=== PATIENT | female | born 1940 | race Caucasian/White ===

== ENCOUNTER 2023-03-06 11:00 | Outpatient (OUT) | payer MEDICARE, SELFPAY ==
--- NOTE | 2023-03-06 11:04 | MM_ITS ---
Patient Name: EVER BRWEER MR#: [id number] : 1940 Exam Date: 03/06/2023 Ordering Doctor: DR Branden Du D.O. RADIOLOGY REPORT PROCEDURE: MM TOMOSYNTHESIS SCREENING BI COMPARISON: MG MAMM SCREEN 3D VINNY CAD, 02/08/2022. MG MAMM SCREEN 3D VINNY CAD, 01/03/2021. MG MAMM SCREEN VINNY W CAD, 12/30/2019. MG MAMM VINNY SCRN W CAD DIG, 11/21/2012. INDICATIONS: Screening Calculator Name NCI Breast Cancer Risk Assessment Tool 5 Year Breast Cancer Risk 1.30% Lifetime Breast Cancer Risk 1.70% Personal Breast Cancer No Personal Ovarian Cancer No Treatments bowel resection Family Cancers None LOCATION: [facility] BREAST COMPOSITION: Scattered areas fibroglandular density. FINDINGS: DIAGNOSTIC CATEGORY 2--BENIGN FINDING: RIGHT BREAST: No significant suspicious finding. Scattered benign-appearing calcifications are present. No significant change has occurred. LEFT BREAST: No significant suspicious finding. Scattered benign-appearing calcifications are present. No significant change has occurred. RECOMMENDATIONS: ROUTINE MAMMOGRAM AND CLINICAL EVALUATION IN 12 MONTHS. PLEASE NOTE: A NORMAL MAMMOGRAM DOES NOT EXCLUDE THE POSSIBILITY OF BREAST CANCER. A CLINICALLY SUSPICIOUS PALPABLE LUMP SHOULD BE BIOPSIED. Dictated by: Jae Palmer M.D. on 03/06/2023 at 14:35 Approved by: Jae Palmer M.D. on 03/06/2023 at 14:39
== END 2023-03-06 11:01 | disposition home or self-care (01) ==
LOC: MAMMO 11:00
PROVIDERS: PCP Internal Medicine; Visit Provider Internal Medicine
DX: Z12.31 Encounter for screening mammogram for malignant neoplasm of breast (principal)
CPT/HCPCS: 77063; 77067

== ENCOUNTER 2023-03-26 12:15 | Outpatient (OUT) | payer MEDICARE, SELFPAY ==
--- OUTSIDE RECORDS SUMMARY | 2023-03-26 12:21 | XMS_ITS | CCD ---
Author Name Unknown Address [address] [place] [address] Organization [facility] Care Team Providers Care Specimen Processor Name Role Phone Unavailable Primary Care Provider Peter FRAGA, DR OROZCO Primary Care Unavailable MAUREEN ., ALBERTO Admitting Unavailable MAUREEN ., ALBERTO Attending Unavailable MAUREEN ., ALBERTO Consulting Unavailable FLORIAN, DR OROZCO Admitting Unavailable FLORIAN, DR OROZCO Attending Unavailable FLORIAN, DR OROZCO Consulting Unavailable FLORIAN, DR OROZCO Primary Care Unavailable CHARLES, DR JOAQUIN Canales Consulting Unavailable FLORIAN, DR OROZCO Admitting Unavailable FLORIAN, DR OROZCO Attending Unavailable FLORIAN, DR OROZCO Consulting Unavailable FLORIAN, DR OROZCO Primary Care Unavailable [place], DR KALPANA Phelps Consulting Unavailable PROVIDER, UNKNOWN Attending Unavailable PROVIDER, UNKNOWN Admitting Unavailable Florian, Branden Unavailable Allergies Allergy Classification Reported Allergen(s) Allergy Type Date of Onset Reaction(s) Facility (1 source) Penicillins Drug allergy (disorder) [address] [facility] Repository (3 sources) Substance with penicillin structure and antibacterial mechanism of action (substance) Drug allergy 4 Unknown [facility] Other Medications Current Medications Medication Drug Class(es) Dates Sig (Normalized) Sig (Original) famotidine 40 mg oral tablet (1 source) Histamine-2 Receptor Antagonist Start: 03-14-2023 take 1 tablet by mouth every twenty-four hours Famotidine 40 MG 1 tablet at bedtime Orally Once a day for 30 days Feb, Active losartan potassium 50 mg oral tablet (14 sources) Angiotensin 2 Receptor Niharika Start: 05-22-2022 take 1 tablet by mouth twice daily Losartan Potassium 50 MG 1 tablet Orally twice daily for 30 days Apr, Active Start: 05-22-2022 take 1 tablet by perez th every twenty-four hours Losartan Potassium 50 MG 1 tablet Orally qd Apr, Active Start: 05-22-2022 take 1 tablet by mouth twice d aily Losartan Potassium 25 MG 1 tablet Orally twice daily Apr, Active Start: 05-22-2022 take 1 tablet by perez th every twenty-four hours Losartan Potassium 25 MG 1 tablet Orally Once a day for 30 days Apr, Active meloxicam 15 mg oral tablet (6 sources) Nonsteroidal Anti-inflammatory Drug Start: 08-27-2022 take 1 tablet by mouth every twenty-four hours Meloxicam 15 MG 1 tablet Orally Once a day Aug, Active omeprazole 40 mg delayed release oral capsule (2 sources) Proton Pump Inhibitor Start: 02-08-2023 take 1 capsule by mouth once daily Omeprazole 40 MG 1 capsule 30 minutes before morning meal Orally Once a day for 30 days Jan, Active ondansetron 4 mg disintegrating oral tablet (14 sources) Serotonin-3 Receptor Antagonist Start: 05-04-2022 take 1 tablet by mouth every six hours as needed for nausea Ondansetron 4 MG 1Tablet Orally Every 6 hours PRN nausea for 5 days Apr, Active sulfamethoxazole 800 mg / trimethoprim 160 mg oral tablet (2 sources) Dihydrofolate Reductase Inhibitor Antibacterial, Sulfonamide Antimicrobial Start: 02-19-2023 take 1 tablet by mouth every twelve hours Sulfamethoxazol e-Trimethoprim 800-160 MG 1 tablet Orally Twice a day for 5 days Jan, Active Problems Active Problems Problem Classification Problem Date Documented Da te Episodic/Chronic Abdominal pain (14 sources) Left lower quadrant pain; Translations: [Left lower quadrant pain] Episodic Esophageal disorders (3 sources) Gastro-esophageal reflux disease with esophagitis; Translations: [Gastroesophageal reflux disease with esophagitis without hemorrhage] Chronic Essential hypertension (20 sources) Essential (primary) hypertension; Translations: [Essential hypertension] Onset: 05-21-2022 Chronic Genitourinary symptoms and ill-defined conditions (16 sources) Dysuria; Translations: [Dysuria] Episodic Hypertension with complications and secondary hypertension (1 source) Hypertensive urgency ; Translations: [Hypertensive urgency] Chronic Menopausal disorders (14 sources) Decreased estrogen level; 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 Mycoses (14 sources) Tinea corporis; Translations: [Tinea corporis] Episodic Nausea and vomiting (1 source) Nausea Episodic Other aftercare (1 source) Other terminal block assembler (current) drug therapy; Translations: [OTH [facility]DC CURRENT DRUG THERAPY] Onset: 05-22-2022 Episodic Other and unspecified benign neoplasm (13 sources) Lipoma of lower limb; Translations: [Benign lipomatous neoplasm of skin and subcutaneous tissue of right leg] Episodic Other and unspecified benign neoplasm (1 source) Benign lipomatous neoplasm of skin and subcutaneous tissue of right leg; Translations: [Lipoma of right lower extremity] Episodic Other gastrointestinal disorders (14 sources) Personal history of other diseases of the digestive system; Translations: [History of small bowel obstruction] Episodic Other lower respiratory disease (7 sources) Solitary pulmonary nodule; Translations: [SOLITARY PULMONARY NODULE] Onset: 08-11-2021 Episodic Other lower respiratory disease (12 sources) Nodule of lung; Translations: [Solitary pulmonary nodule] Episodic Other screening for suspected conditions (not mental disorders or infectious disease) (19 sources) Encounter for screening mammogram for malignant neoplasm of breast; Translations: [Screening status] Onset: 02-08-2022 Episodic Other skin disorders (14 sources) Abdominal mass; Translations: [Localized swelling, mass and lump, trunk] Episodic Pleurisy; pneumothorax; pulmonary collapse (14 sources) Secondary spontaneous pneumothorax; Translations: [Secondary spontaneous pneumothorax] Episodic Residual codes; unclassified (14 sources) History of colectomy; Translations: [Acquired absence of other specified parts of digestive tract] Episodic Screening and history of mental health and substance abuse codes (1 source) Personal history of nicotine dependence; Translations: [PERSONAL HISTORY OF NICOTINE DEPEND] Onset: 05-22-2022 Episodic Spondylosis; intervertebral disc disorders; other back problems (8 sources) Lumbar spondylosis; Translations: [Spondylosis without myelopathy or radiculopathy, lumbar region] Chronic Substance-related disorders (17 sources) Tobacco user; Translations: [Nicotine dependence, cigarettes, 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 Past or Other Problems Problem Classification Problem Date Documented Da te Episodic/Chronic Esophageal disorders (14 sources) Esophageal disorders; Translations: [Gastroesophageal reflux disease with esophagitis without hemorrhage] Unclassified (14 sources) Acute bilateral low back pain without sciatica; Translations: [Acute bilateral low back pain without sciatica] Unclassified (1 source) Acute right-sided low back pain without sciatica M54.50 Viral infection (14 sources) Disease caused by 2019-nCoV; Translations: [COVID-19] Results Test Name Value Interpretation Reference Range Facility Urinalysis - DIPSTICKon 0 Appearance (U) clear [facility] Other Bilirubin Ql (U) Negative [employer] Other Color (U) light yellow [facility] Other Glucose Ql (U) Negative [facility] Other Hemoglobin Ql (U) Negative [employer] Other Ketones Ql (U) Negative [facility] Other Leukocyte esterase Test strip Ql (U) Negative [facility] Other Nitrite Ql (U) Negative [facility] Other pH (U) 5.0 [pH] [facility] Other Protein Ql (U) Negative [facility] Other Specific gravity (U) [Rel density] 1.005 [facility] Other Urobilinogen (U) [Mass/Vol] 0.5 mg/dL [facility] Other Urinalysis - DIPSTICK [facility] Other CBC AUTO DIFFon 05-21-2022 BASO # 0.0 103/ul Normal 0.0-0.[address] [facility] Comment on above: Performed By: #### C BC #### [facility] [address] [place] [address] Dr. Arlyn Chan Basophils/100 WBC (Bld) 0.6 % Normal 0.2-2.[address] [facility] Comment on above: Performed By: #### C BC #### [facility] [address] [place] [address] Dr. Arlyn Chan EO # 0.1 103/ul Normal 0.0-0.[address] [facility] Comment on above: Performed By: #### C BC #### [facility] [address] [place] [address] Dr. Arlyn Chan Eosinophils/100 WBC (Bld) 1.1 % Normal 0.9-7.0 [facility] Comment on above: Performed By: #### C BC #### [facility] [address] [place] [address] Dr. Arlyn Chan Erythrocyte distribution width (RBC) [Ratio] 13.6 % Normal 11.0-15.0 [facility] Comment on above: Performed By: #### C BC #### [facility] [address] [place] [address] Dr. Arlyn Chan Hematocrit (Bld) [Volume fraction] 44.3 % Normal 36.0-48.0 [facility] Comment on above: Performed By: #### C BC #### [facility] [address] [place] [address] Dr. Arlyn Chan Hemoglobin (Bld) [Mass/Vol] 14.8 g/dL Normal 12.0-16.0 [facility] Comment on above: Performed By: #### C BC #### [facility] [address] [place] [address] Dr. Arlyn Chan IG # 0.00 10e3/ul Normal 0.00-0.03 [facility] Comment on above: Performed By: #### C BC #### [facility] [address] [place] [address] Dr. Arlyn Chan IG % 0.0 % Normal 0.0-0.[address] [facility] Comment on above: Performed By: #### C BC #### [facility] [address] [place] [address] Dr. Arlyn Chan LYMPH # 1.7 103/ul Normal 1.2-3.[address] [facility] Comment on above: Performed By: #### C BC #### [facility] [address] [place] [address] Dr. Arlyn Chan Lymphocytes/100 WBC (Bld) 31.1 % Normal 20.5-60.[address] [facility] Comment on above: Performed By: #### C BC #### [facility] [address] [place] [address] Dr. Arlyn Chan MANUAL DIFF REQ NO Normal [facility] Comment on above: Performed By: #### C BC #### [facility] [address] [place] [address] Dr. Arlyn Chan MCH (RBC) [Entitic mass] 31.9 pg Normal 26.7-34.0 [facility] Comment on above: Performed By: #### C BC #### [facility] [address] [place] [address] Dr. Arlyn Chan MCHC (RBC) [Mass/Vol] 33.4 g/dL Normal 29.9-35.[address] [facility] Comment on above: Performed By: #### C BC #### [facility] [address] [place] [address] Dr. Arlyn Chan MCV (RBC) [Entitic vol] 95.5 fL Normal 81.0-99.0 [facility] Comment on above: Performed By: #### C BC #### [facility] [address] [place] [address] Dr. Arlyn Chan MONO # 0.5 103/ul Normal 0.3-0.8 [facility] Comment on above: Performed By: #### C BC #### [facility] [address] [place] [address] Dr. Arlyn Chan Monocytes/100 WBC (Bld) 8.8 % Normal 1.7-12.0 [facility] Comment on above: Performed By: #### C BC #### [facility] [address] [place] [address] Dr. Arlyn Chan NEUT # 3.1 103/ul Normal 1.4-6.[address] [facility] Comment on above: Performed By: #### C BC #### [facility] [address] [place] [address] Dr. Arlyn Chan Neutrophils/100 WBC (Bld) 58.4 % Normal 43.0-75.0 [facility] Comment on above: Performed By: #### C BC #### [facility] [address] [place] [address] Dr. Arlyn Chan Platelet mean volume (Bld) [Entitic vol] 10.0 fL Normal 9.5-13.5 [facility] Comment on above: Performed By: #### C BC #### [facility] [address] [place] [address] Dr. Arlyn Chan PLT 242 103/ul Normal 150-450 [facility] Comment on above: Performed By: #### C BC #### [facility] [address] [place] [address] Dr. Arlyn Chan RBC 4.64 106/ul Normal 4.20-5.40 [facility] Comment on above: Performed By: #### C BC #### [facility] [address] [place] [address] Dr. Arlyn Chan WBC 5.4 103/ul Normal 4.0-11.0 [facility] Comment on above: Performed By: #### C BC #### [facility] [address] [place] [address] Dr. Arlyn Chan PROF CHEM 8 (BAS METB)on Anion gap [Moles/Vol] 13.9 mmol/L Normal [facility] Comment on above: Performed By: #### H YURI, BMP #### [facility] [address] [place] [address] Dr. Arlyn Chan Calcium [Mass/Vol] 9.4 mg/dL Normal 8.5-10.1 [facility] Comment on above: Performed By: #### H YURI, BMP #### [facility] [address] [place] [address] Dr. Arlyn Chan Chloride [Moles/Vol] 105 mmol/L Normal 98-107 [facility] Comment on above: Performed By: #### H YURI, BMP #### [facility] [address] [place] [address] Dr. Arlyn Chan CO2 [Moles/Vol] 24.3 mmol/L Normal 21.0-32.0 [facility] Comment on above: Performed By: #### H YURI, BMP #### [facility] [address] [address] [address] Arlyn Chan Creatinine [Mass/Vol] 0.76 mg/dL Normal 0.55-1.02 [facility] Comment on above: Performed By: #### H STROPN, BMP #### [facility] [address] [address] [address] Arlyn Chan EGFR-AF TURKMEN >60 Normal >=60 [facility] Comment on above: Performed By: #### H STROPN, BMP #### [facility] [address] [address] [address] Arlyn Chan EGFR-NON AF TURKMEN >60 Normal >=60 [facility] Comment on above: Performed By: #### H STROPN, BMP #### [facility] [address] [address] [address] Arlyn Chan Glucose [Mass/Vol] 96 mg/dL Normal 74-106 [facility] Comment on above: Performed By: #### H STROPN, BMP #### [facility] [address] [address] [address] Arlyn Chan Potassium [Moles/Vol] 4.2 mmol/L Normal 3.5-5.1 [facility] Comment on above: Performed By: #### H STROPN, BMP #### [facility] [address] [place] [address] Dr. Arlyn Chan Sodium [Moles/Vol] 139 mmol/L Normal 136-145 [facility] Comment on above: Performed By: #### H STROPN, BMP #### [facility] [address] [address] [address] Arlyn Chan Urea nitrogen [Mass/Vol] 21.0 mg/dL Critically high 7.0-18.0 [facility] Comment on above: Performed By: #### H STROPN, BMP #### [facility] [address] [address] [address] Arlyn Chan Urea nitrogen/Creatinine [Mass ratio] 27.6 mg/mg Normal [facility] Comment on above: Performed By: #### H STROPN, BMP #### [facility] [address] [address] [address] Arlyn Chan Progress Noteson 05-21-2022 Enterprise [employer] Manager Authentication Interface Message Text EMERGENCY TRIAGE, TREAT AND TRANSPORT (ET3) DOCUMENTATION OF TELEHEALTH VISIT Date / Time: 05/21/2022944 Name: Genny Barboza : 1940 SSN: (Not on file) EMS Agency: [facility] [x] Verbal consent obtained [] Implied consent - patient with potential emergency medical condition requiring assessment of capacity to refuse treatment and/or transport VITAL SIGNS: see flowsheet documentation Reason for Telehealth Visit: Chief Complaint Patient presents with Headache Hypertension History of Present Illness: This is a pleasant 81-year-old female who denies any prior past medical history. Patient states that over the weekend she noticed that her blood pressure was elevated with systolic readings in the 160s. Today she began having headache, nausea and noted her blood pressure to be in the 180 range. Prior to these events she denies any history of hypertension and has not been on medications other than vitamins. She denies any fall or hitting her head. She denies any change in vision, dizziness, difficulty speaking, numbness/tingling in the arms or legs. Additional pertinent PMHx, SocHx, FamHx: Past medical history: None Social history: Lives with who recently had a cardiac event Review of Systems: Denies the following: neck pain, back pain, dizziness, lightheadedness, cough, difficulty breathing, fever, nausea/vomiting, dysuria, leg pain or swelling, weakness. No recent falls or injury. Exam: General: Awake, no distress ENT: normocephalic, atraumatic Pulmonary: No respiratory distress Cardiovascular: Well perfused Neurologic: Oriented to person, place, time and events. Moving all extremities equally. No difficulty with speaking. Cognitively appears appropriate during our conversation Psychiatric: Appropriate. Good insight and judgement. Medical Decision Making: This is a pleasant 81-year-old female likely having hypertensive urgency since she is having headache, nausea, and elevated blood pressure. She was going to see a primary care provider, but with these symptoms at her age I recommend that she go to the emergency department as she may require laboratory evaluation and imaging the typically is not available at a park primary care physician's office. Patient declined using ambulance go to the ER, and her daughter who was present on scene will drive her the 4 minutes will take to get to the [place] [facility]. I advised her to call 911 if she is any change in her symptoms specifically of the sudden worsening of her headache, confusion, difficulty speaking, change in vision, weakness in her arms or legs. There are no further questions from the patient or the EMS team. Disposition Supported by Telehealth Assessment: ET3 transport decisions: Refused transport EMS Disposition Reported: Same ET3 Encounter Completed by: Sudheer Haro MD Normal [facility] TROPONIN, HIGH SENSITIVITYon 05-21-2022 HSTROP 5.9 pg/mL Normal 4.0-51.[address] [facility] Comment on above: Result Comment: CUT- OFF POINTS HAVE BEEN ESTABLISHED BASED ON THE FOURTH UNIVERSAL DEFINITIONS OF MYOCARDIAL INFARCTION. THE UPPER REFERENCE LIMIT (URL) OF TROPONIN, DEFINED THE 99TH PERCENTILE OF cTnI DISTRIBUTION IN A REFERENCE POPULATION, HAS BEEN CONFIRMED THE DECISION THRESHOLD FOR MA DIAGNOSIS. Performed By: #### H YURI, [facility] #### [facility] [address] [place] [address] Dr. Arlyn Chan MG MAMM SCREEN 3D VINNY CADon 02-08-2022 MG MAMM SCREEN 3D VINNY CAD Patient: GENNY BARBOZA Exam Date: 02/08/2022 : 1940 Gender:F Ordering : DR BRANDEN FRAGA D.O. Admission #: [id number] Family : Order #: [id number] CLICK HERE TO VIEW EXAM RADIOLOGY REPORT PROCEDURE: MAMMOGRAM SCREENING 3D BILATERAL CAD COMPARISON: MG MAMM SCREEN VINNY W CAD, 12/30/2019. MG MAMM SCREEN 3D VINNY CAD, 01/03/2021. INDICATIONS: Screening mammography Calculator Name NCI Breast Cancer Risk Assessment Tool 5 Year Breast Cancer Risk 1.30% Lifetime Breast Cancer Risk 1.90% Personal Breast Cancer No Personal Ovarian Cancer No Treatments bowel resection Family Cancers None LOCATION: [facility] BREAST COMPOSITION: Scattered areas fibroglandular density. FINDINGS: DIAGNOSTIC CATEGORY 2--BENIGN FINDING. NO CHANGE FROM COMPARISON. Scattered benign-appearing calcifications are present. Scattered benign-appearing lymph nodes are present. RIGHT BREAST: No significant suspicious finding. LEFT BREAST: No significant suspicious finding. RECOMMENDATIONS: ROUTINE MAMMOGRAM AND CLINICAL EVALUATION IN 12 MONTHS. PLEASE NOTE: A NORMAL MAMMOGRAM DOES NOT EXCLUDE THE POSSIBILITY OF BREAST CANCER. A CLINICALLY SUSPICIOUS PALPABLE LUMP SHOULD BE BIOPSIED. Dictated by: Kalpana Addison MD on 02/08/2022 at 14:02 Approved by: Kalpana Addison MD on 02/08/2022 at 14:06 Normal [facility] [address] CHEST WO CONon 08-11-2021 CT CHEST WO CON EXAMINATION: CT CHEST WO CON HISTORY: Solitary nodule of lung COMPARISON: CT chest 08/15/2020 TECHNIQUE: Axial, Coronal, and Sagittal images were created without the administration of IV contrast material. Dose reduction techniques were achieved by using automated exposure control and/or adjustment of mA and/or kV according to patient size and/or use of iterative reconstruction technique. FINDINGS: LUNGS: Mild emphysematous changes. Trace amount atelectasis within dependent lung bases. No suspicious nodules. Stable faint groundglass opacity in left lung apex likely scarring. Stable small fat filled hernia protruding into the posterior right lung base. PLEURA: No mass, effusion, or pneumothorax. VASCULATURE: No abnormality. GURPREET: No mass or adenopathy. MEDIASTINUM: No mass or adenopathy. CARDIAC: No enlargement or pericardial thickening. AORTA: No aneurysm or dissection. CHEST WALL: No mass or axillary adenopathy. BONES: No bone lesion or fracture. LIMITED ABDOMEN: Stable small hypodensity within posterior right hepatic lobe, likely cyst or hemangioma. Stable small left renal cyst. Limited images of the upper abdomen. OTHER: Negative. IMPRESSION: 1. Mild emphysematous changes. 2. No suspicious nodules or acute infiltrates. No additional follow-up recommended at this time. Electronically authenticated by: JOAQUIN SOTO Date: 2021-08-11 17:29 Normal [facility] Vital Signs Date Time Vital Sign Value Performing Clinician Facility 02-08-2023 13:30-0500 Body height 165.1 cm Branden Ribbon Other [facility] Other 02-08-2023 13:30-0500 Body mass index (BMI) [Ratio] 24.29 kg/m2 Branden Ribbon Other [facility] Other 02-08-2023 13:30-0500 Body weight 66.23 kg Branden Ribbon Other [facility] Other 02-08-2023 13:30-0500 Diastolic blood pressure 79 mm[Hg] Branden Ball Other [facility] Other 02-08-2023 13:30-0500 Respiratory rate 12 /min Branden Ball Other [facility] Other 02-08-2023 13:30-0500 Systolic blood pressure 128 mm[Hg] Branden Ball Other [facility] Other 08-27-2022 11:15-0400 Body height 165.1 cm Branden Ball Other [facility] Other 08-27-2022 11:15-0400 Body mass index (BMI) [Ratio] 24.06 kg/m2 Branden Ball Other [facility] Other 08-27-2022 11:15-0400 Body weight 65.59 kg Branden Ball Other [facility] Other 08-27-2022 11:15-0400 Diastolic blood pressure 83 mm[Hg] Branden Ball Other [facility] Other 08-27-2022 11:15-0400 Respiratory rate 12 /min Branden Ball Other [facility] Other 08-27-2022 11:15-0400 Systolic blood pressure 152 mm[Hg] Branden Ball Other [facility] Other 07-09-2022 15:00-0400 Body height 165.1 cm Branden Ball Other [facility] Other 07-09-2022 15:00-0400 Body mass index (BMI) [Ratio] 23.23 kg/m2 Branden Ball Other [facility] Other 07-09-2022 15:00-0400 Body weight 63.32 kg Branden Ball Other [facility] Other 07-09-2022 15:00-0400 Diastolic blood pressure 72 mm[Hg] Branden Ball Other [facility] Other 07-09-2022 15:00-0400 Respiratory rate 12 /min Branden Ball Other [facility] Other 07-09-2022 15:00-0400 Systolic blood pressure 134 mm[Hg] Branden Ball Other [facility] Other 05-21-2022 15:45-0500 Body height 165.1 cm Branden Ball Other [facility] Other 05-21-2022 15:45-0500 Body mass index (BMI) [Ratio] 24.56 kg/m2 Branden Ball Other [facility] Other 05-21-2022 15:45-0500 Body weight 66.95 kg Branden Ball Other [facility] Other 05-21-2022 15:45-0500 Diastolic blood pressure 82 mm[Hg] Branden Ball Other [facility] Other 05-21-2022 15:45-0500 Respiratory rate 12 /min Branden Ball Other [facility] Other 05-21-2022 15:45-0500 Systolic blood pressure 136 mm[Hg] Branden Ball Other [facility] Other 05-21-2022 09:45-0500 Diastolic blood pressure 92 mm[Hg] [address] 05-21-2022 09:45-0500 Heart rate 72 /[facility] 05-21-2022 09:45-0500 Respiratory rate 18 /min Et3 [facility] 05-21-2022 09:45-0500 SaO2% (BldA) [Mass fraction] 98 % Et3 [facility] 05-21-2022 09:45-0500 Systolic blood pressure 181 mm[Hg] Et3 [facility] Encounters Encounter Date Encounter Type Care Provider Facility Start: 03-14-2023 End: 03-14-2023 ambulatory Branden Fraga Other [facility] Other Start: 03-14-2023 Telephone encounter Branden Fraga [facility] Start: 02-19-2023 End: 02-19-2023 ambulatory Branden Fraga Other [facility] Other Start: 02-19-2023 Telephone encounter Branden Fraga [facility] Start: 02-08-2023 End: 02-08-2023 ambulatory Branden Fraga Other [employer] Other Start: 02-08-2023 Patient encounter procedure Branden Fraga [facility] Start: 09-20-2022 End: 09-20-2022 ambulatory Branden Fraga Other [employer] Other Start: 09-20-2022 Telephone encounter Branden Fraga [facility] Start: 08-27-2022 End: 08-27-2022 ambulatory Branden Fraga Other [employer] Other Start: 08-27-2022 Office outpatient vi sit 15 minutes Branden Fraga [facility] Start: 08-24-2022 End: 08-24-2022 ambulatory Branden Fraga Other [employer] Other Start: 08-24-2022 Nursing evaluation o f patient and report Branden Fraga [facility] Start: 07-09-2022 End: 07-09-2022 ambulatory Branden Fraga Other [employer] Other Start: 07-09-2022 Office outpatient vi sit 15 minutes Branden Florian [facility] Start: 06-12-2022 End: 06-12-2022 ambulatory Branden Fraga Other [employer] Other Start: 06-12-2022 Telephone encounter Branden Fraga [facility] Start: 06-11-2022 End: 06-11-2022 ambulatory Branden Fraga Other [employer] Other Start: 06-11-2022 Telephone encounter Branden Fraga [facility] Start: 05-22-2022 End: 05-22-2022 ambulatory Branden Fraga Other [employer] Other Start: 05-22-2022 Telephone encounter Branden Fraga [facility] Start: 05-21-2022 Office outpatient vi sit 15 minutes Branden Fraga [facility] Start: 05-21-2022 End: 05-23-[address] BRANDEN FRAGA Facility:[facility]1 Start: 05-21-2022 End: 05-21-2022 ambulatory [facility] Start: 05-21-2022 End: 05-21-2022 Emergency department [facility] Comment on above: Arrived Start: 05-04-2022 End: 05-04-2022 ambulatory Branden Fraga Other [employer] Other Start: 05-04-2022 Telephone encounter Branden Fraga [facility] Start: 05-03-2022 End: 05-03-2022 ambulatory Branden Fraga Other [employer] Other Start: 05-03-2022 Telephone encounter Branden Fraga [facility] Start: 02-08-2022 End: 02-09-[address] BRANDEN FRAGA Facility:[facility] Start: 08-11-2021 End: 08-12-[address] BRANDEN FRAGA Facility:[facility] Plan of Treatment Date Care Activity Detail Author Start: 12-23-2021 Influenza vaccination Influenza Vacc ine (#1) [facility] Start: 2005 Pneumococcal vaccination Pneum ococcal Vaccine(s) (65+ yrs) (1 - PCV) [facility] Start: 2005 Screening for osteoporosis Bone Dens itometry [facility] Start: 1990 Shingles (RZV) Vacci ne (1 of 2) Shingles (RZV) Vaccine (1 of 2) [facility] Start: 1958 Tetanus + diphtheria + acellular pertussis vaccine (product) Tdap Booster [facility] Start: [birth year]24-1941 COVID-19 Vaccine (#1) COVID-19 Vacci ne (#1) [facility] Start: 1940 Basic metabolic 2000 panel - Serum or Plasma Basic Metabolic Panel [facility] Immunizations Immunization Date Immunization Notes Care Provider Fa cili 12-13-2021 influenza virus vaccine, split virus (incl. purified surface antigen) Branden Fraga Other [employer] Other 12-14-2020 influenza virus vaccine, split virus (incl. purified surface antigen) Branden Fraga Other [employer] Other 12-04-2019 influenza virus vaccine, split virus (incl. purified surface antigen) Branden Fraga Other [employer] Other 12-16-2018 influenza virus vaccine, split virus (incl. purified surface antigen) Branden Fraga Other [employer] Other 01-15-2018 influenza virus vaccine, split virus (incl. purified surface antigen) Branden Fraga Other [employer] Other 01-12-2017 influenza virus vaccine, split virus (incl. purified surface antigen) Branden Fraga Other [employer] Other 12-27-2015 influenza virus vaccine, split virus (incl. purified surface antigen) Branden Fraga Other [employer] Other 01-28-2015 pneumococcal conjuga te vaccine, 13 valent Branden Fraga Other [employer] Other Payers Date Payer Category Payer Unknown SP/UNINSURED PEN DING FINANCIAL PROGRAM EVALUATION [id number] 2022-Present [phone] [address] [place] [address] Other [id number] 2022 Unknown [id number] 1959 Medicare [id number] 1959 Unknown [id number] 1940 Unknown [id number] 1940 Unknown [id number] 1940 Unknown [id number] 1940 Unknown [id number] Social History Date Type Detail Facility Tobacco smoking status [facility] Tobacco smoking consumption unknown [facility] Start: 1940 Sex Assigned At [facility] Sex Assigned At Sex Assigned At Bir th [employer] Other Clinical Notes 05-04-2022 to 03-14-2023 Note Date & Type Note Facility 03-14-2023 Evaluation note Encounter Date Diagnosis Assessment Notes Feb, Gastroesophageal reflux disease with esophagitis without hemorrhage (ICD-10 - K21.00) [employer] Other 11-28-2023 Evaluation note* Encounter Date Diagnosis Assessment Notes Treatment Notes Treatment Clinical Notes Jan, Dysuria (ICD-10 - R30.0) [employer] Other 11-17-2023 Evaluation note* Encounter Date Diagnosis Assessment Notes Treatment Notes Treatment Clinical Notes Jan, Medicare annual wellness visit, subsequent (ICD-10 - Z00.00) Personalized health advice was given to the beneficiary including a written plan for screenings discussed and provided. Advanced care planning reviewed and/or information given as requested. Additional counseling was provided here today in regards to, [ ]. The above visit was performed by [ ], under direct supervision of [ ]. Document reviewed and amended by provider signed below. Jan, Primary hypertension (ICD-10 - I10) This patient is instructed to consume a healthy, low-fat, low-salt diet. They are also encouraged to continue exercise to achieve/maintain a normal BMI. Jan, Lumbar spondylosis (ICD-10 - M47.816) The patient is instructed to avoid bending, twisting or lifting. They are to use intermittent heat and ice as needed. They may schedule a massage or gentle manipulation. They may safely use Tylenol as needed. Jan, Pulmonary nodule (ICD-10 - R91.1) Resolved after several scans No further scans necessary Jan, Gastroesophageal reflux disease with esophagitis without hemorrhage (ICD-10 - K21.00) Diet instructions: Smaller portions, avoid eating and laying flat, avoid eating or drinking prior to bedtime. Weight loss. INitiate PPI and take for 3mo after which can change to Pepcid Jan, Nicotine dependence, cigarettes, in remission (ICD-10 - F17.211) Contionued abstinence Jan, Screening mammogram for breast cancer (ICD-10 - Z12.31) Instructed patient on monthly SBE and yearly mammograms. [employer] Other 06-29-2023 Evaluation note* Encounter Date Diagnosis Assessment Notes Treatment Notes Treatment Clinical Notes Aug, Primary hypertension (ICD-10 - I10) [employer] Other 06-05-2023 Evaluation note* Encounter Date Diagnosis Assessment Notes Treatment Notes Treatment Clinical Notes Aug, Acute right-sided low back pain without sciatica (ICD-10 - M54.50) The patient is instructed to avoid bending, twisting or lifting. They are to use intermittent heat and ice as needed. They may schedule a massage or gentle manipulation. They may safely use Tylenol as needed. Discussed alternative treatment, including PT Call office w/ increased back pain, abdominal pain/bloating, N/V, change in bowel/bladder function or fever Aug, Lumbar spondylosis (ICD-10 - M47.816) Stretching daily, avoid lifting, bending or twisting. Aug, Primary hypertension (ICD-10 - I10) This patient is instructed to consume a healthy, low-fat, low-salt diet. They are also encouraged to continue exercise to achieve/maintain a normal BMI. Patient is instructed on home BP measurements: - rest for 5 minutes w/o talking- positioned w/ feet on floor and arm supported- average best 2/3 readings w/ goal < 135-85 [employer] Other 06-02-2023 Evaluation note* Encounter Date Diagnosis Assessment Notes Treatment Notes Treatment Clinical Notes Aug, Dysuria (ICD-10 - R30.0) [employer] Other 04-17-2023 Evaluation note* Encounter Date Diagnosis Assessment Notes Treatment Notes Treatment Clinical Notes Jun, Primary hypertension (ICD-10 - I10) This patient is instructed to consume a healthy, low-fat, low-salt diet. They are also encouraged to continue exercise to achieve/maintain a normal BMI. Jun, Nicotine dependence, cigarettes, in remission (ICD-10 - F17.211) Continue abstinence [employer] Other 03-21-2023 Evaluation note* Encounter Date Diagnosis Assessment Notes Treatment Notes Treatment Clinical Notes May, Primary hypertension (ICD-10 - I10) [employer] Other 03-20-2023 Evaluation note* Encounter Date Diagnosis Assessment Notes Treatment Notes Treatment Clinical Notes May, Primary hypertension (ICD-10 - I10) [employer] Other 02-28-2023 Evaluation note* Encounter Date Diagnosis Assessment Notes Treatment Notes Treatment Clinical Notes Apr, Primary hypertension (ICD-10 - I10) [employer] Other 02-27-2023 Evaluation note* Encounter Date Diagnosis Assessment Notes Treatment Notes Treatment Clinical Notes Apr, Primary hypertension (ICD-10 - I10) This patient is instructed to consume a healthy, low-fat, low-salt diet. They are also encouraged to continue exercise to achieve/maintain a normal BMI. Monitor at home and update office in couple days Apr, Gastroesophageal ref lux disease with esophagitis without hemorrhage (ICD-10 - K21.00) Diet instructions: Smaller portions, avoid eating and laying flat, avoid eating or drinking prior to bedtime. Weight loss. Apr, Nicotine dependence, cigarettes, in remission (ICD-10 - F17.211) Continue abstinence Apr, Other [employer] Other 02-27-2023 History of Present illness Narrative* Sudheer Haro MD - 05/21/2022 10:00 AM EST Images from the original note were not included. EMERGENCY TRIAGE, TREAT AND TRANSPORT (ET3) DOCUMENTATION OF TELEHEALTH VISIT Date / Time: 05/21/2022944 Name: Genny Barboza : 1940 SSN: (Not on file) EMS Agency: [facility] [x] Verbal consent obtained [] Implied consent - patient with potential emergency medical condition requiring assessment of capacity to refuse treatment and/or transport VITAL SIGNS: see flowsheet documentation Reason for Telehealth Visit: Chief Complaint Patient presents with Headache Hypertension History of Present Illness: This is a pleasant 81-year-old female who denies any prior past medical history. Patient states that over the weekend she noticed that her blood pressure was elevated with systolic readings in the 160s. Today she began having headache, nausea and noted her blood pressure to be in the 180 range. Prior to these events she denies any history of hypertension and has not been on medications other thanvitamins. She denies any fall or hitting her head. She denies any change in vision, dizziness, difficulty speaking, numbness/tingling in the arms or legs. Additional pertinent PMHx, SocHx, FamHx: Past medical history: None Social history: Lives with who recently had a cardiac event Review of Systems: Denies the following: neck pain, back pain, dizziness, lightheadedness, cough, difficulty breathing, fever, nausea/vomiting, dysuria, leg pain or swelling, weakness. No recent falls or injury. Exam: General: Awake, no distress ENT: normocephalic, atraumatic Pulmonary: No respiratory distress Cardiovascular: Well perfused Neurologic: Oriented to person, place, time and events. Moving all extremities equally. No difficulty with speaking. Cognitively appears appropriate during our conversation Psychiatric: Appropriate. Good insight and judgement. Medical Decision Making: This is a pleasant 81-year-old female likely having hypertensive urgency since she is having headache, nausea, and elevated blood pressure. She was going to see a primary care provider, but with these symptoms at her age I recommend that she go to the emergency department as she may require laboratory evaluation and imaging the typically is not available at a [place] primary care physician's office.Patient declined using ambulance go to the ER, and her daughter who was present on scene will driveher the 4 minutes will take to get to the [place] ER. I advised her to call 911 if she is any change in her symptoms specifically of the sudden worsening of her headache, confusion, difficulty speaking, change in vision, weakness in her arms or legs. There are no further questions from the patientor the EMS team. Disposition Supported by Telehealth Assessment: ET3 transport decisions: Refused transport EMS Disposition Reported: Same ET3 Encounter Completed by: Sudheer Haro MD documented in this [id number] Evaluation note* Encounter Date Diagnosis Assessment Notes Treatment Notes Treatment Clinical Notes Apr, Nausea (ICD-10 - R11.0) Merged With [facility] [employer] Other Evaluation note* Diagnosis Hypertensive urgency- Primary [facility] [employer] Other History general Narrative - Reported* Type Description Date Medical History Dysuria Medical History Lipoma of right lower extremity Medical History Secondary spontaneous pneumothor ax Medical History Nicotine dependence, cigarettes, in remission Medical History Abdominal wall mass Medical History Gastroesophageal ref lux disease with esophagitis without hemorrhage Medical History Abdominal pain, left lower quadr ant Medical History Acute bilateral low back pain without sciatica Medical History History of small bowel obstructi on Medical History Pulmonary nodule Medical History Estrogen deficiency Medical History Tinea corporis Medical History COVID Medical History MUSCLE MASS Surgical History COLONOSCOPY 1996,2000,2003, 2006,2011 Surgical History EXPLORATORY LAP, LYSIS OF ADHES IONS Surgical History RECTOVAGINAL FISTULA REPIAR Surgical History HAYLEY Surgical History COLON RESECTION Surgical History CYSTOSCOPY Hospitalization History SEE SURGICAL [facility] [employer] [employer] Other Summary Purpose Family History No Family History Records FoundNo Family History Records Found Advance Directives No Advanced Directives Records FoundNo Advanced Directives Records Found Additional Source Comments Reason for Visit (unrecogniz ed section and content) Clinical Reason Comments Headache Hypertension INFORMATION SOURCE (unrecogn ized section and content) DATE CREATED AUTHOR 05/23/2022 [facility] DATE CREATED AUTHOR AUTHOR'S ORGANIZ ATION 05/25/2022 [employer] FOR RECORDS PERTAINING TO PATIENTS WHO ARE OR HAVE BEEN ENROLLED IN A CHEMICAL DEPENDENCY/SUBSTANCEABUSE PROGRAM, SOME INFORMATION MAY BE OMITTED. This clinical summary was aggregated from multiple sources. Caution should be exercised in using it in the provision of clinical care. This summary normalizes information from multiple sources, and as a consequence, information in this document may materially change the coding, format and clinical context of patient data. In addition, data may be omitted in some cases. CLINICAL DECISIONS SHOULD BE BASED ON THE PRIMARY CLINICAL RECORDS. [employer] [facility]. provides no warranty or guarantee of the accuracy or completeness of information in this document.
[2023-03-26 12:35] LABS: Basophils Percent Auto 0.6 % (0.2-2.0); Eosinophils Absolute Auto 0.1 10^3/uL (0.0-0.7); Eosinophils Percent Auto 0.9 % (0.9-7.0); Hematocrit 42.7 % (36.0-48.0); Hemoglobin 13.7 g/dL (12.0-16.0); Immature Granulocytes Abs Auto 0.02 10^3/uL (0.00-0.03); Immature Granulocytes Pct Auto 0.4 % (0.0-0.5); Lymphocytes Absolute Auto 1.5 10^3/uL (1.2-3.8); Lymphocytes Percent Auto 27.2 % (20.5-60.0); Mean Corpuscular HGB Conc 32.1 g/dL (29.9-35.2); Mean Corpuscular Hemoglobin 32.5 pg (26.7-34.0); Mean Corpuscular Volume 101.2 fL (81.0-99.0); Mean Platelet Volume 9.3 fL (9.5-13.5); Monocytes Absolute Auto 0.8 10^3/uL (0.3-0.8); Monocytes Percent Auto 14.7 % (1.7-12.0); Neutrophils Percent Auto 56.2 % (43.0-75.0); Platelet Count 243 10^3/uL (150-450); Red Blood Count 4.22 10^6/uL (4.20-5.40); Red Cell Distribution Width 13.1 % (11.0-15.0); White Blood Count 5.4 10^3/uL (4.0-11.0)
[2023-03-26 12:43] LABS: Erythrocyte Sedimentation Rate 14 mm/hr (<=30)
[2023-03-26 15:49] LABS: Anion Gap 14.3; BUN Creatinine Ratio 22.4; Calcium 9.8 mg/dL (8.5-10.1); Carbon Dioxide 22.8 mmol/L (21.0-32.0); Chloride 105 mmol/L (98-107); Estimated GFR (African America >60 (>=60); Estimated GFR (Non-African Ame >60 (>=60); Glucose 94 mg/dL (74-106); Potassium 4.1 mmol/L (3.5-5.1); Sodium 138 mmol/L (136-145); Thyroid Stimulating Hormone 1.267 uIU/mL (0.358-3.740)
== END 2023-03-26 12:16 | disposition home or self-care (01) ==
LOC: LAB 12:18
PROVIDERS: PCP Internal Medicine; Visit Provider Internal Medicine
DX: R19.7 Diarrhea, unspecified (principal); I10 Essential (primary) hypertension; R53.83 Other fatigue
CPT/HCPCS: 36415; 80048; 84443; 85025; 85652

== ENCOUNTER 2023-04-12 12:36 | Outpatient (OUT) | payer MEDICARE, SELFPAY ==
--- OUTSIDE RECORDS SUMMARY | 2023-04-12 12:39 | XMS_ITS | CCD ---
Author Name Unknown Address [address] [place] [address] Organization [facility] Care Team Providers Care Gore Cutter Name Role Phone Unavailable Primary Care Provider [...] Unavailable FLORIAN, DR OROZCO Primary Care Unavailable MUSKEGON, DR KALPANA [employer] Unavailable PROVIDER, UNKNOWN Attending Unavailable PROVIDER, UNKNOWN Admitting Unavailable Florian, Branden Unavailable Allergies Allergy Classification Reported Allergen(s) Allergy Type Date of Onset Reaction(s) Facility (1 source) Penicillins Drug allergy (disorder) [address] [facility] Repository (7 sources) Substance with penicillin structure and antibacterial mechanism of action (substance) Drug allergy 4 Unknown [facility] Other Medications Current Medications Medication Drug Class(es) Dates Sig (Normalized) Sig (Original) famotidine 40 mg oral tablet (5 sources) Histamine-2 Receptor Antagonist Start: 03-14-2023 take 1 tablet by mouth every twenty-four hours Famotidine 40 MG 1 tablet at bedtime Orally Once a day for 30 days Feb, Active hyoscyamine sulfate 0.125 mg sublingual tablet (2 sources) Start: 04-01-2023 Levsin/SL 0.125 MG 1 tablet under the tongue and allow to dissolve as needed Sublingual before meals and HS for 10 days Mar, Active losartan potassium 50 mg oral tablet (18 sources) Angiotensin 2 Receptor Niharika Start: 02-28-2023 take 1 tablet by mouth twice daily [...] Apr, Active meloxicam 15 mg oral tablet (10 sources) Nonsteroidal Anti-inflammatory Drug Start: 08-27-2022 take [...] Active ondansetron 4 mg disintegrating oral tablet (18 sources) Serotonin-3 Receptor Antagonist Start: 05-04-2022 take 1 tablet by mouth every six hours as needed for nausea Ondansetron 4 MG 1Tablet Orally Every 6 hours PRN nausea for 5 days Apr, Active sulfamethoxazole 800 mg / trimethoprim 160 mg oral tablet (6 sources) Dihydrofolate Reductase Inhibitor Antibacterial, Sulfonamide Antimicrobial Start: 02-19-2023 take 1 tablet by mouth every twelve hours Sulfamethoxazol e-Trimethoprim 800-160 MG 1 tablet Orally Twice a day for 5 days Jan, Active Problems Active Problems Problem Classification Problem Date Documented Da te Episodic/Chronic Abdominal pain (19 sources) Left lower quadrant pain; Translations: [Left lower quadrant pain] Episodic Esophageal disorders (7 sources) Gastro-esophageal reflux disease with esophagitis; Translations: [Gastroesophageal reflux disease with esophagitis without hemorrhage] Chronic Essential hypertension (20 sources) Essential (primary) hypertension; Translations: [Essential hypertension] Onset: 05-21-2022 Chronic Genitourinary symptoms and ill-defined conditions (20 sources) Dysuria; Translations: [Dysuria] Episodic Hypertension with complications and secondary hypertension (1 source) Hypertensive urgency ; Translations: [Hypertensive urgency] Chronic Malaise and fatigue (1 source) Other fatigue Episodic Menopausal disorders (18 sources) Decreased estrogen level; 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 Mycoses (18 sources) Tinea corporis; Translations: [Tinea corporis] Episodic Nausea and vomiting (1 source) Nausea Episodic Other aftercare (1 source) Other intermediate designer (current) drug therapy; Translations: [OTH [facility] CURRENT DRUG THERAPY] Onset: 05-22-2022 Episodic Other and unspecified benign neoplasm (17 sources) Lipoma of lower limb; Translations: [Benign lipomatous neoplasm of skin and subcutaneous tissue of right leg] Episodic Other and unspecified benign neoplasm (1 source) Benign lipomatous neoplasm of skin and subcutaneous tissue of right leg; Translations: [Lipoma of right lower extremity] Episodic Other gastrointestinal disorders (2 sources) Irritable bowel syndrome; Translations: [Irritable bowel syndrome without diarrhea] Chronic Other gastrointestinal disorders (1 source) Irritable bowel syndrome without diarrhea Chronic Other gastrointestinal disorders (18 sources) Personal history of other diseases of the digestive system; Translations: [History of small bowel obstruction] Episodic Other gastrointestinal disorders (2 sources) Diarrhea, unspecified Episodic Other lower respiratory disease (7 sources) Solitary pulmonary nodule; Translations: [SOLITARY PULMONARY NODULE] Onset: 08-11-2021 Episodic Other lower respiratory disease (16 sources) Nodule of lung; Translations: [Solitary pulmonary nodule] Episodic Other screening for suspected conditions (not mental disorders or infectious disease) (20 sources) Encounter for screening mammogram for malignant neoplasm of breast; Translations: [Screening status] Onset: 02-08-2022 Episodic Other skin disorders (18 sources) Abdominal mass; Translations: [Localized swelling, mass and lump, trunk] Episodic Pleurisy; pneumothorax; pulmonary collapse (18 sources) Secondary spontaneous pneumothorax; Translations: [Secondary spontaneous pneumothorax] Episodic Residual codes; unclassified (18 sources) History of colectomy; Translations: [Acquired absence of other specified parts of digestive tract] Episodic Residual codes; unclassified (1 source) Acquired absence of other specified parts of digestive tract Episodic Screening and history of mental health and substance abuse codes (1 source) Personal history of nicotine dependence; Translations: [PERSONAL HISTORY OF NICOTINE DEPEND] Onset: 05-22-2022 Episodic Spondylosis; intervertebral disc disorders; other back problems (12 sources) Lumbar spondylosis; Translations: [Spondylosis without myelopathy or radiculopathy, lumbar region] Chronic Substance-related disorders (20 sources) Tobacco user; Translations: [Nicotine dependence, cigarettes, 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 Past or Other Problems Problem Classification Problem Date Documented Da te Episodic/Chronic Esophageal disorders (14 sources) Esophageal disorders; Translations: [Gastroesophageal reflux disease with esophagitis without hemorrhage] Unclassified (18 sources) Acute bilateral low back pain without sciatica; Translations: [Acute bilateral low back pain without sciatica] Unclassified (1 source) Acute right-sided low back pain without sciatica M54.50 Viral infection (18 sources) Disease caused by 2019-nCoV; Translations: [COVID-19] Results Test Name Value Interpretation Reference Range Facility Urinalysis - DIPSTICKon Appearance (U) clear [facility] [employer] Other Bilirubin Ql (U) Negative [facility] Other Color (U) light yellow [facility] Other Glucose Ql (U) Negative [employer] Other Hemoglobin Ql (U) Negative [facility] Other Ketones Ql (U) Negative [facility] [employer] Other Leukocyte esterase Test strip Ql (U) Negative [facility] Other Nitrite Ql (U) Negative [facility] [employer] Other pH (U) 5.0 [pH] [facility] Other Protein Ql (U) Negative [facility] Other Specific gravity (U) [Rel density] 1.005 [facility] Other Urobilinogen (U) [Mass/Vol] 0.5 mg/dL [facility] Other Urinalysis - DIPSTICK [facility] Other CBC AUTO DIFFon 05-21-2022 BASO # 0.0 103/ul Normal 0.0-0.[address] [facility] Comment on above: Performed By: #### C BC #### [facility] [address] [address] [address] Arlyn Chan Basophils/100 WBC (Bld) 0.6 % Normal 0.2-2.0 [facility] Comment on above: Performed By: #### C BC #### [facility] [address] [address] [address] Arlyn Chan EO # 0.1 103/ul Normal 0.0-0.[address] [facility] Comment on above: Performed By: #### C BC #### [facility] [address] [place] [address] Dr. Arlyn Chan Eosinophils/100 WBC (Bld) 1.1 % Normal 0.9-7.0 [facility] Comment on above: Performed By: #### C BC #### [facility] [address] [place] [address] Dr. Arlyn Chan Erythrocyte distribution width (RBC) [Ratio] 13.6 % Normal 11.0-15.0 [facility] Comment on above: Performed By: #### C BC #### [facility] [address] [place] [address] Dr. Arlyn Chan Hematocrit (Bld) [Volume fraction] 44.3 % Normal 36.0-48.0 [facility] Comment on above: Performed By: #### C BC #### [facility] [address] [place] [address] Dr. Arlyn Chan Hemoglobin (Bld) [Mass/Vol] 14.8 g/dL Normal 12.0-16.0 [facility] Comment on above: Performed By: #### C BC #### [facility] [address] [place] [address] Dr. Arlyn Chan IG # 0.00 10e3/ul Normal 0.00-0.03 [facility] Comment on above: Performed By: #### C BC #### [facility] [address] [place] [address] Dr. Arlyn Chan IG % 0.0 % Normal 0.0-0.[address] [facility] Comment on above: Performed By: #### C BC #### [facility] [address] [place] [address] Dr. Arlyn Chan LYMPH # 1.7 103/ul Normal 1.2-3.8 [facility] Comment on above: Performed By: #### C BC #### [facility] [address] [place] [address] Dr. Arlyn Chan Lymphocytes/100 WBC (Bld) 31.1 % Normal 20.5-60.0 [facility] Comment on above: Performed By: #### C BC #### [facility] [address] [place] [address] Dr. Arlyn Chan MANUAL DIFF REQ NO Normal [facility] Comment on above: Performed By: #### C BC #### [facility] [address] [place] [address] Dr. Arlyn Chan MCH (RBC) [Entitic mass] 31.9 pg Normal 26.7-34.0 [facility] Comment on above: Performed By: #### C BC #### [facility] [address] [place] [address] Dr. Arlyn Chan MCHC (RBC) [Mass/Vol] 33.4 g/dL Normal 29.9-35.2 [facility] Comment on above: Performed By: #### C BC #### [facility] [address] [place] [address] Dr. Arlyn Chan MCV (RBC) [Entitic vol] 95.5 fL Normal 81.0-99.0 [facility] Comment on above: Performed By: #### C BC #### [facility] [address] [place] [address] Dr. Arlyn Chan MONO # 0.5 103/ul Normal 0.3-0.[address] [facility] Comment on above: Performed By: #### C BC #### [facility] [address] [place] [address] Dr. Arlyn Chan Monocytes/100 WBC (Bld) 8.8 % Normal 1.7-12.0 [facility] Comment on above: Performed By: #### C BC #### [facility] [address] [place] [address] Dr. Arlyn Chan NEUT # 3.1 103/ul Normal 1.4-6.5 [facility] Comment on above: Performed By: #### C BC #### [facility] [address] [place] [address] Dr. Arlyn Chan Neutrophils/100 WBC (Bld) 58.4 % Normal 43.0-75.0 [facility] Comment on above: Performed By: #### C BC #### [facility] [address] [place] [address] Dr. Arlyn Chan Platelet mean volume (Bld) [Entitic vol] 10.0 fL Normal 9.5-13.5 [facility] Comment on above: Performed By: #### C BC #### [facility] [address] [place] [address] Dr. Arlyn Chan PLT 242 103/ul Normal 150-450 [facility] Comment on above: Performed By: #### C BC #### [facility] [address] [place] [address] Dr. Arlyn Chan RBC 4.64 106/ul Normal 4.20-5.40 [facility] Comment on above: Performed By: #### C BC #### [facility] [address] [place] [address] Dr. Arlyn Chan WBC 5.4 103/ul Normal 4.0-11.0 [facility] Comment on above: Performed By: #### C BC #### [facility] [address] [place] [address] Dr. Arlyn Chan PROF CHEM 8 (BAS METB)on Anion gap [Moles/Vol] 13.9 mmol/L Normal [facility] Comment on above: Performed By: #### H YURI, BMP #### [facility] [address] [place] [address] Dr. Arlyn Chan Calcium [Mass/Vol] 9.4 mg/dL Normal 8.5-10.1 [facility] Comment on above: Performed By: #### H YURI, BMP #### [facility] [address] [address] [address] Arlyn Chan Chloride [Moles/Vol] 105 mmol/L Normal 98-107 [facility] Comment on above: Performed By: #### H STROPN, BMP #### [facility] [address] [address] [address] Arlyn Chan CO2 [Moles/Vol] 24.3 mmol/L Normal 21.0-32.0 [facility] Comment on above: Performed By: #### H STROPN, BMP #### [facility] [address] [address] [address] Arlyn Chan Creatinine [Mass/Vol] 0.76 mg/dL Normal 0.55-1.02 [facility] Comment on above: Performed By: #### H STROPN, BMP #### [facility] [address] [address] [address] Arlyn Chan EGFR-AF KUWAITI >60 Normal >=60 [facility] Comment on above: Performed By: #### H STROPN, BMP #### [facility] [address] [address] [address] Arlyn Chan EGFR-NON AF KUWAITI >60 Normal >=60 [facility] Comment on above: Performed By: #### H STROPN, BMP #### [facility] [address] [address] [address] Arlyn Chan Glucose [Mass/Vol] 96 mg/dL Normal 74-106 [facility] Comment on above: Performed By: #### H STROPN, BMP #### [facility] [address] [address] [address] Arlyn Chan Potassium [Moles/Vol] 4.2 mmol/L Normal 3.5-5.[address] [facility] Comment on above: Performed By: #### H STROPN, BMP #### [facility] [address] [address] [address] Arlyn Chan Sodium [Moles/Vol] 139 mmol/L Normal 136-145 [facility] Comment on above: Performed By: #### H STROPN, BMP #### [facility] [address] [place], [place] [address] Dr. Arlyn Chan Urea nitrogen [Mass/Vol] 21.0 mg/dL Critically high 7.0-18.0 [facility] Comment on above: Performed By: #### H YURI, BMP #### [facility] [address] [place], [place] [address] Dr. Arlyn Chan Urea nitrogen/Creatinine [Mass ratio] 27.6 mg/mg Normal [facility] Comment on above: Performed By: #### H YURI, BMP #### [facility] [address] [place], [place] [address] Dr. Arlyn Chan Progress Noteson 05-21-2022 Operations Technician Authentication Interface Message Text EMERGENCY TRIAGE, TREAT AND TRANSPORT (ET3) DOCUMENTATION OF TELEHEALTH VISIT Date / Time: 05/21/2022944 Name: Genny Barboza : 1940 SSN: (Not on file) EMS Agency: [facility] [x] Verbal consent obtained [...] the typically is not available at a [place] primary care physician's office. Patient declined using ambulance go to the ER, and her daughter who was present on scene will drive her the 4 minutes will take to get to the [place] [facility]. I advised her to call 911 [...] Completed by: Sudheer Haro MD Normal [facility] TROPONIN, HIGH SENSITIVITYon 05-21-2022 HSTROP 5.9 pg/mL Normal 4.0-51.[address] [facility] Comment on above: Result Comment: CUT- OFF POINTS HAVE BEEN ESTABLISHED BASED ON THE FOURTH UNIVERSAL DEFINITIONS OF MYOCARDIAL INFARCTION. THE UPPER REFERENCE LIMIT (URL) OF TROPONIN, DEFINED THE 99TH PERCENTILE OF cTnI DISTRIBUTION IN A REFERENCE POPULATION, HAS BEEN CONFIRMED THE DECISION THRESHOLD FOR RI DIAGNOSIS. Performed By: #### H YURI, [facility] #### [facility] [address] [address] [address] Arlyn Chan MG MAMM SCREEN 3D VINNY CADon 02-08-2022 MG MAMM SCREEN 3D VINNY CAD Patient: GENNY BARBOZA Exam Date: 02/08/2022 : 1940 Gender:F Ordering : DR BRANDEN FRAGA D.O. Admission #: [id number] Family : Order #: [id number] CLICK HERE TO VIEW EXAM RADIOLOGY REPORT [...] bowel resection Family Cancers None LOCATION: [facility] BREAST COMPOSITION: Scattered areas fibroglandular density. [...] Addison MD on 02/08/2022 at 14:06 Normal [facility] CT CHEST WO CONon 08-11-2021 [...] by: JOAQUIN SOTO Date: 2021-08-11 17:29 Normal [facility] Vital Signs Date Time Vital Sign Value Performing Clinician Facility 03-26-2023 11:30-0500 Body height 165.1 cm Branden Ball Other [facility] Other 03-26-2023 11:30-0500 Body mass index (BMI) [Ratio] 24.89 kg/m2 Branden Ball Other [facility] Other 03-26-2023 11:30-0500 Body weight 67.86 kg Branden Ball Other [facility] Other 03-26-2023 11:30-0500 Diastolic blood pressure 82 mm[Hg] Branden Ball Other [facility] Other 03-26-2023 11:30-0500 Respiratory rate 12 /min Branden Ball Other [facility] Other 03-26-2023 11:30-0500 Systolic blood pressure 192 mm[Hg] Branden Ball Other [facility] Other 02-08-2023 13:30-0500 Body height 165.1 cm Branden Ball Other [facility] Other 02-08-2023 13:30-0500 Body mass index (BMI) [Ratio] 24.29 kg/m2 Branden Ball Other [facility] Other 02-08-2023 13:30-0500 Body weight 66.23 kg Branden Ball Other [facility] Other 02-08-2023 13:30-0500 Diastolic blood pressure 79 mm[Hg] Branden Ball Other [facility] Other 02-08-2023 13:30-0500 Respiratory rate 12 /min Branden Ball Other [facility] Other 02-08-2023 13:30-0500 Systolic blood pressure 128 mm[Hg] Branden Ball Other [facility] Other 08-27-2022 11:15-0400 Body height 165.1 cm Branden Ball Other [facility] Other 08-27-2022 11:15-0400 Body mass index (BMI) [Ratio] 24.06 kg/m2 Branden Ball Other [facility] Other 08-27-2022 11:15-0400 Body weight 65.59 kg Branden Ball Other [facility] Other 08-27-2022 11:15-0400 Diastolic blood pressure 83 mm[Hg] Branden Ball Other [facility] Other 08-27-2022 11:15-0400 Respiratory rate 12 /min Branden Ball Other [facility] Other 08-27-2022 11:15-0400 Systolic blood pressure 152 mm[Hg] Branden Ball Other [facility] Other 07-09-2022 15:00-0400 Body height 165.1 cm Branden Ball Other [facility] Other 07-09-2022 15:00-0400 Body mass index (BMI) [Ratio] 23.23 kg/m2 Branden Ball Other [facility] Other 07-09-2022 15:00-0400 Body weight 63.32 kg Branden Ball Other [facility] Other 07-09-2022 15:00-0400 Diastolic blood pressure 72 mm[Hg] Branden Ball Other [facility] Other 07-09-2022 15:00-0400 Respiratory rate 12 /min Branden Ball Other [facility] Other 07-09-2022 15:00-0400 Systolic blood pressure 134 mm[Hg] Branden Ball Other [facility] Other 05-21-2022 15:45-0500 Body height 165.1 cm Branden Ball Other [facility] Other 05-21-2022 15:45-0500 Body mass index (BMI) [Ratio] 24.56 kg/m2 Branden Ball Other [facility] Other 05-21-2022 15:45-0500 Body weight 66.95 kg Branden Ball Other [facility] Other 05-21-2022 15:45-0500 Diastolic blood pressure 82 mm[Hg] Branden Ball Other [facility] Other 05-21-2022 15:45-0500 Respiratory rate 12 /min Branden Ball Other [facility] Other 05-21-2022 15:45-0500 Systolic blood pressure 136 mm[Hg] Branden Ball Other [facility] Other 05-21-2022 09:45-0500 Diastolic blood pressure 92 mm[Hg] [facility] 05-21-2022 09:45-0500 Heart rate 72 /min [facility] 05-21-2022 09:45-0500 Respiratory rate 18 /min [facility] 05-21-2022 09:45-0500 SaO2% (BldA) [Mass fraction] 98 % [facility] 05-21-2022 09:45-0500 Systolic blood pressure 181 mm[Hg] [facility] Encounter Date Encounter Type Care Provider Facility Start: 04-08-2023 End: 04-08-2023 ambulatory Branden Fraga Other [facility] Other Start: 04-08-2023 Telephone encounter Branden Fraga [facility] Start: 04-01-2023 End: 04-01-2023 ambulatory Branden Fraga Other [facility] Other Start: 04-01-2023 Telephone encounter Branden Fraga [facility] Start: 03-27-2023 End: 03-27-2023 ambulatory Branden Fraga Other [facility] Other Start: 03-27-2023 Telephone encounter Branden Fraga [facility] Start: 03-26-2023 End: 03-26-2023 ambulatory Branden Fraga Other [facility] Other Start: 03-26-2023 Office outpatient vi sit 15 minutes Branden Ball [facility] Start: 03-14-2023 End: 03-14-2023 ambulatory Branden Fraga Other [facility] Other Start: 03-14-2023 Telephone encounter Branden Fraga [facility] Start: 02-19-2023 End: 02-19-2023 ambulatory Branden Fraga Other [facility] Other Start: 02-19-2023 Telephone encounter Branden Ball [facility] Start: 02-08-2023 End: 02-08-2023 ambulatory Branden Florian Other [facility] Other Start: 02-08-2023 Patient encounter procedure Branden Ball [facility] Start: 09-20-2022 End: 09-20-2022 ambulatory Branden Ball Other [facility] Other Start: 09-20-2022 Telephone encounter Branden Ball [facility] Start: 08-27-2022 End: 08-27-2022 ambulatory Branden Fraga Other [facility] Other Start: 08-27-2022 Office outpatient vi sit 15 minutes Branden Fraga [facility] Start: 08-24-2022 End: 08-24-2022 ambulatory Branden Fraga Other [facility] Other Start: 08-24-2022 Nursing evaluation o f patient and report Branden Fraga [facility] Start: 07-09-2022 End: 07-09-2022 ambulatory Branden Fraga Other [facility] Other Start: 07-09-2022 Office outpatient vi sit 15 minutes Branden Fraga [facility] Start: 06-12-2022 End: 06-12-2022 ambulatory Branden Fraga Other [facility] Other Start: 06-12-2022 Telephone encounter Branden Fraga [facility] Start: 06-11-2022 End: 06-11-2022 ambulatory Branden Fraga Other [facility] Other Start: 06-11-2022 Telephone encounter Branden Fraga [facility] Start: 05-22-2022 End: 05-22-2022 ambulatory Branden Fraga Other [facility] Other Start: 05-22-2022 Telephone encounter Branden Fraga [facility] Start: 05-21-2022 Office outpatient vi sit 15 minutes Branden Fraga [facility] Start: 05-21-2022 End: 05-23-[address] BRANDEN FRAGA Facility:[facility] Start: 05-21-2022 End: 05-21-2022 ambulatory [facility] Start: 05-21-2022 End: 05-21-2022 Emergency department patient visit [facility] Comment on above: Arrived Start: 05-04-2022 End: 05-04-2022 ambulatory Branden Fraga Other [facility] Other Start: 05-04-2022 Telephone encounter Branden Fraga BISHOP Fraga [facility] Start: 05-03-2022 End: 05-03-2022 ambulatory Branden Fraga Other [facility] Other Start: 05-03-2022 Telephone encounter Branden Fraga BISHOP Fraga [facility] Start: 02-08-2022 End: 02-09-[address] BRANDEN [...] - Serum or Plasma [facility] Immunizations Immunization Date Immunization Notes Care Provider Fa charity 12-13-2021 influenza virus vaccine, split virus (incl. purified surface antigen) Branden Fraga Other [facility] Other 12-14-2020 influenza virus vaccine, split virus (incl. purified surface antigen) Branden Fraga Other [facility] Other 12-04-2019 influenza virus vaccine, split virus (incl. purified surface antigen) Branden Fraga Other [facility] Other 12-16-2018 influenza virus vaccine, split virus (incl. purified surface antigen) Branden Fraga Other [facility] Other 01-15-2018 influenza virus vaccine, split virus (incl. purified surface antigen) Branden Fraga Other [facility] Other 01-12-2017 influenza virus vaccine, split virus (incl. purified surface antigen) Branden Fraga Other [facility] Other 12-27-2015 influenza virus vaccine, split virus (incl. purified surface antigen) Branden Fraga Other [facility] Other 01-28-2015 pneumococcal conjuga te vaccine, 13 valent Branden Fraga Other [facility] Other Payers Date Payer Category Payer Unknown [facility] FINANCIAL PROGRAM EVALUATION [id number] 2022-Present [phone] [address] [place] [address] Other [id number] 2022 Unknown [id number] 1959 Medicare [id number] 1959 Unknown [id number] 1940 Unknown [id number] 1940 Unknown [id number] 1940 Unknown [id number] 1940 Unknown [id number] Social History Date Type Detail Facility Tobacco smoking status RIIS Tobacco smoking consumption unknown [facility] Start: 1940 Sex Assigned At Not on file [facility] Sex Assigned At Sex Assigned At Bir [facility] Other Clinical Notes 05-04-2022 to 04-08-2023 Note Date & Type Note Facility 04-08-2023 Evaluation note Encounter Date Diagnosis Assessment Notes Mar, Left lower quadrant abdominal pain (ICD-10 - R10.32) Mar, Diarrhea, unspecified type (ICD-10 - R19.7) [facility] Other 01-08-2024 Evaluation note* Encounter Date Diagnosis Assessment Notes Treatment Notes Treatment Clinical Notes Mar, Irritable bowel syndrome without diarrhea (ICD-10 - K58.9) [facility] Other 01-02-2024 Evaluation note* Encounter Date Diagnosis Assessment Notes Treatment Notes Treatment Clinical Notes Mar, Diarrhea, unspecified type (ICD-10 - R19.7) Diet instructions. Avoid dairy products and juice drinks. Increase dietary fiber Initiate artificial fiber substitute: Metamucil or gummy fiber Mar, Primary hypertension (ICD-10 - I10) This patient is instructed to consume a healthy, low-fat, low-salt diet. They are also encouraged to continue exercise to achieve/maintain a normal BMI. 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 Unlikely represents recurrence but if bowel habits don't resolve, would refer for colonoscopy to exclude colitis [facility] Other 12-21-2023 Evaluation note* Encounter Date Diagnosis Assessment Notes Treatment Notes Treatment Clinical Notes Feb, Gastroesophageal ref lux disease with esophagitis without hemorrhage (ICD-10 - K21.00) [facility] Other 11-28-2023 Evaluation note* Encounter Date Diagnosis Assessment Notes Treatment Notes Treatment Clinical Notes Jan, Dysuria (ICD-10 - R30.0) [facility] Other 11-17-2023 Evaluation note* Encounter Date Diagnosis [...] patient on monthly SBE and yearly mammograms. [facility] Other 06-29-2023 Evaluation note* Encounter Date Diagnosis Assessment Notes Treatment Notes Treatment Clinical Notes Aug, Primary hypertension (ICD-10 - I10) [facility] Other 06-05-2023 Evaluation note* Encounter Date Diagnosis [...] best 2/3 readings w/ goal < 135-85 [facility] Other 06-02-2023 Evaluation note* Encounter Date Diagnosis Assessment Notes Treatment Notes Treatment Clinical Notes Aug, Dysuria (ICD-10 - R30.0) [facility] Other 04-17-2023 Evaluation note* Encounter Date Diagnosis Assessment Notes Treatment Notes Treatment Clinical Notes Jun, Primary hypertension (ICD-10 - I10) This patient is instructed to consume a healthy, low-fat, low-salt diet. They are also encouraged to continue exercise to achieve/maintain a normal BMI. Jun, Nicotine dependence, cigarettes, in remission (ICD-10 - F17.211) Continue abstinence [facility] Other 03-21-2023 Evaluation note* Encounter Date Diagnosis Assessment Notes Treatment Notes Treatment Clinical Notes May, Primary hypertension (ICD-10 - I10) [facility] Other 03-20-2023 Evaluation note* Encounter Date Diagnosis Assessment Notes Treatment Notes Treatment Clinical Notes May, Primary hypertension (ICD-10 - I10) [facility] Other 02-28-2023 Evaluation note* Encounter Date Diagnosis Assessment Notes Treatment Notes Treatment Clinical Notes Apr, Primary hypertension (ICD-10 - I10) [facility] Other 02-27-2023 Evaluation note* Encounter Date Diagnosis [...] (ICD-10 - F17.211) Continue abstinence Apr, Other [facility] Other 02-27-2023 History of Present illness Narrative* Sudheer Haro MD - 05/21/2022 10:00 AM EST Images from the original note were not included. EMERGENCY TRIAGE, TREAT AND TRANSPORT (ET3) DOCUMENTATION OF TELEHEALTH VISIT Date / Time: 05/21/2022944 Name: Genny Barboza : 1940 SSN: (Not on file) EMS Agency: [facility] [x] Verbal consent obtained [...] the typically is not available at a [place] primary care physician's office.Patient declined using ambulance go to the ER, and her daughter who was present on scene will driveher the 4 minutes will take to get to the [place] ER. I advised her to call 911 [...] by: Sudheer Haro MD documented in this [id number] Evaluation note* Encounter Date Diagnosis Assessment Notes Treatment Notes Treatment Clinical Notes Apr, Nausea (ICD-10 - R11.0) [place] [employer] Other Evaluation note* Diagnosis Hypertensive urgency- Primary [facility] Other History general Narrative - Reported* Type [...] History CYSTOSCOPY Hospitalization History SEE SURGICAL HX [facility] Other Summary Purpose Family History No Family History Records FoundNo Family History Records Found Advance Directives No Advanced Directives Records FoundNo Advanced Directives Records Found Additional Source Comments Reason for Visit (unrecogniz ed section and content) stomach issues Reason Comments Headache Hypertension INFORMATION SOURCE (unrecogn ized section and content) DATE CREATED AUTHOR 05/23/2022 [facility] DATE CREATED AUTHOR AUTHOR'S ORGANIZ ATION 05/25/2022 [employer] FOR RECORDS PERTAINING TO PATIENTS WHO [...] BE BASED ON THE PRIMARY CLINICAL RECORDS. [employer] provides no warranty or guarantee of the accuracy or completeness of information in this document.
--- NOTE | 2023-04-12 12:42 | XR_ITS ---
The [address] [address] Patient Name: EVER BREWER MRN: [id number] date: 1940 Sex: F Assigned Patient Location: [facility] Current Patient Location: [facility] Accession/Order Number: [id number] Exam Date: 04/12/2023 12:47 Report Date: 04/12/2023 16:05 At the request of: ERNESTO FRAGA Procedure: XR humerus RT EXAM: XR humerus RT HISTORY: Right Arm Pain M79.601, Contusion Of Right Upper Extremity COMPARISON: None TECHNIQUE: AP and lateral views of the right humerus were obtained. FINDINGS: No definite acute fracture or dislocation. Small faint calcification along the superior humeral head likely degenerative in nature. Mild degenerative change about the acromioclavicular joint. Slight bilateral spurring at the distal humerus in the medial and lateral epicondylar regions. Soft tissues are grossly within normal limits. XR/XR humerus RT IMPRESSION: Right humerus study fails to demonstrate definite acute fracture or dislocation. Mild degenerative changes as described. Follow-up as needed. Electronically authenticated by: SÁNCHEZ WEBB Date: 04/12/2023 16:05
== END 2023-04-12 12:37 | disposition home or self-care (01) ==
PROVIDERS: PCP Internal Medicine; Visit Provider Internal Medicine
DX: M79.601 Pain in right arm (principal); S40.021A Contusion of right upper arm, initial encounter
CPT/HCPCS: 73060

== ENCOUNTER 2023-04-17 11:26 | Outpatient (OUT) | payer MEDICARE, SELFPAY ==
--- OUTSIDE RECORDS SUMMARY | 2023-04-17 11:29 | XMS_ITS | CCD ---
Author Name Unknown Address [address] [place] [address] Organization [facility] Care Team Providers Care Process Lead Name Role Phone Unavailable Primary Care Provider [...] Unavailable FLORIAN, DR OROZCO Primary Care Unavailable [place], DR KALPANA [employer] Unavailable PROVIDER, UNKNOWN Attending Unavailable PROVIDER, UNKNOWN Admitting Unavailable Florian, Branden Unavailable Allergies Allergy Classification Reported Allergen(s) Allergy Type Date of Onset Reaction(s) Facility (1 source) Penicillins Drug allergy (disorder) 4 [facility] (9 sources) Substance with penicillin structure and antibacterial mechanism of action (substance) Drug allergy 4 Unknown [facility] Other Medications Current Medications Medication Drug Class(es) Dates Sig (Normalized) Sig (Original) famotidine 40 mg oral tablet (7 sources) Histamine-2 Receptor Antagonist Start: 03-14-2023 take 1 tablet by mouth every twenty-four hours Famotidine 40 MG 1 tablet at bedtime Orally Once a day for 30 days Feb, Active hyoscyamine sulfate 0.125 mg sublingual tablet (4 sources) Start: 04-01-2023 Levsin/SL 0.125 MG 1 tablet under the tongue and allow to dissolve as needed Sublingual before meals and HS for 10 days Mar, Active losartan potassium 50 mg oral tablet (20 sources) Angiotensin 2 Receptor Niharika Start: 02-28-2023 [...] Apr, Active meloxicam 15 mg oral tablet (12 sources) Nonsteroidal Anti-inflammatory Drug Start: 08-27-2022 take [...] Active ondansetron 4 mg disintegrating oral tablet (20 sources) Serotonin-3 Receptor Antagonist Start: 05-04-2022 take 1 tablet by mouth every six hours as needed for nausea Ondansetron 4 MG 1Tablet Orally Every 6 hours PRN nausea for 5 days Apr, Active sulfamethoxazole 800 mg / trimethoprim 160 mg oral tablet (8 sources) Dihydrofolate Reductase Inhibitor Antibacterial, Sulfonamide Antimicrobial Start: 02-19-2023 take 1 tablet by mouth every twelve hours Sulfamethoxazol e-Trimethoprim 800-160 MG 1 tablet Orally Twice a day for 5 days Jan, Active Problems Active Problems Problem Classification Problem Date Documented Da te Episodic/Chronic Abdominal pain (20 sources) Left lower quadrant pain; Translations: [Left lower quadrant pain] Episodic E Codes: Fall (1 source) Unspecified fall, initial encounter Episodic Esophageal disorders (9 sources) Gastro-esophageal reflux disease with esophagitis; Translations: [...] (1 source) Other fatigue Episodic Menopausal disorders (20 sources) Decreased estrogen level; 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 Mycoses (20 sources) Tinea corporis; Translations: [Tinea corporis] Episodic Nausea and vomiting (1 source) Nausea Episodic Other aftercare (1 source) Other custodial (current) drug therapy; Translations: [OTH [facility] CURRENT DRUG THERAPY] Onset: 05-22-2022 Episodic Other and unspecified benign neoplasm (19 sources) Lipoma of lower limb; Translations: [Benign lipomatous neoplasm of skin and subcutaneous tissue of right leg] Episodic Other and unspecified benign neoplasm (1 source) Benign lipomatous neoplasm of skin and subcutaneous tissue of right leg; Translations: [Lipoma of right lower extremity] Episodic Other connective tissue disease (1 source) Pain in right arm Episodic Other gastrointestinal disorders (4 sources) Irritable bowel syndrome; Translations: [Irritable bowel syndrome without diarrhea] Chronic Other gastrointestinal disorders (1 source) Irritable bowel syndrome without diarrhea Chronic Other gastrointestinal disorders (20 sources) Personal history of other diseases of the digestive system; Translations: [History of small bowel obstruction] Episodic Other gastrointestinal disorders (2 sources) Diarrhea, unspecified Episodic Other lower respiratory disease (7 sources) Solitary pulmonary nodule; Translations: [SOLITARY PULMONARY NODULE] Onset: 08-11-2021 Episodic Other lower respiratory disease (18 sources) Nodule of lung; Translations: [Solitary pulmonary nodule] Episodic Other screening for suspected conditions (not mental disorders or infectious disease) (20 sources) Encounter for screening mammogram for malignant neoplasm of breast; Translations: [Screening status] Onset: 02-08-2022 Episodic Other skin disorders (20 sources) Abdominal mass; Translations: [Localized swelling, mass and lump, trunk] Episodic Pleurisy; pneumothorax; pulmonary collapse (20 sources) Secondary spontaneous pneumothorax; Translations: [Secondary spontaneous pneumothorax] Episodic Residual codes; unclassified (20 sources) History of colectomy; Translations: [Acquired absence of other specified parts of digestive tract] Episodic Residual codes; unclassified (1 source) Acquired absence of other specified parts of digestive tract Episodic Screening and history of mental health and substance abuse codes (1 source) Personal history of nicotine dependence; Translations: [PERSONAL HISTORY OF NICOTINE DEPEND] Onset: 05-22-2022 Episodic Spondylosis; intervertebral disc disorders; other back problems (14 sources) Lumbar spondylosis; Translations: [Spondylosis without myelopathy or radiculopathy, lumbar region] Chronic Substance-related disorders (20 sources) Tobacco user; Translations: [Nicotine dependence, cigarettes, 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 Superficial injury; contusion (1 source) Contusion of right upper arm, initial encounter Episodic Past or Other Problems Problem Classification Problem Date Documented Da te Episodic/Chronic Esophageal disorders (14 sources) Esophageal disorders; Translations: [Gastroesophageal reflux disease with esophagitis without hemorrhage] Unclassified (20 sources) Acute bilateral low back pain without sciatica; Translations: [Acute bilateral low back pain without sciatica] Unclassified (1 source) Acute right-sided low back pain without sciatica M54.50 Viral infection (20 sources) Disease caused by 2019-nCoV; Translations: [COVID-19] Results Test Name Value Interpretation Reference Range Facility Urinalysis - DIPSTICKon 06-0 Appearance (U) clear [employer] Other Bilirubin Ql (U) Negative [employer] Other Color (U) light yellow [facility] Other Glucose Ql (U) Negative [employer] Other Hemoglobin Ql (U) Negative [employer] Other Ketones Ql (U) Negative [employer] Other Leukocyte esterase Test strip Ql (U) Negative [facility] Other Nitrite Ql (U) Negative [employer] Other pH (U) 5.0 [pH] [facility] Other Protein Ql (U) Negative [employer] Other Specific gravity (U) [Rel density] 1.005 [facility] Other Urobilinogen (U) [Mass/Vol] 0.5 mg/dL [facility] Other Urinalysis - DIPSTICK [employer] Other CBC AUTO DIFFon 05-21-2022 BASO # 0.0 103/ul Normal 0.0-0.1 [facility] Comment on above: Performed By: #### C BC #### [facility] [address] [place] [address] Dr. Arlyn Chan Basophils/100 WBC (Bld) 0.6 % Normal 0.2-2.0 [facility] Comment on above: Performed By: #### C BC #### [facility] [address] [place] [address] Dr. Arlyn Chan EO # 0.1 103/ul Normal 0.0-0.7 [facility] Comment on above: Performed By: #### C BC #### [facility] [address] [place] [address] Dr. Arlyn Chan Eosinophils/100 WBC (Bld) 1.1 % Normal 0.9-7.0 [facility] Comment on above: Performed By: #### C BC #### [facility] [address] [place] [address] Dr. Arlyn Chan Erythrocyte distribution width (RBC) [Ratio] 13.6 % Normal 11.0-15.0 [facility] Comment on above: Performed By: #### C BC #### [facility] [address] [place] [address] Dr. Arlyn Chan Hematocrit (Bld) [Volume fraction] 44.3 % Normal 36.0-48.0 [facility] Comment on above: Performed By: #### C BC #### [facility] [address] [place] [address] Dr. Arlyn Chan Hemoglobin (Bld) [Mass/Vol] 14.8 g/dL Normal 12.0-16.0 [facility] Comment on above: Performed By: #### C BC #### [facility] [address] [place] [address] Dr. Arlyn Chan IG # 0.00 10e3/ul Normal 0.00-0.03 [facility] Comment on above: Performed By: #### C BC #### [facility] [address] [place] [address] Dr. Arlyn Chan IG % 0.0 % Normal 0.0-0.5 [facility] Comment on above: Performed By: #### C BC #### [facility] [address] [place] [address] Dr. Arlyn Chan LYMPH # 1.7 103/ul Normal 1.2-3.8 [facility] Comment on above: Performed By: #### C BC #### [facility] [address] [place] [address] Dr. Arlyn Chan Lymphocytes/100 WBC (Bld) 31.1 % Normal 20.5-60.0 [facility] Comment on above: Performed By: #### C BC #### [facility] [address] [place] [address] Dr. Arlyn Chan MANUAL DIFF REQ NO Normal [facility] Comment on above: Performed By: #### C BC #### [facility] [address] [place] [address] Dr. Arlyn Chan MCH (RBC) [Entitic mass] 31.9 pg Normal 26.7-34.0 [facility] Comment on above: Performed By: #### C BC #### [facility] [address] [place] [address] Dr. Arlyn Chan MCHC (RBC) [Mass/Vol] 33.4 g/dL Normal 29.9-35.2 [facility] Comment on above: Performed By: #### C BC #### [facility] [address] [place] [address] Dr. Arlyn Chan MCV (RBC) [Entitic vol] 95.5 fL Normal 81.0-99.0 [facility] Comment on above: Performed By: #### C BC #### [facility] [address] [place] [address] Dr. Arlyn Chan MONO # 0.5 103/ul Normal 0.3-0.8 [facility] Comment on above: Performed By: #### C BC #### [facility] [address] [place] [address] Dr. Arlyn Chan Monocytes/100 WBC (Bld) 8.8 % Normal 1.7-12.0 [facility] Comment on above: Performed By: #### C BC #### [facility] [address] [place] [address] Dr. Arlyn Chan NEUT # 3.1 103/ul Normal 1.4-6.5 [facility] Comment on above: Performed By: #### C BC #### [facility] [address] [place] [address] Dr. Arlyn Chan Neutrophils/100 WBC (Bld) 58.4 % Normal 43.0-75.0 [facility] Comment on above: Performed By: #### C BC #### [facility] [address] [place] [address] Dr. Arlyn Chan Platelet mean volume (Bld) [Entitic vol] 10.0 fL Normal 9.5-13.5 [facility] Comment on above: Performed By: #### C BC #### [facility] [address] [place] [address] Dr. Arlyn Chan PLT 242 103/ul Normal 150-450 [facility] Comment on above: Performed By: #### C BC #### [facility] [address] [place] [address] Dr. Arlyn Chan RBC 4.64 106/ul Normal 4.20-5.40 [facility] Comment on above: Performed By: #### C BC #### [facility] [address] [place] [address] Dr. Arlyn Chan WBC 5.4 103/ul Normal 4.0-11.0 [facility] Comment on above: Performed By: #### C BC #### [facility] [address] [place] [address] Dr. Arlyn Chan PROF CHEM 8 (BAS METB)on Anion gap [Moles/Vol] 13.9 mmol/L Normal [facility] Comment on above: Performed By: #### H STROPN, BMP #### [facility] [address] [place] [address] Dr. Arlyn Chan Calcium [Mass/Vol] 9.4 mg/dL Normal 8.5-10.1 [facility] Comment on above: Performed By: #### H STROPN, BMP #### [facility] [address] [address] [address] Arlyn hCan Chloride [Moles/Vol] 105 mmol/L Normal 98-107 [facility] Comment on above: Performed By: #### H STROPN, BMP #### [facility] [address] [address] [address] Arlyn Chan CO2 [Moles/Vol] 24.3 mmol/L Normal 21.0-32.0 [facility] Comment on above: Performed By: #### H STROPN, BMP #### [facility] [address] [place] [address] Dr. Arlyn Chan Creatinine [Mass/Vol] 0.76 mg/dL Normal 0.55-1.02 [facility] Comment on above: Performed By: #### H STROPN, BMP #### [facility] [address] [address] [address] Arlyn Chan EGFR-AF SOMALI >60 Normal >=60 [facility] Comment on above: Performed By: #### H STROPN, BMP #### [facility] [address] [place] [address] Dr. Arlyn Chan EGFR-NON AF SOMALI >60 Normal >=60 [facility] Comment on above: Performed By: #### H STROPN, BMP #### [facility] [address] [address] [address] Arlyn Chan Glucose [Mass/Vol] 96 mg/dL Normal 74-106 [facility] Comment on above: Performed By: #### H STROPN, BMP #### [facility] [address] [address] [address] Arlyn Chan Potassium [Moles/Vol] 4.2 mmol/L Normal 3.5-5.1 [facility] Comment on above: Performed By: #### H STROPN, BMP #### [facility] [address] [address] [address] Arlyn Chna Sodium [Moles/Vol] 139 mmol/L Normal 136-145 [facility] Comment on above: Performed By: #### H YURI, BMP #### [facility] [address] [address] [address] Arlyn Chan Urea nitrogen [Mass/Vol] 21.0 mg/dL Critically high 7.0-18.0 [facility] Comment on above: Performed By: #### H YURI, BMP #### [facility] [address] [address] [address] Arlyn Chan Urea nitrogen/Creatinine [Mass ratio] 27.6 mg/mg Normal [facility] Comment on above: Performed By: #### H YURI, BMP #### [facility] [address] [place] [address] Dr. Arlyn Chan Progress Noteson 05-21-2022 Senior Environmental Practice Leader Authentication Interface Message Text EMERGENCY TRIAGE, TREAT AND TRANSPORT (ET3) DOCUMENTATION OF TELEHEALTH VISIT Date / Time: 05/21/2022944 Name: Genny Barboza : 1940 SSN: (Not on file) EMS Agency: [facility] [x] Verbal consent obtained [] Implied [...] minutes will take to get to the [facility]. I advised her to call 911 [...] Completed by: Sudheer Haro MD Normal [facility] TROPONIN, HIGH SENSITIVITYon 05-21-2022 HSTROP 5.9 pg/mL Normal 4.0-51.3 [facility] Comment on above: Result Comment: CUT- OFF POINTS HAVE BEEN ESTABLISHED BASED ON THE FOURTH UNIVERSAL DEFINITIONS OF MYOCARDIAL INFARCTION. THE UPPER REFERENCE LIMIT (URL) OF TROPONIN, DEFINED THE 99TH PERCENTILE OF cTnI DISTRIBUTION IN A REFERENCE POPULATION, HAS BEEN CONFIRMED THE DECISION THRESHOLD FOR ID DIAGNOSIS. Performed By: #### H KALIN, BMP #### [facility] [address] [address] [address] Arlyn Chan MG MAMM SCREEN 3D VINNY CADon 02-08-2022 MG MAMM SCREEN 3D VINNY CAD Patient: GENNY BARBOZA Exam Date: 02/08/2022 : 1940 Gender:F Ordering : DR BRANDEN FRAGA D.O. Admission #: [id number] Family : Order #: [id number] CLICK HERE TO VIEW EXAM RADIOLOGY REPORT [...] bowel resection Family Cancers None LOCATION: [facility] BREAST COMPOSITION: Scattered areas fibroglandular density. [...] Addison MD on 02/08/2022 at 14:06 Normal [facility] CT CHEST WO CONon 08-11-2021 CT [...] by: JOAQUIN SOTO Date: 2021-08-11 17:29 Normal [facility] Vital Signs Date Time Vital Sign Value Performing Clinician Facility 04-12-2023 11:30-0500 Body height 165.1 cm Branden Ball Other [facility] Other 04-12-2023 11:30-0500 Body mass index (BMI) [Ratio] 24.59 kg/m2 Branden Ball Other [facility] Other 04-12-2023 11:30-0500 Body weight 67.04 kg Branden Ball Other [facility] Other 04-12-2023 11:30-0500 Diastolic blood pressure 75 mm[Hg] Branden Ball Other [facility] Other 04-12-2023 11:30-0500 Respiratory rate 12 /min Branden Ball Other [facility] Other 04-12-2023 11:30-0500 Systolic blood pressure 122 mm[Hg] Branden Ball Other [facility] Other 03-26-2023 11:30-0500 Body height 165.1 cm Branden Ball Other [facility] Other 03-26-2023 11:30-0500 Body mass index (BMI) [Ratio] 24.89 kg/m2 Branden Ball Other [facility] Other 03-26-2023 11:30-0500 Body weight 67.86 kg Branden Ball Other [facility] Other 03-26-2023 11:30-0500 Diastolic blood pressure 82 mm[Hg] Branden Ball Other [facility] Other 03-26-2023 11:30-0500 Respiratory rate 12 /min Branden Ball Other [facility] Other 03-26-2023 11:30-0500 Systolic blood pressure 192 mm[Hg] Branden Ball Other [facility] Other 02-08-2023 13:30-0500 Body height 165.1 cm Branden Ball Other [facility] Other 02-08-2023 13:30-0500 Body mass index (BMI) [Ratio] 24.29 kg/m2 Branden Ball Other [facility] Other 02-08-2023 13:30-0500 Body weight 66.23 kg Branden Ball Other [facility] Other 02-08-2023 13:30-0500 Diastolic blood pressure 79 mm[Hg] Branden Ball Other [facility] Other 02-08-2023 13:30-0500 Respiratory rate 12 /min Branden Ball Other [facility] Other 02-08-2023 13:30-0500 Systolic blood pressure 128 mm[Hg] Branden Ball Other [facility] Other 08-27-2022 11:15-0400 Body height 165.1 cm Branden Ball Other [facility] Other 08-27-2022 11:15-0400 Body mass index (BMI) [Ratio] 24.06 kg/m2 Branden Ball Other [facility] Other 08-27-2022 11:15-0400 Body weight 65.59 kg Branden Ball Other [facility] Other 08-27-2022 11:15-0400 Diastolic blood pressure 83 mm[Hg] Branden Ball Other [facility] Other 08-27-2022 11:15-0400 Respiratory rate 12 /min Branden Ball Other [facility] Other 08-27-2022 11:15-0400 Systolic blood pressure 152 mm[Hg] Branden Ball Other [facility] Other 07-09-2022 15:00-0400 Body height 165.1 cm Branden Ball Other [facility] Other 07-09-2022 15:00-0400 Body mass index (BMI) [Ratio] 23.23 kg/m2 Branden Ball Other [facility] Other 07-09-2022 15:00-0400 Body weight 63.32 kg Branden Ball Other [facility] Other 07-09-2022 15:00-0400 Diastolic blood pressure 72 mm[Hg] Branden Ball Other [facility] Other 07-09-2022 15:00-0400 Respiratory rate 12 /min Branden Ball Other [facility] Other 07-09-2022 15:00-0400 Systolic blood pressure 134 mm[Hg] Branden Ball Other [facility] Other 05-21-2022 15:45-0500 Body height 165.1 cm Branden Ball Other [facility] Other 05-21-2022 15:45-0500 Body mass index (BMI) [Ratio] 24.56 kg/m2 Branden Fraga Other [facility] Other 05-21-2022 15:45-0500 Body weight 66.95 kg Branden Fraga Other [facility] Other 05-21-2022 15:45-0500 Diastolic blood pressure 82 mm[Hg] Branden Fraga Other [facility] Other 05-21-2022 15:45-0500 Respiratory rate 12 /min Branden Fraga Other [facility] Other 05-21-2022 15:45-0500 Systolic blood pressure 136 mm[Hg] Branden Fraga Other [facility] Other 05-21-2022 09:45-0500 Diastolic blood pressure 92 mm[Hg] [facility] 05-21-2022 09:45-0500 Heart rate 72 /min [facility] 05-21-2022 09:45-0500 Respiratory rate 18 /min [facility] 05-21-2022 09:45-0500 SaO2% (BldA) [Mass fraction] 98 % [facility] 05-21-2022 09:45-0500 Systolic blood pressure 181 mm[Hg] [facility] Encounters Encounter Date Encounter Type Care Provider Facility Start: 04-12-2023 End: 04-12-2023 ambulatory Branden Fraga Other [facility] Other Start: 04-12-2023 Office outpatient vi sit 15 minutes Branden Fraga [facility] Start: 04-12-2023 Telephone encounter Branden Fraga [facility] Start: 04-08-2023 End: 04-08-2023 ambulatory Branden Fraga Other [facility] Other Start: 04-08-2023 Telephone encounter Branden Fraga BISHOP [facility] Start: 04-01-2023 End: 04-01-2023 ambulatory Branden Ball Other [facility] Other Start: 04-01-2023 Telephone encounter Branden Ball [facility] Start: 03-27-2023 End: 03-27-2023 ambulatory Branden Ball Other [facility] Other Start: 03-27-2023 Telephone encounter Branden Ball [facility] Start: 03-26-2023 End: 03-26-2023 ambulatory Branden Ball Other [facility] Other Start: 03-26-2023 Office outpatient vi sit 15 minutes Branden Ball [facility] Start: 03-14-2023 End: 03-14-2023 ambulatory Branden Ball Other [facility] Other Start: 03-14-2023 Telephone encounter Branden Ball [facility] Start: 02-19-2023 End: 02-19-2023 ambulatory Branden Ball Other [facility] Other Start: 02-19-2023 Telephone encounter Branden Fraga [facility] Start: 02-08-2023 End: 02-08-2023 ambulatory Branden Ball Other [facility] Other Start: 02-08-2023 Patient encounter procedure Branden Ball [facility] Start: 09-20-2022 End: 09-20-2022 ambulatory Branden Ball Other [facility] Other Start: 09-20-2022 Telephone encounter Branden Ball [facility] Start: 08-27-2022 End: 08-27-2022 ambulatory Branden Ball Other [facility] Other Start: 08-27-2022 Office outpatient vi sit 15 minutes Branden Ball [facility] Start: 08-24-2022 End: 08-24-2022 ambulatory Branden Ball Other [facility] Other Start: 08-24-2022 Nursing evaluation o f patient and report Branden Florian [facility] Start: 07-09-2022 End: 07-09-2022 ambulatory Branden Fraga Other [facility] Other Start: 07-09-2022 Office outpatient vi sit 15 minutes Branden Fraga [facility] Start: 06-12-2022 End: 06-12-2022 ambulatory Branden Fraga Other [facility] Other Start: 06-12-2022 Telephone encounter Branden Fraga BISH[facility] Start: 06-11-2022 End: 06-11-2022 ambulatory Branden Fraga Other [facility] Other Start: 06-11-2022 Telephone encounter Branden Fraga [facility] Start: 05-22-2022 End: 05-22-2022 ambulatory Branden Fraga Other [facility] Other Start: 05-22-2022 Telephone encounter Branden Florian [facility] Start: 05-21-2022 Office outpatient vi sit 15 minutes Branden Fraga [facility] Start: 05-21-2022 End: 05-23-[address] BRANDEN FRAGA Facility: Start: 05-21-2022 End: 05-21-2022 ambulatory [facility] Start: 05-21-2022 End: 05-21-2022 Emergency department [facility] Comment on above: Arrived Start: 05-04-2022 End: 05-04-2022 ambulatory Branden Florian Other [facility] Other Start: 05-04-2022 Telephone encounter Branden Fraga [facility] Start: 05-03-2022 End: 05-03-2022 ambulatory Branden Florian Other [facility] Other Start: 05-03-2022 Telephone encounter [facility] Start: 02-08-2022 End: 02-09-[address] RBANDEN FRAGA Facility:[facility] Start: 08-11-2021 End: 08-12-2021 ambulatory [...] - Serum or Plasma Basic Metabolic Panel [facility] Immunizations Immunization Date Immunization Notes Care Provider Fa cility 12-13-2021 influenza virus vaccine, split virus (incl. purified surface antigen) Branden Fraga Other [facility] Other 12-14-2020 influenza virus vaccine, split virus (incl. purified surface antigen) Branden Fraga Other [facility] Other 12-04-2019 influenza virus vaccine, split virus (incl. purified surface antigen) Branden Fraga Other [facility] Other 12-16-2018 influenza virus vaccine, split virus (incl. purified surface antigen) Branden Fraga Other [facility] Other 01-15-2018 influenza virus vaccine, split virus (incl. purified surface antigen) Branden Fraga Other [facility] Other 01-12-2017 influenza virus vaccine, split virus (incl. purified surface antigen) Branden Fraga Other [facility] Other 12-27-2015 influenza virus vaccine, split virus (incl. purified surface antigen) Branden Fraga Other [facility] Other 01-28-2015 pneumococcal conjuga te vaccine, 13 valent Branden Fraga Other [facility] Other Payers Date Payer Category Payer Unknown SP/UNINSURED PEN DING FINANCIAL PROGRAM EVALUATION [id number] 2022-Present [phone] [id number] [place] [address] Other [id number] 2022 Unknown [id number] 1959 Medicare [id number] 1959 Unknown [id number] 1940 Unknown [id number] 1940 Unknown [id number] 1940 Unknown [id number] 1940 Unknown [id number] Social History Date Type Detail Facility Tobacco smoking status [facility] Tobacco smoking consumption unknown [facility] Start: 1940 Sex Assigned At Not on file [facility] Sex Assigned At Sex Assigned At [facility] Other Clinical Notes 05-04-2022 to 04-12-2023 Note Date & Type Note Facility 04-12-2023 Evaluation note Encounter Date Diagnosis Assessment Notes Mar, Fall, initial encounter (ICD-10 - W19.XXXA) She denies CP, DASILVA, palpitations or lightheadedness Tripped over her shoe laces Fall precautions Mar, Right arm pain (ICD-10 - M79.601) Not sure how she landed. Ice, heat Mar, Contusion of right upper extremity, initial encounter (ICD-10 - S40.021A) [facility] Other 01-15-2024 Evaluation note* Encounter Date Diagnosis Assessment Notes Treatment Notes Treatment Clinical Notes Mar, Left lower quadrant abdominal pain (ICD-10 - R10.32) Mar, Diarrhea, unspecified type (ICD-10 - R19.7) [facility] Other 01-08-2024 Evaluation note* Encounter Date Diagnosis Assessment Notes Treatment Notes Treatment Clinical Notes Mar, Irritable bowel syndrome without diarrhea (ICD-10 - K58.9) [facility] Other 01-02-2024 Evaluation note* Encounter Date Diagnosis [...] would refer for colonoscopy to exclude colitis [facility] Other 12-21-2023 Evaluation note* Encounter Date Diagnosis Assessment Notes Treatment Notes Treatment Clinical Notes Feb, Gastroesophageal ref lux disease with esophagitis without hemorrhage (ICD-10 - K21.00) [facility] Other 11-28-2023 Evaluation note* Encounter Date Diagnosis Assessment Notes Treatment Notes Treatment Clinical Notes Jan, Dysuria (ICD-10 - R30.0) [facility] Other 11-17-2023 Evaluation note* Encounter Date Diagnosis [...] patient on monthly SBE and yearly mammograms. [facility] Other 06-29-2023 Evaluation note* Encounter Date Diagnosis Assessment Notes Treatment Notes Treatment Clinical Notes Aug, Primary hypertension (ICD-10 - I10) [facility] Other 06-05-2023 Evaluation note* Encounter Date Diagnosis [...] best 2/3 readings w/ goal < 135-85 [facility] Other 06-02-2023 Evaluation note* Encounter Date Diagnosis Assessment Notes Treatment Notes Treatment Clinical Notes Aug, Dysuria (ICD-10 - R30.0) [facility] Other 04-17-2023 Evaluation note* Encounter Date Diagnosis Assessment Notes Treatment Notes Treatment Clinical Notes Jun, Primary hypertension (ICD-10 - I10) This patient is instructed to consume a healthy, low-fat, low-salt diet. They are also encouraged to continue exercise to achieve/maintain a normal BMI. Jun, Nicotine dependence, cigarettes, in remission (ICD-10 - F17.211) Continue abstinence [facility] Other 03-21-2023 Evaluation note* Encounter Date Diagnosis Assessment Notes Treatment Notes Treatment Clinical Notes May, Primary hypertension (ICD-10 - I10) [facility] Other 03-20-2023 Evaluation note* Encounter Date Diagnosis Assessment Notes Treatment Notes Treatment Clinical Notes May, Primary hypertension (ICD-10 - I10) [facility] Other 02-28-2023 Evaluation note* Encounter Date Diagnosis Assessment Notes Treatment Notes Treatment Clinical Notes Apr, Primary hypertension (ICD-10 - I10) [facility] Other 02-27-2023 Evaluation note* Encounter Date Diagnosis [...] (ICD-10 - F17.211) Continue abstinence Apr, Other REo [facility] Other 02-27-2023 History of Present illness Narrative* Sudheer Haro MD - 05/21/2022 10:00 AM EST Images from the original note were not included. EMERGENCY TRIAGE, TREAT AND TRANSPORT (ET3) DOCUMENTATION OF TELEHEALTH VISIT Date / Time: 05/21/2022944 Name: Genny Barboza : 1940 SSN: (Not on file) EMS Agency: [facility] [x] Verbal consent obtained [] Implied [...] the typically is not available at a [place] primary care physician's office.Patient declined using ambulance go to the ER, and her daughter who was present on scene will driveher the 4 minutes will take to get to the [place] [facility]. I advised her to call 911 [...] by: Sudheer Haro MD documented in this [id number] Evaluation note* Encounter Date Diagnosis Assessment Notes Treatment Notes Treatment Clinical Notes Apr, Nausea (ICD-10 - R11.0) [place] [facility] Other Evaluation note* Diagnosis Hypertensive urgency- Primary documented in this [facility] [employer] Other History general Narrative - Reported* Type [...] History CYSTOSCOPY Hospitalization History SEE SURGICAL HX [facility] Other Summary Purpose Family History No Family History Records FoundNo Family History Records Found Advance Directives No Advanced Directives Records FoundNo Advanced Directives Records Found Additional Source Comments Reason for Visit (unrecogniz ed section and content) right arm pain Reason Comments Headache Hypertension INFORMATION SOURCE (unrecogn ized section and content) DATE CREATED AUTHOR 05/23/2022 [facility] DATE CREATED AUTHOR AUTHOR'S ORGANIZ ATION 05/25/2022 [facility] [employer] [facility] FOR RECORDS PERTAINING TO PATIENTS WHO [...] BE BASED ON THE PRIMARY CLINICAL RECORDS. [facility]. provides no warranty or guarantee of the accuracy or completeness of information in this document.
--- NOTE | 2023-04-17 11:32 | CT_ITS ---
The [address] [address] Patient Name: EVER BREWER MRN: [id number] date: 1940 Sex: F Assigned Patient Location: CT Current Patient Location: CT Accession/Order Number: [id number] Exam Date: 04/17/2023 12:48 Report Date: 04/17/2023 13:50 At the request of: ERNESTO FRAGA Procedure: CT abdomen pelvis w con EXAM: CT abdomen pelvis w con HISTORY: Left Lower Quadrant Pain R10.32 Diarrhea R19.7 COMPARISON: CT abdomen pelvis 08/15/2020.. TECHNIQUE: Following intravenous administration of 90 mL of Omnipaque 350, axial soft tissue windows of the abdomen and pelvis were performed with coronal and sagittal reformats. CT dose reduction technique was used including Automated Exposure Control. Findings: Within the right lower lobe there is a small patchy region of consolidation. Minimal bilateral lower lobe atelectasis. ABDOMEN: Stable cyst within segment 7 of the liver. The gallbladder, spleen, pancreas, and adrenal glands are unremarkable. Bilateral renal low-attenuation lesions, too small to characterize. Off the lower pole the left kidney is an exophytic 1.3 cm cyst. Within the interpolar region of the left kidney there is a fat density 0.7 cm lesion likely representing an angiomyolipoma. Nonobstructing 0.2 cm stone within the lower pole the left kidney. No collecting system or ureteral dilatation bilaterally. There are postsurgical changes involving the sigmoid colon. Otherwise, the bowel is unremarkable without evidence of wall thickening or obstruction. The appendix is is not definitely identified. The aorta is normal caliber. Mild atherosclerotic disease. No enlarged abdominal lymph nodes or or free abdominal fluid. Pelvis: Small diverticulum off the left posterior lateral bladder wall. No bladder calculi. The uterus is surgically absent. No enlarged pelvic lymph nodes or free pelvic fluid. Large right sided and partially visualized hip fat density lesion likely representing a lipoma. This measures approximately 8.[address]/CT abdomen pelvis w con IMPRESSION: 1. Patchy region of consolidation within the right lower lobe may relate to atelectasis. Pneumonia can have a similar appearance. If indicated, suggest follow-up imaging to assess for complete resolution. 2. Nonobstructing left renal stone. 3. Renal cyst. Left renal angiomyolipoma 4. Bladder diverticulum 5. Redemonstrated is a right hip fat density lesion likely representing a lipoma. Electronically authenticated by: SADE ENGLISH Date: 04/17/2023 13:50
== END 2023-04-17 11:27 | disposition home or self-care (01) ==
LOC: CT 11:26
PROVIDERS: PCP Internal Medicine; Visit Provider Internal Medicine
DX: R19.7 Diarrhea, unspecified (principal); R10.32 Left lower quadrant pain; N20.0 Calculus of kidney; N32.3 Diverticulum of bladder; N28.1 Cyst of kidney, acquired; D17.71 Benign lipomatous neoplasm of kidney
CPT/HCPCS: 74177; Q9967

== ENCOUNTER 2023-04-22 12:49 | Outpatient (OUT) | payer MEDICARE, SELFPAY ==
--- OUTSIDE RECORDS SUMMARY | 2023-04-22 12:53 | XMS_ITS | CCD ---
Author Name Unknown Address [address] [facility] [address] [place] [address] Organization [facility] Care Team Providers Care Medical Dosimetrist Name Role Phone Unavailable Primary Care Provider Peter FRAGA, DR OROZCO Primary Care Unavailable MAUREEN ., ALBERTO Admitting Unavailable MAUREEN ., ALBERTO Attending Unavailable MAUREEN ., ALBERTO Consulting Unavailable FLORIAN, DR OROZCO Admitting Unavailable FLORIAN, DR OROZCO Attending Unavailable FLORIAN, DR OROZCO Consulting Unavailable FLORIAN, DR OROZCO Primary Care Unavailable SHOAIB, DR JOAQUIN Canales Consulting Unavailable FLORIAN, DR OROZCO Admitting Unavailable FLORIAN, DR OROZCO Attending Unavailable FLORIAN, DR OROZCO Consulting Unavailable FLORIAN, DR OROZCO Primary Care Unavailable HARDY, DR KALPANA Phelps Consulting Unavailable PROVIDER, UNKNOWN Attending Unavailable PROVIDER, UNKNOWN Admitting Unavailable Florian, Branden Unavailable Allergies Allergy Classification Reported Allergen(s) Allergy Type Date of Onset Reaction(s) Facility (1 source) Penicillins Drug allergy (disorder) 4 [facility] Repository (9 sources) Substance with penicillin structure and antibacterial mechanism of action (substance) Drug allergy 4 Unknown [facility] Other Medications Current Medications Medication Drug Class(es) [...] Episodic Other aftercare (1 source) Other intermediate (current) drug therapy; Translations: [OTH ASSISTED CURRENT DRUG THERAPY] Onset: 05-22-2022 Episodic Other [...] Urinalysis - DIPSTICKon 06-0 Appearance (U) clear [employer] Other Bilirubin Ql (U) Negative [employer] Other Color (U) light yellow [facility] Other Glucose Ql (U) Negative [employer] Other Hemoglobin Ql (U) Negative [employer] Other Ketones Ql (U) Negative [employer] Other Leukocyte esterase Test strip Ql (U) Negative [facility] Other Nitrite Ql (U) Negative [employer] [facility] Other pH (U) 5.0 [pH] [facility] Other Protein Ql (U) Negative [employer] [facility] Other Specific gravity (U) [Rel density] 1.005 [facility] Other Urobilinogen (U) [Mass/Vol] 0.5 mg/dL [facility] Other Urinalysis - DIPSTICK [employer] Other CBC AUTO DIFFon 05-21-2022 BASO # 0.0 103/ul Normal 0.0-0.1 [facility] Comment on above: Performed By: #### C BC #### [facility] [address] [place] [address] Dr. Arlyn Chan Basophils/100 WBC (Bld) 0.6 % Normal 0.2-2.0 [facility] Comment on above: Performed By: #### C BC #### [facility] [address] [place] [address] Dr. Arlyn Chan EO # 0.1 103/ul Normal 0.0-0.7 [facility] Comment on above: Performed By: #### C BC #### [facility] [address] [place] [address] Dr. Arlyn Chan Eosinophils/100 WBC (Bld) 1.1 % Normal 0.9-7.0 [facility] Comment on above: Performed By: #### C BC #### [facility] [address] [place] [address] Dr. Arlyn Chan Erythrocyte distribution width (RBC) [Ratio] 13.6 % Normal 11.0-15.0 [facility] Comment on above: Performed By: #### C BC #### [facility] [address] [place] [address] Dr. Arlyn Chan Hematocrit (Bld) [Volume fraction] 44.3 % Normal 36.0-48.0 [facility] Comment on above: Performed By: #### C BC #### [facility] [address] [place] [address] Dr. Arlyn Chan Hemoglobin (Bld) [Mass/Vol] 14.8 g/dL Normal 12.0-16.0 [facility] Comment on above: Performed By: #### C BC #### [facility] [address] [place] [address] Dr. Arlyn Chan IG # 0.00 10e3/ul Normal 0.00-0.03 [facility] Comment on above: Performed By: #### C BC #### [facility] [address] [place] [address] Dr. Arlyn Chan IG % 0.0 % Normal 0.0-0.5 [facility] Comment on above: Performed By: #### C BC #### [facility] [address] [place] [address] Dr. Arlyn Chan LYMPH # 1.7 103/ul Normal 1.2-3.8 [facility] Comment on above: Performed By: #### C BC #### [facility] [address] [place] [address] Dr. Arlyn Chan Lymphocytes/100 WBC (Bld) 31.1 % Normal 20.5-60.0 [facility] Comment on above: Performed By: #### C BC #### [facility] [address] [place] [address] Dr. Arlyn Chan MANUAL DIFF REQ NO Normal [facility] Comment on above: Performed By: #### C BC #### [facility] [address] [place] [address] Dr. Arlyn Chan MCH (RBC) [Entitic mass] 31.9 pg Normal 26.7-34.0 [facility] Comment on above: Performed By: #### C BC #### [facility] [address] [place] [address] Dr. Arlyn Chan MCHC (RBC) [Mass/Vol] 33.4 g/dL Normal 29.9-35.2 [facility] Comment on above: Performed By: #### C BC #### [facility] [address] [place] [address] Dr. Arlyn Chan MCV (RBC) [Entitic vol] 95.5 fL Normal 81.0-99.0 [facility] Comment on above: Performed By: #### C BC #### [facility] [address] [place] [address] Dr. Arlyn Chan MONO # 0.5 103/ul Normal 0.3-0.8 [facility] Comment on above: Performed By: #### C BC #### [facility] [address] [place] [address] Dr. Arlyn Chan Monocytes/100 WBC (Bld) 8.8 % Normal 1.7-12.0 [facility] Comment on above: Performed By: #### C BC #### [facility] [address] [place] [address] Dr. Arlyn Chan NEUT # 3.1 103/ul Normal 1.4-6.5 [facility] Comment on above: Performed By: #### C BC #### [facility] [address] [place] [address] Dr. Arlyn Chan Neutrophils/100 WBC (Bld) 58.4 % Normal 43.0-75.0 [facility] Comment on above: Performed By: #### C BC #### [facility] [address] [place] [address] Dr. Arlyn Chan Platelet mean volume (Bld) [Entitic vol] 10.0 fL Normal 9.5-13.5 [facility] Comment on above: Performed By: #### C BC #### [facility] [address] [place] [address] Dr. Arlyn Chan PLT 242 103/ul Normal 150-450 [facility] Comment on above: Performed By: #### C BC #### [facility] [address] [place] [address] Dr. Arlyn Chan RBC 4.64 106/ul Normal 4.20-5.40 [facility] Comment on above: Performed By: #### C BC #### [facility] [address] [place] [address] Dr. Arlyn Chan WBC 5.4 103/ul Normal 4.0-11.0 [facility] Comment on above: Performed By: #### C BC #### [facility] [address] [place] [address] Dr. Arlyn Chan PROF CHEM 8 (BAS METB)on Anion gap [Moles/Vol] 13.9 mmol/L Normal [facility] Comment on above: Performed By: #### H STROPN, BMP #### [facility] [address] [place] [address] Dr. Arlyn Chan Calcium [Mass/Vol] 9.4 mg/dL Normal 8.5-10.1 [facility] Comment on above: Performed By: #### H STROPN, BMP #### [facility] [address] [address] [address] Arlyn Chan Chloride [Moles/Vol] 105 mmol/L Normal 98-107 [facility] Comment on above: Performed By: #### H STROPN, BMP #### [facility] [address] [address] [address] Arlyn Chan CO2 [Moles/Vol] 24.3 mmol/L Normal 21.0-32.0 [facility] Comment on above: Performed By: #### H STROPN, BMP #### [facility] [address] [place] [address] Dr. Arlyn Chan Creatinine [Mass/Vol] 0.76 mg/dL Normal 0.55-1.02 [facility] Comment on above: Performed By: #### H STROPN, BMP #### [facility] [address] [address] [address] Arlyn Chan EGFR-AF RWANDAN >60 Normal >=60 [facility] Comment on above: Performed By: #### H STROPN, BMP #### [facility] [address] [place] [address] Dr. Arlyn Chan EGFR-NON AF RWANDAN >60 Normal >=60 [facility] Comment on above: Performed By: #### H STROPN, BMP #### [facility] [address] [address] [address] Arlyn Chan Glucose [Mass/Vol] 96 mg/dL Normal 74-106 [facility] Comment on above: Performed By: #### H STROPN, BMP #### [facility] [address] [address] [address] Arlyn Chan Potassium [Moles/Vol] 4.2 mmol/L Normal 3.5-5.1 [facility] Comment on above: Performed By: #### H STROPN, BMP #### [facility] [address] [address] [address] Arlyn Chan Sodium [Moles/Vol] 139 mmol/L Normal 136-145 [facility] Comment on above: Performed By: #### H YURI, BMP #### [facility] [address] [address] [address] Arlyn Chan Urea nitrogen [Mass/Vol] 21.0 mg/dL Critically high 7.0-18.0 [facility] Comment on above: Performed By: #### H YURI, BMP #### [facility] [address] [address] [address] Arlyn Chan Urea nitrogen/Creatinine [Mass ratio] 27.6 mg/mg Normal [facility] Comment on above: Performed By: #### H YURI, BMP #### [facility] [address] [place] [address] Dr. Aryln Chan Progress Noteson 05-21-2022 Legal Adviser Authentication Interface Message Text EMERGENCY TRIAGE, TREAT AND TRANSPORT (ET3) DOCUMENTATION OF TELEHEALTH VISIT Date / Time: 05/21/2022944 Name: Genny Barboza : 1940 SSN: (Not on file) EMS Agency: [facility] [x] Verbal consent obtained [] [...] minutes will take to get to the [facility]. I advised her to call 911 [...] Completed by: Sudheer Haro MD Normal [facility] [employer] TROPONIN, HIGH SENSITIVITYon 05-21-2022 HSTROP 5.9 pg/mL Normal 4.0-51.3 [facility] Comment on above: Result Comment: CUT- OFF POINTS HAVE BEEN ESTABLISHED BASED ON THE FOURTH UNIVERSAL DEFINITIONS OF MYOCARDIAL INFARCTION. THE UPPER REFERENCE LIMIT (URL) OF TROPONIN, DEFINED THE 99TH PERCENTILE OF cTnI DISTRIBUTION IN A REFERENCE POPULATION, HAS BEEN CONFIRMED THE DECISION THRESHOLD FOR SC DIAGNOSIS. Performed By: #### H KALIN, BMP #### [facility] [address] [address] [address] Arlyn Chan MG MAMM SCREEN 3D VINNY CADon 02-08-2022 MG MAMM SCREEN 3D VINNY CAD Patient: GENNY BARBOZA Exam Date: 02/08/2022 : 1940 Gender:F Ordering : DR BRANDEN FRAGA D.O. Admission #: [id number] Family : Order #: [id number] CLICK HERE TO VIEW EXAM RADIOLOGY REPORT [...] bowel resection Family Cancers None LOCATION: [facility] BREAST COMPOSITION: Scattered areas fibroglandular density. [...] MD on 02/08/2022 at 14:06 Normal [facility] CT CHEST WO CONon 08-11-2021 CT [...] by: JOAQUIN SOTO Date: 2021-08-11 17:29 Normal [facility] Vital Signs Date Time Vital Sign Value Performing Clinician Facility 04-12-2023 11:30-0500 Body height 165.1 cm Branden Ball Other [facility] Other 04-12-2023 11:30-0500 Body mass index (BMI) [Ratio] 24.59 kg/m2 Branden Ball Other [facility] Other 04-12-2023 11:30-0500 Body weight 67.04 kg Branden Ball Other [facility] Other 04-12-2023 11:30-0500 Diastolic blood pressure 75 mm[Hg] Branden Ball Other [facility] Other 04-12-2023 11:30-0500 Respiratory rate 12 /min Branden Ball Other [facility] Other 04-12-2023 11:30-0500 Systolic blood pressure 122 mm[Hg] Branden Ball Other [facility] Other 03-26-2023 11:30-0500 Body height 165.1 cm Branden Ball Other [facility] Other 03-26-2023 11:30-0500 Body mass index (BMI) [Ratio] 24.89 kg/m2 Branden Ball Other [facility] Other 03-26-2023 11:30-0500 Body weight 67.86 kg Branden Ball Other [facility] Other 03-26-2023 11:30-0500 Diastolic blood pressure 82 mm[Hg] Branden Ball Other [facility] Other 03-26-2023 11:30-0500 Respiratory rate 12 /min Branden Ball Other [facility] Other 03-26-2023 11:30-0500 Systolic blood pressure 192 mm[Hg] Branden Ball Other [facility] Other 02-08-2023 13:30-0500 Body height 165.1 cm Branden Ball Other [facility] Other 02-08-2023 13:30-0500 Body mass index (BMI) [Ratio] 24.29 kg/m2 Branden Ball Other [facility] Other 02-08-2023 13:30-0500 Body weight 66.23 kg Branden Ball Other [facility] Other 02-08-2023 13:30-0500 Diastolic blood pressure 79 mm[Hg] Branden Ball Other [facility] Other 02-08-2023 13:30-0500 Respiratory rate 12 /min Branden Ball Other [facility] Other 02-08-2023 13:30-0500 Systolic blood pressure 128 mm[Hg] Branden Ball Other [facility] Other 08-27-2022 11:15-0400 Body height 165.1 cm Branden Ball Other [facility] Other 08-27-2022 11:15-0400 Body mass index (BMI) [Ratio] 24.06 kg/m2 Branden Ball Other [facility] Other 08-27-2022 11:15-0400 Body weight 65.59 kg Branden Ball Other [facility] Other 08-27-2022 11:15-0400 Diastolic blood pressure 83 mm[Hg] Branden Ball Other [facility] Other 08-27-2022 11:15-0400 Respiratory rate 12 /min Branden Ball Other [facility] Other 08-27-2022 11:15-0400 Systolic blood pressure 152 mm[Hg] Branden Ball Other [facility] Other 07-09-2022 15:00-0400 Body height 165.1 cm Branden Ball Other [facility] Other 07-09-2022 15:00-0400 Body mass index (BMI) [Ratio] 23.23 kg/m2 Branden Ball Other [facility] Other 07-09-2022 15:00-0400 Body weight 63.32 kg Branden Ball Other [facility] Other 07-09-2022 15:00-0400 Diastolic blood pressure 72 mm[Hg] Branden Ball Other [facility] Other 07-09-2022 15:00-0400 Respiratory rate 12 /min Branden Ball Other [facility] Other 07-09-2022 15:00-0400 Systolic blood pressure 134 mm[Hg] Branden Ball Other [facility] Other 05-21-2022 15:45-0500 Body height 165.1 cm Branden Ball Other [facility] Other 05-21-2022 15:45-0500 Body mass index (BMI) [Ratio] 24.56 kg/m2 Branden Fraga Other [facility] Other 05-21-2022 15:45-0500 Body weight 66.95 kg Branden Fraga Other [facility] Other 05-21-2022 15:45-0500 Diastolic blood pressure 82 mm[Hg] Branden Fraga Other [facility] Other 05-21-2022 15:45-0500 Respiratory rate 12 /min Branden Fraga Other [facility] Other 05-21-2022 15:45-0500 Systolic blood pressure 136 mm[Hg] Branden Fraga Other [facility] Other 05-21-2022 09:45-0500 Diastolic blood pressure 92 [...] 04-12-2023 End: 04-12-2023 ambulatory Branden Fraga Other [facility] Other Start: 04-12-2023 Office outpatient vi sit 15 minutes Branden Fraga CRISTHIAN [facility] Start: 04-12-2023 Telephone encounter Branden Fraga [facility] Start: 04-08-2023 End: 04-08-2023 ambulatory Branden Fraga Other [facility] Other Start: 04-08-2023 Telephone encounter Branden Fraga BISH[facility] Start: 04-01-2023 End: 04-01-2023 ambulatory Branden Ball Other [facility] Other Start: 04-01-2023 Telephone encounter Branden Ball [facility] Start: 03-27-2023 End: 03-27-2023 ambulatory Branden Ball Other [facility] Other Start: 03-27-2023 Telephone encounter Branden Ball [facility] Start: 03-26-2023 End: 03-26-2023 ambulatory Branden Ball Other [facility] Other Start: 03-26-2023 Office outpatient vi sit 15 minutes Branden Ball [facility] Start: 03-14-2023 End: 03-14-2023 ambulatory Branden Ball Other [facility] Other Start: 03-14-2023 Telephone encounter Branden Ball [facility] Start: 02-19-2023 End: 02-19-2023 ambulatory Branden Ball Other [facility] Other Start: 02-19-2023 Telephone encounter Branden Fraga [facility] Start: 02-08-2023 End: 02-08-2023 ambulatory Branden Ball Other [facility] Other Start: 02-08-2023 Patient encounter procedure Branden Ball [facility] Start: 09-20-2022 End: 09-20-2022 ambulatory Branden Ball Other [facility] Other Start: 09-20-2022 Telephone encounter Branden Ball [facility] Start: 08-27-2022 End: 08-27-2022 ambulatory Branden Ball Other [facility] Other Start: 08-27-2022 Office outpatient vi sit 15 minutes Branden Ball [facility] Start: 08-24-2022 End: 08-24-2022 ambulatory Branden Ball Other [facility] Other Start: 08-24-2022 Nursing evaluation o f patient and report Branden Florian [facility] Start: 07-09-2022 End: 07-09-2022 ambulatory Branden Fraga Other [facility] Other Start: 07-09-2022 Office outpatient vi sit 15 minutes Branden Fraga [facility] Start: 06-12-2022 End: 06-12-2022 ambulatory Branden Fraga Other [facility] Other Start: 06-12-2022 Telephone encounter Branden Fraga [facility] Start: 06-11-2022 End: 06-11-2022 ambulatory Branden Fraga Other [facility] Other Start: 06-11-2022 Telephone encounter Branden Fraga [facility] Start: 05-22-2022 End: 05-22-2022 ambulatory Branden Fraga Other [facility] Other Start: 05-22-2022 Telephone encounter Branden Florian [facility] Start: 05-21-2022 Office outpatient vi sit 15 minutes Branden Fraga [facility] Start: 05-21-2022 End: 05-23-[address] BRANDEN FRAGA Facility: Start: 05-21-2022 End: 05-21-2022 [facility]ulatory [facility] Start: 05-21-2022 End: 05-21-2022 Emergency department [facility] Comment on above: Arrived Start: 05-04-2022 End: 05-04-2022 ambulatory Branden Florian Other [facility] Other Start: 05-04-2022 Telephone encounter Branden Fraga [facility] Start: 05-03-2022 End: 05-03-2022 ambulatory Branden Florian Other [facility] Other Start: 05-03-2022 Telephone encounter Branden Fraga [...] - Serum or Plasma Basic Metabolic Panel [facility] Immunizations Immunization Date Immunization Notes Care Provider Fa cility 12-13-2021 influenza virus vaccine, split virus (incl. purified surface antigen) Branden Fraga Other [facility] Other 12-14-2020 influenza virus vaccine, split virus (incl. purified surface antigen) Branden Fraga Other [facility] Other 12-04-2019 influenza virus vaccine, split virus (incl. purified surface antigen) Branden Fraga Other [facility] Other 12-16-2018 influenza virus vaccine, split virus (incl. purified surface antigen) Branden Fraga Other [facility] Other 01-15-2018 influenza virus vaccine, split virus (incl. purified surface antigen) Branden Fraga Other [facility] Other 01-12-2017 influenza virus vaccine, split virus (incl. purified surface antigen) Branden Fraga Other [facility] Other 12-27-2015 influenza virus vaccine, split virus (incl. purified surface antigen) Branden Fraga Other [facility] Other 01-28-2015 pneumococcal conjuga te vaccine, 13 valent Branden Fraga Other [facility] Other Payers Date Payer Category Payer Unknown SP/UNINSURED PEN DING FINANCIAL PROGRAM EVALUATION [id number] 2022-Present [phone] [address] [place] [address] Other [id number] 2022 Unknown [id number] 1959 Medicare [id number] 1959 Unknown [id number] 1940 Unknown [id number] 1940 Unknown [id number] 1940 Unknown [id number] 1940 Unknown [id number] Social History Date Type Detail Facility Tobacco smoking status UTIS Tobacco smoking consumption unknown [facility] Start: 1940 Sex Assigned At [facility] on file [facility] Sex Assigned At Sex Assigned At Bir th [facility] Other Clinical Notes 05-04-2022 to 04-12-2023 Note [...] upper extremity, initial encounter (ICD-10 - S40.021A) [facility] Other 01-15-2024 Evaluation note* Encounter Date Diagnosis Assessment Notes Treatment Notes Treatment Clinical Notes Mar, Left lower quadrant abdominal pain (ICD-10 - R10.32) Mar, Diarrhea, unspecified type (ICD-10 - R19.7) [facility] Other 01-08-2024 Evaluation note* Encounter Date Diagnosis Assessment Notes Treatment Notes Treatment Clinical Notes Mar, Irritable bowel syndrome without diarrhea (ICD-10 - K58.9) [facility] Other 01-02-2024 Evaluation note* Encounter Date Diagnosis [...] would refer for colonoscopy to exclude colitis [facility] Other 12-21-2023 Evaluation note* Encounter Date Diagnosis Assessment Notes Treatment Notes Treatment Clinical Notes Feb, Gastroesophageal ref lux disease with esophagitis without hemorrhage (ICD-10 - K21.00) [facility] Other 11-28-2023 Evaluation note* Encounter Date Diagnosis Assessment Notes Treatment Notes Treatment Clinical Notes Jan, Dysuria (ICD-10 - R30.0) [facility] Other 11-17-2023 Evaluation note* Encounter Date Diagnosis [...] patient on monthly SBE and yearly mammograms. [facility] Other 06-29-2023 Evaluation note* Encounter Date Diagnosis Assessment Notes Treatment Notes Treatment Clinical Notes Aug, Primary hypertension (ICD-10 - I10) [facility] Other 06-05-2023 Evaluation note* Encounter Date Diagnosis [...] best 2/3 readings w/ goal < 135-85 [facility] Other 06-02-2023 Evaluation note* Encounter Date Diagnosis Assessment Notes Treatment Notes Treatment Clinical Notes Aug, Dysuria (ICD-10 - R30.0) [facility] Other 04-17-2023 Evaluation note* Encounter Date Diagnosis Assessment Notes Treatment Notes Treatment Clinical Notes Jun, Primary hypertension (ICD-10 - I10) This patient is instructed to consume a healthy, low-fat, low-salt diet. They are also encouraged to continue exercise to achieve/maintain a normal BMI. Jun, Nicotine dependence, cigarettes, in remission (ICD-10 - F17.211) Continue abstinence [facility] Other 03-21-2023 Evaluation note* Encounter Date Diagnosis Assessment Notes Treatment Notes Treatment Clinical Notes May, Primary hypertension (ICD-10 - I10) [facility] Other 03-20-2023 Evaluation note* Encounter Date Diagnosis Assessment Notes Treatment Notes Treatment Clinical Notes May, Primary hypertension (ICD-10 - I10) [facility] Other 02-28-2023 Evaluation note* Encounter Date Diagnosis Assessment Notes Treatment Notes Treatment Clinical Notes Apr, Primary hypertension (ICD-10 - I10) [facility] Other 02-27-2023 Evaluation note* Encounter Date Diagnosis [...] - F17.211) Continue abstinence Apr, Other REo [facility] Other 02-27-2023 History of Present illness Narrative* Sudheer Haro MD - 05/21/2022 10:00 AM EST Images from the original note were not included. EMERGENCY TRIAGE, TREAT AND TRANSPORT (ET3) DOCUMENTATION OF TELEHEALTH VISIT Date / Time: 05/21/2022944 Name: Genny Barboza : 1940 SSN: (Not on file) EMS Agency: [facility] [x] Verbal consent obtained [] [...] the typically is not available at a [place] primary care physician's office.Patient declined using ambulance go to the ER, and her daughter who was present on scene will driveher the 4 minutes will take to get to the [facility]. I advised her to call 911 [...] by: Sudheer Haro MD documented in this [id number] Evaluation note* Encounter Date Diagnosis Assessment Notes Treatment Notes Treatment Clinical Notes Apr, Nausea (ICD-10 - R11.0) [employer] Other Evaluation note* Diagnosis Hypertensive urgency- Primary documented in [facility] [employer] Other History general Narrative - Reported* Type [...] History CYSTOSCOPY Hospitalization History SEE SURGICAL HX [facility] Other Summary Purpose Family History No Family [...] CREATED AUTHOR AUTHOR'S ORGANIZ ATION 05/25/2022 [facility] FOR RECORDS PERTAINING TO PATIENTS WHO [...] BE BASED ON THE PRIMARY CLINICAL RECORDS. [facility] [employer] [facility]. provides no warranty or guarantee of the accuracy or completeness of information in this document.
--- NOTE | 2023-04-22 13:16 | CT_ITS ---
[address] [address] Patient Name: EVER BREWER MRN: [id number] date: 1940 Sex: F Assigned Patient Location: CT Current Patient Location: CT Accession/Order Number: [id number] Exam Date: 04/22/2023 12:59 Report Date: 04/22/2023 13:39 At the request of: ERNESTO FRAGA Procedure: CT chest w con EXAMINATION: CT chest w con HISTORY: lung mass R91.8 COMPARISON: 04/17/2023 TECHNIQUE: Multi-planar CT images were created with IV contrast. Axial, Coronal, and Sagittal images. Dose reduction techniques were achieved by using automated exposure control and/or adjustment of mA and/or kV according to patient size and/or use of iterative reconstruction technique. FINDINGS: LUNGS: 1.5 x 2.3 cm left upper lobe nodule with a solid component measuring 1.5r by 1.0 cm the surrounding halo of groundglass attenuation, this is best visualized on axial image 17 and 18. Additional nodule identified in the medial basilar segment of the right lower lobe measuring 1.7 x 1.0 cm, axial image #73. This appears grossly stable accounting for differences in slice selection. PLEURA: No mass, effusion, or pneumothorax. VASCULATURE: Normal postcontrast opacification of the central pulmonary arterial tree with no filling defects GURPREET: No mass or adenopathy. MEDIASTINUM: No mass or adenopathy. CARDIAC: No enlargement or pericardial effusion. Mild coronary atherosclerosis. AORTA: No aneurysm or dissection. CHEST WALL: Bilateral small thyroid nodules. BONES: No bone lesion or fracture. LIMITED ABDOMEN: Diffuse hypoattenuation of the liver suggesting hepatic steatosis. Hypodensity in the right hepatic lobe possibly a cyst OTHER: Negative. CT/CT chest w con IMPRESSION: 2 focal lung nodules, the most suspicious in the left upper lobe. Malignancy should be excluded. Consider PET scan or biopsy for further diagnosis Electronically authenticated by: KALPANA SCHRADER Date: 04/22/2023 13:39
== END 2023-04-22 12:50 | disposition home or self-care (01) ==
LOC: CT 12:49
PROVIDERS: PCP Internal Medicine; Visit Provider Internal Medicine
DX: R91.8 Other nonspecific abnormal finding of lung field (principal)
CPT/HCPCS: 71260; Q9967

== ENCOUNTER 2023-05-28 10:18 | Outpatient (OUT) | payer MEDICARE, SELFPAY ==
--- NOTE | 2023-05-28 10:23 | MR_ITS ---
The [address] [address] Patient Name: EVER BREWER MRN: [id number] date: 1940 Sex: F Assigned Patient Location: MRI Current Patient Location: Accession/Order Number: [id number] Exam Date: 05/28/2023 10:37 Report Date: 05/30/2023 12:24 At the request of: ERNESTO FRAGA Procedure: MR shoulder RT wo con EXAM: MR shoulder RT wo con REASON FOR EXAM: Right Shoulder Pain M25.511. TECHNIQUE: Multiplanar, multisequence imaging of the right shoulder was performed without contrast COMPARISON: Radiographs 04/12/2023. FINDINGS: Study mildly degraded by motion. The AC joint is congruent with joint space narrowing, capsular hypertrophy and subchondral edema cystic changes. Inferior marginal osteophytes mildly narrow the supraspinatus outlet. Small to moderate amount of fluid is present within the subacromial subdeltoid bursa. Superimposed on tendinosis, there is diffuse intermediate to high-grade partial-thickness articular sided tearing of the supraspinatus and infraspinatus tendons. No definite full-thickness tear is not identified. The teres minor tendon is intact. The subscapularis tendon is intact. The extracapsular biceps tendon is within the bicipital groove. Mild thickening and intermediate signal of the intracapsular biceps tendon is consistent with tendinosis. No tear identified. The rotator cuff musculature demonstrates symmetric bulk and signal. The humerus is centered on the glenoid. Diffuse intermediate grade chondrosis the glenohumeral cartilage. Diminutive appearance of the anterior inferior labrum could reflect labral degeneration versus tear. There is also moderate amount of fluid identified extending distally along the proximal medial humerus, likely reflecting inferior glenohumeral ligament tear of uncertain chronicity. Small moderate joint effusion decompresses in the subcoracoid bursa. Likely intraosseous ganglion cystic changes are noted involving the glenoid extending into the coracoid process. No acute fracture identified. The quadrilateral space is patent. No axillary lymphadenopathy. MR/MR shoulder RT wo con IMPRESSION: 1. Study mildly degraded by motion. 2. Rotator cuff tendinosis with intermediate to high-grade partial-thickness fullwidth tears of the supraspinatus and infraspinatus tendons. A definite full-thickness tear not identified. 3. Biceps tendinosis without tear. 4. Moderate acromioclavicular osteoarthritis with mild subacromial/subdeltoid bursitis. 5. Moderate glenohumeral osteoarthritis with anterior and anterior inferior labral tearing versus degeneration and probable inferior glenohumeral ligament tear of uncertain chronicity. Electronically authenticated by: MARGO LIAO Date: 05/30/2023 12:24
--- OUTSIDE RECORDS SUMMARY | 2023-05-28 10:27 | XMS_ITS | CCD ---
Author Name Unknown Address [address] [place] [address] Organization [facility] Care Team Providers Care Icu Staff Nurse Name Role Phone Unavailable Primary Care Provider Unavailjuan ramon FRAGA, DR OROZCO Primary Care Unavailable MAUREEN [...] Unavailable FLORIAN, DR OROZCO Primary Care Unavailable ARCADIA, DR KALPANA [employer] Unavailable PROVIDER, UNKNOWN Attending Unavailable PROVIDER, UNKNOWN Admitting Unavailable Branden Fraga Unavailable ELENA HASSAN Attending Unavailable DO Branden Fraga Primary Care Provider DO Branden Fraga Attending Provider Branden Fraga Unavailable Branden Fraga Primary Care Unavailable Branden Fraga Admitting Unavailable Allergies Allergy Classification Reported Allergen(s) Allergy Type Date of Onset Reaction(s) Facility (1 source) Penicillins Drug allergy (disorder) 4 [facility] Repository (12 sources) Substance with penicillin structure and antibacterial mechanism of action (substance) Drug allergy 4 Unknown [employer] Other (1 source) Penicillins Drug allergy (disorder) 4 [facility] Repository Medications Current Medications Medication Drug Class(es) Dates Sig (Normalized) Sig (Original) amLODIPine 5 mg oral tablet (1 source) Dihydropyridine Calcium Channel Niharika Start: 04-23-2023 take 1 tablet by mouth every twenty-four hours amLODIPine Besylate 5 MG 1 tablet Orally Once a day for 30 days Mar, Active famotidine 40 mg oral tablet (10 sources) Histamine-2 Receptor Antagonist Start: 03-14-2023 take 1 tablet by mouth every twenty-four hours Famotidine 40 MG 1 tablet at bedtime Orally Once a day for 30 days Feb, Active hyoscyamine sulfate 0.125 mg sublingual tablet (7 sources) Start: 04-01-2023 Levsin/SL 0.125 MG 1 tablet under the tongue and allow to dissolve as needed Sublingual before meals and HS for 10 days Mar, Active losartan potassium 50 mg oral tablet (20 sources) Angiotensin 2 Receptor Niharika Start: 05-22-2022 [...] Apr, Active meloxicam 15 mg oral tablet (15 sources) Nonsteroidal Anti-inflammatory Drug Start: 08-27-2022 take [...] mg / trimethoprim 160 mg oral tablet (11 sources) Dihydrofolate Reductase Inhibitor Antibacterial, Sulfonamide Antimicrobial [...] Unspecified fall, initial encounter Episodic Esophageal disorders (12 sources) Gastro-esophageal reflux disease with esophagitis; Translations: [...] Nausea Episodic Other aftercare (1 source) Other care home (current) drug therapy; Translations: [OTH PRISON CURRENT DRUG THERAPY] Onset: 05-22-2022 Episodic Other and unspecified benign neoplasm (20 sources) Lipoma of lower limb; Translations: [Benign lipomatous neoplasm of skin and subcutaneous tissue of right leg] Episodic Other and unspecified benign neoplasm (1 source) Benign lipomatous neoplasm of skin and subcutaneous tissue of right leg; Translations: [Lipoma of right lower extremity] Episodic Other connective tissue disease (1 source) Pain in right arm Episodic Other gastrointestinal disorders (7 sources) Irritable bowel syndrome; Translations: [Irritable bowel syndrome without diarrhea] Chronic Other gastrointestinal disorders (1 source) Irritable bowel syndrome without diarrhea Chronic Other gastrointestinal disorders (20 sources) Personal history of other diseases of the digestive system; Translations: [History of small bowel obstruction] Episodic Other gastrointestinal disorders (2 sources) Diarrhea, unspecified Episodic Other lower respiratory disease (9 sources) Solitary pulmonary nodule; Translations: [SOLITARY PULMONARY NODULE] Onset: 08-11-2021 Episodic Other lower respiratory disease (20 sources) Nodule of lung; Translations: [Solitary pulmonary nodule] Episodic Other lower respiratory disease (1 source) Other nonspecific abnormal finding of lung field Episodic Other screening for suspected conditions (not [...] Spondylosis; intervertebral disc disorders; other back problems (17 sources) Lumbar spondylosis; Translations: [Spondylosis without myelopathy [...] Test Name Value Interpretation Reference Range Facility Glucose Glucometer (BldC) [M ass/Vol]Ordered By: Branden Fraga on 05-06-2023 Glucose [Mass/Vol] 93 mg/dL [facility] Comment on above: Random Glucose Refer ence Range is dependent on time and content of last meal. Glucose of more than 200 mg/dL in a nonstressed, ambulatory subject supports the diagnosis of Diabetes Mellitus. Glucose Poct Glucometerson 0 05-06-2023 Glucose [Mass/Vol] 93 mg/dL Normal [facility] Comment on above: Result Comment: [place] Glucose Reference Range is dependent on time and content of last meal. Glucose of more than 200 mg/dL in a nonstressed, ambulatory subject supports the diagnosis of Diabetes Mellitus. PERFORMED BY: [place] [address] PATHOLOGIST STRATEGIC [employer]IANCES MANAGER KAYLIN ARDON M.D. Performed By: #### G JL #### Point of Care testing , PET tumor init tx strat sb-m ton 05-06-2023 PET tumor init tx strat sb-mt [facility] [address] [place] [address] Nuclear Medicine Report Signed Patient: Genny Barboza MR#: [id number] : 1940 Acct:[id number] Age/Sex: 82 / F ADM Date: 05/06/23 Loc: Room: Type: [facility] Attending Dr: Branden Fraga DO Copies to: DO Reginaldo Soni Jr, DO Ordering Provider: Branden Fraga DO Date of Service: 05/06/23 PET/PET tumor init tx strat sb-mt: ABNORMAL CT PET/CT FUSION IMAGING CLINICAL INFORMATION: Colon cancer COMPARISON : Outside CT chest, abdomen and pelvis 04/22/2023 TECHNIQUE: Noncontrasted CT scan from the base of the skull to the upper thigh followed by PET imaging. Multiplanar PET/CT fusion images. Blood Glucose : 96 mg/dL The F-18 FDG 13.9mCi. FINDINGS: Neck: No focal abnormal activity. Chest:The patient's known lung nodules are not FDG avid. SUV max 1.3 No abnormal activity is seen within the chest. Abdomen/pelvis: No abnormal activity. Soft tissue/bones: No abnormal activity. CT findings: No pneumothorax. No pericardial or pleural effusions. No free air or free fluid. 8 mm angiomyolipoma left kidney. 3 mm stone left kidney. Lipoma right thigh musculature. PET/PET tumor init tx strat sb-mt IMPRESSION: The patient's lung nodules are not FDG avid. CT follow-up is recommended. No PET/CT evidence of metastatic disease. Impression dictated by: Reginaldo Rivas Jr., D.O.05/06/2023 1:35 PM Dictation Location: [place] [address] Transcribed By: [facility] 05/06/23 1335 Dictated By: Reginaldo Rivas Jr, DO 05/06/23 1326 Signed By: 05/06/23 1335 [facility] Urinalysis - DIPSTICKon 06-0 Appearance (U) clear [employer] Other Bilirubin Ql (U) Negative [employer] Other Color (U) light yellow [employer] Other Glucose Ql (U) Negative [employer] Other Hemoglobin Ql (U) Negative [employer] Other Ketones Ql (U) Negative [employer] Other Leukocyte esterase Test strip Ql (U) Negative [employer] Other Nitrite Ql (U) Negative [employer] Other pH (U) 5.0 [pH] [employer] Other Protein Ql (U) Negative [employer] Other Specific gravity (U) [Rel density] 1.005 [employer] Other Urobilinogen (U) [Mass/Vol] 0.5 mg/dL [employer] Other Urinalysis - DIPSTICK [employer] Other CBC AUTO DIFFon 05-21-2022 BASO # 0.0 103/ul Normal 0.0-0.1 [facility] Comment on above: Performed By: #### C BC #### Laboratory [address] [place] [address] Dr. Arlyn Chan Basophils/100 WBC (Bld) 0.6 % Normal 0.2-2.0 [facility] Comment on above: Performed By: #### C BC #### Laboratory [address] [place] [address] Dr. Arlny Chan EO # 0.1 103/ul Normal 0.0-0.7 [facility] Comment on above: Performed By: #### C BC #### Laboratory [address] [place] [address] Dr. Arlyn Chan Eosinophils/100 WBC (Bld) 1.1 % Normal 0.9-7.0 [facility] Comment on above: Performed By: #### C BC #### Laboratory [address] [place] [address] Dr. Arlyn Chan Erythrocyte distribution width (RBC) [Ratio] 13.6 % Normal 11.0-15.0 [facility] Comment on above: Performed By: #### C BC #### Laboratory [address] [place] [address] Dr. Arlyn Chan Hematocrit (Bld) [Volume fraction] 44.3 % Normal 36.0-48.0 [facility] Comment on above: Performed By: #### C BC #### Laboratory [address] [place] [address] Dr. Arlyn Chan Hemoglobin (Bld) [Mass/Vol] 14.8 g/dL Normal 12.0-16.0 [facility] Comment on above: Performed By: #### C BC #### Laboratory [address] [place] [address] Dr. Arlyn Chan IG # 0.00 10e3/ul Normal 0.00-0.03 [facility] Comment on above: Performed By: #### C BC #### Laboratory [address] [place] [address] Dr. Arlyn Chan IG % 0.0 % Normal 0.0-0.5 The Comment on above: Performed By: #### C BC #### Laboratory [address] [place] [address] Dr. Arlyn Chan LYMPH # 1.7 103/ul Normal 1.2-3.8 [facility] Comment on above: Performed By: #### C BC #### Laboratory [address] [place] [address] Dr. Arlyn Chan Lymphocytes/100 WBC (Bld) 31.1 % Normal 20.5-60.0 [facility] Comment on above: Performed By: #### C BC #### Laboratory [address] [place] [address] Dr. Arlyn Chan MANUAL DIFF REQ NO Normal [facility] Comment on above: Performed By: #### C BC #### Laboratory [address] [place] [address] Dr. Arlyn Chan MCH (RBC) [Entitic mass] 31.9 pg Normal 26.7-34.0 [facility] Comment on above: Performed By: #### C BC #### Laboratory [address] [place] [address] Dr. Arlyn Chan MCHC (RBC) [Mass/Vol] 33.4 g/dL Normal 29.9-35.2 [facility] Comment on above: Performed By: #### C BC #### Laboratory [address] [place] [address] Dr. Arlyn Chan MCV (RBC) [Entitic vol] 95.5 fL Normal 81.0-99.0 [facility] Comment on above: Performed By: #### C BC #### Laboratory [address] [place] [address] Dr. Arlyn Chan MONO # 0.5 103/ul Normal 0.3-0.8 [facility] Comment on above: Performed By: #### C BC #### Laboratory [address] [place] [address] Dr. Arlyn Chan Monocytes/100 WBC (Bld) 8.8 % Normal 1.7-12.0 [facility] Comment on above: Performed By: #### C BC #### Laboratory [address] [place] [address] Dr. Arlyn Chan NEUT # 3.1 103/ul Normal 1.4-6.5 [facility] Comment on above: Performed By: #### C BC #### Laboratory [address] [place] [address] Dr. Arlyn Chan Neutrophils/100 WBC (Bld) 58.4 % Normal 43.0-75.0 The Comment on above: Performed By: #### C BC #### Laboratory [address] [address] [address] Arlyn Chan Platelet mean volume (Bld) [Entitic vol] 10.0 fL Normal 9.5-13.5 [facility] Comment on above: Performed By: #### C BC #### Laboratory [address] [address] [address] Arlyn Chan PLT 242 103/ul Normal 150-450 [facility] Comment on above: Performed By: #### C BC #### Laboratory [address] [place] [address] [address] Arlyn Chan RBC 4.64 106/ul Normal 4.20-5.40 [facility] Comment on above: Performed By: #### C BC #### Laboratory [address] [place] [address] Dr. Arlyn Chan WBC 5.4 103/ul Normal 4.0-11.0 [facility] Comment on above: Performed By: #### C BC #### Laboratory [address] [place] [address] Dr. Arlyn Chan PROF CHEM 8 (BAS METB)on Anion gap [Moles/Vol] 13.9 mmol/L Normal [facility] Comment on above: Performed By: #### H YURI, BMP #### Laboratory [address] [place] [address] Dr. Arlyn Chan Calcium [Mass/Vol] 9.4 mg/dL Normal 8.5-10.1 [facility] Comment on above: Performed By: #### H STROPN, BMP #### Laboratory [address] [address] [address] Arlyn Chan Chloride [Moles/Vol] 105 mmol/L Normal 98-107 [facility] Comment on above: Performed By: #### H STROPN, BMP #### Laboratory [address] [place] [address] Dr. Arlyn Chan CO2 [Moles/Vol] 24.3 mmol/L Normal 21.0-32.0 [facility] Comment on above: Performed By: #### H STROPN, BMP #### Laboratory [address] [address] [address] Arlyn Chan Creatinine [Mass/Vol] 0.76 mg/dL Normal 0.55-1.02 [facility] Comment on above: Performed By: #### H STROPN, BMP #### Laboratory [address] [place] [address] [address] Arlyn Chan EGFR-AF JAMAICAN >60 Normal >=60 [facility] Comment on above: Performed By: #### H STROPN, BMP #### Laboratory [address] [place] [address] [address] Arlyn Chan EGFR-NON AF JAMAICAN >60 Normal >=60 [facility] Comment on above: Performed By: #### H STROPN, BMP #### Laboratory [address] [place] [address] [address] Arlyn Chan Glucose [Mass/Vol] 96 mg/dL Normal 74-106 [facility] Comment on above: Performed By: #### H STROPN, BMP #### Laboratory [address] [address] [address] Arlyn Chan Potassium [Moles/Vol] 4.2 mmol/L Normal 3.5-5.1 [facility] Comment on above: Performed By: #### H STROPN, BMP #### Laboratory [address] [address] [address] Arlyn Chan Sodium [Moles/Vol] 139 mmol/L Normal 136-145 [facility] Comment on above: Performed By: #### H STROPN, BMP #### Laboratory [address] [address] [address] Arlyn Chan Urea nitrogen [Mass/Vol] 21.0 mg/dL Critically high 7.0-18.0 [facility] Comment on above: Performed By: #### H STROPN, BMP #### Laboratory [address] [address] [address] Arlyn Chan Urea nitrogen/Creatinine [Mass ratio] 27.6 mg/mg Normal The Comment on above: Performed By: #### H YURI, BMP #### Laboratory [address] [address] [address] 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 [x] Verbal consent obtained [] [...] the typically is not available at a [place] primary care physician's office. Patient declined using ambulance go to the ER, and her daughter who was present on scene will drive her the 4 minutes will take to get to the [place] ER. I advised her to call 911 [...] Completed by: Sudheer Haro MD Normal [facility] TROPONIN, HIGH SENSITIVITYon 05-21-2022 HSTROP 5.9 pg/mL Normal 4.0-51.3 The Comment on above: Result Comment: CUT- OFF POINTS HAVE BEEN ESTABLISHED BASED ON THE FOURTH UNIVERSAL DEFINITIONS OF MYOCARDIAL INFARCTION. THE UPPER REFERENCE LIMIT (URL) OF TROPONIN, DEFINED THE 99TH PERCENTILE OF cTnI DISTRIBUTION IN A REFERENCE POPULATION, HAS BEEN CONFIRMED THE DECISION THRESHOLD FOR [place] DIAGNOSIS. Performed By: #### H YURI, BMP #### Laboratory [address] [place] [address] Dr. Arlyn Chan MG MAMM SCREEN 3D VINNY CADon 02-08-2022 MG MAMM SCREEN 3D VINNY CAD Patient: GENNY BARBOZA Exam Date: 02/08/2022 : 1940 Gender:F Ordering : DR BRANDEN FRAGA D.O. Admission #: [id number] Family : Order #: [id number] CLICK HERE TO VIEW EXAM RADIOLOGY REPORT [...] bowel resection Family Cancers None LOCATION: The BREAST COMPOSITION: Scattered areas fibroglandular density. FINDINGS: [...] Addison MD on 02/08/2022 at 14:06 Normal [facility] CT CHEST WO CONon 08-11-2021 CT [...] by: JOAQUIN SOTO Date: 2021-08-11 17:29 Normal [facility] Vital Signs Date Time Vital Sign Value Performing Clinician Facility 04-12-2023 11:30-0500 Body height 165.1 cm Branden Fraga Other [facility] 04-12-2023 11:30-0500 Body mass index (BMI) [Ratio] 24.59 kg/m2 Branden Fraga Other [employer] Other 04-12-2023 11:30-0500 Body weight 67.04 kg Branden Ball Other [facility] 04-12-2023 11:30-0500 Diastolic blood pressure 75 mm[Hg] Branden Ball Other [facility] 04-12-2023 11:30-0500 Respiratory rate 12 /min Branden Ball Other [facility] Other 04-12-2023 11:30-0500 Systolic blood pressure 122 mm[Hg] Branden Ball Other [facility] 03-26-2023 11:30-0500 Body height 165.1 cm Branden Ball Other [facility] 03-26-2023 11:30-0500 Body mass index (BMI) [Ratio] 24.89 kg/m2 Branden Ball Other [facility] [employer] Other 03-26-2023 11:30-0500 Body weight 67.86 kg Branden Ball Other [facility] [employer] Other 03-26-2023 11:30-0500 Body weight 67.85 kg DO Branden Ball Work Phone: [facility] 03-26-2023 11:30-0500 Diastolic blood pressure 82 mm[Hg] Branden Ball Other [facility] 03-26-2023 11:30-0500 Respiratory rate 12 /min Branden Ball Other [facility] [employer] Other 03-26-2023 11:30-0500 Systolic blood pressure 192 mm[Hg] Branden Ball Other [facility] 02-08-2023 13:30-0500 Body height 165.1 cm Branden Ball Other [facility] 02-08-2023 13:30-0500 Body mass index (BMI) [Ratio] 24.29 kg/m2 Branden Ball Other [facility] Other 02-08-2023 13:30-0500 Body weight 66.23 kg Branden Ball Other [employer] Other 02-08-2023 13:30-0500 Body weight 66.22 kg DO Branden Ball Work Phone: [facility] 02-08-2023 13:30-0500 Diastolic blood pressure 79 mm[Hg] Branden Ball Other [facility] 02-08-2023 13:30-0500 Respiratory rate 12 /min Branden Ball Other [employer] Other 02-08-2023 13:30-0500 Systolic blood pressure 128 mm[Hg] Branden Ball Other [facility] 08-27-2022 11:15-0400 Body height 165.1 cm Branden Ball Other [facility] Other 08-27-2022 11:15-0400 Body mass index (BMI) [Ratio] 24.06 kg/m2 Branden Ball Other [facility] Other 08-27-2022 11:15-0400 Body weight 65.59 kg Branden Ball Other [facility] Other 08-27-2022 11:15-0400 Diastolic blood pressure 83 mm[Hg] Branden Ball Other [facility] Other 08-27-2022 11:15-0400 Respiratory rate 12 /min Branden Ball Other [facility] Other 08-27-2022 11:15-0400 Systolic blood pressure 152 mm[Hg] Branden Ball Other [facility] Other 07-09-2022 15:00-0400 Body height 165.1 cm Branden Ball Other [facility] Other 07-09-2022 15:00-0400 Body mass index (BMI) [Ratio] 23.23 kg/m2 Branden Ball Other [facility] Other 07-09-2022 15:00-0400 Body weight 63.32 kg Branden Ball Other [facility] Other 07-09-2022 15:00-0400 Diastolic blood pressure 72 mm[Hg] Branden Ball Other [employer] Other 07-09-2022 15:00-0400 Respiratory rate 12 /min Branden Ball Other [employer] Other 07-09-2022 15:00-0400 Systolic blood pressure 134 mm[Hg] Branden Ball Other [employer] Other 05-21-2022 15:45-0500 Body height 165.1 cm Branden Ball Other [employer] Other 05-21-2022 15:45-0500 Body mass index (BMI) [Ratio] 24.56 kg/m2 Branden Ball Other [employer] Other 05-21-2022 15:45-0500 Body weight 66.95 kg Branden Ball Other [employer] Other 05-21-2022 15:45-0500 Diastolic blood pressure 82 mm[Hg] Branden Ball Other [employer] Other 05-21-2022 15:45-0500 Respiratory rate 12 /min Branden Ball Other [employer] Other 05-21-2022 15:45-0500 Systolic blood pressure 136 mm[Hg] Branden Fraga Other [employer] Other 05-21-2022 09:45-0500 Diastolic blood pressure 92 mm[Hg] [facility] 05-21-2022 09:45-0500 Heart rate 72 /min [facility] 05-21-2022 09:45-0500 Respiratory rate 18 /min [facility] 05-21-2022 09:45-0500 SaO2% (BldA) [Mass fraction] 98 % [facility] 05-21-2022 09:45-0500 Systolic blood pressure 181 mm[Hg] [facility] Encounters Encounter Date Encounter Type Care Provider Facility Start: 05-06-2023 End: 05-06-2023 ambulatory Branden Ball Facility:[facility] Start: 05-06-2023 End: 05-06-2023 ambulatory DO Branden Ball Work Phone: [facility] Work Phone: Start: 05-06-2023 End: 05-06-2023 Patient encounter procedure DO Branden Ball Work Phone: [facility] Work Phone: Start: 04-24-2023 End: 04-24-2023 ambulatory ELENA HASSAN Not Available Start: 04-23-2023 End: 04-23-2023 ambulatory Branden Fraga Other [employer] Other Start: 04-23-2023 Telephone encounter Branden Ball [facility] Start: 04-22-2023 End: 04-22-2023 ambulatory Branden Ball Other [employer] Other Start: 04-22-2023 Telephone encounter Branden Ball [facility] Start: 04-17-2023 End: 04-17-2023 ambulatory Branden Ball Other [employer] Other Start: 04-17-2023 Telephone encounter Branden Ball [facility] Start: 04-12-2023 End: 04-12-2023 ambulatory Branden Ball Other [employer] Other Start: 04-12-2023 Office outpatient vi sit 15 minutes Branden Ball [facility] Start: 04-12-2023 Telephone encounter Branden Ball [facility] Start: 04-12-2023 End: 04-12-2023 Patient encounter procedure DO Branden Ball Work Phone: [facility]- Start: 04-08-2023 End: 04-08-2023 ambulatory Branden Ball Other [employer] Other Start: 04-08-2023 Telephone encounter Branden Ball [facility] Start: 04-01-2023 End: 04-01-2023 ambulatory Branden Ball Other [employer] Other Start: 04-01-2023 Telephone encounter Branden Ball [facility] Start: 03-27-2023 End: 03-27-2023 ambulatory Branden Ball Other [employer] Other Start: 03-27-2023 Telephone encounter Branden Fraga [facility] Start: 03-26-2023 End: 03-26-2023 ambulatory Branden Ball Other [employer] Other Start: 03-26-2023 Office outpatient vi sit 15 minutes Branden Ball [facility] Start: 03-26-2023 End: 03-26-2023 Patient encounter procedure DO Branden Ball Work Phone: [facility] Work Phone: Start: 03-14-2023 End: 03-14-2023 ambulatory Branden Ball Other [facility] Other Start: 03-14-2023 Telephone encounter Branden Ball [facility] Start: 02-19-2023 End: 02-19-2023 ambulatory Branden Ball Other [facility] Other Start: 02-19-2023 Telephone encounter Branden Fraga [facility] Start: 02-08-2023 End: 02-08-2023 ambulatory Branden Fraga Other [employer] Other Start: 02-08-2023 Patient encounter procedure Branden Fraga [facility] Start: 02-08-2023 End: 02-08-2023 Patient encounter procedure DO Branden Fraga Work Phone: [facility] Work Phone: Start: 09-20-2022 End: 09-20-2022 ambulatory Branden Fraga Other [employer] Other Start: 09-20-2022 Telephone encounter Branden Fraga [facility] Start: 08-27-2022 End: 08-27-2022 ambulatory Branden Fraga Other [employer] Other Start: 08-27-2022 Office outpatient vi sit 15 minutes Branden Ball [facility] Start: 08-24-2022 End: 08-24-2022 ambulatory Branden Fraga Other [employer] Other Start: 08-24-2022 Nursing evaluation o f patient and report Branden Fraga [facility] Start: 07-09-2022 End: 07-09-2022 ambulatory Branden Fraga Other [employer] Other Start: 07-09-2022 Office outpatient vi sit 15 minutes Branden Ball [facility] Start: 06-12-2022 End: 06-12-2022 ambulatory Branden Florian Other [facility] Other Start: 06-12-2022 Telephone encounter Branden Fraga [facility] Start: 06-11-2022 End: 06-11-2022 ambulatory Branden Ball Other [facility] Other Start: 06-11-2022 Telephone encounter Branden Florian [facility] Start: 05-22-2022 End: 05-22-2022 ambulatory Branden Fraga Other [employer] Other Start: 05-22-2022 Telephone encounter Branden Florian [facility] Start: 05-21-2022 Office outpatient vi sit 15 minutes Branden Fraga [facility] Start: 05-21-2022 End: 05-23-[address] BRANDEN FRAGA Facility:[facility] Start: 05-21-2022 End: 05-21-2022 ambulatory [facility] Triage, Treat and Transport Start: 05-21-2022 End: 05-21-2022 Emergency department patient visit [facility] Comment on above: Arrived Start: 05-04-2022 End: 05-04-2022 ambulatory Branden Fraga Other [employer] Other Start: 05-04-2022 Telephone encounter Branden Fraga [facility] Start: 05-03-2022 End: 05-03-2022 ambulatory Branden Fraga Other [employer] Other Start: 05-03-2022 Telephone encounter Branden Fraga [facility] Start: 02-08-2022 End: 02-09-[address] BRANDEN FRAGA Facility:[facility]1 Start: 08-11-2021 End: 08-12-[address] BRANDEN FRAGA Facility:[facility]1 Procedures Date Procedure Procedure Detail Performing Clinician Start: 05-06-2023 Positron emission tomography with computed tomography DO Branden Fraga Work Phone: Plan of Treatment Date Care Activity Detail Author Start: 12-23-2021 Influenza vaccination Influenza Vacc ine (#1) [facility] Start: 2005 Pneumococcal vaccination Pneum ococcal Vaccine(s) (65+ yrs) (1 - PCV) [facility] Start: 2005 Screening for osteoporosis Bone Dens itometry [facility] Start: 1990 Shingles (RZV) Vacci ne (1 of 2) Shingles (RZV) Vaccine (1 of 2) [facility] Start: 1958 Tetanus + diphtheria + acellular pertussis vaccine (product) Tdap [employer] Start: 04-24-1941 COVID-19 Vaccine (#1) COVID-19 Vacci ne (#1) [facility] Start: 1940 Basic metabolic 2000 panel - Serum or Plasma Basic Metabolic Panel [facility] Immunizations Immunization Date Immunization Notes Care Provider Allie nash 12-13-2021 influenza virus vaccine, split virus (incl. purified surface antigen) Branden Fraga Other [facility] [employer] Other 12-13-2021 influenza virus vaccine, unspecified formulation DO Branden [employer] Work Phone: [facility] 12-14-2020 influenza virus vaccine, split virus (incl. purified surface antigen) Branden Florian Other [facility] [employer] Other 12-14-2020 influenza virus vaccine, unspecified formulation DO [employer] Work Phone: [facility] 12-04-2019 influenza virus vaccine, split virus (incl. purified surface antigen) Branden Fraga Other [facility] [employer] Other 12-04-2019 influenza virus vaccine, unspecified formulation DO [employer] Work Phone: [facility] 12-16-2018 influenza virus vaccine, split virus (incl. purified surface antigen) Branden Florian Other [facility] [employer] Other 12-16-2018 influenza virus vaccine, unspecified formulation DO [employer] Work Phone: [facility] 01-15-2018 influenza virus vaccine, split virus (incl. purified surface antigen) Branden Florian Other [facility] [employer] Other 01-15-2018 influenza virus vaccine, unspecified formulation DO [employer] Work Phone: [facility] 01-12-2017 influenza virus vaccine, split virus (incl. purified surface antigen) Branden Fraga Other [facility] [employer] Other 01-12-2017 influenza virus vaccine, unspecified formulation DO Branden Fraga Work Phone: [facility] 12-27-2015 influenza virus vaccine, split virus (incl. purified surface antigen) Branden Fraga Other [employer] Other 12-27-2015 influenza virus vaccine, unspecified formulation DO Branden Fraga Work Phone: [facility] 01-28-2015 pneumococcal conjuga te vaccine, 13 valent Branden Fraga Other [facility] Payers Date Payer Category Payer Self-pay 2023 Unknown [id number] 2022 Unknown SP/UNINSURED PEN DING FINANCIAL PROGRAM EVALUATION [id number] 2022-Present [phone] [address] [place] [address] Other [id number] 2022 Unknown [id number] 1959 Medicare [id number] 1959 Unknown [id number] 1940 Unknown [id number] 1940 Unknown [id number] 1940 Unknown [id number] 1940 Unknown [id number] 1940 Unknown [id number] Medicare Medicare [id number] Unknown [id number] Social History Date Type Detail Facility Tobacco smoking status NHIS Tobacco smoking consumption unknown [facility] Start: 1940 Sex Assigned At Not on file [facility] Sex Assigned At Sex Assigned At Bir th [employer] Other Start: 1940 Sex Assigned At Female F [facility] Clinical Notes 05-04-2022 to 04-23-2023 Note Date & Type Note Facility 04-23-2023 Evaluation note Encounter Date Diagnosis Assessment Notes Mar, Primary hypertension (ICD-10 - I10) [employer] Other 01-29-2024 Evaluation note* Encounter Date Diagnosis Assessment Notes Treatment Notes Treatment Clinical Notes Mar, Lung nodule (ICD-10 - R91.1) [employer] Other 01-24-2024 Evaluation note* Encounter Date Diagnosis Assessment Notes Treatment Notes Treatment Clinical Notes Mar, Lung mass (ICD-10 - R91.8) [facility] Other 01-19-2024 Evaluation note* Encounter Date Diagnosis Assessment Notes Treatment Notes Treatment Clinical Notes Mar, Fall, initial encounter (ICD-10 - W19.XXXA) She denies CP, DASILVA, palpitations or lightheadedness Tripped over her shoe laces Fall precautions Mar, Right arm pain (ICD-10 - M79.601) Not sure how she landed. Ice, heat Mar, Contusion of right upper extremity, initial encounter (ICD-10 - S40.021A) [employer] Other 01-15-2024 Evaluation note* Encounter Date Diagnosis Assessment Notes Treatment Notes Treatment Clinical Notes Mar, Left lower quadrant abdominal pain (ICD-10 - R10.32) Mar, Diarrhea, unspecified type (ICD-10 - R19.7) [facility] [facility] Other 01-08-2024 Evaluation note* Encounter Date Diagnosis Assessment Notes Treatment Notes Treatment Clinical Notes Mar, Irritable bowel syndrome without diarrhea (ICD-10 - K58.9) [facility] [facility] Other 01-02-2024 Evaluation note* Encounter Date Diagnosis [...] would refer for colonoscopy to exclude colitis [employer] Other 12-21-2023 Evaluation note* Encounter Date Diagnosis Assessment Notes Treatment Notes Treatment Clinical Notes Feb, Gastroesophageal ref lux disease with esophagitis without hemorrhage (ICD-10 - K21.00) [facility] Other 11-28-2023 Evaluation note* Encounter Date Diagnosis Assessment Notes Treatment Notes Treatment Clinical Notes Jan, Dysuria (ICD-10 - R30.0) [facility] [facility] Other 11-17-2023 Evaluation note* Encounter Date Diagnosis [...] patient on monthly SBE and yearly mammograms. [employer] Other 06-29-2023 Evaluation note* Encounter Date Diagnosis Assessment Notes Treatment Notes Treatment Clinical Notes Aug, Primary hypertension (ICD-10 - I10) [facility] [facility] Other 06-05-2023 Evaluation note* Encounter Date Diagnosis [...] best 2/3 readings w/ goal < 135-85 [employer] Other 06-02-2023 Evaluation note* Encounter Date Diagnosis Assessment Notes Treatment Notes Treatment Clinical Notes Aug, Dysuria (ICD-10 - R30.0) [employer] Other 04-17-2023 Evaluation note* Encounter Date Diagnosis Assessment Notes Treatment Notes Treatment Clinical Notes Jun, Primary hypertension (ICD-10 - I10) This patient is instructed to consume a healthy, low-fat, low-salt diet. They are also encouraged to continue exercise to achieve/maintain a normal BMI. Jun, Nicotine dependence, cigarettes, in remission (ICD-10 - F17.211) Continue abstinence [employer] Other 03-21-2023 Evaluation note* Encounter Date Diagnosis Assessment Notes Treatment Notes Treatment Clinical Notes May, Primary hypertension (ICD-10 - I10) [facility] [facility] Other 03-20-2023 Evaluation note* Encounter Date Diagnosis Assessment Notes Treatment Notes Treatment Clinical Notes May, Primary hypertension (ICD-10 - I10) [employer] Other 02-28-2023 Evaluation note* Encounter Date Diagnosis Assessment Notes Treatment Notes Treatment Clinical Notes Apr, Primary hypertension (ICD-10 - I10) [employer] Other 02-27-2023 Evaluation note* Encounter Date Diagnosis [...] (ICD-10 - F17.211) Continue abstinence Apr, Other [employer] [place] [employer] Other 02-27-2023 History of Present illness Narrative* Sudheer Haro MD - 05/21/2022 10:00 AM EST Images from the original note were not included. EMERGENCY TRIAGE, TREAT AND TRANSPORT (ET3) DOCUMENTATION OF TELEHEALTH VISIT Date / Time: 05/21/2022944 Name: Genny Barboza : 1940 SSN: (Not on file) EMS Agency: [facility] [x] Verbal consent obtained [] [...] the typically is not available at a [place] primary care physician's office.Patient declined using ambulance go to the ER, and her daughter who was present on scene will driveher the 4 minutes will take to get to the [place] ER. I advised her to call 911 [...] by: Sudheer Haro MD documented in this [id number] Evaluation note* Encounter Date Diagnosis Assessment Notes Treatment Notes Treatment Clinical Notes Apr, Nausea (ICD-10 - R11.0) [employer] Other Evaluation note* Diagnosis Hypertensive urgency- Primary documented [facility] [employer] Other Evaluation noteNo assessment information available [facility] Work Phone: History general Narrative - Reported* Type Description [...] History MUSCLE MASS Surgical History COLONOSCOPY 1996,2000,2003, 2006,2012 Surgical History EXPLORATORY LAP, LYSIS OF ADHES IONS Surgical History RECTOVAGINAL FISTULA REPIAR Surgical History HAYLEY Surgical History COLON RESECTION Surgical History CYSTOSCOPY Hospitalization History SEE SURGICAL HX [employer] Other Summary Purpose Family History No Family History Records Found Relationship Condition Age at Onset Recorded Date/T megan father Unknown family member Unknown Not Specified Unknown Advance Directives No Advanced Directives Records FoundNo Advanced Directives Records FoundNo Advanced Directives Records FoundNo Advanced Directives Records Found Chief Complaint and Reason for Visit Chief Complaint Wellness Ibs Shoulder Pain R91.1 Additional Source Comments Reason for Visit (unrecogniz ed section and content) Reason Comments Headache Hypertension INFORMATION SOURCE (unrecogn ized section and content) DATE CREATED AUTHOR 05/23/2022 [facility] DATE CREATED AUTHOR AUTHOR'S ORGANIZ ATION 05/25/2022 [facility] DATE CREATED AUTHOR AUTHOR'S ORGANIZ ATION 04/25/2023 [facility] EPIC DATE CREATED AUTHOR AUTHOR'S ORGANIZ ATION 05/14/2023 [facility] Care Teams (unrecognized sec tion and content) Team Status: Active Member Role Status Dates Branden Fraga DO Primary Care Provider Active Team Status: Inactive Member Role Status Dates Branden Fraga DO Attending Provider Active Sta rt: February 08, 2023 End: February 08, 2023 Team Status: Inactive Member Role Status Dates Branden Fraga DO Attending Provider Active Sta rt: March 26, 2023 End: March 26, 2023 Team Status: Inactive Member Role Status Dates Branden Fraga , Attending Provider Active Sta rt: April 12, 2023 End: April 12, 2023 Team Status: Inactive Member Role Status Dates Branden Fraga DO Primary Care Provide r, Attending Provider Active Start: May 06, 2023 End: May 06, 2023 Goals (unrecognized section and content) Goals may be documented in a n alternate section FOR RECORDS PERTAINING TO PATIENTS WHO ARE [...] BE BASED ON THE PRIMARY CLINICAL RECORDS. [employer] [facility]. provides no warranty or guarantee of the accuracy or completeness of information in this document.
== END 2023-05-28 10:19 | disposition home or self-care (01) ==
LOC: MRI 10:18
PROVIDERS: PCP Internal Medicine; Visit Provider Internal Medicine
DX: M25.511 Pain in right shoulder (principal); M19.011 Primary osteoarthritis, right shoulder; M75.111 Incomplete rotator cuff tear or rupture of right shoulder, not specified as traumatic
CPT/HCPCS: 73221

== ENCOUNTER 2023-07-04 13:57 | Outpatient (RCR) | payer MEDICARE, SELFPAY | END 2023-07-19 15:28 | disposition home or self-care (01) | LOC: PT 13:57 | PROVIDERS: PCP Internal Medicine; Visit Provider Internal Medicine | DX: M25.511 Pain in right shoulder (principal); M75.101 Unspecified rotator cuff tear or rupture of right shoulder, not specified as traumatic | CPT/HCPCS: 97110; 97162 ==

== ENCOUNTER 2023-07-30 12:59 | Outpatient (OUT) | payer MEDICARE, SELFPAY ==
--- NOTE | 2023-07-30 13:01 | CT_ITS ---
[address] [address] Patient Name: EVER BREWER MRN: [id number] date: 1940 Sex: F Assigned Patient Location: CT Current Patient Location: CT Accession/Order Number: [id number] Exam Date: 07/30/2023 13:02 Report Date: 07/30/2023 13:54 At the request of: ERNESTO FRAGA Procedure: CT chest wo con EXAMINATION: CT chest wo con HISTORY: Nonspecific Abnormal Finding Of Lung Field ; follow-up lung nodules COMPARISON: CT chest 04/22/2023 TECHNIQUE: Multi-planar CT images were obtained without and/or with IV contrast as indicated by examination type. Axial, Coronal, and Sagittal images. Dose reduction techniques were achieved by using automated exposure control and/or adjustment of mA and/or kV according to patient size and/or use of iterative reconstruction technique. FINDINGS: LUNGS: 1.9 cm mass versus infiltrate within right posterior costophrenic angle. Very faint 9 mm wispy opacity within left lung apex at site of previously seen larger, dense opacity. No new findings. Mild atelectasis within lung bases. PLEURA: No mass, effusion, or pneumothorax. VASCULATURE: No abnormality. GURPREET: No mass or adenopathy. MEDIASTINUM: No mass or adenopathy. CARDIAC: No enlargement, pericardial thickening, or significant calcification. AORTA: No aneurysm or dissection. CHEST WALL: No mass or axillary adenopathy. BONES: No bone lesion or fracture. LIMITED ABDOMEN: No suspicious findings Limited images of the upper abdomen. OTHER: Negative. CT/CT chest wo con IMPRESSION: 1. Geographic shaped opacity 1.9 cm in maximum dimension within the right posterior costophrenic angle; grossly stable since first seen on 04/17/2023 allowing for differences in inspiration. While stable over this short period of time, neoplasm cannot be excluded. PET imaging or follow-up CT imaging in 3 months is recommended to document continued stability. 2. Near complete clearing of large dense opacity within left lung apex. Only a small, 9 mm very faint wispy opacity remains. 3. No new nodules/infiltrates. Electronically authenticated by: JOAQUIN SOTO Date: 07/30/2023 13:54
== END 2023-07-30 13:00 | disposition home or self-care (01) ==
LOC: CT 12:59
PROVIDERS: PCP Internal Medicine; Visit Provider Internal Medicine
DX: R91.8 Other nonspecific abnormal finding of lung field (principal)
CPT/HCPCS: 71250

== ENCOUNTER 2024-02-25 13:00 | Outpatient (OUT) | payer MEDICARE, SELFPAY ==
--- NOTE | 2024-02-25 13:02 | CT_ITS ---
[address] [address] Patient Name: EVER BREWER MRN: [id number] date: 1940 Sex: F Assigned Patient Location: CT Current Patient Location: Accession/Order Number: [id number] Exam Date: 02/25/2024 13:05 Report Date: 02/27/2024 04:45 At the request of: ERNESTO FRAGA Procedure: CT chest wo con EXAMINATION: CT chest wo con HISTORY: Lung Nodule, R91.1 follow-up COMPARISON: CT chest 07/30/2023 TECHNIQUE: Axial, Coronal, and Sagittal images were created without the administration of IV contrast material. Dose reduction techniques were achieved by using automated exposure control and/or adjustment of mA and/or kV according to patient size and/or use of iterative reconstruction technique. FINDINGS: LUNGS: Spiculated density within right posterior costophrenic phrenic angle, 2.6 x 1.2 x 1.4 cm. Fat filled hernia protruding through posterior diaphragm into the right costophrenic angle. Near complete clearing of previously seen faint opacity within left lung apex. PLEURA: No mass, effusion, or pneumothorax. VASCULATURE: No abnormality. GURPREET: No mass or pathologic adenopathy. MEDIASTINUM: No mass or pathologic adenopathy. CARDIAC: No enlargement, pericardial thickening, or pericardial effusion. Coronary Artery calcifications: AORTA: No aneurysm or dissection. CHEST WALL: No mass or axillary adenopathy BONES: No bone lesion or fracture. LIMITED ABDOMEN: No suspicious findings. Limited images of the upper abdomen. OTHER: Negative. CT/CT chest wo con IMPRESSION: 1. Interval increase in size of a spiculated mass versus infiltrates within right posterior costophrenic angle, now 2.6 cm. A mass is favored. Consider PET imaging. 2. No lymphadenopathy or new nodules are. Electronically authenticated by: JOAQUIN SOTO Date: 02/27/2024 04:45
== END 2024-02-25 13:01 | disposition home or self-care (01) ==
LOC: CT 13:01
PROVIDERS: PCP Internal Medicine; Visit Provider Internal Medicine
DX: R91.1 Solitary pulmonary nodule (principal); R91.8 Other nonspecific abnormal finding of lung field
CPT/HCPCS: 71250

== ENCOUNTER 2024-03-12 07:14 | Outpatient (RCR) | payer MEDICARE, SELFPAY ==
--- NOTE | 2023-11-20 14:45 | CR1_ITS ---
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
--- NOTE | 2023-11-22 07:30 | CR1_ITS ---
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
--- NOTE | 2023-12-18 07:10 | CR1_ITS ---
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
--- NOTE | 2024-01-16 08:13 | CR1_ITS ---
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
--- NOTE | 2024-02-18 11:25 | CR1_ITS ---
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
--- NOTE | 2024-03-17 08:13 | CR1_ITS ---
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
== END 2024-03-24 12:07 | disposition home or self-care (01) ==
LOC: CR 07:14
PROVIDERS: PCP Internal Medicine; Visit Provider Internal Medicine Cardiovascular Disease
DX: I25.10 Atherosclerotic heart disease of native coronary artery without angina pectoris (principal); Z98.61 Coronary angioplasty status; I25.2 Old myocardial infarction
CPT/HCPCS: 93798

== ENCOUNTER 2024-03-12 14:31 | Outpatient (OUT) | payer MEDICARE, SELFPAY ==
--- OUTSIDE RECORDS SUMMARY | 2024-03-12 14:54 | XMS_ITS | CCD ---
Author Organization [facility] Care Team Providers Care Roofer Name Role Phone Unavailable Primary Care Provider Unavailjuan ramon DU, DR OTERO Primary Care Unavailable MAUREEN ., ALBERTO Admitting Unavailable MAUREEN ., ALBERTO Attending Unavailable MAUREEN ., ALBERTO Consulting Unavailable PHILLY, DR OTERO Admitting Unavailable PHILLY, DR OTERO Attending Unavailable PHILLY, DR OTERO Consulting Unavailable PHILLY, DR OTERO Primary Care Unavailable CHARLES, DR JOAQUIN Canales Consulting Unavailable PHILLY, DR OTERO Admitting Unavailable PHILLY, DR OTERO Attending Unavailable PHILLY, DR OTERO Consulting Unavailable PHILLY, DR OTERO Primary Care Unavailable RACIEL, DR KALPANA Phelps Consulting Unavailable PROVIDER, UNKNOWN Attending Unavailable PROVIDER, UNKNOWN Admitting Unavailable Branden Du Unavailable EELNA HASSAN Attending Unavailable DO Branden Du Primary Care Provider [phone] DO Branden Du Attending Provider [phone] DO Branden Du Primary Care Provider Philly, DO Otero Attending Provider [phone] FLAKITA Álvarez Emergency Provider [phone] DO Branden Du Primary Care Provider [phone] DO Reji Frausto Admit Provider DO Reji Frausto Attending Provider [phone] MD Sobia Okeefe Other Provider [phone] DO Rona Andres Emergency Provider [phone] INDERJIT FRAUSTO Attending Unavailable BRANDEN DU Primary Care Unavailable INDERJIT FRAUSTO Attending Unavailable BRANDEN DU Primary Care Unavailable Branden Du Primary Care Unavailable Rona Andres Attending Unavailable Rona Andres Admitting Unavailable Branden Du Admitting Unavailable Philly, rBanden Attending Unavailable Philly, Branden Primary Care Unavailable Sobia [place]kee[place] Consulting Unavaila Reji Woodward Attending Unavailable Reji Frausto Admitting Unavailable Branden Du Primary Care Unavailable Sylvester Monk Attending Unavailable Sylvester Monk Admitting Unavailable Branden Du Primary Care Unavailable Maura Andres RN Unavailable Unavailable Branden Du DO Primary Care Provider Allergies Allergy Classification Reported Allergen(s) Allergy Type Date of Onset Reaction(s) Facility (2 sources) Penicillins; Translations: [PENICILLINS] Drug allergy (disorder) 4 [facility] Repository (12 sources) Substance with penicillin structure and antibacterial mechanism of action (substance) Drug allergy 4 Unknown [facility] Other (1 source) Penicillins Drug allergy (disorder) 4 [facility] Repository (1 source) Penicillins Propensity to adverse reactions 4 Unknown [facility] Medications Current Medications Medication Drug Class(es) Dates Sig (Normalized) Sig (Original) aspirin 81 mg delayed release oral tablet (6 sources) Platelet Aggregation Inhibitor, Nonsteroidal Anti-inflammatory Drug Start: 10-29-2023 take 1 tablet by mouth once daily aspirin 81 mg EC tablet Take 1 tablet (81 mg) by mouth once daily. 10/29/2023 Active atorvastatin 80 mg oral tablet (6 sources) HMG-CoA Reductase Inhibitor Start: 10-29-2023 take 1 tablet by mouth once daily atorvastatin (Lipitor) 80 mg tablet Take 1 tablet (80 mg) by mouth once daily. 10/29/2023 Active dicyclomine hydrochloride 10 mg oral capsule (1 source) Anticholinergic Start: 12-12-2023 take 10 mg by mouth twice daily Dicyclomine Active 10 MG PO Twice daily 60 30 December 12, 2023 12:00am losartan potassium 50 mg oral tablet (20 sources) Angiotensin 2 Receptor Niharika Start: 12-12-2023 take 100 mg by mouth twice daily Losartan Active 100 MG PO Twice daily December 12, 2023 1:23pm Start: 12-01-2023 End: 12-12-2023 take 50 mg by mouth twice daily Losartan Discontinued 50 MG PO Twice daily 60 30 December 01, 2023 7:48pm December 12, 2023 1:32pm Start: 11-12-2023 End: 12-01-2023 take 25 mg by mouth twice daily Losartan Discontinued 25 MG PO Twice daily 60 30 November 12, 2023 12:19pm December 01, 2023 7:48pm Start: 10-29-2023 End: 11-06-2024 take 1 tablet by mouth once daily losartan (Cozaar) 25 mg tablet Indications: Hyperlipidemia, unspecified hyperlipidemia type Take 1 tablet (25 mg) by mouth once daily. 90 tablet 3 11/07/2023 11/06/2024 Active Start: 05-17-2023 End: 10-29-2023 take 50 mg by mouth once daily Losartan Discontinued 5 0 MG PO Daily May 17, 2023 1:00am October 29, 2023 3:49pm Start: 05-17-2023 take 50 mg by mouth twice daily Losartan Active 50 MG PO Twice daily May 17, 2023 1:00am Start: 05-22-2022 take 1 tablet by perez th twice daily Losartan Potassium 50 MG 1 tablet Orally twice daily for 30 days Apr, Active Start: 05-22-2022 take 1 tablet by perez th every twenty-four hours Losartan Potassium 50 MG 1 tablet Orally qd Apr, Active Start: 05-22-2022 take 1 tablet by perez th twice daily Losartan Potassium 25 MG 1 tablet Orally twice daily Apr, Active Start: 05-22-2022 take 1 tablet by perez th every twenty-four hours Losartan Potassium 25 MG 1 tablet Orally Once a day for 30 days Apr, Active metoprolol tartrate 50 mg oral tablet (9 sources) beta-Adrenergic Niharika Start: 11-29-2023 take 50 mg by mouth twice daily Metoprolol Tartrate Active 50 MG PO Twice daily 180 90 November 29, 2023 3:23pm Start: 10-29-2023 End: 11-06-2024 take 1 tablet by mouth twice daily metoprolol tartrate (Lopressor) 25 mg tablet Indications: Coronary artery disease, unspecified vessel or lesion type, unspecified whether angina present, unspecified whether [place] or transplanted heart , History of ST elevation myocardial infarction (STEMI) Take 1 tablet (25 mg) by mouth 2 times a day. 180 tablet 3 11/07/2023 11/06/2024 Active multivit with minerals/lutein (MULTIVITAMIN 50 PLUS ORAL) (1 source) Start: 06-20-2023 take 1 tablet by mouth once daily multivit with minerals/lutein (MULTIVITAMIN 50 PLUS ORAL) Take 1 tablet by mouth once daily. 06/20/2023 Active Multivitamin preparation (7 sources) Start: 06-20-2023 take 1 tablet by mouth once daily Multivitamin Active 1 TAB PO Daily June 20, 2023 12:00am nitroglycerin 0.4 mg sublingual tablet (6 sources) Nitrate Vasodilator Start: 10-29-2023 nitroglycerin (Nitrostat) 0.[address] 1 tablet (0.4 mg) under the tongue every 5 minutes if needed for chest pain. 10/29/2023 Active omeprazole 40 mg delayed release oral capsule (20 sources) Proton Pump Inhibitor Start: 10-28-2023 take 40 mg by mouth once daily Omeprazole Active 40 MG PO Daily October 28, 2023 12:00am Start: 10-07-2023 End: 10-28-2023 take 1 capsule by mouth once daily before mealtime Omeprazole Discontinued 0 .ROUTE .COMPLEX October 07, 2023 12:27pm October 28, 2023 5:26am TAKE ONE CAPSULE BY MOUTH ONCE DAILY IN THE MORNING, 30 MINUTES BEFORE MEAL Start: 02-08-2023 End: 10-07-2023 take 40 mg by mouth once daily Omeprazole Discontinued 40 MG PO Daily June 20, 2023 12:00am October 07, 2023 12:27pm sulfamethoxazole 800 mg / trimethoprim 160 mg oral tablet (11 sources) Dihydrofolate Reductase Inhibitor Antibacterial, Sulfonamide Antimicrobial Start: 02-19-2023 take 1 tablet by mouth every twelve hours Sulfamethoxazole-Trimethoprim 800-160 MG 1 tablet Orally Twice a day for 5 days Jan, Active ticagrelor 90 mg oral tablet (7 sources) Start: 10-29-2023 End: 11-06-2024 take 1 tablet by mouth twice daily ticagrelor (Brilinta) 90 mg tablet Indications: Coronary artery disease, unspecified vessel or lesion type, unspecified whether angina present, unspecified whether [place] or transplanted heart , History of PTCA Take 1 tablet (90 mg) by mouth 2 times a day. 180 tablet 3 11/07/2023 11/06/2024 Active Completed/Discontinued Medications Medication Drug Class(es) Dates Sig (Normalized) Sig (Original) amLODIPine 5 mg oral tablet (16 sources) Dihydropyridine Calcium Channel Niharika Start: 11-12-2023 End: 12-12-2023 take 5 mg by mouth once daily Amlodipine Discontinued 5 MG PO Daily November 12, 2023 12:00am December 12, 2023 1:30pm Start: 10-27-2023 End: 10-29-2023 take 5 mg by mouth once daily Amlodipine Discontinued 5 MG PO Daily October 27, 2023 12:00am October 29, 2023 3:49pm Start: 05-17-2023 End: 06-20-2023 take 5 mg by mouth once daily Amlodipine Discontinued 5 MG PO Daily May 17, 2023 1:00am June 20, 2023 2:35pm Start: 04-23-2023 take 1 tablet by perez th every twenty-four hours amLODIPine Besylate 5 MG 1 tablet Orally Once a day for 30 days Mar, Active famotidine 40 mg oral tablet (18 sources) Histamine-2 Receptor Antagonist Start: 05-17-2023 End: 06-20-2023 take 40 mg by mouth once daily at bedtime Famotidine Discontinued 40 MG PO Daily at bedtime May 17, 2023 1:00am June 20, 2023 2:35pm Start: 03-14-2023 take 1 tablet by perez th every twenty-four hours Famotidine 40 MG 1 tablet at bedtime Orally Once a day for 30 days Feb, Active hyoscyamine sulfate 0.125 mg sublingual tablet (17 sources) Start: 11-12-2023 End: 12-12-2023 Hyoscyamine Sulfate Disconti nued 0.125 MG SUBLINGUAL 2-4 TIMES PER DAY November 12, 2023 12:00am December 12, 2023 1:31pm Start: 05-17-2023 End: 07-24-2023 take 1 tablet under the tongue at bedtime Hyoscyamine Sulfate (Levsin/Sl) 0.125 mg tablet, sublingual Discontinued 0.125 MG SUBLINGUAL .COMPLEX May 17, 2023 1:00am July 24, 2023 1:19pm 0.125 mg sublingually before meals and at bedtime Start: 04-01-2023 Levsin/SL 0.12 5 MG 1 tablet under the tongue and allow to dissolve as needed Sublingual before meals and HS for 10 days Mar, Active meloxicam 15 mg oral tablet (20 sources) Nonsteroidal Anti-inflammatory Drug Start: 05-17-2023 End: 06-20-2023 take 15 mg by mouth once daily Meloxicam Discontinued 15 MG PO Daily May 17, 2023 1:00am June 20, 2023 2:35pm Start: 08-27-2022 take 1 tablet by perez every twenty-four hours Meloxicam 15 MG 1 tablet Orally Once a day Aug, Active ondansetron 4 mg disintegrating oral tablet (20 sources) Serotonin-3 Receptor Antagonist Start: 05-17-2023 End: 06-20-2023 take 4 mg by mouth every six hours Ondansetron Discontinued 4 MG PO Every 6 hours May 17, 2023 1:00am June 20, 2023 2:35pm Start: 05-04-2022 take 1 tablet by perez every six hours as needed for nausea Ondansetron 4 MG 1Tablet Orally Every 6 hours PRN nausea for 5 days Apr, Active Sod Picosulf-Mag Ox-Citric Ac (13 sources) Start: 07-05-2023 End: 10-27-2023 take 1 dose by mouth once daily Sod Picosulf-Mag Ox-Citric Ac (Clenpiq) 10 mg-3.5 gram- 12 gram/175 mL solution Discontinued 175 ML PO Daily 350 0 July 05, 2023 8:42am October 27, 2023 9:40pm take first dose at 3PM evening before colonoscopy; 2nd dose at 9pm the night before colonoscopy Start: 07-05-2023 take 1 dose by mouth once daily Sod Picosulf-Mag Ox-Citric Ac (Clenpiq) 10 mg-3.5 gram- 12 gram/175 mL solution Active 175 ML PO Daily 350 0 July 05, 2023 8:42am take first dose at 3PM evening before colonoscopy; 2nd dose at 9pm the night before colonoscopy Start: 06-20-2023 End: 07-05-2023 take 1 dose by mouth once daily Sod Picosulf-Mag Ox-Citric Ac (Clenpiq) 10 mg-3.5 gram- 12 gram/175 mL solution Discontinued 175 ML PO Daily 350 0 June 20, 2023 12:00am July 05, 2023 8:43am take first dose at 3PM evening before colonoscopy; 2nd dose at 9pm the night before colonoscopy Start: 06-20-2023 take 1 dose by mouth once daily Sod Picosulf-Mag Ox-Citric Ac (Clenpiq) 10 mg-3.5 gram- 12 gram/175 mL solution Active 175 ML PO Daily 350 0 June 20, 2023 12:00am take first dose at 3PM evening before colonoscopy; 2nd dose at 9pm the night before colonoscopy Problems Active Problems Problem Classification Problem Date Documented Da te Episodic/Chronic Abdominal pain (20 sources) Left lower quadrant pain; Translations: [Left lower quadrant pain] Episodic Acute myocardial infarction (10 sources) Myocardial infarction; Translations: [ST elevation (STEMI) myocardial infarction involving other coronary artery of inferior wall] Onset: 10-27-2023 10-27-2023 Chronic Cancer of colon (9 sources) Personal history of other malignant neoplasm of large intestine; Translations: [Personal history of malignant neoplasm of large intestine] 05-21-2023 Episodic Complications of surgical procedures or medical care (5 sources) Drug therapy finding; Translations: [Unspecified adverse effect of drug or medicament, initial encounter] 11-05-2023 Episodic Coronary atherosclerosis and other heart disease (17 sources) Coronary arteriosclerosis; Translations: [Atherosclerotic heart disease of [place] coronary artery without angina pectoris] Onset: 11-07-2023 Resolved: 11-07-2023 11-10-2023 Chronic Coronary atherosclerosis and other heart disease (2 sources) Coronary angioplasty status; Translations: [Coronary angioplasty status] Onset: 11-07-2023 Episodic Disorders of lipid metabolism (12 sources) Hypercholesterolemi a; Translations: [Pure hypercholesterolemi a, unspecified] Onset: 11-07-2023 11-10-2023 Chronic E Codes: Fall (1 source) Unspecified fall, initial encounter Episodic Esophageal disorders (20 sources) Gastro-esophageal reflux disease with esophagitis; Translations: [Gastroesophageal reflux disease with esophagitis without hemorrhage] 05-17-2023 Chronic Essential hypertension (20 sources) Essential (primary) hypertension; Translations: [Essential hypertension] Onset: 05-21-2022 Chronic Genitourinary symptoms and ill-defined conditions (20 sources) Dysuria; Translations: [Dysuria] Episodic Hypertension with complications and secondary hypertension (1 source) Hypertensive urgency ; Translations: [Hypertensive urgency] Chronic Malaise and fatigue (3 sources) Other fatigue; Translations: [Other fatigue] Onset: 12-20-2023 Episodic Menopausal disorders (20 sources) Decreased estrogen level; 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 Mycoses (20 sources) Tinea corporis; Translations: [Tinea corporis] Episodic Nausea and vomiting (1 source) Nausea Episodic Other aftercare (1 source) Other nursing home (current) drug therapy; Translations: [OTH [employer] CURRENT DRUG THERAPY] Onset: 05-22-2022 Episodic Other [...] in right arm Episodic Other gastrointestinal disorders (15 sources) Irritable bowel syndrome; Translations: [Irritable bowel syndrome without diarrhea] 05-17-2023 Chronic Other gastrointestinal disorders (6 sources) Irritable bowel syndrome without diarrhea; Translations: [Irritable bowel syndrome] Chronic Other gastrointestinal disorders (20 sources) Personal history of other diseases of the digestive system; Translations: [History of small bowel obstruction] Episodic Other gastrointestinal disorders (3 sources) Diarrhea, unspecified; Translations: [Diarrhea] Episodic Other gastrointestinal disorders (8 sources) Altered bowel function; Translations: [Change in bowel habit] 05-21-2023 Episodic Other gastrointestinal disorders (6 sources) Change in stool caliber; Translations: [Other fecal abnormalities] 06-20-2023 Episodic Other gastrointestinal disorders (1 source) Diarrhea; Translations: [Diarrhea, unspecified] 12-12-2023 Episodic Other gastrointestinal disorders (1 source) Urgent desire for stool; Translations: [Fecal urgency] 12-12-2023 Episodic Other gastrointestinal disorders (1 source) Fecal urgency; Translations: [Fecal urgency] 12-12-2023 Episodic Other lower respiratory disease (20 sources) Nodule of lung; Translations: [Solitary pulmonary nodule] 07-30-2023 Episodic Other lower respiratory disease (1 source) Other nonspecific abnormal finding of lung field Episodic Other lower respiratory disease (6 sources) Lung mass; Translations: [Other nonspecific abnormal finding of lung field] 07-24-2023 Episodic Other lower respiratory disease (7 sources) Dyspnea; Translations: [Shortness of breath] Onset: 11-07-2023 11-05-2023 Episodic Other non-traumatic joint disorders (8 sources) Rotator cuff arthropathy of right shoulder; Translations: [Other specific arthropathies, not elsewhere classified, right shoulder] 05-21-2023 Chronic Other non-traumatic joint disorders (3 sources) Other specific arthropathies, not elsewhere classified, right shoulder; Translations: [Other specified arthropathy, shoulder region] 05-21-2023 Chronic Other non-traumatic joint disorders (3 sources) Pain in right shoulder; Translations: [Pain in joint, shoulder region] 05-21-2023 Episodic Other nutritional; endocrine; and metabolic disorders (2 sources) Body mass index (BMI) 27.0-27.9, adult; Translations: [Body mass index (BMI) 27.0-27.9, adult] Onset: 12-20-2023 Episodic Other nutritional; endocrine; and metabolic disorders (2 sources) Body mass index (BMI) 26.0-26.9, adult; Translations: [Body mass index (BMI) 26.0-26.9, adult] Onset: 11-07-2023 Episodic Other screening for suspected conditions (not [...] of other specified parts of digestive tract] 06-20-2023 Episodic Residual codes; unclassified (1 source) Acquired absence of other specified parts of digestive tract Episodic Screening and history of mental health and substance abuse codes (5 sources) Personal history of nicotine dependence; Translations: [Ex-smoker] Onset: 05-22-2022 Episodic Spondylosis; intervertebral disc disorders; other back problems (20 sources) Lumbar spondylosis; Translations: [Spondylosis without myelopathy or radiculopathy, lumbar region] Chronic Substance-related disorders (20 sources) Tobacco user; Translations: [Nicotine dependence, cigarettes, 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 Superficial injury; contusion (1 source) Contusion of right upper arm, initial encounter Episodic Syncope (2 sources) Syncope and collapse; Translations: [Syncope and collapse] Onset: 12-20-2023 Episodic Past or Other Problems Problem Classification Problem Date Documented Da te Episodic/Chronic Esophageal disorders (14 sources) Esophageal disorders; Translations: [Gastroesophageal reflux disease with esophagitis without hemorrhage] Other gastrointestinal disorders (4 sources) Change in bowel habit; Translations: [Other symptoms involving digestive system] Onset: 07-25-2023 05-21-2023 Episodic Other lower respiratory disease (12 sources) Solitary pulmonary nodule; Translations: [Solitary pulmonary nodule] Onset: 08-11-2021 Episodic Other lower respiratory disease (3 sources) Shortness of breath; Translations: [Shortness of breath] Onset: 11-05-2023 11-12-2023 Episodic Other nutritional; endocrine; and metabolic disorders (2 sources) Overweight in adulthood with body mass index of 25 or more but less than 30; Translations: [Body mass index (BMI) 26.0-26.9, adult] Onset: 11-07-2023 11-07-2023 Episodic Residual codes; unclassified (1 source) Family history of disorder; Translations: [Family history of ischemic heart disease and other diseases of the circulatory system] Onset: 11-07-2023 Resolved: 11-07-2023 11-07-2023 Episodic Unclassified (20 sources) Acute bilateral low back pain without sciatica; Translations: [Acute bilateral low back pain without sciatica] Unclassified (1 source) Acute right-sided low back pain without sciatica M54.50 Unclassified (1 source) Onset: 11-07-2023 11-07-2023 Viral infection (20 sources) Disease caused by 2019-nCoV; Translations: [COVID-19] Results Test Name Value Interpretation Reference Range Facility Activated partial thrombopla stin time (aPTT) in platelet poor plasma by coagulation aOrdered By: PROVIDER TEMP on 11-05-2023 aPTT Coag (PPP) [Time] 30.2 s 25.1-36.5 [facility] Comment on above: A hematocrit value g reater than 55% may lead to inaccurate results in coagulation testing. Patients having hematocrit values >55% require a special collection tube for coagulation studies. Please contact the laboratory at [phone] for redraw instructions. Alanine aminotransferase [En zymatic activity/volume] in Serum or PlasmaOrdered By: PROVIDER TEMP on 11-05-2023 ALT [Catalytic activity/Vol] 27 U/L Normal 7-52 [facility] Comment on above: Performed By: #### P TT, HS TROP, CBC, PT, BNP, CMP, CK #### [facility] [address] [place] [address] [place] Albumin [Mass/volume] in Ser um or Plasma by Bromocresol green (BCG) dye binding methoOrdered By: PROVIDER TEMP on 11-05-2023 Albumin BCG dye [Mass/Vol] 4.1 g/dL 3.5-5.7 [facility] Alkaline phosphatase [Enzyma tic activity/volume] in Serum or PlasmaOrdered By: PROVIDER TEMP on 11-05-2023 ALP [Catalytic activity/Vol] 99 U/L Normal 34-104 [facility] Comment on above: Performed By: #### P TT, HS TROP, CBC, PT, BNP, CMP, CK #### [facility] [address] [place] [address] [place] Aspartate aminotransferase [ Enzymatic activity/volume] in Serum or PlasmaOrdered By: PROVIDER TEMP on 11-05-2023 AST [Catalytic activity/Vol] 19 U/L Normal 13-39 [facility] Comment on above: Performed By: #### P TT, HS TROP, CBC, PT, BNP, CMP, CK #### [facility] [address] [place] [address] [place] Automated basophil %Ordered By: PROVIDER TEMP on 11-05-2023 Basophils/100 WBC (Bld) 0.8 % Normal . [facility] Comment on above: Performed By: #### P TT, HS TROP, CBC, PT, BNP, CMP, CK #### [facility] [address] [place] [address] [place] Automated basophil countOrde red By: PROVIDER TEMP on 11-05-2023 Basophils (Bld) [#/Vol] 0.1 10*3/uL Normal 0.0-0.2 [facility] Comment on above: Result Comment: PERF ORMED BY: [place] [address] PATHOLOGIST ACCESSIBILITY LIFT TECHNICIAN KAYLIN ARDON M.D. Performed By: #### P TT, HS TROP, CBC, PT, BNP, CMP, CK #### [address] Automated blood monocyte cou ntOrdered By: PROVIDER TEMP on 11-05-2023 Monocytes (Bld) [#/Vol] 0.6 10*3/uL Normal 0.0-0.8 [facility] Comment on above: Performed By: #### P TT, HS TROP, CBC, PT, BNP, CMP, CK #### [address] Automated eosinophil %Ordere d By: PROVIDER TEMP on 11-05-2023 Eosinophils/100 WBC (Bld) 0.8 % Normal . [facility] Comment on above: Performed By: #### P TT, HS TROP, CBC, PT, BNP, CMP, CK #### [facility] [address] [place] [address] Automated eosinophil countOr dered By: PROVIDER TEMP on 11-05-2023 Eosinophils (Bld) [#/Vol] 0.1 10*3/uL Normal 0.0-0.45 [facility] Comment on above: Performed By: #### P TT, HS TROP, CBC, PT, BNP, CMP, CK #### [address] Automated monocyte %Ordered By: PROVIDER TEMP on 11-05-2023 Monocytes/100 WBC (Bld) 9.6 % Normal . [facility] Comment on above: Performed By: #### P TT, HS TROP, CBC, PT, BNP, CMP, CK #### [address] Automated neutrophil %Ordere d By: PROVIDER TEMP on 11-05-2023 Neutrophils/100 WBC (Bld) 73.8 % Normal . [facility] Comment on above: Performed By: #### P TT, HS TROP, CBC, PT, BNP, CMP, CK #### [facility] [address] [place] [address] BNP ser/plasOrdered By: PROV IDER TEMP on 11-05-2023 Natriuretic peptide B (Bld) [Mass/Vol] 293.0 pg/mL High 5-100 [facility] Comment on above: Result Comment: PERF ORMED BY: [place] [address] PATHOLOGIST ACCESSIBILITY LIFT TECHNICIAN KAYLIN ARDON M.D. Performed By: #### P TT, HS TROP, CBC, PT, BNP, CMP, CK #### [facility] [address] [place] [address] Bilirubin.total [Mass/volume ] in Serum or PlasmaOrdered By: PROVIDER TEMP on 11-05-2023 Bilirubin [Mass/Vol] 0.5 mg/dL Normal 0.3-1.0 [facility] Comment on above: Performed By: #### P TT, HS TROP, CBC, PT, BNP, CMP, CK #### [facility] [address] [place] [address] CT angio chest PE protocolon 11-05-2023 CT angio chest PE protocol [facility] [place] [address] [place] [address] CT Scan Report Signed Patient: Genny Barboza MR#: [id number] : 1940 Acct:[id number] Age/Sex: 83 / F ADM Date: 11/05/23 Loc: ER Room: Type: [facility] ER Attending Dr: Copies to: Rona Andres DO Ordering Provider: Rona Andres DO Date of Service: 11/05/23 CT/CT angio chest PE protocol: recent cardiac cath, SOB CT angio chest PE protocol 11/05/2023 9:31 AM SIGN AND SYMPTOMS: Intermittent shortness of breath, history of colon cancer and lung nodule CONTRAST: 67 mL of intravenous Isovue-370 TECHNIQUE: Multidetector CT axial slices of the chest were obtained with IV contrast. Multiplanar and 3-D reformats were performed and viewed on a separate workstation and reviewed to further define anatomy and possible pathology. CT was performed with one or more of the following dose reduction techniques: Automated exposure control, adjustment of the mA and/or kV according to patient size, or use of iterative reconstruction technique. COMPARISON: 04/22/2023. FINDINGS: Lower neck: Thyroid gland within normal limits, no supraclavicle adenopathy. Vessels: Atherosclerotic changes are present within the aortic arch, origins of the great vessels, and within the coronary arteries. There is no evidence of pulmonary embolism. Mediastinum and Tamela: Within normal limits. Heart: Normal size. No pericardial effusion. Airways: Within normal limits Lungs: There is a slightly more prominent to 2.1 cm mass in the right posterior costophrenic sulcus. Emphysematous changes are present. Mild dependent atelectasis is noted in the lung bases. Pleura: Within normal limits. Chest Wall: Within normal limits. Upper Abdomen: There is a 2 cm focus of hypoattenuation in the liver similar to the prior exam. Bones: Degenerative changes are noted in the thoracolumbar spine. CT/CT angio chest PE protocol IMPRESSION: There is no evidence of pulmonary embolism. There is a slightly more prominent to 2.1 cm mass in the right posterior costophrenic sulcus. Emphysematous changes are present. Mild dependent atelectasis is noted in the lung bases. There is a 2 cm focus of hypoattenuation in the liver similar to the prior exam. Impression dictated by: Endy Crowley M.D.11/05/2023 10:53 AM Dictation Location: [place] [address] Transcribed By: [facility] 11/05/23 1053 Dictated By: Endy Crowley II, MD 11/05/23 1045 Signed By: 11/05/23 1053 Normal [facility] Calcium [Mass/volume] in Ser um or PlasmaOrdered By: MEGGAN ORTIZ on 11-05-2023 Calcium [Mass/Vol] 9.6 mg/dL Normal 8.6-10.3 [facility] Comment on above: Performed By: #### P TT, HS TROP, CBC, PT, BNP, CMP, CK #### [facility] [address] Carbon dioxide, total [Moles /volume] in Serum or PlasmaOrdered By: PROVIDER TEMP on 11-05-2023 CO2 [Moles/Vol] 22.2 mmol/L Normal 21.0-31.0 [facility] Comment on above: Performed By: #### P TT, HS TROP, CBC, PT, BNP, CMP, CK #### [facility] [address] Chloride [Moles/volume] in S carolyne or PlasmaOrdered By: PROVIDER TEMP on 11-05-2023 Chloride [Moles/Vol] 109 mmol/L High 98-107 [facility] Comment on above: Performed By: #### P TT, HS TROP, CBC, PT, BNP, CMP, CK #### [address] Complete Blood Count Auto Di ffon 11-05-2023 Mean Corpuscular HGB Conc 34.2 g/dL Normal 32.0-35.0 [facility] Comment on above: Performed By: #### P TT, HS TROP, CBC, PT, BNP, CMP, CK #### [address] Monocytes/100 WBC (Bld) 20.41 % High 0.00-20.00 [facility] Comment on above: Result Comment: For adults in ED, MDW > 20.0 may be associated with a higher risk of sepsis during the first 12 hrs of hospital admission Performed By: #### P TT, HS TROP, CBC, PT, BNP, CMP, CK #### [facility] [address] NRBC% 0.1 /100{WBC} Normal 0-0.5 [facility] Comment on above: Performed By: #### P TT, HS TROP, CBC, PT, BNP, CMP, CK #### [facility] [address] Comprehensive Metabolic Pane marianela 11-05-2023 Albumin [Mass/Vol] 4.1 g/dL Normal 3.5-5.7 [facility] Comment on above: Performed By: #### P TT, HS TROP, CBC, PT, BNP, CMP, CK #### [address] Creatinine Clr Calc Pharmacy 42.53 Normal [facility] Comment on above: Result Comment: PERF ORMED BY: [place] [address] PATHOLOGIST ACCESSIBILITY LIFT TECHNICIAN KAYLIN ARDON M.D. Performed By: #### P TT, HS TROP, CBC, PT, BNP, CMP, CK #### [address] GFR/1.73 sq M.predicted MDRD (S/P/Bld) [Vol rate/Area] mL/min/{1.73_m2} Normal [facility] Comment on above: Performed By: #### P TT, HS TROP, CBC, PT, BNP, CMP, CK #### [address] Creatine kinase [Enzymatic a ctivity/volume] in Serum or PlasmaOrdered By: PROVIDER TEMP on 11-05-2023 CK [Catalytic activity/Vol] 66 U/L Normal 30-223 [facility] Comment on above: Performed By: #### P TT, HS TROP, CBC, PT, BNP, CMP, CK #### [place] [address] [place] Creatinine [Mass/volume] in Serum or PlasmaOrdered By: PROVIDER TEMP on 11-05-2023 Creatinine [Mass/Vol] 0.87 mg/dL Normal 0.60-1.20 [facility] Comment on above: Performed By: #### P TT, HS TROP, CBC, PT, BNP, CMP, CK #### [address] ECG 12 lead ECGon 11-05-2023 ECG 12 lead ECG [facility] Main [place] [address] [place] [address] Electrocardiograph Report Signed Patient: Genny Barboza MR#: [id number] : 1940 Acct:[id number] Age/Sex: 83 / F ADM Date: 11/05/23 Loc: ER Room: Type: [facility] ER Attending Dr: Ordering Provider: Rona Andres DO Date of Service: 11/05/23 ECG/ECG 12 lead ECG: Shortness of Breath/Dyspnea Copies to: Test Reason : Blood Pressure : 148/86 mmHG Vent. Rate : 59 BPM Atrial Rate : 59 BPM P-R Int : 136 ms QRS Dur : 88 ms QT Int : 444 ms P-R-T Axes : 70 -57 93 degrees QTcB Int : 439 ms Sinus bradycardia Left axis deviation Low voltage QRS Cannot rule out Anterior infarct , age undetermined Abnormal ECG When compared with ECG of 29-Oct-2023 07:26, Significant changes have occurred Confirmed by SIM GIMENEZ DO ([id number]) on 11/05/2023 11:44:32 AM Referred By: Electronically Signed By: SIM GIMENEZ DO Transcribed By: MUS Signed By Sim Gimenez DO 1144 Normal [facility] Erythrocyte distribution wid th [Ratio] by Automated countOrdered By: PROVIDER TEMP on 11-05-2023 Erythrocyte distribution width (RBC) [Ratio] 13.4 % Normal 11.9-15.3 [facility] Comment on above: Performed By: #### P TT, HS TROP, CBC, PT, BNP, CMP, CK #### [facility] [address] [place] [address] [place] Erythrocytes [#/volume] in B lood by Automated countOrdered By: PROVIDER TEMP on 11-05-2023 RBC (Bld) [#/Vol] 4.19 10*6/uL Normal 3.60-5.00 [facility] Comment on above: Performed By: #### P TT, HS TROP, CBC, PT, BNP, CMP, CK #### [facility] [address] [place] [address] [place] Glucose [Mass/volume] in Ser um or PlasmaOrdered By: PROVIDER TEMP on 11-05-2023 Glucose [Mass/Vol] 104 mg/dL High 70-100 [facility] Comment on above: ADA recommended refe rence rangeRandom Glucose Reference Range is dependent on time and content of last meal. Glucose of more than 200 mg/dL in a nonstressed, ambulatory subject supports the diagnosis of Diabetes Mellitus. Result Comment: [place] om Glucose Reference Range is dependent on time and content of last meal. Glucose of more than 200 mg/dL in a nonstressed, ambulatory subject supports the diagnosis of Diabetes Mellitus. ADA recommended reference range Performed By: #### P TT, HS TROP, CBC, PT, BNP, CMP, CK #### [address] Hematocrit [Volume Fraction] of Blood by Automated countOrdered By: PROVIDER TEMP on 11-05-2023 Hematocrit (Bld) [Volume fraction] 40.1 % Normal 34.0-46.4 [facility] Comment on above: Performed By: #### P TT, HS TROP, CBC, PT, BNP, CMP, CK #### [address] Hemoglobin [Mass/volume] in BloodOrdered By: PROVIDER TEMP on 11-05-2023 Hemoglobin (Bld) [Mass/Vol] 13.7 g/dL Normal 11.8-15.4 [facility] Comment on above: Performed By: #### P TT, HS TROP, CBC, PT, BNP, CMP, CK #### [address] INR in Platelet poor plasma by Coagulation assayOrdered By: PROVIDER TEMP on 11-05-2023 INR Coag (PPP) [Relative time] 0.9 {INR} Normal [facility] Comment on above: INR Therapeutic Rang e A) Pre- and Peroperative OAT started two weeks before surgery. NOT HIP SURGERY: 1.5 - 2.5 HIP SURGERY: 2 - 3B) Primary and secondary prevention of venous THROMBOSIS: 2 - 3C) Active venous thrombosis, pulmonary embolismand prevention of recurrent venous thrombosis: 2 - 3D) Prevention of arterial thromboembolismincluding patients with mechanical heart valves: 3 - 4.5 Result Comment: INR Therapeutic Range A) Pre- and Peroperative OAT started two weeks before surgery. NOT HIP SURGERY: 1.5 - 2.5 HIP SURGERY: 2 - 3 B) Primary and secondary prevention of venous THROMBOSIS: 2 - 3 C) Active venous thrombosis, pulmonary embolism and prevention of recurrent venous thrombosis: 2 - 3 D) Prevention of arterial thromboembolism including patients with mechanical heart valves: 3 - 4.5 Performed By: #### L IPID, CBC, HS TROP, BMP #### [facility] [address] Leukocytes [#/volume] correc kristi for nucleated erythrocytes in Blood by Automated counOrdered By: PROVIDER TEMP on 11-05-2023 WBC corrected for nucl RBC Auto (Bld) [#/Vol] 6.7 10*3/uL 3.8-11.6 [facility] Leukocytes [#/volume] in Blo od by Automated countOrdered By: PROVIDER TEMP on 11-05-2023 WBC (Bld) [#/Vol] 6.7 10*3/uL Normal 3.8-11.6 [facility] Comment on above: Performed By: #### P TT, HS TROP, CBC, PT, BNP, CMP, CK #### [place] [address] [place] Lymphocytes [#/volume] in Bl ood by Automated countOrdered By: PROVIDER TEMP on 11-05-2023 Lymphocytes (Bld) [#/Vol] 1.0 10*3/uL Normal 1.00-4.8 [facility] Comment on above: Performed By: #### P TT, HS TROP, CBC, PT, BNP, CMP, CK #### [place] [address] [place] Lymphocytes/100 leukocytes i n Blood by Automated countOrdered By: PROVIDER TEMP on 11-05-2023 Lymphocytes/100 WBC (Bld) 15.0 % Normal . [facility] Comment on above: Performed By: #### P TT, HS TROP, CBC, PT, BNP, CMP, CK #### [place] [address] [place] MCH [Entitic mass] by Automa kristi countOrdered By: PROVIDER TEMP on 11-05-2023 MCH (RBC) [Entitic mass] 32.6 pg Normal 24.7-34.3 [facility] Comment on above: Performed By: #### P TT, HS TROP, CBC, PT, BNP, CMP, CK #### [facility] [address] MCHC Auto (RBC) [Mass/Vol]Or dered By: PROVIDER TEMP on 11-05-2023 MCHC (RBC) [Mass/Vol] 34.2 g/dL 32.0-35.0 [facility] MCV [Entitic volume] by Auto mated countOrdered By: PROVIDER TEMP on 11-05-2023 MCV (RBC) [Entitic vol] 95.5 fL Normal 80-100 [facility] Comment on above: Performed By: #### P TT, HS TROP, CBC, PT, BNP, CMP, CK #### [facility] [address] [place] [address] Monocyte distribution width [Entitic volume] in Blood by AutomatedOrdered By: PROVIDER TEMP on 11-05-2023 Monocyte distribution width Auto (Bld) [Entitic vol] 20.41 % High 0.00-20.00 [facility] Comment on above: For adults in ED, MD W > 20.0 may be associated with a higher risk of sepsis during the first 12 hrs of hospital admission Neutrophils [#/volume] in Bl ood by Automated countOrdered By: PROVIDER TEMP on 11-05-2023 Neutrophils (Bld) [#/Vol] 5.0 10*3/uL Normal 1.8-7.7 [facility] Comment on above: Performed By: #### P TT, HS TROP, CBC, PT, BNP, CMP, CK #### [facility] [address] No Panel InformationOrdered By: PROVIDER TEMP on 11-05-2023 Estimated GFR (CKD-EPI) > 60.0 mL/Min [facility] Creatinine Clearance (Chem 42.53 [facility] Nucleated erythrocytes [Pres ence] in Blood by Automated countOrdered By: PROVIDER TEMP on 11-05-2023 Nucleated RBC Auto Ql (Bld) 0.1 /100{WBC} 0-0.5 [facility] Partial Thromboplastin Timeo n 11-05-2023 aPTT Coag (Bld) [Time] 30.2 s Normal 25.1-36.5 [facility] Comment on above: Result Comment: A he matocrit value greater than 55% may lead to inaccurate results in coagulation testing. Patients having hematocrit values >55% require a special collection tube for coagulation studies. Please contact the laboratory at [phone] for redraw instructions. PERFORMED BY: [place] [address] PATHOLOGIST ACCESSIBILITY LIFT TECHNICIAN KAYLIN ARDON M.D. Performed By: #### L IPID, CBC, HS TROP, BMP #### [facility] [address] [place] [address] [place] Platelet mean volume [Entiti c volume] in Blood by Automated countOrdered By: PROVIDER TEMP on 11-05-2023 Platelet mean volume (Bld) [Entitic vol] 8.0 fL Normal 6.3-10.7 [facility] Comment on above: Performed By: #### P TT, HS TROP, CBC, PT, BNP, CMP, CK #### [facility] [address] [place] [address] [place] Platelets [#/volume] in Bloo d by Automated countOrdered By: PROVIDER TEMP on 11-05-2023 Platelets (Bld) [#/Vol] 314 10*3/uL Normal 150-450 [facility] Comment on above: Performed By: #### P TT, HS TROP, CBC, PT, BNP, CMP, CK #### [facility] [address] [place] [address] [place] Potassium [Moles/volume] in Serum or PlasmaOrdered By: PROVIDER TEMP on 11-05-2023 Potassium [Moles/Vol] 4.3 mmol/L Normal 3.5-5.1 [facility] Comment on above: Performed By: #### P TT, HS TROP, CBC, PT, BNP, CMP, CK #### [facility] [address] [place] [address] [place] Protein [Mass/volume] in Ser um or PlasmaOrdered By: PROVIDER TEMP on 11-05-2023 Protein [Mass/Vol] 6.8 g/dL Normal 6.4-8.9 [facility] Comment on above: Performed By: #### P TT, HS TROP, CBC, PT, BNP, CMP, CK #### [address] Prothrombin time (PT)Ordered By: PROVIDER TEMP on 11-05-2023 PT Coag (PPP) [Time] 11.0 s Normal 9.0-12.9 [facility] Comment on above: A hematocrit value g reater than 55% may lead to inaccurate results in coagulation testing. Patients having hematocrit values >55% require a special collection tube for coagulation studies. Please contact the laboratory at [phone] for redraw instructions. Result Comment: A he matocrit value greater than 55% may lead to inaccurate results in coagulation testing. Patients having hematocrit values >55% require a special collection tube for coagulation studies. Please contact the laboratory at [phone] for redraw instructions. Performed By: #### L IPID, CBC, HS TROP, BMP #### [address] Serum globulin measurement b y calculation (mass/volume)Ordered By: PROVIDER TEMP on 11-05-2023 Globulin (S) [Mass/Vol] 2.7 g/dL [facility] Comment on above: Performed By: #### P TT, HS TROP, CBC, PT, BNP, CMP, CK #### [facility] [address] [place] [address] Serum or plasma albumin/glob ulin mass ratioOrdered By: PROVIDER TEMP on 11-05-2023 Albumin/Globulin [Mass ratio] 1.5 {ratio} [facility] Comment on above: Performed By: #### P TT, HS TROP, CBC, PT, BNP, CMP, CK #### [address] Serum or plasma anion gap de terminationOrdered By: PROVIDER TEMP on 11-05-2023 Anion gap [Moles/Vol] 12.1 mmol/L Normal 6.0-15.0 [facility] Comment on above: Performed By: #### P TT, HS TROP, CBC, PT, BNP, CMP, CK #### [facility] [address] [place] [address] [place] Sodium [Moles/volume] in Ser um or PlasmaOrdered By: PROVIDER TEMP on 11-05-2023 Sodium [Moles/Vol] 139 mmol/L Normal 136-145 [facility] Comment on above: Performed By: #### P TT, HS TROP, CBC, PT, BNP, CMP, CK #### [place] [address] [place] Troponin I High Sensitivityo n 11-05-2023 Troponin I High Sensitivity 36.1 pg/mL High 0.0-15.0 [facility] Comment on above: Result Comment: PERF ORMED BY: [place] [address] PATHOLOGIST ACCESSIBILITY LIFT TECHNICIAN KAYLIN ARDON M.D. Performed By: #### L IPID, CBC, HS TROP, BMP #### [address] Troponin I High Sensitivity 34.8 pg/mL High 0.0-15.0 [facility] Comment on above: Result Comment: PERF ORMED BY: [place] [address] PATHOLOGIST ACCESSIBILITY LIFT TECHNICIAN KAYLIN ARDON M.D. Performed By: #### P TT, HS TROP, CBC, PT, BNP, CMP, CK #### [address] Troponin I.cardiac [Mass/vol ume] in Serum or Plasma by Detection limit <= 0.01 ng/Ordered By: Rona Andres on 11-05-2023 Troponin I.cardiac DL <= 0.01 ng/mL [Mass/Vol] 36.1 pg/mL High 0.0-15.0 [facility] Urea nitrogen [Mass/volume] in Serum or PlasmaOrdered By: PROVIDER TEMP on 11-05-2023 Urea nitrogen [Mass/Vol] 20 mg/dL Normal 7-25 [facility] Comment on above: Performed By: #### P TT, HS TROP, CBC, PT, BNP, CMP, CK #### [facility] [address] [place] [id number] [place] XR chest 1V portableon 11-04 XR chest 1V portable [facility] Main [place] [address] [place] [address] XRay Report Signed Patient: Genny Barboza MR#: [id number] : 1940 Acct:[id number] Age/Sex: 83 / F ADM Date: 11/05/23 Loc: ER Room: Type: PRE ER Attending Dr: Copies to: MEGGAN ORTIZ Ordering Provider: MEGGAN ORTIZ Date of Service: 11/05/23 XR/XR chest 1V portable: Shortness of Breath/Dyspnea Plain film chest Single view HISTORY: Intermittent shortness of breath COMPARISON: 10/27/2023 FINDINGS: SUPPORT DEVICES: None POSTSURGICAL CHANGES: None HEART: Borderline cardiomegaly redemonstrated. PULMONARY TAMELA: Hilar vascular prominence redemonstrated. MEDIASTINUM: Unremarkable LUNGS AND PLEURA: Mild hilar basilar groundglass parenchymal density. No large pleural effusion or pneumothorax. BONY STRUCTURES: Intact ADDITIONAL FINDINGS None XR/XR chest 1V portable IMPRESSION: Similar borderline cardiomegaly with hilar congestion. Similar basilar and perihilar groundglass parenchymal densities. Consider failure. Impression dictated by: Juan Antonio Martinez M.D.11/05/2023 7:45 AM Dictation Location: [place] [address] Transcribed By: [facility] 11/05/23 0745 Dictated By: Juan nAtonio Martinez DO 11/05/23 0743 Signed By: 11/05/23 0745 Normal [facility] Automated basophil %Ordered By: Reji Frausto on 10-29-2023 Basophils/100 WBC (Bld) 0.7 % Normal . [facility] Comment on above: Performed By: #### L IPID, CBC, HS TROP, BMP #### [facility] [address] [place], [place] [id number] [facility] Automated basophil countOrde red By: Reji Frausto on 10-29-2023 Basophils (Bld) [#/Vol] 0.1 10*3/uL Normal 0.0-0.2 [facility] Comment on above: Result Comment: PERF ORMED BY: [place] [address] PATHOLOGIST ACCESSIBILITY LIFT TECHNICIAN KAYLIN ARDON M.D. Performed By: #### L IPID, CBC, HS TROP, BMP #### [address] Automated blood monocyte cou ntOrdered By: Reji Frausto on 10-29-2023 Monocytes (Bld) [#/Vol] 0.8 10*3/uL Normal 0.0-0.8 [facility] Comment on above: Performed By: #### L IPID, CBC, HS TROP, BMP #### [address] Automated eosinophil %Ordere d By: Reji Frausto on 10-29-2023 Eosinophils/100 WBC (Bld) 0.6 % Normal . [facility] Comment on above: Performed By: #### L IPID, CBC, HS TROP, BMP #### [address] Automated eosinophil countOr dered By: Reji Frausto on 10-29-2023 Eosinophils (Bld) [#/Vol] 0.0 10*3/uL Normal 0.0-0.45 [facility] Comment on above: Performed By: #### L IPID, CBC, HS TROP, BMP #### [address] Automated monocyte %Ordered By: Reji Frausto on 10-29-2023 Monocytes/100 WBC (Bld) 9.4 % Normal . [facility] Comment on above: Performed By: #### L IPID, CBC, HS TROP, BMP #### [address] Automated neutrophil %Ordere d By: Reji Frausto on 10-29-2023 Neutrophils/100 WBC (Bld) 73.5 % Normal . [facility] Comment on above: Performed By: #### L IPID, CBC, HS TROP, BMP #### [facility] [address] [place] [address] Basic Metabolic Panelon Creatinine Clr Calc Pharmacy 41.47 Normal [facility] Comment on above: Result Comment: PERF ORMED BY: [place] [address] PATHOLOGIST ACCESSIBILITY LIFT TECHNICIAN KAYLIN ARODN M.D. Performed By: #### L IPID, CBC, HS TROP, BMP #### [place] [address] [place] GFR/1.73 sq M.predicted MDRD (S/P/Bld) [Vol rate/Area] mL/min/{1.73_m2} Normal [facility] Comment on above: Performed By: #### L IPID, CBC, HS TROP, BMP #### [place] [address] [place] Calcium [Mass/volume] in Ser um or PlasmaOrdered By: Reji Frausto on 10-29-2023 Calcium [Mass/Vol] 9.3 mg/dL Normal 8.6-10.3 [facility] Comment on above: Performed By: #### L IPID, CBC, HS TROP, BMP #### [place] [address] [place] Carbon dioxide, total [Moles /volume] in Serum or PlasmaOrdered By: Reji Frausto on 10-29-2023 CO2 [Moles/Vol] 24.3 mmol/L Normal 21.0-31.0 [facility] Comment on above: Performed By: #### L IPID, CBC, HS TROP, BMP #### [facility] [address] [place] [address] [place] Chloride [Moles/volume] in S carolyne or PlasmaOrdered By: Reji Frausto on 10-29-2023 Chloride [Moles/Vol] 109 mmol/L High 98-107 [facility] Comment on above: Performed By: #### L IPID, CBC, HS TROP, BMP #### [address] [place] [address] [place] Complete Blood Count Auto Di ffon 10-29-2023 Mean Corpuscular HGB Conc 33.9 g/dL Normal 32.0-35.0 [facility] Comment on above: Performed By: #### L IPID, CBC, HS TROP, BMP #### [facility] [address] NRBC% 0.1 /100{WBC} Normal 0-0.5 [facility] Comment on above: Performed By: #### L IPID, CBC, HS TROP, BMP #### [facility] [address] [place] [address] Creatinine [Mass/volume] in Serum or PlasmaOrdered By: Reji Frausto on 10-29-2023 Creatinine [Mass/Vol] 0.91 mg/dL Normal 0.60-1.20 [facility] Comment on above: Performed By: #### L IPID, CBC, HS TROP, BMP #### [address] ECG 12 lead ECGon 10-29-2023 ECG 12 lead ECG [facility] [place] [address] [place] [address] Electrocardiograph Report Signed Patient: Genny Barboza MR#: [id number] : 1940 Acct:[id number] Age/Sex: 83 / F ADM Date: 10/27/23 Loc: Room: [address] [place] [address] Type: DIS IN Attending Dr: Reji Frausto DO Ordering Provider: Reji Frausto DO Date of Service: 10/29/2309/15/499 ECG/ECG 12 lead ECG: Inferior STEMI Copies to: Test Reason : Blood Pressure : */* mmHG Vent. Rate : 61 BPM Atrial Rate : 80 BPM P-R Int : 136 ms QRS Dur : 90 ms QT Int : 458 ms P-R-T Axes : 90 -31 -69 degrees QTcB Int : 461 ms Sinus rhythm with premature atrial complexes in a pattern of bigeminy Left axis deviation Pulmonary disease pattern RSR' or QR pattern in V1 suggests right ventricular conduction delay Abnormal ECG Confirmed by Marilou Wilhelm ([id number]) on 10/29/2023 6:55:05 PM Referred By: Electronically Signed By: Marilou Wilhelm Transcribed By: MUS Signed By Marilou Wilhelm DO 4 1855 Normal [facility] Erythrocyte distribution wid th [Ratio] by Automated countOrdered By: Reji Frausto on 10-29-2023 Erythrocyte distribution width (RBC) [Ratio] 13.8 % Normal 11.9-15.3 [facility] Comment on above: Performed By: #### L IPID, CBC, HS TROP, BMP #### [facility] [address] Erythrocytes [#/volume] in B lood by Automated countOrdered By: Reji Frausto on 10-29-2023 RBC (Bld) [#/Vol] 3.96 10*6/uL Normal 3.60-5.00 [facility] Comment on above: Performed By: #### L IPID, CBC, HS TROP, BMP #### [facility] [address] [place] [address] [place] Glucose [Mass/volume] in Ser um or PlasmaOrdered By: Reji Frausto on 10-29-2023 Glucose [Mass/Vol] 105 mg/dL High 70-100 [facility] Comment on above: ADA recommended refe rence rangeRandom Glucose Reference Range is dependent on time and content of last meal. Glucose of more than 200 mg/dL in a nonstressed, ambulatory subject supports the diagnosis of Diabetes Mellitus. Result Comment: [place] om Glucose Reference Range is dependent on time and content of last meal. Glucose of more than 200 mg/dL in a nonstressed, ambulatory subject supports the diagnosis of Diabetes Mellitus. ADA recommended reference range Performed By: #### L IPID, CBC, HS TROP, BMP #### [facility] [address] [place] [id number] [place] Hematocrit [Volume Fraction] of Blood by Automated countOrdered By: Reji Frausto on 10-29-2023 Hematocrit (Bld) [Volume fraction] 38.2 % Normal 34.0-46.4 [facility] Comment on above: Performed By: #### L IPID, CBC, HS TROP, BMP #### [facility] [address] [place] [address] Hemoglobin [Mass/volume] in BloodOrdered By: Reji Frausto on 10-29-2023 Hemoglobin (Bld) [Mass/Vol] 12.9 g/dL Normal 11.8-15.4 [facility] Comment on above: Performed By: #### L IPID, CBC, HS TROP, BMP #### [facility] [address] [place] [address] [place] Leukocytes [#/volume] correc kristi for nucleated erythrocytes in Blood by Automated counOrdered By: Reji Frausto on 10-29-2023 WBC corrected for nucl RBC Auto (Bld) [#/Vol] 8.1 10*3/uL 3.8-11.6 [facility] Leukocytes [#/volume] in Blo od by Automated countOrdered By: Reji Frausto on 10-29-2023 WBC (Bld) [#/Vol] 8.1 10*3/uL Normal 3.8-11.6 [facility] Comment on above: Performed By: #### L IPID, CBC, HS TROP, BMP #### [facility] [address] [place] [address] [place] Lymphocytes [#/volume] in Bl ood by Automated countOrdered By: Reji Frausto on 10-29-2023 Lymphocytes (Bld) [#/Vol] 1.3 10*3/uL Normal 1.00-4.8 [facility] Comment on above: Performed By: #### L IPID, CBC, HS TROP, BMP #### [facility] [address] [place] [address] [place] Lymphocytes/100 leukocytes i n Blood by Automated countOrdered By: Reji Frausto on 10-29-2023 Lymphocytes/100 WBC (Bld) 15.8 % Normal . [facility] Comment on above: Performed By: #### L IPID, CBC, HS TROP, BMP #### [facility] [address] [place] [address] [place] MCH [Entitic mass] by Automa kristi countOrdered By: Reji Frausto on 10-29-2023 MCH (RBC) [Entitic mass] 32.7 pg Normal 24.7-34.3 [facility] Comment on above: Performed By: #### L IPID, CBC, HS TROP, BMP #### [facility] [address] [place] [address] MCHC Auto (RBC) [Mass/Vol]Or dered By: Reji Frausto on 10-29-2023 MCHC (RBC) [Mass/Vol] 33.9 g/dL 32.0-35.0 [facility] MCV [Entitic volume] by Auto mated countOrdered By: Reji Frausto on 10-29-2023 MCV (RBC) [Entitic vol] 96.5 fL Normal 80-100 [facility] Comment on above: Performed By: #### L IPID, CBC, HS TROP, BMP #### [facility] [address] [place] [address] Neutrophils [#/volume] in Bl ood by Automated countOrdered By: Reji Frausto on 10-29-2023 Neutrophils (Bld) [#/Vol] 5.9 10*3/uL Normal 1.8-7.7 [facility] Comment on above: Performed By: #### L IPID, CBC, HS TROP, BMP #### [facility] [address] [place] [address] No Panel InformationOrdered By: Reji Frausto on 10-29-2023 Estimated GFR (CKD-EPI) > 60.0 mL/Min [facility] Creatinine Clearance (Chem 41.47 [facility] Nucleated erythrocytes [Pres ence] in Blood by Automated countOrdered By: Reji Frausto on 10-29-2023 Nucleated RBC Auto Ql (Bld) 0.1 /100{WBC} 0-0.5 [facility] Platelet mean volume [Entiti c volume] in Blood by Automated countOrdered By: Reji Frausto on 10-29-2023 Platelet mean volume (Bld) [Entitic vol] 8.0 fL Normal 6.3-10.7 [facility] Comment on above: Performed By: #### L IPID, CBC, HS TROP, BMP #### [facility] [address] [place] [address] [place] Platelets [#/volume] in Bloo d by Automated countOrdered By: Reji Frausto on 10-29-2023 Platelets (Bld) [#/Vol] 261 10*3/uL Normal 150-450 [facility] Comment on above: Performed By: #### L IPID, CBC, HS TROP, BMP #### [facility] [address] [place] [address] [place] Potassium [Moles/volume] in Serum or PlasmaOrdered By: Reji Frausto on 10-29-2023 Potassium [Moles/Vol] 4.0 mmol/L Normal 3.5-5.1 [facility] Comment on above: Performed By: #### L IPID, CBC, HS TROP, BMP #### [facility] [address] [place] [address] Serum or plasma anion gap de terminationOrdered By: Reji Frausto on 10-29-2023 Anion gap [Moles/Vol] 8.7 mmol/L Normal 6.0-15.0 [facility] Comment on above: Performed By: #### L IPID, CBC, HS TROP, BMP #### [facility] [address] [place] [address] [place] Sodium [Moles/volume] in Ser um or PlasmaOrdered By: Reji Frausto on 10-29-2023 Sodium [Moles/Vol] 138 mmol/L Normal 136-145 [facility] Comment on above: Performed By: #### L IPID, CBC, HS TROP, BMP #### [facility] [address] [place] [address] [place] Urea nitrogen [Mass/volume] in Serum or PlasmaOrdered By: Reji Frausto on 10-29-2023 Urea nitrogen [Mass/Vol] 17 mg/dL Normal 7-25 [facility] Comment on above: Performed By: #### L IPID, CBC, HS TROP, BMP #### [facility] [address] [place] [address] Basic Metabolic Panelon 08 Anion gap [Moles/Vol] 6.3 mmol/L Normal 6.0-15.0 [facility] Comment on above: Performed By: #### L IPID, CBC, HS TROP, BMP #### [facility] [address] Calcium [Mass/Vol] 9.3 mg/dL Normal 8.6-10.3 [facility] Comment on above: Performed By: #### L IPID, CBC, HS TROP, BMP #### [facility] [address] [place] [address] [place] Chloride [Moles/Vol] 112 mmol/L High 98-107 [facility] Comment on above: Performed By: #### L IPID, CBC, HS TROP, BMP #### [address] CO2 [Moles/Vol] 20.7 mmol/L Low 21.0-31.0 [facility] Comment on above: Performed By: #### L IPID, CBC, HS TROP, BMP #### [place] [address] [place] Creatinine [Mass/Vol] 0.85 mg/dL Normal 0.60-1.20 [facility] Comment on above: Performed By: #### L IPID, CBC, HS TROP, BMP #### [place] [address] [place] Creatinine Clr Calc Pharmacy 44.36 Normal [facility] Comment on above: Performed By: #### L IPID, CBC, HS TROP, BMP #### [place] [address] [place] GFR/1.73 sq M.predicted MDRD (S/P/Bld) [Vol rate/Area] mL/min/{1.73_m2} Normal [facility] Comment on above: Performed By: #### L IPID, CBC, HS TROP, BMP #### [address] Glucose [Mass/Vol] 104 mg/dL High 70-100 [facility] Comment on above: Result Comment: [place] Glucose Reference Range is dependent on time and content of last meal. Glucose of more than 200 mg/dL in a nonstressed, ambulatory subject supports the diagnosis of Diabetes Mellitus. ADA recommended reference range Performed By: #### L IPID, CBC, HS TROP, BMP #### [facility] [address] Potassium [Moles/Vol] 4.0 mmol/L Normal 3.5-5.1 [facility] Comment on above: Performed By: #### L IPID, CBC, HS TROP, BMP #### [facility] [address] [place] [address] [place] Sodium [Moles/Vol] 135 mmol/L Low 136-145 [facility] Comment on above: Performed By: #### L IPID, CBC, HS TROP, BMP #### [facility] [address] [place] [address] [place] Urea nitrogen [Mass/Vol] 17 mg/dL Normal 7-25 [facility] Comment on above: Performed By: #### L IPID, CBC, HS TROP, BMP #### [facility] [address] [place] [address] [place] Cholesterol [Mass/volume] in Serum or PlasmaOrdered By: Reji Frausto on 10-28-2023 Cholesterol [Mass/Vol] 241 mg/dL High 140-200 [facility] Comment on above: Chol less than 200 m g/dl low riskChol 201-239 mg/dl borderline riskChol 240 mg/dl and greater high risk Result Comment: Chol less than 200 mg/dl low risk Chol 201-239 mg/dl borderline risk Chol 240 mg/dl and greater high risk Performed By: #### L IPID, CBC, HS TROP, BMP #### [facility] [address] [place] [id number] [place] Cholesterol in LDL Calc [Mas s/Vol]Ordered By: Reji Frausto on 10-28-2023 Cholesterol in LDL [Mass/Vol] 108 mg/dL High 0-100 [facility] Comment on above: LDL ATP III CLASSIFI CATIONLDL less than 100 mg/dL OptimalLDL 100-129 mg/dL Near or above optimalLDL 130-159 mg/dL Borderline highLDL 160-189 mg/dL HighLDL greater than 189 mg/dL Very high Cholesterol in VLDL Calc [Ma ss/Vol]Ordered By: Reji Frausto on 10-28-2023 Cholesterol in VLDL [Mass/Vol] 20 mg/dL [facility] Complete Blood Count Auto Di ffon 10-28-2023 Basophils (Bld) [#/Vol] 0.1 10*3/uL Normal 0.0-0.2 [facility] Comment on above: Result Comment: PERF ORMED BY: [place] [address] PATHOLOGIST ACCESSIBILITY LIFT TECHNICIAN KAYLIN ARDON M.D. Performed By: #### L IPID, CBC, HS TROP, BMP #### [address] Basophils/100 WBC (Bld) 0.9 % Normal . [facility] Comment on above: Performed By: #### L IPID, CBC, HS TROP, BMP #### [address] Eosinophils (Bld) [#/Vol] 0.0 10*3/uL Normal 0.0-0.45 [facility] Comment on above: Performed By: #### L IPID, CBC, HS TROP, BMP #### [address] Eosinophils/100 WBC (Bld) 0.5 % Normal . [facility] Comment on above: Performed By: #### L IPID, CBC, HS TROP, BMP #### [address] Erythrocyte distribution width (RBC) [Ratio] 13.7 % Normal 11.9-15.3 [facility] Comment on above: Performed By: #### L IPID, CBC, HS TROP, BMP #### [address] Hematocrit (Bld) [Volume fraction] 37.9 % Normal 34.0-46.4 [facility] Comment on above: Performed By: #### L IPID, CBC, HS TROP, BMP #### [address] Hemoglobin (Bld) [Mass/Vol] 12.7 g/dL Normal 11.8-15.4 [facility] Comment on above: Performed By: #### L IPID, CBC, HS TROP, BMP #### [address] Lymphocytes (Bld) [#/Vol] 1.7 10*3/uL Normal 1.00-4.8 [facility] Comment on above: Performed By: #### L IPID, CBC, HS TROP, BMP #### [address] Lymphocytes/100 WBC (Bld) 20.4 % Normal . [facility] Comment on above: Performed By: #### L IPID, CBC, HS TROP, BMP #### [address] MCH (RBC) [Entitic mass] 32.6 pg Normal 24.7-34.3 [facility] Comment on above: Performed By: #### L IPID, CBC, HS TROP, BMP #### [address] MCV (RBC) [Entitic vol] 97.0 fL Normal 80-100 [facility] Comment on above: Performed By: #### L IPID, CBC, HS TROP, BMP #### [address] Mean Corpuscular HGB Conc 33.5 g/dL Normal 32.0-35.0 [facility] Comment on above: Performed By: #### L IPID, CBC, HS TROP, BMP #### [address] Monocytes (Bld) [#/Vol] 0.9 10*3/uL High 0.0-0.8 [facility] Comment on above: Performed By: #### L IPID, CBC, HS TROP, BMP #### [address] Monocytes/100 WBC (Bld) 10.2 % Normal . [facility] Comment on above: Performed By: #### L IPID, CBC, HS TROP, BMP #### [facility] [address] [place] [address] Neutrophils (Bld) [#/Vol] 5.7 10*3/uL Normal 1.8-7.7 [facility] Comment on above: Performed By: #### L IPID, CBC, HS TROP, BMP #### [place] [address] [place] Neutrophils/100 WBC (Bld) 68.0 % Normal . [facility] Comment on above: Performed By: #### L IPID, CBC, HS TROP, BMP #### [facility] [address] [place] [address] NRBC% 0.1 /100{WBC} Normal 0-0.5 [facility] Comment on above: Performed By: #### L IPID, CBC, HS TROP, BMP #### [address] Platelet mean volume (Bld) [Entitic vol] 7.7 fL Normal 6.3-10.7 [facility] Comment on above: Performed By: #### L IPID, CBC, HS TROP, BMP #### [place] [address] [place] Platelets (Bld) [#/Vol] 254 10*3/uL Normal 150-450 [facility] Comment on above: Performed By: #### L IPID, CBC, HS TROP, BMP #### [facility] [address] [place] [address] [place] RBC (Bld) [#/Vol] 3.90 10*6/uL Normal 3.60-5.00 [facility] Comment on above: Performed By: #### L IPID, CBC, HS TROP, BMP #### [place] [address] [place] WBC (Bld) [#/Vol] 8.4 10*3/uL Normal 3.8-11.6 [facility] Comment on above: Performed By: #### L IPID, CBC, HS TROP, BMP #### [place] [id number] [facility] ECG 12 lead ECGon 10-28-2023 ECG 12 lead ECG [facility] [place] [address] Electrocardiograph Report Signed Patient: Genny Barboza MR#: [id number] : 1940 Acct:[id number] Age/Sex: 83 / F ADM Date: 10/27/23 Loc: Room: [address] [place] [address] Type: DIS IN Attending Dr: Reji Frausto DO Ordering Provider: Reji Frausto DO Date of Service: 10/28/2308/15/499 ECG/ECG 12 lead ECG: Post Angioplasty Procedure in AM Copies to: Test Reason : Blood Pressure : */* mmHG Vent. Rate : 62 BPM Atrial Rate : 82 BPM P-R Int : 120 ms QRS Dur : 98 ms QT Int : 440 ms P-R-T Axes : 83 -74 -72 degrees QTcB Int : 446 ms Sinus rhythm with premature atrial complexes in a pattern of bigeminy Left axis deviation Abnormal ECG Confirmed by Marilou Wilhelm ([id number]) on 10/29/2023 6:36:19 PM Referred By: Electronically Signed By: Marilou Wilhelm Transcribed By: MUS Signed By Marilou Wilhelm DO 4 1836 Normal [facility] ECG 12 lead ECG [facility] [address] Electrocardiograph Report Signed Patient: Genny Barboza MR#: [id number] : 1940 Acct:[id number] Age/Sex: 83 / F ADM Date: 10/27/23 Loc: Room: [address] [place] [address] Type: DIS IN Attending Dr: Reji Frausto DO Ordering Provider: Reji Frausto DO Date of Service: 10/28/2308/15/518 ECG/ECG 12 lead ECG: prn ekg Copies to: Test Reason : Blood Pressure : */* mmHG Vent. Rate : 64 BPM Atrial Rate : 88 BPM P-R Int : 142 ms QRS Dur : 96 ms QT Int : 430 ms P-R-T Axes : 67 -60 270 degrees QTcB Int : 443 ms Sinus rhythm with marked sinus arrhythmia with premature atrial complexes in a pattern of bigeminy Left axis deviation Abnormal ECG When compared with ECG of 27-Oct-2023 18:53, premature atrial complexes are now present Confirmed by Lorenzo Mora ([id number]) on 11/07/2023 10:40:27 AM Referred By: Electronically Signed By: Lorenzo Mora Transcribed By: MUS Signed By Lorenzo Mora MD 11/07/23 1040 Normal [facility] echo transthoracicon [facility] echo transthoracic [facility] [place] [address] Echocardiogram Signed Patient: Genny Barboza MR#: [id number] : 1940 Acct:[id number] Age/Sex: 83 / F ADM Date: 10/27/23 Loc: Room: [address] [place] [address] Type: ADM IN Attending Dr: Reji Frausto DO Ordering Provider: Reji Frausto DO Date of Service: 10/28/2308/15/499 [facility] echo transthoracic: Acute inferior STEMI Copies to: DO Reji Sandoval DO E 10:40 AM Patient Location: : 1940 Gender: Female (MM/DD/YYYY) Age: 83 Years Ordering Physician: Reji Frausto Height: 60.63 in Weight: 151.003 lb Performed By: Rupal Joe RDCS BSA: 1.67 m2 BP: 130 / 63 mmHg HR: 60 bpm Reason For Study: Acute inferior STEMI History: PCI 10/27/23. Smoker. COVID-19. + -+ Interpretation Summary Indication: 83 y/o F inferior STEMI Impression: Normal LV systolic function Report Details: 1. Normal LV systolic function with EF ??? 52% w/out regional wall motion abnormalities 2. Normal LV chamber size with mild hypertrophy 3. Normal RV global systolic function 4. RV chamber size: normal by visual inspection 5. LA size: enlarged 6. RA size: normal by visual estimation 7. Aortic valve: normal structure and function 8. Mitral valve: normal structure with physiologic regurgitation 9. Tricuspid valve: normal structure and function (physiologic regurgitation) 10. Pulmonary valve: not well visualized, with physiologic to mild regurgitation by Doppler 11. Pericardial effusion: pericardium not visualized in its entirety 12. IVC dilated 13. Proximal ascending aortic diameter: upper normal limits (3.6 cm) Procedure/Quality: A two-dimensional transthoracic echocardiogram with color flow, Doppler and injection of contrast agent Definity was performed. MMode/2D Measurements Calculations IVSd (0.7-1.1 cm): 1.29 cm LVIDd (3.7-5.4 cm): 4.3 cm LVPWd (0.7-1.1 cm): 1.32 cm LVIDs (2.3-3.6 cm): 3.0 cm LA dimension (2.3-4.0 cm): 3.7 Ao root diam (2.0-3.2 cm): 3.2 cm cm FS: 30.7 % Ao root area: 8.1 cm2 EDV(Teich): 84.1 ml LVOT diam: 2.03 cm ESV(Teich): 34.8 ml LVOT area: 3.3 cm2 EF(Teich): 58.6 % LAV(MOD-sp2): 33.6 ml LAV(MOD-sp4): 26.8 ml LA A2 area: 16.7 cm2 LA A4 area: 13.7 cm2 LA length (vol): 5.4 cm LA vol: 36.0 ml LA vol index: 21.6 ml/m2 Doppler Measurements Calculations MV E max anastacia: 75.4 cm/sec Ao V2 max: 131.4 cm/sec MV A max anastacia: 58.3 cm/sec Ao max P.9 mmHg MR max anastacia: 473.9 cm/sec Ao mean P.3 mmHg MV dec time: 0.20 sec Ao V2 mean: 98.2 cm/sec MV dec slope: 375.7 cm/sec?? Ao V2 VTI: 24.9 cm E/E' lat: 7.4 SHANITA(I,D): 2.29 cm2 E/E' med: 12.0 SHANITA(V,D): 2.29 cm2 TV max P.0 mmHg LV V1 max: 92.5 cm/sec TR max anastacia: 207.7 cm/sec LV V1 max P.4 mmHg TR max P.3 mmHg LV V1 mean: 65.2 cm/sec RAP systole: 8.0 mmHg LV V1 mean P.97 mmHg LV V1 VTI: 17.6 cm + + + --+ + : Electronically : : signed by: Marilou : : : : Melonie : : : : : : on: 10/28/2023, : : 6:43 PM : Transcribed By: NICKOLAS Performed At: 10/28/23 1040 Signed By: Marilou Wilhelm, 10/28/23 1843 Normal [facility] Lipid Panelon 10-28-2023 LDL Cholesterol,Calculated 108 mg/dL High 0-100 [facility] Comment on above: Result Comment: LDL ATP III CLASSIFICATION LDL less than 100 mg/dL Optimal LDL 100-129 mg/dL Near or above optimal LDL 130-159 mg/dL Borderline high LDL 160-189 mg/dL High LDL greater than 189 mg/dL Very high Performed By: #### L IPID, CBC, HS TROP, BMP #### [facility] [address] Triglyceride w/Reflex 103 mg/dL Normal 0-149 [facility] Comment on above: Result Comment: TRIG ATP III CLASSIFICATION TRIG less than 150 mg/dL Normal TRIG 150-199 mg/dL Borderline high TRIG 200-500 mg/dL High TRIG greater than 500 mg/dL Very high Standard traceable to the Center for Disease Conrtrol and Prevention (CDC) test method. Performed By: #### L IPID, CBC, HS TROP, BMP #### [address] VLDL CHOLESTEROL 20 mg/dL Normal [facility] Comment on above: Performed By: #### L IPID, CBC, HS TROP, BMP #### [address] Serum or plasma high density lipoprotein (HDL) cholesterol measurementOrdered By: Reji Frausto on 10-28-2023 Cholesterol in HDL [Mass/Vol] 112 mg/dL High 23- [facility] Comment on above: HDL CHOL ATP-III CLA SSIFICATION Cardiovascular RiskHDL > or equal to 60 mg/dL LOWHDL < 40 mg/dL HIGH Result Comment: HDL CHOL ATP-III CLASSIFICATION Cardiovascular Risk HDL > or equal to 60 mg/dL LOW HDL < 40 mg/dL HIGH Performed By: #### L IPID, CBC, HS TROP, BMP #### [address] Serum or plasma total choles terol/high density lipoprotein (HDL) cholesterol mass ratOrdered By: Reji Frausto on 10-28-2023 Cholesterol.total/Chol esterol in HDL [Mass ratio] 2.2 {ratio} Normal <5.0 [facility] Comment on above: Result Comment: PERF ORMED BY: [place] [address] PATHOLOGIST ACCESSIBILITY LIFT TECHNICIAN KAYLIN ARDON M.D. Performed By: #### L IPID, CBC, HS TROP, BMP #### [address] Triglyceride [Mass/volume] i n Serum or PlasmaOrdered By: Reji Frausto on 10-28-2023 Triglyceride [Mass/Vol] 103 mg/dL 0-149 [facility] Comment on above: TRIG ATP III CLASSIF ICATIONTRIG less than 150 mg/dL NormalTRIG 150-199 mg/dL Borderline highTRIG 200-500 mg/dL High TRIG greater than 500 mg/dL Very highStandard traceable to the Center for Disease Conrtrol and Prevention (CDC) test method. Troponin I High Sensitivityo n 10-28-2023 Troponin I High Sensitivity 25277.4 pg/mL Off scale high 0.0-15.0 [facility] Comment on above: Result Comment: Crit ical Result : Called to and read back by: ELLA SCOTT at: 10/28/2023 05:06:20 by:[id number] PERFORMED BY: [place] [id number] PATHOLOGIST ACCESSIBILITY LIFT TECHNICIAN KAYLIN ARDON M.D. Performed By: #### L IPID, CBC, HS TROP, BMP #### [facility] [address] [place] [address] Troponin I High Sensitivity 21247.0 pg/mL Off scale high 0.0-15.0 [facility] Comment on above: Result Comment: Crit ical Result : Called to and read back by: ELLA SCOTT at: 10/28/2023 02:47:34 by:[id number] PERFORMED BY: [place] [id number] PATHOLOGIST ACCESSIBILITY LIFT TECHNICIAN KAYLIN ARDON M.D. Performed By: #### H S TROP #### [address] Troponin I.cardiac [Mass/vol ume] in Serum or Plasma by Detection limit <= 0.01 ng/Ordered By: Reji Frausto on 10-28-2023 Troponin I.cardiac DL <= 0.01 ng/mL [Mass/Vol] 24218.4 pg/mL High 0.0-15.0 [facility] Comment on above: Critical Result : Ca lled to and read back by: ELLA SCOTT at: 10/28/2023 05:06:20 by:[id number] Activated partial thrombopla stin time (aPTT) in platelet poor plasma by coagulation aOrdered By: Doe Álvarez on 10-27-2023 aPTT Coag (PPP) [Time] 23.1 s Low 25.1-36.5 [facility] Comment on above: A hematocrit value g reater than 55% may lead to inaccurate results in coagulation testing. Patients having hematocrit values >55% require a special collection tube for coagulation studies. Please contact the laboratory at [phone] for redraw instructions. Alanine aminotransferase [En zymatic activity/volume] in Serum or PlasmaOrdered By: Doe Álvarez on 10-27-2023 ALT [Catalytic activity/Vol] 36 U/L Normal 7-52 [facility] Comment on above: Performed By: #### L IPID, CBC, HS TROP, BMP #### [facility] [address] [place] [address] [place] Albumin [Mass/volume] in Ser um or Plasma by Bromocresol green (BCG) dye binding methoOrdered By: Doe Álvarez on 10-27-2023 Albumin BCG dye [Mass/Vol] 4.4 g/dL 3.5-5.7 [facility] Alkaline phosphatase [Enzyma tic activity/volume] in Serum or PlasmaOrdered By: Doe Álvarez on 10-27-2023 ALP [Catalytic activity/Vol] 86 U/L Normal 34-104 [facility] Comment on above: Performed By: #### L IPID, CBC, HS TROP, BMP #### [facility] [address] [place] [address] [place] Aspartate aminotransferase [ Enzymatic activity/volume] in Serum or PlasmaOrdered By: Doe Álvarez on 10-27-2023 AST [Catalytic activity/Vol] 60 U/L High 13-39 [facility] Comment on above: Performed By: #### L IPID, CBC, HS TROP, BMP #### [facility] [address] [place] [address] [place] Automated basophil %Ordered By: Doe Álvarez on 10-27-2023 Basophils/100 WBC (Bld) 1.3 % Normal . [facility] Comment on above: Performed By: #### L IPID, CBC, HS TROP, BMP #### [facility] [address] [place] [address] [place] Automated basophil countOrde red By: Doe Álvarez on 10-27-2023 Basophils (Bld) [#/Vol] 0.1 10*3/uL Normal 0.0-0.2 [facility] Comment on above: Result Comment: PERF ORMED BY: [place] [address] PATHOLOGIST ACCESSIBILITY LIFT TECHNICIAN KAYLIN ARDON M.D. Performed By: #### L IPID, CBC, HS TROP, BMP #### [address] Automated blood monocyte cou ntOrdered By: Doe Álvarez on 10-27-2023 Monocytes (Bld) [#/Vol] 0.7 10*3/uL Normal 0.0-0.8 [facility] Comment on above: Performed By: #### L IPID, CBC, HS TROP, BMP #### [address] Automated eosinophil %Ordere d By: Doe Álvarez on 10-27-2023 Eosinophils/100 WBC (Bld) 0.7 % Normal . [facility] Comment on above: Performed By: #### L IPID, CBC, HS TROP, BMP #### [address] Automated eosinophil countOr dered By: Doe Álvarez on 10-27-2023 Eosinophils (Bld) [#/Vol] 0.1 10*3/uL Normal 0.0-0.45 [facility] Comment on above: Performed By: #### L IPID, CBC, HS TROP, BMP #### [address] Automated monocyte %Ordered By: Doe Álvarez on 10-27-2023 Monocytes/100 WBC (Bld) 8.7 % Normal . [facility] Comment on above: Performed By: #### L IPID, CBC, HS TROP, BMP #### [address] Automated neutrophil %Ordere d By: Doe Álvarez on 10-27-2023 Neutrophils/100 WBC (Bld) 63.6 % Normal . [facility] Comment on above: Performed By: #### L IPID, CBC, HS TROP, BMP #### [facility] [address] [place] [address] BNP ser/plasOrdered By: Nasreen Álvarez on 10-27-2023 Natriuretic peptide B (Bld) [Mass/Vol] 124.0 pg/mL High 5-100 [facility] Comment on above: Result Comment: PERF ORMED BY: [place] [address] PATHOLOGIST ACCESSIBILITY LIFT TECHNICIAN KAYLIN ARDON M.D. Performed By: #### L IPID, CBC, HS TROP, BMP #### [address] Bilirubin.total [Mass/volume ] in Serum or PlasmaOrdered By: Doe Álvarez on 10-27-2023 Bilirubin [Mass/Vol] 0.7 mg/dL Normal 0.3-1.0 [facility] Comment on above: Performed By: #### L IPID, CBC, HS TROP, BMP #### [facility] [address] [place] [address] Calcium [Mass/volume] in Ser um or PlasmaOrdered By: Doe Álvarez on 10-27-2023 Calcium [Mass/Vol] 10.0 mg/dL Normal 8.6-10.3 [facility] Comment on above: Performed By: #### L IPID, CBC, HS TROP, BMP #### [facility] [address] [place] [address] Carbon dioxide, total [Moles /volume] in Serum or PlasmaOrdered By: Doe Álvarez on 10-27-2023 CO2 [Moles/Vol] 21.0 mmol/L Normal 21.0-31.0 [facility] Comment on above: Performed By: #### L IPID, CBC, HS TROP, BMP #### [facility] [address] [place] [address] [place] Chloride [Moles/volume] in S carolyne or PlasmaOrdered By: Doe Álvarez on 10-27-2023 Chloride [Moles/Vol] 107 mmol/L Normal 98-107 [facility] Comment on above: Performed By: #### L IPID, CBC, HS TROP, BMP #### [address] Complete Blood Count Auto Di ffon 10-27-2023 Mean Corpuscular HGB Conc 34.1 g/dL Normal 32.0-35.0 [facility] Comment on above: Performed By: #### L IPID, CBC, HS TROP, BMP #### [address] Monocytes/100 WBC (Bld) 20.20 % High 0.00-20.00 [facility] Comment on above: Result Comment: For adults in ED, MDW > 20.0 may be associated with a higher risk of sepsis during the first 12 hrs of hospital admission Performed By: #### L IPID, CBC, HS TROP, BMP #### [address] NRBC% 0.1 /100{WBC} Normal 0-0.5 [facility] Comment on above: Performed By: #### L IPID, CBC, HS TROP, BMP #### [address] Comprehensive Metabolic Pane marianela 10-27-2023 Albumin [Mass/Vol] 4.4 g/dL Normal 3.5-5.7 [facility] Comment on above: Performed By: #### L IPID, CBC, HS TROP, BMP #### [address] Creatinine Clr Calc Pharmacy 35.04 Normal [facility] Comment on above: Result Comment: PERF ORMED BY: [place] [address] PATHOLOGIST ACCESSIBILITY LIFT TECHNICIAN KAYLIN ARDON M.D. Performed By: #### L IPID, CBC, HS TROP, BMP #### [address] GFR/1.73 sq M.predicted MDRD (S/P/Bld) [Vol rate/Area] 52.124 mL/min/{1.73_m2} Normal [facility] Comment on above: Performed By: #### L IPID, CBC, HS TROP, BMP #### [facility] [address] [place] [address] [place] Creatine kinase [Enzymatic a ctivity/volume] in Serum or PlasmaOrdered By: Doe Álvarez on 10-27-2023 CK [Catalytic activity/Vol] 74 U/L Normal 30-223 [facility] Comment on above: Performed By: #### L IPID, CBC, HS TROP, BMP #### [facility] [address] Creatinine [Mass/volume] in Serum or PlasmaOrdered By: Doe Álvarez on 10-27-2023 Creatinine [Mass/Vol] 1.06 mg/dL Normal 0.60-1.20 [facility] Comment on above: Performed By: #### L IPID, CBC, HS TROP, BMP #### [facility] [address] ECG 12 lead ECGon 10-27-2023 ECG 12 lead ECG [facility] Main [place] [address] [place] [address] Electrocardiograph Report Signed Patient: Genny Barboza MR#: [id number] : 1940 Acct:[id number] Age/Sex: 83 / F ADM Date: 10/27/23 Loc: Room: [address] [place] [address] Type: DIS IN Attending Dr: Reji Frausto DO Ordering Provider: Reji Frausto DO Date of Service: 10/27/2307/17/1831 ECG/ECG 12 lead ECG: Post Angioplasty Procedure Copies to: Test Reason : Blood Pressure : */* mmHG Vent. Rate : 75 BPM Atrial Rate : 75 BPM P-R Int : 138 ms QRS Dur : 96 ms QT Int : 400 ms P-R-T Axes : 55 -65 -26 degrees QTcB Int : 446 ms Normal sinus rhythm Left axis deviation Incomplete right bundle branch block Abnormal ECG Confirmed by Marilou Wilhelm ([id number]) on 10/29/2023 6:32:57 PM Referred By: Electronically Signed By: Marilou Wilhelm Transcribed By: MUS Signed By Marilou Wilhelm DO 1831 Normal [facility] ECG 12 lead ECG [facility] Main [place] [address] [place] [address] Electrocardiograph Report Signed Patient: Genny Barboza MR#: [id number] : 1940 Acct:[id number] Age/Sex: 83 / F ADM Date: 10/27/23 Loc: Room: [address] [place] [address] Type: ADM IN Attending Dr: Reji Frausto DO Ordering Provider: Doe Álvarez PA-C Date of Service: 10/27/2307/16/1712 ECG/ECG 12 lead ECG: Chest Pain Copies to: Test Reason : Blood Pressure : */* mmHG Vent. Rate : 52 BPM Atrial Rate : 52 BPM P-R Int : 126 ms QRS Dur : 94 ms QT Int : 426 ms P-R-T Axes : -25 45 99 degrees QTcB Int : 396 ms Sinus bradycardia RSR' or QR pattern in V1 suggests right ventricular conduction delay ST elevation, consider inferolateral injury or acute infarct ACUTE HI / STEMI Consider right ventricular involvement in acute inferior infarct Abnormal ECG No previous ECGs available Confirmed by ANAYELI DAVE MD ([id number]) on 10/27/2023 7:16:42 PM Referred By: Electronically Signed By: ANAYELI DAVE MD Transcribed By: MUS Signed By Anayeli Dave MD 10/27/23 191 Normal [facility] Erythrocyte distribution wid th [Ratio] by Automated countOrdered By: Doe Álvarez on 10-27-2023 Erythrocyte distribution width (RBC) [Ratio] 14.0 % Normal 11.9-15.3 [facility] Comment on above: Performed By: #### L IPID, CBC, HS TROP, BMP #### [facility] [address] [place] [address] [place] Erythrocytes [#/volume] in B lood by Automated countOrdered By: Doe Álvarez on 10-27-2023 RBC (Bld) [#/Vol] 4.45 10*6/uL Normal 3.60-5.00 [facility] Comment on above: Performed By: #### L IPID, CBC, HS TROP, BMP #### [facility] [address] Glucose [Mass/volume] in Ser um or PlasmaOrdered By: Doe Álvarez on 10-27-2023 Glucose [Mass/Vol] 166 mg/dL High 70-100 [facility] Comment on above: ADA recommended refe rence rangeRandom Glucose Reference Range is dependent on time and content of last meal. Glucose of more than 200 mg/dL in a nonstressed, ambulatory subject supports the diagnosis of Diabetes Mellitus. Result Comment: [place] om Glucose Reference Range is dependent on time and content of last meal. Glucose of more than 200 mg/dL in a nonstressed, ambulatory subject supports the diagnosis of Diabetes Mellitus. ADA recommended reference range Performed By: #### L IPID, CBC, HS TROP, BMP #### [facility] [address] [place] [address] Hematocrit [Volume Fraction] of Blood by Automated countOrdered By: Doe Álvarez on 10-27-2023 Hematocrit (Bld) [Volume fraction] 42.6 % Normal 34.0-46.4 [facility] Comment on above: Performed By: #### L IPID, CBC, HS TROP, BMP #### [facility] [address] [place] [address] Hemoglobin [Mass/volume] in BloodOrdered By: Doe Álvarez on 10-27-2023 Hemoglobin (Bld) [Mass/Vol] 14.5 g/dL Normal 11.8-15.4 [facility] Comment on above: Performed By: #### L IPID, CBC, HS TROP, BMP #### [facility] [address] [place] [address] INR in Platelet poor plasma by Coagulation assayOrdered By: Doe Álvarez on 10-27-2023 INR Coag (PPP) [Relative time] 0.9 {INR} Normal [facility] Comment on above: INR Therapeutic Rang e A) Pre- and Peroperative OAT started two weeks before surgery. NOT HIP SURGERY: 1.5 - 2.5 HIP SURGERY: 2 - 3B) Primary and secondary prevention of venous THROMBOSIS: 2 - 3C) Active venous thrombosis, pulmonary embolismand prevention of recurrent venous thrombosis: 2 - 3D) Prevention of arterial thromboembolismincluding patients with mechanical heart valves: 3 - 4.5 Result Comment: INR Therapeutic Range A) Pre- and Peroperative OAT started two weeks before surgery. NOT HIP SURGERY: 1.5 - 2.5 HIP SURGERY: 2 - 3 B) Primary and secondary prevention of venous THROMBOSIS: 2 - 3 C) Active venous thrombosis, pulmonary embolism and prevention of recurrent venous thrombosis: 2 - 3 D) Prevention of arterial thromboembolism including patients with mechanical heart valves: 3 - 4.5 Performed By: #### L IPID, CBC, HS TROP, BMP #### [facility] [address] [place] [id number] [place] Leukocytes [#/volume] correc kristi for nucleated erythrocytes in Blood by Automated counOrdered By: Doe Álvarez on 10-27-2023 WBC corrected for nucl RBC Auto (Bld) [#/Vol] 8.6 10*3/uL 3.8-11.6 [facility] Leukocytes [#/volume] in Blo od by Automated countOrdered By: Doe Álvarez on 10-27-2023 WBC (Bld) [#/Vol] 8.6 10*3/uL Normal 3.8-11.6 [facility] Comment on above: Performed By: #### L IPID, CBC, HS TROP, BMP #### [facility] [address] [place] [address] [place] Lymphocytes [#/volume] in Bl ood by Automated countOrdered By: Doe Álvarez on 10-27-2023 Lymphocytes (Bld) [#/Vol] 2.2 10*3/uL Normal 1.00-4.8 [facility] Comment on above: Performed By: #### L IPID, CBC, HS TROP, BMP #### [facility] [address] [place] [id number] [place] Lymphocytes/100 leukocytes i n Blood by Automated countOrdered By: Doe Álvarez on 10-27-2023 Lymphocytes/100 WBC (Bld) 25.7 % Normal . [facility] Comment on above: Performed By: #### L IPID, CBC, HS TROP, BMP #### [facility] [address] [place] [id number] [place] MCH [Entitic mass] by Automa kristi countOrdered By: Doe Álvarez on 10-27-2023 MCH (RBC) [Entitic mass] 32.6 pg Normal 24.7-34.3 [facility] Comment on above: Performed By: #### L IPID, CBC, HS TROP, BMP #### [facility] [address] [place] [address] MCHC Auto (RBC) [Mass/Vol]Or dered By: Doe Álvarez on 10-27-2023 MCHC (RBC) [Mass/Vol] 34.1 g/dL 32.0-35.0 [facility] MCV [Entitic volume] by Auto mated countOrdered By: Doe Álvarez on 10-27-2023 MCV (RBC) [Entitic vol] 95.7 fL Normal 80-100 [facility] Comment on above: Performed By: #### L IPID, CBC, HS TROP, BMP #### [facility] [address] [place] [address] Monocyte distribution width [Entitic volume] in Blood by AutomatedOrdered By: Doe Álvarez on 10-27-2023 Monocyte distribution width Auto (Bld) [Entitic vol] 20.20 % High 0.00-20.00 [facility] Comment on above: For adults in ED, MD W > 20.0 may be associated with a higher risk of sepsis during the first 12 hrs of hospital admission Neutrophils [#/volume] in Bl ood by Automated countOrdered By: Doe Álvarez on 10-27-2023 Neutrophils (Bld) [#/Vol] 5.5 10*3/uL Normal 1.8-7.7 [facility] Comment on above: Performed By: #### L IPID, CBC, HS TROP, BMP #### [facility] [address] [place] [address] No Panel InformationOrdered By: Doe Álvarez on 10-27-2023 Estimated GFR (CKD-EPI) 52.124 mL/Min [facility] Creatinine Clearance (Chem 35.04 [facility] Nucleated erythrocytes [Pres ence] in Blood by Automated countOrdered By: Doe Álvarez on 10-27-2023 Nucleated RBC Auto Ql (Bld) 0.1 /100{WBC} 0-0.5 [facility] Partial Thromboplastin Timeo n 10-27-2023 aPTT Coag (Bld) [Time] 23.1 s Low 25.1-36.5 [facility] Comment on above: Result Comment: A he matocrit value greater than 55% may lead to inaccurate results in coagulation testing. Patients having hematocrit values >55% require a special collection tube for coagulation studies. Please contact the laboratory at [phone] for redraw instructions. PERFORMED BY: [place] [address] PATHOLOGIST ACCESSIBILITY LIFT TECHNICIAN KAYLIN ARDON M.D. Performed By: #### L IPID, CBC, HS TROP, BMP #### [place] [address] [place] Platelet mean volume [Entiti c volume] in Blood by Automated countOrdered By: Doe Álvarez on 10-27-2023 Platelet mean volume (Bld) [Entitic vol] 7.7 fL Normal 6.3-10.7 [facility] Comment on above: Performed By: #### L IPID, CBC, HS TROP, BMP #### [facility] [address] [place] [address] [place] Platelets [#/volume] in Bloo d by Automated countOrdered By: Doe Álvarez on 10-27-2023 Platelets (Bld) [#/Vol] 294 10*3/uL Normal 150-450 [facility] Comment on above: Performed By: #### L IPID, CBC, HS TROP, BMP #### [facility] [address] [place] [address] [place] Potassium [Moles/volume] in Serum or PlasmaOrdered By: Doe Álvarez on 10-27-2023 Potassium [Moles/Vol] 3.7 mmol/L Normal 3.5-5.1 [facility] Comment on above: Performed By: #### L IPID, CBC, HS TROP, BMP #### [place] [address] [place] Protein [Mass/volume] in Ser um or PlasmaOrdered By: Doe Álvarez on 10-27-2023 Protein [Mass/Vol] 7.1 g/dL Normal 6.4-8.9 [facility] Comment on above: Performed By: #### L IPID, CBC, HS TROP, BMP #### [address] Prothrombin time (PT)Ordered By: Doe Álvarez on 10-27-2023 PT Coag (PPP) [Time] 10.7 s Normal 9.0-12.9 [facility] Comment on above: A hematocrit value g reater than 55% may lead to inaccurate results in coagulation testing. Patients having hematocrit values >55% require a special collection tube for coagulation studies. Please contact the laboratory at [phone] for redraw instructions. Result Comment: A he matocrit value greater than 55% may lead to inaccurate results in coagulation testing. Patients having hematocrit values >55% require a special collection tube for coagulation studies. Please contact the laboratory at [phone] for redraw instructions. Performed By: #### L IPID, CBC, HS TROP, BMP #### [address] Serum globulin measurement b y calculation (mass/volume)Ordered By: Doe Álvarez on 10-27-2023 Globulin (S) [Mass/Vol] 2.7 g/dL [facility] Comment on above: Performed By: #### L IPID, CBC, HS TROP, BMP #### [address] Serum or plasma albumin/glob ulin mass ratioOrdered By: Doe Álvarez on 10-27-2023 Albumin/Globulin [Mass ratio] 1.6 {ratio} [facility] Comment on above: Performed By: #### L IPID, CBC, HS TROP, BMP #### [address] Serum or plasma anion gap de terminationOrdered By: Doe Álvarez on 10-27-2023 Anion gap [Moles/Vol] 13.7 mmol/L Normal 6.0-15.0 [facility] Comment on above: Performed By: #### L IPID, CBC, HS TROP, BMP #### [place] [address] [place] Sodium [Moles/volume] in Ser um or PlasmaOrdered By: Doe Álvarez on 10-27-2023 Sodium [Moles/Vol] 138 mmol/L Normal 136-145 [facility] Comment on above: Performed By: #### L IPID, CBC, HS TROP, BMP #### [facility] [address] [place] [address] [place] Troponin I High Sensitivityo n 10-27-2023 Troponin I High Sensitivity 56440.9 pg/mL Off scale high 0.0-15.0 [facility] Comment on above: Order Comment: pleas e collect at 2350 Result Comment: Crit ical Result : Called to and read back by: DELIA LOZANO at: 10/28/2023 00:06:21 by:[id number] PERFORMED BY: [place] [address] PATHOLOGIST ACCESSIBILITY LIFT TECHNICIAN KAYLIN ARDON M.D. Performed By: #### L IPID, CBC, HS TROP, BMP #### [place] [address] [place] Troponin I High Sensitivity 07069.3 pg/mL Off scale high 0.0-15.0 [facility] Comment on above: Order Comment: pleas e collect at 2150 Result Comment: Crit ical Result : Called to and read back by: ELLA SCOTT at: 10/27/2023 23:27:11 by:[id number] PERFORMED BY: [place] [address] PATHOLOGIST ACCESSIBILITY LIFT TECHNICIAN KAYLIN ARDON M.D. Performed By: #### L IPID, CBC, HS TROP, BMP #### [place] [address] [place] Troponin I High Sensitivity 6295.7 pg/mL Off scale high 0.0-15.0 [facility] Comment on above: Result Comment: Crit ical Result : Called to and read back by: MONET CONNORS at: 10/27/2023 21:58:31 by:[id number] PERFORMED BY: [place] [address] PATHOLOGIST ACCESSIBILITY LIFT TECHNICIAN KAYLIN ARDON M.D. Performed By: #### L IPID, CBC, HS TROP, BMP #### [facility] [address] [place], [place] [id number] [facility] Troponin I High Sensitivity 10.2 pg/mL Normal 0.0-15.0 [facility] Comment on above: Result Comment: PERF ORMED BY: [place] [address] PATHOLOGIST ACCESSIBILITY LIFT TECHNICIAN KAYLIN ARDON M.D. Performed By: #### L IPID, CBC, HS TROP, BMP #### [facility] [address] [place] [address] Troponin I.cardiac [Mass/vol ume] in Serum or Plasma by Detection limit <= 0.01 ng/Ordered By: Doe Álvarez on 10-27-2023 Troponin I.cardiac DL <= 0.01 ng/mL [Mass/Vol] 10.2 pg/mL 0.0-15.0 [facility] Urea nitrogen [Mass/volume] in Serum or PlasmaOrdered By: Doe Álvarez on 10-27-2023 Urea nitrogen [Mass/Vol] 17 mg/dL Normal 7-25 [facility] Comment on above: Performed By: #### L IPID, CBC, HS TROP, BMP #### [facility] [address] [place], [place] [id number] [facility] XR chest 1V portableon 10-26 XR chest 1V portable [facility] Main [place] [id number] XRay Report Signed Patient: Genny Barboza MR#: [id number] : 1940 Acct:[id number] Age/Sex: 83 / F ADM Date: 10/27/23 Loc: Room: Type: [facility] Attending Dr: Reji Frausto DO Copies to: FLAKITA Tavarez DO Ordering Provider: Doe Álvarez PA-C Date of Service: 10/27/23 XR/XR chest 1V portable: Chest Pain Plain film chest Single view HISTORY: Upper chest pain extending into the neck and back. COMPARISON: None FINDINGS: SUPPORT DEVICES: None POSTSURGICAL CHANGES: None HEART: Borderline cardiomegaly PULMONARY TAMELA: Hilar vascular prominence. MEDIASTINUM: Unremarkable LUNGS AND PLEURA: Mild basilar groundglass parenchymal densities. Minimal LEFT basilar pleural reaction. No pneumothorax. BONY STRUCTURES: Intact ADDITIONAL FINDINGS None XR/XR chest 1V portable IMPRESSION: Borderline cardiomegaly. Mild hilar vascular congestion and minimal basilar groundglass portable densities. May consider failure. Impression dictated by: Juan Antonio Martinez M.D.10/27/2023 5:41 PM Dictation Location: [place] [address] Transcribed By: [facility] 10/27/231740 Dictated By: Juan Antonio Martinez DO 10/27/23 173 Signed By: 10/27/231740 Normal [facility] 07-25-2023 L Specimen: [id number] Received: 07/25/23 Status: WILLIAM Whitmore Num: [id number] Spec Type: Surgical Subm Dr: Sylvester Monk MD Tissues: A Colon Biopsy (RANDOM COLON BX) Procedures: HE/2, Gross/Micro L4 Age/ Patient Sex Location Account Attending Physician Genny Barboza E 82/F [id number] Sylvester Monk MD SPEC NUM: [id number] RECD: 07/25/23 STATUS: WILLIAM WHITMORE NUM: [id number] YAMILKA: 07/25/23- SUBM DR: Sylvester Monk MD ENTERED: 07/25/[address] [facility] DR: SPEC TYPE: Surgical DEPT: S ORDERED: HE/2, Gross/Micro L4 ORDERED: HE/2, Gross/Micro L4 Pathological Diagnosis Colon, biopsies: ? No active colitis, features of microscopic (lymphocytic) colitis, collagenous colitis or other diagnostic abnormalities. Gross Description Received in formalin, labeled with the patient's name, date of and random colon BX are 3 barber mucosal tissue fragments ranging from 0.3 x 0.3 x 0.1 cm to 0.2 x 0.1 x 0.1 cm, entirely submitted in A1. Clinical history: Colon polyp history, change in bowel habits. CPT Codes 14993 Specimen: [id number] Received: 07/25/23-1016 Status: DIMITRIConnie Haim Num: [id number] Spec Type: Surgical Subm Dr: Sylvester Monk MD Tissues: A Colon Biopsy (RANDOM COLON BX) Procedures: TAMELA/Eufemia, Gross/Radhika L4 Patient: BarbozaGenny [id number] (Continued) Signed (signature on file) Kalpana Benavides MD 07/26/23 1240 Normal [facility] Capillary blood glucose cata urement by glucometer (mass/volume)Ordered By: Branden Du on 05-06-2023 Glucose [Mass/Vol] 93 mg/dL Normal [facility] Comment on above: Random Glucose Refer ence Range is dependent on time and content of last meal. Glucose of more than 200 mg/dL in a nonstressed, ambulatory subject supports the diagnosis of Diabetes Mellitus. Result Comment: [place] om Glucose Reference Range is dependent on time and content of last meal. Glucose of more than 200 mg/dL in a nonstressed, ambulatory subject supports the diagnosis of Diabetes Mellitus. PERFORMED BY: [place] [address] PATHOLOGIST ACCESSIBILITY LIFT TECHNICIAN KAYLIN ARDON M.D. Performed By: #### L IPID, CBC, HS TROP, BMP #### [address] PET tumor init tx strat sb-m ton 05-06-2023 PET tumor init tx strat sb-mt [facility] [place] [address] [place] [address] Nuclear Medicine Report Signed Patient: Genny Barboza MR#: [id number] : 1940 Acct:[id number] Age/Sex: 82 / F ADM Date: 05/06/23 Loc: Room: Type: [facility] Attending Dr: Branden Du DO Copies to: DO Reginaldo Soni Jr, DO Ordering Provider: Branden Du DO Date of Service: 05/06/23 PET/PET tumor [...] disease. Impression dictated by: Reginaldo Rivas Jr., D.OValentin05/06/2023 1:35 PM Dictation Location: [place] [address] Transcribed By: [facility] 05/06/23 1335 Dictated By: Reginaldo Rivas Jr, DO 05/06/23 1326 Signed By: 05/06/23 1335 Normal [facility] Urinalysis - DIPSTICKon 06-0 Appearance (U) clear [employer] Other Bilirubin Ql (U) Negative [employer] Other Color (U) light yellow [employer] Other Glucose Ql (U) Negative [employer] Other Hemoglobin Ql (U) Negative [employer] Other Ketones Ql (U) Negative [employer] Other Leukocyte esterase Test strip Ql (U) Negative [employer] Other Nitrite Ql (U) Negative [employer] Other pH (U) 5.0 [pH] [employer] Other Protein Ql (U) Negative [employer] Other Specific gravity (U) [Rel density] 1.005 [employer] Other Urobilinogen (U) [Mass/Vol] 0.5 mg/dL [employer] Other Urinalysis - DIPSTICK [employer] Other CBC AUTO DIFFon 05-21-2022 BASO # 0.0 103/ul Normal 0.0-0.1 [facility] Comment on above: Performed By: #### C BC #### [facility] [address] [place] [address] Dr. Arlyn Chan Basophils/100 WBC (Bld) 0.6 % Normal 0.2-2.0 [facility] Comment on above: Performed By: #### C BC #### [facility] [address] [place] [address] Dr. Arlyn Chan EO # 0.1 103/ul Normal 0.0-0.7 [facility] Comment on above: Performed By: #### C BC #### [facility] [address] [place] [address] Dr. Arlyn Chan Eosinophils/100 WBC (Bld) 1.1 % Normal 0.9-7.0 [facility] Comment on above: Performed By: #### C BC #### [facility] [address] [place] [address] Dr. Arlyn Chan Erythrocyte distribution width (RBC) [Ratio] 13.6 % Normal 11.0-15.0 [facility] Comment on above: Performed By: #### C BC #### [facility] [address] [place] [address] Dr. Arlyn Chan Hematocrit (Bld) [Volume fraction] 44.3 % Normal 36.0-48.0 [facility] Comment on above: Performed By: #### C BC #### [facility] [address] [place] [address] Dr. Arlyn Chan Hemoglobin (Bld) [Mass/Vol] 14.8 g/dL Normal 12.0-16.0 [facility] Comment on above: Performed By: #### C BC #### [facility] [address] [place] [address] Dr. Arlyn Chan IG # 0.00 10e3/ul Normal 0.00-0.03 [facility] Comment on above: Performed By: #### C BC #### [facility] [address] [place] [address] Dr. Arlyn Chan IG % 0.0 % Normal 0.0-0.5 [facility] Comment on above: Performed By: #### C BC #### [facility] [address] [place] [address] Dr. Arlyn Chan LYMPH # 1.7 103/ul Normal 1.2-3.8 [facility] Comment on above: Performed By: #### C BC #### [facility] [address] [place] [address] Dr. Arlyn Chan Lymphocytes/100 WBC (Bld) 31.1 % Normal 20.5-60.0 [facility] Comment on above: Performed By: #### C BC #### [facility] [address] [place] [address] Dr. Arlyn Chan MANUAL DIFF REQ NO Normal [facility] Comment on above: Performed By: #### C BC #### [facility] [address] [place] [address] Dr. Arlyn Chan MCH (RBC) [Entitic mass] 31.9 pg Normal 26.7-34.0 [facility] Comment on above: Performed By: #### C BC #### [facility] [address] [place] [address] Dr. Arlyn Chan MCHC (RBC) [Mass/Vol] 33.4 g/dL Normal 29.9-35.2 [facility] Comment on above: Performed By: #### C BC #### [facility] [address] [place] [address] Dr. Arlyn Chan MCV (RBC) [Entitic vol] 95.5 fL Normal 81.0-99.0 [facility] Comment on above: Performed By: #### C BC #### [facility] [address] [place] [address] Dr. Arlyn Chan MONO # 0.5 103/ul Normal 0.3-0.8 [facility] Comment on above: Performed By: #### C BC #### [facility] [address] [place] [address] Dr. Arlyn Chan Monocytes/100 WBC (Bld) 8.8 % Normal 1.7-12.0 [facility] Comment on above: Performed By: #### C BC #### [facility] [address] [place] [address] Dr. Arlyn Chan NEUT # 3.1 103/ul Normal 1.4-6.5 [facility] Comment on above: Performed By: #### C BC #### [facility] [address] [place] [address] Dr. Arlyn Chan Neutrophils/100 WBC (Bld) 58.4 % Normal 43.0-75.0 [facility] Comment on above: Performed By: #### C BC #### [facility] [address] [place] [address] Dr. Arlyn Chan Platelet mean volume (Bld) [Entitic vol] 10.0 fL Normal 9.5-13.5 [facility] Comment on above: Performed By: #### C BC #### [facility] [address] [place] [address] Dr. Arlyn Chan PLT 242 103/ul Normal 150-450 [facility] Comment on above: Performed By: #### C BC #### [facility] [address] [place] [address] Dr. Alryn Chan RBC 4.64 106/ul Normal 4.20-5.40 [facility] Comment on above: Performed By: #### C BC #### [facility] [address] [place] [address] Dr. Arlyn Chan WBC 5.4 103/ul Normal 4.0-11.0 [facility] Comment on above: Performed By: #### C BC #### [facility] [address] [place] [address] Dr. Arlyn Chan PROF CHEM 8 (BAS METB)on Anion gap [Moles/Vol] 13.9 mmol/L Normal [facility] Comment on above: Performed By: #### H STROPN, BMP #### [facility] [address] [place] [address] Dr. Arlyn Chan Calcium [Mass/Vol] 9.4 mg/dL Normal 8.5-10.1 [facility] Comment on above: Performed By: #### H STROPN, BMP #### [facility] [address] [place] [address] [address] Arlyn Chan Chloride [Moles/Vol] 105 mmol/L Normal 98-107 [facility] Comment on above: Performed By: #### H STROPN, BMP #### [facility] [address] [place] [address] [address] Arlyn Chan CO2 [Moles/Vol] 24.3 mmol/L Normal 21.0-32.0 [facility] Comment on above: Performed By: #### H STROPN, BMP #### [facility] [address] [place] [address] Dr. Arlyn Chan Creatinine [Mass/Vol] 0.76 mg/dL Normal 0.55-1.02 [facility] Comment on above: Performed By: #### H STROPN, BMP #### [facility] [address] [place] [address] [address] Arlyn Chan EGFR-AF LIBERIAN >60 Normal >=60 [facility] Comment on above: Performed By: #### H STROPN, BMP #### [facility] [address] [place] [address] Dr. Arlyn Chan EGFR-NON AF LIBERIAN >60 Normal >=60 [facility] Comment on above: Performed By: #### H STROPN, BMP #### [facility] [address] [place] [address] [address] Arlyn Chan Glucose [Mass/Vol] 96 mg/dL Normal 74-106 [facility] Comment on above: Performed By: #### H STROPN, BMP #### [facility] [address] [place] [address] [address] Arlyn Chan Potassium [Moles/Vol] 4.2 mmol/L Normal 3.5-5.1 [facility] Comment on above: Performed By: #### H STROPN, BMP #### [facility] [address] [place] [address] [address] Arlyn Chan Sodium [Moles/Vol] 139 mmol/L Normal 136-145 [facility] Comment on above: Performed By: #### H STROPN, BMP #### [facility] [address] [place] [address] [address] Arlyn Chan Urea nitrogen [Mass/Vol] 21.0 mg/dL Critically high 7.0-18.0 [facility] Comment on above: Performed By: #### H YURI, BMP #### [facility] [address] [place] [id number] Arlyn Chan Urea nitrogen/Creatinine [Mass ratio] 27.6 mg/mg Normal [facility] Comment on above: Performed By: #### H YURI, BMP #### [facility] [address] [place] [address] [address] Arlyn Chan Progress Noteson 05-21-2022 Records Analysis Manager Authentication Interface Message Text EMERGENCY TRIAGE, TREAT AND TRANSPORT (ET3) DOCUMENTATION OF TELEHEALTH VISIT Date / Time: 05/21/2022944 Name: Genny Barboza : 1940 SSN: (Not on file) EMS Agency: [facility] [x] Verbal consent obtained [...] the typically is not available at a [place] primary care physician's office. Patient declined using ambulance go to the ER, and her daughter who was present on scene will drive her the 4 minutes will take to get to the [facility]. I advised her to call 911 [...] Completed by: Sudheer Haro MD Normal [facility] [employer] TROPONIN, HIGH SENSITIVITYon 05-21-2022 HSTROP 5.9 pg/mL Normal 4.0-51.3 [facility] Comment on above: Result Comment: CUT- OFF POINTS HAVE BEEN ESTABLISHED BASED ON THE FOURTH UNIVERSAL DEFINITIONS OF MYOCARDIAL INFARCTION. THE UPPER REFERENCE LIMIT (URL) OF TROPONIN, DEFINED THE 99TH PERCENTILE OF cTnI DISTRIBUTION IN A REFERENCE POPULATION, HAS BEEN CONFIRMED THE DECISION THRESHOLD FOR HI DIAGNOSIS. Performed By: #### H STROZAID, BMP #### [facility] [address] [place] [address] [address] Arlyn Chan MG MAMM SCREEN 3D VINNY CADon 02-08-2022 MG MAMM SCREEN 3D VINNY CAD Patient: GENNY BARBOZA Exam Date: 02/08/2022 : 1940 Gender:F Ordering : DR BRANDEN DU D.O. Admission #: [id number] Family : Order #: [id number] CLICK HERE TO VIEW EXAM RADIOLOGY REPORT [...] bowel resection Family Cancers None LOCATION: [facility] BREAST COMPOSITION: Scattered areas fibroglandular density. [...] MD on 02/08/2022 at 14:06 Normal [facility] CT CHEST WO CONon 08-11-2021 CT CHEST WO CON EXAMINATION: CT CHES T WO CON HISTORY: Solitary nodule of lung [...] mass, effusion, or pneumothorax. VASCULATURE: No abnormality. TAMELA: No mass or adenopathy. MEDIASTINUM: No mass [...] by: JOAQUIN SOTO Date: 2021-08-11 17:29 Normal [facility] Vital Signs Date Time Vital Sign Value Performing Clinician Facility 12-12-2023 13:21-0400 Body height 154.94 cm PA-C Doe Álvarez Work Phone: [facility] 12-12-2023 13:21-0400 Body mass index (BMI) [Ratio] 26.6 kg/m2 PA-C Doe Álvarez Work Phone: [facility] 12-12-2023 13:21-0400 Body weight 64 kg PA-C Doe Álvarez Work Phone: [facility] 12-04-2023 15:49-0400 Body height 154.94 cm PA-C Doe Álvarez Work Phone: [facility] 12-04-2023 15:49-0400 Body mass index (BMI) [Ratio] 26.9 kg/m2 PA-C Doe Álvarez Work Phone: [facility] 12-04-2023 15:49-0400 Body weight 64.58 kg PA-C Doechanel Álvarez Work Phone: [facility] 12-04-2023 15:49-0400 Diastolic blood pressure 83 mm[Hg] PA-C Doechanel Álvarez Work Phone: [facility] 12-04-2023 15:49-0400 Heart rate 71 /min PA-C Doe Álvarez Work Phone: [facility] 12-04-2023 15:49-0400 Respiratory rate 12 /min PA-C Doe Álvarez Work Phone: [facility] 12-04-2023 15:49-0400 Systolic blood pressure 151 mm[Hg] PA-C Doe Álvarez Work Phone: [facility] 11-12-2023 11:55-0400 Body height 154.94 cm PA-C Doe Álvarez Work Phone: [facility] 11-12-2023 11:55-0400 Body mass index (BMI) [Ratio] 27.3 kg/m2 IGNACIA-Heri Álvarez Work Phone: [facility] 11-12-2023 11:55-0400 Body weight 65.48 kg IGNACIA-Heri Álvarez Work Phone: [facility] 11-12-2023 11:55-0400 Diastolic blood pressure 84 mm[Hg] IGNACIA-Heri Álvarez Work Phone: [facility] 11-12-2023 11:55-0400 Heart rate 57 /min IGNACIA-C Doe Álvarez Work Phone: [facility] 11-12-2023 11:55-0400 Respiratory rate 12 /min IGNACIA-Heri Álvarez Work Phone: [facility] 11-12-2023 11:55-0400 Systolic blood pressure 144 mm[Hg] IGNACIA-Heri Álvarez Work Phone: [facility] 11-07-2023 10:05-0400 Body height 154.9 cm Inderjit Frausto DO Work Phone: [facility] 11-07-2023 10:05-0400 Body mass index (BMI) [Ratio] 26.83 kg/m2 Inderjit Frausto DO Work Phone: [facility] 11-07-2023 10:05-0400 Body weight 64.41 kg Inderjit Frausto DO Work Phone: [facility] 11-07-2023 10:05-0400 Diastolic blood pressure 68 mm[Hg] Inderjit Frausto DO Work Phone: [facility] 11-07-2023 10:05-0400 Heart rate 82 /min Inderjit Frausto DO Work Phone: [facility] 11-07-2023 10:05-0400 Systolic blood pressure 118 mm[Hg] Inderjit Frausto DO Work Phone: [facility] 11-05-2023 11:37-0400 Diastolic blood pressure 61 mm[Hg] PA-C Doe Álvarez Work Phone: [facility] 11-05-2023 11:37-0400 Heart rate 63 /min PA-C Doe Álvarez Work Phone: [facility] 11-05-2023 11:37-0400 Respiratory rate 20 /min PA-C Doe Álvarez Work Phone: [facility] 11-05-2023 11:37-0400 SaO2% (BldA) [Mass fraction] 98 % PA-C Doe Álvarez Work Phone: [facility] 11-05-2023 11:37-0400 Systolic blood pressure 143 mm[Hg] PA-C Doe Álvarez Work Phone: [facility] 11-05-2023 09:10-0400 Body temperature 97.8 [degF] PA-C Doe Álvarez Work Phone: [facility] 11-05-2023 07:18-0400 Body height 154.94 cm PA-C Doe Álvarez Work Phone: [facility] 11-05-2023 07:18-0400 Body weight 65.77 kg PA-C Doe Álvarez Work Phone: [facility] 10-29-2023 16:00-0400 Body temperature 98.2 [degF] PA-C Doe Álvarez Work Phone: [facility] 10-29-2023 16:00-0400 Diastolic blood pressure 88 mm[Hg] PA-C Doe Álvarez Work Phone: [facility] 10-29-2023 16:00-0400 Heart rate 58 /min PA-C Deochanel Álvarez Work Phone: [facility] 10-29-2023 16:00-0400 Respiratory rate 16 /min PA-C Doe Álvarez Work Phone: [facility] 10-29-2023 16:00-0400 SaO2% (BldA) [Mass fraction] 96 % PA-C Doe Álvarez Work Phone: [facility] 10-29-2023 16:00-0400 Systolic blood pressure 140 mm[Hg] PA-C Doe Álvarez Work Phone: [facility] 10-29-2023 06:00-0400 Body weight 65.6 kg PA-C Doe Álvarez Work Phone: [facility] 10-29-2023 06:00-0400 Inhaled oxygen flow rate 2 L/min PA-C Doe Álvarez Work Phone: [facility] 10-27-2023 21:42-0400 Body height 154.94 cm PA-C Doe Álvarez Work Phone: [facility] 10-27-2023 19:05-0400 Diastolic blood pressure 64 mm[Hg] PA-C Doe Álvarez Work Phone: [facility] 10-27-2023 19:05-0400 Heart rate 75 /min PA-C Doe Álvarez Work Phone: [facility] 10-27-2023 19:05-0400 Respiratory rate 28 /min PA-C Doe Álvarez Work Phone: [facility] 10-27-2023 19:05-0400 SaO2% (BldA) [Mass fraction] 96 % PA-C Doe Álvarez Work Phone: [facility] 10-27-2023 19:05-0400 Systolic blood pressure 120 mm[Hg] PA-C Doe Álvarez Work Phone: [facility] 10-27-2023 17:31-0400 Body temperature 97.9 [degF] PA-C Doe Álvarez Work Phone: [facility] 10-27-2023 17:11-0400 Body height 154.94 cm FLAKITA Álvarez Work Phone: [facility] 10-27-2023 [id number] Body weight 66.3 kg FLAKITA Álvarez Work Phone: [facility] 06-20-2023 14:32-0400 Body height 165.1 cm DO Branden Ball Work Phone: [facility] 06-20-2023 14:32-0400 Body mass index (BMI) [Ratio] 24.4 kg/m2 DO Branden Ball Work Phone: [facility] 06-20-2023 14:32-0400 Body weight 66.67 kg DO Branden Ball Work Phone: [facility] 06-20-2023 14:32-0400 Diastolic blood pressure 77 mm[Hg] DO Branden Ball Work Phone: [facility] 06-20-2023 14:32-0400 Heart rate 83 /min DO Branden Ball Work Phone: [facility] 06-20-2023 14:32-0400 Systolic blood pressure 150 mm[Hg] DO Branden Ball Work Phone: [facility] 06-07-2023 09:28-0400 Body height 165.1 cm DO Branden Ball Work Phone: [facility] 06-07-2023 09:28-0400 Body mass index (BMI) [Ratio] 24.6 kg/m2 DO Branden Ball Work Phone: [facility] 06-07-2023 09:28-0400 Body weight 67.18 kg DO Branden Ball Work Phone: [facility] 06-07-2023 09:28-0400 Diastolic blood pressure 87 mm[Hg] DO Branden Ball Work Phone: [facility] 06-07-2023 09:28-0400 Heart rate 77 /min DO Branden Ball Work Phone: [facility] 06-07-2023 09:28-0400 Respiratory rate 12 /min DO Branden Ball Work Phone: [facility] 06-07-2023 09:28-0400 Systolic blood pressure 146 mm[Hg] DO Branden Ball Work Phone: [facility] 05-21-2023 10:24-0500 Body height 165.1 cm DO Branden Ball Work Phone: [facility] 05-21-2023 10:24-0500 Body mass index (BMI) [Ratio] 24.3 kg/m2 DO Branden Ball Work Phone: [facility] 05-21-2023 10:24-0500 Body weight 66.22 kg DO Branden Ball Work Phone: [facility] 05-21-2023 10:24-0500 Diastolic blood pressure 81 mm[Hg] DO Branden Ball Work Phone: [facility] 05-21-2023 10:24-0500 Heart rate 71 /min DO Branden Ball Work Phone: [facility] 05-21-2023 10:24-0500 Respiratory rate 16 /min DO Branden Ball Work Phone: [facility] 05-21-2023 10:24-0500 Systolic blood pressure 131 mm[Hg] DO Branden Ball Work Phone: [facility] 04-12-2023 11:30-0500 Body height 165.1 cm Branden Ball Other [facility] 04-12-2023 11:30-0500 Body mass index (BMI) [Ratio] 24.59 kg/m2 Branden Ball Other [employer] [facility] [employer] Other 04-12-2023 11:30-0500 Body weight 67.04 kg Branden Ball Other [facility] 04-12-2023 11:30-0500 Diastolic blood pressure 75 mm[Hg] Branden Ball Other [facility] 04-12-2023 11:30-0500 Respiratory rate 12 /min Branden Ball Other [facility] [employer] Other 04-12-2023 11:30-0500 Systolic blood pressure 122 mm[Hg] Branden Ball Other [facility] 03-26-2023 11:30-0500 Body height 165.1 cm Branden Ball Other [facility] 03-26-2023 11:30-0500 Body mass index (BMI) [Ratio] 24.89 kg/m2 Branden Ball Other [facility] [employer] Other 03-26-2023 11:30-0500 Body weight 67.86 kg Branden Ball Other [facility] [employer] Other 03-26-2023 11:30-0500 Body weight 67.85 kg DO Branden Ball Work Phone: [facility] 03-26-2023 11:30-0500 Diastolic blood pressure 82 mm[Hg] Branden Ball Other [facility] 03-26-2023 11:30-0500 Respiratory rate 12 /min Branden Ball Other [facility] [employer] Other 03-26-2023 11:30-0500 Systolic blood pressure 192 mm[Hg] Branden Ball Other [facility] 02-08-2023 13:30-0500 Body height 165.1 cm Branden Ball Other [facility] 02-08-2023 13:30-0500 Body mass index (BMI) [Ratio] 24.29 kg/m2 Branden Ball Other [facility] [employer] Other 02-08-2023 13:30-0500 Body weight 66.23 kg Branden Ball Other [facility] [employer] Other 02-08-2023 13:30-0500 Body weight 66.22 kg DO Branden Ball Work Phone: [facility] 02-08-2023 13:30-0500 Diastolic blood pressure 79 mm[Hg] Branden Ball Other [facility] 02-08-2023 13:30-0500 Respiratory rate 12 /min Branden Ball Other [facility] [employer] Other 02-08-2023 13:30-0500 Systolic blood pressure 128 mm[Hg] Branden Ball Other [facility] 08-27-2022 11:15-0400 Body height 165.1 cm Branden Ball Other [employer] Other 08-27-2022 11:15-0400 Body mass index (BMI) [Ratio] 24.06 kg/m2 Branden Ball Other [employer] [facility] Other 08-27-2022 11:15-0400 Body weight 65.59 kg Branden Ball Other [employer] [facility] Other 08-27-2022 11:15-0400 Diastolic blood pressure 83 mm[Hg] Branden Ball Other [employer] [facility] Other 08-27-2022 11:15-0400 Respiratory rate 12 /min Branden Ball Other [employer] [facility] Other 08-27-2022 11:15-0400 Systolic blood pressure 152 mm[Hg] Branden Ball Other [employer] [facility] Other 07-09-2022 15:00-0400 Body height 165.1 cm Branden Ball Other [employer] [facility] Other 07-09-2022 15:00-0400 Body mass index (BMI) [Ratio] 23.23 kg/m2 Branden Ball Other [employer] [facility] Other 07-09-2022 15:00-0400 Body weight 63.32 kg Branden Ball Other [employer] [facility] Other 07-09-2022 15:00-0400 Diastolic blood pressure 72 mm[Hg] Branden Ball Other [employer] [facility] Other 07-09-2022 15:00-0400 Respiratory rate 12 /min Branden Ball Other [employer] [facility] Other 07-09-2022 15:00-0400 Systolic blood pressure 134 mm[Hg] Branden Ball Other [facility] Other 05-21-2022 15:45-0500 Body height 165.1 cm Branden Ball Other [employer] [facility] Other 05-21-2022 15:45-0500 Body mass index (BMI) [Ratio] 24.56 kg/m2 Branden Ball Other [employer] [facility] Other 05-21-2022 15:45-0500 Body weight 66.95 kg Branden Ball Other [facility] Other 05-21-2022 15:45-0500 Diastolic blood pressure 82 mm[Hg] Branden Ball Other [employer] [facility] Other 05-21-2022 15:45-0500 Respiratory rate 12 /min Branden Ball Other [employer] [facility] Other 05-21-2022 15:45-0500 Systolic blood pressure 136 mm[Hg] Branden Ball Other [employer] [facility] Other 05-21-2022 09:45-0500 Diastolic blood pressure 92 mm[Hg] Et3 [facility] 05-21-2022 09:45-0500 Heart rate 72 /min [facility] 05-21-2022 09:45-0500 Respiratory rate 18 /min Et3 [facility] 05-21-2022 09:45-0500 SaO2% (BldA) [Mass fraction] 98 % Et3 [facility] 05-21-2022 09:45-0500 Systolic blood pressure 181 mm[Hg] Et3 [facility] Encounters Encounter Date Encounter Type Care Provider Facility Start: 12-20-2023 End: 12-20-2023 ambulatory [facility] Start: 12-12-2023 End: 12-12-2023 ambulatory PA-C Doe Álvarez Work Phone: [facility] Work Phone: Start: 12-12-2023 End: 12-12-2023 Patient encounter procedure PA-Heri Álvarez Work Phone: [facility] Work Phone: Start: 12-04-2023 End: 12-04-2023 ambulatory PA-Heri Álvarez Work Phone: [facility] Work Phone: Start: 12-04-2023 End: 12-04-2023 Patient encounter procedure PA-Heri Álvarez Work Phone: [facility] Work Phone: Start: 11-12-2023 End: 11-12-2023 ambulatory PA-C Doe Álvarez Work Phone: [facility] Work Phone: Start: 11-12-2023 End: 11-12-2023 Patient encounter procedure PA-Heri Álvarez Work Phone: [facility] Work Phone: Start: 11-07-2023 End: 11-07-2023 ambulatory [facility] Start: 11-07-2023 End: 11-07-2023 Transitional care manage srvc 7 day discharge Inderjit Frausto DO Work Phone: [facility] Comment on above: Coronary artery dise ase, unspecified vessel or lesion type, unspecified whether angina present, unspecified whether [place] or transplanted heart; History of PTCA; History of ST elevation myocardial infarction (STEMI); Shortness of breath; Former smoker; BMI 26.0-26.9,adult; Hyperlipidemia, unspecified hyperlipidemia type Start: 11-05-2023 Non-patient / Non-visit FLAKITA Álvarez Work Phone: [facility] Work Phone: Start: 11-05-2023 End: 11-05-2023 Emergency department patient visit FLAKITA Álvarez Work Phone: [facility]-Emergency Room Work Phone: Start: 10-28-2023 Non-patient / Non-visit FLAKITA Álvarez Work Phone: [facility] Work Phone: Start: 10-27-2023 End: 10-29-2023 Evaluation and management of inpatient FLAKITA Álvarez Work Phone: [facility] Work Phone: Start: 07-25-2023 End: 07-25-2023 ambulatory Sylvester Monk Facility:[facility] Start: 06-20-2023 End: 06-20-2023 ambulatory DO Branden Du Work Phone: [facility] Work Phone: Start: 06-20-2023 End: 06-20-2023 Patient encounter procedure DO Branden Ball Work Phone: [facility] G[facility] Work Phone: Start: 06-07-2023 End: 06-07-2023 ambulatory DO Branden Ball Work Phone: [facility] Work Phone: Start: 06-07-2023 End: 06-07-2023 Patient encounter procedure DO Branden Ball Work Phone: [facility] Work Phone: Start: 05-21-2023 End: 05-21-2023 Patient encounter procedure DO Branden Ball Work Phone: [facility] Work Phone: Start: 05-06-2023 End: 05-06-2023 Patient encounter procedure DO Branden Ball Work Phone: [facility] Work Phone: Start: 05-06-2023 End: 05-06-2023 ambulatory DO Branden Ball Work Phone: [facility] Work Phone: Start: 04-24-2023 End: 04-24-2023 ambulatory ELENA HASSAN Not Available Start: 04-23-2023 End: 04-23-2023 ambulatory Branden Du Other [facility] Other Start: 04-23-2023 Telephone encounter Branden Ball [facility] Start: 04-22-2023 End: 04-22-2023 ambulatory Branden Ball Other [facility] Other Start: 04-22-2023 Telephone encounter Branden Ball [facility] Start: 04-17-2023 End: 04-17-2023 ambulatory Branden Ball Other [facility] Other Start: 04-17-2023 Telephone encounter Branden Ball [facility] Start: 04-12-2023 End: 04-12-2023 ambulatory Branden Ball Other [facility] Other Start: 04-12-2023 Office outpatient vi sit 15 minutes Branden Ball [facility] Start: 04-12-2023 Telephone encounter Branden Ball [facility] Start: 04-12-2023 End: 04-12-2023 Patient encounter procedure DO Branden Ball Work Phone: [facility]- Start: 04-08-2023 End: 04-08-2023 ambulatory Branden Du Other [facility] Other Start: 04-08-2023 Telephone encounter Branden Du [facility] Start: 04-01-2023 End: 04-01-2023 ambulatory Branden Du Other [facility] Other Start: 04-01-2023 Telephone encounter Branden ALAS [facility] Start: 03-27-2023 End: 03-27-2023 ambulatory Branden Du Other [facility] Other Start: 03-27-2023 Telephone encounter Branden Du [facility] Start: 03-26-2023 End: 03-26-2023 ambulatory Branden Du Other [facility] Other Start: 03-26-2023 Office outpatient vi sit 15 minutes Branden Du [facility] Start: 03-26-2023 End: 03-26-2023 Patient encounter procedure DO Branden Ball Work Phone: [facility] Work Phone: Start: 03-14-2023 End: 03-14-2023 ambulatory Branden Du Other [facility] Other Start: 03-14-2023 Telephone encounter Branden ALAS [facility] Start: 02-19-2023 End: 02-19-2023 ambulatory Branden Du Other [facility] Other Start: 02-19-2023 Telephone encounter Branden Du [facility] Start: 02-08-2023 End: 02-08-2023 ambulatory Branden Ball Other [facility] Other Start: 02-08-2023 Patient encounter procedure Branden Du [facility] Start: 02-08-2023 End: 02-08-2023 Patient encounter procedure DO Branden Du Work Phone: [facility] Work Phone: Start: 09-20-2022 End: 09-20-2022 ambulatory Branden Du Other [facility] Other Start: 09-20-2022 Telephone encounter Branden Ball [facility] Start: 08-27-2022 End: 08-27-2022 ambulatory Branden Ball Other [facility] Other Start: 08-27-2022 Office outpatient vi sit 15 minutes Branden Ball [facility] Start: 08-24-2022 End: 08-24-2022 ambulatory Branden Ball Other [facility] Other Start: 08-24-2022 Nursing evaluation o f patient and report Branden Du [facility] Start: 07-09-2022 End: 07-09-2022 ambulatory Branden [place] Other [facility] Other Start: 07-09-2022 Office outpatient vi sit 15 minutes Branden Ball [facility] Start: 06-12-2022 End: 06-12-2022 ambulatory Branden Ball Other [facility] Other Start: 06-12-2022 Telephone encounter Branden Ball [facility] Start: 06-11-2022 End: 06-11-2022 ambulatory Branden Ball Other [facility] Other Start: 06-11-2022 Telephone encounter Branden Ball [facility] Start: 05-22-2022 End: 05-22-2022 ambulatory Branden Ball Other [facility] Other Start: 05-22-2022 Telephone encounter Branden Ball [facility] Start: 05-21-2022 Office outpatient vi sit 15 minutes Branden Du [facility] Start: 05-21-2022 End: 05-23-[address] BRANDEN DU Facility:[facility] Start: 05-21-2022 End: 05-21-2022 ambulatory [facility] T[facility], Treat and Transport Start: 05-21-2022 End: 05-21-2022 Emergency department patient visit [facility] Comment on above: Arrived Start: 05-04-2022 End: 05-04-2022 ambulatory Branden Du Other [facility] Other Start: 05-04-2022 Telephone encounter Branden ALAS [facility] Start: 05-03-2022 End: 05-03-2022 ambulatory Branden Du Other [facility] Other Start: 05-03-2022 Telephone encounter Branden Du [facility] Start: 02-08-2022 End: 02-09-[address] BRANDEN DU Facility:[facility] Start: 08-11-2021 End: 08-12-[address] BRANDEN DU Facility:[facility] Procedures Date Procedure Procedure Detail Performing Clinician Start: 11-07-2023 History of percutane ous transluminal coronary angioplasty History of PTCA Inderjit Frausto DO Work Phone: Start: 11-05-2023 CT angiography of thorax FLAKITA Álvarez Work Phone: Start: 11-05-2023 Plain chest X-ray FLAKITA Álvarez Work Phone: Start: 10-27-2023 CL Closure Device Placement 0 FLAKITA Álvarez Work Phone: Start: 10-27-2023 CL LHC & COR Angio FLAKITA Álvarez Work Phone: Start: 10-27-2023 CL PCI AMI 1st Vesse l RCA SHAILA FLAKITA Álvarez Work Phone: Start: 10-27-2023 Plain chest X-ray FLAKITA Álvarez Work Phone: Start: 05-06-2023 Positron emission tomography with computed tomography DO Branden Du Work Phone: Plan of Treatment Date Care Activity Detail Author Start: 03-11-2024 End: 03-11-2024 Patient encounter procedure 03/11/2024 10:40 AM EST Office Visit [facility] [address] [place] [address] Inderjit Frausto, [address] [place] [address] [facility] Start: 11-24-2023 Influenza vaccination Influenza Vaccine (#1) [facility] Start: 10-29-2023 [facility] Start: 10-27-2023 Consultation [facility] Start: 10-27-2023 Hospital admission [facility] Start: 10-27-2023 Referral to cardiac rehabilitation program [facility] Start: 10-27-2023 [facility] Start: 10-27-2023 End: 10-27-2023 [facility] Start: 10-27-2023 Dilation of Coronary Artery, One Artery with Drug-eluting Intraluminal Device, Percutaneous Approach Dilation of Coronary Artery, One Artery with Drug-eluting Intraluminal Device, Percutaneous Approach [facility] Start: 10-27-2023 Fluoroscopy of Left Heart using Low Osmolar Contrast Fluoroscopy of Left Heart using Low Osmolar Contrast [facility] Start: 10-27-2023 Fluoroscopy of Multiple Coronary Arteries using Low Osmolar Contrast Fluoroscopy of Multiple Coronary Arteries using Low Osmolar Contrast [facility] Start: 10-27-2023 Measurement of Cardiac Sampling and Pressure, Left Heart, Percutaneous Approach Measurement of Cardiac Sampling and Pressure, Left Heart, Percutaneous Approach [facility] Start: 05-21-2023 Patient referral [facility] Work Phone: Start: 04-29-2023 COVID-19 Vaccine () COVID-19 Vaccine () [facility] Start: 10-01-2022 Influenza vaccination Influenza Vaccine (#1) [facility] Start: 2005 Pneumococcal vaccination Pneumococcal Vaccine(s) (65+ yrs) (1 - PCV) [facility] Start: 2005 Screening for osteoporosis Bone Densitometry [facility] Start: 1990 Shingles (RZV) Vaccine (1 of 2) Shingles (RZV) Vaccine (1 of 2) [facility] Start: 1962 DTaP/Tdap/Td Vaccines (1 - Tdap) DTaP/Tdap/Td Vaccines (1 - Tdap) [facility] Start: 1958 Tetanus + diphtheria + acellular pertussis vaccine (product) Tdap Booster [facility] Start: 04-24-1941 COVID-19 Vaccine (#1) COVID-19 Vaccine (#1) [facility] Start: 1940 Basic metabolic 2000 panel - Serum or Plasma Basic Metabolic Panel [facility] Start: 1940 Lipid panel Lipid Panel [facility] Start: 1940 Medicare Annual Wellness Visit Medicare Annual Wellness Visit (AWV) [facility] Start: 1940 Screening for osteoporosis Bone Density Scan [facility] MR Shoulder - right WO contrast [facility] Patient Education Coronary Angio plasty (DC) Coronary Stenting (DC) Angina (DC) Chest Pain (DC) Drug Eluting Stents Know your Meds [facility] Work Phone: Patient referral [facility] Work Phone: Immunizations Immunization Date Immunization Notes Care Provider Allie nash 12-04-2023 influenza, high dose seasonal, preservative-free FLAKITA Álvarez Work Phone: [facility] 12-27-2022 influenza virus vaccine, unspecified formulation Inderjit Frausto DO Work Phone: [facility] Work Phone: 12-13-2021 influenza virus vaccine, split virus (incl. purified surface antigen) Branden Du Other [facility] Other 12-13-2021 influenza virus vaccine, unspecified formulation DO Branden Du Work Phone: [facility] 12-14-2020 influenza virus vaccine, split virus (incl. purified surface antigen) Branden Du Other [facility] Other 12-14-2020 influenza virus vaccine, unspecified formulation DO [employer] Work Phone: [facility] 12-04-2019 influenza virus vaccine, split virus (incl. purified surface antigen) Branden Du Other [facility] Other 12-04-2019 influenza virus vaccine, unspecified formulation DO [employer] Work Phone: [facility] 12-16-2018 influenza virus vaccine, split virus (incl. purified surface antigen) Branden Du Other [facility] Other 12-16-2018 influenza virus vaccine, unspecified formulation DO [employer] Work Phone: [facility] 01-15-2018 influenza virus vaccine, split virus (incl. purified surface antigen) Branden [facility] Other [facility] Other 01-15-2018 influenza virus vaccine, unspecified formulation DO [employer] Work Phone: [facility] 01-12-2017 influenza virus vaccine, split virus (incl. purified surface antigen) Branden Du Other [facility] Other 01-12-2017 influenza virus vaccine, unspecified formulation DO [employer] Work Phone: [facility] 12-27-2015 influenza virus vaccine, split virus (incl. purified surface antigen) Branden [facility] Other [facility] Other 12-27-2015 influenza virus vaccine, unspecified formulation DO [employer] Work Phone: [facility] 01-28-2015 pneumococcal conjuga te vaccine, 13 valent Branden Du Other [facility] Payers Date Payer Category Payer Self-pay 2023 Unknown [id number] 2022 Unknown SP/UNINSURED PEN DING FINANCIAL PROGRAM EVALUATION [id number] 2022-Present [phone] [address] [place] [address] Other [id number] 2022 Unknown [id number] 2005 Medicare MEDICARE MEDICAR E PART A AND B [id number] 2005-Present [address] [place] [address] [id number] 1959 Medicare [id number] 1959 Unknown [id number] 1940 Unknown [id number] 1940 Unknown [id number] 1940 Unknown [id number] 1940 Unknown [id number] 1940 Unknown [id number] 1940 Unknown [id number] 1940 Unknown [id number] Medicare Medicare [id number] Unknown [id number] Unknown [id number] Unknown [id number] Unknown [id number] Social History Date Type Detail Facility Tobacco smoking status KYIS Tobacco smoking consumption unknown [facility] Start: 1940 Sex Assigned At Not on file [facility] Sex Assigned At [facility] Other Start: 1940 Sex Assigned At Female F [facility] Start: 06-20-2023 Tobacco smoking status KYIS Never smoked tobacco (finding) [facility] Start: 10-27-2023 End: 11-07-2023 Tobacco smoking status KYIS Ex-smoker (finding) [facility] Start: 11-05-2023 Tobacco smoking status [facility] Current some day smoker [facility] History of tobacco use Current smoker [facility] Work Phone: History of tobacco use Cigarette Smoker [facility] Work Phone: Start: 11-07-2023 Tobacco use and exposure Smokeless tobacco non-user [facility] Work Phone: Start: 11-07-2023 Alcoholic beverage intake Current drinker of alcohol (finding) [facility] Work Phone: Start: 10-28-2023 End: 11-07-2023 Exposure to SARS-CoV-2 (event) Not sure [facility] Medical Equipment Procedure Code Equipment Code Equipment Origin al Text Equipment Identifier Dates CL STENT TOMER FRONTIER 4.0 X 18 FDA Start: 10-27-2023 Femoral artery closure plug/patch, synthetic polymer [id number] FDA Start: 10-27-2023 CL STENT TOMER FRONTIER 4.0 X 18 FDA Start: 10-27-2023 CL STENT TOMER FRONTIER 4.0 X 18 FDA Start: 10-27-2023 CL STENT TOMER FRONTIER 4.0 X 18 FDA Start: 10-27-2023 CL STENT TOMER FRONTIER 4.0 X 18 FDA Start: 10-27-2023 Goals Date Patient Goal Desired Activity /State Functional Status Date Assessment Result Facility 10-29-2023 Functional status Patient at Baseline [facility] Work Phone: Mental Status Date Assessment Result Facility 10-29-2023 Cognitive function Cognitive Sta tus Patient at Baseline [facility] Work Phone: Clinical Notes 05-04-2022 to 11-07-2023 Inderjit Frausto, DO - 11/07/2023 9:40 AM EDTPatient Instructions Note Date & Type Note Facility 11-07-2023 History of Presen t illness Narrative Subjective Genny Barboza is a 83 y.o. female Chief Complaint TCM 83-year-old female here for TCM follow-up office visit following recent inferior STEMI, treated with primary PCI proximal RCA with 4 mm drug-eluting stent with preserved LV function. She has residual small vessel diagonal branch disease but otherwise normal coronaries. She is doing well. She has nocturnal dyspnea but she has no exertional shortness of breath. She had 1 ER visit for dyspnea, I was consulted over the phone in regards to this and discussed continuation of her ticagrelor is much as feasibly possible. We discussed this again today. She otherwise has no recurrent angina or discomfort, nitrate usage. Her LV function is normal We reviewed her hospitalization, revascularization, symptomatology, discussed side effects of medications and compliance with medical therapy Will consult cardiac rehab for phase 2 enrollment, follow-up in 4 to 6 months Review of Systems Respiratory: Positive for shortness of breath. Neurological: Positive for dizziness. All other systems reviewed and are negative. Vitals: 11/07/23 1005 BP: 118/68 BP Location: Right arm Patient Position: Sitting Pulse: 82 Weight: 64.4 kg (142 lb) Height: 1.549 m (5' 1 ) Objective Physical Exam Constitutional: Appearance: Normal appearance. HENT: Nose: Nose normal. Neck: Vascular: No carotid bruit. Cardiovascular: Rate and Rhythm: Normal rate. Pulses: Normal pulses. Heart sounds: Normal heart sounds. Pulmonary: Effort: Pulmonary effort is normal. Abdominal: General: Bowel sounds are normal. Palpations: Abdomen is soft. Musculoskeletal: General: Normal range of motion. Cervical back: Normal range of motion. Right lower leg: No edema. Left lower leg: No edema. Skin: General: Skin is warm and dry. Neurological: General: No focal deficit present. Mental Status: She is alert. Psychiatric: Mood and Affect: Mood normal. Behavior: Behavior normal. Thought Content: Thought content normal. Judgment: Judgment normal. Allergies Penicillins Current Medications Current Outpatient Medications: aspirin 81 mg EC tablet, Take 1 tablet (81 mg) by mouth once daily., Disp: , Rfl: atorvastatin (Lipitor) 80 mg tablet, Take 1 tablet (80 mg) by mouth once daily., Disp: , Rfl: losartan (Cozaar) 25 mg tablet, Take 1 tablet (25 mg) by mouth once daily., Disp: , Rfl: metoprolol tartrate (Lopressor) 25 mg tablet, Take 1 tablet (25 mg) by mouth 2 times a day., Disp: , Rfl: multivit with minerals/lutein (MULTIVITAMIN 50 PLUS ORAL), Take 1 tablet by mouth once daily., Disp: , Rfl: nitroglycerin (Nitrostat) 0.4 mg SL tablet, Place 1 tablet (0.4 mg) under the tongue every 5 minutes if needed for chest pain., Disp: , Rfl: omeprazole (PriLOSEC) [address] capsule, Take 1 capsule (40 mg) by mouth once daily in the morning. Take before meals., Disp: , Rfl: ticagrelor (Brilinta) 90 mg tablet, Take 1 tablet (90 mg) by mouth 2 times a day., Disp: , Rfl: Assessment/Plan 1. Coronary artery disease, unspecified vessel or lesion type, unspecified whether angina present, unspecified whether [place] or transplanted heart 2. History of PTCA 3. History of ST elevation myocardial infarction (STEMI) 4. Shortness of breath 5. Former smoker 6. BMI 26.0-26.9,adult 7. Hyperlipidemia, unspecified hyperlipidemia type Scribe Attestation By signing my name below, Kacy iRley LPN , Scribe attest that this documentation has been prepared under the direction and in the presence of Inderjit Frausto DO. Provider Attestation - Scribe documentation All medical record entries made by the Scribe were at my direction and personally dictated by me. I have reviewed the chart and agree that the record accurately reflects my personal performance of the history, physical exam, discussion and plan. documented in this encounter [facility] Work Phone: 11-07-2023 Instructions Kacy Norris LPN - 11/07/2023 9:40 AM EDT Please bring all medicines, vitamins, and herbal supplements with you when you come to the office. Prescriptions will not be filled unless you are compliant with your follow up appointments or have a follow up appointment scheduled as per instruction of your physician. Refills should be requested at the time of your visit. BMI was above normal measurement. Current weight: 64.4 kg (142 lb) Weight change since last visit (-) denotes wt loss 142 lbs Weight loss needed to achieve BMI 25: 10 Lbs Weight loss needed to achieve BMI 30: -16.4 Lbs Provided instructions on dietary changes. documented in this encounter [facility] Work Phone: 10-28-2023 Consult note Note Date/Time October 28, 2023 8:5 5pm [facility] [address] [place] [address] Pulmonology Consult Note Signed Patient: Genny Barboza MR#: [id number] : 1940 Acct:[id number] Age/Sex: 83 / F Adm Date: 4 Loc: Room: [address] [place] [address] Type: ADM IN Attending Dr: Reji Frausto DO Copies to: DO Reji Soni DO Yuhann Kenneth L Lopez, MD~ HPI Date/Time of Consultation: Date of Service: 10/28/2023 Time of Service: 20:50 Consulting Provider: Sobia Okeefe Requesting Provider: Reji Frausto Reason for Consult: ICU support History of Present Illness History of present illness: Ms. Barboza is a 83 year old female admitted through the emergency room with new onset chest discomfort and found to have an inferior STEMI, emergently brought to the [facility] and found to have RCA with 99% stenosis, s/p PCI, did well was transferred to ICU without needing intubation or hemodynamic support. Currently on RA, on ASA, Brilinta, BB, statin, ROBIN. Review of Systems Constitutional Constitutional: Reports as per HPI Cardiovascular Cardiovascular: Reports as per HPI and Reports chest pain at rest [facility] Medical History Lung nodule CT: 1.7cm nodule RLL - 03/2023 PET/CT: no FDG avid nodules - 04/2023 CT: 1.9cm nodule RLL - 06/2023 Lung mass Change in bowel habits Rotator cuff arthropathy of right shoulder Tinea corporis Secondary spontaneous pneumothorax Rectovaginal fistula Pulmonary nodule Primary hypertension Nicotine dependence, cigarettes, in remission Muscle mass Lumbar spondylosis Lipoma of right lower extremity Irritable bowel syndrome without diarrhea History of small bowel obstruction Gastroesophageal reflux disease with esophagitis without hemorrhage Estrogen deficiency COVID Abdominal wall mass Surgical History Hx of cataract surgery History of hysterectomy H/O exploratory laparotomy H/O cystoscopy History of colon resection colon cancer H/O colonoscopy Family History Father Family/Other Legacy FamHx Relation: Migrated Family History Mother Social History Smoking Status: Former smoker Tobacco Type: cigarettes Substance Use Type: None Meds Medications and Allergies Allergies Penicillins Allergy (Unknown, Verified 07/25/23 06:59) Unknown Reaction Home Medications losartan 50 mg tablet 50 mg PO DAILY 05/17/23 [History Confirmed 10/27/23] multivitamin 1 tab PO DAILY 06/20/23 [History Confirmed 10/27/23] amlodipine 5 mg tablet 5 mg PO DAILY 10/27/23 [History Confirmed 10/28/23] omeprazole 40 mg capsule,delayed release 40 mg PO DAILY PRN pain 10/28/23 [History Confirmed 10/28/23] Exam Physical Exam Vital Signs: Temp Pulse Resp BP Pulse Ox O2 Del Method 98.1 F 65 21 156/77 H 98 Room Air 10/28/23 16:00 10/28/23 19:00 10/28/23 19:00 10/28/23 19:00 10/28/23 19:00 10/28/23 19:00 Const General: cooperative, healthy appearing, comfortable, no acute distress and in distress Nutritional Appearance: average body habitus Orientation: alert, awake and oriented x3 HEENT Head: normal to inspection Eyes General: appearance normal, both eyes and all related structures Neck Neck: normal visual inspection Chest Chest palpation & inspection: normal inspection of the chest Resp Effort & Inspection: normal respiratory effort Auscultation: clear to auscultation bilaterally Cardio Rate: bradycardic Rhythm: regular rhythm Heart Sounds: S1 normal, S2 normal and no murmurs Pulses: radial pulses present and femoral pulses present GI Palpation: soft Skin General: no rashes or lesions noted Neuro General: patient alert, patient awake and patient oriented x3 Cognition: normal cognition Speech: speech normal Extrem General: no clubbing, cyanosis or edema Results - Pulmonology Intake and Output I&O - Last 24 Hours: Intake & Output 10/28/23 10/28/23 10/28/23 07:59 15:59 23:59 Intake Total 240 / 240 Balance 240 / 240 Weight 151 lb 0.266 oz Labs 10/28/23 04:25 10/28/23 04:25 Assessment/Plan (1) ST elevation myocardial infarction (STEMI) of inferior wall: Plan - doing well post PCI of the RCA, cardiology managing - no current critical care needs, will follow until pt transferred out of ICU ordischarged Documented By: Sobia Okeefe MD 2049 Signed By: <Electronically signed by Sobia Okeefe MD> 10/28/232054 [facility] Work Phone: 1(678) 172-507508-05-2024 Progress note Author W Jett [facility] October 28, 2023 11:54am Note Date/Time October 28, 2023 11: 54am [facility] [address] [place], [place] [id number] Cardiology Progress Note Signed Patient: Genny Barboza MR#: [id number] : 1940 Acct:[id number] Age/Sex: 83 / F Adm Date: 4 Loc: 4C Room: 7T5349-8 Type: ADM IN Attending Dr: Reji Frausto DO Copies to: ~ Date of Service: 10/28/2023 Subjective Principal diagnosis: Inferior STEMI Interval history: Ms. Barboza is a 83 year old female admitted through the emergency room with new onset chest discomfort, ECG at 1710 revealed inferior STEMI as transmitted from ER to my electronic device. Case discussed with nurse practitioner; appropriateupstream antiplatelet and Antithrombin therapies administered under my direction, patient arrived in [employer] at 1756 and underwent primary PCI at 1810; door to device time was 60 minutes. Past medical history is noted for essential hypertension, history of lung mass, GERD There is no prior history of myocardial infarction, revascularization, stroke, thromboembolic or bleeding disorder. Patient arrives hemodynamically stable with bradycardia, she was administered atropine for bradycardia I believe in the field, ECG reveals sinus bradycardia with inferior ST elevation injury current. A total of 60 minutes nonprocedural critical care time were devoted to ER staff,[employer] staff, nursing staff, patient and family both pre and post procedurally. Interim evaluation 10/28/2023: Patient is stable, awake, alert and oriented without distress, maintaining sinus rhythm and hemodynamically stable. Echo at bedside reveals preserved left ventricular function. Right groin site is well-healed no evidence of hematoma; troponin 23,338 this morning; awaiting ECG. Patient underwent PCI of the RCA yesterday evening. Case discussed with critical care nursing, family at bedside and reviewed echo at bedside. Will continue current therapies likely will be able to discharge tomorrow. Exam Physical Exam Vital Signs: Temp Pulse Resp BP Pulse Ox O2 Del Method 97.9 F 66 24 129/58 L 95 Room Air 10/28/23 09:00 10/28/23 10:00 10/28/23 10:00 10/28/23 10:00 10/28/23 10:10/28/23 10:00 Const General: cooperative, healthy appearing, comfortable and no acute distress Nutritional Appearance: average body habitus Orientation: alert, awake and oriented x3 HEENT Head: normal to inspection Eyes General: appearance normal, both eyes and all related structures Neck Neck: normal visual inspection Chest Chest palpation & inspection: normal inspection of the chest Resp Effort & Inspection: normal respiratory effort Auscultation: clear to auscultation bilaterally Cardio Rate: bradycardic Rhythm: regular rhythm Heart Sounds: S1 normal, S2 normal and no murmurs Pulses: radial pulses present and femoral pulses present GI Palpation: soft Skin General: no rashes or lesions noted Neuro General: patient alert, patient awake and patient oriented x3 Cognition: normal cognition Speech: speech normal Extrem General: no clubbing, cyanosis or edema Objective Labs 10/28/23 04:25 10/28/23 04:25 Labs: Laboratory Results - last 24 hr 10/27/23 10/27/23 10/27/23 17:20 19:51 22:19 Corrected WBC 8.6 Uncorrected WBC Count 8.6 RBC 4.45 Hgb 14.5 Hct 42.6 MCV 95.7 MCH 32.6 MCHC 34.1 RDW 14.0 Plt Count 294 MPV 7.7 Neut % (Auto) 63.6 Lymph % (Auto) 25.7 Grimes % (Auto) 8.7 Eos % (Auto) 0.7 Baso % (Auto) 1.3 Nucleat RBC Rel Count 0.1 Neut # (Auto) 5.5 Lymph # (Auto) 2.2 Grimes # (Auto) 0.7 Eos # (Auto) 0.1 Baso # (Auto) 0.1 Monocyte Dist Width 20.20 H PT 10.7 INR 0.9 APTT 23.1 L PHA Creatinine Clear 35.04 Sodium 138 Potassium 3.7 Chloride 107 Carbon Dioxide 21.0 Anion Gap 13.7 BUN 17 Creatinine 1.06 Est GFR (CKD-EPI) 52.124 Glucose 166 H Calcium 10.0 Total Bilirubin 0.7 AST 60 H ALT 36 Alkaline Phosphatase 86 Total Creatine Kinase 74 Troponin I High Sens 10.2 6295.7 H* 56723.3 H* B-Natriuretic Peptide 124.0 H Total Protein 7.1 Albumin 4.4 Globulin 2.7 Albumin/Globulin Ratio 1.6 Triglycerides Cholesterol LDL Cholesterol, Calc VLDL Cholesterol HDL Cholesterol Cholesterol/HDL Ratio 10/27/23 10/28/23 10/28/23 23:25 01:28 04:25 Corrected WBC 8.4 Uncorrected WBC Count 8.4 RBC 3.90 Hgb 12.7 Hct 37.9 MCV 97.0 MCH 32.6 MCHC 33.5 RDW 13.7 Plt Count 254 MPV 7.7 Neut % (Auto) 68.0 Lymph % (Auto) 20.4 Grimes % (Auto) 10.2 Eos % (Auto) 0.5 Baso % (Auto) 0.9 Nucleat RBC Rel Count 0.1 Neut # (Auto) 5.7 Lymph # (Auto) 1.7 Grimes # (Auto) 0.9 H Eos # (Auto) 0.0 Baso # (Auto) 0.1 Monocyte Dist Width PT INR APTT PHA Creatinine Clear 44.36 Sodium 135 L Potassium 4.0 Chloride 112 H Carbon Dioxide 20.7 L Anion Gap 6.3 BUN 17 Creatinine 0.85 Est GFR (CKD-EPI) > 60.0 Glucose 104 H Calcium 9.3 Total Bilirubin AST ALT Alkaline Phosphatase Total Creatine Kinase Troponin I High Sens 12732.9 H* 00770.0 H* 62650.4 H* B-Natriuretic Peptide Total Protein Albumin Globulin Albumin/Globulin Ratio Triglycerides 103 Cholesterol 241 H LDL Cholesterol, Calc 108 H VLDL Cholesterol 20 HDL Cholesterol 112 H Cholesterol/HDL Ratio 2.2 A&P - Cardiology (1) ST elevation myocardial infarction (STEMI) of inferior wall: Code(s): I21.19 - ST elevation (STEMI) myocardial infarction involving other coronary artery of inferior wall Plan Continue observation in ICU, tentative discharge tomorrow Time spent with patient Time Spent With Patient (min): 30 Documented By: Reji Frausto DO 10/28/23 1150 Signed By: <Electronically signed by Reji Frausto DO> 10/28/23 1154 [facility] Work Phone: 1(325) 574-196308-04-2024 History and physical note Author Reji Frausto [facility] October 27, 2023 6:21pm Note Date/Time October 27, 2023 5:5 1pm [facility] [address] [place] [address] Cardiology H&P Signed Patient: Genny Barboza MR#: [id number] : 1940 Acct:[id number] Age/Sex: 83 / F Adm Date: 4 Loc: CL Room: Type: [facility] Attending Dr: Reji Frausto DO Copies to: DO Reji Soni DO~ Date of Service: 10/27/2023 Cardiology HPI History of Present Illness Chief complaint: Inferior STEMI HPI: Ms. Barboza is a 83 year old female admitted through the emergency room with new onset chest discomfort, ECG at 1710 revealed inferior STEMI as transmitted from ER to my electronic device. Case discussed with nurse practitioner; appropriateupstream antiplatelet and Antithrombin therapies administered under my direction, patient arrived in [employer] at 1756 and underwent primary PCI at 1810; door to device time was 60 minutes. Past medical history is noted for essential hypertension, history of lung mass, GERD There is no prior history of myocardial infarction, revascularization, stroke, thromboembolic or bleeding disorder. Patient arrives hemodynamically stable with bradycardia, she was administered atropine for bradycardia I believe in the field, ECG reveals sinus bradycardia with inferior ST elevation injury current. A total of 60 minutes nonprocedural critical care time were devoted to ER staff,[employer] staff, nursing staff, patient and family both pre and post procedurally. Review of Systems Review of Systems All other systems reviewed & are negative unless noted below or in HPI Constitutional Constitutional: Reports as per HPI Cardiovascular Cardiovascular: Reports as per HPI and Reports chest pain at rest [facility] Medical History Lung nodule CT: 1.7cm nodule RLL - 03/2023 PET/CT: no FDG avid nodules - 04/2023 CT: 1.9cm nodule RLL - 06/2023 Lung mass Change in bowel habits Rotator cuff arthropathy of right shoulder Tinea corporis Secondary spontaneous pneumothorax Rectovaginal fistula Pulmonary nodule Primary hypertension Nicotine dependence, cigarettes, in remission Muscle mass Lumbar spondylosis Lipoma of right lower extremity Irritable bowel syndrome without diarrhea History of small bowel obstruction Gastroesophageal reflux disease with esophagitis without hemorrhage Estrogen deficiency COVID Abdominal wall mass Surgical History Hx of cataract surgery History of hysterectomy H/O exploratory laparotomy H/O cystoscopy History of colon resection colon cancer H/O colonoscopy Family History Father Family/Other Legacy FamHx Relation: Migrated Family History Mother Social History Smoking Status: Former smoker Tobacco Type: cigarettes Substance Use Type: None Meds Medications and Allergies Allergies Penicillins Allergy (Unknown, Verified 07/25/23 06:59) Unknown Reaction Home Medications losartan 50 mg tablet 50 mg PO DAILY 05/17/23 [History Confirmed 07/24/23] multivitamin 1 tab PO DAILY 06/20/23 [History Confirmed 07/24/23] Clenpiq 10 mg-3.5 gram-12 gram/175 mL oral solution (sod picosulf-mag ox-citric ac) 175 ml PO DAILY Bowel Prep 2 doses #350 mL 07/05/23 [Rx] omeprazole 40 mg capsule,delayed release See Rx Instructions .Route .COMPLEX #30 ea 10/07/23 [Rx] Exam Physical Exam Vital Signs: Temp Pulse Resp BP Pulse Ox O2 Del Method 97.9 F 51 L 18 116/66 99 Room Air 10/27/23 17:31 10/27/23 17:31 10/27/23 17:31 10/27/23 17:31 10/27/23 17:31 10/27/23 17:31 Const General: cooperative and in distress Nutritional Appearance: average body habitus Orientation: alert, awake and oriented x3 HEENT Head: normal to inspection Eyes General: appearance normal, both eyes and all related structures Neck Neck: normal visual inspection Chest Chest palpation & inspection: normal inspection of the chest Resp Effort & Inspection: normal respiratory effort Auscultation: clear to auscultation bilaterally Cardio Rate: bradycardic Rhythm: regular rhythm Heart Sounds: S1 normal, S2 normal and no murmurs Pulses: radial pulses present and femoral pulses present GI Palpation: soft Skin General: no rashes or lesions noted Neuro General: patient alert, patient awake and patient oriented x3 Cognition: normal cognition Speech: speech normal Extrem General: no clubbing, cyanosis or edema Results - Cardiology Labs 10/27/23 17:20 10/27/23 17:20 Lab results: Cardiac Enzymes 10/27/23 Range/Units 17:20 AST 60 H (13-39) U/L Total Creatine Kinase 74 (30-223) U/L CBC 10/27/23 Range/Units 17:20 RBC 4.45 (3.60-5.00) X10E6/uL Hgb 14.5 (11.8-15.4) g/dL Hct 42.6 (34.0-46.4) % Plt Count 294 (150-450) x10E3/uL Neut # (Auto) 5.5 (1.8-7.7) x10E3/uL Lymph # (Auto) 2.2 (1.00-4.8) x10E3/uL Grimes # (Auto) 0.7 (0.0-0.8) x10E3/uL Eos # (Auto) 0.1 (0.0-0.45) x10E3/uL Baso # (Auto) 0.1 (0.0-0.2) x10E3/uL Comprehensive Metabolic Panel 10/27/23 Range/Units 17:20 Sodium 138 (136-145) mmol/L Potassium 3.7 (3.5-5.1) mmol/L Chloride 107 (98-107) mmol/L Carbon Dioxide 21.0 (21.0-31.0) mmol/L BUN 17 (7-25) mg/dL Creatinine 1.06 (0.60-1.20) mg/dL Glucose 166 H (70-100) mg/dL Calcium 10.0 (8.6-10.3) mg/dL AST 60 H (13-39) U/L ALT 36 (7-52) U/L Alkaline Phosphatase 86 (34-104) U/L Total Protein 7.1 (6.4-8.9) gm/dL Albumin 4.4 (3.5-5.7) gm/dL Intake and Output 10/27/23 10/27/23 10/27/23 07:59 15:59 23:59 Other: Weight 66.3 kg Patient Weight 10/27/23 23:59 Weight 66.3 kg Lab 10/27/23 17:20 PT 10.7 INR 0.9 APTT 23.1 L EKG Interpretations EKG EKG results cardiology: sinus rhythm EKG shows: bradycardia HI, pacemaker, normal Myocardial infarction: inferior HI (acute or recent) A&P - Cardiology (1) ST elevation myocardial infarction (STEMI) of inferior wall: Code(s): I21.19 - ST elevation (STEMI) myocardial infarction involving other coronary artery of inferior wall Plan Proceed with emergency cath and PCI Documented By: Reji Frausto DO 10/27/23 081 Signed By: <Electronically signed by Reji Frausto DO> 10/27/23 4545 [facility] Work Phone: 1(102) 330-744608-04-2024 [facility] [place] Procedure note [facility]01-30-2024 Evaluation note* Encounter Date Diagnosis Assessment Notes Treatment Notes Treatment Clinical Notes Mar, Primary hypertension (ICD-10 - I10) [facility] Other 01-29-2024 Evaluation note* Encounter Date Diagnosis Assessment Notes Treatment Notes Treatment Clinical Notes Mar, Lung nodule (ICD-10 - R91.1) [facility] Other 01-24-2024 Evaluation note* Encounter Date Diagnosis Assessment Notes Treatment Notes Treatment Clinical Notes Mar, Lung mass (ICD-10 - R91.8) [facility] Other 01-19-2024 Evaluation note* Encounter Date Diagnosis Assessment Notes Treatment Notes Treatment Clinical Notes Mar, Fall, initial encounter (ICD-10 - W19.XXXA) She denies CP, DASILVA, palpitations or lightheadedness Tripped over her shoe laces Fall precautions Mar, Right arm pain (ICD-10 - M79.601) Not sure how she landed. Ice, heat Mar, Contusion of right upper extremity, initial encounter (ICD-10 - S40.021A) [facility] Other 01-15-2024 Evaluation note* Encounter Date Diagnosis Assessment Notes Treatment Notes Treatment Clinical Notes Mar, Left lower quadrant abdominal pain (ICD-10 - R10.32) Mar, Diarrhea, unspecified type (ICD-10 - R19.7) [facility] Other 01-08-2024 Evaluation note* Encounter Date Diagnosis Assessment Notes Treatment Notes Treatment Clinical Notes Mar, Irritable bowel syndrome without diarrhea (ICD-10 - K58.9) [facility] Other 01-02-2024 Evaluation note* Encounter Date Diagnosis [...] would refer for colonoscopy to exclude colitis [facility] Other 12-21-2023 Evaluation note* Encounter Date Diagnosis Assessment Notes Treatment Notes Treatment Clinical Notes Feb, Gastroesophageal ref lux disease with esophagitis without hemorrhage (ICD-10 - K21.00) [facility] Other 11-28-2023 Evaluation note* Encounter Date Diagnosis Assessment Notes Treatment Notes Treatment Clinical Notes Jan, Dysuria (ICD-10 - R30.0) [facility] Other 11-17-2023 Evaluation note* Encounter Date Diagnosis [...] patient on monthly SBE and yearly mammograms. [facility] Other 06-29-2023 Evaluation note* Encounter Date Diagnosis Assessment Notes Treatment Notes Treatment Clinical Notes Aug, Primary hypertension (ICD-10 - I10) [facility] Other 06-05-2023 Evaluation note* Encounter Date Diagnosis [...] best 2/3 readings w/ goal < 135-85 [facility] Other 06-02-2023 Evaluation note* Encounter Date Diagnosis Assessment Notes Treatment Notes Treatment Clinical Notes 02 Rodolfo, 2023 Dysuria (ICD-10 - R30.0) [facility] Other 04-17-2023 Evaluation note* Encounter Date Diagnosis Assessment Notes Treatment Notes Treatment Clinical Notes Jun, Primary hypertension (ICD-10 - I10) This patient is instructed to consume a healthy, low-fat, low-salt diet. They are also encouraged to continue exercise to achieve/maintain a normal BMI. Jun, Nicotine dependence, cigarettes, in remission (ICD-10 - F17.211) Continue abstinence [facility] Other 03-21-2023 Evaluation note* Encounter Date Diagnosis Assessment Notes Treatment Notes Treatment Clinical Notes May, Primary hypertension (ICD-10 - I10) [facility] Other 03-20-2023 Evaluation note* Encounter Date Diagnosis Assessment Notes Treatment Notes Treatment Clinical Notes May, Primary hypertension (ICD-10 - I10) [facility] Other 02-28-2023 Evaluation note* Encounter Date Diagnosis Assessment Notes Treatment Notes Treatment Clinical Notes Apr, Primary hypertension (ICD-10 - I10) [facility] Other 02-27-2023 Evaluation note* Encounter Date Diagnosis [...] - F17.211) Continue abstinence Apr, Other REo [facility] Other 02-27-2023 History of Present illness Narrative* Sudheer Haro MD - 05/21/2022 10:00 AM EST Images from the original note were not included. EMERGENCY TRIAGE, TREAT AND TRANSPORT (ET3) DOCUMENTATION OF TELEHEALTH VISIT Date / Time: 05/21/2022944 Name: Genny Barboza : 1940 SSN: (Not on file) EMS Agency: [facility] [x] Verbal consent obtained [...] the typically is not available at a [place] primary care physician's office.Patient declined using ambulance go to the ER, and her daughter who was present on scene will driveher the 4 minutes will take to get to the [facility]. I advised her to call 911 [...] by: Sudheer Haro MD documented in this [id number] Evaluation note* Encounter Date Diagnosis Assessment Notes Treatment Notes Treatment Clinical Notes Apr, Nausea (ICD-10 - R11.0) [facility] Other Discharge summary Author Reji Frausto [facility] October 29, 2023 3:50pm Note Date/Time October 29, 2023 3:4 8pm [facility] [address] [place] [address] Discharge Summary Signed Patient: Genny Barboza MR#: [id number] : 1940 Acct:[id number] Age/Sex: 83 / F Adm Date: 4 Loc: Room: [address] [place] [address]: Reji Frausto DO Copies to: DO Reji Soni, DO~ Providers Date of Discharge: 10/29/23 Discharging Provider: Reji Frausto Primary Care Provider: Branden Du Consults: 10/27/23 19:53 Consult to Pulmonology Routine Comment: stable inferior STEMI w/o pulm issues Consulting Provider: Sobia Okeefe Reason For Exam: Critical Care Management Has Provider Been Notified: Yes Date of Notification: 10/28/23 Time of Notification: 08:33 Extended Comment: Stable inferior STEMI without pulmonary issues Consult to Cardiac Rehabilitation Routine Comment: Physician Instructions: Reason for Consult: Patient Education Discharge Diagnosis (1) ST elevation myocardial infarction (STEMI) of inferior wall: Final Diagnosis Final Discharge Diagnosis: 1. Inferior STEMI 2. 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 PCI proximal RCA with 4 x 18 mm [place] stent 5. Preserved LV function 6. Essential hypertension Summary Hospital Course Hospital course: 83-year-old female presented with acute inferior ST elevation HI on Saturday, October 27, 2023 and underwent rapid revascularization of the proximal RCA with large 4 mm drug-eluting stent within 60 minutes. LV function is preserved. Sammi have small vessel diagonal branch disease that is going to be treated conservatively. She had no postoperative for post HI complications, arrhythmia,heart failure or recurrent angina. She will be discharged this afternoon, currently on aspirin 81 daily, twice daily, metoprolol 25 twice daily, losartan 25 daily, and atorvastatin 80 daily; to follow-up with cardiology for TCM visit within the next 2 weeks. Details of her follow-up, medications, prescription management, and arrangementshave been made Condition Condition at Discharge: Stable Status at Discharge Functional status at discharge: independent ambulation Overall status at discharge: patient is back to baseline Time Spent with Patient Time spent providing/coordinating discharge services (# min): 30 Surgeries and Procedures Operation Date: 10/27/23 18:00 Actual Procedures p CL Closure Device Placement 0 - W Celestino Frausto, p CL LHC & COR Angio - W Celestino Fruasto DO p CL PCI AMI 1st Vessel RCA SHAILA - W Celestino Frausto DO Complications Complications: None Discharge Plan Discharge Plan Patient Disposition: Home Diet: Low-Cholesterol Additional Instructions: DISCHARGE INSTRUCTIONS FOR ANGIOPLASTY/CORONARY/PERIPHERAL/STENT IMPLANT FOR ADULT ANTICOAGULATION -Since the greatest risk of a blood clot forming with the stent occurs in the first 2-3 weeks after implantation, you will need to take anticoagulants for at least 12-18 months. ANTICOAGULATION MEDICATION Aspirin 81mg once a day, Ticagrelor (Brilinta) 90mg twice a day STATIN MEDICATION Atorvastatin (Lipitor) 80 mg Drug-Eluting Stent (SHAILA) DO NOT discontinue Brilinta/Aspirin during the first few months regardless of what you are advised by your family doctor or pharmacist, without first calling the auto body repair technician who implanted the stent. If you require pain relief during this time, please take only ACETAMINOPHEN (TYLENOL)- NO additional aspirin or ibuprofen. DISCHARGE ACTIVITIES ARE FOLLOWS: First week after discharge: -Take it easy at home, no strenuous activity. -Do not lift or pull objects over 10-15 pounds, including children, and groceries for four weeks. If puncture site is at wrist do NOT lift more than three pounds for three days. - May walk up stairs. -May shower. -No excessive scrubbing of the affected site (groin). -May ride in car. -May resume sexual intercourse after 1-2 weeks. -No MRI for 12 days. -May drive in 4-7 days. -If puncture site is at the wrist do not manipulate the wrist for 24 hours, and no soaking wrist for three days. Second Week: -May take a bath -May start walking 3 times a week for 15-20 minutes at a leisurely pace. You should be able to carry on a conversation comfortably without feeling winded. -No strenuous activity as in jogging, running, weight lifting, stair steppers, etc. until the auto body repair technician approves these activities. Check with the auto body repair technician on your first follow-up visit. CALL YOUR SPINNING MACHINE OPERATOR: -If bleeding should occur from the catheter insertion site- apply pressure to the site then immediately call us. -Report any fever, redness, drainage, increased swelling, or firmness at the catheter insertion site. Some bruising or slight swelling may be present at thetime of discharge. -Should arm or leg become cold, numb, white, or blue, contact the auto body repair technician immediately. -IF you should experience episodes of angina, e.g. chest discomfort, heaviness, tightness, pressure burning with or without radiation to the neck, jaw, arms or back- use 1 Nitrostat tablet under your tongue every 5-10 minutes and up to three tablets. IF NO RELIEF, CALL 911 or GO TO THE NEAREST EMERGENCY ROOM. -Please notify our office if you have recurrent angina. -Cardiac Rehab Education Provided. Participation in the Cardiopulmonary Rehabilitation program is recommended. The attending auto body repair technician or a nurse clinician should provide you with specificinstructions regarding activity, diet, medications, and further follow up for you. Follow the medication instructions provided on your discharge. If the dosages and instructions on this sheet differ from the dosage and instructions on the bottle, follow the instructions on the bottle. [facility] is not responsible for incorrect prescription information provided by thepatient during their visit. Do not stop your medications without consulting your health care provider. Please take the list with you to your next doctor's appointment. Instructions: Coronary Angioplasty (DC), Coronary Stenting (DC), Angina (DC), Chest Pain (DC), Drug Eluting Stents, Know your Meds Prescriptions: New atorvastatin 80 mg Tablet 80 mg PO QPM 90 Days Qty: 90 3RF aspirin 81 mg Tablet,Delayed Release (Dr/Ec) 81 mg PO DAILY 90 Days Qty: 90 3RF nitroglycerin 0.4 mg Tablet, Sublingual 0.4 mg sublingual Q5M PRN (Reason: Chest Pain) 30 Days Qty: 25 3RF metoprolol tartrate 25 mg Tablet 25 mg PO BID 90 Days Qty: 180 3RF Brilinta 90 mg Tablet 90 mg PO BID 90 Days Qty: 180 3RF losartan 25 mg Tablet 25 mg PO QAM 30 Days Qty: 30 12RF Brilinta 90 mg tablet 90 mg PO Q12HR 30 Days Qty: 60 0RF Continued omeprazole 40 mg capsule,delayed release(DR/EC) 40 mg PO DAILY PRN (Reason: pain) multivitamin Tablet 1 tab PO DAILY Discontinued amlodipine 5 mg tablet 5 mg PO DAILY losartan 50 mg tablet 50 mg PO DAILY Other Ambulatory Orders: Initiate Home Health (Routine) Timeframe: 20231029 Location: Determined by Patient Ordered By: Reji Frausto Follow Up: Reji Frausto DO [Active Staff - D.O.] - Branden Du DO [Primary Care Provider] - 3-5 Days Exam Physical Exam Vital Signs: Temp Pulse Resp BP Pulse Ox O2 Del Method O2 Flow Rate 98.1 F 60 28 H 145/77 H 97 Room Air 2 10/29/23 12:00 10/29/23 15:00 10/29/23 15:00 10/29/23 15:00 10/29/23 15:00 10/29/23 15:00 10/29/23 06:00 Const General: cooperative, healthy appearing, comfortable and no acute distress Nutritional Appearance: average body habitus Orientation: alert, awake and oriented x3 HEENT Head: normal to inspection Eyes General: appearance normal, both eyes and all related structures Neck Neck: normal visual inspection Chest Chest palpation & inspection: normal inspection of the chest Resp Effort & Inspection: normal respiratory effort Auscultation: clear to auscultation bilaterally Cardio Rate: bradycardic Rhythm: regular rhythm Heart Sounds: S1 normal, S2 normal and no murmurs Pulses: radial pulses present and femoral pulses present GI Palpation: soft Skin General: no rashes or lesions noted Neuro General: patient alert, patient awake and patient oriented x3 Cognition: normal cognition Speech: speech normal Extrem General: no clubbing, cyanosis or edema Diagnostic Studies Completed and Pending Studies Pending studies at discharge: 10/30/23 05:00 ECG 12 lead ECG IN AM Basic Metabolic Panel [CHEM] IN AM Complete Blood Count Auto Diff IN AM 10/31/23 05:00 Basic Metabolic Panel [CHEM] IN AM Complete Blood Count Auto Diff IN AM 11/01/23 05:00 Basic Metabolic Panel [CHEM] IN AM Complete Blood Count Auto Diff IN AM Labs on day of discharge: 10/29/23 04:46: Corrected WBC 8.1, Uncorrected WBC Count 8.1, RBC 3.96, Hgb 12.9, Hct 38.2, MCV 96.5, MCH 32.7, MCHC 33.9, RDW 13.8, Plt Count 261, MPV 8.0, Neut % (Auto) 73.5, Lymph % (Auto) 15.8, Grimes % (Auto) 9.4, Eos % (Auto) 0.6, Baso % (Auto) 0.7, Nucleat RBC Rel Count 0.1, Neut # (Auto) 5.9, Lymph # (Auto) 1.3, Grimes # (Auto) 0.8, Eos # (Auto) 0.0, Baso # (Auto) 0.1, PHA Creatinine Clear 41.47, Sodium 138, Potassium 4.0, Chloride 109 H, Carbon Dioxide 24.3, Anion Gap 8.7, BUN 17, Creatinine 0.91, Est GFR (CKD-EPI) > 60.0, Glucose 105 H, Calcium 9.3 Documented By: Reji Frausto DO 10/29/23 1543 Signed By: <Electronically signed by Reji Frausto DO> 10/29/23 7804 [facility] Work Phone: Evaluation note* Diagnosis Hypertensive urgency- Primary documented in this encounter [facility] [place] Other Evaluation noteNo assessment information available [facility] Work Phone: Evaluation note* Diagnosis Onset Date Resolution Status Change in bowel habits acute Primary hypertension acute Rotator cuff arthropathy of right shoulder acute Hx of malignant neoplasm of colon noneactive Pain in right shoulder nonea ctive [facility] Work Phone: Evaluation note* Diagnosis Onset Date Resolution Status Change in bowel habits acute Primary hypertension acute Rotator cuff arthropathy of right shoulder acute Hx of malignant neoplasm of colon noneactive Pain in right shoulder nonea ctive Primary hypertension acute Rotator cuff arthropathy of right shoulder acute Pain in right shoulder nonea ctive Change in bowel habits acute [facility] Work Phone: Evaluation note* Diagnosis Onset Date Resolution Status ST elevation myocardial infa rction (STEMI) of inferior wall acute [facility] Work Phone: Evaluation note* Diagnosis Onset Date Resolution Status ASHD (arteriosclerotic heart disease) acute Hypercholesterolemia acute Lung nodule acute Medication side effects acut e Nicotine addiction acute Primary hypertension acute Shortness of breath acute [facility] Work Phone: evaluation note* Diagnosis Onset Date Resolution Status ASHD (arteriosclerotic heart disease) acute Hypercholesterolemia acute IBS (irritable bowel syndrome) acute Lung nodule acute Nicotine addiction acute Primary hypertension acute ASHD (arteriosclerotic heart disease) acute Hypercholesterolemia acute IBS (irritable bowel syndrome) acute Primary hypertension acute [facility] Work Phone: Evaluation note* Diagnosis Onset Date Resolution Status ASHD (arteriosclerotic heart disease) acute Hypercholesterolemia acute IBS (irritable bowel syndrome) acute Lung nodule acute Nicotine addiction acute Primary hypertension acute ASHD (arteriosclerotic heart disease) acute Hypercholesterolemia acute IBS (irritable bowel syndrome) acute Primary hypertension acute Diarrhea acute Fecal urgency acute History of colon cancer acut e IBS (irritable bowel syndrome) acute Intermittent abdominal pain acute [facility] Work Phone: Evaluation note* Diagnosis Coronary artery disease, unspecified vessel or lesion type, unspecified whether angina present, unspecified whether [place] or transplanted heart History of PTCA Postsurgical percutaneous transluminal coronary angioplasty status History of ST elevation myocardial infarction (STEMI) Shortness of breath Former smoker Personal history of tobacco use, presenting hazards to health BMI 26.0-26.9,adult Hyperlipidemia, unspecified hyperlipidemia type documented in this encounter [facility] Work Phone: History and physical note Author Reji Frausto [facility] October 27, 2023 6:21pm Note Date/Time October 27, 2023 5:5 1pm [facility] [address] [place] [address] Cardiology H&P Signed Patient: Genny Barboza MR#: [id number] : 1940 Acct:[id number] Age/Sex: 83 / F Adm Date: 4 Loc: Room: Type: [facility] Attending Dr: Reji Frausto DO Copies to: DO Reji Soni DO~ Date of Service: 10/27/2023 Cardiology HPI History of Present Illness Chief complaint: Inferior STEMI HPI: Ms. Barboza is a 83 year old female admitted through the emergency room with new onset chest discomfort, ECG at 1710 revealed inferior STEMI as transmitted from ER to my electronic device. Case discussed with nurse practitioner; appropriateupstream antiplatelet and Antithrombin therapies administered under my direction, patient arrived in [employer] at 1756 and underwent primary PCI at 1810; door to device time was 60 minutes. Past medical history is noted for essential hypertension, history of lung mass, GERD There is no prior history of myocardial infarction, revascularization, stroke, thromboembolic or bleeding disorder. Patient arrives hemodynamically stable with bradycardia, she was administered atropine for bradycardia I believe in the field, ECG reveals sinus bradycardia with inferior ST elevation injury current. A total of 60 minutes nonprocedural critical care time were devoted to ER staff,[employer] staff, nursing staff, patient and family both pre and post procedurally. Review of Systems Review of Systems All other systems reviewed & are negative unless noted below or in HPI Constitutional Constitutional: Reports as per HPI Cardiovascular Cardiovascular: Reports as per HPI and Reports chest pain at rest [facility] Medical History Lung nodule CT: 1.7cm nodule RLL - 03/2023 PET/CT: no FDG avid nodules - 04/2023 CT: 1.9cm nodule RLL - 06/2023 Lung mass Change in bowel habits Rotator cuff arthropathy of right shoulder Tinea corporis Secondary spontaneous pneumothorax Rectovaginal fistula Pulmonary nodule Primary hypertension Nicotine dependence, cigarettes, in remission Muscle mass Lumbar spondylosis Lipoma of right lower extremity Irritable bowel syndrome without diarrhea History of small bowel obstruction Gastroesophageal reflux disease with esophagitis without hemorrhage Estrogen deficiency COVID Abdominal wall mass Surgical History Hx of cataract surgery History of hysterectomy H/O exploratory laparotomy H/O cystoscopy History of colon resection colon cancer H/O colonoscopy Family History Father Family/Other Legacy FamHx Relation: Migrated Family History Mother Social History Smoking Status: Former smoker Tobacco Type: cigarettes Substance Use Type: None Meds Medications and Allergies Allergies Penicillins Allergy (Unknown, Verified 07/25/23 06:59) Unknown Reaction Home Medications losartan 50 mg tablet 50 mg PO DAILY 05/17/23 [History Confirmed 07/24/23] multivitamin 1 tab PO DAILY 06/20/23 [History Confirmed 07/24/23] Clenpiq 10 mg-3.5 gram-12 gram/175 mL oral solution (sod picosulf-mag ox-citric ac) 175 ml PO DAILY Bowel Prep 2 doses #350 mL 07/05/23 [Rx] omeprazole 40 mg capsule,delayed release See Rx Instructions .Route .COMPLEX #30 ea 10/07/23 [Rx] Exam Physical Exam Vital Signs: Temp Pulse Resp BP Pulse Ox O2 Del Method 97.9 F 51 L 18 116/66 99 Room Air 10/27/23 17:31 10/27/23 17:31 10/27/23 17:31 10/27/23 17:31 10/27/23 17:31 10/27/23 17:31 Const General: cooperative and in distress Nutritional Appearance: average body habitus Orientation: alert, awake and oriented x3 HEENT Head: normal to inspection Eyes General: appearance normal, both eyes and all related structures Neck Neck: normal visual inspection Chest Chest palpation & inspection: normal inspection of the chest Resp Effort & Inspection: normal respiratory effort Auscultation: clear to auscultation bilaterally Cardio Rate: bradycardic Rhythm: regular rhythm Heart Sounds: S1 normal, S2 normal and no murmurs Pulses: radial pulses present and femoral pulses present GI Palpation: soft Skin General: no rashes or lesions noted Neuro General: patient alert, patient awake and patient oriented x3 Cognition: normal cognition Speech: speech normal Extrem General: no clubbing, cyanosis or edema Results - Cardiology Labs 10/27/23 17:20 10/27/23 17:20 Lab results: Cardiac Enzymes 10/27/23 Range/Units 17:20 AST 60 H (13-39) U/L Total Creatine Kinase 74 (30-223) U/L CBC 10/27/23 Range/Units 17:20 RBC 4.45 (3.60-5.00) X10E6/uL Hgb 14.5 (11.8-15.4) g/dL Hct 42.6 (34.0-46.4) % Plt Count 294 (150-450) x10E3/uL Neut # (Auto) 5.5 (1.8-7.7) x10E3/uL Lymph # (Auto) 2.2 (1.00-4.8) x10E3/uL Grimes # (Auto) 0.7 (0.0-0.8) x10E3/uL Eos # (Auto) 0.1 (0.0-0.45) x10E3/uL Baso # (Auto) 0.1 (0.0-0.2) x10E3/uL Comprehensive Metabolic Panel 10/27/23 Range/Units 17:20 Sodium 138 (136-145) mmol/L Potassium 3.7 (3.5-5.1) mmol/L Chloride 107 (98-107) mmol/L Carbon Dioxide 21.0 (21.0-31.0) mmol/L BUN 17 (7-25) mg/dL Creatinine 1.06 (0.60-1.20) mg/dL Glucose 166 H (70-100) mg/dL Calcium 10.0 (8.6-10.3) mg/dL AST 60 H (13-39) U/L ALT 36 (7-52) U/L Alkaline Phosphatase 86 (34-104) U/L Total Protein 7.1 (6.4-8.9) gm/dL Albumin 4.4 (3.5-5.7) gm/dL Intake and Output 10/27/23 10/27/23 10/27/23 07:59 15:59 23:59 Other: Weight 66.3 kg Patient Weight 10/27/23 23:59 Weight 66.3 kg Lab 10/27/23 17:20 PT 10.7 INR 0.9 APTT 23.1 L EKG Interpretations EKG EKG results cardiology: sinus rhythm EKG shows: bradycardia HI, pacemaker, normal Myocardial infarction: inferior HI (acute or recent) A&P - Cardiology (1) ST elevation myocardial infarction (STEMI) of inferior wall: Code(s): I21.19 - ST elevation (STEMI) myocardial infarction involving other coronary artery of inferior wall Plan Proceed with emergency cath and PCI Documented By: Reji Frausto DO 10/27/23 1750 Signed By: <Electronically signed by Reji Frausto DO> 10/27/23 1821 [facility] Work Phone: History general Narrative - [...] History CYSTOSCOPY Hospitalization History SEE SURGICAL HX [facility] Other Hospital Discharge instructions Additional Instructions We evaluated you for your shortness of breath. We discussed this is most likely due to your Brilinta. Please see your auto body repair technician this afternoon at your previously scheduled appointment. Please follow close with your primary care doctor as well. Please return to the emergency department if you develop any worsening or concerning symptoms.[facility] Work Phone: Reason for referral (narrative)* Consultation (Routine) - Authorized Specialty Diagnoses / Procedures Referred By Contac t Referred To Contact Cardiology Diagnoses Coronary artery disease, unspecified vessel or lesion type, unspecified whether angina present, unspecified whether [place] or transplanted heart Procedures Follow Up In Cardiology Inderjit Frausto DO [address] [facility] 2, [address] [address] Inderjit Frausto DO [address] [facility] 2, [address] [address] Referral ID Status Reason Start Date Expiration Date V isits Requested Visits Authorized [id number] Authorized 11/07/2023 11/06/2024 1 1 * Consultation (Routine) - Authorized Specialty Diagnoses / Procedures Referred By Jamel t Referred To Contact Cardiac Rehabilitation Diagnoses Coronary artery disease, unspecified vessel or lesion type, unspecified whether angina present, unspecified whether [place] or transplanted heart History of PTCA History of ST elevation myocardial infarction (STEMI) Inderjit Frausto DO 703 [facility] 2, [address] [place] [address] Referral ID Status Reason Start Date Expiration Date Visits Requested Visits Authorized [id number] Authorized Specialty Services Required 11/07/2023 11/06/2024 1 1 Scheduling Instructions [facility] Work Phone: Summary Purpose Family History Relationship Condition Age at Onset Recorded Date/T megan father Unknown family member Unknown Not Specified Unknown Relationship Condition Age at Onset Recorded Date/T megan father Unknown family member Unknown mother Unknown Advance Directives Advance Directive Response Recorded Date/ Time Advance Directives No April 3:31pm Advance Directive Response Recorded Date/ Time Advance Directives No July 18, 024 2:08pm Chief Complaint and Reason for Visit Chief Complaint Wellness Ibs Shoulder Pain R91.1 Chief Complaint Ibs Shoulder Pain R91.1 2 week follow up Shoulder Injection Reason for Visit Change in bowel habi ts Primary hypertension Rotator cuff arthropathy of right shoulder Hx of malignant neoplasm of colon Pain in right shoulder Chief Complaint Ibs Shoulder Pain R91.1 2 week follow up Shoulder Injection REF BY DR. DU HX OF COLON CA/BOWEL HABIT CHANGES Reason for Visit Change in bowel habi ts Primary hypertension Rotator cuff arthropathy of right shoulder Hx of malignant neoplasm of colon Pain in right shoulder Primary hypertension Rotator cuff arthropathy of right shoulder Pain in right shoulder Change in bowel habits Chief Complaint Chest pain Reason for Visit ST elevation myocard ial infarction (STEMI) of inferior wall Chief Complaint Chest pain Chest pain Reason for Visit ST elevation myocard ial infarction (STEMI) of inferior wall Chief Complaint Chest pain Chest pain sob, poss hbp Reason for Visit ST elevation myocard ial infarction (STEMI) of inferior wall Chief Complaint Chest pain Chest pain sob, poss hbp Amb Documentation hospital follow up Reason for Visit ASHD (arteriosclerot ic heart disease) Hypercholesterolemia Lung nodule Medication side effects Nicotine addiction Primary hypertension Shortness of breath Chief Complaint Chest pain Chest pain sob, poss hbp Amb Documentation hospital follow up BP concerns/flu shot Reason for Visit ASHD (arteriosclerot ic heart disease) Hypercholesterolemia IBS (irritable bowel syndrome) Lung nodule Nicotine addiction Primary hypertension ASHD (arteriosclerotic heart disease) Hypercholesterolemia IBS (irritable bowel syndrome) Primary hypertension Chief Complaint Chest pain Chest pain sob, poss hbp Amb Documentation hospital follow up BP concerns/flu shot 4 month follow up post Colon Reason for Visit ASHD (arteriosclerot ic heart disease) Hypercholesterolemia IBS (irritable bowel syndrome) Lung nodule Nicotine addiction Primary hypertension ASHD (arteriosclerotic heart disease) Hypercholesterolemia IBS (irritable bowel syndrome) Primary hypertension Diarrhea Fecal urgency History of colon cancer IBS (irritable bowel syndrome) Intermittent abdominal pain Additional Source Comments Reason for Visit (unrecogniz ed section and content) Reason Comments Headache Hypertension Reason Comments TCM HI on 10/27/23 at [facility] INFORMATION SOURCE (unrecogn ized section and content) DATE CREATED AUTHOR 05/23/2022 [facility] DATE CREATED AUTHOR AUTHOR'S ORGANIZ ATION 05/25/2022 [facility] DATE CREATED AUTHOR AUTHOR'S ORGANIZ ATION 04/25/2023 [facility] EPIC DATE CREATED AUTHOR AUTHOR'S ORGANIZ ATION 01/10/2024 [facility] DATE CREATED AUTHOR AUTHOR'S ORGANIZ ATION 03/09/2024 [facility] Care Teams (unrecognized sec tion and content) Team Status: Active Member Role Status Dates Branden Du DO Primary Care Provider Active Team Status: Inactive Member Role Status Dates Doe Álvarez PA-C Emergency Provider Active Start: October 27, 2023 End: October 29, 2023 Branden Du DO Primary Care Provider Active Start: October 27, 2023 End: October 29, 2023 Reji Frausto DO Admit Provider, Att ending Provider Active Start: October 27, 2023 End: October 29, 2023 Sobia Okeefe MD Other Provider Active Start: October 27, 2023 End: October 29, 2023 Team Status: Active Member Role Status Dates Doe Álvarez PA-C Emergency Provider Active Start: October 28, 2023 Branden Du DO Primary Care Provider Active Start: October 28, 2023 Reji Frausto DO Admit Provider, Oth er Provider Active Start: October 28, 2023 Sobia Okeefe MD Attending Pr ovider, Other Provider Active Start: October 28, 2023 Team Status: Active Member Role Status Dates Doe Álvarez PA-C Emergency Provider Active Start: October 27, 2023 Branden Du DO Primary Care Provider Active Start: October 27, 2023 Reji Frausto DO Admit Provider, Att ending Provider Active Start: October 27, 2023 Team Status: Inactive Member Role Status Renetta Du DO Attending Provider Active Sta rt: February 08, 2023 End: February 08, 2023 Team Status: Inactive Member Role Status Renetta Du DO Attending Provider Active Sta rt: March 26, 2023 End: March 26, 2023 Team Status: Inactive Member Role Status Renetta Du DO Attending Provider Active Sta rt: April 12, 2023 End: April 12, 2023 Team Status: Inactive Member Role Status Renetta Du DO Primary Care Provide r, Attending Provider Active Start: May 06, 2023 End: May 06, 2023 Team Status: Inactive Member Role Status Renetta Du DO Primary Care Provide r, Attending Provider Active Start: May 21, 2023 End: May 21, 2023 Team Status: Inactive Member Role Status Renetta Du DO Primary Care Provide r, Attending Provider Active Start: June 07, 2023 End: June 07, 2023 Team Status: Inactive Member Role Status Renetta Du DO Primary Care Provider Active Start: June 20, 2023 End: June 20, 2023 Sylvester Monk MD Attending Provider Active S tart: June 20, 2023 End: June 20, 2023 Team Status: Active Member Role Status Dates Doe Álvarez PA-C Emergency Provider Active Start: October 28, 2023 Branden Du DO Primary Care Provider Active Start: October 28, 2023 Reji Frausto DO Admit Provider, Oth er Provider Active Start: October 28, 2023 Sobia Okeefe MD Attending Pr ovider, Other Provider Active Start: October 28, 2023 Marito Brambila MD Active Start: October 28, 2023 Team Status: Inactive Member Role Status Dates Branden Du DO Primary Care Provider Active Start: November 05, 2023 End: November 05, 2023 Rona Andres DO Emergency Provider Active Start: November 05, 2023 End: November 05, 2023 Team Status: Active Member Role Status Dates Branden Du DO Primary Care Provider Active Start: November 05, 2023 TAMIR Avendano Attending Provider Active St art: November 05, 2023 Team Status: Inactive Member Role Status Dates Branden Du DO Primary Care Provide r, Attending Provider Active Start: November 12, 2023 End: November 12, 2023 Team Status: Inactive Member Role Status Dates Branden Du DO Primary Care Provide r, Attending Provider Active Start: December 04, 2023 End: December 04, 2023 Team Status: Inactive Member Role Status Dates Branden Du DO Primary Care Provider Active Start: December 12, 2023 End: December 12, 2023 Sylvester Monk MD Attending Provider Active S tart: December 12, 2023 End: December 12, 2023 Roofer Relationship Specialty Start Date End Date Branden Du DO [address] [place] [address] PCP - General Internal Medicine 11/07/23 Maura Andres RN Care Butcher Assistant 10/30/23 Goals (unrecognized section and content) Goals may [...] BE BASED ON THE PRIMARY CLINICAL RECORDS. [facility] [employer] [facility]. provides no warranty or guarantee of the accuracy or completeness of information in this document.
[2024-03-12 15:02] LABS: Basophils Absolute Auto 0.1 10^3/uL (0.0-0.1); Basophils Percent Auto 0.8 % (0.2-2.0); Eosinophils Absolute Auto 0.1 10^3/uL (0.0-0.7); Eosinophils Percent Auto 0.8 % (0.9-7.0); Hematocrit 40.7 % (36.0-48.0); Hemoglobin 13.2 g/dL (12.0-16.0); Immature Granulocytes Abs Auto 0.01 10^3/uL (0.00-0.03); Immature Granulocytes Pct Auto 0.1 % (0.0-0.5); Lymphocytes Absolute Auto 1.6 10^3/uL (1.2-3.8); Lymphocytes Percent Auto 22.7 % (20.5-60.0); Mean Corpuscular HGB Conc 32.4 g/dL (29.9-35.2); Mean Corpuscular Hemoglobin 31.9 pg (26.7-34.0); Mean Corpuscular Volume 98.3 fL (81.0-99.0); Mean Platelet Volume 9.5 fL (9.5-13.5); Monocytes Absolute Auto 0.7 10^3/uL (0.3-0.8); Monocytes Percent Auto 9.8 % (1.7-12.0); Neutrophils Absolute Auto 4.7 10^3/uL (1.4-6.5); Neutrophils Percent Auto 65.8 % (43.0-75.0); Platelet Count 278 10^3/uL (150-450); Red Blood Count 4.14 10^6/uL (4.20-5.40); Red Cell Distribution Width 13.5 % (11.0-15.0); White Blood Count 7.2 10^3/uL (4.0-11.0)
[2024-03-12 15:20] LABS: Alanine Aminotransferase 32 U/L (14-59); Albumin Globulin Ratio 1.1; Albumin Level 3.5 g/dL (3.4-5.0); Alkaline Phosphatase 123 U/L (46-116); Anion Gap 14.2; Aspartate Amino Transferase 17 U/L (15-37); BUN Creatinine Ratio 15.5; Bilirubin Total 0.6 mg/dL (0.2-1.0); Calcium 9.1 mg/dL (8.5-10.1); Carbon Dioxide 25.5 mmol/L (21.0-32.0); Chloride 107 mmol/L (98-107); Chol HDL Ratio 1.6; Cholesterol 199 mg/dL (<=200); Estimated GFR (African America >60 (>=60 mL/min/1.73m^2); Estimated GFR (Non-African Ame 55 (>=60 mL/min/1.73m^2); Globulin 3.3 g/dL; Glucose 91 mg/dL (74-106); HDL Cholesterol 128 mg/dL (40-60); Potassium 3.7 mmol/L (3.5-5.1); Sodium 143 mmol/L (136-145); Total Protein 6.8 g/dL (6.4-8.2); Triglycerides 65 mg/dL (<=150)
== END 2024-03-12 14:32 | disposition home or self-care (01) ==
LOC: LAB 14:32
PROVIDERS: PCP Internal Medicine; Visit Provider Internal Medicine
DX: E78.00 Pure hypercholesterolemia, unspecified (principal); I10 Essential (primary) hypertension; I25.10 Atherosclerotic heart disease of native coronary artery without angina pectoris
CPT/HCPCS: 36415; 80053; 80061; 85025

== ENCOUNTER 2024-03-12 14:37 | Outpatient (OUT) | payer MEDICARE, SELFPAY ==
--- OUTSIDE RECORDS SUMMARY | 2024-03-12 14:57 | XMS_ITS | CCD ---
Author Organization [facility] Care Team Providers Care Adolescent Coordinator Name Role Phone Unavailable Primary Care Provider [...] PROVIDER, UNKNOWN Admitting Unavailable Branden Du Unavailable ELENA HASSAN Attending Unavailable DO Branden Du Primary Care Provider [phone] DO Branden Du Attending Provider [phone] DO Branden Du Primary Care Provider Philly, DO Otero Attending Provider [phone] FLAKITA Álvarez Emergency Provider [phone] DO Branden Du Primary Care Provider [phone] DO Reji Frausto Admit Provider DO Reji Frausto Attending Provider MD Sobia Okeefe Other Provider [phone] DO Rona Andres Emergency Provider [phone] INDREJIT FRAUSTO Attending Unavailable BRANDEN DU Primary Care Unavailable INDERJIT FRAUSTO Attending Unavailable BRANDEN DU Primary Care Unavailable Branden Du Primary Care Unavailable Rona Andres Attending Unavailable Rona Andres Admitting Unavailable Branden Du Admitting Unavailable Philly, Branden Attending Unavailable Philly, Branden Primary Care Unavailable [...] Translations: [PENICILLINS] Drug allergy (disorder) 4 [facility] Repository (12 sources) Substance with penicillin structure and antibacterial mechanism of action (substance) Drug allergy 4 Unknown [facility] Other (1 source) Penicillins Drug allergy (disorder) 4 [facility] Repository (1 source) Penicillins Propensity to adverse reactions 4 Unknown [facility] Medications Current Medications Medication Drug Class(es) Dates [...] type, unspecified whether angina present, unspecified whether [place] or transplanted heart , History of ST [...] type, unspecified whether angina present, unspecified whether [place] or transplanted heart , History of PTCA [...] Coronary arteriosclerosis; Translations: [Atherosclerotic heart disease of [place] coronary artery without angina pectoris] Onset: 11-07-2023 [...] Other custodial (current) drug therapy; Translations: [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 Patients having hematocrit values >55% require a special collection tube for coagulation studies. Please contact the laboratory at [phone] for redraw instructions. Alanine aminotransferase [En zymatic activity/volume] in Serum or PlasmaOrdered By: PROVIDER TEMP on 11-05-2023 ALT [Catalytic activity/Vol] 27 U/L Normal 7-52 [facility] Comment on above: Performed By: #### P TT, HS TROP, CBC, PT, BNP, CMP, CK #### [facility] [address] [place] [address] [place] Albumin [Mass/volume] in Ser um or Plasma by Bromocresol green (BCG) dye binding methoOrdered By: PROVIDER TEMP on 11-05-2023 Albumin BCG dye [Mass/Vol] 4.1 g/dL 3.5-5.7 [facility] Alkaline phosphatase [Enzyma tic activity/volume] in Serum or PlasmaOrdered By: PROVIDER TEMP on 11-05-2023 ALP [Catalytic activity/Vol] 99 U/L Normal 34-104 [facility] Comment on above: Performed By: #### P TT, HS TROP, CBC, PT, BNP, CMP, CK #### [facility] [address] [place] [address] [place] Aspartate aminotransferase [ Enzymatic activity/volume] in Serum or PlasmaOrdered By: PROVIDER TEMP on 11-05-2023 AST [Catalytic activity/Vol] 19 U/L Normal 13-39 [facility] Comment on above: Performed By: #### P TT, HS TROP, CBC, PT, BNP, CMP, CK #### [facility] [address] [place] [address] [place] Automated basophil %Ordered By: PROVIDER TEMP on 11-05-2023 Basophils/100 WBC (Bld) 0.8 % Normal . [facility] Comment on above: Performed By: #### P TT, HS TROP, CBC, PT, BNP, CMP, CK #### [facility] [address] [place] [address] [place] Automated basophil countOrde red By: PROVIDER TEMP on 11-05-2023 Basophils (Bld) [#/Vol] 0.1 10*3/uL Normal 0.0-0.2 [facility] Comment on above: Result Comment: PERF ORMED BY: [place] [address] PATHOLOGIST SENIOR INSPECTOR KAYLIN ARDON M.D. Performed By: #### P TT, HS TROP, CBC, PT, BNP, CMP, CK #### [address] Automated blood monocyte cou ntOrdered By: PROVIDER TEMP on 11-05-2023 Monocytes (Bld) [#/Vol] 0.6 10*3/uL Normal 0.0-0.8 [facility] Comment on above: Performed By: #### P TT, HS TROP, CBC, PT, BNP, CMP, CK #### [address] Automated eosinophil %Ordere d By: PROVIDER TEMP on 11-05-2023 Eosinophils/100 WBC (Bld) 0.8 % Normal . [facility] Comment on above: Performed By: #### P TT, HS TROP, CBC, PT, BNP, CMP, CK #### [facility] [address] [place] [address] Automated eosinophil countOr dered By: PROVIDER TEMP on 11-05-2023 Eosinophils (Bld) [#/Vol] 0.1 10*3/uL Normal 0.0-0.45 [facility] Comment on above: Performed By: #### P TT, HS TROP, CBC, PT, BNP, CMP, CK #### [address] Automated monocyte %Ordered By: PROVIDER TEMP on 11-05-2023 Monocytes/100 WBC (Bld) 9.6 % Normal . [facility] Comment on above: Performed By: #### P TT, HS TROP, CBC, PT, BNP, CMP, CK #### [address] Automated neutrophil %Ordere d By: PROVIDER TEMP on 11-05-2023 Neutrophils/100 WBC (Bld) 73.8 % Normal . [facility] Comment on above: Performed By: #### P TT, HS TROP, CBC, PT, BNP, CMP, CK #### [facility] [address] [place] [address] BNP ser/plasOrdered By: PROV IDER TEMP on 11-05-2023 Natriuretic peptide B (Bld) [Mass/Vol] 293.0 pg/mL High 5-100 [facility] Comment on above: Result Comment: PERF ORMED BY: [place] [address] PATHOLOGIST SENIOR INSPECTOR KAYLIN ARDON M.D. Performed By: #### P TT, HS TROP, CBC, PT, BNP, CMP, CK #### [facility] [address] [place] [address] Bilirubin.total [Mass/volume ] in Serum or PlasmaOrdered By: PROVIDER TEMP on 11-05-2023 Bilirubin [Mass/Vol] 0.5 mg/dL Normal 0.3-1.0 [facility] Comment on above: Performed By: #### P TT, HS TROP, CBC, PT, BNP, CMP, CK #### [facility] [address] [place] [address] CT angio chest PE protocolon 11-05-2023 CT angio chest PE protocol [facility] [place] [address] [place] [address] CT Scan Report Signed Patient: Genny Barboza MR#: [id number] : 1940 Acct:[id number] Age/Sex: 83 / F ADM Date: 11/05/23 Loc: ER Room: Type: [facility] ER Attending Dr: Copies to: Rona [...] Endy Crowley M.D.11/05/2023 10:53 AM Dictation Location: [place] [address] Transcribed By: [facility] 11/05/23 1053 Dictated By: Endy Crowley II, MD 11/05/23 1045 Signed By: 11/05/23 1053 Normal [facility] Calcium [Mass/volume] in Ser um or PlasmaOrdered By: MEGGAN ORTIZ on 11-05-2023 Calcium [Mass/Vol] 9.6 mg/dL Normal 8.6-10.3 [facility] Comment on above: Performed By: #### P TT, HS TROP, CBC, PT, BNP, CMP, CK #### [facility] [address] Carbon dioxide, total [Moles /volume] in Serum or PlasmaOrdered By: PROVIDER TEMP on 11-05-2023 CO2 [Moles/Vol] 22.2 mmol/L Normal 21.0-31.0 [facility] Comment on above: Performed By: #### P TT, HS TROP, CBC, PT, BNP, CMP, CK #### [facility] [address] Chloride [Moles/volume] in S carolyne or PlasmaOrdered By: PROVIDER TEMP on 11-05-2023 Chloride [Moles/Vol] 109 mmol/L High 98-107 [facility] Comment on above: Performed By: #### P TT, HS TROP, CBC, PT, BNP, CMP, CK #### [address] Complete Blood Count Auto Di ffon 11-05-2023 Mean Corpuscular HGB Conc 34.2 g/dL Normal 32.0-35.0 [facility] Comment on above: Performed By: #### P TT, HS TROP, CBC, PT, BNP, CMP, CK #### [address] Monocytes/100 WBC (Bld) 20.41 % High 0.00-20.00 [facility] Comment on above: Result Comment: For adults in ED, MDW > 20.0 may be associated with a higher risk of sepsis during the first 12 hrs of hospital admission Performed By: #### P TT, HS TROP, CBC, PT, BNP, CMP, CK #### [facility] [address] NRBC% 0.1 /100{WBC} Normal 0-0.5 [facility] Comment on above: Performed By: #### P TT, HS TROP, CBC, PT, BNP, CMP, CK #### [facility] [address] Comprehensive Metabolic Pane marianela 11-05-2023 Albumin [Mass/Vol] 4.1 g/dL Normal 3.5-5.7 [facility] Comment on above: Performed By: #### P TT, HS TROP, CBC, PT, BNP, CMP, CK #### [address] Creatinine Clr Calc Pharmacy 42.53 Normal [facility] Comment on above: Result Comment: PERF ORMED BY: [place] [address] PATHOLOGIST SENIOR INSPECTOR KAYLIN ARDON M.D. Performed By: #### P TT, HS TROP, CBC, PT, BNP, CMP, CK #### [address] GFR/1.73 sq M.predicted MDRD (S/P/Bld) [Vol rate/Area] mL/min/{1.73_m2} Normal [facility] Comment on above: Performed By: #### P TT, HS TROP, CBC, PT, BNP, CMP, CK #### [address] Creatine kinase [Enzymatic a ctivity/volume] in Serum or PlasmaOrdered By: PROVIDER TEMP on 11-05-2023 CK [Catalytic activity/Vol] 66 U/L Normal 30-223 [facility] Comment on above: Performed By: #### P TT, HS TROP, CBC, PT, BNP, CMP, CK #### [place] [address] [place] Creatinine [Mass/volume] in Serum or PlasmaOrdered By: PROVIDER TEMP on 11-05-2023 Creatinine [Mass/Vol] 0.87 mg/dL Normal 0.60-1.20 [facility] Comment on above: Performed By: #### P TT, HS TROP, CBC, PT, BNP, CMP, CK #### [address] ECG 12 lead ECGon 11-05-2023 ECG 12 lead ECG [facility] [place] [address] [place] [address] Electrocardiograph Report Signed Patient: Genny Barboza MR#: [id number] : 1940 Acct:[id number] Age/Sex: 83 / F ADM Date: 11/05/23 Loc: ER Room: Type: [facility] ER Attending Dr: Ordering Provider: Rona [...] By Sim Gimenez DO 1144 Normal [facility] Erythrocyte distribution wid th [Ratio] by Automated countOrdered By: PROVIDER TEMP on 11-05-2023 Erythrocyte distribution width (RBC) [Ratio] 13.4 % Normal 11.9-15.3 [facility] Comment on above: Performed By: #### P TT, HS TROP, CBC, PT, BNP, CMP, CK #### [facility] [address] [place] [address] [place] Erythrocytes [#/volume] in B lood by Automated countOrdered By: PROVIDER TEMP on 11-05-2023 RBC (Bld) [#/Vol] 4.19 10*6/uL Normal 3.60-5.00 [facility] Comment on above: Performed By: #### P TT, HS TROP, CBC, PT, BNP, CMP, CK #### [facility] [address] [place] [address] [place] Glucose [Mass/volume] in Ser um or PlasmaOrdered By: PROVIDER TEMP on 11-05-2023 Glucose [Mass/Vol] 104 mg/dL High 70-100 [facility] Comment on above: ADA recommended refe rence rangeRandom Glucose Reference Range is dependent on time and content of last meal. Glucose of more than 200 mg/dL in a nonstressed, ambulatory subject supports the diagnosis of Diabetes Mellitus. Result Comment: [place] om Glucose Reference Range is dependent on time and content of last meal. Glucose of more than 200 mg/dL in a nonstressed, ambulatory subject supports the diagnosis of Diabetes Mellitus. ADA recommended reference range Performed By: #### P TT, HS TROP, CBC, PT, BNP, CMP, CK #### [address] Hematocrit [Volume Fraction] of Blood by Automated countOrdered By: PROVIDER TEMP on 11-05-2023 Hematocrit (Bld) [Volume fraction] 40.1 % Normal 34.0-46.4 [facility] Comment on above: Performed By: #### P TT, HS TROP, CBC, PT, BNP, CMP, CK #### [address] Hemoglobin [Mass/volume] in BloodOrdered By: PROVIDER TEMP on 11-05-2023 Hemoglobin (Bld) [Mass/Vol] 13.7 g/dL Normal 11.8-15.4 [facility] Comment on above: Performed By: #### P TT, HS TROP, CBC, PT, BNP, CMP, CK #### [address] INR in Platelet poor plasma by Coagulation assayOrdered By: PROVIDER TEMP on 11-05-2023 INR Coag (PPP) [Relative time] 0.9 {INR} Normal [facility] Comment on above: INR Therapeutic Rang e [...] L IPID, CBC, HS TROP, BMP #### [facility] [address] Leukocytes [#/volume] correc kristi for nucleated erythrocytes in Blood by Automated counOrdered By: PROVIDER TEMP on 11-05-2023 WBC corrected for nucl RBC Auto (Bld) [#/Vol] 6.7 10*3/uL 3.8-11.6 [facility] Leukocytes [#/volume] in Blo od by Automated countOrdered By: PROVIDER TEMP on 11-05-2023 WBC (Bld) [#/Vol] 6.7 10*3/uL Normal 3.8-11.6 [facility] Comment on above: Performed By: #### P TT, HS TROP, CBC, PT, BNP, CMP, CK #### [place] [address] [place] Lymphocytes [#/volume] in Bl ood by Automated countOrdered By: PROVIDER TEMP on 11-05-2023 Lymphocytes (Bld) [#/Vol] 1.0 10*3/uL Normal 1.00-4.8 [facility] Comment on above: Performed By: #### P TT, HS TROP, CBC, PT, BNP, CMP, CK #### [place] [address] [place] Lymphocytes/100 leukocytes i n Blood by Automated countOrdered By: PROVIDER TEMP on 11-05-2023 Lymphocytes/100 WBC (Bld) 15.0 % Normal . [facility] Comment on above: Performed By: #### P TT, HS TROP, CBC, PT, BNP, CMP, CK #### [place] [address] [place] MCH [Entitic mass] by Automa kristi countOrdered By: PROVIDER TEMP on 11-05-2023 MCH (RBC) [Entitic mass] 32.6 pg Normal 24.7-34.3 [facility] Comment on above: Performed By: #### P TT, HS TROP, CBC, PT, BNP, CMP, CK #### [facility] [address] MCHC Auto (RBC) [Mass/Vol]Or dered By: PROVIDER TEMP on 11-05-2023 MCHC (RBC) [Mass/Vol] 34.2 g/dL 32.0-35.0 [facility] MCV [Entitic volume] by Auto mated countOrdered By: PROVIDER TEMP on 11-05-2023 MCV (RBC) [Entitic vol] 95.5 fL Normal 80-100 [facility] Comment on above: Performed By: #### P TT, HS TROP, CBC, PT, BNP, CMP, CK #### [facility] [address] [place] [address] Monocyte distribution width [Entitic volume] in Blood by AutomatedOrdered By: PROVIDER TEMP on 11-05-2023 Monocyte distribution width Auto (Bld) [Entitic vol] 20.41 % High 0.00-20.00 [facility] Comment on above: For adults in ED, MD W > 20.0 may be associated with a higher risk of sepsis during the first 12 hrs of hospital admission Neutrophils [#/volume] in Bl ood by Automated countOrdered By: PROVIDER TEMP on 11-05-2023 Neutrophils (Bld) [#/Vol] 5.0 10*3/uL Normal 1.8-7.7 [facility] Comment on above: Performed By: #### P TT, HS TROP, CBC, PT, BNP, CMP, CK #### [facility] [address] No Panel InformationOrdered By: PROVIDER TEMP on 11-05-2023 Estimated GFR (CKD-EPI) > 60.0 mL/Min [facility] Creatinine Clearance (Chem 42.53 [facility] Nucleated erythrocytes [Pres ence] in Blood by Automated countOrdered By: PROVIDER TEMP on 11-05-2023 Nucleated RBC Auto Ql (Bld) 0.1 /100{WBC} 0-0.5 [facility] Partial Thromboplastin Timeo n 11-05-2023 aPTT Coag (Bld) [Time] 30.2 s Normal 25.1-36.5 [facility] Comment on above: Result Comment: A he matocrit value greater than 55% may lead to inaccurate results in coagulation testing. Patients having hematocrit values >55% require a special collection tube for coagulation studies. Please contact the laboratory at [phone] for redraw instructions. PERFORMED BY: [place] [address] PATHOLOGIST SENIOR INSPECTOR KAYLIN ARDON M.D. Performed By: #### L IPID, CBC, HS TROP, BMP #### [facility] [address] [place] [address] [place] Platelet mean volume [Entiti c volume] in Blood by Automated countOrdered By: PROVIDER TEMP on 11-05-2023 Platelet mean volume (Bld) [Entitic vol] 8.0 fL Normal 6.3-10.7 [facility] Comment on above: Performed By: #### P TT, HS TROP, CBC, PT, BNP, CMP, CK #### [facility] [address] [place] [address] [place] Platelets [#/volume] in Bloo d by Automated countOrdered By: PROVIDER TEMP on 11-05-2023 Platelets (Bld) [#/Vol] 314 10*3/uL Normal 150-450 [facility] Comment on above: Performed By: #### P TT, HS TROP, CBC, PT, BNP, CMP, CK #### [facility] [address] [place] [address] [place] Potassium [Moles/volume] in Serum or PlasmaOrdered By: PROVIDER TEMP on 11-05-2023 Potassium [Moles/Vol] 4.3 mmol/L Normal 3.5-5.1 [facility] Comment on above: Performed By: #### P TT, HS TROP, CBC, PT, BNP, CMP, CK #### [facility] [address] [place] [address] [place] Protein [Mass/volume] in Ser um or PlasmaOrdered By: PROVIDER TEMP on 11-05-2023 Protein [Mass/Vol] 6.8 g/dL Normal 6.4-8.9 [facility] Comment on above: Performed By: #### P TT, HS TROP, CBC, PT, BNP, CMP, CK #### [address] Prothrombin time (PT)Ordered By: PROVIDER TEMP on 11-05-2023 PT Coag (PPP) [Time] 11.0 s Normal 9.0-12.9 [facility] Comment on above: A hematocrit value g reater than 55% may lead to inaccurate results in coagulation testing. Patients having hematocrit values >55% require a special collection tube for coagulation studies. Please contact the laboratory at [phone] for redraw instructions. Result Comment: A he matocrit value greater than 55% may lead to inaccurate results in coagulation testing. Patients having hematocrit values >55% require a special collection tube for coagulation studies. Please contact the laboratory at [phone] for redraw instructions. Performed By: #### L IPID, CBC, HS TROP, BMP #### [address] Serum globulin measurement b y calculation (mass/volume)Ordered By: PROVIDER TEMP on 11-05-2023 Globulin (S) [Mass/Vol] 2.7 g/dL [facility] Comment on above: Performed By: #### P TT, HS TROP, CBC, PT, BNP, CMP, CK #### [facility] [address] [place] [address] Serum or plasma albumin/glob ulin mass ratioOrdered By: PROVIDER TEMP on 11-05-2023 Albumin/Globulin [Mass ratio] 1.5 {ratio} [facility] Comment on above: Performed By: #### P TT, HS TROP, CBC, PT, BNP, CMP, CK #### [address] Serum or plasma anion gap de terminationOrdered By: PROVIDER TEMP on 11-05-2023 Anion gap [Moles/Vol] 12.1 mmol/L Normal 6.0-15.0 [facility] Comment on above: Performed By: #### P TT, HS TROP, CBC, PT, BNP, CMP, CK #### [facility] [address] [place] [address] [place] Sodium [Moles/volume] in Ser um or PlasmaOrdered By: PROVIDER TEMP on 11-05-2023 Sodium [Moles/Vol] 139 mmol/L Normal 136-145 [facility] Comment on above: Performed By: #### P TT, HS TROP, CBC, PT, BNP, CMP, CK #### [place] [address] [place] Troponin I High Sensitivityo n 11-05-2023 Troponin I High Sensitivity 36.1 pg/mL High 0.0-15.0 [facility] Comment on above: Result Comment: PERF ORMED BY: [place] [address] PATHOLOGIST SENIOR INSPECTOR KAYLIN ARDON M.D. Performed By: #### L IPID, CBC, HS TROP, BMP #### [address] Troponin I High Sensitivity 34.8 pg/mL High 0.0-15.0 [facility] Comment on above: Result Comment: PERF ORMED BY: [place] [address] PATHOLOGIST SENIOR INSPECTOR KAYLIN ARDON M.D. Performed By: #### P TT, HS TROP, CBC, PT, BNP, CMP, CK #### [address] Troponin I.cardiac [Mass/vol ume] in Serum or Plasma by Detection limit <= 0.01 ng/Ordered By: Rona Andres on 11-05-2023 Troponin I.cardiac DL <= 0.01 ng/mL [Mass/Vol] 36.1 pg/mL High 0.0-15.0 [facility] Urea nitrogen [Mass/volume] in Serum or PlasmaOrdered By: PROVIDER TEMP on 11-05-2023 Urea nitrogen [Mass/Vol] 20 mg/dL Normal 7-25 [facility] Comment on above: Performed By: #### P TT, HS TROP, CBC, PT, BNP, CMP, CK #### [facility] [address] [place] [id number] [place] XR chest 1V portableon 11-04 XR chest 1V portable [facility] [place] [address] [place] [address] XRay Report Signed Patient: Genny Barboza MR#: [id number] : 1940 Acct:[id number] Age/Sex: 83 / F ADM Date: 11/05/23 [...] Antonio Martinez M.D.11/05/2023 7:45 AM Dictation Location: [place] [address] Transcribed By: [facility] 11/05/23 0745 Dictated By: Juan Antonio Martinez DO 11/05/23 0743 Signed By: 11/05/23 0745 Normal [facility] Automated basophil %Ordered By: Reji Frausto on 10-29-2023 Basophils/100 WBC (Bld) 0.7 % Normal . [facility] Comment on above: Performed By: #### L IPID, CBC, HS TROP, BMP #### [facility] [address] [place], [place] [id number] [facility] Automated basophil countOrde red By: Reji Frausto on 10-29-2023 Basophils (Bld) [#/Vol] 0.1 10*3/uL Normal 0.0-0.2 [facility] Comment on above: Result Comment: PERF ORMED BY: [place] [address] PATHOLOGIST SENIOR INSPECTOR KAYLIN ARDON M.D. Performed By: #### L IPID, CBC, HS TROP, BMP #### [address] Automated blood monocyte cou ntOrdered By: Reji Frausto on 10-29-2023 Monocytes (Bld) [#/Vol] 0.8 10*3/uL Normal 0.0-0.8 [facility] Comment on above: Performed By: #### L IPID, CBC, HS TROP, BMP #### [address] Automated eosinophil %Ordere d By: Reji Frausto on 10-29-2023 Eosinophils/100 WBC (Bld) 0.6 % Normal . [facility] Comment on above: Performed By: #### L IPID, CBC, HS TROP, BMP #### [address] Automated eosinophil countOr dered By: Reji Frausto on 10-29-2023 Eosinophils (Bld) [#/Vol] 0.0 10*3/uL Normal 0.0-0.45 [facility] Comment on above: Performed By: #### L IPID, CBC, HS TROP, BMP #### [address] Automated monocyte %Ordered By: Reji Frausto on 10-29-2023 Monocytes/100 WBC (Bld) 9.4 % Normal . [facility] Comment on above: Performed By: #### L IPID, CBC, HS TROP, BMP #### [address] Automated neutrophil %Ordere d By: Reji Frausto on 10-29-2023 Neutrophils/100 WBC (Bld) 73.5 % Normal . [facility] Comment on above: Performed By: #### L IPID, CBC, HS TROP, BMP #### [facility] [address] [place] [address] Basic Metabolic Panelon Creatinine Clr Calc Pharmacy 41.47 Normal [facility] Comment on above: Result Comment: PERF ORMED BY: [place] [address] PATHOLOGIST SENIOR INSPECTOR KAYLIN ARDON M.D. Performed By: #### L IPID, CBC, HS TROP, BMP #### [place] [address] [place] GFR/1.73 sq M.predicted MDRD (S/P/Bld) [Vol rate/Area] mL/min/{1.73_m2} Normal [facility] Comment on above: Performed By: #### L IPID, CBC, HS TROP, BMP #### [place] [address] [place] Calcium [Mass/volume] in Ser um or PlasmaOrdered By: Reji Frausto on 10-29-2023 Calcium [Mass/Vol] 9.3 mg/dL Normal 8.6-10.3 [facility] Comment on above: Performed By: #### L IPID, CBC, HS TROP, BMP #### [place] [address] [place] Carbon dioxide, total [Moles /volume] in Serum or PlasmaOrdered By: Reji Frausto on 10-29-2023 CO2 [Moles/Vol] 24.3 mmol/L Normal 21.0-31.0 [facility] Comment on above: Performed By: #### L IPID, CBC, HS TROP, BMP #### [facility] [address] [place] [address] [place] Chloride [Moles/volume] in S carolyne or PlasmaOrdered By: Reji Frausto on 10-29-2023 Chloride [Moles/Vol] 109 mmol/L High 98-107 [facility] Comment on above: Performed By: #### L IPID, CBC, HS TROP, BMP #### [address] [place] [address] [place] Complete Blood Count Auto Di ffon 10-29-2023 Mean Corpuscular HGB Conc 33.9 g/dL Normal 32.0-35.0 [facility] Comment on above: Performed By: #### L IPID, CBC, HS TROP, BMP #### [facility] [address] NRBC% 0.1 /100{WBC} Normal 0-0.5 [facility] Comment on above: Performed By: #### L IPID, CBC, HS TROP, BMP #### [facility] [address] [place] [address] Creatinine [Mass/volume] in Serum or PlasmaOrdered By: Reji Frausto on 10-29-2023 Creatinine [Mass/Vol] 0.91 mg/dL Normal 0.60-1.20 [facility] Comment on above: Performed By: #### L IPID, CBC, HS TROP, BMP #### [address] ECG 12 lead ECGon 10-29-2023 ECG 12 lead ECG [facility] [place] [address] [place] [address] Electrocardiograph Report Signed Patient: Genny Barboza MR#: [id number] : 1940 Acct:[id number] Age/Sex: 83 / F ADM Date: 10/27/23 Loc: Room: [address] [place] [address] Type: DIS IN Attending Dr: Reji Frausto [...] Marilou Wilhelm DO 4 1855 Normal [facility] Erythrocyte distribution wid th [Ratio] by Automated countOrdered By: Reji Frausto on 10-29-2023 Erythrocyte distribution width (RBC) [Ratio] 13.8 % Normal 11.9-15.3 [facility] Comment on above: Performed By: #### L IPID, CBC, HS TROP, BMP #### [facility] [address] Erythrocytes [#/volume] in B lood by Automated countOrdered By: Reji Frausto on 10-29-2023 RBC (Bld) [#/Vol] 3.96 10*6/uL Normal 3.60-5.00 [facility] Comment on above: Performed By: #### L IPID, CBC, HS TROP, BMP #### [facility] [address] [place] [address] [place] Glucose [Mass/volume] in Ser um or PlasmaOrdered By: Reji Frausto on 10-29-2023 Glucose [Mass/Vol] 105 mg/dL High 70-100 [facility] Comment on above: ADA recommended refe rence rangeRandom Glucose Reference Range is dependent on time and content of last meal. Glucose of more than 200 mg/dL in a nonstressed, ambulatory subject supports the diagnosis of Diabetes Mellitus. Result Comment: [place] om Glucose Reference Range is dependent on time and content of last meal. Glucose of more than 200 mg/dL in a nonstressed, ambulatory subject supports the diagnosis of Diabetes Mellitus. ADA recommended reference range Performed By: #### L IPID, CBC, HS TROP, BMP #### [facility] [address] [place] [id number] [place] Hematocrit [Volume Fraction] of Blood by Automated countOrdered By: Reji Frausto on 10-29-2023 Hematocrit (Bld) [Volume fraction] 38.2 % Normal 34.0-46.4 [facility] Comment on above: Performed By: #### L IPID, CBC, HS TROP, BMP #### [facility] [address] [place] [address] Hemoglobin [Mass/volume] in BloodOrdered By: Reji Frausto on 10-29-2023 Hemoglobin (Bld) [Mass/Vol] 12.9 g/dL Normal 11.8-15.4 [facility] Comment on above: Performed By: #### L IPID, CBC, HS TROP, BMP #### [facility] [address] [place] [address] [place] Leukocytes [#/volume] correc kristi for nucleated erythrocytes in Blood by Automated counOrdered By: Reji Frausto on 10-29-2023 WBC corrected for nucl RBC Auto (Bld) [#/Vol] 8.1 10*3/uL 3.8-11.6 [facility] Leukocytes [#/volume] in Blo od by Automated countOrdered By: Reji Frausto on 10-29-2023 WBC (Bld) [#/Vol] 8.1 10*3/uL Normal 3.8-11.6 [facility] Comment on above: Performed By: #### L IPID, CBC, HS TROP, BMP #### [facility] [address] [place] [address] [place] Lymphocytes [#/volume] in Bl ood by Automated countOrdered By: Reji Frausto on 10-29-2023 Lymphocytes (Bld) [#/Vol] 1.3 10*3/uL Normal 1.00-4.8 [facility] Comment on above: Performed By: #### L IPID, CBC, HS TROP, BMP #### [facility] [address] [place] [address] [place] Lymphocytes/100 leukocytes i n Blood by Automated countOrdered By: Reji Frausto on 10-29-2023 Lymphocytes/100 WBC (Bld) 15.8 % Normal . [facility] Comment on above: Performed By: #### L IPID, CBC, HS TROP, BMP #### [facility] [address] [place] [address] [place] MCH [Entitic mass] by Automa kristi countOrdered By: Reji Frausto on 10-29-2023 MCH (RBC) [Entitic mass] 32.7 pg Normal 24.7-34.3 [facility] Comment on above: Performed By: #### L IPID, CBC, HS TROP, BMP #### [facility] [address] [place] [address] MCHC Auto (RBC) [Mass/Vol]Or dered By: Reji Frausto on 10-29-2023 MCHC (RBC) [Mass/Vol] 33.9 g/dL 32.0-35.0 [facility] MCV [Entitic volume] by Auto mated countOrdered By: Reji Frausto on 10-29-2023 MCV (RBC) [Entitic vol] 96.5 fL Normal 80-100 [facility] Comment on above: Performed By: #### L IPID, CBC, HS TROP, BMP #### [facility] [address] [place] [address] Neutrophils [#/volume] in Bl ood by Automated countOrdered By: Reji Frausto on 10-29-2023 Neutrophils (Bld) [#/Vol] 5.9 10*3/uL Normal 1.8-7.7 [facility] Comment on above: Performed By: #### L IPID, CBC, HS TROP, BMP #### [facility] [address] [place] [address] No Panel InformationOrdered By: Reji Frausto on 10-29-2023 Estimated GFR (CKD-EPI) > 60.0 mL/Min [facility] Creatinine Clearance (Chem 41.47 [facility] Nucleated erythrocytes [Pres ence] in Blood by Automated countOrdered By: Reji Frausto on 10-29-2023 Nucleated RBC Auto Ql (Bld) 0.1 /100{WBC} 0-0.5 [facility] Platelet mean volume [Entiti c volume] in Blood by Automated countOrdered By: Reji Frausto on 10-29-2023 Platelet mean volume (Bld) [Entitic vol] 8.0 fL Normal 6.3-10.7 [facility] Comment on above: Performed By: #### L IPID, CBC, HS TROP, BMP #### [facility] [address] [place] [address] [place] Platelets [#/volume] in Bloo d by Automated countOrdered By: Reji Frausto on 10-29-2023 Platelets (Bld) [#/Vol] 261 10*3/uL Normal 150-450 [facility] Comment on above: Performed By: #### L IPID, CBC, HS TROP, BMP #### [facility] [address] [place] [address] [place] Potassium [Moles/volume] in Serum or PlasmaOrdered By: Reji Frausto on 10-29-2023 Potassium [Moles/Vol] 4.0 mmol/L Normal 3.5-5.1 [facility] Comment on above: Performed By: #### L IPID, CBC, HS TROP, BMP #### [facility] [address] [place] [address] Serum or plasma anion gap de terminationOrdered By: Reji Frausto on 10-29-2023 Anion gap [Moles/Vol] 8.7 mmol/L Normal 6.0-15.0 [facility] Comment on above: Performed By: #### L IPID, CBC, HS TROP, BMP #### [facility] [address] [place] [address] [place] Sodium [Moles/volume] in Ser um or PlasmaOrdered By: Reji Frausto on 10-29-2023 Sodium [Moles/Vol] 138 mmol/L Normal 136-145 [facility] Comment on above: Performed By: #### L IPID, CBC, HS TROP, BMP #### [facility] [address] [place] [address] [place] Urea nitrogen [Mass/volume] in Serum or PlasmaOrdered By: Reji Frausto on 10-29-2023 Urea nitrogen [Mass/Vol] 17 mg/dL Normal 7-25 [facility] Comment on above: Performed By: #### L IPID, CBC, HS TROP, BMP #### [facility] [address] [place] [address] Basic Metabolic Panelon 08 Anion gap [Moles/Vol] 6.3 mmol/L Normal 6.0-15.0 [facility] Comment on above: Performed By: #### L IPID, CBC, HS TROP, BMP #### [facility] [address] Calcium [Mass/Vol] 9.3 mg/dL Normal 8.6-10.3 [facility] Comment on above: Performed By: #### L IPID, CBC, HS TROP, BMP #### [facility] [address] [place] [address] [place] Chloride [Moles/Vol] 112 mmol/L High 98-107 [facility] Comment on above: Performed By: #### L IPID, CBC, HS TROP, BMP #### [address] CO2 [Moles/Vol] 20.7 mmol/L Low 21.0-31.0 [facility] Comment on above: Performed By: #### L IPID, CBC, HS TROP, BMP #### [place] [address] [place] Creatinine [Mass/Vol] 0.85 mg/dL Normal 0.60-1.20 [facility] Comment on above: Performed By: #### L IPID, CBC, HS TROP, BMP #### [place] [address] [place] Creatinine Clr Calc Pharmacy 44.36 Normal [facility] Comment on above: Performed By: #### L IPID, CBC, HS TROP, BMP #### [place] [address] [place] GFR/1.73 sq M.predicted MDRD (S/P/Bld) [Vol rate/Area] mL/min/{1.73_m2} Normal [facility] Comment on above: Performed By: #### L IPID, CBC, HS TROP, BMP #### [address] Glucose [Mass/Vol] 104 mg/dL High 70-100 [facility] Comment on above: Result Comment: [place] Glucose Reference Range is dependent on time and content of last meal. Glucose of more than 200 mg/dL in a nonstressed, ambulatory subject supports the diagnosis of Diabetes Mellitus. ADA recommended reference range Performed By: #### L IPID, CBC, HS TROP, BMP #### [facility] [address] Potassium [Moles/Vol] 4.0 mmol/L Normal 3.5-5.1 [facility] Comment on above: Performed By: #### L IPID, CBC, HS TROP, BMP #### [facility] [address] [place] [address] [place] Sodium [Moles/Vol] 135 mmol/L Low 136-145 [facility] Comment on above: Performed By: #### L IPID, CBC, HS TROP, BMP #### [facility] [address] [place] [address] [place] Urea nitrogen [Mass/Vol] 17 mg/dL Normal 7-25 [facility] Comment on above: Performed By: #### L IPID, CBC, HS TROP, BMP #### [facility] [address] [place] [address] [place] Cholesterol [Mass/volume] in Serum or PlasmaOrdered By: Reji Frausto on 10-28-2023 Cholesterol [Mass/Vol] 241 mg/dL High 140-200 [facility] Comment on above: Chol less than 200 m g/dl low riskChol 201-239 mg/dl borderline riskChol 240 mg/dl and greater high risk Result Comment: Chol less than 200 mg/dl low risk Chol 201-239 mg/dl borderline risk Chol 240 mg/dl and greater high risk Performed By: #### L IPID, CBC, HS TROP, BMP #### [facility] [address] [place] [id number] [place] Cholesterol in LDL Calc [Mas s/Vol]Ordered By: Reji Frausto on 10-28-2023 Cholesterol in LDL [Mass/Vol] 108 mg/dL High 0-100 [facility] Comment on above: LDL ATP III CLASSIFI CATIONLDL less than 100 mg/dL OptimalLDL 100-129 mg/dL Near or above optimalLDL 130-159 mg/dL Borderline highLDL 160-189 mg/dL HighLDL greater than 189 mg/dL Very high Cholesterol in VLDL Calc [Ma ss/Vol]Ordered By: Reji Frausto on 10-28-2023 Cholesterol in VLDL [Mass/Vol] 20 mg/dL [facility] Complete Blood Count Auto Di ffon 10-28-2023 Basophils (Bld) [#/Vol] 0.1 10*3/uL Normal 0.0-0.2 [facility] Comment on above: Result Comment: PERF ORMED BY: [place] [address] PATHOLOGIST SENIOR INSPECTOR KAYLIN ARDON M.D. Performed By: #### L IPID, CBC, HS TROP, BMP #### [address] Basophils/100 WBC (Bld) 0.9 % Normal . [facility] Comment on above: Performed By: #### L IPID, CBC, HS TROP, BMP #### [address] Eosinophils (Bld) [#/Vol] 0.0 10*3/uL Normal 0.0-0.45 [facility] Comment on above: Performed By: #### L IPID, CBC, HS TROP, BMP #### [address] Eosinophils/100 WBC (Bld) 0.5 % Normal . [facility] Comment on above: Performed By: #### L IPID, CBC, HS TROP, BMP #### [address] Erythrocyte distribution width (RBC) [Ratio] 13.7 % Normal 11.9-15.3 [facility] Comment on above: Performed By: #### L IPID, CBC, HS TROP, BMP #### [address] Hematocrit (Bld) [Volume fraction] 37.9 % Normal 34.0-46.4 [facility] Comment on above: Performed By: #### L IPID, CBC, HS TROP, BMP #### [address] Hemoglobin (Bld) [Mass/Vol] 12.7 g/dL Normal 11.8-15.4 [facility] Comment on above: Performed By: #### L IPID, CBC, HS TROP, BMP #### [address] Lymphocytes (Bld) [#/Vol] 1.7 10*3/uL Normal 1.00-4.8 [facility] Comment on above: Performed By: #### L IPID, CBC, HS TROP, BMP #### [address] Lymphocytes/100 WBC (Bld) 20.4 % Normal . [facility] Comment on above: Performed By: #### L IPID, CBC, HS TROP, BMP #### [address] MCH (RBC) [Entitic mass] 32.6 pg Normal 24.7-34.3 [facility] Comment on above: Performed By: #### L IPID, CBC, HS TROP, BMP #### [address] MCV (RBC) [Entitic vol] 97.0 fL Normal 80-100 [facility] Comment on above: Performed By: #### L IPID, CBC, HS TROP, BMP #### [address] Mean Corpuscular HGB Conc 33.5 g/dL Normal 32.0-35.0 [facility] Comment on above: Performed By: #### L IPID, CBC, HS TROP, BMP #### [address] Monocytes (Bld) [#/Vol] 0.9 10*3/uL High 0.0-0.8 [facility] Comment on above: Performed By: #### L IPID, CBC, HS TROP, BMP #### [address] Monocytes/100 WBC (Bld) 10.2 % Normal . [facility] Comment on above: Performed By: #### L IPID, CBC, HS TROP, BMP #### [facility] [address] [place] [address] Neutrophils (Bld) [#/Vol] 5.7 10*3/uL Normal 1.8-7.7 [facility] Comment on above: Performed By: #### L IPID, CBC, HS TROP, BMP #### [place] [address] [place] Neutrophils/100 WBC (Bld) 68.0 % Normal . [facility] Comment on above: Performed By: #### L IPID, CBC, HS TROP, BMP #### [facility] [address] [place] [address] NRBC% 0.1 /100{WBC} Normal 0-0.5 [facility] Comment on above: Performed By: #### L IPID, CBC, HS TROP, BMP #### [address] Platelet mean volume (Bld) [Entitic vol] 7.7 fL Normal 6.3-10.7 [facility] Comment on above: Performed By: #### L IPID, CBC, HS TROP, BMP #### [place] [address] [place] Platelets (Bld) [#/Vol] 254 10*3/uL Normal 150-450 [facility] Comment on above: Performed By: #### L IPID, CBC, HS TROP, BMP #### [facility] [address] [place] [address] [place] RBC (Bld) [#/Vol] 3.90 10*6/uL Normal 3.60-5.00 [facility] Comment on above: Performed By: #### L IPID, CBC, HS TROP, BMP #### [place] [address] [place] WBC (Bld) [#/Vol] 8.4 10*3/uL Normal 3.8-11.6 [facility] Comment on above: Performed By: #### L IPID, CBC, HS TROP, BMP #### [place] [id number] [facility] ECG 12 lead ECGon 10-28-2023 ECG 12 lead ECG [facility] [place] [address] Electrocardiograph Report Signed Patient: Genny Barboza MR#: [id number] : 1940 Acct:[id number] Age/Sex: 83 / F ADM Date: 10/27/23 Loc: Room: [address] [place] [address] Type: DIS IN Attending Dr: Reji Frausto [...] Marilou Wilhelm DO 4 1836 Normal [facility] ECG 12 lead ECG [facility] [place] [address] Electrocardiograph Report Signed Patient: Genny aBrboza MR#: [id number] : 1940 Acct:[id number] Age/Sex: 83 / F ADM Date: 10/27/23 Loc: Room: [address] [place] [address] Type: DIS IN Attending Dr: Reji Frausto [...] are now present Confirmed by Lorenzo Mora ([id number]) on 11/07/2023 10:40:27 AM Referred By: Electronically Signed By: Lorenzo Mora Transcribed By: MUS Signed By Lorenzo Mora MD 11/07/23 1040 Normal [facility] echo transthoracicon [facility] echo transthoracic [facility] [place] [address] Echocardiogram Signed Patient: Genny Barboza MR#: [id number] : 1940 Acct:[id number] Age/Sex: 83 / F ADM Date: 10/27/23 Loc: Room: [address] [place] [address] Type: ADM IN Attending Dr: Reji Frausto DO Ordering Provider: Reji Frausto DO Date of Service: 10/28/2308/15/499 [facility] echo transthoracic: Acute inferior STEMI Copies to: [...] By: Marilou Wilhelm, 10/28/23 1843 Normal [facility] Lipid Panelon 10-28-2023 LDL Cholesterol,Calculated 108 mg/dL High 0-100 [facility] Comment on above: Result Comment: LDL ATP III CLASSIFICATION LDL less than 100 mg/dL Optimal LDL 100-129 mg/dL Near or above optimal LDL 130-159 mg/dL Borderline high LDL 160-189 mg/dL High LDL greater than 189 mg/dL Very high Performed By: #### L IPID, CBC, HS TROP, BMP #### [facility] [address] Triglyceride w/Reflex 103 mg/dL Normal 0-149 [facility] Comment on above: Result Comment: TRIG ATP III CLASSIFICATION TRIG less than 150 mg/dL Normal TRIG 150-199 mg/dL Borderline high TRIG 200-500 mg/dL High TRIG greater than 500 mg/dL Very high Standard traceable to the Center for Disease Conrtrol and Prevention (CDC) test method. Performed By: #### L IPID, CBC, HS TROP, BMP #### [address] VLDL CHOLESTEROL 20 mg/dL Normal [facility] Comment on above: Performed By: #### L IPID, CBC, HS TROP, BMP #### [address] Serum or plasma high density lipoprotein (HDL) cholesterol measurementOrdered By: Reji Frasuto on 10-28-2023 Cholesterol in HDL [Mass/Vol] 112 mg/dL High 23- [facility] Comment on above: HDL CHOL ATP-III CLA SSIFICATION Cardiovascular RiskHDL > or equal to 60 mg/dL LOWHDL < 40 mg/dL HIGH Result Comment: HDL CHOL ATP-III CLASSIFICATION Cardiovascular Risk HDL > or equal to 60 mg/dL LOW HDL < 40 mg/dL HIGH Performed By: #### L IPID, CBC, HS TROP, BMP #### [address] Serum or plasma total choles terol/high density lipoprotein (HDL) cholesterol mass ratOrdered By: Reji Frausto on 10-28-2023 Cholesterol.total/Chol esterol in HDL [Mass ratio] 2.2 {ratio} Normal <5.0 [facility] Comment on above: Result Comment: PERF ORMED BY: [place] [address] PATHOLOGIST SENIOR INSPECTOR KAYLIN ARDON M.D. Performed By: #### L IPID, CBC, HS TROP, BMP #### [address] Triglyceride [Mass/volume] i n Serum or PlasmaOrdered By: Reji Frausto on 10-28-2023 Triglyceride [Mass/Vol] 103 mg/dL 0-149 [facility] Comment on above: TRIG ATP III CLASSIF ICATIONTRIG less than 150 mg/dL NormalTRIG 150-199 mg/dL Borderline highTRIG 200-500 mg/dL High TRIG greater than 500 mg/dL Very highStandard traceable to the Center for Disease Conrtrol and Prevention (CDC) test method. Troponin I High Sensitivityo n 10-28-2023 Troponin I High Sensitivity 43625.4 pg/mL Off scale high 0.0-15.0 [facility] Comment on above: Result Comment: Crit ical Result : Called to and read back by: ELLA SCOTT at: 10/28/2023 05:06:20 by:[id number] PERFORMED BY: [place] [id number] PATHOLOGIST SENIOR INSPECTOR KAYLIN ARDON M.D. Performed By: #### L IPID, CBC, HS TROP, BMP #### [facility] [address] [place] [address] Troponin I High Sensitivity 42347.0 pg/mL Off scale high 0.0-15.0 [facility] Comment on above: Result Comment: Crit ical Result : Called to and read back by: ELLA SCOTT at: 10/28/2023 02:47:34 by:[id number] PERFORMED BY: [place] [address] PATHOLOGIST SENIOR INSPECTOR KAYLIN ARDON M.D. Performed By: #### H S TROP #### [address] Troponin I.cardiac [Mass/vol ume] in Serum or Plasma by Detection limit <= 0.01 ng/Ordered By: Reji Frausto on 10-28-2023 Troponin I.cardiac DL <= 0.01 ng/mL [Mass/Vol] 32174.4 pg/mL High 0.0-15.0 [facility] Comment on above: Critical Result : Ca lled to and read back by: ELLA SCOTT at: 10/28/2023 05:06:20 by:[id number] Activated partial thrombopla stin time (aPTT) in platelet poor plasma by coagulation aOrdered By: Doe Álvarez on 10-27-2023 aPTT Coag (PPP) [Time] 23.1 s Low 25.1-36.5 [facility] Comment on above: A hematocrit value g reater than 55% may lead to inaccurate results in coagulation testing. Patients having hematocrit values >55% require a special collection tube for coagulation studies. Please contact the laboratory at [phone] for redraw instructions. Alanine aminotransferase [En zymatic activity/volume] in Serum or PlasmaOrdered By: Doe Álvarez on 10-27-2023 ALT [Catalytic activity/Vol] 36 U/L Normal 7-52 [facility] Comment on above: Performed By: #### L IPID, CBC, HS TROP, BMP #### [facility] [address] [place] [address] [place] Albumin [Mass/volume] in Ser um or Plasma by Bromocresol green (BCG) dye binding methoOrdered By: Doe Álvarez on 10-27-2023 Albumin BCG dye [Mass/Vol] 4.4 g/dL 3.5-5.7 [facility] Alkaline phosphatase [Enzyma tic activity/volume] in Serum or PlasmaOrdered By: Doe Álvarez on 10-27-2023 ALP [Catalytic activity/Vol] 86 U/L Normal 34-104 [facility] Comment on above: Performed By: #### L IPID, CBC, HS TROP, BMP #### [facility] [address] [place] [address] [place] Aspartate aminotransferase [ Enzymatic activity/volume] in Serum or PlasmaOrdered By: Doe Álvarez on 10-27-2023 AST [Catalytic activity/Vol] 60 U/L High 13-39 [facility] Comment on above: Performed By: #### L IPID, CBC, HS TROP, BMP #### [facility] [address] [place] [address] [place] Automated basophil %Ordered By: Doe Álvarez on 10-27-2023 Basophils/100 WBC (Bld) 1.3 % Normal . [facility] Comment on above: Performed By: #### L IPID, CBC, HS TROP, BMP #### [facility] [address] [place] [address] [place] Automated basophil countOrde red By: Doe Álvarez on 10-27-2023 Basophils (Bld) [#/Vol] 0.1 10*3/uL Normal 0.0-0.2 [facility] Comment on above: Result Comment: PERF ORMED BY: [place] [address] PATHOLOGIST SENIOR INSPECTOR KAYLIN ARDON M.D. Performed By: #### L IPID, CBC, HS TROP, BMP #### [address] Automated blood monocyte cou ntOrdered By: Doe Álvarez on 10-27-2023 Monocytes (Bld) [#/Vol] 0.7 10*3/uL Normal 0.0-0.8 [facility] Comment on above: Performed By: #### L IPID, CBC, HS TROP, BMP #### [address] Automated eosinophil %Ordere d By: Doe Álvarez on 10-27-2023 Eosinophils/100 WBC (Bld) 0.7 % Normal . [facility] Comment on above: Performed By: #### L IPID, CBC, HS TROP, BMP #### [address] Automated eosinophil countOr dered By: Doe Álvarez on 10-27-2023 Eosinophils (Bld) [#/Vol] 0.1 10*3/uL Normal 0.0-0.45 [facility] Comment on above: Performed By: #### L IPID, CBC, HS TROP, BMP #### [address] Automated monocyte %Ordered By: Doe Álvarez on 10-27-2023 Monocytes/100 WBC (Bld) 8.7 % Normal . [facility] Comment on above: Performed By: #### L IPID, CBC, HS TROP, BMP #### [address] Automated neutrophil %Ordere d By: Doe Álvarez on 10-27-2023 Neutrophils/100 WBC (Bld) 63.6 % Normal . [facility] Comment on above: Performed By: #### L IPID, CBC, HS TROP, BMP #### [facility] [address] [place] [address] BNP ser/plasOrdered By: Nasreen Álvarez on 10-27-2023 Natriuretic peptide B (Bld) [Mass/Vol] 124.0 pg/mL High 5-100 [facility] Comment on above: Result Comment: PERF ORMED BY: [place] [address] PATHOLOGIST SENIOR INSPECTOR KAYLIN ARDON M.D. Performed By: #### L IPID, CBC, HS TROP, BMP #### [address] Bilirubin.total [Mass/volume ] in Serum or PlasmaOrdered By: Doe Álvarez on 10-27-2023 Bilirubin [Mass/Vol] 0.7 mg/dL Normal 0.3-1.0 [facility] Comment on above: Performed By: #### L IPID, CBC, HS TROP, BMP #### [facility] [address] [place] [address] Calcium [Mass/volume] in Ser um or PlasmaOrdered By: Doe Álvarez on 10-27-2023 Calcium [Mass/Vol] 10.0 mg/dL Normal 8.6-10.3 [facility] Comment on above: Performed By: #### L IPID, CBC, HS TROP, BMP #### [facility] [address] [place] [address] Carbon dioxide, total [Moles /volume] in Serum or PlasmaOrdered By: Doe Álvarez on 10-27-2023 CO2 [Moles/Vol] 21.0 mmol/L Normal 21.0-31.0 [facility] Comment on above: Performed By: #### L IPID, CBC, HS TROP, BMP #### [facility] [address] [place] [address] [place] Chloride [Moles/volume] in S carolyne or PlasmaOrdered By: Doe Álvarez on 10-27-2023 Chloride [Moles/Vol] 107 mmol/L Normal 98-107 [facility] Comment on above: Performed By: #### L IPID, CBC, HS TROP, BMP #### [address] Complete Blood Count Auto Di ffon 10-27-2023 Mean Corpuscular HGB Conc 34.1 g/dL Normal 32.0-35.0 [facility] Comment on above: Performed By: #### L IPID, CBC, HS TROP, BMP #### [address] Monocytes/100 WBC (Bld) 20.20 % High 0.00-20.00 [facility] Comment on above: Result Comment: For adults in ED, MDW > 20.0 may be associated with a higher risk of sepsis during the first 12 hrs of hospital admission Performed By: #### L IPID, CBC, HS TROP, BMP #### [address] NRBC% 0.1 /100{WBC} Normal 0-0.5 [facility] Comment on above: Performed By: #### L IPID, CBC, HS TROP, BMP #### [address] Comprehensive Metabolic Pane marianela 10-27-2023 Albumin [Mass/Vol] 4.4 g/dL Normal 3.5-5.7 [facility] Comment on above: Performed By: #### L IPID, CBC, HS TROP, BMP #### [address] Creatinine Clr Calc Pharmacy 35.04 Normal [facility] Comment on above: Result Comment: PERF ORMED BY: [place] [address] PATHOLOGIST SENIOR INSPECTOR KAYLIN ARDON M.D. Performed By: #### L IPID, CBC, HS TROP, BMP #### [address] GFR/1.73 sq M.predicted MDRD (S/P/Bld) [Vol rate/Area] 52.124 mL/min/{1.73_m2} Normal [facility] Comment on above: Performed By: #### L IPID, CBC, HS TROP, BMP #### [facility] [address] [place] [address] [place] Creatine kinase [Enzymatic a ctivity/volume] in Serum or PlasmaOrdered By: Doe Álvarez on 10-27-2023 CK [Catalytic activity/Vol] 74 U/L Normal 30-223 [facility] Comment on above: Performed By: #### L IPID, CBC, HS TROP, BMP #### [facility] [address] Creatinine [Mass/volume] in Serum or PlasmaOrdered By: Doe Álvarez on 10-27-2023 Creatinine [Mass/Vol] 1.06 mg/dL Normal 0.60-1.20 [facility] Comment on above: Performed By: #### L IPID, CBC, HS TROP, BMP #### [facility] [address] ECG 12 lead ECGon 10-27-2023 ECG 12 lead ECG [facility] [place] [address] [place] [address] Electrocardiograph Report Signed Patient: Genny Barboza MR#: [id number] : 1940 Acct:[id number] Age/Sex: 83 / F ADM Date: 10/27/23 Loc: Room: [address] [place] [address] Type: DIS IN Attending Dr: Reji Frausto [...] By Marilou Wilhelm DO 1831 Normal [facility] ECG 12 lead ECG [facility] [place] [address] [place] [address] Electrocardiograph Report Signed Patient: Genny Barboza MR#: [id number] : 1940 Acct:[id number] Age/Sex: 83 / F ADM Date: 10/27/23 Loc: Room: [address] [place] [address] Type: ADM IN Attending Dr: Reji Frausto [...] consider inferolateral injury or acute infarct ACUTE OK / STEMI Consider right ventricular involvement in acute inferior infarct Abnormal ECG No previous ECGs available Confirmed by ANAYELI DAVE MD ([id number]) on 10/27/2023 7:16:42 PM Referred By: Electronically Signed By: ANAYELI DAVE MD Transcribed By: MUS Signed By Anayeli Dave MD 10/27/23 191 Normal [facility] Erythrocyte distribution wid th [Ratio] by Automated countOrdered By: Doe Álvarez on 10-27-2023 Erythrocyte distribution width (RBC) [Ratio] 14.0 % Normal 11.9-15.3 [facility] Comment on above: Performed By: #### L IPID, CBC, HS TROP, BMP #### [facility] [address] [place] [address] [place] Erythrocytes [#/volume] in B lood by Automated countOrdered By: Doe Álvarez on 10-27-2023 RBC (Bld) [#/Vol] 4.45 10*6/uL Normal 3.60-5.00 [facility] Comment on above: Performed By: #### L IPID, CBC, HS TROP, BMP #### [facility] [address] Glucose [Mass/volume] in Ser um or PlasmaOrdered By: Doe Álvarez on 10-27-2023 Glucose [Mass/Vol] 166 mg/dL High 70-100 [facility] Comment on above: ADA recommended refe rence rangeRandom Glucose Reference Range is dependent on time and content of last meal. Glucose of more than 200 mg/dL in a nonstressed, ambulatory subject supports the diagnosis of Diabetes Mellitus. Result Comment: [place] om Glucose Reference Range is dependent on time and content of last meal. Glucose of more than 200 mg/dL in a nonstressed, ambulatory subject supports the diagnosis of Diabetes Mellitus. ADA recommended reference range Performed By: #### L IPID, CBC, HS TROP, BMP #### [facility] [address] [place] [address] Hematocrit [Volume Fraction] of Blood by Automated countOrdered By: Doe Álvarez on 10-27-2023 Hematocrit (Bld) [Volume fraction] 42.6 % Normal 34.0-46.4 [facility] Comment on above: Performed By: #### L IPID, CBC, HS TROP, BMP #### [facility] [address] [place] [address] Hemoglobin [Mass/volume] in BloodOrdered By: Doe Álvarez on 10-27-2023 Hemoglobin (Bld) [Mass/Vol] 14.5 g/dL Normal 11.8-15.4 [facility] Comment on above: Performed By: #### L IPID, CBC, HS TROP, BMP #### [facility] [address] [place] [address] INR in Platelet poor plasma by Coagulation assayOrdered By: Doe Álavrez on 10-27-2023 INR Coag (PPP) [Relative time] 0.9 {INR} Normal [facility] Comment on above: INR Therapeutic Rang e [...] L IPID, CBC, HS TROP, BMP #### [facility] [address] [place] [id number] [place] Leukocytes [#/volume] correc kristi for nucleated erythrocytes in Blood by Automated counOrdered By: Doe Álvarez on 10-27-2023 WBC corrected for nucl RBC Auto (Bld) [#/Vol] 8.6 10*3/uL 3.8-11.6 [facility] Leukocytes [#/volume] in Blo od by Automated countOrdered By: Doe Álvarez on 10-27-2023 WBC (Bld) [#/Vol] 8.6 10*3/uL Normal 3.8-11.6 [facility] Comment on above: Performed By: #### L IPID, CBC, HS TROP, BMP #### [facility] [address] [place] [address] [place] Lymphocytes [#/volume] in Bl ood by Automated countOrdered By: Doe Álvarez on 10-27-2023 Lymphocytes (Bld) [#/Vol] 2.2 10*3/uL Normal 1.00-4.8 [facility] Comment on above: Performed By: #### L IPID, CBC, HS TROP, BMP #### [facility] [address] [place] [id number] [place] Lymphocytes/100 leukocytes i n Blood by Automated countOrdered By: Doe Álvarez on 10-27-2023 Lymphocytes/100 WBC (Bld) 25.7 % Normal . [facility] Comment on above: Performed By: #### L IPID, CBC, HS TROP, BMP #### [facility] [address] [place] [id number] [place] MCH [Entitic mass] by Automa kristi countOrdered By: Doe Álvarez on 10-27-2023 MCH (RBC) [Entitic mass] 32.6 pg Normal 24.7-34.3 [facility] Comment on above: Performed By: #### L IPID, CBC, HS TROP, BMP #### [facility] [address] [place] [address] MCHC Auto (RBC) [Mass/Vol]Or dered By: Doe Álvarez on 10-27-2023 MCHC (RBC) [Mass/Vol] 34.1 g/dL 32.0-35.0 [facility] MCV [Entitic volume] by Auto mated countOrdered By: Doe Álvarez on 10-27-2023 MCV (RBC) [Entitic vol] 95.7 fL Normal 80-100 [facility] Comment on above: Performed By: #### L IPID, CBC, HS TROP, BMP #### [facility] [address] [place] [address] Monocyte distribution width [Entitic volume] in Blood by AutomatedOrdered By: Doe Álvarez on 10-27-2023 Monocyte distribution width Auto (Bld) [Entitic vol] 20.20 % High 0.00-20.00 [facility] Comment on above: For adults in ED, MD W > 20.0 may be associated with a higher risk of sepsis during the first 12 hrs of hospital admission Neutrophils [#/volume] in Bl ood by Automated countOrdered By: Doe Álvarez on 10-27-2023 Neutrophils (Bld) [#/Vol] 5.5 10*3/uL Normal 1.8-7.7 [facility] Comment on above: Performed By: #### L IPID, CBC, HS TROP, BMP #### [facility] [address] [place] [address] No Panel InformationOrdered By: Doe Álvarez on 10-27-2023 Estimated GFR (CKD-EPI) 52.124 mL/Min [facility] Creatinine Clearance (Chem 35.04 [facility] Nucleated erythrocytes [Pres ence] in Blood by Automated countOrdered By: Doe Álvarez on 10-27-2023 Nucleated RBC Auto Ql (Bld) 0.1 /100{WBC} 0-0.5 [facility] Partial Thromboplastin Timeo n 10-27-2023 aPTT Coag (Bld) [Time] 23.1 s Low 25.1-36.5 [facility] Comment on above: Result Comment: A he matocrit value greater than 55% may lead to inaccurate results in coagulation testing. Patients having hematocrit values >55% require a special collection tube for coagulation studies. Please contact the laboratory at [phone] for redraw instructions. PERFORMED BY: [place] [address] PATHOLOGIST SENIOR INSPECTOR KAYLIN ARDON M.D. Performed By: #### L IPID, CBC, HS TROP, BMP #### [place] [address] [place] Platelet mean volume [Entiti c volume] in Blood by Automated countOrdered By: Doe Álvarez on 10-27-2023 Platelet mean volume (Bld) [Entitic vol] 7.7 fL Normal 6.3-10.7 [facility] Comment on above: Performed By: #### L IPID, CBC, HS TROP, BMP #### [facility] [address] [place] [address] [place] Platelets [#/volume] in Bloo d by Automated countOrdered By: Doe Álvarez on 10-27-2023 Platelets (Bld) [#/Vol] 294 10*3/uL Normal 150-450 [facility] Comment on above: Performed By: #### L IPID, CBC, HS TROP, BMP #### [facility] [address] [place] [address] [place] Potassium [Moles/volume] in Serum or PlasmaOrdered By: Doe Álvarez on 10-27-2023 Potassium [Moles/Vol] 3.7 mmol/L Normal 3.5-5.1 [facility] Comment on above: Performed By: #### L IPID, CBC, HS TROP, BMP #### [place] [address] [place] Protein [Mass/volume] in Ser um or PlasmaOrdered By: Doe Álvarez on 10-27-2023 Protein [Mass/Vol] 7.1 g/dL Normal 6.4-8.9 [facility] Comment on above: Performed By: #### L IPID, CBC, HS TROP, BMP #### [address] Prothrombin time (PT)Ordered By: Doe Álvarez on 10-27-2023 PT Coag (PPP) [Time] 10.7 s Normal 9.0-12.9 [facility] Comment on above: A hematocrit value g reater than 55% may lead to inaccurate results in coagulation testing. Patients having hematocrit values >55% require a special collection tube for coagulation studies. Please contact the laboratory at [phone] for redraw instructions. Result Comment: A he matocrit value greater than 55% may lead to inaccurate results in coagulation testing. Patients having hematocrit values >55% require a special collection tube for coagulation studies. Please contact the laboratory at [phone] for redraw instructions. Performed By: #### L IPID, CBC, HS TROP, BMP #### [address] Serum globulin measurement b y calculation (mass/volume)Ordered By: Doe Álvarez on 10-27-2023 Globulin (S) [Mass/Vol] 2.7 g/dL [facility] Comment on above: Performed By: #### L IPID, CBC, HS TROP, BMP #### [address] Serum or plasma albumin/glob ulin mass ratioOrdered By: Doe Álvarez on 10-27-2023 Albumin/Globulin [Mass ratio] 1.6 {ratio} [facility] Comment on above: Performed By: #### L IPID, CBC, HS TROP, BMP #### [address] Serum or plasma anion gap de terminationOrdered By: Doe Álvarez on 10-27-2023 Anion gap [Moles/Vol] 13.7 mmol/L Normal 6.0-15.0 [facility] Comment on above: Performed By: #### L IPID, CBC, HS TROP, BMP #### [place] [address] [place] Sodium [Moles/volume] in Ser um or PlasmaOrdered By: Doe Álvarez on 10-27-2023 Sodium [Moles/Vol] 138 mmol/L Normal 136-145 [facility] Comment on above: Performed By: #### L IPID, CBC, HS TROP, BMP #### [facility] [address] [place] [address] [place] Troponin I High Sensitivityo n 10-27-2023 Troponin I High Sensitivity 22764.9 pg/mL Off scale high 0.0-15.0 [facility] Comment on above: Order Comment: pleas e collect at 2350 Result Comment: Crit ical Result : Called to and read back by: DELIA LOZANO at: 10/28/2023 00:06:21 by:[id number] PERFORMED BY: [place] [address] PATHOLOGIST SENIOR INSPECTOR KAYLIN ARDON M.D. Performed By: #### L IPID, CBC, HS TROP, BMP #### [place] [address] [place] Troponin I High Sensitivity 75722.3 pg/mL Off scale high 0.0-15.0 [facility] Comment on above: Order Comment: pleas e collect at 2150 Result Comment: Crit ical Result : Called to and read back by: ELLA SCOTT at: 10/27/2023 23:27:11 by:[id number] PERFORMED BY: [place] [address] PATHOLOGIST SENIOR INSPECTOR KAYLIN ARDON M.D. Performed By: #### L IPID, CBC, HS TROP, BMP #### [place] [address] [place] Troponin I High Sensitivity 6295.7 pg/mL Off scale high 0.0-15.0 [facility] Comment on above: Result Comment: Crit ical Result : Called to and read back by: MONET CONNORS at: 10/27/2023 21:58:31 by:[id number] PERFORMED BY: [place] [address] PATHOLOGIST SENIOR INSPECTOR KAYLIN ARDON M.D. Performed By: #### L IPID, CBC, HS TROP, BMP #### [facility] [address] [place], [place] [id number] [facility] Troponin I High Sensitivity 10.2 pg/mL Normal 0.0-15.0 [facility] Comment on above: Result Comment: PERF ORMED BY: [place] [address] PATHOLOGIST SENIOR INSPECTOR KAYLIN ARDON M.D. Performed By: #### L IPID, CBC, HS TROP, BMP #### [facility] [address] [place] [address] Troponin I.cardiac [Mass/vol ume] in Serum or Plasma by Detection limit <= 0.01 ng/Ordered By: Doe Álvarez on 10-27-2023 Troponin I.cardiac DL <= 0.01 ng/mL [Mass/Vol] 10.2 pg/mL 0.0-15.0 [facility] Urea nitrogen [Mass/volume] in Serum or PlasmaOrdered By: Doe Álvarez on 10-27-2023 Urea nitrogen [Mass/Vol] 17 mg/dL Normal 7-25 [facility] Comment on above: Performed By: #### L IPID, CBC, HS TROP, BMP #### [facility] [address] [place], [place] [address] [facility] XR chest 1V portableon 10-26 XR chest 1V portable [facility] Main [place] [id number] XRay Report Signed Patient: Genny Barboza MR#: [id number] : 1940 Acct:[id number] Age/Sex: 83 / F ADM Date: 10/27/23 Loc: Room: Type: [facility] Attending Dr: Reji Frausto DO Copies to: [...] Antonio Martinez M.D.10/27/2023 5:41 PM Dictation Location: [place] [address] Transcribed By: [facility] 10/27/231740 Dictated By: Juan Antonio Martinez DO 10/27/23 173 Signed By: 10/27/231740 Normal [facility] 07-25-2023 L Specimen: [id number] Received: 07/25/23 Status: WILLIAM [place] Num: [id number] Spec Type: Surgical Subm Dr: Sylvester Monk MD Tissues: A Colon Biopsy (RANDOM COLON BX) Procedures: HE/2, Gross/Micro L4 Age/ Patient Sex Location Account Attending Physician Genny Barboza E 82/F [id number] Sylvester Monk MD SPEC NUM: [id number] RECD: 07/25/23 STATUS: WILLIAM [place] NUM: [id number] YAMILKA: 07/25/23- SUBM DR: Sylvester Monk MD ENTERED: 07/25/[address] [facility] [address]: SPEC TYPE: Surgical DEPT: S ORDERED: [...] history, change in bowel habits. CPT Codes 73740 Specimen: [id number] Received: 07/25/23-1016 Status: DIMITRIConnei Haim Num: [id number] Spec Type: Surgical Subm Dr: Sylvester Monk MD Tissues: A Colon Biopsy (RANDOM COLON BX) Procedures: TAMELA/Eufemia, Gross/Radhika L4 Patient: BarbozaGenny [id number] (Continued) Signed (signature on file) Kalpana Benavides MD 07/26/23 1240 Normal [facility] Capillary blood glucose cata urement by glucometer (mass/volume)Ordered By: Branden Du on 05-06-2023 Glucose [Mass/Vol] 93 mg/dL Normal [facility] Comment on above: Random Glucose Refer ence Range is dependent on time and content of last meal. Glucose of more than 200 mg/dL in a nonstressed, ambulatory subject supports the diagnosis of Diabetes Mellitus. Result Comment: [place] om Glucose Reference Range is dependent on time and content of last meal. Glucose of more than 200 mg/dL in a nonstressed, ambulatory subject supports the diagnosis of Diabetes Mellitus. PERFORMED BY: [place] [address] PATHOLOGIST SENIOR INSPECTOR KAYLIN ARDON M.D. Performed By: #### L IPID, CBC, HS TROP, BMP #### [address] PET tumor init tx strat sb-m ton 05-06-2023 PET tumor init tx strat sb-mt [facility] [place] [address] [place] [address] Nuclear Medicine Report Signed Patient: Genny Barboza MR#: [id number] : 1940 Acct:[id number] Age/Sex: 82 / F ADM Date: 05/06/23 Loc: Room: Type: [facility] Attending Dr: Branden Du DO Copies [...] D.OValentin05/06/2023 1:35 PM Dictation Location: [place] [address] Transcribed By: [facility] 05/06/23 1335 Dictated By: Reginaldo Rivas Jr, DO 05/06/23 1326 Signed By: 05/06/23 1335 Normal [facility] Urinalysis - DIPSTICKon 06-0 Appearance (U) clear [employer] Other Bilirubin Ql (U) Negative [employer] Other Color (U) light yellow [employer] Other Glucose Ql (U) Negative [employer] Other Hemoglobin Ql (U) Negative [employer] Other Ketones Ql (U) Negative [employer] Other Leukocyte esterase Test strip Ql (U) Negative [employer] Other Nitrite Ql (U) Negative [employer] Other pH (U) 5.0 [pH] [employer] Other Protein Ql (U) Negative [employer] Other Specific gravity (U) [Rel density] 1.005 [employer] Other Urobilinogen (U) [Mass/Vol] 0.5 mg/dL [employer] Other Urinalysis - DIPSTICK Nor [employer] Other CBC AUTO DIFFon 05-21-2022 BASO # 0.0 103/ul Normal 0.0-0.1 [facility] Comment on above: Performed By: #### C BC #### [facility] [address] [place] [address] Dr. Arlyn Chan Basophils/100 WBC (Bld) 0.6 % Normal 0.2-2.0 [facility] Comment on above: Performed By: #### C BC #### [facility] [address] [place] [address] Dr. Arlyn Chan EO # 0.1 103/ul Normal 0.0-0.7 [facility] Comment on above: Performed By: #### C BC #### [facility] [address] [place] [address] Dr. Arlyn Chan Eosinophils/100 WBC (Bld) 1.1 % Normal 0.9-7.0 [facility] Comment on above: Performed By: #### C BC #### [facility] [address] [place] [address] Dr. Arlyn Chan Erythrocyte distribution width (RBC) [Ratio] 13.6 % Normal 11.0-15.0 [facility] Comment on above: Performed By: #### C BC #### [facility] [address] [place] [address] Dr. Arlyn Chan Hematocrit (Bld) [Volume fraction] 44.3 % Normal 36.0-48.0 [facility] Comment on above: Performed By: #### C BC #### [facility] [address] [place] [address] Dr. Arlyn Chan Hemoglobin (Bld) [Mass/Vol] 14.8 g/dL Normal 12.0-16.0 [facility] Comment on above: Performed By: #### C BC #### [facility] [address] [place] [address] Dr. Arlyn Chan IG # 0.00 10e3/ul Normal 0.00-0.03 [facility] Comment on above: Performed By: #### C BC #### [facility] [address] [place] [address] Dr. Arlyn Chan IG % 0.0 % Normal 0.0-0.5 [facility] Comment on above: Performed By: #### C BC #### [facility] [address] [place] [address] Dr. Arlyn Chan LYMPH # 1.7 103/ul Normal 1.2-3.8 [facility] Comment on above: Performed By: #### C BC #### [facility] [address] [place] [address] Dr. Arlyn Chan Lymphocytes/100 WBC (Bld) 31.1 % Normal 20.5-60.0 [facility] Comment on above: Performed By: #### C BC #### [facility] [address] [place] [address] Dr. Arlyn Chan MANUAL DIFF REQ NO Normal [facility] Comment on above: Performed By: #### C BC #### [facility] [address] [place] [address] Dr. Arlyn Chan MCH (RBC) [Entitic mass] 31.9 pg Normal 26.7-34.0 [facility] Comment on above: Performed By: #### C BC #### [facility] [address] [place] [address] Dr. Arlyn Chan MCHC (RBC) [Mass/Vol] 33.4 g/dL Normal 29.9-35.2 [facility] Comment on above: Performed By: #### C BC #### [facility] [address] [place] [address] Dr. Arlyn Chan MCV (RBC) [Entitic vol] 95.5 fL Normal 81.0-99.0 [facility] Comment on above: Performed By: #### C BC #### [facility] [address] [place] [address] Dr. Arlyn Chan MONO # 0.5 103/ul Normal 0.3-0.8 [facility] Comment on above: Performed By: #### C BC #### [facility] [address] [place] [address] Dr. Arlyn Chan Monocytes/100 WBC (Bld) 8.8 % Normal 1.7-12.0 [facility] Comment on above: Performed By: #### C BC #### [facility] [address] [place] [address] Dr. Arlyn Chan NEUT # 3.1 103/ul Normal 1.4-6.5 [facility] Comment on above: Performed By: #### C BC #### [facility] [address] [place] [address] Dr. Arlyn Chan Neutrophils/100 WBC (Bld) 58.4 % Normal 43.0-75.0 [facility] Comment on above: Performed By: #### C BC #### [facility] [address] [place] [address] Dr. Arlyn Chan Platelet mean volume (Bld) [Entitic vol] 10.0 fL Normal 9.5-13.5 [facility] Comment on above: Performed By: #### C BC #### [facility] [address] [place] [address] Dr. Arlyn Chan PLT 242 103/ul Normal 150-450 [facility] Comment on above: Performed By: #### C BC #### [facility] [address] [place] [address] Dr. Arlyn Chan RBC 4.64 106/ul Normal 4.20-5.40 [facility] Comment on above: Performed By: #### C BC #### [facility] [address] [place] [address] Dr. Arlyn Chan WBC 5.4 103/ul Normal 4.0-11.0 [facility] Comment on above: Performed By: #### C BC #### [facility] [address] [place] [address] Dr. Arlyn Chan PROF CHEM 8 (BAS METB)on Anion gap [Moles/Vol] 13.9 mmol/L Normal [facility] Comment on above: Performed By: #### H STROPN, BMP #### [facility] [address] [place] [address] Dr. Arlyn Chan Calcium [Mass/Vol] 9.4 mg/dL Normal 8.5-10.1 [facility] Comment on above: Performed By: #### H STROPN, BMP #### [facility] [address] [address] [address] Arlyn Chan Chloride [Moles/Vol] 105 mmol/L Normal 98-107 [facility] Comment on above: Performed By: #### H STROPN, BMP #### [facility] [address] [address] [address] Arlyn Chan CO2 [Moles/Vol] 24.3 mmol/L Normal 21.0-32.0 [facility] Comment on above: Performed By: #### H STROPN, BMP #### [facility] [address] [place] [address] Dr. Arlyn Chan Creatinine [Mass/Vol] 0.76 mg/dL Normal 0.55-1.02 [facility] Comment on above: Performed By: #### H STROPN, BMP #### [facility] [address] [address] [address] Arlyn Chan EGFR-AF GUAMANIAN >60 Normal >=60 [facility] Comment on above: Performed By: #### H STROPN, BMP #### [facility] [address] [place] [address] Dr. Arlyn Chan EGFR-NON AF GUAMANIAN >60 Normal >=60 [facility] Comment on above: Performed By: #### H STROPN, BMP #### [facility] [address] [address] [address] Arlyn Chan Glucose [Mass/Vol] 96 mg/dL Normal 74-106 [facility] Comment on above: Performed By: #### H STROPN, BMP #### [facility] [address] [address] [address] Arlyn Chan Potassium [Moles/Vol] 4.2 mmol/L Normal 3.5-5.1 [facility] Comment on above: Performed By: #### H STROPN, BMP #### [facility] [address] [address] [address] Arlyn Chan Sodium [Moles/Vol] 139 mmol/L Normal 136-145 [facility] Comment on above: Performed By: #### H STROPN, BMP #### [facility] [address] [address] [address] Arlyn Chan Urea nitrogen [Mass/Vol] 21.0 mg/dL Critically high 7.0-18.0 [facility] Comment on above: Performed By: #### H YURI, BMP #### [facility] [id number] Arlyn Chan Urea nitrogen/Creatinine [Mass ratio] 27.6 mg/mg Normal [facility] Comment on above: Performed By: #### H YURI, BMP #### [facility] [address] [address] [address] Arlyn Chan Progress Noteson 05-21-2022 [employer] Officer Authentication Interface Message Text EMERGENCY TRIAGE, TREAT AND TRANSPORT (ET3) DOCUMENTATION OF TELEHEALTH VISIT Date / Time: 05/21/2022944 Name: Genny Barboza : 1940 SSN: (Not on file) EMS Agency: [facility] [x] Verbal consent obtained [] [...] the typically is not available at a [place] primary care physician's office. Patient declined using ambulance go to the ER, and her daughter who was present on scene will drive her the 4 minutes will take to get to the [place] ER. I advised her to call 911 [...] Completed by: Sudheer Haro MD Normal [facility] TROPONIN, HIGH SENSITIVITYon 05-21-2022 HSTROP 5.9 pg/mL Normal 4.0-51.3 [facility] Comment on above: Result Comment: CUT- OFF POINTS HAVE BEEN ESTABLISHED BASED ON THE FOURTH UNIVERSAL DEFINITIONS OF MYOCARDIAL INFARCTION. THE UPPER REFERENCE LIMIT (URL) OF TROPONIN, DEFINED THE 99TH PERCENTILE OF cTnI DISTRIBUTION IN A REFERENCE POPULATION, HAS BEEN CONFIRMED THE DECISION THRESHOLD FOR OK DIAGNOSIS. Performed By: #### H STROZAID, BMP #### [facility] [address] [address] [address] Arlyn Chan MG MAMM SCREEN 3D VINNY CADon 02-08-2022 MG MAMM SCREEN 3D VINNY CAD Patient: GENNY BARBOZA Exam Date: 02/08/2022 : 1940 Gender:F Ordering : DR BRANDEN DU D.O. Admission #: [id number] Family : Order #: [id number] CLICK HERE TO VIEW EXAM RADIOLOGY REPORT [...] bowel resection Family Cancers None LOCATION: [facility] BREAST COMPOSITION: Scattered areas fibroglandular density. [...] MD on 02/08/2022 at 14:06 Normal [facility] CT CHEST WO CONon 08-11-2021 CT [...] by: JOAQUIN SOTO Date: 2021-08-11 17:29 Normal [facility] Vital Signs Date Time Vital Sign Value Performing Clinician Facility 12-12-2023 13:21-0400 Body height 154.94 cm PA-C Doe Álvarez Work Phone: [facility] 12-12-2023 13:21-0400 Body mass index (BMI) [Ratio] 26.6 kg/m2 PA-C Doe Álvarez Work Phone: [facility] 12-12-2023 13:21-0400 Body weight 64 kg PA-C Doe Álvarez Work Phone: [facility] 12-04-2023 15:49-0400 Body height 154.94 cm PA-C Doe Álvarez Work Phone: [facility] 12-04-2023 15:49-0400 Body mass index (BMI) [Ratio] 26.9 kg/m2 PA-C Doe Álvarez Work Phone: [facility] 12-04-2023 15:49-0400 Body weight 64.58 kg PA-C Doechanel Álvarez Work Phone: [facility] 12-04-2023 15:49-0400 Diastolic blood pressure 83 mm[Hg] PA-C Doechanel Álvarez Work Phone: [facility] 12-04-2023 15:49-0400 Heart rate 71 /min PA-C Doe Álvarez Work Phone: [facility] 12-04-2023 15:49-0400 Respiratory rate 12 /min PA-C Doe Álvarez Work Phone: [facility] 12-04-2023 15:49-0400 Systolic blood pressure 151 mm[Hg] PA-C Doe Álvarez Work Phone: [facility] 11-12-2023 11:55-0400 Body height 154.94 cm PA-C Doe Álvarez Work Phone: [facility] 11-12-2023 11:55-0400 Body mass index (BMI) [Ratio] 27.3 kg/m2 IGNACIA-Heri Álvarez Work Phone: [facility] 11-12-2023 11:55-0400 Body weight 65.48 kg IGNACIA-Heri Álvarez Work Phone: [facility] 11-12-2023 11:55-0400 Diastolic blood pressure 84 mm[Hg] IGNACIA-Heri Álvarez Work Phone: [facility] 11-12-2023 11:55-0400 Heart rate 57 /min IGNACIA-C Doe Álvarez Work Phone: [facility] 11-12-2023 11:55-0400 Respiratory rate 12 /min IGNCAIA-Heri Álvarez Work Phone: [facility] 11-12-2023 11:55-0400 Systolic blood pressure 144 mm[Hg] IGNACIA-Heri Álvarez Work Phone: [facility] 11-07-2023 10:05-0400 Body height 154.9 cm Inderjit Frausto DO Work Phone: [facility] 11-07-2023 10:05-0400 Body mass index (BMI) [Ratio] 26.83 kg/m2 Inderjit Frausto DO Work Phone: [facility] 11-07-2023 10:05-0400 Body weight 64.41 kg Inderjit Frausto DO Work Phone: [facility] 11-07-2023 10:05-0400 Diastolic blood pressure 68 mm[Hg] Inderjit Frausto DO Work Phone: [facility] 11-07-2023 10:05-0400 Heart rate 82 /min Inderjit Frausto DO Work Phone: [facility] 11-07-2023 10:05-0400 Systolic blood pressure 118 mm[Hg] Inderjit Frausto DO Work Phone: [facility] 11-05-2023 11:37-0400 Diastolic blood pressure 61 mm[Hg] PA-C Doe Álvarez Work Phone: [facility] 11-05-2023 11:37-0400 Heart rate 63 /min PA-C Doe Álvarez Work Phone: [facility] 11-05-2023 11:37-0400 Respiratory rate 20 /min PA-C Doe Álvarez Work Phone: [facility] 11-05-2023 11:37-0400 SaO2% (BldA) [Mass fraction] 98 % PA-C Doe Álvarez Work Phone: [facility] 11-05-2023 11:37-0400 Systolic blood pressure 143 mm[Hg] PA-C Doe Álvarez Work Phone: [facility] 11-05-2023 09:10-0400 Body temperature 97.8 [degF] PA-C Doe Álvarez Work Phone: [facility] 11-05-2023 07:18-0400 Body height 154.94 cm PA-C Doe Álvarez Work Phone: [facility] 11-05-2023 07:18-0400 Body weight 65.77 kg PA-C Doe Álvarez Work Phone: [facility] 10-29-2023 16:00-0400 Body temperature 98.2 [degF] PA-C Doe Álvarez Work Phone: [facility] 10-29-2023 16:00-0400 Diastolic blood pressure 88 mm[Hg] PA-C Doe Álvarez Work Phone: [facility] 10-29-2023 16:00-0400 Heart rate 58 /min PA-C Doechanel Álvarez Work Phone: [facility] 10-29-2023 16:00-0400 Respiratory rate 16 /min PA-C Doe Álvarez Work Phone: [facility] 10-29-2023 16:00-0400 SaO2% (BldA) [Mass fraction] 96 % PA-C Doe Álvarez Work Phone: [facility] 10-29-2023 16:00-0400 Systolic blood pressure 140 mm[Hg] PA-C Doe Álvarez Work Phone: [facility] 10-29-2023 06:00-0400 Body weight 65.6 kg PA-C Doe Álvarez Work Phone: [facility] 10-29-2023 06:00-0400 Inhaled oxygen flow rate 2 L/min PA-C Doe Álvarez Work Phone: [facility] 10-27-2023 21:42-0400 Body height 154.94 cm PA-C Doe Álvarez Work Phone: [facility] 10-27-2023 19:05-0400 Diastolic blood pressure 64 mm[Hg] PA-C Doe Álvarez Work Phone: [facility] 10-27-2023 19:05-0400 Heart rate 75 /min PA-C Doe Álvarez Work Phone: [facility] 10-27-2023 19:05-0400 Respiratory rate 28 /min PA-C Doe Álvarez Work Phone: [facility] 10-27-2023 19:05-0400 SaO2% (BldA) [Mass fraction] 96 % PA-C Doe Álvarez Work Phone: [facility] 10-27-2023 19:05-0400 Systolic blood pressure 120 mm[Hg] PA-C Doe Álvarez Work Phone: [facility] 10-27-2023 17:31-0400 Body temperature 97.9 [degF] PA-C Doe Álvarez Work Phone: [facility] 10-27-2023 17:11-0400 Body height 154.94 cm FLAKITA Álvarez Work Phone: [facility] 10-27-2023 [id number] Body weight 66.3 kg FLAKITA Álvarez Work Phone: [facility] 06-20-2023 14:32-0400 Body height 165.1 cm DO Branden Ball Work Phone: [facility] 06-20-2023 14:32-0400 Body mass index (BMI) [Ratio] 24.4 kg/m2 DO Branden Ball Work Phone: [facility] 06-20-2023 14:32-0400 Body weight 66.67 kg DO Branden Ball Work Phone: [facility] 06-20-2023 14:32-0400 Diastolic blood pressure 77 mm[Hg] DO Branden Ball Work Phone: [facility] 06-20-2023 14:32-0400 Heart rate 83 /min DO Branden Ball Work Phone: [facility] 06-20-2023 14:32-0400 Systolic blood pressure 150 mm[Hg] DO Branden Ball Work Phone: [facility] 06-07-2023 09:28-0400 Body height 165.1 cm DO Branden Ball Work Phone: [facility] 06-07-2023 09:28-0400 Body mass index (BMI) [Ratio] 24.6 kg/m2 DO Branden Ball Work Phone: [facility] 06-07-2023 09:28-0400 Body weight 67.18 kg DO Branden Ball Work Phone: [facility] 06-07-2023 09:28-0400 Diastolic blood pressure 87 mm[Hg] DO Branden Ball Work Phone: [facility] 06-07-2023 09:28-0400 Heart rate 77 /min DO Branden Ball Work Phone: [facility] 06-07-2023 09:28-0400 Respiratory rate 12 /min DO Branden Ball Work Phone: [facility] 06-07-2023 09:28-0400 Systolic blood pressure 146 mm[Hg] DO Branden Ball Work Phone: [facility] 05-21-2023 10:24-0500 Body height 165.1 cm DO Branden Ball Work Phone: [facility] 05-21-2023 10:24-0500 Body mass index (BMI) [Ratio] 24.3 kg/m2 DO Branden Ball Work Phone: [facility] 05-21-2023 10:24-0500 Body weight 66.22 kg DO Branden Ball Work Phone: [facility] 05-21-2023 10:24-0500 Diastolic blood pressure 81 mm[Hg] DO Branden Ball Work Phone: [facility] 05-21-2023 10:24-0500 Heart rate 71 /min DO Branden Ball Work Phone: [facility] 05-21-2023 10:24-0500 Respiratory rate 16 /min DO Branden Ball Work Phone: [facility] 05-21-2023 10:24-0500 Systolic blood pressure 131 mm[Hg] DO Branden Ball Work Phone: [facility] 04-12-2023 11:30-0500 Body height 165.1 cm Branden Ball Other [facility] 04-12-2023 11:30-0500 Body mass index (BMI) [Ratio] 24.59 kg/m2 Branden Ball Other [facility] [employer] Other 04-12-2023 11:30-0500 Body weight 67.04 kg Branden Ball Other [facility] 04-12-2023 11:30-0500 Diastolic blood pressure 75 mm[Hg] Branden Ball Other [facility] 04-12-2023 11:30-0500 Respiratory rate 12 /min Branden Ball Other [facility] [employer] Other 04-12-2023 11:30-0500 Systolic blood pressure 122 mm[Hg] Branden Ball Other [facility] 03-26-2023 11:30-0500 Body height 165.1 cm Branden Ball Other [facility] 03-26-2023 11:30-0500 Body mass index (BMI) [Ratio] 24.89 kg/m2 Branden Ball Other [facility] [employer] Other 03-26-2023 11:30-0500 Body weight 67.86 kg Branden Ball Other [facility] [employer] Other 03-26-2023 11:30-0500 Body weight 67.85 kg DO Branden Ball Work Phone: [facility] 03-26-2023 11:30-0500 Diastolic blood pressure 82 mm[Hg] Branden Ball Other [facility] 03-26-2023 11:30-0500 Respiratory rate 12 /min Branden Ball Other [facility] [employer] Other 03-26-2023 11:30-0500 Systolic blood pressure 192 mm[Hg] Branden Ball Other [facility] 02-08-2023 13:30-0500 Body height 165.1 cm Branden Ball Other [facility] 02-08-2023 13:30-0500 Body mass index (BMI) [Ratio] 24.29 kg/m2 Branden Ball Other [facility] [employer] Other 02-08-2023 13:30-0500 Body weight 66.23 kg Branden Ball Other [facility] [employer] Other 02-08-2023 13:30-0500 Body weight 66.22 kg DO Branden Ball Work Phone: [facility] 02-08-2023 13:30-0500 Diastolic blood pressure 79 mm[Hg] Branden Ball Other [facility] 02-08-2023 13:30-0500 Respiratory rate 12 /min Branden Ball Other [facility] [employer] Other 02-08-2023 13:30-0500 Systolic blood pressure 128 mm[Hg] Branden Ball Other [facility] 08-27-2022 11:15-0400 Body height 165.1 cm Branden Ball Other [employer] Other 08-27-2022 11:15-0400 Body mass index (BMI) [Ratio] 24.06 kg/m2 Branden Ball Other [employer] Other 08-27-2022 11:15-0400 Body weight 65.59 kg Branden Ball Other [employer] Other 08-27-2022 11:15-0400 Diastolic blood pressure 83 mm[Hg] Branden Ball Other [employer] Other 08-27-2022 11:15-0400 Respiratory rate 12 /min Branden Ball Other [employer] Other 08-27-2022 11:15-0400 Systolic blood pressure 152 mm[Hg] Branden Ball Other [employer] Other 07-09-2022 15:00-0400 Body height 165.1 cm Branden Ball Other [employer] Other 07-09-2022 15:00-0400 Body mass index (BMI) [Ratio] 23.23 kg/m2 Branden Ball Other [employer] Other 07-09-2022 15:00-0400 Body weight 63.32 kg Branden Ball Other [employer] Other 07-09-2022 15:00-0400 Diastolic blood pressure 72 mm[Hg] Branden Ball Other [employer] Other 07-09-2022 15:00-0400 Respiratory rate 12 /min Branden Ball Other [employer] Other 07-09-2022 15:00-0400 Systolic blood pressure 134 mm[Hg] Branden Ball Other [employer] Other 05-21-2022 15:45-0500 Body height 165.1 cm Branden Ball Other [employer] Other 05-21-2022 15:45-0500 Body mass index (BMI) [Ratio] 24.56 kg/m2 Branden Ball Other [employer] Other 05-21-2022 15:45-0500 Body weight 66.95 kg Branden Ball Other [employer] Other 05-21-2022 15:45-0500 Diastolic blood pressure 82 mm[Hg] Branden Ball Other [employer] Other 05-21-2022 15:45-0500 Respiratory rate 12 /min Branden Ball Other [employer] Other 05-21-2022 15:45-0500 Systolic blood pressure 136 mm[Hg] Branden Ball Other [employer] Other 05-21-2022 09:45-0500 Diastolic blood pressure 92 mm[Hg] Et[facility] 05-21-2022 09:45-0500 Heart rate 72 /min [facility] 05-21-2022 09:45-0500 Respiratory rate 18 /min [facility] 05-21-2022 09:45-0500 SaO2% (BldA) [Mass fraction] 98 % [facility] 05-21-2022 09:45-0500 Systolic blood pressure 181 mm[Hg] Et3 [facility] Encounters Encounter Date Encounter Type Care Provider Facility Start: 12-20-2023 End: 12-20-2023 ambulatory [facility] Ambulatory Start: 12-12-2023 End: 12-12-2023 ambulatory PA-C Doe Álvarez Work Phone: [facility] Work Phone: Start: 12-12-2023 End: 12-12-2023 Patient encounter procedure PA-Heri Álvarez Work Phone: [facility] Gastroenterology Work Phone: Start: 12-04-2023 End: 12-04-2023 ambulatory PA-Heri Álvarez Work Phone: [facility] Work Phone: Start: 12-04-2023 End: 12-04-2023 Patient encounter procedure PA-Heri Álvarez Work Phone: [facility] Work Phone: Start: 11-12-2023 End: 11-12-2023 ambulatory PA-C Doe Álvarez Work Phone: [facility] Work Phone: Start: 11-12-2023 End: 11-12-2023 Patient encounter procedure PA-Heri Álvarez Work Phone: [facility] Work Phone: Start: 11-07-2023 End: 11-07-2023 ambulatory [facility] Ambulatory Start: 11-07-2023 End: 11-07-2023 Transitional care manage srvc 7 day discharge Inderjit Frausto DO Work Phone: [facility] Comment on above: Coronary artery dise ase, unspecified vessel or lesion type, unspecified whether angina present, unspecified whether [place] or transplanted heart; History of PTCA; History of ST elevation myocardial infarction (STEMI); Shortness of breath; Former smoker; BMI 26.0-26.9,adult; Hyperlipidemia, unspecified hyperlipidemia type Start: 11-05-2023 Non-patient / Non-visit FLAKITA Álvarez Work Phone: [facility] Work Phone: Start: 11-05-2023 End: 11-05-2023 Emergency department patient visit FLAKITA Álvarez Work Phone: [facility]Emergency [facility] Work Phone: Start: 10-28-2023 Non-patient / Non-visit FLAKITA Álvarez Work Phone: [facility] Work Phone: Start: 10-27-2023 End: 10-29-2023 Evaluation and management of inpatient FLAKITA Álvarez Work Phone: [facility] Work Phone: Start: 07-25-2023 End: 07-25-2023 ambulatory Sylvester Monk Facility:[facility] Start: 06-20-2023 End: 06-20-2023 ambulatory DO Branden Du Work Phone: [facility] Work Phone: Start: 06-20-2023 End: 06-20-2023 Patient encounter procedure DO Branden Ball Work Phone: [facility] Work Phone: Start: 06-07-2023 End: 06-07-2023 ambulatory DO Branden Ball Work Phone: [facility] Work Phone: Start: 06-07-2023 End: 06-07-2023 Patient encounter procedure DO Branden Ball Work Phone: [facility] Work Phone: Start: 05-21-2023 End: 05-21-2023 Patient encounter procedure DO Branden Ball Work Phone: [facility] Work Phone: Start: 05-06-2023 End: 05-06-2023 Patient encounter procedure DO Branden Ball Work Phone: [facility] Work Phone: Start: 05-06-2023 End: 05-06-2023 ambulatory DO Branden Ball Work Phone: [facility] Work Phone: Start: 04-24-2023 End: 04-24-2023 ambulatory ELENA HASSAN Not Available Start: 04-23-2023 End: 04-23-2023 ambulatory Branden Du Other [employer] Other Start: 04-23-2023 Telephone encounter Branden Ball [facility] Start: 04-22-2023 End: 04-22-2023 ambulatory Branden Ball Other [employer] Other Start: 04-22-2023 Telephone encounter Branden Ball [facility] Start: 04-17-2023 End: 04-17-2023 ambulatory Branden Ball Other [employer] Other Start: 04-17-2023 Telephone encounter Branden Ball [facility] Start: 04-12-2023 End: 04-12-2023 ambulatory Branden Ball Other [employer] Other Start: 04-12-2023 Office outpatient vi sit 15 minutes Branden Ball [facility] Start: 04-12-2023 Telephone encounter Branden Ball [facility] Start: 04-12-2023 End: 04-12-2023 Patient encounter procedure DO Branden Ball Work Phone: [facility]- Start: 04-08-2023 End: 04-08-2023 ambulatory Branden Du Other [employer] Other Start: 04-08-2023 Telephone encounter Branden Du [facility] Start: 04-01-2023 End: 04-01-2023 ambulatory Branden Du Other [employer] Other Start: 04-01-2023 Telephone encounter Branden ALAS [facility] Start: 03-27-2023 End: 03-27-2023 ambulatory Branden Du Other [employer] Other Start: 03-27-2023 Telephone encounter Branden Du [facility] Start: 03-26-2023 End: 03-26-2023 ambulatory Branden Du Other [employer] Other Start: 03-26-2023 Office outpatient vi sit 15 minutes [facility]en [facility] Start: 03-26-2023 End: 03-26-2023 Patient encounter procedure DO Branden Ball Work Phone: [facility] Work Phone: Start: 03-14-2023 End: 03-14-2023 ambulatory Branden Du Other [employer] Other Start: 03-14-2023 Telephone encounter Branden ALAS [facility] Start: 02-19-2023 End: 02-19-2023 ambulatory Branden Du Other [employer] Other Start: 02-19-2023 Telephone encounter Branden Du [facility] Start: 02-08-2023 End: 02-08-2023 ambulatory Branden Ball Other [employer] Other Start: 02-08-2023 Patient encounter procedure Branden Du [facility] Start: 02-08-2023 End: 02-08-2023 Patient encounter procedure DO Branden Du Work Phone: [facility] Work Phone: Start: 09-20-2022 End: 09-20-2022 ambulatory Branden Du Other [employer] Other Start: 09-20-2022 Telephone encounter Branden Ball [facility] Start: 08-27-2022 End: 08-27-2022 ambulatory Branden Ball Other [employer] Other Start: 08-27-2022 Office outpatient vi sit 15 minutes Branden Ball [facility] Start: 08-24-2022 End: 08-24-2022 ambulatory Branden Ball Other [employer] Other Start: 08-24-2022 Nursing evaluation o f patient and report Branden Du [facility] Start: 07-09-2022 End: 07-09-2022 ambulatory Branden [place] Other [employer] Other Start: 07-09-2022 Office outpatient vi sit 15 minutes Branden Ball [facility] Start: 06-12-2022 End: 06-12-2022 ambulatory Branden Ball Other [employer] Other Start: 06-12-2022 Telephone encounter Branden Ball [facility] Start: 06-11-2022 End: 06-11-2022 ambulatory Branden Ball Other [employer] Other Start: 06-11-2022 Telephone encounter Branden Ball [facility] Start: 05-22-2022 End: 05-22-2022 ambulatory Branden Ball Other [employer] Other Start: 05-22-2022 Telephone encounter Branden Ball [facility] Start: 05-21-2022 Office outpatient vi sit 15 minutes Branden Du [facility] Start: 05-21-2022 End: 05-23-[address] BRANDEN DU Facility:[facility] Start: 05-21-2022 End: 05-21-2022 ambulatory [facility] Triage, Treat and Transport Start: 05-21-2022 End: 05-21-2022 Emergency department [facility] Comment on above: Arrived Start: 05-04-2022 End: 05-04-2022 ambulatory Branden Du Other [facility] Other Start: 05-04-2022 Telephone encounter Branden ALAS [facility] Start: 05-03-2022 End: 05-03-2022 ambulatory Branden Du Other [facility] Other Start: 05-03-2022 Telephone encounter Branden Du [facility] Start: 02-08-2022 End: 02-09-[address] BRANDEN [...] procedure 03/11/2024 10:40 AM EST Office Visit [facility] [address] [place] [address] Inderjit Frausto, [address] [place] [address] [facility] Start: 11-24-2023 Influenza vaccination Influenza Vaccine (#1) [facility] Start: 10-29-2023 [facility] Start: 10-27-2023 Consultation [facility] Start: 10-27-2023 Hospital admission [facility] Start: 10-27-2023 Referral to cardiac rehabilitation program [facility] Start: 10-27-2023 [facility] Start: 10-27-2023 End: 10-27-2023 [facility] Start: 10-27-2023 Dilation of Coronary Artery, One Artery with Drug-eluting Intraluminal Device, Percutaneous Approach Dilation of Coronary Artery, One Artery with Drug-eluting Intraluminal Device, Percutaneous Approach [facility] Start: 10-27-2023 Fluoroscopy of Left Heart using Low Osmolar Contrast Fluoroscopy of Left Heart using Low Osmolar Contrast [facility] Start: 10-27-2023 Fluoroscopy of Multiple Coronary Arteries using Low Osmolar Contrast Fluoroscopy of Multiple Coronary Arteries using Low Osmolar Contrast [facility] Start: 10-27-2023 Measurement of Cardiac Sampling and Pressure, Left Heart, Percutaneous Approach Measurement of Cardiac Sampling and Pressure, Left Heart, Percutaneous Approach [facility] Start: 05-21-2023 Patient referral [facility] Work Phone: Start: 04-29-2023 COVID-19 Vaccine () COVID-19 Vaccine () [facility] Start: 10-01-2022 Influenza vaccination Influenza Vaccine (#1) [facility] Start: 2005 Pneumococcal vaccination Pneumococcal Vaccine(s) (65+ yrs) (1 - PCV) [facility] Start: 2005 Screening for osteoporosis Bone Densitometry [facility] Start: 1990 Shingles (RZV) Vaccine (1 of 2) Shingles (RZV) Vaccine (1 of 2) [facility] Start: 1962 DTaP/Tdap/Td Vaccines (1 - Tdap) DTaP/Tdap/Td Vaccines (1 - Tdap) [facility] Start: 1958 Tetanus + diphtheria + acellular pertussis vaccine (product) Tdap Booster [facility] Start: [birth year]24-1941 COVID-19 Vaccine (#1) COVID-19 Vaccine (#1) [facility] Start: 1940 Basic metabolic 2000 panel - Serum or Plasma Basic Metabolic Panel [facility] Start: 1940 Lipid panel Lipid Panel [facility] Start: 1940 Medicare Annual Wellness Visit Medicare Annual Wellness Visit (AWV) [facility] Start: 1940 Screening for osteoporosis Bone Density Scan [facility] MR Shoulder - right WO contrast [facility] Patient Education Coronary Angio plasty (DC) Coronary Stenting (DC) Angina (DC) Chest Pain (DC) Drug Eluting Stents Know your Meds [facility] Work Phone: Patient referral [facility] Work Phone: Immunizations Immunization Date Immunization Notes Care Provider Allie nash 12-04-2023 influenza, high dose seasonal, preservative-free FLAKITA Álvarez Work Phone: [facility] 12-27-2022 influenza virus vaccine, unspecified formulation Inderjit Frausto DO Work Phone: [facility] Work Phone: 12-13-2021 influenza virus vaccine, split virus (incl. purified surface antigen) Branden Du Other [facility] Other 12-13-2021 influenza virus vaccine, unspecified formulation DO Branden Du Work Phone: [facility] 12-14-2020 influenza virus vaccine, split virus (incl. purified surface antigen) Branden Du Other [facility] [employer] Other 12-14-2020 influenza virus vaccine, unspecified formulation DO [employer] Work Phone: [facility] 12-04-2019 influenza virus vaccine, split virus (incl. purified surface antigen) Branden Du Other [facility] [employer] Other 12-04-2019 influenza virus vaccine, unspecified formulation DO [employer] Work Phone: [facility] 12-16-2018 influenza virus vaccine, split virus (incl. purified surface antigen) Branden Du Other [facility] [employer] Other 12-16-2018 influenza virus vaccine, unspecified formulation DO [employer] Work Phone: [facility] 01-15-2018 influenza virus vaccine, split virus (incl. purified surface antigen) Branden [employer] Other [facility] [employer] Other 01-15-2018 influenza virus vaccine, unspecified formulation DO [employer] Work Phone: [facility] 01-12-2017 influenza virus vaccine, split virus (incl. purified surface antigen) Branden Du Other [facility] [employer] Other 01-12-2017 influenza virus vaccine, unspecified formulation DO [employer] Work Phone: [facility] 12-27-2015 influenza virus vaccine, split virus (incl. purified surface antigen) Branden [employer] Other [facility] [employer] Other 12-27-2015 influenza virus vaccine, unspecified formulation DO [employer] Work Phone: [facility] 01-28-2015 pneumococcal conjuga te vaccine, 13 valent Branden Du Other [facility] Payers Date Payer Category Payer Self-pay 2023 Unknown [id number] 2022 Unknown SP/UNINSURED PEN DING FINANCIAL PROGRAM EVALUATION [id number] 2022-Present [phone] [address] [place] [address] Other [id number] 2022 Unknown [id number] 2005 Medicare MEDICARE MEDICAR E PART A AND B [id number] 2005-Present [address] [place] [address] [id number] 1959 Medicare [id number] 1959 Unknown [id number] 1940 Unknown [id number] 1940 Unknown [id number] 1940 Unknown [id number] 1940 Unknown [id number] 1940 Unknown [id number] 1940 Unknown [id number] 1940 Unknown [id number] Medicare Medicare [id number] Unknown [id number] Unknown [id number] Unknown [id number] Unknown [id number] Social History Date Type Detail Facility Tobacco smoking status MSIS Tobacco smoking consumption unknown [facility] Start: 1940 Sex Assigned At [facility] on [facility] Sex Assigned At [facility] Other Start: 1940 Sex Assigned At Female [facility] Start: 06-20-2023 Tobacco smoking status MSIS Never smoked tobacco (finding) [facility] Start: 10-27-2023 End: 11-07-2023 Tobacco smoking status MSIS Ex-smoker (finding) [facility] Start: 11-05-2023 Tobacco smoking status [facility] Current some day smoker [facility] History of tobacco use Current smoker [facility] Work Phone: History of tobacco use Cigarette Smoker [facility] Work Phone: Start: 11-07-2023 Tobacco use and exposure Smokeless tobacco non-user [facility] Work Phone: Start: 11-07-2023 Alcoholic beverage intake Current drinker of alcohol (finding) [facility] Work Phone: Start: 10-28-2023 End: 11-07-2023 Exposure to SARS-CoV-2 (event) Not sure [facility] Medical Equipment Procedure Code Equipment Code Equipment Origin al Text Equipment Identifier Dates CL STENT TOMER FRONTIER 4.0 X 18 FDA Start: 10-27-2023 Femoral artery closure plug/patch, synthetic polymer [id number] FDA Start: 10-27-2023 CL STENT TOMER FRONTIER 4.0 X 18 FDA Start: 10-27-2023 CL STENT TOMER FRONTIER 4.0 X 18 FDA Start: 10-27-2023 CL STENT TOMER FRONTIER 4.0 X 18 FDA Start: 10-27-2023 CL STENT TOMER FRONTIER 4.0 X 18 FDA Start: 10-27-2023 Goals Date Patient Goal Desired Activity /State Functional Status Date Assessment Result Facility 10-29-2023 Functional status Patient at Baseline [facility] Work Phone: Mental Status Date Assessment Result Facility 10-29-2023 Cognitive function Cognitive Sta tus Patient at Baseline [facility] Work Phone: Clinical Notes 05-04-2022 [...] type, unspecified whether angina present, unspecified whether [place] or transplanted heart 2. History of PTCA 3. History of ST elevation myocardial infarction (STEMI) 4. Shortness of breath 5. Former smoker 6. BMI 26.0-26.9,adult 7. Hyperlipidemia, unspecified hyperlipidemia type Scribe Attestation By signing my name below, Kacy Riley LPN , Scribe attest that this documentation [...] discussion and plan. documented in this encounter [facility] Work Phone: 11-07-2023 Instructions Kacy Norris LPN [...] on dietary changes. documented in this encounter [facility] Work Phone: 10-28-2023 Consult note Note Date/Time October 28, 2023 8:5 5pm [facility] [address] [place] [address] Pulmonology Consult Note Signed Patient: Genny Barboza MR#: [id number] 3012 : 1940 Acct:[id number] Age/Sex: 83 / F Adm Date: 4 Loc: Room: [address] [place] [address] Type: ADM IN Attending Dr: Reji Frausto [...] an inferior STEMI, emergently brought to the laboratory helper and found to have RCA with 99% stenosis, s/p PCI, did well was transferred to ICU without needing intubation or hemodynamic support. Currently on RA, on ASA, Brilinta, BB, statin, ROBIN. Review of Systems Constitutional Constitutional: Reports as per HPI Cardiovascular Cardiovascular: Reports as per HPI and Reports chest pain at rest [facility] Medical History Lung nodule CT: 1.7cm nodule [...] <Electronically signed by Sobia Okeefe MD> 10/28/232054 [facility] Work Phone: 1(867) 419-672008-05-2024 Progress note Author W Jett [facility] October 28, 2023 11:54am Note Date/Time October 28, 2023 11: 54am [facility] [address] [place], [place] [id number] Cardiology Progress Note Signed Patient: Genny Barboza MR#: [id number] 3012 : 1940 Acct:[id number] Age/Sex: 83 / F Adm Date: 4 Loc: 4C Room: 4F1633-7 Type: ADM IN Attending Dr: Reji Frausto [...] administered under my direction, patient arrived in [employer] at 1756 and underwent primary PCI at [...] critical care time were devoted to ER staff,[employer] Operator staff, nursing staff, patient and family both [...] % (Auto) 63.6 Lymph % (Auto) 25.7 Clayton % (Auto) 8.7 Eos % (Auto) 0.7 Baso % (Auto) 1.3 Nucleat RBC Rel Count 0.1 Neut # (Auto) 5.5 Lymph # (Auto) 2.2 Clayton # (Auto) 0.7 Eos # (Auto) 0.1 [...] Troponin I High Sens 10.2 6295.7 H* 13622.3 H* B-Natriuretic Peptide 124.0 H Total Protein [...] % (Auto) 68.0 Lymph % (Auto) 20.4 Clayton % (Auto) 10.2 Eos % (Auto) 0.5 Baso % (Auto) 0.9 Nucleat RBC Rel Count 0.1 Neut # (Auto) 5.7 Lymph # (Auto) 1.7 Clayton # (Auto) 0.9 H Eos # (Auto) [...] Total Creatine Kinase Troponin I High Sens 02245.9 H* 96834.0 H* 63222.4 H* B-Natriuretic Peptide Total Protein Albumin Globulin [...] signed by Reji Frausto DO> 10/28/23 1154 [facility] Work Phone: 1(913) 260-849708-04-2024 History and physical note Author Reji Frausto [facility] October 27, 2023 6:21pm Note Date/Time October 27, 2023 5:5 1pm [facility] [address] [place] [address] Cardiology H&P Signed Patient: Genny Barboza MR#: [id number] 3012 : 1940 Acct:[id number] Age/Sex: 83 / F Adm Date: 4 Loc: CL Room: Type: [facility] Attending Dr: Reji Frausto DO Copies to: [...] administered under my direction, patient arrived in [employer] at 1756 and underwent primary PCI at [...] critical care time were devoted to ER staff,[employer] Co[employer] Operator staff, nursing staff, patient and family both pre and post procedurally. Review of Systems Review of Systems All other systems reviewed & are negative unless noted below or in HPI Constitutional Constitutional: Reports as per HPI Cardiovascular Cardiovascular: Reports as per HPI and Reports chest pain at rest [facility] Medical History Lung nodule CT: 1.7cm nodule [...] x10E3/uL Lymph # (Auto) 2.2 (1.00-4.8) x10E3/uL Clayton # (Auto) 0.7 (0.0-0.8) x10E3/uL Eos # [...] results cardiology: sinus rhythm EKG shows: bradycardia OK, pacemaker, normal Myocardial infarction: inferior OK (acute or recent) A&P - Cardiology (1) ST elevation myocardial infarction (STEMI) of inferior wall: Code(s): I21.19 - ST elevation (STEMI) myocardial infarction involving other coronary artery of inferior wall Plan Proceed with emergency cath and PCI Documented By: Reji Frausto DO 10/27/23 153 Signed By: <Electronically signed by Reji Frausto DO> 10/27/23 3988 [facility] Work Phone: 1(875) 299-207208-04-2024 [facility] Procedure note [facility]01-30-2024 Evaluation note* Encounter Date Diagnosis Assessment Notes Treatment Notes Treatment Clinical Notes Mar, Primary hypertension (ICD-10 - I10) [facility] Other 01-29-2024 Evaluation note* Encounter Date Diagnosis Assessment Notes Treatment Notes Treatment Clinical Notes Mar, Lung nodule (ICD-10 - R91.1) [facility] Other 01-24-2024 Evaluation note* Encounter Date Diagnosis Assessment Notes Treatment Notes Treatment Clinical Notes Mar, Lung mass (ICD-10 - R91.8) [facility] Other 01-19-2024 Evaluation note* Encounter Date Diagnosis Assessment Notes Treatment Notes Treatment Clinical Notes Mar, Fall, initial encounter (ICD-10 - W19.XXXA) She denies CP, DASILVA, palpitations or lightheadedness Tripped over her shoe laces Fall precautions Mar, Right arm pain (ICD-10 - M79.601) Not sure how she landed. Ice, heat Mar, Contusion of right upper extremity, initial encounter (ICD-10 - S40.021A) [facility] Other 01-15-2024 Evaluation note* Encounter Date Diagnosis Assessment Notes Treatment Notes Treatment Clinical Notes Mar, Left lower quadrant abdominal pain (ICD-10 - R10.32) Mar, Diarrhea, unspecified type (ICD-10 - R19.7) [facility] Other 01-08-2024 Evaluation note* Encounter Date Diagnosis Assessment Notes Treatment Notes Treatment Clinical Notes Mar, Irritable bowel syndrome without diarrhea (ICD-10 - K58.9) [facility] Other 01-02-2024 Evaluation note* Encounter Date Diagnosis [...] would refer for colonoscopy to exclude colitis [facility] Other 12-21-2023 Evaluation note* Encounter Date Diagnosis Assessment Notes Treatment Notes Treatment Clinical Notes Feb, Gastroesophageal ref lux disease with esophagitis without hemorrhage (ICD-10 - K21.00) [facility] Other 11-28-2023 Evaluation note* Encounter Date Diagnosis Assessment Notes Treatment Notes Treatment Clinical Notes Jan, Dysuria (ICD-10 - R30.0) [facility] Other 11-17-2023 Evaluation note* Encounter Date Diagnosis [...] patient on monthly SBE and yearly mammograms. [facility] Other 06-29-2023 Evaluation note* Encounter Date Diagnosis Assessment Notes Treatment Notes Treatment Clinical Notes Aug, Primary hypertension (ICD-10 - I10) [facility] Other 06-05-2023 Evaluation note* Encounter Date Diagnosis [...] best 2/3 readings w/ goal < 135-85 [facility] Other 06-02-2023 Evaluation note* Encounter Date Diagnosis Assessment Notes Treatment Notes Treatment Clinical Notes 02 Rodolfo, 2023 Dysuria (ICD-10 - R30.0) [facility] Other 04-17-2023 Evaluation note* Encounter Date Diagnosis Assessment Notes Treatment Notes Treatment Clinical Notes Jun, Primary hypertension (ICD-10 - I10) This patient is instructed to consume a healthy, low-fat, low-salt diet. They are also encouraged to continue exercise to achieve/maintain a normal BMI. Jun, Nicotine dependence, cigarettes, in remission (ICD-10 - F17.211) Continue abstinence [facility] Other 03-21-2023 Evaluation note* Encounter Date Diagnosis Assessment Notes Treatment Notes Treatment Clinical Notes May, Primary hypertension (ICD-10 - I10) [facility] Other 03-20-2023 Evaluation note* Encounter Date Diagnosis Assessment Notes Treatment Notes Treatment Clinical Notes May, Primary hypertension (ICD-10 - I10) [facility] Other 02-28-2023 Evaluation note* Encounter Date Diagnosis Assessment Notes Treatment Notes Treatment Clinical Notes Apr, Primary hypertension (ICD-10 - I10) [facility] Other 02-27-2023 Evaluation note* Encounter Date Diagnosis [...] - F17.211) Continue abstinence Apr, Other REo [facility] Other 02-27-2023 History of Present illness Narrative* Sudheer Haro MD - 05/21/2022 10:00 AM EST Images from the original note were not included. EMERGENCY TRIAGE, TREAT AND TRANSPORT (ET3) DOCUMENTATION OF TELEHEALTH VISIT Date / Time: 05/21/2022944 Name: Genny Barboza : 1940 SSN: (Not on file) EMS Agency: [facility] [x] Verbal consent obtained [] [...] the typically is not available at a [place] primary care physician's office.Patient declined using ambulance go to the ER, and her daughter who was present on scene will driveher the 4 minutes will take to get to the [place] ER. I advised her to call 911 [...] by: Sudheer Haro MD documented in this [id number] Evaluation note* Encounter Date Diagnosis Assessment Notes Treatment Notes Treatment Clinical Notes Apr, Nausea (ICD-10 - R11.0) [facility] Other Discharge summary Author Reji Frausto [facility] October 29, 2023 3:50pm Note Date/Time October 29, 2023 3:4 8pm [facility] [address] [place] [address] Discharge Summary Signed Patient: Genny Barboza MR#: [id number] : 1940 Acct:[id number] Age/Sex: 83 / F Adm Date: 4 Loc: Room: [address] [place] [address]: Reji Frausto DO Copies to: [...] proximal RCA with 4 x 18 mm [place] stent 5. Preserved LV function 6. Essential hypertension Summary Hospital Course Hospital course: 83-year-old female presented with acute inferior ST elevation OK on Saturday, October 27, 2023 and underwent rapid revascularization of the proximal RCA with large 4 mm drug-eluting stent within 60 minutes. LV function is preserved. Sammi have small vessel diagonal branch disease that is going to be treated conservatively. She had no postoperative for post OK complications, arrhythmia,heart failure or recurrent angina. She will be discharged this afternoon, currently on aspirin 81 daily, [id number] twice daily, metoprolol 25 twice daily, losartan [...] LHC & [facility] Angio - W Celestino Frausto DO p CL PCI AMI 1st Vessel [...] doctor or pharmacist, without first calling the bevel operator who implanted the stent. If you require [...] weight lifting, stair steppers, etc. until the bevel operator approves these activities. Check with the bevel operator on your first follow-up visit. CALL YOUR PHYSICAL EDUCATION AIDE: -If bleeding should occur from the catheter insertion site- apply pressure to the site then immediately call us. -Report any fever, redness, drainage, increased swelling, or firmness at the catheter insertion site. Some bruising or slight swelling may be present at thetime of discharge. -Should arm or leg become cold, numb, white, or blue, contact the bevel operator immediately. -IF you should experience episodes of [...] Cardiopulmonary Rehabilitation program is recommended. The attending bevel operator or a nurse clinician should provide you with specificinstructions regarding activity, diet, medications, and further follow up for you. Follow the medication instructions provided on your discharge. If the dosages and instructions on this sheet differ from the dosage and instructions on the bottle, follow the instructions on the bottle. [facility] is not responsible for incorrect prescription information [...] % (Auto) 73.5, Lymph % (Auto) 15.8, Clayton % (Auto) 9.4, Eos % (Auto) 0.6, Baso % (Auto) 0.7, Nucleat RBC Rel Count 0.1, Neut # (Auto) 5.9, Lymph # (Auto) 1.3, Clayton # (Auto) 0.8, Eos # (Auto) 0.0, Baso # (Auto) 0.1, PHA Creatinine Clear 41.47, Sodium 138, Potassium 4.0, Chloride 109 H, Carbon Dioxide 24.3, Anion Gap 8.7, BUN 17, Creatinine 0.91, Est GFR (CKD-EPI) > 60.0, Glucose 105 H, Calcium 9.3 Documented By: Reji Frausto DO 10/29/23 1543 Signed By: <Electronically signed by Reji Frausto DO> 10/29/23 9198 [facility] Work Phone: Evaluation note* Diagnosis Hypertensive urgency- Primary [facility] Information[facility] Other Evaluation noteNo assessment information available [facility] Work Phone: Evaluation note* Diagnosis Onset Date Resolution Status Change in bowel habits acute Primary hypertension acute Rotator cuff arthropathy of right shoulder acute Hx of malignant neoplasm of colon noneactive Pain in right shoulder nonea ctive [facility] Work Phone: Evaluation note* Diagnosis Onset Date Resolution Status Change in bowel habits acute Primary hypertension acute Rotator cuff arthropathy of right shoulder acute Hx of malignant neoplasm of colon noneactive Pain in right shoulder nonea ctive Primary hypertension acute Rotator cuff arthropathy of right shoulder acute Pain in right shoulder nonea ctive Change in bowel habits acute [facility] Work Phone: Evaluation note* Diagnosis Onset Date Resolution Status ST elevation myocardial infa rction (STEMI) of inferior wall acute [facility] Work Phone: Evaluation note* Diagnosis Onset Date Resolution Status ASHD (arteriosclerotic heart disease) acute Hypercholesterolemia acute Lung nodule acute Medication side effects acut e Nicotine addiction acute Primary hypertension acute Shortness of breath acute [facility] Work Phone: evaluation note* Diagnosis Onset Date Resolution Status ASHD (arteriosclerotic heart disease) acute Hypercholesterolemia acute IBS (irritable bowel syndrome) acute Lung nodule acute Nicotine addiction acute Primary hypertension acute ASHD (arteriosclerotic heart disease) acute Hypercholesterolemia acute IBS (irritable bowel syndrome) acute Primary hypertension acute [facility] Work Phone: Evaluation note* Diagnosis Onset [...] bowel syndrome) acute Intermittent abdominal pain acute [facility] Work Phone: Evaluation note* Diagnosis Coronary artery disease, unspecified vessel or lesion type, unspecified whether angina present, unspecified whether [place] or transplanted heart History of PTCA Postsurgical percutaneous transluminal coronary angioplasty status History of ST elevation myocardial infarction (STEMI) Shortness of breath Former smoker Personal history of tobacco use, presenting hazards to health BMI 26.0-26.9,adult Hyperlipidemia, unspecified hyperlipidemia type documented in this encounter [facility] Work Phone: History and physical note Author Reji Frausto [facility] October 27, 2023 6:21pm Note Date/Time October 27, 2023 5:5 1pm [facility] [address] [place] [address] Cardiology H&P Signed Patient: Genny Barboza MR#: [id number] [id number] : 1940 Acct:[id number] Age/Sex: 83 / F Adm Date: 4 Loc: Room: Type: [facility] Attending Dr: Reji Frausto DO Copies to: [...] administered under my direction, patient arrived in [employer] at 1756 and underwent primary PCI at [...] critical care time were devoted to ER staff,[employer] Coiling Machine Operator staff, nursing staff, patient and family both pre and post procedurally. Review of Systems Review of Systems All other systems reviewed & are negative unless noted below or in HPI Constitutional Constitutional: Reports as per HPI Cardiovascular Cardiovascular: Reports as per HPI and Reports chest pain at rest [facility] Medical History Lung nodule CT: 1.7cm nodule [...] x10E3/uL Lymph # (Auto) 2.2 (1.00-4.8) x10E3/uL [place] # (Auto) 0.7 (0.0-0.8) x10E3/uL Eos # [...] results cardiology: sinus rhythm EKG shows: bradycardia OK, pacemaker, normal Myocardial infarction: inferior OK (acute or recent) A&P - Cardiology (1) ST elevation myocardial infarction (STEMI) of inferior wall: Code(s): I21.19 - ST elevation (STEMI) myocardial infarction involving other coronary artery of inferior wall Plan Proceed with emergency cath and PCI Documented By: Reji Frausto DO 10/27/23 1750 Signed By: <Electronically signed by Reji Frausto DO> 10/27/23 1821 [facility] Work Phone: History general Narrative [...] History CYSTOSCOPY Hospitalization History SEE SURGICAL HX [facility] Other Hospital Discharge instructions Additional Instructions We evaluated you for your shortness of breath. We discussed this is most likely due to your Brilinta. Please see your bevel operator this afternoon at your previously scheduled appointment. Please follow close with your primary care doctor as well. Please return to the emergency department if you develop any worsening or concerning symptoms.[facility] Work Phone: Reason for referral (narrative)* Consultation (Routine) - Authorized Specialty Diagnoses / Procedures Referred By Contac t Referred To Contact Cardiology Diagnoses Coronary artery disease, unspecified vessel or lesion type, unspecified whether angina present, unspecified whether [place] or transplanted heart Procedures Follow Up In Cardiology Inderjit Frausto DO [address] [facility], [facility] 2, [address] [address] Inderjit Frausto DO [address] [facility] 2, [address] [address] Referral ID Status Reason Start Date Expiration Date V isits Requested Visits Authorized [id number] Authorized 11/07/2023 11/06/2024 1 1 * Consultation (Routine) - Authorized Specialty Diagnoses / Procedures Referred By Jamel t Referred To Contact Cardiac Rehabilitation Diagnoses Coronary artery disease, unspecified vessel or lesion type, unspecified whether angina present, unspecified whether [place] or transplanted heart History of PTCA History of ST elevation myocardial infarction (STEMI) Inderjit Frausto DO [address] [facility] 2, [address] [place] [address] Referral ID Status Reason Start Date Expiration Date Visits Requested Visits Authorized [id number] Authorized Specialty Services Required 11/07/2023 11/06/2024 1 1 Scheduling Instructions [facility] Work Phone: Summary Purpose Family History Relationship [...] Reason Comments Headache Hypertension Reason Comments TCM OK on 10/27/23 at [facility] INFORMATION SOURCE (unrecogn ized section and content) DATE CREATED AUTHOR 05/23/2022 [facility] DATE CREATED AUTHOR AUTHOR'S ORGANIZ ATION 05/25/2022 [facility] DATE CREATED AUTHOR AUTHOR'S ORGANIZ ATION 04/25/2023 [facility] EPIC DATE CREATED AUTHOR AUTHOR'S ORGANIZ ATION 01/10/2024 [facility] DATE CREATED AUTHOR AUTHOR'S ORGANIZ ATION 03/09/2024 [facility] Care Teams (unrecognized sec tion [...] December 12, 2023 End: December 12, 2023 Adolescent Coordinator Relationship Specialty Start Date End Date Branden uD DO [address] [place] [address] PCP - General Internal Medicine 11/07/23 Maura Andres RN Care Drilling Foreman 10/30/23 Goals (unrecognized section and content) Goals [...] BE BASED ON THE PRIMARY CLINICAL RECORDS. [facility] [employer] [facility]. provides no warranty or guarantee of the accuracy or completeness of information in this document.
[2024-03-13 16:08] LABS: Deamidated Gliadin Abs, IgA 3 units (0-19); Deamidated Gliadin Abs, IgG 2 units (0-19); Endomysial Antibody IgA Negative (Negative); Immunoglobulin A, Qn, Serum 171 mg/dL (64-422); t-Transglutaminase (tTG) IgA <2 U/mL (0-3); t-Transglutaminase (tTG) IgG 6 U/mL (0-5)
== END 2024-03-12 14:38 | disposition home or self-care (01) ==
LOC: LAB 14:38
PROVIDERS: PCP Internal Medicine; Visit Provider Internal Medicine
DX: E78.00 Pure hypercholesterolemia, unspecified (principal); I10 Essential (primary) hypertension; I25.10 Atherosclerotic heart disease of native coronary artery without angina pectoris; R19.7 Diarrhea, unspecified
CPT/HCPCS: 36415; 80053; 80061; 82784; 85025; 86231; 86258; 86364

== ENCOUNTER 2024-04-02 13:53 | Outpatient (OUT) | payer MEDICARE, SELFPAY ==
--- NOTE | 2024-04-02 13:58 | MM_ITS ---
Patient Name: EVER BREWER MR#: [id number] : 1940 Exam Date: 04/02/2024 Ordering Doctor: DR Branden Du D.O. RADIOLOGY REPORT PROCEDURE: MM TOMOSYNTHESIS SCREENING BI COMPARISON: MG MAMM SCREEN 3D VINNY CAD, 02/08/2022. MM TOMOSYNTHESIS SCREENING BI, 03/06/2023. INDICATIONS: Screening Calculator Name NCI Breast Cancer Risk Assessment Tool 5 Year Breast Cancer Risk 1.20% Lifetime Breast Cancer Risk 1.50% Personal Breast Cancer No Personal Ovarian Cancer No Treatments bowel resection Family Cancers None LOCATION: [facility] BREAST COMPOSITION: There are scattered areas of fibroglandular density. FINDINGS: DIAGNOSTIC CATEGORY 2--BENIGN FINDING. NO CHANGE FROM COMPARISON. Scattered benign-appearing calcifications are present. Scattered benign-appearing lymph nodes are present. RIGHT BREAST: No significant suspicious finding. LEFT BREAST: No significant suspicious finding. RECOMMENDATIONS: ROUTINE MAMMOGRAM AND CLINICAL EVALUATION IN 12 MONTHS. PLEASE NOTE: A NORMAL MAMMOGRAM DOES NOT EXCLUDE THE POSSIBILITY OF BREAST CANCER. A CLINICALLY SUSPICIOUS PALPABLE LUMP SHOULD BE BIOPSIED. Dictated by: Ulices Addison MD on 04/02/2024 at 15:06 Approved by: Ulices Addison MD on 04/02/2024 at 15:15
== END 2024-04-02 13:54 | disposition home or self-care (01) ==
LOC: MAMMO 13:53
PROVIDERS: PCP Internal Medicine; Visit Provider Internal Medicine
DX: Z12.31 Encounter for screening mammogram for malignant neoplasm of breast (principal); E78.00 Pure hypercholesterolemia, unspecified; I10 Essential (primary) hypertension; I25.10 Atherosclerotic heart disease of native coronary artery without angina pectoris
CPT/HCPCS: 77063; 77067

== ENCOUNTER 2024-04-28 14:45 | Outpatient (OUT) | payer MEDICARE, SELFPAY ==
[2024-04-28 15:04] LABS: Basophils Absolute Auto 0.1 10^3/uL (0.0-0.1); Basophils Percent Auto 0.7 % (0.2-2.0); Eosinophils Absolute Auto 0.1 10^3/uL (0.0-0.7); Eosinophils Percent Auto 0.8 % (0.9-7.0); Hematocrit 39.8 % (36.0-48.0); Hemoglobin 13.1 g/dL (12.0-16.0); Immature Granulocytes Abs Auto 0.01 10^3/uL (0.00-0.03); Immature Granulocytes Pct Auto 0.1 % (0.0-0.5); Lymphocytes Absolute Auto 1.8 10^3/uL (1.2-3.8); Lymphocytes Percent Auto 23.8 % (20.5-60.0); Mean Corpuscular HGB Conc 32.9 g/dL (29.9-35.2); Mean Corpuscular Volume 97.1 fL (81.0-99.0); Mean Platelet Volume 9.5 fL (9.5-13.5); Monocytes Absolute Auto 0.8 10^3/uL (0.3-0.8); Monocytes Percent Auto 10.2 % (1.7-12.0); Neutrophils Absolute Auto 4.9 10^3/uL (1.4-6.5); Neutrophils Percent Auto 64.4 % (43.0-75.0); Platelet Count 263 10^3/uL (150-450); Red Cell Distribution Width 13.4 % (11.0-15.0); White Blood Count 7.6 10^3/uL (4.0-11.0)
--- OUTSIDE RECORDS SUMMARY | 2024-04-28 15:07 | XMS_ITS | CCD ---
Author Organization [facility] CliniSymn Care Team Providers Care Seater Grinder Name Role Phone Unavailable Primary Care Provider Unavailjuan ramon DU, DR OTERO Primary Care Unavailable MAUREEN ., ALBERTO Admitting Unavailable MAUREEN ., ALBERTO Attending Unavailable MAUREEN ., ALBERTO Consulting Unavailable PHILLY, DR OTERO Admitting Unavailable BALL, DR OTERO Attending Unavailable BALL, DR OTERO Consulting Unavailable BALL, DR OTERO Primary Care Unavailable CHARLES, DR JOAQUIN Canales Consulting Unavailable PHILLY, DR OTERO Admitting Unavailable BALL, DR OTERO Attending Unavailable BALL, DR OTERO Consulting Unavailable BALL, DR OTERO Primary Care Unavailable RACIEL, DR KALPANA Phelps Consulting Unavailable PROVIDER, UNKNOWN Attending Unavailable PROVIDER, UNKNOWN Admitting Unavailable Branden Du Unavailable ELENA HASSAN Attending Unavailable DO Branden Du Primary Care Provider [phone] DO Branden Du Attending Provider DO Branden Du Primary Care Provider Philly, DO Otero Attending Provider [phone] FLAKITA Álvarez Emergency Provider [phone] DO Branden Du Primary Care Provider [phone] DO Reji Saenz Admit Provider DO Reji Saenz Attending Provider [phone] MD Sobia Okeefe Other Provider [phone] DO Rona Andres Emergency Provider [phone] Branden Du Primary Care Unavailable Rona Andres Attending Unavailable Rona Andres Admitting Unavailable Branden Du Admitting Unavailable Branden Du Attending Unavailable Philly, Branden Primary Care Unavailable Sobia Okeefe Consulting Unavaila ble Reji Saenz Attending Unavailable Reji Saenz Admitting Unavailable Branden Du Primary Care Unavailable Sylvester Monk Attending Unavailable Sylvester Monk Admitting Unavailable Branden Du Primary Care Unavailable Maura Andres RN Unavailable Unavailable Branden Du DO Primary Care Provider INDERJIT SAENZ Attending Unavailable BRANDEN DU Primary Care Unavailable INDERJIT SAENZ Attending Unavailable BRANDEN DU Primary Care Unavailable Allergies Allergy Classification Reported Allergen(s) Allergy Type Date of Onset Reaction(s) Facility (2 sources) Penicillins; Translations: [PENICILLINS] Drug allergy (disorder) 4 [facility] Repository (12 sources) Substance with penicillin structure and antibacterial mechanism of action (substance) Drug allergy 4 Unknown [facility] Other (1 source) Penicillins Drug allergy (disorder) 4 [facility] Repository (2 sources) Penicillins Propensity to adverse reactions 4 Unknown [facility] Medications Current Medications Medication Drug Class(es) Dates Sig (Normalized) Sig (Original) aspirin 81 mg delayed release oral tablet (7 sources) Platelet Aggregation Inhibitor, Nonsteroidal Anti-inflammatory Drug Start: 10-29-2023 take 1 tablet by mouth once daily aspirin 81 mg EC tablet Take 1 tablet (81 mg) by mouth once daily. 10/29/2023 Active atorvastatin 80 mg oral tablet (7 sources) HMG-CoA Reductase Inhibitor Start: 10-29-2023 take 1 tablet by mouth once daily atorvastatin (Lipitor) 80 mg tablet Take 1 tablet (80 mg) by mouth once daily. 10/29/2023 Active clopidogrel 75 mg oral tablet (1 source) P2Y12 Platelet Inhibitor Start: 12-20-2023 End: 12-19-2024 clopidogrel (Plavix) 75 mg tablet Indications: History of PTCA , History of ST elevation myocardial infarction (STEMI) , Coronary artery disease, unspecified vessel or lesion type, unspecified whether angina present, unspecified whether [place] or transplanted heart Take 1 tablet (75 mg) by mouth once daily. On the first day of starting the medication take 4 tablets by mouth. Then take 1 tablet by mouth each day after. 90 tablet 3 12/20/2023 12/19/2024 Active dicyclomine hydrochloride 10 mg oral capsule (2 sources) Anticholinergic Start: 12-12-2023 dicyclomine (Bentyl) 10 mg capsule 1 capsule (10 mg) 2 times a day. 12/12/2023 Active losartan potassium 50 mg oral tablet (20 sources) Angiotensin 2 Receptor Niharika Start: 12-12-2023 take 100 mg by mouth twice daily Losartan Active 100 MG PO Twice daily December 12, 2023 1:23pm Start: 11-20-2023 End: 11-19-2024 take 50 mg by mouth twice daily [...] Start: 05-22-2022 take 1 tablet by perez twice daily Losartan Potassium 50 MG 1 [...] Start: 05-22-2022 take 1 tablet by perez every twenty-four hours Losartan Potassium 25 MG 1 tablet Orally Once a day for 30 days Apr, Active metoprolol tartrate 50 mg oral tablet (10 sources) beta-Adrenergic Niharika Start: 11-29-2023 take 50 mg by mouth twice daily Metoprolol Tartrate Active 50 MG PO Twice daily 180 90 November 29, 2023 3:23pm Start: 10-29-2023 End: 11-06-2024 take 1 tablet by mouth twice daily metoprolol tartrate (Lopressor) 25 mg tablet Indications: Coronary artery disease, unspecified vessel or lesion type, unspecified whether angina present, unspecified whether [place] or transplanted heart , History of ST elevation myocardial infarction (STEMI) Take 1 tablet (25 mg) by mouth 2 times a day. 180 tablet 3 11/07/2023 11/06/2024 Active multivit with minerals/lutein (MULTIVITAMIN 50 PLUS ORAL) (2 sources) Start: 06-20-2023 take 1 tablet by mouth once daily multivit with minerals/lutein (MULTIVITAMIN 50 PLUS ORAL) Take 1 tablet by mouth once daily. 06/20/2023 Active Multivitamin preparation (7 sources) Start: 06-20-2023 take 1 tablet by mouth once daily Multivitamin Active 1 TAB PO Daily June 20, 2023 12:00am nitroglycerin 0.4 mg sublingual tablet (7 sources) Nitrate Vasodilator Start: 10-29-2023 nitroglycerin (Nitrostat) 0.[address] 1 tablet (0.4 mg) under the tongue every 5 minutes if needed for chest pain. 10/29/2023 Active omeprazole 40 mg delayed release oral capsule (20 sources) Proton Pump Inhibitor Start: 10-07-2023 End: 10-28-2023 take 1 capsule by mouth once daily before mealtime Omeprazole Discontinued 0 .ROUTE .COMPLEX October 07, 2023 12:27pm October 28, 2023 5:26am TAKE ONE CAPSULE BY MOUTH ONCE DAILY IN THE MORNING, 30 MINUTES BEFORE MEAL Start: 02-08-2023 End: 10-07-2023 take 40 mg by mouth once daily Omeprazole Active 40 MG PO Daily October 28, 2023 12:00am sulfamethoxazole 800 mg / trimethoprim 160 mg oral tablet (11 sources) Dihydrofolate Reductase Inhibitor Antibacterial, Sulfonamide Antimicrobial Start: 02-19-2023 take 1 tablet by mouth every twelve hours Sulfamethoxazole-Trimethoprim 800-160 MG 1 tablet Orally Twice a day for 5 days Jan, Active ticagrelor 90 mg oral tablet (8 sources) Start: 10-29-2023 End: 11-06-2024 take 1 tablet by mouth twice daily ticagrelor (Brilinta) 90 mg tablet Indications: Coronary artery disease, unspecified vessel or lesion type, unspecified whether angina present, unspecified whether [place] or transplanted heart , History of PTCA Take 1 tablet (90 mg) by mouth 2 times a day. 180 tablet 3 11/07/2023 12/20/2023 Discontinued (Therapy completed) Completed/Discontinued Medications Medication Drug Class(es) Dates Sig (Normalized) Sig (Original) amLODIPine 5 mg oral tablet (17 sources) Dihydropyridine Calcium Channel Niharika Start: 11-12-2023 [...] Start: 08-27-2022 take 1 tablet by perez th every twenty-four hours Meloxicam 15 MG 1 tablet Orally Once a day Aug, Active ondansetron 4 mg disintegrating oral tablet (20 sources) Serotonin-3 Receptor Antagonist Start: 05-17-2023 End: 06-20-2023 take 4 mg by mouth every six hours Ondansetron Discontinued 4 MG PO Every 6 hours May 17, 2023 1:00am June 20, 2023 2:35pm Start: 05-04-2022 take 1 tablet by perez th every six hours as needed for nausea [...] Episodic Coronary atherosclerosis and other heart disease (20 sources) Coronary arteriosclerosis; Translations: [Atherosclerotic heart disease of [place] coronary artery without angina pectoris] Onset: 11-07-2023 Resolved: 11-07-2023 11-10-2023 Chronic Disorders of lipid metabolism (13 sources) Hypercholesterolemi a; Translations: [Pure hypercholesterolemi a, [...] ; Translations: [Hypertensive urgency] Chronic Menopausal disorders (20 sources) Decreased estrogen level; 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 Mycoses (20 sources) Tinea corporis; Translations: [Tinea corporis] Episodic Nausea and vomiting (1 source) Nausea Episodic Other aftercare (1 source) Other m[facility] (current) drug therapy; Translations: [OTH RETIREMENT CURRENT DRUG THERAPY] Onset: 05-22-2022 Episodic Other [...] finding of lung field] 07-24-2023 Episodic Other non-traumatic joint disorders (8 sources) [...] Episodic Other nutritional; endocrine; and metabolic disorders (4 sources) Overweight in adulthood with body mass index of 25 or more but less than 30; Translations: [Body mass index (BMI) 26.0-26.9, adult] Onset: 11-07-2023 11-07-2023 Episodic Other screening for suspected conditions [...] other specified parts of digestive tract Episodic Spondylosis; intervertebral disc disorders; other back problems (20 sources) Lumbar spondylosis; Translations: [Spondylosis without myelopathy or radiculopathy, lumbar region] Chronic Substance-related disorders (20 sources) Tobacco user; Translations: [Nicotine dependence, cigarettes, 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 Superficial injury; contusion (1 source) Contusion of right upper arm, initial encounter Episodic Past or Other Problems Problem Classification Problem Date Documented Da te Episodic/Chronic Coronary atherosclerosis and other heart disease (2 sources) Coronary angioplasty status; Translations: [Coronary angioplasty status] Onset: 11-07-2023 Episodic Esophageal disorders (14 sources) Esophageal disorders; Translations: [Gastroesophageal reflux disease with esophagitis without hemorrhage] Malaise and fatigue (5 sources) Other fatigue; Translations: [Fatigue] Onset: 12-20-2023 Episodic Other gastrointestinal disorders (4 sources) Change in bowel habit; Translations: [Other symptoms involving digestive system] Onset: 07-25-2023 05-21-2023 Episodic Other lower respiratory disease (12 sources) Solitary pulmonary nodule; Translations: [Solitary pulmonary nodule] Onset: 08-11-2021 Episodic Other lower respiratory disease (9 sources) Dyspnea; Translations: [Shortness of breath] Onset: 11-07-2023 11-05-2023 Episodic Other lower respiratory disease (3 sources) [...] index (BMI) 26.0-26.9, adult] Onset: 11-07-2023 Episodic Residual codes; unclassified (2 sources) Family history of disorder; Translations: [Family history of ischemic heart disease and other diseases of the circulatory system] Onset: 11-07-2023 Resolved: 11-07-2023 11-07-2023 Episodic Screening and history of mental health and substance abuse codes (7 sources) Personal history of nicotine dependence; Translations: [Ex-smoker] Onset: 05-22-2022 11-07-2023 Episodic Syncope (4 sources) Near syncope; Translations: [Syncope and collapse] Onset: 12-20-2023 12-20-2023 Episodic Unclassified (20 sources) Acute bilateral low back pain without sciatica; Translations: [Acute bilateral low back pain without sciatica] Unclassified (1 source) Acute right-sided low back pain without sciatica M54.50 Unclassified (2 sources) Onset: 11-07-2023 Resolved: 12-20-2023 11-07-2023 Viral infection (20 sources) Disease caused by 2019-nCoV; Translations: [COVID-19] Results Test Name Value Interpretation Reference Range Facility ECG 12 Leadon 12-20-2023 Normal sinus rhythm, leftward axis, low voltage, nonspecific ST-T wave abnormality, abnormal ECG [facility] Work Phone: Activated partial thrombopla stin time (aPTT) in platelet poor plasma by coagulation aOrdered By: PROVIDER TEMP on 11-05-2023 aPTT Coag (PPP) [Time] 30.2 s 25.1-36.5 [facility] Comment on above: A hematocrit value g reater than 55% may lead to inaccurate results in coagulation testing. Patients having hematocrit values >55% require a special collection tube for coagulation studies. Please contact the laboratory at [phone] for redraw instructions. Alanine aminotransferase [En zymatic activity/volume] in Serum or PlasmaOrdered By: PROVIDER TEMP on 11-05-2023 ALT [Catalytic activity/Vol] 27 U/L Normal 7-52 [facility] Comment on above: Performed By: #### P TT, HS TROP, CBC, PT, BNP, CMP, CK #### [facility] [address] [place] [id number] [place] Albumin [Mass/volume] in Ser um or Plasma by Bromocresol green (BCG) dye binding methoOrdered By: PROVIDER TEMP on 11-05-2023 Albumin BCG dye [Mass/Vol] 4.1 g/dL 3.5-5.7 [facility] Alkaline phosphatase [Enzyma tic activity/volume] in Serum or PlasmaOrdered By: PROVIDER TEMP on 11-05-2023 ALP [Catalytic activity/Vol] 99 U/L Normal 34-104 [facility] Comment on above: Performed By: #### P TT, HS TROP, CBC, PT, BNP, CMP, CK #### [facility] [address] [place] [id number] [place] Aspartate aminotransferase [ Enzymatic activity/volume] in Serum or PlasmaOrdered By: PROVIDER TEMP on 11-05-2023 AST [Catalytic activity/Vol] 19 U/L Normal 13-39 [facility] Comment on above: Performed By: #### P TT, HS TROP, CBC, PT, BNP, CMP, CK #### [address] Automated basophil %Ordered By: PROVIDER TEMP on 11-05-2023 Basophils/100 WBC (Bld) 0.8 % Normal . [facility] Comment on above: Performed By: #### P TT, HS TROP, CBC, PT, BNP, CMP, CK #### [address] Automated basophil countOrde red By: PROVIDER TEMP on 11-05-2023 Basophils (Bld) [#/Vol] 0.1 10*3/uL Normal 0.0-0.2 [facility] Comment on above: Result Comment: PERF ORMED BY: [place] [address] PATHOLOGIST [employer]ING MACHINE OPERATOR KAYLIN ARDON M.D. Performed By: #### P TT, HS TROP, CBC, PT, BNP, CMP, CK #### [address] Automated blood monocyte cou ntOrdered By: PROVIDER TEMP on 11-05-2023 Monocytes (Bld) [#/Vol] 0.6 10*3/uL Normal 0.0-0.8 [facility] Comment on above: Performed By: #### P TT, HS TROP, CBC, PT, BNP, CMP, CK #### [address] Automated eosinophil %Ordere d By: PROVIDER TEMP on 11-05-2023 Eosinophils/100 WBC (Bld) 0.8 % Normal . [facility] Comment on above: Performed By: #### P TT, HS TROP, CBC, PT, BNP, CMP, CK #### [address] Automated eosinophil countOr dered By: PROVIDER TEMP on 11-05-2023 Eosinophils (Bld) [#/Vol] 0.1 10*3/uL Normal 0.0-0.45 [facility] Comment on above: Performed By: #### P TT, HS TROP, CBC, PT, BNP, CMP, CK #### [address] Automated monocyte %Ordered By: PROVIDER TEMP on 11-05-2023 Monocytes/100 WBC (Bld) 9.6 % Normal . [facility] Comment on above: Performed By: #### P TT, HS TROP, CBC, PT, BNP, CMP, CK #### [address] Automated neutrophil %Ordere d By: PROVIDER TEMP on 11-05-2023 Neutrophils/100 WBC (Bld) 73.8 % Normal . [facility] Comment on above: Performed By: #### P TT, HS TROP, CBC, PT, BNP, CMP, CK #### [address] BNP ser/plasOrdered By: PROV IDER TEMP on 11-05-2023 Natriuretic peptide B (Bld) [Mass/Vol] 293.0 pg/mL High 5-100 [facility] Comment on above: Result Comment: PERF ORMED BY: [place] [address] PATHOLOGIST [employer] SPRING MACHINE OPERATOR KAYLIN ARDON M.D. Performed By: #### P TT, HS TROP, CBC, PT, BNP, CMP, CK #### [address] Bilirubin.total [Mass/volume ] in Serum or PlasmaOrdered By: PROVIDER TEMP on 11-05-2023 Bilirubin [Mass/Vol] 0.5 mg/dL Normal 0.3-1.0 [facility] Comment on above: Performed By: #### P TT, HS TROP, CBC, PT, BNP, CMP, CK #### [address] angio chest PE protocolon 11-05-2023 CT angio chest PE protocol [facility] [address] [place] [address] CT Scan Report Signed Patient: Genny Brewer MR#: [id number] : 1940 Acct:[id number] Age/Sex: 83 / F ADM Date: 11/05/23 Loc: ER Room: Type: [facility] ER Attending Dr: Copies to: Rona Andres [...] Endy Crowley M.D.11/05/2023 10:53 AM Dictation Location: [place] [address] Transcribed By: [facility] 11/05/23 1053 Dictated By: Endy Crowley II, MD 11/05/23 1045 Signed By: 11/05/23 1053 Normal [facility] Calcium [Mass/volume] in Ser um or PlasmaOrdered By: PROVIDER TEMP on 11-05-2023 Calcium [Mass/Vol] 9.6 mg/dL Normal 8.6-10.3 [facility] Comment on above: Performed By: #### P TT, HS TROP, CBC, PT, BNP, CMP, CK #### [facility] [address] [place] [address] Carbon dioxide, total [Moles /volume] in Serum or PlasmaOrdered By: PROVIDER TEMP on 11-05-2023 CO2 [Moles/Vol] 22.2 mmol/L Normal 21.0-31.0 [facility] Comment on above: Performed By: #### P TT, HS TROP, CBC, PT, BNP, CMP, CK #### [facility] [address] Chloride [Moles/volume] in S carolyne or PlasmaOrdered By: PROVIDER TEMP on 11-05-2023 Chloride [Moles/Vol] 109 mmol/L High 98-107 [facility] Comment on above: Performed By: #### P TT, HS TROP, CBC, PT, BNP, CMP, CK #### [facility] [address] [place] [address] [place] Complete Blood Count Auto Di ffon 11-05-2023 Mean Corpuscular HGB Conc 34.2 g/dL Normal 32.0-35.0 [facility] Comment on above: Performed By: #### P TT, HS TROP, CBC, PT, BNP, CMP, CK #### [facility] [address] [place] [address] [place] Monocytes/100 WBC (Bld) 20.41 % High 0.00-20.00 [facility] Comment on above: Result Comment: For adults in ED, MDW > 20.0 may be associated with a higher risk of sepsis during the first 12 hrs of hospital admission Performed By: #### P TT, HS TROP, CBC, PT, BNP, CMP, CK #### [address] NRBC% 0.1 /100{WBC} Normal 0-0.5 [facility] Comment on above: Performed By: #### P TT, HS TROP, CBC, PT, BNP, CMP, CK #### [address] Comprehensive Metabolic Pane david 11-05-2023 Albumin [Mass/Vol] 4.1 g/dL Normal 3.5-5.7 [facility] Comment on above: Performed By: #### P TT, HS TROP, CBC, PT, BNP, CMP, CK #### [address] Creatinine Clr Calc Pharmacy 42.53 Normal [facility] Comment on above: Result Comment: PERF ORMED BY: [place] [address] PATHOLOGIST [employer] MACHINE OPERATOR KAYLIN ARDON M.D. Performed By: #### P TT, HS TROP, CBC, PT, BNP, CMP, CK #### [address] GFR/1.73 sq M.predicted MDRD (S/P/Bld) [Vol rate/Area] mL/min/{1.73_m2} Normal [facility] Comment on above: Performed By: #### P TT, HS TROP, CBC, PT, BNP, CMP, CK #### [address] Creatine kinase [Enzymatic a ctivity/volume] in Serum or PlasmaOrdered By: PROVIDER TEMP on 11-05-2023 CK [Catalytic activity/Vol] 66 U/L Normal 30-223 [facility] Comment on above: Performed By: #### P TT, HS TROP, CBC, PT, BNP, CMP, CK #### [address] Creatinine [Mass/volume] in Serum or PlasmaOrdered By: PROVIDER ANGEL on 11-05-2023 Creatinine [Mass/Vol] 0.87 mg/dL Normal 0.60-1.20 [facility] Comment on above: Performed By: #### P TT, HS TROP, CBC, PT, BNP, CMP, CK #### [facility] [address] [place] [address] [place] ECG 12 lead ECGon 11-05-2023 ECG 12 lead ECG [facility] [address] [place] [address] Electrocardiograph Report Signed Patient: Genny Brewer MR#: [id number] : 1940 Acct:[id number] Age/Sex: 83 / F ADM Date: 11/05/23 Loc: ER Room: Type: [facility] ER Attending Dr: Ordering Provider: Rona Andres [...] By Sim Gimenez DO 1144 Normal [facility] Erythrocyte distribution wid th [Ratio] by Automated countOrdered By: MEGGAN ORTIZ on 11-05-2023 Erythrocyte distribution width (RBC) [Ratio] 13.4 % Normal 11.9-15.3 [facility] Comment on above: Performed By: #### P TT, HS TROP, CBC, PT, BNP, CMP, CK #### [facility] [address] [place] [id number] [place] Erythrocytes [#/volume] in B lood by Automated countOrdered By: PROVIDER TEMP on 11-05-2023 RBC (Bld) [#/Vol] 4.19 10*6/uL Normal 3.60-5.00 [facility] Comment on above: Performed By: #### P TT, HS TROP, CBC, PT, BNP, CMP, CK #### [facility] [address] [place] [id number] [place] Glucose [Mass/volume] in Ser um or PlasmaOrdered By: PROVIDER TEMP on 11-05-2023 Glucose [Mass/Vol] 104 mg/dL High 70-100 [facility] Comment on above: ADA recommended refe rence rangeRandom Glucose Reference Range is dependent on time and content of last meal. Glucose of more than 200 mg/dL in a nonstressed, ambulatory subject supports the diagnosis of Diabetes Mellitus. Result Comment: [place] om Glucose Reference Range is dependent on time and content of last meal. Glucose of more than 200 mg/dL in a nonstressed, ambulatory subject supports the diagnosis of Diabetes Mellitus. ADA recommended reference range Performed By: #### P TT, HS TROP, CBC, PT, BNP, CMP, CK #### [facility] [address] [place] [id number] [place] Hematocrit [Volume Fraction] of Blood by Automated countOrdered By: PROVIDER TEMP on 11-05-2023 Hematocrit (Bld) [Volume fraction] 40.1 % Normal 34.0-46.4 [facility] Comment on above: Performed By: #### P TT, HS TROP, CBC, PT, BNP, CMP, CK #### [facility] [address] [place] [address] [place] Hemoglobin [Mass/volume] in BloodOrdered By: PROVIDER TEMP on 11-05-2023 Hemoglobin (Bld) [Mass/Vol] 13.7 g/dL Normal 11.8-15.4 [facility] Comment on above: Performed By: #### P TT, HS TROP, CBC, PT, BNP, CMP, CK #### [facility] [address] [place] [address] [place] INR in Platelet poor plasma by Coagulation assayOrdered By: PROVIDER TEMP on 11-05-2023 INR Coag (PPP) [Relative time] 0.9 {INR} Normal [facility] Comment on above: INR Therapeutic Rang e [...] L IPID, CBC, HS TROP, BMP #### [facility] [address] Leukocytes [#/volume] correc kristi for nucleated erythrocytes in Blood by Automated counOrdered By: PROVIDER TEMP on 11-05-2023 WBC corrected for nucl RBC Auto (Bld) [#/Vol] 6.7 10*3/uL 3.8-11.6 [facility] Leukocytes [#/volume] in Blo od by Automated countOrdered By: PROVIDER TEMP on 11-05-2023 WBC (Bld) [#/Vol] 6.7 10*3/uL Normal 3.8-11.6 [facility] Comment on above: Performed By: #### P TT, HS TROP, CBC, PT, BNP, CMP, CK #### [facility] [address] [place] [address] [place] Lymphocytes [#/volume] in Bl ood by Automated countOrdered By: PROVIDER TEMP on 11-05-2023 Lymphocytes (Bld) [#/Vol] 1.0 10*3/uL Normal 1.00-4.8 [facility] Comment on above: Performed By: #### P TT, HS TROP, CBC, PT, BNP, CMP, CK #### [facility] [address] Lymphocytes/100 leukocytes i n Blood by Automated countOrdered By: PROVIDER TEMP on 11-05-2023 Lymphocytes/100 WBC (Bld) 15.0 % Normal . [facility] Comment on above: Performed By: #### P TT, HS TROP, CBC, PT, BNP, CMP, CK #### [address] MCH [Entitic mass] by Automa kristi countOrdered By: PROVIDER TEMP on 11-05-2023 MCH (RBC) [Entitic mass] 32.6 pg Normal 24.7-34.3 [facility] Comment on above: Performed By: #### P TT, HS TROP, CBC, PT, BNP, CMP, CK #### [address] MCHC Auto (RBC) [Mass/Vol]Or dered By: PROVIDER TEMP on 11-05-2023 MCHC (RBC) [Mass/Vol] 34.2 g/dL 32.0-35.0 [facility] MCV [Entitic volume] by Auto mated countOrdered By: PROVIDER TEMP on 11-05-2023 MCV (RBC) [Entitic vol] 95.5 fL Normal 80-100 [facility] Comment on above: Performed By: #### P TT, HS TROP, CBC, PT, BNP, CMP, CK #### [facility] [address] [place] [address] Monocyte distribution width [Entitic volume] in Blood by AutomatedOrdered By: PROVIDER TEMP on 11-05-2023 Monocyte distribution width Auto (Bld) [Entitic vol] 20.41 % High 0.00-20.00 [facility] Comment on above: For adults in ED, MD W > 20.0 may be associated with a higher risk of sepsis during the first 12 hrs of hospital admission Neutrophils [#/volume] in Bl ood by Automated countOrdered By: PROVIDER TEMP on 11-05-2023 Neutrophils (Bld) [#/Vol] 5.0 10*3/uL Normal 1.8-7.7 [facility] Comment on above: Performed By: #### P TT, HS TROP, CBC, PT, BNP, CMP, CK #### [facility] [address] [place] [address] No Panel InformationOrdered By: PROVIDER TEMP on 11-05-2023 Estimated GFR (CKD-EPI) > 60.0 mL/Min [facility] Creatinine Clearance (Chem 42.53 [facility] Nucleated erythrocytes [Pres ence] in Blood by Automated countOrdered By: PROVIDER TEMP on 11-05-2023 Nucleated RBC Auto Ql (Bld) 0.1 /100{WBC} 0-0.5 [facility] Partial Thromboplastin Timeo n 11-05-2023 aPTT Coag (Bld) [Time] 30.2 s Normal 25.1-36.5 [facility] Comment on above: Result Comment: A he matocrit value greater than 55% may lead to inaccurate results in coagulation testing. Patients having hematocrit values >55% require a special collection tube for coagulation studies. Please contact the laboratory at [phone] for redraw instructions. PERFORMED BY: [place] [address] PATHOLOGIST [employer] MACHINE OPERATOR KAYLIN ARDON M.D. Performed By: #### L IPID, CBC, HS TROP, BMP #### [facility] [address] [place] [address] Platelet mean volume [Entiti c volume] in Blood by Automated countOrdered By: PROVIDER TEMP on 11-05-2023 Platelet mean volume (Bld) [Entitic vol] 8.0 fL Normal 6.3-10.7 [facility] Comment on above: Performed By: #### P TT, HS TROP, CBC, PT, BNP, CMP, CK #### [facility] [address] [place] [address] [place] Platelets [#/volume] in Bloo d by Automated countOrdered By: PROVIDER TEMP on 11-05-2023 Platelets (Bld) [#/Vol] 314 10*3/uL Normal 150-450 [facility] Comment on above: Performed By: #### P TT, HS TROP, CBC, PT, BNP, CMP, CK #### [facility] [address] Potassium [Moles/volume] in Serum or PlasmaOrdered By: PROVIDER TEMP on 11-05-2023 Potassium [Moles/Vol] 4.3 mmol/L Normal 3.5-5.1 [facility] Comment on above: Performed By: #### P TT, HS TROP, CBC, PT, BNP, CMP, CK #### [facility] [address] Protein [Mass/volume] in Ser um or PlasmaOrdered By: PROVIDER TEMP on 11-05-2023 Protein [Mass/Vol] 6.8 g/dL Normal 6.4-8.9 [facility] Comment on above: Performed By: #### P TT, HS TROP, CBC, PT, BNP, CMP, CK #### [address] Prothrombin time (PT)Ordered By: PROVIDER TEMP on 11-05-2023 PT Coag (PPP) [Time] 11.0 s Normal 9.0-12.9 [facility] Comment on above: A hematocrit value g reater than 55% may lead to inaccurate results in coagulation testing. Patients having hematocrit values >55% require a special collection tube for coagulation studies. Please contact the laboratory at [phone] for redraw instructions. Result Comment: A he matocrit value greater than 55% may lead to inaccurate results in coagulation testing. Patients having hematocrit values >55% require a special collection tube for coagulation studies. Please contact the laboratory at [phone] for redraw instructions. Performed By: #### L IPID, CBC, HS TROP, BMP #### [facility] [address] Serum globulin measurement b y calculation (mass/volume)Ordered By: PROVIDER TEMP on 11-05-2023 Globulin (S) [Mass/Vol] 2.7 g/dL Normal [facility] Comment on above: Performed By: #### P TT, HS TROP, CBC, PT, BNP, CMP, CK #### [facility] [address] [place] [address] Serum or plasma albumin/glob ulin mass ratioOrdered By: PROVIDER TEMP on 11-05-2023 Albumin/Globulin [Mass ratio] 1.5 {ratio} Normal [facility] Comment on above: Performed By: #### P TT, HS TROP, CBC, PT, BNP, CMP, CK #### [address] Serum or plasma anion gap de terminationOrdered By: PROVIDER TEMP on 11-05-2023 Anion gap [Moles/Vol] 12.1 mmol/L Normal 6.0-15.0 [facility] Comment on above: Performed By: #### P TT, HS TROP, CBC, PT, BNP, CMP, CK #### [address] Sodium [Moles/volume] in Ser um or PlasmaOrdered By: PROVIDER TEMP on 11-05-2023 Sodium [Moles/Vol] 139 mmol/L Normal 136-145 [facility] Comment on above: Performed By: #### P TT, HS TROP, CBC, PT, BNP, CMP, CK #### [address] Troponin I High Sensitivityo n 11-05-2023 Troponin I High Sensitivity 36.1 pg/mL High 0.0-15.0 [facility] Comment on above: Result Comment: PERF ORMED BY: [place] [address] PATHOLOGIST [employer] MACHINE OPERATOR KAYLIN ARDON M.D. Performed By: #### L IPID, CBC, HS TROP, BMP #### [address] Troponin I High Sensitivity 34.8 pg/mL High 0.0-15.0 [facility] Comment on above: Result Comment: PERF ORMED BY: [place] [address] PATHOLOGIST [employer] MACHINE OPERATOR KAYLIN ARDON M.D. Performed By: #### P TT, HS TROP, CBC, PT, BNP, CMP, CK #### [facility] [address] [place] [address] [facility] Troponin I.cardiac [Mass/vol ume] in Serum or Plasma by Detection limit <= 0.01 ng/Ordered By: Rona Andres on 11-05-2023 Troponin I.cardiac DL <= 0.01 ng/mL [Mass/Vol] 36.1 pg/mL High 0.0-15.0 [facility] Urea nitrogen [Mass/volume] in Serum or PlasmaOrdered By: MEGGAN ORTIZ on 11-05-2023 Urea nitrogen [Mass/Vol] 20 mg/dL Normal 7-25 [facility] Comment on above: Performed By: #### P TT, HS TROP, CBC, PT, BNP, CMP, CK #### [facility] [address] [place], [place] [id number] [facility] XR chest 1V portableon 11-04 XR chest 1V portable [facility] [address] [place], [place] [id number] XRay Report Signed Patient: Genny Brewer MR#: [id number] : 1940 Acct:[id number] Age/Sex: 83 / F ADM Date: 11/05/23 [...] Antonio Martinez M.D.11/05/2023 7:45 AM Dictation Location: [place] [address] Transcribed By: CODY 11/05/23 0745 Dictated By: Juan Antonio Martinez DO 11/05/23 0743 Signed By: 11/05/23 0745 Normal [facility] Automated basophil %Ordered By: Reji Saenz on 10-29-2023 Basophils/100 WBC (Bld) 0.7 % Normal . [facility] Comment on above: Performed By: #### L IPID, CBC, HS TROP, BMP #### [address] Automated basophil countOrde red By: Reji Saenz on 10-29-2023 Basophils (Bld) [#/Vol] 0.1 10*3/uL Normal 0.0-0.2 [facility] Comment on above: Result Comment: PERF ORMED BY: [place] [address] PATHOLOGIST [employer] MACHINE OPERATOR KAYLIN ARDON M.D. Performed By: #### L IPID, CBC, HS TROP, BMP #### [address] Automated blood monocyte cou ntOrdered By: Reji Saenz on 10-29-2023 Monocytes (Bld) [#/Vol] 0.8 10*3/uL Normal 0.0-0.8 [facility] Comment on above: Performed By: #### L IPID, CBC, HS TROP, BMP #### [facility] [address] [place] [address] Automated eosinophil %Ordere d By: Reji Saenz on 10-29-2023 Eosinophils/100 WBC (Bld) 0.6 % Normal . [facility] Comment on above: Performed By: #### L IPID, CBC, HS TROP, BMP #### [facility] [address] [place] [address] Automated eosinophil countOr dered By: Reji Saenz on 10-29-2023 Eosinophils (Bld) [#/Vol] 0.0 10*3/uL Normal 0.0-0.45 [facility] Comment on above: Performed By: #### L IPID, CBC, HS TROP, BMP #### [facility] [address] [place] [address] Automated monocyte %Ordered By: Reji Saenz on 10-29-2023 Monocytes/100 WBC (Bld) 9.4 % Normal . [facility] Comment on above: Performed By: #### L IPID, CBC, HS TROP, BMP #### [address] Automated neutrophil %Ordere d By: Reji Saenz on 10-29-2023 Neutrophils/100 WBC (Bld) 73.5 % Normal . [facility] Comment on above: Performed By: #### L IPID, CBC, HS TROP, BMP #### [address] Basic Metabolic Panelon Creatinine Clr Calc Pharmacy 41.47 Normal [facility] Comment on above: Result Comment: PERF ORMED BY: [place] [address] PATHOLOGIST [employer] MACHINE OPERATOR KAYLIN ARDON M.D. Performed By: #### L IPID, CBC, HS TROP, BMP #### [address] GFR/1.73 sq M.predicted MDRD (S/P/Bld) [Vol rate/Area] mL/min/{1.73_m2} Normal [facility] Comment on above: Performed By: #### L IPID, CBC, HS TROP, BMP #### [address] Calcium [Mass/volume] in Ser um or PlasmaOrdered By: Reji Saenz on 10-29-2023 Calcium [Mass/Vol] 9.3 mg/dL Normal 8.6-10.3 [facility] Comment on above: Performed By: #### L IPID, CBC, HS TROP, BMP #### [address] Carbon dioxide, total [Moles /volume] in Serum or PlasmaOrdered By: Reji Saenz on 08-06-2024 CO2 [Moles/Vol] 24.3 mmol/L Normal 21.0-31.0 [facility] Comment on above: Performed By: #### L IPID, CBC, HS TROP, BMP #### [facility] [address] [place] [address] Chloride [Moles/volume] in S carolyne or PlasmaOrdered By: Reji Saenz on 10-29-2023 Chloride [Moles/Vol] 109 mmol/L High 98-107 [facility] Comment on above: Performed By: #### L IPID, CBC, HS TROP, BMP #### [facility] [address] [place] [address] Complete Blood Count Auto Di ffon 10-29-2023 Mean Corpuscular HGB Conc 33.9 g/dL Normal 32.0-35.0 [facility] Comment on above: Performed By: #### L IPID, CBC, HS TROP, BMP #### [facility] [address] [place] [address] NRBC% 0.1 /100{WBC} Normal 0-0.5 [facility] Comment on above: Performed By: #### L IPID, CBC, HS TROP, BMP #### [facility] [address] [place] [address] Creatinine [Mass/volume] in Serum or PlasmaOrdered By: Reji Saenz on 10-29-2023 Creatinine [Mass/Vol] 0.91 mg/dL Normal 0.60-1.20 [facility] Comment on above: Performed By: #### L IPID, CBC, HS TROP, BMP #### [facility] [address] [place] [address] [place] ECG 12 lead ECGon 10-29-2023 ECG 12 lead ECG [facility] [address] [place] [address] Electrocardiograph Report Signed Patient: Genyn Brewer MR#: [id number] : 1940 Acct:[id number] Age/Sex: 83 / F ADM Date: 10/27/23 Loc: Room: [address] [place] [address] Type: DIS IN Attending Dr: W Celestino Jett DO Ordering Provider: Reji Saenz DO Date of Service: 10/29/2309/15/499 ECG/ECG 12 [...] Marilou Wilhelm DO 4 1855 Normal [facility] Erythrocyte distribution wid th [Ratio] by Automated countOrdered By: Reji Saenz on 10-29-2023 Erythrocyte distribution width (RBC) [Ratio] 13.8 % Normal 11.9-15.3 [facility] Comment on above: Performed By: #### L IPID, CBC, HS TROP, BMP #### [facility] [address] [place] [address] [place] Erythrocytes [#/volume] in B lood by Automated countOrdered By: Reji Saenz on 10-29-2023 RBC (Bld) [#/Vol] 3.96 10*6/uL Normal 3.60-5.00 [facility] Comment on above: Performed By: #### L IPID, CBC, HS TROP, BMP #### [facility] [address] [place] [id number] [place] Glucose [Mass/volume] in Ser um or PlasmaOrdered By: Reji Saenz on 10-29-2023 Glucose [Mass/Vol] 105 mg/dL High 70-100 [facility] Comment on above: ADA recommended refe rence rangeRandom Glucose Reference Range is dependent on time and content of last meal. Glucose of more than 200 mg/dL in a nonstressed, ambulatory subject supports the diagnosis of Diabetes Mellitus. Result Comment: [place] [facility] Glucose Reference Range is dependent on time and content of last meal. Glucose of more than 200 mg/dL in a nonstressed, ambulatory subject supports the diagnosis of Diabetes Mellitus. ADA recommended reference range Performed By: #### L IPID, CBC, HS TROP, BMP #### [facility] [address] Hematocrit [Volume Fraction] of Blood by Automated countOrdered By: Reji Saenz on 10-29-2023 Hematocrit (Bld) [Volume fraction] 38.2 % Normal 34.0-46.4 [facility] Comment on above: Performed By: #### L IPID, CBC, HS TROP, BMP #### [address] Hemoglobin [Mass/volume] in BloodOrdered By: Reji Saenz on 10-29-2023 Hemoglobin (Bld) [Mass/Vol] 12.9 g/dL Normal 11.8-15.4 [facility] Comment on above: Performed By: #### L IPID, CBC, HS TROP, BMP #### [address] Leukocytes [#/volume] correc kristi for nucleated erythrocytes in Blood by Automated counOrdered By: Reji Saenz on 10-29-2023 WBC corrected for nucl RBC Auto (Bld) [#/Vol] 8.1 10*3/uL 3.8-11.6 [facility] Leukocytes [#/volume] in Blo od by Automated countOrdered By: Reji Saenz on 10-29-2023 WBC (Bld) [#/Vol] 8.1 10*3/uL Normal 3.8-11.6 [facility] Comment on above: Performed By: #### L IPID, CBC, HS TROP, BMP #### [facility] [address] [place] [address] [place] Lymphocytes [#/volume] in Bl ood by Automated countOrdered By: Reji Saenz on 10-29-2023 Lymphocytes (Bld) [#/Vol] 1.3 10*3/uL Normal 1.00-4.8 [facility] Comment on above: Performed By: #### L IPID, CBC, HS TROP, BMP #### [facility] [address] [place] [address] Lymphocytes/100 leukocytes i n Blood by Automated countOrdered By: Reji Saenz on 10-29-2023 Lymphocytes/100 WBC (Bld) 15.8 % Normal . [facility] Comment on above: Performed By: #### L IPID, CBC, HS TROP, BMP #### [facility] [address] [place] [address] MCH [Entitic mass] by Automa kristi countOrdered By: Reji Saenz on 10-29-2023 MCH (RBC) [Entitic mass] 32.7 pg Normal 24.7-34.3 [facility] Comment on above: Performed By: #### L IPID, CBC, HS TROP, BMP #### [address] MCHC Auto (RBC) [Mass/Vol]Or dered By: Reji Saenz on 10-29-2023 MCHC (RBC) [Mass/Vol] 33.9 g/dL 32.0-35.0 [facility] MCV [Entitic volume] by Auto mated countOrdered By: Reji Saenz on 10-29-2023 MCV (RBC) [Entitic vol] 96.5 fL Normal 80-100 [facility] Comment on above: Performed By: #### L IPID, CBC, HS TROP, BMP #### [facility] [address] [place] [address] Neutrophils [#/volume] in Bl ood by Automated countOrdered By: Reji Saenz on 10-29-2023 Neutrophils (Bld) [#/Vol] 5.9 10*3/uL Normal 1.8-7.7 [facility] Comment on above: Performed By: #### L IPID, CBC, HS TROP, BMP #### [facility] [address] [place] [address] No Panel InformationOrdered By: Reji Saenz on 10-29-2023 Estimated GFR (CKD-EPI) > 60.0 mL/Min [facility] Creatinine Clearance (Chem 41.47 [facility] Nucleated erythrocytes [Pres ence] in Blood by Automated countOrdered By: Reji Saenz on 10-29-2023 Nucleated RBC Auto Ql (Bld) 0.1 /100{WBC} 0-0.5 [facility] Platelet mean volume [Entiti c volume] in Blood by Automated countOrdered By: Reji Saenz on 10-29-2023 Platelet mean volume (Bld) [Entitic vol] 8.0 fL Normal 6.3-10.7 [facility] Comment on above: Performed By: #### L IPID, CBC, HS TROP, BMP #### [facility] [address] [place] [address] Platelets [#/volume] in Bloo d by Automated countOrdered By: Reji Saenz on 10-29-2023 Platelets (Bld) [#/Vol] 261 10*3/uL Normal 150-450 [facility] Comment on above: Performed By: #### L IPID, CBC, HS TROP, BMP #### [facility] [address] [place] [address] [place] Potassium [Moles/volume] in Serum or PlasmaOrdered By: Reji Saenz on 10-29-2023 Potassium [Moles/Vol] 4.0 mmol/L Normal 3.5-5.1 [facility] Comment on above: Performed By: #### L IPID, CBC, HS TROP, BMP #### [facility] [address] [place] [address] Serum or plasma anion gap de terminationOrdered By: Reji Saenz on 10-29-2023 Anion gap [Moles/Vol] 8.7 mmol/L Normal 6.0-15.0 [facility] Comment on above: Performed By: #### L IPID, CBC, HS TROP, BMP #### [facility] [address] [place] [address] [place] Sodium [Moles/volume] in Ser um or PlasmaOrdered By: Reji Saenz on 10-29-2023 Sodium [Moles/Vol] 138 mmol/L Normal 136-145 [facility] Comment on above: Performed By: #### L IPID, CBC, HS TROP, BMP #### [address] Urea nitrogen [Mass/volume] in Serum or PlasmaOrdered By: Reji Saenz on 10-29-2023 Urea nitrogen [Mass/Vol] 17 mg/dL Normal 7-25 [facility] Comment on above: Performed By: #### L IPID, CBC, HS TROP, BMP #### [address] Basic Metabolic Panelon 08 Anion gap [Moles/Vol] 6.3 mmol/L Normal 6.0-15.0 [facility] Comment on above: Performed By: #### L IPID, CBC, HS TROP, BMP #### [address] Calcium [Mass/Vol] 9.3 mg/dL Normal 8.6-10.3 [facility] Comment on above: Performed By: #### L IPID, CBC, HS TROP, BMP #### [address] Chloride [Moles/Vol] 112 mmol/L High 98-107 [facility] Comment on above: Performed By: #### L IPID, CBC, HS TROP, BMP #### [address] CO2 [Moles/Vol] 20.7 mmol/L Low 21.0-31.0 [facility] Comment on above: Performed By: #### L IPID, CBC, HS TROP, BMP #### [address] Creatinine [Mass/Vol] 0.85 mg/dL Normal 0.60-1.20 [facility] Comment on above: Performed By: #### L IPID, CBC, HS TROP, BMP #### [address] Creatinine Clr Calc Pharmacy 44.36 Normal [facility] Comment on above: Performed By: #### L IPID, CBC, HS TROP, BMP #### [place] [address] [place] GFR/1.73 sq M.predicted MDRD (S/P/Bld) [Vol rate/Area] mL/min/{1.73_m2} Normal [facility] Comment on above: Performed By: #### L IPID, CBC, HS TROP, BMP #### [facility] [address] [place] [address] [place] Glucose [Mass/Vol] 104 mg/dL High 70-100 [facility] Comment on above: Result Comment: [facility] Glucose Reference Range is dependent on time and content of last meal. Glucose of more than 200 mg/dL in a nonstressed, ambulatory subject supports the diagnosis of Diabetes Mellitus. ADA recommended reference range Performed By: #### L IPID, CBC, HS TROP, BMP #### [facility] [address] [place] [id number] [place] Potassium [Moles/Vol] 4.0 mmol/L Normal 3.5-5.1 [facility] Comment on above: Performed By: #### L IPID, CBC, HS TROP, BMP #### [facility] [address] [place] [address] [place] Sodium [Moles/Vol] 135 mmol/L Low 136-145 [facility] Comment on above: Performed By: #### L IPID, CBC, HS TROP, BMP #### [facility] [address] [place] [id number] [place] Urea nitrogen [Mass/Vol] 17 mg/dL Normal 7-25 [facility] Comment on above: Performed By: #### L IPID, CBC, HS TROP, BMP #### [facility] [address] [place] [id number] [place] Cholesterol [Mass/volume] in Serum or PlasmaOrdered By: Reji Saenz on 10-28-2023 Cholesterol [Mass/Vol] 241 mg/dL High 140-200 [facility] Comment on above: Chol less than 200 m g/dl low riskChol 201-239 mg/dl borderline riskChol 240 mg/dl and greater high risk Result Comment: Chol less than 200 mg/dl low risk Chol 201-239 mg/dl borderline risk Chol 240 mg/dl and greater high risk Performed By: #### L IPID, CBC, HS TROP, BMP #### [facility] [address] Cholesterol in LDL Calc [Mas s/Vol]Ordered By: Reji Saenz on 10-28-2023 Cholesterol in LDL [Mass/Vol] 108 mg/dL High 0-100 [facility] Comment on above: LDL ATP III CLASSIFI CATIONLDL less than 100 mg/dL OptimalLDL 100-129 mg/dL Near or above optimalLDL 130-159 mg/dL Borderline highLDL 160-189 mg/dL HighLDL greater than 189 mg/dL Very high Cholesterol in VLDL Calc [Ma ss/Vol]Ordered By: Reji Saenz on 10-28-2023 Cholesterol in VLDL [Mass/Vol] 20 mg/dL [facility] Complete Blood Count Auto Di ffon 10-28-2023 Basophils (Bld) [#/Vol] 0.1 10*3/uL Normal 0.0-0.2 [facility] Comment on above: Result Comment: PERF ORMED BY: [place] [address] PATHOLOGIST [employer] MACHINE OPERATOR KAYLIN ARDON M.D. Performed By: #### L IPID, CBC, HS TROP, BMP #### [place] [address] [place] Basophils/100 WBC (Bld) 0.9 % Normal . [facility] Comment on above: Performed By: #### L IPID, CBC, HS TROP, BMP #### [place] [address] [place] Eosinophils (Bld) [#/Vol] 0.0 10*3/uL Normal 0.0-0.45 [facility] Comment on above: Performed By: #### L IPID, CBC, HS TROP, BMP #### [place] [address] [place] Eosinophils/100 WBC (Bld) 0.5 % Normal . [facility] Comment on above: Performed By: #### L IPID, CBC, HS TROP, BMP #### [place] [address] [place] Erythrocyte distribution width (RBC) [Ratio] 13.7 % Normal 11.9-15.3 [facility] Comment on above: Performed By: #### L IPID, CBC, HS TROP, BMP #### [address] Hematocrit (Bld) [Volume fraction] 37.9 % Normal 34.0-46.4 [facility] Comment on above: Performed By: #### L IPID, CBC, HS TROP, BMP #### [address] Hemoglobin (Bld) [Mass/Vol] 12.7 g/dL Normal 11.8-15.4 [facility] Comment on above: Performed By: #### L IPID, CBC, HS TROP, BMP #### [address] Lymphocytes (Bld) [#/Vol] 1.7 10*3/uL Normal 1.00-4.8 [facility] Comment on above: Performed By: #### L IPID, CBC, HS TROP, BMP #### [address] Lymphocytes/100 WBC (Bld) 20.4 % Normal . [facility] Comment on above: Performed By: #### L IPID, CBC, HS TROP, BMP #### [address] MCH (RBC) [Entitic mass] 32.6 pg Normal 24.7-34.3 [facility] Comment on above: Performed By: #### L IPID, CBC, HS TROP, BMP #### [address] MCV (RBC) [Entitic vol] 97.0 fL Normal 80-100 [facility] Comment on above: Performed By: #### L IPID, CBC, HS TROP, BMP #### [address] Mean Corpuscular HGB Conc 33.5 g/dL Normal 32.0-35.0 [facility] Comment on above: Performed By: #### L IPID, CBC, HS TROP, BMP #### [address] Monocytes (Bld) [#/Vol] 0.9 10*3/uL High 0.0-0.8 [facility] Comment on above: Performed By: #### L IPID, CBC, HS TROP, BMP #### [address] Monocytes/100 WBC (Bld) 10.2 % Normal . [facility] Comment on above: Performed By: #### L IPID, CBC, HS TROP, BMP #### [address] Neutrophils (Bld) [#/Vol] 5.7 10*3/uL Normal 1.8-7.7 [facility] Comment on above: Performed By: #### L IPID, CBC, HS TROP, BMP #### [address] Neutrophils/100 WBC (Bld) 68.0 % Normal . [facility] Comment on above: Performed By: #### L IPID, CBC, HS TROP, BMP #### [address] NRBC% 0.1 /100{WBC} Normal 0-0.5 [facility] Comment on above: Performed By: #### L IPID, CBC, HS TROP, BMP #### [address] Platelet mean volume (Bld) [Entitic vol] 7.7 fL Normal 6.3-10.7 [facility] Comment on above: Performed By: #### L IPID, CBC, HS TROP, BMP #### [address] Platelets (Bld) [#/Vol] 254 10*3/uL Normal 150-450 [facility] Comment on above: Performed By: #### L IPID, CBC, HS TROP, BMP #### [address] [place] [address] [facility] RBC (Bld) [#/Vol] 3.90 10*6/uL Normal 3.60-5.00 [facility] Comment on above: Performed By: #### L IPID, CBC, HS TROP, BMP #### [facility] [address] [place] [address] [facility] WBC (Bld) [#/Vol] 8.4 10*3/uL Normal 3.8-11.6 [facility] Comment on above: Performed By: #### L IPID, CBC, HS TROP, BMP #### [facility] [address] [place] [id number] [facility] ECG 12 lead ECGon 10-28-2023 ECG 12 lead ECG [facility] [place] [place] [address] Electrocardiograph Report Signed Patient: Genny Brewer MR#: [id number] : 1940 Acct:[id number] Age/Sex: 83 / F ADM Date: 10/27/23 Loc: Room: [address] [place] [address] Type: DIS IN Attending Dr: Reji Saenz DO Ordering Provider: Reji Saenz DO Date of Service: 10/28/2308/15/499 ECG/ECG 12 [...] Marilou Wilhelm DO 4 1836 Normal [facility] ECG 12 lead ECG [facility] [place] [address] Electrocardiograph Report Signed Patient: Genny Brewer MR#: [id number] : 1940 Acct:[id number] Age/Sex: 83 / F ADM Date: 10/27/23 Loc: 4C Room: [address] [place] [address] Type: DIS IN Attending Dr: Reji Saenz DO Ordering Provider: Reji Saenz DO Date of Service: 10/28/2308/15/518 ECG/ECG 12 [...] are now present Confirmed by Lorenzo Mora ([id number]) on 11/07/2023 10:40:27 AM Referred By: Electronically Signed By: Lorenzo Mora Transcribed By: MUS Signed By Lorenzo Mora MD 11/07/23 1040 Normal [facility] ECH echo transthoracicon ECH echo transthoracic [facility] [place] [address] [place] [address] Echocardiogram Signed Patient: Genny Brewer MR#: [id number] : 1940 Acct:[id number] Age/Sex: 83 / F ADM Date: 10/27/23 Loc: Room: [address] [place] [address] Type: ADM IN Attending Dr: Reji Saenz DO Ordering Provider: Reji Saenz DO Date of Service: 10/28/2308/15/499 ECH/ECH echo transthoracic: Acute inferior STEMI Copies to: DO Reji Sandoval DO E 10:40 AM Patient Location: : 1940 Gender: Female (MM/DD/YYYY) Age: 83 Years Ordering Physician: Reji Saenz Height: 60.63 in Weight: 151.003 lb Performed [...] By: Marilou Wilhelm, 10/28/23 1843 Normal [facility] Lipid Panelon 10-28-2023 LDL Cholesterol,Calculated 108 mg/dL High 0-100 [facility] Comment on above: Result Comment: LDL ATP III CLASSIFICATION LDL less than 100 mg/dL Optimal LDL 100-129 mg/dL Near or above optimal LDL 130-159 mg/dL Borderline high LDL 160-189 mg/dL High LDL greater than 189 mg/dL Very high Performed By: #### L IPID, CBC, HS TROP, BMP #### [facility] [address] Triglyceride w/Reflex 103 mg/dL Normal 0-149 [facility] Comment on above: Result Comment: TRIG ATP III CLASSIFICATION TRIG less than 150 mg/dL Normal TRIG 150-199 mg/dL Borderline high TRIG 200-500 mg/dL High TRIG greater than 500 mg/dL Very high Standard traceable to the Center for Disease Conrtrol and Prevention (CDC) test method. Performed By: #### L IPID, CBC, HS TROP, BMP #### [facility] [address] VLDL CHOLESTEROL 20 mg/dL Normal [facility] Comment on above: Performed By: #### L IPID, CBC, HS TROP, BMP #### [facility] [address] Serum or plasma high density lipoprotein (HDL) cholesterol measurementOrdered By: Reji Saenz on 10-28-2023 Cholesterol in HDL [Mass/Vol] 112 mg/dL High - [facility] Comment on above: HDL CHOL ATP-III CLA SSIFICATION Cardiovascular RiskHDL > or equal to 60 mg/dL LOWHDL < 40 mg/dL HIGH Result Comment: HDL CHOL ATP-III CLASSIFICATION Cardiovascular Risk HDL > or equal to 60 mg/dL LOW HDL < 40 mg/dL HIGH Performed By: #### L IPID, CBC, HS TROP, BMP #### [facility] [address] Serum or plasma total choles terol/high density lipoprotein (HDL) cholesterol mass ratOrdered By: Reji Saenz on 10-28-2023 Cholesterol.total/Chol esterol in HDL [Mass ratio] 2.2 {ratio} Normal <5.0 [facility] Comment on above: Result Comment: PERF ORMED BY: [place] [address] PATHOLOGIST [employer] MACHINE OPERATOR KAYLIN ARDON M.D. Performed By: #### L IPID, CBC, HS TROP, BMP #### [address] Triglyceride [Mass/volume] i n Serum or PlasmaOrdered By: Reji Saenz on 10-28-2023 Triglyceride [Mass/Vol] 103 mg/dL 0-149 [facility] Comment on above: TRIG ATP III CLASSIF ICATIONTRIG less than 150 mg/dL NormalTRIG 150-199 mg/dL Borderline highTRIG 200-500 mg/dL High TRIG greater than 500 mg/dL Very highStandard traceable to the Center for Disease Conrtrol and Prevention (CDC) test method. Troponin I High Sensitivityo n 10-28-2023 Troponin I High Sensitivity 76901.4 pg/mL Off scale high 0.0-15.0 [facility] Comment on above: Result Comment: Crit ical Result : Called to and read back by: ELLA SCOTT at: 10/28/2023 05:06:20 by:[id number] PERFORMED BY: [place] [phone] PATHOLOGIST [employer] MACHINE OPERATOR KAYLIN ARDON M.D. Performed By: #### L IPID, CBC, HS TROP, BMP #### [address] Troponin I High Sensitivity 51190.0 pg/mL Off scale high 0.0-15.0 [facility] Comment on above: Result Comment: Crit ical Result : Called to and read back by: ELLA SCOTT at: 10/28/2023 02:47:34 by:[id number] PERFORMED BY: [place] [address] PATHOLOGIST [employer] MACHINE OPERATOR KAYLIN ARDON M.D. Performed By: #### H S TROP #### [address] Troponin I.cardiac [Mass/vol ume] in Serum or Plasma by Detection limit <= 0.01 ng/Ordered By: Reji Saenz on 10-28-2023 Troponin I.cardiac DL <= 0.01 ng/mL [Mass/Vol] 44735.4 pg/mL High 0.0-15.0 [facility] Comment on above: Critical Result : Ca lled to and read back by: ELLA SCOTT at: 10/28/2023 05:06:20 by:[id number] Activated partial thrombopla stin time (aPTT) in platelet poor plasma by coagulation aOrdered By: Doe Álvarez on 10-27-2023 aPTT Coag (PPP) [Time] 23.1 s Low 25.1-36.5 [facility] Comment on above: A hematocrit value g reater than 55% may lead to inaccurate results in coagulation testing. Patients having hematocrit values >55% require a special collection tube for coagulation studies. Please contact the laboratory at [phone] for redraw instructions. Alanine aminotransferase [En zymatic activity/volume] in Serum or PlasmaOrdered By: Doe Álvarez on 10-27-2023 ALT [Catalytic activity/Vol] 36 U/L Normal 7-52 [facility] Comment on above: Performed By: #### L IPID, CBC, HS TROP, BMP #### [facility] [address] [place] [address] [place] Albumin [Mass/volume] in Ser um or Plasma by Bromocresol green (BCG) dye binding methoOrdered By: Doe Álvarez on 10-27-2023 Albumin BCG dye [Mass/Vol] 4.4 g/dL 3.5-5.7 [facility] Alkaline phosphatase [Enzyma tic activity/volume] in Serum or PlasmaOrdered By: Doe Álvarez on 10-27-2023 ALP [Catalytic activity/Vol] 86 U/L Normal 34-104 [facility] Comment on above: Performed By: #### L IPID, CBC, HS TROP, BMP #### [facility] [address] [place] [address] [place] Aspartate aminotransferase [ Enzymatic activity/volume] in Serum or PlasmaOrdered By: Doe Álvarez on 10-27-2023 AST [Catalytic activity/Vol] 60 U/L High 13-39 [facility] Comment on above: Performed By: #### L IPID, CBC, HS TROP, BMP #### [address] Automated basophil %Ordered By: Doe Álvarez on 10-27-2023 Basophils/100 WBC (Bld) 1.3 % Normal . [facility] Comment on above: Performed By: #### L IPID, CBC, HS TROP, BMP #### [address] Automated basophil countOrde red By: Doe Álvarez on 10-27-2023 Basophils (Bld) [#/Vol] 0.1 10*3/uL Normal 0.0-0.2 [facility] Comment on above: Result Comment: PERF ORMED BY: [place] [address] PATHOLOGIST [employer] MACHINE OPERATOR KAYLIN ARDON M.D. Performed By: #### L IPID, CBC, HS TROP, BMP #### [address] Automated blood monocyte cou ntOrdered By: Doe Álvarez on 10-27-2023 Monocytes (Bld) [#/Vol] 0.7 10*3/uL Normal 0.0-0.8 [facility] Comment on above: Performed By: #### L IPID, CBC, HS TROP, BMP #### [address] Automated eosinophil %Ordere d By: Doe Álvarez on 10-27-2023 Eosinophils/100 WBC (Bld) 0.7 % Normal . [facility] Comment on above: Performed By: #### L IPID, CBC, HS TROP, BMP #### [address] Automated eosinophil countOr dered By: Doe Álvarez on 10-27-2023 Eosinophils (Bld) [#/Vol] 0.1 10*3/uL Normal 0.0-0.45 [facility] Comment on above: Performed By: #### L IPID, CBC, HS TROP, BMP #### [address] [place] [address] [place] Automated monocyte %Ordered By: Doe Álvarez on 10-27-2023 Monocytes/100 WBC (Bld) 8.7 % Normal . [facility] Comment on above: Performed By: #### L IPID, CBC, HS TROP, BMP #### [address] Automated neutrophil %Ordere d By: Doe Álvarez on 10-27-2023 Neutrophils/100 WBC (Bld) 63.6 % Normal . [facility] Comment on above: Performed By: #### L IPID, CBC, HS TROP, BMP #### [address] BNP ser/plasOrdered By: Nasreen Álvarez on 10-27-2023 Natriuretic peptide B (Bld) [Mass/Vol] 124.0 pg/mL High 5-100 [facility] Comment on above: Result Comment: PERF ORMED BY: [place] [address] PATHOLOGIST [employer] MACHINE OPERATOR KAYLIN ARDON M.D. Performed By: #### L IPID, CBC, HS TROP, BMP #### [address] Bilirubin.total [Mass/volume ] in Serum or PlasmaOrdered By: Doe Álvarez on 10-27-2023 Bilirubin [Mass/Vol] 0.7 mg/dL Normal 0.3-1.0 [facility] Comment on above: Performed By: #### L IPID, CBC, HS TROP, BMP #### [address] Calcium [Mass/volume] in Ser um or PlasmaOrdered By: Doe Álavrez on 10-27-2023 Calcium [Mass/Vol] 10.0 mg/dL Normal 8.6-10.3 [facility] Comment on above: Performed By: #### L IPID, CBC, HS TROP, BMP #### [address] Carbon dioxide, total [Moles /volume] in Serum or PlasmaOrdered By: Doe Álvarez on 10-27-2023 CO2 [Moles/Vol] 21.0 mmol/L Normal 21.0-31.0 [facility] Comment on above: Performed By: #### L IPID, CBC, HS TROP, BMP #### [address] Chloride [Moles/volume] in S carolyne or PlasmaOrdered By: Doe Álvarez on 10-27-2023 Chloride [Moles/Vol] 107 mmol/L Normal 98-107 [facility] Comment on above: Performed By: #### L IPID, CBC, HS TROP, BMP #### [address] Complete Blood Count Auto Di ffon 10-27-2023 Mean Corpuscular HGB Conc 34.1 g/dL Normal 32.0-35.0 [facility] Comment on above: Performed By: #### L IPID, CBC, HS TROP, BMP #### [address] Monocytes/100 WBC (Bld) 20.20 % High 0.00-20.00 [facility] Comment on above: Result Comment: For adults in ED, MDW > 20.0 may be associated with a higher risk of sepsis during the first 12 hrs of hospital admission Performed By: #### L IPID, CBC, HS TROP, BMP #### [address] NRBC% 0.1 /100{WBC} Normal 0-0.5 [facility] Comment on above: Performed By: #### L IPID, CBC, HS TROP, BMP #### [address] Comprehensive Metabolic Pane david 10-27-2023 Albumin [Mass/Vol] 4.4 g/dL Normal 3.5-5.7 [facility] Comment on above: Performed By: #### L IPID, CBC, HS TROP, BMP #### [address] Creatinine Clr Calc Pharmacy 35.04 Normal [facility] Comment on above: Result Comment: PERF ORMED BY: [place] [address] PATHOLOGIST [employer] MACHINE OPERATOR KAYLIN ARDON M.D. Performed By: #### L IPID, CBC, HS TROP, BMP #### [facility] [address] [place] [address] [place] GFR/1.73 sq M.predicted MDRD (S/P/Bld) [Vol rate/Area] 52.124 mL/min/{1.73_m2} Normal [facility] Comment on above: Performed By: #### L IPID, CBC, HS TROP, BMP #### [facility] [address] [place] [address] [place] Creatine kinase [Enzymatic a ctivity/volume] in Serum or PlasmaOrdered By: Doe Álvarez on 10-27-2023 CK [Catalytic activity/Vol] 74 U/L Normal 30-223 [facility] Comment on above: Performed By: #### L IPID, CBC, HS TROP, BMP #### [facility] [address] [place], [place] [id number] [place] Creatinine [Mass/volume] in Serum or PlasmaOrdered By: Doe Álvarez on 10-27-2023 Creatinine [Mass/Vol] 1.06 mg/dL Normal 0.60-1.20 [facility] Comment on above: Performed By: #### L IPID, CBC, HS TROP, BMP #### [facility] [address] [place], [place] [id number] [place] ECG 12 lead ECGon 10-27-2023 ECG 12 lead ECG [facility] [place] [address] [place] [address] Electrocardiograph Report Signed Patient: Genny Brewer MR#: [id number] : 1940 Acct:[id number] Age/Sex: 83 / F ADM Date: 10/27/23 Loc: Room: [address] [place] [address] Type: DIS IN Attending Dr: Reji Saenz DO Ordering Provider: Reji Saenz DO Date of Service: 10/27/2307/17/1831 ECG/ECG 12 [...] By: MUS Signed By Marilou Wilhelm DO 1832 Normal [facility] ECG 12 lead ECG [facility] [place] [address] [place] [address] Electrocardiograph Report Signed Patient: Genny Brewer MR#: [id number] : 1940 Acct:[id number] Age/Sex: 83 / F ADM Date: 10/27/23 Loc: Room: [address] [place] [address] Type: ADM IN Attending Dr: Reji Saenz DO Ordering Provider: Doe Álvarez PA-C Date [...] consider inferolateral injury or acute infarct ACUTE CT / STEMI Consider right ventricular involvement in acute inferior infarct Abnormal ECG No previous ECGs available Confirmed by ANAYELI DAVE MD ([id number]) on 10/27/2023 7:16:42 PM Referred By: Electronically Signed By: ANAYELI DAVE MD Transcribed By: MUS Signed By Anayeli Dave MD 10/27/231915 Normal [facility] Erythrocyte distribution wid th [Ratio] by Automated countOrdered By: Doe Álvarez on 10-27-2023 Erythrocyte distribution width (RBC) [Ratio] 14.0 % Normal 11.9-15.3 [facility] Comment on above: Performed By: #### L IPID, CBC, HS TROP, BMP #### [facility] [address] [place] [address] [place] Erythrocytes [#/volume] in B lood by Automated countOrdered By: Doe Álvarez on 10-27-2023 RBC (Bld) [#/Vol] 4.45 10*6/uL Normal 3.60-5.00 [facility] Comment on above: Performed By: #### L IPID, CBC, HS TROP, BMP #### [facility] [address] [place] [address] [place] Glucose [Mass/volume] in Ser um or PlasmaOrdered By: Doe Álvarez on 10-27-2023 Glucose [Mass/Vol] 166 mg/dL High 70-100 [facility] Comment on above: ADA recommended refe rence rangeRandom Glucose Reference Range is dependent on time and content of last meal. Glucose of more than 200 mg/dL in a nonstressed, ambulatory subject supports the diagnosis of Diabetes Mellitus. Result Comment: [place] om Glucose Reference Range is dependent on time and content of last meal. Glucose of more than 200 mg/dL in a nonstressed, ambulatory subject supports the diagnosis of Diabetes Mellitus. ADA recommended reference range Performed By: #### L IPID, CBC, HS TROP, BMP #### [facility] [address] Hematocrit [Volume Fraction] of Blood by Automated countOrdered By: Doe Álvarez on 10-27-2023 Hematocrit (Bld) [Volume fraction] 42.6 % Normal 34.0-46.4 [facility] Comment on above: Performed By: #### L IPID, CBC, HS TROP, BMP #### [facility] [address] [place] [address] [place] Hemoglobin [Mass/volume] in BloodOrdered By: Doe Álvarez on 10-27-2023 Hemoglobin (Bld) [Mass/Vol] 14.5 g/dL Normal 11.8-15.4 [facility] Comment on above: Performed By: #### L IPID, CBC, HS TROP, BMP #### [facility] [address] INR in Platelet poor plasma by Coagulation assayOrdered By: Doe Álvarez on 10-27-2023 INR Coag (PPP) [Relative time] 0.9 {INR} Normal [facility] Comment on above: INR Therapeutic Rang e [...] L IPID, CBC, HS TROP, BMP #### [facility] [address] Leukocytes [#/volume] correc kristi for nucleated erythrocytes in Blood by Automated counOrdered By: Doe Álvarez on 10-27-2023 WBC corrected for nucl RBC Auto (Bld) [#/Vol] 8.6 10*3/uL 3.8-11.6 [facility] Leukocytes [#/volume] in Blo od by Automated countOrdered By: Doe Álvarez on 10-27-2023 WBC (Bld) [#/Vol] 8.6 10*3/uL Normal 3.8-11.6 [facility] Comment on above: Performed By: #### L IPID, CBC, HS TROP, BMP #### [facility] [address] [place] [address] [place] Lymphocytes [#/volume] in Bl ood by Automated countOrdered By: Doe Álvarez on 10-27-2023 Lymphocytes (Bld) [#/Vol] 2.2 10*3/uL Normal 1.00-4.8 [facility] Comment on above: Performed By: #### L IPID, CBC, HS TROP, BMP #### [facility] [address] Lymphocytes/100 leukocytes i n Blood by Automated countOrdered By: Doe Álvarez on 10-27-2023 Lymphocytes/100 WBC (Bld) 25.7 % Normal . [facility] Comment on above: Performed By: #### L IPID, CBC, HS TROP, BMP #### [address] MCH [Entitic mass] by Automa kristi countOrdered By: Doe Álvarez on 10-27-2023 MCH (RBC) [Entitic mass] 32.6 pg Normal 24.7-34.3 [facility] Comment on above: Performed By: #### L IPID, CBC, HS TROP, BMP #### [address] MCHC Auto (RBC) [Mass/Vol]Or dered By: Doe Álvarez on 10-27-2023 MCHC (RBC) [Mass/Vol] 34.1 g/dL 32.0-35.0 [facility] MCV [Entitic volume] by Auto mated countOrdered By: Doe Álvarez on 10-27-2023 MCV (RBC) [Entitic vol] 95.7 fL Normal 80-100 [facility] Comment on above: Performed By: #### L IPID, CBC, HS TROP, BMP #### [facility] [address] [place] [address] Monocyte distribution width [Entitic volume] in Blood by AutomatedOrdered By: Doe Álvarez on 10-27-2023 Monocyte distribution width Auto (Bld) [Entitic vol] 20.20 % High 0.00-20.00 [facility] Comment on above: For adults in ED, MD W > 20.0 may be associated with a higher risk of sepsis during the first 12 hrs of hospital admission Neutrophils [#/volume] in Bl ood by Automated countOrdered By: Doe Álvarez on 10-27-2023 Neutrophils (Bld) [#/Vol] 5.5 10*3/uL Normal 1.8-7.7 [facility] Comment on above: Performed By: #### L IPID, CBC, HS TROP, BMP #### [facility] [address] [place] [address] No Panel InformationOrdered By: Doe Álvarez on 10-27-2023 Estimated GFR (CKD-EPI) 52.124 mL/Min [facility] Creatinine Clearance (Chem 35.04 [facility] Nucleated erythrocytes [Pres ence] in Blood by Automated countOrdered By: Doe Álvarez on 10-27-2023 Nucleated RBC Auto Ql (Bld) 0.1 /100{WBC} 0-0.5 [facility] Partial Thromboplastin Timeo n 10-27-2023 aPTT Coag (Bld) [Time] 23.1 s Low 25.1-36.5 [facility] Comment on above: Result Comment: A he matocrit value greater than 55% may lead to inaccurate results in coagulation testing. Patients having hematocrit values >55% require a special collection tube for coagulation studies. Please contact the laboratory at [phone] for redraw instructions. PERFORMED BY: [place] [address] PATHOLOGIST [employer] MACHINE OPERATOR KAYLIN ARDON M.D. Performed By: #### L IPID, CBC, HS TROP, BMP #### [facility] [address] [place] [address] Platelet mean volume [Entiti c volume] in Blood by Automated countOrdered By: Doe Álvarez on 10-27-2023 Platelet mean volume (Bld) [Entitic vol] 7.7 fL Normal 6.3-10.7 [facility] Comment on above: Performed By: #### L IPID, CBC, HS TROP, BMP #### [facility] [address] [place] [address] [place] Platelets [#/volume] in Bloo d by Automated countOrdered By: Doe Álvarez on 10-27-2023 Platelets (Bld) [#/Vol] 294 10*3/uL Normal 150-450 [facility] Comment on above: Performed By: #### L IPID, CBC, HS TROP, BMP #### [facility] [address] Potassium [Moles/volume] in Serum or PlasmaOrdered By: Doe Álvarez on 10-27-2023 Potassium [Moles/Vol] 3.7 mmol/L Normal 3.5-5.1 [facility] Comment on above: Performed By: #### L IPID, CBC, HS TROP, BMP #### [facility] [address] Protein [Mass/volume] in Ser um or PlasmaOrdered By: Doe Álvarez on 10-27-2023 Protein [Mass/Vol] 7.1 g/dL Normal 6.4-8.9 [facility] Comment on above: Performed By: #### L IPID, CBC, HS TROP, BMP #### [address] Prothrombin time (PT)Ordered By: Doe Álvarez on 10-27-2023 PT Coag (PPP) [Time] 10.7 s Normal 9.0-12.9 [facility] Comment on above: A hematocrit value g reater than 55% may lead to inaccurate results in coagulation testing. Patients having hematocrit values >55% require a special collection tube for coagulation studies. Please contact the laboratory at [phone] for redraw instructions. Result Comment: A he matocrit value greater than 55% may lead to inaccurate results in coagulation testing. Patients having hematocrit values >55% require a special collection tube for coagulation studies. Please contact the laboratory at [phone] for redraw instructions. Performed By: #### L IPID, CBC, HS TROP, BMP #### [facility] [address] Serum globulin measurement b y calculation (mass/volume)Ordered By: Doe Álvarez on 10-27-2023 Globulin (S) [Mass/Vol] 2.7 g/dL Normal [facility] Comment on above: Performed By: #### L IPID, CBC, HS TROP, BMP #### [address] Serum or plasma albumin/glob ulin mass ratioOrdered By: Doe Álvarez on 10-27-2023 Albumin/Globulin [Mass ratio] 1.6 {ratio} Normal [facility] Comment on above: Performed By: #### L IPID, CBC, HS TROP, BMP #### [facility] [address] [place] [address] Serum or plasma anion gap de terminationOrdered By: Doe Álvarez on 10-27-2023 Anion gap [Moles/Vol] 13.7 mmol/L Normal 6.0-15.0 [facility] Comment on above: Performed By: #### L IPID, CBC, HS TROP, BMP #### [facility] [address] [place] [address] [place] Sodium [Moles/volume] in Ser um or PlasmaOrdered By: Doe Álvarez on 10-27-2023 Sodium [Moles/Vol] 138 mmol/L Normal 136-145 [facility] Comment on above: Performed By: #### L IPID, CBC, HS TROP, BMP #### [facility] [address] [place] [address] Troponin I High Sensitivityo n 10-27-2023 Troponin I High Sensitivity 59242.9 pg/mL Off scale high 0.0-15.0 [facility] Comment on above: Order Comment: pleas e collect at 2350 Result Comment: Crit ical Result : Called to and read back by: DELIA LOZANO at: 10/28/2023 00:06:21 by:[id number] PERFORMED BY: [place] [address] PATHOLOGIST [employer] MACHINE OPERATOR KAYLIN ARDON M.D. Performed By: #### L IPID, CBC, HS TROP, BMP #### [facility] [address] [place] [address] Troponin I High Sensitivity 59399.3 pg/mL Off scale high 0.0-15.0 [facility] Comment on above: Order Comment: pleas e collect at 2150 Result Comment: Crit ical Result : Called to and read back by: ELLA SCOTT at: 10/27/2023 23:27:11 by:[id number] PERFORMED BY: [place] [address] PATHOLOGIST [employer] MACHINE OPERATOR KAYLIN ARDON M.D. Performed By: #### L IPID, CBC, HS TROP, BMP #### [address] Troponin I High Sensitivity 6295.7 pg/mL Off scale high 0.0-15.0 [facility] Comment on above: Result Comment: Crit ical Result : Called to and read back by: MONET CONNORS at: 10/27/2023 21:58:31 by:[id number] PERFORMED BY: [place] [address] PATHOLOGIST [employer] MACHINE OPERATOR KAYLIN ARDON M.D. Performed By: #### L IPID, CBC, HS TROP, BMP #### [address] Troponin I High Sensitivity 10.2 pg/mL Normal 0.0-15.0 [facility] Comment on above: Result Comment: PERF ORMED BY: [place] [address] PATHOLOGIST [employer] MACHINE OPERATOR KAYLIN ARDON M.D. Performed By: #### L IPID, CBC, HS TROP, BMP #### [address] Troponin I.cardiac [Mass/vol ume] in Serum or Plasma by Detection limit <= 0.01 ng/Ordered By: Doe Álvarez on 10-27-2023 Troponin I.cardiac DL <= 0.01 ng/mL [Mass/Vol] 10.2 pg/mL 0.0-15.0 [facility] Urea nitrogen [Mass/volume] in Serum or PlasmaOrdered By: Doe Álvarez on 10-27-2023 Urea nitrogen [Mass/Vol] 17 mg/dL Normal 7-25 [facility] Comment on above: Performed By: #### L IPID, CBC, HS TROP, BMP #### [address] XR chest 1V portableon 10-26 XR chest 1V portable [facility] [address] [place] [address] XRay Report Signed Patient: Genny Brewer MR#: [id number] : 1940 Acct:[id number] Age/Sex: 83 / F ADM Date: 10/27/23 Loc: Room: Type: [facility] Attending Dr: Reji Saenz DO Copies to: FLAKITA Tavarez DO Ordering [...] Antonio Martinez M.D.10/27/2023 5:41 PM Dictation Location: [place] [address] Transcribed By: [facility] 10/27/23 174 Dictated By: Juan Antonio Martinez DO 10/27/23 1739 Signed By: 10/27/23 174 Normal [facility] David 07-25-2023 L Specimen: [id number] Received: 07/25/23 Status: WILLIAM Whitmore Num: [id number] Spec Type: Surgical Subm Dr: Sylvester Monk MD Tissues: A Colon Biopsy (RANDOM COLON BX) Procedures: HE/2, Gross/Micro L4 Age/ Patient Sex Location Account Attending Physician Genny Brewer 82/F [id number] Sylvester Monk MD SPEC NUM: [id number] RECD: 07/25/23 STATUS: WILLIAM WHITMORE NUM: [id number] YAMILKA: 07/25/23- SUBM DR: Sylvester Monk MD ENTERED: 07/25/[address] [facility] DR: SPEC TYPE: Surgical DEPT: S [...] history, change in bowel habits. CPT Codes 37927 Specimen: [id number] Received: 07/25/23 Status: WILLIAM [place] Num: [id number] Spec Type: Surgical Subm Dr: Sylvester Monk MD Tissues: A Colon Biopsy (RANDOM COLON BX) Procedures: TAMELA/2, Gross/Micro L4 Patient: Genny Brewer [id number] (Continued) Signed (signature on file) Kalpana Benavides MD 07/26/23 1240 Normal [facility] Capillary blood glucose cata urement by glucometer (mass/volume)Ordered By: Branden Du on 05-06-2023 Glucose [Mass/Vol] 93 mg/dL Normal [facility] Comment on above: Random Glucose Refer ence Range is dependent on time and content of last meal. Glucose of more than 200 mg/dL in a nonstressed, ambulatory subject supports the diagnosis of Diabetes Mellitus. Result Comment: [facility] Glucose Reference Range is dependent on time and content of last meal. Glucose of more than 200 mg/dL in a nonstressed, ambulatory subject supports the diagnosis of Diabetes Mellitus. PERFORMED BY: [place] [address] PATHOLOGIST [employer] MACHINE OPERATOR KAYLIN ARDON M.D. Performed By: #### L IPID, CBC, HS TROP, BMP #### [address] PET tumor init tx strat sb-m ton 05-06-2023 PET tumor init tx strat sb-mt [facility] [address] [place] [address] Nuclear Medicine Report Signed Patient: Genny Brewer MR#: [id number] : 1940 Acct:[id number] Age/Sex: 82 / F ADM Date: 05/06/23 Loc: Room: Type: [facility] Attending Dr: Branden Du DO Copies to: DO Reginaldo Soni Jr, Ordering Provider: Branden Du DO Date of [...] disease. Impression dictated by: Reginaldo Rivas Jr., DenzelOValentin05/06/2023 1:35 PM Dictation Location: [place] [address] Transcribed By: [facility] 05/06/23 1335 Dictated By: Reginaldo Rivas Jr, DO 05/06/23 1326 Signed By: 05/06/23 1335 Normal [facility] Urinalysis - DIPSTICKon 06-0 Appearance (U) clear [employer] Other Bilirubin Ql (U) Negative [employer] Other Color (U) light yellow [employer] Other Glucose Ql (U) Negative [employer] Other Hemoglobin Ql (U) Negative [employer] Other Ketones Ql (U) Negative [employer] Other Leukocyte esterase Test strip Ql (U) Negative [employer] Other Nitrite Ql (U) Negative [employer] Other pH (U) 5.0 [pH] [place] [employer] Other Protein Ql (U) Negative [employer] Other Specific gravity (U) [Rel density] 1.005 [place] [employer] Other Urobilinogen (U) [Mass/Vol] 0.5 mg/dL [place] [employer] Other Urinalysis - DIPSTICK Nor [employer] Other CBC AUTO DIFFon 05-21-2022 BASO # 0.0 103/ul Normal 0.0-0.1 [facility] Comment on above: Performed By: #### C BC #### [facility] [address] [place] [address] Dr. Arlyn Chan Basophils/100 WBC (Bld) 0.6 % Normal 0.2-2.0 [facility] Comment on above: Performed By: #### C BC #### [facility] [address] [place] [address] Dr. Arlyn Chan EO # 0.1 103/ul Normal 0.0-0.7 [facility] Comment on above: Performed By: #### C BC #### [facility] [address] [place] [address] Dr. Arlyn Chan Eosinophils/100 WBC (Bld) 1.1 % Normal 0.9-7.0 [facility] Comment on above: Performed By: #### C BC #### [facility] [address] [place] [address] Dr. Arlyn Chan Erythrocyte distribution width (RBC) [Ratio] 13.6 % Normal 11.0-15.0 [facility] Comment on above: Performed By: #### C BC #### [facility] [address] [place] [address] Dr. Arlyn Chan Hematocrit (Bld) [Volume fraction] 44.3 % Normal 36.0-48.0 [facility] Comment on above: Performed By: #### C BC #### [facility] [address] [place] [address] Dr. Arlyn Chan Hemoglobin (Bld) [Mass/Vol] 14.8 g/dL Normal 12.0-16.0 [facility] Comment on above: Performed By: #### C BC #### [facility] [address] [place] [address] Dr. Arlyn Chan IG # 0.00 10e3/ul Normal 0.00-0.03 [facility] Comment on above: Performed By: #### C BC #### [facility] [address] [place] [address] Dr. Arlyn Chan IG % 0.0 % Normal 0.0-0.5 [facility] Comment on above: Performed By: #### C BC #### [facility] [address] [place] [address] Dr. Arlyn Chan LYMPH # 1.7 103/ul Normal 1.2-3.8 [facility] Comment on above: Performed By: #### C BC #### [facility] [address] [place] [address] Dr. Arlyn Chan Lymphocytes/100 WBC (Bld) 31.1 % Normal 20.5-60.0 [facility] Comment on above: Performed By: #### C BC #### [facility] [address] [place] [address] Dr. Arlyn Chan MANUAL DIFF REQ NO Normal [facility] Comment on above: Performed By: #### C BC #### [facility] [address] [place] [address] Dr. Arlyn Chan MCH (RBC) [Entitic mass] 31.9 pg Normal 26.7-34.0 [facility] Comment on above: Performed By: #### C BC #### [facility] [address] [place] [address] Dr. Arlyn Chan MCHC (RBC) [Mass/Vol] 33.4 g/dL Normal 29.9-35.2 [facility] Comment on above: Performed By: #### C BC #### [facility] [address] [place] [address] Dr. Arlyn Chan MCV (RBC) [Entitic vol] 95.5 fL Normal 81.0-99.0 [facility] Comment on above: Performed By: #### C BC #### [facility] [address] [place] [address] Dr. Arlyn Chan MONO # 0.5 103/ul Normal 0.3-0.8 [facility] Comment on above: Performed By: #### C BC #### [facility] [address] [place] [address] Dr. Arlyn Chan Monocytes/100 WBC (Bld) 8.8 % Normal 1.7-12.0 [facility] Comment on above: Performed By: #### C BC #### [facility] [address] [place] [address] Dr. Arlyn Chan NEUT # 3.1 103/ul Normal 1.4-6.5 [facility] Comment on above: Performed By: #### C BC #### [facility] [address] [place] [address] Dr. Arlyn Chan Neutrophils/100 WBC (Bld) 58.4 % Normal 43.0-75.0 [facility] Comment on above: Performed By: #### C BC #### [facility] [address] [place] [address] Dr. Arlyn Chan Platelet mean volume (Bld) [Entitic vol] 10.0 fL Normal 9.5-13.5 [facility] Comment on above: Performed By: #### C BC #### [facility] [address] [place] [address] Dr. Arlyn Chan PLT 242 103/ul Normal 150-450 [facility] Comment on above: Performed By: #### C BC #### [facility] [address] [place] [address] Dr. Arlyn Chan RBC 4.64 106/ul Normal 4.20-5.40 [facility] Comment on above: Performed By: #### C BC #### [facility] [address] [place] [address] Dr. Arlyn Chan WBC 5.4 103/ul Normal 4.0-11.0 [facility] Comment on above: Performed By: #### C BC #### [facility] [address] [place] [address] Dr. Arlyn Chan PROF CHEM 8 (BAS METB)on Anion gap [Moles/Vol] 13.9 mmol/L Normal [facility] Comment on above: Performed By: #### H STROPN, BMP #### [facility] [address] [place] [address] Dr. Arlyn Chan Calcium [Mass/Vol] 9.4 mg/dL Normal 8.5-10.1 [facility] Comment on above: Performed By: #### H STROPN, BMP #### [facility] [address] [place] [address] Dr. Arlyn Chan Chloride [Moles/Vol] 105 mmol/L Normal 98-107 [facility] Comment on above: Performed By: #### H STROPN, BMP #### [facility] [address] [place] [address] Dr. Arlyn Chan CO2 [Moles/Vol] 24.3 mmol/L Normal 21.0-32.0 [facility] Comment on above: Performed By: #### H STROPN, BMP #### [facility] [address] [place] [address] Dr. Arlyn Chan Creatinine [Mass/Vol] 0.76 mg/dL Normal 0.55-1.02 [facility] Comment on above: Performed By: #### H STROPN, BMP #### [facility] [address] [place] [address] Dr. Arlyn Chan EGFR-AF MACANESE >60 Normal >=60 [facility] Comment on above: Performed By: #### H STROPN, BMP #### [facility] [address] [place] [address] Dr. Arlyn Chan EGFR-NON AF MACANESE >60 Normal >=60 [facility] Comment on above: Performed By: #### H STROPN, BMP #### [facility] [address] [place] [address] Dr. Arlyn Chan Glucose [Mass/Vol] 96 mg/dL Normal 74-106 [facility] Comment on above: Performed By: #### H YURI, BMP #### [facility] [address] [place] [address] [address] Arlyn Chan Potassium [Moles/Vol] 4.2 mmol/L Normal 3.5-5.1 [facility] Comment on above: Performed By: #### H YURI, BMP #### [facility] [address] [place] [address] [address] Arlyn Chan Sodium [Moles/Vol] 139 mmol/L Normal 136-145 [facility] Comment on above: Performed By: #### H YURI, BMP #### [facility] [address] [place] [address] [address] Arlyn Chan Urea nitrogen [Mass/Vol] 21.0 mg/dL Critically high 7.0-18.0 [facility] Comment on above: Performed By: #### H YURI, BMP #### [facility] [address] [place] [address] [address] Arlyn Chan Urea nitrogen/Creatinine [Mass ratio] 27.6 mg/mg Normal [facility] Comment on above: Performed By: #### H YURI, BMP #### [facility] [address] [place] [address] Dr. Arlyn Chan Progress Noteson 05-21-2022 Scale Manager Authentication Interface Message Text EMERGENCY TRIAGE, TREAT AND TRANSPORT (ET3) DOCUMENTATION OF TELEHEALTH VISIT Date / Time: 05/21/2022944 Name: Genny Brewer : 1940 SSN: (Not on file) EMS Agency: [facility] [x] Verbal consent obtained [] Implied [...] the typically is not available at a [facility] primary care physician's office. Patient declined using ambulance go to the ER, and her daughter who was present on scene will drive her the 4 minutes will take to get to the [place] [facility]. I advised her to call 911 [...] Completed by: Sudheer Haro MD Normal [facility] TROPONIN, HIGH SENSITIVITYon 05-21-2022 HSTROP 5.9 pg/mL Normal 4.0-51.3 [facility] Comment on above: Result Comment: CUT- OFF POINTS HAVE BEEN ESTABLISHED BASED ON THE FOURTH UNIVERSAL DEFINITIONS OF MYOCARDIAL INFARCTION. THE UPPER REFERENCE LIMIT (URL) OF TROPONIN, DEFINED THE 99TH PERCENTILE OF cTnI DISTRIBUTION IN A REFERENCE POPULATION, HAS BEEN CONFIRMED THE DECISION THRESHOLD FOR CT DIAGNOSIS. Performed By: #### H STRO, [facility] #### [facility] [address] [place] [id number] Arlyn Chan MG MAMM SCREEN 3D VINNY CADon 02-08-2022 MG MAMM SCREEN 3D VINNY CAD Patient: GENNY BREWER Exam Date: 02/08/2022 : 1940 Gender:F Ordering : DR BRANDEN DU D.O. Admission #: [id number] Family : Order #: [id number] CLICK HERE TO VIEW EXAM RADIOLOGY REPORT [...] bowel resection Family Cancers None LOCATION: [facility] BREAST COMPOSITION: Scattered areas fibroglandular density. FINDINGS: [...] MD on 02/08/2022 at 14:06 Normal [facility] CT CHEST WO CONon 08-11-2021 CT CHEST [...] by: JOAQUIN SOTO Date: 2021-08-11 17:29 Normal [facility] Vital Signs Date Time Vital Sign Value Performing Clinician Facility 12-20-2023 10:40-0400 Body height 154.9 cm Inderjit Saenz DO Work Phone: [facility] 12-20-2023 10:40-0400 Body mass index (BMI) [Ratio] 27.02 kg/m2 Inderjit Saenz DO Work Phone: [facility] 12-20-2023 10:40-0400 Body weight 64.86 kg Inderjit Saenz DO Work Phone: [facility] 12-20-2023 10:40-0400 Diastolic blood pressure 86 mm[Hg] Inderjit Saenz DO Work Phone: [facility] 12-20-2023 10:40-0400 Heart rate 57 /min Inderjit Saenz DO Work Phone: [facility] 12-20-2023 10:40-0400 Systolic blood pressure 120 mm[Hg] Inderjit Saenz DO Work Phone: [facility] 12-12-2023 13:21-0400 Body height 154.94 cm FLAKITA Álvarez Work Phone: [facility] 12-12-2023 13:21-0400 Body mass index (BMI) [Ratio] 26.6 kg/m2 FLAKITA Álvarez Work Phone: [facility] 12-12-2023 13:21-0400 Body weight 64 kg PA-C Doe Álvarez Work Phone: [facility] 12-04-2023 15:49-0400 Body height 154.94 cm PA-C Doechanel Álvarez Work Phone: [facility] 12-04-2023 15:49-0400 Body mass index (BMI) [Ratio] 26.9 kg/m2 PA-C Doechanel Álvarez Work Phone: [facility] 12-04-2023 15:49-0400 Body weight 64.58 kg PA-C Doechanel Álvarez Work Phone: [facility] 12-04-2023 15:49-0400 Diastolic blood pressure 83 mm[Hg] PA-C Doe Álvarez Work Phone: [facility] 12-04-2023 15:49-0400 Heart rate 71 /min PA-C Doe Álvarez Work Phone: [facility] 12-04-2023 15:49-0400 Respiratory rate 12 /min PA-C Doechanel Álvarez Work Phone: [facility] 12-04-2023 15:49-0400 Systolic blood pressure 151 mm[Hg] PA-C Doe Álvarez Work Phone: [facility] 11-12-2023 11:55-0400 Body height 154.94 cm PA-C Doe Álvarez Work Phone: [facility] 11-12-2023 11:55-0400 Body mass index (BMI) [Ratio] 27.3 kg/m2 PA-C Doechanel Álvarez Work Phone: [facility] 11-12-2023 11:55-0400 Body weight 65.48 kg PA-C Doechanel Álvarez Work Phone: [facility] 11-12-2023 11:55-0400 Diastolic blood pressure 84 mm[Hg] PA-C Doe Álvarez Work Phone: [facility] 11-12-2023 11:55-0400 Heart rate 57 /min PA-C Doe Álvarez Work Phone: [facility] 11-12-2023 11:55-0400 Respiratory rate 12 /min PA-C Doe Álvarez Work Phone: [facility] 11-12-2023 11:55-0400 Systolic blood pressure 144 mm[Hg] PA-C Doe Álvarez Work Phone: [facility] 11-07-2023 10:05-0400 Body height 154.9 cm Inderjit Saenz DO Work Phone: [facility] 11-07-2023 10:05-0400 Body mass index (BMI) [Ratio] 26.83 kg/m2 Inderjit Saenz DO Work Phone: [facility] 11-07-2023 10:05-0400 Body weight 64.41 kg Inderjit Saenz DO Work Phone: [facility] 11-07-2023 10:05-0400 Diastolic blood pressure 68 mm[Hg] Inderjit Saenz DO Work Phone: [facility] 11-07-2023 10:05-0400 Heart rate 82 /min Inderjit Saenz DO Work Phone: [facility] 11-07-2023 10:05-0400 Systolic blood pressure 118 mm[Hg] Inderjit Saenz DO Work Phone: [facility] 11-05-2023 11:37-0400 Diastolic blood pressure 61 mm[Hg] IGNACIA-C Doe Álvarez Work Phone: [facility] 11-05-2023 11:37-0400 Heart rate 63 /min PA-C Doe Álvarez Work Phone: [facility] 11-05-2023 11:37-0400 Respiratory rate 20 /min PA-C Doe Álvarez Work Phone: [facility] 11-05-2023 11:37-0400 SaO2% (BldA) [Mass fraction] 98 % PA-C Doe Álvarez Work Phone: [facility] 11-05-2023 11:37-0400 Systolic blood pressure 143 mm[Hg] PA-C Doe Álvarez Work Phone: [facility] 11-05-2023 09:10-0400 Body temperature 97.8 [degF] PA-C Doe Álvarez Work Phone: [facility] 11-05-2023 07:18-0400 Body height 154.94 cm PA-C Doe Álvarez Work Phone: [facility] 11-05-2023 07:18-0400 Body weight 65.77 kg PA-C Doe Álvarez Work Phone: [facility] 10-29-2023 16:00-0400 Body temperature 98.2 [degF] PA-C Doe Álvarez Work Phone: [facility] 10-29-2023 16:00-0400 Diastolic blood pressure 88 mm[Hg] PA-C Doe Álvarez Work Phone: [facility] 10-29-2023 16:00-0400 Heart rate 58 /min PA-C Doe Álvarez Work Phone: [facility] 10-29-2023 16:00-0400 Respiratory rate 16 /min PA-C Doe Álvarez Work Phone: [facility] 10-29-2023 16:00-0400 SaO2% (BldA) [Mass fraction] 96 % PA-C Doe Álvarez Work Phone: [facility] 10-29-2023 16:00-0400 Systolic blood pressure 140 mm[Hg] PA-C Doe Álvarez Work Phone: [facility] 10-29-2023 06:00-0400 Body weight 65.6 kg PA-C Doe Álvarez Work Phone: [facility] 10-29-2023 06:00-0400 Inhaled oxygen flow rate 2 L/min PA-C Doe Álvarez Work Phone: [facility] 10-27-2023 21:42-0400 Body height 154.94 cm PA-C Doe Álvarez Work Phone: [facility] 10-27-2023 19:05-0400 Diastolic blood pressure 64 mm[Hg] PA-C Doe Álvarez Work Phone: [facility] 10-27-2023 19:05-0400 Heart rate 75 /min PA-C Doe Álvarez Work Phone: [facility] 10-27-2023 19:05-0400 Respiratory rate 28 /min PA-C Doe Álvarez Work Phone: [facility] 10-27-2023 19:05-0400 SaO2% (BldA) [Mass fraction] 96 % PA-C Doe Álvarez Work Phone: [facility] 10-27-2023 19:05-0400 Systolic blood pressure 120 mm[Hg] PA-C Doe Álvarez Work Phone: [facility] 10-27-2023 17:31-0400 Body temperature 97.9 [degF] PA-C Doe Álvarez Work Phone: [facility] 10-27-2023 17:11-0400 Body height 154.94 cm PA-C Doe Álvarez Work Phone: [facility] 10-27-2023 17:11-0400 Body weight 66.3 kg PA-C Doe Álvarez Work Phone: [facility] 06-20-2023 14:32-0400 Body height 165.1 cm DO Branden Ball Work Phone: [facility] 06-20-2023 14:32-0400 Body mass index (BMI) [Ratio] 24.4 kg/m2 DO Branden Ball Work Phone: [facility] 06-20-2023 14:32-0400 Body weight 66.67 kg DO Branden Ball Work Phone: [facility] 06-20-2023 14:32-0400 Diastolic blood pressure 77 mm[Hg] DO Branden Ball Work Phone: [facility] 06-20-2023 14:32-0400 Heart rate 83 /min DO Branden Ball Work Phone: [facility] 06-20-2023 14:32-0400 Systolic blood pressure 150 mm[Hg] DO Branden Ball Work Phone: [facility] 06-07-2023 09:28-0400 Body height 165.1 cm DO Branden Ball Work Phone: [facility] 06-07-2023 09:28-0400 Body mass index (BMI) [Ratio] 24.6 kg/m2 DO Branden Ball Work Phone: [facility] 06-07-2023 09:28-0400 Body weight 67.18 kg DO Branden Ball Work Phone: [facility] 06-07-2023 09:28-0400 Diastolic blood pressure 87 mm[Hg] DO Branden Ball Work Phone: [facility] 06-07-2023 09:28-0400 Heart rate 77 /min DO Branden Ball Work Phone: [facility] 06-07-2023 09:28-0400 Respiratory rate 12 /min DO Branden Ball Work Phone: [facility] 06-07-2023 09:28-0400 Systolic blood pressure 146 mm[Hg] DO Branden Ball Work Phone: [facility] 05-21-2023 10:24-0500 Body height 165.1 cm DO Branden Ball Work Phone: [facility] 05-21-2023 10:24-0500 Body mass index (BMI) [Ratio] 24.3 kg/m2 DO Branden Ball Work Phone: [facility] 05-21-2023 10:24-0500 Body weight 66.22 kg DO Branden Ball Work Phone: [facility] 05-21-2023 10:24-0500 Diastolic blood pressure 81 mm[Hg] DO Branden Ball Work Phone: [facility] 05-21-2023 10:24-0500 Heart rate 71 /min DO Branden Ball Work Phone: [facility] 05-21-2023 10:24-0500 Respiratory rate 16 /min DO Branden Ball Work Phone: [facility] 05-21-2023 10:24-0500 Systolic blood pressure 131 mm[Hg] DO Branden Ball Work Phone: [facility] 04-12-2023 11:30-0500 Body height 165.1 cm Branden Ball Other [facility] 04-12-2023 11:30-0500 Body mass index (BMI) [Ratio] 24.59 kg/m2 Branden Ball Other [facility] Other 04-12-2023 11:30-0500 Body weight 67.04 kg Branden Ball Other [facility] 04-12-2023 11:30-0500 Diastolic blood pressure 75 mm[Hg] Branden Ball Other [facility] 04-12-2023 11:30-0500 Respiratory rate 12 /min Branden Ball Other [facility] Other 04-12-2023 11:30-0500 Systolic blood pressure 122 mm[Hg] Branden Ball Other [facility] 03-26-2023 11:30-0500 Body height 165.1 cm Branden Ball Other [facility] 03-26-2023 11:30-0500 Body mass index (BMI) [Ratio] 24.89 kg/m2 Branden Ball Other [facility] Other 03-26-2023 11:30-0500 Body weight 67.86 kg Branden Ball Other [facility] Other 03-26-2023 11:30-0500 Body weight 67.85 kg DO Branden Ball Work Phone: [facility] 03-26-2023 11:30-0500 Diastolic blood pressure 82 mm[Hg] Branden Ball Other [facility] 03-26-2023 11:30-0500 Respiratory rate 12 /min Branden Ball Other [facility] Other 03-26-2023 11:30-0500 Systolic blood pressure 192 mm[Hg] Branden Ball Other [facility] 02-08-2023 13:30-0500 Body height 165.1 cm Branden Ball Other [facility] 02-08-2023 13:30-0500 Body mass index (BMI) [Ratio] 24.29 kg/m2 Branden Ball Other [facility] Other 02-08-2023 13:30-0500 Body weight 66.23 kg Branden Ball Other [facility] Other 02-08-2023 13:30-0500 Body weight 66.22 kg DO Branden Ball Work Phone: [facility] 02-08-2023 13:30-0500 Diastolic blood pressure 79 mm[Hg] Branden Ball Other [facility] 02-08-2023 13:30-0500 Respiratory rate 12 /min Branden Ball Other [facility] Other 02-08-2023 13:30-0500 Systolic blood pressure 128 mm[Hg] Branden Ball Other [facility] 08-27-2022 11:15-0400 Body height 165.1 cm Branden Ball Other [facility] Other 08-27-2022 11:15-0400 Body mass index (BMI) [Ratio] 24.06 kg/m2 Branden Ball Other [facility] Other 08-27-2022 11:15-0400 Body weight 65.59 kg Branden Ball Other [facility] Other 08-27-2022 11:15-0400 Diastolic blood pressure 83 mm[Hg] Branden Ball Other [facility] Other 08-27-2022 11:15-0400 Respiratory rate 12 /min Branden Ball Other [facility] Other 08-27-2022 11:15-0400 Systolic blood pressure 152 mm[Hg] Branden Ball Other [facility] Other 07-09-2022 15:00-0400 Body height 165.1 cm Branden Ball Other [facility] Other 07-09-2022 15:00-0400 Body mass index (BMI) [Ratio] 23.23 kg/m2 Branden Ball Other [facility] Other 07-09-2022 15:00-0400 Body weight 63.32 kg Branden Ball Other [facility] Other 07-09-2022 15:00-0400 Diastolic blood pressure 72 mm[Hg] Branden Ball Other [facility] Other 07-09-2022 15:00-0400 Respiratory rate 12 /min Branden Ball Other [facility] Other 07-09-2022 15:00-0400 Systolic blood pressure 134 mm[Hg] Branden Ball Other [facility] Other 05-21-2022 15:45-0500 Body height 165.1 cm Branden Ball Other [facility] Other 05-21-2022 15:45-0500 Body mass index (BMI) [Ratio] 24.56 kg/m2 Branden Ball Other [facility] Other 05-21-2022 15:45-0500 Body weight 66.95 kg Branden Ball Other [facility] Other 05-21-2022 15:45-0500 Diastolic blood pressure 82 mm[Hg] Branden Ball Other [facility] Other 05-21-2022 15:45-0500 Respiratory rate 12 /min Branden Ball Other [facility] Other 05-21-2022 15:45-0500 Systolic blood pressure 136 mm[Hg] Branden Ball Other [facility] Other 05-21-2022 09:45-0500 Diastolic blood pressure 92 mm[Hg] [facility] 05-21-2022 09:45-0500 Heart rate 72 /min [facility] 05-21-2022 09:45-0500 Respiratory rate 18 /min [facility] [employer] [facility] 05-21-2022 09:45-0500 SaO2% (BldA) [Mass fraction] 98 % [facility] [facility] 05-21-2022 09:45-0500 Systolic blood pressure 181 mm[Hg] [facility] Encounters Encounter Date Encounter Type Care Provider Facility Start: 12-20-2023 End: 12-20-2023 Office outpatient visit 25 minutes Inderjit Bauman [facility] Work Phone: [facility] Comment on above: Near syncope; Fatigue, unspecified type; History of PTCA; Essential hypertension; History of ST elevation myocardial infarction (STEMI); Shortness of breath; Coronary artery disease, unspecified vessel or lesion type, unspecified whether angina present, unspecified whether [place] or transplanted heart; Former smoker; BMI 27.0-27.9,adult Start: 12-20-2023 End: 12-20-2023 ambulatory [facility] Start: 12-12-2023 End: 12-12-2023 ambulatory PA-Heri Álvarez Work Phone: [facility] Work Phone: Start: 12-12-2023 End: 12-12-2023 Patient encounter procedure FLAKITA Álvarez Work Phone: [facility] Gastro[facility]ology Work Phone: Start: 12-04-2023 End: 12-04-2023 ambulatory PA-Heri Álvarez Work Phone: [facility] Work Phone: Start: 12-04-2023 End: 12-04-2023 Patient encounter procedure PA-Heri Álvarez Work Phone: [facility] Work Phone: Start: 11-12-2023 End: 11-12-2023 ambulatory PA-Heri Álvarez Work Phone: [facility] Work Phone: Start: 11-12-2023 End: 11-12-2023 Patient encounter procedure PA-eHri Álvarez Work Phone: [facility] Work Phone: Start: 11-07-2023 End: 11-07-2023 ambulatory [facility] Start: 11-07-2023 End: 11-07-2023 Transitional care manage srvc 7 day discharge Inderjit Saenz DO Work Phone: [facility] Comment on above: Coronary artery dise ase, unspecified vessel or lesion type, unspecified whether angina present, unspecified whether [place] or transplanted heart; History of PTCA; History of ST elevation myocardial infarction (STEMI); Shortness of breath; Former smoker; BMI 26.0-26.9,adult; Hyperlipidemia, unspecified hyperlipidemia type Start: 11-05-2023 Non-patient / Non-visit FLAKITA Álvarez Work Phone: [facility] Work Phone: Start: 11-05-2023 End: 11-05-2023 Emergency department patient visit FLAKITA Álvarez Work Phone: [facility] Work Phone: Start: 10-28-2023 Non-patient / Non-visit FLAKITA Álvarez Work Phone: [facility] Work Phone: Start: 10-27-2023 End: 10-29-2023 Evaluation and management of inpatient FLAKITA Álvarez Work Phone: [facility] [place] [facility] Work Phone: Start: 07-25-2023 End: 07-25-2023 ambulatory Sylvester Monk Facility:[facility] Start: 06-20-2023 End: 06-20-2023 ambulatory DO Branden Du Work Phone: [facility] Work Phone: Start: 06-20-2023 End: 06-20-2023 Patient encounter procedure DO Branden Philly Work Phone: [facility] Work Phone: Start: 06-07-2023 End: 06-07-2023 ambulatory DO Branden Philly Work Phone: [facility] Work Phone: Start: 06-07-2023 End: 06-07-2023 Patient encounter procedure DO Branden Ball Work Phone: [facility] Work Phone: Start: 05-21-2023 End: 05-21-2023 Patient encounter procedure DO Branden Ball Work Phone: [facility] Work Phone: Start: 05-06-2023 End: 05-06-2023 Patient encounter procedure DO Branden Ball Work Phone: [facility]Pet [facility] Work Phone: Start: 05-06-2023 End: 05-06-2023 ambulatory DO Branden Ball Work Phone: [facility] Work Phone: Start: 04-24-2023 End: 04-24-2023 ambulatory ELENA HASSAN Not Available Start: 04-23-2023 End: 04-23-2023 ambulatory Branden Du Other [facility] Other Start: 04-23-2023 Telephone encounter Branden Ball [facility] Start: 04-22-2023 End: 04-22-2023 ambulatory Branden Ball Other [facility] Other Start: 04-22-2023 Telephone encounter Branden Ball [facility] Start: 04-17-2023 End: 04-17-2023 ambulatory Branden Ball Other [facility] Other Start: 04-17-2023 Telephone encounter Branden Ball [facility] Start: 04-12-2023 End: 04-12-2023 ambulatory Branden Ball Other [facility] Other Start: 04-12-2023 Office outpatient vi sit 15 minutes Branden Ball [facility] Start: 04-12-2023 Telephone encounter Branden Ball [facility] Start: 04-12-2023 End: 04-12-2023 Patient encounter procedure DO Branden Ball Work Phone: [facility]- Start: 04-08-2023 End: 04-08-2023 ambulatory Branden Du Other [facility] Other Start: 04-08-2023 Telephone encounter Branden Du [facility] Start: 04-01-2023 End: 04-01-2023 ambulatory Branden Du Other [facility] Other Start: 04-01-2023 Telephone encounter Branden ALAS [facility] Start: 03-27-2023 End: 03-27-2023 ambulatory Branden Du Other [facility] Other Start: 03-27-2023 Telephone encounter Branden Du [facility] Start: 03-26-2023 End: 03-26-2023 ambulatory Branden Du Other [facility] Other Start: 03-26-2023 Office outpatient vi sit 15 minutes Branden [facility] Start: 03-26-2023 End: 03-26-2023 Patient encounter procedure DO Branden Ball Work Phone: [facility] Work Phone: Start: 03-14-2023 End: 03-14-2023 ambulatory Branden Du Other [facility] Other Start: 03-14-2023 Telephone encounter Branden ALAS [facility] Start: 02-19-2023 End: 02-19-2023 ambulatory Branden Ball Other [facility] Other Start: 02-19-2023 Telephone encounter Branden Du [facility] Start: 02-08-2023 End: 02-08-2023 ambulatory Branden Ball Other [facility] Other Start: 02-08-2023 Patient encounter procedure Branden Du [facility] Start: 02-08-2023 End: 02-08-2023 Patient encounter procedure DO Branden Du Work Phone: [facility] Work Phone: Start: 09-20-2022 End: 09-20-2022 ambulatory Branden Ball Other [facility] Other Start: 09-20-2022 Telephone encounter Branden Ball [facility] Start: 08-27-2022 End: 08-27-2022 ambulatory Branden Ball Other [facility] Other Start: 08-27-2022 Office outpatient vi sit 15 minutes Branden Ball [facility] Start: 08-24-2022 End: 08-24-2022 ambulatory Branden Ball Other [facility] Other Start: 08-24-2022 Nursing evaluation o f patient and report Branden Du [facility] Start: 07-09-2022 End: 07-09-2022 ambulatory Branden Ball Other [facility] Other Start: 07-09-2022 Office outpatient vi sit 15 minutes Branden Ball [facility] Start: 06-12-2022 End: 06-12-2022 ambulatory Branden Ball Other [facility] Other Start: 06-12-2022 Telephone encounter Branden Ball [facility] Start: 06-11-2022 End: 06-11-2022 ambulatory Branden Ball Other [facility] Other Start: 06-11-2022 Telephone encounter Branden Ball [facility] Start: 05-22-2022 End: 05-22-2022 ambulatory Branden Ball Other [facility] Other Start: 02-28-2023 Telephone encounter Branden Ball [facility] Start: 05-21-2022 Office outpatient vi sit 15 minutes Branden Du [facility] [place] Start: 05-21-2022 End: 05-23-[address] BRANDEN DU Facility:[facility] Start: 05-21-2022 End: 05-21-2022 ambulatory [facility] Triage, Treat and Transport Start: 05-21-2022 End: 05-21-2022 Emergency department patient visit [facility] Emergency Triage, Treat and Transport Comment on above: Arrived Start: 05-04-2022 End: 05-04-2022 ambulatory Branden Du Other [facility] Other Start: 05-04-2022 Telephone encounter Branden Du FP [facility] Start: 05-03-2022 End: 05-03-2022 ambulatory Branden Du Other [facility] Other Start: 05-03-2022 Telephone encounter Branden Du [facility] Start: 02-08-2022 End: 02-09-[address] BRANDEN DU Facility:[facility] Start: 08-11-2021 End: 08-12-[address] BRANDEN DU Facility:[facility] Procedures Date Procedure Procedure Detail Performing Clinician Start: 12-20-2023 Ecg routine ecg w/le ast 12 lds w/i&r Inderjit Saenz DO Work Phone: Start: 11-07-2023 History of percutane ous transluminal coronary angioplasty History of PTCA Inderjit Saenz DO Work Phone: Start: 11-05-2023 CT angiography [...] computed tomography DO Branden Du Work Phone: History of percutane ous transluminal coronary angioplasty History of PTCA Inderjit Saenz DO Work Phone: Plan of Treatment Date Care Activity Detail Author Start: 05-27-2024 End: 05-27-2024 Patient encounter procedure 05/27/2024 10:50 AM EST Office Visit [facility] [address] [place] [address] Inderjit Saenz DO [address] [place] [address] [facility] Start: 03-11-2024 End: 03-11-2024 Patient encounter procedure 03/11/2024 10:40 AM EST Office Visit [facility] [address] [place] [address] Inderjit Saenz, DO [address] [place] [address] [facility] Start: 11-24-2023 Influenza vaccination Influenza Vaccine (#1) [facility] Start: 10-29-2023 [facility] Start: 10-27-2023 Consultation [facility] Start: 10-27-2023 Hospital admission [facility] Start: 10-27-2023 Referral to cardiac rehabilitation program [facility] Start: 10-27-2023 [facility] Start: 10-27-2023 End: 10-27-2023 [facility] Start: 10-27-2023 Dilation of Coronary Artery, One Artery with Drug-eluting Intraluminal Device, Percutaneous Approach Dilation of Coronary Artery, One Artery with Drug-eluting Intraluminal Device, Percutaneous Approach [facility] Start: 10-27-2023 Fluoroscopy of Left Heart using Low Osmolar Contrast Fluoroscopy of Left Heart using Low Osmolar Contrast [facility] Start: 10-27-2023 Fluoroscopy of Multiple Coronary Arteries using Low Osmolar Contrast Fluoroscopy of Multiple Coronary Arteries using Low Osmolar Contrast [facility] Start: 10-27-2023 Measurement of Cardiac Sampling and Pressure, Left Heart, Percutaneous Approach Measurement of Cardiac Sampling and Pressure, Left Heart, Percutaneous Approach [facility] Start: 05-21-2023 Patient referral [facility] Work Phone: Start: 04-29-2023 COVID-19 Vaccine () COVID-19 Vaccine () [facility] Start: 12-23-2021 Influenza vaccination Influenza Vaccine (#1) [facility] Start: 2005 Pneumococcal vaccination Pneumococcal Vaccine(s) (65+ yrs) (1 - PCV) [facility] Start: 2005 Screening for osteoporosis Bone Densitometry [facility] Start: 1990 Shingles (RZV) Vaccine (1 of 2) Shingles (RZV) Vaccine (1 of 2) [facility] Start: 1962 DTaP/Tdap/Td Vaccines (1 - Tdap) DTaP/Tdap/Td Vaccines (1 - Tdap) [facility] Start: 1958 Tetanus + diphtheria + acellular pertussis vaccine (product) Tdap Booster [facility] Start: 04-24-1941 COVID-19 Vaccine (#1) COVID-19 Vaccine (#1) [facility] Start: 1940 Basic metabolic 2000 panel - Serum or Plasma Basic Metabolic Panel [facility] Start: 1940 Lipid panel Lipid Panel [facility] Start: 1940 Medicare Annual Wellness Visit Medicare Annual Wellness Visit (AWV) [facility] Start: 1940 Screening for osteoporosis Bone Density Scan [facility] MR Shoulder - right WO contrast [facility] Patient Education Coronary Angio plasty (DC) Coronary Stenting (DC) Angina (DC) Chest Pain (DC) Drug Eluting Stents Know your Meds [facility] Work Phone: Patient referral [facility] Work Phone: Immunizations Immunization Date Immunization Notes Care Provider Allie nash 12-04-2023 influenza, high dose seasonal, preservative-free FLAKITA Álvarez Work Phone: [facility] 12-27-2022 influenza virus vaccine, unspecified formulation Inderjit Saenz DO Work Phone: [facility] Work Phone: 12-13-2021 influenza virus vaccine, split virus (incl. purified surface antigen) Branden Du Other [facility] Other 12-13-2021 influenza virus vaccine, unspecified formulation DO Branden Du Work Phone: [facility] 12-14-2020 influenza virus vaccine, split virus (incl. purified surface antigen) Branden Du Other [facility] Other 12-14-2020 influenza virus vaccine, unspecified formulation DO Branden Du Work Phone: [facility] 12-04-2019 influenza virus vaccine, split virus (incl. purified surface antigen) Branden Du Other [facility] Other 12-04-2019 influenza virus vaccine, unspecified formulation DO Branden Du Work Phone: [facility] 12-16-2018 influenza virus vaccine, split virus (incl. purified surface antigen) Branden Du Other [facility] Other 12-16-2018 influenza virus vaccine, unspecified formulation DO Branden Du Work Phone: [facility] 01-15-2018 influenza virus vaccine, split virus (incl. purified surface antigen) Branden Du Other [facility] Other 01-15-2018 influenza virus vaccine, unspecified formulation DO Branden Du Work Phone: [facility] 01-12-2017 influenza virus vaccine, split virus (incl. purified surface antigen) Branden Du Other [facility] Other 01-12-2017 influenza virus vaccine, unspecified formulation DO Branden Du Work Phone: [facility] 12-27-2015 influenza virus vaccine, split virus (incl. purified surface antigen) Branden Du Other [facility] Other 12-27-2015 influenza virus vaccine, unspecified formulation DO Branden [employer] Work Phone: [facility] 01-28-2015 pneumococcal conjuga te vaccine, 13 valent Branden Du Other [facility] Payers Date Payer Category Payer Self-pay 2023 Unknown [id number] 2022 Unknown [id number] 2022 Unknown [id number] 2005 Medicare MEDICARE MEDICAR E PART A AND B [id number] 2005-Present [address] [place] [address] [id number] 1959 Medicare [id number] 1959 Unknown [id number] 1940 Unknown [id number] 1940 Unknown [id number] 1940 Unknown [id number] 1940 Unknown [id number] 1940 Unknown [id number] 1940 Unknown [id number] 1940 Unknown [id number] Medicare Medicare [id number] Unknown [id number] Unknown [id number] Unknown [id number] Unknown [id number] Social History Date Type Detail Facility Tobacco smoking status [facility] Tobacco smoking consumption unknown [facility] Start: 1940 Sex Assigned At Not on file [facility] Start: 12-20-2023 [facility] [employer] Other Start: 1940 Sex Assigned At Female F [facility] Start: 06-20-2023 Tobacco smoking status [facility] Never smoked tobacco (finding) [facility] Start: 10-27-2023 End: 11-07-2023 Tobacco smoking status [facility]IS Ex-smoker (finding) [facility] Start: 11-05-2023 Tobacco smoking status [facility] Current some day smoker [facility] History of tobacco use Current smoker [facility] Work Phone: History of tobacco use Cigarette Smoker [facility] Work Phone: Start: 11-07-2023 Tobacco use and exposure Smokeless tobacco non-user [facility] Work Phone: Start: 11-07-2023 End: 12-20-2023 Alcoholic beverage intake Current drinker of alcohol (finding) [facility] Work Phone: Start: 10-28-2023 End: 12-20-2023 Exposure to SARS-CoV-2 (event) Not sure [facility] Start: 12-20-2023 Alcoholic beverage intake [facility] Work Phone: Medical Equipment Procedure Code Equipment Code Equipment Origin al Text Equipment Identifier Dates CL STENT PEDRO FRONTIER 4.0 X 18 FDA Start: 10-27-2023 Femoral artery closure plug/patch, synthetic polymer [id number] FDA Start: 10-27-2023 CL STENT PEDRO FRONTIER 4.0 X 18 FDA Start: 10-27-2023 CL STENT PEDRO FRONTIER 4.0 X 18 FDA Start: 10-27-2023 CL STENT PEDRO FRONTIER 4.0 X 18 FDA Start: 10-27-2023 CL STENT PEDRO FRONTIER 4.0 X 18 FDA Start: 10-27-2023 Goals Date Patient Goal Desired Activity /State Functional Status Date Assessment Result Facility 10-29-2023 Functional status Patient at Baseline [facility] Work Phone: Mental Status Date Assessment Result Facility 10-29-2023 Cognitive function Cognitive Sta tus Patient at Baseline [facility] Work Phone: Clinical Notes 05-04-2022 to 12-20-2023 Inderjit Saenz, DO - 12/20/2023 10:35 AM EDTPatient InstructionsInderjit Saenz, DO - 11/07/2023 9:40 AM EDTPatient Instructions Note Date & Type Note Facility 12-20-2023 History of Present illness Narrative Subjective Genny Brewer is a 83 y.o. female Chief Complaint Follow-up 83-year-old female seen at a early time point at her request to rediscuss symptoms and medications. She has had variable blood pressures but now very well-controlled on current therapies including amlodipine 5 mg, losartan 50 mg twice a day and metoprolol 25 mg twice a day. She remains on ticagrelor 90 mg twice a day after we had discussed switching over to clopidogrel. She still has symptomatic dyspnea and exertional shortness of breath that is variable. She states she was out weeding her garden yesterday actually doing quite well but had symptoms of dyspnea. She simply states that she is not back to her normal self and she wants to be around for a long time . She has a history of recent inferior STEMI with revascularization of the RCA with large drug-eluting stent, and normal left ventricular function. She has small vessel diagonal branch disease that we are treating conservatively and otherwise normal LAD and circumflex and no other disease in the RCA system. We discussed all of her medications and her symptoms with her at length today ECG is normal sinus rhythm with PAC, left axis deviation Recommendations: Switch to clopidogrel with appropriate loading dose at the end of the current ticagrelor prescription (end of next month) will follow-up in 6 months; she has no restrictions from my standpoint for traveling. Review of Systems Constitutional: Positive for malaise/fatigue. Respiratory: Positive for shortness of breath. Neurological: Positive for light-headedness. All other systems reviewed and are negative. Vitals: 12/20/23 1040 BP: 120/86 BP Location: Right arm Patient Position: Sitting Pulse: 57 Weight: 64.9 kg (143 lb) Height: 1.549 m (5' 1 ) EKG done in office today Objective Physical Exam Constitutional: Appearance: Normal appearance. [...] Allergies Penicillins Current Medications Current Outpatient Medications: amLODIPine (Norvasc) 5 mg tablet, Take 1 tablet (5 mg) by mouth once daily., Disp: , Rfl: aspirin 81 mg EC tablet, Take 1 tablet (81 mg) by mouth once daily., Disp: , Rfl: atorvastatin (Lipitor) 80 mg tablet, Take 1 tablet (80 mg) by mouth once daily., Disp: , Rfl: dicyclomine (Bentyl) 10 mg capsule, 1 capsule (10 mg) 2 times a day., Disp: , Rfl: losartan (Cozaar) 50 mg tablet, Take 1 tablet (50 mg) by mouth 2 times a day., Disp: 180 tablet, Rfl: 3 metoprolol tartrate (Lopressor) 25 mg tablet, Take 1 tablet (25 mg) by mouth 2 times a day., Disp: 180 tablet, Rfl: 3 multivit with minerals/lutein (MULTIVITAMIN 50 PLUS ORAL), [...] by mouth 2 times a day., Disp: 180 tablet, Rfl: 3 Assessment/Plan 1. Near syncope 2. Fatigue, unspecified type 3. History of PTCA 4. Essential hypertension 5. History of ST elevation myocardial infarction (STEMI) 6. Shortness of breath 7. Coronary artery disease, unspecified vessel or lesion type, unspecified whether angina present, unspecified whether little river or transplanted heart 8. Former smoker 9. BMI 27.0-27.9,adult Scribe Attestation By signing my name below, I, Jacque Foreman RN , Scribe attest that this documentation has been prepared under the direction and in the presence of Inderjit Saenz DO. Provider Attestation - Scribe documentation All medical record entries made by the Scribe were at my direction and personally dictated by me. I have reviewed the chart and agree that the record accurately reflects my personal performance of the history, physical exam, discussion and plan. documented in this encounter [facility] Work Phone: 12-20-2023 Instructions Jacque Quesada RN - 12/20/2023 10:35 AM EDT Please bring all medicines, vitamins, and herbal supplements with you when you come to the office. Prescriptions will not be filled unless you are compliant with your follow up appointments or have a follow up appointment scheduled as per instruction of your physician. Refills should be requested at the time of your visit. BMI was above normal measurement. Current weight: 64.9 kg (143 lb) Weight change since last visit (-) denotes wt loss 1 lbs Weight loss needed to achieve BMI 25: 11 Lbs Weight loss needed to achieve BMI 30: -15.4 Lbs Provided instructions on dietary changes Provided instructions on exercise. Finish your 1 month supply of brilinta. Once you are done with brilinta, then switch to plavix. When you switch to plavix take 4 pills on the first day then take 1 pill each day after. documented in this encounter [facility] Work Phone: 11-07-2023 History of Present illness Narrative Subjective Genny Brewer is a 83 y.o. female Chief Complaint [...] type, unspecified whether angina present, unspecified whether little river or transplanted heart 2. History of PTCA 3. History of ST elevation myocardial infarction (STEMI) 4. Shortness of breath 5. Former smoker 6. BMI 26.0-26.9,adult 7. Hyperlipidemia, unspecified hyperlipidemia type Scribe Attestation By signing my name below, I, Stiven Fajardo LPN attest that this documentation has been prepared under the direction and in the presence of Inderjit Saenz DO. Provider Attestation - Scribe documentation All medical record entries made by the Scribe were at my direction and personally dictated by me. I have reviewed the chart and agree that the record accurately reflects my personal performance of the history, physical exam, discussion and plan. documented in this encounter [facility] Work Phone: 11-07-2023 Instructions Kacy Norris [...] on dietary changes. documented in this encounter [facility] Work Phone: 10-28-2023 Consult note Note Date/Time October 28, 2023 8:5 5pm [facility] [address] [place] [address] Pulmonology Consult Note Signed Patient: Genny Brewer MR#: [id number] : 1940 Acct:[id number] Age/Sex: 83 / F Adm Date: 4 Loc: Room: [address] [place] [address] Type: ADM IN Attending Dr: Reji Saenz DO Copies to: DO Reji Soni DO Yuhann Dale L Maldonado, MD~ HPI Date/Time of Consultation: Date of Service: 10/28/2023 Time of Service: 20:50 Consulting Provider: Sobia Okeefe Requesting Provider: Reji Saenz Reason for Consult: ICU support History of Present Illness History of present illness: Ms. Brewer is a 83 year old female admitted through the emergency room with new onset chest discomfort and found to have an inferior STEMI, emergently brought to the specialist employee labor relations and found to have RCA with 99% stenosis, s/p PCI, did well was transferred to ICU without needing intubation or hemodynamic support. Currently on RA, on ASA, Brilinta, BB, statin, ROBIN. Review of Systems Constitutional Constitutional: Reports as per HPI Cardiovascular Cardiovascular: Reports as per HPI and Reports chest pain at rest [facility] Medical History Lung nodule CT: 1.7cm [...] <Electronically signed by Sobia Okeefe MD> 10/28/232054 [facility] Work Phone: 1(925) 239-532408-05-2024 Progress note Author W Jett [facility] [place] 5th, 2024 11:54am Note Date/Time October 28, 2023 11: 54am [facility] [address] [place] [address] Cardiology Progress Note Signed Patient: Genny Brewer MR#: [id number] : 1940 Acct:[id number] Age/Sex: 83 / F Adm Date: 4 Loc: Room: [address] [place] [address] Type: ADM IN Attending Dr: Reji Saenz DO Copies to: ~ Date of Service: 10/28/2023 Subjective Principal diagnosis: Inferior STEMI Interval history: Ms. Brewer is a 83 year old female admitted through the emergency room with new onset chest discomfort, ECG at 1710 revealed inferior STEMI as transmitted from ER to my electronic device. Case discussed with nurse practitioner; appropriateupstream antiplatelet and Antithrombin therapies administered under my direction, patient arrived in [employer] at 1756 and underwent primary PCI [...] critical care time were devoted to ER staff,[employer] staff, nursing staff, patient and family [...] % (Auto) 63.6 Lymph % (Auto) 25.7 [place] % (Auto) 8.7 Eos % (Auto) 0.7 Baso % (Auto) 1.3 Nucleat RBC Rel Count 0.1 Neut # (Auto) 5.5 Lymph # (Auto) 2.2 [place] # (Auto) 0.7 Eos # (Auto) 0.1 [...] Troponin I High Sens 10.2 6295.7 H* 06917.3 H* B-Natriuretic Peptide 124.0 H Total Protein [...] % (Auto) 68.0 Lymph % (Auto) 20.4 [place] % (Auto) 10.2 Eos % (Auto) 0.5 Baso % (Auto) 0.9 Nucleat RBC Rel Count 0.1 Neut # (Auto) 5.7 Lymph # (Auto) 1.7 [place] # (Auto) 0.9 H Eos # (Auto) [...] Total Creatine Kinase Troponin I High Sens 10609.9 H* 45864.0 H* 88726.4 H* B-Natriuretic Peptide Total Protein Albumin Globulin [...] With Patient (min): 30 Documented By: Reji Saenz DO 10/28/23 1150 Signed By: <Electronically signed by Reji Saenz DO> 10/28/23 1154 [facility] Work Phone: 1(557) 328-183608-04-2024 History and physical note Author Reji Saenz [facility] October 27, 2023 6:21pm Note Date/Time October 27, 2023 5:5 1pm [facility] [address] [place] [address] Cardiology H&P Signed Patient: Genny Brewer MR#: [id number] : 1940 Acct:[id number] Age/Sex: 83 / F Adm Date: 4 Loc: Room: Type[facility] Attending Dr: Reji Saenz DO Copies to: DO Reji Soni, ~ Date of Service: 10/27/2023 Cardiology HPI History of Present Illness Chief complaint: Inferior STEMI HPI: Ms. Brewer is a 83 year old female admitted through the emergency room with new onset chest discomfort, ECG at 1710 revealed inferior STEMI as transmitted from ER to my electronic device. Case discussed with nurse practitioner; appropriateupstream antiplatelet and Antithrombin therapies administered under my direction, patient arrived in [employer] at 1756 and underwent primary PCI [...] critical care time were devoted to ER staff,[employer] staff, nursing staff, patient and family both pre and post procedurally. Review of Systems Review of Systems All other systems reviewed & are negative unless noted below or in HPI Constitutional Constitutional: Reports as per HPI Cardiovascular Cardiovascular: Reports as per HPI and Reports chest pain at rest [facility] Medical History Lung nodule CT: 1.7cm [...] x10E3/uL Lymph # (Auto) 2.2 (1.00-4.8) x10E3/uL [place] # (Auto) 0.7 (0.0-0.8) x10E3/uL Eos # [...] results cardiology: sinus rhythm EKG shows: bradycardia CT, pacemaker, normal Myocardial infarction: inferior CT (acute or recent) A&P - Cardiology (1) ST elevation myocardial infarction (STEMI) of inferior wall: Code(s): I21.19 - ST elevation (STEMI) myocardial infarction involving other coronary artery of inferior wall Plan Proceed with emergency cath and PCI Documented By: W Celestino Jett, DO 10/27/23 1750 Signed By: <Electronically signed by Reji Saenz DO> 10/27/23 1821 [facility] Work Phone: 1(281) 683-488008-04-2024 [facility] Procedure note [facility]01-30-2024 Evaluation note* Encounter Date Diagnosis Assessment Notes Treatment Notes Treatment Clinical Notes Mar, Primary hypertension (ICD-10 - I10) [facility] Other 01-29-2024 Evaluation note* Encounter Date Diagnosis Assessment Notes Treatment Notes Treatment Clinical Notes Mar, Lung nodule (ICD-10 - R91.1) [facility] Other 01-24-2024 Evaluation note* Encounter Date Diagnosis Assessment Notes Treatment Notes Treatment Clinical Notes Mar, Lung mass (ICD-10 - R91.8) [facility] Other 01-19-2024 Evaluation note* Encounter Date Diagnosis Assessment Notes Treatment Notes Treatment Clinical Notes Mar, Fall, initial encounter (ICD-10 - W19.XXXA) She denies CP, DASILVA, palpitations or lightheadedness Tripped over her shoe laces Fall precautions Mar, Right arm pain (ICD-10 - M79.601) Not sure how she landed. Ice, heat Mar, Contusion of right upper extremity, initial encounter (ICD-10 - S40.021A) [facility] Other 01-15-2024 Evaluation note* Encounter Date Diagnosis Assessment Notes Treatment Notes Treatment Clinical Notes Mar, Left lower quadrant abdominal pain (ICD-10 - R10.32) Mar, Diarrhea, unspecified type (ICD-10 - R19.7) [facility] Other 01-08-2024 Evaluation note* Encounter Date Diagnosis Assessment Notes Treatment Notes Treatment Clinical Notes Mar, Irritable bowel syndrome without diarrhea (ICD-10 - K58.9) [facility] Other 01-02-2024 Evaluation note* Encounter Date Diagnosis [...] would refer for colonoscopy to exclude colitis [facility] Other 12-21-2023 Evaluation note* Encounter Date Diagnosis Assessment Notes Treatment Notes Treatment Clinical Notes Feb, Gastroesophageal ref lux disease with esophagitis without hemorrhage (ICD-10 - K21.00) [facility] Other 11-28-2023 Evaluation note* Encounter Date Diagnosis Assessment Notes Treatment Notes Treatment Clinical Notes Jan, Dysuria (ICD-10 - R30.0) [facility] Other 11-17-2023 Evaluation note* Encounter Date Diagnosis [...] patient on monthly SBE and yearly mammograms. [facility] Other 06-29-2023 Evaluation note* Encounter Date Diagnosis Assessment Notes Treatment Notes Treatment Clinical Notes Aug, Primary hypertension (ICD-10 - I10) [facility] Other 06-05-2023 Evaluation note* Encounter Date Diagnosis [...] best 2/3 readings w/ goal < 135-85 [facility] Other 06-02-2023 Evaluation note* Encounter Date Diagnosis Assessment Notes Treatment Notes Treatment Clinical Notes Aug, Dysuria (ICD-10 - R30.0) [facility] Other 04-17-2023 Evaluation note* Encounter Date Diagnosis Assessment Notes Treatment Notes Treatment Clinical Notes Jun, Primary hypertension (ICD-10 - I10) This patient is instructed to consume a healthy, low-fat, low-salt diet. They are also encouraged to continue exercise to achieve/maintain a normal BMI. Jun, Nicotine dependence, cigarettes, in remission (ICD-10 - F17.211) Continue abstinence [facility] Other 03-21-2023 Evaluation note* Encounter Date Diagnosis Assessment Notes Treatment Notes Treatment Clinical Notes May, Primary hypertension (ICD-10 - I10) [facility] Other 03-20-2023 Evaluation note* Encounter Date Diagnosis Assessment Notes Treatment Notes Treatment Clinical Notes May, Primary hypertension (ICD-10 - I10) [facility] Other 02-28-2023 Evaluation note* Encounter Date Diagnosis Assessment Notes Treatment Notes Treatment Clinical Notes Apr, Primary hypertension (ICD-10 - I10) [facility] Other 02-27-2023 Evaluation note* Encounter Date Diagnosis [...] (ICD-10 - F17.211) Continue abstinence Apr, Other [facility] Other 02-27-2023 History of Present illness Narrative* Sudheer Haro MD - 05/21/2022 10:00 AM EST Images from the original note were not included. EMERGENCY TRIAGE, TREAT AND TRANSPORT (ET3) DOCUMENTATION OF TELEHEALTH VISIT Date / Time: 05/21/2022944 Name: Genny Brewer : 1940 SSN: (Not on file) EMS Agency: [facility] [x] Verbal consent obtained [] Implied [...] the typically is not available at a purvis primary care physician's office.Patient declined using ambulance go to the ER, and her daughter who was present on scene will driveher the 4 minutes will take to get to the [place] ER. I advised her to call 911 [...] by: Sudheer Haro MD documented in this [id number] Evaluation note* Encounter Date Diagnosis Assessment Notes Treatment Notes Treatment Clinical Notes Apr, Nausea (ICD-10 - R11.0) [facility] Other Discharge summary Author Reji Saenz [facility] October 29, 2023 3:50pm Note Date/Time October 29, 2023 3:4 8pm [facility] [address] [place] [address] Discharge Summary Signed Patient: Genny Brewer MR#: [id number] : 1940 Acct:[id number] Age/Sex: 83 / F Adm Date: 4 Loc: Room: [address] [place] [address]: Reji Saenz DO Copies to: DO Reji Soni DO~ Providers Date of Discharge: 10/29/23 Discharging Provider: Reji Saenz Primary Care Provider: Branden Du Consults: 10/27/23 [...] proximal RCA with 4 x 18 mm Pedro stent 5. Preserved LV function 6. Essential hypertension Summary Hospital Course Hospital course: 83-year-old female presented with acute inferior ST elevation CT on Saturday, October 27, 2023 and underwent rapid revascularization of the proximal RCA with large 4 mm drug-eluting stent within 60 minutes. LV function is preserved. Shedoes have small vessel diagonal branch disease that is going to be treated conservatively. She had no postoperative for post CT complications, arrhythmia,heart failure or recurrent angina. She will be discharged this afternoon, currently on aspirin 81 daily, [id number] twice daily, metoprolol 25 twice daily, losartan [...] Closure Device Placement 0 - W Celestino Seanz DO p CL LHC & COR Angio - W Celestino Saenz DO p CL PCI AMI 1st Vessel RCA SHAILA - W Celestino Saenz DO Complications Complications: None Discharge Plan Discharge [...] doctor or pharmacist, without first calling the foreclosure specialist who implanted the stent. If you require [...] weight lifting, stair steppers, etc. until the foreclosure specialist approves these activities. Check with the foreclosure specialist on your first follow-up visit. CALL YOUR HEMMER [employer]: -If bleeding should occur from the catheter insertion site- apply pressure to the site then immediately call us. -Report any fever, redness, drainage, increased swelling, or firmness at the catheter insertion site. Some bruising or slight swelling may be present at thetime of discharge. -Should arm or leg become cold, numb, white, or blue, contact the foreclosure specialist immediately. -IF you should experience episodes of [...] Cardiopulmonary Rehabilitation program is recommended. The attending foreclosure specialist or a nurse clinician should provide you with specificinstructions regarding activity, diet, medications, and further follow up for you. Follow the medication instructions provided on your discharge. If the dosages and instructions on this sheet differ from the dosage and instructions on the bottle, follow the instructions on the bottle. [facility] is not responsible for incorrect prescription information [...] Location: Determined by Patient Ordered By: Reji Saenz Follow Up: Reji Saenz DO [Active Staff - D.O.] - Branden Du DO [Primary Care Provider] - 3-5 Days Exam Physical Exam Vital Signs: Temp Pulse Resp BP Pulse Ox O2 Del Method O2 Flow Rate 98.1 F 60 28 H 145/77 H 97 Room Air 2 10/29/23 12:00 10/29/23 15:00 10/29/23 15:00 10/29/23 15:00 10/29/23 15:00 10/29/23 15:10/29/23 06:00 Const General: cooperative, healthy appearing, comfortable [...] % (Auto) 73.5, Lymph % (Auto) 15.8, [place] % (Auto) 9.4, Eos % (Auto) 0.6, Baso % (Auto) 0.7, Nucleat RBC Rel Count 0.1, Neut # (Auto) 5.9, Lymph # (Auto) 1.3, [place] # (Auto) 0.8, Eos # (Auto) 0.0, Baso # (Auto) 0.1, PHA Creatinine Clear 41.47, Sodium 138, Potassium 4.0, Chloride 109 H, Carbon Dioxide 24.3, Anion Gap 8.7, BUN 17, Creatinine 0.91, Est GFR (CKD-EPI) > 60.0, Glucose 105 H, Calcium 9.3 Documented By: Reji Saenz DO 10/29/23 1543 Signed By: <Electronically signed by Reji Saenz DO> 10/29/23 0740 [facility] Work Phone: Evaluation note* Diagnosis Hypertensive urgency- Primary documented [facility] encounter [facility] Information[facility] Other Evaluation noteNo assessment information available [facility] Work Phone: evaluation note* Diagnosis Onset Date Resolution Status Change in bowel habits acute Primary hypertension acute Rotator cuff arthropathy of right shoulder acute Hx of malignant neoplasm of colon noneactive Pain in right shoulder nonea ctive [facility] Work Phone: evaluation note* Diagnosis Onset Date Resolution Status Change in bowel habits acute Primary hypertension acute Rotator cuff arthropathy of right shoulder acute Hx of malignant neoplasm of colon noneactive Pain in right shoulder nonea ctive Primary hypertension acute Rotator cuff arthropathy of right shoulder acute Pain in right shoulder nonea ctive Change in bowel habits acute [facility] Work Phone: Evaluation note* Diagnosis Onset Date Resolution Status ST elevation myocardial infa rction (STEMI) of inferior wall acute [facility] Work Phone: evaluation note* Diagnosis Onset Date Resolution Status ASHD (arteriosclerotic heart disease) acute Hypercholesterolemia acute Lung nodule acute Medication side effects acut e Nicotine addiction acute Primary hypertension acute Shortness of breath acute [facility] Work Phone: evaluation note* Diagnosis Onset Date Resolution Status ASHD (arteriosclerotic heart disease) acute Hypercholesterolemia acute IBS (irritable bowel syndrome) acute Lung nodule acute Nicotine addiction acute Primary hypertension acute ASHD (arteriosclerotic heart disease) acute Hypercholesterolemia acute IBS (irritable bowel syndrome) acute Primary hypertension acute [facility] Work Phone: Evaluation note* Diagnosis Onset [...] bowel syndrome) acute Intermittent abdominal pain acute [facility] Work Phone: evaluation note* Diagnosis Coronary artery disease, unspecified vessel or lesion type, unspecified whether angina present, unspecified whether [place] or transplanted heart History of PTCA Postsurgical percutaneous transluminal coronary angioplasty status History of ST elevation myocardial infarction (STEMI) Shortness of breath Former smoker Personal history of tobacco use, presenting hazards to [facility] BMI 26.0-26.9,adult Hyperlipidemia, unspecified hyperlipidemia type documented in this encounter [facility] Work Phone: Evaluation note* Diagnosis Near syncope Fatigue, unspecified type History of PTCA Postsurgical percutaneous transluminal coronary angioplasty status Essential hypertension Unspecified essential hypertension History of ST elevation myocardial infarction (STEMI) Shortness of breath Coronary artery disease, unspecified vessel or lesion type, unspecified whether angina present, unspecified whether [place] or transplanted heart Former smoker Personal history of tobacco use, presenting hazards to health BMI 27.0-27.9,adult documented in this encounter [facility] Work Phone: History and physical note Author Reji Saenz [facility] October 27, 2023 6:21pm Note Date/Time October 27, 2023 5:5 1pm [facility] [address] [place] [address] Cardiology H&P Signed Patient: Genny Brewer MR#: [id number] : 1940 Acct:[id number] Age/Sex: 83 / F Adm Date: 4 Loc: Room: [facility] Attending Dr: Reji Saenz DO Copies to: DO Reji Soni DO~ Date of Service: 10/27/2023 Cardiology HPI History of Present Illness Chief complaint: Inferior STEMI HPI: Ms. Brewer is a 83 year old female admitted through the emergency room with new onset chest discomfort, ECG at 1710 revealed inferior STEMI as transmitted from ER to my electronic device. Case discussed with nurse practitioner; appropriateupstream antiplatelet and Antithrombin therapies administered under my direction, patient arrived in [employer] at 1756 and underwent primary PCI [...] critical care time were devoted to ER staff,[employer] staff, nursing staff, patient and family both pre and post procedurally. Review of Systems Review of Systems All other systems reviewed & are negative unless noted below or in HPI Constitutional Constitutional: Reports as per HPI Cardiovascular Cardiovascular: Reports as per HPI and Reports chest pain at rest [facility] Medical History Lung nodule CT: 1.7cm [...] x10E3/uL Lymph # (Auto) 2.2 (1.00-4.8) x10E3/uL [place] # (Auto) 0.7 (0.0-0.8) x10E3/uL Eos # [...] results cardiology: sinus rhythm EKG shows: bradycardia CT, pacemaker, normal Myocardial infarction: inferior CT (acute or recent) A&P - Cardiology (1) ST elevation myocardial infarction (STEMI) of inferior wall: Code(s): I21.19 - ST elevation (STEMI) myocardial infarction involving other coronary artery of inferior wall Plan Proceed with emergency cath and PCI Documented By: Reji Saenz DO 10/27/23 1750 Signed By: <Electronically signed by Reji Saenz DO> 10/27/23 1821 [facility] Work Phone: History general Narrative - [...] History CYSTOSCOPY Hospitalization History SEE SURGICAL HX [facility] Other Hospital Discharge instructions Additional Instructions We evaluated you for your shortness of breath. We discussed this is most likely due to your Brilinta. Please see your foreclosure specialist this afternoon at your previously scheduled appointment. Please follow close with your primary care doctor as well. Please return to the emergency department if you develop any worsening or concerning symptoms.[facility] Work Phone: Reason for referral (narrative)* Consultation (Routine) - Authorized Specialty Diagnoses / Procedures Referred By Jamel t Referred To Contact Cardiology Diagnoses Coronary artery disease, unspecified vessel or lesion type, unspecified whether angina present, unspecified whether [place] or transplanted heart Procedures Follow Up In Cardiology Indejrit Saenz DO [address] [place] [address] 2, [place] [phone] Inderjit Saenz DO [address] [place] [address] 2, [place] [phone] Referral ID Status Reason Start Date Expiration Date V isits Requested Visits Authorized [id number] Authorized 11/07/2023 11/06/2024 1 1 * Consultation (Routine) - Authorized Specialty Diagnoses / Procedures Referred By Jamel murphy Referred To Contact Cardiac Rehabilitation Diagnoses Coronary artery disease, unspecified vessel or lesion type, unspecified whether angina present, unspecified whether [place] or transplanted heart History of PTCA History of ST elevation myocardial infarction (STEMI) Inderjit Saenz DO [address] [place] [address] 2, [place] [phone] Referral ID Status Reason Start Date Expiration Date Visits Requested Visits Authorized [id number] Authorized Specialty Services Required 11/07/2023 11/06/2024 1 1 Scheduling Instructions [facility] Work Phone: Summary Purpose Family History No Family History Records Found Relationship Condition Age at Onset Recorded Date/T megan father Unknown family member Unknown Not Specified Unknown Relationship Condition Age at Onset Recorded Date/T megan father Unknown family member Unknown mother Unknown Advance Directives No Advanced Directives Records Found Advance Directive Response Recorded Date/ Time Advance Directives No April 3:31pm Advance Directive Response Recorded Date/ Time Advance Directives No July 18 024 2:08pm Chief Complaint and Reason for [...] IBS (irritable bowel syndrome) Intermittent abdominal pain Reason for Referral Specialty Diagnoses / Procedures Referred By Jamel murphy Referred To Contact Diagnoses Near syncope Fatigue, unspecified type Procedures ECG 12 Lead Inderjit Saenz DO 703 [facility] 2, [address] [place] [id number] Referral ID Status Reason Start Date Expiration Date V isits Requested Visits Authorized [id number] Authorized 12/20/2023 12/19/2024 1 1 Additional Source Comments Reason for Visit (unrecogniz ed section and content) Reason Comments Headache Hypertension Reason Comments T[place] on [place]27[place]23 [place] [facility] [place] Reason Comments Follow-up Dyspnea, near syncop e, med concerns Specialty Diagnoses / Procedures Referred By Contac t Referred To Contact Diagnoses Near syncope Fatigue, unspecified type Procedures ECG 12 Lead Inderjit Saenz DO [facility], [address] [place] [address] Referral ID Status Reason Start Date Expiration Date V isits Requested Visits Authorized [id number] Authorized 12/20/2023 12/19/2024 1 1 INFORMATION SOURCE (unrecogn ized section and content) DATE CREATED AUTHOR 05/23/2022 [facility] DATE CREATED AUTHOR AUTHOR'S ORGANIZ ATION 05/25/2022 [facility] DATE CREATED AUTHOR AUTHOR'S ORGANIZ ATION 04/25/2023 [facility] EPIC DATE CREATED AUTHOR AUTHOR'S ORGANIZ ATION 03/09/2024 [facility] DATE CREATED AUTHOR AUTHOR'S ORGANIZ ATION 04/15/2024 [facility] Director Of Strategy & Mobile Teams (unrecognized sec tion and content) Team Status: Active Member Role Status Dates Branden Du DO Primary Care Provider Active Team Status: Inactive Member Role Status Dates Doe Álvarez PA-C Emergency Provider Active Start: October 27, 2023 End: October 29, 2023 Branden Du DO Primary Care Provider Active Start: October 27, 2023 End: October 29, 2023 Reji Saenz DO Admit Provider, Att ending Provider Active Start: October 27, 2023 End: October 29, 2023 Sobia Okeefe MD Other Provider Active Start: October 27, 2023 End: October 29, 2023 Team Status: Active Member Role Status Dates Doe Álvarez PA-C Emergency Provider Active Start: October 28, 2023 Branden Du DO Primary Care Provider Active Start: October 28, 2023 Reji Saenz DO Admit Provider, Oth er Provider Active Start: October 28, 2023 Sobia Okeefe MD Attending Pr ovider, Other Provider Active Start: October 28, 2023 Team Status: Active Member Role Status Dates Doe Álvarez PA-C Emergency Provider Active Start: October 27, 2023 Branden Du DO Primary Care Provider Active Start: October 27, 2023 Reji Saenz DO Admit Provider, Att ending Provider Active Start: October 27, 2023 Team Status: Inactive Member Role Status Dates Branden Du , DO Attending Provider Active Sta rt: February 08, 2023 End: February 08, 2023 Team Status: Inactive Member Role Status Dates rBanden Du DO Attending Provider Active Sta rt: March 26, 2023 End: March 26, 2023 Team Status: Inactive Member Role Status Dates Branden Du , DO Attending Provider Active Sta rt: April [...] Provider Active Start: October 28, 2023 Reji Saenz DO Admit Provider, Oth er Provider Active [...] Active Member Role Status Dates Branden Du Primary Care Provider Active Start: November 05, 2023 TAMIR Avendano Attending Provider Active St art: November 05, 2023 Team Status: Inactive Member Role Status Dates Branden Du Primary Care Provide r, Attending Provider Active Start: November 12, 2023 End: November 12, 2023 Team Status: Inactive Member Role Status Dates Branden Du Primary Care Provide r, Attending Provider Active Start: December 04, 2023 End: December 04, 2023 Team Status: Inactive Member Role Status Dates Branden Du Primary Care Provider Active Start: December 12, 2023 End: December 12, 2023 Sylvester Monk MD Attending Provider Active S tart: December 12, 2023 End: December 12, 2023 Seater Grinder Relationship Specialty Start Date End Date Branden Du DO [address] [place] [address] PCP - General Internal Medicine 11/07/23 Maura Andres RN Care Catering Truck Operator 10/30/23 Seater Grinder Relationship Specialty Start Date End Date Branden Du DO [address] [place] [address] PCP - General Internal Medicine 11/07/23 Maura Anrdes RN Care Catering Truck Operator 10/30/23 Goals (unrecognized section and content) Goals [...] BE BASED ON THE PRIMARY CLINICAL RECORDS. [facility]. provides no warranty or guarantee of the accuracy or completeness of information in this document.
[2024-04-28 15:34] LABS: Thyroid Stimulating Hormone 2.025 uIU/mL (0.358-3.740)
[2024-04-29 04:07] LABS: Vitamin B12 811 pg/mL (232-1245)
[2024-04-30 19:07] LABS: Methylmalonic Acid, Serum 150 nmol/L (0-378)
== END 2024-04-28 14:46 | disposition home or self-care (01) ==
LOC: LAB 14:47
PROVIDERS: PCP Internal Medicine; Visit Provider Internal Medicine
DX: R53.83 Other fatigue (principal)
CPT/HCPCS: 36415; 82607; 83921; 84443; 85025

== ENCOUNTER 2024-05-19 14:02 | Outpatient (RCR) | payer MEDICARE, SELFPAY ==
--- NOTE | 2024-04-16 13:53 | CR1_ITS ---
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
--- NOTE | 2024-05-20 08:42 | CR1_ITS ---
[facility] Test Date: 2024-05-20 Pat Name: EVER BREWER Department: Room: - Gender: Female Manager Video Games: : 1940 Requested By: ERNESTO FRAGA Order Number: [id number] Reading MD: ERNESTO FRAGA Interpretive Statements Session Date: Electronically Signed On 05-20-2024 20:42:42 EST by ERNESTO FRAGA
== END 2024-07-09 08:58 | disposition home or self-care (01) ==
LOC: CR 14:02
PROVIDERS: PCP Internal Medicine; Visit Provider Internal Medicine Cardiovascular Disease
DX: I25.10 Atherosclerotic heart disease of native coronary artery without angina pectoris (principal); Z98.61 Coronary angioplasty status; I25.2 Old myocardial infarction
CPT/HCPCS: 93798

== ENCOUNTER 2024-08-05 16:12 | Outpatient (OUT) | payer MEDICARE, SELFPAY ==
[2024-08-05 16:55] LABS: Basophils Percent Auto 0.6 % (0.2-2.0); Eosinophils Absolute Auto 0.1 10^3/uL (0.0-0.7); Eosinophils Percent Auto 0.9 % (0.9-7.0); Hematocrit 39.6 % (36.0-48.0); Hemoglobin 13.3 g/dL (12.0-16.0); Immature Granulocytes Abs Auto 0.01 10^3/uL (0.00-0.03); Immature Granulocytes Pct Auto 0.2 % (0.0-0.5); Lymphocytes Absolute Auto 1.8 10^3/uL (1.2-3.8); Mean Corpuscular HGB Conc 33.6 g/dL (29.9-35.2); Mean Corpuscular Hemoglobin 32.5 pg (26.7-34.0); Mean Corpuscular Volume 96.8 fL (81.0-99.0); Mean Platelet Volume 9.8 fL (9.5-13.5); Monocytes Absolute Auto 0.6 10^3/uL (0.3-0.8); Monocytes Percent Auto 9.7 % (1.7-12.0); Neutrophils Absolute Auto 3.8 10^3/uL (1.4-6.5); Neutrophils Percent Auto 60.6 % (43.0-75.0); Platelet Count 265 10^3/uL (150-450); Red Blood Count 4.09 10^6/uL (4.20-5.40); Red Cell Distribution Width 13.9 % (11.0-15.0); White Blood Count 6.3 10^3/uL (4.0-11.0)
[2024-08-05 17:16] LABS: Anion Gap 12.4; BUN Creatinine Ratio 16.3; Calcium 9.7 mg/dL (8.5-10.1); Carbon Dioxide 24.2 mmol/L (21.0-32.0); Chloride 107 mmol/L (98-107); Estimated GFR (African America >60 (>=60 mL/min/1.73m^2); Estimated GFR (Non-African Ame 58 (>=60 mL/min/1.73m^2); Glucose 86 mg/dL (74-106); Potassium 3.6 mmol/L (3.5-5.1); Sodium 140 mmol/L (136-145); Thyroid Stimulating Hormone 1.563 uIU/mL (0.358-3.740)
== END 2024-08-05 16:13 | disposition home or self-care (01) ==
PROVIDERS: PCP Internal Medicine; Visit Provider Nurse Practitioner
DX: I25.10 Atherosclerotic heart disease of native coronary artery without angina pectoris (principal); I10 Essential (primary) hypertension; R53.83 Other fatigue
CPT/HCPCS: 36415; 80048; 84443; 85025

== ENCOUNTER 2024-09-08 13:06 | Outpatient (OUT) | payer MEDICARE, SELFPAY ==
--- NOTE | 2024-09-08 | CT_ITS ---
The [address] [address] Patient Name: EVER BREWER MRN: [id number] date: 1940 Sex: F Assigned Patient Location: CT Current Patient Location: [facility] Accession/Order Number: [id number] Exam Date: 09/08/2024 14:50 Report Date: 09/08/2024 14:56 At the request of: CHINO LEES Procedure: CT chest wo con CT CHEST WITHOUT IV CONTRAST: CLINICAL HISTORY: NON-SPECIFIC ABNORMAL FINDING OF LUNG FIELD, LUNG NODULE COMPARISON: CT chest 02/25/2024 07/30/2023 04/22/2023 04/18/2020 TECHNIQUE: Spiral images were obtained through the chest without IV contrast. This CT exam was performed using one or more following dose reduction techniques: Automated exposure control, adjustment of the mA and/or kV according to patient size, or use of iterative reconstruction technique. FINDINGS: Mediastinum:Thoracic aorta appears normal in caliber. Pulmonary trunk appears nondilated. No pleural effusion or lymphadenopathy. The esophagus is grossly unremarkable. Lungs:Emphysema. No consolidation pneumothorax or pleural effusion. Bibasilar scarring with what appears to be a nodule involving the right lower lobe measuring 2 cm which has slowly progressed in size since March 2023 Abd:No acute findings. 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 Stable hypodense lesion involving the right lobe of the liver dating back to March 2023 suggesting a benign process Soft tissues/Bones: Soft tissues demonstrate no acute process. Osseous structures demonstrate degenerative change. CT/CT chest wo con IMPRESSION: 2 cm nodule right lower lobe which has slowly progressed in size since March 2023. Finding is nonspecific. PET/CT should BE considered. Impression dictated by: Reginaldo Rivas Jr., D.O. 09/08/2024 2:56 PM Dictation Location: [place] [address] Electronically authenticated by: [id number] Y Date: 09/08/2024 14:56
--- OUTSIDE RECORDS SUMMARY | 2024-09-08 13:08 | XMS_ITS | Encounter Summary ---
Author Organization [facility] Address [address] [place] [address] Phone Care Team Providers Care Plc Controls Engineer Name Role Phone Maura Andres RN Unavailable Unavailable Branden Du DO Primary Care Provider [phone] Encounter Details Date Type Department Care Team (Late st Contact Info) Description 10/28/2023 Scanned Document [facility] [address] [place] [phone] Scanning, Generic Provider Social History Tobacco Use Types Packs/Day Years Used Date Smoking Tobacco: Never Assessed Comments Unknown Sex and Gender Information Value Date Recorded Sex Assigned at Not on file Legal Sex Female 4:05 AM EST Gender Identity Not on file Sexual Orientation Not on file documented as of this encounter Plan of Treatment Upcoming Encounters Date Type Department Care Team (Late st Contact Info) Description 01/27/2025 1:00 PM EST Office Visit [facility] [address] [phone] Jeannette Dave, VENETIAN BLIND TAPE CUTTER-ASSISTANT STORE MANAGER 703 [facility] 2, [address] [place], [place] [id number] documented as of this encounter Procedures Procedure Name Priority Date/Time Associated Diagnosis Comments ECHOCARDIOGRAM 10/28/2023 documented in this encounter Results * Echocardiogram (10/28/2023) Narrative 10/28/2023 Ordered by an unspecified provider. us Generic Provider Scanning CV ECHO PROCEDURES Fin al Result documented in this encounter Visit Diagnoses Not on filedocumented in this encounter Care Teams Plc Controls Engineer Relationship Specialty Start Date End Date Branden Du DO [address] [place] [address] PCP - General Internal Medicine 11/07/23 Maura Andres, panel laminatorBeam Carrier Hauler Pusher 10/30/23 01/28/24 documented as of this encounter
--- OUTSIDE RECORDS SUMMARY | 2024-09-08 13:08 | XMS_ITS | Encounter Summary ---
Author Organization [facility] Address [address] [place] [address] Phone Care Team Providers Care Finishing Machine Operator Automatic Name Role Phone Branden Du DO Primary Care Provider [phone] Encounter Details Date Type Department Care Team (Late st Contact Info) Description 05/26/2024 Scanned Document [facility] [address] [place] [phone] Scanning, Generic Provider Social History Tobacco Use Types Packs/Day Years Used Date Smoking Tobacco: Former Cigarettes Smokeless Tobacco: Never Alcohol Use Standard Drinks/Week Comments Yes 7 (1 standard drink = 0.6 oz pur e alcohol) Comments Unknown Sex and Gender Information Value Date Recorded Sex Assigned at Not on file Legal Sex Female 4:05 AM EST Gender Identity Not on file Sexual Orientation Not on file COVID-19 Exposure Response Date Recorded In the last 10 days, have yo u been in contact with someone who was confirmed or suspected to have Coronavirus/COVID-19? No / Unsure 05/27/2024 10:42 AM EST documented as of this encounter Plan of Treatment Upcoming Encounters Date Type Department Care Team (Late st Contact Info) Description 01/27/2025 1:00 PM EST Office Visit [facility] 703 [facility] [address] [place] [address] Jeannette Dave, RADARMAN-IMPORT/EXPORT FREIGHT FORWARDER 703 [facility] 2, [address] [place], [place] [phone] documented as of this encounter Visit Diagnoses Not on filedocumented in this encounter Additional Health Concerns Assessment Noted Time A fall risk assessment has been complete d for the patient 12/20/2023 10:41 AM EDT documented as of this encounter Care Teams Finishing Machine Operator Automatic Relationship Specialty Start Date End Date Branden Du DO [address] [place] [address] PCP - General Internal Medicine 11/07/23 documented as of this encounter
--- OUTSIDE RECORDS SUMMARY | 2024-09-08 13:08 | XMS_ITS | Clinical Summary ---
Author Organization [facility] Address [address] [place] [address] Phone Care Team Providers Care Blueprint Machine Operator Name Role Phone Branden Du Primary Care Provider [phone] Allergies Active Allergy Reactions Criticality Noted Date Comments Penicillins Unknown 11/07/2023 Medications multivit with minerals/lutein (MULTIVITAMIN 50 PLUS ORAL) Take 1 tablet by mouth once daily. 4 Active atorvastatin (Lipitor) 80 mg tablet Take 1 tablet (80 mg) by mouth once daily. 4 Active aspirin 81 mg EC tablet Take 1 tablet (81 mg) by mouth once daily. 4 Active nitroglycerin (Nitrostat) 0.[address] 1 tablet (0.4 mg) under the tongue every 5 minutes if needed for chest pain. 4 Active omeprazole (PriLOSEC) [address] capsule Take 1 capsule (40 mg) by mouth once daily in the morning. Take before meals. 3 Active losartan (Cozaar) 50 mg tabletIndications :History of ST elevation myocardial infarction (STEMI),Coronary artery disease, unspecified vessel or lesion type, unspecified whether angina present, unspecified whether galena or transplanted heart,History of PTCA Take 1 tablet (50 mg) by mouth 2 times a day. 180 tablet 3 4 11/20/19 25 Active amLODIPine (Norvasc) 5 mg tablet Take 1 tablet (5 mg) by mouth once daily. Active clopidogrel (Plavix) 75 mg tabletIndications :History of PTCA,History of ST elevation myocardial infarction (STEMI),Coronary artery disease, unspecified vessel or lesion type, unspecified whether angina present, unspecified whether galena or transplanted heart Take 1 tablet (75 mg) by mouth once daily. On the first day of starting the medication take 4 tablets by mouth. Then take 1 tablet by mouth each day after. 90 tablet 3 4 12/20/19 25 Active dicyclomine (Bentyl) 20 mg tablet Take 1 tablet (20 mg) by mouth every 12 hours. 5 Active metoprolol tartrate (Lopressor) 25 mg tabletIndications :Essential hypertension Take 0.5 tablets (12.5 mg) by mouth 2 times a day. 5 08/06/19 26 Active Active Problems Problem Noted Date Diagnosed Date Fatigue 12/20/2023 Assessment & Plan (08/06/2024 9:41 AM EDT): Presents to the office today with complaints of ongoing fatigability and having no energy . Symptoms started close to 4 weeks ago. Her prior angina symptom was a strange chest sensation and she denies any reoccurrence. Near syncope 12/20/2023 Essential hypertension 12/20/2023 Assessment & Plan (08/06/2024 9:40 AM EDT): Optimal in office CAD (coronary artery disease) 11/07/2023 Assessment & Plan (08/06/2024 9:40 AM EDT): Oct 26, 2024 Inferior STEMI pRCA PCI/Topock 4 x 18 mm mLAD mild intramyocardial bridging O/p Diag 75% small/moderate vessel OM none EF 60% History of ST elevation myocardial infarction (S SALOME) 11/07/2023 Shortness of breath 11/07/2023 Assessment & Plan (08/06/2024 9:41 AM EDT): She originally called into the office reporting shortness of breath. She reported shortness of breath with going up 1 flight of stairs this is probably ongoing for about 2 weeks but over the last 10 days the symptoms for the most part have abated. She was able to come in from the parking lot without concerns. Former smoker 11/07/2023 BMI 27.0-27.9,adult 11/07/2023 Assessment & Plan (08/06/2024 9:40 AM EDT): Reviewed the merits of healthy lifestyle choices on overall cardiovascular health. History of PTCA 11/07/2023 Hyperlipidemia 11/07/2023 Assessment & Plan (08/06/2024 9:40 AM EDT): High intensity statin Resolved Problems Problem Noted Date Diagnosed Date Resolved Date Family history of PTCA 11/07/202311/06 RCA occlusion (Multi) 11/07/20232023 Encounters Date Type Department Care Team Description 08/11/[address] [address] Lavonne Dwyer LPN Results 08/05/2024 2:00 PM EDT Office Visit [address] [address] Jeannette Dave, EXECUTIVE VICE PRESIDENT-LEASING DIRECTOR Hyperlipidemia, unspecified hyperlipidemia type (Primary Dx); Coronary artery disease, unspecified vessel or lesion type, unspecified whether angina present, unspecified whether galena or transplanted heart; History of ST elevation myocardial infarction (STEMI); Essential hypertension; BMI 27.0-27.9,adult; Fatigue, unspecified type; Shortness of breath 08/05/2024 Scanned Document [facility] [address] [place] [place] [phone] Scanning, Generic Provider 08/05/2024 Travel 07/13/[address] [address] Mariela Courtney LPN Shortness of Breath from Last 3 Months Immunizations Immunization Administration Dates Next Due Flu vaccine, trivalent, pres ervative free, HIGH-DOSE, age 65y+ (Fluzone) 12/04/2023,12/27/2015,12/16/2014 Influenza, Seasonal, Quadriv alent, Adjuvanted 12/27/2022,12/13/2021 Influenza, Split (incl. mary ann fied surface antigen) 01/12/2017 Influenza, Unspecified 12/04/2019,12/16/2018 Influenza, injectable, quadrivalent 01/15/2018 Influenza, trivalent, adjuvanted 12/14/2020 Moderna COVID-19 vaccine, 12 years and older (50mcg/0.5mL)(Spikevax) 12/05/2023 Moderna COVID-19 vaccine, bi valent, blue cap/grady label *Check age/dose* 12/27/2021 Novel [id number], preservative-free 03/08 Pfizer COVID-19 vaccine, 12 years and older, (30mcg/0.3mL) (Comirnaty) 12/27/2022 Pneumococcal conjugate vacci ne, 13-valent (PREVNAR 13) 01/28/2015 Pneumococcal conjugate vacci ne, 20-valent (PREVNAR 20) 08/06/2022 RESPIRATORY SYNCYTIAL VIRUS (RSV), ELIGIBLE PTS, 0.5 ML (ABRYSVO) 12/27/2022 Zoster vaccine, recombinant, adult (SHINGRIX) 05/06/2023,08/06/2022 Zoster, live 05/26/2010 Family History Medical History Relation Name Comments Heart disease Brother Heart disease Father Heart disease Mother Breast cancer Sister Rheum arthritis Sister Relation Name Status Comments Brother Father Mother Sister Social History Tobacco Use Types Packs/Day Years Used Date Smoking Tobacco: Former Cigarettes Smokeless Tobacco: Never Alcohol Use Standard Drinks/Week Comments Yes 7 (1 standard drink = 0.6 oz pur e alcohol) Comments Unknown Sex and Gender Information Value Date Recorded Sex Assigned at Not on file Legal Sex Female 4:05 AM EST Gender Identity Not on file Sexual Orientation Not on file Last Filed Vital Signs Vital Sign Reading Time Taken Comments Blood Pressure 122/70 08/05/2024 1:50 PM EDT Pulse 72 08/05/2024 1:50 PM EDT Temperature - - Respiratory Rate - - Oxygen Saturation - - Inhaled Oxygen Concentration - - Weight 65.8 kg (145 lb) 08/05/2024 1:50 PM EDT Height 154.9 cm (5' 1 ) 08/05/2024 1:50 PM EDT Body Mass Index 27.4 08/05/2024 1:50 PM EDT Plan of Treatment Upcoming Encounters Date Type Department Care Team (Late st Contact Info) Description 01/27/2025 1:00 PM EST Office Visit [facility] 703 [facility] [address] [place] [address] Jeannette Dave, EXECUTIVE VICE PRESIDENT-LEASING DIRECTOR [address] [place] [address] Health Maintenance Due Date Last Done Comments Bone Density Scan 1940 Lipid Panel 1940 Medicare Annual Wellness Visit (AWV) 1940 DTaP/Tdap/Td Vaccines (1 - Tdap) 1962 COVID-19 Vaccine (2023- season) 2024 12/05/2023, 12/27/2022, 12/27/2021, Additional history exists Pneumococcal Vaccine Completed 08/06/2022, 01/29/20 RSV High Risk: (Elderly (60+) or Population) Completed 12/27/2022 Zoster Vaccines Completed 05/06/2023, 07/23, 05/26/2010 Influenza Vaccine Completed 12/04/2023, , 12/13/2021, Additional history exists HIB Vaccines Aged Out No longer eligi ble based on patient's age to complete this topic HPV Vaccines Aged Out No longer eligi ble based on patient's age to complete this topic Hepatitis A Vaccines Aged Out No long er eligible based on patient's age to complete this topic Hepatitis B Vaccines Aged Out No long er eligible based on patient's age to complete this topic IPV Vaccines Aged Out No longer eligi ble based on patient's age to complete this topic Meningococcal Vaccine Aged Out No marianela tyra eligible based on patient's age to complete this topic Rotavirus Vaccines Aged Out No longer eligible based on patient's age to complete this topic Procedures Procedure Name Priority Date/Time Associated Diagnosis Comments OUTSIDE LAB SCAN 08/05/2024 OUTSIDE LAB SCAN 08/05/2024 from Last 3 Months Results * OUTSIDE LAB SCAN (08/05/2024) Only the most recent of2 resultswithin the time period is included. Narrative 08/05/2024 Ordered by an unspecified provider. us Generic Provider Scanning OUTSIDE SCAN Final Result from Last 3 Months Insurance MEDICARE PART A AND B Member Subscriber Plan / Payer (Ef fective 2005-Present) Name:Genny Barboza Member ID:[id number] Relation to Subscriber:Self Name:Genny Barboza Subscriber ID:[id number] Payer ID:Not on file Group ID:Not on file Type:Not on file Address: [address] MEDICARE PART A AND B Member Subscriber Plan / Payer (Ef fective 2005-Present) Name:Genny Barboza Member ID:[id number] Relation to Subscriber:Self Name:Genny Barboza Subscriber ID:[id number] Payer ID:Not on file Group ID:Not on file Type:Not on file Address: [address] Care Teams Blueprint Machine Operator Relationship Specialty Start Date End Date Branden Du DO [address] [place] [address] PCP - General Internal Medicine 11/07/23
--- OUTSIDE RECORDS SUMMARY | 2024-09-08 13:08 | XMS_ITS | Encounter Summary ---
Author Organization [facility] Address [address] [place] [address] Phone Care Team Providers Care Practice Management Consultant Name Role Phone Maura Andres RN Unavailable Unavailable Branden Du DO Primary Care Provider [phone] Encounter Details Date Type Department Care Team (Late st Contact Info) Description 10/29/[address] [facility] [address] [place] [phone] Scanning, Generic Provider Social History Tobacco Use [...] Description 01/27/2025 1:00 PM EST Office Visit [facility] 703 [facility] [address] [place] [phone] Jeannette Dave, WIRELESS ENGINEER-TEXTILE SCRAP SALVAGER 703 [facility] 2, [address] [place] [address] documented as of this encounter Visit Diagnoses Not on filedocumented in this encounter Care Teams Practice Management Consultant Relationship Specialty Start Date End Date Branden Du DO [address] [place] [address] PCP - General Internal Medicine 11/07/23 Maura Andres, paper bag making machinistPrincipal Accounts Clerk 10/30/23 01/28/24 documented as of this encounter
--- OUTSIDE RECORDS SUMMARY | 2024-09-08 13:08 | XMS_ITS | Encounter Summary ---
Author Organization [facility] Address [address] [place] [address] Phone Care Team Providers Care Informatics Manager Name Role Phone Branden Du DO Primary Care Provider [phone] Encounter Details Date Type Department Care Team (Late st Contact Info) Description 04/28/2024 Scanned Document [facility] [address] [place] [id number] Scanning, Generic Provider Social History Tobacco Use [...] Description 01/27/2025 1:00 PM EST Office Visit [facility] [address] [facility] [address] [place] [address] Jeannette Dave, UTILITY AIRCREWMAN-RESTORER [employer] TEXTILES [address] [facility] [address] [place], [place] [id number] documented as of this encounter Visit Diagnoses Not on filedocumented in this encounter Additional Health Concerns Assessment Noted Time A fall risk assessment has been complete d for the patient 12/20/2023 10:41 AM EDT documented as of this encounter Care Teams Informatics Manager Relationship Specialty Start Date End Date Branden Du DO [address] [place] [address] PCP - General Internal Medicine 11/07/23 documented as of this encounter
--- OUTSIDE RECORDS SUMMARY | 2024-09-08 13:08 | XMS_ITS | Encounter Summary ---
Author Organization [facility] Address [address] [place] [address] Phone Care Team Providers Care Cyber Ops Planner Name Role Phone Maura Andres RN Unavailable Unavailable Branden Du DO Primary Care Provider [phone] Encounter Details Date Type Department Care Team (Late st Contact Info) Description 11/05/2023 Scanned Document [facility] [address] [place] [phone] Scanning, Generic Provider Social History Tobacco Use [...] suspected to have Coronavirus/COVID-19? No / Unsure 11/07/2023 9:38 AM EDT documented as of this encounter Plan of Treatment Upcoming Encounters Date Type Department Care Team (Late st Contact Info) Description 01/27/2025 1:00 PM EST Office Visit [facility] [address] [facility] [address] [place] [address] Jeannette Dave, STUDENT SUPPORT SERVICES DIRECTOR-DIVINE HEALER [address] [facility] [address] [place] [address] documented as of this encounter Procedures Procedure Name Priority Date/Time Associated Diagnosis Comments OUTSIDE IMAGING SCAN 11/05/2023 documented in this encounter Results * OUTSIDE IMAGING SCAN (11/05/2023) Anatomical Region Laterality Modality Other Narrative 11/05/2023 Ordered by an unspecified provider. us Generic Provider Scanning OUTSIDE SCAN Final Result documented in this encounter Visit Diagnoses Not on filedocumented in this encounter Care Teams Cyber Ops Planner Relationship Specialty Start Date End Date Branden Du DO [address] [place] [address] PCP - General Internal Medicine 11/07/23 Maura Andres, benefits advisorCloth Grader 10/30/23 01/28/24 documented as of this encounter
--- OUTSIDE RECORDS SUMMARY | 2024-09-08 13:08 | XMS_ITS | Clinical Summary ---
Author Organization [facility] Address [address] [place] [address] Care Team Providers Care Chainstitch Hemmer Name Role Phone FlorianBranden Primary Care Provider [phone] Allergies No known active allergies Medications amLODIPine (Norvasc) 5 MG tablet 04/23/2023 Active famotidine (Pepcid) 40 MG tablet Take 40 mg by mouth at bedtime 03/14/2023 Active hyoscyamine (Levsin) 0.[address] ONE TABLET UNDER TONGUE AND ALLOW TO DISSOLVE BEFORE MEALS AND AT BEDTIME NEEDED FOR 10 DAYS 04/01/2023 Active losartan (Cozaar) 50 MG tablet Take 50 mg by mouth in the morning and 50 mg before bedtime. 03/14/2023 Active omeprazole (PriLOSEC) [address] capsule TAKE ONE CAPSULE BY MOUTH ONCE DAILY IN THE MORNING, 30 MINUTES BEFORE MEAL 02/08/2023 Active Social History Tobacco Use Types Packs/Day Years Used Date Smoking Tobacco: Former Cigarettes Smokeless Tobacco: Never Tobacco Cessation:Counseling Given: Not Answered Comments Unknown Sex and Gender Information Value Date Recorded Sex Assigned at Not on file Legal Sex Female 8:35 PM EDT Gender Identity Not on file Sexual Orientation Not on file Plan of Treatment Health Maintenance Due Date Last Done Comments Influenza Vaccine (Season Ended) 2024 12/27/2022, 12/13/2021, 12/14/2020, Additional history exists Pneumococcal Vaccine: 65+ Years Completed 3, 01/28/2015 Insurance [employer] Care Teams Chainstitch Hemmer Relationship Specialty Start Date End Date Brnaden Du DO PCP - General Internal Medicine 04/24/23
--- OUTSIDE RECORDS SUMMARY | 2024-09-08 13:08 | XMS_ITS | Encounter Summary ---
Author Organization [facility] Address [address] [place] [address] Phone Care Team Providers Care Bacteriology Professor Name Role Phone Branden Du DO Primary Care Provider [phone] Encounter Details Date Type Department Care Team (Late st Contact Info) Description 08/05/2024 Scanned Document [facility] [address] [place] [phone] Scanning, Generic Provider Social History Tobacco Use [...] suspected to have Coronavirus/COVID-19? No / Unsure 08/05/2024 1:43 PM EDT documented as of this encounter Plan of Treatment Upcoming Encounters Date Type Department Care Team (Late st Contact Info) Description 01/27/2025 1:00 PM EST Office Visit [facility] [address] [facility] [address] [place] [address] Jeannette Dave, FREEZING MACHINE OPERATOR-X RAY EQUIPMENT SERVICER [address] [facility] [address] [place], [place] [id number] documented as of this encounter Procedures Procedure Name Priority Date/Time Associated Diagnosis Comments OUTSIDE LAB SCAN 08/05/2024 OUTSIDE LAB SCAN 08/05/2024 documented in this encounter Results * OUTSIDE LAB SCAN (08/05/2024) Narrative 08/05/2024 Ordered by an unspecified provider. us Generic Provider Scanning OUTSIDE SCAN Final Result * OUTSIDE LAB SCAN (08/05/2024) Narrative 08/05/2024 Ordered by an unspecified provider. us Generic Provider Scanning OUTSIDE SCAN Final Result documented in this encounter Visit Diagnoses Not on filedocumented in this encounter Additional Health Concerns Assessment Noted Time A fall risk assessment has been complete d for the patient 08/05/2024 1:51 PM EDT documented as of this encounter Care Teams Bacteriology Professor Relationship Specialty Start Date End Date Branden Du DO [address] [place] [address] PCP - General Internal Medicine 11/07/23 documented as of this encounter
== END 2024-09-08 13:07 | disposition home or self-care (01) ==
LOC: CT 13:06
PROVIDERS: PCP Internal Medicine; Visit Provider Internal Medicine Critical Care Medicine
DX: R91.8 Other nonspecific abnormal finding of lung field (principal); R91.1 Solitary pulmonary nodule
CPT/HCPCS: 71250

== ENCOUNTER 2024-09-08 13:12 | Outpatient (OUT) | payer MEDICARE, SELFPAY ==
--- NOTE | 2024-09-08 | XR_ITS ---
The [address] [address] Patient Name: EVER BREWER MRN: [id number] date: 1940 Sex: F Assigned Patient Location: [facility] Current Patient Location: [facility] Accession/Order Number: [id number] Exam Date: 09/08/2024 14:49 Report Date: 09/08/2024 14:50 At the request of: ERNESTO FRAGA DO Procedure: XR cervical spine w flex/ext CERVICAL SPINE 8 views: CLINICAL HISTORY: NECK PAIN COMPARISON: None FINDINGS: Vertebral body heights appear maintained. Diffuse facet joint degenerative changes with 3 mm of anterior subluxation of C4 on C5. Moderate disc space narrowing C3-4. No significant bony neural foraminal narrowing. No prevertebral soft tissue swelling. No pathological motion on flexion or extension views. XR/XR cervical spine w flex/ext IMPRESSION: PREDOMINANTLY FACET JOINT DEGENERATIVE CHANGES WITH 3 MM OF ANTERIOR SUBLUXATION OF C4 ON C5 AND MODERATE DISC SPACE NARROWING C3-4. Impression dictated by: Reginaldo Rivas Jr., D.O. 09/08/2024 2:50 PM Dictation Location: [place] [address] Electronically authenticated by: [id number] Y Date: 09/08/2024 14:50
== END 2024-09-08 13:13 | disposition home or self-care (01) ==
LOC: RAD 13:12
PROVIDERS: PCP Internal Medicine; Visit Provider Internal Medicine
DX: R91.8 Other nonspecific abnormal finding of lung field (principal); R91.1 Solitary pulmonary nodule; M54.2 Cervicalgia; S13.150A Subluxation of C4/C5 cervical vertebrae, initial encounter
CPT/HCPCS: 71250; 72052

== ENCOUNTER 2024-10-03 15:20 | Emergency (ER) | payer MEDICARE, SELFPAY ==
--- OUTSIDE RECORDS SUMMARY | 2024-09-29 09:40 | XMS_ITS | Continuity of Care Document ---
Author Organization [facility] Address [address] [place] [address] Phone Care Team Providers Care Metal Machine Operator Name Role Phone Branden Du DO Primary Care Provider [phone] Sylvester Monk MD Attending Provider Jeannette Dave APRN Attending Provider Branden Du DO Attending Provider Sobia Okeefe MD Attending Provider Care Teams Patient Care Team Team Status: Active Member Role Status Dates Branden Du DO Primary Care Provider Active Visit Care Team Team Status: Inactive Member Role Status Dates Branden Du DO Primary Care Provider Active Start: July 20, 2024 End: July 20, 2024 Sylvester Monk MD Attending Provider Active S tart: July 20, 2024 End: July 20, 2024 Visit Care Team Team Status: Active Member Role Status Dates Branden Du DO Primary Care Provider Active Start: August 05, 2024 Jeannette Dave APRN Attending Provider Active S tart: August 05, 2024 Visit Care Team Team Status: Inactive Member Role Status Dates Branden Du DO Primary Care Provider Active Start: August 19, 2024 End: August 19, 2024 Branden Du DO Attending Provider Active Sta rt: August 19, 2024 End: August 19, 2024 Patient Care Team Team Status: Inactive Member Role Status Dates Branden Ball , DO Primary Care Provider Active Start: September 29, 2024 End: September 29, 2024 Sobia Okeefe MD Attending Provider Active Start: September 29, 2024 End: September 29, 2024 Chief Complaint and Reason for Visit Chief Complaint Admit Date 3 month f/u/diarrhea July 20, 2024 10 :57am HIGH RISK-rash on scalp/neck pain August 192024 1:30pm CEA: 6 mo f/u Abn CT September 29, 2024 1:13 pm Reason for Visit Admit Date Diarrhea July 20, 2024 10: 57am Gastroesophageal reflux dise ase with esophagitis without hemorrhage July 20, 2024 10:57am History of colon cancer July 20, 2024 10:57am IBS (irritable bowel syndrome) June 10:57am Intermittent abdominal pain July 20, 2024 10:57am Cervical spondylosis August 19, 2024 1:30 pm Neck pain August 19, 2024 1:30p m Seborrheic dermatitis August 19, 2024 1:3 0pm Allergies, Adverse Reactions, Alerts Allergen Type Severity Reaction Last Updated Verified Status Comments Penicillins Allergy Unknown Unknown Reaction September 29, 2024 1:01pm Yes Active Onset Date: 09/07/2013 Social History Smoking Status Status Start Date End Date Date of Observa tion Ex-smoker (finding) July 9:23am Observation Status Observation Response Date of Response Legal Sex Female (finding) Sex Assigned At Female 1940 Family History Relationship Condition Age at Onset Recorded Date/T megan father Unknown family member Unknown mother Unknown Problems Active Problems Medical Problem Onset Date Status Comments Change in bowel habits Unknown Active Abnormal CT scan of lung Unknown Active Rotator cuff arthropathy of right shoulder Unknown Active Medicare annual wellness vis it, subsequent Unknown Active Gastroesophageal reflux dise ase with esophagitis without hemorrhage Unknown Active Nicotine addiction Unknown Active History of colon resection Unknown Active c olon cancer Screening mammogram for breast cancer Unknown Act leyla History of colon cancer Unknown Active Seborrheic dermatitis Unknown Active Diarrhea Unknown Active Hypercholesterolemia Unknown Active Intermittent abdominal pain Unknown Active Lung nodule Unknown Active CT: 1.7cm nodul e RLL - ET/CT: no FDG avid nodules - 04/2023,CT: 1.9cm nodule RLL - 06/2023,CT: 2.6cm RLL mass - 02/2024,CT: 2cm RLL nodule - 08/2024 Change in stool caliber Unknown Active Cervical spondylosis Unknown Active Primary hypertension Unknown Active Lung mass Unknown Active Fecal urgency Unknown Active Neck pain Unknown Active IBS (irritable bowel syndrome) Unknown Active Lumbar spondylosis Unknown Active ASHD (arteriosclerotic heart disease) Unknown Act leyla Inactive/Resolved Problems Medical Problem Onset Date Status Comments Medication side effects Unknown Resolved Shortness of breath Unknown Resolved ST elevation myocardial infa rction (STEMI) of inferior wall Unknown Resolved Medications Medication Status Dose Units Route Directions Qty Days St art Date Stop Date End Date Instructions Adherence Sod Picosulf-Ma g Ox-Citric Ac (Clenpiq) 10 mg-3.5 gram- 12 gram/175 mL solution Discont inued 175 ML PO Daily 350 0 July 05, 2023 8:42am 2023 9:40p m take first dose at 3PM evening before colonoscopy; 2nd dose at 9pm the night before colonoscopy Omeprazole 40 mg capsule,del ayed release(DR/ EC) Discont inued 0 .ROUTE .COMPLEX October 07, 2023 12:27p m [facility] 2023 5:26a m TAKE ONE CAPSULE BY MOUTH ONCE DAILY IN THE MORNING, 30 MINUTES BEFORE MEAL Metoprolol Tartrate 50 mg tablet Discont inued 50 MG PO Twice daily 180 90 2023 3:23pm Dece 2023 11:21 am Losartan 50 mg tablet Active 50 MG PO Twice daily 2023 6:04pm Complies with drug therapy Amlodipine 5 mg tablet Discont inued 5 MG PO Daily 2023 12:00a m [facility] 2023 12:35 pm Amlodipine 5 mg tablet Discont inued 0 .ROUTE .COMPLEX 2023 12:35p m August 06, 2024 1:26p m TAKE ONE TABLET BY MOUTH DAILY Scopolamine Base 1 mg over 3 days patch 3 day Discont inued 1 PATCH TRANSD ERML Every 72 hours [facility] 1:[facility] July 20, 2024 11:17 am Omeprazole 40 mg capsule,del ayed release(DR/ EC) Active 40 MG PO Daily as needed for pain 90 90 Januar y 2024 3:07pm Complies with drug therapy Metoprolol Tartrate 25 mg tablet Active 12.5 MG PO Twice daily August 06, 2024 1:25pm Complies with drug therapy Amlodipine 5 mg tablet Active 0 .ROUTE .COMPLEX August 06, 2024 1:26pm TAKE ONE TABLET BY MOUTH DAILY Complies with drug therapy Amlodipine 5 mg tablet Discont inued 5 MG PO Daily October 27, 2023 12:00a m [facility] 2023 3:49p m Omeprazole 40 mg capsule,del ayed release(DR/ EC) Discont inued 40 MG PO Daily as needed for pain October 28, 2023 12:00a m [facility] 2024 3:07p m Atorvastati n 80 mg Tablet Active 80 MG PO Every evening October 29, 2023 12:00a m Complies with drug therapy Aspirin 81 mg Tablet,Lachelle yed Release (Dr/Ec) Active 81 MG PO Daily 90 October 29, 2023 12:00a m Complies with drug therapy Nitroglycer in 0.4 mg Tablet, Sublingual Active 0.4 MG SUBLIN GUAL Q5M as needed for Chest Pain October 29, 2023 12:00a m Complies with drug therapy Metoprolol Tartrate 25 mg Tablet Discont inued 25 MG PO Twice daily 180 October 29, 2023 12:00a m Septe mber 2023 3:23p m Ticagrelor (Brilinta) 90 mg Tablet Discont inued 90 MG PO Twice daily 180 October 29, 2023 12:00a m [facility] 2023 5:37p m Losartan 25 mg Tablet Discont inued 25 MG PO Every morning October 29, 2023 12:00a m [facility] 2023 12:35 pm Omeprazole 40 mg capsule,del ayed release(DR/ EC) Discont inued 40 MG PO Daily as needed for acid reflux June 20, 2023 12:00a m October 07, 2023 12:27 pm Multivitami n tablet Active 1 TAB PO Daily June 20, 2023 12:00a m Complies with drug therapy Sod Picosulf-Ma g Ox-Citric Ac (Clenpiq) 10 mg-3.5 gram- 12 gram/175 mL solution Discont inued 175 ML PO Daily 350 0 June 20, 2023 12:00a m July 05, 2023 8:43a m take first dose at 3PM evening before colonoscopy; 2nd dose at 9pm the night before colonoscopy Losartan 50 mg tablet Discont inued 100 MG PO Twice daily [facility] 2023 1:23pm [facility] 2023 6:05p m Dicyclomine 10 mg capsule Discont inued 10 MG PO Twice daily 60 30 [place] [facility] 2023 12:00a m [facility] 2023 2:18p m Losartan 50 mg tablet Discont inued 50 MG PO Twice daily 60 30 [place] 2023 7:48pm [facility] 2023 1:32p m Dicyclomine 20 mg tablet Discont inued 20 MG PO Twice daily 60 30 [facility] 2023 1:00am July 20, 2024 11:24 am Clopidogrel (Plavix) 75 mg tablet Active 75 MG PO Daily [facility] 2023 1:00am Complies with drug therapy Amlodipine 5 mg tablet Discont inued 5 MG PO Daily 2023 1:00am June 20, 2023 2:35p m Famotidine 40 mg tablet Discont inued 40 MG PO Daily at bedtime [facility] 2023 1:00am June 20, 2023 2:35p m Hyoscyamine Sulfate (Levsin/Sl) 0.125 mg tablet, sublingual Discont inued 0.125 MG SUBLIN GUAL .COMPLEX [facility] 2023 1:00am July 24, 2023 1:19p m 0.125 mg sublingually before meals and at bedtime Losartan 50 mg tablet Discont inued 50 MG PO Daily 2023 1:00am [facility] 2023 3:49p m Meloxicam 15 mg tablet Discont inued 15 MG PO Daily [facility] 2023 1:00am June 20, 2023 2:35p m Ondansetron 4 mg tablet,disi ntegrating Discont inued 4 MG PO Every 6 hours as needed [facility] 2023 1:00am June 20, 2023 2:35p m Losartan 25 mg tablet Discont inued 25 MG PO Twice daily 60 November 12, 2023 12:19p m [facility] 7:48p m Hyoscyamine Sulfate 0.125 mg tablet, sublingual Discont inued 0.125 MG SUBLIN GUAL 2-4 TIMES PER DAY as needed for abdominal pain, diarrhea November 12, 2023 12:00a m [facility] 2023 1:31p m Amlodipine 5 mg tablet Discont inued 5 MG PO Daily 30 November 12, 2023 12:00a m [facility] 2023 1:30p m Metoprolol Tartrate 25 mg tablet Discont inued 25 MG PO Twice daily [facility] 2023 1:00am August 06, 2024 1:26p m Dicyclomine 20 mg tablet Active 20 MG PO Twice daily 180 90 July 20, 2024 11:23a m Complies with drug therapy Ketoconazol e 2 % shampoo Active 1 APPLIC TOPICA L 3 Times a week 120 August 19, 2024 12:00a m Complies with drug therapy Clobetasol 0.05 % solution Active 1 APPLIC TOPICA L Daily at bedtime 25 August 19, 2024 12:00a m Complies with drug therapy Immunizations Immunization Event Date Not Given Reason Dose Number Coding Advisor Lot Number Vaccine Information Statement (VIS) Detail Administration Location Fluzone TIV High-Dose [id number]+ December 04, 2023 [id number] [address] [facility] influenza, unspecified formulation December 27, 2015 influenza, unspecified formulation January 12, 2017 influenza, unspecified formulation January 15, 2018 influenza, unspecified formulation December 16, 2018 influenza, unspecified formulation December 04, 2019 influenza, unspecified formulation December 14, 2020 influenza, unspecified formulation December 13, 2021 Pneumococcal Conjugate Vaccine, 13 valent January 28, 2015 Medical Equipment Device Date Implanted Device Details CL STENT TOMER FRONTIER 4.0 X 18 October 27, 2023 Femoral artery closure plug/patch, synthetic polymer October 27, 2023 KYM: [id number] Issuing Agency: [employer] Device Id: [id number] Lot Number: [id number] Relevant Diagnostic Tests and/or Laboratory Data Laboratory Results Test Collection Date/Time Result Date/Time Result Interpretation Reference Range Result Comment Performing Site Thyroid Stimulating Hormone 3rd Gen August 05, 2024 4:36pm August 05, 2024 4:36pm 1.563 u[iU]/m L 0.358-3.74 0 Anion Gap August 05, 2024 4:36pm August 05, 2024 4:36pm 12.4 Basophils # (Auto) August 05, 2024 4:36pm August 05, 2024 4:36pm 0.0 10 3/uL 0.0-0.1 BUN/Creatinin e Ratio August 05, 2024 4:36pm August 05, 2024 4:36pm 16.3 Basophils (%) (Auto) August 05, 2024 4:36pm August 05, 2024 4:36pm 0.6 % 0.2-2.0 Blood Urea Nitrogen August 05, 2024 4:36pm August 05, 2024 4:36pm 15.0 mg/dL 7.0-18.0 Eosinophils # (Auto) August 05, 2024 4:36pm August 05, 2024 4:36pm 0.1 10 3/uL 0.0-0.7 Calcium Level August 05, 2024 4:36pm August 05, 2024 4:36pm 9.7 mg/dL 8.5-10.1 Eosinophils (%) (Auto) August 05, 2024 4:36pm August 05, 2024 4:36pm 0.9 % 0.9-7.0 Chloride Level August 05, 2024 4:36pm August 05, 2024 4:36pm 107 mmol/L 98-107 Hematocrit August 05, 2024 4:36pm August 05, 2024 4:36pm 39.6 % 36.0-48.0 Carbon Dioxide Level August 05, 2024 4:36pm August 05, 2024 4:36pm 24.2 mmol/L 21.0-32.0 Hemoglobin August 05, 2024 4:36pm August 05, 2024 4:36pm 13.3 g/dL 12.0-16.0 Creatinine August 05, 2024 4:36pm August 05, 2024 4:36pm 0.92 mg/dL 0.55-1.02 Immature Granulocyte # (Auto) August 05, 2024 4:36pm August 05, 2024 4:36pm 0.01 10 3/uL 0.00-0.03 Estimated GFR () August 05, 2024 4:36pm August 05, 2024 4:36pm >60 >=60 mL/min/1.7 3m 2 Immature Granulocyte % (Auto) August 05, 2024 4:36pm August 05, 2024 4:36pm 0.2 % 0.0-0.5 Estimated GFR (Non- August 05, 2024 4:36pm August 05, 2024 4:36pm 58 Below low normal >=60 mL/min/1.7 3m 2 Lymphocytes # (Auto) August 05, 2024 4:36pm August 05, 2024 4:36pm 1.8 10 3/uL 1.2-3.8 Glucose Level August 05, 2024 4:36pm August 05, 2024 4:36pm 86 mg/dL 74-106 Lymphocytes (%) (Auto) August 05, 2024 4:36pm August 05, 2024 4:36pm 28.0 % 20.5-60.0 Potassium Level August 05, 2024 4:36pm August 05, 2024 4:36pm 3.6 mmol/L 3.5-5.1 Mean Corpuscular Hemoglobin August 05, 2024 4:36pm August 05, 2024 4:36pm 32.5 pg 26.7-34.0 Sodium Level August 05, 2024 4:36pm August 05, 2024 4:36pm 140 mmol/L 136-145 Mean Corpuscular Hemoglobin Concent August 05, 2024 4:36pm August 05, 2024 4:36pm 33.6 g/dL 29.9-35.2 Mean Corpuscular Volume August 05, 2024 4:36pm August 05, 2024 4:36pm 96.8 fL 81.0-99.0 Monocytes # (Auto) August 05, 2024 4:36pm August 05, 2024 4:36pm 0.6 10 3/uL 0.3-0.8 Monocytes (%) (Auto) August 05, 2024 4:36pm August 05, 2024 4:36pm 9.7 % 1.7-12.0 Mean Platelet Volume August 05, 2024 4:36pm August 05, 2024 4:36pm 9.8 fL 9.5-13.5 Neutrophils # (Auto) August 05, 2024 4:36pm August 05, 2024 4:36pm 3.8 10 3/uL 1.4-6.5 Neutrophils (%) (Auto) August 05, 2024 4:36pm August 05, 2024 4:36pm 60.6 % 43.0-75.0 Platelet Count August 05, 2024 4:36pm August 05, 2024 4:36pm 265 10 3/uL 150-450 Red Blood Count August 05, 2024 4:36pm August 05, 2024 4:36pm 4.09 10 6/uL Below low normal 4.20-5.40 Red Cell Distribution Width August 05, 2024 4:36pm August 05, 2024 4:36pm 13.9 % 11.0-15.0 Corrected White Blood Count August 05, 2024 4:36pm August 05, 2024 4:36pm 6.3 10 3/uL 4.0-11.0 Vital Signs Vital Reading Result Reference Range Collection Date/Time Height 61 [in_i] July 20 11:18am Weight 63.50 kg July 20 11:18am Heart Rate 63 /min 60-100 July 20 11:18am BP Systolic 138 mm[Hg] 100-140 July 20 11:18am BP Diastolic 86 mm[Hg] 60-100 July 20 11:18am BMI (Body Mass Index) 26.4 kg/m2 July 20, 2024 11:18am Height 61 [in_i] August 19, 2024 1:31pm Weight 64.12 kg August 19, 2024 1:31pm Heart Rate 84 /min 60-100 August 19, 2024 1:31pm Respiratory rate 12 /min 12-24 August 19, 2 025 1:31pm Oxygen saturation by Pulse oximetry 99 % 95-100 August 19, 2024 1:31p m BP Systolic 127 mm[Hg] 100-140 August 19, 2024 1:31pm BP Diastolic 80 mm[Hg] 60-100 August 19, 2024 1:31pm BMI (Body Mass Index) 26.6 kg/m2 August 192024 1:31pm Height 61 [in_i] September 29, 2024 1:15pm Weight 63.50 kg September 29, 2024 1:15pm Heart Rate 60 /min 60-100 September 29, 2024 1:15pm Respiratory rate 20 /min 12-24 September 29, 2 025 1:15pm Oxygen saturation by Pulse oximetry 98 % 95-100 September 29, 2024 1:15p m BP Systolic 152 mm[Hg] 100-140 September 29, 2024 1:18pm BP Diastolic 88 mm[Hg] 60-100 September 29, 2024 1:18pm BMI (Body Mass Index) 26.4 kg/m2 September 292024 1:15pm Advance Directives Advance Directive Response Recorded Date/ Time Advance Directives No August 18 9:23am Insurance Providers Guarantor Genny Barboza Address [address] [place] [phone] Contact Info. Home Phone: Payer Policy Id Subscriber's Name Subscriber Id Effectiv e Date Expiration Date Medicare [id number] Genny Barboza [id number] [facility] Health Claims [id number] Genny Barboza [id number] Encounters Encounter Location(s) Arrival/Admit Date Discharge/Depart Date Provider(s) Departed Physician/Prov ider Office Visit -[facility] July 20, 2024 10:57am July 20, 2024 11:40am Sylvester Monk MD Non-patient / Non-visit -[employer] August 05, 2024 4:36pm Jeannette Dave APRN Departed Physician/Prov ider Office Visit -[facility] August 19, 2024 1:30pm August 19, 2024 2:05pm Branden Du DO Departed Physician/Prov ider Office Visit -[facility] September 29, 2024 1:13pm September 29, 2024 1:39pm Sobia Okeefe MD Recent Diagnosis Onset Date Admit Date Diarrhea Unknown July 20, 2024 10:57am Gastroesophageal reflux dise ase with esophagitis without hemorrhage Unknown July 20, 2024 10:57am History of colon cancer Unknown July 202024 10:57am IBS (irritable bowel syndrome) Unknown A pril 2024 10:57am Intermittent abdominal pain Unknown Apri l 2024 10:57am Cervical spondylosis Unknown August 19, 2 025 1:30pm Neck pain Unknown August 19, 2024 1 :30pm Seborrheic dermatitis Unknown August 19, 2024 1:30pm Assessments Diagnosis Onset Date Resolution Status Admit Date Diarrhea acute July 20 10:57am Gastroesophageal reflux dise ase with esophagitis without hemorrhage acute July 20, 2024 10:57am History of colon cancer acute A pril 2024 10:57am IBS (irritable bowel syndrome) acute July 20, 2024 10:57am Intermittent abdominal pain acute July 20, 2024 10:57am Cervical spondylosis acute August 19, 2024 1:30pm Neck pain acute August 19, 2024 1:30pm Seborrheic dermatitis acute August 19, 2024 1:30pm Plan of Treatment Author Sylvester Monk [facility] Authored July 20, 2024 11: 25am Continue omeprazole 40 mg da aga for GERD. Continue her dicyclomine 20 mg twice daily scheduled, can take an additional dose as needed for important events. Follow-up with me yearly. Author Branden Du [facility] Authored August 19, 2024 10:38 pm Instructed to use Nizoral sh mp three times weekly for next 8 wks then as needed Instructed to use Clobetasol josy q HS Dermatology if no improvement ROM exercises, ice/heat and Tylenol Instructed to try Lidocaine crm or patches XR order printed Denies radicular pain, N/T or weakness. ROM exercises, ice/heat and Tylenol Instructed to try Lidocaine crm or patches PT if no improvement Future Tests Future scheduled test information is unavailable Pending Tests Test Name Ordered Date Scheduled Date CT chest wo con September 29, 2024 1:35pm 3 Months XR cervical spine w flex/ext August 19, 2024 1:56 pm Future Visits Future appointment information is unavailable Referrals to Other Providers Referral information is unavailable Future Procedures Future procedure information is unavailable Future Medications Future medication information is unavailable Patient Instructions Patient instructions are unavailable
--- OUTSIDE RECORDS SUMMARY | 2024-09-29 14:30 | XMS_ITS | Encounter Summary ---
Author Organization [facility] Address [address] [place] [address] Phone Care Team Providers Care Batch Mixer Name Role Phone Branden Du Primary Care Provider [phone] Reason for Referral * Consultation (Routine) - Authorized Specialty Diagnoses / Procedures Referred By Jamel murphy Referred To Contact Cardiology Diagnoses Essential hypertension Procedures Follow Up In Cardiology Jeannette Dave APRN-CNP 703 [facility] 2, [address] [address] Phone: tel: fax: Referral ID Status Reason Start Date Expiration Date V isits Requested Visits Authorized [id number] Authorized 09/29/2024 09/29/2025 1 1 Reason for Visit * Reason Comments Follow-up 1 months Coronary ar shira disease, unspecified vessel or lesion type, unspecified whether angina present, unspecified whether otoe-[place] or transplanted heart * Consultation (Routine) - Authorized Specialty Diagnoses / Procedures Referred By Jamel murphy Referred To Contact Cardiology Diagnoses Fatigue, unspecified type Procedures Follow Up In Cardiology Jeannette Dave APRN-CNP 703 [facility] 2, [address] [place] [address] Phone: tel: fax: Referral ID Status Reason Start Date Expiration Date V isits Requested Visits Authorized [id number] Authorized 08/05/2024 08/05/2025 1 1 Encounter Details Date Type Department Care Team (Late st Contact Info) Description 09/29/2024 2:30 PM EDT Office Visit [facility] [address] [address] Jeannette Dave APRN-CNP 701 [facility] 2, [address] [place], [place] [id number] Essential hypertension (Primary Dx); Fatigue, unspecified type; BMI 26.0-26.9,adult Social History Tobacco Use Types Packs/Day Years Used Date Smoking Tobacco: Former Cigarettes Smokeless Tobacco: Never Tobacco Cessation:Counseling Given: Not Answered Alcohol Use Standard Drinks/Week Comments Yes 7 (1 standard drink = 0.6 oz pur e alcohol) Comments Unknown Sex and Gender Information Value Date Recorded Sex Assigned at Not on file Legal Sex Female 4:05 AM EST Gender Identity Not on file Sexual Orientation Not on file documented as of this encounter Last Filed Vital Signs Vital Sign Reading Time Taken Comments Blood Pressure 140/80 09/29/2024 2:31 PM EDT Pulse 64 09/29/2024 2:31 PM EDT Temperature - - Respiratory Rate - - Oxygen Saturation - - Inhaled Oxygen Concentration - - Weight 64.1 kg (141 lb 6.4 oz) 09/29/2024 2:31 P M EDT Height 154.9 cm (5' 1 ) 09/29/2024 2:31 PM EDT Body Mass Index 26.72 09/29/2024 2:31 PM EDT documented in this encounter Patient Instructions * Patient Instructions* ROLAND Becerril - 09/29/2024 2:30 PM EDT Please bring all medicines, vitamins, and herbal supplements with you when you come to the office. Prescriptions will not be filled unless you are compliant with your follow up appointments or have a follow up appointment scheduled as per instruction of your physician. Refills should be requested at the time of your visit. PLAN: Through informed decision making process incorporating patients unique circumstances, the followingtreatment plan will be initiated: 1. Prescription drug management of cardiovascular medication for efficacy, adherence to treatment, side effect assessment and polypharmacy. Current treatment clinically warranted and to continue withfollowing modifications: - stop lopressor - Begin coreg 6,25mg twice daily 2. Return for follow-up; in the interim, contact the office if new symptoms arise. SENIOR TECHNICAL SPECIALIST one month documented in this encounter Progress Notes * ROLAND Becerril - 09/29/2024 2:30 PM EDT Chief Complaint I have more energy off of that medicine Reason for Visit Patient presents to the office today for outpatient follow-up for testing results and medication change. Last evaluated in clinic by myself July 2024. At that time, she was seen on an add-on due to concerns of progressive fatigability. Subsequent lab work no evidence of azotemia, anemia, TSH was normal. I had reduced beta-fariha dosage. Presents today ambulatory with steady gait. Accompanied by daughter Patient denies any hospitalizations or significant changes to interval medical history since last office follow-up. History of Present Illness Patient is a very pleasant 83 old female who presents to the office today where she is very pleased with how much better she feels with lowered Lopressor dosage. She reports more energy. She deniesshortness of breath. She remains aerobically active. She does feel that her blood pressure has beenslightly elevated on lower dose of Lopressor. After discussion, we will transition Lopressor over to carvedilol. She will return back to clinic for blood pressure check. Review of Systems Cardiovascular: Negative for chest pain, dyspnea on exertion, irregular heartbeat, leg swelling, near-syncope, orthopnea, palpitations, paroxysmal nocturnal dyspnea and syncope. Visit Vitals BP 140/80 (BP Location: Left arm, Patient Position: Sitting) Pulse 64 Ht (!) 1.549 m (5' 1 ) Wt 64.1 kg (141 lb 6.4 oz) BMI 26.72 kg/m?? Smoking Status Former BSA 1.66 m?? Physical Exam Vitals and nursing note reviewed. HENT: Head: Normocephalic. Cardiovascular: Rate and Rhythm: Normal rate and regular rhythm. Heart sounds: Normal heart sounds. Pulmonary: Effort: Pulmonary effort is normal. Breath sounds: Normal breath sounds. Abdominal: Palpations: Abdomen is soft. Musculoskeletal: Right lower leg: No edema. Left lower leg: No edema. Skin: General: Skin is warm and dry. Neurological: General: No focal deficit present. Mental Status: She is alert. Psychiatric: Mood and Affect: Mood normal. Behavior: Behavior normal. ALLERGIES: Penicillins Current Outpatient Medications Medication Instructions amLODIPine (NORVASC) 5 mg, Daily aspirin 81 mg, Daily atorvastatin (LIPITOR) 80 mg, Daily carvedilol (COREG) 6.25 mg, oral, 2 times daily (morning and late afternoon) clopidogrel (PLAVIX) 75 mg, oral, Daily, On the first day of starting the medication take 4 tabletsby mouth. Then take 1 tablet by mouth each day after. dicyclomine (Bentyl) 20 mg tablet 1 tablet, Every 12 hours scheduled (0630,1830) losartan (COZAAR) 50 mg, oral, 2 times daily multivit with minerals/lutein (MULTIVITAMIN 50 PLUS ORAL) 1 tablet, Daily nitroglycerin (NITROSTAT) 0.4 mg, Every 5 min PRN omeprazole (PRILOSEC) 40 mg, Daily before breakfast Assessment: Essential hypertension Her dose of Lopressor was down titrated due to fatigability. Blood pressure is borderline in the office. She was noted to have improvement in fatigue with down titration of Lopressor, will discontinue andtransitioned over to carvedilol. BMI 26.0-26.9,adult Reviewed the merits of healthy lifestyle choices on overall cardiovascular health. Fatigue July 2024 : presents to the office today with complaints of ongoing fatigability and having no energy . Symptoms started close to 4 weeks ago. Her prior angina symptom was a strange chest sensation and she denies any reoccurrence. Subsequent lab work showed no evidence of anemia, azotemia. TSH was normal. Her dose of Lopressor was decreased and she presents to the office today with significant improvement and more energy . At this time, we will transition Lopressor over to carvedilol. Plan: Through informed decision making process incorporating patients unique circumstances, the followingtreatment plan will be initiated: 1. Prescription drug management of cardiovascular medication for efficacy, adherence to treatment, side effect assessment and polypharmacy. Current treatment clinically warranted and to continue withfollowing modifications: - stop lopressor - Begin coreg 6,25mg twice daily 2. Return for follow-up; in the interim, contact the office if new symptoms arise. SENIOR TECHNICAL SPECIALIST one month Jeannette Dave MSN, [place], PMHNP-[facility] [place], [place] Please excuse any errors in grammar or translation related to this dictation. Voice recognition software was utilized to prepare this document. documented in this encounter Miscellaneous Notes * Assessment & Plan Note - ROLAND Becerril - 09/30/2024 8:26 AM EDT Associated Problem(s): Fatigue July 2024 : presents to the office today with complaints of ongoing fatigability and having no energy . Symptoms started close to 4 weeks ago. Her prior angina symptom was a strange chest sensation and she denies any reoccurrence. Subsequent lab work showed no evidence of anemia, azotemia. TSH was normal. Her dose of Lopressor was decreased and she presents to the office today with significant improvement and more energy . At this time, we will transition Lopressor over to carvedilol. * Assessment & Plan Note - ROLAND Becerril - 09/30/2024 8:25 AM EDT Associated Problem(s): BMI 26.0-26.9,adult Reviewed the merits of healthy lifestyle choices on overall cardiovascular health. * Assessment & Plan Note - ROLAND Becerril - 09/30/2024 8:25 AM EDT Associated Problem(s): Essential hypertension Her dose of Lopressor was down titrated due to fatigability. Blood pressure is borderline in the office. She was noted to have improvement in fatigue with down titration of Lopressor, will discontinue andtransitioned over to carvedilol. documented in this encounter Plan of Treatment Upcoming Encounters Date Type Department Care Team (Late st Contact Info) Description 11/03/2024 2:00 PM EDT Office Visit [address] [place] [address] Jeannette Dave, DIVORCE MEDIATOR-DETECTIVE SERGEANT 703 [facility] 2, [address] [place] [address] 01/27/2025 1:00 PM EST Office Visit [address] [place] [address] Jeannette Dave, DIVORCE MEDIATOR-DETECTIVE SERGEANT 703 [facility] 2, [facility] [address] [place] [address] documented as of this encounter Visit Diagnoses Diagnosis Essential hypertension- Primary Unspecified essential hypertension Fatigue, unspecified type BMI 26.0-26.9,adult documented in this encounter Additional Health Concerns Assessment Noted Time A fall risk assessment has been complete d for the patient 08/05/2024 1:51 PM EDT documented as of this encounter Care Teams Batch Mixer Relationship Specialty Start Date End Date Branden Du DO [address] [place] [address] PCP - General Internal Medicine 11/07/23 documented as of this encounter
[2024-10-03] VITALS (19 sets, daily range): BP systolic 103–160; BP diastolic 68–91; PULSE 57–77; TEMP 36.7; O2SAT 95–98; BMI 26.5
--- OUTSIDE RECORDS SUMMARY | 2024-10-03 15:25 | XMS_ITS | Encounter Summary ---
Author Organization [facility] Address [address] [place] [address] Phone Care Team Providers Care Screwhead Stoner And Polisher Name Role Phone Branden Du DO Primary Care Provider [phone] Encounter Details Date Type Department Care Team (Late st Contact Info) Description 05/26/2024 Scanned Document [facility] [address] [place] [phone] Scanning, Generic Provider Social History Tobacco Use [...] Description 11/03/2024 2:00 PM EDT Office Visit [address] [place] [address] Jeannette Dave, CHANGE RELEASE MANAGER-[address], [address] [place], [place] [id number] 01/27/2025 1:00 PM EST Office Visit [address] [place] [address] Jeannette Dave, CHANGE RELEASE MANAGER-TOP LIFT TRIMMER 703 [facility] [address], [address] [place] [address] documented as of this encounter Visit Diagnoses Not on filedocumented in this encounter Additional Health Concerns Assessment Noted Time A fall risk assessment has been complete d for the patient 12/20/2023 10:41 AM EDT documented as of this encounter Care Teams Screwhead Stoner And Polisher Relationship Specialty Start Date End Date Branden Du DO [address] [place] [address] PCP - General Internal Medicine 11/07/23 documented as of this encounter
--- OUTSIDE RECORDS SUMMARY | 2024-10-03 15:25 | XMS_ITS | Encounter Summary ---
Author Organization [facility] Address [address] [place] [address] Phone Care Team Providers Care Commercial Leasing Manager Name Role Phone Branden Du DO Primary Care Provider [phone] Reason for Visit * Reason Comments Med Change Request Encounter Details Date Type Department Care Team (Late Contact Info) Description 09/30/[address] [phone] Inderjit Frausto DO 703 [facility] 2, [address] [address] Hyperlipidemia, unspecified hyperlipidemia type Social History Tobacco Use Types Packs/Day Years [...] Description 11/03/2024 2:00 PM EDT Office Visit [address] [address] Jeannette Dave, EXTRACTOR OPERATOR SOLVENT PROCESS-MILKING WORKER 703 [facility] 2, [address] [address] 01/27/2025 1:00 PM EST Office Visit [address] [address] Jeannette Dave, EXTRACTOR OPERATOR SOLVENT PROCESS-MILKING WORKER 703 [facility] 2, [address] [place] [address] documented as of this encounter Visit Diagnoses Diagnosis Hyperlipidemia, unspecified hyperlipidemia type documented in this encounter Additional Health Concerns Assessment Noted Time A fall risk assessment has been complete d for the patient 08/05/2024 1:51 PM EDT documented as of this encounter Care Teams Commercial Leasing Manager Relationship Specialty Start Date End Date Branden Du DO [address] [place] [address] PCP - General Internal Medicine 11/07/23 documented as of this encounter
--- OUTSIDE RECORDS SUMMARY | 2024-10-03 15:25 | XMS_ITS | Clinical Summary ---
Author Organization [facility] Address [address] [place] [address] Care Team Providers Care Lab Animal Technician Name Role Phone FlorianBranden Hermann SEGAL Primary Care Provider [phone] Allergies No known active allergies Medications amLODIPine [...] Due Date Last Done Comments Influenza Vaccine (#1) 2024 3, 12/13/2021, 12/14/2020, Additional history exists Pneumococcal Vaccine: 65+ Years Completed 3, 01/28/2015 Insurance [employer] Care Teams Lab Animal Technician Relationship Specialty Start Date End Date Branden Du DO PCP - General Internal Medicine 04/24/23
--- OUTSIDE RECORDS SUMMARY | 2024-10-03 15:25 | XMS_ITS | Encounter Summary ---
Author Organization [facility] Address [address] [place] [address] Phone Care Team Providers Care Deer Farm Worker Name Role Phone Maura Andres RN Unavailable Unavailable Branden Du DO Primary Care Provider [phone] Encounter Details Date Type Department Care Team (Late st Contact Info) Description 10/29/2023 Scanned Document [facility] [address] [place] [phone] Scanning, Generic Provider Social History Tobacco Use [...] Description 11/03/2024 2:00 PM EDT Office Visit [address] [phone] Jeannette Dave, MATERIALS AND CORROSION ENGINEER-MAGAZINE PUBLISHER 703 [facility] 2, [address] [address] 01/27/2025 1:00 PM EST Office Visit [address] [phone] Jeannette Dave, MATERIALS AND CORROSION ENGINEER-MAGAZINE PUBLISHER 703 [facility] 2, [address] [address] documented as of this encounter Visit Diagnoses Not on filedocumented in this encounter Care Teams Deer Farm Worker Relationship Specialty Start Date End Date Branden Du DO [address] [place] [address] PCP - General Internal Medicine 11/07/23 Maura Andres, educational guidance counselorReview Coordinator 10/30/23 01/28/24 documented as of this encounter
--- OUTSIDE RECORDS SUMMARY | 2024-10-03 15:25 | XMS_ITS | Encounter Summary ---
Author Organization [facility] Address [address] [place] [address] Phone Care Team Providers Care What Job Titles Mean Name Role Phone Branden Du DO Primary Care Provider [phone] Encounter Details Date Type Department Care Team (Late Contact Info) Description 08/05/2024 Scanned Document [facility] [address] [place] [phone] Scanning, Generic Provider Social History Tobacco Use [...] Description 11/03/2024 2:00 PM EDT Office Visit [address] [place] [address] Jeannette Dave, PULVERIZER FEEDER-AUTO DAMAGE INSURANCE APPRAISER 703 [facility] 2, [address] [place], [place] [id number] 01/27/2025 1:00 PM EST Office Visit [place] [address] [facility] 250 [place] [address] Jeannette Dave, PULVERIZER FEEDER-AUTO DAMAGE INSURANCE APPRAISER 703 [facility] B[address] 2, [address] [place] [address] documented as of this encounter Procedures Procedure [...] documented as of this encounter Care Teams What Job Titles Mean Relationship Specialty Start Date End Date Branden Du DO [address] [place] [address] PCP - General Internal Medicine 11/07/23 documented as of this encounter
--- OUTSIDE RECORDS SUMMARY | 2024-10-03 15:25 | XMS_ITS | Encounter Summary ---
Author Organization [facility] Address [address] [place] [address] Phone Care Team Providers Care Smokehouse Operator Name Role Phone Branden Du DO Primary Care Provider [phone] Reason for Visit * Reason Comments Med Refill Encounter Details Date Type Department Care Team (Late st Contact Info) Description 09/29/2024 Refill [place] [address] [facility] [address] [place] [address] Inderjit Frausto DO 703 [facility] 2, [address] [place] [address] Hyperlipidemia, unspecified hyperlipidemia type Social History [...] on file documented as of this encounter Miscellaneous Notes * Telephone Encounter - Haven Laureano CMA - 09/29/2024 4:04 PM EDT Deny Metoprolol due to being discontinued documented in this encounter Plan of Treatment Upcoming Encounters Date Type Department Care Team (Late st Contact Info) Description 11/03/2024 2:00 PM EDT Office Visit [address] [place] [address] Jeannette Dave, SOCIAL MEDIA PROJECT MANAGER-GRAPE PRUNER 703 [facility] 2, [address] [place] [address] 01/27/2025 1:00 PM EST Office Visit [facility] 703 [facility] 250 [place] [phone] Jeannette Dave, SOCIAL MEDIA PROJECT MANAGER-GRAPE PRUNER 703 [facility] 2, [address] [place] [address] documented as of this encounter Visit Diagnoses Diagnosis Hyperlipidemia, unspecified hyperlipidemia type documented in this encounter Additional Health Concerns Assessment Noted Time A fall risk assessment has been complete d for the patient 08/05/2024 1:51 PM EDT documented as of this encounter Care Teams Smokehouse Operator Relationship Specialty Start Date End Date Branden Du DO [address] [place] [address] PCP - General Internal Medicine 11/07/23 documented as of this encounter
--- OUTSIDE RECORDS SUMMARY | 2024-10-03 15:25 | XMS_ITS | Encounter Summary ---
Author Organization [facility] Address [address] [place] [address] Phone Care Team Providers Care Workers' Compensation Commissioner Name Role Phone Maura Andres RN Unavailable Unavailable Branden Du DO Primary Care Provider [phone] Encounter Details Date Type Department Care Team (Late st Contact Info) Description 10/28/2023 Scanned Document [facility] [address] [place] [phone] Scanning, Generic Provider Social History Tobacco Use [...] Description 11/03/2024 2:00 PM EDT Office Visit [address] [phone] Jeannette Dave, FURNITURE ASSOCIATE-DISTRICT PLANT SUPERINTENDENT 703 [facility] 2, [address] [address] 01/27/2025 1:00 PM EST Office Visit [address] [phone] Jeannette Dave, FURNITURE ASSOCIATE-DISTRICT PLANT SUPERINTENDENT 703 [facility] 2, [address] [address] documented as of this encounter Procedures Procedure Name Priority Date/Time Associated Diagnosis Comments ECHOCARDIOGRAM 10/28/2023 documented in this encounter Results * Echocardiogram (10/28/2023) Narrative 10/28/2023 Ordered by an unspecified provider. us Generic Provider Scanning CV ECHO PROCEDURES Fin al Result documented in this encounter Visit Diagnoses Not on filedocumented in this encounter Care Teams Workers' Compensation Commissioner Relationship Specialty Start Date End Date Branden Du DO [address] [place] [address] PCP - General Internal Medicine 11/07/23 Maura Andres, domestic violence counselorMold Filler Plastic Dolls 10/30/23 01/28/24 documented as of this encounter
--- OUTSIDE RECORDS SUMMARY | 2024-10-03 15:25 | XMS_ITS | Encounter Summary ---
Author Organization [facility] Address [address] [place] [address] Phone Care Team Providers Care Playground Equipment Erector Name Role Phone Branden Du DO Primary Care Provider [phone] Encounter Details Date Type Department Care Team (Late st Contact Info) Description 04/28/2024 Scanned Document [facility] [address] [place] [phone] Scanning, Generic Provider Social History Tobacco Use [...] Description 11/03/2024 2:00 PM EDT Office Visit [address] [phone] Jeannette Dave, INFERTILITY MEDICAL ASSISTANT-CENTRAL AISLE CASHIER 703 [facility] 2, [address] [address] 01/27/2025 1:00 PM EST Office Visit [address] [address] Jeannette Dave, INFERTILITY MEDICAL ASSISTANT-CENTRAL AISLE CASHIER 703 [facility] 2, [facility] [address] [place], [place] [phone] documented as of this encounter Visit Diagnoses Not on filedocumented in this encounter Additional Health Concerns Assessment Noted Time A fall risk assessment has been complete d for the patient 12/20/2023 10:41 AM EDT documented as of this encounter Care Teams Playground Equipment Erector Relationship Specialty Start Date End Date Branden Du DO [address] [place] [address] PCP - General Internal Medicine 11/07/23 documented as of this encounter
--- OUTSIDE RECORDS SUMMARY | 2024-10-03 15:25 | XMS_ITS | Encounter Summary ---
Author Organization [facility] Address [address] [place] [address] Phone Care Team Providers Care Press Assistant Name Role Phone Branden Du DO Primary Care Provider [phone] Encounter Details Date Type Department Care Team (Latest Contact Info) Description 09/29/2024 Travel Social History Tobacco Use Types Packs/Day Years [...] Description 11/03/2024 2:00 PM EDT Office Visit [address] [phone] Jeannette Dave, COAGULATING BATH OPERATOR-HOTEL CLERK 703 [facility] 2, [address] [address] 01/27/2025 1:00 PM EST Office Visit [address] [phone] Jeannette Dave, COAGULATING BATH OPERATOR-HOTEL CLERK 703 [facility] 2, [address] [address] documented as of this encounter Visit Diagnoses Not on filedocumented in this encounter Additional Health Concerns Assessment Noted Time A fall risk assessment has been complete d for the patient 08/05/2024 1:51 PM EDT documented as of this encounter Care Teams Press Assistant Relationship Specialty Start Date End Date Branden Du DO [address] [place] [address] PCP - General Internal Medicine 11/07/23 documented as of this encounter
--- OUTSIDE RECORDS SUMMARY | 2024-10-03 15:25 | XMS_ITS | Encounter Summary ---
Author Organization [facility] Address [address] [place] [address] Phone Care Team Providers Care Hand Wood Sander Name Role Phone Branden Du DO Primary Care Provider [phone] Reason for Visit * Reason Comments Med Refill Encounter Details Date Type Department Care Team (Late st Contact Info) Description 09/29/[address] [address] Annika Del Castillo MD 703 [facility] 2, [facility] [address] [place] [address] elevation myocardial infarction (STEMI); Coronary artery disease, unspecified vessel or lesion type, unspecified whether angina present, unspecified whether [place] or transplanted heart; History of PTCA; Essential hypertension Social History Tobacco Use Types Packs/Day Years [...] Description 11/03/2024 2:00 PM EDT Office Visit [address] [address] Jeannette Dave, SCRUM PROJECT MANAGER-SAMPLE ROOM SUPERVISOR 703 [facility] [address], [facility] [address] [place] [address] 01/27/2025 1:00 PM EST Office Visit [facility] 703 [facility] [address] [place] [address] Jeannette Dave, SCRUM PROJECT MANAGER-SAMPLE ROOM SUPERVISOR [address] [place] [address] documented as of this encounter Visit Diagnoses Diagnosis History of ST elevation myocardial infarction (STEMI) Coronary artery disease, unspecified vessel or lesion type, unspecified whether angina present, unspecified whether [place] or transplanted heart History of PTCA Postsurgical percutaneous transluminal coronary angioplasty status Essential hypertension Unspecified essential hypertension documented in this encounter Additional Health Concerns Assessment Noted Time A fall risk assessment has been complete d for the patient 08/05/2024 1:51 PM EDT documented as of this encounter Care Teams Hand Wood Sander Relationship Specialty Start Date End Date Branden Du DO [address] [place] [address] PCP - General Internal Medicine 11/07/23 documented as of this encounter
--- OUTSIDE RECORDS SUMMARY | 2024-10-03 15:25 | XMS_ITS | Clinical Summary ---
Author Organization [facility] Address [address] [place] [address] Phone Care Team Providers Care Flat Knitter Name Role Phone Branden Du Primary Care Provider [phone] Allergies Active Allergy Reactions Criticality Noted Date Comments Penicillins Unknown 11/07/2023 Medications multivit with minerals/lutein (MULTIVITAMIN 50 PLUS ORAL) Take 1 tablet by mouth once daily. 024 Active aspirin 81 mg EC tablet Take 1 tablet (81 mg) by mouth once daily. 024 Active nitroglycerin (Nitrostat) 0.[address] 1 tablet (0.4 mg) under the tongue every 5 minutes if needed for chest pain. 024 Active omeprazole (PriLOSEC) [address] capsule Take 1 capsule (40 mg) by mouth once daily in the morning. Take before meals. 023 Active amLODIPine (Norvasc) 5 mg tablet Take 1 tablet (5 mg) by mouth once daily. Active clopidogrel (Plavix) 75 mg tabletIndications :History of PTCA,History of ST elevation myocardial infarction (STEMI),Coronary artery disease, unspecified vessel or lesion type, unspecified whether angina present, unspecified whether [place] or transplanted heart Take 1 tablet (75 mg) by mouth once daily. On the first day of starting the medication take 4 tablets by mouth. Then take 1 tablet by mouth each day after. 90 tablet 3 024 2024 Active dicyclomine (Bentyl) 20 mg tablet Take 1 tablet (20 mg) by mouth every 12 hours. 025 Active atorvastatin (Lipitor) 80 mg tabletIndications :Hyperlipidemia, unspecified hyperlipidemia type TAKE 1 TABLET BY MOUTH EVERY DAY IN THE EVENING 90 tablet 3 Active losartan (Cozaar) 50 mg tabletIndications :Essential hypertension Take 1 tablet (50 mg) by mouth 2 times a day. 180 tablet 3 025 2025 Active carvedilol (Coreg) 6.25 mg tabletIndications :Essential hypertension Take 1 tablet (6.25 mg) by mouth 2 times daily (morning and late afternoon). 60 tablet 11 025 2025 Active metoprolol tartrate (Lopressor) 25 mg tabletIndications :Hyperlipidemia, unspecified hyperlipidemia type Take 1 tablet (25 mg) by mouth 2 times a day. 180 tablet 3 025 2025 Active atorvastatin (Lipitor) 80 mg tablet Take 1 tablet (80 mg) by mouth once daily. 024 2024 Discontinued(R eorder) losartan (Cozaar) 50 mg tabletIndications :History of ST elevation myocardial infarction (STEMI),Coronary artery disease, unspecified vessel or lesion type, unspecified whether angina present, unspecified whether [place] or transplanted heart,History of PTCA Take 1 tablet (50 mg) by mouth 2 times a day. 180 tablet 3 024 2024 Discontinued metoprolol tartrate (Lopressor) 25 mg tabletIndications :Essential hypertension Take 0.5 tablets (12.5 mg) by mouth 2 times a day. 025 2024 Discontinued(R eorder) metoprolol tartrate (Lopressor) 25 mg tabletIndications :Hyperlipidemia, unspecified hyperlipidemia type TAKE 1 TABLET BY MOUTH TWICE A DAY 1 tablet 025 2024 Discontinued Active Problems Problem Noted Date Diagnosed Date Fatigue 12/20/2023 Assessment & Plan (09/30/2024 8:26 AM EDT): July 2024 : presents to the office [...] we will transition Lopressor over to carvedilol. Assessment & Plan (08/06/2024 9:41 AM EDT): Presents to the office today with complaints of ongoing fatigability and having no energy . Symptoms started close to 4 weeks ago. Her prior angina symptom was a strange chest sensation and she denies any reoccurrence. Near syncope 12/20/2023 Essential hypertension 12/20/2023 Assessment & Plan (09/30/2024 8:25 AM EDT): Her dose of Lopressor was down titrated due to fatigability. Blood pressure is borderline in the office. She was noted to have improvement in fatigue with down titration of Lopressor, will discontinue and transitioned over to carvedilol. Assessment & Plan (08/06/2024 9:40 AM EDT): Optimal in office CAD (coronary artery disease) 11/07/2023 Assessment & Plan (08/06/2024 9:40 AM EDT): Oct 26, 2024 Inferior STEMI pRCA PCI/Pedro 4 x 18 mm mLAD mild intramyocardial [...] lot without concerns. Former smoker 11/07/2023 BMI 26.0-26.9,adult 11/07/2023 Assessment & Plan (09/30/2024 8:25 AM EDT): Reviewed the merits of healthy lifestyle choices on overall cardiovascular health. Assessment & Plan (08/06/2024 9:40 AM EDT): Reviewed the merits of healthy lifestyle choices on overall cardiovascular health. History of PTCA 11/07/2023 Hyperlipidemia 11/07/2023 Assessment & Plan (08/06/2024 9:40 AM EDT): High intensity statin Resolved Problems Problem Noted Date Diagnosed Date Resolved Date Family history of PTCA 11/07/202311/06 RCA occlusion (Multi) 11/07/20232023 Encounters Date Type Department Care Team Description 09/30/[address] [address] Inderjti Frausto DO Hyperlipidemia, unspecified hyperlipidemia type 09/29/2024 2:30 PM EDT Office Visit [address] [address] Jeannette Daev, PROMOTION SPECIALIST-BELLOWS FILLER Essential hypertension (Primary Dx); Fatigue, unspecified type; BMI 26.0-26.9,adult 09/29/2024 Travel 09/29/[address] [address] Annika Del Castillo MD History of ST elevation myocardial infarction (STEMI); Coronary artery disease, unspecified vessel or lesion type, unspecified whether angina present, unspecified whether [place] or transplanted heart; History of PTCA; Essential hypertension 09/29/[address] [place] [address] Inderjit Frausto DO Hyperlipidemia, unspecified hyperlipidemia type 08/11/[address] [place] [address] Lavonne Dwyer LPN Results 08/05/2024 2:00 PM EDT Office Visit [address] [place] [address] Jeannette Dave APRN-BELLOWS FILLER Hyperlipidemia, unspecified hyperlipidemia type (Primary Dx); Coronary artery disease, unspecified vessel or lesion type, unspecified whether angina present, unspecified whether [place] or transplanted heart; History of ST elevation myocardial infarction (STEMI); Essential hypertension; BMI 27.0-27.9,adult; Fatigue, unspecified type; Shortness of breath 08/05/2024 Scanned Document [facility] [address] [place] [place] [address] Scanning, Generic Provider 08/05/2024 Travel 07/13/2024 Telephone [facility] [address] [address] Mariela Courtney, CONFIDENTIAL SECRETARY Shortness of Breath from Last 3 Months [...] blue cap/grady label *Check age/dose* 12/27/2021 Novel [id number], preservative-free 03/08 Pfizer COVID-19 vaccine, 12 years [...] Mass Index 26.72 09/29/2024 2:31 PM EDT Plan of Treatment Upcoming Encounters Date Type Department Care Team (Late st Contact Info) Description 11/03/2024 2:00 PM EDT Office Visit [address] [phone] Jeannette Dave, PROMOTION SPECIALIST-BELLOWS FILLER 703 [facility] 2, [address] [address] 01/27/2025 1:00 PM EST Office Visit [address] [address] Jeannette Dave, PROMOTION SPECIALIST-BELLOWS FILLER 703 [facility] 2, [address] [address] Health Maintenance Due Date Last Done Comments Bone Density Scan 1940 Lipid Panel 1940 Medicare Annual Wellness Visit (AWV) 1940 DTaP/Tdap/Td Vaccines (1 - Tdap) 1962 COVID-19 Vaccine ( season) 2024 12/05/2023, 12/27/2022, 12/27/2021, Additional history exists Influenza Vaccine (#1) 2024 4, 12/27/2022, 12/13/2021, Additional history exists Pneumococcal Vaccine Completed 08/06/2022, 01/29/20 15 RSV High Risk: (Elderly (60+) or Population) Completed 12/27/2022 Zoster Vaccines Completed 05/06/2023, 07/23, 05/26/2010 HIB Vaccines Aged Out No longer eligi ble based on patient's age to complete this topic HPV Vaccines (No Doses Required) Completed Hepatitis A Vaccines Aged Out No long [...] Months Insurance MEDICARE PART A AND B [facility] MEDICARE PART A AND B Care Teams Flat Knitter Relationship Specialty Start Date End Date Branden Du DO [address] [place] [address] PCP - General Internal Medicine 11/07/23
--- OUTSIDE RECORDS SUMMARY | 2024-10-03 15:25 | XMS_ITS | Encounter Summary ---
Author Organization [facility] Address [address] [place] [address] Phone Care Team Providers Care Digital Photo Printer Name Role Phone Maura Andres RN Unavailable Unavailable Branden Du DO Primary Care Provider [phone] Encounter Details Date Type Department Care Team (Late st Contact Info) Description 10/27/2023 Scanned Document [facility] [address] [place] [phone] Scanning, Generic Provider Social History Tobacco Use [...] 11/03/2024 2:00 PM EDT Office Visit [address] [phone] Jeannette Dave, BUSINESS SYSTEMS ARCHITECT-FOOD CRITIC 703 [facility] 2, [address] [address] 01/27/2025 1:00 PM EST Office Visit [address] [phone] Jeannette Dave, BUSINESS SYSTEMS ARCHITECT-FOOD CRITIC 703 [facility] 2, [address] [address] documented as of this encounter Procedures Procedure Name Priority Date/Time Associated Diagnosis Comments CARDIAC CATHETERIZATION PROCEDURE - ONBASE SCAN 10/27/2023 OUTSIDE IMAGING SCAN 10/27/2023 documented in this encounter Results * Cardiac Catheterization - Onbase Scan (10/27/2023) Narrative 10/27/2023 Ordered by an unspecified provider. us Generic Provider Scanning CV CARDIAC CATH PROCED URES Final Result * OUTSIDE IMAGING SCAN (10/27/2023) Anatomical Region Laterality Modality Other Narrative 10/27/2023 Ordered by an unspecified provider. us Generic Provider Scanning OUTSIDE SCAN Final Result documented in this encounter Visit Diagnoses Not on filedocumented in this encounter Care Teams Digital Photo Printer Relationship Specialty Start Date End Date Branden Du DO [address] [place] [address] PCP - General Internal Medicine 11/07/23 Maura Andres, clerical officeBrilliandeer Looper 10/30/23 01/28/24 documented as of this encounter
--- OUTSIDE RECORDS SUMMARY | 2024-10-03 15:25 | XMS_ITS | Encounter Summary ---
Author Organization [facility] Address [address] [place] [address] Phone Care Team Providers Care Sport Shoe Spike Assembler Name Role Phone Maura Andres RN Unavailable Unavailable Branden Du DO Primary Care Provider [phone] Encounter Details Date Type Department Care Team (Late st Contact Info) Description 11/05/2023 Scanned Document [facility] [address] [place] [phone] Scanning, Generic Provider Social History Tobacco Use [...] Description 11/03/2024 2:00 PM EDT Office Visit [address] [place] [address] Jeannette Dave, R AND D LAB TECHNICIAN-UNDERGROUND TRUCK OPERATOR 707 [facility] 2, [address] [place] [address] 01/27/2025 1:00 PM EST Office Visit [address] [place] [address] Jeannette Dave, R AND D LAB TECHNICIAN-UNDERGROUND TRUCK OPERATOR 703 [facility] 2, [address] [place] [address] documented as of this encounter Procedures Procedure Name Priority Date/Time Associated Diagnosis Comments OUTSIDE IMAGING SCAN 11/05/2023 documented in this encounter Results * OUTSIDE IMAGING SCAN (11/05/2023) Anatomical Region Laterality Modality Other Narrative 11/05/2023 Ordered by an unspecified provider. us Generic Provider Scanning OUTSIDE SCAN Final Result documented in this encounter Visit Diagnoses Not on filedocumented in this encounter Care Teams Sport Shoe Spike Assembler Relationship Specialty Start Date End Date Branden Du DO [address] [place] [address] PCP - General Internal Medicine 11/07/23 Maura Andres, customs port directorPractice Physician 10/30/23 01/28/24 documented as of this encounter
--- OUTSIDE RECORDS SUMMARY | 2024-10-03 15:27 | XMS_ITS | CCD ---
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 Name Role Phone Unavailable Primary Care Provider [...] Unavailable DO Branden Du Primary Care Provider [phone] DO Branden Du Attending Provider [phone] DO Branden Du Primary Care Provider Philly, DO Otero Attending Provider [phone] FLAKITA Álvarez Emergency Provider [phone] DO Branden Du Primary Care Provider DO Reji Saenz Admit Provider DO Reji Saenz Attending Provider MD Sobia Okeefe Other Provider DO Rona Andres Emergency Provider [phone] Branden Du Primary Care Unavailable Rona Andres Attending Unavailable Rona Andres Admitting Unavailable Branden Du Admitting Unavailable Branden Du Attending Unavailable Philly, Branden Primary Care Unavailable Sobia [place] Consulting Unavaila ble Reji Saenz Attending Unavailable Reji Saenz Admitting Unavailable Branden Du Primary Care Unavailable Sylvester Monk Attending Unavailable Sylvester Monk Admitting Unavailable Branden Du Primary Care Unavailable Dmitry NATION, Maura Unavailable Unavailable Branden Du DO Primary Care Provider INDERJIT SAENZ Attending Unavailable BRANDEN DU Primary Care Unavailable INDERJIT SAENZ Attending Unavailable BRANDEN DU Primary Care Unavailable INDERJIT SAENZ Attending Unavailable INDERJIT SAENZ Referring Unavailable BRANDEN DU Primary Care Unavailable VANESSA DAVE Attending Unavailable BRANDEN DU Primary Care Unavailable Branden Du DO Primary Care Provider [phone] Aleshia LOZANO, Sylvester Lozano Attending Provider Vanessa Dave APRN Attending Provider Branden Du DO Attending Provider [phone] Maldonado LOZANO, Sobia Stnaley Attending Provider [phone] Allergies Allergy Classification Reported Allergen(s) Allergy Type Date of Onset Reaction(s) Facility (2 sources) Penicillins; Translations: [PENICILLINS] Drug allergy (disorder) 4 [facility] Repository (12 sources) Substance with penicillin structure and antibacterial mechanism of action (substance) Drug allergy 4 Unknown [email or web address] Other (1 source) Penicillins Drug allergy (disorder) 4 [facility] Repository (2 sources) Penicillins Propensity to adverse reactions 4 Unknown [facility] (2 sources) Penicillins Propensity to adverse reactions 4 Unknown [facility] Medications Current Medications Medication Drug Class(es) Dates Sig (Normalized) Sig (Original) amLODIPine 5 mg oral tablet (20 sources) Dihydropyridine Calcium Channel Fariha Start: 12-23-2023 End: 08-06-2024 take 1 tablet by mouth once daily Amlodipine 5 mg tablet Active 0 .ROUTE .COMPLEX August 06, 2024 1:26pm TAKE ONE TABLET BY MOUTH DAILY Complies with drug therapy Start: 12-20-2023 End: 12-23-2023 take 1 tablet by mouth once daily Amlodipine 5 mg tablet Discontinued 5 MG PO Daily December 20, 2023 12:00am December 23, 2023 12:35pm Start: 11-12-2023 End: 12-12-2023 take 1 tablet by mouth once daily Amlodipine 5 mg tablet Discontinued 5 MG PO Daily November 12, 2023 12:00am December 12, 2023 1:30pm Start: 10-27-2023 End: 10-29-2023 take 1 tablet by mouth once daily Amlodipine 5 mg tablet Discontinued 5 MG PO Daily October 27, 2023 12:00am October 29, 2023 3:49pm Start: 04-23-2023 End: 06-20-2023 take 1 tablet by mouth once daily Amlodipine 5 mg tablet Discontinued 5 MG PO Daily May 17, 2023 1:00am June 20, 2023 2:35pm aspirin 81 mg delayed release oral tablet (14 sources) Platelet Aggregation Inhibitor, Nonsteroidal Anti-inflammatory Drug Start: 10-29-2023 take 1 tablet by mouth once daily aspirin 81 mg EC tablet Take 1 tablet (81 mg) by mouth once daily. 10/29/2023 Active atorvastatin 80 mg oral tablet (14 sources) HMG-CoA Reductase Inhibitor Start: 10-29-2023 take 1 tablet by mouth once daily atorvastatin (Lipitor) 80 mg tablet Take 1 tablet (80 mg) by mouth once daily. 10/29/2023 Active carvedilol 6.25 mg oral tablet (1 source) alpha-Adrenergic Fariha, beta-Adrenergic Fariha Start: 09-29-2024 End: 09-29-2025 take 1 tablet by mouth twice daily carvedilol (Coreg) 6.25 mg tablet Indications: Essential hypertension Take 1 tablet (6.25 mg) by mouth 2 times daily (morning and late afternoon). 60 tablet 11 09/29/2024 09/29/2025 Active clobetasol propionate 0.5 mg/ml topical solution (1 source) Corticosteroid Start: 08-19-2024 Clobetasol 0.05 % solution Active 1 APPLIC TOPICAL Daily at bedtime August 19, 2024 12:00am Complies with drug therapy clopidogrel 75 mg oral tablet (8 sources) P2Y12 Platelet Inhibitor Start: 12-20-2023 End: 12-19-2024 clopidogrel (Plavix) 75 mg tablet Indications: History of PTCA , History of ST elevation myocardial infarction (STEMI) , Coronary artery disease, unspecified vessel or lesion type, unspecified whether angina present, unspecified whether [place] or transplanted heart Take 1 tablet (75 mg) by mouth once daily. On the first day of starting the medication take 4 tablets by mouth. Then take 1 tablet by mouth each day after. 90 tablet 3 12/20/2023 12/19/2024 Active dicyclomine hydrochloride 20 mg oral tablet (17 sources) Anticholinergic Start: 07-27-2024 take 1 tablet by mouth every twelve hours dicyclomine (Bentyl) 20 mg tablet Take 1 tablet (20 mg) by mouth every 12 hours. 07/27/2024 Active Start: 03-11-2024 End: 07-20-2024 take 1 tablet by mouth twice daily Dicyclomine 20 mg tablet Active 20 MG PO Twice daily 180 90 July 20, 2024 11:23am Complies with drug therapy Start: 12-12-2023 End: 08-05-2024 take 1 capsule by mouth twice daily Dicyclomine 10 mg capsule Discontinued 10 MG PO Twice daily 60 30 December 12, 2023 12:00am March 11, 2024 2:18pm ketoconazole 20 mg/ml medicated shampoo (1 source) Azole Antifungal Start: 08-19-2024 Ketoconazole 2 % shampoo Active 1 APPLIC TOPICAL 3 Times a week 120 August 19, 2024 12:00am Complies with drug therapy Ketoconazole 2 % shampoo (1 source) Start: 08-19-2024 Ketoconazole 2 % shampoo Active 1 APPLIC TOPICAL 3 Times a week 120 August 19, 2024 12:00am losartan potassium 50 mg oral tablet (20 sources) Angiotensin 2 Receptor Fariha Start: 12-12-2023 End: 12-20-2023 take 2 tablets by mouth twice daily Losartan 50 mg tablet Discontinued 100 MG PO Twice daily December 12, 2023 1:23pm December 20, 2023 6:05pm Start: 12-12-2023 take 100 mg by mouth twice daily Losartan Active 100 MG PO Twice daily December 12, 2023 1:23pm Start: 11-20-2023 End: 09-29-2025 take 1 tablet by mouth twice daily losartan (Cozaar) 50 mg tablet Indications: Essential hypertension Take 1 tablet (50 mg) by mouth 2 times a day. 180 tablet 3 09/29/2024 09/29/2025 Active Start: 11-12-2023 End: 12-01-2023 take 1 tablet by mouth twice daily Losartan 25 mg tablet Discontinued 25 MG PO Twice daily November 12, 2023 12:19pm December 01, 2023 7:48pm Start: 10-29-2023 End: 11-06-2024 take 1 tablet by mouth once daily in the morning Losartan 25 mg Tablet Discontinued 25 MG PO Every morning October 29, 2023 12:00am November 12, 2023 12:35pm Start: 05-17-2023 End: 10-29-2023 take 1 tablet by mouth once daily Losartan 50 mg tablet Discontinued 50 MG PO Daily May 17, 2023 1:00am October 29, 2023 3:49pm Start: 05-17-2023 take 50 mg by mouth twice kalyn y Losartan Active 50 MG PO Twice daily [...] for 30 days Apr, Active metoprolol tartrate 25 mg oral tablet (20 sources) beta-Adrenergic Fariha Start: 08-06-2024 Metopr olol Tartrate 25 mg tablet Active 12.5 MG PO Twice daily August 06, 2024 1:25pm Complies with drug therapy Start: 08-05-2024 End: 08-05-2025 take 0.5 tablet by mouth twice daily metoprolol tartrate (Lopressor) 25 mg tablet Indications: Essential hypertension Take 0.5 tablets (12.5 mg) by mouth 2 times a day. 08/05/2024 09/29/2024 Discontinued (Side effects) Start: 11-29-2023 End: 03-12-2024 take 1 tablet by mouth twice daily Metoprolol Tartrate 50 mg tablet Discontinued 50 MG PO Twice daily 180 90 November 29, 2023 3:23pm March 12, 2024 11:21am Start: 10-29-2023 End: 11-06-2024 take 1 tablet by mouth twice daily Metoprolol Tartrate 25 mg tablet Discontinued 25 MG PO Twice daily March 12, 2024 1:00am August 06, 2024 1:26pm multivit with minerals/lutein (MULTIVITAMIN 50 PLUS ORAL) (5 sources) Start: 06-20-2023 take 1 tablet by mouth once daily multivit with minerals/lutein (MULTIVITAMIN 50 PLUS ORAL) Take 1 tablet by mouth once daily. 06/20/2023 Active Multivitamin preparation (7 sources) Start: 06-20-2023 take 1 tablet by mouth once daily Multivitamin Active 1 TAB PO Daily June 20, 2023 12:00am Multivitamin tablet (4 sources) Start: 06-20-2023 take 1 tablet by mouth once daily Multivitamin tablet Active 1 TAB PO Daily June 20, 2023 12:00am Complies with drug therapy Start: 06-20-2023 take 1 tablet by perez th once daily Multivitamin tablet Active 1 TAB PO Daily June 20, 2023 12:00am Start: 06-20-2023 take 1 tablet by perez th once daily Multivitamin tablet Active 1 TAB PO Daily June 19, 2023 11:00pm nitroglycerin 0.4 mg sublingual tablet (14 sources) Nitrate Vasodilator Start: 10-29-2023 nitroglycerin (Nitrostat) 0.[address] 1 tablet (0.4 mg) under the tongue every 5 minutes if needed for chest pain. 10/29/2023 Active sulfamethoxazole 800 mg / trimethoprim 160 mg oral tablet (11 sources) Dihydrofolate Reductase Inhibitor Antibacterial, Sulfonamide Antimicrobial Start: 02-19-2023 take 1 tablet by mouth every twelve hours Sulfamethoxazole-T rimethoprim 800-160 MG 1 tablet Orally Twice a day for 5 days Jan, Active Completed/Discontinued Medications Medication Drug Class(es) Dates Sig (Normalized) Sig (Original) famotidine 40 mg oral tablet (20 sources) Histamine-2 Receptor Antagonist Start: 05-17-2023 End: 06-20-2023 take 1 tablet by mouth once daily at bedtime Famotidine 40 mg tablet Discontinued 40 MG PO Daily at bedtime May 17, 2023 1:00am June 20, 2023 2:35pm Start: 03-14-2023 take 1 tablet by perez every twenty-four hours Famotidine 40 MG 1 tablet at bedtime Orally Once a day for 30 days Feb, Active hyoscyamine sulfate 0.125 mg sublingual tablet (20 sources) Start: 11-12-2023 End: 12-12-2023 Hyoscyamine Sulfate 0.125 mg tablet, sublingual Discontinued 0.125 MG SUBLINGUAL 2-4 TIMES PER DAY as needed for abdominal pain, diarrhea November 12, 2023 12:00am December 12, 2023 [...] Anti-inflammatory Drug Start: 05-17-2023 End: 06-20-2023 take 1 tablet by mouth once daily Meloxicam 15 mg tablet Discontinued 15 MG PO Daily May 17, 2023 1:00am June 20, 2023 2:35pm Start: 08-27-2022 take 1 tablet by perez every twenty-four hours Meloxicam 15 MG 1 tablet Orally Once a day Aug, Active omeprazole 40 mg delayed release oral capsule (20 sources) Proton Pump Inhibitor Start: 10-07-2023 End: 10-28-2023 take 1 capsule by mouth once daily before mealtime Omeprazole 40 mg capsule,delayed release(DR/EC) Discontinued 0 .ROUTE .COMPLEX October 07, 2023 12:27pm October 28, 2023 5:26am TAKE ONE CAPSULE BY MOUTH ONCE DAILY IN THE MORNING, 30 MINUTES BEFORE MEAL Start: 02-08-2023 End: 01-17-2025 take 1 capsule by mouth once daily before mealtime omeprazole (PriLOSEC) [address] capsule Take 1 capsule (40 mg) by mouth once daily in the morning. Take before meals. 02/08/2023 Active ondansetron 4 mg disintegrating oral tablet (20 sources) Serotonin-3 Receptor Antagonist Start: 05-17-2023 End: 06-20-2023 take 1 tablet by mouth every six hours as needed Ondansetron 4 mg tablet,disintegrating Discontinued 4 MG PO Every 6 hours as needed May 17, 2023 1:00am June 20, 2023 2:35pm Start: 05-04-2022 take 1 tablet by perez th every six hours as needed for nausea Ondansetron 4 MG 1Tablet Orally Every 6 hours PRN nausea for 5 days Apr, Active 72 hr scopolamine 0.0139 mg/hr transdermal system (1 source) Anticholinergic Start: 03-23-2024 End: 07-20-2024 Scopolamine Base 1 mg over 3 days patch 3 day Discontinued 1 PATCH TRANSDERML Every 72 hours 4 March 23, 2024 1:00am July 20, 2024 11:17am Scopolamine Base 1 mg over 3 days patch 3 day (3 sources) Start: 03-23-2024 End: 07-20-2024 Scopolamine Base 1 mg over 3 days patch 3 day Discontinued 1 PATCH TRANSDERML Every 72 hours 4 March 23, 2024 1:00am July 20, 2024 11:17am Start: 03-23-2024 Scopolamine Ba se 1 mg over 3 days patch 3 day Active 1 PATCH TRANSDERML Every 72 hours 4 March 23, 2024 12:00am Sod Picosulf-Mag Ox-Citric Ac (20 sources) Start: 07-05-2023 End: 10-27-2023 take 1 dose by mouth once daily Sod Picosulf-Mag Ox-Citric Ac (Clenpiq) 10 mg-3.5 gram- 12 gram/175 mL solution Discontinued 175 ML PO Daily 350 0 July 05, 2023 7:42am October 27, 2023 8:40pm take first dose at 3PM evening before colonoscopy; 2nd dose at 9pm the night before colonoscopy Start: 07-05-2023 End: 10-27-2023 take 1 dose [...] 175 ML PO Daily 350 0 June 19, 2023 11:00pm July 05, 2023 7:43am take first dose at 3PM evening before [...] dose at 9pm the night before colonoscopy ticagrelor 90 mg oral tablet (12 sources) Start: 10-29-2023 End: 11-06-2024 take 1 tablet by mouth twice daily Ticagrelor (Brilinta) 90 mg Tablet Discontinued 90 MG PO Twice daily 180 90 October 29, 2023 12:00am March 09, 2024 5:37pm Problems Active Problems Problem Classification Problem Date Documented Da te Episodic/Chronic Abdominal pain (20 sources) Left lower quadrant pain; Translations: [Left lower quadrant pain] Episodic Acute myocardial infarction (14 sources) Myocardial infarction; Translations: [ST elevation (STEMI) myocardial infarction involving other coronary artery of inferior wall] Onset: 10-27-2023 10-27-2023 Chronic Cancer of colon (17 sources) Personal history of other malignant neoplasm of large intestine; Translations: [Personal history of malignant neoplasm of large intestine] 05-21-2023 Episodic Complications of surgical procedures or medical care (9 sources) Drug therapy finding; Translations: [Unspecified adverse effect of drug or medicament, initial encounter] 11-05-2023 Episodic Coronary atherosclerosis and other heart disease (20 sources) Coronary arteriosclerosis; Translations: [Atherosclerotic heart disease of [place] coronary artery without angina pectoris] Onset: 11-07-2023 Resolved: 11-07-2023 11-10-2023 Chronic Disorders of lipid metabolism (20 sources) Hypercholesterolemia ; Translations: [Pure hypercholesterolemia , unspecified] Onset: 11-07-2023 11-10-2023 Chronic E Codes: [...] Translations: [Hypertensive urgency] Chronic Malaise and fatigue (11 sources) Other fatigue; Translations: [Fatigue] Onset: 12-20-2023 Episodic Menopausal disorders (20 sources) Decreased estrogen level; 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 Mycoses (20 sources) Tinea corporis; Translations: [Tinea corporis] Episodic Nausea and vomiting (1 source) Nausea Episodic Other aftercare (1 source) Other termite helper (current) drug therapy; Translations: [OTH LICENSING COURT MAGISTRATE CURRENT DRUG THERAPY] Onset: 05-22-2022 Episodic Other [...] in right arm Episodic Other gastrointestinal disorders (20 sources) Irritable bowel syndrome; Translations: [Irritable bowel syndrome without diarrhea] 05-17-2023 Chronic Other gastrointestinal disorders (10 sources) Irritable bowel syndrome without diarrhea; Translations: [Irritable bowel syndrome] Chronic Other gastrointestinal disorders (20 sources) Personal history of other diseases of the digestive system; Translations: [History of small bowel obstruction] Episodic Other gastrointestinal disorders (6 sources) Diarrhea, unspecified; Translations: [Diarrhea] Episodic Other gastrointestinal disorders (12 sources) Altered bowel function; Translations: [Change in bowel habit] 05-21-2023 Episodic Other gastrointestinal disorders (10 sources) Change in stool caliber; Translations: [Other fecal abnormalities] 06-20-2023 Episodic Other gastrointestinal disorders (6 sources) Diarrhea; Translations: [Diarrhea, unspecified] 12-12-2023 Episodic Other gastrointestinal disorders (5 sources) Urgent desire for stool; Translations: [Fecal urgency] 12-12-2023 Episodic Other gastrointestinal disorders (2 sources) Fecal urgency; Translations: [Fecal urgency] 12-12-2023 Episodic Other inflammatory condition of skin (2 sources) Seborrheic dermatitis; Translations: [Seborrheic dermatitis, unspecified] 08-19-2024 Episodic Other lower respiratory disease (15 sources) Solitary pulmonary nodule; Translations: [Solitary pulmonary nodule] Onset: 08-11-2021 Episodic Other lower respiratory disease (20 sources) Nodule of lung; Translations: [Solitary pulmonary nodule] 07-30-2023 Episodic Comment on above: CT: 1.7cm nodule RLL - ET/CT: no FDG avid nodules - T: 1.9cm nodule RLL - T: 2.6cm RLL mass - 02/2024 CT: 1.7cm nodule RLL - ET/CT: no FDG avid nodules - 04/2023,CT: 1.9cm nodule RLL - 06/2023,CT: 2.6cm RLL mass - 02/2024,CT: 2cm RLL nodule - 08/2024 Other lower respiratory disease (2 sources) Other nonspecific abnormal finding of lung field; Translations: [Other nonspecific abnormal finding of lung field] Episodic Other lower respiratory disease (10 sources) Lung mass; Translations: [Other nonspecific abnormal finding of lung field] 07-24-2023 Episodic Other lower respiratory disease (4 sources) Imaging of lung abnormal ; Translations: [Other nonspecific abnormal finding of lung field] 03-12-2024 Episodic Other non-traumatic joint disorders (12 sources) Rotator cuff arthropathy of right shoulder; Translations: [Other specific arthropathies, not elsewhere classified, right shoulder] 05-21-2023 Chronic Other non-traumatic joint disorders (5 sources) Other specific arthropathies, not elsewhere classified, right shoulder; Translations: [Other specified arthropathy, shoulder region] 05-21-2023 Chronic Other non-traumatic joint disorders (5 sources) Pain in right shoulder; Translations: [Pain in joint, shoulder region] 05-21-2023 Episodic Other nutritional; endocrine; and metabolic disorders (10 sources) Overweight in adulthood with body mass [...] specified parts of digestive tract] 06-20-2023 Episodic Comment on above: colon cancer Residual codes; unclassified (2 sources) Acquired absence of other specified parts of digestive tract; Translations: [Other postprocedural status] Episodic Spondylosis; intervertebral disc disorders; other back problems (20 sources) Lumbar spondylosis; Translations: [Spondylosis without myelopathy or radiculopathy, lumbar region] Chronic Spondylosis; intervertebral disc disorders; other back problems (3 sources) Neck pain; Translations: [Cervicalgia] 08-19-2024 Episodic Substance-related disorders (20 sources) Tobacco user; Translations: [...] 07-25-2023 05-21-2023 Episodic Other lower respiratory disease (17 sources) Dyspnea; Translations: [Shortness of breath] Onset: [...] adult] Onset: 11-07-2023 Episodic Residual codes; unclassified (5 sources) Family history of disorder; Translations: [Family history of ischemic heart disease and other diseases of the circulatory system] Onset: 11-07-2023 Resolved: 11-07-2023 11-07-2023 Episodic Screening and history of mental health and substance abuse codes (11 sources) Personal history of nicotine dependence; Translations: [Ex-smoker] Onset: 05-22-2022 11-07-2023 Episodic Syncope (7 sources) Near syncope; Translations: [Syncope and collapse] Onset: 12-20-2023 12-20-2023 Episodic Unclassified (20 sources) Acute bilateral low back pain without sciatica; Translations: [Acute bilateral low back pain without sciatica] Unclassified (1 source) Acute right-sided low back pain without sciatica M54.50 Unclassified (5 sources) Onset: 11-07-2023 Resolved: 08-05-2024 11-07-2023 Viral infection (20 sources) Disease caused by 2019-nCoV; Translations: [COVID-19] Results Test Name Value Interpretation Reference Range Facility Basophils Auto (Bld) [#/Vol] on 08-05-2024 Basophils (Bld) [#/Vol] Automated basophil count 0.0-0.1 [facility] Basophils (Bld) [#/Vol] 0.0 10 3/uL 0.0-0.1 [facility] Basophils/100 WBC Auto (Bld) on 08-05-2024 Basophils/100 WBC (Bld) Automated basophil % 0.2-2.0 [facility] Basophils/100 WBC (Bld) 0.6 % 0.2-2.0 [facility] Eosinophils/100 WBC Auto (Bl d)on 08-05-2024 Eosinophils/100 WBC (Bld) Automated eosinophil % 0.9-7.0 [facility] Eosinophils/100 WBC (Bld) 0.9 % 0.9-7.0 [facility] Erythrocyte distribution wid th Auto (RBC) [Ratio]on 08-05-2024 Erythrocyte distribution width (RBC) [Ratio] Erythrocyte distribution width [Ratio] by Automated count 11.0-15.0 [facility] Erythrocyte distribution width (RBC) [Ratio] 13.9 % 11.0-15.0 [facility] Estimated glomerular filtrat ion rate (GFR) non- Americanon 08-05-2024 GFR/1.73 sq M.predicted among non-blacks MDRD (S/P/Bld) [Vol rate/Area] Estimated glomerular filtration rate (GFR) non- Low >=60 mL/min/1.7 3m 2 [facility] GFR/1.73 sq M.predicted among non-blacks MDRD (S/P/Bld) [Vol rate/Area] 58 mL/min/{1.73_m2} Low >=60 mL/min/1.7 3m 2 [facility] Hematocrit Auto (Bld) [Volum e fraction]on 08-05-2024 Hematocrit (Bld) [Volume fraction] Hematocrit [Volume Fraction] of Blood by Automated count 36.0-48.0 [facility] Hematocrit (Bld) [Volume fraction] 39.6 % 36.0-48.0 [facility] Hemoglobin [Mass/volume] in Bloodon 08-05-2024 Hemoglobin (Bld) [Mass/Vol] Hemoglobin [Mass/volume] in Blood 12.0-16.0 [facility] Hemoglobin (Bld) [Mass/Vol] 13.3 g/dL 12.0-16.0 [facility] Laboratory - Chemistry and C hemistry - challengeon 08-05-2024 Calcium [Mass/Vol] 9.7 mg/dL 8.5-10.1 [facility] Chloride [Moles/Vol] 107 mmol/L 98-107 [facility] CO2 [Moles/Vol] 24.2 mmol/L 21.0-32.0 [facility] Creatinine [Mass/Vol] 0.92 mg/dL 0.55-1.02 [facility] GFR/1.73 sq M.predicted MDRD (S/P/Bld) [Vol rate/Area] mL/min/{1.73_m2} >=60 mL/min/1.7 3m 2 [facility] Glucose [Mass/Vol] 86 mg/dL 74-106 [facility] Potassium [Moles/Vol] 3.6 mmol/L 3.5-5.1 [facility] Sodium [Moles/Vol] 140 mmol/L 136-145 [facility] TSH Qn 1.563 m[IU]/L 0.358-3.74 0 [facility] Urea nitrogen [Mass/Vol] 15.0 mg/dL 7.0-18.0 [facility] Urea nitrogen/Creatinine [Mass ratio] 16.3 mg/mg [facility] Laboratory - Hematology and Cell countson 08-05-2024 Immature granulocytes/100 WBC (Bld) 0.2 % 0.0-0.5 [facility] Leukocytes [#/volume] correc kristi for nucleated erythrocytes in Blood by Automated counon 08-05-2024 WBC corrected for nucl RBC Auto (Bld) [#/Vol] Leukocytes [#/volume] corrected for nucleated erythrocytes in Blood by Automated coun 4.0-11.0 [facility] WBC corrected for nucl RBC Auto (Bld) [#/Vol] 6.3 10 3/uL 4.0-11.0 [facility] Lymphocytes Auto (Bld) [#/Vo l]on 08-05-2024 Lymphocytes (Bld) [#/Vol] Lymphocytes [#/volume] in Blood by Automated count 1.2-3.8 [facility] Lymphocytes (Bld) [#/Vol] 1.8 10 3/uL 1.2-3.8 [facility] Lymphocytes/100 WBC Auto (Bl d)on 08-05-2024 Lymphocytes/100 WBC (Bld) Lymphocytes/100 leukocytes in Blood by Automated count 20.5-60.0 [facility] Lymphocytes/100 WBC (Bld) 28.0 % 20.5-60.0 [facility] MCH Auto (RBC) [Entitic mass ]on 08-05-2024 MCH (RBC) [Entitic mass] MCH [Entitic mass] by Automated count 26.7-34.0 [facility] MCH (RBC) [Entitic mass] 32.5 pg 26.7-34.0 [facility] MCHC Auto (RBC) [Mass/Vol]on 08-05-2024 MCHC (RBC) [Mass/Vol] MCHC [Mass/volume] by Automated count 29.9-35.2 [facility] MCHC (RBC) [Mass/Vol] 33.6 g/dL 29.9-35.2 [facility] MCV Auto (RBC) [Entitic vol] on 08-05-2024 MCV (RBC) [Entitic vol] MCV [Entitic volume] by Automated count 81.0-99.0 [facility] MCV (RBC) [Entitic vol] 96.8 fL 81.0-99.0 [facility] [place] Auto (Bld) [#/Vol] on 08-05-2024 Monocytes (Bld) [#/Vol] Automated blood monocyte count 0.3-0.8 [facility] Monocytes (Bld) [#/Vol] 0.6 10 3/uL 0.3-0.8 [facility] Monocytes/100 WBC Auto (Bld) on 08-05-2024 Monocytes/100 WBC (Bld) Automated monocyte % 1.7-12.0 [facility] Monocytes/100 WBC (Bld) 9.7 % 1.7-12.0 [facility] Neutrophils Auto (Bld) [#/Vo l]on 08-05-2024 Neutrophils (Bld) [#/Vol] Neutrophils [#/volume] in Blood by Automated count 1.4-6.5 [facility] Neutrophils (Bld) [#/Vol] 3.8 10 3/uL 1.4-6.5 [facility] Neutrophils/100 WBC Auto (Bl d)on 08-05-2024 Neutrophils/100 WBC (Bld) Automated neutrophil % 43.0-75.0 [facility] Neutrophils/100 WBC (Bld) 60.6 % 43.0-75.0 [facility] No Panel Informationon 08-05 Eosinophils # (Auto) 0.1 10 3/uL 0.0-0.7 [facility] Immature Granulocyte # (Auto) 0.01 10 3/uL 0.00-0.03 [facility] Platelet mean volume Auto (B ld) [Entitic vol]on 08-05-2024 Platelet mean volume (Bld) [Entitic vol] Platelet mean volume [Entitic volume] in Blood by Automated count 9.5-13.5 [facility] Platelet mean volume (Bld) [Entitic vol] 9.8 fL 9.5-13.5 [facility] Platelets Auto (Bld) [#/Vol] on 08-05-2024 Platelets (Bld) [#/Vol] Platelets [#/volume] in Blood by Automated count 150-450 [facility] Platelets (Bld) [#/Vol] 265 10 3/uL 150-450 [facility] RBC Auto (Bld) [#/Vol]on RBC (Bld) [#/Vol] Erythrocytes [#/volu me] in Blood by Automated count Low 4.20-5.40 [facility] RBC (Bld) [#/Vol] 4.09 10 6/uL Low 4.20-5.40 [facility] Serum or plasma anion gap de terminationon 08-05-2024 Anion gap [Moles/Vol] Serum or plasma an ion gap determination [facility] Anion gap [Moles/Vol] 12.4 mmol/L Fi [facility] Basophils Auto (Bld) [#/Vol] on 04-28-2024 Basophils (Bld) [#/Vol] Automated basophil count 0.0-0.1 [facility] Basophils/100 WBC Auto (Bld) on 04-28-2024 Basophils/100 WBC (Bld) Automated basophil % 0.2-2.0 [facility] Eosinophils/100 WBC Auto (Bl d)on 04-28-2024 Eosinophils/100 WBC (Bld) Automated eosinophil % Low 0.9-7.0 [facility] Erythrocyte distribution wid th Auto (RBC) [Ratio]on 04-28-2024 Erythrocyte distribution width (RBC) [Ratio] Erythrocyte distribution width [Ratio] by Automated count 11.0-15.0 [facility] Hematocrit Auto (Bld) [Volum e fraction]on 04-28-2024 Hematocrit (Bld) [Volume fraction] Hematocrit [Volume Fraction] of Blood by Automated count 36.0-48.0 [facility] Hemoglobin [Mass/volume] in Bloodon 04-28-2024 Hemoglobin (Bld) [Mass/Vol] Hemoglobin [Mass/volume] in Blood 12.0-16.0 [facility] Laboratory - Chemistry and C hemistry - challengeon 04-28-2024 Cobalamin (Vitamin B12) [Mass/Vol] 811 pg/mL 232-1245 [facility] Comment on above: Performed at: [address] [id number] Director: Aime Fabian PhD, Phone: [phone] TSH Qn 2.025 m[IU]/L 0.358-3.74 0 [facility] Laboratory - Hematology and Cell countson 04-28-2024 Immature granulocytes/100 WBC (Bld) 0.1 % 0.0-0.5 [facility] Leukocytes [#/volume] correc kristi for nucleated erythrocytes in Blood by Automated counon 04-28-2024 WBC corrected for nucl RBC Auto (Bld) [#/Vol] Leukocytes [#/volume] corrected for nucleated erythrocytes in Blood by Automated coun 4.0-11.0 [facility] Lymphocytes Auto (Bld) [#/Vo l]on 04-28-2024 Lymphocytes (Bld) [#/Vol] Lymphocytes [#/volume] in Blood by Automated count 1.2-3.8 [facility] Lymphocytes/100 WBC Auto (Bl d)on 04-28-2024 Lymphocytes/100 WBC (Bld) Lymphocytes/100 leukocytes in Blood by Automated count 20.5-60.0 [facility] MCH Auto (RBC) [Entitic mass ]on 04-28-2024 MCH (RBC) [Entitic mass] MCH [Entitic mass] by Automated count 26.7-34.0 [facility] MCHC Auto (RBC) [Mass/Vol]on 04-28-2024 MCHC (RBC) [Mass/Vol] MCHC [Mass/volume] by Automated count 29.9-35.2 [facility] MCV Auto (RBC) [Entitic vol] on 04-28-2024 MCV (RBC) [Entitic vol] MCV [Entitic volume] by Automated count 81.0-99.0 [facility] Monocytes Auto (Bld) [#/Vol] on 04-28-2024 Monocytes (Bld) [#/Vol] Automated blood monocyte count 0.3-0.8 [facility] Monocytes/100 WBC Auto (Bld) on 04-28-2024 Monocytes/100 WBC (Bld) Automated monocyte % 1.7-12.0 [facility] Neutrophils Auto (Bld) [#/Vo l]on 04-28-2024 Neutrophils (Bld) [#/Vol] Neutrophils [#/volume] in Blood by Automated count 1.4-6.5 [facility] Neutrophils/100 WBC Auto (Bl d)on 04-28-2024 Neutrophils/100 WBC (Bld) Automated neutrophil % 43.0-75.0 [facility] No Panel Informationon 04-28 Eosinophils # (Auto) 0.1 10 3/uL 0.0-0.7 [facility] Immature Granulocyte # (Auto) 0.01 10 3/uL 0.00-0.03 [facility] Platelet mean volume Auto (B ld) [Entitic vol]on 04-28-2024 Platelet mean volume (Bld) [Entitic vol] Platelet mean volume [Entitic volume] in Blood by Automated count 9.5-13.5 [facility] Platelets Auto (Bld) [#/Vol] on 04-28-2024 Platelets (Bld) [#/Vol] Platelets [#/volume] in Blood by Automated count 150-450 [facility] RBC Auto (Bld) [#/Vol]on RBC (Bld) [#/Vol] Erythrocytes [#/volu me] in Blood by Automated count Low 4.20-5.40 [facility] Serum or plasma methylmalona te measurement (moles/volume)on 04-28-2024 Methylmalonate [Moles/Vol] Serum or plasma methylmalonate measurement (moles/volume) 0-378 [facility] Comment on above: This test was develo ped and its performance characteristicsdetermined by [employer]. It has not been cleared orapproved by the Food and Drug Administration.Performed at: [address] [id number] Director: Guanaco Russell MD, Phone: [phone] Basophils Auto (Bld) [#/Vol] on 03-12-2024 Basophils (Bld) [#/Vol] Automated basophil count 0.0-0.1 [facility] Basophils/100 WBC Auto (Bld) on 03-12-2024 Basophils/100 WBC (Bld) Automated basophil % 0.2-2.0 [facility] Cholesterol in LDL Calc [Mas s/Vol]on 03-12-2024 Cholesterol in LDL [Mass/Vol] Cholesterol in LDL [Mass/volume] in Serum or Plasma by calculation [facility] Comment on above: <100 mg/dl [id number] 0-129 mg/dl NEAR OR ABOVE [id number] mg/dl BORDERLINE [id number] mg/dl HIGH>190 mg/dl VERY HIGH Cholesterol in VLDL Calc [Ma ss/Vol]on 03-12-2024 Cholesterol in VLDL [Mass/Vol] Cholesterol in VLDL [Mass/volume] in Serum or Plasma by calculation [facility] Eosinophils/100 WBC Auto (Bl d)on 03-12-2024 Eosinophils/100 WBC (Bld) Automated eosinophil % Low 0.9-7.0 [facility] Erythrocyte distribution wid th Auto (RBC) [Ratio]on 03-12-2024 Erythrocyte distribution width (RBC) [Ratio] Erythrocyte distribution width [Ratio] by Automated count 11.0-15.0 [facility] Estimated glomerular filtrat ion rate (GFR) non- Americanon 03-12-2024 GFR/1.73 sq M.predicted among non-blacks MDRD (S/P/Bld) [Vol rate/Area] Estimated glomerular filtration rate (GFR) non- Low >=60 mL/min/1.7 3m 2 [facility] Globulin Calc (S) [Mass/Vol] on 03-12-2024 Globulin (S) [Mass/Vol] Serum globulin measurement by calculation (mass/volume) [facility] Hematocrit Auto (Bld) [Volum e fraction]on 03-12-2024 Hematocrit (Bld) [Volume fraction] Hematocrit [Volume Fraction] of Blood by Automated count 36.0-48.0 [facility] Hemoglobin [Mass/volume] in Bloodon 03-12-2024 Hemoglobin (Bld) [Mass/Vol] Hemoglobin [Mass/volume] in Blood 12.0-16.0 [facility] IgA [Mass/volume] in Serum o r Plasmaon 03-12-2024 IgA [Mass/Vol] IgA [Mass/volume] in Serum or Plasma 64-422 [facility] Comment on above: Performed at: [facility] [address] [id number] Director: Aime Fabian PhD, Phone: [phone] Laboratory - Chemistry and C hemistry - challengeon 03-12-2024 Albumin [Mass/Vol] 3.5 g/dL 3.4-5.0 [facility] ALP [Catalytic activity/Vol] 123 U/L High 46-116 [facility] ALT [Catalytic activity/Vol] 32 U/L 14-59 [facility] AST [Catalytic activity/Vol] 17 U/L 15-37 [facility] Bilirubin [Mass/Vol] 0.6 mg/dL 0.2-1.0 [facility] Calcium [Mass/Vol] 9.1 mg/dL 8.5-10.1 [facility] Chloride [Moles/Vol] 107 mmol/L 98-107 [facility] Cholesterol [Mass/Vol] 199 mg/dL <=200 [facility] Cholesterol in HDL [Mass/Vol] 128 mg/dL High 40-60 [facility] Comment on above: > or =60 mg/dl - LOW CARDIOVASCULAR RISK<40 mg/dl - HIGH CARDIOVASCULAR RISK CO2 [Moles/Vol] 25.5 mmol/L 21.0-32.0 [facility] Creatinine [Mass/Vol] 0.97 mg/dL 0.55-1.02 [facility] GFR/1.73 sq M.predicted MDRD (S/P/Bld) [Vol rate/Area] mL/min/{1.73_m2} >=60 mL/min/1.7 3m 2 [facility] Glucose [Mass/Vol] 91 mg/dL 74-106 [facility] Potassium [Moles/Vol] 3.7 mmol/L 3.5-5.1 [facility] Protein [Mass/Vol] 6.8 g/dL 6.4-8.2 [facility] Sodium [Moles/Vol] 143 mmol/L 136-145 [facility] Triglyceride [Mass/Vol] 65 mg/dL <=150 [facility] Urea nitrogen [Mass/Vol] 15.0 mg/dL 7.0-18.0 [facility] Urea nitrogen/Creatinine [Mass ratio] 15.5 mg/mg [facility] Laboratory - Hematology and Cell countson 03-12-2024 Immature granulocytes/100 WBC (Bld) 0.1 % 0.0-0.5 [facility] Leukocytes [#/volume] correc kristi for nucleated erythrocytes in Blood by Automated counon 03-12-2024 WBC corrected for nucl RBC Auto (Bld) [#/Vol] Leukocytes [#/volume] corrected for nucleated erythrocytes in Blood by Automated coun 4.0-11.0 [facility] Lymphocytes Auto (Bld) [#/Vo l]on 03-12-2024 Lymphocytes (Bld) [#/Vol] Lymphocytes [#/volume] in Blood by Automated count 1.2-3.8 [facility] Lymphocytes/100 WBC Auto (Bl d)on 03-12-2024 Lymphocytes/100 WBC (Bld) Lymphocytes/100 leukocytes in Blood by Automated count 20.5-60.0 [facility] MCH Auto (RBC) [Entitic mass ]on 03-12-2024 MCH (RBC) [Entitic mass] MCH [Entitic mass] by Automated count 26.7-34.0 [facility] MCHC Auto (RBC) [Mass/Vol]on 03-12-2024 MCHC (RBC) [Mass/Vol] MCHC [Mass/volume] by Automated count 29.9-35.2 [facility] MCV Auto (RBC) [Entitic vol] on 03-12-2024 MCV (RBC) [Entitic vol] MCV [Entitic volume] by Automated count 81.0-99.0 [facility] Monocytes Auto (Bld) [#/Vol] on 03-12-2024 Monocytes (Bld) [#/Vol] Automated blood monocyte count 0.3-0.8 [facility] Monocytes/100 WBC Auto (Bld) on 03-12-2024 Monocytes/100 WBC (Bld) Automated monocyte % 1.7-12.0 [facility] Neutrophils Auto (Bld) [#/Vo l]on 03-12-2024 Neutrophils (Bld) [#/Vol] Neutrophils [#/volume] in Blood by Automated count 1.4-6.5 [facility] Neutrophils/100 WBC Auto (Bl d)on 03-12-2024 Neutrophils/100 WBC (Bld) Automated neutrophil % 43.0-75.0 [facility] No Panel Informationon 03-12 Endomysial IgA Antibody Negative Negative [facility] Eosinophils # (Auto) 0.1 10 3/uL 0.0-0.7 [facility] Immature Granulocyte # (Auto) 0.01 10 3/uL 0.00-0.03 [facility] Platelet mean volume Auto (B ld) [Entitic vol]on 03-12-2024 Platelet mean volume (Bld) [Entitic vol] Platelet mean volume [Entitic volume] in Blood by Automated count 9.5-13.5 [facility] Platelets Auto (Bld) [#/Vol] on 03-12-2024 Platelets (Bld) [#/Vol] Platelets [#/volume] in Blood by Automated count 150-450 [facility] RBC Auto (Bld) [#/Vol]on RBC (Bld) [#/Vol] Erythrocytes [#/volu me] in Blood by Automated count Low 4.20-5.40 [facility] Serum gliadin peptide IgA an tibody assay (units/volume)on 03-12-2024 Gliadin peptide IgA Qn (S) Serum gliadin peptide IgA antibody assay (units/volume) [facility] Comment on above: Negative 0 - 19 Weak Positive 20 - 30 Moderate to Strong Positive >30 Serum gliadin peptide IgG an tibody assay (units/volume)on 03-12-2024 Gliadin peptide IgG Qn (S) Serum gliadin peptide IgG antibody assay (units/volume) [facility] Comment on above: Negative 0 - 19 Weak Positive 20 - 30 Moderate to Strong Positive >30 Serum or plasma albumin/glob ulin mass ratioon 03-12-2024 Albumin/Globulin [Mass ratio] Serum or plasma albumin/globulin mass ratio [facility] Serum or plasma anion gap de terminationon 03-12-2024 Anion gap [Moles/Vol] Serum or plasma an ion gap determination [facility] Serum or plasma total choles terol/high density lipoprotein (HDL) cholesterol mass henry 03-12-2024 Cholesterol.total/Cho lesterol in HDL [Mass ratio] Serum or plasma total cholesterol/high density lipoprotein (HDL) cholesterol mass rat [facility] Comment on above: 3.3 - 4.4 LOW RISK4. 4 - 7.1 AVERAGE RISK7.1 - 11.0 MODERATE RISK>11.0 HIGH RISK Serum tissue transglutaminas e (tTG) IgA antibody assay (units/volume)on 03-12-2024 tTG IgA Qn (S) Serum tissue transglutaminase (tTG) IgA antibody assay (units/volume) 0-3 [facility] Comment on above: Negative 0 - 3 Weak Positive 4 - 10 Positive >10 Tissue Transglutaminase (tTG) has been identified as the endomysial antigen. Studies have demonstr- ated that endomysial IgA antibodies have over 99% specificity for gluten sensitive enteropathy. Serum tissue transglutaminas e (tTG) IgG antibody assay (units/volume)on 03-12-2024 tTG IgG Qn (S) Serum tissue transglutaminase (tTG) IgG antibody assay (units/volume) Abnormal 0-5 [facility] Comment on above: Negative 0 - 5 Weak Positive 6 - 9 Positive >9 ECG 12 Leadon 12-20-2023 Normal sinus rhythm, leftward axis, low voltage, nonspecific ST-T wave abnormality, abnormal ECG [facility] Work Phone: Activated partial thrombopla stin time (aPTT) in platelet poor plasma by coagulation aOrdered By: PROVIDER TEMP on 11-05-2023 aPTT Coag (PPP) [Time] 30.2 s 25.1-36.5 [facility] Comment on above: A hematocrit value g reater than 55% may lead to inaccurate results in coagulation testing. Patients having hematocrit values >55% require a special collection tube for coagulation studies. Please contact the laboratory at [phone] for redraw instructions. Alanine aminotransferase [En zymatic activity/volume] in Serum or PlasmaOrdered By: PROVIDER TEMP on 11-05-2023 ALT [Catalytic activity/Vol] 27 U/L Normal 7-52 [facility] Comment on above: Performed By: #### P TT, HS TROP, CBC, PT, BNP, CMP, CK #### [address] Albumin [Mass/volume] in Ser um or Plasma by Bromocresol green (BCG) dye binding methoOrdered By: PROVIDER TEMP on 11-05-2023 Albumin BCG dye [Mass/Vol] 4.1 g/dL 3.5-5.7 [facility] Alkaline phosphatase [Enzyma tic activity/volume] in Serum or PlasmaOrdered By: PROVIDER TEMP on 11-05-2023 ALP [Catalytic activity/Vol] 99 U/L Normal 34-104 [facility] Comment on above: Performed By: #### P TT, HS TROP, CBC, PT, BNP, CMP, CK #### [address] Aspartate aminotransferase [ Enzymatic activity/volume] in Serum or PlasmaOrdered By: PROVIDER TEMP on 11-05-2023 AST [Catalytic activity/Vol] 19 U/L Normal 13-39 [facility] Comment on above: Performed By: #### P TT, HS TROP, CBC, PT, BNP, CMP, CK #### [address] Automated basophil %Ordered By: PROVIDER TEMP on 11-05-2023 Basophils/100 WBC (Bld) 0.8 % Normal . [facility] Comment on above: Performed By: #### P TT, HS TROP, CBC, PT, BNP, CMP, CK #### [address] Automated basophil countOrde red By: PROVIDER TEMP on 11-05-2023 Basophils (Bld) [#/Vol] 0.1 10*3/uL Normal 0.0-0.2 [facility] Comment on above: Result Comment: PERF ORMED BY: [place] [address] PATHOLOGIST FIELD OPERATIONS TECHNICIAN KAYLIN ARDON M.D. Performed By: #### P TT, HS TROP, CBC, PT, BNP, CMP, CK #### [address] Automated blood monocyte cou ntOrdered By: PROVIDER TEMP on 11-05-2023 Monocytes (Bld) [#/Vol] 0.6 10*3/uL Normal 0.0-0.8 [facility] Comment on above: Performed By: #### P TT, HS TROP, CBC, PT, BNP, CMP, CK #### [place] [id number] [place] Automated eosinophil %Ordere d By: PROVIDER TEMP on 11-05-2023 Eosinophils/100 WBC (Bld) 0.8 % Normal . [facility] Comment on above: Performed By: #### P TT, HS TROP, CBC, PT, BNP, CMP, CK #### [address] Automated eosinophil countOr dered By: PROVIDER TEMP on 11-05-2023 Eosinophils (Bld) [#/Vol] 0.1 10*3/uL Normal 0.0-0.45 [facility] Comment on above: Performed By: #### P TT, HS TROP, CBC, PT, BNP, CMP, CK #### [address] Automated monocyte %Ordered By: PROVIDER TEMP on 11-05-2023 Monocytes/100 WBC (Bld) 9.6 % Normal . [facility] Comment on above: Performed By: #### P TT, HS TROP, CBC, PT, BNP, CMP, CK #### [address] Automated neutrophil %Ordere d By: PROVIDER TEMP on 11-05-2023 Neutrophils/100 WBC (Bld) 73.8 % Normal . [facility] Comment on above: Performed By: #### P TT, HS TROP, CBC, PT, BNP, CMP, CK #### [address] BNP ser/plasOrdered By: PROV IDER TEMP on 11-05-2023 Natriuretic peptide B (Bld) [Mass/Vol] 293.0 pg/mL High 5-100 [facility] Comment on above: Result Comment: PERF ORMED BY: [place] [address] PATHOLOGIST FIELD OPERATIONS TECHNICIAN KAYLIN ARDON M.D. Performed By: #### P TT, HS TROP, CBC, PT, BNP, CMP, CK #### [address] Bilirubin.total [Mass/volume ] in Serum or PlasmaOrdered By: PROVIDER TEMP on 11-05-2023 Bilirubin [Mass/Vol] 0.5 mg/dL Normal 0.3-1.0 [facility] Comment on above: Performed By: #### P TT, HS TROP, CBC, PT, BNP, CMP, CK #### [facility] [address] [place] [id number] [facility] CT angio chest PE protocolon 11-05-2023 CT angio chest PE protocol [facility] [place] [address] [place] [address] CT Scan Report Signed Patient: Genny Brewer MR#: [id number] : 1940 Acct:[id number] Age/Sex: 83 / F ADM Date: 11/05/23 Loc: ER Room: Type: [facility] ER Attending Dr: Copies to: [...] Endy Crowley M.D.11/05/2023 10:53 AM Dictation Location: [place] [address] Transcribed By: [facility] 11/05/23 1053 Dictated By: Endy Crowley II, MD 11/05/23 1045 Signed By: 11/05/23 1053 Normal [facility] Calcium [Mass/volume] in Ser um or PlasmaOrdered By: PROVIDER TEMP on 11-05-2023 Calcium [Mass/Vol] 9.6 mg/dL Normal 8.6-10.3 [facility] Comment on above: Performed By: #### P TT, HS TROP, CBC, PT, BNP, CMP, CK #### [facility] [address] [place] [address] Carbon dioxide, total [Moles /volume] in Serum or PlasmaOrdered By: PROVIDER TEMP on 11-05-2023 CO2 [Moles/Vol] 22.2 mmol/L Normal 21.0-31.0 [facility] Comment on above: Performed By: #### P TT, HS TROP, CBC, PT, BNP, CMP, CK #### [facility] [address] [place] [id number] [place] Chloride [Moles/volume] in S carolyne or PlasmaOrdered By: PROVIDER TEMP on 11-05-2023 Chloride [Moles/Vol] 109 mmol/L High 98-107 [facility] Comment on above: Performed By: #### P TT, HS TROP, CBC, PT, BNP, CMP, CK #### [facility] [address] [place] [address] Complete Blood Count Auto Di ffon 11-05-2023 Mean Corpuscular HGB Conc 34.2 g/dL Normal 32.0-35.0 [facility] Comment on above: Performed By: #### P TT, HS TROP, CBC, PT, BNP, CMP, CK #### [address] Monocytes/100 WBC (Bld) 20.41 % High 0.00-20.00 [facility] Comment on above: Result Comment: For adults in ED, MDW > 20.0 may be associated with a higher risk of sepsis during the first 12 hrs of hospital admission Performed By: #### P TT, HS TROP, CBC, PT, BNP, CMP, CK #### [address] NRBC% 0.1 /100{WBC} Normal 0-0.5 [facility] Comment on above: Performed By: #### P TT, HS TROP, CBC, PT, BNP, CMP, CK #### [address] Comprehensive Metabolic Pane david 11-05-2023 Albumin [Mass/Vol] 4.1 g/dL Normal 3.5-5.7 [facility] Comment on above: Performed By: #### P TT, HS TROP, CBC, PT, BNP, CMP, CK #### [address] Creatinine Clr Calc Pharmacy 42.53 Normal [facility] Comment on above: Result Comment: PERF ORMED BY: [place] [address] PATHOLOGIST FIELD OPERATIONS TECHNICIAN KAYLIN ARDON M.D. Performed By: #### P TT, HS TROP, CBC, PT, BNP, CMP, CK #### [address] GFR/1.73 sq M.predicted MDRD (S/P/Bld) [Vol rate/Area] mL/min/{1.73_m2} Normal [facility] Comment on above: Performed By: #### P TT, HS TROP, CBC, PT, BNP, CMP, CK #### [facility] [address] Creatine kinase [Enzymatic a ctivity/volume] in Serum or PlasmaOrdered By: PROVIDER TEMP on 11-05-2023 CK [Catalytic activity/Vol] 66 U/L Normal 30-223 [facility] Comment on above: Performed By: #### P TT, HS TROP, CBC, PT, BNP, CMP, CK #### [facility] [address] Creatinine [Mass/volume] in Serum or PlasmaOrdered By: PROVIDER TEMP on 11-05-2023 Creatinine [Mass/Vol] 0.87 mg/dL Normal 0.60-1.20 [facility] Comment on above: Performed By: #### P TT, HS TROP, CBC, PT, BNP, CMP, CK #### [address] ECG 12 lead ECGon 11-05-2023 ECG 12 lead ECG [facility] Main [place] [address] [place] [address] Electrocardiograph Report Signed Patient: Genny Brewer MR#: [id number] : 1940 Acct:[id number] Age/Sex: 83 / F ADM Date: 11/05/23 Loc: ER Room: Type: [facility] ER Attending Dr: Ordering Provider: Rona [...] By Sim Gimenez DO 1144 Normal [facility] Erythrocyte distribution wid th [Ratio] by Automated countOrdered By: PROVIDER TEMP on 11-05-2023 Erythrocyte distribution width (RBC) [Ratio] 13.4 % Normal 11.9-15.3 [facility] Comment on above: Performed By: #### P TT, HS TROP, CBC, PT, BNP, CMP, CK #### [facility] [address] Erythrocytes [#/volume] in B lood by Automated countOrdered By: PROVIDER TEMP on 11-05-2023 RBC (Bld) [#/Vol] 4.19 10*6/uL Normal 3.60-5.00 [facility] Comment on above: Performed By: #### P TT, HS TROP, CBC, PT, BNP, CMP, CK #### [facility] [address] Glucose [Mass/volume] in Ser um or PlasmaOrdered By: PROVIDER TEMP on 11-05-2023 Glucose [Mass/Vol] 104 mg/dL High 70-100 [facility] Comment on above: ADA recommended refe rence rangeRandom Glucose Reference Range is dependent on time and content of last meal. Glucose of more than 200 mg/dL in a nonstressed, ambulatory subject supports the diagnosis of Diabetes Mellitus. Result Comment: [place] om Glucose Reference Range is dependent on time and content of last meal. Glucose of more than 200 mg/dL in a nonstressed, ambulatory subject supports the diagnosis of Diabetes Mellitus. ADA recommended reference range Performed By: #### P TT, HS TROP, CBC, PT, BNP, CMP, CK #### [facility] [address] [place] [address] [place] Hematocrit [Volume Fraction] of Blood by Automated countOrdered By: PROVIDER TEMP on 11-05-2023 Hematocrit (Bld) [Volume fraction] 40.1 % Normal 34.0-46.4 [facility] Comment on above: Performed By: #### P TT, HS TROP, CBC, PT, BNP, CMP, CK #### [facility] [address] Hemoglobin [Mass/volume] in BloodOrdered By: PROVIDER TEMP on 11-05-2023 Hemoglobin (Bld) [Mass/Vol] 13.7 g/dL Normal 11.8-15.4 [facility] Comment on above: Performed By: #### P TT, HS TROP, CBC, PT, BNP, CMP, CK #### [facility] [address] INR in Platelet poor plasma by Coagulation assayOrdered By: PROVIDER TEMP on 11-05-2023 INR Coag (PPP) [Relative time] 0.9 {INR} Normal [facility] Comment on above: INR Therapeutic Rang e [...] L IPID, CBC, HS TROP, BMP #### [facility] [address] Leukocytes [#/volume] correc kristi for nucleated erythrocytes in Blood by Automated counOrdered By: PROVIDER TEMP on 11-05-2023 WBC corrected for nucl RBC Auto (Bld) [#/Vol] 6.7 10*3/uL 3.8-11.6 [facility] Leukocytes [#/volume] in Blo od by Automated countOrdered By: PROVIDER TEMP on 11-05-2023 WBC (Bld) [#/Vol] 6.7 10*3/uL Normal 3.8-11.6 [facility] Comment on above: Performed By: #### P TT, HS TROP, CBC, PT, BNP, CMP, CK #### [address] Lymphocytes [#/volume] in Bl ood by Automated countOrdered By: PROVIDER TEMP on 11-05-2023 Lymphocytes (Bld) [#/Vol] 1.0 10*3/uL Normal 1.00-4.8 [facility] Comment on above: Performed By: #### P TT, HS TROP, CBC, PT, BNP, CMP, CK #### [address] Lymphocytes/100 leukocytes i n Blood by Automated countOrdered By: PROVIDER TEMP on 11-05-2023 Lymphocytes/100 WBC (Bld) 15.0 % Normal . [facility] Comment on above: Performed By: #### P TT, HS TROP, CBC, PT, BNP, CMP, CK #### [address] MCH [Entitic mass] by Automa kristi countOrdered By: PROVIDER TEMP on 11-05-2023 MCH (RBC) [Entitic mass] 32.6 pg Normal 24.7-34.3 [facility] Comment on above: Performed By: #### P TT, HS TROP, CBC, PT, BNP, CMP, CK #### [address] MCHC Auto (RBC) [Mass/Vol]Or dered By: PROVIDER TEMP on 11-05-2023 MCHC (RBC) [Mass/Vol] 34.2 g/dL 32.0-35.0 [facility] MCV [Entitic volume] by Auto mated countOrdered By: PROVIDER TEMP on 11-05-2023 MCV (RBC) [Entitic vol] 95.5 fL Normal 80-100 [facility] Comment on above: Performed By: #### P TT, HS TROP, CBC, PT, BNP, CMP, CK #### [facility] [address] [place] [address] [place] Monocyte distribution width [Entitic volume] in Blood by AutomatedOrdered By: PROVIDER TEMP on 11-05-2023 Monocyte distribution width Auto (Bld) [Entitic vol] 20.41 % High 0.00-20.00 [facility] Comment on above: For adults in ED, MD W > 20.0 may be associated with a higher risk of sepsis during the first 12 hrs of hospital admission Neutrophils [#/volume] in Bl ood by Automated countOrdered By: PROVIDER TEMP on 11-05-2023 Neutrophils (Bld) [#/Vol] 5.0 10*3/uL Normal 1.8-7.7 [facility] Comment on above: Performed By: #### P TT, HS TROP, CBC, PT, BNP, CMP, CK #### [facility] [address] No Panel InformationOrdered By: PROVIDER TEMP on 11-05-2023 Estimated GFR (CKD-EPI) > 60.0 mL/Min [facility] Creatinine Clearance (Chem 42.53 [facility] Nucleated erythrocytes [Pres ence] in Blood by Automated countOrdered By: PROVIDER TEMP on 11-05-2023 Nucleated RBC Auto Ql (Bld) 0.1 /100{WBC} 0-0.5 [facility] Partial Thromboplastin Timeo n 11-05-2023 aPTT Coag (Bld) [Time] 30.2 s Normal 25.1-36.5 [facility] Comment on above: Result Comment: A he matocrit value greater than 55% may lead to inaccurate results in coagulation testing. Patients having hematocrit values >55% require a special collection tube for coagulation studies. Please contact the laboratory at [phone] for redraw instructions. PERFORMED BY: [place] [address] PATHOLOGIST FIELD OPERATIONS TECHNICIAN KAYLIN ARDON M.D. Performed By: #### L IPID, CBC, HS TROP, BMP #### [facility] [address] [place] [address] Platelet mean volume [Entiti c volume] in Blood by Automated countOrdered By: PROVIDER TEMP on 11-05-2023 Platelet mean volume (Bld) [Entitic vol] 8.0 fL Normal 6.3-10.7 [facility] Comment on above: Performed By: #### P TT, HS TROP, CBC, PT, BNP, CMP, CK #### [facility] [address] Platelets [#/volume] in Bloo d by Automated countOrdered By: PROVIDER TEMP on 11-05-2023 Platelets (Bld) [#/Vol] 314 10*3/uL Normal 150-450 [facility] Comment on above: Performed By: #### P TT, HS TROP, CBC, PT, BNP, CMP, CK #### [facility] [address] Potassium [Moles/volume] in Serum or PlasmaOrdered By: PROVIDER TEMP on 11-05-2023 Potassium [Moles/Vol] 4.3 mmol/L Normal 3.5-5.1 [facility] Comment on above: Performed By: #### P TT, HS TROP, CBC, PT, BNP, CMP, CK #### [facility] [address] Protein [Mass/volume] in Ser um or PlasmaOrdered By: PROVIDER TEMP on 11-05-2023 Protein [Mass/Vol] 6.8 g/dL Normal 6.4-8.9 [facility] Comment on above: Performed By: #### P TT, HS TROP, CBC, PT, BNP, CMP, CK #### [facility] [address] Prothrombin time (PT)Ordered By: PROVIDER TEMP on 11-05-2023 PT Coag (PPP) [Time] 11.0 s Normal 9.0-12.9 [facility] Comment on above: A hematocrit value g reater than 55% may lead to inaccurate results in coagulation testing. Patients having hematocrit values >55% require a special collection tube for coagulation studies. Please contact the laboratory at [phone] for redraw instructions. Result Comment: A he matocrit value greater than 55% may lead to inaccurate results in coagulation testing. Patients having hematocrit values >55% require a special collection tube for coagulation studies. Please contact the laboratory at [phone] for redraw instructions. Performed By: #### L IPID, CBC, HS TROP, BMP #### [address] Serum globulin measurement b y calculation (mass/volume)Ordered By: PROVIDER TEMP on 11-05-2023 Globulin (S) [Mass/Vol] 2.7 g/dL [facility] Comment on above: Performed By: #### P TT, HS TROP, CBC, PT, BNP, CMP, CK #### [address] Serum or plasma albumin/glob ulin mass ratioOrdered By: PROVIDER TEMP on 11-05-2023 Albumin/Globulin [Mass ratio] 1.5 {ratio} [facility] Comment on above: Performed By: #### P TT, HS TROP, CBC, PT, BNP, CMP, CK #### [address] Serum or plasma anion gap de terminationOrdered By: PROVIDER TEMP on 11-05-2023 Anion gap [Moles/Vol] 12.1 mmol/L Normal 6.0-15.0 [facility] Comment on above: Performed By: #### P TT, HS TROP, CBC, PT, BNP, CMP, CK #### [address] Sodium [Moles/volume] in Ser um or PlasmaOrdered By: PROVIDER TEMP on 11-05-2023 Sodium [Moles/Vol] 139 mmol/L Normal 136-145 [facility] Comment on above: Performed By: #### P TT, HS TROP, CBC, PT, BNP, CMP, CK #### [address] Troponin I High Sensitivityo n 11-05-2023 Troponin I High Sensitivity 36.1 pg/mL High 0.0-15.0 [facility] Comment on above: Result Comment: PERF ORMED BY: [place] [address] PATHOLOGIST FIELD OPERATIONS TECHNICIAN KAYLIN ARDON M.D. Performed By: #### L IPID, CBC, HS TROP, BMP #### [facility] [address] [place] [address] Troponin I High Sensitivity 34.8 pg/mL High 0.0-15.0 [facility] Comment on above: Result Comment: PERF ORMED BY: [place] [address] PATHOLOGIST FIELD OPERATIONS TECHNICIAN KAYLIN ARDON M.D. Performed By: #### P TT, HS TROP, CBC, PT, BNP, CMP, CK #### [facility] [address] [place] [address] Troponin I.cardiac [Mass/vol ume] in Serum or Plasma by Detection limit <= 0.01 ng/Ordered By: Rona Andres on 11-05-2023 Troponin I.cardiac DL <= 0.01 ng/mL [Mass/Vol] 36.1 pg/mL High 0.0-15.0 [facility] Urea nitrogen [Mass/volume] in Serum or PlasmaOrdered By: PROVIDER ANGEL on 11-05-2023 Urea nitrogen [Mass/Vol] 20 mg/dL Normal 7-25 [facility] Comment on above: Performed By: #### P TT, HS TROP, CBC, PT, BNP, CMP, CK #### [place] [id number] [facility] XR chest 1V portableon 11-04 XR chest 1V portable [facility] [place] [address] XRay Report Signed Patient: Genny Brewer MR#: [id number] : 1940 Acct:[id number] Age/Sex: 83 / F ADM Date: 11/05/23 Loc: ER Room: Type: PRE ER Attending Dr: Copies to: ANGEL PROVIDER Ordering Provider: MEGGAN ORTIZ Date of Service: [...] Antonio Martinez M.D.11/05/2023 7:45 AM Dictation Location: [place] [address] Transcribed By: [facility] 11/05/23 0745 Dictated By: Juan Antonio Martinez DO 11/05/23 0743 Signed By: 11/05/2345 Normal [facility] Automated basophil %Ordered By: Reji Saenz on 10-29-2023 Basophils/100 WBC (Bld) 0.7 % Normal . [facility] Comment on above: Performed By: #### L IPID, CBC, HS TROP, BMP #### [facility] [address] [place] [address] Automated basophil countOrde red By: Reji Saenz on 10-29-2023 Basophils (Bld) [#/Vol] 0.1 10*3/uL Normal 0.0-0.2 [facility] Comment on above: Result Comment: PERF ORMED BY: [place] [address] PATHOLOGIST FIELD OPERATIONS TECHNICIAN KAYLIN ARDON M.D. Performed By: #### L IPID, CBC, HS TROP, BMP #### [facility] [address] [place] [address] Automated blood monocyte cou ntOrdered By: Reji Saenz on 10-29-2023 Monocytes (Bld) [#/Vol] 0.8 10*3/uL Normal 0.0-0.8 [facility] Comment on above: Performed By: #### L IPID, CBC, HS TROP, BMP #### [facility] [address] [place] [address] [place] Automated eosinophil %Ordere d By: Reji Saenz on 10-29-2023 Eosinophils/100 WBC (Bld) 0.6 % Normal . [facility] Comment on above: Performed By: #### L IPID, CBC, HS TROP, BMP #### [address] Automated eosinophil countOr dered By: Reji Saenz on 10-29-2023 Eosinophils (Bld) [#/Vol] 0.0 10*3/uL Normal 0.0-0.45 [facility] Comment on above: Performed By: #### L IPID, CBC, HS TROP, BMP #### [address] Automated monocyte %Ordered By: Reji Saenz on 10-29-2023 Monocytes/100 WBC (Bld) 9.4 % Normal . [facility] Comment on above: Performed By: #### L IPID, CBC, HS TROP, BMP #### [address] Automated neutrophil %Ordere d By: Reji Saenz on 10-29-2023 Neutrophils/100 WBC (Bld) 73.5 % Normal . [facility] Comment on above: Performed By: #### L IPID, CBC, HS TROP, BMP #### [address] Basic Metabolic Panelon 08-0 Creatinine Clr Calc Pharmacy 41.47 Normal [facility] Comment on above: Result Comment: PERF ORMED BY: [place] [address] PATHOLOGIST FIELD OPERATIONS TECHNICIAN KAYLIN ARDON M.D. Performed By: #### L IPID, CBC, HS TROP, BMP #### [place] [address] [place] GFR/1.73 sq M.predicted MDRD (S/P/Bld) [Vol rate/Area] mL/min/{1.73_m2} Normal [facility] Comment on above: Performed By: #### L IPID, CBC, HS TROP, BMP #### [address] Calcium [Mass/volume] in Ser um or PlasmaOrdered By: Reji Saenz on 10-29-2023 Calcium [Mass/Vol] 9.3 mg/dL Normal 8.6-10.3 [facility] Comment on above: Performed By: #### L IPID, CBC, HS TROP, BMP #### [address] Carbon dioxide, total [Moles /volume] in Serum or PlasmaOrdered By: Reji Saenz on 10-29-2023 CO2 [Moles/Vol] 24.3 mmol/L Normal 21.0-31.0 [facility] Comment on above: Performed By: #### L IPID, CBC, HS TROP, BMP #### [address] Chloride [Moles/volume] in S carolyne or PlasmaOrdered By: Reji Saenz on 10-29-2023 Chloride [Moles/Vol] 109 mmol/L High 98-107 [facility] Comment on above: Performed By: #### L IPID, CBC, HS TROP, BMP #### [address] Complete Blood Count Auto Di ffon 10-29-2023 Mean Corpuscular HGB Conc 33.9 g/dL Normal 32.0-35.0 [facility] Comment on above: Performed By: #### L IPID, CBC, HS TROP, BMP #### [address] NRBC% 0.1 /100{WBC} Normal 0-0.5 [facility] Comment on above: Performed By: #### L IPID, CBC, HS TROP, BMP #### [address] Creatinine [Mass/volume] in Serum or PlasmaOrdered By: Reji Saenz on 10-29-2023 Creatinine [Mass/Vol] 0.91 mg/dL Normal 0.60-1.20 [facility] Comment on above: Performed By: #### L IPID, CBC, HS TROP, BMP #### [facility] [address] ECG 12 lead ECGon 10-29-2023 ECG 12 lead ECG [facility] Main [place] [address] [place] [address] Electrocardiograph Report Signed Patient: Genny Brewer MR#: [id number] : 1940 Acct:[id number] Age/Sex: 83 / F ADM Date: 10/27/23 Loc: Room: [address] [place] [address] Type: DIS IN Attending Dr: Reji Saenz [...] Marilou Wilhelm DO 4 1855 Normal [facility] Erythrocyte distribution wid th [Ratio] by Automated countOrdered By: Reji Saenz on 10-29-2023 Erythrocyte distribution width (RBC) [Ratio] 13.8 % Normal 11.9-15.3 [facility] Comment on above: Performed By: #### L IPID, CBC, HS TROP, BMP #### [facility] [address] [place] [address] [place] Erythrocytes [#/volume] in B lood by Automated countOrdered By: Reji Saenz on 10-29-2023 RBC (Bld) [#/Vol] 3.96 10*6/uL Normal 3.60-5.00 [facility] Comment on above: Performed By: #### L IPID, CBC, HS TROP, BMP #### [facility] [address] [place] [address] [place] Glucose [Mass/volume] in Ser um or PlasmaOrdered By: Reji Saenz on 10-29-2023 Glucose [Mass/Vol] 105 mg/dL High 70-100 [facility] Comment on above: ADA recommended refe rence rangeRandom Glucose Reference Range is dependent on time and content of last meal. Glucose of more than 200 mg/dL in a nonstressed, ambulatory subject supports the diagnosis of Diabetes Mellitus. Result Comment: [place] om Glucose Reference Range is dependent on time and content of last meal. Glucose of more than 200 mg/dL in a nonstressed, ambulatory subject supports the diagnosis of Diabetes Mellitus. ADA recommended reference range Performed By: #### L IPID, CBC, HS TROP, BMP #### [facility] [address] [place] [address] Hematocrit [Volume Fraction] of Blood by Automated countOrdered By: Reji Saenz on 10-29-2023 Hematocrit (Bld) [Volume fraction] 38.2 % Normal 34.0-46.4 [facility] Comment on above: Performed By: #### L IPID, CBC, HS TROP, BMP #### [facility] [address] Hemoglobin [Mass/volume] in BloodOrdered By: Reji Saenz on 10-29-2023 Hemoglobin (Bld) [Mass/Vol] 12.9 g/dL Normal 11.8-15.4 [facility] Comment on above: Performed By: #### L IPID, CBC, HS TROP, BMP #### [facility] [address] [place] [id number] [facility] Leukocytes [#/volume] correc kristi for nucleated erythrocytes in Blood by Automated counOrdered By: Reji Saenz on 10-29-2023 WBC corrected for nucl RBC Auto (Bld) [#/Vol] 8.1 10*3/uL 3.8-11.6 [facility] Leukocytes [#/volume] in Blo od by Automated countOrdered By: Reji Saenz on 10-29-2023 WBC (Bld) [#/Vol] 8.1 10*3/uL Normal 3.8-11.6 [facility] Comment on above: Performed By: #### L IPID, CBC, HS TROP, BMP #### [facility] [address] Lymphocytes [#/volume] in Bl ood by Automated countOrdered By: Reji Saenz on 10-29-2023 Lymphocytes (Bld) [#/Vol] 1.3 10*3/uL Normal 1.00-4.8 [facility] Comment on above: Performed By: #### L IPID, CBC, HS TROP, BMP #### [facility] [address] [place] [address] Lymphocytes/100 leukocytes i n Blood by Automated countOrdered By: Reji Saenz on 10-29-2023 Lymphocytes/100 WBC (Bld) 15.8 % Normal . [facility] Comment on above: Performed By: #### L IPID, CBC, HS TROP, BMP #### [address] MCH [Entitic mass] by Automa kristi countOrdered By: Reji Saenz on 10-29-2023 MCH (RBC) [Entitic mass] 32.7 pg Normal 24.7-34.3 [facility] Comment on above: Performed By: #### L IPID, CBC, HS TROP, BMP #### [facility] [address] [place] [address] MCHC Auto (RBC) [Mass/Vol]Or dered By: Reji Saenz on 10-29-2023 MCHC (RBC) [Mass/Vol] 33.9 g/dL 32.0-35.0 [facility] MCV [Entitic volume] by Auto mated countOrdered By: Reji Saenz on 10-29-2023 MCV (RBC) [Entitic vol] 96.5 fL Normal 80-100 [facility] Comment on above: Performed By: #### L IPID, CBC, HS TROP, BMP #### [facility] [address] [place] [address] [place] Neutrophils [#/volume] in Bl ood by Automated countOrdered By: Reji Saenz on 10-29-2023 Neutrophils (Bld) [#/Vol] 5.9 10*3/uL Normal 1.8-7.7 [facility] Comment on above: Performed By: #### L IPID, CBC, HS TROP, BMP #### [facility] [address] [place] [address] No Panel InformationOrdered By: Reji Saenz on 10-29-2023 Estimated GFR (CKD-EPI) > 60.0 mL/Min [facility] Creatinine Clearance (Chem 41.47 [facility] Nucleated erythrocytes [Pres ence] in Blood by Automated countOrdered By: Reji Saenz on 10-29-2023 Nucleated RBC Auto Ql (Bld) 0.1 /100{WBC} 0-0.5 [facility] Platelet mean volume [Entiti c volume] in Blood by Automated countOrdered By: Reji Saenz on 10-29-2023 Platelet mean volume (Bld) [Entitic vol] 8.0 fL Normal 6.3-10.7 [facility] Comment on above: Performed By: #### L IPID, CBC, HS TROP, BMP #### [facility] [address] [place] [address] Platelets [#/volume] in Bloo d by Automated countOrdered By: Reji Saenz on 10-29-2023 Platelets (Bld) [#/Vol] 261 10*3/uL Normal 150-450 [facility] Comment on above: Performed By: #### L IPID, CBC, HS TROP, BMP #### [address] Potassium [Moles/volume] in Serum or PlasmaOrdered By: Reji Saenz on 10-29-2023 Potassium [Moles/Vol] 4.0 mmol/L Normal 3.5-5.1 [facility] Comment on above: Performed By: #### L IPID, CBC, HS TROP, BMP #### [address] Serum or plasma anion gap de terminationOrdered By: Reji Saenz on 10-29-2023 Anion gap [Moles/Vol] 8.7 mmol/L Normal 6.0-15.0 [facility] Comment on above: Performed By: #### L IPID, CBC, HS TROP, BMP #### [facility] [address] Sodium [Moles/volume] in Ser um or PlasmaOrdered By: Reji Saenz on 10-29-2023 Sodium [Moles/Vol] 138 mmol/L Normal 136-145 [facility] Comment on above: Performed By: #### L IPID, CBC, HS TROP, BMP #### [address] Urea nitrogen [Mass/volume] in Serum or PlasmaOrdered By: Reji Saenz on 10-29-2023 Urea nitrogen [Mass/Vol] 17 mg/dL Normal 7-25 [facility] Comment on above: Performed By: #### L IPID, CBC, HS TROP, BMP #### [facility] [address] [place] [address] Basic Metabolic Panelon 08 Anion gap [Moles/Vol] 6.3 mmol/L Normal 6.0-15.0 [facility] Comment on above: Performed By: #### L IPID, CBC, HS TROP, BMP #### [address] Calcium [Mass/Vol] 9.3 mg/dL Normal 8.6-10.3 [facility] Comment on above: Performed By: #### L IPID, CBC, HS TROP, BMP #### [facility] [address] [place] [address] [place] Chloride [Moles/Vol] 112 mmol/L High 98-107 [facility] Comment on above: Performed By: #### L IPID, CBC, HS TROP, BMP #### [facility] [address] [place] [address] CO2 [Moles/Vol] 20.7 mmol/L Low 21.0-31.0 [facility] Comment on above: Performed By: #### L IPID, CBC, HS TROP, BMP #### [facility] [address] [place] [address] [place] Creatinine [Mass/Vol] 0.85 mg/dL Normal 0.60-1.20 [facility] Comment on above: Performed By: #### L IPID, CBC, HS TROP, BMP #### [facility] [address] [place] [address] [place] Creatinine Clr Calc Pharmacy 44.36 Normal [facility] Comment on above: Performed By: #### L IPID, CBC, HS TROP, BMP #### [facility] [address] [place] [address] [place] GFR/1.73 sq M.predicted MDRD (S/P/Bld) [Vol rate/Area] mL/min/{1.73_m2} Normal [facility] Comment on above: Performed By: #### L IPID, CBC, HS TROP, BMP #### [address] Glucose [Mass/Vol] 104 mg/dL High 70-100 [facility] Comment on above: Result Comment: [place] Glucose Reference Range is dependent on time and content of last meal. Glucose of more than 200 mg/dL in a nonstressed, ambulatory subject supports the diagnosis of Diabetes Mellitus. ADA recommended reference range Performed By: #### L IPID, CBC, HS TROP, BMP #### [place] [address] [place] Potassium [Moles/Vol] 4.0 mmol/L Normal 3.5-5.1 [facility] Comment on above: Performed By: #### L IPID, CBC, HS TROP, BMP #### [facility] [address] [place] [address] [place] Sodium [Moles/Vol] 135 mmol/L Low 136-145 [facility] Comment on above: Performed By: #### L IPID, CBC, HS TROP, BMP #### [place] [address] [place] Urea nitrogen [Mass/Vol] 17 mg/dL Normal 7-25 [facility] Comment on above: Performed By: #### L IPID, CBC, HS TROP, BMP #### [facility] [address] [place] [address] [place] Cholesterol [Mass/volume] in Serum or PlasmaOrdered By: Reji Saenz on 10-28-2023 Cholesterol [Mass/Vol] 241 mg/dL High 140-200 [facility] Comment on above: Chol less than 200 m g/dl low riskChol 201-239 mg/dl borderline riskChol 240 mg/dl and greater high risk Result Comment: Chol less than 200 mg/dl low risk Chol 201-239 mg/dl borderline risk Chol 240 mg/dl and greater high risk Performed By: #### L IPID, CBC, HS TROP, BMP #### [facility] [address] [place] [address] [place] Cholesterol in LDL Calc [Mas s/Vol]Ordered By: Reji Saenz on 10-28-2023 Cholesterol in LDL [Mass/Vol] 108 mg/dL High 0-100 [facility] Comment on above: LDL ATP III CLASSIFI CATIONLDL less than 100 mg/dL OptimalLDL 100-129 mg/dL Near or above optimalLDL 130-159 mg/dL Borderline highLDL 160-189 mg/dL HighLDL greater than 189 mg/dL Very high Cholesterol in VLDL Calc [Ma ss/Vol]Ordered By: Reji Saenz on 10-28-2023 Cholesterol in VLDL [Mass/Vol] 20 mg/dL [facility] Complete Blood Count Auto Di ffon 10-28-2023 Basophils (Bld) [#/Vol] 0.1 10*3/uL Normal 0.0-0.2 [facility] Comment on above: Result Comment: PERF ORMED BY: [place] [address] PATHOLOGIST FIELD OPERATIONS TECHNICIAN KAYLIN ARDON M.D. Performed By: #### L IPID, CBC, HS TROP, BMP #### [place] [address] [place] Basophils/100 WBC (Bld) 0.9 % Normal . The [facility] Comment on above: Performed By: #### L IPID, CBC, HS TROP, BMP #### [facility] [address] [place] [address] Eosinophils (Bld) [#/Vol] 0.0 10*3/uL Normal 0.0-0.45 [facility] Comment on above: Performed By: #### L IPID, CBC, HS TROP, BMP #### [address] Eosinophils/100 WBC (Bld) 0.5 % Normal . [facility] Comment on above: Performed By: #### L IPID, CBC, HS TROP, BMP #### [address] Erythrocyte distribution width (RBC) [Ratio] 13.7 % Normal 11.9-15.3 [facility] Comment on above: Performed By: #### L IPID, CBC, HS TROP, BMP #### [address] Hematocrit (Bld) [Volume fraction] 37.9 % Normal 34.0-46.4 [facility] Comment on above: Performed By: #### L IPID, CBC, HS TROP, BMP #### [address] Hemoglobin (Bld) [Mass/Vol] 12.7 g/dL Normal 11.8-15.4 [facility] Comment on above: Performed By: #### L IPID, CBC, HS TROP, BMP #### [address] Lymphocytes (Bld) [#/Vol] 1.7 10*3/uL Normal 1.00-4.8 [facility] Comment on above: Performed By: #### L IPID, CBC, HS TROP, BMP #### [place] [address] [place] Lymphocytes/100 WBC (Bld) 20.4 % Normal . [facility] Comment on above: Performed By: #### L IPID, CBC, HS TROP, BMP #### [address] MCH (RBC) [Entitic mass] 32.6 pg Normal 24.7-34.3 [facility] Comment on above: Performed By: #### L IPID, CBC, HS TROP, BMP #### [address] MCV (RBC) [Entitic vol] 97.0 fL Normal 80-100 [facility] Comment on above: Performed By: #### L IPID, CBC, HS TROP, BMP #### [address] Mean Corpuscular HGB Conc 33.5 g/dL Normal 32.0-35.0 [facility] Comment on above: Performed By: #### L IPID, CBC, HS TROP, BMP #### [address] Monocytes (Bld) [#/Vol] 0.9 10*3/uL High 0.0-0.8 [facility] Comment on above: Performed By: #### L IPID, CBC, HS TROP, BMP #### [address] Monocytes/100 WBC (Bld) 10.2 % Normal . [facility] Comment on above: Performed By: #### L IPID, CBC, HS TROP, BMP #### [address] Neutrophils (Bld) [#/Vol] 5.7 10*3/uL Normal 1.8-7.7 [facility] Comment on above: Performed By: #### L IPID, CBC, HS TROP, BMP #### [place] [address] [place] Neutrophils/100 WBC (Bld) 68.0 % Normal . [facility] Comment on above: Performed By: #### L IPID, CBC, HS TROP, BMP #### [address] NRBC% 0.1 /100{WBC} Normal 0-0.5 [facility] Comment on above: Performed By: #### L IPID, CBC, HS TROP, BMP #### [facility] [address] [id number] [facility] Platelet mean volume (Bld) [Entitic vol] 7.7 fL Normal 6.3-10.7 [facility] Comment on above: Performed By: #### L IPID, CBC, HS TROP, BMP #### [facility] [address] [place] [address] [place] Platelets (Bld) [#/Vol] 254 10*3/uL Normal 150-450 [facility] Comment on above: Performed By: #### L IPID, CBC, HS TROP, BMP #### [facility] [address] [place] [address] [place] RBC (Bld) [#/Vol] 3.90 10*6/uL Normal 3.60-5.00 [facility] Comment on above: Performed By: #### L IPID, CBC, HS TROP, BMP #### [facility] [address] [id number] [place] WBC (Bld) [#/Vol] 8.4 10*3/uL Normal 3.8-11.6 The [facility] Comment on above: Performed By: #### L IPID, CBC, HS TROP, BMP #### [facility] [address] [id number] [facility] ECG 12 lead ECGon 10-28-2023 ECG 12 lead ECG [facility] [address] [place] [address] [place] [address] Electrocardiograph Report Signed Patient: Genny Brewer MR#: [id number] : 1940 Acct:[id number] Age/Sex: 83 / F ADM Date: 10/27/23 Loc: Room: [address] [place] [address] Type: DIS IN Attending Dr: Reji Saenz [...] Marilou Wilhelm DO 4 1836 Normal [facility] ECG 12 lead ECG [facility] Main [place] [id number] Electrocardiograph Report Signed Patient: Genny Brewer MR#: [id number] : 1940 Acct:[id number] Age/Sex: 83 / F ADM Date: 10/27/23 Loc: Room: [address] [place] [address] Type: DIS IN Attending Dr: Reji Saenz [...] are now present Confirmed by Lorenzo Mora ([id number]) on 11/07/2023 10:40:27 AM Referred By: Electronically Signed By: Lorenzo Mora Transcribed By: MUS Signed By Lorenzo Mora MD 11/07/23 1040 Normal [facility] echo transthoracicon [facility] echo transthoracic [address] [address] Echocardiogram Signed Patient: Genny Brewer MR#: [id number] : 1940 Acct:[id number] Age/Sex: 83 / F ADM Date: 10/27/23 Loc: Room: [address] [place] [address] Type: ADM IN Attending Dr: Reji Saenz DO Ordering Provider: Reji Saenz DO Date of Service: 10/28/2308/15/499 [facility] echo transthoracic: Acute inferior STEMI Copies to: DO Reji Sandoval DO E 10:40 AM Patient Location: : 1940 Gender: Female (MM/DD/YYYY) Age: 83 Years Ordering Physician: Reji Saenz Height: 60.63 in Weight: 151.003 lb Performed By: Rupal Joe RDCS BSA: 1.67 m2 BP: 130 / 63 mmHg HR: 60 bpm Reason For Study: Acute inferior STEMI History: PCI 10/27/23. Smoker. COVID-19. + + Interpretation Summary Indication: 83 y/o F inferior [...] V1 VTI: 17.6 cm + + + -+ + : Electronically : : signed by: Marilou : : : : Melonie : : : : : : on: 10/28/2023, : : 6:43 PM : Transcribed By: NICKOLAS Performed At: 10/28/23 1040 Signed By: Marilou Wilhelm, 10/28/23 1843 Normal [facility] Lipid Panelon 10-28-2023 LDL Cholesterol,Calculate d 108 mg/dL High 0-100 [facility] Comment on above: Result Comment: LDL ATP III CLASSIFICATION LDL less than 100 mg/dL Optimal LDL 100-129 mg/dL Near or above optimal LDL 130-159 mg/dL Borderline high LDL 160-189 mg/dL High LDL greater than 189 mg/dL Very high Performed By: #### L IPID, CBC, HS TROP, BMP #### [facility] [address] Triglyceride w/Reflex 103 mg/dL Normal 0-149 [facility] Comment on above: Result Comment: TRIG ATP III CLASSIFICATION TRIG less than 150 mg/dL Normal TRIG 150-199 mg/dL Borderline high TRIG 200-500 mg/dL High TRIG greater than 500 mg/dL Very high Standard traceable to the Center for Disease Conrtrol and Prevention (CDC) test method. Performed By: #### L IPID, CBC, HS TROP, BMP #### [facility] [address] VLDL CHOLESTEROL 20 mg/dL Normal [facility] Comment on above: Performed By: #### L IPID, CBC, HS TROP, BMP #### [facility] [address] Serum or plasma high density lipoprotein (HDL) cholesterol measurementOrdered By: Reji Saenz on 10-28-2023 Cholesterol in HDL [Mass/Vol] 112 mg/dL High 23-92 [facility] Comment on above: HDL CHOL ATP-III CLA SSIFICATION Cardiovascular RiskHDL > or equal to 60 mg/dL LOWHDL < 40 mg/dL HIGH Result Comment: HDL CHOL ATP-III CLASSIFICATION Cardiovascular Risk HDL > or equal to 60 mg/dL LOW HDL < 40 mg/dL HIGH Performed By: #### L IPID, CBC, HS TROP, BMP #### [facility] [address] Serum or plasma total choles terol/high density lipoprotein (HDL) cholesterol mass ratOrdered By: Reji Saenz on 10-28-2023 Cholesterol.total/Cho lesterol in HDL [Mass ratio] 2.2 {ratio} Normal <5.0 [facility] Comment on above: Result Comment: PERF ORMED BY: [place] [address] PATHOLOGIST FIELD OPERATIONS TECHNICIAN KAYLIN ARDON M.D. Performed By: #### L IPID, CBC, HS TROP, BMP #### [address] Triglyceride [Mass/volume] i n Serum or PlasmaOrdered By: Reji Saenz on 10-28-2023 Triglyceride [Mass/Vol] 103 mg/dL 0-149 [facility] Comment on above: TRIG ATP III CLASSIF ICATIONTRIG less than 150 mg/dL NormalTRIG 150-199 mg/dL Borderline highTRIG 200-500 mg/dL High TRIG greater than 500 mg/dL Very highStandard traceable to the Center for Disease Conrtrol and Prevention (CDC) test method. Troponin I High Sensitivityo n 10-28-2023 Troponin I High Sensitivity 72243.4 pg/mL Off scale high 0.0-15.0 [facility] Comment on above: Result Comment: Crit ical Result : Called to and read back by: ELLA SCOTT at: 10/28/2023 05:06:20 by:[id number] PERFORMED BY: [place] [address] PATHOLOGIST FIELD OPERATIONS TECHNICIAN KAYLIN ARDON M.D. Performed By: #### L IPID, CBC, HS TROP, BMP #### [place] [id number] [facility] Troponin I High Sensitivity 16025.0 pg/mL Off scale high 0.0-15.0 [facility] Comment on above: Result Comment: Crit ical Result : Called to and read back by: ELLA SCOTT at: 10/28/2023 02:47:34 by:[id number] PERFORMED BY: [place] [address] PATHOLOGIST FIELD OPERATIONS TECHNICIAN KAYLIN ARDON M.D. Performed By: #### H S TROP #### [facility] [address] [place] [address] Troponin I.cardiac [Mass/vol ume] in Serum or Plasma by Detection limit <= 0.01 ng/Ordered By: Reji Saenz on 10-28-2023 Troponin I.cardiac DL <= 0.01 ng/mL [Mass/Vol] 80562.4 pg/mL High 0.0-15.0 [facility] Comment on above: Critical Result : Ca lled to and read back by: ELLA SCOTT at: 10/28/2023 05:06:20 by:[id number] Activated partial thrombopla stin time (aPTT) in platelet poor plasma by coagulation aOrdered By: Doe Álvarez on 10-27-2023 aPTT Coag (PPP) [Time] 23.1 s Low 25.1-36.5 [facility] Comment on above: A hematocrit value g reater than 55% may lead to inaccurate results in coagulation testing. Patients having hematocrit values >55% require a special collection tube for coagulation studies. Please contact the laboratory at [phone] for redraw instructions. Alanine aminotransferase [En zymatic activity/volume] in Serum or PlasmaOrdered By: Doe Álvarez on 10-27-2023 ALT [Catalytic activity/Vol] 36 U/L Normal 7-52 [facility] Comment on above: Performed By: #### L IPID, CBC, HS TROP, BMP #### [facility] [address] [place] [address] Albumin [Mass/volume] in Ser um or Plasma by Bromocresol green (BCG) dye binding methoOrdered By: Doe Álvarez on 10-27-2023 Albumin BCG dye [Mass/Vol] 4.4 g/dL 3.5-5.7 [facility] Alkaline phosphatase [Enzyma tic activity/volume] in Serum or PlasmaOrdered By: Doe Álvarez on 10-27-2023 ALP [Catalytic activity/Vol] 86 U/L Normal 34-104 [facility] Comment on above: Performed By: #### L IPID, CBC, HS TROP, BMP #### [facility] [address] [place] [address] Aspartate aminotransferase [ Enzymatic activity/volume] in Serum or PlasmaOrdered By: oDe Álvarez on 10-27-2023 AST [Catalytic activity/Vol] 60 U/L High 13-39 [facility] Comment on above: Performed By: #### L IPID, CBC, HS TROP, BMP #### [facility] [address] [place] [address] Automated basophil %Ordered By: Doe Álvarez on 10-27-2023 Basophils/100 WBC (Bld) 1.3 % Normal . [facility] Comment on above: Performed By: #### L IPID, CBC, HS TROP, BMP #### [facility] [address] [place] [address] Automated basophil countOrde red By: Doe Álvarez on 10-27-2023 Basophils (Bld) [#/Vol] 0.1 10*3/uL Normal 0.0-0.2 [facility] Comment on above: Result Comment: PERF ORMED BY: [place] [address] PATHOLOGIST FIELD OPERATIONS TECHNICIAN KAYLIN ARDON M.D. Performed By: #### L IPID, CBC, HS TROP, BMP #### [facility] [address] [place] [address] Automated blood monocyte cou ntOrdered By: Doe Álvarez on 10-27-2023 Monocytes (Bld) [#/Vol] 0.7 10*3/uL Normal 0.0-0.8 [facility] Comment on above: Performed By: #### L IPID, CBC, HS TROP, BMP #### [facility] [address] [place] [address] Automated eosinophil %Ordere d By: Doe Álvarez on 10-27-2023 Eosinophils/100 WBC (Bld) 0.7 % Normal . [facility] Comment on above: Performed By: #### L IPID, CBC, HS TROP, BMP #### [facility] [address] [place] [address] Automated eosinophil countOr dered By: Doe Álvarez on 10-27-2023 Eosinophils (Bld) [#/Vol] 0.1 10*3/uL Normal 0.0-0.45 [facility] Comment on above: Performed By: #### L IPID, CBC, HS TROP, BMP #### [facility] [address] [place] [address] Automated monocyte %Ordered By: Doe Álvarez on 10-27-2023 Monocytes/100 WBC (Bld) 8.7 % Normal . [facility] Comment on above: Performed By: #### L IPID, CBC, HS TROP, BMP #### [facility] [address] [place] [address] Automated neutrophil %Ordere d By: Doe Álvarez on 10-27-2023 Neutrophils/100 WBC (Bld) 63.6 % Normal . [facility] Comment on above: Performed By: #### L IPID, CBC, HS TROP, BMP #### [address] BNP ser/plasOrdered By: Nasreen Álvarez on 10-27-2023 Natriuretic peptide B (Bld) [Mass/Vol] 124.0 pg/mL High 5-100 [facility] Comment on above: Result Comment: PERF ORMED BY: [place] [address] PATHOLOGIST FIELD OPERATIONS TECHNICIAN KAYLIN ARDON M.D. Performed By: #### L IPID, CBC, HS TROP, BMP #### [facility] [address] [place] [address] Bilirubin.total [Mass/volume ] in Serum or PlasmaOrdered By: Doe Álvarez on 10-27-2023 Bilirubin [Mass/Vol] 0.7 mg/dL Normal 0.3-1.0 [facility] Comment on above: Performed By: #### L IPID, CBC, HS TROP, BMP #### [address] Calcium [Mass/volume] in Ser um or PlasmaOrdered By: Doe Álvarez on 10-27-2023 Calcium [Mass/Vol] 10.0 mg/dL Normal 8.6-10.3 [facility] Comment on above: Performed By: #### L IPID, CBC, HS TROP, BMP #### [address] Carbon dioxide, total [Moles /volume] in Serum or PlasmaOrdered By: Doe Álvarez on 10-27-2023 CO2 [Moles/Vol] 21.0 mmol/L Normal 21.0-31.0 [facility] Comment on above: Performed By: #### L IPID, CBC, HS TROP, BMP #### [address] Chloride [Moles/volume] in S carolyne or PlasmaOrdered By: Doe Álvarez on 10-27-2023 Chloride [Moles/Vol] 107 mmol/L Normal 98-107 [facility] Comment on above: Performed By: #### L IPID, CBC, HS TROP, BMP #### [address] Complete Blood Count Auto Di ffon 10-27-2023 Mean Corpuscular HGB Conc 34.1 g/dL Normal 32.0-35.0 [facility] Comment on above: Performed By: #### L IPID, CBC, HS TROP, BMP #### [place] [address] [place] Monocytes/100 WBC (Bld) 20.20 % High 0.00-20.00 [facility] Comment on above: Result Comment: For adults in ED, MDW > 20.0 may be associated with a higher risk of sepsis during the first 12 hrs of hospital admission Performed By: #### L IPID, CBC, HS TROP, BMP #### [address] NRBC% 0.1 /100{WBC} Normal 0-0.5 [facility] Comment on above: Performed By: #### L IPID, CBC, HS TROP, BMP #### [facility] [address] [place] [address] Comprehensive Metabolic Pane david 10-27-2023 Albumin [Mass/Vol] 4.4 g/dL Normal 3.5-5.7 [facility] Comment on above: Performed By: #### L IPID, CBC, HS TROP, BMP #### [address] Creatinine Clr Calc Pharmacy 35.04 Normal [facility] Comment on above: Result Comment: PERF ORMED BY: [place] [address] PATHOLOGIST FIELD OPERATIONS TECHNICIAN KAYLIN ARDON M.D. Performed By: #### L IPID, CBC, HS TROP, BMP #### [place] [address] [place] GFR/1.73 sq M.predicted MDRD (S/P/Bld) [Vol rate/Area] 52.124 mL/min/{1.73_m2} Normal [facility] Comment on above: Performed By: #### L IPID, CBC, HS TROP, BMP #### [place] [address] [place] Creatine kinase [Enzymatic a ctivity/volume] in Serum or PlasmaOrdered By: Doe lÁvarez on 10-27-2023 CK [Catalytic activity/Vol] 74 U/L Normal 30-223 [facility] Comment on above: Performed By: #### L IPID, CBC, HS TROP, BMP #### [facility] [address] [place] [address] [place] Creatinine [Mass/volume] in Serum or PlasmaOrdered By: Doe Álvarez on 10-27-2023 Creatinine [Mass/Vol] 1.06 mg/dL Normal 0.60-1.20 [facility] Comment on above: Performed By: #### L IPID, CBC, HS TROP, BMP #### [place] [id number] [place] ECG 12 lead ECGon 10-27-2023 ECG 12 lead ECG [facility] [place] [address] Electrocardiograph Report Signed Patient: Genny Brewer MR#: [id number] : 1940 Acct:[id number] Age/Sex: 83 / F ADM Date: 10/27/23 Loc: Room: [address] [place] [address] Type: DIS IN Attending Dr: Reji Saenz [...] By Marilou Wilhelm DO 1831 Normal [facility] ECG 12 [place] [address] Electrocardiograph Report Signed Patient: Genny Brewer MR#: [id number] : 1940 Acct:[id number] Age/Sex: 83 / F ADM Date: 10/27/23 Loc: Room: [address] [place] [address] Type: ADM IN Attending Dr: Reji Saenz [...] consider inferolateral injury or acute infarct ACUTE VT / STEMI Consider right ventricular involvement in acute inferior infarct Abnormal ECG No previous ECGs available Confirmed by ANAYELI DAVE MD ([id number]) on 10/27/2023 7:16:42 PM Referred By: Electronically Signed By: ANAYELI DAVE MD Transcribed By: MUS Signed By Anayeli Dave MD 10/27/23 1916 Normal [facility] Erythrocyte distribution wid th [Ratio] by Automated countOrdered By: Doe Álvarez on 10-27-2023 Erythrocyte distribution width (RBC) [Ratio] 14.0 % Normal 11.9-15.3 [facility] Comment on above: Performed By: #### L IPID, CBC, HS TROP, BMP #### [facility] [address] [place] [address] [place] Erythrocytes [#/volume] in B lood by Automated countOrdered By: Doe Álvarez on 10-27-2023 RBC (Bld) [#/Vol] 4.45 10*6/uL Normal 3.60-5.00 [facility] Comment on above: Performed By: #### L IPID, CBC, HS TROP, BMP #### [facility] [address] [place] [id number] [place] Glucose [Mass/volume] in Ser um or PlasmaOrdered By: Doe Álvarez on 10-27-2023 Glucose [Mass/Vol] 166 mg/dL High 70-100 [facility] Comment on above: ADA recommended refe rence rangeRandom Glucose Reference Range is dependent on time and content of last meal. Glucose of more than 200 mg/dL in a nonstressed, ambulatory subject supports the diagnosis of Diabetes Mellitus. Result Comment: [place] om Glucose Reference Range is dependent on time and content of last meal. Glucose of more than 200 mg/dL in a nonstressed, ambulatory subject supports the diagnosis of Diabetes Mellitus. ADA recommended reference range Performed By: #### L IPID, CBC, HS TROP, BMP #### [facility] [address] [id number] [place] Hematocrit [Volume Fraction] of Blood by Automated countOrdered By: Doe Álvarez on 10-27-2023 Hematocrit (Bld) [Volume fraction] 42.6 % Normal 34.0-46.4 [facility] Comment on above: Performed By: #### L IPID, CBC, HS TROP, BMP #### [facility] [address] Hemoglobin [Mass/volume] in BloodOrdered By: Doe Álvarez on 10-27-2023 Hemoglobin (Bld) [Mass/Vol] 14.5 g/dL Normal 11.8-15.4 [facility] Comment on above: Performed By: #### L IPID, CBC, HS TROP, BMP #### [facility] [address] INR in Platelet poor plasma by Coagulation assayOrdered By: Doe Álvarez on 10-27-2023 INR Coag (PPP) [Relative time] 0.9 {INR} Normal [facility] Comment on above: INR Therapeutic Rang e [...] L IPID, CBC, HS TROP, BMP #### [facility] [address] Leukocytes [#/volume] correc kristi for nucleated erythrocytes in Blood by Automated counOrdered By: Doe Álvarez on 10-27-2023 WBC corrected for nucl RBC Auto (Bld) [#/Vol] 8.6 10*3/uL 3.8-11.6 [facility] Leukocytes [#/volume] in Blo od by Automated countOrdered By: Doe Álvarez on 10-27-2023 WBC (Bld) [#/Vol] 8.6 10*3/uL Normal 3.8-11.6 [facility] Comment on above: Performed By: #### L IPID, CBC, HS TROP, BMP #### [facility] [address] [place] [address] Lymphocytes [#/volume] in Bl ood by Automated countOrdered By: Doe Álvarez on 10-27-2023 Lymphocytes (Bld) [#/Vol] 2.2 10*3/uL Normal 1.00-4.8 [facility] Comment on above: Performed By: #### L IPID, CBC, HS TROP, BMP #### [facility] [address] [place] [address] Lymphocytes/100 leukocytes i n Blood by Automated countOrdered By: Doe Álvarez on 10-27-2023 Lymphocytes/100 WBC (Bld) 25.7 % Normal . [facility] Comment on above: Performed By: #### L IPID, CBC, HS TROP, BMP #### [address] MCH [Entitic mass] by Automa kristi countOrdered By: Doe Álvarez on 10-27-2023 MCH (RBC) [Entitic mass] 32.6 pg Normal 24.7-34.3 [facility] Comment on above: Performed By: #### L IPID, CBC, HS TROP, BMP #### [facility] [address] [place] [address] MCHC Auto (RBC) [Mass/Vol]Or dered By: Doe Álvarez on 10-27-2023 MCHC (RBC) [Mass/Vol] 34.1 g/dL 32.0-35.0 [facility] MCV [Entitic volume] by Auto mated countOrdered By: Doe Álvarez on 10-27-2023 MCV (RBC) [Entitic vol] 95.7 fL Normal 80-100 [facility] Comment on above: Performed By: #### L IPID, CBC, HS TROP, BMP #### [facility] [address] [place] [address] Monocyte distribution width [Entitic volume] in Blood by AutomatedOrdered By: Doe Álvarez on 10-27-2023 Monocyte distribution width Auto (Bld) [Entitic vol] 20.20 % High 0.00-20.00 [facility] Comment on above: For adults in ED, MD W > 20.0 may be associated with a higher risk of sepsis during the first 12 hrs of hospital admission Neutrophils [#/volume] in Bl ood by Automated countOrdered By: Doe Álvarez on 10-27-2023 Neutrophils (Bld) [#/Vol] 5.5 10*3/uL Normal 1.8-7.7 [facility] Comment on above: Performed By: #### L IPID, CBC, HS TROP, BMP #### [facility] [address] [place] [address] No Panel InformationOrdered By: Doe Álvarez on 10-27-2023 Estimated GFR (CKD-EPI) 52.124 mL/Min [facility] Creatinine Clearance (Chem 35.04 [facility] Nucleated erythrocytes [Pres ence] in Blood by Automated countOrdered By: Doe Álvarez on 10-27-2023 Nucleated RBC Auto Ql (Bld) 0.1 /100{WBC} 0-0.5 [facility] Partial Thromboplastin Timeo n 10-27-2023 aPTT Coag (Bld) [Time] 23.1 s Low 25.1-36.5 [facility] Comment on above: Result Comment: A he matocrit value greater than 55% may lead to inaccurate results in coagulation testing. Patients having hematocrit values >55% require a special collection tube for coagulation studies. Please contact the laboratory at [phone] for redraw instructions. PERFORMED BY: [place] [address] PATHOLOGIST FIELD OPERATIONS TECHNICIAN KAYLIN ARDON M.D. Performed By: #### L IPID, CBC, HS TROP, BMP #### [facility] [address] [place] [address] Platelet mean volume [Entiti c volume] in Blood by Automated countOrdered By: Doe Álvarez on 10-27-2023 Platelet mean volume (Bld) [Entitic vol] 7.7 fL Normal 6.3-10.7 [facility] Comment on above: Performed By: #### L IPID, CBC, HS TROP, BMP #### [facility] [address] Platelets [#/volume] in Bloo d by Automated countOrdered By: Doe Álvarez on 10-27-2023 Platelets (Bld) [#/Vol] 294 10*3/uL Normal 150-450 [facility] Comment on above: Performed By: #### L IPID, CBC, HS TROP, BMP #### [facility] [address] [place] [address] [place] Potassium [Moles/volume] in Serum or PlasmaOrdered By: Doe Álvarez on 10-27-2023 Potassium [Moles/Vol] 3.7 mmol/L Normal 3.5-5.1 [facility] Comment on above: Performed By: #### L IPID, CBC, HS TROP, BMP #### [facility] [address] [place] [address] [place] Protein [Mass/volume] in Ser um or PlasmaOrdered By: Doe Álvarez on 10-27-2023 Protein [Mass/Vol] 7.1 g/dL Normal 6.4-8.9 [facility] Comment on above: Performed By: #### L IPID, CBC, HS TROP, BMP #### [facility] [address] [place] [address] Prothrombin time (PT)Ordered By: Doe Álvarez on 10-27-2023 PT Coag (PPP) [Time] 10.7 s Normal 9.0-12.9 [facility] Comment on above: A hematocrit value g reater than 55% may lead to inaccurate results in coagulation testing. Patients having hematocrit values >55% require a special collection tube for coagulation studies. Please contact the laboratory at [phone] for redraw instructions. Result Comment: A he matocrit value greater than 55% may lead to inaccurate results in coagulation testing. Patients having hematocrit values >55% require a special collection tube for coagulation studies. Please contact the laboratory at [phone] for redraw instructions. Performed By: #### L IPID, CBC, HS TROP, BMP #### [facility] [address] [place] [address] Serum globulin measurement b y calculation (mass/volume)Ordered By: Doe Álvarez on 10-27-2023 Globulin (S) [Mass/Vol] 2.7 g/dL [facility] Comment on above: Performed By: #### L IPID, CBC, HS TROP, BMP #### [facility] [address] [place] [address] Serum or plasma albumin/glob ulin mass ratioOrdered By: Doe Álvarez on 10-27-2023 Albumin/Globulin [Mass ratio] 1.6 {ratio} [facility] Comment on above: Performed By: #### L IPID, CBC, HS TROP, BMP #### [address] Serum or plasma anion gap de terminationOrdered By: Doe Álvarez on 10-27-2023 Anion gap [Moles/Vol] 13.7 mmol/L Normal 6.0-15.0 [facility] Comment on above: Performed By: #### L IPID, CBC, HS TROP, BMP #### [address] Sodium [Moles/volume] in Ser um or PlasmaOrdered By: Doe Álvarez on 10-27-2023 Sodium [Moles/Vol] 138 mmol/L Normal 136-145 [facility] Comment on above: Performed By: #### L IPID, CBC, HS TROP, BMP #### [facility] [address] [place] [address] Troponin I High Sensitivityo n 10-27-2023 Troponin I High Sensitivity 11571.9 pg/mL Off scale high 0.0-15.0 [facility] Comment on above: Order Comment: guido powell at 2350 Result Comment: Crit ical Result : Called to and read back by: DELIA LOZANO at: 10/28/2023 00:06:21 by:[id number] PERFORMED BY: [place] [address] PATHOLOGIST FIELD OPERATIONS TECHNICIAN KAYLIN ARDON M.D. Performed By: #### L IPID, CBC, HS TROP, BMP #### [address] Troponin I High Sensitivity 41836.3 pg/mL Off scale high 0.0-15.0 [facility] Comment on above: Order Comment: guido powell at 2150 Result Comment: Crit ical Result : Called to and read back by: ELLA SCOTT at: 10/27/2023 23:27:11 by:[id number] PERFORMED BY: [place] [address] PATHOLOGIST FIELD OPERATIONS TECHNICIAN KAYLIN ARDON M.D. Performed By: #### L IPID, CBC, HS TROP, BMP #### [place] [address] [place] Troponin I High Sensitivity 6295.7 pg/mL Off scale high 0.0-15.0 [facility] Comment on above: Result Comment: Crit ical Result : Called to and read back by: MONET CONNORS at: 10/27/2023 21:58:31 by:[id number] PERFORMED BY: [place] [address] PATHOLOGIST FIELD OPERATIONS TECHNICIAN KAYLIN ARDON M.D. Performed By: #### L IPID, CBC, HS TROP, BMP #### [place] [address] [place] Troponin I High Sensitivity 10.2 pg/mL Normal 0.0-15.0 [facility] Comment on above: Result Comment: PERF ORMED BY: [place] [address] PATHOLOGIST FIELD OPERATIONS TECHNICIAN KAYLIN ARDON M.D. Performed By: #### L IPID, CBC, HS TROP, BMP #### [address] Troponin I.cardiac [Mass/vol ume] in Serum or Plasma by Detection limit <= 0.01 ng/Ordered By: Doe Álvarez on 10-27-2023 Troponin I.cardiac DL <= 0.01 ng/mL [Mass/Vol] 10.2 pg/mL 0.0-15.0 [facility] Urea nitrogen [Mass/volume] in Serum or PlasmaOrdered By: Doe Álvarez on 10-27-2023 Urea nitrogen [Mass/Vol] 17 mg/dL Normal 7-25 [facility] Comment on above: Performed By: #### L IPID, CBC, HS TROP, BMP #### [facility] [address] XR chest 1V portableon 10-26 XR chest 1V portable [facility] [place] [address] [place] [address] XRay Report Signed Patient: Genny Brewer MR#: [id number] : 1940 Acct:[id number] Age/Sex: 83 / F ADM Date: 10/27/23 Loc: Room: Type: [facility] Attending Dr: Reji Saenz DO Copies to: [...] Antonio Martinez M.D.10/27/2023 5:41 PM Dictation Location: [place] [address] Transcribed By: [facility] 10/27/23 174 Dictated By: Juan Antonio Martinez DO 10/27/23 1739 Signed By: 10/27/23 174 Normal [facility] David 07-25-2023 L Specimen: [id number] Received: 07/25/23 Status: WILLIAM Whitmore Num: [id number] Spec Type: Surgical Subm Dr: Sylvester Monk MD Tissues: A Colon Biopsy (RANDOM COLON BX) Procedures: HE/2, Gross/Micro L4 Age/ Patient Sex Location Account Attending Physician Genny Brewer 82/F [id number] Sylvester Monk MD SPEC NUM: [id number] RECD: 07/25/23 STATUS: WILLIAM WHITMORE NUM: [id number] YAMILKA: 07/25/23 DR: Sylvester Monk MD ENTERED: 07/25/23 [facility] DR: SPEC TYPE: Surgical DEPT: S ORDERED: [...] history, change in bowel habits. CPT Codes 40929 Specimen: [id number] Received: 07/25/23 Status: WILLIAM Whitmore Num: [id number] Spec Type: Surgical Subm Dr: Sylvester Monk MD Tissues: A Colon Biopsy (RANDOM COLON BX) Procedures: HE/2, Gross/Micro L4 Patient: Genny Brewer [id number] (Continued) Signed (signature on file) Kalpana Benavides MD 07/26/23 1240 Normal [facility] Capillary blood glucose cata urement by glucometer (mass/volume)Ordered By: Branden Du on 05-06-2023 Glucose [Mass/Vol] 93 mg/dL Normal [facility] Comment on above: Random Glucose Refer ence Range is dependent on time and content of last meal. Glucose of more than 200 mg/dL in a nonstressed, ambulatory subject supports the diagnosis of Diabetes Mellitus. Result Comment: [place] om Glucose Reference Range is dependent on time and content of last meal. Glucose of more than 200 mg/dL in a nonstressed, ambulatory subject supports the diagnosis of Diabetes Mellitus. PERFORMED BY: [address] [place] [address] PATHOLOGIST FIELD OPERATIONS TECHNICIAN KAYLIN ARDON M.D. Performed By: #### L IPID, CBC, HS TROP, BMP #### [address] [address] [facility] PET tumor init tx strat sb-m ton 05-06-2023 PET tumor init tx strat sb-mt [facility] Main [place] [address] [place] [address] Nuclear Medicine Report Signed Patient: Genny Brewer MR#: [id number] : 1940 Acct:[id number] Age/Sex: 82 / F ADM Date: 05/06/23 Loc: Room: Type: [facility] Attending Dr: Branden Du DO Copies to: [...] Rivas Jr., D.O.05/06/2023 1:35 PM Dictation Location: [place] [address] Transcribed By: [facility] 05/06/23 1335 Dictated By: Reginaldo Rivas Jr, DO 05/06/23 1326 Signed By: 05/06/23 1335 Normal [facility] Urinalysis - DIPSTICKon 06-0 Appearance (U) clear [employer] Other Bilirubin Ql (U) Negative [employer] Other Color (U) light yellow [email or web address] Other Glucose Ql (U) Negative [employer] Other Hemoglobin Ql (U) Negative [employer] Other Ketones Ql (U) Negative [employer] Other Leukocyte esterase Test strip Ql (U) Negative [email or web address] Other Nitrite Ql (U) Negative [employer] Other pH (U) 5.0 [pH] [email or web address] Other Protein Ql (U) Negative [employer] Other Specific gravity (U) [Rel density] 1.005 [email or web address] Other Urobilinogen (U) [Mass/Vol] 0.5 mg/dL [email or web address] Other Urinalysis - DIPSTICK [employer] Other CBC AUTO DIFFon 05-21-2022 BASO # 0.0 103/ul Normal 0.0-0.1 [facility] Comment on above: Performed By: #### C BC #### [facility] [address] [place] [address] Dr. Arlyn Chan Basophils/100 WBC (Bld) 0.6 % Normal 0.2-2.0 [facility] Comment on above: Performed By: #### C BC #### [facility] [address] [place] [address] [address] Arlyn Chan EO # 0.1 103/ul Normal 0.0-0.7 [facility] Comment on above: Performed By: #### C BC #### [facility] [address] [place] [address] [address] Arlyn Chan Eosinophils/100 WBC (Bld) 1.1 % Normal 0.9-7.0 [facility] Comment on above: Performed By: #### C BC #### [facility] [address] [place] [address] Dr. Arlyn Chan Erythrocyte distribution width (RBC) [Ratio] 13.6 % Normal 11.0-15.0 [facility] Comment on above: Performed By: #### C BC #### [facility] [address] [place] [address] Dr. Arlyn Chan Hematocrit (Bld) [Volume fraction] 44.3 % Normal 36.0-48.0 [facility] Comment on above: Performed By: #### C BC #### [facility] [address] [place] [address] Dr. Arlyn Chan Hemoglobin (Bld) [Mass/Vol] 14.8 g/dL Normal 12.0-16.0 [facility] Comment on above: Performed By: #### C BC #### [facility] [address] [place] [address] Dr. Arlyn Chan IG # 0.00 10e3/ul Normal 0.00-0.03 [facility] Comment on above: Performed By: #### C BC #### [facility] [address] [place] [address] Dr. Arlyn Chan IG % 0.0 % Normal 0.0-0.5 [facility] Comment on above: Performed By: #### C BC #### [facility] [address] [place] [address] Dr. Arlyn Chan LYMPH # 1.7 103/ul Normal 1.2-3.8 [facility] Comment on above: Performed By: #### C BC #### [facility] [address] [place] [address] Dr. Arlyn Chan Lymphocytes/100 WBC (Bld) 31.1 % Normal 20.5-60.0 [facility] Comment on above: Performed By: #### C BC #### [facility] [address] [place] [address] Dr. Arlyn Chan MANUAL DIFF REQ NO Normal [facility] Comment on above: Performed By: #### C BC #### [facility] [address] [place] [address] Dr. Arlyn Chan MCH (RBC) [Entitic mass] 31.9 pg Normal 26.7-34.0 [facility] Comment on above: Performed By: #### C BC #### [facility] [address] [place] [address] Dr. Arlyn Chan MCHC (RBC) [Mass/Vol] 33.4 g/dL Normal 29.9-35.2 [facility] Comment on above: Performed By: #### C BC #### [facility] [address] [place] [address] Dr. Arlyn Chan MCV (RBC) [Entitic vol] 95.5 fL Normal 81.0-99.0 [facility] Comment on above: Performed By: #### C BC #### [facility] [address] [place] [address] Dr. Arlyn Chan MONO # 0.5 103/ul Normal 0.3-0.8 [facility] Comment on above: Performed By: #### C BC #### [facility] [address] [place] [address] Dr. Arlyn Chan Monocytes/100 WBC (Bld) 8.8 % Normal 1.7-12.0 [facility] Comment on above: Performed By: #### C BC #### [facility] [address] [place] [address] Dr. Arlyn Chan NEUT # 3.1 103/ul Normal 1.4-6.5 [facility] Comment on above: Performed By: #### C BC #### [facility] [address] [place] [address] Dr. Arlyn Chan Neutrophils/100 WBC (Bld) 58.4 % Normal 43.0-75.0 [facility] Comment on above: Performed By: #### C BC #### [facility] [address] [place] [address] Dr. Arlyn Chan Platelet mean volume (Bld) [Entitic vol] 10.0 fL Normal 9.5-13.5 [facility] Comment on above: Performed By: #### C BC #### [facility] [address] [place] [address] [address] Arlyn Chan PLT 242 103/ul Normal 150-450 [facility] Comment on above: Performed By: #### C BC #### [facility] [address] [place] [address] [address] Arlyn Chan RBC 4.64 106/ul Normal 4.20-5.40 [facility] Comment on above: Performed By: #### C BC #### [facility] [address] [place] [address] [address] Arlyn Chan WBC 5.4 103/ul Normal 4.0-11.0 [facility] Comment on above: Performed By: #### C BC #### [facility] [address] [place] [address] Dr. Arlyn Chan PROF CHEM 8 (BAS METB)on Anion gap [Moles/Vol] 13.9 mmol/L Normal [facility] Comment on above: Performed By: #### H STROPN, BMP #### [facility] [address] [place] [address] Dr. Arlyn Chan Calcium [Mass/Vol] 9.4 mg/dL Normal 8.5-10.1 [facility] Comment on above: Performed By: #### H STROPN, BMP #### [facility] [address] [place] [address] Dr. Arlyn Chan Chloride [Moles/Vol] 105 mmol/L Normal 98-107 [facility] Comment on above: Performed By: #### H STROPN, BMP #### [facility] [address] [place] [address] Dr. Arlyn Chan CO2 [Moles/Vol] 24.3 mmol/L Normal 21.0-32.0 [facility] Comment on above: Performed By: #### H STROPN, BMP #### [facility] [address] [place] [address] Dr. Arlyn Chan Creatinine [Mass/Vol] 0.76 mg/dL Normal 0.55-1.02 [facility] Comment on above: Performed By: #### H STROPN, BMP #### [facility] [address] [place] [address] [address] Arlyn Chan EGFR-AF CANADIAN >60 Normal >=60 [facility] Comment on above: Performed By: #### H STROPN, BMP #### [facility] [address] [place] [address] [address] Arlyn Chan EGFR-NON AF CANADIAN >60 Normal >=60 [facility] Comment on above: Performed By: #### H STROPN, BMP #### [facility] [address] [place] [address] [address] Arlyn Chan Glucose [Mass/Vol] 96 mg/dL Normal 74-106 [facility] Comment on above: Performed By: #### H STROPN, BMP #### [facility] [address] [place] [address] [address] Arlyn Chan Potassium [Moles/Vol] 4.2 mmol/L Normal 3.5-5.1 [facility] Comment on above: Performed By: #### H STROPN, BMP #### [facility] [address] [place] [address] [address] Arlyn Chan Sodium [Moles/Vol] 139 mmol/L Normal 136-145 [facility] Comment on above: Performed By: #### H STROPN, BMP #### [facility] [address] [place] [address] [address] Arlyn Chan Urea nitrogen [Mass/Vol] 21.0 mg/dL Critically high 7.0-18.0 [facility] Comment on above: Performed By: #### H STROPN, BMP #### [facility] [address] [place] [address] [address] Arlyn Chan Urea nitrogen/Creatinine [Mass ratio] 27.6 mg/mg Normal [facility] Comment on above: Performed By: #### H STROPN, BMP #### [facility] [address] [place] [address] [address] Arlyn Chan Progress Noteson 05-21-2022 [employer]person [employer] Authentication Interface Message Text EMERGENCY TRIAGE, TREAT AND TRANSPORT (ET3) DOCUMENTATION OF TELEHEALTH VISIT Date / Time: 05/21/202245 Name: Genny Brewer : 1940 SSN: (Not on file) EMS Agency: [facility] [x] Verbal consent obtained [] Implied [...] the typically is not available at a [place] primary care physician's office. Patient declined using ambulance go to the ER, and her daughter who was present on scene will drive her the 4 minutes will take to get to the [facility]. I advised her to call 911 [...] Completed by: Sudheer Haro MD Normal [facility] TROPONIN, HIGH SENSITIVITYon 05-21-2022 HSTROP 5.9 pg/mL Normal 4.0-51.3 [facility] Comment on above: Result Comment: CUT- OFF POINTS HAVE BEEN ESTABLISHED BASED ON THE FOURTH UNIVERSAL DEFINITIONS OF MYOCARDIAL INFARCTION. THE UPPER REFERENCE LIMIT (URL) OF TROPONIN, DEFINED THE 99TH PERCENTILE OF cTnI DISTRIBUTION IN A REFERENCE POPULATION, HAS BEEN CONFIRMED THE DECISION THRESHOLD FOR VT DIAGNOSIS. Performed By: #### H YURI, [facility] #### [facility] [address] [place] [address] Dr. Arlyn Chan MG MAMM SCREEN 3D VINNY CADon 02-08-2022 MG MAMM SCREEN 3D VINNY CAD Patient: GENNY BREWER Exam Date: 02/08/2022 : 1940 Gender:F Ordering : DR BRANDEN DU D.O. Admission #: [id number] Family : Order #: [id number] CLICK HERE TO VIEW EXAM RADIOLOGY REPORT [...] bowel resection Family Cancers None LOCATION: [facility] BREAST COMPOSITION: Scattered areas fibroglandular density. [...] Addison MD on 02/08/2022 at 14:[address] [facility] [address] CHEST WO CONon 08-11-2021 CT [...] by: JOAQUIN SOTO Date: 2021-08-11 17:29 Normal [facility] Vital Signs Date Time Vital Sign Value Performing Clinician Facility 09-29-2024 14:31-0400 Body height 154.9 cm Vanessa WATKINS Work Phone: [facility] 09-29-2024 14:31-0400 Body mass index (BMI) [Ratio] 26.72 kg/m2 Vanessa Dave APRNReDent NovaMATERIAL PLANNING ANALYST Work Phone: [facility] 09-29-2024 14:31-0400 Body weight 64.14 kg Vanessa WATKINS Work Phone: [facility] 09-29-2024 14:31-0400 Diastolic blood pressure 80 mm[Hg] Vanessa WATKINS Work Phone: [facility] 09-29-2024 14:31-0400 Heart rate 64 /min Vanessa Dave GEOMORPHOLOGIST-MATERIAL PLANNING ANALYST Work Phone: [facility] 09-29-2024 14:31-0400 Systolic blood pressure 140 mm[Hg] Vanessa Dave GEOMORPHOLOGIST-MATERIAL PLANNING ANALYST Work Phone: [facility] 09-29-2024 13:18-0400 Diastolic blood pressure 88 mm[Hg] Branden Ball DO Work Phone: [facility] 09-29-2024 13:18-0400 Systolic blood pressure 152 mm[Hg] Branden Ball DO Work Phone: [facility] 09-29-2024 13:15-0400 Body height 154.94 cm Branden Ball DO Work Phone: [facility] 09-29-2024 13:15-0400 Body mass index (BMI) [Ratio] 26.4 kg/m2 Branden Ball DO Work Phone: [facility] 09-29-2024 13:15-0400 Body weight 63.5 kg Branden Ball DO Work Phone: [facility] 09-29-2024 13:15-0400 Heart rate 60 /min Branden Ball DO Work Phone: [facility] 09-29-2024 13:15-0400 Respiratory rate 20 /min Branden Ball DO Work Phone: [facility] 09-29-2024 13:15-0400 SaO2% (BldA) [Mass fraction] 98 % Branden Ball DO Work Phone: [facility] 08-19-2024 13:31-0400 Body height 154.94 cm [facility] 08-19-2024 13:31-0400 Body mass index (BMI) [Ratio] 26.6 kg/m2 [facility] 08-19-2024 13:31-0400 Body weight 64.12 kg [facility] 08-19-2024 13:31-0400 Diastolic blood pressure 80 mm[Hg] [facility] 08-19-2024 13:31-0400 Heart rate 84 /min [facility] 08-19-2024 13:31-0400 Respiratory rate 12 /min [facility] 08-19-2024 13:31-0400 SaO2% (BldA) [Mass fraction] 99 % [facility] 08-19-2024 13:31-0400 Systolic blood pressure 127 mm[Hg] [facility] 08-05-2024 13:50-0400 Body height 154.9 cm Vanessa Dave GEOMORPHOLOGIST-MATERIAL PLANNING ANALYST Work Phone: [facility] 08-05-2024 13:50-0400 Body mass index (BMI) [Ratio] 27.4 kg/m2 Vanessa Dave GEOMORPHOLOGIST-MATERIAL PLANNING ANALYST Work Phone: [facility] 08-05-2024 13:50-0400 Body weight 65.77 kg Vanessa Dave GEOMORPHOLOGIST-MATERIAL PLANNING ANALYST Work Phone: [facility] 08-05-2024 13:50-0400 Diastolic blood pressure 70 mm[Hg] Vanessa Dave GEOMORPHOLOGIST-MATERIAL PLANNING ANALYST Work Phone: [facility] 08-05-2024 13:50-0400 Heart rate 72 /min Vanessa Dave GEOMORPHOLOGIST-MATERIAL PLANNING ANALYST Work Phone: [facility] 08-05-2024 13:50-0400 Systolic blood pressure 122 mm[Hg] Vanessa Dave GEOMORPHOLOGIST-MATERIAL PLANNING ANALYST Work Phone: [facility] 07-20-2024 11:18-0400 Body height 154.94 cm [facility] 07-20-2024 11:18-0400 Body mass index (BMI) [Ratio] 26.4 kg/m2 [facility] 07-20-2024 11:18-0400 Body weight 63.5 kg [facility] 07-20-2024 11:18-0400 Diastolic blood pressure 86 mm[Hg] [facility] 07-20-2024 11:18-0400 Heart rate 63 /min [facility] 07-20-2024 11:18-0400 Systolic blood pressure 138 mm[Hg] [facility] 05-27-2024 11:23-0500 Body height 154.9 cm Inderjit Saenz Work Phone: [facility] 05-27-2024 11:23-0500 Body mass index (BMI) [Ratio] 27.02 kg/m2 Inderjit Saenz DO Work Phone: [facility] 05-27-2024 11:23-0500 Body weight 64.86 kg Inderjit Saenz DO Work Phone: [facility] 05-27-2024 11:23-0500 Diastolic blood pressure 72 mm[Hg] Inderjit Saenz DO Work Phone: [facility] 05-27-2024 11:23-0500 Heart rate 60 /min Inderjit Saenz DO Work Phone: [facility] 05-27-2024 11:23-0500 Systolic blood pressure 110 mm[Hg] Inderjit Saenz DO Work Phone: [facility] 05-12-2024 13:38-0500 Body height 154.94 cm [facility] 05-12-2024 13:38-0500 Body mass index (BMI) [Ratio] 26.4 kg/m2 [facility] 05-12-2024 13:38-0500 Body weight 63.5 kg [facility] 05-12-2024 13:38-0500 Diastolic blood pressure 85 mm[Hg] [facility] 05-12-2024 13:38-0500 Heart rate 68 /min [facility] 05-12-2024 13:38-0500 Respiratory rate 12 /min [facility] 05-12-2024 13:38-0500 Systolic blood pressure 128 mm[Hg] [facility] 03-12-2024 10:45-0500 Body height 154.94 cm [facility] 03-12-2024 10:45-0500 Body mass index (BMI) [Ratio] 27 kg/m2 [facility] 03-12-2024 10:45-0500 Body weight 64.86 kg [facility] 03-12-2024 10:45-0500 Diastolic blood pressure 66 mm[Hg] [facility] 03-12-2024 10:45-0500 Heart rate 60 /min [facility] 03-12-2024 10:45-0500 Respiratory rate 20 /min [facility] 03-12-2024 10:45-0500 SaO2% (BldA) [Mass fraction] 98 % [facility] 03-12-2024 10:45-0500 Systolic blood pressure 156 mm[Hg] [facility] 03-11-2024 13:04-0500 Body height 154.94 cm [facility] 03-11-2024 13:04-0500 Body mass index (BMI) [Ratio] 27.8 kg/m2 [facility] 03-11-2024 13:04-0500 Body weight 66.9 kg [facility] 03-09-2024 16:23-0500 Body height 154.94 cm [facility] 03-09-2024 16:23-0500 Body mass index (BMI) [Ratio] 27.8 kg/m2 [facility] 03-09-2024 16:23-0500 Body weight 66.79 kg [facility] 03-09-2024 16:23-0500 Diastolic blood pressure 81 mm[Hg] [facility] 03-09-2024 16:23-0500 Heart rate 70 /min [facility] 03-09-2024 16:23-0500 Respiratory rate 12 /min [facility] 03-09-2024 16:23-0500 Systolic blood pressure 157 mm[Hg] [facility] 12-20-2023 10:40-0400 Body height 154.9 cm Inderjit Saenz DO Work Phone: [facility] 12-20-2023 10:40-0400 Body mass index (BMI) [Ratio] 27.02 kg/m2 Inderjit Saenz DO Work Phone: [facility] 12-20-2023 10:40-0400 Body weight 64.86 kg Inderjit Saenz DO Work Phone: [facility] 12-20-2023 10:40-0400 Diastolic blood pressure 86 mm[Hg] Inderjit Saenz DO Work Phone: [facility] 12-20-2023 10:40-0400 Heart rate 57 /min Inderjit Saenz DO Work Phone: [facility] 12-20-2023 10:40-0400 Systolic blood pressure 120 mm[Hg] Inderjit Saenz DO Work Phone: [facility] 12-12-2023 13:21-0400 Body height 154.94 cm PA-C Doechanel Álvarez Work Phone: [facility] 12-12-2023 13:21-0400 Body mass index (BMI) [Ratio] 26.6 kg/m2 PA-C Doechanel Álvarez Work Phone: [facility] 12-12-2023 13:21-0400 Body weight 64 kg PA-C Doe Álvarez Work Phone: [facility] 12-04-2023 15:49-0400 Body height 154.94 cm PA-C Doechanel Álvarez Work Phone: [facility] 12-04-2023 15:49-0400 Body mass index (BMI) [Ratio] 26.9 kg/m2 PA-C Doechanel Álvarez Work Phone: [facility] 12-04-2023 15:49-0400 Body weight 64.58 kg PA-C Doehcanel Álvarez Work Phone: [facility] 12-04-2023 15:49-0400 Diastolic blood pressure 83 mm[Hg] PA-C Doe Álvarez Work Phone: [facility] 12-04-2023 15:49-0400 Heart rate 71 /min PA-C Doechanel Álvarez Work Phone: [facility] 12-04-2023 15:49-0400 Respiratory rate 12 /min PA-C Doe Álvarez Work Phone: [facility] 12-04-2023 15:49-0400 Systolic blood pressure 151 mm[Hg] PA-C Doe Álvarez Work Phone: [facility] 11-12-2023 11:55-0400 Body height 154.94 cm PA-C Doe Álvarez Work Phone: [facility] 11-12-2023 11:55-0400 Body mass index (BMI) [Ratio] 27.3 kg/m2 PA-C Doe Álvarez Work Phone: [facility] 11-12-2023 11:55-0400 Body weight 65.48 kg PA-C Doe Álvarez Work Phone: [facility] 11-12-2023 11:55-0400 Diastolic blood pressure 84 mm[Hg] PA-C Doe Álvarez Work Phone: [facility] 11-12-2023 11:55-0400 Heart rate 57 /min PA-C Doe Álvarez Work Phone: [facility] 11-12-2023 11:55-0400 Respiratory rate 12 /min PA-C Doe Álvarez Work Phone: [facility] 11-12-2023 11:55-0400 Systolic blood pressure 144 mm[Hg] PA-C Doe Álvarez Work Phone: [facility] 11-07-2023 10:05-0400 Body height 154.9 cm Inderjit Saenz DO Work Phone: [facility] 11-07-2023 10:05-0400 Body mass index (BMI) [Ratio] 26.83 kg/m2 Inderjit Saenz DO Work Phone: [facility] 11-07-2023 10:05-0400 Body weight 64.41 kg Inderjit Saenz DO Work Phone: [facility] 11-07-2023 10:05-0400 Diastolic blood pressure 68 mm[Hg] Inderjit Saenz DO Work Phone: [facility] 11-07-2023 10:05-0400 Heart rate 82 /min Inderjit Saenz DO Work Phone: [facility] 11-07-2023 10:05-0400 Systolic blood pressure 118 mm[Hg] Inderjit Saenz DO Work Phone: [facility] 11-05-2023 11:37-0400 Diastolic blood pressure 61 mm[Hg] PA-C Doe Álvarez Work Phone: [facility] 11-05-2023 11:37-0400 Heart rate 63 /min PA-C Doe Álvarez Work Phone: [facility] 11-05-2023 11:37-0400 Respiratory rate 20 /min PA-C Doe Álvarez Work Phone: [facility] 11-05-2023 11:37-0400 SaO2% (BldA) [Mass fraction] 98 % PA-C Doe Álvarez Work Phone: [facility] 11-05-2023 11:37-0400 Systolic blood pressure 143 mm[Hg] PA-C Doe Álvarez Work Phone: [facility] 11-05-2023 09:10-0400 Body temperature 97.8 [degF] PA-C Doe Álvarez Work Phone: [facility] 11-05-2023 07:18-0400 Body height 154.94 cm PA-C Doe Álvarez Work Phone: [facility] 11-05-2023 07:18-0400 Body weight 65.77 kg PA-C Doe Álvarez Work Phone: [facility] 10-29-2023 16:00-0400 Body temperature 98.2 [degF] PA-C Doe Álvarez Work Phone: [facility] 10-29-2023 16:00-0400 Diastolic blood pressure 88 mm[Hg] PA-C Doe Álvarez Work Phone: [facility] 10-29-2023 16:00-0400 Heart rate 58 /min PA-C Doe Álvarez Work Phone: [facility] 10-29-2023 16:00-0400 Respiratory rate 16 /min PA-C Doe Álvarez Work Phone: [facility] 10-29-2023 16:00-0400 SaO2% (BldA) [Mass fraction] 96 % PA-C Doe Álvarez Work Phone: [facility] 10-29-2023 16:00-0400 Systolic blood pressure 140 mm[Hg] PA-C Doe Álvarez Work Phone: [facility] 10-29-2023 06:00-0400 Body weight 65.6 kg PA-C Doe Álvarez Work Phone: [facility] 10-29-2023 06:00-0400 Inhaled oxygen flow rate 2 L/min PA-C Doe Álvarez Work Phone: [facility] 10-27-2023 21:42-0400 Body height 154.94 cm PA-C Doe Álvarez Work Phone: [facility] 10-27-2023 19:05-0400 Diastolic blood pressure 64 mm[Hg] PA-C Doe Álvarez Work Phone: [facility] 10-27-2023 19:05-0400 Heart rate 75 /min PA-C Doe Álvarez Work Phone: [facility] 10-27-2023 19:05-0400 Respiratory rate 28 /min PA-C Doe Álvarez Work Phone: [facility] 10-27-2023 19:05-0400 SaO2% (BldA) [Mass fraction] 96 % PA-C Doe Álvarez Work Phone: [facility] 10-27-2023 19:05-0400 Systolic blood pressure 120 mm[Hg] FLAKITA Álvarez Work Phone: [facility] 10-27-2023 17:31-0400 Body temperature 97.9 [degF] FLAKITA Álvarez Work Phone: [facility] 10-27-2023 17:11-0400 Body height 154.94 cm FLAKITA Álvarez Work Phone: [facility] 10-27-2023 [id number] Body weight 66.3 kg FLAKITA Álvarez Work Phone: [facility] 06-20-2023 14:32-0400 Body height 165.1 cm DO Branden Ball Work Phone: [facility] 06-20-2023 14:32-0400 Body mass index (BMI) [Ratio] 24.4 kg/m2 DO Branden Ball Work Phone: [facility] 06-20-2023 14:32-0400 Body weight 66.67 kg DO Branden Ball Work Phone: [facility] 06-20-2023 14:32-0400 Diastolic blood pressure 77 mm[Hg] DO Branden Ball Work Phone: [facility] 06-20-2023 14:32-0400 Heart rate 83 /min DO Branden Ball Work Phone: [facility] 06-20-2023 14:32-0400 Systolic blood pressure 150 mm[Hg] DO Branden Ball Work Phone: [facility] 06-07-2023 09:28-0400 Body height 165.1 cm DO Branden Ball Work Phone: [facility] 06-07-2023 09:28-0400 Body mass index (BMI) [Ratio] 24.6 kg/m2 DO Branden Ball Work Phone: [facility] 06-07-2023 09:28-0400 Body weight 67.18 kg DO Branden Ball Work Phone: [facility] 06-07-2023 09:28-0400 Diastolic blood pressure 87 mm[Hg] DO Branden Ball Work Phone: [facility] 06-07-2023 09:28-0400 Heart rate 77 /min DO Branden Ball Work Phone: [facility] 06-07-2023 09:28-0400 Respiratory rate 12 /min DO Branden Ball Work Phone: [facility] 06-07-2023 09:28-0400 Systolic blood pressure 146 mm[Hg] DO Branden Ball Work Phone: [facility] 05-21-2023 10:24-0500 Body height 165.1 cm DO Branden Ball Work Phone: [facility] 05-21-2023 10:24-0500 Body mass index (BMI) [Ratio] 24.3 kg/m2 DO Branden Ball Work Phone: [facility] 05-21-2023 10:24-0500 Body weight 66.22 kg DO Branden Ball Work Phone: [facility] 05-21-2023 10:24-0500 Diastolic blood pressure 81 mm[Hg] DO Branden Ball Work Phone: [facility] 05-21-2023 10:24-0500 Heart rate 71 /min DO Branden Ball Work Phone: [facility] 05-21-2023 10:24-0500 Respiratory rate 16 /min DO Branden Ball Work Phone: [facility] 05-21-2023 10:24-0500 Systolic blood pressure 131 mm[Hg] DO Branden Ball Work Phone: [facility] 04-12-2023 11:30-0500 Body height 165.1 cm Branden Ball Other [facility] 04-12-2023 11:30-0500 Body mass index (BMI) [Ratio] 24.59 kg/m2 Branden Ball Other [facility] [employer] Other 04-12-2023 11:30-0500 Body weight 67.04 kg Branden Ball Other [facility] 04-12-2023 11:30-0500 Diastolic blood pressure 75 mm[Hg] Branden Ball Other [facility] 04-12-2023 11:30-0500 Respiratory rate 12 /min Branden Ball Other [facility] [employer] Other 04-12-2023 11:30-0500 Systolic blood pressure 122 mm[Hg] Branden Ball Other [facility] 03-26-2023 11:30-0500 Body height 165.1 cm Branden Ball Other [facility] 03-26-2023 11:30-0500 Body mass index (BMI) [Ratio] 24.89 kg/m2 Branden Ball Other [facility] [employer] Other 03-26-2023 11:30-0500 Body weight 67.86 kg Branden Ball Other [facility] [employer] Other 03-26-2023 11:30-0500 Body weight 67.85 kg DO Branden Ball Work Phone: [facility] 03-26-2023 11:30-0500 Diastolic blood pressure 82 mm[Hg] Branden Ball Other [facility] 03-26-2023 11:30-0500 Respiratory rate 12 /min Branden Ball Other [facility] [employer] Other 03-26-2023 11:30-0500 Systolic blood pressure 192 mm[Hg] Branden Ball Other [facility] 02-08-2023 13:30-0500 Body height 165.1 cm Branden Ball Other [facility] 02-08-2023 13:30-0500 Body mass index (BMI) [Ratio] 24.29 kg/m2 Branden Ball Other [employer] [facility] [employer] Other 02-08-2023 13:30-0500 Body weight 66.23 kg Branden Ball Other [email or web address] Other 02-08-2023 13:30-0500 Body weight 66.22 kg DO Branden Ball Work Phone: [facility] 02-08-2023 13:30-0500 Diastolic blood pressure 79 mm[Hg] Branden Ball Other [facility] 02-08-2023 13:30-0500 Respiratory rate 12 /min Branden Ball Other [employer] Other 02-08-2023 13:30-0500 Systolic blood pressure 128 mm[Hg] Branden Ball Other [facility] 08-27-2022 11:15-0400 Body height 165.1 cm Branden Ball Other [email or web address] Other 08-27-2022 11:15-0400 Body mass index (BMI) [Ratio] 24.06 kg/m2 Branden Ball Other [email or web address] Other 08-27-2022 11:15-0400 Body weight 65.59 kg Branden Ball Other [email or web address] Other 08-27-2022 11:15-0400 Diastolic blood pressure 83 mm[Hg] Branden Ball Other [email or web address] Other 08-27-2022 11:15-0400 Respiratory rate 12 /min Branden Ball Other [email or web address] Other 08-27-2022 11:15-0400 Systolic blood pressure 152 mm[Hg] Brnaden Ball Other [email or web address] Other 07-09-2022 15:00-0400 Body height 165.1 cm Branden Ball Other [email or web address] Other 07-09-2022 15:00-0400 Body mass index (BMI) [Ratio] 23.23 kg/m2 Branden Ball Other [email or web address] Other 07-09-2022 15:00-0400 Body weight 63.32 kg Branden Ball Other [email or web address] Other 07-09-2022 15:00-0400 Diastolic blood pressure 72 mm[Hg] Branden Ball Other [email or web address] Other 07-09-2022 15:00-0400 Respiratory rate 12 /min Branden Ball Other [email or web address] Other 07-09-2022 15:00-0400 Systolic blood pressure 134 mm[Hg] Branden Ball Other [employer] Other 05-21-2022 15:45-0500 Body height 165.1 cm Branden Ball Other [email or web address] Other 05-21-2022 15:45-0500 Body mass index (BMI) [Ratio] 24.56 kg/m2 Branden Ball Other [email or web address] Other 05-21-2022 15:45-0500 Body weight 66.95 kg Branden Ball Other [email or web address] Other 05-21-2022 15:45-0500 Diastolic blood pressure 82 mm[Hg] Branden Ball Other [employer] Other 05-21-2022 15:45-0500 Respiratory rate 12 /min Branden Du Other [employer] Other 05-21-2022 15:45-0500 Systolic blood pressure 136 mm[Hg] Branden Du Other [facility] [employer] Other 05-21-2022 09:45-0500 Diastolic blood pressure 92 mm[Hg] [facility] 05-21-2022 09:45-0500 Heart rate 72 /min [facility] 05-21-2022 09:45-0500 Respiratory rate 18 /min [facility] 05-21-2022 09:45-0500 SaO2% (BldA) [Mass fraction] 98 % [facility] 05-21-2022 09:45-0500 Systolic blood pressure 181 mm[Hg] [facility] Encounters Encounter Date Encounter Type Care Provider Facility Start: 09-29-2024 End: 09-29-2024 Office outpatient visit 15 minutes Vanessa Dave GEOMORPHOLOGIST-MATERIAL PLANNING ANALYST Work Phone: [facility] Comment on above: Essential hypertensi on (Primary Dx); Fatigue, unspecified type; BMI 26.0-26.9,adult Start: 09-29-2024 End: 09-29-2024 ambulatory Branden Du DO Work Phone: [facility] Work Phone: Start: 09-29-2024 End: 09-29-2024 Patient encounter procedure Sobia Okeefe MD -[facility] Work Phone: Start: 08-19-2024 End: 08-19-[address] [facility] Work Phone: Start: 08-19-2024 End: 08-19-2024 Patient encounter procedure [facility] Work Phone: Start: 08-05-2024 Non-patient / Non-visit [facility] [employer] [facility] [employer] [facility] Work Phone: Start: 08-05-2024 End: 08-05-2024 Office outpatient visit 25 minutes Vanessa Foreman Mayer GEOMORPHOLOGIST-MATERIAL PLANNING ANALYST Work Phone: [facility] Comment on above: Hyperlipidemia, unsp ecified hyperlipidemia type (Primary Dx); Coronary artery disease, unspecified vessel or lesion type, unspecified whether angina present, unspecified whether tonto apache or transplanted heart; History of ST elevation myocardial infarction (STEMI); Essential hypertension; BMI 27.0-27.9,adult; Fatigue, unspecified type; Shortness of breath Start: 08-05-2024 End: 08-05-2024 ambulatory [facility] Ambulatory Start: 07-20-2024 End: 07-20-2024 ambulatory [facility] Work Phone: Start: 07-20-2024 End: 07-20-2024 Patient encounter procedure [facility] Work Phone: Start: 05-27-2024 End: 05-27-2024 Office outpatient visit 15 minutes Inderjit Saenz DO Work Phone: [facility] Comment on above: Coronary artery dise ase, unspecified vessel or lesion type, unspecified whether angina present, unspecified whether tonto apache or transplanted heart; History of ST elevation myocardial infarction (STEMI); History of PTCA; Hyperlipidemia, unspecified hyperlipidemia type; Essential hypertension; BMI 27.0-27.9,adult; Former smoker Start: 05-27-2024 End: 05-27-2024 ambulatory [facility] Ambulatory Start: 05-12-2024 End: 05-12-2024 ambulatory [facility] Work Phone: Start: 05-12-2024 End: 05-12-2024 Patient encounter procedure [facility] Work Phone: Start: 04-28-2024 Non-patient / Non-visit [facility] Work Phone: Start: 03-12-2024 End: 03-12-2024 Patient encounter procedure [facility] Work Phone: Start: 03-11-2024 End: 03-11-2024 Patient encounter procedure [facility] Work Phone: Start: 03-09-2024 End: 03-09-2024 Patient encounter procedure [facility] Work Phone: Start: 03-07-2024 Patient encounter procedure [facility] Start: 03-06-2024 Non-patient / Non-visit [facility] Work Phone: Start: 12-20-2023 End: 12-20-2023 [facility] Comment on above: Near syncope; Fatigue, unspecified type; History of PTCA; Essential hypertension; History of ST elevation myocardial infarction (STEMI); Shortness of breath; Coronary artery disease, unspecified vessel or lesion type, unspecified whether angina present, unspecified whether tonto apache or transplanted heart; Former smoker; BMI 27.0-27.9,adult Start: 12-20-2023 End: 12-20-2023 ambulatory [facility] Ambulatory Start: 12-12-2023 End: 12-12-2023 ambulatory FLAKITA Álvarez Work Phone: [facility] Work Phone: Start: 12-12-2023 End: 12-12-2023 Patient encounter procedure FLAKITA Álvarez Work Phone: [facility] Gastroenter[facility] Work Phone: Start: 12-04-2023 End: 12-04-2023 ambulatory FLAKITA Álvarez Work Phone: [facility] Work Phone: Start: 12-04-2023 End: 12-04-2023 Patient encounter procedure FLAKITA Álvarez Work Phone: [facility] Work Phone: Start: 11-12-2023 End: 11-12-2023 ambulatory PA-C Doe Álvarez Work Phone: [facility] Work Phone: Start: 11-12-2023 End: 11-12-2023 Patient encounter procedure PA-Heri Álvarez Work Phone: [facility] Work Phone: Start: 11-07-2023 End: 11-07-2023 ambulatory [facility] Ambulatory Start: 11-07-2023 End: 11-07-2023 Transitional care manage srvc 7 day discharge [facility] Work Phone: [facility] Comment on above: Coronary artery dise ase, unspecified vessel or lesion type, unspecified whether angina present, unspecified whether tonto apache or transplanted heart; History of PTCA; History of ST elevation myocardial infarction (STEMI); Shortness of breath; Former smoker; BMI 26.0-26.9,adult; Hyperlipidemia, unspecified hyperlipidemia type Start: 11-05-2023 Non-patient / Non-visit PA-C A amanda Álvarez Work Phone: [facility] Work Phone: Start: 11-05-2023 End: 11-05-2023 Emergency department patient visit PA-Heri Álvarez Work Phone: [facility]-Emergency Room Work Phone: Start: 10-28-2023 Non-patient / Non-visit PA-C Evelyn Álvarez Work Phone: [facility] Pulmonary Disease Work Phone: Start: 10-27-2023 End: 10-29-2023 Evaluation and management of inpatient IGNACIA-Heri Álvarez Work Phone: [facility] [place] [facility] Work Phone: Start: 07-25-2023 End: 07-25-2023 ambulatory Sylvester Monk Facility:[facility] Start: 06-20-2023 End: 06-20-2023 ambulatory DO Branden Ball Work Phone: [facility] Work Phone: Start: 06-20-2023 End: 06-20-2023 Patient encounter procedure DO Branden Ball Work Phone: [facility] Gastroenterology Work Phone: Start: 06-07-2023 End: 06-07-2023 ambulatory DO Branden Ball Work Phone: [facility] Work Phone: Start: 06-07-2023 End: 06-07-2023 Patient encounter procedure DO Branden Ball Work Phone: [facility] Work Phone: Start: 05-21-2023 End: 05-21-2023 Patient encounter procedure DO Branden Ball Work Phone: [facility] Work Phone: Start: 05-06-2023 End: 05-06-2023 Patient encounter procedure DO Branden Ball Work Phone: [facility] Work Phone: Start: 05-06-2023 End: 05-06-2023 ambulatory DO Branden Ball Work Phone: [facility] Work Phone: Start: 04-24-2023 End: 04-24-2023 ambulatory ELENA HASSAN Not Available Start: 04-23-2023 End: 04-23-2023 ambulatory Branden Ball Other [email or web address] Other Start: 04-23-2023 Telephone encounter Branden ALAS [facility] Start: 04-22-2023 End: 04-22-2023 ambulatory Branden Ball Other [email or web address] Other Start: 04-22-2023 Telephone encounter Branden ALAS [facility] Start: 04-17-2023 End: 04-17-2023 ambulatory Branden Ball Other [email or web address] Other Start: 04-17-2023 Telephone encounter Branden Ball FP [facility] Start: 04-12-2023 End: 04-12-2023 ambulatory Branden Ball Other [email or web address] Other Start: 04-12-2023 Office outpatient vi sit 15 minutes Branden Ball [facility] Start: 04-12-2023 Telephone encounter Branden Ball FP [facility] Start: 04-12-2023 End: 04-12-2023 Patient encounter procedure DO Branden Ball Work Phone: [facility]- Start: 04-08-2023 End: 04-08-2023 ambulatory Branden Ball Other [email or web address] Other Start: 04-08-2023 Telephone encounter Branden Ball FP [facility] Start: 04-01-2023 End: 04-01-2023 ambulatory Branden Ball Other [email or web address] Other Start: 04-01-2023 Telephone encounter Branden Ball FP [facility] Start: 03-27-2023 End: 03-27-2023 ambulatory Branden Ball Other [email or web address] Other Start: 03-27-2023 Telephone encounter Branden Ball FP [facility] Start: 03-26-2023 End: 03-26-2023 ambulatory Branden Ball Other [email or web address] Other Start: 03-26-2023 Office outpatient vi sit 15 minutes Branden Ball [facility] Start: 03-26-2023 End: 03-26-2023 Patient encounter procedure DO Branden Ball Work Phone: [facility] Work Phone: Start: 03-14-2023 End: 03-14-2023 ambulatory Branden Ball Other [email or web address] Other Start: 03-14-2023 Telephone encounter Branden Du FP [facility] Start: 02-19-2023 End: 02-19-2023 ambulatory Branden Du Other [email or web address] Other Start: 02-19-2023 Telephone encounter Branden Du FP [facility] Start: 02-08-2023 End: 02-08-2023 ambulatory Branden Du Other [email or web address] Other Start: 02-08-2023 Patient encounter procedure Branden Du [facility] Start: 02-08-2023 End: 02-08-2023 Patient encounter procedure DO Branden Du Work Phone: [facility] Work Phone: Start: 09-20-2022 End: 09-20-2022 ambulatory Branden Du Other [email or web address] Other Start: 09-20-2022 Telephone encounter Branden Du FP [facility] Start: 08-27-2022 End: 08-27-2022 ambulatory Branden Du Other [email or web address] Other Start: 08-27-2022 Office outpatient vi sit 15 minutes Branden Ball [facility] Start: 08-24-2022 End: 08-24-2022 ambulatory Branden Du Other [email or web address] Other Start: 08-24-2022 Nursing evaluation o f patient and report Branden Du [facility] Start: 07-09-2022 End: 07-09-2022 ambulatory Branden Philly Other [email or web address] Other Start: 07-09-2022 Office outpatient vi sit 15 minutes Branden Ball [facility] Start: 06-12-2022 End: 06-12-2022 ambulatory Branden Ball Other [email or web address] Other Start: 03-21-2023 Telephone encounter Branden Ball [facility] Start: 06-11-2022 End: 06-11-2022 ambulatory Branden Du Other [email or web address] Other Start: 06-11-2022 Telephone encounter Branden Du [facility] Start: 05-22-2022 End: 05-22-2022 ambulatory Branden Du Other [email or web address] Other Start: 05-22-2022 Telephone encounter Branden Lowe [facility] Start: 05-21-2022 Office outpatient vi sit 15 minutes Branden Philly [facility] Start: 05-21-2022 End: 05-23-[address] BRANDEN DU Facility:[facility]1 Start: 05-21-2022 End: 05-21-2022 ambulatory [facility] Transport Start: 05-21-2022 End: 05-21-2022 Emergency department patient visit [facility] Triage, Treat and Transport Comment on above: Arrived Start: 05-04-2022 End: 05-04-2022 ambulatory Branden Du Other [email or web address] Other Start: 05-04-2022 Telephone encounter Branden Philly Du [facility] Start: 05-03-2022 End: 05-03-2022 ambulatory Branden Du Other [email or web address] Other Start: 05-03-2022 Telephone encounter Branden Du BISHOP Lowe [facility] Start: 02-08-2022 End: 02-09-2022 ambulatory [...] of PTCA Inderjit Saenz DO Work Phone: History of percutane ous transluminal coronary angioplasty History of PTCA Inderjit Saenz DO Work Phone: Plan of Treatment Date Care Activity Detail Author Start: 01-27-2025 End: 01-27-2025 Patient encounter procedure 01/27/2025 1:00 PM EST Office Visit [address] [address] Vanessa Dave, GEOMORPHOLOGIST-MATERIAL PLANNING ANALYST [address] [facility] [address] [place], [place] [id number] [facility] Start: 11-23-2024 Influenza vaccination Influenza Vacc ine (#1) [facility] Start: 11-03-2024 End: 11-03-2024 Patient encounter procedure 11/03/2024 2:00 PM EDT Office Visit [address] [place] [address] Vanessa Dave, GEOMORPHOLOGIST-MATERIAL PLANNING ANALYST [address] [facility] [address] [place], [place] [id number] [facility] Start: 09-08-2024 End: 09-08-2024 Patient encounter procedure 09/08/2024 1:00 PM EDT Office Visit [facility] [address] [place] [id number] Vanessa Dave, GEOMORPHOLOGIST-MATERIAL PLANNING ANALYST [address] [place] [address] [facility] Start: 08-05-2024 End: 08-05-2025 Basic metabolic 2000 panel - Serum or Plasma Basic Metabolic Panel Lab Routine Coronary artery disease, unspecified vessel or lesion type, unspecified whether angina present, unspecified whether tonto apache or transplanted heart Essential hypertension Fatigue, unspecified type Expected: 08/05/2024 (Approximate), Expires: 08/05/2025 [facility] Service Area Work Phone: Comment on above: Expected: 08/05/2024 (Approximate), Expires: 08/05/2025 Start: 08-05-2024 End: 08-05-2025 CBC panel - Blood by Automated count CBC Lab Routine Coronary artery disease, unspecified vessel or lesion type, unspecified whether angina present, unspecified whether tonto apache or transplanted heart Essential hypertension Fatigue, unspecified type Expected: 08/05/2024 (Approximate), Expires: 08/05/2025 [facility] Work Phone: Comment on above: Expected: 08/05/2024 (Approximate), Expires: 08/05/2025 Start: 08-05-2024 End: 08-05-2025 Thyrotropin [Units/volume] in Serum or Plasma Thyroid Stimulating Hormone Lab Routine Coronary artery disease, unspecified vessel or lesion type, unspecified whether angina present, unspecified whether tonto apache or transplanted heart Essential hypertension Fatigue, unspecified type Expected: 08/05/2024 (Approximate), Expires: 08/05/2025 [facility] Work Phone: Comment on above: Expected: 08/05/2024 (Approximate), Expires: 08/05/2025 Start: 06-03-2024 COVID-19 Vaccine (7 - 2024-25 season) COVID-19 Vaccine ( season) [facility] Start: 05-27-2024 End: 05-27-2024 Patient encounter procedure 05/27/2024 10:50 AM EST Office Visit [facility] [address] [place] [address] Inderjit Saenz, DO [address] [place] [address] [facility] Start: 03-11-2024 End: 03-11-2024 Patient encounter procedure 03/11/2024 10:40 AM EST Office Visit [facility] [address] [place] [address] Inderjit Saenz, DO [address] [place] [address] [facility] Start: 11-24-2023 Influenza vaccination Influenza Vacc ine (#1) [facility] Start: 10-29-2023 [facility] Start: 10-27-2023 Consultation [facility] Start: 10-27-2023 Hospital admission [facility] Start: 10-27-2023 Referral to cardiac rehabilitation program [facility] Start: 10-27-2023 [facility] Start: 10-27-2023 End: 10-27-2023 [facility] Start: 10-27-2023 Dilation of Coronary Artery, One Artery with Drug-eluting Intraluminal Device, Percutaneous Approach Dilation of Coronary Artery, One Artery with Drug-eluting Intraluminal Device, Percutaneous Approach [facility] Start: 10-27-2023 Fluoroscopy of Left Heart using Low Osmolar Contrast Fluoroscopy of Left Heart using Low Osmolar Contrast [facility] Start: 10-27-2023 Fluoroscopy of Multi ple Coronary Arteries using Low Osmolar Contrast Fluoroscopy of Multiple Coronary Arteries using Low Osmolar Contrast [facility] Start: 10-27-2023 Measurement of Cardi ac Sampling and Pressure, Left Heart, Percutaneous Approach Measurement of Cardiac Sampling and Pressure, Left Heart, Percutaneous Approach [facility] Start: 05-21-2023 Patient referral [facility] Work Phone: Start: 04-29-2023 COVID-19 Vaccine ( season) COVID-19 Vaccine ( season) [facility] Start: 12-23-2021 Influenza vaccination Influenza Vacc ine (#1) [facility] Start: 2005 Pneumococcal vaccination Pneum ococcal Vaccine(s) (65+ yrs) (1 - PCV) [facility] Start: 2005 Screening for osteoporosis Bone Densitometry [facility] Start: 1990 Shingles (RZV) Vacci ne (1 of 2) Shingles (RZV) Vaccine (1 of 2) [facility] Start: 1962 DTaP/Tdap/Td Vaccine s (1 - Tdap) DTaP/Tdap/Td Vaccines (1 - Tdap) [facility] Start: 1958 Tetanus + diphtheria + acellular pertussis vaccine (product) Tdap Booster [facility] Start: 04-24-1941 COVID-19 Vaccine (#1) COVID-19 Vacci ne (#1) [facility] Start: 1940 Basic metabolic 2000 panel - Serum or Plasma Basic Metabolic Panel [facility] Start: 1940 Lipid panel Lipid Panel [facility] Start: 1940 Medicare Annual Well ness Visit Medicare Annual Wellness Visit (AWV) [facility] Start: 1940 Screening for osteoporosis Bone Density Scan [facility] Comprehensive metabo lic 2000 panel - Serum or Plasma [facility] CT Chest WO contrast [facility] CT Chest WO contrast [facility] MG Breast - bilatera l Screening [facility] MR Shoulder - right WO contrast [facility] Patient Education Coronary Angio plasty (DC) Coronary Stenting (DC) Angina (DC) Chest Pain (DC) Drug Eluting Stents Know your Meds [facility] Work Phone: Patient referral [facility] Work Phone: XR Cervical spine Vi ews W flexion and W extension [facility] Immunizations Immunization Date Immunization Notes Care Provider Allie nash 12-05-2023 Moderna COVID-19 vaccine, 12 years and older (50mcg/0.5mL)(Spikevax ) Inderjit Saenz DO Work Phone: [facility] Work Phone: 12-04-2023 influenza, high dose seasonal, preservative-free FLAKITA Álvarez Work Phone: [facility] 12-04-2023 influenza virus vaccine, unspecified formulation Vanessa Dave GEOMORPHOLOGIST-MATERIAL PLANNING ANALYST Work Phone: [facility] Work Phone: 05-06-2023 zoster vaccine recombinant Inderjit Saenz DO Work Phone: [facility] Work Phone: 12-27-2022 Influenza, Seasonal, Quadrivalent, Adjuvanted Vanessa Dave GEOMORPHOLOGIST-MATERIAL PLANNING ANALYST Work Phone: [facility] Work Phone: 12-27-2022 Pfizer COVID-19 vaccine, 12 years and older, (30mcg/0.3mL) (Comirnaty) Inderjit Saenz DO Work Phone: [facility] Work Phone: 12-27-2022 RESPIRATORY SYNCYTIA L VIRUS (RSV), ELIGIBLE PTS, 0.5 ML (ABRYSVO) Inderjit Saenz DO Work Phone: [facility] Work Phone: 12-27-2022 influenza virus vaccine, unspecified formulation Inderjit Saenz DO Work Phone: [facility] Work Phone: 08-06-2022 Pneumococcal conjuga te vaccine, 20-valent (PREVNAR 20) Inderjit Saenz DO Work Phone: [facility] Work Phone: 08-06-2022 zoster vaccine recombinant Inderjit Saenz DO Work Phone: [facility] Work Phone: 12-27-2021 Moderna COVID-19 vaccine, bivalent, blue cap/grady label *Check age/dose* Inderjit Saenz DO Work Phone: [facility] 12-13-2021 influenza virus vaccine, split virus (incl. purified surface antigen) Branden Du Other [email or web address] Other 12-13-2021 influenza virus vaccine, unspecified formulation DO [employer] Work Phone: [facility] 12-13-2021 Influenza, Seasonal, Quadrivalent, Adjuvanted Vanessa Dave GEOMORPHOLOGIST-MATERIAL PLANNING ANALYST Work Phone: [facility] Work Phone: 12-14-2020 influenza virus vaccine, split virus (incl. purified surface antigen) Branden Du Other [employer] Other 12-14-2020 influenza virus vaccine, unspecified formulation DO [employer] Work Phone: [facility] 12-14-2020 Seasonal trivalent influenza vaccine, adjuvanted, preservative free Vanessa Dave GEOMORPHOLOGIST-MATERIAL PLANNING ANALYST Work Phone: [facility] Work Phone: 12-04-2019 influenza virus vaccine, split virus (incl. purified surface antigen) Branden Du Other [employer] Other 12-04-2019 influenza virus vaccine, unspecified formulation DO [employer] Work Phone: [facility] 12-16-2018 influenza virus vaccine, split virus (incl. purified surface antigen) Branden Du Other [facility] [employer] Other 12-16-2018 influenza virus vaccine, unspecified formulation DO [employer] Work Phone: [facility] 01-15-2018 influenza virus vaccine, split virus (incl. purified surface antigen) Branden Du Other [facility] [employer] Other 01-15-2018 influenza virus vaccine, unspecified formulation DO Branden Du Work Phone: [facility] 01-15-2018 influenza, injectabl e, quadrivalent, contains preservative Vanessaantwan Dave GEOMORPHOLOGIST-MATERIAL PLANNING ANALYST Work Phone: [facility] Work Phone: 01-12-2017 influenza virus vaccine, split virus (incl. purified surface antigen) Branden Du Other [facility] 01-12-2017 influenza virus vaccine, unspecified formulation DO Branden Du Work Phone: [facility] 12-27-2015 influenza virus vaccine, split virus (incl. purified surface antigen) Branden Du Other [facility] [employer] Other 12-27-2015 influenza virus vaccine, unspecified formulation DO Branden Du Work Phone: [facility] 12-27-2015 influenza, high dose seasonal, preservative-free Inderjit Saenz DO Work Phone: [facility] Work Phone: 01-28-2015 pneumococcal conjuga te vaccine, 13 valent Branden Du Other [facility] 12-16-2014 influenza, high dose seasonal, preservative-free Inderjit Saenz DO Work Phone: [facility] Work Phone: 05-26-2010 zoster vaccine, live Inderjit Saenz DO Work Phone: [facility] Work Phone: 03-08-2009 novel [id number], preservative-free, injectable Vanessa Dave GEOMORPHOLOGIST-MATERIAL PLANNING ANALYST Work Phone: [facility] Work Phone: Payers Date Payer Category Payer Medicare supplementa l policy (as second payer) [employer] [id number] 2023 Self-pay 2023 Unknown [id number] 2022 Unknown [id number] 2022 Unknown [id number] 2005 Medicare [id number] 1959 Medicare [id number] 1959 Unknown [id number] 1940 Unknown [id number]. [id number] 1940 Unknown [id number]. 2.593 1940 Unknown [id number] [id number]. 2.593 1940 Unknown [id number] [id number]. 2.732 1940 Unknown [id number] [id number]. 2.1259 1940 Unknown [id number] [id number]. 2.1244 1940 Unknown [id number] [id number]. 2.1244 1940 Unknown [id number]. 2.1244 1940 Unknown [id number]. 2.1244 Medicare Medicare [id number] Unknown [id number]. 2.531 Unknown [id number] [id number]. 2.531 Unknown [id number] [id number]. 2.531 Unknown [id number]. 2.531 Social History Date Type Detail Facility Tobacco smoking status AKIS Tobacco smoking consumption unknown [facility] Start: 1940 Sex Assigned At [facility] file [facility] Start: 12-20-2023 End: 09-29-2024 Sex Assigned At [facility] Other Start: 1940 Sex Assigned At Female [facility] Start: 06-20-2023 Tobacco smoking status AKIS Never smoked tobacco (finding) [facility] Start: 10-27-2023 End: 11-07-2023 Tobacco smoking status AKIS Ex-smoker (finding) [facility] Start: 11-05-2023 Tobacco smoking status AKIS Current some day smoker [facility] History of tobacco use Current smoker [facility] Work Phone: History of tobacco use Cigarette Smoker [facility] Work Phone: Start: 11-07-2023 Tobacco use and exposure Smokeless tobacco non-user [facility] Work Phone: Start: 11-07-2023 End: 09-29-2024 Alcoholic beverage intake Current drinker of alcohol (finding) [facility] Work Phone: Start: 10-28-2023 End: 08-05-2024 Exposure to SARS-CoV-2 (event) Not sure [facility] Start: 12-20-2023 End: 09-29-2024 Alcoholic beverage intake [facility] Work Phone: Start: 05-12-2024 End: 08-19-2024 Sex Female (finding) [facility] Medical Equipment Procedure Code Equipment Code Equipment Origin al Text Equipment Identifier Dates CL STENT PEDRO FRONTIER 4.0 X 18 FDA Start: 10-27-2023 Femoral artery closure plug/patch, synthetic polymer ([id number] FDA Start: 10-27-2023 CL STENT PEDRO FRONTIER [...] Facility 10-29-2023 Functional status Patient at Baseline [facility] Work Phone: Mental Status Date Assessment Result Facility 10-29-2023 Cognitive function Cognitive Sta tus Patient at Baseline [facility] Work Phone: Clinical Notes 05-04-2022 to 09-30-2024 Assessment & Plan Note - ROLAND Becerril - 09/30/2024 8:26 AM EDTAssessment & Plan Note - ROLAND Becerril - 09/30/2024 8:26 AM EDTPatient InstructionsPatient Instructions Note Date & Type Note Facility 09-30-2024 Evaluation + Plan note Associated Problem(s): Fatigue July 2024 : presents [...] we will transition Lopressor over to carvedilol. [facility] Work Phone: 09-30-2024 Miscellaneous Notes Associated Problem(s): Fatigue July 2024 : presents [...] we will transition Lopressor over to carvedilol. Associated Problem(s): BMI 26.0-26.9,adult Reviewed the merits of healthy lifestyle choices on overall cardiovascular health. Associated Problem(s): Essential hypertension Her dose of Lopressor was down titrated due to fatigability. Blood pressure is borderline in the office. She was noted to have improvement in fatigue with down titration of Lopressor, will discontinue and transitioned over to carvedilol. documented in this encounter [facility] Work Phone: 09-30-2024 Evaluation + Plan note Associated Problem(s): BMI 26.0-26.9,adult Reviewed the merits of healthy lifestyle choices on overall cardiovascular health. [facility] Work Phone: 09-30-2024 Evaluation + Plan note Associated Problem(s): Essential hypertension Her dose of Lopressor was down titrated due to fatigability. Blood pressure is borderline in the office. She was noted to have improvement in fatigue with down titration of Lopressor, will discontinue and transitioned over to carvedilol. [facility] Work Phone: 09-29-2024 History of Presen t illness Narrative Chief Complaint I have more energy off [...] Lopressor dosage. She reports more energy. She denies shortness of breath. She remains aerobically active. She does feel that her blood pressure has been slightly elevated on lower dose of Lopressor. After [...] kg (141 lb 6.4 oz) BMI 26.72 kg/m Smoking Status Former BSA 1.66 m Physical Exam Vitals and nursing note reviewed. [...] will discontinue and transitioned over to carvedilol. BMI 26.0-26.9,adult Reviewed the [...] making process incorporating patients unique circumstances, the following treatment plan will be initiated: 1. Prescription drug management of cardiovascular medication for efficacy, adherence to treatment, side effect assessment and polypharmacy. Current treatment clinically warranted and to continue with following modifications: - stop lopressor - Begin coreg 6,25mg twice daily 2. Return for follow-up; in the interim, contact the office if new symptoms arise. BILLET DRILLER one month Vanessa Dave MSN, GEOMORPHOLOGIST-MATERIAL PLANNING ANALYST, PMHNP-[facility] [place], [place] Please excuse any errors in grammar or translation related to this dictation. Voice recognition software was utilized to prepare this document. documented in this encounter [facility] Work Phone: 09-29-2024 Instructions ROLAND Becerril - 09/29/2024 2:30 PM EDT [...] making process incorporating patients unique circumstances, the following treatment plan will be initiated: 1. Prescription drug management of cardiovascular medication for efficacy, adherence to treatment, side effect assessment and polypharmacy. Current treatment clinically warranted and to continue with following modifications: - stop lopressor - Begin coreg 6,25mg twice daily 2. Return for follow-up; in the interim, contact the office if new symptoms arise. BILLET DRILLER one month documented in this encounter [facility] Work Phone: 08-06-2024 Evaluation + Plan note Associated Problem(s): Shortness of breath She originally called into the office reporting shortness of breath. She reported shortness of breath with going up 1 flight of stairs this is probably ongoing for about 2 weeks but over the last 10 days the symptoms for the most part have abated. She was able to come in from the parking lot without concerns. [facility] Work Phone: 08-06-2024 Evaluation + Plan note Associated Problem(s): Fatigue Presents to the office today with complaints of ongoing fatigability and having no energy . Symptoms started close to 4 weeks ago. Her prior angina symptom was a strange chest sensation and she denies any reoccurrence. [facility] Work Phone: 08-06-2024 Miscellaneous Notes Associated Problem(s): Shortness of breath She originally called into the office reporting shortness of breath. She reported shortness of breath with going up 1 flight of stairs this is probably ongoing for about 2 weeks but over the last 10 days the symptoms for the most part have abated. She was able to come in from the parking lot without concerns. Associated Problem(s): Fatigue Presents to the office today with complaints of ongoing fatigability and having no energy . Symptoms started close to 4 weeks ago. Her prior angina symptom was a strange chest sensation and she denies any reoccurrence. Associated Problem(s): BMI 27.0-27.9,adult Reviewed the merits of healthy lifestyle choices on overall cardiovascular health. Associated Problem(s): Essential hypertension Optimal in office Associated Problem(s): Hyperlipidemia High intensity statin Associated Problem(s): CAD (coronary artery disease) Oct 26, 2024 Inferior STEMI pRCA PCI/[place] 4 x 18 mm mLAD mild intramyocardial bridging O/p Diag 75% small/moderate vessel OM none EF 60% documented in this encounter [facility] Work Phone: 08-06-2024 Evaluation + Plan note Associated Problem(s): BMI 27.0-27.9,adult Reviewed the merits of healthy lifestyle choices on overall cardiovascular health. [facility] Work Phone: 08-06-2024 Evaluation + Plan note Associated Problem(s): Essential hypertension Optimal in office [facility] Work Phone: 08-06-2024 Evaluation + Plan note Associated Problem(s): Hyperlipidemia High intensity statin [facility] Work Phone: 08-06-2024 Evaluation + Plan note Associated Problem(s): CAD (coronary artery disease) Oct 26, 2024 Inferior STEMI pRCA PCI/[place] 4 x 18 mm mLAD mild intramyocardial bridging O/p Diag 75% small/moderate vessel OM none EF 60% [facility] Work Phone: 08-05-2024 History of Presen t illness Narrative Chief Complaint I just not been feeling like myself Reason for Visit Add-on Patient presents to the office today for outpatient follow-up for shortness of breath and fatigability. Last evaluated in clinic by Dr. Saenz May 2024. At that time, patient was doing exceedingly well. Presents today ambulatory with steady gait. Accompanied by patient Patient denies any hospitalizations or significant changes to interval medical history since last office follow-up. History of Present Illness Patient had called into the office reporting shortness of breath and fatigability. She reports approximately mid June she started noticing shortness of breath, was having difficulty going up 1 flight of stairs. No orthopnea or PND. She reports that those symptoms have abated over the last 10 days. She goes on to report ongoing lack of energy, fatigability and just not feeling like myself . She usually likes to work out in her garden but simply has no energy to go out there. She reports her angina symptom on the day of VT was just a strange sensation, denies any reoccurrence. She denies palpitations. There is no melena hematochezia. Blood pressure is optimal in the office. She denies any type of viral illness. Fortunately her shortness of breath has resolved. She came in from the parking lot without no concerns. Ongoing fatigability continues to be a problem. Will check labs to rule out azotemia, anemia and will check her TSH. Otherwise I will down titrate her Lopressor to see if there is any improvement. She also has residual small/moderate size diagonal with ostial/proximal 75% stenosis. If no benefit with reduction in Lopressor low threshold to proceed with perfusion study. No history of atrial fibrillation, regular auscultatory rate and rhythm in the office. Review of Systems Constitutional: Positive for malaise/fatigue. Cardiovascular: Negative for chest pain, dyspnea on exertion, irregular heartbeat, leg swelling, near-syncope, orthopnea, palpitations, paroxysmal nocturnal dyspnea and syncope. Visit Vitals BP 122/70 (BP Location: Left arm, Patient Position: Sitting) Pulse 72 Ht 1.549 m (5' 1 ) Wt 65.8 kg (145 lb) BMI 27.40 kg/m Smoking Status Former BSA 1.68 m Physical Exam Vitals and nursing note reviewed. [...] mg, Daily atorvastatin (LIPITOR) 80 mg, Daily clopidogrel (PLAVIX) 75 mg, oral, Daily, On the first day of starting the medication take 4 tablets by mouth. Then take 1 tablet by mouth each day after. dicyclomine (Bentyl) 20 mg tablet 1 tablet, Every 12 hours scheduled (0630,1830) losartan (COZAAR) 50 mg, oral, 2 times daily metoprolol tartrate (LOPRESSOR) 12.5 mg, oral, 2 times daily multivit with minerals/lutein (MULTIVITAMIN 50 PLUS ORAL) 1 tablet, Daily nitroglycerin (NITROSTAT) 0.4 mg, Every 5 min PRN omeprazole (PRILOSEC) 40 mg, Daily before breakfast Assessment: CAD (coronary artery disease) Oct 26, 2024 Inferior STEMI pRCA PCI/Pedro 4 x 18 mm mLAD mild intramyocardial bridging O/p Diag 75% small/moderate vessel OM none EF 60% Hyperlipidemia High intensity statin Essential hypertension Optimal in office BMI 27.0-27.9,adult Reviewed the merits of healthy lifestyle choices on overall cardiovascular health. Fatigue Presents to the office today with complaints of ongoing fatigability and having no energy . Symptoms started close to 4 weeks ago. Her prior angina symptom was a strange chest sensation and she denies any reoccurrence. Shortness of breath She originally called into the office reporting shortness of breath. She reported shortness of breath with going up 1 flight of stairs this is probably ongoing for about 2 weeks but over the last 10 days the symptoms for the most part have abated. She was able to come in from the parking lot without concerns. Plan: Through informed decision making process incorporating patients unique circumstances, the following treatment plan will be initiated: 1. Prescription drug management of cardiovascular medication for efficacy, adherence to treatment, side effect assessment and polypharmacy. Current treatment clinically warranted and to continue with following modifications: - Reduce lopressor 12.5mg twice daily 2. Labs (chem6, CBC, TSH) 3. Return for follow-up; in the interim, contact the office if new symptoms arise. BILLET DRILLER one month Vanessa Dave MSN, GEOMORPHOLOGIST-MATERIAL PLANNING ANALYST, PMHNP-[facility] [place], [place] Please excuse any errors in grammar or translation related to this dictation. Voice recognition software was utilized to prepare this document. documented in this encounter [facility] Work Phone: 08-05-2024 Instructions ROLAND Becerril - 08/05/2024 2:00 PM EDT Please bring all medicines, vitamins, [...] making process incorporating patients unique circumstances, the following treatment plan will be initiated: 1. Prescription drug management of cardiovascular medication for efficacy, adherence to treatment, side effect assessment and polypharmacy. Current treatment clinically warranted and to continue with following modifications: - Reduce lopressor 12.5mg twice daily 2. Labs (chem6, CBC, TSH) 3. Return for follow-up; in the interim, contact the office if new symptoms arise. BILLET DRILLER one month documented in this encounter [facility] Work Phone: 07-20-2024 Evaluation note Diagnosis Onset Date Resolution Diarrhea acute July 20 10:57am Gastroesophageal reflux disease with esophagitis without hemorrhage acute July 20, 025 10:57am History of colon cancer acute A pril 2024 10:57am IBS (irritable bowel syndrome) acute July 20, 2024 10:57am Intermittent abdominal pain acute July 20, 2024 10:57am [facility] Work Phone: 1([phone]) 732-692304-28-2025 Evaluation note* Diagnosis Onset Date Resolution Status Admit Date [...] Seborrheic dermatitis acute August 19, 2024 1:30pm [facility] Work Phone: 1([phone]) 196-408203-05-2025 History of Present illness Narrative* Inderjit Saenz, - 05/27/2024 10:50 AM EST Subjective Genny Brewer is a 83 y.o. female Chief Complaint Follow-up; Coronary Artery Disease 83-year-old female returns for follow-up she is doing very well, she has traveled to [place] in [place] and is getting in 12,000 steps daily. She denies any cardiovascular events or angina or nitrate usage or shortness of breath. She is doing much better on clopidogrel having discontinue the ticagrelor. She sustained inferior STEMI in October 2023 with revascularization of the RCA and normal left ventricular function; her current functional class is 1 stage stage C Recommendations: Continue current therapies follow-up with nurse practitioner in 8 months. At that time we likely can discontinue her DAPT Coronary Artery Disease Review of Systems All other systems reviewed and are negative. Vitals: 05/27/24 1123 BP: 110/72 BP Location: Right arm Patient Position: Sitting Pulse: 60 Weight: 64.9 kg (143 lb) Height: 1.549 [...] by mouth once daily., Disp: , Rfl: clopidogrel (Plavix) 75 mg tablet, Take 1 tablet (75 mg) by mouth once daily. On the first day of starting the medication take 4 tablets by mouth. Then take 1 tablet by mouth each day after., Disp: 90 tablet, Rfl: 3 dicyclomine (Bentyl) 10 mg capsule, 1 capsule [...] morning. Take before meals., Disp: , Rfl: Assessment/Plan 1. Coronary artery disease, unspecified vessel or lesion type, unspecified whether angina present, unspecified whether tonto apache or transplanted heart Follow Up In Cardiology 2. History of ST elevation myocardial infarction (STEMI) 3. History of PTCA 4. Hyperlipidemia, unspecified hyperlipidemia type 5. Essential hypertension 6. BMI 27.0-27.9,adult 7. Former smoker Scribe Attestation By signing my name below, I, Jacque Foreman RN , Scribe attest that this documentation has been prepared under the direction and in the presence of Blanche Saenz DO. Provider Attestation - Scribe documentation All medical record entries made by the Scribe were at my direction and personally dictated by me. Ihave reviewed the chart and agree that the record accurately reflects my personal performance of the history, physical exam, discussion and plan. documented in this [facility] Work Phone: 1(211) 658-734803-05-2025 Instructions* Patient Instructions* Jacque Quesaad RN - 05/27/2024 10:50 AM EST Please bring all medicines, vitamins, and herbal [...] since last visit (-) denotes wt loss 0 lbs Weight loss needed to achieve BMI 25: 11 Lbs Weight loss needed to achieve BMI 30: -15.4 Lbs Provided instructions on dietary changes Provided instructions on exercise. documented in this [facility] Work Phone: 1(653) 560-934302-18-2025 Evaluation note* Diagnosis Onset Date Resolution Status Admit Date Lung nodule acute April 1:24pm Rotator cuff arthropathy of right shoulder acute May 12 025 1:24pm Right shoulder pain noneactive Febru jaron 2024 1:24pm Diarrhea acute July 20 10:57am Gastroesophageal reflux disease with esophagitis without hemorrhage acute July 20 2 025 10:57am History of colon cancer acute A pril 2024 10:57am IBS (irritable bowel syndrome) acute July 20, 2024 10:57am Intermittent abdominal pain acute July 20, 2024 10:57am [facility] Work Phone: 1([phone]) 950-331912-16-2024 Evaluation note* Diagnosis Onset Date Resolution Status Admit Date ASHD (arteriosclerotic heart disease) acute March 09, 2 024 3:47pm Hypercholesterolemia acute Dece mb2023 3:47pm IBS (irritable bowel syndrome) acute March 09, 2024 3:47pm Lung nodule acute February 3:47pm Medicare annual wellness vis it, subsequent acute March 09, 2 024 3:47pm Nicotine addiction acute Decemb er 2023 3:47pm Primary hypertension acute Dece mber 2023 3:47pm Screening mammogram for laura st cancer acute March 09, 2 024 3:47pm Diarrhea acute March 11, 2024 1:00pm Fecal urgency acute March 112023 1:00pm Gastroesophageal reflux dise ase with esophagitis without hemorrhage acute March 11, 2 024 1:00pm History of colon cancer acute D ecember 2023 1:00pm History of colon resection acute March 11, 2024 1:00pm IBS (irritable bowel syndrome) acute March 11, 2024 1:00pm Intermittent abdominal pain acute March 11, 2024 1:00pm Abnormal CT scan of lung acute March 12, 2024 10:33am Lung nodule acute April 1:24pm Rotator cuff arthropathy of right shoulder acute May 12 2 025 1:24pm Right shoulder pain noneactive Febru jaron 2024 1:24pm [facility] Work Phone: 1([phone]) 363-442209-27-2024 History of Present illness Narrative* Inderjit Saenz, DO - 12/20/2023 10:35 AM EDT Subjective Genny Brewer is a 83 y.o. female Chief Complaint Follow-up 83-year-old female seen at a early time point at her request to rediscuss symptoms and medications.She has had variable blood pressures but now very well- controlled on current therapies including amlodipine 5 mg, [...] type, unspecified whether angina present, unspecified whether tonto apache or transplanted heart 8. Former smoker 9. BMI 27.0-27.9,adult Scribe Attestation By signing my name below, IJacque RN , Scribe attest that this documentation has been prepared under the direction and in the presence of Blanche Saenz DO. Provider Attestation - Scribe documentation All medical record entries made by the Scribe were at my direction and personally dictated by me. Ihave reviewed the chart and agree that the record accurately reflects my personal performance of the history, physical exam, discussion and plan. [facility] Work Phone: 1(183) 393-398809-27-2024 Instructions* Patient Instructions* Jacque Quesada RN - 12/20/2023 10:35 AM [...] pill each day after. [facility] Work Phone: 1(711) 721-175908-15-2024 History of Present illness Narrative* Inderjit Saenz DO - 11/07/2023 9:40 AM EDT Viral Royal Brewer is a 83 y.o. female Chief Complaint TCM 83-year-old female here for TCM follow-up office visit following recent inferior STEMI, treated with primary PCI proximal RCA with 4 mm drug-eluting stent with preserved LV function. She has residualsmall vessel diagonal branch disease but otherwise normal coronaries. She is doing well. She has nocturnal dyspnea but she has no exertional shortness of breath. She had 1 ER visit for dyspnea, I was consulted over the phone in regards to this and discussed continuation of her ticagrelor is much asfeasibly possible. We discussed this again today. She [...] type, unspecified whether angina present, unspecified whether tonto apache or transplanted heart 2. History of PTCA 3. History of ST elevation myocardial infarction (STEMI) 4. Shortness of breath 5. Former smoker 6. BMI 26.0-26.9,adult 7. Hyperlipidemia, unspecified hyperlipidemia type Scribe Attestation By signing my name below, I, Stiven Fajardo LPN attest that this documentation has been prepared under the direction and in the presence of Blanche Saenz DO. Provider Attestation - Scribe documentation All medical record entries made by the Scribe were at my direction and personally dictated by me. Ihave reviewed the chart and agree that the record accurately reflects my personal performance of the history, physical exam, discussion and plan. documented in this [facility] Work Phone: 1(179) 342-899708-15-2024 Instructions* Patient Instructions* Kacy Norris LPN - 11/07/2023 9:40 AM [...] instructions on dietary changes. documented in this [facility] Work Phone: 1(638) 852-698108-05-2024 Consult note Author Sobia Okeefe [facility] October 28, 2023 8:55pm Note Date/Time October 28, 2023 8:5 5pm [facility] [address] [place] [address] Pulmonology Consult Note Signed Patient: Genny Brewer MR#: [id number] : 1940 Acct:[id number] Age/Sex: 83 / F Adm Date: 4 Loc: Room: [address] [place] [address] Type: ADM IN Attending Dr: Reji Saenz DO Copies to: Branden Du,DO Reji Saenz, DO Sobia Okeefe MD~ HPI Date/Time of Consultation: Date of Service: 10/28/2023 Time of Service: 20:50 Consulting Provider: Sobia Okeefe Requesting Provider: Reji Saenz Reason for Consult: ICU support History of Present Illness History of present illness: Ms. 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 Currently on RA, on ASA, Brilinta, BB, statin, ROBIN. Review of Systems Constitutional Constitutional: Reports as per HPI Cardiovascular Cardiovascular: Reports as per HPI and Reports chest pain at rest [facility] Medical History Lung nodule CT: 1.7cm nodule [...] <Electronically signed by Sobia Okeefe MD> 10/28/232054 [facility] Work Phone: 1(637) 822-816808-05-2024 Progress note Author Reji Saenz [facility] October 28, 2023 11:54am Note Date/Time October 28, 2023 11: 54am [facility] [address] [place] [address] Cardiology Progress Note Signed Patient: Genny Brewer MR#: [id number] : 1940 Acct:[id number] Age/Sex: 83 / F Adm Date: 4 Loc: Room: [address] [place] [address] Type: ADM IN Attending Dr: Reji Saenz [...] administered under my direction, patient arrived in Emt at 1756 and underwent primary PCI at [...] critical care time were devoted to ER staff,Emt staff, nursing staff, patient and family both [...] L 95 Room Air 10/28/23 09:00 10/28/23 10:10/28/23 10:10/28/23 10:00 10/28/23 10:00 10/28/23 10:00 Const General: cooperative, healthy appearing, comfortable [...] % (Auto) 63.6 Lymph % (Auto) 25.7 [place] % (Auto) 8.7 Eos % (Auto) 0.7 Baso % (Auto) 1.3 Nucleat RBC Rel Count 0.1 Neut # (Auto) 5.5 Lymph # (Auto) 2.2 [place] # (Auto) 0.7 Eos # (Auto) 0.1 [...] Troponin I High Sens 10.2 6295.7 H* 16313.3 H* B-Natriuretic Peptide 124.0 H Total Protein [...] % (Auto) 68.0 Lymph % (Auto) 20.4 [place] % (Auto) 10.2 Eos % (Auto) 0.5 Baso % (Auto) 0.9 Nucleat RBC Rel Count 0.1 Neut # (Auto) 5.7 Lymph # (Auto) 1.7 [place] # (Auto) 0.9 H Eos # (Auto) [...] Total Creatine Kinase Troponin I High Sens 86165.9 H* 98911.0 H* 98840.4 H* B-Natriuretic Peptide Total Protein Albumin Globulin [...] signed by Reji Saenz DO> 10/28/23 1154 [facility] Work Phone: 1(954) 745-473908-04-2024 History and physical note Author Reji Saenz [facility] October 27, 2023 6:21pm Note Date/Time October 27, 2023 5:5 1pm [facility] [address] [place] [address] Cardiology H&P Signed Patient: Genny Brewer MR#: [id number] : 1940 Acct:[id number] Age/Sex: 83 / F Adm Date: 4 Loc: Room: Type: [facility] Attending Dr: Reji Saenz DO Copies to: [...] administered under my direction, patient arrived in Emt at 1756 and underwent primary PCI at [...] critical care time were devoted to ER staff,Emt staff, nursing staff, patient and family both pre and post procedurally. Review of Systems Review of Systems All other systems reviewed & are negative unless noted below or in HPI Constitutional Constitutional: Reports as per HPI Cardiovascular Cardiovascular: Reports as per HPI and Reports chest pain at rest [facility] Medical History Lung nodule CT: 1.7cm nodule [...] x10E3/uL Lymph # (Auto) 2.2 (1.00-4.8) x10E3/uL [place] # (Auto) 0.7 (0.0-0.8) x10E3/uL Eos # [...] results cardiology: sinus rhythm EKG shows: bradycardia VT, pacemaker, normal Myocardial infarction: inferior VT (acute or recent) A&P - Cardiology (1) ST elevation myocardial infarction (STEMI) of inferior wall: Code(s): I21.19 - ST elevation (STEMI) myocardial infarction involving other coronary artery of inferior wall Plan Proceed with emergency cath and PCI Documented By: Reji Saenz DO 10/27/23 1750 Signed By: <Electronically signed by Reji Saenz DO> 10/27/23 1821 [facility] Work Phone: 1(732) 494-849308-04-2024 [facility] Procedure note [facility]01-30-2024 Evaluation note* Encounter Date Diagnosis Assessment Notes Treatment Notes Treatment Clinical Notes Mar, Primary hypertension (ICD-10 - I10) [email or web address] Other 01-29-2024 Evaluation note* Encounter Date Diagnosis Assessment Notes Treatment Notes Treatment Clinical Notes Mar, Lung nodule (ICD-10 - R91.1) [email or web address] Other 01-24-2024 Evaluation note* Encounter Date Diagnosis Assessment Notes Treatment Notes Treatment Clinical Notes Mar, Lung mass (ICD-10 - R91.8) [email or web address] Other 01-19-2024 Evaluation note* Encounter Date Diagnosis Assessment Notes Treatment Notes Treatment Clinical Notes Mar, Fall, initial encounter (ICD-10 - W19.XXXA) She denies CP, DASILVA, palpitations or lightheadedness Tripped over her shoe laces Fall precautions Mar, Right arm pain (ICD-10 - M79.601) Not sure how she landed. Ice, heat Mar, Contusion of right upper extremity, initial encounter (ICD-10 - S40.021A) [email or web address] Other 01-15-2024 Evaluation note* Encounter Date Diagnosis Assessment Notes Treatment Notes Treatment Clinical Notes Mar, Left lower quadrant abdominal pain (ICD-10 - R10.32) Mar, Diarrhea, unspecified type (ICD-10 - R19.7) [email or web address] Other 01-08-2024 Evaluation note* Encounter Date Diagnosis Assessment Notes Treatment Notes Treatment Clinical Notes Mar, Irritable bowel syndrome without diarrhea (ICD-10 - K58.9) [email or web address] Other 01-02-2024 Evaluation note* Encounter Date Diagnosis [...] would refer for colonoscopy to exclude colitis [email or web address] Other 12-21-2023 Evaluation note* Encounter Date Diagnosis Assessment Notes Treatment Notes Treatment Clinical Notes Feb, Gastroesophageal ref lux disease with esophagitis without hemorrhage (ICD-10 - K21.00) [email or web address] Other 11-28-2023 Evaluation note* Encounter Date Diagnosis Assessment Notes Treatment Notes Treatment Clinical Notes Jan, Dysuria (ICD-10 - R30.0) [email or web address] Other 11-17-2023 Evaluation note* Encounter Date Diagnosis [...] patient on monthly SBE and yearly mammograms. [email or web address] Other 06-29-2023 Evaluation note* Encounter Date Diagnosis Assessment Notes Treatment Notes Treatment Clinical Notes Aug, Primary hypertension (ICD-10 - I10) [email or web address] Other 06-05-2023 Evaluation note* Encounter Date Diagnosis [...] best 2/3 readings w/ goal < 135-85 [email or web address] Other 06-02-2023 Evaluation note* Encounter Date Diagnosis Assessment Notes Treatment Notes Treatment Clinical Notes Aug, Dysuria (ICD-10 - R30.0) [email or web address] Other 04-17-2023 Evaluation note* Encounter Date Diagnosis Assessment Notes Treatment Notes Treatment Clinical Notes Jun, Primary hypertension (ICD-10 - I10) This patient is instructed to consume a healthy, low-fat, low-salt diet. They are also encouraged to continue exercise to achieve/maintain a normal BMI. Jun, Nicotine dependence, cigarettes, in remission (ICD-10 - F17.211) Continue abstinence [email or web address] Other 03-21-2023 Evaluation note* Encounter Date Diagnosis Assessment Notes Treatment Notes Treatment Clinical Notes May, Primary hypertension (ICD-10 - I10) [email or web address] Other 03-20-2023 Evaluation note* Encounter Date Diagnosis Assessment Notes Treatment Notes Treatment Clinical Notes May, Primary hypertension (ICD-10 - I10) [email or web address] Other 02-28-2023 Evaluation note* Encounter Date Diagnosis Assessment Notes Treatment Notes Treatment Clinical Notes Apr, Primary hypertension (ICD-10 - I10) [email or web address] Other 02-27-2023 Evaluation note* Encounter Date Diagnosis [...] - F17.211) Continue abstinence Apr, Other REo [email or web address] Other 02-27-2023 History of Present illness Narrative* Sudheer Haro MD - 05/21/2022 10:00 AM EST Images from the original note were not included. EMERGENCY TRIAGE, TREAT AND TRANSPORT (ET3) DOCUMENTATION OF TELEHEALTH VISIT Date / Time: 05/21/202245 Name: Genny Brewer : 1940 SSN: (Not on file) EMS Agency: [facility] [x] Verbal consent obtained [] Implied [...] available at a park primary care physician's office.Patient declined using ambulance go to the ER, and her daughter who was present on scene will driveher the 4 minutes will take to get to the [place] [facility]. I advised her to call 911 [...] by: Sudheer Haro MD documented in this [id number] Evaluation note* Encounter Date Diagnosis Assessment Notes Treatment Notes Treatment Clinical Notes Apr, Nausea (ICD-10 - R11.0) [email or web address] Other Discharge summary Author W [facility] October 29, 2023 3:50pm Note Date/Time October 29, 2023 3:4 8pm [facility] [address] [place] [address] Discharge Summary Signed Patient: Genny Brewer MR#: [id number] : 1940 Acct:[id number] Age/Sex: 83 / F Adm Date: 4 Loc: Room: [address] [place] [address]: Reji Saenz DO Copies to: [...] proximal RCA with 4 x 18 mm [place] stent 5. Preserved LV function 6. Essential hypertension Summary Hospital Course Hospital course: 83-year-old female presented with acute inferior ST elevation VT on Friday, October 27, 2023 and underwent rapid revascularization of the proximal RCA with large 4 mm drug-eluting stent within 60 minutes. LV function is preserved. Shedoes have small vessel diagonal branch disease that is going to be treated conservatively. She had no postoperative for post VT complications, arrhythmia,heart failure or recurrent angina. She will be discharged this afternoon, currently on aspirin 81 daily, [id number] twice daily, metoprolol 25 twice daily, losartan [...] Closure Device Placement 0 - W Celestino Saenz DO p CL [facility] Angio [...] doctor or pharmacist, without first calling the supervisor grower who implanted the stent. If you require [...] weight lifting, stair steppers, etc. until the supervisor grower approves these activities. Check with the supervisor grower on your first follow-up visit. CALL YOUR EQUIPMENT ENGINEERING TECHNICIAN: -If bleeding should occur from the catheter insertion site- apply pressure to the site then immediately call us. -Report any fever, redness, drainage, increased swelling, or firmness at the catheter insertion site. Some bruising or slight swelling may be present at thetime of discharge. -Should arm or leg become cold, numb, white, or blue, contact the supervisor grower immediately. -IF you should experience episodes of [...] Cardiopulmonary Rehabilitation program is recommended. The attending supervisor grower or a nurse clinician should provide you with specificinstructions regarding activity, diet, medications, and further follow up for you. Follow the medication instructions provided on your discharge. If the dosages and instructions on this sheet differ from the dosage and instructions on the bottle, follow the instructions on the bottle. [facility] is not responsible for incorrect prescription information [...] % (Auto) 73.5, Lymph % (Auto) 15.8, [place] % (Auto) 9.4, Eos % (Auto) 0.6, Baso % (Auto) 0.7, Nucleat RBC Rel Count 0.1, Neut # (Auto) 5.9, Lymph # (Auto) 1.3, [place] # (Auto) 0.8, Eos # (Auto) 0.0, Baso # (Auto) 0.1, PHA Creatinine Clear 41.47, Sodium 138, Potassium 4.0, Chloride 109 H, Carbon Dioxide 24.3, Anion Gap 8.7, BUN 17, Creatinine 0.91, Est GFR (CKD-EPI) > 60.0, Glucose 105 H, Calcium 9.3 Documented By: Reji Saenz DO 10/29/23 1543 Signed By: <Electronically signed by Reji Saenz DO> 10/29/23 1550 [facility] Work Phone: Evaluation note* Diagnosis Hypertensive urgency- Primary [facility] [employer] Other Evaluation noteNo assessment information available [facility] Work Phone: Evaluation note* Diagnosis Onset Date Resolution Status Change in bowel habits acute Primary hypertension acute Rotator cuff arthropathy of right shoulder acute Hx of malignant neoplasm of colon noneactive Pain in right shoulder nonea ctive [facility] Work Phone: Evaluation note* Diagnosis Onset Date Resolution Status Change in bowel habits acute Primary hypertension acute Rotator cuff arthropathy of right shoulder acute Hx of malignant neoplasm of colon noneactive Pain in right shoulder nonea ctive Primary hypertension acute Rotator cuff arthropathy of right shoulder acute Pain in right shoulder nonea ctive Change in bowel habits acute [facility] Work Phone: Evaluation note* Diagnosis Onset Date Resolution Status ST elevation myocardial infa rction (STEMI) of inferior wall acute [facility] Work Phone: Evaluation note* Diagnosis Onset Date Resolution Status ASHD (arteriosclerotic heart disease) acute Hypercholesterolemia acute Lung nodule acute Medication side effects acut e Nicotine addiction acute Primary hypertension acute Shortness of breath acute [facility] Work Phone: Evaluation note* Diagnosis Onset Date Resolution Status ASHD (arteriosclerotic heart disease) acute Hypercholesterolemia acute IBS (irritable bowel syndrome) acute Lung nodule acute Nicotine addiction acute Primary hypertension acute ASHD (arteriosclerotic heart disease) acute Hypercholesterolemia acute IBS (irritable bowel syndrome) acute Primary hypertension acute [facility] Work Phone: Evaluation note* Diagnosis [...] bowel syndrome) acute Intermittent abdominal pain acute [facility] Work Phone: Evaluation note* Diagnosis Coronary artery disease, unspecified vessel or lesion type, unspecified whether angina present, unspecified whether tonto apache or transplanted heart History of PTCA Postsurgical percutaneous transluminal coronary angioplasty status History of ST elevation myocardial infarction (STEMI) Shortness of breath Former smoker Personal history of tobacco use, presenting hazards to health BMI 26.0-26.9,adult Hyperlipidemia, unspecified hyperlipidemia type documented in this encounter [facility] Work Phone: Evaluation note* Diagnosis Near syncope Fatigue, unspecified type History of PTCA Postsurgical percutaneous transluminal coronary angioplasty status Essential hypertension Unspecified essential hypertension History of ST elevation myocardial infarction (STEMI) Shortness of breath Coronary artery disease, unspecified vessel or lesion type, unspecified whether angina present, unspecified whether tonto apache or transplanted heart Former smoker Personal history of tobacco use, presenting hazards to health BMI 27.0-27.9,adult documented in this encounter [facility] Work Phone: Evaluation note* Diagnosis Coronary artery disease, unspecified vessel or lesion type, unspecified whether angina present, unspecified whether tonto apache or transplanted heart History of ST elevation myocardial infarction (STEMI) History of PTCA Postsurgical percutaneous transluminal coronary angioplasty status Hyperlipidemia, unspecified hyperlipidemia type Essential hypertension Unspecified essential hypertension BMI 27.0-27.9,adult Former smoker Personal history of tobacco use, presenting hazards to health documented in this encounter [facility] Work Phone: Evaluation note* Diagnosis Hyperlipidemia, unspecified hyperlipidemia type- Primary Coronary artery disease, unspecified vessel or lesion type, unspecified whether angina present, unspecified whether tonto apache or transplanted heart History of ST elevation myocardial infarction (STEMI) Essential hypertension Unspecified essential hypertension BMI 27.0-27.9,adult Fatigue, unspecified type Shortness of breath documented in this encounter [facility] Work Phone: Evaluation note* Diagnosis Hyperlipidemia, unspecified hyperlipidemia type- Primary Coronary artery disease, unspecified vessel or lesion type, unspecified whether angina present, unspecified whether tonto apache or transplanted heart History of ST elevation myocardial infarction (STEMI) Essential hypertension Unspecified essential hypertension BMI 27.0-27.9,adult Fatigue, unspecified type Shortness of breath Essential hypertension- Primary Unspecified essential hypertension Fatigue, unspecified type BMI 26.0-26.9,adult documented in this encounter [facility] Work Phone: History and physical note Author Reji Saenz [facility] October 27, 2023 6:21pm Note Date/Time October 27, 2023 5:5 1pm [facility] [address] [place] [address] Cardiology H&P Signed Patient: Genny Brewer MR#: [id number] : 1940 Acct:[id number] Age/Sex: 83 / F Adm Date: 4 Loc: Room: Type: [facility] Attending Dr: Reji Saenz DO Copies to: [...] administered under my direction, patient arrived in [facility] at 1756 and underwent primary PCI at [...] critical care time were devoted to ER staff,Emt staff, nursing staff, patient and family both pre and post procedurally. Review of Systems Review of Systems All other systems reviewed & are negative unless noted below or in HPI Constitutional Constitutional: Reports as per HPI Cardiovascular Cardiovascular: Reports as per HPI and Reports chest pain at rest [facility] Medical History Lung nodule CT: 1.7cm nodule [...] See Rx Instructions .Route .COMPLEX #30 ea 07/15/24 [Rx] Exam Physical Exam Vital Signs: Temp [...] x10E3/uL Lymph # (Auto) 2.2 (1.00-4.8) x10E3/uL [place] # (Auto) 0.7 (0.0-0.8) x10E3/uL Eos # [...] results cardiology: sinus rhythm EKG shows: bradycardia VT, pacemaker, normal Myocardial infarction: inferior VT (acute or recent) A&P - Cardiology (1) ST elevation myocardial infarction (STEMI) of inferior wall: Code(s): I21.19 - ST elevation (STEMI) myocardial infarction involving other coronary artery of inferior wall Plan Proceed with emergency cath and PCI Documented By: Reji Saenz DO 10/27/23 4940 Signed By: <Electronically signed by Reji Saenz DO> 10/27/23 6023 [facility] Work Phone: [facility] general Narrative - Reported* Type Description Date [...] History CYSTOSCOPY Hospitalization History SEE SURGICAL HX [facility] [employer] Other Hospital Discharge instructions Additional Instructions We evaluated you for your shortness of breath. We discussed this is most likely due to your Brilinta. 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 Please follow close with your primary care doctor as well. Please return to the emergency department if you develop any worsening or concerning symptoms.[facility] Work Phone: Reason for referral (narrative)* Consultation (Routine) - Authorized Specialty Diagnoses / Procedures Referred By Jamel t Referred To Contact Cardiology Diagnoses Coronary artery disease, unspecified vessel or lesion type, unspecified whether angina present, unspecified whether tonto apache or transplanted heart Procedures Follow Up In Cardiology Inderjit Saenz DO [address] [place] [address] 2, [place] [id number] Inderjit Saenz DO [address] [place] [address] 2, [place] [id number] Referral ID Status Reason Start Date Expiration Date V isits Requested Visits Authorized [id number] Authorized 11/07/2023 11/06/2024 1 1 * Consultation (Routine) - Authorized Specialty Diagnoses / Procedures Referred By Jamel murphy Referred To Contact Cardiac Rehabilitation Diagnoses Coronary artery disease, unspecified vessel or lesion type, unspecified whether angina present, unspecified whether tonto apache or transplanted heart History of PTCA History of ST elevation myocardial infarction (STEMI) Inderjit Saenz DO [address] [place] [address] 2, [place] [id number] Referral ID Status Reason Start Date Expiration Date Visits Requested Visits Authorized [id number] Authorized Specialty Services Required 11/07/2023 11/06/2024 1 1 Scheduling Instructions Julius [facility] Work Phone: Reason for referral (narrative)No reason for [facility] Summary Purpose Family History Relationship Condition Age at Onset Recorded Date/T megan father Unknown family member Unknown Not Specified Unknown Relationship Condition Age at Onset Recorded Date/T megan father Unknown family member Unknown mother Unknown Advance Directives Advance Directive Response Recorded Date/ Time Advance Directives No April 3:31pm Advance Directive Response Recorded Date/ Time Advance Directives No July 18 2:08pm Advance Directive Response Recorded Date/ Time Advance Directives No February 10:12am Advance Directive Response Recorded Date/ Time Advance Directives No February 11:12am Advance Directive Response Recorded Date/ Time Advance Directives No August 18 9:23am Chief Complaint and Reason for Visit Chief [...] IBS (irritable bowel syndrome) Intermittent abdominal pain Chief Complaint Admit Date CC Adult Risk Stratification March 062023 2:14pm discuss test results-HIGH RISK March 09, 2024 3:47pm 4 month follow up March 11, 2024 1:00pm Ref: Dr. Du, Lung Mass March 12, 2024 10:33am right shoulder injection May 12, 2024 1:24pm Reason for Visit Admit Date ASHD (arteriosclerotic heart disease) 2023 3:47pm Hypercholesterolemia March 09, 2024 3:47pm IBS (irritable bowel syndrome) March 09, 2024 3:47pm Lung nodule March 09, 2024 3:47pm Medicare annual wellness visit, subseque nt March 09, 2024 3:47pm Nicotine addiction March 09, 2024 3:47pm Primary hypertension March 09, 2024 3:47pm Screening mammogram for breast cancer 2023 3:47pm Diarrhea March 11, 2024 1:00pm Fecal urgency March 11, 2024 1:00pm Gastroesophageal reflux dise ase with esophagitis without hemorrhage March 11, 2024 1:00pm History of colon cancer March 11, 2 024 1:00pm History of colon resection February 1:00pm IBS (irritable bowel syndrome) March 11, 2024 1:00pm Intermittent abdominal pain February 1:00pm Abnormal CT scan of lung March 12, 2024 10:33am Lung nodule May 12, 2024 1:24pm Rotator cuff arthropathy of right should er May 12, 2024 1:24pm Right shoulder pain May 12, 2024 1:24pm Chief Complaint Admit Date right shoulder injection May 12, 2024 1:24pm 3 month f/u/diarrhea July 20, 2024 10 :57am Reason for Visit Admit Date Lung nodule May 12, 2024 1:24pm Rotator cuff arthropathy of right should er May 12, 2024 1:24pm Right shoulder pain May 12, 2024 1:24pm Diarrhea July 20, 2024 10: 57am Gastroesophageal reflux dise ase with esophagitis without hemorrhage July 20, 2024 10:57am History of colon cancer July 20, 2024 10:57am IBS (irritable bowel syndrome) June 10:57am Intermittent abdominal pain July 20, 2024 10:57am Chief Complaint Admit Date 3 month f/u/diarrhea July 20, 2024 10 :57am HIGH RISK-rash on scalp/neck pain August 192024 1:30pm Reason for Visit Admit Date Diarrhea July 20, 2024 10: 57am Gastroesophageal reflux dise ase with esophagitis without hemorrhage July 20, 2024 10:57am History of colon cancer July 20, 2024 10:57am IBS (irritable bowel syndrome) June 10:57am Intermittent abdominal pain July 20, 2024 10:57am Chief Complaint Admit Date 3 month f/u/diarrhea [...] Seborrheic dermatitis August 19, 2024 1:3 0pm Reason for Referral Specialty Diagnoses / Procedures Referred By Jamel murphy Referred To Contact Diagnoses Near syncope Fatigue, unspecified type Procedures ECG 12 Lead Inderjit Saenz DO [address] [facility] [address] [place] [address] Referral ID Status Reason Start Date Expiration Date V isits Requested Visits Authorized [id number] Authorized 12/20/2023 12/19/2024 1 1 Additional Source Comments Reason for Visit (unrecogniz ed section and content) Reason Comments Headache Hypertension Reason Comments [place] [facility] [place] Reason Comments Follow-up Dyspnea, near syncop e, med concerns Specialty Diagnoses / Procedures Referred By Contac t Referred To Contact Diagnoses Near syncope Fatigue, unspecified type Procedures ECG 12 Lead Inderjit Saenz, DO [address] [facility] [address], [place] [id number] Referral ID Status Reason Start Date Expiration Date V isits Requested Visits Authorized [id number] Authorized 12/20/2023 12/19/2024 1 1 Reason Comments Follow-up 6m Coronary Artery Disease Specialty Diagnoses / Procedures Referred By Contac t Referred To Contact Cardiology Diagnoses Coronary artery disease, unspecified vessel or lesion type, unspecified whether angina present, unspecified whether tonto apache or transplanted heart Procedures Follow Up In Cardiology Inderjit Saenz, DO [address] [facility] [address], [place] [phone] Phone: tel: fax: JettInderjit, DO [address] [facility] [address], [address] [address] Phone: tel: fax: Referral ID Status Reason Start Date Expiration Date V isits Requested Visits Authorized [id number] Pending Review 11/07/2023 11/06/2024 1 1 Reason Comments Follow-up Shortness of breath, fatigue Reason Comments Follow-up 1 months Coronary ar shira disease, unspecified vessel or lesion type, unspecified whether angina present, unspecified whether tonto apache or transplanted heart Specialty Diagnoses / Procedures Referred By Contac t Referred To Contact Cardiology Diagnoses Fatigue, unspecified type Procedures Follow Up In Cardiology Vanessa Dave, GEOMORPHOLOGIST-MATERIAL PLANNING ANALYST [address] [facility] [address], [place] [id number] Phone: tel: fax: Referral ID Status Reason Start Date Expiration Date V isits Requested Visits Authorized [id number] Authorized 08/05/2024 08/05/2025 1 1 INFORMATION SOURCE (unrecogn ized section and content) DATE CREATED AUTHOR 05/23/2022 [facility] DATE CREATED AUTHOR AUTHOR'S ORGANIZ ATION 05/25/2022 [facility] DATE CREATED AUTHOR AUTHOR'S ORGANIZ ATION 04/25/2023 [facility] EPIC DATE CREATED AUTHOR AUTHOR'S ORGANIZ ATION 03/09/2024 [facility] DATE CREATED AUTHOR AUTHOR'S ORGANIZ ATION 08/18/2024 [facility] Teams (unrecognized sec tion and content) Team Status: Active Member Role Status Dates Branden Du DO Primary Care Provider Active Team Status: Inactive Member Role Status Dates Branden Du DO Primary Care Provider Active Start: July 20, 2024 End: July 20, 2024 Sylvester Monk MD Attending Provider Active S tart: July 20, 2024 End: July 20, 2024 Team Status: Active Member Role Status Dates Branden Du DO Primary Care Provider Active Start: August 05, 2024 Vanessa Dave APRN Attending Provider Active S tart: August 05, 2024 Team Status: Inactive Member Role Status Dates Branden Du DO Primary Care Provide r, Attending Provider Active Start: August 19, 2024 End: August 19, 2024 Team Status: Active Member Role Status Dates Branden Du DO Primary Care Provide r, Attending Provider Active Start: March 06, 2024 Team Status: Inactive Member Role Status Dates Branden Du DO Primary Care Provide r, Attending Provider Active Start: March 09, 2024 End: March 09, 2024 Team Status: Inactive Member Role Status Dates Branden Du DO Primary Care Provider Active Start: March 11, 2024 End: March 11, 2024 Sylvester Monk MD Attending Provider Active S tart: March 11, 2024 End: March 11, 2024 Team Status: Inactive Member Role Status Dates Branden Du DO Primary Care Provider Active Start: March 12, 2024 End: March 12, 2024 Marito Brambila MD Attending Provider Active Start: March 12, 2024 End: March 12, 2024 Team Status: Active Member Role Status Dates Branden Du DO Primary Care Provide r, Attending Provider Active Start: April 28, 2024 Team Status: Inactive Member Role Status Dates Branden Du DO Primary Care Provide r, Attending Provider Active Start: May 12, 2024 End: May 12, 2024 Team Status: Inactive Member Role Status Dates Doe Álvarez PA-C Emergency Provider Active Start: October 27, 2023 End: October 29, 2023 Branden Du DO Primary Care Provider Active Start: October 27, 2023 End: October 29, 2023 Reji Seanz , DO Admit Provider, Att ending Provider Active [...] Active Start: October 27, 2023 Reji Saenz , DO Admit Provider, Att ending Provider Active [...] December 12, 2023 End: December 12, 2023 Roller 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 Relationship Specialty Start Date End Date Branden Du DO [address] [place] [address] PCP - General Internal Medicine 11/07/23 Maura Andres RN Care Band Instrument Maker 10/30/23 Roller 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 Relationship Specialty Start Date End Date Branden Du DO [address] [place] [address] PCP - General Internal Medicine 11/07/23 Maura Andres, camera tuning engineerBand Instrument Maker 10/30/23 Roller 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 Relationship Specialty Start Date End Date PhillyBranden DO [address] [place] [address] PCP - General Internal Medicine 11/07/23 Roller 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 Relationship Specialty Start Date End Date Branden Du DO [address] [place] [address] PCP - General Internal Medicine 11/07/23 Team Status: Inactive Member Role Status Dates Branden Du DO Primary Care Provider Active Start: August 19, 2024 End: August 19, 2024 Branden Du DO Attending Provider Active Sta rt: August 19, 2024 End: August 19, 2024 Team Status: Inactive Member Role Status Dates Branden Du DO Primary Care Provider Active Start: September 29, 2024 End: September 29, 2024 Sobia Okeefe MD Attending Provider Active Start: September 29, 2024 End: September 29, 2024 Roller 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 [facility] [employer] [facility]. provides no warranty or guarantee of the accuracy or completeness of information in this document.
--- NOTE | 2024-10-03 15:36 | ECG_ITS ---
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
[2024-10-03 15:53] LABS: Hematocrit 39.3 % (36.0-48.0); Hemoglobin 13.3 g/dL (12.0-16.0); Immature Granulocytes Abs Auto 0.01 10^3/uL (0.00-0.03); Immature Granulocytes Pct Auto 0.2 % (0.0-0.5); Lymphocytes Absolute Auto 1.4 10^3/uL (1.2-3.8); Mean Corpuscular HGB Conc 33.8 g/dL (29.9-35.2); Mean Corpuscular Hemoglobin 32.9 pg (26.7-34.0); Mean Corpuscular Volume 97.3 fL (81.0-99.0); Platelet Count 250 10^3/uL (150-450); Red Blood Count 4.04 10^6/uL (4.20-5.40); White Blood Count 6.1 10^3/uL (4.0-11.0)
[2024-10-03 16:07] LABS: Alanine Aminotransferase 30 U/L (14-59); Albumin Globulin Ratio 1.1; Albumin Level 3.5 g/dL (3.4-5.0); Alkaline Phosphatase 109 U/L (46-116); Anion Gap 13.1; Aspartate Amino Transferase 15 U/L (15-37); Blood Urea Nitrogen 25.0 mg/dL (7.0-18.0); Calcium 9.5 mg/dL (8.5-10.1); Carbon Dioxide 26.7 mmol/L (21.0-32.0); Chloride 104 mmol/L (98-107); Estimated GFR (African America >60 (>=60 mL/min/1.73m^2); Estimated GFR (Non-African Ame >60 (>=60 mL/min/1.73m^2); Globulin 3.2 g/dL; Glucose 112 mg/dL (74-106); Potassium 3.8 mmol/L (3.5-5.1); Sodium 140 mmol/L (136-145); Total Protein 6.7 g/dL (6.4-8.2)
--- NOTE | 2024-10-03 16:18 | CT_ITS ---
The [address] [address] Patient Name: EVER BREWER MRN: [id number] date: 1940 Sex: F Assigned Patient Location: ER Current Patient Location: ER Accession/Order Number: [id number] Exam Date: 10/03/2024 16:58 Report Date: 10/03/2024 17:01 At the request of: TESS BARTON MD Procedure: CT head/brain wo con CT head/brain wo con 10/03/2024 4:48 PM SIGNS AND SYMPTOMS: Dizziness, imbalance TECHNIQUE:Multi-detector CT axial slices of the brain were obtained without IV contrast. CT was performed with one or more of the following dose reduction techniques: Automated exposure control, adjustment of the mA and/or kV according to patient size, or use of iterative reconstruction technique. COMPARISON: None. FINDINGS: There is no shift of the midline structures, acute intracranial bleeding, mass effects, or evidence of acute ischemia. There is age-related cortical atrophy with periventricular white matter hypoattenuation. Atherosclerotic changes are noted in the intracranial segments of the internal carotid arteries. There is mineralization in the left deep grady nuclei. The ventricular system is normal in size. The brainstem and the cerebellum are unremarkable. The visualized intraorbital contents, the visualized paranasal sinuses, and the infratemporal soft tissues show no acute abnormality. The osseous structures in the skull base and the calvarium show no abnormality. CT/CT head/brain wo con IMPRESSION: No acute intracranial pathology. Chronic age-related neurodegenerative changes are noted as above. Impression dictated by: Endy Crowley M.D. 10/03/2024 5:01 PM [facility]ation [facility] Electron[facility] authenticated by: [id number] Y Date: 10/03/2024 17:01
[2024-10-03] MEDS: 0.9 % SODIUM CHLORIDE 1,000 ML 500 ML IV (16:57)
[2024-10-03 17:05] LABS: Glucose Urine UA NEGATIVE (NEGATIVE)
[2024-10-03 17:18] LABS: Cast Seen? NONE SEEN #/LPF (NONE SEEN); Crystals Seen? None Seen #/HPF (None Seen); Urine Culture Indicated YES-FRMC
--- NOTE | 2024-10-03 17:46 | ED.DIZZY1 ---
HPI - Dizziness General Chief Complaint: Dizziness Stated Complaint: LIGHTHEADED Time Seen by Provider: 10/03/24 15:28 Source: patient Mode of arrival: Wheelchair History of Present Illness HPI Narrative: The patient is a 83-year-old female presenting to the ER with a sense of dizziness for the last almost 1 week, patient denies any fall or trauma she denies any nausea vomiting or any decrease in p.o. intake She recently had her metoprolol stopped and she was started on Coreg for further control of her blood pressure Patient mentioned that she feels sometimes that she is out of balance when she is walking, and she does not feel that the room is spinning The patient denies any other concerns at the moment Related Data Home Medications ?Medication ?Instructions ?Recorded ?Confirmed amlodipine 5 mg tablet 5 mg PO DAILY 10/03/24 10/03/24 aspirin 81 mg capsule 81 mg PO DAILY 10/03/24 10/03/24 atorvastatin 80 mg tablet 80 mg PO QPM 10/03/24 10/03/24 carvedilol 6.25 mg tablet 6.25 mg PO BID 10/03/24 10/03/24 clopidogrel 75 mg tablet 75 mg PO DAILY 10/03/24 10/03/24 dicyclomine 20 mg tablet 20 mg PO BID 10/03/24 10/03/24 ketoconazole 2 % shampoo 1 applic topical .3 times a wk 10/03/24 10/03/24 losartan 50 mg tablet 50 mg PO BID 10/03/24 10/03/24 nitroglycerin 0.4 mg sublingual 0.4 mg buccal Q5M PRN chest pain 10/03/24 10/03/24 tablet omeprazole 40 mg capsule,delayed 40 mg PO DAILY PRN gerd 10/03/24 10/03/24 release Allergies Allergy/AdvReac Type Severity Reaction Status Date / Time Penicillins Allergy Severe Hives Verified 10/03/24 15:28 Review of Systems ROS Status of ROS 10 or more systems reviewed and unremarkable except as noted in history and below [facility] Medical History (Updated 10/03/24 @ 17:47 by Laurie Mills MD) High cholesterol ?E78.00 - Pure hypercholesterolemia, unspecified (ICD-10) HTN (hypertension) ?I10 - Essential (primary) hypertension (ICD-10) Heart attack ?I21.9 - Acute myocardial infarction, unspecified (ICD-10) IBS (irritable bowel syndrome) ?K58.9 - Irritable bowel syndrome, unspecified (ICD-10) Surgical History (Updated 10/03/24 @ 15:36 by Venita Alonso) H/O heart artery stent ?Z95.5 - Presence of coronary angioplasty implant and graft (ICD-10) Social History Little interest or pleasure in doing things: not at all Feeling down, depressed, or hopeless: not at all Exam Narrative Exam Narrative: Nurses notes and vital signs reviewed and patient is not hypoxic. General: Well-appearing and in no apparent distress. Skin: Warm, dry, no pallor noted. No rash. Head: Normocephalic, atraumatic. Neck: Supple, non-tender. Eye: Pupils are equal, round and EOMI. No scleral icterus. Ears, Nose, Mouth, and Throat: TM are clear, no nasal mucosal hypertrophy. Oral mucosa is moist, no posterior oropharynx erythema, uvula is mid-line Cardiovascular: Regular Rate and Rhythm without murmur, gallop or rub. Respiratory: No accessory muscle use or respiratory distress. Lungs are clear to auscultation, no wheezing, rales or rhonchi Chest Wall: no tenderness Back: No midline thoracic or lumbar vertebral tenderness. No CVA tenderness Musculoskeletal: normal ROM, no calf or popliteal tenderness, no lower extremity edema/swelling GI: Abdomen is soft, non-distended. Normal bowel sounds. No masses appreciated. No tenderness to palpation. No rebound, guarding, or rigidity noted. Neurological: A&O x4. No cranial nerve dysfunction observed. No truncal ataxia. Moves all extremities. Sensation intact. Psychiatric: Cooperative and interactive. Normal mood and affect. Constitutional Vital Signs, click to edit/add: Last Vital Signs Temp 98.0 F 10/03/24 15:23 Pulse 63 10/03/24 17:40 Resp 23 H 10/03/24 17:40 BP 129/88 10/03/24 17:31 Pulse Ox 97 10/03/24 16:30 O2 Del Method Room Air 10/03/24 15:23 Course Vital Signs Vital signs: Vital Signs Temperature 98.0 F 10/03/24 15:23 Pulse Rate 77 10/03/24 15:23 Blood Pressure 160/91 H 10/03/24 15:23 Pulse Oximetry 98 10/03/24 15:23 Oxygen Delivery Method Room Air 10/03/24 15:23 Temperature 98.0 F 10/03/24 15:23 Pulse Rate 63 10/03/24 17:40 Respiratory Rate 23 H 10/03/24 17:40 Blood Pressure 129/88 10/03/24 17:31 Pulse Oximetry 97 10/03/24 16:30 Oxygen Delivery Method Room Air 10/03/24 15:23 MDM - Dizziness MDM Narrative Medical decision making narrative: The patient EKG showing sinus rhythm with a heart rate of [address] elevation or depression Patient orthostatic were negative and her blood workup showed some elevated BUN The fact that the patient had a history of hypertension and some problem with imbalance although the patient does not have any apparent weakness the patient had a CT of the head showing no acute pathology Patient was feeling better after the initial treatment with IV fluids she was discharged home to continue hydration She was able to ambulate with no difficulty and feeling much better The patient is to follow up with primary care physician in next 2-3 days or to return to the emergency department should any of the signs or symptoms worsen or new symptoms develop. The patient agrees with the following Diagnosis and Treatment plan and the patient will be discharged home. Lab Data Labs: Lab Results 10/03/24 10/03/24 Range/Units 15:34 16:46 WBC 6.1 (4.0-11.0) 10^3/uL RBC 4.04 L (4.20-5.40) 10^6/uL Hgb 13.3 (12.0-16.0) g/dL Hct 39.3 (36.0-48.0) % MCV 97.3 (81.0-99.0) fL MCH 32.9 (26.7-34.0) pg MCHC 33.8 (29.9-35.2) g/dL RDW 13.3 (11.0-15.0) % Plt Count 250 (150-450) 10^3/uL MPV 9.6 (9.5-13.5) fL Neut % (Auto) 63.5 (43.0-75.0) % Lymph % (Auto) 22.6 (20.5-60.0) % Lyon % (Auto) 12.1 H (1.7-12.0) % Eos % (Auto) 1.1 (0.9-7.0) % Baso % (Auto) 0.5 (0.2-2.0) % Neut # (Auto) 3.9 (1.4-6.5) 10^3/uL Lymph # (Auto) 1.4 (1.2-3.8) 10^3/uL Lyon # (Auto) 0.7 (0.3-0.8) 10^3/uL Eos # (Auto) 0.1 (0.0-0.7) 10^3/uL Baso # (Auto) 0.0 (0.0-0.1) 10^3/uL Abs Immat Gran (auto) 0.01 (0.00-0.03) 10^3/uL Imm/Tot Granulo (auto) 0.2 (0.0-0.5) % Sodium 140 (136-145) mmol/L Potassium 3.8 (3.5-5.1) mmol/L Chloride 104 (98-107) mmol/L Carbon Dioxide 26.7 (21.0-32.0) mmol/L Anion Gap 13.1 BUN 25.0 H (7.0-18.0) mg/dL Creatinine 0.82 (0.55-1.02) mg/dL Est GFR ( Amer) >60 (>=60 mL/min/1.73m^2) Est GFR (Non-Af Amer) >60 (>=60 mL/min/1.73m^2) BUN/Creatinine Ratio 30.5 Glucose 112 H (74-106) mg/dL Calcium 9.5 (8.5-10.1) mg/dL Total Bilirubin 0.4 (0.2-1.0) mg/dL AST 15 (15-37) U/L ALT 30 (14-59) U/L Alkaline Phosphatase 109 (46-116) U/L Troponin I High Sens 5.7 (4.0-51.3) pg/mL Total Protein 6.7 (6.4-8.2) g/dL Albumin 3.5 (3.4-5.0) g/dL Globulin 3.2 g/dL Albumin/Globulin Ratio 1.1 Urine Color Lt. yellow (YELLOW) Urine Clarity Clear (CLEAR) Urine pH 6.0 (5.0-9.0) Ur Specific [place] <=1.005 A (1.005-1.025) Urine Protein Negative (NEG/TRACE) mg/dL Urine Glucose (UA) Negative (NEGATIVE) mg/dL Urine Ketones Negative (NEGATIVE) mg/dL Urine Occult Blood Trace-l (NEGATIVE) Urine Nitrite Negative (NEGATIVE) Urine Bilirubin Negative (NEGATIVE) Urine Urobilinogen 0.2 (0.2-1.0) EU/dL Ur Leukocyte Esterase Small A (NEGATIVE) Urine RBC 2-5 A (0-2) #/HPF Urine WBC 5-10 A (NONE SEEN) #/HPF Ur Squamous Epith Cells Rare (NONE/RARE) #/LPF Urine Crystals None seen (None Seen) #/HPF Urine Bacteria Small A (NONE SEEN) #/HPF Urine Casts None seen (NONE SEEN) #/LPF Urine Mucus None seen (NONE SEEN) Ur Culture Indicated? Yes-[facility] Discharge Plan Discharge Chief Complaint: Dizziness Clinical Impression: Dizziness, Dehydration Patient Disposition: Home, Self-Care Time of Disposition Decision: 17:47 Condition: Good Prescriptions / Home Meds: No Action amlodipine 5 mg tablet 5 mg PO DAILY atorvastatin 80 mg tablet 80 mg PO QPM carvedilol 6.25 mg tablet 6.25 mg PO BID clopidogrel 75 mg tablet 75 mg PO DAILY dicyclomine 20 mg tablet 20 mg PO BID ketoconazole 2 % shampoo 1 applic TOPICAL .3 times a wk losartan 50 mg tablet 50 mg PO BID omeprazole 40 mg capsule,delayed release(DR/EC) 40 mg PO DAILY PRN (Reason: gerd) aspirin 81 mg capsule 81 mg PO DAILY nitroglycerin 0.4 mg tablet, sublingual 0.4 mg buccal Q5M PRN (Reason: chest pain) Print Language: Cymro Instructions: Dehydration (ED), Dizziness (ED) Referrals: Branden Du DO [Primary Care Provider, Internal Medicine] - 1 week Discharge Date/Time: 10/03/24 17:55
== END 2024-10-03 17:55 | disposition home or self-care (01) ==
PROVIDERS: Emergency Provider Emergency Medicine; PCP Internal Medicine
DX: R42 Dizziness and giddiness (principal); E86.0 Dehydration; R82.998 Other abnormal findings in urine
CPT/HCPCS: 36415; 70450; 80053; 81001; 84484; 85025; 87086; 87088; 87186; 93005; 96360; 99285

== ENCOUNTER 2024-11-02 13:48 | Outpatient (OUT) | payer MEDICARE, SELFPAY ==
--- NOTE | 2024-11-02 13:55 | MR_ITS ---
[address] [address] Patient Name: EVER BREWER MRN: [id number] date: 1940 Sex: F Assigned Patient Location: MRI Current Patient Location: MRI Accession/Order Number: [id number] Exam Date: 11/02/2024 15:50 Report Date: 11/02/2024 16:05 At the request of: ERNESTO FRAGA DO Procedure: MR cervical spine wo con EXAMINATION: MRI OF THE CERVICAL SPINE WITHOUT CONTRAST CLINICAL DATA: Spondylosis Of Cervical Spine, Neck Pain TECHNIQUE: Multiecho imaging was performed in the sagittal and axial plane without contrast FINDINGS: The craniocervical junction is maintained. Cervical vertebral heights, alignment is unremarkable. Anterolisthesis C4-C5 and C5 on C6 measuring 2 to 3 mm. Anterolisthesis C6 on C7 and C7-T1 measuring 1 mm. Slight heterogeneity of the bone marrow signal may relate to red marrow to yellow marrow conversion, correlate with CBC and history. Endplate marrow changes notably C3-C5. There is moderate intervertebral space narrowing C3-C5. Cervical cord demonstrates normal signal and morphology. There is motion artifact on the axial images which degrades evaluation. C2-C3: Mild left-sided facet arthropathy causing mild left-sided foraminal narrowing. Central canal right foramen are patent. C3-C4: Broad-based disc osteophyte complex. Uncovertebral spurring. Suspect moderate bilateral foraminal. Canal appears grossly patent. C4-C5: Motion degradation. Broad-based disc osteophyte complex and uncovertebral spurring causing moderate bilateral foraminal narrowing. There is at least [id number] central canal stenosis. C5-C6: Broad-based disc osteophyte complex with bilateral facet and uncovertebral spurring. There is at least moderate severe right and mild left foraminal narrowing and central canal stenosis. C6-C7: Disc osteophyte complex. Minimal foraminal narrowing suspected. Canal is patent. Facet arthropathy. C7-T1: Anterolisthesis with uncovering disc. Minimal disc ossified complex. There is mild to moderate foraminal narrowing predominantly caused by the facet arthropathy. 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 MODERATE FORAMINAL NARROWING C3-C5 WITH MODERATE SEVERE RIGHT FORAMINAL NARROWING AT C5-C6. Impression dictated by: Calixto Johnson M.D. 11/02/2024 4:05 PM Dictation Location: [place] [address] Electronically authenticated by: [id number] Y Date: 11/02/2024 16:05
== END 2024-11-02 13:49 | disposition home or self-care (01) ==
LOC: MRI 13:48
PROVIDERS: PCP Internal Medicine; Visit Provider Internal Medicine
DX: M47.812 Spondylosis without myelopathy or radiculopathy, cervical region (principal); M54.2 Cervicalgia; M48.02 Spinal stenosis, cervical region
CPT/HCPCS: 72141

== ENCOUNTER 2024-11-03 17:24 | Outpatient (OUT) | payer MEDICARE, SELFPAY | END 2024-11-03 17:25 | disposition home or self-care (01) | LOC: US 17:24 | PROVIDERS: PCP Internal Medicine; Visit Provider Nurse Practitioner | DX: R60.0 Localized edema (principal) | CPT/HCPCS: 93971 ==

== ENCOUNTER 2024-11-07 16:02 | Emergency (ER) | payer MEDICARE, SELFPAY ==
--- OUTSIDE RECORDS SUMMARY | 2024-11-03 14:00 | XMS_ITS | Encounter Summary ---
Author Organization [facility] Address [address] [place] [address] Phone Care Team Providers Care Director Title Name Role Phone Branden Du Primary Care Provider [phone] Reason for Referral * Imaging (Emergency) - Authorized Specialty Diagnoses / Procedures Referred By aJmel murphy Referred To Contact Cardiology Diagnoses Localized edema Procedures Vascular US lower extremity venous duplex right Jeannette Dave APRN-CNP [address]03 [facility] [address], [address] [address] Phone: tel: fax: Referral ID Status Reason Start Date Expiration Date Visits Requested Visits Authorized [id number] Authorized Perform Procedure 11/03/2024 11/03/2025 1 1 Reason for Visit * Reason Comments Follow-up 7 month Follow up fo r Hypertension * Consultation (Routine) - Authorized Specialty Diagnoses / Procedures Referred By Jamel murphy Referred To Contact Cardiology Diagnoses Essential hypertension Procedures Follow Up In Cardiology Jeannette Dave APRN-CNP [address] [facility] [address], [address] [address] Phone: tel: fax: Referral ID Status Reason Start Date Expiration Date V isits Requested Visits Authorized [id number] Authorized 09/29/2024 09/29/2025 1 1 Encounter Details Date Type Department Care Team (Late st Contact Info) Description 11/03/2024 2:00 PM EDT Office Visit [facility] [address] [address] Jeannette Dave APRN-CNP 3 [facility] [address] [place] [address] BMI 27.0-27.9,adult (Primary Dx); Essential hypertension; Localized edema Discharge Disposition: Home Social History Tobacco Use Types Packs/Day Years Used Date Smoking Tobacco: Former Cigarettes 0.5 38 S tarted: 1956 Smokeless Tobacco: Never Tobacco Cessation:Counseling Given: Not [...] Sign Reading Time Taken Comments Blood Pressure 102/60 11/03/2024 2:04 PM EDT Pulse 60 11/03/2024 2:04 PM EDT Temperature - - Respiratory Rate - - Oxygen Saturation - - Inhaled Oxygen Concentration - - Weight 65.3 kg (144 lb) 11/03/2024 2:04 PM EDT Height 154.9 cm (5' 1 ) 11/03/2024 2:04 PM EDT Body Mass Index 27.21 11/03/2024 2:04 PM EDT documented in this encounter Patient Instructions * Patient Instructions* ROLAND Becerril - 11/03/2024 2:00 PM EDT Please bring all medicines, [...] Current treatment clinically warranted and to continue without modifications. 2. Vascular USN RLE rule out DVT (edema, pain after flight) 3. Return for follow-up; in the interim, contact the office if new symptoms arise. ELEVATOR CONSTRUCTOR HYDRAULIC as scheduled documented in this encounter Progress Notes * ROLAND Becerril - 11/03/2024 2:00 PM EDT Subjective: Genny Barboza is a 84 y.o. female with hypertension. Since the office ambulatory steady gait. Accompanied by her daughter. Last evaluated in clinic by myself September 2024. At that time discontinued Lopressor due to fatigability she was initiated on carvedilol. She has been compliant with changes. She had called into the office reporting dizziness, went to the ER was diagnosed with dehydration and UTI and symptoms abated without change in antihypertensives. She presents the office today report only notes blood pressure, she reports this is unusual for her. Systolic blood pressures pretty consistently in the 130s at home. Otherwise, she just recently traveled to [place] and has noted some right pedal edema, she has someright calf discomfort positive Homans' sign. No shortness of breath, no pleuritic chest pain. Will check ultrasound to rule out DVT. Current Outpatient Medications Medication Instructions amLODIPine (NORVASC) 5 mg, Daily aspirin 81 mg, Daily atorvastatin (LIPITOR) 80 mg, oral, Every evening carvedilol (COREG) 6.25 mg, oral, 2 times [...] omeprazole (PRILOSEC) 40 mg, Daily before breakfast Hypertension ROS: taking medications as instructed, no medication side effects noted, no TIA's, no chest pain on exertion, no dyspnea on exertion, and no swelling of ankles. New concerns: RLE pain, edema. Objective: BP 102/60 (BP Location: Left arm, Patient Position: Sitting) Pulse 60 Ht (!) 1.549 m (5' 1 ) Wt 65.3 kg (144 lb) BMI 27.21 kg/m?? Appearance alert, well appearing, and in no distress. General exam BP noted to be well controlled today in office, S1, S2 normal, no gallop, no murmur, chest clear, no JVD, no HSM, no edema. Lab review: no lab studies available for review at time of visit. Assessment: Hypertension well controlled. Resolved off of Lopressor. Right lower extremity edema and calf pain, positive Joaquin. Equal peripheral pulses. No open wounds.Recent travel to [place]. Plan: Through informed decision making process incorporating patients unique circumstances, the followingtreatment plan will be initiated: 1. Prescription drug management of cardiovascular medication for efficacy, adherence to treatment, side effect assessment and polypharmacy. Current treatment clinically warranted and to continue without modifications. 2. Vascular USN RLE rule out DVT (edema, pain after flight) 3. Return for follow-up; in the interim, contact the office if new symptoms arise. ELEVATOR CONSTRUCTOR HYDRAULIC as scheduled Jeannette Dave MSN, BILLET WORKER-GLASS RIBBON MACHINE OPERATOR ASSISTANT, PMHNP-[facility] [place], [place] Please excuse any errors in grammar or translation related to this dictation. Voice recognition software was utilized to prepare this document. documented in this encounter Miscellaneous Notes * Assessment & Plan Note - ROLAND Becerril - 11/03/2024 2:22 PM EDT Associated Problem(s): Localized edema After flight to [place] has noticed RLE pedal edema and calf pain. Will get USN to rule out DVT documented in this encounter Plan of Treatment Upcoming Encounters Date Type Department Care Team (Late st Contact Info) Description 01/27/2025 1:00 PM EST Office Visit [facility] 703 [facility] [address] [place] [address] Jeannette Dave APRN-CNP 703 [facility] [address] [place] [address] Scheduled Orders Name Type Priority Associated Diagnoses Orde r Schedule Vascular US lower extremity venous duplex right Vascular Ultrasound STAT Localized edema Expected: 11/03/2024 (Approximate), Expires: 11/03/2026 documented as of this encounter Visit Diagnoses Diagnosis BMI 27.0-27.9,adult- Primary Essential hypertension Unspecified essential hypertension Localized edema Edema documented in this encounter Additional Health Concerns Assessment Noted Time A fall risk assessment has been complete d for the patient 11/03/2024 2:05 PM EDT documented as of this encounter Care Teams Director Title Relationship Specialty Start Date End Date Branden Du DO [address] [place] [address] PCP - General Internal Medicine 11/07/23 documented as of this encounter
--- OUTSIDE RECORDS SUMMARY | 2024-11-07 16:09 | XMS_ITS | Encounter Summary ---
Author Organization [facility] Address [address] [place] [address] Phone Care Team Providers Care Laser Operator Name Role Phone Maura Andres RN Unavailable Unavailable Branden Du DO Primary Care Provider [phone] Encounter Details Date Type Department Care Team (Late st Contact Info) Description 10/29/2023 Scanned Document [facility] [address] [place] [id number] Scanning, Generic Provider Social History Tobacco Use [...] Description 01/27/2025 1:00 PM EST Office Visit [facility] [address] [facility] [address] [place] [phone] Jeannette Dave, FORESTRY CREW CHIEF-PREASSEMBLER AND INSPECTOR [address] [facility] [address] [place] [address] documented as of this encounter Visit Diagnoses Not on filedocumented in this encounter Care Teams Laser Operator Relationship Specialty Start Date End Date Branden Du DO [address] [place] [address] PCP - General Internal Medicine 11/07/23 Maura Andres, brick extruder operatorBell Neck Hammerer 10/30/23 01/28/24 documented as of this encounter
--- OUTSIDE RECORDS SUMMARY | 2024-11-07 16:09 | XMS_ITS | Encounter Summary ---
Author Organization [facility] Address [address] [place] [address] Phone Care Team Providers Care Warehouse Traffic Supervisor Name Role Phone Branden Du DO Primary Care Provider [phone] Encounter Details Date Type Department Care Team (Late st Contact Info) Description 11/03/2024 Scanned Document [facility] [address] [place] [id number] Scanning, Generic Provider Social History Tobacco Use Types Packs/Day Years Used Date Smoking Tobacco: Former Cigarettes 0.5 38 S tarted: 1956 Smokeless Tobacco: Never Alcohol Use Standard Drinks/Week [...] Description 01/27/2025 1:00 PM EST Office Visit [facility] 703 [facility] [address] [place] [address] Jeannette Dave, SUPERVISORY INVESTIGATIVE SPECIALIST-ORAL HEALTH THERAPIST 703 [facility] [place] [address] Scheduled Orders Name Type Priority Associated Diagnoses Orde r Schedule Ultrasound- OnBase Scan Imaging O rdered: 11/03/2024 documented as of this encounter Visit Diagnoses Not on filedocumented in this encounter Additional Health Concerns Assessment Noted Time A fall risk assessment has been complete d for the patient 11/03/2024 2:05 PM EDT documented as of this encounter Care Teams Warehouse Traffic Supervisor Relationship Specialty Start Date End Date Branden Du DO [address] [place] [place] [address] PCP - General Internal Medicine 11/07/23 documented as of this encounter
--- OUTSIDE RECORDS SUMMARY | 2024-11-07 16:09 | XMS_ITS | CCD ---
Author Organization [facility] CliniSyar Care Team Providers Care Product Safety Manager Name Role Phone Unavailable Primary Care Provider Unavailjuan ramon DU, DR OROZCO Primary Care Unavailable MAUREEN ., ALBERTO Admitting Unavailable MAUREEN ., ALBERTO Attending Unavailable MAUREEN ., ALBERTO Consulting Unavailable PHILLY, DR OROZCO Admitting Unavailable PHILLY, DR OROZCO Attending Unavailable PHILLY, DR OROZCO Consulting Unavailable PHILLY, DR OROZCO Primary Care Unavailable CHARLES, DR JOAQUIN Canales Consulting Unavailable PHILLY, DR OROZCO Admitting Unavailable BALL, DR OROZCO Attending Unavailable BALL, DR OROZCO Consulting Unavailable BALL, DR OROZCO Primary Care Unavailable RACIEL, DR KALPANA Phelps Consulting Unavailable PROVIDER, UNKNOWN Attending Unavailable PROVIDER, UNKNOWN Admitting Unavailable Branden Du Unavailable ELENA HASSAN Attending Unavailable DO Branden Du Primary Care Provider DO Branden Du Attending Provider DO Branden Du Primary Care Provider DO Branden Du Attending Provider [phone] FLAKITA Álvarez Emergency Provider DO Branden Du Primary Care Provider DO Reji Frausto Admit Provider DO Reji Frausto Attending Provider MD Sobia Okeefe Other Provider DO Rona Andres Emergency Provider Dmitry NATION, Maura Unavailable Unavailable Branden Du DO Primary Care Provider Branden Du DO Primary Care Provider Aleshia LOZANO, Sylvester Lozano Attending Provider [phone] Vanessa Dave APRN Attending Provider Branden Du DO Attending Provider Sobia Okeefe MD Attending Provider Laurie Mills MD Attending Provider Branden Du Primary Care Unavailable Rona Andres Admitting Unavailable Rona Andres Attending Unavailable Laurie Mills Attending Unavailable Laurie Mills Admitting Unavailable JettReji Admitting Unavailable JettReji moffett Attending Unavailable Branden Du Primary Care Unavailable Sobia Okeefe Consulting Unavaila ble Branden Du DO Primary Care Provider VANESSA DAVE Attending Unavailable VANESSA DAVE Referring Unavailable BRANDEN DU Primary Care Unavailable JETT, INDERJIT Bauman Attending Unavailable BRANDEN DU Primary Care Unavailable JETT, INDERJIT Bauman Attending Unavailable BRANDEN DU Primary Care Unavailable JETT, INDERJIT S Attending Unavailable JETT, INDERJIT S Referring Unavailable BRANDEN DU Primary Care Unavailable VANESSA DAVE Attending Unavailable BRANDEN DU Primary Care Unavailable VANESSA DAVE Attending Unavailable VANESSA DAVE Referring Unavailable BRANDEN DU Primary Care Unavailable Allergies Allergy Classification Reported Allergen(s) Allergy Type Date of Onset Reaction(s) Facility (2 sources) Penicillins; Translations: [PENICILLINS] Drug allergy (disorder) 4 [facility] (12 sources) Substance with penicillin structure and antibacterial mechanism of action (substance) Drug allergy 4 Unknown [facility] Other (2 sources) Penicillins Propensity to adverse reactions 4 Unknown [facility] (3 sources) Penicillins Propensity to adverse reactions 4 Unknown [facility] (1 source) Penicillins Drug allergy (disorder) 5 [facility] Repository Medications Current Medications Medication Drug Class(es) [...] aspirin 81 mg delayed release oral tablet (17 sources) Platelet Aggregation Inhibitor, Nonsteroidal Anti-inflammatory Drug Start: 10-29-2023 take 1 tablet by mouth once daily Aspirin 81 mg Tablet,Delayed Release (Dr/Ec) Active 81 MG PO Daily 90 October 29, 2023 12:00am Complies with drug therapy atorvastatin 80 mg oral tablet (17 sources) HMG-CoA Reductase Inhibitor Start: 10-29-2023 take 1 tablet by mouth once daily in the evening Atorvastatin 80 mg Tablet Active 80 MG PO Every evening 90 90 October 29, 2023 12:00am Complies with drug therapy carvedilol 6.25 mg oral tablet (4 sources) alpha-Adrenergic Fariha, beta-Adrenergic Fariha Start: 09-29-2024 End: 09-29-2025 take 1 tablet by mouth twice daily at mealtime Carvedilol 6.25 mg tablet Active 6.25 MG PO Twice daily 60 September 30, 2024 12:00am must administer with a meal/food Complies with drug therapy clobetasol propionate 0.5 mg/ml topical solution (3 sources) Corticosteroid Start: 08-19-2024 Clobetasol 0.05 % solution Active 1 APPLIC TOPICAL Daily at bedtime August 19, 2024 12:00am Complies with drug therapy clopidogrel 75 mg oral tablet (11 sources) P2Y12 Platelet Inhibitor Start: 12-20-2023 End: 12-19-2024 take 1 tablet by mouth once daily Clopidogrel (Plavix) 75 mg tablet Active 75 MG PO Daily March 09, 2024 1:00am Complies with drug therapy dicyclomine hydrochloride 20 mg oral tablet (20 sources) Anticholinergic Start: 07-27-2024 take 1 tablet [...] 2024 2:18pm ketoconazole 20 mg/ml medicated shampoo (3 sources) Azole Antifungal Start: 08-19-2024 Ketoconazole 2 % shampoo Active 1 APPLIC TOPICAL 3 Times a week 120 August 19, 2024 12:00am Complies with drug therapy Ketoconazole 2 % shampoo (1 source) Start: 08-19-2024 Ketoconazole 2 % shampoo Active 1 APPLIC TOPICAL 3 Times a week 120 August 19, 2024 12:00am multivit with minerals/lutein (MULTIVITAMIN 50 PLUS ORAL) (6 sources) Start: 06-20-2023 take 1 tablet by mouth once daily multivit with minerals/lutein (MULTIVITAMIN 50 PLUS ORAL) Take 1 tablet by mouth once daily. 06/20/2023 Active Multivitamin preparation (7 sources) Start: 06-20-2023 take 1 tablet by mouth once daily Multivitamin Active 1 TAB PO Daily June 20, 2023 12:00am Multivitamin tablet (6 sources) Start: 06-20-2023 take 1 tablet by mouth once daily Start: 06-20-2023 take 1 tablet by perez [...] 2023 11:00pm nitroglycerin 0.4 mg sublingual tablet (17 sources) Nitrate Vasodilator Start: 10-29-2023 Nitroglycerin 0.4 mg Tablet, Sublingual Active 0.4 MG SUBLINGUAL Q5M as needed for Chest Pain October 29, 2023 12:00am Complies with drug therapy predniSONE 10 mg oral tablet (1 source) Start: 11-04-2024 Prednisone 10 mg tablet Active 10 MG PO As Directed 02 27November 04, 2024 12:00am 1 tablet PO tid w/ food x 2 days then bid w/ food x 2 days then qd w/ food x 2 days Complies with drug therapy sulfamethoxazole 800 mg / trimethoprim 160 mg oral tablet (11 sources) Dihydrofolate Reductase Inhibitor Antibacterial, Sulfonamide Antimicrobial Start: 02-19-2023 take 1 tablet by mouth every twelve hours Sulfamethoxazole-T rimethoprim 800-160 MG 1 tablet Orally Twice a day for 5 days Jan, Active tiZANidine 2 mg oral tablet (1 source) Central alpha-2 Adrenergic Agonist Start: 11-04-2024 take 0.5-1 tablets by mouth once daily at bedtime as needed Tizanidine 2 mg tablet Active 0 PO Daily at bedtime as needed for muscle spasticity 01 01November 04, 2024 12:00am 1/2 - 1 tablet orally daily at bedtime PRN; Complies with drug therapy Completed/Discontinued Medications Medication Drug Class(es) Dates Sig [...] 1 tablet by mouth twice daily Losartan 50 mg tablet Discontinued 50 MG PO Twice daily 60 December 01, 2023 7:48pm December 12, 2023 1:32pm Start: 11-12-2023 End: 12-01-2023 take 1 tablet by mouth twice daily Losartan 25 mg tablet Discontinued 25 MG PO Twice daily 60 November 12, 2023 12:19pm December 01, 2023 7:48pm Start: 10-29-2023 End: 11-06-2024 take 1 tablet by mouth once daily in the morning Losartan 25 mg Tablet Discontinued 25 MG PO Every morning 30 October 29, 2023 12:00am November 12, 2023 [...] Apr, Active meloxicam 15 mg oral tablet (20 sources) Nonsteroidal Anti-inflammatory Drug Start: 05-17-2023 End: 06-20-2023 take 1 tablet by mouth once daily Meloxicam 15 mg tablet Discontinued 15 MG PO Daily May 17, 2023 1:00am June 20, 2023 2:35pm Start: 08-27-2022 take 1 tablet by perez th every twenty-four hours Meloxicam 15 MG 1 tablet Orally Once a day Aug, Active metoprolol tartrate 25 mg oral tablet (20 sources) beta-Adrenergic Fariha Start: 08-06-2024 End: 09-30-2024 Metoprolol Tartrate 25 mg tablet Discontinued 12.5 MG PO Twice daily August 06, 2024 1:25pm September 30, 2024 11:50am Start: 08-05-2024 End: 08-05-2025 take 0.5 tablet [...] 12, 2024 1:00am August 06, 2024 1:26pm omeprazole 40 mg delayed release oral capsule (20 sources) Proton Pump Inhibitor Start: 10-07-2023 End: 10-28-2023 take 1 capsule by mouth once daily before mealtime Omeprazole 40 mg capsule,delayed release(DR/EC) Discontinued 0 .ROUTE .COMPLEX October 07, 2023 12:27pm October 28, 2023 5:26am TAKE ONE CAPSULE BY MOUTH ONCE DAILY IN THE MORNING, 30 MINUTES BEFORE MEAL Start: 02-08-2023 End: 04-10-2024 take 1 capsule by mouth once daily as needed Omeprazole 40 mg capsule,delayed release(DR/EC) Discontinued 40 MG PO Daily as needed for acid reflux June 20, 2023 12:00am October 07, 2023 12:27pm ondansetron 4 mg disintegrating oral tablet (20 [...] 72 hr scopolamine 0.0139 mg/hr transdermal system (3 sources) Anticholinergic Start: 03-23-2024 End: 07-20-2024 Scopolamine Base [...] before colonoscopy ticagrelor 90 mg oral tablet (14 sources) Start: 10-29-2023 End: 11-06-2024 take 1 tablet by mouth twice daily Ticagrelor (Brilinta) 90 mg Tablet Discontinued 90 MG PO Twice daily 180 90 October 29, 2023 12:00am March 09, 2024 5:37pm Problems Active Problems Problem Classification Problem Date Documented Da te Episodic/Chronic Abdominal pain (20 sources) Left lower quadrant pain; Translations: [Left lower quadrant pain] Episodic Acute myocardial infarction (16 sources) Myocardial infarction; Translations: [ST elevation (STEMI) myocardial infarction involving other coronary artery of inferior wall] Onset: 10-27-2023 10-27-2023 Chronic Cancer of colon (20 sources) Personal history of other malignant neoplasm of large intestine; Translations: [Personal history of malignant neoplasm of large intestine] 05-21-2023 Episodic Complications of surgical procedures or medical care (11 sources) Drug therapy finding; Translations: [Unspecified adverse effect of drug or medicament, initial encounter] 11-05-2023 Episodic Coronary atherosclerosis and other heart disease (20 sources) Coronary arteriosclerosis; Translations: [Atherosclerotic heart disease of [place] coronary artery without angina pectoris] Onset: 11-07-2023 [...] Nausea Episodic Other aftercare (1 source) 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; Translations: [[facility] CURRENT DRUG THERAPY] Onset: 05-22-2022 Episodic Other [...] unspecified; Translations: [Diarrhea] Episodic Other gastrointestinal disorders (14 sources) Altered bowel function; Translations: [Change in bowel habit] 05-21-2023 Episodic Other gastrointestinal disorders (3 sources) Change in bowel habit; Translations: [Other symptoms involving digestive system] 05-21-2023 Episodic Other gastrointestinal disorders (12 sources) Change in stool caliber; Translations: [Other fecal abnormalities] 06-20-2023 Episodic Other gastrointestinal disorders (9 sources) Diarrhea; Translations: [Diarrhea, unspecified] 12-12-2023 Episodic Other gastrointestinal disorders (7 sources) Urgent desire for stool; Translations: [Fecal urgency] 12-12-2023 Episodic Other gastrointestinal disorders (2 sources) Fecal urgency; Translations: [Fecal urgency] 12-12-2023 Episodic Other inflammatory condition of skin (6 sources) Seborrheic dermatitis; Translations: [Seborrheic dermatitis, unspecified] 08-19-2024 Episodic Other lower respiratory disease (14 sources) Solitary pulmonary nodule; Translations: [Solitary pulmonary [...] lung field] Episodic Other lower respiratory disease (12 sources) Lung mass; Translations: [Other nonspecific abnormal finding of lung field] 07-24-2023 Episodic Other lower respiratory disease (6 sources) Imaging of lung abnormal ; Translations: [Other nonspecific abnormal finding of lung field] 03-12-2024 Episodic Other non-traumatic joint disorders (14 sources) Rotator cuff arthropathy of right shoulder; [...] Episodic Other nutritional; endocrine; and metabolic disorders (12 sources) Overweight in adulthood with body mass index of 25 or more but less than 30; Translations: [Body mass index (BMI) 26.0-26.9, adult] Onset: 11-07-2023 11-07-2023 Episodic Other nutritional; endocrine; and metabolic disorders (2 sources) Body mass index (BMI) 27.0-27.9, adult; Translations: [Body mass index (BMI) 27.0-27.9, adult] Onset: 11-03-2024 Episodic Other nutritional; endocrine; and metabolic disorders (2 sources) Body mass index (BMI) 26.0-26.9, adult; Translations: [Body mass index (BMI) 26.0-26.9, adult] Onset: 09-29-2024 Episodic Other screening for suspected conditions (not [...] digestive tract; Translations: [Other postprocedural status] Episodic Residual codes; unclassified (4 sources) Localized edema; Translations: [Localized edema] Onset: 11-03-2024 11-03-2024 Episodic Residual codes; unclassified (1 source) Localized edema; Translations: [Localized edema] Onset: 11-03-2024 Episodic Spondylosis; intervertebral disc disorders; other back problems (20 sources) Lumbar spondylosis; Translations: [Spondylosis without myelopathy or radiculopathy, lumbar region] Chronic Comment on above: MRI: C3-4 mod forami nal stenosis, C4-5 mod foraminal and canal stenosis, C5-6 severe right foraminal stenosis, C7-T1 moderate B/L foraminal narrowing - 10/2024 Spondylosis; intervertebral disc disorders; other back problems (8 sources) Neck pain; Translations: [Cervicalgia] 08-19-2024 Episodic [...] with esophagitis without hemorrhage] Malaise and fatigue (12 sources) Other fatigue; Translations: [Fatigue] Onset: 12-20-2023 Episodic Other lower respiratory disease (20 sources) Dyspnea; Translations: [Shortness of breath] Onset: 11-07-2023 11-05-2023 Episodic Other lower respiratory disease (3 sources) Shortness of breath; Translations: [Shortness of breath] Onset: 11-05-2023 11-12-2023 Episodic Residual codes; unclassified (6 sources) Family history of disorder; Translations: [Family history of ischemic heart disease and other diseases of the circulatory system] Onset: 11-07-2023 Resolved: 11-07-2023 11-07-2023 Episodic Screening and history of mental health and substance abuse codes (12 sources) Personal history of nicotine dependence; Translations: [Ex-smoker] Onset: 05-22-2022 11-07-2023 Episodic Syncope (8 sources) Near syncope; Translations: [Syncope and collapse] Onset: 12-20-2023 12-20-2023 Episodic Unclassified (20 sources) Acute bilateral low back pain without sciatica; Translations: [Acute bilateral low back pain without sciatica] Unclassified (1 source) Acute right-sided low back pain without sciatica M54.50 Unclassified (6 sources) Onset: 11-07-2023 Resolved: 11-03-2024 11-07-2023 Viral infection (20 sources) Disease caused by 2019-nCoV; Translations: [COVID-19] Results Test Name Value Interpretation Reference Range Facility Basophils Auto (Bld) [#/Vol] Ordered By: Laurie Mills on 10-03-2024 Basophils (Bld) [#/Vol] 0.0 10 3/uL 0.0-0.1 [facility] Basophils/100 WBC Auto (Bld) Ordered By: Laurie Mills on 10-03-2024 Basophils/100 WBC (Bld) 0.5 % 0.2-2.0 [facility] Eosinophils/100 WBC Auto (Bl d)Ordered By: Laurie Mills on 10-03-2024 Eosinophils/100 WBC (Bld) 1.1 % 0.9-7.0 [facility] Erythrocyte distribution wid th Auto (RBC) [Ratio]Ordered By: Laurie Lina on 10-03-2024 Erythrocyte distribution width (RBC) [Ratio] 13.3 % 11.0-15.0 [facility] Estimated glomerular filtrat ion rate (GFR) non- AmericanOrdered By: Laurie Lina on 10-03-2024 GFR/1.73 sq M.predicted among non-blacks MDRD (S/P/Bld) [Vol rate/Area] mL/min/{1.73_m2} >=60 mL/min/1.7 3m 2 [facility] Globulin Calc (S) [Mass/Vol] Ordered By: [facility] on 10-03-2024 Globulin (S) [Mass/Vol] 3.2 g/dL [facility] Hematocrit Auto (Bld) [Volum e fraction]Ordered By: [facility] on 10-03-2024 Hematocrit (Bld) [Volume fraction] 39.3 % 36.0-48.0 [facility] Hemoglobin [Mass/volume] in BloodOrdered By: Laurie Lina on 10-03-2024 Hemoglobin (Bld) [Mass/Vol] 13.3 g/dL 12.0-16.0 [facility] Laboratory - Chemistry and C hemistry - challengeOrdered By: Laurie Lina on 10-03-2024 Bilirubin Ql (U) Negative NEGATIVE [facility] Glucose (U) [Mass/Vol] Negative NEGATIVE [facility] Ketones Ql (U) Negative NEGATIVE [facility] pH (U) 6.0 [pH] 5.0-9.0 [facility] Specific gravity (U) [Rel density] <=1.005 Abnormal 1.005-1.02 5 [facility] Urobilinogen Qn (U) 0.2 {Mio'U}/dL 0.2-1.0 [facility] Albumin [Mass/Vol] 3.5 g/dL 3.4-5.0 [facility] ALP [Catalytic activity/Vol] 109 U/L 46-116 [facility] ALT [Catalytic activity/Vol] 30 U/L 14-59 [facility] AST [Catalytic activity/Vol] 15 U/L 15-37 [facility] Bilirubin [Mass/Vol] 0.4 mg/dL 0.2-1.0 [facility] Calcium [Mass/Vol] 9.5 mg/dL 8.5-10.1 [facility] Chloride [Moles/Vol] 104 mmol/L 98-107 [facility] CO2 [Moles/Vol] 26.7 mmol/L 21.0-32.0 [facility] Creatinine [Mass/Vol] 0.82 mg/dL 0.55-1.02 [facility] GFR/1.73 sq M.predicted MDRD (S/P/Bld) [Vol rate/Area] mL/min/{1.73_m2} >=60 mL/min/1.7 3m 2 [facility] Glucose [Mass/Vol] 112 mg/dL High 74-106 [facility] Potassium [Moles/Vol] 3.8 mmol/L 3.5-5.1 [facility] Protein [Mass/Vol] 6.7 g/dL 6.4-8.2 [facility] Sodium [Moles/Vol] 140 mmol/L 136-145 [facility] Urea nitrogen [Mass/Vol] 25.0 mg/dL High 7.0-18.0 [facility] Urea nitrogen/Creatinine [Mass ratio] 30.5 mg/mg [facility] Laboratory - Hematology and Cell countsOrdered By: Laurie Mills on 10-03-2024 Immature granulocytes/100 WBC (Bld) 0.2 % 0.0-0.5 [facility] Laboratory - Specimen inform ationOrdered By: Laurie Mills on 10-03-2024 Appearance (U) CLEAR CLEAR [facility] Color (U) LT. YELLOW YELLOW [facility] Laboratory - UrinalysisOrder ed By: Laurie Mills on 10-03-2024 Leukocyte esterase Test strip Ql (U) SMALL Abnormal NEGATIVE [facility] Mucus Ql (Urine sed) NONE SEEN NONE SEEN [facility] Nitrite Ql (U) Negative NEGATIVE [facility] Protein Ql (U) Negative NEG/TRACE [facility] Leukocytes [#/volume] correc kristi for nucleated erythrocytes in Blood by Automated counOrdered By: Laurie Mills on 10-03-2024 WBC corrected for nucl RBC Auto (Bld) [#/Vol] 6.1 10 3/uL 4.0-11.0 [facility] Lymphocytes Auto (Bld) [#/Vo l]Ordered By: Laurie Mills on 10-03-2024 Lymphocytes (Bld) [#/Vol] 1.4 10 3/uL 1.2-3.8 [facility] Lymphocytes/100 WBC Auto (Bl d)Ordered By: Laurie Mills on 10-03-2024 Lymphocytes/100 WBC (Bld) 22.6 % 20.5-60.0 [facility] MCH Auto (RBC) [Entitic mass ]Ordered By: Laurie Mills on 10-03-2024 MCH (RBC) [Entitic mass] 32.9 pg 26.7-34.0 [facility] MCHC Auto (RBC) [Mass/Vol]Or dered By: Laurie Mills on 10-03-2024 MCHC (RBC) [Mass/Vol] 33.8 g/dL 29.9-35.2 [facility] MCV Auto (RBC) [Entitic vol] Ordered By: Laurie Mills on 10-03-2024 MCV (RBC) [Entitic vol] 97.3 fL 81.0-99.0 [facility] Monocytes Auto (Bld) [#/Vol] Ordered By: Laurie Mills on 10-03-2024 Monocytes (Bld) [#/Vol] 0.7 10 3/uL 0.3-0.8 [facility] Monocytes/100 WBC Auto (Bld) Ordered By: Laurie Mills on 10-03-2024 Monocytes/100 WBC (Bld) 12.1 % High 1.7-12.0 [facility] Neutrophils Auto (Bld) [#/Vo l]Ordered By: Laurie Mills on 10-03-2024 Neutrophils (Bld) [#/Vol] 3.9 10 3/uL 1.4-6.5 [facility] Neutrophils/100 WBC Auto (Bl d)Ordered By: Laurie Mills on 10-03-2024 Neutrophils/100 WBC (Bld) 63.5 % 43.0-75.0 [facility] No Panel InformationOrdered By: Laurie Mills on 10-03-2024 Urine Bacteria SMALL #/HPF Abnormal NONE SEEN [facility] Urine Culture Reflexed YES-[facility] Urine Microscopic Review YES [facility] Urine Occult Blood TRACE-L NEGATIVE [facility] Urine Other Casts NONE SEEN #/LPF NONE [facility]EN [facility] Urine Other Crystals None Seen #/HPF None Seen [facility] Urine RBC 2-5 #/HPF Abnormal 0-2 [facility] Urine Squamous Epithelial Cells RARE #/LPF NONE/RARE [facility] Urine WBC 5-10 #/HPF Abnormal NONE SEEN [facility] Eosinophils # (Auto) 0.1 10 3/uL 0.0-0.7 [facility] Immature Granulocyte # (Auto) 0.01 10 3/uL 0.00-0.03 [facility] Troponin I High Sensitivity 5.7 pg/mL 4.0-51.3 [facility] Comment on above: CUT-OFF POINTS HAVE BEEN ESTABLISHED BASED ON THE FOURTHUNIVERSAL DEFINITION OF MYOCARDIAL INFARCTION. THE UPPERREFERENCE LIMIT (URL) OF TROPONIN, DEFINED THE 99THPERCENTILE OF cTnI DISTRIBUTION IN A REFERENCE POPULATION,HAS BEEN CONFIRMED THE DECISION THRESHOLD FOR MIDIAGNOSIS.99TH PERCENTILE = 51.4 PG/MLNOTE: HIGH-SENSITIVITY TROPONIN ASSAY IS NOT INTENDED TO BEUSED IN ISOLATION BUT SHOULD BE INTERPRETED IN CONJUNCTIONWITH OTHER DIAGNOSTIC AND CLINICAL INFORMATION. Platelet mean volume Auto (B ld) [Entitic vol]Ordered By: Laurie Mills on 10-03-2024 Platelet mean volume (Bld) [Entitic vol] 9.6 fL 9.5-13.5 [facility] Platelets Auto (Bld) [#/Vol] Ordered By: Lauire Mills on 10-03-2024 Platelets (Bld) [#/Vol] 250 10 3/uL 150-450 [facility] RBC Auto (Bld) [#/Vol]Ordere d By: Laurie Mills on 10-03-2024 RBC (Bld) [#/Vol] 4.04 10 6/uL Low 4.20-5.40 [facility] Serum or plasma albumin/glob ulin mass ratioOrdered By: Laurie Lina on 10-03-2024 Albumin/Globulin [Mass ratio] 1.1 {ratio} [facility] Serum or plasma anion gap de terminationOrdered By: Laurie Lina on 10-03-2024 Anion gap [Moles/Vol] 13.1 mmol/L [facility] Urine Cultureon 10-03-2024 Bacteria identified Cx Nom (U) ORGANISM: Escherichia coli (MDRO) (O:ESCCOLMDRO) [place] Count >100,000 * This is a corrected result. * A prior result that was reported as final has been changed. Added MDRO to report. Aerobic JOSE Charge ([id number]) SUSCEPTIBILITY ORGANISM: O:ESCCOLMDRO ANTIBIOTIC INTERPRETATION JOSE Amikacin S <16 Amoxacillin/K Clavulanate S <8 Ampicillin R >16 Ampicillin/Sulbactam I 1616/8 Aztreonam S <4 Cefazolin S <2 Cefepime S <2 Ceftazidime S <1 Ceftazidime/Avibactam S <4 Ceftolozane/Tazobactam S <2 Ceftriaxone S <1 Cefuroxime S <4 Ciprofloxacin S <0.25 Ertapenem S <0.5 Gentamicin R >8 Levofloxacin S <0.5 Meropenem S <1 Meropenem/Vaborbactam S <2 Nitrofurantoin S <32 Piperacillin/Tazobactam S <8 Tetracycline R >8 Tigecycline S <2 Tobramycin S 4 Trimethoprim/Sulfamethoxaz ole R >2 S = SUSCEPTIBLE I = INTERMEDIATE R = RESISTANT BLANK = DATA NOT AVAILABLE, OR DRUG NOT ADVISABLE OR TESTED R* = RESISTANCE DUE TO EXTENDED SPECTRUM BETA-LACTAMASES ESBL = EXTENDED SPECTRUM BETA-LACTAMASE TFG = THYMIDINE-DEPENDENT STRAIN DOMENICA = BETA-LACTAMASE POSITIVE IB = INDUCIBLE BETA-LACTAMASE. APPEARS IN PLACE OF 'S' WITH SPECIES KNOWN TO POSSESS INDUCIBLE BETA-LACTAMASES. POTENTIALLY THEY MAY BECOME RESISTANT TO ALL B-LACTAM DRUGS. PERFORMED BY: [facility] [address] [id number] PATHOLOGIST SKIVER [employer] CANDELARIA JALLOH M.D. Normal [facility] Comment on above: Performed By: #### C UU #### [address] Urine cultureOrdered By: Anisa Mills on 10-03-2024 Bacteria identified Cx Nom (U) Escherichia coli (MDRO) Abnormal [facility] Basophils Auto (Bld) [#/Vol] on 08-05-2024 Basophils (Bld) [#/Vol] Automated basophil count 0.0-0.1 [facility] Basophils (Bld) [#/Vol] 0.0 10 3/uL 0.0-0.1 [facility] Basophils/100 WBC Auto (Bld) on 08-05-2024 Basophils/100 WBC (Bld) Automated basophil % 0.2-2.0 [facility] Basophils/100 WBC (Bld) 0.6 % 0.2-2.0 [facility] Eosinophils/100 WBC Auto (Bl d)on 08-05-2024 Eosinophils/100 WBC (Bld) Automated eosinophil % 0.9-7.0 [facility] Eosinophils/100 WBC (Bld) 0.9 % 0.9-7.0 [facility] Erythrocyte distribution wid th Auto (RBC) [Ratio]on 08-05-2024 Erythrocyte distribution width (RBC) [Ratio] Erythrocyte distribution width [Ratio] by Automated count 11.0-15.0 [facility] Erythrocyte distribution width (RBC) [Ratio] 13.9 % 11.0-15.0 [facility] Estimated glomerular filtrat ion rate (GFR) non- Americanon 08-05-2024 GFR/1.73 sq M.predicted among non-blacks MDRD (S/P/Bld) [Vol rate/Area] Estimated glomerular filtration rate (GFR) non- Low >=60 mL/min/1.7 3m 2 [facility] GFR/1.73 sq M.predicted among non-blacks MDRD (S/P/Bld) [Vol rate/Area] 58 mL/min/{1.73_m2} Low >=60 mL/min/1.[address] [place] [address] Hematocrit Auto (Bld) [Volum e fraction]on 08-05-2024 Hematocrit (Bld) [Volume fraction] Hematocrit [Volume Fraction] of Blood by Automated count 36.0-48.0 [facility] Hematocrit (Bld) [Volume fraction] 39.6 % 36.0-48.0 [facility] Hemoglobin [Mass/volume] in Bloodon 08-05-2024 Hemoglobin (Bld) [Mass/Vol] Hemoglobin [Mass/volume] in Blood 12.0-16.0 [facility] Hemoglobin (Bld) [Mass/Vol] 13.3 g/dL 12.0-16.0 [facility] Laboratory - Chemistry and C hemistry - challengeon 08-05-2024 Calcium [Mass/Vol] 9.7 mg/dL 8.5-10.1 [facility] Chloride [Moles/Vol] 107 mmol/L 98-107 [facility] CO2 [Moles/Vol] 24.2 mmol/L 21.0-32.0 [facility] Creatinine [Mass/Vol] 0.92 mg/dL 0.55-1.02 [facility] GFR/1.73 sq M.predicted MDRD (S/P/Bld) [Vol rate/Area] mL/min/{1.73_m2} >=60 mL/min/1.[address] [place] [address] Glucose [Mass/Vol] 86 mg/dL 74-106 [facility] Potassium [Moles/Vol] 3.6 mmol/L 3.5-5.1 [facility] Sodium [Moles/Vol] 140 mmol/L 136-145 [facility] TSH Qn 1.563 m[IU]/L 0.358-3.74 0 [facility] Urea nitrogen [Mass/Vol] 15.0 mg/dL 7.0-18.0 [facility] Urea nitrogen/Creatinine [Mass ratio] 16.3 mg/mg [facility] Laboratory - Hematology and Cell countson 08-05-2024 Immature granulocytes/100 WBC (Bld) 0.2 % 0.0-0.5 [facility] Leukocytes [#/volume] correc kristi for nucleated erythrocytes in Blood by Automated counon 08-05-2024 WBC corrected for nucl RBC Auto (Bld) [#/Vol] Leukocytes [#/volume] corrected for nucleated erythrocytes in Blood by Automated coun 4.0-11.0 [facility] WBC corrected for nucl RBC Auto (Bld) [#/Vol] 6.3 10 3/uL 4.0-11.0 [facility] Lymphocytes Auto (Bld) [#/Vo l]on 08-05-2024 Lymphocytes (Bld) [#/Vol] Lymphocytes [#/volume] in Blood by Automated count 1.2-3.8 [facility] Lymphocytes (Bld) [#/Vol] 1.8 10 3/uL 1.2-3.8 [facility] Lymphocytes/100 WBC Auto (Bl d)on 08-05-2024 Lymphocytes/100 WBC (Bld) Lymphocytes/100 leukocytes in Blood by Automated count 20.5-60.0 [facility] Lymphocytes/100 WBC (Bld) 28.0 % 20.5-60.0 [facility] MCH Auto (RBC) [Entitic mass ]on 08-05-2024 MCH (RBC) [Entitic mass] MCH [Entitic mass] by Automated count 26.7-34.0 [facility] MCH (RBC) [Entitic mass] 32.5 pg 26.7-34.0 [facility] MCHC Auto (RBC) [Mass/Vol]on 08-05-2024 MCHC (RBC) [Mass/Vol] MCHC [Mass/volume] by Automated count 29.9-35.2 [facility] MCHC (RBC) [Mass/Vol] 33.6 g/dL 29.9-35.2 [facility] MCV Auto (RBC) [Entitic vol] on 08-05-2024 MCV (RBC) [Entitic vol] MCV [Entitic volume] by Automated count 81.0-99.0 [facility] MCV (RBC) [Entitic vol] 96.8 fL 81.0-99.0 [facility] Monocytes Auto (Bld) [#/Vol] on 08-05-2024 Monocytes (Bld) [#/Vol] Automated blood monocyte count 0.3-0.8 [facility] Monocytes (Bld) [#/Vol] 0.6 10 3/uL 0.3-0.8 [facility] Monocytes/100 WBC Auto (Bld) on 08-05-2024 Monocytes/100 WBC (Bld) Automated monocyte % 1.7-12.0 [facility] Monocytes/100 WBC (Bld) 9.7 % 1.7-12.0 [facility] Neutrophils Auto (Bld) [#/Vo l]on 08-05-2024 Neutrophils (Bld) [#/Vol] Neutrophils [#/volume] in Blood by Automated count 1.4-6.5 [facility] Neutrophils (Bld) [#/Vol] 3.8 10 3/uL 1.4-6.5 [facility] Neutrophils/100 WBC Auto (Bl d)on 08-05-2024 Neutrophils/100 WBC (Bld) Automated neutrophil % 43.0-75.0 [facility] Neutrophils/100 WBC (Bld) 60.6 % 43.0-75.0 [facility] No Panel Informationon 08-05 Eosinophils # (Auto) 0.1 10 3/uL 0.0-0.7 [facility] Immature Granulocyte # (Auto) 0.01 10 3/uL 0.00-0.03 [facility] Platelet mean volume Auto (B ld) [Entitic vol]on 08-05-2024 Platelet mean volume (Bld) [Entitic vol] Platelet mean volume [Entitic volume] in Blood by Automated count 9.5-13.5 [facility] Platelet mean volume (Bld) [Entitic vol] 9.8 fL 9.5-13.5 [facility] Platelets Auto (Bld) [#/Vol] on 08-05-2024 Platelets (Bld) [#/Vol] Platelets [#/volume] in Blood by Automated count 150-450 [facility] Platelets (Bld) [#/Vol] 265 10 3/uL 150-450 [facility] RBC Auto (Bld) [#/Vol]on RBC (Bld) [#/Vol] Erythrocytes [#/volu me] in Blood by Automated count Low 4.20-5.40 [facility] RBC (Bld) [#/Vol] 4.09 10 6/uL Low 4.20-5.40 [facility] Serum or plasma anion gap de terminationon 08-05-2024 Anion gap [Moles/Vol] Serum or plasma an ion gap determination [facility] Anion gap [Moles/Vol] 12.4 mmol/L [facility] Basophils Auto (Bld) [#/Vol] on 04-28-2024 Basophils (Bld) [#/Vol] Automated basophil count 0.0-0.1 [facility] Basophils/100 WBC Auto (Bld) on 04-28-2024 Basophils/100 WBC (Bld) Automated basophil % 0.2-2.0 [facility] Eosinophils/100 WBC Auto (Bl d)on 04-28-2024 Eosinophils/100 WBC (Bld) Automated eosinophil % Low 0.9-7.0 [facility] Erythrocyte distribution wid th Auto (RBC) [Ratio]on 04-28-2024 Erythrocyte distribution width (RBC) [Ratio] Erythrocyte distribution width [Ratio] by Automated count 11.0-15.0 [facility] Hematocrit Auto (Bld) [Volum e fraction]on 04-28-2024 Hematocrit (Bld) [Volume fraction] Hematocrit [Volume Fraction] of Blood by Automated count 36.0-48.0 [facility] Hemoglobin [Mass/volume] in Bloodon 04-28-2024 Hemoglobin (Bld) [Mass/Vol] Hemoglobin [Mass/volume] in Blood 12.0-16.0 [facility] Laboratory - Chemistry and C hemistry - challengeon 04-28-2024 Cobalamin (Vitamin B12) [Mass/Vol] 811 pg/mL 232-1245 [facility] Comment on above: Performed at: [facility] [address]aden [address] [id number] Director: Aime Fabian PhD, Phone: [phone] TSH Qn 2.025 m[IU]/L 0.358-3.74 0 [facility] Laboratory - Hematology and Cell countson 04-28-2024 Immature granulocytes/100 WBC (Bld) 0.1 % 0.0-0.5 [facility] Leukocytes [#/volume] correc kristi for nucleated erythrocytes in Blood by Automated counon 04-28-2024 WBC corrected for nucl RBC Auto (Bld) [#/Vol] Leukocytes [#/volume] corrected for nucleated erythrocytes in Blood by Automated coun 4.0-11.0 [facility] Lymphocytes Auto (Bld) [#/Vo l]on 04-28-2024 Lymphocytes (Bld) [#/Vol] Lymphocytes [#/volume] in Blood by Automated count 1.2-3.8 [facility] Lymphocytes/100 WBC Auto (Bl d)on 04-28-2024 Lymphocytes/100 WBC (Bld) Lymphocytes/100 leukocytes in Blood by Automated count 20.5-60.0 [facility] MCH Auto (RBC) [Entitic mass ]on 04-28-2024 MCH (RBC) [Entitic mass] MCH [Entitic mass] by Automated count 26.7-34.0 [facility] MCHC Auto (RBC) [Mass/Vol]on 04-28-2024 MCHC (RBC) [Mass/Vol] MCHC [Mass/volume] by Automated count 29.9-35.2 [facility] MCV Auto (RBC) [Entitic vol] on 04-28-2024 MCV (RBC) [Entitic vol] MCV [Entitic volume] by Automated count 81.0-99.0 [facility] Monocytes Auto (Bld) [#/Vol] on 04-28-2024 Monocytes (Bld) [#/Vol] Automated blood monocyte count 0.3-0.8 [facility] Monocytes/100 WBC Auto (Bld) on 04-28-2024 Monocytes/100 WBC (Bld) Automated monocyte % 1.7-12.0 [facility] Neutrophils Auto (Bld) [#/Vo l]on 04-28-2024 Neutrophils (Bld) [#/Vol] Neutrophils [#/volume] in Blood by Automated count 1.4-6.5 [facility] Neutrophils/100 WBC Auto (Bl d)on 04-28-2024 Neutrophils/100 WBC (Bld) Automated neutrophil % 43.0-75.0 [facility] No Panel Informationon 04-28 Eosinophils # (Auto) 0.1 10 3/uL 0.0-0.7 [facility] Immature Granulocyte # (Auto) 0.01 10 3/uL 0.00-0.03 [facility] Platelet mean volume Auto (B ld) [Entitic vol]on 04-28-2024 Platelet mean volume (Bld) [Entitic vol] Platelet mean volume [Entitic volume] in Blood by Automated count 9.5-13.5 [facility] Platelets Auto (Bld) [#/Vol] on 04-28-2024 Platelets (Bld) [#/Vol] Platelets [#/volume] in Blood by Automated count 150-450 [facility] RBC Auto (Bld) [#/Vol]on RBC (Bld) [#/Vol] Erythrocytes [#/volu me] in Blood by Automated count Low 4.20-5.40 [facility] Serum or plasma methylmalona te measurement (moles/volume)on 04-28-2024 Methylmalonate [Moles/Vol] Serum or plasma methylmalonate measurement (moles/volume) 0-378 [facility] Comment on above: This test was develo ped and its performance characteristicsdetermined by [employer]. It has not been cleared orapproved by the Food and Drug Administration.Performed at: [address] [id number] Director: Guanaco Russell MD, Phone: [phone] Basophils Auto (Bld) [#/Vol] on 03-12-2024 Basophils (Bld) [#/Vol] Automated basophil count 0.0-0.1 [facility] Basophils/100 WBC Auto (Bld) on 03-12-2024 Basophils/100 WBC (Bld) Automated basophil % 0.2-2.0 [facility] Cholesterol in LDL Calc [Mas s/Vol]on 03-12-2024 Cholesterol in LDL [Mass/Vol] Cholesterol in LDL [Mass/volume] in Serum or Plasma by calculation [facility] Comment on above: <100 mg/dl [id number] 0-129 mg/dl NEAR OR ABOVE [id number] mg/dl BORDERLINE [id number] mg/dl HIGH>190 mg/dl VERY HIGH Cholesterol in VLDL Calc [Ma ss/Vol]on 03-12-2024 Cholesterol in VLDL [Mass/Vol] Cholesterol in VLDL [Mass/volume] in Serum or Plasma by calculation [facility] Eosinophils/100 WBC Auto (Bl d)on 03-12-2024 Eosinophils/100 WBC (Bld) Automated eosinophil % Low 0.9-7.0 [facility] Erythrocyte distribution wid th Auto (RBC) [Ratio]on 03-12-2024 Erythrocyte distribution width (RBC) [Ratio] Erythrocyte distribution width [Ratio] by Automated count 11.0-15.0 [facility] Estimated glomerular filtrat ion rate (GFR) non- Americanon 03-12-2024 GFR/1.73 sq M.predicted among non-blacks MDRD (S/P/Bld) [Vol rate/Area] Estimated glomerular filtration rate (GFR) non- Low >=60 mL/min/1.7 3m 2 [facility] Globulin Calc (S) [Mass/Vol] on 03-12-2024 Globulin (S) [Mass/Vol] Serum globulin measurement by calculation (mass/volume) [facility] Hematocrit Auto (Bld) [Volum e fraction]on 03-12-2024 Hematocrit (Bld) [Volume fraction] Hematocrit [Volume Fraction] of Blood by Automated count 36.0-48.0 [facility] Hemoglobin [Mass/volume] in Bloodon 03-12-2024 Hemoglobin (Bld) [Mass/Vol] Hemoglobin [Mass/volume] in Blood 12.0-16.0 [facility] IgA [Mass/volume] in Serum o r Plasmaon 03-12-2024 IgA [Mass/Vol] IgA [Mass/volume] in Serum or Plasma 64-422 [facility] Comment on above: Performed at: [address] [id number] Director: Aime Fabian PhD, Phone: [phone] Laboratory - Chemistry and C hemistry - challengeon 03-12-2024 Albumin [Mass/Vol] 3.5 g/dL 3.4-5.0 [facility] ALP [Catalytic activity/Vol] 123 U/L High 46-116 [facility] ALT [Catalytic activity/Vol] 32 U/L 14-59 [facility] AST [Catalytic activity/Vol] 17 U/L 15-37 [facility] Bilirubin [Mass/Vol] 0.6 mg/dL 0.2-1.0 [facility] Calcium [Mass/Vol] 9.1 mg/dL 8.5-10.1 [facility] Chloride [Moles/Vol] 107 mmol/L 98-107 [facility] Cholesterol [Mass/Vol] 199 mg/dL <=200 [facility] Cholesterol in HDL [Mass/Vol] 128 mg/dL High 40-60 [facility] Comment on above: > or =60 mg/dl - LOW CARDIOVASCULAR RISK<40 mg/dl - HIGH CARDIOVASCULAR RISK CO2 [Moles/Vol] 25.5 mmol/L 21.0-32.0 [facility] Creatinine [Mass/Vol] 0.97 mg/dL 0.55-1.02 [facility] GFR/1.73 sq M.predicted MDRD (S/P/Bld) [Vol rate/Area] mL/min/{1.73_m2} >=60 mL/min/1.7 3m 2 [facility] Glucose [Mass/Vol] 91 mg/dL 74-106 [facility] Potassium [Moles/Vol] 3.7 mmol/L 3.5-5.1 [facility] Protein [Mass/Vol] 6.8 g/dL 6.4-8.2 [facility] Sodium [Moles/Vol] 143 mmol/L 136-145 [facility] Triglyceride [Mass/Vol] 65 mg/dL <=150 [facility] Urea nitrogen [Mass/Vol] 15.0 mg/dL 7.0-18.0 [facility] Urea nitrogen/Creatinine [Mass ratio] 15.5 mg/mg [facility] Laboratory - Hematology and Cell countson 03-12-2024 Immature granulocytes/100 WBC (Bld) 0.1 % 0.0-0.5 [facility] Leukocytes [#/volume] correc kristi for nucleated erythrocytes in Blood by Automated counon 03-12-2024 WBC corrected for nucl RBC Auto (Bld) [#/Vol] Leukocytes [#/volume] corrected for nucleated erythrocytes in Blood by Automated coun 4.0-11.0 [facility] Lymphocytes Auto (Bld) [#/Vo l]on 03-12-2024 Lymphocytes (Bld) [#/Vol] Lymphocytes [#/volume] in Blood by Automated count 1.2-3.8 [facility] Lymphocytes/100 WBC Auto (Bl d)on 03-12-2024 Lymphocytes/100 WBC (Bld) Lymphocytes/100 leukocytes in Blood by Automated count 20.5-60.0 [facility] MCH Auto (RBC) [Entitic mass ]on 03-12-2024 MCH (RBC) [Entitic mass] MCH [Entitic mass] by Automated count 26.7-34.0 [facility] MCHC Auto (RBC) [Mass/Vol]on 03-12-2024 MCHC (RBC) [Mass/Vol] MCHC [Mass/volume] by Automated count 29.9-35.2 [facility] MCV Auto (RBC) [Entitic vol] on 03-12-2024 MCV (RBC) [Entitic vol] MCV [Entitic volume] by Automated count 81.0-99.0 [facility] Monocytes Auto (Bld) [#/Vol] on 03-12-2024 Monocytes (Bld) [#/Vol] Automated blood monocyte count 0.3-0.8 [facility] Monocytes/100 WBC Auto (Bld) on 03-12-2024 Monocytes/100 WBC (Bld) Automated monocyte % 1.7-12.0 [facility] Neutrophils Auto (Bld) [#/Vo l]on 03-12-2024 Neutrophils (Bld) [#/Vol] Neutrophils [#/volume] in Blood by Automated count 1.4-6.5 [facility] Neutrophils/100 WBC Auto (Bl d)on 03-12-2024 Neutrophils/100 WBC (Bld) Automated neutrophil % 43.0-75.0 [facility] No Panel Informationon 03-12 Endomysial IgA Antibody Negative Negative [facility] Eosinophils # (Auto) 0.1 10 3/uL 0.0-0.7 [facility] Immature Granulocyte # (Auto) 0.01 10 3/uL 0.00-0.03 [facility] Platelet mean volume Auto (B ld) [Entitic vol]on 03-12-2024 Platelet mean volume (Bld) [Entitic vol] Platelet mean volume [Entitic volume] in Blood by Automated count 9.5-13.5 [facility] Platelets Auto (Bld) [#/Vol] on 03-12-2024 Platelets (Bld) [#/Vol] Platelets [#/volume] in Blood by Automated count 150-450 [facility] RBC Auto (Bld) [#/Vol]on RBC (Bld) [#/Vol] Erythrocytes [#/volu me] in Blood by Automated count Low 4.20-5.40 [facility] Serum gliadin peptide IgA an tibody assay (units/volume)on 03-12-2024 Gliadin peptide IgA Qn (S) Serum gliadin peptide IgA antibody assay (units/volume) [facility] Comment on above: Negative 0 - Weak Positive 20 - 30 Moderate to Strong Positive >30 Serum gliadin peptide IgG an tibody assay (units/volume)on 03-12-2024 Gliadin peptide IgG Qn (S) Serum gliadin peptide IgG antibody assay (units/volume) [facility] Comment on above: Negative 0 - 19 Weak Positive 20 - 30 Moderate to Strong Positive >30 Serum or plasma albumin/glob ulin mass ratioon 03-12-2024 Albumin/Globulin [Mass ratio] Serum or plasma albumin/globulin mass ratio [facility] Serum or plasma anion gap de terminationon 03-12-2024 Anion gap [Moles/Vol] Serum or plasma an ion gap determination [facility] Serum or plasma total choles terol/high density lipoprotein (HDL) cholesterol mass henry 03-12-2024 Cholesterol.total/Cho lesterol in HDL [Mass ratio] Serum or plasma total cholesterol/high density lipoprotein (HDL) cholesterol mass rat [facility] Comment on above: 3.3 - 4.4 LOW RISK4. 4 - 7.1 AVERAGE RISK7.1 - 11.0 MODERATE RISK>11.0 HIGH RISK Serum tissue transglutaminas e (tTG) IgA antibody assay (units/volume)on 03-12-2024 tTG IgA Qn (S) Serum tissue transglutaminase (tTG) IgA antibody assay (units/volume) 0-3 [facility] Comment on above: Negative 0 - 3 [...] (tTG) IgG antibody assay (units/volume) Abnormal 0-5 [facility] Comment on above: Negative 0 - 5 Weak Positive 6 - 9 Positive >9 ECG 12 Leadon 12-20-2023 Normal sinus rhythm, leftward axis, low voltage, nonspecific ST-T wave abnormality, abnormal ECG [facility] Work Phone: Activated partial thrombopla stin time (aPTT) in platelet poor plasma by coagulation aOrdered By: PROVIDER TEMP on 11-05-2023 aPTT Coag (PPP) [Time] 30.2 s 25.1-36.5 [facility] Comment on above: A hematocrit value g reater than 55% may lead to inaccurate results in coagulation testing. Patients having hematocrit values >55% require a special collection tube for coagulation studies. Please contact the laboratory at [phone] for redraw instructions. Alanine aminotransferase [En zymatic activity/volume] in Serum or PlasmaOrdered By: PROVIDER TEMP on 11-05-2023 ALT [Catalytic activity/Vol] 27 U/L Normal 7-52 [facility] Comment on above: Performed By: #### H S TROP, CBC, PT, BNP, CMP, CK, PTT #### [facility] [address] [place] [address] Albumin [Mass/volume] in Ser um or Plasma by Bromocresol green (BCG) dye binding methoOrdered By: PROVIDER TEMP on 11-05-2023 Albumin BCG dye [Mass/Vol] 4.1 g/dL 3.5-5.7 [facility] Alkaline phosphatase [Enzyma tic activity/volume] in Serum or PlasmaOrdered By: PROVIDER TEMP on 11-05-2023 ALP [Catalytic activity/Vol] 99 U/L Normal 34-104 [facility] Comment on above: Performed By: #### H S TROP, CBC, PT, BNP, CMP, CK, PTT #### [facility] [address] [place] [address] Aspartate aminotransferase [ Enzymatic activity/volume] in Serum or PlasmaOrdered By: PROVIDER TEMP on 11-05-2023 AST [Catalytic activity/Vol] 19 U/L Normal 13-39 [facility] Comment on above: Performed By: #### H S TROP, CBC, PT, BNP, CMP, CK, PTT #### [facility] [address] [place] [address] Automated basophil %Ordered By: PROVIDER TEMP on 11-05-2023 Basophils/100 WBC (Bld) 0.8 % Normal . [facility] Comment on above: Performed By: #### H S TROP, CBC, PT, BNP, CMP, CK, PTT #### [facility] [address] [place] [address] Automated basophil countOrde red By: PROVIDER TEMP on 11-05-2023 Basophils (Bld) [#/Vol] 0.1 10*3/uL Normal 0.0-0.2 [facility] Comment on above: Result Comment: PERF ORMED BY: [place] [address] PATHOLOGIST SKIVER HAND KAYLIN ARDON M.D. Performed By: #### H S TROP, CBC, PT, BNP, CMP, CK, PTT #### [facility] [address] [place] [address] Automated blood monocyte cou ntOrdered By: PROVIDER TEMP on 11-05-2023 Monocytes (Bld) [#/Vol] 0.6 10*3/uL Normal 0.0-0.8 [facility] Comment on above: Performed By: #### H S TROP, CBC, PT, BNP, CMP, CK, PTT #### [facility] [address] Automated eosinophil %Ordere d By: PROVIDER TEMP on 11-05-2023 Eosinophils/100 WBC (Bld) 0.8 % Normal . [facility] Comment on above: Performed By: #### H S TROP, CBC, PT, BNP, CMP, CK, PTT #### [facility] [address] Automated eosinophil countOr dered By: PROVIDER TEMP on 11-05-2023 Eosinophils (Bld) [#/Vol] 0.1 10*3/uL Normal 0.0-0.45 [facility] Comment on above: Performed By: #### H S TROP, CBC, PT, BNP, CMP, CK, PTT #### [address] Automated monocyte %Ordered By: PROVIDER TEMP on 11-05-2023 Monocytes/100 WBC (Bld) 9.6 % Normal . [facility] Comment on above: Performed By: #### H S TROP, CBC, PT, BNP, CMP, CK, PTT #### [address] Automated neutrophil %Ordere d By: PROVIDER TEMP on 11-05-2023 Neutrophils/100 WBC (Bld) 73.8 % Normal . [facility] Comment on above: Performed By: #### H S TROP, CBC, PT, BNP, CMP, CK, PTT #### [facility] [address] [place] [address] BNP ser/plasOrdered By: PROV IDER TEMP on 11-05-2023 Natriuretic peptide B (Bld) [Mass/Vol] 293.0 pg/mL High 5-100 [facility] Comment on above: Result Comment: PERF ORMED BY: [place] [address] PATHOLOGIST SKIVER HAND KAYLIN ARDON M.D. Performed By: #### H S TROP, CBC, PT, BNP, CMP, CK, PTT #### [facility] [address] Bilirubin.total [Mass/volume ] in Serum or PlasmaOrdered By: PROVIDER TEMP on 11-05-2023 Bilirubin [Mass/Vol] 0.5 mg/dL Normal 0.3-1.0 [facility] Comment on above: Performed By: #### H S TROP, CBC, PT, BNP, CMP, CK, PTT #### [facility] [address] angio chest PE protocolon 11-05-2023 CT angio chest PE protocol [facility] [address] [place] [address] CT Scan Report Signed Patient: Genny Barboza MR#: [id number] : 1940 Acct:[id number] Age/Sex: 83 / F ADM Date: 11/05/23 Loc: ER Room: Type: [facility] ER Attending Dr: Copies to: Rona Andres [...] Endy Crowley M.D.11/05/2023 10:53 AM Dictation Location: [place] [address] Transcribed By: [facility] 11/05/23 1053 Dictated By: Endy Crowley II, MD 11/05/23 1045 Signed By: 11/05/23 1053 Normal [facility] Calcium [Mass/volume] in Ser um or PlasmaOrdered By: PROVIDER TEMP on 11-05-2023 Calcium [Mass/Vol] 9.6 mg/dL Normal 8.6-10.3 [facility] Comment on above: Performed By: #### H S TROP, CBC, PT, BNP, CMP, CK, PTT #### [facility] [address] [place] [address] [place] Carbon dioxide, total [Moles /volume] in Serum or PlasmaOrdered By: PROVIDER TEMP on 11-05-2023 CO2 [Moles/Vol] 22.2 mmol/L Normal 21.0-31.0 [facility] Comment on above: Performed By: #### H S TROP, CBC, PT, BNP, CMP, CK, PTT #### [facility] [address] [place] [id number] [place] Chloride [Moles/volume] in S carolyne or PlasmaOrdered By: PROVIDER TEMP on 11-05-2023 Chloride [Moles/Vol] 109 mmol/L High 98-107 [facility] Comment on above: Performed By: #### H S TROP, CBC, PT, BNP, CMP, CK, PTT #### [address] Complete Blood Count Auto Di ffon 11-05-2023 Mean Corpuscular HGB Conc 34.2 g/dL Normal 32.0-35.0 [facility] Comment on above: Performed By: #### H S TROP, CBC, PT, BNP, CMP, CK, PTT #### [address] Monocytes/100 WBC (Bld) 20.41 % High 0.00-20.00 [facility] Comment on above: Result Comment: For adults in ED, MDW > 20.0 may be associated with a higher risk of sepsis during the first 12 hrs of hospital admission Performed By: #### H S TROP, CBC, PT, BNP, CMP, CK, PTT #### [address] NRBC% 0.1 /100{WBC} Normal 0-0.5 [facility] Comment on above: Performed By: #### H S TROP, CBC, PT, BNP, CMP, CK, PTT #### [address] Comprehensive Metabolic Pane marianela 11-05-2023 Albumin [Mass/Vol] 4.1 g/dL Normal 3.5-5.7 [facility] Comment on above: Performed By: #### H S TROP, CBC, PT, BNP, CMP, CK, PTT #### [address] Creatinine Clr Calc Pharmacy 42.53 Normal [facility] Comment on above: Result Comment: PERF ORMED BY: [place] [address] PATHOLOGIST SKIVER HAND KAYLIN ARDON M.D. Performed By: #### H S TROP, CBC, PT, BNP, CMP, CK, PTT #### [facility] [address] [place] [id number] [facility] GFR/1.73 sq M.predicted MDRD (S/P/Bld) [Vol rate/Area] mL/min/{1.73_m2} Normal [facility] Comment on above: Performed By: #### H S TROP, CBC, PT, BNP, CMP, CK, PTT #### [facility] [address] [place] [id number] [place] Creatine kinase [Enzymatic a ctivity/volume] in Serum or PlasmaOrdered By: PROVIDER TEMP on 11-05-2023 CK [Catalytic activity/Vol] 66 U/L Normal 30-223 [facility] Comment on above: Performed By: #### H S TROP, CBC, PT, BNP, CMP, CK, PTT #### [facility] [address] [place] [id number] [place] Creatinine [Mass/volume] in Serum or PlasmaOrdered By: PROVIDER TEMP on 11-05-2023 Creatinine [Mass/Vol] 0.87 mg/dL Normal 0.60-1.20 [facility] Comment on above: Performed By: #### H S TROP, CBC, PT, BNP, CMP, CK, PTT #### [facility] [address] [id number] [facility] ECG 12 lead ECGon 11-05-2023 ECG 12 lead ECG [facility] [place] [address] [place] [address] Electrocardiograph Report Signed Patient: Genny Barboza MR#: [id number] : 1940 Acct:[id number] Age/Sex: 83 / F ADM Date: 11/05/23 Loc: ER Room: Type: [facility] ER Attending Dr: Ordering Provider: [...] By Sim Gimenez DO 1144 Normal [facility] Erythrocyte distribution wid th [Ratio] by Automated countOrdered By: PROVIDER TEMP on 11-05-2023 Erythrocyte distribution width (RBC) [Ratio] 13.4 % Normal 11.9-15.3 [facility] Comment on above: Performed By: #### H S TROP, CBC, PT, BNP, CMP, CK, PTT #### [facility] [address] [place] [address] Erythrocytes [#/volume] in B lood by Automated countOrdered By: PROVIDER TEMP on 11-05-2023 RBC (Bld) [#/Vol] 4.19 10*6/uL Normal 3.60-5.00 [facility] Comment on above: Performed By: #### H S TROP, CBC, PT, BNP, CMP, CK, PTT #### [facility] [address] [place] [address] [place] Glucose [Mass/volume] in Ser um or PlasmaOrdered By: PROVIDER TEMP on 11-05-2023 Glucose [Mass/Vol] 104 mg/dL High 70-100 [facility] Comment on above: ADA recommended refe rence rangeRandom Glucose Reference Range is dependent on time and content of last meal. Glucose of more than 200 mg/dL in a nonstressed, ambulatory subject supports the diagnosis of Diabetes Mellitus. Result Comment: [place] om Glucose Reference Range is dependent on time and content of last meal. Glucose of more than 200 mg/dL in a nonstressed, ambulatory subject supports the diagnosis of Diabetes Mellitus. ADA recommended reference range Performed By: #### H S TROP, CBC, PT, BNP, CMP, CK, PTT #### [facility] [address] [place] [address] [place] Hematocrit [Volume Fraction] of Blood by Automated countOrdered By: PROVIDER TEMP on 11-05-2023 Hematocrit (Bld) [Volume fraction] 40.1 % Normal 34.0-46.4 [facility] Comment on above: Performed By: #### H S TROP, CBC, PT, BNP, CMP, CK, PTT #### [facility] [address] Hemoglobin [Mass/volume] in BloodOrdered By: PROVIDER TEMP on 11-05-2023 Hemoglobin (Bld) [Mass/Vol] 13.7 g/dL Normal 11.8-15.4 [facility] Comment on above: Performed By: #### H S TROP, CBC, PT, BNP, CMP, CK, PTT #### [facility] [address] INR in Platelet poor plasma by Coagulation assayOrdered By: PROVIDER TEMP on 11-05-2023 INR Coag (PPP) [Relative time] 0.9 {INR} Normal [facility] Comment on above: INR Therapeutic Rang e [...] valves: 3 - 4.5 Performed By: #### H S TROP, CBC, PT, BNP, CMP, CK, PTT #### [facility] [address] [place] [address] [place] Leukocytes [#/volume] correc kristi for nucleated erythrocytes in Blood by Automated counOrdered By: PROVIDER TEMP on 11-05-2023 WBC corrected for nucl RBC Auto (Bld) [#/Vol] 6.7 10*3/uL 3.8-11.6 [facility] Leukocytes [#/volume] in Blo od by Automated countOrdered By: PROVIDER TEMP on 11-05-2023 WBC (Bld) [#/Vol] 6.7 10*3/uL Normal 3.8-11.6 [facility] Comment on above: Performed By: #### H S TROP, CBC, PT, BNP, CMP, CK, PTT #### [facility] [address] Lymphocytes [#/volume] in Bl ood by Automated countOrdered By: PROVIDER TEMP on 11-05-2023 Lymphocytes (Bld) [#/Vol] 1.0 10*3/uL Normal 1.00-4.8 [facility] Comment on above: Performed By: #### H S TROP, CBC, PT, BNP, CMP, CK, PTT #### [facility] [address] [place] [address] Lymphocytes/100 leukocytes i n Blood by Automated countOrdered By: PROVIDER TEMP on 11-05-2023 Lymphocytes/100 WBC (Bld) 15.0 % Normal . [facility] Comment on above: Performed By: #### H S TROP, CBC, PT, BNP, CMP, CK, PTT #### [facility] [address] [place] [address] MCH [Entitic mass] by Automa kristi countOrdered By: PROVIDER TEMP on 11-05-2023 MCH (RBC) [Entitic mass] 32.6 pg Normal 24.7-34.3 [facility] Comment on above: Performed By: #### H S TROP, CBC, PT, BNP, CMP, CK, PTT #### [facility] [address] [place] [address] MCHC Auto (RBC) [Mass/Vol]Or dered By: PROVIDER TEMP on 11-05-2023 MCHC (RBC) [Mass/Vol] 34.2 g/dL 32.0-35.0 [facility] MCV [Entitic volume] by Auto mated countOrdered By: PROVIDER TEMP on 11-05-2023 MCV (RBC) [Entitic vol] 95.5 fL Normal 80-100 [facility] Comment on above: Performed By: #### H S TROP, CBC, PT, BNP, CMP, CK, PTT #### [facility] [address] Monocyte distribution width [Entitic volume] in Blood by AutomatedOrdered By: PROVIDER TEMP on 11-05-2023 Monocyte distribution width Auto (Bld) [Entitic vol] 20.41 % High 0.00-20.00 [facility] Comment on above: For adults in ED, MD W > 20.0 may be associated with a higher risk of sepsis during the first 12 hrs of hospital admission Neutrophils [#/volume] in Bl ood by Automated countOrdered By: PROVIDER TEMP on 11-05-2023 Neutrophils (Bld) [#/Vol] 5.0 10*3/uL Normal 1.8-7.7 [facility] Comment on above: Performed By: #### H S TROP, CBC, PT, BNP, CMP, CK, PTT #### [facility] [address] No Panel InformationOrdered By: PROVIDER TEMP on 11-05-2023 Estimated GFR (CKD-EPI) > 60.0 mL/Min [facility] Creatinine Clearance (Chem 42.53 [facility] Nucleated erythrocytes [Pres ence] in Blood by Automated countOrdered By: PROVIDER TEMP on 11-05-2023 Nucleated RBC Auto Ql (Bld) 0.1 /100{WBC} 0-0.5 [facility] Partial Thromboplastin Timeo n 11-05-2023 aPTT Coag (Bld) [Time] 30.2 s Normal 25.1-36.5 [facility] Comment on above: Result Comment: A he matocrit value greater than 55% may lead to inaccurate results in coagulation testing. Patients having hematocrit values >55% require a special collection tube for coagulation studies. Please contact the laboratory at [phone] for redraw instructions. PERFORMED BY: [place] [address] PATHOLOGIST SKIVER HAND KAYLIN ARDON M.D. Performed By: #### H S TROP, CBC, PT, BNP, CMP, CK, PTT #### [facility] [address] [place] [address] [place] Platelet mean volume [Entiti c volume] in Blood by Automated countOrdered By: PROVIDER TEMP on 11-05-2023 Platelet mean volume (Bld) [Entitic vol] 8.0 fL Normal 6.3-10.7 [facility] Comment on above: Performed By: #### H S TROP, CBC, PT, BNP, CMP, CK, PTT #### [address] Platelets [#/volume] in Bloo d by Automated countOrdered By: PROVIDER TEMP on 11-05-2023 Platelets (Bld) [#/Vol] 314 10*3/uL Normal 150-450 [facility] Comment on above: Performed By: #### H S TROP, CBC, PT, BNP, CMP, CK, PTT #### [address] Potassium [Moles/volume] in Serum or PlasmaOrdered By: PROVIDER TEMP on 11-05-2023 Potassium [Moles/Vol] 4.3 mmol/L Normal 3.5-5.1 [facility] Comment on above: Performed By: #### H S TROP, CBC, PT, BNP, CMP, CK, PTT #### [place] [address] [place] Protein [Mass/volume] in Ser um or PlasmaOrdered By: PROVIDER TEMP on 11-05-2023 Protein [Mass/Vol] 6.8 g/dL Normal 6.4-8.9 [facility] Comment on above: Performed By: #### H S TROP, CBC, PT, BNP, CMP, CK, PTT #### [address] Prothrombin time (PT)Ordered By: PROVIDER TEMP on 11-05-2023 PT Coag (PPP) [Time] 11.0 s Normal 9.0-12.9 [facility] Comment on above: A hematocrit value g reater than 55% may lead to inaccurate results in coagulation testing. Patients having hematocrit values >55% require a special collection tube for coagulation studies. Please contact the laboratory at [phone] for redraw instructions. Result Comment: A he matocrit value greater than 55% may lead to inaccurate results in coagulation testing. Patients having hematocrit values >55% require a special collection tube for coagulation studies. Please contact the laboratory at [phone] for redraw instructions. Performed By: #### H S TROP, CBC, PT, BNP, CMP, CK, PTT #### [address] Serum globulin measurement b y calculation (mass/volume)Ordered By: PROVIDER TEMP on 11-05-2023 Globulin (S) [Mass/Vol] 2.7 g/dL [facility] Comment on above: Performed By: #### H S TROP, CBC, PT, BNP, CMP, CK, PTT #### [address] Serum or plasma albumin/glob ulin mass ratioOrdered By: PROVIDER TEMP on 11-05-2023 Albumin/Globulin [Mass ratio] 1.5 {ratio} [facility] Comment on above: Performed By: #### H S TROP, CBC, PT, BNP, CMP, CK, PTT #### [address] Serum or plasma anion gap de terminationOrdered By: PROVIDER TEMP on 11-05-2023 Anion gap [Moles/Vol] 12.1 mmol/L Normal 6.0-15.0 [facility] Comment on above: Performed By: #### H S TROP, CBC, PT, BNP, CMP, CK, PTT #### [address] Sodium [Moles/volume] in Ser um or PlasmaOrdered By: PROVIDER TEMP on 11-05-2023 Sodium [Moles/Vol] 139 mmol/L Normal 136-145 [facility] Comment on above: Performed By: #### H S TROP, CBC, PT, BNP, CMP, CK, PTT #### [address] Troponin I High Sensitivityo n 11-05-2023 Troponin I High Sensitivity 36.1 pg/mL High 0.0-15.0 [facility] Comment on above: Result Comment: PERF ORMED BY: [place] [address] PATHOLOGIST SKIVER HAND KAYLIN ARDON M.D. Performed By: #### H S TROP #### [address] Troponin I High Sensitivity 34.8 pg/mL High 0.0-15.0 [facility] Comment on above: Result Comment: PERF ORMED BY: [place] [address] PATHOLOGIST SKIVER HAND KAYLIN ARDON M.D. Performed By: #### H S TROP, CBC, PT, BNP, CMP, CK, PTT #### [address] Troponin I.cardiac [Mass/vol ume] in Serum or Plasma by Detection limit <= 0.01 ng/Ordered By: Rona Andres on 11-05-2023 Troponin I.cardiac DL <= 0.01 ng/mL [Mass/Vol] 36.1 pg/mL High 0.0-15.0 [facility] Urea nitrogen [Mass/volume] in Serum or PlasmaOrdered By: PROVIDER TEMP on 11-05-2023 Urea nitrogen [Mass/Vol] 20 mg/dL Normal 7-25 [facility] Comment on above: Performed By: #### H S TROP, CBC, PT, BNP, CMP, CK, PTT #### [address] XR chest 1V portableon 11-04 XR chest 1V portable [facility] [address] XRay Report Signed Patient: Genny Barboza MR#: [id number] : 1940 Acct:[id number] Age/Sex: 83 / F ADM Date: 11/05/23 [...] Antonio Martinez M.D.11/05/2023 7:45 AM Dictation Location: [place] [address] Transcribed By: [facility] 11/05/23 0745 Dictated By: Juan Antonio Martinez DO 11/05/23 0743 Signed By: 11/05/23 0745 Normal [facility] Automated basophil %Ordered By: Reji Frausto on 10-29-2023 Basophils/100 WBC (Bld) 0.7 % Normal . [facility] Comment on above: Performed By: #### H S TROP #### [facility] [address] [place] [address] Automated basophil countOrde red By: Reji Frausto on 10-29-2023 Basophils (Bld) [#/Vol] 0.1 10*3/uL Normal 0.0-0.2 [facility] Comment on above: Result Comment: PERF ORMED BY: [place] [address] PATHOLOGIST SKIVER HAND KAYLIN ARDON M.D. Performed By: #### H S TROP #### [facility] [address] [place] [address] Automated blood monocyte cou ntOrdered By: Reji Frausto on 10-29-2023 Monocytes (Bld) [#/Vol] 0.8 10*3/uL Normal 0.0-0.8 [facility] Comment on above: Performed By: #### H S TROP #### [address] Automated eosinophil %Ordere d By: Reji Frausto on 10-29-2023 Eosinophils/100 WBC (Bld) 0.6 % Normal . [facility] Comment on above: Performed By: #### H S TROP #### [address] Automated eosinophil countOr dered By: Reji Frausto on 10-29-2023 Eosinophils (Bld) [#/Vol] 0.0 10*3/uL Normal 0.0-0.45 [facility] Comment on above: Performed By: #### H S TROP #### [address] Automated monocyte %Ordered By: Reji Frausto on 10-29-2023 Monocytes/100 WBC (Bld) 9.4 % Normal . [facility] Comment on above: Performed By: #### H S TROP #### [address] Automated neutrophil %Ordere d By: Reji Frausto on 10-29-2023 Neutrophils/100 WBC (Bld) 73.5 % Normal . [facility] Comment on above: Performed By: #### H S TROP #### [address] Basic Metabolic Panelon 08 Creatinine Clr Calc Pharmacy 41.47 Normal [facility] Comment on above: Result Comment: PERF ORMED BY: [place] [address] PATHOLOGIST SKIVER HAND KAYLIN ARDON M.D. Performed By: #### H S TROP #### [address] GFR/1.73 sq M.predicted MDRD (S/P/Bld) [Vol rate/Area] mL/min/{1.73_m2} Normal [facility] Comment on above: Performed By: #### H S TROP #### [address] Calcium [Mass/volume] in Ser um or PlasmaOrdered By: Reji Frausto on 10-29-2023 Calcium [Mass/Vol] 9.3 mg/dL Normal 8.6-10.3 [facility] Comment on above: Performed By: #### H S TROP #### [address] Carbon dioxide, total [Moles /volume] in Serum or PlasmaOrdered By: Reji Frausto on 10-29-2023 CO2 [Moles/Vol] 24.3 mmol/L Normal 21.0-31.0 [facility] Comment on above: Performed By: #### H S TROP #### [address] Chloride [Moles/volume] in S carolyne or PlasmaOrdered By: Reji Frausto on 10-29-2023 Chloride [Moles/Vol] 109 mmol/L High 98-107 [facility] Comment on above: Performed By: #### H S TROP #### [address] Complete Blood Count Auto Di ffon 10-29-2023 Mean Corpuscular HGB Conc 33.9 g/dL Normal 32.0-35.0 [facility] Comment on above: Performed By: #### H S TROP #### [address] NRBC% 0.1 /100{WBC} Normal 0-0.5 [facility] Comment on above: Performed By: #### H S TROP #### [address] Creatinine [Mass/volume] in Serum or PlasmaOrdered By: Reji Frausto on 10-29-2023 Creatinine [Mass/Vol] 0.91 mg/dL Normal 0.60-1.20 [facility] Comment on above: Performed By: #### H S TROP #### [address] [place] [address] [place] ECG 12 lead ECGon 10-29-2023 ECG 12 lead ECG [facility] [place] [address] [place] [address] Electrocardiograph Report Signed Patient: Genny Barboza MR#: [id number] : 1940 Acct:[id number] Age/Sex: 83 / F ADM Date: 10/27/23 Loc: Room: [address] [place] [address] Type: DIS IN Attending Dr: Reji Frausto [...] Marilou Wilhelm DO 4 1855 Normal [facility] Erythrocyte distribution wid th [Ratio] by Automated countOrdered By: Reji Frausto on 10-29-2023 Erythrocyte distribution width (RBC) [Ratio] 13.8 % Normal 11.9-15.3 [facility] Comment on above: Performed By: #### H S TROP #### [facility] [address] [place] [address] [place] Erythrocytes [#/volume] in B lood by Automated countOrdered By: Reji Frausto on 10-29-2023 RBC (Bld) [#/Vol] 3.96 10*6/uL Normal 3.60-5.00 [facility] Comment on above: Performed By: #### H S TROP #### [facility] [address] [place] [address] [place] Glucose [Mass/volume] in Ser um or PlasmaOrdered By: Reji Frausto on 10-29-2023 Glucose [Mass/Vol] 105 mg/dL High 70-100 [facility] Comment on above: ADA recommended refe rence rangeRandom Glucose Reference Range is dependent on time and content of last meal. Glucose of more than 200 mg/dL in a nonstressed, ambulatory subject supports the diagnosis of Diabetes Mellitus. Result Comment: [place] om Glucose Reference Range is dependent on time and content of last meal. Glucose of more than 200 mg/dL in a nonstressed, ambulatory subject supports the diagnosis of Diabetes Mellitus. ADA recommended reference range Performed By: #### H S TROP #### [address] Hematocrit [Volume Fraction] of Blood by Automated countOrdered By: Reji Frausto on 10-29-2023 Hematocrit (Bld) [Volume fraction] 38.2 % Normal 34.0-46.4 [facility] Comment on above: Performed By: #### H S TROP #### [address] Hemoglobin [Mass/volume] in BloodOrdered By: Reji Frausto on 10-29-2023 Hemoglobin (Bld) [Mass/Vol] 12.9 g/dL Normal 11.8-15.4 [facility] Comment on above: Performed By: #### H S TROP #### [address] Leukocytes [#/volume] correc kristi for nucleated erythrocytes in Blood by Automated counOrdered By: Reji Frausto on 10-29-2023 WBC corrected for nucl RBC Auto (Bld) [#/Vol] 8.1 10*3/uL 3.8-11.6 [facility] Leukocytes [#/volume] in Blo od by Automated countOrdered By: Reji Frausto on 10-29-2023 WBC (Bld) [#/Vol] 8.1 10*3/uL Normal 3.8-11.6 [facility] Comment on above: Performed By: #### H S TROP #### [place] [address] [place] Lymphocytes [#/volume] in Bl ood by Automated countOrdered By: Reji Frausto on 10-29-2023 Lymphocytes (Bld) [#/Vol] 1.3 10*3/uL Normal 1.00-4.8 [facility] Comment on above: Performed By: #### H S TROP #### [address] Lymphocytes/100 leukocytes i n Blood by Automated countOrdered By: Reji Frausto on 10-29-2023 Lymphocytes/100 WBC (Bld) 15.8 % Normal . [facility] Comment on above: Performed By: #### H S TROP #### [address] MCH [Entitic mass] by Automa kristi countOrdered By: Reji Frausto on 10-29-2023 MCH (RBC) [Entitic mass] 32.7 pg Normal 24.7-34.3 [facility] Comment on above: Performed By: #### H S TROP #### [address] MCHC Auto (RBC) [Mass/Vol]Or dered By: Reji Frausto on 10-29-2023 MCHC (RBC) [Mass/Vol] 33.9 g/dL 32.0-35.0 [facility] MCV [Entitic volume] by Auto mated countOrdered By: Reji Frausto on 10-29-2023 MCV (RBC) [Entitic vol] 96.5 fL Normal 80-100 [facility] Comment on above: Performed By: #### H S TROP #### [address] Neutrophils [#/volume] in Bl ood by Automated countOrdered By: Reji Frausto on 10-29-2023 Neutrophils (Bld) [#/Vol] 5.9 10*3/uL Normal 1.8-7.7 [facility] Comment on above: Performed By: #### H S TROP #### [address] No Panel InformationOrdered By: Reji Frausto on 10-29-2023 Estimated GFR (CKD-EPI) > 60.0 mL/Min [facility] Creatinine Clearance (Chem 41.47 [facility] Nucleated erythrocytes [Pres ence] in Blood by Automated countOrdered By: Reji Frausto on 10-29-2023 Nucleated RBC Auto Ql (Bld) 0.1 /100{WBC} 0-0.5 [facility] Platelet mean volume [Entiti c volume] in Blood by Automated countOrdered By: Reji Frausto on 10-29-2023 Platelet mean volume (Bld) [Entitic vol] 8.0 fL Normal 6.3-10.7 [facility] Comment on above: Performed By: #### H S TROP #### [facility] [address] [place] [address] [place] Platelets [#/volume] in Bloo d by Automated countOrdered By: Reji Frausto on 10-29-2023 Platelets (Bld) [#/Vol] 261 10*3/uL Normal 150-450 [facility] Comment on above: Performed By: #### H S TROP #### [facility] [address] [place] [address] Potassium [Moles/volume] in Serum or PlasmaOrdered By: Reji Frausto on 10-29-2023 Potassium [Moles/Vol] 4.0 mmol/L Normal 3.5-5.1 [facility] Comment on above: Performed By: #### H S TROP #### [facility] [address] [place] [address] Serum or plasma anion gap de terminationOrdered By: Reji Frausto on 10-29-2023 Anion gap [Moles/Vol] 8.7 mmol/L Normal 6.0-15.0 [facility] Comment on above: Performed By: #### H S TROP #### [facility] [address] [place] [address] [place] Sodium [Moles/volume] in Ser um or PlasmaOrdered By: Reji Frausto on 10-29-2023 Sodium [Moles/Vol] 138 mmol/L Normal 136-145 [facility] Comment on above: Performed By: #### H S TROP #### [address] Urea nitrogen [Mass/volume] in Serum or PlasmaOrdered By: Reji Frausto on 10-29-2023 Urea nitrogen [Mass/Vol] 17 mg/dL Normal 7-25 [facility] Comment on above: Performed By: #### H S TROP #### [facility] [address] Basic Metabolic Panelon 08 Anion gap [Moles/Vol] 6.3 mmol/L Normal 6.0-15.0 [facility] Comment on above: Performed By: #### H S TROP #### [address] Calcium [Mass/Vol] 9.3 mg/dL Normal 8.6-10.3 [facility] Comment on above: Performed By: #### H S TROP #### [place] [address] [place] Chloride [Moles/Vol] 112 mmol/L High 98-107 [facility] Comment on above: Performed By: #### H S TROP #### [address] CO2 [Moles/Vol] 20.7 mmol/L Low 21.0-31.0 [facility] Comment on above: Performed By: #### H S TROP #### [address] Creatinine [Mass/Vol] 0.85 mg/dL Normal 0.60-1.20 [facility] Comment on above: Performed By: #### H S TROP #### [place] [address] [place] Creatinine Clr Calc Pharmacy 44.36 Normal [facility] Comment on above: Performed By: #### H S TROP #### [place] [address] [place] GFR/1.73 sq M.predicted MDRD (S/P/Bld) [Vol rate/Area] mL/min/{1.73_m2} Normal [facility] Comment on above: Performed By: #### H S TROP #### [facility] [address] [place] [address] [place] Glucose [Mass/Vol] 104 mg/dL High 70-100 [facility] Comment on above: Result Comment: [place] Glucose Reference Range is dependent on time and content of last meal. Glucose of more than 200 mg/dL in a nonstressed, ambulatory subject supports the diagnosis of Diabetes Mellitus. ADA recommended reference range Performed By: #### H S TROP #### [facility] [address] Potassium [Moles/Vol] 4.0 mmol/L Normal 3.5-5.1 [facility] Comment on above: Performed By: #### H S TROP #### [facility] [address] Sodium [Moles/Vol] 135 mmol/L Low 136-145 [facility] Comment on above: Performed By: #### H S TROP #### [facility] [address] [place] [address] [place] Urea nitrogen [Mass/Vol] 17 mg/dL Normal 7-25 [facility] Comment on above: Performed By: #### H S TROP #### [facility] [address] Cholesterol [Mass/volume] in Serum or PlasmaOrdered By: Reji Frausto on 10-28-2023 Cholesterol [Mass/Vol] 241 mg/dL High 140-200 [facility] Comment on above: Chol less than 200 m g/dl low riskChol 201-239 mg/dl borderline riskChol 240 mg/dl and greater high risk Result Comment: Chol less than 200 mg/dl low risk Chol 201-239 mg/dl borderline risk Chol 240 mg/dl and greater high risk Performed By: #### H S TROP #### [facility] [address] [place] [address] [place] Cholesterol in LDL Calc [Mas s/Vol]Ordered By: Reji Frausto on 10-28-2023 Cholesterol in LDL [Mass/Vol] 108 mg/dL High 0-100 [facility] Comment on above: LDL ATP III CLASSIFI CATIONLDL less than 100 mg/dL OptimalLDL 100-129 mg/dL Near or above optimalLDL 130-159 mg/dL Borderline highLDL 160-189 mg/dL HighLDL greater than 189 mg/dL Very high Cholesterol in VLDL Calc [Ma ss/Vol]Ordered By: Reji Frausto on 10-28-2023 Cholesterol in VLDL [Mass/Vol] 20 mg/dL [facility] Complete Blood Count Auto Di ffon 10-28-2023 Basophils (Bld) [#/Vol] 0.1 10*3/uL Normal 0.0-0.2 [facility] Comment on above: Result Comment: PERF ORMED BY: [place] [address] PATHOLOGIST SKIVER HAND KAYLIN ARDON M.D. Performed By: #### H S TROP #### [address] Basophils/100 WBC (Bld) 0.9 % Normal . [facility] Comment on above: Performed By: #### H S TROP #### [address] Eosinophils (Bld) [#/Vol] 0.0 10*3/uL Normal 0.0-0.45 [facility] Comment on above: Performed By: #### H S TROP #### [address] Eosinophils/100 WBC (Bld) 0.5 % Normal . [facility] Comment on above: Performed By: #### H S TROP #### [address] Erythrocyte distribution width (RBC) [Ratio] 13.7 % Normal 11.9-15.3 [facility] Comment on above: Performed By: #### H S TROP #### [address] Hematocrit (Bld) [Volume fraction] 37.9 % Normal 34.0-46.4 [facility] Comment on above: Performed By: #### H S TROP #### [place] [id number] [place] Hemoglobin (Bld) [Mass/Vol] 12.7 g/dL Normal 11.8-15.4 [facility] Comment on above: Performed By: #### H S TROP #### [address] Lymphocytes (Bld) [#/Vol] 1.7 10*3/uL Normal 1.00-4.8 [facility] Comment on above: Performed By: #### H S TROP #### [address] Lymphocytes/100 WBC (Bld) 20.4 % Normal . [facility] Comment on above: Performed By: #### H S TROP #### [address] MCH (RBC) [Entitic mass] 32.6 pg Normal 24.7-34.3 [facility] Comment on above: Performed By: #### H S TROP #### [address] MCV (RBC) [Entitic vol] 97.0 fL Normal 80-100 [facility] Comment on above: Performed By: #### H S TROP #### [address] Mean Corpuscular HGB Conc 33.5 g/dL Normal 32.0-35.0 [facility] Comment on above: Performed By: #### H S TROP #### [address] Monocytes (Bld) [#/Vol] 0.9 10*3/uL High 0.0-0.8 [facility] Comment on above: Performed By: #### H S TROP #### [address] Monocytes/100 WBC (Bld) 10.2 % Normal . [facility] Comment on above: Performed By: #### H S TROP #### [address] Neutrophils (Bld) [#/Vol] 5.7 10*3/uL Normal 1.8-7.7 [facility] Comment on above: Performed By: #### H S TROP #### [facility] [address] [place] [address] [place] Neutrophils/100 WBC (Bld) 68.0 % Normal . [facility] Comment on above: Performed By: #### H S TROP #### [facility] [address] [place] [address] [place] NRBC% 0.1 /100{WBC} Normal 0-0.5 [facility] Comment on above: Performed By: #### H S TROP #### [address] Platelet mean volume (Bld) [Entitic vol] 7.7 fL Normal 6.3-10.7 [facility] Comment on above: Performed By: #### H S TROP #### [place] [address] [place] Platelets (Bld) [#/Vol] 254 10*3/uL Normal 150-450 [facility] Comment on above: Performed By: #### H S TROP #### [place] [address] [place] RBC (Bld) [#/Vol] 3.90 10*6/uL Normal 3.60-5.00 [facility] Comment on above: Performed By: #### H S TROP #### [place] [address] [place] WBC (Bld) [#/Vol] 8.4 10*3/uL Normal 3.8-11.6 [facility] Comment on above: Performed By: #### H S TROP #### [place] [address] [place] ECG 12 lead ECGon 10-28-2023 ECG 12 lead ECG [facility] Main [place] [address] [place] [address] Electrocardiograph Report Signed Patient: Genny Barboza MR#: [id number] : 1940 Acct:[id number] Age/Sex: 83 / F ADM Date: 10/27/23 Loc: Room: [address] [place] [address] Type: DIS IN Attending Dr: Reji Frausto [...] PM Referred By: Electronically Signed By: Marilou Wlihelm Transcribed By: GORDY Signed By Marilou Wilhelm DO 4 1836 Normal [facility] ECG 12 lead ECG [facility] [place] [address] Electrocardiograph Report Signed Patient: Genny Barboza MR#: [id number] : 1940 Acct:[id number] Age/Sex: 83 / F ADM Date: 10/27/23 Loc: Room: [address] [place] [address] Type: DIS IN Attending Dr: Reji Frausto [...] are now present Confirmed by Lorenzo Mora ([id number]) on 11/07/2023 10:40:27 AM Referred By: Electronically Signed By: Lorenzo Mora Transcribed By: MUS Signed By Lorenzo Mora MD 11/07/23 1040 Normal [facility] echo transthoracicon [facility] echo transthoracic [facility] Main [address] [address] Echocardiogram Signed Patient: Genny Barboza MR#: [id number] : 1940 Acct:[id number] Age/Sex: 83 / F ADM Date: 10/27/23 Loc: Room: [address] [place] [address] Type: ADM IN Attending Dr: Reji Frausto DO Ordering Provider: Reji Frausto DO Date of Service: 10/28/2308/15/499 [facility] echo transthoracic: Acute inferior STEMI Copies [...] Performed At: 10/28/23 1040 Signed By: Marilou Wilhelm DO 10/28/23 1843 Normal [facility] Lipid Panelon 10-28-2023 LDL Cholesterol,Calculate d 108 mg/dL High 0-100 [facility] Comment on above: Result Comment: LDL ATP III CLASSIFICATION LDL less than 100 mg/dL Optimal LDL 100-129 mg/dL Near or above optimal LDL 130-159 mg/dL Borderline high LDL 160-189 mg/dL High LDL greater than 189 mg/dL Very high Performed By: #### H S TROP #### [facility] [address] [place] [address] Triglyceride w/Reflex 103 mg/dL Normal 0-149 [facility] Comment on above: Result Comment: TRIG ATP III CLASSIFICATION TRIG less than 150 mg/dL Normal TRIG 150-199 mg/dL Borderline high TRIG 200-500 mg/dL High TRIG greater than 500 mg/dL Very high Standard traceable to the Center for Disease Conrtrol and Prevention (CDC) test method. Performed By: #### H S TROP #### [facility] [address] [place] [address] VLDL CHOLESTEROL 20 mg/dL Normal [facility] Comment on above: Performed By: #### H S TROP #### [facility] [address] Serum or plasma high density lipoprotein (HDL) cholesterol measurementOrdered By: Reji Frausto on 10-28-2023 Cholesterol in HDL [Mass/Vol] 112 mg/dL High 23-92 [facility] Comment on above: HDL CHOL ATP-III CLA SSIFICATION Cardiovascular RiskHDL > or equal to 60 mg/dL LOWHDL < 40 mg/dL HIGH Result Comment: HDL CHOL ATP-III CLASSIFICATION Cardiovascular Risk HDL > or equal to 60 mg/dL LOW HDL < 40 mg/dL HIGH Performed By: #### H S TROP #### [facility] [address] [place] [address] Serum or plasma total choles terol/high density lipoprotein (HDL) cholesterol mass ratOrdered By: Reji Frausto on 10-28-2023 Cholesterol.total/Cho lesterol in HDL [Mass ratio] 2.2 {ratio} Normal <5.0 [facility] Comment on above: Result Comment: PERF ORMED BY: [place] [address] PATHOLOGIST SKIVER HAND KAYLIN ARDON M.D. Performed By: #### H S TROP #### [facility] [address] [place] [address] Triglyceride [Mass/volume] i n Serum or PlasmaOrdered By: Reji Frausto on 10-28-2023 Triglyceride [Mass/Vol] 103 mg/dL 0-149 [facility] Comment on above: TRIG ATP III CLASSIF ICATIONTRIG less than 150 mg/dL NormalTRIG 150-199 mg/dL Borderline highTRIG 200-500 mg/dL High TRIG greater than 500 mg/dL Very highStandard traceable to the Center for Disease Conrtrol and Prevention (CDC) test method. Troponin I High Sensitivityo n 10-28-2023 Troponin I High Sensitivity 82212.4 pg/mL Off scale high 0.0-15.0 [facility] Comment on above: Result Comment: Crit ical Result : Called to and read back by: ELLA SCOTT at: 10/28/2023 05:06:20 by:[id number] PERFORMED BY: [address] [place] [address] PATHOLOGIST SKIVER HAND KAYLIN ARDON M.D. Performed By: #### H S TROP #### [facility] [address] [place] [address] Troponin I High Sensitivity 60039.0 pg/mL Off scale high 0.0-15.0 [facility] Comment on above: Result Comment: Crit ical Result : Called to and read back by: ELLA SCOTT at: 10/28/2023 02:47:34 by:[id number] PERFORMED BY: [place] [address] PATHOLOGIST SKIVER HAND KAYLIN ARDON M.D. Performed By: #### H S TROP #### [address] Troponin I.cardiac [Mass/vol ume] in Serum or Plasma by Detection limit <= 0.01 ng/Ordered By: Reji Frausto on 10-28-2023 Troponin I.cardiac DL <= 0.01 ng/mL [Mass/Vol] 20898.4 pg/mL High 0.0-15.0 [facility] Comment on above: Critical Result : Ca lled to and read back by: ELLA SCOTT at: 10/28/2023 05:06:20 by:[id number] Activated partial thrombopla stin time (aPTT) in platelet poor plasma by coagulation aOrdered By: Doe Álvarez on 10-27-2023 aPTT Coag (PPP) [Time] 23.1 s Low 25.1-36.5 [facility] Comment on above: A hematocrit value g reater than 55% may lead to inaccurate results in coagulation testing. Patients having hematocrit values >55% require a special collection tube for coagulation studies. Please contact the laboratory at [phone] for redraw instructions. Alanine aminotransferase [En zymatic activity/volume] in Serum or PlasmaOrdered By: Doe Álvarez on 10-27-2023 ALT [Catalytic activity/Vol] 36 U/L Normal 7-52 [facility] Comment on above: Performed By: #### H S TROP, CBC, PT, BNP, CMP, CK, PTT #### [facility] [address] Albumin [Mass/volume] in Ser um or Plasma by Bromocresol green (BCG) dye binding methoOrdered By: Doe Álvarez on 10-27-2023 Albumin BCG dye [Mass/Vol] 4.4 g/dL 3.5-5.7 [facility] Alkaline phosphatase [Enzyma tic activity/volume] in Serum or PlasmaOrdered By: Doe Álvarez on 10-27-2023 ALP [Catalytic activity/Vol] 86 U/L Normal 34-104 [facility] Comment on above: Performed By: #### H S TROP, CBC, PT, BNP, CMP, CK, PTT #### [facility] [address] [place] [address] Aspartate aminotransferase [ Enzymatic activity/volume] in Serum or PlasmaOrdered By: Doe Álvarez on 10-27-2023 AST [Catalytic activity/Vol] 60 U/L High 13-39 [facility] Comment on above: Performed By: #### H S TROP, CBC, PT, BNP, CMP, CK, PTT #### [facility] [address] [place] [address] Automated basophil %Ordered By: Doe Álvarez on 10-27-2023 Basophils/100 WBC (Bld) 1.3 % Normal . [facility] Comment on above: Performed By: #### H S TROP #### [address] Automated basophil countOrde red By: Doe Álvarez on 10-27-2023 Basophils (Bld) [#/Vol] 0.1 10*3/uL Normal 0.0-0.2 [facility] Comment on above: Result Comment: PERF ORMED BY: [place] [address] PATHOLOGIST SKIVER HAND KAYLIN ARDON M.D. Performed By: #### H S TROP #### [facility] [address] [place] [address] Automated blood monocyte cou ntOrdered By: Doe Álvarez on 10-27-2023 Monocytes (Bld) [#/Vol] 0.7 10*3/uL Normal 0.0-0.8 [facility] Comment on above: Performed By: #### H S TROP #### [address] Automated eosinophil %Ordere d By: Doe Álvarez on 10-27-2023 Eosinophils/100 WBC (Bld) 0.7 % Normal . [facility] Comment on above: Performed By: #### H S TROP #### [address] Automated eosinophil countOr dered By: Doe Álvarez on 10-27-2023 Eosinophils (Bld) [#/Vol] 0.1 10*3/uL Normal 0.0-0.45 [facility] Comment on above: Performed By: #### H S TROP #### [address] Automated monocyte %Ordered By: Doe Álvarez on 10-27-2023 Monocytes/100 WBC (Bld) 8.7 % Normal . [facility] Comment on above: Performed By: #### H S TROP #### [address] Automated neutrophil %Ordere d By: Doe Álvarez on 10-27-2023 Neutrophils/100 WBC (Bld) 63.6 % Normal . [facility] Comment on above: Performed By: #### H S TROP #### [address] BNP ser/plasOrdered By: Nasreen Álvarez on 10-27-2023 Natriuretic peptide B (Bld) [Mass/Vol] 124.0 pg/mL High 5-100 [facility] Comment on above: Result Comment: PERF ORMED BY: [place] [address] PATHOLOGIST SKIVER HAND KAYLIN ARDON M.D. Performed By: #### H S TROP, CBC, PT, BNP, CMP, CK, PTT #### [address] Bilirubin.total [Mass/volume ] in Serum or PlasmaOrdered By: Doe Álvarez on 10-27-2023 Bilirubin [Mass/Vol] 0.7 mg/dL Normal 0.3-1.0 [facility] Comment on above: Performed By: #### H S TROP, CBC, PT, BNP, CMP, CK, PTT #### [facility] [address] Calcium [Mass/volume] in Ser um or PlasmaOrdered By: Doe Álvarez on 10-27-2023 Calcium [Mass/Vol] 10.0 mg/dL Normal 8.6-10.3 [facility] Comment on above: Performed By: #### H S TROP, CBC, PT, BNP, CMP, CK, PTT #### [address] Carbon dioxide, total [Moles /volume] in Serum or PlasmaOrdered By: Doe Álvarez on 10-27-2023 CO2 [Moles/Vol] 21.0 mmol/L Normal 21.0-31.0 [facility] Comment on above: Performed By: #### H S TROP, CBC, PT, BNP, CMP, CK, PTT #### [facility] [address] [place] [address] [place] Chloride [Moles/volume] in S carolyne or PlasmaOrdered By: Doe Álvarez on 10-27-2023 Chloride [Moles/Vol] 107 mmol/L Normal 98-107 [facility] Comment on above: Performed By: #### H S TROP, CBC, PT, BNP, CMP, CK, PTT #### [place] [address] [place] Complete Blood Count Auto Di ffon 10-27-2023 Mean Corpuscular HGB Conc 34.1 g/dL Normal 32.0-35.0 [facility] Comment on above: Performed By: #### H S TROP #### [place] [address] [place] Monocytes/100 WBC (Bld) 20.20 % High 0.00-20.00 [facility] Comment on above: Result Comment: For adults in ED, MDW > 20.0 may be associated with a higher risk of sepsis during the first 12 hrs of hospital admission Performed By: #### H S TROP #### [address] NRBC% 0.1 /100{WBC} Normal 0-0.5 [facility] Comment on above: Performed By: #### H S TROP #### [address] Comprehensive Metabolic Pane marianela 10-27-2023 Albumin [Mass/Vol] 4.4 g/dL Normal 3.5-5.7 [facility] Comment on above: Performed By: #### H S TROP, CBC, PT, BNP, CMP, CK, PTT #### [address] Creatinine Clr Calc Pharmacy 35.04 Normal [facility] Comment on above: Result Comment: PERF ORMED BY: [place] [address] PATHOLOGIST SKIVER HAND KAYLIN ARDON M.D. Performed By: #### H S TROP, CBC, PT, BNP, CMP, CK, PTT #### [address] GFR/1.73 sq M.predicted MDRD (S/P/Bld) [Vol rate/Area] 52.124 mL/min/{1.73_m2} Normal [facility] Comment on above: Performed By: #### H S TROP, CBC, PT, BNP, CMP, CK, PTT #### [address] Creatine kinase [Enzymatic a ctivity/volume] in Serum or PlasmaOrdered By: Doe Álvarez on 10-27-2023 CK [Catalytic activity/Vol] 74 U/L Normal 30-223 [facility] Comment on above: Performed By: #### H S TROP, CBC, PT, BNP, CMP, CK, PTT #### [address] Creatinine [Mass/volume] in Serum or PlasmaOrdered By: Doe Álvarez on 10-27-2023 Creatinine [Mass/Vol] 1.06 mg/dL Normal 0.60-1.20 [facility] Comment on above: Performed By: #### H S TROP, CBC, PT, BNP, CMP, CK, PTT #### [place] [id number] [facility] ECG 12 lead ECGon 10-27-2023 ECG 12 lead ECG [facility] [place] [address] Electrocardiograph Report Signed Patient: Genny Barboza MR#: [id number] : 1940 Acct:[id number] Age/Sex: 83 / F ADM Date: 10/27/23 Loc: Room: [address] [place] [address] Type: DIS IN Attending Dr: Reji Frausto [...] By Marilou Wilhelm DO 1831 Normal [facility] ECG 12 lead ECG [facility] [place] [address] Electrocardiograph Report Signed Patient: Genny Barboaz MR#: [id number] : 1940 Acct:[id number] Age/Sex: 83 / F ADM Date: 10/27/23 Loc: Room: [address] [place] [address] Type: ADM IN Attending Dr: Reji Frausto [...] consider inferolateral injury or acute infarct ACUTE SC / STEMI Consider right ventricular involvement in acute inferior infarct Abnormal ECG No previous ECGs available Confirmed by ANAYELI DAVE MD ([id number]) on 10/27/2023 7:16:42 PM Referred By: Electronically Signed By: ANAYELI DAVE MD Transcribed By: MUS Signed By Anayeli Dave MD 10/27/23 191 Normal [facility] Erythrocyte distribution wid th [Ratio] by Automated countOrdered By: Doe Álvarez on 10-27-2023 Erythrocyte distribution width (RBC) [Ratio] 14.0 % Normal 11.9-15.3 [facility] Comment on above: Performed By: #### H S TROP #### [facility] [address] [place] [address] [place] Erythrocytes [#/volume] in B lood by Automated countOrdered By: Doe Álvarez on 10-27-2023 RBC (Bld) [#/Vol] 4.45 10*6/uL Normal 3.60-5.00 [facility] Comment on above: Performed By: #### H S TROP #### [facility] [address] [place] [address] [place] Glucose [Mass/volume] in Ser um or PlasmaOrdered By: Doe Álvarez on 10-27-2023 Glucose [Mass/Vol] 166 mg/dL High 70-100 [facility] Comment on above: ADA recommended refe rence rangeRandom Glucose Reference Range is dependent on time and content of last meal. Glucose of more than 200 mg/dL in a nonstressed, ambulatory subject supports the diagnosis of Diabetes Mellitus. Result Comment: [place] om Glucose Reference Range is dependent on time and content of last meal. Glucose of more than 200 mg/dL in a nonstressed, ambulatory subject supports the diagnosis of Diabetes Mellitus. ADA recommended reference range Performed By: #### H S TROP, CBC, PT, BNP, CMP, CK, PTT #### [facility] [address] Hematocrit [Volume Fraction] of Blood by Automated countOrdered By: Doe Álvarez on 10-27-2023 Hematocrit (Bld) [Volume fraction] 42.6 % Normal 34.0-46.4 [facility] Comment on above: Performed By: #### H S TROP #### [address] Hemoglobin [Mass/volume] in BloodOrdered By: Doe Álvarez on 10-27-2023 Hemoglobin (Bld) [Mass/Vol] 14.5 g/dL Normal 11.8-15.4 [facility] Comment on above: Performed By: #### H S TROP #### [address] INR in Platelet poor plasma by Coagulation assayOrdered By: Doe Álvarez on 10-27-2023 INR Coag (PPP) [Relative time] 0.9 {INR} Normal [facility] Comment on above: INR Therapeutic Rang e [...] valves: 3 - 4.5 Performed By: #### H S TROP, CBC, PT, BNP, CMP, CK, PTT #### [address] Leukocytes [#/volume] correc kristi for nucleated erythrocytes in Blood by Automated counOrdered By: Doe Álvarez on 10-27-2023 WBC corrected for nucl RBC Auto (Bld) [#/Vol] 8.6 10*3/uL 3.8-11.6 [facility] Leukocytes [#/volume] in Blo od by Automated countOrdered By: Doe Álvarez on 10-27-2023 WBC (Bld) [#/Vol] 8.6 10*3/uL Normal 3.8-11.6 [facility] Comment on above: Performed By: #### H S TROP #### [address] Lymphocytes [#/volume] in Bl ood by Automated countOrdered By: Doe Álvarez on 10-27-2023 Lymphocytes (Bld) [#/Vol] 2.2 10*3/uL Normal 1.00-4.8 [facility] Comment on above: Performed By: #### H S TROP #### [facility] [address] [place] [address] Lymphocytes/100 leukocytes i n Blood by Automated countOrdered By: Doe Álvarez on 10-27-2023 Lymphocytes/100 WBC (Bld) 25.7 % Normal . [facility] Comment on above: Performed By: #### H S TROP #### [address] MCH [Entitic mass] by Automa kristi countOrdered By: Doe Álvarez on 10-27-2023 MCH (RBC) [Entitic mass] 32.6 pg Normal 24.7-34.3 [facility] Comment on above: Performed By: #### H S TROP #### [address] MCHC Auto (RBC) [Mass/Vol]Or dered By: Doe Álvarez on 10-27-2023 MCHC (RBC) [Mass/Vol] 34.1 g/dL 32.0-35.0 [facility] MCV [Entitic volume] by Auto mated countOrdered By: Doe Álvarez on 10-27-2023 MCV (RBC) [Entitic vol] 95.7 fL Normal 80-100 [facility] Comment on above: Performed By: #### H S TROP #### [address] Monocyte distribution width [Entitic volume] in Blood by AutomatedOrdered By: Doe Álvarez on 10-27-2023 Monocyte distribution width Auto (Bld) [Entitic vol] 20.20 % High 0.00-20.00 [facility] Comment on above: For adults in ED, MD W > 20.0 may be associated with a higher risk of sepsis during the first 12 hrs of hospital admission Neutrophils [#/volume] in Bl ood by Automated countOrdered By: Doe Álvarez on 10-27-2023 Neutrophils (Bld) [#/Vol] 5.5 10*3/uL Normal 1.8-7.7 [facility] Comment on above: Performed By: #### H S TROP #### [address] No Panel InformationOrdered By: Doe Álvarez on 10-27-2023 Estimated GFR (CKD-EPI) 52.124 mL/Min [facility] Creatinine Clearance (Chem 35.04 [facility] Nucleated erythrocytes [Pres ence] in Blood by Automated countOrdered By: Doe Álvarez on 10-27-2023 Nucleated RBC Auto Ql (Bld) 0.1 /100{WBC} 0-0.5 [facility] Partial Thromboplastin Timeo n 10-27-2023 aPTT Coag (Bld) [Time] 23.1 s Low 25.1-36.5 [facility] Comment on above: Result Comment: A he matocrit value greater than 55% may lead to inaccurate results in coagulation testing. Patients having hematocrit values >55% require a special collection tube for coagulation studies. Please contact the laboratory at [phone] for redraw instructions. PERFORMED BY: [place] [address] PATHOLOGIST SKIVER HAND KAYLIN ARDON M.D. Performed By: #### H S TROP, CBC, PT, BNP, CMP, CK, PTT #### [address] Platelet mean volume [Entiti c volume] in Blood by Automated countOrdered By: Doe Álvarez on 10-27-2023 Platelet mean volume (Bld) [Entitic vol] 7.7 fL Normal 6.3-10.7 [facility] Comment on above: Performed By: #### H S TROP #### [facility] [address] Platelets [#/volume] in Bloo d by Automated countOrdered By: Doe Álvarez on 10-27-2023 Platelets (Bld) [#/Vol] 294 10*3/uL Normal 150-450 [facility] Comment on above: Performed By: #### H S TROP #### [facility] [address] Potassium [Moles/volume] in Serum or PlasmaOrdered By: Doe Álvarez on 10-27-2023 Potassium [Moles/Vol] 3.7 mmol/L Normal 3.5-5.1 [facility] Comment on above: Performed By: #### H S TROP, CBC, PT, BNP, CMP, CK, PTT #### [facility] [address] Protein [Mass/volume] in Ser um or PlasmaOrdered By: Doe Álvarez on 10-27-2023 Protein [Mass/Vol] 7.1 g/dL Normal 6.4-8.9 [facility] Comment on above: Performed By: #### H S TROP, CBC, PT, BNP, CMP, CK, PTT #### [facility] [address] Prothrombin time (PT)Ordered By: Doe Álvarez on 10-27-2023 PT Coag (PPP) [Time] 10.7 s Normal 9.0-12.9 [facility] Comment on above: A hematocrit value g reater than 55% may lead to inaccurate results in coagulation testing. Patients having hematocrit values >55% require a special collection tube for coagulation studies. Please contact the laboratory at [phone] for redraw instructions. Result Comment: A he matocrit value greater than 55% may lead to inaccurate results in coagulation testing. Patients having hematocrit values >55% require a special collection tube for coagulation studies. Please contact the laboratory at [phone] for redraw instructions. Performed By: #### H S TROP, CBC, PT, BNP, CMP, CK, PTT #### [address] Serum globulin measurement b y calculation (mass/volume)Ordered By: Doe Álvarez on 10-27-2023 Globulin (S) [Mass/Vol] 2.7 g/dL [facility] Comment on above: Performed By: #### H S TROP, CBC, PT, BNP, CMP, CK, PTT #### [facility] [address] [place] [address] Serum or plasma albumin/glob ulin mass ratioOrdered By: Doe Álvarez on 10-27-2023 Albumin/Globulin [Mass ratio] 1.6 {ratio} [facility] Comment on above: Performed By: #### H S TROP, CBC, PT, BNP, CMP, CK, PTT #### [address] Serum or plasma anion gap de terminationOrdered By: Doe Álvarez on 10-27-2023 Anion gap [Moles/Vol] 13.7 mmol/L Normal 6.0-15.0 [facility] Comment on above: Performed By: #### H S TROP, CBC, PT, BNP, CMP, CK, PTT #### [address] Sodium [Moles/volume] in Ser um or PlasmaOrdered By: Doe Álvarez on 10-27-2023 Sodium [Moles/Vol] 138 mmol/L Normal 136-145 [facility] Comment on above: Performed By: #### H S TROP, CBC, PT, BNP, CMP, CK, PTT #### [address] Troponin I High Sensitivityo n 10-27-2023 Troponin I High Sensitivity 74467.9 pg/mL Off scale high 0.0-15.0 [facility] Comment on above: Order Comment: guido case collect at 2350 Result Comment: Crit ical Result : Called to and read back by: DELIA LOZANO at: 10/28/2023 00:06:21 by:[id number] PERFORMED BY: [place] [address] PATHOLOGIST SKIVER HAND KAYLIN ARDON M.D. Performed By: #### H S TROP #### [address] Troponin I High Sensitivity 72077.3 pg/mL Off scale high 0.0-15.0 [facility] Comment on above: Order Comment: guido evie collect at 2150 Result Comment: Crit ical Result : Called to and read back by: ELLA SCOTT at: 10/27/2023 23:27:11 by:[id number] PERFORMED BY: [place] [address] PATHOLOGIST SKIVER HAND KAYLIN ARDON M.D. Performed By: #### H S TROP #### [address] Troponin I High Sensitivity 6295.7 pg/mL Off scale high 0.0-15.0 [facility] Comment on above: Result Comment: Crit ical Result : Called to and read back by: MONET CONNORS at: 10/27/2023 21:58:31 by:[id number] PERFORMED BY: [place] [address] PATHOLOGIST SKIVER HAND KAYLIN ARDON M.D. Performed By: #### H S TROP #### [address] Troponin I High Sensitivity 10.2 pg/mL Normal 0.0-15.0 [facility] Comment on above: Result Comment: PERF ORMED BY: [place] [address] PATHOLOGIST SKIVER HAND KAYLIN ARDON M.D. Performed By: #### H S TROP, CBC, PT, BNP, CMP, CK, PTT #### [address] Troponin I.cardiac [Mass/vol ume] in Serum or Plasma by Detection limit <= 0.01 ng/Ordered By: Doe Álvarez on 10-27-2023 Troponin I.cardiac DL <= 0.01 ng/mL [Mass/Vol] 10.2 pg/mL 0.0-15.0 [facility] Urea nitrogen [Mass/volume] in Serum or PlasmaOrdered By: Doe Álvarez on 10-27-2023 Urea nitrogen [Mass/Vol] 17 mg/dL Normal 7-25 [facility] Comment on above: Performed By: #### H S TROP, CBC, PT, BNP, CMP, CK, PTT #### [facility] [address] XR chest 1V portableon 10-26 XR chest 1V portable [facility] [address] [place] [address] XRay Report Signed Patient: Genny Barboza MR#: [id number] : 1940 Acct:[id number] Age/Sex: 83 / F ADM Date: 10/27/23 Loc: Room: Type: [facility] Attending Dr: Reji Frausto DO Copies [...] Antonio Martinez M.D.10/27/2023 5:41 PM Dictation Location: [place] [address] Transcribed By: CODY 10/27/23 1741 Dictated By: Juan Antonio Martinez DO 10/27/23 1739 Signed By: 10/27/23 1741 Normal [facility] Glucose Glucometer (BldC) [M ass/Vol]Ordered By: Branden Du on 05-06-2023 Glucose [Mass/Vol] 93 mg/dL [facility] Comment on above: Random Glucose Refer ence Range is dependent on time and content of last meal. Glucose of more than 200 mg/dL in a nonstressed, ambulatory subject supports the diagnosis of Diabetes Mellitus. Urinalysis - DIPSTICKon Appearance (U) clear [employer] Other Bilirubin Ql (U) Negative [employer] Other Color (U) light yellow [employer] Other Glucose Ql (U) Negative [employer] Other Hemoglobin Ql (U) Negative [employer] Other Ketones Ql (U) Negative [employer] Other Leukocyte esterase Test strip Ql (U) Negative [employer] Other Nitrite Ql (U) Negative [employer] Other pH (U) 5.0 [pH] [employer] Other Protein Ql (U) Negative [employer] Other Specific gravity (U) [Rel density] 1.005 [employer] Other Urobilinogen (U) [Mass/Vol] 0.5 mg/dL [employer] Other Urinalysis - DIPSTICK [employer] Other CBC AUTO DIFFon 05-21-2022 BASO # 0.0 103/ul Normal 0.0-0.1 [facility] Comment on above: Performed By: #### C BC #### [facility] [address] [place] [address] [address] Arlyn Chan Basophils/100 WBC (Bld) 0.6 % Normal 0.2-2.0 [facility] Comment on above: Performed By: #### C BC #### [facility] [address] [place] [address] Dr. Arlyn Chan EO # 0.1 103/ul Normal 0.0-0.7 [facility] Comment on above: Performed By: #### C BC #### [facility] [address] [place] [address] Dr. Arlyn Chan Eosinophils/100 WBC (Bld) 1.1 % Normal 0.9-7.0 [facility] Comment on above: Performed By: #### C BC #### [facility] [address] [place] [address] Dr. Arlyn Chan Erythrocyte distribution width (RBC) [Ratio] 13.6 % Normal 11.0-15.0 [facility] Comment on above: Performed By: #### C BC #### [facility] [address] [place] [address] Dr. Arlyn Chan Hematocrit (Bld) [Volume fraction] 44.3 % Normal 36.0-48.0 [facility] Comment on above: Performed By: #### C BC #### [facility] [address] [place] [address] Dr. Arlyn Chan Hemoglobin (Bld) [Mass/Vol] 14.8 g/dL Normal 12.0-16.0 [facility] Comment on above: Performed By: #### C BC #### [facility] [address] [place] [address] Dr. Arlyn Chan IG # 0.00 10e3/ul Normal 0.00-0.03 [facility] Comment on above: Performed By: #### C BC #### [facility] [address] [place] [address] Dr. Arlyn Chan IG % 0.0 % Normal 0.0-0.5 [facility] Comment on above: Performed By: #### C BC #### [facility] [address] [place] [address] Dr. Arlyn Chan LYMPH # 1.7 103/ul Normal 1.2-3.8 [facility] Comment on above: Performed By: #### C BC #### [facility] [address] [place] [address] Dr. Arlyn Chan Lymphocytes/100 WBC (Bld) 31.1 % Normal 20.5-60.0 [facility] Comment on above: Performed By: #### C BC #### [facility] [address] [place] [address] Dr. Arlyn Chan MANUAL DIFF REQ NO Normal [facility] Comment on above: Performed By: #### C BC #### [facility] [address] [place] [address] Dr. Arlyn Chan MCH (RBC) [Entitic mass] 31.9 pg Normal 26.7-34.0 [facility] Comment on above: Performed By: #### C BC #### [facility] [address] [place] [address] Dr. Arlyn Chan MCHC (RBC) [Mass/Vol] 33.4 g/dL Normal 29.9-35.2 [facility] Comment on above: Performed By: #### C BC #### [facility] [address] [place] [address] Dr. Arlyn Chan MCV (RBC) [Entitic vol] 95.5 fL Normal 81.0-99.0 [facility] Comment on above: Performed By: #### C BC #### [facility] [address] [place] [address] Dr. Arlyn Chan MONO # 0.5 103/ul Normal 0.3-0.8 [facility] Comment on above: Performed By: #### C BC #### [facility] [address] [place] [address] Dr. Arlyn Chan Monocytes/100 WBC (Bld) 8.8 % Normal 1.7-12.0 [facility] Comment on above: Performed By: #### C BC #### [facility] [address] [place] [address] Dr. Arlyn Chan NEUT # 3.1 103/ul Normal 1.4-6.5 [facility] Comment on above: Performed By: #### C BC #### [facility] [address] [place] [address] [address] Arlyn Chan Neutrophils/100 WBC (Bld) 58.4 % Normal 43.0-75.0 [facility] Comment on above: Performed By: #### C BC #### [facility] [address] [place] [address] Dr. Arlyn Chan Platelet mean volume (Bld) [Entitic vol] 10.0 fL Normal 9.5-13.5 [facility] Comment on above: Performed By: #### C BC #### [facility] [address] [place] [address] Dr. Arlyn Chan PLT 242 103/ul Normal 150-450 [facility] Comment on above: Performed By: #### C BC #### [facility] [address] [place] [address] Dr. Arlyn Chan RBC 4.64 106/ul Normal 4.20-5.40 [facility] Comment on above: Performed By: #### C BC #### [facility] [address] [place] [address] Dr. Arlyn Chan WBC 5.4 103/ul Normal 4.0-11.0 [facility] Comment on above: Performed By: #### C BC #### [facility] [address] [place] [address] Dr. Arlyn Chan PROF CHEM 8 (BAS METB)on Anion gap [Moles/Vol] 13.9 mmol/L Normal [facility] Comment on above: Performed By: #### H STROPN, BMP #### [facility] [address] [place] [address] Dr. Arlyn Chan Calcium [Mass/Vol] 9.4 mg/dL Normal 8.5-10.1 [facility] Comment on above: Performed By: #### H STROPN, BMP #### [facility] [address] [place] [address] [address] Arlyn Chan Chloride [Moles/Vol] 105 mmol/L Normal 98-107 [facility] Comment on above: Performed By: #### H STROPN, BMP #### [facility] [address] [place] [address] [address] Arlyn Chan CO2 [Moles/Vol] 24.3 mmol/L Normal 21.0-32.0 [facility] Comment on above: Performed By: #### H STROPN, BMP #### [facility] [address] [place] [address] [address] Arlyn Chan Creatinine [Mass/Vol] 0.76 mg/dL Normal 0.55-1.02 [facility] Comment on above: Performed By: #### H STROPN, BMP #### [facility] [address] [place] [address] [address] Arlyn Chan EGFR-AF TRINIDADIAN >60 Normal >=60 [facility] Comment on above: Performed By: #### H STROPN, BMP #### [facility] [address] [place] [address] [address] Arlyn Chan EGFR-NON AF TRINIDADIAN >60 Normal >=60 [facility] Comment on above: Performed By: #### H STROPN, BMP #### [facility] [address] [place] [address] [address] Arlyn Chan Glucose [Mass/Vol] 96 mg/dL Normal 74-106 [facility] Comment on above: Performed By: #### H STROPN, BMP #### [facility] [address] [place] [address] [address] Arlyn Chan Potassium [Moles/Vol] 4.2 mmol/L Normal 3.5-5.1 [facility] Comment on above: Performed By: #### H STROPN, BMP #### [facility] [address] [place] [address] [address] Arlyn Chan Sodium [Moles/Vol] 139 mmol/L Normal 136-145 [facility] Comment on above: Performed By: #### H STROPN, BMP #### [facility] [address] [place] [address] [address] Arlyn Chan Urea nitrogen [Mass/Vol] 21.0 mg/dL Critically high 7.0-18.0 [facility] Comment on above: Performed By: #### H YURI, BMP #### [facility] [address] [place], [place] [address] Dr. Arlyn Chan Urea nitrogen/Creatinine [Mass ratio] 27.6 mg/mg Normal [facility] Comment on above: Performed By: #### H YURI, BMP #### [facility] [address] [place], [place] [address] Dr. Arlyn Chan Progress Noteson 05-21-2022 [employer] Technician Authentication Interface Message Text EMERGENCY TRIAGE, TREAT AND TRANSPORT (ET3) DOCUMENTATION OF TELEHEALTH VISIT Date / Time: 05/21/2022944 Name: Genny Barboza : 1940 SSN: (Not on file) EMS Agency: [facility] [x] Verbal consent obtained [] Implied [...] the typically is not available at a [place] primary care physician's office. Patient declined using ambulance go to the ER, and her daughter who was present on scene will drive her the 4 minutes will take to get to the [place] [facility]. I advised her to call 911 [...] Completed by: Sudheer Haro MD Normal [facility] TROPONIN, HIGH SENSITIVITYon 05-21-2022 HSTROP 5.9 pg/mL Normal 4.0-51.3 [facility] Comment on above: Result Comment: CUT- OFF POINTS HAVE BEEN ESTABLISHED BASED ON THE FOURTH UNIVERSAL DEFINITIONS OF MYOCARDIAL INFARCTION. THE UPPER REFERENCE LIMIT (URL) OF TROPONIN, DEFINED THE 99TH PERCENTILE OF cTnI DISTRIBUTION IN A REFERENCE POPULATION, HAS BEEN CONFIRMED THE DECISION THRESHOLD FOR SC DIAGNOSIS. Performed By: #### H YURI, [facility] #### [facility] [address] [place] [address] [address] Arlyn Chan MG MAMM SCREEN 3D VINNY CADon 02-08-2022 MG MAMM SCREEN 3D VINNY CAD Patient: GENNY BARBOZA Exam Date: 02/08/2022 : 1940 Gender:F Ordering : DR BRANDEN DU D.O. Admission #: [id number] Family : Order #: [id number] CLICK HERE TO VIEW EXAM RADIOLOGY REPORT [...] bowel resection Family Cancers None LOCATION: [facility] BREAST COMPOSITION: Scattered areas fibroglandular density. FINDINGS: [...] Addison MD on 02/08/2022 at 14:06 Normal [facility] CT CHEST WO CONon 08-11-2021 CT CHEST [...] SOTO Date: 2021-08-11 17:29 Normal [facility] Vital Signs Date Time Vital Sign Value Performing Clinician Facility 11-04-2024 14:04-0400 Body height 154.94 cm Branden Du DO Work Phone: [facility] 11-04-2024 14:04-0400 Body mass index (BMI) [Ratio] 26.9 kg/m2 Branden Ball DO Work Phone: [facility] 11-04-2024 14:04-0400 Body weight 64.58 kg Branden Ball DO Work Phone: [facility] 11-04-2024 14:04-0400 Diastolic blood pressure 71 mm[Hg] Branden Ball DO Work Phone: [facility] 11-04-2024 14:04-0400 Heart rate 71 /min Branden Ball DO Work Phone: [facility] 11-04-2024 14:04-0400 Respiratory rate 12 /min Branden Ball DO Work Phone: [facility] 11-04-2024 14:04-0400 Systolic blood pressure 112 mm[Hg] Branden Ball DO Work Phone: [facility] 11-03-2024 14:04-0400 Body height 154.9 cm Vanessa Dave BOAT PULLER-RADIOLOGY RESIDENT Work Phone: [facility] 11-03-2024 14:04-0400 Body mass index (BMI) [Ratio] 27.21 kg/m2 Vanessa Dave BOAT PULLER-RADIOLOGY RESIDENT Work Phone: [facility] 11-03-2024 14:04-0400 Body weight 65.32 kg Vanessa Dave BOAT PULLER-RADIOLOGY RESIDENT Work Phone: [facility] 11-03-2024 14:04-0400 Diastolic blood pressure 60 mm[Hg] Vanessa Dave BOAT PULLER-RADIOLOGY RESIDENT Work Phone: [facility] 11-03-2024 14:04-0400 Heart rate 60 /min Vanessa Dave BOAT PULLER-RADIOLOGY RESIDENT Work Phone: [facility] 11-03-2024 14:04-0400 Systolic blood pressure 102 mm[Hg] Vanessa Dave BOAT PULLER-RADIOLOGY RESIDENT Work Phone: [facility] 09-29-2024 14:31-0400 Body height 154.9 cm Vanessa Dave BOAT PULLER-RADIOLOGY RESIDENT Work Phone: [facility] 09-29-2024 14:31-0400 Body mass index (BMI) [Ratio] 26.72 kg/m2 Vanessa Dave BOAT PULLER-RADIOLOGY RESIDENT Work Phone: [facility] 09-29-2024 14:31-0400 Body weight 64.14 kg Vanessa Dave BOAT PULLER-RADIOLOGY RESIDENT Work Phone: [facility] 09-29-2024 14:31-0400 Diastolic blood pressure 80 mm[Hg] Vanessa Dave BOAT PULLER-RADIOLOGY RESIDENT Work Phone: [facility] 09-29-2024 14:31-0400 Heart rate 64 /min Vanessa Dave BOAT PULLER-RADIOLOGY RESIDENT Work Phone: [facility] 09-29-2024 14:31-0400 Systolic blood pressure 140 mm[Hg] Vanessa Dave BOAT PULLER-RADIOLOGY RESIDENT Work Phone: [facility] 09-29-2024 13:18-0400 Diastolic blood pressure 88 mm[Hg] Branden Ball DO Work Phone: [facility] 09-29-2024 13:18-0400 Systolic blood pressure 152 mm[Hg] Branden Ball DO Work Phone: [facility] 09-29-2024 13:15-0400 Body height 154.94 cm Branden Ball DO Work Phone: [facility] 09-29-2024 13:15-0400 Body mass index (BMI) [Ratio] 26.4 kg/m2 Branden Ball DO Work Phone: [facility] 09-29-2024 13:15-0400 Body weight 63.5 kg Branden Ball DO Work Phone: [facility] 09-29-2024 13:15-0400 Heart rate 60 /min Branden Ball DO Work Phone: [facility] 09-29-2024 13:15-0400 Respiratory rate 20 /min Branden Ball DO Work Phone: [facility] 09-29-2024 13:15-0400 SaO2% (BldA) [Mass fraction] 98 % Branden Ball DO Work Phone: [facility] 08-19-2024 13:31-0400 Body height 154.94 cm [facility] 08-19-2024 13:31-0400 Body mass index (BMI) [Ratio] 26.6 kg/m2 [facility] 08-19-2024 13:31-0400 Body weight 64.12 kg [facility] 08-19-2024 13:31-0400 Diastolic blood pressure 80 mm[Hg] [facility] 08-19-2024 13:31-0400 Heart rate 84 /min [facility] 08-19-2024 13:31-0400 Respiratory rate 12 /min [facility] 08-19-2024 13:31-0400 SaO2% (BldA) [Mass fraction] 99 % [facility] 08-19-2024 13:31-0400 Systolic blood pressure 127 mm[Hg] [facility] 08-05-2024 13:50-0400 Body height 154.9 cm Vanessa Dave BOAT PULLER-RADIOLOGY RESIDENT Work Phone: [facility] 08-05-2024 13:50-0400 Body mass index (BMI) [Ratio] 27.4 kg/m2 Vanessa Dave BOAT PULLER-RADIOLOGY RESIDENT Work Phone: [facility] 08-05-2024 13:50-0400 Body weight 65.77 kg Vanessa Dave BOAT PULLER-RADIOLOGY RESIDENT Work Phone: [facility] 08-05-2024 13:50-0400 Diastolic blood pressure 70 mm[Hg] Vanessa Dave BOAT PULLER-RADIOLOGY RESIDENT Work Phone: [facility] 08-05-2024 13:50-0400 Heart rate 72 /min Vanessa Dave BOAT PULLER-RADIOLOGY RESIDENT Work Phone: [facility] 08-05-2024 13:50-0400 Systolic blood pressure 122 mm[Hg] Vanessa Dave BOAT PULLER-RADIOLOGY RESIDENT Work Phone: [facility] 07-20-2024 11:18-0400 Body height 154.94 cm [facility] 07-20-2024 11:18-0400 Body mass index (BMI) [Ratio] 26.4 kg/m2 [facility] 07-20-2024 11:18-0400 Body weight 63.5 kg [facility] 07-20-2024 11:18-0400 Diastolic blood pressure 86 mm[Hg] [facility] 07-20-2024 11:18-0400 Heart rate 63 /min [facility] 07-20-2024 11:18-0400 Systolic blood pressure 138 mm[Hg] [facility] 05-27-2024 11:23-0500 Body height 154.9 cm Inderjit Frausto DO Work Phone: [facility] 05-27-2024 11:23-0500 Body mass index (BMI) [Ratio] 27.02 kg/m2 Inderjit Frausto DO Work Phone: [facility] 05-27-2024 11:23-0500 Body weight 64.86 kg Inderjit Frausto DO Work Phone: [facility] 05-27-2024 11:23-0500 Diastolic blood pressure 72 mm[Hg] Inderjit Frausto DO Work Phone: [facility] 05-27-2024 11:23-0500 Heart rate 60 /min Inderjit Frausto DO Work Phone: [facility] 05-27-2024 11:23-0500 Systolic blood pressure 110 mm[Hg] Inderjit Frausto DO Work Phone: [facility] 05-12-2024 13:38-0500 Body height 154.94 cm [facility] 05-12-2024 13:38-0500 Body mass index (BMI) [Ratio] 26.4 kg/m2 [facility] 05-12-2024 13:38-0500 Body weight 63.5 kg [facility] 05-12-2024 13:38-0500 Diastolic blood pressure 85 mm[Hg] [facility] 05-12-2024 13:38-0500 Heart rate 68 /min [facility] 05-12-2024 13:38-0500 Respiratory rate 12 /min [facility] 05-12-2024 13:38-0500 Systolic blood pressure 128 mm[Hg] [facility] 03-12-2024 10:45-0500 Body height 154.94 cm [facility] 03-12-2024 10:45-0500 Body mass index (BMI) [Ratio] 27 kg/m2 [facility] 03-12-2024 10:45-0500 Body weight 64.86 kg [facility] 03-12-2024 10:45-0500 Diastolic blood pressure 66 mm[Hg] [facility] 03-12-2024 10:45-0500 Heart rate 60 /min [facility] 03-12-2024 10:45-0500 Respiratory rate 20 /min [facility] 03-12-2024 10:45-0500 SaO2% (BldA) [Mass fraction] 98 % [facility] 03-12-2024 10:45-0500 Systolic blood pressure 156 mm[Hg] [facility] 03-11-2024 13:04-0500 Body height 154.94 cm [facility] 03-11-2024 13:04-0500 Body mass index (BMI) [Ratio] 27.8 kg/m2 [facility] 03-11-2024 13:04-0500 Body weight 66.9 kg [facility] 03-09-2024 16:23-0500 Body height 154.94 cm [facility] 03-09-2024 16:23-0500 Body mass index (BMI) [Ratio] 27.8 kg/m2 [facility] 03-09-2024 16:23-0500 Body weight 66.79 kg [facility] 03-09-2024 16:23-0500 Diastolic blood pressure 81 mm[Hg] [facility] 03-09-2024 16:23-0500 Heart rate 70 /min [facility] 03-09-2024 16:23-0500 Respiratory rate 12 /min [facility] 03-09-2024 16:23-0500 Systolic blood pressure 157 mm[Hg] [facility] 12-20-2023 10:40-0400 Body height 154.9 cm Inderjit Frausto DO Work Phone: [facility] 12-20-2023 10:40-0400 Body mass index (BMI) [Ratio] 27.02 kg/m2 Inderjit Frausto DO Work Phone: [facility] 12-20-2023 10:40-0400 Body weight 64.86 kg Inderjit Frausto DO Work Phone: [facility] 12-20-2023 10:40-0400 Diastolic blood pressure 86 mm[Hg] Inderjit Fruasto DO Work Phone: [facility] 12-20-2023 10:40-0400 Heart rate 57 /min Inderjit Frausto DO Work Phone: [facility] 12-20-2023 10:40-0400 Systolic blood pressure 120 mm[Hg] Inderjit Frausto DO Work Phone: [facility] 12-12-2023 13:21-0400 Body height 154.94 cm FLAKITA Álvarez Work Phone: [facility] 12-12-2023 13:21-0400 Body mass index (BMI) [Ratio] 26.6 kg/m2 FLAKITA Álvarez Work Phone: [facility] 12-12-2023 13:21-0400 Body weight 64 kg FLAKITA Álvarez Work Phone: [facility] 12-04-2023 15:49-0400 Body height 154.94 cm FLAKITA Álvarez Work Phone: [facility] 12-04-2023 15:49-0400 Body mass index (BMI) [Ratio] 26.9 kg/m2 PA-C Doe Álvarez Work Phone: [facility] 12-04-2023 15:49-0400 Body weight 64.58 kg PA-C Doe Álvarez Work Phone: [facility] 12-04-2023 15:49-0400 Diastolic blood pressure 83 mm[Hg] PA-C Doe Álvarez Work Phone: [facility] 12-04-2023 15:49-0400 Heart rate 71 /min PA-C Doe Álvarez Work Phone: [facility] 12-04-2023 15:49-0400 Respiratory rate 12 /min PA-C Doe Álvarez Work Phone: [facility] 12-04-2023 15:49-0400 Systolic blood pressure 151 mm[Hg] PA-C Doe Álvarez Work Phone: [facility] 11-12-2023 11:55-0400 Body height 154.94 cm PA-C Doe Álvarez Work Phone: [facility] 11-12-2023 11:55-0400 Body mass index (BMI) [Ratio] 27.3 kg/m2 PA-C Doe Álvarez Work Phone: [facility] 11-12-2023 11:55-0400 Body weight 65.48 kg PA-C Doe Álvarez Work Phone: [facility] 11-12-2023 11:55-0400 Diastolic blood pressure 84 mm[Hg] PA-C Doe Álvarez Work Phone: [facility] 11-12-2023 11:55-0400 Heart rate 57 /min PA-C Doe Álvarez Work Phone: [facility] 11-12-2023 11:55-0400 Respiratory rate 12 /min PA-C Doe Álvarez Work Phone: [facility] 11-12-2023 11:55-0400 Systolic blood pressure 144 mm[Hg] PA-C Doe Álvarez Work Phone: [facility] 11-07-2023 10:05-0400 Body height 154.9 cm Inderjit Frausto DO Work Phone: [facility] 11-07-2023 10:05-0400 Body mass index (BMI) [Ratio] 26.83 kg/m2 Inderjit Frausto DO Work Phone: [facility] 11-07-2023 10:05-0400 Body weight 64.41 kg Inderjit Frausto DO Work Phone: [facility] 11-07-2023 10:05-0400 Diastolic blood pressure 68 mm[Hg] Inderjit Frausto DO Work Phone: [facility] 11-07-2023 10:05-0400 Heart rate 82 /min Inderjit Frausto DO Work Phone: [facility] 11-07-2023 10:05-0400 Systolic blood pressure 118 mm[Hg] Inderjit Frausto DO Work Phone: [facility] 11-05-2023 11:37-0400 Diastolic blood pressure 61 mm[Hg] IGNACIA-C Doe Álvarez Work Phone: [facility] 11-05-2023 11:37-0400 Heart rate 63 /min IGNACIA-C Doe Álvarez Work Phone: [facility] 11-05-2023 11:37-0400 Respiratory rate 20 /min IGNACIA-C Doe Álvarez Work Phone: [facility] 11-05-2023 11:37-0400 SaO2% (BldA) [Mass fraction] 98 % PA-C Doe Álvarez Work Phone: [facility] 11-05-2023 11:37-0400 Systolic blood pressure 143 mm[Hg] PA-C Doe Álvarez Work Phone: [facility] 11-05-2023 09:10-0400 Body temperature 97.8 [degF] PA-C Doe Álvarez Work Phone: [facility] 11-05-2023 07:18-0400 Body height 154.94 cm PA-C Doe Álvarez Work Phone: [facility] 11-05-2023 07:18-0400 Body weight 65.77 kg PA-C Doe Álvarez Work Phone: [facility] 10-29-2023 16:00-0400 Body temperature 98.2 [degF] PA-C Doe Álvarez Work Phone: [facility] 10-29-2023 16:00-0400 Diastolic blood pressure 88 mm[Hg] PA-C Doe Álvarez Work Phone: [facility] 10-29-2023 16:00-0400 Heart rate 58 /min PA-C Doe Álvarez Work Phone: [facility] 10-29-2023 16:00-0400 Respiratory rate 16 /min PA-C Doe Álvarez Work Phone: [facility] 10-29-2023 16:00-0400 SaO2% (BldA) [Mass fraction] 96 % PA-C Doe Álvarez Work Phone: [facility] 10-29-2023 16:00-0400 Systolic blood pressure 140 mm[Hg] PA-C Doe Álvarez Work Phone: [facility] 10-29-2023 06:00-0400 Body weight 65.6 kg PA-C Doe Álvarez Work Phone: [facility] 10-29-2023 06:00-0400 Inhaled oxygen flow rate 2 L/min PA-C Doe Álvarez Work Phone: [facility] 10-27-2023 21:42-0400 Body height 154.94 cm PA-C Doe Álvarez Work Phone: [facility] 10-27-2023 19:05-0400 Diastolic blood pressure 64 mm[Hg] PA-C Doe Álvarez Work Phone: [facility] 10-27-2023 19:05-0400 Heart rate 75 /min PA-C Doe Álvarez Work Phone: [facility] 10-27-2023 19:05-0400 Respiratory rate 28 /min PA-C Doe Álvarez Work Phone: [facility] 10-27-2023 19:05-0400 SaO2% (BldA) [Mass fraction] 96 % PA-C Doe Álvarez Work Phone: [facility] 10-27-2023 19:05-0400 Systolic blood pressure 120 mm[Hg] PA-C Doe Álvarez Work Phone: [facility] 10-27-2023 17:31-0400 Body temperature 97.9 [degF] PA-C Doe Álvarez Work Phone: [facility] 10-27-2023 17:11-0400 Body height 154.94 cm PA-C Doe Álvarez Work Phone: [facility] 10-27-2023 17:11-0400 Body weight 66.3 kg PA-C Doe Álvarez Work Phone: [facility] 06-20-2023 14:32-0400 Body height 165.1 cm DO Branden Ball Work Phone: [facility] 06-20-2023 14:32-0400 Body mass index (BMI) [Ratio] 24.4 kg/m2 DO Branden Ball Work Phone: [facility] 06-20-2023 14:32-0400 Body weight 66.67 kg DO Branden Ball Work Phone: [facility] 06-20-2023 14:32-0400 Diastolic blood pressure 77 mm[Hg] DO Branden Ball Work Phone: [facility] 06-20-2023 14:32-0400 Heart rate 83 /min DO Branden Ball Work Phone: [facility] 06-20-2023 14:32-0400 Systolic blood pressure 150 mm[Hg] DO Branden Ball Work Phone: [facility] 06-07-2023 09:28-0400 Body height 165.1 cm DO Branden Ball Work Phone: [facility] 06-07-2023 09:28-0400 Body mass index (BMI) [Ratio] 24.6 kg/m2 DO Branden Ball Work Phone: [facility] 06-07-2023 09:28-0400 Body weight 67.18 kg DO Branden Ball Work Phone: [facility] 06-07-2023 09:28-0400 Diastolic blood pressure 87 mm[Hg] DO Branden Ball Work Phone: [facility] 06-07-2023 09:28-0400 Heart rate 77 /min DO Branden Ball Work Phone: [facility] 06-07-2023 09:28-0400 Respiratory rate 12 /min DO Branden Ball Work Phone: [facility] 06-07-2023 09:28-0400 Systolic blood pressure 146 mm[Hg] DO Branden Ball Work Phone: [facility] 05-21-2023 10:24-0500 Body height 165.1 cm DO Branden Ball Work Phone: [facility] 05-21-2023 10:24-0500 Body mass index (BMI) [Ratio] 24.3 kg/m2 DO Branden Ball Work Phone: [facility] 05-21-2023 10:24-0500 Body weight 66.22 kg DO Branden Ball Work Phone: [facility] 05-21-2023 10:24-0500 Diastolic blood pressure 81 mm[Hg] DO Branden Ball Work Phone: [facility] 05-21-2023 10:24-0500 Heart rate 71 /min DO Branden Ball Work Phone: [facility] 05-21-2023 10:24-0500 Respiratory rate 16 /min DO Branden Ball Work Phone: [facility] 05-21-2023 10:24-0500 Systolic blood pressure 131 mm[Hg] DO Branden Ball Work Phone: [facility] 04-12-2023 11:30-0500 Body height 165.1 cm Branden Ball Other [facility] 04-12-2023 11:30-0500 Body mass index (BMI) [Ratio] 24.59 kg/m2 Branden Ball Other [facility] Other 04-12-2023 11:30-0500 Body weight 67.04 kg Branden Ball Other [facility] 04-12-2023 11:30-0500 Diastolic blood pressure 75 mm[Hg] Branden Ball Other [facility] 04-12-2023 11:30-0500 Respiratory rate 12 /min Branden Ball Other [facility] Other 04-12-2023 11:30-0500 Systolic blood pressure 122 mm[Hg] Branden Ball Other [facility] 03-26-2023 11:30-0500 Body height 165.1 cm Branden Ball Other [facility] 03-26-2023 11:30-0500 Body mass index (BMI) [Ratio] 24.89 kg/m2 Branden Ball Other [employer] Other 03-26-2023 11:30-0500 Body weight 67.86 kg Branden Ball Other [employer] Other 03-26-2023 11:30-0500 Body weight 67.85 kg DO Branden Ball Work Phone: [facility] 03-26-2023 11:30-0500 Diastolic blood pressure 82 mm[Hg] Branden Ball Other [facility] 03-26-2023 11:30-0500 Respiratory rate 12 /min Branden Ball Other [facility] Other 03-26-2023 11:30-0500 Systolic blood pressure 192 mm[Hg] Branden Ball Other [facility] 02-08-2023 13:30-0500 Body height 165.1 cm Branden Ball Other [facility] 02-08-2023 13:30-0500 Body mass index (BMI) [Ratio] 24.29 kg/m2 Branden Ball Other [facility] Other 02-08-2023 13:30-0500 Body weight 66.23 kg Branden Ball Other [facility] Other 02-08-2023 13:30-0500 Body weight 66.22 kg DO Branden Ball Work Phone: [facility] 02-08-2023 13:30-0500 Diastolic blood pressure 79 mm[Hg] Branden Ball Other [facility] 02-08-2023 13:30-0500 Respiratory rate 12 /min Branden Ball Other [facility] Other 02-08-2023 13:30-0500 Systolic blood pressure 128 mm[Hg] Branden Ball Other [facility] 08-27-2022 11:15-0400 Body height 165.1 cm Branden Ball Other [facility] Other 08-27-2022 11:15-0400 Body mass index (BMI) [Ratio] 24.06 kg/m2 Branden Ball Other [employer] Other 08-27-2022 11:15-0400 Body weight 65.59 kg Branden Ball Other [employer] Other 08-27-2022 11:15-0400 Diastolic blood pressure 83 mm[Hg] Branden Ball Other [employer] Other 08-27-2022 11:15-0400 Respiratory rate 12 /min Branden Ball Other [employer] Other 08-27-2022 11:15-0400 Systolic blood pressure 152 mm[Hg] Branden Ball Other [employer] Other 07-09-2022 15:00-0400 Body height 165.1 cm Branden Ball Other [employer] Other 07-09-2022 15:00-0400 Body mass index (BMI) [Ratio] 23.23 kg/m2 Branden Ball Other [employer] Other 07-09-2022 15:00-0400 Body weight 63.32 kg Branden Ball Other [employer] Other 07-09-2022 15:00-0400 Diastolic blood pressure 72 mm[Hg] Branden Ball Other [employer] Other 07-09-2022 15:00-0400 Respiratory rate 12 /min Branden Ball Other [employer] Other 07-09-2022 15:00-0400 Systolic blood pressure 134 mm[Hg] Branden Ball Other [employer] Other 05-21-2022 15:45-0500 Body height 165.1 cm Branden Ball Other [employer] Other 05-21-2022 15:45-0500 Body mass index (BMI) [Ratio] 24.56 kg/m2 Branden Du Other [employer] Other 05-21-2022 15:45-0500 Body weight 66.95 kg Branden Du Other [employer] Other 05-21-2022 15:45-0500 Diastolic blood pressure 82 mm[Hg] Branden Du Other [employer] Other 05-21-2022 15:45-0500 Respiratory rate 12 /min Branden Du Other [employer] Other 05-21-2022 15:45-0500 Systolic blood pressure 136 mm[Hg] Branden Du Other [employer] Other 05-21-2022 09:45-0500 Diastolic blood pressure 92 mm[Hg] [facility] 05-21-2022 09:45-0500 Heart rate 72 /min [facility] 05-21-2022 09:45-0500 Respiratory rate 18 /min [facility] 05-21-2022 09:45-0500 SaO2% (BldA) [Mass fraction] 98 % [facility] 05-21-2022 09:45-0500 Systolic blood pressure 181 mm[Hg] [facility] Encounters Encounter Date Encounter Type Care Provider Facility Start: 11-04-2024 End: 11-04-2024 ambulatory Branden Du DO Work Phone: [facility] Work Phone: Start: 11-04-2024 End: 11-04-2024 Patient encounter procedure Branden Du DO -[facility] Work Phone: Start: 11-03-2024 End: 11-03-2024 Office outpatient visit 10 minutes Vanessa Dave [employer] RESIDENT Work Phone: [facility] Comment on above: BMI 27.0-27.9,adult (Primary Dx); Essential hypertension; Localized edema Start: 11-03-2024 End: 11-03-2024 ambulatory [facility] Start: 10-03-2024 End: 10-03-2024 ambulatory Branden Ball DO Work Phone: [facility] Work Phone: Start: 10-03-2024 End: 10-03-2024 Departed Referred Laurie Mills MD -[facility] Start: 10-03-2024 Non-patient / Non-visit Laurie cervantes MD -[facility] Work Phone: Start: 09-29-2024 End: 09-29-2024 Office outpatient visit 15 minutes Vanessaantwan Dave [employer]IOLOG[employer] RESIDENT Work Phone: [facility] Comment on above: Essential hypertensi on (Primary Dx); Fatigue, unspecified type; BMI 26.0-26.9,adult Start: 09-29-2024 End: 09-29-2024 ambulatory [facility] Start: 09-29-2024 End: 09-29-2024 ambulatory Branden Ball DO Work Phone: [facility] Work Phone: Start: 09-29-2024 End: 09-29-2024 Patient encounter procedure Sobia Okeefe MD -[facility] Work Phone: Start: 08-19-2024 End: 08-19-2024 ambulatory [facility] Work Phone: Start: 08-19-2024 End: 08-19-2024 Patient encounter procedure [facility] Work Phone: Start: 08-05-2024 Non-patient / Non-visit [facility] Work Phone: Start: 08-05-2024 End: 08-05-2024 Office outpatient visit 25 minutes Vanessa Foreman Dave [employer]RADIOLOGY RESIDENT Work Phone: [facility] Comment on above: Hyperlipidemia, unsp ecified hyperlipidemia type (Primary Dx); Coronary artery disease, unspecified vessel or lesion type, unspecified whether angina present, unspecified whether benton or transplanted heart; History of ST elevation myocardial infarction (STEMI); Essential hypertension; BMI 27.0-27.9,adult; Fatigue, unspecified type; Shortness of breath Start: 08-05-2024 End: 08-05-2024 ambulatory [facility] Start: 07-20-2024 End: 07-20-2024 ambulatory [facility] Work Phone: Start: 07-20-2024 End: 07-20-2024 Patient encounter procedure [facility] Work Phone: Start: 05-27-2024 End: 05-27-2024 Office outpatient visit 15 minutes Inderjit Frausto DO Work Phone: [facility] Comment on above: Coronary artery dise ase, unspecified vessel or lesion type, unspecified whether angina present, unspecified whether benton or transplanted heart; History of ST elevation myocardial infarction (STEMI); History of PTCA; Hyperlipidemia, unspecified hyperlipidemia type; Essential hypertension; BMI 27.0-27.9,adult; Former smoker Start: 05-27-2024 End: 05-27-2024 ambulatory [facility] Amb[facility] Start: 05-12-2024 End: 05-12-2024 ambulatory [facility] Work Phone: Start: 05-12-2024 End: 05-12-2024 Patient encounter procedure [facility] Work Phone: Start: 04-28-2024 Non-patient / Non-visit [facility] Work Phone: Start: 03-12-2024 End: 03-12-2024 Patient encounter procedure [facility] Work Phone: Start: 03-11-2024 End: 03-11-2024 Patient encounter procedure [facility] Work Phone: Start: 03-09-2024 End: 03-09-2024 Patient encounter procedure [facility] Work Phone: Start: 03-07-2024 Patient encounter procedure [facility] Start: 03-06-2024 Non-patient / Non-visit [facility] Work Phone: Start: 12-20-2023 End: 12-20-2023 Office outpatient [facility] Work Phone: [facility] Comment on above: Near syncope; Fatigue, unspecified type; History of PTCA; Essential hypertension; History of ST elevation myocardial infarction (STEMI); Shortness of breath; Coronary artery disease, unspecified vessel or lesion type, unspecified whether angina present, unspecified whether benton or transplanted heart; Former smoker; BMI 27.0-27.9,adult Start: 12-20-2023 End: 12-20-2023 ambulatory [facility] Start: 12-12-2023 End: 12-12-2023 ambulatory PA-Heri Álvarez Work Phone: [facility] Work Phone: Start: 12-12-2023 End: 12-12-2023 Patient encounter procedure PA-Heri Álvarez Work Phone: [facility] Work Phone: Start: 12-04-2023 End: 12-04-2023 ambulatory PA-C Doe Álvarez Work Phone: [facility] Work Phone: Start: 12-04-2023 End: 12-04-2023 Patient encounter procedure PA-Heri Álvarez Work Phone: [facility] Work Phone: Start: 11-12-2023 End: 11-12-2023 ambulatory PA-C Doe Álvarez Work Phone: [facility] Work Phone: Start: 11-12-2023 End: 11-12-2023 Patient encounter procedure FLAKITA Álvarez Work Phone: [facility] Work Phone: Start: 11-07-2023 End: 11-07-2023 ambulatory [facility] Start: 11-07-2023 End: 11-07-2023 Transitional care manage srvc 7 day discharge Inderjit Bacadon DO Work Phone: [facility] Comment on above: Coronary artery dise ase, unspecified vessel or lesion type, unspecified whether angina present, unspecified whether benton or transplanted heart; History of PTCA; History of ST elevation myocardial infarction (STEMI); Shortness of breath; Former smoker; BMI 26.0-26.9,adult; Hyperlipidemia, unspecified hyperlipidemia type Start: 11-05-2023 Non-patient / Non-visit IGNACIA-Heri Álvarez Work Phone: [facility] Work Phone: Start: 11-05-2023 End: 11-05-2023 Emergency department patient visit FLAKITA Álvarez Work Phone: [facility]-Emergency Room Work Phone: Start: 10-28-2023 Non-patient / Non-visit FLAKITA Álvarez Work Phone: [facility] Pulmonary Disease Work Phone: Start: 10-27-2023 End: 10-29-2023 Evaluation and management of inpatient IGNACIA-Heri Álvarez Work Phone: [facility] [place] [facility] Work Phone: Start: 06-20-2023 End: 06-20-2023 ambulatory DO Branden Philly Work Phone: [facility] Work Phone: Start: 06-20-2023 End: 06-20-2023 Patient encounter procedure DO Branden Ball Work Phone: [facility] Gastroenterology Work Phone: Start: 06-07-2023 End: 06-07-2023 ambulatory DO Branden Ball Work Phone: [facility] Work Phone: Start: 06-07-2023 End: 06-07-2023 Patient encounter procedure DO Branden Ball Work Phone: [facility] Work Phone: Start: 05-21-2023 End: 05-21-2023 Patient encounter procedure DO Branden Ball Work Phone: [facility] Work Phone: Start: 05-06-2023 End: 05-06-2023 ambulatory DO Branden Ball Work Phone: [facility] Work Phone: Start: 05-06-2023 End: 05-06-2023 Patient encounter procedure DO Branden Ball Work Phone: [facility]Pet [facility] Work Phone: Start: 04-24-2023 End: 04-24-2023 ambulatory ELENA HASSAN Not Available Start: 04-23-2023 End: 04-23-2023 ambulatory Branden Ball Other [employer] Other Start: 04-23-2023 Telephone encounter Branden Ball FP [facility] Start: 04-22-2023 End: 04-22-2023 ambulatory Branden Ball Other [employer] Other Start: 04-22-2023 Telephone encounter Branden Ball FP [facility] Start: 04-17-2023 End: 04-17-2023 ambulatory Branden Ball Other [employer] Other Start: 04-17-2023 Telephone encounter Branden Ball FP [facility] Start: 04-12-2023 End: 04-12-2023 ambulatory Branden Ball Other [employer] Other Start: 04-12-2023 Office outpatient vi sit 15 minutes Branden Ball [facility] Start: 04-12-2023 Telephone encounter Branden Ball FP [facility] Start: 04-12-2023 End: 04-12-2023 Patient encounter procedure DO Branden Ball Work Phone: [facility] Start: 04-08-2023 End: 04-08-2023 ambulatory Branden Ball Other [employer] Other Start: 04-08-2023 Telephone encounter Branden Ball FP [facility] Start: 04-01-2023 End: 04-01-2023 ambulatory Branden Ball Other [employer] Other Start: 04-01-2023 Telephone encounter Branden Ball FP [facility] Start: 03-27-2023 End: 03-27-2023 ambulatory Branden Ball Other [employer] Other Start: 03-27-2023 Telephone encounter Branden Du FP [facility] Start: 03-26-2023 End: 03-26-2023 ambulatory Branden Ball Other [employer] Other Start: 03-26-2023 Office outpatient vi sit 15 minutes Branden Ball [facility] Start: 03-26-2023 End: 03-26-2023 Patient encounter procedure DO Branden Ball Work Phone: [facility] Work Phone: Start: 03-14-2023 End: 03-14-2023 ambulatory Branden Ball Other [employer] Other Start: 03-14-2023 Telephone encounter Branden Ball FP [facility] Start: 02-19-2023 End: 02-19-2023 ambulatory Branden Ball Other [employer] Other Start: 02-19-2023 Telephone encounter Branden Du FP [facility] Start: 02-08-2023 End: 02-08-2023 ambulatory Branden Du Other [employer] Other Start: 02-08-2023 Patient encounter procedure Branden Du [facility] Start: 02-08-2023 End: 02-08-2023 Patient encounter procedure DO Branden Du Work Phone: [facility] Work Phone: Start: 09-20-2022 End: 09-20-2022 ambulatory Branden Du Other [employer] Other Start: 09-20-2022 Telephone encounter Branden Du [facility] Start: 08-27-2022 End: 08-27-2022 ambulatory Branden Du Other [employer] Other Start: 08-27-2022 Office outpatient vi sit 15 minutes Branden Ball [facility] Start: 08-24-2022 End: 08-24-2022 ambulatory Branden Du Other [employer] Other Start: 08-24-2022 Nursing evaluation o f patient and report Branden Du [facility] Start: 07-09-2022 End: 07-09-2022 ambulatory Branden Du Other [employer] Other Start: 07-09-2022 Office outpatient vi sit 15 minutes Branden Ball [facility] Start: 06-12-2022 End: 06-12-2022 ambulatory Branden Philly Other [employer] Other Start: 06-12-2022 Telephone encounter Branden Du [facility] Start: 06-11-2022 End: 06-11-2022 ambulatory Branden Ball Other [employer] Other Start: 06-11-2022 Telephone encounter Branden Philly [facility] Start: 05-22-2022 End: 05-22-2022 ambulatory Branden Du Other [employer] Other Start: 05-22-2022 Telephone encounter Branden Du [facility] Start: 05-21-2022 Office outpatient vi sit 15 minutes Branden Du [facility] Start: 05-21-2022 End: 05-23-[address] BRANDEN DU Facility:[facility] Start: 05-21-2022 End: 05-21-2022 ambulatory [facility] Transport Start: 05-21-2022 End: 05-21-2022 Emergency department patient visit [facility] Emergency Triage, Treat and Transport Comment on above: Arrived Start: 05-04-2022 End: 05-04-2022 ambulatory Branden Du Other [employer] Other Start: 05-04-2022 Telephone encounter Branden Du [facility] Start: 05-03-2022 End: 05-03-2022 ambulatory Branden Du Other [employer] Other Start: 05-03-2022 Telephone encounter Branden Du [facility] Start: 02-08-2022 End: 02-09-[address] BRANDEN DU Facility:[facility] Start: 08-11-2021 End: 08-12-[address] BRANDEN DU Facility:[facility] Procedures Date Procedure Procedure Detail Performing Clinician Start: 10-03-2024 Urine culture Branden Du DO Work Phone: Start: 12-20-2023 Ecg routine ecg w/le ast 12 lds w/i&r Inderjit Frausto DO Work Phone: Start: 11-07-2023 History of [...] of PTCA Inderjit Frausto DO Work Phone: History of percutane ous transluminal coronary angioplasty History of PTCA Inderjit Frausto DO Work Phone: Plan of Treatment Date Care Activity Detail Author Start: 01-27-2025 End: 01-27-2025 Patient encounter procedure 01/27/2025 1:00 PM EST Office Visit [address] [id number] Vanessa Dave, [employer]-RADIOLOGY RESIDENT [address] [facility] [address], [address] [address] [facility] Start: 11-23-2024 Influenza vaccination Influenza Vacc ine (#1) [facility] Start: 11-03-2024 End: 11-03-2024 Patient encounter procedure 11/03/2024 2:00 PM EDT Office Visit [address] [phone] Vanessa Dave, [employer]RADIOLOGY RESIDENT [address] [facility] [address] [place] [address] [facility] Start: 11-03-2024 End: 11-03-2026 US.doppler Lower extremity vein - right Vascular US lower extremity venous duplex right Vascular Ultrasound STAT Localized edema Expected: 11/03/2024 (Approximate), Expires: 11/03/2026 [facility] Work Phone: Comment on above: Expected: 11/03/2024 (Approximate), Expires: 11/03/2026 Start: 10-03-2024 Urine culture [facility] Start: 10-03-2024 Bacteria identified in Urine by Culture Urine Culture [facility] Start: 09-08-2024 End: 09-08-2024 Patient encounter procedure 09/08/2024 1:00 PM EDT Office Visit [facility] [address] [place] [address] Vanessa Dave, [employer]RADIOLOGY RESIDENT [address] [place] [address] [facility] Start: 08-05-2024 End: 08-05-2025 Basic metabolic 2000 panel - Serum or Plasma Basic Metabolic Panel Lab Routine Coronary artery disease, unspecified vessel or lesion type, unspecified whether angina present, unspecified whether benton or transplanted heart Essential hypertension Fatigue, unspecified type Expected: 08/05/2024 (Approximate), Expires: 08/05/2025 [facility] Work Phone: Comment on above: Expected: 08/05/2024 (Approximate), Expires: 08/05/2025 Start: 08-05-2024 End: 08-05-2025 CBC panel - Blood by Automated count CBC Lab Routine Coronary artery disease, unspecified vessel or lesion type, unspecified whether angina present, unspecified whether benton or transplanted heart Essential hypertension Fatigue, unspecified type Expected: 08/05/2024 (Approximate), Expires: 08/05/2025 [facility] Work Phone: Comment on above: Expected: 08/05/2024 (Approximate), Expires: 08/05/2025 Start: 08-05-2024 End: 08-05-2025 Thyrotropin [Units/volume] in Serum or Plasma Thyroid Stimulating Hormone Lab Routine Coronary artery disease, unspecified vessel or lesion type, unspecified whether angina present, unspecified whether benton or transplanted heart Essential hypertension Fatigue, unspecified type Expected: 08/05/2024 (Approximate), Expires: 08/05/2025 [facility] Work Phone: Comment on above: Expected: 08/05/2024 (Approximate), Expires: 08/05/2025 Start: 06-03-2024 COVID-19 Vaccine () COVID-19 Vaccine () [facility] Start: 05-27-2024 End: 05-27-2024 Patient encounter procedure 05/27/2024 10:50 AM EST Office Visit [facility] [address] [place] [address] Inderjit Frausto, DO [address] [place] [address] [facility] Start: 03-11-2024 End: 03-11-2024 Patient encounter procedure 03/11/2024 10:40 AM EST Office Visit [facility] [address] [place] [address] Inderjit Frausto, DO [address] [place] [address] [facility] Start: 11-24-2023 Influenza vaccination Influenza Vacc ine (#1) [facility] Start: 10-29-2023 [facility] Start: 10-27-2023 Consultation [facility] Start: 10-27-2023 Hospital admission [facility] Start: 10-27-2023 Referral to cardiac rehabilitation program [facility] Start: 10-27-2023 [facility] Start: 10-27-2023 End: 10-27-2023 [facility] Start: 10-27-2023 Dilation of Coronary Artery, One Artery with Drug-eluting Intraluminal Device, Percutaneous Approach Dilation of Coronary Artery, One Artery with Drug-eluting Intraluminal Device, Percutaneous Approach [facility] Start: 10-27-2023 Fluoroscopy of Left Heart using Low Osmolar Contrast Fluoroscopy of Left Heart using Low Osmolar Contrast [facility] Start: 10-27-2023 Fluoroscopy of Multi ple Coronary Arteries using Low Osmolar Contrast Fluoroscopy of Multiple Coronary Arteries using Low Osmolar Contrast [facility] Start: 10-27-2023 Measurement of Cardi ac Sampling and Pressure, Left Heart, Percutaneous Approach Measurement of Cardiac Sampling and Pressure, Left Heart, Percutaneous Approach [facility] Start: 05-21-2023 Patient referral [facility] Work Phone: Start: 04-29-2023 COVID-19 Vaccine () COVID-19 Vaccine () [facility] Start: 12-23-2021 Influenza vaccination Influenza Vacc ine (#1) [facility] Start: 2005 Pneumococcal vaccination Pneum ococcal Vaccine(s) (65+ yrs) (1 - PCV) [facility] Start: 2005 Screening for osteoporosis [facility] Start: 1990 Shingles (RZV) Vacci ne (1 of 2) Shingles (RZV) Vaccine (1 of 2) [facility] Start: 1962 DTaP/Tdap/Td Vaccine s (1 - Tdap) DTaP/Tdap/Td Vaccines (1 - Tdap) [facility] Start: 1958 Tetanus + diphtheria + acellular pertussis vaccine (product) Tdap Booster [facility] Start: 04-24-1941 COVID-19 Vaccine (#1) COVID-19 Vacci ne (#1) [facility] Start: 1940 Basic metabolic 2000 panel - Serum or Plasma Basic Metabolic Panel [facility] Start: 1940 Lipid panel Lipid Panel [facility] Start: 1940 Medicare Annual Well ness Visit Medicare Annual Wellness Visit (AWV) [facility] Start: 1940 Screening for osteoporosis Bone Density Scan [facility] Comprehensive metabo lic 2000 panel - Serum or Plasma [facility] CT Chest WO contrast [facility] Chest WO contrast [facility] MG Breast - bilatera l Screening [facility] MR Shoulder - right WO contrast [facility] Patient Education Coronary Angio plasty (DC) Coronary Stenting (DC) Angina (DC) Chest Pain (DC) Drug Eluting Stents Know your Meds [facility] Work Phone: Patient referral [facility] Work Phone: XR Cervical spine Vi ews W flexion and W extension [facility] Immunizations Immunization Date Immunization Notes Care Provider Fa cilianum 12-05-2023 Moderna COVID-19 vaccine, 12 years and older (50mcg/0.5mL)(Spikevax ) Inderjit Frausto DO Work Phone: [facility] Work Phone: 12-04-2023 influenza, high dose seasonal, preservative-free FLAKITA Álvarez Work Phone: [facility] 12-04-2023 influenza virus vaccine, unspecified formulation Vanessa Dave BOAT PULLER-RADIOLOGY RESIDENT Work Phone: [facility] Work Phone: 05-06-2023 zoster vaccine recombinant Inderjit Frausto DO Work Phone: [facility] Work Phone: 12-27-2022 Influenza, Seasonal, Quadrivalent, Adjuvanted Vanessa Dave BOAT PULLER-RADIOLOGY RESIDENT Work Phone: [facility] Work Phone: 12-27-2022 Pfizer COVID-19 vaccine, 12 years and older, (30mcg/0.3mL) (Comirnaty) Inderjit Frausto DO Work Phone: [facility] Work Phone: 12-27-2022 RESPIRATORY SYNCYTIA L VIRUS (RSV), ELIGIBLE PTS, 0.5 ML (ABRYSVO) Inderjit Frausto DO Work Phone: [facility] Work Phone: 12-27-2022 influenza virus vaccine, unspecified formulation Inderjit Frausto DO Work Phone: [facility] Work Phone: 08-06-2022 Pneumococcal conjuga te vaccine, 20-valent (PREVNAR 20) Inderjit Frausto DO Work Phone: [facility] Work Phone: 08-06-2022 zoster vaccine recombinant Inderjit Frausto DO Work Phone: [facility] Work Phone: 12-27-2021 Moderna COVID-19 vaccine, bivalent, blue cap/grady label *Check age/dose* Inderjit Frausto DO Work Phone: [facility] 12-13-2021 influenza virus vaccine, split virus (incl. purified surface antigen) Branden Philly Other [employer] Other 12-13-2021 influenza virus vaccine, unspecified formulation DO Branden Du Work Phone: [facility] 12-13-2021 Influenza, Seasonal, Quadrivalent, Adjuvanted Vanessa Dave BOAT PULLER-RADIOLOGY RESIDENT Work Phone: [facility] Work Phone: 12-14-2020 influenza virus vaccine, split virus (incl. purified surface antigen) Branden Philly Other [employer] Other 12-14-2020 influenza virus vaccine, unspecified formulation DO Branden Du Work Phone: [facility] 12-14-2020 Seasonal trivalent influenza vaccine, adjuvanted, preservative free Vanessa Dave BOAT PULLER-RADIOLOGY RESIDENT Work Phone: [facility] Work Phone: 12-04-2019 influenza virus vaccine, split virus (incl. purified surface antigen) Branden Du Other [employer] Other 12-04-2019 influenza virus vaccine, unspecified formulation DO Branden Du Work Phone: [facility] 12-16-2018 influenza virus vaccine, split virus (incl. purified surface antigen) Branden Du Other [facility] [employer] Other 12-16-2018 influenza virus vaccine, unspecified formulation DO Branden Du Work Phone: [facility] 01-15-2018 influenza virus vaccine, split virus (incl. purified surface antigen) Branden Du Other [employer] Other 01-15-2018 influenza virus vaccine, unspecified formulation DO Branden Du Work Phone: [facility] 01-15-2018 influenza, injectabl e, quadrivalent, contains preservative Vanessa Dave BOAT PULLER-RADIOLOGY RESIDENT Work Phone: [facility] Work Phone: 01-12-2017 influenza virus vaccine, split virus (incl. purified surface antigen) Branden Du Other [facility] 01-12-2017 influenza virus vaccine, unspecified formulation DO Branden Du Work Phone: [facility] 12-27-2015 influenza virus vaccine, split virus (incl. purified surface antigen) Branden Du Other [facility] [facility] Other 12-27-2015 influenza virus vaccine, unspecified formulation DO Branden Du Work Phone: [facility] 12-27-2015 influenza, high dose seasonal, preservative-free Inderjit Jett DO Work Phone: [facility] Work Phone: 01-28-2015 pneumococcal conjuga te vaccine, 13 valent Branden Du Other [facility] 12-16-2014 influenza, high dose seasonal, preservative-free Inderjit Bacadon DO Work Phone: [facility] Work Phone: 05-26-2010 zoster vaccine, live Inderjit Jett DO Work Phone: [facility] Work Phone: 03-08-2009 novel [id number], preservative-free, injectable Vanessa Dave BOAT P[employer]ER[employer]RADIOLOGY RESIDENT Work Phone: [facility] Work Phone: Payers Date Payer Category Payer Unknown [id number] 2023 Self-pay 2023 Medicare supplementa l policy (as second payer) [employer] [id number] 2022 Unknown [id number] 2022 Unknown [id number] 2005 Medicare [id number] 1959 Medicare [id number] 1959 Unknown [id number] 1940 Unknown [id number] [id number]. 2.593 1940 Unknown [id number] 2.16.840.1.303436.3.579. 2.593 1940 Unknown [id number] 2.16.840.1.576126.3.579. 2.593 1940 Unknown [id number] 2.16.840.1.980283.3.579. 2.732 1940 Unknown [id number] 2.16.840.1.128609.3.579. 2.1259 1940 Unknown [id number] 2.16.840.1.984281.3.579. 2.1244 1940 Unknown [id number] 2.16.840.1.425311.3.579. 2.124 1940 Unknown [id number] 2.16.840.1.872013.3.579. 2.124 1940 Unknown [id number] 2.16.840.1.784175.3.579. 2.124 1940 Unknown [id number] 2.16.840.1.711317.3.579. 2.124 1940 Unknown [id number] [id number]. 2.1244 Medicare Medicare [id number] Unknown [id number] 2.840.1.481305.3.579. 2.531 Unknown [id number] [id number]. 2.531 Unknown [id number] [id number]. 2.531 Social History Date Type Detail Facility Tobacco smoking status NEIS Tobacco smoking consumption unknown [facility] Start: 1940 Sex Assigned At [facility] on file [facility] Start: 12-20-2023 End: 11-03-2024 Sex Assigned At [place] [email or web address] Other Start: 1940 Sex Assigned At Female F [facility] Start: 06-20-2023 Tobacco smoking status NEIS Never smoked tobacco (finding) [facility] Start: 10-27-2023 End: 08-18-2024 Tobacco smoking status NEIS Ex-smoker (finding) [facility] Start: 11-05-2023 Tobacco smoking status NHIS Current some day smoker [facility] Start: 03-25-1956 History of tobacco use Current smoker [facility] Work Phone: Start: 03-25-1956 History of tobacco use Cigarette Smoker [facility] Work Phone: Start: 11-07-2023 End: 11-03-2024 Tobacco use and exposure Smokeless tobacco non-user [facility] Work Phone: Start: 11-07-2023 End: 11-03-2024 Alcoholic beverage intake Current drinker of alcohol (finding) [facility] Work Phone: Start: 10-28-2023 End: 08-05-2024 Exposure to SARS-CoV-2 (event) Not sure [facility] Start: 12-20-2023 End: 11-03-2024 Alcoholic beverage intake [facility] Work Phone: Start: 05-12-2024 End: 08-19-2024 Sex Female (finding) [facility] Start: 02-17-2022 Sex Female [facility] Medical Equipment Procedure Code Equipment Code Equipment Origin al Text Equipment Identifier Dates CL STENT PEDRO FRONTIER 4.0 X 18 FDA Start: 10-27-2023 Femoral artery closure plug/patch, synthetic polymer ()[id number] FDA Start: 10-27-2023 CL STENT PEDRO FRONTIER [...] Facility 10-29-2023 Functional status Patient at Baseline [facility] Work Phone: Mental Status Date Assessment Result Facility 10-29-2023 Cognitive function Cognitive Sta tus Patient at Baseline [facility] Work Phone: Clinical Notes 05-04-2022 to 11-03-2024 Assessment & Plan Note - ROLAND Becerril - 11/03/2024 2:22 PM EDTAssessment & Plan Note - ROLAND Becerril - 11/03/2024 2:22 PM EDTPatient InstructionsPatient Instructions Note Date & Type Note Facility 11-03-2024 Evaluation + Plan note Associated Problem(s): Localized edema After flight to [place] has noticed RLE pedal edema and calf pain. Will get USN to rule out DVT [facility] Work Phone: 11-03-2024 Miscellaneous Notes Associated Problem(s): Localized edema After flight to [place] has noticed RLE pedal edema and calf pain. Will get USN to rule out DVT documented in this encounter [facility] Work Phone: 11-03-2024 History of Presen t illness Narrative Subjective: Genny Barboza is a 84 y.o. [...] home. Otherwise, she just recently traveled to [place] and has noted some right pedal edema, she has some right calf discomfort positive Homans' sign. No shortness [...] Wt 65.3 kg (144 lb) BMI 27.21 kg/m Appearance alert, well appearing, and in no [...] positive Joaquin. Equal peripheral pulses. No open wounds. Recent travel to [place]. Plan: Through informed decision making process incorporating [...] contact the office if new symptoms arise. 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 as scheduled Vanessa Dave MSN, BOAT PULLER-RADIOLOGY RESIDENT, PMHNP-BC [facility] [place], [place] Please excuse any errors in grammar or translation related to this dictation. Voice recognition software was utilized to prepare this document. documented in this encounter [facility] Work Phone: 11-03-2024 Instructions ROLAND Becerril - 11/03/2024 2:00 PM EDT [...] contact the office if new symptoms arise. 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 as scheduled documented in this encounter [facility] Work Phone: 09-30-2024 Evaluation + Plan [...] we will transition Lopressor over to carvedilol. [facility] Work Phone: 09-30-2024 Miscellaneous Notes Associated [...] over to carvedilol. documented in this encounter [facility] Work Phone: 09-30-2024 Evaluation + Plan note Associated Problem(s): BMI 26.0-26.9,adult Reviewed the merits of healthy lifestyle choices on overall cardiovascular health. [facility] Work Phone: 09-30-2024 Evaluation + Plan note Associated Problem(s): Essential hypertension Her dose of Lopressor was down titrated due to fatigability. Blood pressure is borderline in the office. She was noted to have improvement in fatigue with down titration of Lopressor, will discontinue and transitioned over to carvedilol. [facility] Work Phone: 09-29-2024 History of Presen t [...] contact the office if new symptoms arise. 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 Vanessa Dave MSN, BOAT PULLER-RADIOLOGY RESIDENT, PMHNP-[facility] [place], [place] Please excuse any errors in grammar or translation related to this dictation. Voice recognition software was utilized to prepare this document. documented in this encounter [facility] Work Phone: 09-29-2024 Instructions ROLAND Becerril [...] contact the office if new symptoms arise. 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 documented in this encounter [facility] Work Phone: 08-19-2024 Evaluation note Diagnosis Onset Date Resolution Cervical spondylosis acute August 19, 2024 1:30pm Neck pain acute August 19, 2024 1:30pm Seborrheic dermatitis acute August 19, 2024 1:30pm Lung nodule acute September 29 1:13pm Cervical spondylosis with radiculopathy acute November 04, 2024 1:56pm Neck pain acute November 04, 2 025 1:56pm [facility] Work Phone: 1(773) 174-449705-15-2025 Evaluation + Plan note* Assessment & Plan Note - ROLAND Becerril - 08/06/2024 9:41 AM EDTAssociated Problem(s): Shortness of breath She originally called into the office reporting shortness of breath. She reported shortness of breath with going up 1 flight of stairs this is probably ongoing for about 2 weeks but over the last 10 days the symptoms for the most part have abated. She was able to come in from the parking lot without concerns. [facility] Work Phone: 1(213) 619-563705-15-2025 Evaluation + Plan note* Assessment & Plan Note - ROLAND Becerril - 08/06/2024 9:41 AM EDTAssociated Problem(s): Fatigue Presents to the office today with complaints of ongoing fatigability and having no energy . Symptoms started close to 4 weeks ago. Her prior angina symptom was a strange chest sensation and she denies any reoccurrence. [facility] Work Phone: [phone]) 507-783205-15-2025 Miscellaneous Notes* Assessment & Plan Note - ROLAND Becerril - 08/06/2024 9:41 AM EDTAssociated Problem(s): Shortness of breath She originally called into the office reporting shortness of breath. She reported shortness of breath with going up 1 flight of stairs this is probably ongoing for about 2 weeks but over the last 10 days the symptoms for the most part have abated. She was able to come in from the parking lot without concerns. * Assessment & Plan Note - ROLAND Becerril - 08/06/2024 9:41 AM EDT Associated Problem(s): Fatigue Presents to the office today with complaints of ongoing fatigability and having no energy . Symptoms started close to 4 weeks ago. Her prior angina symptom was a strange chest sensation and she denies any reoccurrence. * Assessment & Plan Note - ROLAND Becerril - 08/06/2024 9:40 AM EDT Associated Problem(s): BMI 27.0-27.9,adult Reviewed the merits of healthy lifestyle choices on overall cardiovascular health. * Assessment & Plan Note - ROLAND Becerril - 08/06/2024 9:40 AM EDT Associated Problem(s): Essential hypertension Optimal in office * Assessment & Plan Note - ROLAND Becerril - 08/06/2024 9:40 AM EDT Associated Problem(s): Hyperlipidemia High intensity statin * Assessment & Plan Note - ROLAND Becerril - 08/06/2024 9:40 AM EDT Associated Problem(s): CAD (coronary artery disease) Oct 26, 2024 Inferior STEMI pRCA PCI/[place] 4 x 18 mm mLAD mild intramyocardial bridging O/p Diag 75% small/moderate vessel OM none EF 60% [facility]: [phone]) 628-858305-15-2025 Evaluation + Plan note* Assessment & Plan Note - ROLAND Becerril - 08/06/2024 9:40 AM EDTAssociated Problem(s): BMI 27.0-27.9,adult Reviewed the merits of healthy lifestyle choices on overall cardiovascular health. [facility] Work Phone: 1(612) 748-597105-15-2025 Evaluation + Plan note* Assessment & Plan Note - ROLAND Becerril - 08/06/2024 9:40 AM EDTAssociated Problem(s): Essential hypertension Optimal in office [facility] Work Phone: [phone]) 920-510405-15-2025 Evaluation + Plan note* Assessment & Plan Note - ROLAND Becerril - 08/06/2024 9:40 AM EDTAssociated Problem(s): Hyperlipidemia High intensity statin [facility] Work Phone: [phone] 292-179005-15-2025 Evaluation + Plan note* Assessment & Plan Note - ROLAND Becerril - 08/06/2024 9:40 AM EDTAssociated Problem(s): CAD (coronary artery disease) Oct 26, 2024 Inferior STEMI pRCA PCI/[place] 4 x 18 mm mLAD mild intramyocardial bridging O/p Diag 75% small/moderate vessel OM none EF 60% [facility] Work Phone: 1([phone]) 725-489405-14-2025 History of Present illness Narrative* ROLAND Becerril - 08/05/2024 2:00 PM EDT Chief Complaint I just not been feeling like myself Reason for Visit Add-on Patient presents to the office today for outpatient follow-up for shortness of breath and fatigability. Last evaluated in clinic by Dr. Frausto May 2024. At that time, patient was [...] symptoms have abated over the last 10 days.She goes on to report ongoing lack of energy, fatigability and just not feeling like myself . She usually likes to work out in her garden but simply has no energy to go out there. She reports her angina symptom on the day of [place] was just a strange sensation, denies any reoccurrence. She denies palpitations. There is no melena hematochezia. Blood pressure is optimal in the office. She denies any type of viral illness. Fortunately her shortness of breath has resolved. She came infrom the parking lot without no concerns. Ongoing [...] disease) Oct 26, 2024 Inferior STEMI pRCA PCI/[place] 4 x 18 mm mLAD mild intramyocardial [...] warranted and to continue withfollowing modifications: - Reduce lopressor 12.5mg twice daily 2. Labs (chem6, CBC, TSH) 3. Return for follow-up; in the interim, contact the office if new symptoms arise. 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 Vanessa Dave MSN, BOAT PULLERRakeshRADIOLOGY RESIDENT, PMHNP-[facility] [place], [place] Please excuse any errors in grammar or translation related to this dictation. Voice recognition software was utilized to prepare this document. documented in this [facility] Work Phone: 1(476) 485-717105-14-2025 Instructions* Patient Instructions* ROLAND Becerril - 08/05/2024 2:00 PM EDT [...] warranted and to continue withfollowing modifications: - Reduce lopressor 12.5mg twice daily 2. Labs (chem6, CBC, TSH) 3. Return for follow-up; in the interim, contact the office if new symptoms arise. 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 documented in this [facility] Work Phone: 1(841) 212-221104-28-2025 Evaluation note* Diagnosis Onset Date Resolution Status Admit Date Diarrhea acute July 20 10:57am Gastroesophageal reflux dise ase with esophagitis without hemorrhage acute July 20, 2024 10:57am History of colon cancer acute A pril 2024 10:57am IBS (irritable bowel syndrome) acute July 20, 2024 10:57am Intermittent abdominal pain acute July 20, 2024 10:57am [facility] Work Phone: 1(375) 116-184504-28-2025 Evaluation note* Diagnosis Onset Date Resolution Status [...] Seborrheic dermatitis acute August 19, 2024 1:30pm [facility] Work Phone: [phone]) 136-167004-28-2025 Evaluation note* Diagnosis Onset Date Resolution Status Admit Date Diarrhea acute July 20 10:57am Gastroesophageal reflux dise ase with esophagitis without hemorrhage acute July 20, 2024 10:57am History of colon cancer acute A pri2024 10:57am IBS (irritable bowel syndrome) acute July 20, 2024 10:57am Intermittent abdominal pain acute July 20, 2024 10:57am Cervical spondylosis acute August 19, 2024 1:30pm Neck pain acute August 19, 2024 1:30pm Seborrheic dermatitis acute August 19, 2024 1:30pm Lung nodule acute September 29 1:13pm [facility] Work Phone: [phone] 641-424403-05-2025 History of Present illness Narrative* Inderjit Frausto DO - 05/27/2024 10:50 AM EST Subjective Genny Barboza is a 83 y.o. female Chief Complaint Follow-up; Coronary Artery Disease 83-year-old female returns for follow-up she is doing very well, she has traveled to [place] in [place] and is getting in 12,000 steps daily. [...] type, unspecified whether angina present, unspecified whether benton or transplanted heart Follow Up In Cardiology 2. History of ST elevation myocardial infarction (STEMI) 3. History of PTCA 4. Hyperlipidemia, unspecified hyperlipidemia type 5. Essential hypertension 6. BMI 27.0-27.9,adult 7. Former smoker Scribe Attestation By signing my name below, IJacque RN , Scribe attest that this documentation has been prepared under the direction and in the presence of Blanche Frausto DO. Provider Attestation - Scribe documentation All medical record entries made by the Scribe were at my direction and personally dictated by me. Ihave reviewed the chart and agree that the record accurately reflects my personal performance of the history, physical exam, discussion and plan. documented in this [facility] Work Phone: 1(558) 601-164303-05-2025 Instructions* Patient Instructions* Jacque Quesada RN - 05/27/2024 10:50 AM EST Please [...] Provided instructions on exercise. documented in this [facility] Work Phone: 1(808) 333-681502-18-2025 Evaluation note* Diagnosis Onset Date Resolution Status Admit Date Lung nodule acute April 1:24pm Rotator cuff arthropathy of right shoulder acute May 12 025 1:24pm Right shoulder pain noneactive Febru jaron 2024 1:24pm Diarrhea acute July 20 10:57am Gastroesophageal reflux disease with esophagitis without hemorrhage acute July 20 025 10:57am History of colon cancer acute A pril 2024 10:57am IBS (irritable bowel syndrome) acute July 20, 2024 10:57am Intermittent abdominal pain acute July 20, 2024 10:57am [facility] Work Phone: 1([phone]) 945-728012-16-2024 Evaluation note* Diagnosis Onset Date Resolution Status Admit Date ASHD (arteriosclerotic heart disease) acute March 09 2 024 3:47pm Hypercholesterolemia acute Dece mber 2023 3:47pm IBS (irritable bowel syndrome) acute March 09, 2024 3:47pm Lung nodule acute February 3:47pm Medicare annual wellness vis it, subsequent acute March 09, 2 024 3:47pm Nicotine addiction acute Decemb er 2023 3:47pm Primary hypertension acute Dece mber 2023 3:47pm Screening mammogram for laura st cancer acute March 09 2 024 3:47pm Diarrhea acute March 11, 2024 1:00pm Fecal urgency acute March 112023 1:00pm Gastroesophageal reflux dise ase with esophagitis without hemorrhage acute March 11 024 1:00pm History of colon cancer acute D ec2023 1:00pm History of colon resection acute March 11, 2024 1:00pm IBS (irritable bowel syndrome) acute March 11, 2024 1:00pm Intermittent abdominal pain acute March 11, 2024 1:00pm Abnormal CT scan of lung acute March 12, 2024 10:33am Lung nodule acute April 1:24pm Rotator cuff arthropathy of right shoulder acute May 12 025 1:24pm Right shoulder pain noneactive Febru jaron 2024 1:24pm [facility] Work Phone: 1(352) 146-755609-27-2024 History of Present illness Narrative* Inderjit Frausto, DO - 12/20/2023 10:35 AM EDT Subjective Genny Barboza is a 83 y.o. [...] type, unspecified whether angina present, unspecified whether benton or transplanted heart 8. Former smoker 9. BMI 27.0-27.9,adult Scribe Attestation By signing my name below, IJacque RN , Scribe attest that this documentation has been prepared under the direction and in the presence of Blanche Frausto DO. Provider Attestation - Scribe documentation All medical record entries made by the Scribe were at my direction and personally dictated by me. Ihave reviewed the chart and agree that the record accurately reflects my personal performance of the history, physical exam, discussion and plan. documented in this [facility] Work Phone: 1(647) 166-807409-27-2024 Instructions* Patient Instructions* Jacque Quesada RN - [...] pill each day after. documented in this [facility] Work Phone: 1(946) 261-429108-15-2024 History of Present illness Narrative* Inderjit Mitul Jett, DO - 11/07/2023 9:40 AM EDT Subjective Genny Barboza is a 83 y.o. [...] type, unspecified whether angina present, unspecified whether benton or transplanted heart 2. History of PTCA 3. History of ST elevation myocardial infarction (STEMI) 4. Shortness of breath 5. Former smoker 6. BMI 26.0-26.9,adult 7. Hyperlipidemia, unspecified hyperlipidemia type Scribe Attestation By signing my name below, I, Stiven Fajardo LPN attest that this documentation has been prepared under the direction and in the presence of Blanche Frausto DO. Provider Attestation - Scribe documentation All medical record entries made by the Scribe were at my direction and personally dictated by me. Ihave reviewed the chart and agree that the record accurately reflects my personal performance of the history, physical exam, discussion and plan. [facility]: 1(858) 576-859308-15-2024 Instructions* Patient Instructions* Kacy Norris LPN - [...] instructions on dietary changes. [facility] Work Phone: 1(137) 441-790008-05-2024 Consult note Author Sobia Okeefe [facility] October 28, 2023 8:55pm Note Date/Time October 28, 2023 8:5 5pm [facility] [address] [place] [address] Pulmonology Consult Note Signed Patient: Genny Barboza MR#: [id number] 3012 : 1940 Acct:[id number] Age/Sex: 83 / F Adm Date: 4 Loc: Room: [address] [place] [address] Type: ADM IN Attending Dr: Reji Frausto [...] an inferior STEMI, emergently brought to the cardiac catheterization technician and found to have RCA with 99% stenosis, s/p PCI, did well was transferred to ICU without needing intubation or hemodynamic support. Currently on RA, on ASA, Brilinta, BB, statin, ROBIN. Review of Systems Constitutional Constitutional: Reports as per HPI Cardiovascular Cardiovascular: Reports as per HPI and Reports chest pain at rest [facility] Medical History Lung nodule CT: 1.7cm [...] <Electronically signed by Sobia Okeefe MD> 10/28/232054 [facility] Work Phone: 1(411) 679-495408-05-2024 Progress note Author Reji Frausto [facility] October 28, 2023 11:54am Note Date/Time October 28, 2023 11: 54am [facility] [address] [place] [address] Cardiology Progress Note Signed Patient: Genny Barboza MR#: [id number] 3012 : 1940 Acct:[id number] Age/Sex: 83 / F Adm Date: 4 Loc: Room: [address] [place] [address] Type: ADM IN Attending Dr: Reji Frausto [...] administered under my direction, patient arrived in [employer] at 1756 and underwent primary PCI at [...] critical care time were devoted to ER staff,Retail Shift Manager staff, nursing staff, patient and family both [...] Room Air 10/28/23 09:00 10/28/23 10:10/28/23 10:10/28/23 10:10/28/23 10:10/28/23 10:00 Const General: cooperative, healthy appearing, [...] % (Auto) 63.6 Lymph % (Auto) 25.7 [place] % (Auto) 8.7 Eos % (Auto) 0.7 Baso % (Auto) 1.3 Nucleat RBC Rel Count 0.1 Neut # (Auto) 5.5 Lymph # (Auto) 2.2 [place] # (Auto) 0.7 Eos # (Auto) 0.1 [...] Troponin I High Sens 10.2 6295.7 H* 37534.3 H* B-Natriuretic Peptide 124.0 H Total Protein [...] % (Auto) 68.0 Lymph % (Auto) 20.4 [place] % (Auto) 10.2 Eos % (Auto) 0.5 Baso % (Auto) 0.9 Nucleat RBC Rel Count 0.1 Neut # (Auto) 5.7 Lymph # (Auto) 1.7 [place] # (Auto) 0.9 H Eos # (Auto) [...] Total Creatine Kinase Troponin I High Sens 58954.9 H* 25196.0 H* 71958.4 H* B-Natriuretic Peptide Total Protein Albumin Globulin [...] signed by Reji Frausto DO> 10/28/23 1154 [facility] Work Phone: 1(861) 622-611008-04-2024 History and physical note Author Reji Frausto [facility] October 27, 2023 6:21pm Note Date/Time October 27, 2023 5:5 1pm [facility] [address] [place] [address] Cardiology H&P Signed Patient: Genny Barboza MR#: [id number] 3012 : 1940 Acct:[id number] Age/Sex: 83 / F Adm Date: 4 Loc: Room: Type: [facility] Attending Dr: Reji Frausto DO Copies [...] administered under my direction, patient arrived in [employer] at 1756 and underwent primary PCI at [...] critical care time were devoted to ER staff,Retail Shift Manager staff, nursing staff, patient and family both pre and post procedurally. 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: Code(s): I21.19 - ST elevation (STEMI) myocardial infarction involving other coronary artery of inferior wall Plan Proceed with emergency cath and PCI Documented By: Reji Frausto DO 10/27/23 1750 Signed By: <Electronically signed by Reji Frausto DO> 10/27/23 3829 [facility] Work Phone: 1(617) 940-335008-04-2024 [facility] Procedure note [facility]01-30-2024 Evaluation note* Encounter Date Diagnosis Assessment Notes Treatment Notes Treatment Clinical Notes Mar, Primary hypertension (ICD-10 - I10) [facility] 01-29-2024 Evaluation note* Encounter Date Diagnosis Assessment Notes Treatment Notes Treatment Clinical Notes Mar, Lung nodule (ICD-10 - R91.1) [facility] Other 01-24-2024 Evaluation note* Encounter Date Diagnosis Assessment Notes Treatment Notes Treatment Clinical Notes Mar, Lung mass (ICD-10 - R91.8) [facility] Other 01-19-2024 Evaluation note* Encounter Date Diagnosis Assessment Notes Treatment Notes Treatment Clinical Notes Mar, Fall, initial encounter (ICD-10 - W19.XXXA) She denies CP, DASILVA, palpitations or lightheadedness Tripped over her shoe laces Fall precautions Mar, Right arm pain (ICD-10 - M79.601) Not sure how she landed. Ice, heat Mar, Contusion of right upper extremity, initial encounter (ICD-10 - S40.021A) [facility] Other 01-15-2024 Evaluation note* Encounter Date Diagnosis Assessment Notes Treatment Notes Treatment Clinical Notes Mar, Left lower quadrant abdominal pain (ICD-10 - R10.32) Mar, Diarrhea, unspecified type (ICD-10 - R19.7) [facility] 01-08-2024 Evaluation note* Encounter Date Diagnosis Assessment Notes Treatment Notes Treatment Clinical Notes Mar, Irritable bowel syndrome without diarrhea (ICD-10 - K58.9) [facility] Other 01-02-2024 Evaluation note* Encounter Date Diagnosis [...] would refer for colonoscopy to exclude colitis [facility] Other 12-21-2023 Evaluation note* Encounter Date Diagnosis Assessment Notes Treatment Notes Treatment Clinical Notes Feb, Gastroesophageal ref lux disease with esophagitis without hemorrhage (ICD-10 - K21.00) [facility] Other 11-28-2023 Evaluation note* Encounter Date Diagnosis Assessment Notes Treatment Notes Treatment Clinical Notes Jan, Dysuria (ICD-10 - R30.0) [facility] Other 11-17-2023 Evaluation note* Encounter Date Diagnosis [...] patient on monthly SBE and yearly mammograms. [facility] Other 06-29-2023 Evaluation note* Encounter Date Diagnosis Assessment Notes Treatment Notes Treatment Clinical Notes Aug, Primary hypertension (ICD-10 - I10) [facility] Other 06-05-2023 Evaluation note* Encounter Date Diagnosis [...] best 2/3 readings w/ goal < 135-85 [facility] Other 06-02-2023 Evaluation note* Encounter Date Diagnosis Assessment Notes Treatment Notes Treatment Clinical Notes Aug, Dysuria (ICD-10 - R30.0) [facility] 04-17-2023 Evaluation note* Encounter Date Diagnosis Assessment Notes Treatment Notes Treatment Clinical Notes Jun, Primary hypertension (ICD-10 - I10) This patient is instructed to consume a healthy, low-fat, low-salt diet. They are also encouraged to continue exercise to achieve/maintain a normal BMI. Jun, Nicotine dependence, cigarettes, in remission (ICD-10 - F17.211) Continue abstinence [facility] 03-21-2023 Evaluation note* Encounter Date Diagnosis Assessment Notes Treatment Notes Treatment Clinical Notes May, Primary hypertension (ICD-10 - I10) [facility] Other 03-20-2023 Evaluation note* Encounter Date Diagnosis Assessment Notes Treatment Notes Treatment Clinical Notes May, Primary hypertension (ICD-10 - I10) [facility] Other 02-28-2023 Evaluation note* Encounter Date Diagnosis Assessment Notes Treatment Notes Treatment Clinical Notes Apr, Primary hypertension (ICD-10 - I10) [facility] Other 02-27-2023 Evaluation note* Encounter Date Diagnosis [...] - F17.211) Continue abstinence Apr, Other REo [facility] Other 02-27-2023 History of Present illness Narrative* Sudheer Haro MD - 05/21/2022 10:00 AM EST Images from the original note were not included. EMERGENCY TRIAGE, TREAT AND TRANSPORT (ET3) DOCUMENTATION OF TELEHEALTH VISIT Date / Time: 05/21/2022944 Name: Genny Barboza : 1940 SSN: (Not on file) EMS Agency: [facility] [x] Verbal consent obtained [] Implied [...] minutes will take to get to the [place] ER. I advised her to call 911 [...] by: Sudheer Haro MD documented in this [id number] Evaluation note* Encounter Date Diagnosis Assessment Notes Treatment Notes Treatment Clinical Notes Apr, Nausea (ICD-10 - R11.0) [facility] Other Discharge summary Author Reji Frausto [facility] October 29, 2023 3:50pm Note Date/Time October 29, 2023 3:4 8pm [facility] [address] [place] [address] Discharge Summary Signed Patient: Genny Barboza MR#: [id number] 3012 : 1940 Acct:[id number] Age/Sex: 83 / F Adm Date: 4 Loc: Room: [address] [place] [address]: Reji Frausto DO Copies to: DO Reji Soni DO~ Providers Date of Discharge: 10/29/23 Discharging Provider: Reji Frausto Primary Care Provider: Bradnen Du Consults: 10/27/23 19:53 Consult to Pulmonology [...] proximal RCA with 4 x 18 mm [place] stent 5. Preserved LV function 6. Essential hypertension Summary Hospital Course Hospital course: 83-year-old female presented with acute inferior ST elevation SC on Friday, October 27, 2023 and underwent rapid revascularization of the proximal RCA with large 4 mm drug-eluting stent within 60 minutes. LV function is preserved. Shedoes have small vessel diagonal branch disease that is going to be treated conservatively. She had no postoperative for post SC complications, arrhythmia,heart failure or recurrent angina. She will be discharged this afternoon, currently on aspirin 81 daily, [id number] twice daily, metoprolol 25 twice daily, losartan [...] Closure Device Placement 0 - W Celestino Frausto DO p CL LHC [facility] COR Angio [...] doctor or pharmacist, without first calling the analyst programmer who implanted the stent. If you require [...] weight lifting, stair steppers, etc. until the analyst programmer approves these activities. Check with the analyst programmer on your first follow-up visit. CALL YOUR FERMENTER WINE: -If bleeding should occur from the catheter insertion site- apply pressure to the site then immediately call us. -Report any fever, redness, drainage, increased swelling, or firmness at the catheter insertion site. Some bruising or slight swelling may be present at thetime of discharge. -Should arm or leg become cold, numb, white, or blue, contact the analyst programmer immediately. -IF you should experience episodes of [...] Cardiopulmonary Rehabilitation program is recommended. The attending analyst programmer or a nurse clinician should provide you with specificinstructions regarding activity, diet, medications, and further follow up for you. Follow the medication instructions provided on your discharge. If the dosages and instructions on this sheet differ from the dosage and instructions on the bottle, follow the instructions on the bottle. [facility] is not responsible for incorrect prescription information [...] % (Auto) 73.5, Lymph % (Auto) 15.8, [place] % (Auto) 9.4, Eos % (Auto) 0.6, Baso % (Auto) 0.7, Nucleat RBC Rel Count 0.1, Neut # (Auto) 5.9, Lymph # (Auto) 1.3, [place] # (Auto) 0.8, Eos # (Auto) 0.0, Baso # (Auto) 0.1, PHA Creatinine Clear 41.47, Sodium 138, Potassium 4.0, Chloride 109 H, Carbon Dioxide 24.3, Anion Gap 8.7, BUN 17, Creatinine 0.91, Est GFR (CKD-EPI) > 60.0, Glucose 105 H, Calcium 9.3 Documented By: Reji Frausto DO 10/29/23 1543 Signed By: <Electronically signed by Reji Frausto DO> 10/29/23 1550 [facility] Work Phone: Evaluation note* Diagnosis Hypertensive urgency- Primary [facility] Other Evaluation noteNo assessment information available [facility] Work Phone: Evaluation note* Diagnosis Onset Date Resolution Status Change in bowel habits acute Primary hypertension acute Rotator cuff arthropathy of right shoulder acute Hx of malignant neoplasm of colon noneactive Pain in right shoulder nonea ctive [facility] Work Phone: Evaluation note* Diagnosis Onset Date Resolution Status Change in bowel habits acute Primary hypertension acute Rotator cuff arthropathy of right shoulder acute Hx of malignant neoplasm of colon noneactive Pain in right shoulder nonea ctive Primary hypertension acute Rotator cuff arthropathy of right shoulder acute Pain in right shoulder nonea ctive Change in bowel habits acute [facility] Work Phone: Evaluation note* Diagnosis Onset Date Resolution Status ST elevation myocardial infa rction (STEMI) of inferior wall acute [facility] Work Phone: Evaluation note* Diagnosis Onset Date Resolution Status ASHD (arteriosclerotic heart disease) acute Hypercholesterolemia acute Lung nodule acute Medication side effects acut e Nicotine addiction acute Primary hypertension acute Shortness of breath acute [facility] Work Phone: Evaluation note* Diagnosis Onset Date Resolution Status ASHD (arteriosclerotic heart disease) acute Hypercholesterolemia acute IBS (irritable bowel syndrome) acute Lung nodule acute Nicotine addiction acute Primary hypertension acute ASHD (arteriosclerotic heart disease) acute Hypercholesterolemia acute IBS (irritable bowel syndrome) acute Primary hypertension acute [facility] Work Phone: Evaluation note* Diagnosis Onset [...] bowel syndrome) acute Intermittent abdominal pain acute [facility] Work Phone: Evaluation note* Diagnosis Coronary artery disease, unspecified vessel or lesion type, unspecified whether angina present, unspecified whether benton or transplanted heart History of PTCA Postsurgical percutaneous transluminal coronary angioplasty status History of ST elevation myocardial infarction (STEMI) Shortness of breath Former smoker Personal history of tobacco use, presenting hazards to health BMI 26.0-26.9,adult Hyperlipidemia, unspecified hyperlipidemia type documented in this encounter [facility] Work Phone: Evaluation note* Diagnosis Near syncope Fatigue, unspecified type History of PTCA Postsurgical percutaneous transluminal coronary angioplasty status Essential hypertension Unspecified essential hypertension History of ST elevation myocardial infarction (STEMI) Shortness of breath Coronary artery disease, unspecified vessel or lesion type, unspecified whether angina present, unspecified whether benton or transplanted heart Former smoker Personal history of tobacco use, presenting hazards to health BMI 27.0-27.9,adult documented in this encounter [facility] Work Phone: Evaluation note* Diagnosis Coronary artery disease, unspecified vessel or lesion type, unspecified whether angina present, unspecified whether benton or transplanted heart History of ST elevation myocardial infarction (STEMI) History of PTCA Postsurgical percutaneous transluminal coronary angioplasty status Hyperlipidemia, unspecified hyperlipidemia type Essential hypertension Unspecified essential hypertension BMI 27.0-27.9,adult Former smoker Personal history of tobacco use, presenting hazards to health documented in this encounter [facility] Work Phone: Evaluation note* Diagnosis Hyperlipidemia, unspecified hyperlipidemia type- Primary Coronary artery disease, unspecified vessel or lesion type, unspecified whether angina present, unspecified whether benton or transplanted heart History of ST elevation myocardial infarction (STEMI) Essential hypertension Unspecified essential hypertension BMI 27.0-27.9,adult Fatigue, unspecified type Shortness of breath documented in this encounter [facility] Work Phone: Evaluation note* Diagnosis Hyperlipidemia, unspecified hyperlipidemia type- Primary Coronary artery disease, unspecified vessel or lesion type, unspecified whether angina present, unspecified whether benton or transplanted heart History of ST elevation myocardial infarction (STEMI) Essential hypertension Unspecified essential hypertension BMI 27.0-27.9,adult Fatigue, unspecified type Shortness of breath Essential hypertension- Primary Unspecified essential hypertension Fatigue, unspecified type BMI 26.0-26.9,adult documented in this encounter [facility] Work Phone: Evaluation note* Diagnosis Hyperlipidemia, unspecified hyperlipidemia type- Primary Coronary artery disease, unspecified vessel or lesion type, unspecified whether angina present, unspecified whether benton or transplanted heart History of ST elevation myocardial infarction (STEMI) Essential hypertension Unspecified essential hypertension BMI 27.0-27.9,adult Fatigue, unspecified type Shortness of breath Essential hypertension- Primary Unspecified essential hypertension Fatigue, unspecified type BMI 26.0-26.9,adult BMI 27.0-27.9,adult- Primary Essential hypertension Unspecified essential hypertension Localized edema Edema documented in this encounter [facility] Work Phone: History and physical note Author Reji Frausto [facility] October 27, 2023 6:21pm Note Date/Time October 27, 2023 5:5 1pm [facility] [address] [place] [address] Cardiology H&P Signed Patient: Genny Barboza MR#: [id number] 3012 : 1940 Acct:[id number] Age/Sex: 83 / F Adm Date: 4 Loc: Room: Type: [facility] Attending Dr: Reji Frausto DO Copies [...] administered under my direction, patient arrived in [employer] at 1756 and underwent primary PCI at [...] critical care time were devoted to ER staff,Retail Shift Manager staff, nursing staff, patient and family both pre and post procedurally. 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: Code(s): I21.19 - ST elevation (STEMI) myocardial infarction involving other coronary artery of inferior wall Plan Proceed with emergency cath and PCI Documented By: Reji Frausto DO 10/27/23 1750 Signed By: <Electronically signed by Reji Frausto DO> 10/27/23 1821 [facility] Work Phone: History general Narrative - Reported* [...] Medical History MUSCLE MASS Surgical History COLONOSCOPY 1996,2000,2004, 2006,2011 Surgical History EXPLORATORY LAP, LYSIS OF ADHES IONS Surgical History RECTOVAGINAL FISTULA REPIAR Surgical History HAYLEY Surgical History COLON RESECTION Surgical History CYSTOSCOPY Hospitalization History SEE SURGICAL HX [facility] Other Hospital Discharge instructions Additional Instructions We evaluated you for your shortness of breath. We discussed this is most likely due to your Brilinta. Please see your analyst programmer this afternoon at your previously scheduled appointment. Please follow close with your primary care doctor as well. Please return to the emergency department if you develop any worsening or concerning symptoms.[facility] Work Phone: Reason for referral (narrative)* Consultation (Routine) - Authorized Specialty Diagnoses / Procedures Referred By Contzheng t Referred To Contact Cardiology Diagnoses Coronary artery disease, unspecified vessel or lesion type, unspecified whether angina present, unspecified whether benton or transplanted heart Procedures Follow Up In Cardiology Inderjit Frausto DO [address], [address] [address] Inderjit Frausto DO [address] [facility] [address] [place] [address] Referral ID Status Reason Start Date Expiration Date V isits Requested Visits Authorized [id number] Authorized 11/07/2023 11/06/2024 1 1 * Consultation (Routine) - Authorized Specialty Diagnoses / Procedures Referred By Contac t Referred To Contact Cardiac Rehabilitation Diagnoses Coronary artery disease, unspecified vessel or lesion type, unspecified whether angina present, unspecified whether benton or transplanted heart History of PTCA History of ST elevation myocardial infarction (STEMI) Inderjit Frausto DO [address] [facility] [address], [facility] [address] [place] [address] Referral ID Status Reason Start Date Expiration Date Visits Requested Visits Authorized [id number] Authorized Specialty Services Required 11/07/2023 11/06/2024 1 1 Scheduling Instructions Julius [facility] Work Phone: Reason for referral (narrative)No reason for referral information available[facility] Work Phone: Summary Purpose Family History [...] Visit Admit Date ASHD (arteriosclerotic heart disease) De cember 2023 3:47pm Hypercholesterolemia March 09, 2024 3:47pm IBS (irritable bowel syndrome) March 09, 2024 3:47pm Lung nodule March 09, 2024 3:47pm Medicare annual wellness visit, jerel nt March 09, 2024 3:47pm Nicotine addiction March 09, 2024 3:47pm Primary hypertension March 09, 2024 3:47pm Screening mammogram for breast cancer Joyce 2023 3:47pm Diarrhea March 11, 2024 1:00pm [...] Seborrheic dermatitis August 19, 2024 1:3 0pm Chief Complaint Admit Date 3 month f/u/diarrhea July 20, 2024 10 :57am HIGH RISK-rash on scalp/neck pain August 192024 1:30pm CEA: 6 mo f/u Abn CT September 29, 2024 1:13 pm Unknown October 03, 2024 4:46 pm Reason for Visit Admit Date Diarrhea [...] Seborrheic dermatitis August 19, 2024 1:3 0pm Lung nodule September 29, 2024 1:13p m Chief Complaint Admit Date HIGH RISK-rash on scalp/neck pain August 192024 1:30pm CEA: 6 mo f/u Abn CT September 29, 2024 1:13 pm Unknown October 03, 2024 4:46 pm MRI results November 04, 2024 1: 56pm Reason for Visit Admit Date Cervical spondylosis August 19, 2024 1:30 pm Neck pain August 19, 2024 1:30p m Seborrheic dermatitis August 19, 2024 1:3 0pm Lung nodule September 29, 2024 1:13p m Cervical spondylosis with radiculopathy November 04, 2024 1:56pm Neck pain November 04, 2024 1: 56pm Reason for Referral Specialty Diagnoses / Procedures Referred By Contac t Referred To Contact Diagnoses Near syncope Fatigue, unspecified type Procedures ECG 12 Lead Inderjit Frausto, [address] [place] [address] 2, [address] [address] Referral ID Status Reason Start Date Expiration Date V isits Requested Visits Authorized [id number] Authorized 12/20/2023 12/19/2024 1 1 Additional Source Comments Reason for Visit (unrecogniz ed section and content) Reason Comments Headache Hypertension Reason Comments [place] [facility] [place] Reason Comments Follow-up Dyspnea, near syncop e, med concerns Specialty Diagnoses / Procedures Referred By Contac t Referred To Contact Diagnoses Near syncope Fatigue, unspecified type Procedures ECG 12 Lead Inderjit Frausto, [address], [address] [address] Referral ID Status Reason Start Date Expiration Date V isits Requested Visits Authorized [id number] Authorized 12/20/2023 12/19/2024 1 1 Reason Comments Follow-up 6m Coronary Artery Disease Specialty Diagnoses / Procedures Referred By Contac t Referred To Contact Cardiology Diagnoses Coronary artery disease, unspecified vessel or lesion type, unspecified whether angina present, unspecified whether benton or transplanted heart Procedures Follow Up In Cardiology Jett Inderjit Bauman, [address] [place] [address] 2, [address] [address] Phone: tel: fax: Jett Inderjit Bauman, [address] [place] [address] 2, [address] [address] Phone: tel: fax: Referral ID Status Reason Start Date Expiration Date V isits Requested Visits Authorized [id number] Pending Review 11/07/2023 11/06/2024 1 1 Reason Comments Follow-up Shortness of breath, fatigue Reason Comments Follow-up 1 months Coronary ar shira disease, unspecified vessel or lesion type, unspecified whether angina present, unspecified whether benton or transplanted heart Specialty Diagnoses / Procedures Referred By Contac t Referred To Contact Cardiology Diagnoses Fatigue, unspecified type Procedures Follow Up In Cardiology Vanessa Dave APRN-RADIOLOGY RESIDENT [address] [facility] 2, [address] [address] Phone: tel: fax: Referral ID Status Reason Start Date Expiration Date V isits Requested Visits Authorized [id number] Authorized 08/05/2024 08/05/2025 1 1 Reason Comments Follow-up 7 month Follow up fo r Hypertension Specialty Diagnoses / Procedures Referred By Contac t Referred To Contact Cardiology Diagnoses Essential hypertension Procedures Follow Up In Cardiology Vanessa Dave APRN-RADIOLOGY RESIDENT [address] [facility] 2, [address] [address] Phone: tel: fax: Referral ID Status Reason Start Date Expiration Date V isits Requested Visits Authorized [id number] Authorized 09/29/2024 09/29/2025 1 1 INFORMATION SOURCE (unrecogn ized section and content) DATE CREATED AUTHOR 05/23/2022 [facility] DATE CREATED AUTHOR AUTHOR'S ORGANIZ ATION 05/25/2022 [facility] DATE CREATED AUTHOR AUTHOR'S ORGANIZ ATION 04/25/2023 [facility] EPIC DATE CREATED AUTHOR AUTHOR'S ORGANIZ ATION 10/07/2024 [facility] DATE CREATED AUTHOR AUTHOR'S ORGANIZ ATION 11/05/2024 [facility] President [employer] Teams (unrecognized sec tion and content) Team [...] 2024 Team Status: Active Member Role Status Renetta Du DO Primary Care Provide r, Attending Provider Active Start: March 06, 2024 Team Status: Inactive Member Role Status Renetta Du DO Primary Care Provide r, Attending Provider Active Start: March 09, 2024 End: March 09, 2024 Team Status: Inactive Member Role Status Renetta Du DO Primary Care Provider Active Start: March 11, 2024 End: March 11, 2024 Sylvester Monk MD Attending Provider Active S tart: March 11, 2024 End: March 11, 2024 Team Status: Inactive Member Role Status Renetta Du DO Primary Care Provider Active Start: March 12, 2024 End: March 12, 2024 Marito Brambila MD Attending Provider Active Start: March 12, 2024 End: March 12, 2024 Team Status: Active Member Role Status Renetta Du DO Primary Care Provide r, Attending Provider Active Start: April 28, 2024 Team Status: Inactive Member Role Status Renetta [...] October 28, 2023 Sobia Okeefe MD Attending Hi ovider, Other Provider Active Start: October 28, 2023 Team Status: Active Member Role Status Dates Doe Álvarez PA-C Emergency Provider Active Start: October 27, 2023 Branden Du DO Primary Care Provider Active Start: October 27, 2023 Reji Frausto , DO Admit Provider, Att ending Provider Active Start: October 27, 2023 Team Status: Inactive Member Role Status Dates Branden Du DO Attending Provider Active Sta rt: February 08, 2023 End: February 08, 2023 Team Status: Inactive Member Role Status Dates Branden Du DO Attending Provider Active Sta rt: March 26, 2023 End: March 26, 2023 Team Status: Inactive Member Role Status Dates Branden Du DO Attending Provider Active Sta [...] December 12, 2023 End: December 12, 2023 Product Safety Manager Relationship Specialty Start Date End Date Branden Du DO [address] [place] [address] PCP - General Internal Medicine 11/07/23 Maura Andres RN Care Industrial Sales Engineer 10/30/23 Product Safety Manager Relationship Specialty Start Date End Date Branden Du DO [address] [place] [address] PCP - General Internal Medicine 11/07/23 Maura Andres RN Care Industrial Sales Engineer 10/30/23 Product Safety Manager Relationship Specialty Start Date End Date Branden Du DO [address] [place] [address] PCP - General Internal Medicine 11/07/23 Product Safety Manager Relationship Specialty Start Date End Date Branden Du DO [address] [place] [address] PCP - General Internal Medicine 11/07/23 Team [...] September 29, 2024 End: September 29, 2024 Product Safety Manager Relationship Specialty Start Date End Date Branden Du DO [address] [place] [address] PCP - General Internal Medicine 11/07/23 Team Status: Active Member Role Status Dates Branden Du DO Primary Care Provider Active Start: October 03, 2024 Laurie Mills MD Attending Provider Active Sta rt: October 03, 2024 Team Status: Inactive Member Role Status Dates Laurie Mills MD Attending Provider Active Sta rt: October 03, 2024 End: October 03, 2024 Product Safety Manager Relationship Specialty Start Date End Date Branden Du DO [address] [place] [address] PCP - General Internal Medicine 11/07/23 Team Status: Inactive Member Role Status Dates Branden Du DO Primary Care Provider Active Start: November 04, 2024 End: November 04, 2024 Branden Du DO Attending Provider Active Sta rt: November 04, 2024 End: November 04, 2024 Goals (unrecognized section and content) Goals may [...] BASED ON THE PRIMARY CLINICAL RECORDS. [facility] [employer] [facility]. provides no warranty or guarantee of the accuracy or completeness of information in this document.
--- OUTSIDE RECORDS SUMMARY | 2024-11-07 16:09 | XMS_ITS | Encounter Summary ---
Author Organization [facility] Address [address] [place] [address] Phone Care Team Providers Care Robotics Mechanic Name Role Phone Branden Du DO Primary Care Provider [phone] Encounter Details Date Type Department Care Team (Latest Contact Info) Description 11/03/2024 Travel Social History Tobacco Use Types Packs/Day [...] Description 01/27/2025 1:00 PM EST Office Visit [facility] 703 [facility] [address] [place] [phone] Jeannette Dave, VICE PRESIDENT OF SOFTWARE ENGINEERING-STYLE ADVISOR [address] [facility] [address], [address] [place] [address] documented as of this encounter Visit Diagnoses Not on filedocumented in this encounter Additional Health Concerns Assessment Noted Time A fall risk assessment has been complete d for the patient 11/03/2024 2:05 PM EDT documented as of this encounter Care Teams Robotics Mechanic Relationship Specialty Start Date End Date Branden Du DO [address] [place] [address] PCP - General Internal Medicine 11/07/23 documented as of this encounter
--- OUTSIDE RECORDS SUMMARY | 2024-11-07 16:09 | XMS_ITS | Encounter Summary ---
Author Organization [facility] Address [address] [place] [address] Phone Care Team Providers Care Job Superintendent Name Role Phone Maura Andres RN Unavailable Unavailable Branden Du DO Primary Care Provider [phone] Encounter Details Date Type Department Care Team (Late st Contact Info) Description 10/28/2023 Scanned Document [facility] [address] [place] [phone] Scanning, Generic Provider Social History Tobacco Use [...] Description 01/27/2025 1:00 PM EST Office Visit [facility] [address] [phone] Jeannette Dave, SIGNAL OPERATOR-WELDING MACHINE OPERATOR ELECTRO GAS 703 [facility] 2, [address] [place], [place] [phone] documented as of this encounter Procedures Procedure Name Priority Date/Time Associated Diagnosis Comments ECHOCARDIOGRAM 10/28/2023 documented in this encounter Results * Echocardiogram (10/28/2023) Narrative 10/28/2023 Ordered by an unspecified provider. us Generic Provider Scanning CV ECHO PROCEDURES Fin al Result documented in this encounter Visit Diagnoses Not on filedocumented in this encounter Care Teams Job Superintendent Relationship Specialty Start Date End Date Branden Du DO [address] [place] [address] PCP - General Internal Medicine 11/07/23 Maura Andres, sole bufferRoofing Supervisor 10/30/23 01/28/24 documented as of this encounter
--- OUTSIDE RECORDS SUMMARY | 2024-11-07 16:09 | XMS_ITS | Encounter Summary ---
Author Organization [facility] Address [address] [place] [address] Phone Care Team Providers Care Diet Kitchen Cook Name Role Phone Branden uD DO Primary Care Provider [phone] Encounter Details Date Type Department Care Team (Late st Contact Info) Description 05/26/2024 Scanned Document [facility] [address] [place] [phone] Scanning, Generic Provider Social History Tobacco Use [...] Description 01/27/2025 1:00 PM EST Office Visit [facility] 703 [facility] [address] [place] [address] Jeannette Dave, LANDING SCALER-PERINATAL SPECIALIST 703 [facility] 2, [address] [place], [place] [phone] documented as of this encounter Visit Diagnoses Not on filedocumented in this encounter Additional Health Concerns Assessment Noted Time A fall risk assessment has been complete d for the patient 12/20/2023 10:41 AM EDT documented as of this encounter Care Teams Diet Kitchen Cook Relationship Specialty Start Date End Date Branden Du DO [address] [place] [address] PCP - General Internal Medicine 11/07/23 documented as of this encounter
--- OUTSIDE RECORDS SUMMARY | 2024-11-07 16:09 | XMS_ITS | Encounter Summary ---
Author Organization [facility] Address [address] [place] [address] Phone Care Team Providers Care Professor Of History Name Role Phone Maura Andres RN Unavailable Unavailable Branden Du DO Primary Care Provider [phone] Encounter Details Date Type Department Care Team (Late st Contact Info) Description 11/05/2023 Scanned Document [facility] [address] [place] [phone] Scanning, Generic Provider Social History Tobacco Use [...] Visit [facility] 703 [facility] [address] [place] [address] Jeannette Dave, SUPERVISOR CYTOGENETIC LABORATORY-CLOTH SHRINKING TESTER [address] [facility] [address] [place] [address] documented as of this encounter Procedures Procedure Name Priority Date/Time Associated Diagnosis Comments OUTSIDE IMAGING SCAN 11/05/2023 documented in this encounter Results * OUTSIDE IMAGING SCAN (11/05/2023) Anatomical Region Laterality Modality Other Narrative 11/05/2023 Ordered by an unspecified provider. us Generic Provider Scanning OUTSIDE SCAN Final Result documented in this encounter Visit Diagnoses Not on filedocumented in this encounter Care Teams Professor Of History Relationship Specialty Start Date End Date Branden Du DO [address] [place] [address] PCP - General Internal Medicine 11/07/23 Maura Andres, childbirth educatorPhysician'S Aide 10/30/23 01/28/24 documented as of this encounter
--- OUTSIDE RECORDS SUMMARY | 2024-11-07 16:09 | XMS_ITS | Encounter Summary ---
Author Organization [facility] Address [address] [place] [address] Phone Care Team Providers Care Brownfield Redevelopment Specialist Name Role Phone Branden Du DO Primary Care Provider [phone] Encounter Details Date Type Department Care Team (Late st Contact Info) Description 04/28/2024 Scanned Document [facility] [place] [facility] [address] [place] [phone] Scanning, Generic Provider Social History Tobacco Use [...] Description 01/27/2025 1:00 PM EST Office Visit [facility] 703 [facility] [address] [place] [address] Jeannette Dave, STAFFING CONSULTANT-DESKTOP OPERATOR 703 [facility] [address], [address] [place], [place] [phone] documented as of this encounter Visit Diagnoses Not on filedocumented in this encounter Additional Health Concerns Assessment Noted Time A fall risk assessment has been complete d for the patient 12/20/2023 10:41 AM EDT documented as of this encounter Care Teams Brownfield Redevelopment Specialist Relationship Specialty Start Date End Date Branden Du DO [address] [place] [address] PCP - General Internal Medicine 11/07/23 documented as of this encounter
--- OUTSIDE RECORDS SUMMARY | 2024-11-07 16:09 | XMS_ITS | Encounter Summary ---
Author Organization [facility] Address [address] [place] [address] Phone Care Team Providers Care Reed Press Feeder Name Role Phone Branden Du DO Primary Care Provider [phone] Encounter Details Date Type Department Care Team (Late st Contact Info) Description 10/03/2024 Scanned Document [facility] [address] [place] [phone] Scanning, Generic Provider Social History Tobacco Use [...] Description 01/27/2025 1:00 PM EST Office Visit [facility] [address] [facility] [address] [place] [address] Jeannette Dave, PROCESS ANALYST-LEAD ENGINEER [address] [facility] [address], [address] [place], [place] [phone] documented as of this encounter Visit Diagnoses Not on filedocumented in this encounter Additional Health Concerns Assessment Noted Time A fall risk assessment has been complete d for the patient 08/05/2024 1:51 PM EDT documented as of this encounter Care Teams Reed Press Feeder Relationship Specialty Start Date End Date Branden Du DO [address] [place] [address] PCP - General Internal Medicine 11/07/23 documented as of this encounter
--- OUTSIDE RECORDS SUMMARY | 2024-11-07 16:09 | XMS_ITS | Clinical Summary ---
Author Organization [facility] Address [address] [facility] [address] [place] [address] Care Team Providers Care Yard Switcher Name Role Phone FlorianBranden Hermann SEGAL Primary Care Provider [phone] Allergies No known active allergies Medications amLODIPine [...] Completed 3, 01/28/2015 Insurance [employer] Care Teams Yard Switcher Relationship Specialty Start Date End Date Branden Du DO PCP - General Internal Medicine 04/24/23
--- OUTSIDE RECORDS SUMMARY | 2024-11-07 16:09 | XMS_ITS | Clinical Summary ---
Author Organization [facility] Address [address] [place] [address] Phone Care Team Providers Care Grooving Machine Operator Name Role Phone Branden Du Primary Care Provider [phone] Allergies Active Allergy Reactions Criticality Noted Date Comments Penicillins Unknown 11/07/2023 Medications multivit with minerals/lutein (MULTIVITAMIN 50 PLUS ORAL) Take 1 tablet by mouth once daily. 06/20/19 24 Active aspirin 81 mg EC tablet Take 1 tablet (81 mg) by mouth once daily. 10/29/19 24 Active nitroglycerin (Nitrostat) 0.[address] 1 tablet (0.4 mg) under the tongue every 5 minutes if needed for chest pain. 10/29/19 24 Active omeprazole (PriLOSEC) [address] capsule Take 1 capsule (40 mg) by mouth once daily in the morning. Take before meals. 02/09/20 23 Active amLODIPine (Norvasc) 5 mg tablet Take 1 tablet (5 mg) by mouth once daily. Active clopidogrel (Plavix) 75 mg tabletIndications: History of PTCA,History of ST elevation myocardial infarction (STEMI),Coronary artery disease, unspecified vessel or lesion type, unspecified whether angina present, unspecified whether chenega or transplanted heart Take 1 tablet (75 mg) by mouth once daily. On the first day of starting the medication take 4 tablets by mouth. Then take 1 tablet by mouth each day after. 90 tablet 3 12/20/19 24 025 Active dicyclomine (Bentyl) 20 mg tablet Take 1 tablet (20 mg) by mouth every 12 hours. 07/28/19 25 Active atorvastatin (Lipitor) 80 mg tabletIndications: Hyperlipidemia, unspecified hyperlipidemia type TAKE 1 TABLET BY MOUTH EVERY DAY IN THE EVENING 90 tablet 3 10/01/19 25 Active losartan (Cozaar) 50 mg tabletIndications: Essential hypertension Take 1 tablet (50 mg) by mouth 2 times a day. 180 tablet 3 09/30/19 25 026 Active carvedilol (Coreg) 6.25 mg tabletIndications: Essential hypertension Take 1 tablet (6.25 mg) by mouth 2 times daily (morning and late afternoon). 60 tablet 11 09/30/19 25 026 Active metoprolol tartrate (Lopressor) 25 mg tabletIndications: Hyperlipidemia, unspecified hyperlipidemia type Take 1 tablet (25 mg) by mouth 2 times a day. 180 tablet 3 10/02/19 25 025 Discontin ued(Thera py completed ) Active Problems Problem Noted Date Diagnosed Date Localized edema 11/03/2024 Assessment & Plan (11/03/2024 2:22 PM EDT): After flight to [place] has noticed RLE pedal edema and calf pain. Will get USN to rule out DVT Fatigue 12/20/2023 Assessment & Plan (09/30/2024 8:26 [...] 11/07/2023 BMI 27.0-27.9,adult 11/07/2023 Assessment & Plan (09/30/2024 8:25 AM [...] Encounters Date Type Department Care Team Description 11/04/2024 Telephone [facility] [address] [place] [phone] Jeannette Dave APRN-CNP 11/03/2024 2:00 PM EDT Office Visit [facility] [address] [place] [address] [address] [place] [address] Jeannette Dave APRN-CNP BMI 27.0-27.9,adult (Primary Dx); Essential hypertension; Localized edema Discharge Disposition: Home 11/03/2024 Scanned Document [facility] [address] [place] [phone] Scanning, Generic Provider 11/03/2024 Travel 10/05/[address] [place] [address] Jacque Quesada RN Advice Only 10/03/2024 Scanned Document [facility] [address] [employer] [place] [phone] Scanning, Generic Provider 09/30/[address] [place] [address] Inderjit Frausto DO Hyperlipidemia, unspecified hyperlipidemia type 09/29/2024 2:30 PM EDT Office Visit [address] [place] [address] Jeannette Dave APRN-CNP Essential hypertension (Primary Dx); Fatigue, unspecified type; BMI 26.0-26.9,adult 09/29/2024 Travel 09/29/[address] [place] [address] Annika Del Castillo MD History of ST elevation myocardial infarction (STEMI); Coronary artery disease, unspecified vessel or lesion type, unspecified whether angina present, unspecified whether chenega or transplanted heart; History of PTCA; Essential hypertension 09/29/[address] [place] [phone] Inderjit Frausto, Hyperlipidemia, unspecified hyperlipidemia type 08/11/2024 Telephone [place] [address] [address] Lavonne Dwyer LPN Results from Last 3 Months Immunizations Immunization Administration [...] blue cap/grady label *Check age/dose* 12/27/2021 Novel [id number], preservative-free 03/08 Pfizer COVID-19 vaccine, 12 years [...] Mass Index 27.21 11/03/2024 2:04 PM EDT Plan of Treatment Upcoming Encounters Date Type Department Care Team (Late st Contact Info) Description 01/27/2025 1:00 PM EST Office Visit [facility] 703 [facility] [address] [place] [address] Jeannette Dave, RANGE AID-AUTOMATIC BLOCKER [address] [facility] [address], [address] [place] [address] Health Maintenance Due Date Last Done Comments Lipid Panel 1940 Medicare Annual Wellness Visit (AWV) 1940 DTaP/Tdap/Td Vaccines (1 - Tdap) 1962 Bone Density Scan 2005 COVID-19 Vaccine ( season) 2024 12/05/2023, 12/27/2022, 12/27/2021, Additional history exists Influenza Vaccine (#1) 2024 , 12/27/2022, 12/13/2021, Additional history exists Pneumococcal Vaccine [...] on patient's age to complete this topic Insurance MEDICARE PART A AND B Member Subscriber Plan / Payer ( fective 2005-Present) Name:Genny Barboza Member ID:[id number] Relation to Subscriber:Self Name:Genny Barboza Subscriber ID:[id number] Payer ID:Not on file Group ID:Not on file Type:Not on file Address: [address] MEDICARE PART A AND B AARP Care Teams Grooving Machine Operator Relationship Specialty Start Date End Date Branden Du DO [address] [place] [address] PCP - General Internal Medicine 11/07/23
--- OUTSIDE RECORDS SUMMARY | 2024-11-07 16:09 | XMS_ITS | Encounter Summary ---
Author Organization [facility] Address [address] [place] [address] Phone Care Team Providers Care Facility Security Officer Name Role Phone Branden Du DO Primary Care Provider [phone] Encounter Details Date Type Department Care Team (Late st Contact Info) Description 08/05/2024 Scanned Document [facility] [address] [place] [phone] Scanning, Generic Provider Social History Tobacco Use [...] Description 01/27/2025 1:00 PM EST Office Visit [facility] 703 [facility] [address] [place] [address] Jeannette Dave, MAGNETOMETER OPERATOR-CRANBERRY SORTER 703 [facility] 2, [address] [place], [place] [phone] documented as of this encounter Procedures Procedure [...] documented as of this encounter Care Teams Facility Security Officer Relationship Specialty Start Date End Date Branden Du DO [address] [place] [address] PCP - General Internal Medicine 11/07/23 documented as of this encounter
--- OUTSIDE RECORDS SUMMARY | 2024-11-07 16:09 | XMS_ITS | Encounter Summary ---
Author Organization [facility] Address [address] [place] [address] Phone Care Team Providers Care Licensed Loan Officer Assistant Name Role Phone Branden Du DO Primary Care Provider [phone] Encounter Details Date Type Department Care Team (Late Contact Info) Description 11/04/2024 Telephone [facility] [address] [facility] [address] [place] [address] Jeannette Dave, GRITTING MACHINE OPERATOR-LUGGAGE REPAIRER [address] [facility] [address] [place] [address] Social History Tobacco Use Types Packs/Day Years [...] encounter Miscellaneous Notes * Telephone Encounter - Chely Parnell - 11/04/2024 10:45 AM EDT Stat Vascular US Lower Extremity Venous Duplex 33286 DX: R60.0 at [facility] does not require prior auth as the patient has Medicare primary. documented in this encounter Plan of Treatment Upcoming Encounters Date Type Department Care Team (Late Contact Info) Description 01/27/2025 1:00 PM EST Office Visit [facility] [address] [facility] [address] [place] [phone] Jeannette Dave, GRITTING MACHINE OPERATOR-LUGGAGE REPAIRER [address] [facility] [place] [address] documented as of this encounter Visit Diagnoses Not on filedocumented in this encounter Additional Health Concerns Assessment Noted Time A fall risk assessment has been complete d for the patient 11/03/2024 2:05 PM EDT documented as of this encounter Care Teams Licensed Loan Officer Assistant Relationship Specialty Start Date End Date Branden Du DO [address] [place] [address] PCP - General Internal Medicine 11/07/23 documented as of this encounter
--- OUTSIDE RECORDS SUMMARY | 2024-11-07 16:09 | XMS_ITS | Encounter Summary ---
Author Organization [facility] Address [address] [place] [address] Phone Care Team Providers Care Advanced Analytics Associate Name Role Phone Maura Andres RN Unavailable Unavailable Branden Du DO Primary Care Provider [phone] Encounter Details Date Type Department Care Team (Late st Contact Info) Description 10/27/2023 Scanned Document [facility] [address] [place] [phone] Scanning, Generic Provider Social History Tobacco Use [...] 01/27/2025 1:00 PM EST Office Visit [facility] [address] [phone] Jeannette Dave, ASPHALT SURFACE HEATER OPERATOR-CLINICAL INFORMATION SYSTEMS DIRECTOR [address] [facility] [address] [place] [address] documented as of this encounter Procedures Procedure [...] on filedocumented in this encounter Care Teams Advanced Analytics Associate Relationship Specialty Start Date End Date Branden Du DO [address] [place] [address] PCP - General Internal Medicine 11/07/23 Maura Andres, supervising librarianHospitality Specialist 10/30/23 01/28/24 documented as of this encounter
[2024-11-07 16:13] VITALS: BP 142/77; PULSE 65; TEMP 36.7; O2SAT 98; BMI 26.8
--- NOTE | 2024-11-07 16:35 | CT_ITS ---
The [address] [address] Patient Name: EVER BREWER MRN: [id number] date: 1940 Sex: F Assigned Patient Location: ER Current Patient Location: ER Accession/Order Number: [id number] Exam Date: 11/07/2024 17:56 Report Date: 11/07/2024 18:00 At the request of: DOUGLAS MACKENZIE Procedure: CT lumbar spine wo con CT lumbar spine wo con 11/07/2024 4:36 PM History:Fall today. Back pain. TECHNIQUE: Multi detector CT axial slices of the lumbar spine were obtained without IV contrast. Volumetric acquisition sagittal, coronal, and 3-D reconstructions were performed and reviewed on a separate workstation. CT was performed with one or more of the following dose reduction techniques: Automated exposure control, adjustment of the mA and/or kV according to patient size, or use of iterative reconstruction technique. COMPARISON: None FINDINGS: There is a fracture deformity involving the superior endplate of the L1 vertebral body with mild vertebral body height loss. No significant retropulsion into the spinal canal is seen. Remaining vertebral body heights appear maintained. Diffuse facet joint degenerative changes with approximately 5 mm of anterolisthesis of L4 on L5. No significant disc height loss. Scattered endplate degenerative change. Transverse processes appear intact. Visualized SI joints appear intact. No paraspinal mass is noted. There does retroperitoneum demonstrates left nephrolithiasis. CT/CT lumbar spine wo con IMPRESSION: Fracture deformity involving the superior endplate of L1 with mild vertebral body height loss. No retropulsion into the spinal canal is seen. Impression dictated by: Reginaldo Rivas Jr., D.O. 11/07/2024 6:00 PM Dictation Location: [place] [address] Electronically authenticated by: [id number] Y Date: 11/07/2024 18:00
--- NOTE | 2024-11-07 16:35 | CT_ITS ---
The [address] [address] Patient Name: EVER BREWER MRN: [id number] date: 1940 Sex: F Assigned Patient Location: ER Current Patient Location: ER Accession/Order Number: [id number] Exam Date: 11/07/2024 18:00 Report Date: 11/07/2024 18:03 At the request of: DOUGLAS MACKENZIE Procedure: CT cervical spine wo con CT CERVICAL SPINE WITHOUT CONTRAST WITH 3D RECONSTRUCTIONS: CLINICAL HISTORY: Fall COMPARISON: None TECHNIQUE: Spiral axial unenhanced images were obtained through the cervical spine. Sagittal, coronal and 3D volume-rendered reconstructions were also reviewed. This CT exam was performed using one or more following dose reduction techniques: Automated exposure control, adjustment of the mA and/or kV according to patient size, or use of iterative reconstruction technique. FINDINGS: Vertebral body heights appear maintained. No fracture. Moderate spondylosis C3-4 with diffuse facet joint degenerative changes along with 3 mm of anterior subluxation of C4 on C5 and C5 on C6. No prevertebral soft tissue swelling. No prevertebral soft tissue swelling. Visualized lung apices demonstrate no acute process. CT/CT cervical spine wo con IMPRESSION: NO CERVICAL SPINE FRACTURE Impression dictated by: Reginaldo Rivas Jr., D.O. 11/07/2024 6:03 PM Dictation Location: [employer] Electronically authenticated by: [id number] Y Date: 11/07/2024 18:03
--- NOTE | 2024-11-07 16:35 | XR_ITS ---
The [address] [address] Patient Name: EVER BREWER MRN: [id number] date: 1940 Sex: F Assigned Patient Location: ER Current Patient Location: ER Accession/Order Number: [id number] Exam Date: 11/07/2024 18:03 Report Date: 11/07/2024 18:05 At the request of: DOUGLAS MACKENZIE Procedure: XR humerus RT RIGHT HUMERUS - 2 views CLINICAL HISTORY: pain, fall COMPARISON: None FINDINGS: Suboptimal examination due to positioning. Bones are grossly demineralized. No acute no acute bony process is seen. Presumed loose body seen within the posterior joint space of the elbow. XR/XR humerus RT IMPRESSION: NO ACUTE BONY PROCESS. Impression dictated by: Reginaldo Rivas Jr., D.O. 11/07/2024 6:05 PM Dictation Location: [place] [address] Electronically authenticated by: [id number] Y Date: 11/07/2024 18:05
--- NOTE | 2024-11-07 16:35 | XR_ITS ---
The [address] [address] Patient Name: EVER BREWER MRN: [id number] date: 1940 Sex: F Assigned Patient Location: ER Current Patient Location: ER Accession/Order Number: [id number] Exam Date: 11/07/2024 17:56 Report Date: 11/07/2024 17:56 At the request of: DOUGLAS MACKENZIE Procedure: XR shoulder RT min 2V RIGHT SHOULDER - - 3 views CLINICAL HISTORY: pain, fall COMPARISON: None FINDINGS: Bones are grossly demineralized. No acute fracture. Joint spaces appear maintained. XR/XR shoulder RT min 2V IMPRESSION: No acute bony process. Impression dictated by: Denzel Parker Jr.OValentin 11/07/2024 5:56 PM Dictation Location: [place] [address] Electronically authenticated by: [id number] Y Date: 11/07/2024 17:56
--- NOTE | 2024-11-07 16:36 | ED.BACK1 ---
HPI HPI - Back Pain/Injury General Chief Complaint: Back Pain/Injury Stated Complaint: fall-back pain and right arm pain Time Seen by Provider: 11/07/24 16:26 Source: patient Mode of arrival: walk-in History of Present Illness HPI Narrative: 84 year old female presents to the ED for pain to her lower back and right shoulder/upper arm s/p fall today. States she was trying to pull a weed that was intertwined with one of her bushes when she lost her balance and fell. She landed on her buttocks and right arm. Denies hitting her head and LOC. She is in treatment for neck pain. Denies N/T, change in bowel and/or bladder control. Denies saddle anesthesia. She is accompanied by family. She took Tylenol ORNAMENTER. She is also taking prednisone 10 mg daily. Related Data Home Medications ?Medication ?Instructions ?Recorded ?Confirmed amlodipine 5 mg tablet 5 mg PO DAILY 10/03/24 11/07/24 aspirin 81 mg capsule 81 mg PO DAILY 10/03/24 11/07/24 atorvastatin 80 mg tablet 80 mg PO QPM 10/03/24 11/07/24 carvedilol 6.25 mg tablet 6.25 mg PO BID 10/03/24 11/07/24 clopidogrel 75 mg tablet 75 mg PO DAILY 10/03/24 11/07/24 dicyclomine 20 mg tablet 20 mg PO BID 10/03/24 11/07/24 losartan 50 mg tablet 50 mg PO BID 10/03/24 11/07/24 nitroglycerin 0.4 mg sublingual 0.4 mg buccal Q5M PRN chest pain 10/03/24 11/07/24 tablet omeprazole 40 mg capsule,delayed 40 mg PO DAILY PRN gerd 10/03/24 11/07/24 release prednisone 10 mg tablet 10 mg PO DAILY 11/07/24 11/07/24 Previous Rx's ?Medication ?Instructions ?Recorded acetaminophen 300 mg-codeine 30 mg 1 tab PO Q6H PRN pain 5 days #20 11/07/24 tablet tabs Allergies Allergy/AdvReac Type Severity Reaction Status Date / Time Penicillins Allergy Severe Hives Verified 10/03/24 15:28 Review of Systems ROS Eyes Denies: change in vision Ears, nose, mouth, and throat Denies: neck pain Cardiovascular Denies: chest pain Respiratory Denies: shortness of breath Gastrointestinal Denies: abdominal pain, nausea or vomiting Musculoskeletal Reports: back pain and extremity pain; Denies: neck pain Neurological Denies: headache, numbness in extremities, weakness in extremities or dizziness [facility] Medical History (Updated 11/07/24 @ 18:42 by Carl Flores MD) High cholesterol ?E78.00 - Pure hypercholesterolemia, unspecified (ICD-10) HTN (hypertension) ?I10 - Essential (primary) hypertension (ICD-10) Heart attack ?I21.9 - Acute myocardial infarction, unspecified (ICD-10) IBS (irritable bowel syndrome) ?K58.9 - Irritable bowel syndrome, unspecified (ICD-10) Surgical History (Updated 10/03/24 @ 15:36 by Venita Alonso) H/O heart artery stent ?Z95.5 - Presence of coronary angioplasty implant and graft (ICD-10) Social History Little interest or pleasure in doing things: not at all Feeling down, depressed, or hopeless: not at all Exam Constitutional Vital Signs, click to edit/add: Last Vital Signs Temp 98.1 F 11/07/24 16:13 Pulse 65 11/07/24 16:13 Resp 18 11/07/24 16:13 BP 142/77 H 11/07/24 16:13 Pulse Ox 98 11/07/24 16:13 O2 Del Method Room Air 11/07/24 16:13 Common normals: no apparent distress and oriented x3 General appearance: cooperative [facility] Common normals: moist oral mucous membranes Eye Common normals: PERRL, EOMs intact bilaterally, conjunctivae normal and no scleral icterus Neck & C-Spine Common normals: supple General: normal visual inspection Cervical spine: no cervical spine tenderness and no paracervical muscle tenderness Chest Chest: symmetrical chest wall rise Respiratory Common normals: normal respiratory effort Effort & inspection: able to speak in complete sentences and symmetric chest movement Cardio Common normals: regular rate Back & Pelvis Thoracic spine/upper back: normal to inspection; no thoracic spinal tenderness and no paraspinal muscle tenderness Lumbar spine/lower back: normal to inspection and paraspinal muscle tenderness Neuro Common normals: oriented x3, CN's II-XII intact bilaterally, moves all extremities and no focal motor deficits Sensorium/orientation: awake and alert Speech: speech normal Course Vital Signs Vital signs: Vital Signs Temperature 98.1 F 11/07/24 16:13 Pulse Rate 65 11/07/24 16:13 Respiratory Rate 18 11/07/24 16:13 Blood Pressure 142/77 H 11/07/24 16:13 Pulse Oximetry 98 11/07/24 16:13 Oxygen Delivery Method Room Air 11/07/24 16:13 Temperature 98.1 F 11/07/24 16:13 Pulse Rate 65 11/07/24 16:13 Respiratory Rate 18 11/07/24 16:13 Blood Pressure 142/77 H 11/07/24 16:13 Pulse Oximetry 98 11/07/24 16:13 Oxygen Delivery Method Room Air 11/07/24 16:13 MDM - Back Pain/Injury MDM Narrative Medical decision making narrative: X-rays of the right shoulder and right humerus were completed with no acute findings. CT scan showed a fracture deformity involving the superior endplate of L1 with mild vertebral body height loss; no retropulsion into the spinal canal is seen. The patient is ambulatory, distal sensation intact. Findings were discussed with the patient and her family. She preferred to be discharged home. She declined pain medication here. She is having difficulty raising her right arm; there is concern for a rotator cuff injury. She prefers to take Tylenol as directed for pain. Follow up with an orthopedist and a mechanical service specialist for further evaluation and treatment. Medical Records Attestation: I reviewed the patient's medical records. Imaging Data XR and CT: Attestation: I have reviewed the pertinent imaging results. Radiologist's impression: ITS Impressions Cervical Spine CT 11/07/24 16:35 IMPRESSION: NO CERVICAL SPINE FRACTURE Impression dictated by: Reginaldo Rivas Jr., D.O. 11/07/2024 6:03 PM Dictation Location: [employer] Electronically authenticated by: [id number] Y Date: 11/07/2024 18:03 Humerus X-Ray 11/07/24 16:35 IMPRESSION: NO ACUTE BONY PROCESS. Impression dictated by: Reginaldo Rivas Jr., D.O. 11/07/2024 6:05 PM Dictation Location: [place] Electronically authenticated by: [id number] Y Date: 11/07/2024 18:[address] 11/07/24 16:35 IMPRESSION: Fracture deformity involving the superior endplate of L1 with mild vertebral body height loss. No retropulsion into the spinal canal is seen. Impression dictated by: Reginaldo Rivas Jr., D.O. 11/07/2024 6:00 PM Dictation [facility] Electronically authenticated by: [id number] Y Date: 11/07/2024 18:00 Shoulder X-Ray 11/07/24 16:35 IMPRESSION: No acute bony process. Impression dictated by: Reginaldo Rivas Jr., D.O. 11/07/2024 5:56 PM Dictation Location: [facility] Electronically authenticated by: [id number] Y Date: 11/07/2024 17:56 Discharge Plan Discharge Chief Complaint: Back Pain/Injury Clinical Impression: Closed L1 vertebral fracture, Injury of right rotator cuff Patient Disposition: Home, Self-Care Time of Disposition Decision: 18:40 Condition: Good Mode of Transportation: Private Vehicle Prescriptions / Home Meds: New acetaminophen-codeine 300-30 mg tablet 1 tab PO Q6H PRN (Reason: pain) 5 Days Qty: 20 0RF No Action amlodipine 5 mg tablet 5 mg PO DAILY atorvastatin 80 mg tablet 80 mg PO QPM carvedilol 6.25 mg tablet 6.25 mg PO BID clopidogrel 75 mg tablet 75 mg PO DAILY dicyclomine 20 mg tablet 20 mg PO BID losartan 50 mg tablet 50 mg PO BID omeprazole 40 mg capsule,delayed release(DR/EC) 40 mg PO DAILY PRN (Reason: gerd) aspirin 81 mg capsule 81 mg PO DAILY nitroglycerin 0.4 mg tablet, sublingual 0.4 mg buccal Q5M PRN (Reason: chest pain) prednisone 10 mg tablet 10 mg PO DAILY Print Language: Greenlandic Instructions: Rotator Cuff Injury (ED), Thoracolumbar Fracture (ED), Kyphoplasty (DC) Additional Instructions: Tylenol for pain Referrals: Branden Du DO [Primary Care Provider, Internal Medicine] - 1 week LUIS CARLOS HARRIS [Physician, Neurosurgery] MINERVA CYR [Referring] Discharge Date/Time: 11/07/24 19:12
[2024-11-07] MEDS: ACETAMINOPHEN 300 MG/ 30 MG CODEINE TABLET 1 TAB PO (19:10)
== END 2024-11-07 19:12 | disposition home or self-care (01) ==
PROVIDERS: Emergency Provider Emergency Medicine; PCP Internal Medicine
DX: S32.010A Wedge compression fracture of first lumbar vertebra, initial encounter for closed fracture (principal); S46.011A Strain of muscle(s) and tendon(s) of the rotator cuff of right shoulder, initial encounter; W18.30XA Fall on same level, unspecified, initial encounter; Y93.H2 Activity, gardening and landscaping; M54.50 Low back pain, unspecified; M25.511 Pain in right shoulder; M79.621 Pain in right upper arm
CPT/HCPCS: 72125; 72131; 73030; 73060; 99284

== ENCOUNTER 2024-11-16 15:57 | Emergency (ER) | payer MEDICARE, SELFPAY ==
[2024-11-16 16:07] VITALS: BP 152/93; PULSE 68; O2SAT 98; BMI 26.8
--- NOTE | 2024-11-16 16:32 | ECG_ITS ---
The [facility] Test Date: 2024-11-16 Pat Name: EVER BREWER Department: Room: - Gender: Female Graphics Coordinator: : 1940 Requested By: [id number] Order Number: [id number] Reading MD: YESSENIA HENDERSON Measurements Intervals [place] Rate: 65 P: 42 FL: 140 QRS: -42 QRSD: 94 T: 150 QT: 384 QTc: 395 Interpretive Statements 1100 Sinus rhythm 2440 Incomplete right bundle branch block 4068 Nonspecific [place] abnormality 7200 Abnormal left axis deviation 9130 borderline ECG Compared to ECG 10/03/2024 15:30:31 No significant changes Electronically Signed On 11-18-2024 15:53:23 EDT by YESSENIA HENDERSON
--- OUTSIDE RECORDS SUMMARY | 2024-11-16 16:33 | XMS_ITS | CCD ---
Author Organization [facility] CliniSymn Care Team Providers Care Hygiene Teacher Name Role Phone Unavailable Primary Care Provider [...] Care Provider DO Branden Du Attending Provider [phone] FLAKITA Álvarez Emergency Provider DO Branden Du Primary Care Provider DO Reji Saenz Admit Provider DO Reji Saenz Attending Provider MD Sobia Okeefe Other Provider DO Rona Andres Emergency Provider Dmitry NATION, Maura Unavailable Unavailable Branden Du DO Primary Care Provider Branden Du DO Primary Care Provider Aleshia LOZANO, Sylvester Lozano Attending Provider Vanessa Dave APRN Attending Provider Branden Du DO Attending Provider Sobia Okeefe MD Attending Provider [phone] Laurie Mills MD Attending Provider Branden Du Primary Care Unavailable Rona Andres Admitting Unavailable Rona Andres Attending Unavailable Laurie Mills Attending Unavailable Laurie Mills Admitting Unavailable Reji Saenz Admitting Unavailable Reji Saenz Attending Unavailable Branden Du Primary Care Unavailable Sobia Okeefe Consulting Unavaila ble Branden Du DO Primary Care Provider VANESSA DAVE Attending Unavailable VANESSA DAVE Referring Unavailable BRANDEN DU Primary Care Unavailable INDERJIT [...] Translations: [PENICILLINS] Drug allergy (disorder) 4 [facility] Repository (12 sources) Substance with penicillin structure and antibacterial mechanism of action (substance) Drug allergy 4 Unknown [place] Other (2 sources) Penicillins Propensity to adverse reactions 4 Unknown [facility] (3 sources) Penicillins Propensity to adverse reactions 4 Unknown [facility] (1 source) Penicillins Drug allergy (disorder) 5 [facility] Repository Medications Current Medications Medication Drug Class(es) [...] (Dr/Ec) Active 81 MG PO Daily 90 90 October 29, 2023 12:00am Complies [...] tablet Active 6.25 MG PO Twice daily September 30, 2024 12:00am must administer with [...] 1 PATCH TRANSDERML Every 72 hours 4 7 March 23, 2024 12:00am Sod Picosulf-Mag Ox-Citric [...] Coronary arteriosclerosis; Translations: [Atherosclerotic heart disease of [place] coronary artery without angina pectoris] Onset: 11-07-2023 [...] Nausea Episodic Other aftercare (1 source) 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; 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] Onset: 05-22-2022 Episodic Other [...] Basophils (Bld) [#/Vol] 0.0 10 3/uL 0.0-0.1 [facility] Basophils/100 WBC Auto (Bld) Ordered By: Laurie Mills on 10-03-2024 Basophils/100 WBC (Bld) 0.5 % 0.2-2.0 [facility] Eosinophils/100 WBC Auto (Bl d)Ordered By: Laurie Mills on 10-03-2024 Eosinophils/100 WBC (Bld) 1.1 % 0.9-7.0 [facility] Erythrocyte distribution wid th Auto (RBC) [Ratio]Ordered By: Laurie Lina on 10-03-2024 Erythrocyte distribution width (RBC) [Ratio] 13.3 % 11.0-15.0 [facility] Estimated glomerular filtrat ion rate (GFR) non- AmericanOrdered By: Laurie Lina on 10-03-2024 GFR/1.73 sq M.predicted among non-blacks MDRD (S/P/Bld) [Vol rate/Area] mL/min/{1.73_m2} >=60 mL/min/1.7 3m 2 [facility] Globulin Calc (S) [Mass/Vol] Ordered By: [facility] on 10-03-2024 Globulin (S) [Mass/Vol] 3.2 g/dL [facility] Hematocrit Auto (Bld) [Volum e fraction]Ordered By: [facility] on 10-03-2024 Hematocrit (Bld) [Volume fraction] 39.3 % 36.0-48.0 [facility] Hemoglobin [Mass/volume] in BloodOrdered By: Laurie Lina on 10-03-2024 Hemoglobin (Bld) [Mass/Vol] 13.3 g/dL 12.0-16.0 [facility] Laboratory - Chemistry and C hemistry - challengeOrdered By: Laurie Diab on 10-03-2024 Bilirubin Ql (U) Negative NEGATIVE [facility] Glucose (U) [Mass/Vol] Negative NEGATIVE [facility] Ketones Ql (U) Negative NEGATIVE [facility] pH (U) 6.0 [pH] 5.0-9.0 [facility] Specific gravity (U) [Rel density] <=1.005 Abnormal 1.005-1.02 5 [facility] Urobilinogen Qn (U) 0.2 {Mio'U}/dL 0.2-1.0 [facility] Albumin [Mass/Vol] 3.5 g/dL 3.4-5.0 [facility] ALP [Catalytic activity/Vol] 109 U/L 46-116 [facility] ALT [Catalytic activity/Vol] 30 U/L 14-59 [facility] AST [Catalytic activity/Vol] 15 U/L 15-37 [facility] Bilirubin [Mass/Vol] 0.4 mg/dL 0.2-1.0 [facility] Calcium [Mass/Vol] 9.5 mg/dL 8.5-10.1 [facility] Chloride [Moles/Vol] 104 mmol/L 98-107 [facility] CO2 [Moles/Vol] 26.7 mmol/L 21.0-32.0 [facility] Creatinine [Mass/Vol] 0.82 mg/dL 0.55-1.02 [facility] GFR/1.73 sq M.predicted MDRD (S/P/Bld) [Vol rate/Area] mL/min/{1.73_m2} >=60 mL/min/1.7 3m 2 [facility] Glucose [Mass/Vol] 112 mg/dL High 74-106 [facility] Potassium [Moles/Vol] 3.8 mmol/L 3.5-5.1 [facility] Protein [Mass/Vol] 6.7 g/dL 6.4-8.2 [facility] Sodium [Moles/Vol] 140 mmol/L 136-145 [facility] Urea nitrogen [Mass/Vol] 25.0 mg/dL High 7.0-18.0 [facility] Urea nitrogen/Creatinine [Mass ratio] 30.5 mg/mg [facility] Laboratory - Hematology and Cell countsOrdered By: Laurie Mills on 10-03-2024 Immature granulocytes/100 WBC (Bld) 0.2 % 0.0-0.5 [facility] - Specimen inform ationOrdered By: Laurie Mills on 10-03-2024 Appearance (U) CLEAR CLEAR [facility] Color (U) LT. YELLOW YELLOW [facility] - UrinalysisOrder ed By: Laurie Milsl on 10-03-2024 Leukocyte esterase Test strip Ql (U) SMALL Abnormal NEGATIVE [facility] Mucus Ql (Urine sed) NONE SEEN NONE SEEN [facility] Nitrite Ql (U) Negative NEGATIVE [facility] Protein Ql (U) Negative NEG/TRACE [facility] Leukocytes [#/volume] correc kristi for nucleated erythrocytes in Blood by Automated counOrdered By: Laurie Mills on 10-03-2024 WBC corrected for nucl RBC Auto (Bld) [#/Vol] 6.1 10 3/uL 4.0-11.0 [facility] Lymphocytes Auto (Bld) [#/Vo l]Ordered By: Laurie Mills on 10-03-2024 Lymphocytes (Bld) [#/Vol] 1.4 10 3/uL 1.2-3.8 [facility] Lymphocytes/100 WBC Auto (Bl d)Ordered By: Laurie Mills on 10-03-2024 Lymphocytes/100 WBC (Bld) 22.6 % 20.5-60.0 [facility] MCH Auto (RBC) [Entitic mass ]Ordered By: Laurie Mills on 10-03-2024 MCH (RBC) [Entitic mass] 32.9 pg 26.7-34.0 [facility] MCHC Auto (RBC) [Mass/Vol]Or dered By: Laurie Mills on 10-03-2024 MCHC (RBC) [Mass/Vol] 33.8 g/dL 29.9-35.2 [facility] MCV Auto (RBC) [Entitic vol] Ordered By: Laurie Mills on 10-03-2024 MCV (RBC) [Entitic vol] 97.3 fL 81.0-99.0 [facility] Monocytes Auto (Bld) [#/Vol] Ordered By: Laurie Mills on 10-03-2024 Monocytes (Bld) [#/Vol] 0.7 10 3/uL 0.3-0.8 [facility] Monocytes/100 WBC Auto (Bld) Ordered By: Laurie Mills on 10-03-2024 Monocytes/100 WBC (Bld) 12.1 % High 1.7-12.0 [facility] Neutrophils Auto (Bld) [#/Vo l]Ordered By: Laurie Mills on 10-03-2024 Neutrophils (Bld) [#/Vol] 3.9 10 3/uL 1.4-6.5 [facility] Neutrophils/100 WBC Auto (Bl d)Ordered By: Laurie Mills on 10-03-2024 Neutrophils/100 WBC (Bld) 63.5 % 43.0-75.0 [facility] No Panel InformationOrdered By: Laurie Mills on 10-03-2024 Urine Bacteria SMALL #/HPF Abnormal NONE SEEN [facility] Urine Culture Reflexed YES-[place] Urine Microscopic Review YES [facility] Urine Occult Blood TRACE-L NEGATIVE [facility] Urine Other Casts NONE SEEN #/LPF NONE SEEN [facility] Urine Other Crystals None Seen #/HPF None Seen [facility] Urine RBC 2-5 #/HPF Abnormal 0-2 [facility] Urine Squamous Epithelial Cells RARE #/LPF NONE/RARE [facility] Urine WBC 5-10 #/HPF Abnormal NONE SEEN [facility] Eosinophils # (Auto) 0.1 10 3/uL 0.0-0.7 [facility] Immature Granulocyte # (Auto) 0.01 10 3/uL 0.00-0.03 [facility] Troponin I High Sensitivity 5.7 pg/mL 4.0-51.3 [facility] Comment on above: CUT-OFF POINTS HAVE BEEN [...] volume (Bld) [Entitic vol] 9.6 fL 9.5-13.5 [facility] Platelets Auto (Bld) [#/Vol] Ordered By: Laurie Mills on 10-03-2024 Platelets (Bld) [#/Vol] 250 10 3/uL 150-450 [facility] RBC Auto (Bld) [#/Vol]Ordere d By: Laurie Mills on 10-03-2024 RBC (Bld) [#/Vol] 4.04 10 6/uL Low 4.20-5.40 [facility] Serum or plasma albumin/glob ulin mass ratioOrdered By: Laurie Mills on 10-03-2024 Albumin/Globulin [Mass ratio] 1.1 {ratio} [facility] Serum or plasma anion gap de terminationOrdered By: Laurie Mills on 10-03-2024 Anion gap [Moles/Vol] 13.1 mmol/L [facility] Urine Cultureon 10-03-2024 Bacteria identified Cx Nom (U) ORGANISM: Escherichia coli (MDRO) (O:ESCCOLMDRO) [place] Count >100,000 * This is a corrected [...] RESISTANT TO ALL B-LACTAM DRUGS. PERFORMED BY: [facility] [address] [place] [address] PATHOLOGIST GREEN MATERIAL VALUE ADDED ASSESSOR CANDELARIA Dumont [facility] Comment on above: Performed By: #### C UU #### [facility] [address] Urine cultureOrdered By: Anisa Mills on 10-03-2024 Bacteria identified Cx Nom (U) Escherichia coli (MDRO) Abnormal [facility] Basophils Auto (Bld) [#/Vol] on 08-05-2024 Basophils (Bld) [#/Vol] Automated basophil count 0.0-0.[address] [facility] Basophils (Bld) [#/Vol] 0.0 10 3/uL 0.0-0.1 [facility] Basophils/100 WBC Auto (Bld) on 08-05-2024 Basophils/100 WBC (Bld) Automated basophil % 0.2-2.0 [facility] Basophils/100 WBC (Bld) 0.6 % 0.2-2.0 [facility] Eosinophils/100 WBC Auto (Bl d)on 08-05-2024 Eosinophils/100 WBC (Bld) Automated eosinophil % 0.9-7.0 [facility] Eosinophils/100 WBC (Bld) 0.9 % 0.9-7.0 [facility] Erythrocyte distribution wid th Auto (RBC) [Ratio]on 08-05-2024 Erythrocyte distribution width (RBC) [Ratio] Erythrocyte distribution width [Ratio] by Automated count 11.0-15.0 [facility] Erythrocyte distribution width (RBC) [Ratio] 13.9 % 11.0-15.0 [facility] Estimated glomerular filtrat ion rate (GFR) non- Americanon 08-05-2024 GFR/1.73 sq M.predicted among non-blacks MDRD (S/P/Bld) [Vol rate/Area] Estimated glomerular filtration rate (GFR) non- Low >=60 mL/min/1.7 3m 2 [facility] GFR/1.73 sq M.predicted among non-blacks MDRD (S/P/Bld) [Vol rate/Area] 58 mL/min/{1.73_m2} Low >=60 mL/min/1.7 3m 2 [facility] Hematocrit Auto (Bld) [Volum e fraction]on 08-05-2024 Hematocrit (Bld) [Volume fraction] Hematocrit [Volume Fraction] of Blood by Automated count 36.0-48.0 [facility] Hematocrit (Bld) [Volume fraction] 39.6 % 36.0-48.0 [facility] Hemoglobin [Mass/volume] in Bloodon 08-05-2024 Hemoglobin (Bld) [Mass/Vol] Hemoglobin [Mass/volume] in Blood 12.0-16.0 [facility] Hemoglobin (Bld) [Mass/Vol] 13.3 g/dL 12.0-16.0 [facility] Laboratory - Chemistry and C hemistry - challengeon 08-05-2024 Calcium [Mass/Vol] 9.7 mg/dL 8.5-10.1 [facility] Chloride [Moles/Vol] 107 mmol/L 98-107 [facility] CO2 [Moles/Vol] 24.2 mmol/L 21.0-32.0 [facility] Creatinine [Mass/Vol] 0.92 mg/dL 0.55-1.02 [facility] GFR/1.73 sq M.predicted MDRD (S/P/Bld) [Vol rate/Area] mL/min/{1.73_m2} >=60 mL/min/1.7 3m 2 [facility] Glucose [Mass/Vol] 86 mg/dL 74-106 [facility] Potassium [Moles/Vol] 3.6 mmol/L 3.5-5.1 [facility] Sodium [Moles/Vol] 140 mmol/L 136-145 [facility] TSH Qn 1.563 m[IU]/L 0.358-3.74 0 [facility] Urea nitrogen [Mass/Vol] 15.0 mg/dL 7.0-18.0 [facility] Urea nitrogen/Creatinine [Mass ratio] 16.3 mg/mg [facility] Laboratory - Hematology and Cell countson 08-05-2024 Immature granulocytes/100 WBC (Bld) 0.2 % 0.0-0.5 [facility] Leukocytes [#/volume] correc kristi for nucleated erythrocytes in Blood by Automated counon 08-05-2024 WBC corrected for nucl RBC Auto (Bld) [#/Vol] Leukocytes [#/volume] corrected for nucleated erythrocytes in Blood by Automated coun 4.0-11.0 [facility] WBC corrected for nucl RBC Auto (Bld) [#/Vol] 6.3 10 3/uL 4.0-11.0 [facility] Lymphocytes Auto (Bld) [#/Vo l]on 08-05-2024 Lymphocytes (Bld) [#/Vol] Lymphocytes [#/volume] in Blood by Automated count 1.2-3.8 [facility] Lymphocytes (Bld) [#/Vol] 1.8 10 3/uL 1.2-3.8 [facility] Lymphocytes/100 WBC Auto (Bl d)on 08-05-2024 Lymphocytes/100 WBC (Bld) Lymphocytes/100 leukocytes in Blood by Automated count 20.5-60.0 [facility] Lymphocytes/100 WBC (Bld) 28.0 % 20.5-60.0 [facility] MCH Auto (RBC) [Entitic mass ]on 08-05-2024 MCH (RBC) [Entitic mass] MCH [Entitic mass] by Automated count 26.7-34.0 [facility] MCH (RBC) [Entitic mass] 32.5 pg 26.7-34.0 [facility] MCHC Auto (RBC) [Mass/Vol]on 08-05-2024 MCHC (RBC) [Mass/Vol] MCHC [Mass/volume] by Automated count 29.9-35.2 [facility] MCHC (RBC) [Mass/Vol] 33.6 g/dL 29.9-35.2 [facility] MCV Auto (RBC) [Entitic vol] on 08-05-2024 MCV (RBC) [Entitic vol] MCV [Entitic volume] by Automated count 81.0-99.0 [facility] MCV (RBC) [Entitic vol] 96.8 fL 81.0-99.0 [facility] Monocytes Auto (Bld) [#/Vol] on 08-05-2024 Monocytes (Bld) [#/Vol] Automated blood monocyte count 0.3-0.8 [facility] Monocytes (Bld) [#/Vol] 0.6 10 3/uL 0.3-0.8 [facility] Monocytes/100 WBC Auto (Bld) on 08-05-2024 Monocytes/100 WBC (Bld) Automated monocyte % 1.7-12.0 [facility] Monocytes/100 WBC (Bld) 9.7 % 1.7-12.0 [facility] Neutrophils Auto (Bld) [#/Vo l]on 08-05-2024 Neutrophils (Bld) [#/Vol] Neutrophils [#/volume] in Blood by Automated count 1.4-6.5 [facility] Neutrophils (Bld) [#/Vol] 3.8 10 3/uL 1.4-6.5 [facility] Neutrophils/100 WBC Auto (Bl d)on 08-05-2024 Neutrophils/100 WBC (Bld) Automated neutrophil % 43.0-75.0 [facility] Neutrophils/100 WBC (Bld) 60.6 % 43.0-75.0 [facility] No Panel Informationon 08-05 Eosinophils # (Auto) 0.1 10 3/uL 0.0-0.7 [facility] Immature Granulocyte # (Auto) 0.01 10 3/uL 0.00-0.03 [facility] Platelet mean volume Auto (B ld) [Entitic vol]on 08-05-2024 Platelet mean volume (Bld) [Entitic vol] Platelet mean volume [Entitic volume] in Blood by Automated count 9.5-13.5 [facility] Platelet mean volume (Bld) [Entitic vol] 9.8 fL 9.5-13.5 [facility] Platelets Auto (Bld) [#/Vol] on 08-05-2024 Platelets (Bld) [#/Vol] Platelets [#/volume] in Blood by Automated count 150-450 [facility] Platelets (Bld) [#/Vol] 265 10 3/uL 150-450 [facility] RBC Auto (Bld) [#/Vol]on RBC (Bld) [#/Vol] Erythrocytes [#/volu me] in Blood by Automated count Low 4.20-5.40 [facility] RBC (Bld) [#/Vol] 4.09 10 6/uL Low 4.20-5.40 [facility] Serum or plasma anion gap de terminationon 08-05-2024 Anion gap [Moles/Vol] Serum or plasma an ion gap determination [facility] Anion gap [Moles/Vol] 12.4 mmol/L [facility] Basophils Auto (Bld) [#/Vol] on 04-28-2024 Basophils (Bld) [#/Vol] Automated basophil count 0.0-0.[address] [facility] Basophils/100 WBC Auto (Bld) on 04-28-2024 Basophils/100 WBC (Bld) Automated basophil % 0.2-2.0 [facility] Eosinophils/100 WBC Auto (Bl d)on 04-28-2024 Eosinophils/100 WBC (Bld) Automated eosinophil % Low 0.9-7.0 [facility] Erythrocyte distribution wid th Auto (RBC) [Ratio]on 04-28-2024 Erythrocyte distribution width (RBC) [Ratio] Erythrocyte distribution width [Ratio] by Automated count 11.0-15.0 [facility] Hematocrit Auto (Bld) [Volum e fraction]on 04-28-2024 Hematocrit (Bld) [Volume fraction] Hematocrit [Volume Fraction] of Blood by Automated count 36.0-48.0 [facility] Hemoglobin [Mass/volume] in Bloodon 04-28-2024 Hemoglobin (Bld) [Mass/Vol] Hemoglobin [Mass/volume] in Blood 12.0-16.0 [facility] Laboratory - Chemistry and C hemistry - challengeon 04-28-2024 Cobalamin (Vitamin B12) [Mass/Vol] 811 pg/mL [id number] [facility] Comment on above: Performed at: [address] [id number] Director: Aime Fabian PhD, Phone: [phone] TSH Qn 2.025 m[IU]/L 0.358-3.74 0 [facility] Laboratory - Hematology and Cell countson 04-28-2024 Immature granulocytes/100 WBC (Bld) 0.1 % 0.0-0.5 [facility] Leukocytes [#/volume] correc kristi for nucleated erythrocytes in Blood by Automated counon 04-28-2024 WBC corrected for nucl RBC Auto (Bld) [#/Vol] Leukocytes [#/volume] corrected for nucleated erythrocytes in Blood by Automated coun 4.0-11.0 [facility] Lymphocytes Auto (Bld) [#/Vo l]on 04-28-2024 Lymphocytes (Bld) [#/Vol] Lymphocytes [#/volume] in Blood by Automated count 1.2-3.8 [facility] Lymphocytes/100 WBC Auto (Bl d)on 04-28-2024 Lymphocytes/100 WBC (Bld) Lymphocytes/100 leukocytes in Blood by Automated count 20.5-60.0 [facility] MCH Auto (RBC) [Entitic mass ]on 04-28-2024 MCH (RBC) [Entitic mass] MCH [Entitic mass] by Automated count 26.7-34.0 [facility] MCHC Auto (RBC) [Mass/Vol]on 04-28-2024 MCHC (RBC) [Mass/Vol] MCHC [Mass/volume] by Automated count 29.9-35.2 [facility] MCV Auto (RBC) [Entitic vol] on 04-28-2024 MCV (RBC) [Entitic vol] MCV [Entitic volume] by Automated count 81.0-99.0 [facility] Monocytes Auto (Bld) [#/Vol] on 04-28-2024 Monocytes (Bld) [#/Vol] Automated blood monocyte count 0.3-0.8 [facility] Monocytes/100 WBC Auto (Bld) on 04-28-2024 Monocytes/100 WBC (Bld) Automated monocyte % 1.7-12.0 [facility] Neutrophils Auto (Bld) [#/Vo l]on 04-28-2024 Neutrophils (Bld) [#/Vol] Neutrophils [#/volume] in Blood by Automated count 1.4-6.5 [facility] Neutrophils/100 WBC Auto (Bl d)on 04-28-2024 Neutrophils/100 WBC (Bld) Automated neutrophil % 43.0-75.0 [facility] No Panel Informationon 04-28 Eosinophils # (Auto) 0.1 10 3/uL 0.0-0.7 [facility] Immature Granulocyte # (Auto) 0.01 10 3/uL 0.00-0.03 [facility] Platelet mean volume Auto (B ld) [Entitic vol]on 04-28-2024 Platelet mean volume (Bld) [Entitic vol] Platelet mean volume [Entitic volume] in Blood by Automated count 9.5-13.5 [facility] Platelets Auto (Bld) [#/Vol] on 04-28-2024 Platelets (Bld) [#/Vol] Platelets [#/volume] in Blood by Automated count 150-450 [facility] RBC Auto (Bld) [#/Vol]on RBC (Bld) [#/Vol] Erythrocytes [#/volu me] in Blood by Automated count Low 4.20-5.40 [facility] Serum or plasma methylmalona te measurement (moles/volume)on 04-28-2024 Methylmalonate [Moles/Vol] Serum or plasma methylmalonate measurement (moles/volume) 0-378 [facility] Comment on above: This test was develo ped and its performance characteristicsdetermined by [facility]. It has not been cleared orapproved by the Food and Drug Administration.Performed at: [address] [id number] Director: Guanaco Russell MD, Phone: [phone] Basophils Auto (Bld) [#/Vol] on 03-12-2024 Basophils (Bld) [#/Vol] Automated basophil count 0.0-0.[address] [facility] Basophils/100 WBC Auto (Bld) on 03-12-2024 Basophils/100 WBC (Bld) Automated basophil % 0.2-2.0 [facility] Cholesterol in LDL Calc [Mas s/Vol]on 03-12-2024 Cholesterol in LDL [Mass/Vol] Cholesterol in LDL [Mass/volume] in Serum or Plasma by calculation [facility] Comment on above: <100 mg/dl [id number] 0-129 mg/dl NEAR OR ABOVE [id number] mg/dl BORDERLINE [id number] mg/dl HIGH>190 mg/dl VERY HIGH Cholesterol in VLDL Calc [Ma ss/Vol]on 03-12-2024 Cholesterol in VLDL [Mass/Vol] Cholesterol in VLDL [Mass/volume] in Serum or Plasma by calculation [facility] Eosinophils/100 WBC Auto (Bl d)on 03-12-2024 Eosinophils/100 WBC (Bld) Automated eosinophil % Low 0.9-7.0 [facility] Erythrocyte distribution wid th Auto (RBC) [Ratio]on 03-12-2024 Erythrocyte distribution width (RBC) [Ratio] Erythrocyte distribution width [Ratio] by Automated count 11.0-15.0 [facility] Estimated glomerular filtrat ion rate (GFR) non- Americanon 03-12-2024 GFR/1.73 sq M.predicted among non-blacks MDRD (S/P/Bld) [Vol rate/Area] Estimated glomerular filtration rate (GFR) non- Low >=60 mL/min/1.7 3m 2 [facility] Globulin Calc (S) [Mass/Vol] on 03-12-2024 Globulin (S) [Mass/Vol] Serum globulin measurement by calculation (mass/volume) [facility] Hematocrit Auto (Bld) [Volum e fraction]on 03-12-2024 Hematocrit (Bld) [Volume fraction] Hematocrit [Volume Fraction] of Blood by Automated count 36.0-48.0 [facility] Hemoglobin [Mass/volume] in Bloodon 03-12-2024 Hemoglobin (Bld) [Mass/Vol] Hemoglobin [Mass/volume] in Blood 12.0-16.0 [facility] IgA [Mass/volume] in Serum o r Plasmaon 03-12-2024 IgA [Mass/Vol] IgA [Mass/volume] in Serum or Plasma [id number] [facility] Comment on above: Performed at: [address] [id number] Director: Aime Fabian PhD, Phone: [phone] Laboratory - Chemistry and C hemistry - challengeon 03-12-2024 Albumin [Mass/Vol] 3.5 g/dL 3.4-5.0 [facility] ALP [Catalytic activity/Vol] 123 U/L High 46-116 [facility] ALT [Catalytic activity/Vol] 32 U/L 14-59 [facility] AST [Catalytic activity/Vol] 17 U/L 15-37 [facility] Bilirubin [Mass/Vol] 0.6 mg/dL 0.2-1.0 [facility] Calcium [Mass/Vol] 9.1 mg/dL 8.5-10.1 [facility] Chloride [Moles/Vol] 107 mmol/L 98-107 [facility] Cholesterol [Mass/Vol] 199 mg/dL <=200 [facility] Cholesterol in HDL [Mass/Vol] 128 mg/dL High 40-60 [facility] Comment on above: > or =60 mg/dl - LOW CARDIOVASCULAR RISK<40 mg/dl - HIGH CARDIOVASCULAR RISK CO2 [Moles/Vol] 25.5 mmol/L 21.0-32.0 [facility] Creatinine [Mass/Vol] 0.97 mg/dL 0.55-1.02 [facility] GFR/1.73 sq M.predicted MDRD (S/P/Bld) [Vol rate/Area] mL/min/{1.73_m2} >=60 mL/min/1.7 3m 2 [facility] Glucose [Mass/Vol] 91 mg/dL 74-106 [facility] Potassium [Moles/Vol] 3.7 mmol/L 3.5-5.1 [facility] Protein [Mass/Vol] 6.8 g/dL 6.4-8.2 [facility] Sodium [Moles/Vol] 143 mmol/L 136-145 [facility] Triglyceride [Mass/Vol] 65 mg/dL <=150 [facility] Urea nitrogen [Mass/Vol] 15.0 mg/dL 7.0-18.0 [facility] Urea nitrogen/Creatinine [Mass ratio] 15.5 mg/mg [facility] Laboratory - Hematology and Cell countson 03-12-2024 Immature granulocytes/100 WBC (Bld) 0.1 % 0.0-0.5 [facility] Leukocytes [#/volume] correc kristi for nucleated erythrocytes in Blood by Automated counon 03-12-2024 WBC corrected for nucl RBC Auto (Bld) [#/Vol] Leukocytes [#/volume] corrected for nucleated erythrocytes in Blood by Automated coun 4.0-11.0 [facility] Lymphocytes Auto (Bld) [#/Vo l]on 03-12-2024 Lymphocytes (Bld) [#/Vol] Lymphocytes [#/volume] in Blood by Automated count 1.2-3.8 [facility] Lymphocytes/100 WBC Auto (Bl d)on 03-12-2024 Lymphocytes/100 WBC (Bld) Lymphocytes/100 leukocytes in Blood by Automated count 20.5-60.0 [facility] MCH Auto (RBC) [Entitic mass ]on 03-12-2024 MCH (RBC) [Entitic mass] MCH [Entitic mass] by Automated count 26.7-34.0 [facility] MCHC Auto (RBC) [Mass/Vol]on 03-12-2024 MCHC (RBC) [Mass/Vol] MCHC [Mass/volume] by Automated count 29.9-35.2 [facility] MCV Auto (RBC) [Entitic vol] on 03-12-2024 MCV (RBC) [Entitic vol] MCV [Entitic volume] by Automated count 81.0-99.0 [facility] Monocytes Auto (Bld) [#/Vol] on 03-12-2024 Monocytes (Bld) [#/Vol] Automated blood monocyte count 0.3-0.8 [facility] Monocytes/100 WBC Auto (Bld) on 03-12-2024 Monocytes/100 WBC (Bld) Automated monocyte % 1.7-12.0 [facility] Neutrophils Auto (Bld) [#/Vo l]on 03-12-2024 Neutrophils (Bld) [#/Vol] Neutrophils [#/volume] in Blood by Automated count 1.4-6.5 [facility] Neutrophils/100 WBC Auto (Bl d)on 03-12-2024 Neutrophils/100 WBC (Bld) Automated neutrophil % 43.0-75.0 [facility] No Panel Informationon 03-12 Endomysial IgA Antibody Negative Negative [facility] Eosinophils # (Auto) 0.1 10 3/uL 0.0-0.7 [facility] Immature Granulocyte # (Auto) 0.01 10 3/uL 0.00-0.03 [facility] Platelet mean volume Auto (B ld) [Entitic vol]on 03-12-2024 Platelet mean volume (Bld) [Entitic vol] Platelet mean volume [Entitic volume] in Blood by Automated count 9.5-13.5 [facility] Platelets Auto (Bld) [#/Vol] on 03-12-2024 Platelets (Bld) [#/Vol] Platelets [#/volume] in Blood by Automated count 150-450 [facility] RBC Auto (Bld) [#/Vol]on RBC (Bld) [#/Vol] Erythrocytes [#/volu me] in Blood by Automated count Low 4.20-5.40 [facility] Serum gliadin peptide IgA an tibody assay (units/volume)on 03-12-2024 Gliadin peptide IgA Qn (S) Serum gliadin peptide IgA antibody assay (units/volume) [facility] Comment on above: Negative 0 - 19 Weak Positive 20 - 30 Moderate to Strong Positive >30 Serum gliadin peptide IgG an tibody assay (units/volume)on 03-12-2024 Gliadin peptide IgG Qn (S) Serum gliadin peptide IgG antibody assay (units/volume) 0 [facility] Comment on above: Negative 0 - 19 Weak Positive 20 - 30 Moderate to Strong Positive >30 Serum or plasma albumin/glob ulin mass ratioon 03-12-2024 Albumin/Globulin [Mass ratio] Serum or plasma albumin/globulin mass ratio [facility] Serum or plasma anion gap de terminationon 03-12-2024 Anion gap [Moles/Vol] Serum or plasma an ion gap determination [facility] Serum or plasma total choles terol/high density lipoprotein (HDL) cholesterol mass henry 03-12-2024 Cholesterol.total/Cho lesterol in HDL [Mass ratio] Serum or plasma total cholesterol/high density lipoprotein (HDL) cholesterol mass rat [facility] Comment on above: 3.3 - 4.4 LOW RISK4. 4 - 7.1 AVERAGE RISK7.1 - 11.0 MODERATE RISK>11.0 HIGH RISK Serum tissue transglutaminas e (tTG) IgA antibody assay (units/volume)on 03-12-2024 tTG IgA Qn (S) Serum tissue transglutaminase (tTG) IgA antibody assay (units/volume) 0-3 [facility] Comment on above: Negative 0 - 3 [...] (tTG) IgG antibody assay (units/volume) Abnormal 0-5 [facility] Comment on above: Negative 0 - 5 Weak Positive 6 - 9 Positive >9 ECG 12 Leadon 12-20-2023 Normal sinus rhythm, leftward axis, low voltage, nonspecific ST-T wave abnormality, abnormal ECG [facility] Work Phone: Activated partial thrombopla stin time (aPTT) in platelet poor plasma by coagulation aOrdered By: PROVIDER TEMP on 11-05-2023 aPTT Coag (PPP) [Time] 30.2 s 25.1-36.5 [facility] Comment on above: A hematocrit value g reater than 55% may lead to inaccurate results in coagulation testing. Patients having hematocrit values >55% require a special collection tube for coagulation studies. Please contact the laboratory at [phone] for redraw instructions. Alanine aminotransferase [En zymatic activity/volume] in Serum or PlasmaOrdered By: PROVIDER TEMP on 11-05-2023 ALT [Catalytic activity/Vol] 27 U/L Normal 7-52 [facility] Comment on above: Performed By: #### H S TROP, CBC, PT, BNP, CMP, CK, PTT #### [address] Albumin [Mass/volume] in Ser um or Plasma by Bromocresol green (BCG) dye binding methoOrdered By: PROVIDER TEMP on 11-05-2023 Albumin BCG dye [Mass/Vol] 4.1 g/dL 3.5-5.7 [facility] Alkaline phosphatase [Enzyma tic activity/volume] in Serum or PlasmaOrdered By: PROVIDER TEMP on 11-05-2023 ALP [Catalytic activity/Vol] 99 U/L Normal 34-104 [facility] Comment on above: Performed By: #### H S TROP, CBC, PT, BNP, CMP, CK, PTT #### [facility] [address] Aspartate aminotransferase [ Enzymatic activity/volume] in Serum or PlasmaOrdered By: PROVIDER TEMP on 11-05-2023 AST [Catalytic activity/Vol] 19 U/L Normal 13-39 [facility] Comment on above: Performed By: #### H S TROP, CBC, PT, BNP, CMP, CK, PTT #### [facility] [address] [place] [address] Automated basophil %Ordered By: PROVIDER TEMP on 11-05-2023 Basophils/100 WBC (Bld) 0.8 % Normal . [facility] Comment on above: Performed By: #### H S TROP, CBC, PT, BNP, CMP, CK, PTT #### [facility] [address] [place] [address] Automated basophil countOrde red By: PROVIDER TEMP on 11-05-2023 Basophils (Bld) [#/Vol] 0.1 10*3/uL Normal 0.0-0.2 [facility] Comment on above: Result Comment: PERF ORMED BY: [place] [address] PATHOLOGIST [employer] ADDED ASSESSOR KAYLIN ARDON M.D. Performed By: #### H S TROP, CBC, PT, BNP, CMP, CK, PTT #### [address] Automated blood monocyte cou ntOrdered By: PROVIDER TEMP on 11-05-2023 Monocytes (Bld) [#/Vol] 0.6 10*3/uL Normal 0.0-0.8 [facility] Comment on above: Performed By: #### H S TROP, CBC, PT, BNP, CMP, CK, PTT #### [facility] [address] [place] [address] Automated eosinophil %Ordere d By: PROVIDER TEMP on 11-05-2023 Eosinophils/100 WBC (Bld) 0.8 % Normal . [facility] Comment on above: Performed By: #### H S TROP, CBC, PT, BNP, CMP, CK, PTT #### [facility] [address] Automated eosinophil countOr dered By: PROVIDER TEMP on 11-05-2023 Eosinophils (Bld) [#/Vol] 0.1 10*3/uL Normal 0.0-0.45 [facility] Comment on above: Performed By: #### H S TROP, CBC, PT, BNP, CMP, CK, PTT #### [facility] [address] [place] [address] Automated monocyte %Ordered By: PROVIDER TEMP on 11-05-2023 Monocytes/100 WBC (Bld) 9.6 % Normal . [facility] Comment on above: Performed By: #### H S TROP, CBC, PT, BNP, CMP, CK, PTT #### [address] Automated neutrophil %Ordere d By: PROVIDER TEMP on 11-05-2023 Neutrophils/100 WBC (Bld) 73.8 % Normal . [facility] Comment on above: Performed By: #### H S TROP, CBC, PT, BNP, CMP, CK, PTT #### [facility] [address] [place] [address] BNP ser/plasOrdered By: PROV IDER TEMP on 11-05-2023 Natriuretic peptide B (Bld) [Mass/Vol] 293.0 pg/mL High 5-100 [facility] Comment on above: Result Comment: PERF ORMED BY: [place] [address] PATHOLOGIST [employer] ADDED ASSESSOR KAYLIN ARDON M.D. Performed By: #### H S TROP, CBC, PT, BNP, CMP, CK, PTT #### [facility] [address] Bilirubin.total [Mass/volume ] in Serum or PlasmaOrdered By: PROVIDER TEMP on 11-05-2023 Bilirubin [Mass/Vol] 0.5 mg/dL Normal 0.3-1.0 [facility] Comment on above: Performed By: #### H S TROP, CBC, PT, BNP, CMP, CK, PTT #### [facility] [address] [place] [id number] [facility] CT angio chest PE protocolon 11-05-2023 CT angio chest PE protocol [facility] [place] [address] [place] [address] CT Scan Report Signed Patient: Genny Brewer MR#: [id number] : 1940 Acct:[id number] Age/Sex: 83 / F ADM Date: 11/05/23 Loc: ER Room: Type: [facility] ER Attending Dr: Copies to: Rona [...] Endy Crowley M.D.11/05/2023 10:53 AM Dictation Location: [place] [address] Transcribed By: [facility] 11/05/23 1053 Dictated By: Endy Crowley II, MD 11/05/23 1045 Signed By: 11/05/23 1053 Normal [facility] Calcium [Mass/volume] in Ser um or PlasmaOrdered By: PROVIDER TEMP on 11-05-2023 Calcium [Mass/Vol] 9.6 mg/dL Normal 8.6-10.3 [facility] Comment on above: Performed By: #### H S TROP, CBC, PT, BNP, CMP, CK, PTT #### [facility] [address] [place] [address] [place] Carbon dioxide, total [Moles /volume] in Serum or PlasmaOrdered By: PROVIDER TEMP on 11-05-2023 CO2 [Moles/Vol] 22.2 mmol/L Normal 21.0-31.0 [facility] Comment on above: Performed By: #### H S TROP, CBC, PT, BNP, CMP, CK, PTT #### [facility] [address] [place] [id number] [place] Chloride [Moles/volume] in S carolyne or PlasmaOrdered By: PROVIDER TEMP on 11-05-2023 Chloride [Moles/Vol] 109 mmol/L High 98-107 [facility] Comment on above: Performed By: #### H S TROP, CBC, PT, BNP, CMP, CK, PTT #### [address] Complete Blood Count Auto Di ffon 11-05-2023 Mean Corpuscular HGB Conc 34.2 g/dL Normal 32.0-35.0 [facility] Comment on above: Performed By: #### H S TROP, CBC, PT, BNP, CMP, CK, PTT #### [address] Monocytes/100 WBC (Bld) 20.41 % High 0.00-20.00 [facility] Comment on above: Result Comment: For adults in ED, MDW > 20.0 may be associated with a higher risk of sepsis during the first 12 hrs of hospital admission Performed By: #### H S TROP, CBC, PT, BNP, CMP, CK, PTT #### [address] NRBC% 0.1 /100{WBC} Normal 0-0.5 [facility] Comment on above: Performed By: #### H S TROP, CBC, PT, BNP, CMP, CK, PTT #### [address] Comprehensive Metabolic Pane marianela 11-05-2023 Albumin [Mass/Vol] 4.1 g/dL Normal 3.5-5.7 [facility] Comment on above: Performed By: #### H S TROP, CBC, PT, BNP, CMP, CK, PTT #### [address] Creatinine Clr Calc Pharmacy 42.53 Normal [facility] Comment on above: Result Comment: PERF ORMED BY: [place] [address] PATHOLOGIST [employer] ADDED ASSESSOR KAYLIN ARDON M.D. Performed By: #### H S TROP, CBC, PT, BNP, CMP, CK, PTT #### [address] [place] [address] [place] GFR/1.73 sq M.predicted MDRD (S/P/Bld) [Vol rate/Area] mL/min/{1.73_m2} Normal [facility] Comment on above: Performed By: #### H S TROP, CBC, PT, BNP, CMP, CK, PTT #### [facility] [address] [place] [id number] [facility] Creatine kinase [Enzymatic a ctivity/volume] in Serum or PlasmaOrdered By: PROVIDER TEMP on 11-05-2023 CK [Catalytic activity/Vol] 66 U/L Normal 30-223 [facility] Comment on above: Performed By: #### H S TROP, CBC, PT, BNP, CMP, CK, PTT #### [place] [id number] [facility] Creatinine [Mass/volume] in Serum or PlasmaOrdered By: PROVIDER TEMP on 11-05-2023 Creatinine [Mass/Vol] 0.87 mg/dL Normal 0.60-1.20 [facility] Comment on above: Performed By: #### H S TROP, CBC, PT, BNP, CMP, CK, PTT #### [place] [id number] [facility] ECG 12 lead ECGon 11-05-2023 ECG 12 lead ECG [facility] [place] [address] [place] [address] Electrocardiograph Report Signed Patient: Genny Brewer MR#: [id number] : 1940 Acct:[id number] Age/Sex: 83 / F ADM Date: 11/05/23 Loc: ER Room: Type: [facility] ER Attending Dr: Ordering Provider: [...] By Sim Gimenez DO 1144 Normal [facility] Erythrocyte distribution wid th [Ratio] by Automated countOrdered By: PROVIDER TEMP on 11-05-2023 Erythrocyte distribution width (RBC) [Ratio] 13.4 % Normal 11.9-15.3 [facility] Comment on above: Performed By: #### H S TROP, CBC, PT, BNP, CMP, CK, PTT #### [facility] [address] Erythrocytes [#/volume] in B lood by Automated countOrdered By: PROVIDER TEMP on 11-05-2023 RBC (Bld) [#/Vol] 4.19 10*6/uL Normal 3.60-5.00 [facility] Comment on above: Performed By: #### H S TROP, CBC, PT, BNP, CMP, CK, PTT #### [facility] [address] [place] [address] [place] Glucose [Mass/volume] in Ser um or PlasmaOrdered By: PROVIDER TEMP on 11-05-2023 Glucose [Mass/Vol] 104 mg/dL High 70-100 [facility] Comment on above: ADA recommended refe rence rangeRandom Glucose Reference Range is dependent on time and content of last meal. Glucose of more than 200 mg/dL in a nonstressed, ambulatory subject supports the diagnosis of Diabetes Mellitus. Result Comment: [place] om Glucose Reference Range is dependent on time and content of last meal. Glucose of more than 200 mg/dL in a nonstressed, ambulatory subject supports the diagnosis of Diabetes Mellitus. ADA recommended reference range Performed By: #### H S TROP, CBC, PT, BNP, CMP, CK, PTT #### [facility] [address] [place] [address] [place] Hematocrit [Volume Fraction] of Blood by Automated countOrdered By: PROVIDER TEMP on 11-05-2023 Hematocrit (Bld) [Volume fraction] 40.1 % Normal 34.0-46.4 [facility] Comment on above: Performed By: #### H S TROP, CBC, PT, BNP, CMP, CK, PTT #### [facility] [address] Hemoglobin [Mass/volume] in BloodOrdered By: PROVIDER TEMP on 11-05-2023 Hemoglobin (Bld) [Mass/Vol] 13.7 g/dL Normal 11.8-15.4 [facility] Comment on above: Performed By: #### H S TROP, CBC, PT, BNP, CMP, CK, PTT #### [facility] [address] INR in Platelet poor plasma by Coagulation assayOrdered By: PROVIDER TEMP on 11-05-2023 INR Coag (PPP) [Relative time] 0.9 {INR} Normal [facility] Comment on above: INR Therapeutic Rang [...] CBC, PT, BNP, CMP, CK, PTT #### [facility] [address] Leukocytes [#/volume] correc kristi for nucleated erythrocytes in Blood by Automated counOrdered By: PROVIDER TEMP on 11-05-2023 WBC corrected for nucl RBC Auto (Bld) [#/Vol] 6.7 10*3/uL 3.8-11.6 [facility] Leukocytes [#/volume] in Blo od by Automated countOrdered By: PROVIDER TEMP on 11-05-2023 WBC (Bld) [#/Vol] 6.7 10*3/uL Normal 3.8-11.6 [facility] Comment on above: Performed By: #### H S TROP, CBC, PT, BNP, CMP, CK, PTT #### [facility] [address] Lymphocytes [#/volume] in Bl ood by Automated countOrdered By: PROVIDER TEMP on 11-05-2023 Lymphocytes (Bld) [#/Vol] 1.0 10*3/uL Normal 1.00-4.8 [facility] Comment on above: Performed By: #### H S TROP, CBC, PT, BNP, CMP, CK, PTT #### [facility] [address] [place] [address] Lymphocytes/100 leukocytes i n Blood by Automated countOrdered By: PROVIDER TEMP on 11-05-2023 Lymphocytes/100 WBC (Bld) 15.0 % Normal . [facility] Comment on above: Performed By: #### H S TROP, CBC, PT, BNP, CMP, CK, PTT #### [facility] [address] [place] [address] MCH [Entitic mass] by Automa kristi countOrdered By: PROVIDER TEMP on 11-05-2023 MCH (RBC) [Entitic mass] 32.6 pg Normal 24.7-34.3 [facility] Comment on above: Performed By: #### H S TROP, CBC, PT, BNP, CMP, CK, PTT #### [facility] [address] [place] [address] MCHC Auto (RBC) [Mass/Vol]Or dered By: PROVIDER TEMP on 11-05-2023 MCHC (RBC) [Mass/Vol] 34.2 g/dL 32.0-35.0 [facility] MCV [Entitic volume] by Auto mated countOrdered By: PROVIDER TEMP on 11-05-2023 MCV (RBC) [Entitic vol] 95.5 fL Normal 80-100 [facility] Comment on above: Performed By: #### H S TROP, CBC, PT, BNP, CMP, CK, PTT #### [facility] [address] Monocyte distribution width [Entitic volume] in Blood by AutomatedOrdered By: PROVIDER TEMP on 11-05-2023 Monocyte distribution width Auto (Bld) [Entitic vol] 20.41 % High 0.00-20.00 [facility] Comment on above: For adults in ED, MD W > 20.0 may be associated with a higher risk of sepsis during the first 12 hrs of hospital admission Neutrophils [#/volume] in Bl ood by Automated countOrdered By: PROVIDER TEMP on 11-05-2023 Neutrophils (Bld) [#/Vol] 5.0 10*3/uL Normal 1.8-7.7 [facility] Comment on above: Performed By: #### H S TROP, CBC, PT, BNP, CMP, CK, PTT #### [facility] [address] No Panel InformationOrdered By: PROVIDER TEMP on 11-05-2023 Estimated GFR (CKD-EPI) > 60.0 mL/Min [facility] Creatinine Clearance (Chem 42.53 [facility] Nucleated erythrocytes [Pres ence] in Blood by Automated countOrdered By: PROVIDER TEMP on 11-05-2023 Nucleated RBC Auto Ql (Bld) 0.1 /100{WBC} 0-0.5 [facility] Partial Thromboplastin Timeo n 11-05-2023 aPTT Coag (Bld) [Time] 30.2 s Normal 25.1-36.5 [facility] Comment on above: Result Comment: A he matocrit value greater than 55% may lead to inaccurate results in coagulation testing. Patients having hematocrit values >55% require a special collection tube for coagulation studies. Please contact the laboratory at [phone] for redraw instructions. PERFORMED BY: [address] [place] [address] PATHOLOGIST [employer] ADDED ASSESSOR KAYLIN ARDON M.D. Performed By: #### H S TROP, CBC, PT, BNP, CMP, CK, PTT #### [facility] [address] Platelet mean volume [Entiti c volume] in Blood by Automated countOrdered By: PROVIDER TEMP on 11-05-2023 Platelet mean volume (Bld) [Entitic vol] 8.0 fL Normal 6.3-10.7 [facility] Comment on above: Performed By: #### H S TROP, CBC, PT, BNP, CMP, CK, PTT #### [facility] [address] Platelets [#/volume] in Bloo d by Automated countOrdered By: PROVIDER TEMP on 11-05-2023 Platelets (Bld) [#/Vol] 314 10*3/uL Normal 150-450 [facility] Comment on above: Performed By: #### H S TROP, CBC, PT, BNP, CMP, CK, PTT #### [address] Potassium [Moles/volume] in Serum or PlasmaOrdered By: PROVIDER TEMP on 11-05-2023 Potassium [Moles/Vol] 4.3 mmol/L Normal 3.5-5.1 [facility] Comment on above: Performed By: #### H S TROP, CBC, PT, BNP, CMP, CK, PTT #### [address] Protein [Mass/volume] in Ser um or PlasmaOrdered By: PROVIDER TEMP on 11-05-2023 Protein [Mass/Vol] 6.8 g/dL Normal 6.4-8.9 [facility] Comment on above: Performed By: #### H S TROP, CBC, PT, BNP, CMP, CK, PTT #### [address] Prothrombin time (PT)Ordered By: PROVIDER TEMP on 11-05-2023 PT Coag (PPP) [Time] 11.0 s Normal 9.0-12.9 [facility] Comment on above: A hematocrit value g reater than 55% may lead to inaccurate results in coagulation testing. Patients having hematocrit values >55% require a special collection tube for coagulation studies. Please contact the laboratory at [phone] for redraw instructions. Result Comment: A he matocrit value greater than 55% may lead to inaccurate results in coagulation testing. Patients having hematocrit values >55% require a special collection tube for coagulation studies. Please contact the laboratory at [phone] for redraw instructions. Performed By: #### H S TROP, CBC, PT, BNP, CMP, CK, PTT #### [address] Serum globulin measurement b y calculation (mass/volume)Ordered By: PROVIDER TEMP on 11-05-2023 Globulin (S) [Mass/Vol] 2.7 g/dL [facility] Comment on above: Performed By: #### H S TROP, CBC, PT, BNP, CMP, CK, PTT #### [address] Serum or plasma albumin/glob ulin mass ratioOrdered By: PROVIDER TEMP on 11-05-2023 Albumin/Globulin [Mass ratio] 1.5 {ratio} [facility] Comment on above: Performed By: #### H S TROP, CBC, PT, BNP, CMP, CK, PTT #### [address] Serum or plasma anion gap de terminationOrdered By: PROVIDER TEMP on 11-05-2023 Anion gap [Moles/Vol] 12.1 mmol/L Normal 6.0-15.0 [facility] Comment on above: Performed By: #### H S TROP, CBC, PT, BNP, CMP, CK, PTT #### [address] Sodium [Moles/volume] in Ser um or PlasmaOrdered By: PROVIDER TEMP on 11-05-2023 Sodium [Moles/Vol] 139 mmol/L Normal 136-145 [facility] Comment on above: Performed By: #### H S TROP, CBC, PT, BNP, CMP, CK, PTT #### [place] [id number] [place] Troponin I High Sensitivityo n 11-05-2023 Troponin I High Sensitivity 36.1 pg/mL High 0.0-15.0 [facility] Comment on above: Result Comment: PERF ORMED BY: [place] [address] PATHOLOGIST [employer] ADDED ASSESSOR KAYLIN ARDON M.D. Performed By: #### H S TROP #### [facility] [address] [place] [address] Troponin I High Sensitivity 34.8 pg/mL High 0.0-15.0 [facility] Comment on above: Result Comment: PERF ORMED BY: [place] [address] PATHOLOGIST [employer] VAL[employer] ADDED ASSESSOR KAYLIN ARDON M.D. Performed By: #### H S TROP, CBC, PT, BNP, CMP, CK, PTT #### [facility] [address] [place] [address] Troponin I.cardiac [Mass/vol ume] in Serum or Plasma by Detection limit <= 0.01 ng/Ordered By: Rona Andres on 11-05-2023 Troponin I.cardiac DL <= 0.01 ng/mL [Mass/Vol] 36.1 pg/mL High 0.0-15.0 [facility] Urea nitrogen [Mass/volume] in Serum or PlasmaOrdered By: PROVIDER TEMP on 11-05-2023 Urea nitrogen [Mass/Vol] 20 mg/dL Normal 7-25 [facility] Comment on above: Performed By: #### H S TROP, CBC, PT, BNP, CMP, CK, PTT #### [facility] [address] [place] [address] [place] XR chest 1V portableon 11-04 XR chest 1V portable [facility] [place] [address] XRay Report Signed Patient: Genny Brewer MR#: [id number] : 1940 Acct:[id number] Age/Sex: 83 / F ADM Date: 11/05/23 [...] Antonio Martinez M.D.11/05/2023 7:45 AM Dictation Location: [place] [address] Transcribed By: [facility] 11/05/23 0745 Dictated By: Juan Antonio Martinez DO 11/05/23 0743 Signed By: 11/05/23 0745 Normal [facility] Automated basophil %Ordered By: Reji Saenz on 10-29-2023 Basophils/100 WBC (Bld) 0.7 % Normal . [facility] Comment on above: Performed By: #### H S TROP #### [facility] [address] [place] [address] Automated basophil countOrde red By: Reji Saenz on 10-29-2023 Basophils (Bld) [#/Vol] 0.1 10*3/uL Normal 0.0-0.2 [facility] Comment on above: Result Comment: PERF ORMED BY: [place] [address] PATHOLOGIST [employer] VAL[employer] ADDED ASSESSOR KAYLIN ARDON M.D. Performed By: #### H S TROP #### [facility] [address] [place] [address] Automated blood monocyte cou ntOrdered By: Reji Saenz on 10-29-2023 Monocytes (Bld) [#/Vol] 0.8 10*3/uL Normal 0.0-0.8 [facility] Comment on above: Performed By: #### H S TROP #### [address] Automated eosinophil %Ordere d By: Reji Saenz on 10-29-2023 Eosinophils/100 WBC (Bld) 0.6 % Normal . [facility] Comment on above: Performed By: #### H S TROP #### [address] Automated eosinophil countOr dered By: Reji Saenz on 10-29-2023 Eosinophils (Bld) [#/Vol] 0.0 10*3/uL Normal 0.0-0.45 [facility] Comment on above: Performed By: #### H S TROP #### [address] Automated monocyte %Ordered By: Reji Saenz on 10-29-2023 Monocytes/100 WBC (Bld) 9.4 % Normal . [facility] Comment on above: Performed By: #### H S TROP #### [address] Automated neutrophil %Ordere d By: Reji Saenz on 10-29-2023 Neutrophils/100 WBC (Bld) 73.5 % Normal . [facility] Comment on above: Performed By: #### H S TROP #### [address] Basic Metabolic Panelon 08-0 Creatinine Clr Calc Pharmacy 41.47 Normal [facility] Comment on above: Result Comment: PERF ORMED BY: [place] [address] PATHOLOGIST [employer] VAL[employer] ADDED ASSESSOR KAYLIN ARDON M.D. Performed By: #### H S TROP #### [address] GFR/1.73 sq M.predicted MDRD (S/P/Bld) [Vol rate/Area] mL/min/{1.73_m2} Normal [facility] Comment on above: Performed By: #### H S TROP #### [facility] [address] Calcium [Mass/volume] in Ser um or PlasmaOrdered By: Reji Saenz on 10-29-2023 Calcium [Mass/Vol] 9.3 mg/dL Normal 8.6-10.3 [facility] Comment on above: Performed By: #### H S TROP #### [address] Carbon dioxide, total [Moles /volume] in Serum or PlasmaOrdered By: Reji Saenz on 10-29-2023 CO2 [Moles/Vol] 24.3 mmol/L Normal 21.0-31.0 [facility] Comment on above: Performed By: #### H S TROP #### [address] Chloride [Moles/volume] in S carolyne or PlasmaOrdered By: Reji Saenz on 10-29-2023 Chloride [Moles/Vol] 109 mmol/L High 98-107 [facility] Comment on above: Performed By: #### H S TROP #### [address] Complete Blood Count Auto Di ffon 10-29-2023 Mean Corpuscular HGB Conc 33.9 g/dL Normal 32.0-35.0 [facility] Comment on above: Performed By: #### H S TROP #### [address] NRBC% 0.1 /100{WBC} Normal 0-0.5 [facility] Comment on above: Performed By: #### H S TROP #### [place] [address] [place] Creatinine [Mass/volume] in Serum or PlasmaOrdered By: Reji Saenz on 10-29-2023 Creatinine [Mass/Vol] 0.91 mg/dL Normal 0.60-1.20 [facility] Comment on above: Performed By: #### H S TROP #### [address] ECG 12 lead ECGon 10-29-2023 ECG 12 lead ECG [facility] [place] [address] [place] [address] Electrocardiograph Report Signed Patient: Genny Brewer MR#: [id number] : 1940 Acct:[id number] Age/Sex: 83 / F ADM Date: 10/27/23 Loc: Room: [address] [place] [address] Type: DIS IN Attending Dr: Reji Saenz [...] Marilou Wilhelm DO 4 1855 Normal [facility] Erythrocyte distribution wid th [Ratio] by Automated countOrdered By: Reji Saenz on 10-29-2023 Erythrocyte distribution width (RBC) [Ratio] 13.8 % Normal 11.9-15.3 [facility] Comment on above: Performed By: #### H S TROP #### [facility] [address] [place] [address] [place] Erythrocytes [#/volume] in B lood by Automated countOrdered By: Reji Saenz on 10-29-2023 RBC (Bld) [#/Vol] 3.96 10*6/uL Normal 3.60-5.00 [facility] Comment on above: Performed By: #### H S TROP #### [facility] [address] [place], [place] [id number] [place] Glucose [Mass/volume] in Ser um or PlasmaOrdered By: Reji Saenz on 10-29-2023 Glucose [Mass/Vol] 105 mg/dL High 70-100 [facility] Comment on above: ADA recommended refe rence rangeRandom Glucose Reference Range is dependent on time and content of last meal. Glucose of more than 200 mg/dL in a nonstressed, ambulatory subject supports the diagnosis of Diabetes Mellitus. Result Comment: [place] [facility] Glucose Reference Range is dependent on time and content of last meal. Glucose of more than 200 mg/dL in a nonstressed, ambulatory subject supports the diagnosis of Diabetes Mellitus. ADA recommended reference range Performed By: #### H S TROP #### [address] Hematocrit [Volume Fraction] of Blood by Automated countOrdered By: Reji Saenz on 10-29-2023 Hematocrit (Bld) [Volume fraction] 38.2 % Normal 34.0-46.4 [facility] Comment on above: Performed By: #### H S TROP #### [address] Hemoglobin [Mass/volume] in BloodOrdered By: Reji Saenz on 10-29-2023 Hemoglobin (Bld) [Mass/Vol] 12.9 g/dL Normal 11.8-15.4 [facility] Comment on above: Performed By: #### H S TROP #### [address] Leukocytes [#/volume] correc kristi for nucleated erythrocytes in Blood by Automated counOrdered By: Reji Saenz on 10-29-2023 WBC corrected for nucl RBC Auto (Bld) [#/Vol] 8.1 10*3/uL 3.8-11.6 [facility] Leukocytes [#/volume] in Blo od by Automated countOrdered By: Reji Saenz on 10-29-2023 WBC (Bld) [#/Vol] 8.1 10*3/uL Normal 3.8-11.6 [facility] Comment on above: Performed By: #### H S TROP #### [place] [address] [place] Lymphocytes [#/volume] in Bl ood by Automated countOrdered By: Reji Saenz on 10-29-2023 Lymphocytes (Bld) [#/Vol] 1.3 10*3/uL Normal 1.00-4.8 [facility] Comment on above: Performed By: #### H S TROP #### [address] Lymphocytes/100 leukocytes i n Blood by Automated countOrdered By: Reji Saenz on 10-29-2023 Lymphocytes/100 WBC (Bld) 15.8 % Normal . [facility] Comment on above: Performed By: #### H S TROP #### [address] MCH [Entitic mass] by Automa kristi countOrdered By: Reji Saenz on 10-29-2023 MCH (RBC) [Entitic mass] 32.7 pg Normal 24.7-34.3 [facility] Comment on above: Performed By: #### H S TROP #### [address] MCHC Auto (RBC) [Mass/Vol]Or dered By: Reji Saenz on 10-29-2023 MCHC (RBC) [Mass/Vol] 33.9 g/dL 32.0-35.0 [facility] MCV [Entitic volume] by Auto mated countOrdered By: Reji Saenz on 10-29-2023 MCV (RBC) [Entitic vol] 96.5 fL Normal 80-100 [facility] Comment on above: Performed By: #### H S TROP #### [address] Neutrophils [#/volume] in Bl ood by Automated countOrdered By: Reji Saenz on 10-29-2023 Neutrophils (Bld) [#/Vol] 5.9 10*3/uL Normal 1.8-7.7 [facility] Comment on above: Performed By: #### H S TROP #### [address] No Panel InformationOrdered By: Reji Saenz on 10-29-2023 Estimated GFR (CKD-EPI) > 60.0 mL/Min [facility] Creatinine Clearance (Chem 41.47 [facility] Nucleated erythrocytes [Pres ence] in Blood by Automated countOrdered By: Reji Saenz on 10-29-2023 Nucleated RBC Auto Ql (Bld) 0.1 /100{WBC} 0-0.5 [facility] Platelet mean volume [Entiti c volume] in Blood by Automated countOrdered By: Reji Saenz on 10-29-2023 Platelet mean volume (Bld) [Entitic vol] 8.0 fL Normal 6.3-10.7 [facility] Comment on above: Performed By: #### H S TROP #### [place] [address] [place] Platelets [#/volume] in Bloo d by Automated countOrdered By: Reji Saenz on 10-29-2023 Platelets (Bld) [#/Vol] 261 10*3/uL Normal 150-450 [facility] Comment on above: Performed By: #### H S TROP #### [place] [address] [place] Potassium [Moles/volume] in Serum or PlasmaOrdered By: Reji Saenz on 10-29-2023 Potassium [Moles/Vol] 4.0 mmol/L Normal 3.5-5.1 [facility] Comment on above: Performed By: #### H S TROP #### [address] Serum or plasma anion gap de terminationOrdered By: Reji Saenz on 10-29-2023 Anion gap [Moles/Vol] 8.7 mmol/L Normal 6.0-15.0 [facility] Comment on above: Performed By: #### H S TROP #### [place] [address] [place] Sodium [Moles/volume] in Ser um or PlasmaOrdered By: Reji Saenz on 10-29-2023 Sodium [Moles/Vol] 138 mmol/L Normal 136-145 [facility] Comment on above: Performed By: #### H S TROP #### [place] [id number] [place] Urea nitrogen [Mass/volume] in Serum or PlasmaOrdered By: Reji Saenz on 10-29-2023 Urea nitrogen [Mass/Vol] 17 mg/dL Normal 7-25 [facility] Comment on above: Performed By: #### H S TROP #### [address] Basic Metabolic Panelon Anion gap [Moles/Vol] 6.3 mmol/L Normal 6.0-15.0 [facility] Comment on above: Performed By: #### H S TROP #### [address] Calcium [Mass/Vol] 9.3 mg/dL Normal 8.6-10.3 [facility] Comment on above: Performed By: #### H S TROP #### [address] Chloride [Moles/Vol] 112 mmol/L High 98-107 [facility] Comment on above: Performed By: #### H S TROP #### [address] CO2 [Moles/Vol] 20.7 mmol/L Low 21.0-31.0 [facility] Comment on above: Performed By: #### H S TROP #### [address] Creatinine [Mass/Vol] 0.85 mg/dL Normal 0.60-1.20 [facility] Comment on above: Performed By: #### H S TROP #### [place] [address] [place] Creatinine Clr Calc Pharmacy 44.36 Normal [facility] Comment on above: Performed By: #### H S TROP #### [place] [address] [place] GFR/1.73 sq M.predicted MDRD (S/P/Bld) [Vol rate/Area] mL/min/{1.73_m2} Normal [facility] Comment on above: Performed By: #### H S TROP #### [facility] [address] Glucose [Mass/Vol] 104 mg/dL High 70-100 [facility] Comment on above: Result Comment: [facility] Glucose Reference Range is dependent on time and content of last meal. Glucose of more than 200 mg/dL in a nonstressed, ambulatory subject supports the diagnosis of Diabetes Mellitus. ADA recommended reference range Performed By: #### H S TROP #### [facility] [address] Potassium [Moles/Vol] 4.0 mmol/L Normal 3.5-5.1 [facility] Comment on above: Performed By: #### H S TROP #### [address] Sodium [Moles/Vol] 135 mmol/L Low 136-145 [facility] Comment on above: Performed By: #### H S TROP #### [address] Urea nitrogen [Mass/Vol] 17 mg/dL Normal 7-25 [facility] Comment on above: Performed By: #### H S TROP #### [address] Cholesterol [Mass/volume] in Serum or PlasmaOrdered By: Reji Saenz on 10-28-2023 Cholesterol [Mass/Vol] 241 mg/dL High 140-200 [facility] Comment on above: Chol less than 200 m g/dl low riskChol 201-239 mg/dl borderline riskChol 240 mg/dl and greater high risk Result Comment: Chol less than 200 mg/dl low risk Chol 201-239 mg/dl borderline risk Chol 240 mg/dl and greater high risk Performed By: #### H S TROP #### [place] [address] [place] Cholesterol in LDL Calc [Mas s/Vol]Ordered By: Reji Saenz on 10-28-2023 Cholesterol in LDL [Mass/Vol] 108 mg/dL High 0-100 [facility] Comment on above: LDL ATP III CLASSIFI CATIONLDL less than 100 mg/dL OptimalLDL 100-129 mg/dL Near or above optimalLDL 130-159 mg/dL Borderline highLDL 160-189 mg/dL HighLDL greater than 189 mg/dL Very high Cholesterol in VLDL Calc [Ma ss/Vol]Ordered By: Reji Saenz on 10-28-2023 Cholesterol in VLDL [Mass/Vol] 20 mg/dL [facility] Complete Blood Count Auto Di ffon 10-28-2023 Basophils (Bld) [#/Vol] 0.1 10*3/uL Normal 0.0-0.2 [facility] Comment on above: Result Comment: PERF ORMED BY: [place] [address] PATHOLOGIST [employer] ADDED ASSESSOR KAYLIN ARDON M.D. Performed By: #### H S TROP #### [address] Basophils/100 WBC (Bld) 0.9 % Normal . [facility] Comment on above: Performed By: #### H S TROP #### [address] Eosinophils (Bld) [#/Vol] 0.0 10*3/uL Normal 0.0-0.45 [facility] Comment on above: Performed By: #### H S TROP #### [address] Eosinophils/100 WBC (Bld) 0.5 % Normal . [facility] Comment on above: Performed By: #### H S TROP #### [address] Erythrocyte distribution width (RBC) [Ratio] 13.7 % Normal 11.9-15.3 [facility] Comment on above: Performed By: #### H S TROP #### [address] Hematocrit (Bld) [Volume fraction] 37.9 % Normal 34.0-46.4 [facility] Comment on above: Performed By: #### H S TROP #### [place] [address] [place] Hemoglobin (Bld) [Mass/Vol] 12.7 g/dL Normal 11.8-15.4 [facility] Comment on above: Performed By: #### H S TROP #### [address] Lymphocytes (Bld) [#/Vol] 1.7 10*3/uL Normal 1.00-4.8 [facility] Comment on above: Performed By: #### H S TROP #### [address] Lymphocytes/100 WBC (Bld) 20.4 % Normal . [facility] Comment on above: Performed By: #### H S TROP #### [address] MCH (RBC) [Entitic mass] 32.6 pg Normal 24.7-34.3 [facility] Comment on above: Performed By: #### H S TROP #### [address] MCV (RBC) [Entitic vol] 97.0 fL Normal 80-100 [facility] Comment on above: Performed By: #### H S TROP #### [address] Mean Corpuscular HGB Conc 33.5 g/dL Normal 32.0-35.0 [facility] Comment on above: Performed By: #### H S TROP #### [address] Monocytes (Bld) [#/Vol] 0.9 10*3/uL High 0.0-0.8 [facility] Comment on above: Performed By: #### H S TROP #### [address] Monocytes/100 WBC (Bld) 10.2 % Normal . [facility] Comment on above: Performed By: #### H S TROP #### [address] Neutrophils (Bld) [#/Vol] 5.7 10*3/uL Normal 1.8-7.7 [facility] Comment on above: Performed By: #### H S TROP #### [facility] [address] [place] [address] [place] Neutrophils/100 WBC (Bld) 68.0 % Normal . [facility] Comment on above: Performed By: #### H S TROP #### [facility] [address] [place] [address] [place] NRBC% 0.1 /100{WBC} Normal 0-0.5 [facility] Comment on above: Performed By: #### H S TROP #### [facility] [address] [place] [id number] [place] Platelet mean volume (Bld) [Entitic vol] 7.7 fL Normal 6.3-10.7 [facility] Comment on above: Performed By: #### H S TROP #### [facility] [address] [place] [address] [place] Platelets (Bld) [#/Vol] 254 10*3/uL Normal 150-450 [facility] Comment on above: Performed By: #### H S TROP #### [facility] [address] [place] [address] [place] RBC (Bld) [#/Vol] 3.90 10*6/uL Normal 3.60-5.00 [facility] Comment on above: Performed By: #### H S TROP #### [facility] [address] [place] [id number] [place] WBC (Bld) [#/Vol] 8.4 10*3/uL Normal 3.8-11.6 [facility] Comment on above: Performed By: #### H S TROP #### [facility] [address] [place] [id number] [facility] ECG 12 lead ECGon 10-28-2023 ECG 12 lead ECG [facility] [place] [address] [place] [address] Electrocardiograph Report Signed Patient: Genny Brewer MR#: [id number] : 1940 Acct:[id number] Age/Sex: 83 / F ADM Date: 10/27/23 Loc: Room: [address] [place] [address] Type: DIS IN Attending Dr: Reji Saenz [...] Marilou Wilhelm DO 4 1836 Normal [facility] ECG 12 lead ECG [facility] [place] [address] Electrocardiograph Report Signed Patient: Genny Brewer MR#: [id number] : 1940 Acct:[id number] Age/Sex: 83 / F ADM Date: 10/27/23 Loc: Room: [address] [place] [address] Type: DIS IN Attending Dr: Reji Saenz [...] are now present Confirmed by Lorenzo Mora ([id number]) on 11/07/2023 10:40:27 AM Referred By: Electronically Signed By: Lorenzo Mora Transcribed By: MUS Signed By Lorenzo Mora MD 11/07/23 1040 Normal [facility] echo transthoracicon [facility] echo transthoracic [facility] [place] [address] [place] [address] Echocardiogram Signed Patient: Genny Brewer MR#: [id number] : 1940 Acct:[id number] Age/Sex: 83 / F ADM Date: 10/27/23 Loc: Room: [address] [place] [address] Type: ADM IN Attending Dr: Reji Saenz DO Ordering Provider: Reji Saenz DO Date of Service: 10/28/2308/15/499 [facility] echo transthoracic: Acute inferior STEMI Copies to: [...] Marilou Wilhelm DO 10/28/23 1843 Normal [facility] Lipid Panelon 10-28-2023 LDL Cholesterol,Calculate d 108 mg/dL High 0-100 [facility] Comment on above: Result Comment: LDL ATP III CLASSIFICATION LDL less than 100 mg/dL Optimal LDL 100-129 mg/dL Near or above optimal LDL 130-159 mg/dL Borderline high LDL 160-189 mg/dL High LDL greater than 189 mg/dL Very high Performed By: #### H S TROP #### [address] Triglyceride w/Reflex 103 mg/dL Normal 0-149 [facility] Comment on above: Result Comment: TRIG ATP III CLASSIFICATION TRIG less than 150 mg/dL Normal TRIG 150-199 mg/dL Borderline high TRIG 200-500 mg/dL High TRIG greater than 500 mg/dL Very high Standard traceable to the Center for Disease Conrtrol and Prevention (CDC) test method. Performed By: #### H S TROP #### [address] VLDL CHOLESTEROL 20 mg/dL Normal [facility] Comment on above: Performed By: #### H S TROP #### [address] Serum or plasma high density lipoprotein (HDL) cholesterol measurementOrdered By: Reji Saenz on 10-28-2023 Cholesterol in HDL [Mass/Vol] 112 mg/dL High 23-92 [facility] Comment on above: HDL CHOL ATP-III CLA SSIFICATION Cardiovascular RiskHDL > or equal to 60 mg/dL LOWHDL < 40 mg/dL HIGH Result Comment: HDL CHOL ATP-III CLASSIFICATION Cardiovascular Risk HDL > or equal to 60 mg/dL LOW HDL < 40 mg/dL HIGH Performed By: #### H S TROP #### [facility] [address] Serum or plasma total choles terol/high density lipoprotein (HDL) cholesterol mass ratOrdered By: Reji Saenz on 10-28-2023 Cholesterol.total/Cho lesterol in HDL [Mass ratio] 2.2 {ratio} Normal <5.0 [facility] Comment on above: Result Comment: PERF ORMED BY: [place] [address] PATHOLOGIST [employer] ADDED ASSESSOR KAYLIN ARDON M.D. Performed By: #### H S TROP #### [facility] [address] [place] [address] Triglyceride [Mass/volume] i n Serum or PlasmaOrdered By: Reji Saenz on 10-28-2023 Triglyceride [Mass/Vol] 103 mg/dL 0-149 [facility] Comment on above: TRIG ATP III CLASSIF ICATIONTRIG less than 150 mg/dL NormalTRIG 150-199 mg/dL Borderline highTRIG 200-500 mg/dL High TRIG greater than 500 mg/dL Very highStandard traceable to the Center for Disease Conrtrol and Prevention (CDC) test method. Troponin I High Sensitivityo n 10-28-2023 Troponin I High Sensitivity 20250.4 pg/mL Off scale high 0.0-15.0 [facility] Comment on above: Result Comment: Crit ical Result : Called to and read back by: ELLA SCOTT at: 10/28/2023 05:06:20 by:[id number] PERFORMED BY: [place] [address] PATHOLOGIST [employer] ADDED ASSESSOR KAYLIN ARDON M.D. Performed By: #### H S TROP #### [address] Troponin I High Sensitivity 46321.0 pg/mL Off scale high 0.0-15.0 [facility] Comment on above: Result Comment: Crit ical Result : Called to and read back by: ELLA SCOTT at: 10/28/2023 02:47:34 by:[id number] PERFORMED BY: [place] [address] PATHOLOGIST [employer] ADDED ASSESSOR KAYLIN ARDON M.D. Performed By: #### H S TROP #### [address] Troponin I.cardiac [Mass/vol ume] in Serum or Plasma by Detection limit <= 0.01 ng/Ordered By: Reji Saenz on 10-28-2023 Troponin I.cardiac DL <= 0.01 ng/mL [Mass/Vol] 36767.4 pg/mL High 0.0-15.0 [facility] Comment on above: Critical Result : Ca lled to and read back by: ELLA SCOTT at: 10/28/2023 05:06:20 by:[id number] Activated partial thrombopla stin time (aPTT) in platelet poor plasma by coagulation aOrdered By: Doe Álvarez on 10-27-2023 aPTT Coag (PPP) [Time] 23.1 s Low 25.1-36.5 [facility] Comment on above: A hematocrit value g reater than 55% may lead to inaccurate results in coagulation testing. Patients having hematocrit values >55% require a special collection tube for coagulation studies. Please contact the laboratory at [phone] for redraw instructions. Alanine aminotransferase [En zymatic activity/volume] in Serum or PlasmaOrdered By: Doe Álvarez on 10-27-2023 ALT [Catalytic activity/Vol] 36 U/L Normal 7-52 [facility] Comment on above: Performed By: #### H S TROP, CBC, PT, BNP, CMP, CK, PTT #### [address] Albumin [Mass/volume] in Ser um or Plasma by Bromocresol green (BCG) dye binding methoOrdered By: Doe Álvarez on 10-27-2023 Albumin BCG dye [Mass/Vol] 4.4 g/dL 3.5-5.7 [facility] Alkaline phosphatase [Enzyma tic activity/volume] in Serum or PlasmaOrdered By: Doe Álvarez on 10-27-2023 ALP [Catalytic activity/Vol] 86 U/L Normal 34-104 [facility] Comment on above: Performed By: #### H S TROP, CBC, PT, BNP, CMP, CK, PTT #### [address] Aspartate aminotransferase [ Enzymatic activity/volume] in Serum or PlasmaOrdered By: Doe Álvarez on 10-27-2023 AST [Catalytic activity/Vol] 60 U/L High 13-39 [facility] Comment on above: Performed By: #### H S TROP, CBC, PT, BNP, CMP, CK, PTT #### [address] Automated basophil %Ordered By: Doe Álvarez on 10-27-2023 Basophils/100 WBC (Bld) 1.3 % Normal . [facility] Comment on above: Performed By: #### H S TROP #### [address] Automated basophil countOrde red By: Doe Álvarez on 10-27-2023 Basophils (Bld) [#/Vol] 0.1 10*3/uL Normal 0.0-0.2 [facility] Comment on above: Result Comment: PERF ORMED BY: [place] [address] PATHOLOGIST [employer] ADDED ASSESSOR KAYLIN ARDON M.D. Performed By: #### H S TROP #### [address] Automated blood monocyte cou ntOrdered By: Doe Álvarez on 10-27-2023 Monocytes (Bld) [#/Vol] 0.7 10*3/uL Normal 0.0-0.8 [facility] Comment on above: Performed By: #### H S TROP #### [address] Automated eosinophil %Ordere d By: Doe Álvarez on 10-27-2023 Eosinophils/100 WBC (Bld) 0.7 % Normal . [facility] Comment on above: Performed By: #### H S TROP #### [address] Automated eosinophil countOr dered By: Doe Álvarez on 10-27-2023 Eosinophils (Bld) [#/Vol] 0.1 10*3/uL Normal 0.0-0.45 [facility] Comment on above: Performed By: #### H S TROP #### [address] Automated monocyte %Ordered By: Doe Álvarez on 10-27-2023 Monocytes/100 WBC (Bld) 8.7 % Normal . [facility] Comment on above: Performed By: #### H S TROP #### [address] Automated neutrophil %Ordere d By: Doe Álvarez on 10-27-2023 Neutrophils/100 WBC (Bld) 63.6 % Normal . [facility] Comment on above: Performed By: #### H S TROP #### [address] BNP ser/plasOrdered By: Nasreen Álvarez on 10-27-2023 Natriuretic peptide B (Bld) [Mass/Vol] 124.0 pg/mL High 5-100 [facility] Comment on above: Result Comment: PERF ORMED BY: [place] [address] PATHOLOGIST [employer] ADDED ASSESSOR KAYLIN ARDON M.D. Performed By: #### H S TROP, CBC, PT, BNP, CMP, CK, PTT #### [address] Bilirubin.total [Mass/volume ] in Serum or PlasmaOrdered By: Doe Álvarez on 10-27-2023 Bilirubin [Mass/Vol] 0.7 mg/dL Normal 0.3-1.0 [facility] Comment on above: Performed By: #### H S TROP, CBC, PT, BNP, CMP, CK, PTT #### [facility] [address] Calcium [Mass/volume] in Ser um or PlasmaOrdered By: Doe Álvarez on 10-27-2023 Calcium [Mass/Vol] 10.0 mg/dL Normal 8.6-10.3 [facility] Comment on above: Performed By: #### H S TROP, CBC, PT, BNP, CMP, CK, PTT #### [address] Carbon dioxide, total [Moles /volume] in Serum or PlasmaOrdered By: Doe Álvarez on 10-27-2023 CO2 [Moles/Vol] 21.0 mmol/L Normal 21.0-31.0 [facility] Comment on above: Performed By: #### H S TROP, CBC, PT, BNP, CMP, CK, PTT #### [address] Chloride [Moles/volume] in S carolyne or PlasmaOrdered By: Doe Álvarez on 10-27-2023 Chloride [Moles/Vol] 107 mmol/L Normal 98-107 [facility] Comment on above: Performed By: #### H S TROP, CBC, PT, BNP, CMP, CK, PTT #### [address] Complete Blood Count Auto Di ffon 10-27-2023 Mean Corpuscular HGB Conc 34.1 g/dL Normal 32.0-35.0 [facility] Comment on above: Performed By: #### H S TROP #### [address] Monocytes/100 WBC (Bld) 20.20 % High 0.00-20.00 [facility] Comment on above: Result Comment: For adults in ED, MDW > 20.0 may be associated with a higher risk of sepsis during the first 12 hrs of hospital admission Performed By: #### H S TROP #### [address] NRBC% 0.1 /100{WBC} Normal 0-0.5 [facility] Comment on above: Performed By: #### H S TROP #### [address] Comprehensive Metabolic Pane marianela 10-27-2023 Albumin [Mass/Vol] 4.4 g/dL Normal 3.5-5.7 [facility] Comment on above: Performed By: #### H S TROP, CBC, PT, BNP, CMP, CK, PTT #### [address] Creatinine Clr Calc Pharmacy 35.04 Normal [facility] Comment on above: Result Comment: PERF ORMED BY: [place] [address] PATHOLOGIST [employer] ADDED ASSESSOR KAYLIN ARDON M.D. Performed By: #### H S TROP, CBC, PT, BNP, CMP, CK, PTT #### [address] GFR/1.73 sq M.predicted MDRD (S/P/Bld) [Vol rate/Area] 52.124 mL/min/{1.73_m2} Normal [facility] Comment on above: Performed By: #### H S TROP, CBC, PT, BNP, CMP, CK, PTT #### [address] Creatine kinase [Enzymatic a ctivity/volume] in Serum or PlasmaOrdered By: Doe Álvarez on 10-27-2023 CK [Catalytic activity/Vol] 74 U/L Normal 30-223 [facility] Comment on above: Performed By: #### H S TROP, CBC, PT, BNP, CMP, CK, PTT #### [address] Creatinine [Mass/volume] in Serum or PlasmaOrdered By: Doe Álvarez on 10-27-2023 Creatinine [Mass/Vol] 1.06 mg/dL Normal 0.60-1.20 [facility] Comment on above: Performed By: #### H S TROP, CBC, PT, BNP, CMP, CK, PTT #### [place] [id number] [facility] ECG 12 lead ECGon 10-27-2023 ECG 12 lead ECG [facility] [place] [address] Electrocardiograph Report Signed Patient: Genny Brewer MR#: [id number] : 1940 Acct:[id number] Age/Sex: 83 / F ADM Date: 10/27/23 Loc: Room: [address] [place] [address] Type: DIS IN Attending Dr: Reji Saenz [...] By Marilou Wilhelm DO 1831 Normal [facility] ECG 12 lead ECG [facility] [place] [address] Electrocardiograph Report Signed Patient: Genny Brewer MR#: [id number] : 1940 Acct:[id number] Age/Sex: 83 / F ADM Date: 10/27/23 Loc: Room: [address] [place] [address] Type: ADM IN Attending Dr: Reji Saenz [...] consider inferolateral injury or acute infarct ACUTE ND / STEMI Consider right ventricular involvement in acute inferior infarct Abnormal ECG No previous ECGs available Confirmed by ANAYELI DAVE MD ([id number]) on 10/27/2023 7:16:42 PM Referred By: Electronically Signed By: ANAYELI DAVE MD Transcribed By: MUS Signed By Anayeli Dave MD 10/27/23 191 Normal [facility] Erythrocyte distribution wid th [Ratio] by Automated countOrdered By: Doe Álvarez on 10-27-2023 Erythrocyte distribution width (RBC) [Ratio] 14.0 % Normal 11.9-15.3 [facility] Comment on above: Performed By: #### H S TROP #### [facility] [address] Erythrocytes [#/volume] in B lood by Automated countOrdered By: Doe Álvarez on 10-27-2023 RBC (Bld) [#/Vol] 4.45 10*6/uL Normal 3.60-5.00 [facility] Comment on above: Performed By: #### H S TROP #### [facility] [address] Glucose [Mass/volume] in Ser um or PlasmaOrdered By: Doe Álvarez on 10-27-2023 Glucose [Mass/Vol] 166 mg/dL High 70-100 [facility] Comment on above: ADA recommended refe rence rangeRandom Glucose Reference Range is dependent on time and content of last meal. Glucose of more than 200 mg/dL in a nonstressed, ambulatory subject supports the diagnosis of Diabetes Mellitus. Result Comment: [place] Glucose Reference Range is dependent on time and content of last meal. Glucose of more than 200 mg/dL in a nonstressed, ambulatory subject supports the diagnosis of Diabetes Mellitus. ADA recommended reference range Performed By: #### H S TROP, CBC, PT, BNP, CMP, CK, PTT #### [facility] [address] [place] [address] [place] Hematocrit [Volume Fraction] of Blood by Automated countOrdered By: Doe Álvarez on 10-27-2023 Hematocrit (Bld) [Volume fraction] 42.6 % Normal 34.0-46.4 [facility] Comment on above: Performed By: #### H S TROP #### [facility] [address] Hemoglobin [Mass/volume] in BloodOrdered By: Doe Álvarez on 10-27-2023 Hemoglobin (Bld) [Mass/Vol] 14.5 g/dL Normal 11.8-15.4 [facility] Comment on above: Performed By: #### H S TROP #### [facility] [address] INR in Platelet poor plasma by Coagulation assayOrdered By: Doe Álvarez on 10-27-2023 INR Coag (PPP) [Relative time] 0.9 {INR} Normal [facility] Comment on above: INR Therapeutic Rang [...] BNP, CMP, CK, PTT #### [facility] [address] [place] [address] [place] Leukocytes [#/volume] correc kristi for nucleated erythrocytes in Blood by Automated counOrdered By: Doe Álvarez on 10-27-2023 WBC corrected for nucl RBC Auto (Bld) [#/Vol] 8.6 10*3/uL 3.8-11.6 [facility] Leukocytes [#/volume] in Blo od by Automated countOrdered By: Doe Álvarez on 10-27-2023 WBC (Bld) [#/Vol] 8.6 10*3/uL Normal 3.8-11.6 [facility] Comment on above: Performed By: #### H S TROP #### [address] Lymphocytes [#/volume] in Bl ood by Automated countOrdered By: Doe Álvarez on 10-27-2023 Lymphocytes (Bld) [#/Vol] 2.2 10*3/uL Normal 1.00-4.8 [facility] Comment on above: Performed By: #### H S TROP #### [address] Lymphocytes/100 leukocytes i n Blood by Automated countOrdered By: Doe Álvarez on 10-27-2023 Lymphocytes/100 WBC (Bld) 25.7 % Normal . [facility] Comment on above: Performed By: #### H S TROP #### [address] MCH [Entitic mass] by Automa kristi countOrdered By: Doe Álvarez on 10-27-2023 MCH (RBC) [Entitic mass] 32.6 pg Normal 24.7-34.3 [facility] Comment on above: Performed By: #### H S TROP #### [address] MCHC Auto (RBC) [Mass/Vol]Or dered By: Doe Álvarez on 10-27-2023 MCHC (RBC) [Mass/Vol] 34.1 g/dL 32.0-35.0 [facility] MCV [Entitic volume] by Auto mated countOrdered By: Doe Álvarez on 10-27-2023 MCV (RBC) [Entitic vol] 95.7 fL Normal 80-100 [facility] Comment on above: Performed By: #### H S TROP #### [place] [id number] [facility] Monocyte distribution width [Entitic volume] in Blood by AutomatedOrdered By: Doe Álvarez on 10-27-2023 Monocyte distribution width Auto (Bld) [Entitic vol] 20.20 % High 0.00-20.00 [facility] Comment on above: For adults in ED, MD W > 20.0 may be associated with a higher risk of sepsis during the first 12 hrs of hospital admission Neutrophils [#/volume] in Bl ood by Automated countOrdered By: Doe Álvarez on 10-27-2023 Neutrophils (Bld) [#/Vol] 5.5 10*3/uL Normal 1.8-7.7 [facility] Comment on above: Performed By: #### H S TROP #### [address] No Panel InformationOrdered By: Doe Álvarez on 10-27-2023 Estimated GFR (CKD-EPI) 52.124 mL/Min [facility] Creatinine Clearance (Chem 35.04 [facility] Nucleated erythrocytes [Pres ence] in Blood by Automated countOrdered By: Doe Álvarez on 10-27-2023 Nucleated RBC Auto Ql (Bld) 0.1 /100{WBC} 0-0.5 [facility] Partial Thromboplastin Timeo n 10-27-2023 aPTT Coag (Bld) [Time] 23.1 s Low 25.1-36.5 [facility] Comment on above: Result Comment: A he matocrit value greater than 55% may lead to inaccurate results in coagulation testing. Patients having hematocrit values >55% require a special collection tube for coagulation studies. Please contact the laboratory at [phone] for redraw instructions. PERFORMED BY: [place] [address] PATHOLOGIST [employer]EN [employer] VALUE ADDED ASSESSOR KAYLIN ARDON M.D. Performed By: #### H S TROP, CBC, PT, BNP, CMP, CK, PTT #### [address] Platelet mean volume [Entiti c volume] in Blood by Automated countOrdered By: Doe Álvarez on 10-27-2023 Platelet mean volume (Bld) [Entitic vol] 7.7 fL Normal 6.3-10.7 [facility] Comment on above: Performed By: #### H S TROP #### [facility] [address] Platelets [#/volume] in Bloo d by Automated countOrdered By: Doe Álvarez on 10-27-2023 Platelets (Bld) [#/Vol] 294 10*3/uL Normal 150-450 [facility] Comment on above: Performed By: #### H S TROP #### [address] Potassium [Moles/volume] in Serum or PlasmaOrdered By: Doe Álvarez on 10-27-2023 Potassium [Moles/Vol] 3.7 mmol/L Normal 3.5-5.1 [facility] Comment on above: Performed By: #### H S TROP, CBC, PT, BNP, CMP, CK, PTT #### [address] Protein [Mass/volume] in Ser um or PlasmaOrdered By: Doe Álvarez on 10-27-2023 Protein [Mass/Vol] 7.1 g/dL Normal 6.4-8.9 [facility] Comment on above: Performed By: #### H S TROP, CBC, PT, BNP, CMP, CK, PTT #### [address] Prothrombin time (PT)Ordered By: Doe Álvarez on 10-27-2023 PT Coag (PPP) [Time] 10.7 s Normal 9.0-12.9 [facility] Comment on above: A hematocrit value g reater than 55% may lead to inaccurate results in coagulation testing. Patients having hematocrit values >55% require a special collection tube for coagulation studies. Please contact the laboratory at [phone] for redraw instructions. Result Comment: A he matocrit value greater than 55% may lead to inaccurate results in coagulation testing. Patients having hematocrit values >55% require a special collection tube for coagulation studies. Please contact the laboratory at [phone] for redraw instructions. Performed By: #### H S TROP, CBC, PT, BNP, CMP, CK, PTT #### [address] Serum globulin measurement b y calculation (mass/volume)Ordered By: Doe Álvarez on 10-27-2023 Globulin (S) [Mass/Vol] 2.7 g/dL [facility] Comment on above: Performed By: #### H S TROP, CBC, PT, BNP, CMP, CK, PTT #### [address] Serum or plasma albumin/glob ulin mass ratioOrdered By: Doe Álvarez on 10-27-2023 Albumin/Globulin [Mass ratio] 1.6 {ratio} [facility] Comment on above: Performed By: #### H S TROP, CBC, PT, BNP, CMP, CK, PTT #### [address] Serum or plasma anion gap de terminationOrdered By: Doe Álvarez on 10-27-2023 Anion gap [Moles/Vol] 13.7 mmol/L Normal 6.0-15.0 [facility] Comment on above: Performed By: #### H S TROP, CBC, PT, BNP, CMP, CK, PTT #### [address] Sodium [Moles/volume] in Ser um or PlasmaOrdered By: Doe Álvarez on 10-27-2023 Sodium [Moles/Vol] 138 mmol/L Normal 136-145 [facility] Comment on above: Performed By: #### H S TROP, CBC, PT, BNP, CMP, CK, PTT #### [address] Troponin I High Sensitivityo n 10-27-2023 Troponin I High Sensitivity 12673.9 pg/mL Off scale high 0.0-15.0 [facility] Comment on above: Order Comment: guido powell at 2350 Result Comment: Crit ical Result : Called to and read back by: DELIA LOZANO at: 10/28/2023 00:06:21 by:[id number] PERFORMED BY: [place] [phone] PATHOLOGIST GREEN MATERIAL VALUE ADDED ASSESSOR KAYLIN ARDON M.D. Performed By: #### H S TROP #### [address] Troponin I High Sensitivity 66748.3 pg/mL Off scale high 0.0-15.0 [facility] Comment on above: Order Comment: guido case collect at 2150 Result Comment: Crit ical Result : Called to and read back by: ELLA SCOTT at: 10/27/2023 23:27:11 by:[id number] PERFORMED BY: [phone] PATHOLOGIST GREEN MATERIAL VALUE ADDED ASSESSOR KAYLIN ARDON M.D. Performed By: #### H S TROP #### [address] Troponin I High Sensitivity 6295.7 pg/mL Off scale high 0.0-15.0 [facility] Comment on above: Result Comment: Crit ical Result : Called to and read back by: MONET CONNORS at: 10/27/2023 21:58:31 by:[id number] PERFORMED BY: [place] [phone] PATHOLOGIST GREEN MATERIAL VALUE ADDED ASSESSOR KAYLIN ARDON M.D. Performed By: #### H S TROP #### [place] [address] [place] Troponin I High Sensitivity 10.2 pg/mL Normal 0.0-15.0 [facility] Comment on above: Result Comment: PERF ORMED BY: [place] [phone] PATHOLOGIST GREEN MATERIAL VALUE ADDED ASSESSOR KAYLIN ARDON M.D. Performed By: #### H S TROP, CBC, PT, BNP, CMP, CK, PTT #### [address] Troponin I.cardiac [Mass/vol ume] in Serum or Plasma by Detection limit <= 0.01 ng/Ordered By: Doe Álvarez on 10-27-2023 Troponin I.cardiac DL <= 0.01 ng/mL [Mass/Vol] 10.2 pg/mL 0.0-15.0 [facility] Urea nitrogen [Mass/volume] in Serum or PlasmaOrdered By: Doe Álvarez on 10-27-2023 Urea nitrogen [Mass/Vol] 17 mg/dL Normal 7-25 [facility] Comment on above: Performed By: #### H S TROP, CBC, PT, BNP, CMP, CK, PTT #### [facility] [address] XR chest 1V portableon 10-26 XR chest 1V portable [facility] [place] [address] [place] [address] XRay Report Signed Patient: Genyn Brewer MR#: [id number] : 1940 Acct:[id number] Age/Sex: 83 / F ADM Date: 10/27/23 Loc: Room: Type: [facility] Attending Dr: Reji Saenz DO Copies [...] Antonio Martinez M.D.10/27/2023 5:41 PM Dictation Location: [place] [address] Transcribed By: [facility] 10/27/23 8467 Dictated By: Juan Antonio Martinez DO 10/27/23 1739 Signed By: 10/27/23 1741 Normal [facility] Glucose Glucometer (BldC) [M ass/Vol]Ordered By: Branden Du on 05-06-2023 Glucose [Mass/Vol] 93 mg/dL [facility] Comment on above: Random Glucose Refer ence Range is dependent on time and content of last meal. Glucose of more than 200 mg/dL in a nonstressed, ambulatory subject supports the diagnosis of Diabetes Mellitus. Urinalysis - DIPSTICKon Appearance (U) clear [employer] Other Bilirubin Ql (U) Negative [employer] Other Color (U) light yellow [employer] Other Glucose Ql (U) Negative [employer] Other Hemoglobin Ql (U) Negative [employer] Other Ketones Ql (U) Negative [employer] Other Leukocyte esterase Test strip Ql (U) Negative [employer] Other Nitrite Ql (U) Negative [employer] Other pH (U) 5.0 [pH] [employer] Other Protein Ql (U) Negative [employer] Other Specific gravity (U) [Rel density] 1.005 [employer] Other Urobilinogen (U) [Mass/Vol] 0.5 mg/dL [employer] Other Urinalysis - DIPSTICK [employer] Other CBC AUTO DIFFon 05-21-2022 BASO # 0.0 103/ul Normal 0.0-0.1 [facility] Comment on above: Performed By: #### C BC #### [facility] [address] [place] [address] [address] Arlyn Chan Basophils/100 WBC (Bld) 0.6 % Normal 0.2-2.0 [facility] Comment on above: Performed By: #### C BC #### [facility] [address] [place] [address] Dr. Arlyn Chan EO # 0.1 103/ul Normal 0.0-0.7 [facility] Comment on above: Performed By: #### C BC #### [facility] [address] [place] [address] Dr. Arlyn Chan Eosinophils/100 WBC (Bld) 1.1 % Normal 0.9-7.0 [facility] Comment on above: Performed By: #### C BC #### [facility] [address] [place] [address] Dr. Arlyn Chan Erythrocyte distribution width (RBC) [Ratio] 13.6 % Normal 11.0-15.0 [facility] Comment on above: Performed By: #### C BC #### [facility] [address] [place] [address] Dr. Arlyn Chan Hematocrit (Bld) [Volume fraction] 44.3 % Normal 36.0-48.0 [facility] Comment on above: Performed By: #### C BC #### [facility] [address] [place] [address] Dr. Arlyn Chan Hemoglobin (Bld) [Mass/Vol] 14.8 g/dL Normal 12.0-16.0 [facility] Comment on above: Performed By: #### C BC #### [facility] [address] [place] [address] Dr. Arlyn Chan IG # 0.00 10e3/ul Normal 0.00-0.03 [facility] Comment on above: Performed By: #### C BC #### [facility] [address] [place] [address] Dr. Arlyn Chan IG % 0.0 % Normal 0.0-0.5 [facility] Comment on above: Performed By: #### C BC #### [facility] [address] [place] [address] Dr. Arlyn Chan LYMPH # 1.7 103/ul Normal 1.2-3.8 [facility] Comment on above: Performed By: #### C BC #### [facility] [address] [place] [address] Dr. Arlyn Chan Lymphocytes/100 WBC (Bld) 31.1 % Normal 20.5-60.0 [facility] Comment on above: Performed By: #### C BC #### [facility] [address] [place] [address] Dr. Arlyn Chan MANUAL DIFF REQ NO Normal [facility] Comment on above: Performed By: #### C BC #### [facility] [address] [place] [address] Dr. Arlyn Chan MCH (RBC) [Entitic mass] 31.9 pg Normal 26.7-34.0 [facility] Comment on above: Performed By: #### C BC #### [facility] [address] [place] [address] Dr. Arlyn Chan MCHC (RBC) [Mass/Vol] 33.4 g/dL Normal 29.9-35.2 [facility] Comment on above: Performed By: #### C BC #### [facility] [address] [place] [address] Dr. Arlyn Chan MCV (RBC) [Entitic vol] 95.5 fL Normal 81.0-99.0 [facility] Comment on above: Performed By: #### C BC #### [facility] [address] [place] [address] Dr. Arlyn Chan MONO # 0.5 103/ul Normal 0.3-0.8 [facility] Comment on above: Performed By: #### C BC #### [facility] [address] [place] [address] Dr. Arlyn Chan Monocytes/100 WBC (Bld) 8.8 % Normal 1.7-12.0 [facility] Comment on above: Performed By: #### C BC #### [facility] [address] [place] [address] Dr. Arlyn Chan NEUT # 3.1 103/ul Normal 1.4-6.5 [facility] Comment on above: Performed By: #### C BC #### [facility] [address] [place] [address] Dr. Arlyn Chan Neutrophils/100 WBC (Bld) 58.4 % Normal 43.0-75.0 [facility] Comment on above: Performed By: #### C BC #### [facility] [address] [place] [address] Dr. Arlyn Chan Platelet mean volume (Bld) [Entitic vol] 10.0 fL Normal 9.5-13.5 [facility] Comment on above: Performed By: #### C BC #### [facility] [address] [place] [address] Dr. Arlyn Chan PLT 242 103/ul Normal 150-450 [facility] Comment on above: Performed By: #### C BC #### [facility] [address] [place] [address] Dr. Arlyn Chan RBC 4.64 106/ul Normal 4.20-5.40 [facility] Comment on above: Performed By: #### C BC #### [facility] [address] [place] [address] Dr. Arlyn Chan WBC 5.4 103/ul Normal 4.0-11.0 [facility] Comment on above: Performed By: #### C BC #### [facility] [address] [place] [address] Dr. Arlyn Chan PROF CHEM 8 (BAS METB)on Anion gap [Moles/Vol] 13.9 mmol/L Normal [facility] Comment on above: Performed By: #### H KALINPN, BMP #### [facility] [address] [place] [address] Dr. Arlyn Chan Calcium [Mass/Vol] 9.4 mg/dL Normal 8.5-10.1 [facility] Comment on above: Performed By: #### H KALINPN, BMP #### [facility] [address] [place] [address] Dr. Arlyn Chan Chloride [Moles/Vol] 105 mmol/L Normal 98-107 [facility] Comment on above: Performed By: #### H STROPN, BMP #### [facility] [address] [place] [address] [address] Arlyn Chan CO2 [Moles/Vol] 24.3 mmol/L Normal 21.0-32.0 [facility] Comment on above: Performed By: #### H STROPN, BMP #### [facility] [address] [place] [address] [address] Arlyn Chan Creatinine [Mass/Vol] 0.76 mg/dL Normal 0.55-1.02 [facility] Comment on above: Performed By: #### H STROPN, BMP #### [facility] [address] [place] [address] [address] Arlyn Chan EGFR-AF VENEZUELAN >60 Normal >=60 [facility] Comment on above: Performed By: #### H STROPN, BMP #### [facility] [address] [place] [address] [address] Arlyn Chan EGFR-NON AF VENEZUELAN >60 Normal >=60 [facility] Comment on above: Performed By: #### H STROPN, BMP #### [facility] [address] [place] [address] [address] Arlyn Chan Glucose [Mass/Vol] 96 mg/dL Normal 74-106 [facility] Comment on above: Performed By: #### H STROPN, BMP #### [facility] [address] [place] [address] [address] Arlyn Chan Potassium [Moles/Vol] 4.2 mmol/L Normal 3.5-5.1 [facility] Comment on above: Performed By: #### H STROPN, BMP #### [facility] [address] [place] [address] [address] Arlyn Chan Sodium [Moles/Vol] 139 mmol/L Normal 136-145 [facility] Comment on above: Performed By: #### H STROPN, BMP #### [facility] [address] [place] [address] [address] Arlyn Chan Urea nitrogen [Mass/Vol] 21.0 mg/dL Critically high 7.0-18.0 [facility] Comment on above: Performed By: #### H YURI, BMP #### [facility] [address] [place], [place] [address] Dr. Arlyn Chan Urea nitrogen/Creatinine [Mass ratio] 27.6 mg/mg Normal [facility] Comment on above: Performed By: #### H YURI, BMP #### [facility] [address] [place], [place] [address] Dr. Arlyn Chan Progress Noteson 05-21-2022 [employer] Authentication Interface Message Text EMERGENCY TRIAGE, TREAT AND TRANSPORT (ET3) DOCUMENTATION OF TELEHEALTH VISIT Date / Time: 05/21/2022944 Name: Genny Brewer : 1940 SSN: (Not on file) EMS Agency: [facility] [x] Verbal consent obtained [] Implied [...] the typically is not available at a [place] primary care physician's office. Patient declined using ambulance go to the ER, and her daughter who was present on scene will drive her the 4 minutes will take to get to the [place] [facility]. I advised her to call 911 [...] Completed by: Sudheer Haro MD Normal [facility] [email or web address] [facility] TROPONIN, HIGH SENSITIVITYon 05-21-2022 HSTROP 5.9 pg/mL Normal 4.0-51.3 [facility] Comment on above: Result Comment: CUT- OFF POINTS HAVE BEEN ESTABLISHED BASED ON THE FOURTH UNIVERSAL DEFINITIONS OF MYOCARDIAL INFARCTION. THE UPPER REFERENCE LIMIT (URL) OF TROPONIN, DEFINED THE 99TH PERCENTILE OF cTnI DISTRIBUTION IN A REFERENCE POPULATION, HAS BEEN CONFIRMED THE DECISION THRESHOLD FOR ND DIAGNOSIS. Performed By: #### H YURI, [facility] #### [facility] [address] [place] [address] [address] Arlyn Chan MG MAMM SCREEN 3D VINNY CADon 02-08-2022 MG MAMM SCREEN 3D VINNY CAD Patient: GENNY BREWER Exam Date: 02/08/2022 : 1940 Gender:F Ordering : DR BRANDEN DU D.O. Admission #: [id number] Family : Order #: [id number] CLICK HERE TO VIEW EXAM RADIOLOGY REPORT PROCEDURE: MAMMOGRAM SCREENING 3D BILATERAL CAD COMPARISON: MG MAMM SCREEN VINYN W CAD, 12/30/2019. MG MAMM SCREEN 3D VINNY CAD, 01/03/2021. INDICATIONS: Screening mammography Calculator Name NCI Breast Cancer Risk Assessment Tool 5 Year Breast Cancer Risk 1.30% Lifetime Breast Cancer Risk 1.90% Personal Breast Cancer No Personal Ovarian Cancer No Treatments bowel resection Family Cancers None LOCATION: [facility] BREAST COMPOSITION: Scattered areas fibroglandular density. [...] Addison MD on 02/08/2022 at 14:06 Normal [facility] CT CHEST WO CONon 08-11-2021 [...] by: JOAQUIN SOTO Date: 2021-08-11 17:29 Normal [facility] Vital Signs Date Time Vital Sign Value Performing Clinician Facility 11-04-2024 14:0400 Body height 154.94 cm Branden Du DO Work Phone: [facility] 11-04-2024 14:04-0400 Body mass index (BMI) [Ratio] 26.9 kg/m2 Branden Ball DO Work Phone: [facility] 11-04-2024 14:04-0400 Body weight 64.58 kg Branden Ball DO Work Phone: [facility] 11-04-2024 14:04-0400 Diastolic blood pressure 71 mm[Hg] Branden Ball DO Work Phone: [facility] 11-04-2024 14:04-0400 Heart rate 71 /min Branden Ball DO Work Phone: [facility] 11-04-2024 14:04-0400 Respiratory rate 12 /min Branden Ball DO Work Phone: [facility] 11-04-2024 14:04-0400 Systolic blood pressure 112 mm[Hg] Branden Ball DO Work Phone: [facility] 11-03-2024 14:04-0400 Body height 154.9 cm Vanessa Dave SIGN POSTER-UNLOADER OPERATOR Work Phone: [facility] 11-03-2024 14:04-0400 Body mass index (BMI) [Ratio] 27.21 kg/m2 Vanessa Dave SIGN POSTER-UNLOADER OPERATOR Work Phone: [facility] 11-03-2024 14:04-0400 Body weight 65.32 kg Vanessa Dave SIGN POSTER-UNLOADER OPERATOR Work Phone: [facility] 11-03-2024 14:04-0400 Diastolic blood pressure 60 mm[Hg] Vanessa Dave SIGN POSTER-UNLOADER OPERATOR Work Phone: [facility] 11-03-2024 14:04-0400 Heart rate 60 /min Vanessa Dave SIGN POSTER-UNLOADER OPERATOR Work Phone: [facility] 11-03-2024 14:04-0400 Systolic blood pressure 102 mm[Hg] Vanessa Dave SIGN POSTER-UNLOADER OPERATOR Work Phone: [facility] 09-29-2024 14:31-0400 Body height 154.9 cm Vanessa Dave SIGN POSTER-UNLOADER OPERATOR Work Phone: [facility] 09-29-2024 14:31-0400 Body mass index (BMI) [Ratio] 26.72 kg/m2 Vanessa Dave SIGN POSTER-UNLOADER OPERATOR Work Phone: [facility] 09-29-2024 14:31-0400 Body weight 64.14 kg Vanessa Dave SIGN POSTER-UNLOADER OPERATOR Work Phone: [facility] 09-29-2024 14:31-0400 Diastolic blood pressure 80 mm[Hg] Vanessa Dave SIGN POSTER-UNLOADER OPERATOR Work Phone: [facility] 09-29-2024 14:31-0400 Heart rate 64 /min Vanessa Dave SIGN POSTER-UNLOADER OPERATOR Work Phone: [facility] 09-29-2024 14:31-0400 Systolic blood pressure 140 mm[Hg] Vanessa Dave SIGN POSTER-UNLOADER OPERATOR Work Phone: [facility] 09-29-2024 13:18-0400 Diastolic blood pressure 88 mm[Hg] Branden Ball DO Work Phone: [facility] 09-29-2024 13:18-0400 Systolic blood pressure 152 mm[Hg] Branden Ball DO Work Phone: [facility] 09-29-2024 13:15-0400 Body height 154.94 cm Branden Ball DO Work Phone: [facility] 09-29-2024 13:15-0400 Body mass index (BMI) [Ratio] 26.4 kg/m2 Branden Ball DO Work Phone: [facility] 09-29-2024 13:15-0400 Body weight 63.5 kg Branden Ball DO Work Phone: [facility] 09-29-2024 13:15-0400 Heart rate 60 /min Branden Ball DO Work Phone: [facility] 09-29-2024 13:15-0400 Respiratory rate 20 /min Branden Ball DO Work Phone: [facility] 09-29-2024 13:15-0400 SaO2% (BldA) [Mass fraction] 98 % Branden Ball DO Work Phone: [facility] 08-19-2024 13:31-0400 Body height 154.94 cm [facility] 08-19-2024 13:31-0400 Body mass index (BMI) [Ratio] 26.6 kg/m2 [facility] 08-19-2024 13:31-0400 Body weight 64.12 kg [facility] 08-19-2024 13:31-0400 Diastolic blood pressure 80 mm[Hg] [facility] 08-19-2024 13:31-0400 Heart rate 84 /min [facility] 08-19-2024 13:31-0400 Respiratory rate 12 /min [facility] 08-19-2024 13:31-0400 SaO2% (BldA) [Mass fraction] 99 % [facility] 08-19-2024 13:31-0400 Systolic blood pressure 127 mm[Hg] [facility] 08-05-2024 13:50-0400 Body height 154.9 cm Vanessa Dave SIGN POSTER-UNLOADER OPERATOR Work Phone: [facility] 08-05-2024 13:50-0400 Body mass index (BMI) [Ratio] 27.4 kg/m2 Vanessa Dave SIGN POSTER-UNLOADER OPERATOR Work Phone: [facility] 08-05-2024 13:50-0400 Body weight 65.77 kg Vanessa Dave SIGN POSTER-UNLOADER OPERATOR Work Phone: [facility] 08-05-2024 13:50-0400 Diastolic blood pressure 70 mm[Hg] Vanessa Dave SIGN POSTER-UNLOADER OPERATOR Work Phone: [facility] 08-05-2024 13:50-0400 Heart rate 72 /min Vanessa Dave SIGN POSTER-UNLOADER OPERATOR Work Phone: [facility] 08-05-2024 13:50-0400 Systolic blood pressure 122 mm[Hg] Vanessa Dave SIGN POSTER-UNLOADER OPERATOR Work Phone: [facility] 07-20-2024 11:18-0400 Body height 154.94 cm [facility] 07-20-2024 11:18-0400 Body mass index (BMI) [Ratio] 26.4 kg/m2 [facility] 07-20-2024 11:18-0400 Body weight 63.5 kg [facility] 07-20-2024 11:18-0400 Diastolic blood pressure 86 mm[Hg] [facility] 07-20-2024 11:18-0400 Heart rate 63 /min [facility] 07-20-2024 11:18-0400 Systolic blood pressure 138 mm[Hg] [facility] 05-27-2024 11:23-0500 Body height 154.9 cm Inderjit Saenz DO Work Phone: [facility] 05-27-2024 11:23-0500 Body mass index (BMI) [Ratio] 27.02 kg/m2 Inderjit Saenz DO Work Phone: [facility] 05-27-2024 11:23-0500 Body weight 64.86 kg Inderjit Saenz DO Work Phone: [facility] 05-27-2024 11:23-0500 Diastolic blood pressure 72 mm[Hg] Inderjit Saenz DO Work Phone: [facility] 05-27-2024 11:23-0500 Heart rate 60 /min Inderjit Saenz DO Work Phone: [facility] 05-27-2024 11:23-0500 Systolic blood pressure 110 mm[Hg] Inderjit Saenz DO Work Phone: [facility] 05-12-2024 13:38-0500 Body height 154.94 cm [facility] 05-12-2024 13:38-0500 Body mass index (BMI) [Ratio] 26.4 kg/m2 [facility] 05-12-2024 13:38-0500 Body weight 63.5 kg [facility] 05-12-2024 13:38-0500 Diastolic blood pressure 85 mm[Hg] [facility] 05-12-2024 13:38-0500 Heart rate 68 /min [facility] 05-12-2024 13:38-0500 Respiratory rate 12 /min [facility] 05-12-2024 13:38-0500 Systolic blood pressure 128 mm[Hg] [facility] 03-12-2024 10:45-0500 Body height 154.94 cm [facility] 03-12-2024 10:45-0500 Body mass index (BMI) [Ratio] 27 kg/m2 [facility] 03-12-2024 10:45-0500 Body weight 64.86 kg [facility] 03-12-2024 10:45-0500 Diastolic blood pressure 66 mm[Hg] [facility] 03-12-2024 10:45-0500 Heart rate 60 /min [facility] 03-12-2024 10:45-0500 Respiratory rate 20 /min [facility] 03-12-2024 10:45-0500 SaO2% (BldA) [Mass fraction] 98 % [facility] 03-12-2024 10:45-0500 Systolic blood pressure 156 mm[Hg] [facility] 03-11-2024 13:04-0500 Body height 154.94 cm [facility] 03-11-2024 13:04-0500 Body mass index (BMI) [Ratio] 27.8 kg/m2 [facility] 03-11-2024 13:04-0500 Body weight 66.9 kg [facility] 03-09-2024 16:23-0500 Body height 154.94 cm [facility] 03-09-2024 16:23-0500 Body mass index (BMI) [Ratio] 27.8 kg/m2 [facility] 03-09-2024 16:23-0500 Body weight 66.79 kg [facility] 03-09-2024 16:23-0500 Diastolic blood pressure 81 mm[Hg] [facility] 03-09-2024 16:23-0500 Heart rate 70 /min [facility] 03-09-2024 16:23-0500 Respiratory rate 12 /min [facility] 03-09-2024 16:23-0500 Systolic blood pressure 157 mm[Hg] [facility] 12-20-2023 10:40-0400 Body height 154.9 cm Inderjit Saenz DO Work Phone: [facility] 12-20-2023 10:40-0400 Body mass index (BMI) [Ratio] 27.02 kg/m2 Inderjit Saenz DO Work Phone: [facility] 12-20-2023 10:40-0400 Body weight 64.86 kg Inderjit Saenz DO Work Phone: [facility] 12-20-2023 10:40-0400 Diastolic blood pressure 86 mm[Hg] Inderjit Saenz DO Work Phone: [facility] 12-20-2023 10:40-0400 Heart rate 57 /min Inderjit Saenz DO Work Phone: [facility] 12-20-2023 10:40-0400 Systolic blood pressure 120 mm[Hg] Inderjit Saenz DO Work Phone: [facility] 12-12-2023 13:21-0400 Body height 154.94 cm FLAKITA Álvarez Work Phone: [facility] 12-12-2023 13:21-0400 Body mass index (BMI) [Ratio] 26.6 kg/m2 FLAKITA Álvarez Work Phone: [facility] 12-12-2023 13:21-0400 Body weight 64 kg FLAKITA Álvarez Work Phone: [facility] 12-04-2023 15:49-0400 Body height 154.94 cm FLAKITA Álvarez Work Phone: [facility] 12-04-2023 15:49-0400 Body mass index (BMI) [Ratio] 26.9 kg/m2 PA-Heri Álvarez Work Phone: [facility] 12-04-2023 15:49-0400 Body weight 64.58 kg PA-C Doechanel Álvarez Work Phone: [facility] 12-04-2023 15:49-0400 Diastolic blood pressure 83 mm[Hg] PA-C Doe Álvarez Work Phone: [facility] 12-04-2023 15:49-0400 Heart rate 71 /min PA-C Doe Álvarez Work Phone: [facility] 12-04-2023 15:49-0400 Respiratory rate 12 /min PA-C Doe Álvarez Work Phone: [facility] 12-04-2023 15:49-0400 Systolic blood pressure 151 mm[Hg] PA-C Doechanel Álvarez Work Phone: [facility] 11-12-2023 11:55-0400 Body height 154.94 cm PA-C Doechanel Álvarez Work Phone: [facility] 11-12-2023 11:55-0400 Body mass index (BMI) [Ratio] 27.3 kg/m2 PA-C Doe Álvarez Work Phone: [facility] 11-12-2023 11:55-0400 Body weight 65.48 kg PA-C Doe Álvarez Work Phone: [facility] 11-12-2023 11:55-0400 Diastolic blood pressure 84 mm[Hg] PA-C Doechanel Álvarez Work Phone: [facility] 11-12-2023 11:55-0400 Heart rate 57 /min PA-C Doechanel Álvarez Work Phone: [facility] 11-12-2023 11:55-0400 Respiratory rate 12 /min PA-C Doe Álvarez Work Phone: [facility] 11-12-2023 11:55-0400 Systolic blood pressure 144 mm[Hg] PA-C Doe Álvarez Work Phone: [facility] 11-07-2023 10:05-0400 Body height 154.9 cm Inderjit Saenz DO Work Phone: [facility] 11-07-2023 10:05-0400 Body mass index (BMI) [Ratio] 26.83 kg/m2 Inderjit Saenz DO Work Phone: [facility] 11-07-2023 10:05-0400 Body weight 64.41 kg Inderjit Saenz DO Work Phone: [facility] 11-07-2023 10:05-0400 Diastolic blood pressure 68 mm[Hg] Inderjit Saenz DO Work Phone: [facility] 11-07-2023 10:05-0400 Heart rate 82 /min Inderjit Saenz DO Work Phone: [facility] 11-07-2023 10:05-0400 Systolic blood pressure 118 mm[Hg] Inderjit Saenz DO Work Phone: [facility] 11-05-2023 11:37-0400 Diastolic blood pressure 61 mm[Hg] FLAKITA Álvarez Work Phone: [facility] 11-05-2023 11:37-0400 Heart rate 63 /min FLAKITA Álvarez Work Phone: [facility] 11-05-2023 11:37-0400 Respiratory rate 20 /min IGNACIA-Heri Álvarez Work Phone: [facility] 11-05-2023 11:37-0400 SaO2% (BldA) [Mass fraction] 98 % IGNACIA-Heri Álvarez Work Phone: [facility] 11-05-2023 11:37-0400 Systolic blood pressure 143 mm[Hg] IGNACIA-Heri Álvarez Work Phone: [facility] 11-05-2023 09:10-0400 Body temperature 97.8 [degF] PA-C Doe Álvarez Work Phone: [facility] 11-05-2023 07:18-0400 Body height 154.94 cm PA-C Doe Álvarez Work Phone: [facility] 11-05-2023 07:18-0400 Body weight 65.77 kg PA-C Doe Álvarez Work Phone: [facility] 10-29-2023 16:00-0400 Body temperature 98.2 [degF] PA-C Doe Álvarez Work Phone: [facility] 10-29-2023 16:00-0400 Diastolic blood pressure 88 mm[Hg] PA-C Doe Álvarez Work Phone: [facility] 10-29-2023 16:00-0400 Heart rate 58 /min PA-C Doe Álvarez Work Phone: [facility] 10-29-2023 16:00-0400 Respiratory rate 16 /min PA-C Doe Álvarez Work Phone: [facility] 10-29-2023 16:00-0400 SaO2% (BldA) [Mass fraction] 96 % PA-C Doe Álvarez Work Phone: [facility] 10-29-2023 16:00-0400 Systolic blood pressure 140 mm[Hg] PA-C Doe Álvarez Work Phone: [facility] 10-29-2023 06:00-0400 Body weight 65.6 kg PA-C Doe Álvarez Work Phone: [facility] 10-29-2023 06:00-0400 Inhaled oxygen flow rate 2 L/min PA-C Doe Álvarez Work Phone: [facility] 10-27-2023 21:42-0400 Body height 154.94 cm PA-C Doe Álvarez Work Phone: [facility] 10-27-2023 19:05-0400 Diastolic blood pressure 64 mm[Hg] PA-C Doe Henri Work Phone: [facility] 10-27-2023 19:05-0400 Heart rate 75 /min PA-C Doe Henri Work Phone: [facility] 10-27-2023 19:05-0400 Respiratory rate 28 /min PA-C Doe Henri Work Phone: [facility] 10-27-2023 19:05-0400 SaO2% (BldA) [Mass fraction] 96 % PA-C Doe Henri Work Phone: [facility] 10-27-2023 19:05-0400 Systolic blood pressure 120 mm[Hg] PA-C Doe Henri Work Phone: [facility] 10-27-2023 17:31-0400 Body temperature 97.9 [degF] PA-C Doe Henri Work Phone: [facility] 10-27-2023 17:11-0400 Body height 154.94 cm PA-C Doe Henri Work Phone: [facility] 10-27-2023 17:11-0400 Body weight 66.3 kg PA-Heri Doe Henri Work Phone: [facility] 06-20-2023 14:32-0400 Body height 165.1 cm DO Branden Ball Work Phone: [facility] 06-20-2023 14:32-0400 Body mass index (BMI) [Ratio] 24.4 kg/m2 DO Branden Ball Work Phone: [facility] 06-20-2023 14:32-0400 Body weight 66.67 kg DO Branden Ball Work Phone: [facility] 06-20-2023 14:32-0400 Diastolic blood pressure 77 mm[Hg] DO Branden Ball Work Phone: [facility] 06-20-2023 14:32-0400 Heart rate 83 /min DO Branden Ball Work Phone: [facility] 06-20-2023 14:32-0400 Systolic blood pressure 150 mm[Hg] DO Branden Ball Work Phone: [facility] 06-07-2023 09:28-0400 Body height 165.1 cm DO Branden Ball Work Phone: [facility] 06-07-2023 09:28-0400 Body mass index (BMI) [Ratio] 24.6 kg/m2 DO Branden Ball Work Phone: [facility] 06-07-2023 09:28-0400 Body weight 67.18 kg DO Branden Ball Work Phone: [facility] 06-07-2023 09:28-0400 Diastolic blood pressure 87 mm[Hg] DO Branden Ball Work Phone: [facility] 06-07-2023 09:28-0400 Heart rate 77 /min DO Branden Ball Work Phone: [facility] 06-07-2023 09:28-0400 Respiratory rate 12 /min DO Branden Ball Work Phone: [facility] 06-07-2023 09:28-0400 Systolic blood pressure 146 mm[Hg] DO Branden Ball Work Phone: [facility] 05-21-2023 10:24-0500 Body height 165.1 cm DO Branden Ball Work Phone: [facility] 05-21-2023 10:24-0500 Body mass index (BMI) [Ratio] 24.3 kg/m2 DO Branden Ball Work Phone: [facility] 05-21-2023 10:24-0500 Body weight 66.22 kg DO Branden Ball Work Phone: [facility] 05-21-2023 10:24-0500 Diastolic blood pressure 81 mm[Hg] DO Branden Ball Work Phone: [facility] 05-21-2023 10:24-0500 Heart rate 71 /min DO Branden Ball Work Phone: [facility] 05-21-2023 10:24-0500 Respiratory rate 16 /min DO Branden Ball Work Phone: [facility] 05-21-2023 10:24-0500 Systolic blood pressure 131 mm[Hg] DO Branden Ball Work Phone: [facility] 04-12-2023 11:30-0500 Body height 165.1 cm Branden Ball Other [facility] 04-12-2023 11:30-0500 Body mass index (BMI) [Ratio] 24.59 kg/m2 Branden Ball Other [facility] [employer] Other 04-12-2023 11:30-0500 Body weight 67.04 kg Branden Ball Other [facility] 04-12-2023 11:30-0500 Diastolic blood pressure 75 mm[Hg] Branden Ball Other [facility] 04-12-2023 11:30-0500 Respiratory rate 12 /min Branden Ball Other [facility] [employer] Other 04-12-2023 11:30-0500 Systolic blood pressure 122 mm[Hg] Branden Ball Other [facility] 03-26-2023 11:30-0500 Body height 165.1 cm Branden Ball Other [facility] 03-26-2023 11:30-0500 Body mass index (BMI) [Ratio] 24.89 kg/m2 Branden Ball Other [facility] [employer] Other 03-26-2023 11:30-0500 Body weight 67.86 kg Branden Ball Other [facility] [employer] Other 03-26-2023 11:30-0500 Body weight 67.85 kg DO Branden Ball Work Phone: [facility] 03-26-2023 11:30-0500 Diastolic blood pressure 82 mm[Hg] Branden Ball Other [facility] 03-26-2023 11:30-0500 Respiratory rate 12 /min Branden Ball Other [facility] [employer] Other 03-26-2023 11:30-0500 Systolic blood pressure 192 mm[Hg] Branden Ball Other [facility] 02-08-2023 13:30-0500 Body height 165.1 cm Branden Ball Other [facility] 02-08-2023 13:30-0500 Body mass index (BMI) [Ratio] 24.29 kg/m2 Branden Ball Other [facility] [employer] Other 02-08-2023 13:30-0500 Body weight 66.23 kg Branden Ball Other [facility] [employer] Other 02-08-2023 13:30-0500 Body weight 66.22 kg DO Branden Ball Work Phone: [facility] 02-08-2023 13:30-0500 Diastolic blood pressure 79 mm[Hg] Branden Ball Other [facility] 02-08-2023 13:30-0500 Respiratory rate 12 /min Branden Ball Other [facility] [employer] Other 02-08-2023 13:30-0500 Systolic blood pressure 128 mm[Hg] Branden Ball Other [facility] 08-27-2022 11:15-0400 Body height 165.1 cm Branden Ball Other [facility] [employer] Other 08-27-2022 11:15-0400 Body mass index (BMI) [Ratio] 24.06 kg/m2 Branden Ball Other [facility] [employer] Other 08-27-2022 11:15-0400 Body weight 65.59 kg Branden Ball Other [employer] Other 08-27-2022 11:15-0400 Diastolic blood pressure 83 mm[Hg] Branden Ball Other [employer] Other 08-27-2022 11:15-0400 Respiratory rate 12 /min Branden Ball Other [employer] Other 08-27-2022 11:15-0400 Systolic blood pressure 152 mm[Hg] Branden Ball Other [facility] Other 07-09-2022 15:00-0400 Body height 165.1 cm Branden Ball Other [employer] Other 07-09-2022 15:00-0400 Body mass index (BMI) [Ratio] 23.23 kg/m2 Branden Ball Other [facility] Other 07-09-2022 15:00-0400 Body weight 63.32 kg Branden Ball Other [facility] Other 07-09-2022 15:00-0400 Diastolic blood pressure 72 mm[Hg] Branden Ball Other [facility] Other 07-09-2022 15:00-0400 Respiratory rate 12 /min Branden Ball Other [facility] Other 07-09-2022 15:00-0400 Systolic blood pressure 134 mm[Hg] Branden Ball Other [facility] Other 05-21-2022 15:45-0500 Body height 165.1 cm Branden Ball Other [facility] Other 05-21-2022 15:45-0500 Body mass index (BMI) [Ratio] 24.56 kg/m2 Branden Du Other [employer] Other 05-21-2022 15:45-0500 Body weight 66.95 kg Branden Du Other [employer] Other 05-21-2022 15:45-0500 Diastolic blood pressure 82 mm[Hg] Branden Du Other [facility] Other 05-21-2022 15:45-0500 Respiratory rate 12 /min Branden Du Other [facility] Other 05-21-2022 15:45-0500 Systolic blood pressure 136 mm[Hg] Branden Du Other [facility] Other 05-21-2022 09:45-0500 Diastolic blood pressure 92 mm[Hg] [facility] 05-21-2022 09:45-0500 Heart rate 72 /min [facility] 05-21-2022 09:45-0500 Respiratory rate 18 /min [facility] 05-21-2022 09:45-0500 SaO2% (BldA) [Mass fraction] 98 % [facility] [facility] 05-21-2022 09:45-0500 Systolic blood pressure 181 mm[Hg] [facility] [facility] Encounters Encounter Date Encounter Type Care Provider Facility Start: 11-04-2024 End: 11-04-2024 ambulatory Branden Du DO Work Phone: [facility] Work Phone: Start: 11-04-2024 End: 11-04-2024 Patient encounter procedure Branden Du DO -[facility] Work Phone: Start: 11-03-2024 End: 11-03-2024 Office outpatient visit 10 minutes Vanessa Dave SIGN POSTER-UNLOADER OPERATOR Work Phone: [facility] Comment on above: BMI 27.0-27.9,adult (Primary Dx); Essential hypertension; Localized edema Start: 11-03-2024 End: 11-03-2024 ambulatory [facility] Start: 10-03-2024 End: 10-03-2024 ambulatory Branden Du DO Work Phone: [facility] Work Phone: Start: 10-03-2024 End: 10-03-2024 Departed Referred Laurie Mills MD -[facility] Start: 10-03-2024 Non-patient / Non-visit Laurie cervantes MD -[facility] Work Phone: Start: 09-29-2024 End: 09-29-2024 Office outpatient visit 15 minutes Vanessa Dave SIGN POSTER-UNLOADER OPERATOR Work Phone: [facility] Comment on above: Essential hypertensi on (Primary Dx); Fatigue, unspecified type; BMI 26.0-26.9,adult Start: 09-29-2024 End: 09-29-2024 ambulatory [facility] Start: 09-29-2024 End: 09-29-2024 ambulatory Branden Ball DO Work Phone: [facility] Work Phone: Start: 09-29-2024 End: 09-29-2024 Patient encounter procedure Sobia Okeefe MD -[facility] Work Phone: Start: 08-19-2024 End: 08-19-2024 ambulatory [facility] Work Phone: Start: 08-19-2024 End: 08-19-2024 Patient encounter procedure [facility] Work Phone: Start: 08-05-2024 Non-patient / Non-visit [facility] Work Phone: Start: 08-05-2024 End: 08-05-2024 Office outpatient visit 25 minutes Vanessa Dave SIGN POSTER-UNLOADER OPERATOR Work Phone: [facility] Comment on above: Hyperlipidemia, unsp ecified hyperlipidemia type (Primary Dx); Coronary artery disease, unspecified vessel or lesion type, unspecified whether angina present, unspecified whether lumbee or transplanted heart; History of ST elevation myocardial infarction (STEMI); Essential hypertension; BMI 27.0-27.9,adult; Fatigue, unspecified type; Shortness of breath Start: 08-05-2024 End: 08-05-2024 ambulatory [facility] Start: 07-20-2024 End: 07-20-2024 ambulatory [facility] Work Phone: Start: 07-20-2024 End: 07-20-2024 Patient encounter procedure [facility] Work Phone: Start: 05-27-2024 End: 05-27-2024 Office outpatient visit 15 minutes [facility] Work Phone: [facility] Comment on above: Coronary artery dise ase, unspecified vessel or lesion type, unspecified whether angina present, unspecified whether lumbee or transplanted heart; History of ST elevation myocardial infarction (STEMI); History of PTCA; Hyperlipidemia, unspecified hyperlipidemia type; Essential hypertension; BMI 27.0-27.9,adult; Former smoker Start: 05-27-2024 End: 05-27-2024 ambulatory [facility] Start: 05-12-2024 End: 05-12-2024 [facility] Work Phone: Start: 05-12-2024 End: 05-12-2024 Patient encounter procedure [facility] Work Phone: Start: 04-28-2024 Non-patient / Non-visit [facility] Work Phone: Start: 03-12-2024 End: 03-12-2024 Patient encounter procedure [facility] Work Phone: Start: 03-11-2024 End: 03-11-2024 Patient encounter procedure [facility] Physician [facility] Work Phone: Start: 03-09-2024 End: 03-09-2024 Patient encounter procedure [facility] Work Phone: Start: 03-07-2024 Patient encounter procedure [facility] Start: 03-06-2024 Non-patient / Non-visit [facility] Work Phone: Start: 12-20-2023 End: 12-20-2023 Office outpatient visit 25 minutes Inderjit Bauman [facility] Work Phone: [facility] Comment on above: Near syncope; Fatigue, unspecified type; History of PTCA; Essential hypertension; History of ST elevation myocardial infarction (STEMI); Shortness of breath; Coronary artery disease, unspecified vessel or lesion type, unspecified whether angina present, unspecified whether lumbee or transplanted heart; Former smoker; BMI 27.0-27.9,adult Start: 12-20-2023 End: 12-20-2023 ambulatory [facility] Start: 12-12-2023 End: 12-12-2023 ambulatory FLAKITA Álvarez Work Phone: [facility] Work Phone: Start: 12-12-2023 End: 12-12-2023 Patient encounter procedure PAPrieto Álvarez Work Phone: [facility] Physician [facility] Work Phone: Start: 12-04-2023 End: 12-04-2023 ambulatory FLAKITA Álvarez Work Phone: [facility] Work Phone: Start: 12-04-2023 End: 12-04-2023 Patient encounter procedure FLAKITA Álvarez Work Phone: [facility] Physician [facility] Work Phone: Start: 11-12-2023 End: 11-12-2023 ambulatory IGNACIA-Heri Álvarez Work Phone: [facility] Work Phone: Start: 11-12-2023 End: 11-12-2023 Patient encounter procedure PA-C Doe Álvarez Work Phone: [facility] Work Phone: Start: 11-07-2023 End: 11-07-2023 Transitional care manage srvc 7 day discharge Inderjit Saenz DO Work Phone: [facility] Comment on above: Coronary artery dise ase, unspecified vessel or lesion type, unspecified whether angina present, unspecified whether lumbee or transplanted heart; History of PTCA; History of ST elevation myocardial infarction (STEMI); Shortness of breath; Former smoker; BMI 26.0-26.9,adult; Hyperlipidemia, unspecified hyperlipidemia type Start: 11-05-2023 Non-patient / Non-visit PA-C A amanda Álvarez Work Phone: [facility] Physician [facility] Work Phone: Start: 11-05-2023 End: 11-05-2023 Emergency department patient visit PA-C Doe Álvarez Work Phone: [facility]-Emergency Room Work Phone: Start: 10-28-2023 Non-patient / Non-visit PA-C Evelyn Álvarez Work Phone: [facility] Physician [facility] Pulmonary Disease Work Phone: Start: 10-27-2023 End: 10-29-2023 Evaluation and management of inpatient PA-C Doe Álvarez Work Phone: [facility] [place] [facility] Work Phone: Start: 06-20-2023 End: 06-20-2023 ambulatory DO Branden Du Work Phone: [facility] Work Phone: Start: 06-20-2023 End: 06-20-2023 Patient encounter procedure DO Branden Du Work Phone: [facility] Work Phone: Start: 06-07-2023 End: 06-07-2023 ambulatory DO Branden Ball Work Phone: [facility] Work Phone: Start: 06-07-2023 End: 06-07-2023 Patient encounter procedure DO Branden Ball Work Phone: [facility] Work Phone: Start: 05-21-2023 End: 05-21-2023 Patient encounter procedure DO Branden Ball Work Phone: [facility] Work Phone: Start: 05-06-2023 End: 05-06-2023 ambulatory DO Branden Ball Work Phone: [facility] Work Phone: Start: 05-06-2023 End: 05-06-2023 Patient encounter procedure DO Branden Ball Work Phone: [facility]-Pet Scan Work Phone: Start: 04-24-2023 End: 04-24-2023 ambulatory ELENA HASSAN Not Available Start: 04-23-2023 End: 04-23-2023 ambulatory Branden Ball Other [facility] Other Start: 04-23-2023 Telephone encounter Branden Ball [facility] Start: 04-22-2023 End: 04-22-2023 ambulatory Branden Ball Other [facility] Other Start: 04-22-2023 Telephone encounter Branden Ball [facility] Start: 04-17-2023 End: 04-17-2023 ambulatory Branden Ball Other [facility] Other Start: 04-17-2023 Telephone encounter Branden Ball [facility] Start: 04-12-2023 End: 04-12-2023 ambulatory Branden Ball Other [facility] Other Start: 04-12-2023 Office outpatient vi sit 15 minutes Branden Ball [facility] Start: 04-12-2023 Telephone encounter Branden Ball [facility] Start: 04-12-2023 End: 04-12-2023 Patient encounter procedure DO Branden Ball Work Phone: [facility]- Start: 04-08-2023 End: 04-08-2023 ambulatory Branden Ball Other [facility] Other Start: 04-08-2023 Telephone encounter Branden Ball [facility] Start: 04-01-2023 End: 04-01-2023 ambulatory Branden Ball Other [facility] Other Start: 04-01-2023 Telephone encounter Branden Ball [facility] Start: 03-27-2023 End: 03-27-2023 ambulatory Branden Ball Other [facility] Other Start: 03-27-2023 Telephone encounter Branden Ball [facility] Start: 03-26-2023 End: 03-26-2023 ambulatory Branden Ball Other [facility] Other Start: 03-26-2023 Office outpatient vi sit 15 minutes Branden Ball [facility] Start: 03-26-2023 End: 03-26-2023 Patient encounter procedure DO Branden Ball Work Phone: [facility] Work Phone: Start: 03-14-2023 End: 03-14-2023 ambulatory Branden Ball Other [facility] Other Start: 03-14-2023 Telephone encounter Branden Ball [facility] Start: 02-19-2023 End: 02-19-2023 ambulatory Branden Ball Other [facility] Other Start: 02-19-2023 Telephone encounter Branden Ball [facility] Start: 02-08-2023 End: 02-08-2023 ambulatory Branden Du Other [facility] Other Start: 02-08-2023 Patient encounter procedure Branden Du [facility] Start: 02-08-2023 End: 02-08-2023 Patient encounter procedure DO Branden Du Work Phone: [facility] Work Phone: Start: 09-20-2022 End: 09-20-2022 ambulatory Branden Du Other [facility] Other Start: 09-20-2022 Telephone encounter Branden ALAS [facility] Start: 08-27-2022 End: 08-27-2022 ambulatory Branden Du Other [facility] Other Start: 08-27-2022 Office outpatient vi sit 15 minutes Branden Du [facility] Start: 08-24-2022 End: 08-24-2022 ambulatory Branden Du Other [facility] Other Start: 08-24-2022 Nursing evaluation o f patient and report Branden Du [facility] Start: 07-09-2022 End: 07-09-2022 ambulatory Branden Du Other [facility] Other Start: 07-09-2022 Office outpatient vi sit 15 minutes Branden Du [facility] Start: 06-12-2022 End: 06-12-2022 ambulatory Branden Du Other [facility] Other Start: 06-12-2022 Telephone encounter Branden ALAS [facility] Start: 06-11-2022 End: 06-11-2022 ambulatory Branden Du Other [facility] Other Start: 06-11-2022 Telephone encounter Branden ALAS [facility] Start: 05-22-2022 End: 05-22-2022 ambulatory Branden Du Other [facility] Other Start: 05-22-2022 Telephone encounter Branden Du [facility] Start: 05-21-2022 Office outpatient vi sit 15 minutes Branden Du [facility] Start: 05-21-2022 End: 05-23-[address] BRANDEN DU Facility:[facility]1 Start: 05-21-2022 End: 05-21-2022 [facility] Start: 05-21-2022 End: 05-21-2022 Emergency department patient visit [facility] Emergency Triage, Treat and Transport Comment on above: Arrived Start: 05-04-2022 End: 05-04-2022 ambulatory Branden Du Other [facility] Other Start: 05-04-2022 Telephone encounter Branden ALAS [facility] Start: 05-03-2022 End: 05-03-2022 ambulatory Branden Du Other [facility] Other Start: 05-03-2022 Telephone encounter Branden Du [facility] Start: 02-08-2022 End: 02-09-2022 ambulatory [...] procedure 01/27/2025 1:00 PM EST Office Visit [address] [place] [address] Vanessa Dave, SIGN POSTER-UNLOADER OPERATOR [address] [facility] [address] [place] [address] [facility] Start: 11-23-2024 Influenza vaccination Influenza Vacc ine (#1) [facility] Start: 11-03-2024 End: 11-03-2024 Patient encounter procedure 11/03/2024 2:00 PM EDT Office Visit [address] [place] [address] Vanessa Dave, SIGN POSTER-UNLOADER OPERATOR [address] [facility] [address] [place] [address] [facility] Start: 11-03-2024 End: 11-03-2026 US.doppler Lower extremity vein - right Vascular US lower extremity venous duplex right Vascular Ultrasound STAT Localized edema Expected: 11/03/2024 (Approximate), Expires: 11/03/2026 [facility] Work Phone: Comment on above: Expected: 11/03/2024 (Approximate), Expires: 11/03/2026 Start: 10-03-2024 Urine culture [facility] Start: 10-03-2024 Bacteria identified in Urine by Culture Urine Culture [facility] Start: 09-08-2024 End: 09-08-2024 Patient encounter procedure 09/08/2024 1:00 PM EDT Office Visit [facility] [address] [place] [id number] Vanessa Dave, SIGN POSTER-UNLOADER OPERATOR [address] [place] [address] [facility] Start: 08-05-2024 End: 08-05-2025 Basic metabolic 2000 panel - Serum or Plasma Basic Metabolic Panel Lab Routine Coronary artery disease, unspecified vessel or lesion type, unspecified whether angina present, unspecified whether lumbee or transplanted heart Essential hypertension Fatigue, unspecified type Expected: 08/05/2024 (Approximate), Expires: 08/05/2025 [facility] Work Phone: Comment on above: Expected: 08/05/2024 (Approximate), Expires: 08/05/2025 Start: 08-05-2024 End: 08-05-2025 CBC panel - Blood by Automated count CBC Lab Routine Coronary artery disease, unspecified vessel or lesion type, unspecified whether angina present, unspecified whether lumbee or transplanted heart Essential hypertension Fatigue, unspecified type Expected: 08/05/2024 (Approximate), Expires: 08/05/2025 [facility] Work Phone: Comment on above: Expected: 08/05/2024 (Approximate), Expires: 08/05/2025 Start: 08-05-2024 End: 08-05-2025 Thyrotropin [Units/volume] in Serum or Plasma Thyroid Stimulating Hormone Lab Routine Coronary artery disease, unspecified vessel or lesion type, unspecified whether angina present, unspecified whether lumbee or transplanted heart Essential hypertension Fatigue, unspecified type Expected: 08/05/2024 (Approximate), Expires: 08/05/2025 [facility] Work Phone: Comment on above: Expected: 08/05/2024 (Approximate), Expires: 08/05/2025 Start: 06-03-2024 COVID-19 Vaccine () COVID-19 Vaccine () [facility] Start: 05-27-2024 End: 05-27-2024 Patient encounter procedure 05/27/2024 10:50 AM EST Office Visit [facility] [address] [place] [address] Inderjit Saenz, DO [address] [place] [address] [facility] Start: 03-11-2024 End: 03-11-2024 Patient encounter procedure 03/11/2024 10:40 AM EST Office Visit [facility] [address] [place] [address] Inderjit Saenz, DO [address] [place] [address] [facility] Start: 11-24-2023 Influenza vaccination Influenza Vacc ine (#1) [facility] Start: 10-29-2023 [facility] Start: 10-27-2023 Consultation [facility] Start: 10-27-2023 Hospital admission [facility] Start: 10-27-2023 Referral to cardiac rehabilitation program [facility] Start: 10-27-2023 [facility] Start: 10-27-2023 End: 10-27-2023 [facility] Start: 10-27-2023 Dilation of Coronary Artery, One Artery with Drug-eluting Intraluminal Device, Percutaneous Approach Dilation of Coronary Artery, One Artery with Drug-eluting Intraluminal Device, Percutaneous Approach [facility] Start: 10-27-2023 Fluoroscopy of Left Heart using Low Osmolar Contrast Fluoroscopy of Left Heart using Low Osmolar Contrast [facility] Start: 10-27-2023 Fluoroscopy of Multi ple Coronary Arteries using Low Osmolar Contrast Fluoroscopy of Multiple Coronary Arteries using Low Osmolar Contrast [facility] Start: 10-27-2023 Measurement of Cardi ac Sampling and Pressure, Left Heart, Percutaneous Approach Measurement of Cardiac Sampling and Pressure, Left Heart, Percutaneous Approach [facility] Start: 05-21-2023 Patient referral [facility] Work Phone: Start: 04-29-2023 COVID-19 Vaccine ( season) COVID-19 Vaccine ( season) [facility] Start: 12-23-2021 Influenza vaccination Influenza Vacc ine (#1) [facility] Start: 2005 Pneumococcal vaccination Pneum ococcal Vaccine(s) (65+ yrs) (1 - PCV) [facility] Start: 2005 Screening for osteoporosis [facility] Start: 1990 Shingles (RZV) Vacci ne (1 of 2) Shingles (RZV) Vaccine (1 of 2) [facility] Start: 1962 DTaP/Tdap/Td Vaccine s (1 - Tdap) DTaP/Tdap/Td Vaccines (1 - Tdap) [facility] Start: 1958 Tetanus + diphtheria + acellular pertussis vaccine (product) Tdap Booster [facility] Start: 04-24-1941 COVID-19 Vaccine (#1) COVID-19 Vacci ne (#1) [facility] Start: 1940 Basic metabolic 2000 panel - Serum or Plasma Basic Metabolic Panel [facility] Start: 1940 Lipid panel Lipid Panel [facility] Start: 1940 Medicare Annual Well ness Visit Medicare Annual Wellness Visit (AWV) [facility] Start: 1940 Screening for osteoporosis Bone Density Scan [facility] Comprehensive metabo lic 1999 panel - Serum or Plasma [facility] CT Chest WO contrast [facility] CT Chest WO contrast [facility] MG Breast - bilatera l Screening [facility] MR Shoulder - right WO contrast [facility] Patient Education Coronary Angio plasty (DC) Coronary Stenting (DC) Angina (DC) Chest Pain (DC) Drug Eluting Stents Know your Meds [facility] Work Phone: Patient referral [facility] Work Phone: XR Cervical spine Vi ews W flexion and W extension [facility] Immunizations Immunization Date Immunization Notes Care Provider Fa cilianum 12-05-2023 Moderna COVID-19 vaccine, 12 years and older (50mcg/0.5mL)(Spikevax ) Inderjit Saenz DO Work Phone: [facility] Work Phone: 12-04-2023 influenza, high dose seasonal, preservative-free FLAKITA Álvarez Work Phone: [facility] 12-04-2023 influenza virus vaccine, unspecified formulation Vanessa Dave SIGN POSTER-UNLOADER OPERATOR Work Phone: [facility] Work Phone: 05-06-2023 zoster vaccine recombinant Inderjit Jett DO Work Phone: [facility] Work Phone: 12-27-2022 Influenza, Seasonal, Quadrivalent, Adjuvanted Vanessa Dave SIGN POSTER-UNLOADER OPERATOR Work Phone: [facility] Work Phone: 12-27-2022 Pfizer COVID-19 vaccine, 12 years and older, (30mcg/0.3mL) (Comirnaty) Inderjit Saenz DO Work Phone: [facility] Work Phone: 12-27-2022 RESPIRATORY SYNCYTIA L VIRUS (RSV), ELIGIBLE PTS, 0.5 ML (ABRYSVO) Inderjit Saenz DO Work Phone: [facility] Work Phone: 12-27-2022 influenza virus vaccine, unspecified formulation Inderjit Saenz DO Work Phone: [facility] Work Phone: 08-06-2022 Pneumococcal conjuga te vaccine, 20-valent (PREVNAR 20) Inderjit Saenz DO Work Phone: [facility] Work Phone: 08-06-2022 zoster vaccine recombinant Inderjit Saenz DO Work Phone: [facility] Work Phone: 12-27-2021 Moderna COVID-19 vaccine, bivalent, blue cap/grady label *Check age/dose* Inderjit Saenz DO Work Phone: [facility] 12-13-2021 influenza virus vaccine, split virus (incl. purified surface antigen) Branden Du Other [facility] [employer] Other 12-13-2021 influenza virus vaccine, unspecified formulation DO Branden Du Work Phone: [facility] 12-13-2021 Influenza, Seasonal, Quadrivalent, Adjuvanted Vanessa Dave SIGN POSTER-UNLOADER OPERATOR Work Phone: [facility] Work Phone: 12-14-2020 influenza virus vaccine, split virus (incl. purified surface antigen) Branden Du Other [facility] Other 12-14-2020 influenza virus vaccine, unspecified formulation DO Branden Du Work Phone: [facility] 12-14-2020 Seasonal trivalent influenza vaccine, adjuvanted, preservative free Vanessa Dave SIGN POSTER-UNLOADER OPERATOR Work Phone: [facility] Work Phone: 12-04-2019 influenza virus vaccine, split virus (incl. purified surface antigen) Branden Du Other [facility] Other 12-04-2019 influenza virus vaccine, unspecified formulation DO Branden Du Work Phone: [facility] 12-16-2018 influenza virus vaccine, split virus (incl. purified surface antigen) Branden Du Other [facility] [employer] Other 12-16-2018 influenza virus vaccine, unspecified formulation DO Branden Du Work Phone: [facility] 01-15-2018 influenza virus vaccine, split virus (incl. purified surface antigen) Branden Du Other [facility] [employer] Other 01-15-2018 influenza virus vaccine, unspecified formulation DO Branden Du Work Phone: [facility] 01-15-2018 influenza, injectabl e, quadrivalent, contains preservative Vanessa Dave SIGN POSTER-UNLOADER OPERATOR Work Phone: [facility] Work Phone: 01-12-2017 influenza virus vaccine, split virus (incl. purified surface antigen) Branden Du Other [facility] 01-12-2017 influenza virus vaccine, unspecified formulation DO Brnaden Du Work Phone: [facility] 12-27-2015 influenza virus vaccine, split virus (incl. purified surface antigen) Branden Du Other [facility] [employer] Other 12-27-2015 influenza virus vaccine, unspecified formulation DO Branden Du Work Phone: [facility] 12-27-2015 influenza, high dose seasonal, preservative-free Inderjit Saenz DO Work Phone: [facility] Work Phone: 01-28-2015 pneumococcal conjuga te vaccine, 13 valent Branden Du Other [facility] 12-16-2014 influenza, high dose seasonal, preservative-free Inderjit Sanez DO Work Phone: [facility] Work Phone: 05-26-2010 zoster vaccine, live Inderjit Saenz DO Work Phone: [facility] Work Phone: 03-08-2009 novel [id number], preservative-free, injectable Vanessa Dave SIGN POSTER-UNLOADER OPERATOR Work Phone: [facility] Work Phone: Payers Date Payer Category Payer Unknown [id number] 2023 Self-pay 2023 Medicare supplementa l policy (as second payer) AARP Member Subscriber Plan / Payer (Effective 2023-Present) Name: Genny Brewer Relation to Subscriber: Self Name: Genny Brewer Payer ID: Not on file Group ID: Not on file Type: Not on file Address: [facility] [id number] [place] [id number] 2022 Unknown [id number] 2022 Unknown [id number] 2005 Medicare [id number] 1959 Medicare [id number] 1959 Unknown [id number] 1940 Unknown [id number] [id number]. 2.593 1940 Unknown [id number] [id number]. 2.593 1940 Unknown [id number] [id number]. 2.593 1940 Unknown [id number] [id number]. 2.732 1940 Unknown [id number] 2.16.840.1.939211.3.579. 2.1259 1940 Unknown [id number] [id number]. 2.1244 1940 Unknown [id number] [id number]. 2.1244 1940 Unknown [id number] [id number]. 2.1244 1940 Unknown [id number] [id number]. 2.1244 1940 Unknown [id number] [id number]. 2.1244 Medicare Medicare [id number] Unknown [id number] [id number]. 2.531 Unknown [id number] [id number]. 2.531 Unknown [id number] [id number]. 2.531 Social History Date Type Detail Facility Tobacco smoking status KYIS Tobacco smoking consumption unknown [facility] Start: 1940 Sex Assigned At [facility] file [facility] Start: 12-20-2023 End: 11-03-2024 Sex Assigned At [facility] [employer] Other Start: 1940 Sex Assigned At Female F [facility] Start: 06-20-2023 Tobacco smoking status KYIS Never smoked tobacco (finding) [facility] Start: 10-27-2023 End: 08-18-2024 Tobacco smoking status KYIS Ex-smoker (finding) [facility] Start: 11-05-2023 Tobacco smoking status KYIS Current some day smoker [facility] Start: 03-25-1956 History of tobacco use Current smoker [facility] Work Phone: Start: 03-25-1956 History of tobacco use Cigarette Smoker [facility] Work Phone: Start: 11-07-2023 End: 11-03-2024 Tobacco use and exposure Smokeless tobacco non-user [facility] Work Phone: Start: 11-07-2023 End: 11-03-2024 Alcoholic beverage intake Current drinker of alcohol (finding) [facility] Work Phone: Start: 10-28-2023 End: 08-05-2024 Exposure to SARS-CoV-2 (event) Not sure [facility] Start: 12-20-2023 End: 11-03-2024 Alcoholic beverage intake [facility] Work Phone: Start: 05-12-2024 End: 08-19-2024 Sex Female (finding) [facility] Start: 02-17-2022 Sex Female [facility] Medical Equipment Procedure Code Equipment Code Equipment Origin al Text Equipment Identifier Dates CL STENT PEDRO FRONTIER 4.0 X 18 FDA Start: 10-27-2023 Femoral artery closure plug/patch, synthetic polymer ([id number] FDA Start: 10-27-2023 CL STENT PEDRO FRONTIER [...] Facility 10-29-2023 Functional status Patient at Baseline [facility] Work Phone: Mental Status Date Assessment Result Facility 10-29-2023 Cognitive function Cognitive Sta tus Patient at Baseline [facility] Work Phone: Clinical Notes 05-04-2022 to 11-03-2024 Assessment & Plan Note - ROLAND Becerril - 11/03/2024 2:22 PM EDTAssessment & Plan Note - ROLAND Becerril - 11/03/2024 2:22 PM EDTPatient InstructionsPatient Instructions Note Date & Type Note Facility 11-03-2024 Evaluation + Plan note Associated Problem(s): Localized edema After flight to [place] has noticed RLE pedal edema and calf pain. Will get USN to rule out DVT [facility] Work Phone: 11-03-2024 Miscellaneous Notes Associated Problem(s): Localized edema After flight to [place] has noticed RLE pedal edema and calf pain. Will get USN to rule out DVT documented in this encounter [facility] Work Phone: 11-03-2024 History of Presen t illness Narrative Subjective: Genny Brewer is a 84 y.o. female with hypertension. [...] home. Otherwise, she just recently traveled to [place] and has noted some right pedal edema, [...] pulses. No open wounds. Recent travel to [place]. Plan: Through informed decision making process incorporating [...] contact the office if new symptoms arise. REDUCING SYSTEM OPERATOR as scheduled Vanessa Dave MSN, WOODY-UNLOADER OPERATOR, PMHNP-[facility] [place], [place] Please excuse any errors in grammar or translation related to this dictation. Voice recognition software was utilized to prepare this document. documented in this encounter [facility] Work Phone: 11-03-2024 Instructions ROLAND Becerril [...] contact the office if new symptoms arise. REDUCING SYSTEM OPERATOR as scheduled documented in this encounter [facility] Work Phone: 09-30-2024 Evaluation + Plan [...] we will transition Lopressor over to carvedilol. [facility] Work Phone: 09-30-2024 Miscellaneous Notes Associated [...] over to carvedilol. documented in this encounter [facility] Work Phone: 09-30-2024 Evaluation + Plan note Associated Problem(s): BMI 26.0-26.9,adult Reviewed the merits of healthy lifestyle choices on overall cardiovascular health. [facility] Work Phone: 09-30-2024 Evaluation + Plan note Associated Problem(s): Essential hypertension Her dose of Lopressor was down titrated due to fatigability. Blood pressure is borderline in the office. She was noted to have improvement in fatigue with down titration of Lopressor, will discontinue and transitioned over to carvedilol. T [facility] Work Phone: 09-29-2024 History of Presen [...] contact the office if new symptoms arise. REDUCING SYSTEM OPERATOR one month Vanessa Dave MSN, SIGN POSTER-UNLOADER OPERATOR, PMHNP-[facility] [place], [place] Please excuse any errors in grammar or translation related to this dictation. Voice recognition software was utilized to prepare this document. documented in this encounter [facility] Work Phone: 09-29-2024 Instructions ROLAND Becerril [...] contact the office if new symptoms arise. REDUCING SYSTEM OPERATOR one month documented in this encounter [facility] Work Phone: 08-19-2024 Evaluation note Diagnosis Onset Date Resolution Cervical spondylosis acute August 19, 2024 1:30pm Neck pain acute August 19, 2024 1:30pm Seborrheic dermatitis acute August 19, 2024 1:30pm Lung nodule acute September 29 1:13pm Cervical spondylosis with radiculopathy acute November 04, 2024 1:56pm Neck pain acute November 04, 2 025 1:56pm [facility] [facility] Work Phone: [phone] Evaluation + Plan note* Assessment & Plan [...] in from the parking lot without concerns. [facility] Work Phone: [phone] Evaluation + Plan note* Assessment & Plan Note - ROLAND Becerril - 08/06/2024 9:41 AM EDTAssociated Problem(s): Fatigue Presents to the office today with complaints of ongoing fatigability and having no energy . Symptoms started close to 4 weeks ago. Her prior angina symptom was a strange chest sensation and she denies any reoccurrence. [facility] Work Phone: [phone] 434-953105-15-2025 Miscellaneous Notes* Assessment & Plan Note - [...] disease) Oct 26, 2024 Inferior STEMI pRCA PCI/Pownal 4 x 18 mm mLAD mild intramyocardial bridging O/p Diag 75% small/moderate vessel OM none EF 60% documented in this [facility] Work Phone: [phone]) 823-917305-15-2025 Evaluation + Plan note* Assessment & Plan Note - ROLAND Becerril - 08/06/2024 9:40 AM EDTAssociated Problem(s): BMI 27.0-27.9,adult Reviewed the merits of healthy lifestyle choices on overall cardiovascular health. [facility] Work Phone: [phone]) 561-467305-15-2025 Evaluation + Plan note* Assessment & Plan Note - ROLAND Becerril - 08/06/2024 9:40 AM EDTAssociated Problem(s): Essential hypertension Optimal in office [facility] Work Phone: [phone] 608-205505-15-2025 Evaluation + Plan note* Assessment & Plan Note - ROLAND Becerril - 08/06/2024 9:40 AM EDTAssociated Problem(s): Hyperlipidemia High intensity statin [facility] Work Phone: [phone] 220-612605-15-2025 Evaluation + Plan note* Assessment & Plan Note - ROLAND Becerril - 08/06/2024 9:40 AM EDTAssociated Problem(s): CAD (coronary artery disease) Oct 26, 2024 Inferior STEMI pRCA PCI/Pedro 4 x 18 mm mLAD mild intramyocardial bridging O/p Diag 75% small/moderate vessel OM none EF 60% [facility] Work Phone: [phone] 601-781305-14-2025 History of Present illness Narrative* ROLAND Becerril [...] her angina symptom on the day of ND was just a strange sensation, denies any [...] contact the office if new symptoms arise. REDUCING SYSTEM OPERATOR one month Vanessa Dave MSN, SIGN POSTER-UNLOADER OPERATOR, PMHNP-[facility] [place], [place] Please excuse any errors in grammar or translation related to this dictation. Voice recognition software was utilized to prepare this document. [facility]: [phone]) 587-169805-14-2025 Instructions* Patient Instructions* ROLAND Becerril - 08/05/2024 [...] contact the office if new symptoms arise. REDUCING SYSTEM OPERATOR one month [facility]: [phone] 290-297504-28-2025 Evaluation note* Diagnosis Onset Date Resolution Status Admit Date Diarrhea acute July 20 10:57am Gastroesophageal reflux dise ase with esophagitis without hemorrhage acute July 20, 2024 10:57am History of colon cancer acute A pril 2024 10:57am IBS (irritable bowel syndrome) acute July 20, 2024 10:57am Intermittent abdominal pain acute July 20, 2024 10:57am [facility] Work Phone: [phone]) 435-187104-28-2025 Evaluation note* Diagnosis Onset Date Resolution Status [...] Seborrheic dermatitis acute August 19, 2024 1:30pm [facility] Work Phone: [phone] Evaluation note* Diagnosis Onset Date Resolution Status Admit Date Diarrhea acute July 20 10:57am Gastroesophageal reflux dise ase with esophagitis without hemorrhage acute July 20, 2024 10:57am History of colon cancer acute A 2024 10:57am IBS (irritable bowel syndrome) acute July 20, 2024 10:57am Intermittent abdominal pain acute July 20, 2024 10:57am Cervical spondylosis acute August 19, 2024 1:30pm Neck pain acute August 19, 2024 1:30pm Seborrheic dermatitis acute August 19, 2024 1:30pm Lung nodule acute September 29 1:13pm [facility] Work Phone: [phone]) 431-464403-05-2025 History of Present illness Narrative* Inderjit Saenz DO - 05/27/2024 10:50 AM EST Subjective Genny Brewer is a 83 y.o. female Chief Complaint Follow-up; Coronary Artery Disease 83-year-old female returns for follow-up she is doing very well, she has traveled to [place] in [place] and is getting in 12,000 steps daily. [...] type, unspecified whether angina present, unspecified whether lumbee or transplanted heart Follow Up In Cardiology [...] exam, discussion and plan. documented in this [facility] Work Phone: 1([phone]) 518-680803-05-2025 Instructions* Patient Instructions* Jacque Quesada RN - [...] Provided instructions on exercise. documented in this [facility] Work Phone: 1([phone]) [phone] Evaluation note* Diagnosis Onset Date Resolution Status Admit Date Lung nodule acute April 1:24pm Rotator cuff arthropathy of right shoulder acute May 12 1:24pm Right shoulder pain noneactive Febru jaron2024 1:24pm Diarrhea acute July 20 10:57am Gastroesophageal reflux disease with esophagitis without hemorrhage acute July 20 025 10:57am History of colon cancer acute A pril 2024 10:57am IBS (irritable bowel syndrome) acute July 20, 2024 10:57am Intermittent abdominal pain acute July 20, 2024 10:57am [facility] Work Phone: [phone] Evaluation note* Diagnosis Onset Date Resolution Status [...] with esophagitis without hemorrhage acute March 11 2 024 1:00pm History of colon cancer acute D ecember 2023 1:00pm History of colon resection acute March 11, 2024 1:00pm IBS (irritable bowel syndrome) acute March 11, 2024 1:00pm Intermittent abdominal pain acute March 11, 2024 1:00pm Abnormal CT scan of lung acute March 12, 2024 10:33am Lung nodule acute April 1:24pm Rotator cuff arthropathy of right shoulder acute May 12, 2 025 1:24pm Right shoulder pain noneactive Febru jaron 2024 1:24pm [facility] Work Phone: [phone] History of Present illness Narrative* Inderjit Saenz, [...] type, unspecified whether angina present, unspecified whether lumbee or transplanted heart 8. Former smoker 9. BMI 27.0-27.9,adult Scribe Attestation By signing my name below, I, Jacque Foreman RN , Scribe attest that this documentation has been prepared under the direction and in the presence of Blanche Sanez DO. Provider Attestation - Scribe documentation All medical record entries made by the Scribe were at my direction and personally dictated by me. Ihave reviewed the chart and agree that the record accurately reflects my personal performance of the history, physical exam, discussion and plan. [facility]: 1([phone]) 222-517709-27-2024 Instructions* Patient Instructions* Jacque Quesada RN - [...] pill each day after. documented in this [facility] Work Phone: 1([phone]) 739-663908-15-2024 History of Present illness Narrative* Inderjit Saenz, DO - 11/07/2023 9:40 AM EDT Subjective Genny Brewer is a [...] type, unspecified whether angina present, unspecified whether lumbee or transplanted heart 2. History of PTCA [...] exam, discussion and plan. [facility]: [phone]) 581-764108-15-2024 Instructions* Patient Instructions* Kacy Norris LPN - [...] instructions on dietary changes. documented in this [facility] Work Phone: 1([phone]) 356-886208-05-2024 Consult note Author Sobia Okeefe [facility] October 28, 2023 8:55pm Note Date/Time October 28, 2023 8:5 5pm [facility] [address] [place] [address] Pulmonology Consult Note Signed Patient: Genny Brewer MR#: [id number] 3012 : 1940 Acct:[id number] Age/Sex: 83 / F Adm Date: 4 Loc: Room: [address] [place] [address] Type: ADM IN Attending Dr: Reji Saenz DO Copies to: DO Reji Soni, DO Sobia Okeefe MD~ HPI Date/Time of [...] an inferior STEMI, emergently brought to the semiconductor lab technician and found to have RCA with 99% stenosis, s/p PCI, did well was transferred to ICU without needing intubation or hemodynamic support. Currently on RA, on ASA, Brilinta, BB, statin, ROBIN. Review of Systems Constitutional Constitutional: Reports as per HPI Cardiovascular Cardiovascular: Reports as per HPI and Reports chest pain at rest [facility] Medical History Lung nodule CT: 1.7cm nodule [...] <Electronically signed by Sobia Okeefe MD> 10/28/232054 [facility] Work Phone: 1([phone]) [phone] Progress note Author Reji Saenz [facility] October 28, 2023 11:54am Note Date/Time October 28, 2023 11: 54am [facility] [address] [place] [address] Cardiology Progress Note Signed Patient: Genny Brewer MR#: [id number] 3012 : 1940 Acct:[id number] Age/Sex: 83 / F Adm Date: 4 Loc: Room: [address] [place] [address] Type: ADM IN Attending Dr: Reji Saenz [...] administered under my direction, patient arrived in [facility] Services [facility] at 1756 and underwent primary PCI [...] critical care time were devoted to ER staff,Medical Staff Services Manager staff, nursing staff, patient and family [...] 10/28/23 10:00 10/28/23 10:00 10/28/23 10:00 10/28/23 10:00 10/28/23 10:00 Const General: [...] Labs: Laboratory Results - last 24 hr 0810/27/23 10/27/23 17:20 19:51 22:19 Corrected WBC 8.6 Uncorrected WBC Count 8.6 RBC 4.45 Hgb 14.5 Hct 42.6 MCV 95.7 MCH 32.6 MCHC 34.1 RDW 14.0 Plt Count 294 MPV 7.7 Neut % (Auto) 63.6 Lymph % (Auto) 25.7 [place] % (Auto) 8.7 Eos % (Auto) 0.7 Baso % (Auto) 1.3 Nucleat RBC Rel Count 0.1 Neut # (Auto) 5.5 Lymph # (Auto) 2.2 [place] # (Auto) 0.7 Eos # (Auto) 0.1 [...] Troponin I High Sens 10.2 6295.7 H* 33682.3 H* B-Natriuretic Peptide 124.0 H Total Protein [...] % (Auto) 68.0 Lymph % (Auto) 20.4 [place] % (Auto) 10.2 Eos % (Auto) 0.5 Baso % (Auto) 0.9 Nucleat RBC Rel Count 0.1 Neut # (Auto) 5.7 Lymph # (Auto) 1.7 [place] # (Auto) 0.9 H Eos # (Auto) [...] Total Creatine Kinase Troponin I High Sens 07087.9 H* 67981.0 H* 97369.4 H* B-Natriuretic Peptide Total Protein Albumin Globulin [...] signed by Reji Saenz DO> 10/28/23 1154 [facility] Work Phone: 1([phone]) 180-259108-04-2024 History and physical note Author Reji Saenz [facility] October 27, 2023 6:21pm Note Date/Time October 27, 2023 5:5 1pm [facility] [address] [place] [address] Cardiology H&P Signed Patient: Genny Brewer MR#: [id number] 3012 : 1940 Acct:[id number] Age/Sex: 83 / F Adm Date: 4 Loc: Room: Type: [facility] Attending Dr: Reji Saenz DO Copies [...] administered under my direction, patient arrived in Medical Staff Services Manager at 1756 and underwent primary PCI [...] critical care time were devoted to ER staff,Medical Staff Services Manager staff, nursing staff, patient and family both pre and post procedurally. Review of Systems Review of Systems All other systems reviewed & are negative unless noted below or in HPI Constitutional Constitutional: Reports as per HPI Cardiovascular Cardiovascular: Reports as per HPI and Reports chest pain at rest [facility] Medical History Lung nodule CT: 1.7cm nodule [...] x10E3/uL Lymph # (Auto) 2.2 (1.00-4.8) x10E3/uL [place] # (Auto) 0.7 (0.0-0.8) x10E3/uL Eos # [...] results cardiology: sinus rhythm EKG shows: bradycardia ND, pacemaker, normal Myocardial infarction: inferior ND (acute or recent) A&P - Cardiology (1) ST elevation myocardial infarction (STEMI) of inferior wall: Code(s): I21.19 - ST elevation (STEMI) myocardial infarction involving other coronary artery of inferior wall Plan Proceed with emergency cath and PCI Documented By: Reji Saenz DO 10/27/23 1750 Signed By: <Electronically signed by Reji Saenz DO> 10/27/23 1821 [facility] Work Phone: 1([phone]) 418-929508-04-2024 [facility]-30-[facility] Evaluation note* Encounter Date Diagnosis Assessment Notes Treatment Notes Treatment Clinical Notes Mar, Primary hypertension (ICD-10 - I10) [facility] Other 01-29-2024 Evaluation note* Encounter Date Diagnosis Assessment Notes Treatment Notes Treatment Clinical Notes Mar, Lung nodule (ICD-10 - R91.1) [facility] Other 01-24-2024 Evaluation note* Encounter Date Diagnosis Assessment Notes Treatment Notes Treatment Clinical Notes Mar, Lung mass (ICD-10 - R91.8) [facility] Other 01-19-2024 Evaluation note* Encounter Date Diagnosis Assessment Notes Treatment Notes Treatment Clinical Notes Mar, Fall, initial encounter (ICD-10 - W19.XXXA) She denies CP, DASILVA, palpitations or lightheadedness Tripped over her shoe laces Fall precautions Mar, Right arm pain (ICD-10 - M79.601) Not sure how she landed. Ice, heat Mar, Contusion of right upper extremity, initial encounter (ICD-10 - S40.021A) [facility] Other 01-15-2024 Evaluation note* Encounter Date Diagnosis Assessment Notes Treatment Notes Treatment Clinical Notes Mar, Left lower quadrant abdominal pain (ICD-10 - R10.32) Mar, Diarrhea, unspecified type (ICD-10 - R19.7) [facility] Other 01-08-2024 Evaluation note* Encounter Date Diagnosis Assessment Notes Treatment Notes Treatment Clinical Notes Mar, Irritable bowel syndrome without diarrhea (ICD-10 - K58.9) [facility] Other 01-02-2024 Evaluation note* Encounter Date Diagnosis [...] would refer for colonoscopy to exclude colitis [facility] Other 12-21-2023 Evaluation note* Encounter Date Diagnosis Assessment Notes Treatment Notes Treatment Clinical Notes Feb, Gastroesophageal ref lux disease with esophagitis without hemorrhage (ICD-10 - K21.00) [facility] Other 11-28-2023 Evaluation note* Encounter Date Diagnosis Assessment Notes Treatment Notes Treatment Clinical Notes Jan, Dysuria (ICD-10 - R30.0) [facility] Other 11-17-2023 Evaluation note* Encounter Date Diagnosis [...] patient on monthly SBE and yearly mammograms. [facility] Other 06-29-2023 Evaluation note* Encounter Date Diagnosis Assessment Notes Treatment Notes Treatment Clinical Notes Aug, Primary hypertension (ICD-10 - I10) [facility] Other 06-05-2023 Evaluation note* Encounter Date Diagnosis [...] best 2/3 readings w/ goal < 135-85 [facility] Other 06-02-2023 Evaluation note* Encounter Date Diagnosis Assessment Notes Treatment Notes Treatment Clinical Notes Aug, Dysuria (ICD-10 - R30.0) [facility] Other 04-17-2023 Evaluation note* Encounter Date Diagnosis Assessment Notes Treatment Notes Treatment Clinical Notes Jun, Primary hypertension (ICD-10 - I10) This patient is instructed to consume a healthy, low-fat, low-salt diet. They are also encouraged to continue exercise to achieve/maintain a normal BMI. Jun, Nicotine dependence, cigarettes, in remission (ICD-10 - F17.211) Continue abstinence [facility] Other 03-21-2023 Evaluation note* Encounter Date Diagnosis Assessment Notes Treatment Notes Treatment Clinical Notes May, Primary hypertension (ICD-10 - I10) [facility] Other 03-20-2023 Evaluation note* Encounter Date Diagnosis Assessment Notes Treatment Notes Treatment Clinical Notes May, Primary hypertension (ICD-10 - I10) [facility] Other 02-28-2023 Evaluation note* Encounter Date Diagnosis Assessment Notes Treatment Notes Treatment Clinical Notes Apr, Primary hypertension (ICD-10 - I10) [facility] Other 02-27-2023 Evaluation note* Encounter Date Diagnosis [...] - F17.211) Continue abstinence Apr, Other REo [facility] Other 02-27-2023 History of Present illness Narrative* Sudheer Haro MD - 05/21/2022 10:00 AM EST Images from the original note were not included. EMERGENCY TRIAGE, TREAT AND TRANSPORT (ET3) DOCUMENTATION OF TELEHEALTH VISIT Date / Time: 05/21/2022944 Name: Genny Brewer : 1940 SSN: (Not on file) EMS Agency: [facility] [x] Verbal consent obtained [] Implied [...] the typically is not available at a [place] primary care physician's office.Patient declined using ambulance go to the ER, and her daughter who was present on scene will driveher the 4 minutes will take to get to the [place] ER. I advised her to call 911 [...] by: Sudheer Haro MD documented in this [id number] Evaluation note* Encounter Date Diagnosis Assessment Notes Treatment Notes Treatment Clinical Notes Apr, Nausea (ICD-10 - R11.0) [facility] Other Discharge summary Author Reji Saenz [facility] October 29, 2023 3:50pm Note Date/Time October 29, 2023 3:4 8pm [facility] [address] [place] [address] Discharge Summary Signed Patient: Genny Brewer MR#: [id number] 3012 : 1940 Acct:[id number] Age/Sex: 83 / F Adm Date: 4 Loc: Room: [address] [place] [address]: Reji Saenz DO Copies to: [...] proximal RCA with 4 x 18 mm Pownal stent 5. Preserved LV function 6. Essential hypertension Summary Hospital Course Hospital course: 83-year-old female presented with acute inferior ST elevation ND on Friday, October 27, 2023 and underwent rapid revascularization of the proximal RCA with large 4 mm drug-eluting stent within 60 minutes. LV function is preserved. Shedoes have small vessel diagonal branch disease that is going to be treated conservatively. She had no postoperative for post ND complications, arrhythmia,heart failure or recurrent angina. She will be discharged this afternoon, currently on aspirin 81 daily, [id number] twice daily, metoprolol 25 twice daily, losartan [...] Closure Device Placement 0 - W Celestino Saenz, p CL [facility] Angio - [...] doctor or pharmacist, without first calling the butcher supervisor who implanted the stent. If you require [...] weight lifting, stair steppers, etc. until the butcher supervisor approves these activities. Check with the butcher supervisor on your first follow-up visit. CALL YOUR BUILDING RENTAL MANAGER: -If bleeding should occur from the catheter insertion site- apply pressure to the site then immediately call us. -Report any fever, redness, drainage, increased swelling, or firmness at the catheter insertion site. Some bruising or slight swelling may be present at thetime of discharge. -Should arm or leg become cold, numb, white, or blue, contact the butcher supervisor immediately. -IF you should experience episodes of [...] Cardiopulmonary Rehabilitation program is recommended. The attending butcher supervisor or a nurse clinician should provide you with specificinstructions regarding activity, diet, medications, and further follow up for you. Follow the medication instructions provided on your discharge. If the dosages and instructions on this sheet differ from the dosage and instructions on the bottle, follow the instructions on the bottle. [facility] is not responsible for incorrect prescription [...] % (Auto) 73.5, Lymph % (Auto) 15.8, [place] % (Auto) 9.4, Eos % (Auto) 0.6, Baso % (Auto) 0.7, Nucleat RBC Rel Count 0.1, Neut # (Auto) 5.9, Lymph # (Auto) 1.3, [place] # (Auto) 0.8, Eos # (Auto) 0.0, Baso # (Auto) 0.1, PHA Creatinine Clear 41.47, Sodium 138, Potassium 4.0, Chloride 109 H, Carbon Dioxide 24.3, Anion Gap 8.7, BUN 17, Creatinine 0.91, Est GFR (CKD-EPI) > 60.0, Glucose 105 H, Calcium 9.3 Documented By: Reji Saenz DO 10/29/23 1543 Signed By: <Electronically signed by Reji Saenz DO> 10/29/23 1550 [facility] Work Phone: Evaluation note* Diagnosis Hypertensive urgency- Primary [facility] Other Evaluation noteNo assessment information available [facility] Work Phone: Evaluation note* Diagnosis Onset Date Resolution Status Change in bowel habits acute Primary hypertension acute Rotator cuff arthropathy of right shoulder acute Hx of malignant neoplasm of colon noneactive Pain in right shoulder nonea ctive [facility] Work Phone: Evaluation note* Diagnosis Onset Date Resolution Status Change in bowel habits acute Primary hypertension acute Rotator cuff arthropathy of right shoulder acute Hx of malignant neoplasm of colon noneactive Pain in right shoulder nonea ctive Primary hypertension acute Rotator cuff arthropathy of right shoulder acute Pain in right shoulder nonea ctive Change in bowel habits acute [facility] Work Phone: Evaluation note* Diagnosis Onset Date Resolution Status ST elevation myocardial infa rction (STEMI) of inferior wall acute [facility] Work Phone: Evaluation note* Diagnosis Onset Date Resolution Status ASHD (arteriosclerotic heart disease) acute Hypercholesterolemia acute Lung nodule acute Medication side effects acut e Nicotine addiction acute Primary hypertension acute Shortness of breath acute [facility] Work Phone: Evaluation note* Diagnosis Onset Date Resolution Status ASHD (arteriosclerotic heart disease) acute Hypercholesterolemia acute IBS (irritable bowel syndrome) acute Lung nodule acute Nicotine addiction acute Primary hypertension acute ASHD (arteriosclerotic heart disease) acute Hypercholesterolemia acute IBS (irritable bowel syndrome) acute Primary hypertension acute [facility] Work Phone: Evaluation note* Diagnosis Onset [...] bowel syndrome) acute Intermittent abdominal pain acute [facility] Work Phone: Evaluation note* Diagnosis Coronary artery disease, unspecified vessel or lesion type, unspecified whether angina present, unspecified whether lumbee or transplanted heart History of PTCA Postsurgical percutaneous transluminal coronary angioplasty status History of ST elevation myocardial infarction (STEMI) Shortness of breath Former smoker Personal history of tobacco use, presenting hazards to health BMI 26.0-26.9,adult Hyperlipidemia, unspecified hyperlipidemia type documented in this encounter [facility] Work Phone: Evaluation note* Diagnosis Near syncope Fatigue, unspecified type History of PTCA Postsurgical percutaneous transluminal coronary angioplasty status Essential hypertension Unspecified essential hypertension History of ST elevation myocardial infarction (STEMI) Shortness of breath Coronary artery disease, unspecified vessel or lesion type, unspecified whether angina present, unspecified whether lumbee or transplanted heart Former smoker Personal history of tobacco use, presenting hazards to health BMI 27.0-27.9,adult documented in this encounter [facility] Work Phone: Evaluation note* Diagnosis Coronary artery disease, unspecified vessel or lesion type, unspecified whether angina present, unspecified whether lumbee or transplanted heart History of ST elevation myocardial infarction (STEMI) History of PTCA Postsurgical percutaneous transluminal coronary angioplasty status Hyperlipidemia, unspecified hyperlipidemia type Essential hypertension Unspecified essential hypertension BMI 27.0-27.9,adult Former smoker Personal history of tobacco use, presenting hazards to health documented in this encounter [facility] Work Phone: Evaluation note* Diagnosis Hyperlipidemia, unspecified hyperlipidemia type- Primary Coronary artery disease, unspecified vessel or lesion type, unspecified whether angina present, unspecified whether lumbee or transplanted heart History of ST elevation myocardial infarction (STEMI) Essential hypertension Unspecified essential hypertension BMI 27.0-27.9,adult Fatigue, unspecified type Shortness of breath documented in this encounter [facility] Work Phone: Evaluation note* Diagnosis Hyperlipidemia, unspecified hyperlipidemia type- Primary Coronary artery disease, unspecified vessel or lesion type, unspecified whether angina present, unspecified whether lumbee or transplanted heart History of ST elevation myocardial infarction (STEMI) Essential hypertension Unspecified essential hypertension BMI 27.0-27.9,adult Fatigue, unspecified type Shortness of breath Essential hypertension- Primary Unspecified essential hypertension Fatigue, unspecified type BMI 26.0-26.9,adult documented [facility] this [facility] [facility] Work Phone: Evaluation note* Diagnosis Hyperlipidemia, unspecified hyperlipidemia type- Primary Coronary artery disease, unspecified vessel or lesion type, unspecified whether angina present, unspecified whether lumbee or transplanted heart History of ST elevation myocardial infarction (STEMI) Essential hypertension Unspecified essential hypertension BMI 27.0-27.9,adult Fatigue, unspecified type Shortness of breath Essential hypertension- Primary Unspecified essential hypertension Fatigue, unspecified type BMI 26.0-26.9,adult BMI 27.0-27.9,adult- Primary Essential hypertension Unspecified essential hypertension Localized edema Edema documented in this encounter [facility] Work Phone: History and physical note Author Reji Saenz [facility] October 27, 2023 6:21pm Note Date/Time October 27, 2023 5:5 1pm [facility] [address] [place] [address] Cardiology H&P Signed Patient: Genny Brewer MR#: [id number] : 1940 Acct:[id number] Age/Sex: 83 / F Adm Date: 4 Loc: Room: Type: [facility] Attending Dr: Reji Saenz DO Copies [...] administered under my direction, patient arrived in Medical Staff Services Manager at 1756 and underwent primary PCI [...] critical care time were devoted to ER staff,Medical Staff Services Manager staff, nursing staff, patient and family both pre and post procedurally. Review of Systems Review of Systems All other systems reviewed & are negative unless noted below or in HPI Constitutional Constitutional: Reports as per HPI Cardiovascular Cardiovascular: Reports as per HPI and Reports chest pain at rest [facility] Medical History Lung nodule CT: 1.7cm nodule [...] x10E3/uL Lymph # (Auto) 2.2 (1.00-4.8) x10E3/uL [place] # (Auto) 0.7 (0.0-0.8) x10E3/uL Eos # [...] results cardiology: sinus rhythm EKG shows: bradycardia ND, pacemaker, normal Myocardial infarction: inferior ND (acute or recent) A&P - Cardiology (1) ST elevation myocardial infarction (STEMI) of inferior wall: Code(s): I21.19 - ST elevation (STEMI) myocardial infarction involving other coronary artery of inferior wall Plan Proceed with emergency cath and PCI Documented By: Reji Saenz DO 10/27/23 1750 Signed By: <Electronically signed by Reji Saenz DO> 10/27/23 1821 [facility] Work Phone: History general Narrative [...] History CYSTOSCOPY Hospitalization History SEE SURGICAL HX [place] Other Hospital Discharge instructions Additional Instructions We evaluated you for your shortness of breath. We discussed this is most likely due to your Brilinta. 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 Please follow close with your primary care doctor as well. Please return to the emergency department if you develop any worsening or concerning symptoms.[facility] Work Phone: Reason for referral (narrative)* Consultation (Routine) - Authorized Specialty Diagnoses / Procedures Referred By Jamel t Referred To Contact Cardiology Diagnoses Coronary artery disease, unspecified vessel or lesion type, unspecified whether angina present, unspecified whether lumbee or transplanted heart Procedures Follow Up In Cardiology Inderjit Saenz DO [address] [facility] [address], [address] [address] Inderjit Saenz DO [address] [facility] [address], [address] [address] Referral ID Status Reason Start Date Expiration Date V isits Requested Visits Authorized [id number] Authorized 11/07/2023 11/06/2024 1 1 * Consultation (Routine) - Authorized Specialty Diagnoses / Procedures Referred By Jamel t Referred To Contact Cardiac Rehabilitation Diagnoses Coronary artery disease, unspecified vessel or lesion type, unspecified whether angina present, unspecified whether lumbee or transplanted heart History of PTCA History of ST elevation myocardial infarction (STEMI) Inderjit Saenz DO [address] [facility] [address], [address] [address] Referral ID Status Reason Start Date Expiration Date Visits Requested Visits Authorized [id number] Authorized Specialty Services Required 11/07/2023 11/06/2024 1 1 Scheduling Instructions Julius [facility] Work Phone: Reason for referral (narrative)No reason for referral [facility]: Summary Purpose Family History [...] Advance Directives No July 18 024 2:08pm Advance Directive Response Recorded Date/ Time [...] 1:00pm History of colon cancer March 11, 024 1:00pm History of colon resection February [...] ECG 12 Lead Inderjit Saenz, DO [address] [facility], [address] [address] Referral ID Status Reason Start Date Expiration Date V isits Requested Visits Authorized [id number] Authorized 12/20/2023 12/19/2024 1 1 Additional Source Comments Reason for Visit (unrecogniz ed section and content) Reason Comments Headache Hypertension Reason Comments TCM ND on 10/27/23 at [facility] Reason Comments Follow-up Dyspnea, near syncop e, med concerns Specialty Diagnoses / Procedures Referred By Contac t Referred To Contact Diagnoses Near syncope Fatigue, unspecified type Procedures ECG 12 Lead Inderjit Saenz, [address] [facility] [address], [address] [address] Referral ID Status Reason Start Date Expiration Date V isits Requested Visits Authorized [id number] Authorized 12/20/2023 12/19/2024 1 1 Reason Comments Follow-up 6m Coronary Artery Disease Specialty Diagnoses / Procedures Referred By Contac t Referred To Contact Cardiology Diagnoses Coronary artery disease, unspecified vessel or lesion type, unspecified whether angina present, unspecified whether lumbee or transplanted heart Procedures Follow Up In Cardiology Inderjit Saenz, DO [address] [facility] [address], [address] [address] Phone: tel: fax: Inderjit Saenz, DO [address] [facility] [facility], [address] [address] Phone: tel: fax: Referral ID Status Reason Start Date Expiration Date V isits Requested Visits Authorized [id number] Pending Review 11/07/2023 11/06/2024 1 1 Reason Comments Follow-up Shortness of breath, fatigue Reason Comments Follow-up 1 months Coronary ar shira disease, unspecified vessel or lesion type, unspecified whether angina present, unspecified whether lumbee or transplanted heart Specialty Diagnoses / Procedures Referred By Contac t Referred To Contact Cardiology Diagnoses Fatigue, unspecified type Procedures Follow Up In Cardiology Vanessa Dave, SIGN POSTER-UNLOADER OPERATOR [address], [address] [place] [address] Phone: tel: fax: Referral ID Status Reason Start Date Expiration Date V isits Requested Visits Authorized [id number] Authorized 08/05/2024 08/05/2025 1 1 Reason Comments Follow-up 7 month Follow up fo r Hypertension Specialty Diagnoses / Procedures Referred By Contac t Referred To Contact Cardiology Diagnoses Essential hypertension Procedures Follow Up In Cardiology Vanessa Dave APRN-UNLOADER OPERATOR [address] [facility] 2, [facility] [address] [place] [address] Phone: tel: fax: Referral ID Status Reason Start Date Expiration Date V isits Requested Visits Authorized [id number] Authorized 09/29/2024 09/29/2025 1 1 INFORMATION SOURCE (unrecogn ized section and content) DATE CREATED AUTHOR 05/23/2022 [facility] DATE CREATED AUTHOR AUTHOR'S ORGANIZ ATION 05/25/2022 [facility] DATE CREATED AUTHOR AUTHOR'S ORGANIZ ATION 04/25/2023 [facility] EPIC DATE CREATED AUTHOR AUTHOR'S ORGANIZ ATION 10/07/2024 [facility] DATE CREATED AUTHOR AUTHOR'S ORGANIZ ATION 11/10/[address] [facility] [address] [employer] 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 [address] PCP - General Internal Medicine 11/07/23 Maura Andres, pest control chemical technicianPiece Goods Clerk 10/30/23 Hygiene Teacher Relationship Specialty Start Date End Date Branden Du DO [address] [place] [address] PCP - General Internal Medicine 11/07/23 Maura Andres RN Care Piece Goods Clerk 10/30/23 Hygiene Teacher Relationship Specialty Start Date End Date Branden Du DO [address] [place] [address] PCP - General Internal Medicine 11/07/23 Hygiene Teacher Relationship Specialty Start Date End Date Branden Du DO [address] [place] [address] PCP - General Internal Medicine 11/07/23 Team [...] September 29, 2024 End: September 29, 2024 Hygiene Teacher Relationship Specialty Start Date End Date Branden Du [address] [place] [address] PCP - General Internal Medicine 11/07/23 Team Status: Active Member Role Status Dates Branden Du DO Primary Care Provider Active Start: October 03, 2024 Laurie Mills MD Attending Provider Active Sta rt: October 03, 2024 Team Status: Inactive Member Role Status Dates Laurie Mills MD Attending Provider Active Sta rt: October 03, 2024 End: October 03, 2024 Hygiene Teacher Relationship Specialty Start Date End Date Branden Du DO [address] [place] [address] PCP - General Internal Medicine 11/07/23 Team [...] BE BASED ON THE PRIMARY CLINICAL RECORDS. [facility] [employer] [facility]. provides no warranty or guarantee of the accuracy or completeness of information in this document.
--- NOTE | 2024-11-16 16:38 | ED.GENADUL1 ---
HPI HPI - General Adult General Chief complaint: Abdominal Pain Stated complaint: Abdominal Pain Time Seen by Provider: 11/16/24 15:59 Source: patient and family Mode of arrival: walk-in Limitations: no limitations History of Present Illness HPI narrative: Patient is an 84-year-old female presenting to the emergency department for concerns of abdominal pain. Patient was sent in by her PCP for CT of her abdomen. The patient states that she had a fall approximately a week ago. She states she fractured her L1 vertebrae. Since the fall, she has been having worsening abdominal discomfort and distention. She states she has early satiety and issues fully emptying her bladder. She states she is on Plavix for previous STEMI. She also has a history of colon cancer s/p bowel resection and lysis of adhesions. She was never on chemo or radiation. She denies any nausea, vomiting, constipation. No fevers or chills. No chest pain or shortness of breath. Related Data Home Medications ?Medication ?Instructions ?Recorded ?Confirmed amlodipine 5 mg tablet 5 mg PO DAILY 10/03/24 11/16/24 aspirin 81 mg capsule 81 mg PO DAILY 10/03/24 11/16/24 atorvastatin 80 mg tablet 80 mg PO QPM 10/03/24 11/16/24 carvedilol 6.25 mg tablet 6.25 mg PO BID 10/03/24 11/16/24 clopidogrel 75 mg tablet 75 mg PO DAILY 10/03/24 11/16/24 dicyclomine 20 mg tablet 20 mg PO BID 10/03/24 11/16/24 losartan 50 mg tablet 50 mg PO BID 10/03/24 11/16/24 nitroglycerin 0.4 mg sublingual 0.4 mg buccal Q5M PRN chest pain 10/03/24 11/16/24 tablet omeprazole 40 mg capsule,delayed 40 mg PO DAILY PRN gerd 10/03/24 11/16/24 release prednisone 10 mg tablet 10 mg PO DAILY 11/07/24 11/16/24 Previous Rx's ?Medication ?Instructions ?Recorded acetaminophen 300 mg-codeine 30 mg 1 tab PO Q6H PRN pain 5 days #20 11/07/24 tablet tabs Allergies Allergy/AdvReac Type Severity Reaction Status Date / Time Penicillins Allergy Severe Hives Verified 11/16/24 16:11 Review of Systems ROS Status of ROS 10 or more systems reviewed and unremarkable except as noted in history and below [facility] Medical History (Updated 11/16/24 @ 19:03 by Manish Dejesus DO) High cholesterol ?E78.00 - Pure hypercholesterolemia, unspecified (ICD-10) HTN (hypertension) ?I10 - Essential (primary) hypertension (ICD-10) Heart attack ?I21.9 - Acute myocardial infarction, unspecified (ICD-10) IBS (irritable bowel syndrome) ?K58.9 - Irritable bowel syndrome, unspecified (ICD-10) Surgical History (Updated 10/03/24 @ 15:36 by Venita Alonso) H/O heart artery stent ?Z95.5 - Presence of coronary angioplasty implant and graft (ICD-10) Social History Little interest or pleasure in doing things: not at all Feeling down, depressed, or hopeless: not at all Exam Narrative Exam Narrative: CONSTITUTIONAL: Well-appearing, answering questions and following commands appropriately SKIN: Was warm and dry. EYES: No conjunctival pallor EARS, NOSE, THROAT: Moist mucosa RESPIRATORY: Clear to auscultation bilaterally, no wheezes, crackles, or stridor, no use of accessory muscles CARDIOVASCULAR: Normal rate and regular rhythm. There is no S3, S4, murmur, rub. GASTROINTESTINAL: Patient's abdomen is markedly distended with generalized tenderness to palpation. Normal bowel sounds. No rebound tenderness. No peritoneal signs. MUSCULOSKELETAL: There was no lower extremity edema, erythema, or tenderness. NEUROLOGIC: Patient is awake and alert. Facies were symmetrical. Constitutional Vital Signs, click to edit/add: Last Vital Signs Pulse 68 11/16/24 16:07 Resp 18 11/16/24 16:07 BP 152/93 H 11/16/24 16:07 Pulse Ox 98 11/16/24 16:07 O2 Del Method Room Air 11/16/24 16:07 Course Vital Signs Vital signs: Vital Signs Pulse Rate 68 11/16/24 16:07 Respiratory Rate 18 11/16/24 16:07 Blood Pressure 152/93 H 11/16/24 16:07 Pulse Oximetry 98 11/16/24 16:07 Oxygen Delivery Method Room Air 11/16/24 16:07 Pulse Rate 68 11/16/24 16:07 Respiratory Rate 18 11/16/24 16:07 Blood Pressure 152/93 H 11/16/24 16:07 Pulse Oximetry 98 11/16/24 16:07 Oxygen Delivery Method Room Air 11/16/24 16:07 Medical Decision Making MDM Narrative Medical decision making narrative: Patient is an 84-year-old female presenting to the emergency department s/p fall 1 week ago for worsening abdominal distention and pain. She is on Plavix, but no anticoagulation. Vital signs on arrival are within normal limits. She is afebrile and hemodynamically stable. Physical examination was notable for diffuse tenderness to palpation without peritoneal signs. Differential diagnosis includes hemoperitoneum from her recent fall, partial bowel obstruction, constipation, colitis, pancreatitis, or other intra-abdominal pathologies. IV was established and laboratory studies were obtained. CT abdomen with IV contrast was ordered. 12 Lead EKG: Normal sinus rhythm at a rate of 65. Normal axis. No ST segment elevations. QRS, GA, and QTc interval within normal limits. Incomplete right bundle branch block. Unchanged compared to prior EKG from 10/03/2024. Final impression: normal sinus rhythm without evidence of acute myocardial ischemia CT abdomen/pelvis independent reviewed and interpreted by myself and reviewed by radiology demonstrated severe constipation without evidence of bowel obstruction or acute intra-abdominal processes. Laboratory studies were unremarkable. No significant electrolyte or metabolic derangement. No evidence of acute kidney injury. No anemia, leukocytosis, or thrombocytopenia. No transaminitis or hyperbilirubinemia. Troponin nonelevated. No lactic acidosis. Urinalysis unremarkable. I do believe the patient is stable for discharge. Her presentation is consistent with severe constipation without evidence of obstruction. She is tolerating p.o. without vomiting. I provided the patient with a bowel regimen. I instructed her to take MiraLAX twice daily and daily senna/Colace until she achieves a normal bowel regimen. Instructed her to take a one-time dose of magnesium citrate when she gets home. I also recommended Dulcolax suppositories. She was instructed to drink plenty of fluids including water/electrolyte beverages to stay well-hydrated and to soften her stool. Return precautions were given including any new or concerning symptoms. She was instructed to follow-up with her family doctor for further care. Patient understands and agrees to the plan. FINAL IMPRESSION: #Acute constipation DISPOSITION: Discharged home CONDITION: Good Medical Records Medical records reviewed: Yes I reviewed the patient's medical records Lab Data Lab results reviewed: Yes I reviewed the patient's lab results Labs: Lab Results 11/16/24 11/16/24 Range/Units 17:00 17:14 WBC 9.3 (4.0-11.0) 10^3/uL RBC 4.26 (4.20-5.40) 10^6/uL Hgb 13.8 (12.0-16.0) g/dL Hct 41.7 (36.0-48.0) % MCV 97.9 (81.0-99.0) fL MCH 32.4 (26.7-34.0) pg MCHC 33.1 (29.9-35.2) g/dL RDW 13.9 (11.0-15.0) % Plt Count 277 (150-450) 10^3/uL MPV 9.2 L (9.5-13.5) fL Neut % (Auto) 81.4 H (43.0-75.0) % Lymph % (Auto) 11.2 L (20.5-60.0) % [place] % (Auto) 6.7 (1.7-12.0) % Eos % (Auto) 0.1 L (0.9-7.0) % Baso % (Auto) 0.2 (0.2-2.0) % Neut # (Auto) 7.6 H (1.4-6.5) 10^3/uL Lymph # (Auto) 1.1 L (1.2-3.8) 10^3/uL [place] # (Auto) 0.6 (0.3-0.8) 10^3/uL Eos # (Auto) 0.0 (0.0-0.7) 10^3/uL Baso # (Auto) 0.0 (0.0-0.1) 10^3/uL Abs Immat Gran (auto) 0.04 H (0.00-0.03) 10^3/uL Imm/Tot Granulo (auto) 0.4 (0.0-0.5) % PT 10.3 (9.0-11.6) sec INR 0.97 APTT 21.9 L (22.3-36.2) sec Sodium 140 (136-145) mmol/L Potassium 4.4 (3.5-5.1) mmol/L Chloride 103 (98-107) mmol/L Carbon Dioxide 26.7 (21.0-32.0) mmol/L Anion Gap 14.7 BUN 15.0 (7.0-18.0) mg/dL Creatinine 0.73 (0.55-1.02) mg/dL Est GFR ( Amer) >60 (>=60 mL/min/1.73m^2) Est GFR (Non-Af Amer) >60 (>=60 mL/min/1.73m^2) BUN/Creatinine Ratio 20.5 Glucose 118 H (74-106) mg/dL Lactate 1.4 (0.4-2.0) mmol/L Calcium 9.6 (8.5-10.1) mg/dL Magnesium 2.2 (1.8-2.4) mg/dL Total Bilirubin 0.5 (0.2-1.0) mg/dL AST 22 (15-37) U/L ALT 41 (14-59) U/L Alkaline Phosphatase 133 H (46-116) U/L Troponin I High Sens 5.7 (4.0-51.3) pg/mL Total Protein 7.4 (6.4-8.2) g/dL Albumin 3.6 (3.4-5.0) g/dL Globulin 3.8 g/dL Albumin/Globulin Ratio 0.9 Urine Color Lt. yellow (YELLOW) Urine Clarity Clear (CLEAR) Urine pH 6.0 (5.0-9.0) Ur Specific [place] 1.015 (1.005-1.025) Urine Protein Negative (NEG/TRACE) mg/dL Urine Glucose (UA) Negative (NEGATIVE) mg/dL Urine Ketones Negative (NEGATIVE) mg/dL Urine Occult Blood Trace-i (NEGATIVE) Urine Nitrite Negative (NEGATIVE) Urine Bilirubin Negative (NEGATIVE) Urine Urobilinogen 0.2 (0.2-1.0) EU/dL Ur Leukocyte Esterase Negative (NEGATIVE) Urine RBC 2-5 A (0-2) #/HPF Urine WBC 0-2 A (NONE SEEN) #/HPF Ur Squamous Epith Cells Rare (NONE/RARE) #/LPF Urine Crystals None seen (None Seen) #/HPF Urine Bacteria Trace A (NONE SEEN) #/HPF Urine Casts None seen (NONE SEEN) #/LPF Urine Mucus None seen (NONE SEEN) Blood Type A Positive Antibody Screen Negative Imaging Data CT scan - abdomen: Attestation: I personally reviewed and interpreted this imaging study as follows: Radiologist's impression: ITS Impressions Abdomen/Pelvis CT 11/16/24 18:12 IMPRESSION: No bowel obstruction or obstructive uropathy. No free fluid or free air. There is evidence of previous partial colectomy. There is a large amount stool within the colon suggesting constipation. 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 This is unchanged. Impression dictated by: Endy Crowley M.D. 11/16/2024 6:36 PM Dictation Location: [place] [address] Electronically authenticated by: [id number] Y Date: 11/16/2024 18:36 ECG Data Attestation: I personally reviewed and interpreted this ECG as follows: Discharge Plan Discharge Chief Complaint: Abdominal Pain Clinical Impression: Constipation Patient Disposition: Home, Self-Care Time of Disposition Decision: 19:03 Condition: Good Mode of Transportation: Private Vehicle Prescriptions / Home Meds: No Action amlodipine 5 mg tablet 5 mg PO DAILY atorvastatin 80 mg tablet 80 mg PO QPM carvedilol 6.25 mg tablet 6.25 mg PO BID clopidogrel 75 mg tablet 75 mg PO DAILY dicyclomine 20 mg tablet 20 mg PO BID losartan 50 mg tablet 50 mg PO BID omeprazole 40 mg capsule,delayed release(DR/EC) 40 mg PO DAILY PRN (Reason: gerd) aspirin 81 mg capsule 81 mg PO DAILY nitroglycerin 0.4 mg tablet, sublingual 0.4 mg buccal Q5M PRN (Reason: chest pain) prednisone 10 mg tablet 10 mg PO DAILY acetaminophen-codeine 300-30 mg tablet 1 tab PO Q6H PRN (Reason: pain) 5 Days Qty: 20 0RF Print Language: Azeri Instructions: Constipation (ED) Referrals: Branden Du DO [Primary Care Provider, Internal Medicine] - 1 week Discharge Date/Time: 11/16/24 19:28
[2024-11-16 17:27] LABS: Hematocrit 41.7 % (36.0-48.0); Hemoglobin 13.8 g/dL (12.0-16.0); Immature Granulocytes Abs Auto 0.04 10^3/uL (0.00-0.03); Immature Granulocytes Pct Auto 0.4 % (0.0-0.5); Lymphocytes Absolute Auto 1.1 10^3/uL (1.2-3.8); Mean Corpuscular HGB Conc 33.1 g/dL (29.9-35.2); Mean Corpuscular Hemoglobin 32.4 pg (26.7-34.0); Mean Corpuscular Volume 97.9 fL (81.0-99.0); Platelet Count 277 10^3/uL (150-450); Red Blood Count 4.26 10^6/uL (4.20-5.40); White Blood Count 9.3 10^3/uL (4.0-11.0)
[2024-11-16 17:38] LABS: Glucose Urine UA NEGATIVE (NEGATIVE)
[2024-11-16 17:47] LABS: Alanine Aminotransferase 41 U/L (14-59); Albumin Globulin Ratio 0.9; Albumin Level 3.6 g/dL (3.4-5.0); Alkaline Phosphatase 133 U/L (46-116); Anion Gap 14.7; Aspartate Amino Transferase 22 U/L (15-37); Blood Urea Nitrogen 15.0 mg/dL (7.0-18.0); Calcium 9.6 mg/dL (8.5-10.1); Carbon Dioxide 26.7 mmol/L (21.0-32.0); Chloride 103 mmol/L (98-107); Estimated GFR (African America >60 (>=60 mL/min/1.73m^2); Estimated GFR (Non-African Ame >60 (>=60 mL/min/1.73m^2); Globulin 3.8 g/dL; Glucose 118 mg/dL (74-106); Potassium 4.4 mmol/L (3.5-5.1); Sodium 140 mmol/L (136-145); Total Protein 7.4 g/dL (6.4-8.2)
[2024-11-16 17:51] LABS: Lactate/Lactic Acid 1.4 mmol/L (0.4-2.0)
[2024-11-16 17:54] LABS: INR 0.97; Partial Thromboplastin Time 21.9 sec (22.3-36.2); Prothrombin Time 10.3 sec (9.0-11.6)
[2024-11-16 18:12] LABS: Cast Seen? NONE SEEN #/LPF (NONE SEEN); Crystals Seen? None Seen #/HPF (None Seen)
--- NOTE | 2024-11-16 18:12 | CT_ITS ---
The [address] [address] Patient Name: EVER BREWER MRN: [id number] date: 1940 Sex: F Assigned Patient Location: ER Current Patient Location: ER Accession/Order Number: [id number] Exam Date: 11/16/2024 18:02 Report Date: 11/16/2024 18:36 At the request of: WESLY DIANA DO Procedure: CT abdomen pelvis w con CT abdomen pelvis w con 11/16/2024 6:13 PM SIGNS AND SYMPTOMS: Fall, persistent abdominal pain with urinary retention. TECHNIQUE: Multidetector ct axial images of the abdomen and pelvis were obtained with IV contrast. Multiplanar reformats were performed and reviewed to further define anatomy and possible pathology. CT was performed with one or more of the following dose reduction techniques: Automated exposure control, adjustment of the mA and/or kV according to patient size, or use of iterative reconstruction technique. COMPARISON: 04/17/2023 FINDINGS: Lower Chest: Atherosclerotic changes are present in the thoracic aorta and coronary arteries. Emphysematous changes are present. There is atelectasis in the lung bases. 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 ABDOMEN: Liver: The liver is hypoattenuating hepatic steatosis. There is a 2 cm hypoattenuating structure in the right hepatic lobe with peripheral enhancement suggesting a hemangioma. Bile Ducts: Normal caliber. Gallbladder: No calcified gallstones. Normal caliber wall. Pancreas: Within normal limits. Spleen: Within normal limits. Adrenals: Within normal limits. Kidneys: Simple cysts are noted in the renal cortices requiring no further follow-up. There is a 2 mm nonobstructing stone in the left renal collecting system requiring no further follow-up. Pelvis: Reproductive Organs: No pelvic masses. Ureters: Within normal limits. Bladder: Within normal limits. Bowel: There is evidence of previous partial colectomy. There is a normal appendix in the right lower quadrant. There is a large amount stool within the colon suggesting constipation. There is no evidence of bowel structure. Mesenteric Lymph Nodes: No enlarged mesenteric lymph nodes. Peritoneum: No ascites or free air, no fluid collection. Vessels: Atherosclerotic changes are noted in the abdominal aorta and its branches. Retroperitoneum: Within normal limits. 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 This is unchanged. Bones: Degenerative changes are noted in the thoracolumbar spine and hips. CT/CT abdomen pelvis w con IMPRESSION: No bowel obstruction or obstructive uropathy. No free fluid or free air. There is evidence of previous partial colectomy. There is a large amount stool within the colon suggesting constipation. 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 This is unchanged. Impression dictated by: Endy Crowley M.D. 11/16/2024 6:36 PM Dictation Location: [place] [address] Electronically authenticated by: [id number] Y Date: 11/16/2024 18:36
[2024-11-16 19:02] LABS: Magnesium 2.2 mg/dL (1.8-2.4)
== END 2024-11-16 19:28 | disposition home or self-care (01) ==
PROVIDERS: Emergency Provider Student in an Organized Health Care Education/Training Program; PCP Internal Medicine
DX: K59.00 Constipation, unspecified (principal); Z79.02 Long term (current) use of antithrombotics/antiplatelets; I25.2 Old myocardial infarction; Z85.038 Personal history of other malignant neoplasm of large intestine; Z90.49 Acquired absence of other specified parts of digestive tract; S32.019D Unspecified fracture of first lumbar vertebra, subsequent encounter for fracture with routine healing; W19.XXXD Unspecified fall, subsequent encounter; Z95.5 Presence of coronary angioplasty implant and graft
CPT/HCPCS: 36415; 74177; 80053; 81001; 83605; 83735; 84484; 85025; 85610; 85730; 86850; 86900; 86901; 93005; 99285; Q9967

== ENCOUNTER 2024-12-09 16:16 | Outpatient (OUT) | payer MEDICARE, SELFPAY ==
--- NOTE | 2024-12-09 16:19 | XR_ITS ---
[facility] [place] [id number] Patient Name: EVER BREWER MRN: [id number] date: 1940 Sex: F Assigned Patient Location: [facility] Current Patient Location: [facility] Accession/Order Number: [id number] Exam Date: 12/09/2024 16:22 Report Date: 12/09/2024 23:57 At the request of: MEGHA SANTANA CNP Procedure: XR abdomen 1V XR abdomen 1V 12/09/2024 4:45 PM SIGNS AND SYMPTOMS: ^IRRITABLE BOWEL SYNDROME, CONSTIPATION PROTOCOL: Frontal radiograph of the abdomen COMPARISON: 11/16/2024 FINDINGS: There is a moderate large amount stool throughout colon consistent with constipation. No bowel obstruction or free air. Degenerative changes are noted in the thoracolumbar spine and sacroiliac joints. XR/XR abdomen 1V IMPRESSION: There is a moderate large amount stool throughout colon consistent with constipation. This is similar to the prior exam. Impression dictated by: Endy Crowley M.D. 12/09/2024 11:57 PM Dictation Location: [place] [address] Electronically authenticated by: [id number] Y Date: 12/09/2024 23:57
== END 2024-12-09 16:17 | disposition home or self-care (01) ==
PROVIDERS: PCP Internal Medicine; Visit Provider Registered Nurse
DX: K58.0 Irritable bowel syndrome with diarrhea (principal); R10.9 Unspecified abdominal pain
CPT/HCPCS: 74018

== ENCOUNTER 2024-12-18 12:22 | Outpatient (OUT) | payer MEDICARE, SELFPAY ==
--- OUTSIDE RECORDS SUMMARY | 2024-12-18 12:29 | XMS_ITS | CCD ---
Author Organization [facility] CliniSyor Care Team Providers Care Production Tester Name Role Phone Unavailable Primary Care Provider [...] Care Provider DO Branden Du Attending Provider FLAKITA Álvarez Emergency Provider DO Branden Du Primary Care Provider DO Reji Frausto Admit Provider [phone] DO Reji Frausto Attending Provider MD Sobia Okeefe Other Provider DO Rona Andres Emergency Provider Dmitry NATION, Maura Unavailable Unavailable Branden Du DO Primary Care Provider Branden Du DO Primary Care Provider Aleshia LOZANO, Sylvester Lozano Attending Provider Vanessa Dave APRN Attending Provider [phone] Branden Du DO Attending Provider Maldonado LOZANO, Sobia Stanley Attending Provider Laurie Mills MD Attending Provider Branden Du DO Primary Care Provider RAJESH, VANESSA K Attending Unavailable DAVE, VANESSA K Referring Unavailable BALL, BRANDEN E Primary Care Unavailable JETT, INDERJIT S Attending Unavailable BALL, BRANDEN E Primary Care Unavailable JETT, INDERJIT S Attending Unavailable JETT, INDERJIT S Referring Unavailable BALL, BRANDEN E Primary Care Unavailable DAVE, VANESSA K Attending Unavailable BALL, BRANDEN E Primary Care Unavailable DAVE, VANESSA K Attending Unavailable DAVE, VANESSA K Referring Unavailable BALL, BRANDEN E Primary Care Unavailable Maura Perez CMA Attending Provider Unavaila ble Philly SEGAL, Branden Primary Care Provider [phone] Branden Du DO Attending Provider Justus Damon DO Attending Provider [phone] Roxane Granda APRN Attending Provider Trinity Obrien MD Emergency Provider Benjamin Elias MD Admit Provider Benjamin Elias MD Attending Provider [phone] Mendez Lambert MD Attending Provider Laurie Mills Attending Unavailable Laurie Mills Admitting Unavailable Benjamin Elias Admitting Unavailable Branden Du Primary Care Unavailable Mendez Lambert Attending Unavailable Shmuel Martinez APRN Attending Provider [phone] Allergies Allergy Classification Reported Allergen(s) Allergy Type Date of Onset Reaction(s) Facility (2 sources) Penicillins; Translations: [PENICILLINS] Drug allergy (disorder) 4 [facility] Repository (12 sources) Substance with penicillin structure and antibacterial mechanism of action (substance) Drug allergy 4 Unknown [place] acquired by [facility] Other (2 sources) Penicillins Propensity to adverse reactions 4 Unknown [facility] (3 sources) Penicillins Propensity to adverse reactions 4 Unknown [facility] (1 source) Penicillins Drug allergy (disorder) [facility] Repository Medications Current Medications Medication Drug Class(es) Dates Sig (Normalized) Sig (Original) amLODIPine 5 mg oral tablet (20 sources) Dihydropyridine Calcium Channel Fariha Start: 12-23-2023 End: 08-06-2024 take 1 tablet by mouth once daily Start: 12-20-2023 End: 12-23-2023 take 1 tablet [...] aspirin 81 mg delayed release oral tablet (20 sources) Platelet Aggregation Inhibitor, Nonsteroidal Anti-inflammatory Drug Start: 10-29-2023 take 1 tablet by mouth once daily atorvastatin 80 mg oral tablet (20 sources) HMG-CoA Reductase Inhibitor Start: 10-29-2023 take 1 tablet by mouth once daily in the evening carvedilol 6.25 mg oral tablet (12 sources) alpha-Adrenergic Fariha, beta-Adrenergic Fariha Start: 09-29-2024 End: 09-29-2025 take 1 tablet by mouth twice daily at mealtime cholecalciferol 0.05 mg chewable tablet (3 sources) Vitamin D Start: 12-01-2024 take 1 tablet by mouth once daily dicyclomine hydrochloride 20 mg oral tablet (20 sources) Anticholinergic Start: 07-27-2024 take 1 tablet by mouth every twelve hours dicyclomine (Bentyl) 20 mg tablet Take 1 tablet (20 mg) by mouth every 12 hours. 07/27/2024 Active Start: 03-11-2024 End: 11-23-2024 take 1 tablet by mouth twice daily Dicyclomine 20 mg tablet Discontinued 20 MG PO Twice daily 180 90 July 20, 2024 11:23am November 23, 2024 1:23pm Start: 12-12-2023 End: 08-05-2024 take 1 capsule by mouth twice daily Dicyclomine 10 mg capsule Discontinued 10 MG PO Twice daily 60 30 December 12, 2023 12:00am March 11, 2024 2:18pm Ketoconazole 2 % shampoo (1 source) Start: [...] Daily June 20, 2023 12:00am Multivitamin tablet (14 sources) Start: 06-20-2023 take 1 tablet by [...] 2023 11:00pm nitroglycerin 0.4 mg sublingual tablet (20 sources) Nitrate Vasodilator Start: 10-29-2023 polyethylene glycol 3350 69135 mg powder for oral solution (6 sources) Osmotic Laxative Start: 11-23-2024 sulfamethoxazole 800 mg / trimethoprim 160 mg oral tablet (11 sources) Dihydrofolate Reductase Inhibitor Antibacterial, Sulfonamide Antimicrobial Start: 02-19-2023 take 1 tablet by mouth every twelve hours Sulfamethoxa zole-Trimeth oprim 800-160 MG 1 tablet Orally Twice a day for 5 days Jan, Active Completed/Discontinued Medications Medication Drug Class(es) Dates Sig (Normalized) Sig (Original) clobetasol propionate 0.5 mg/ml topical solution (11 sources) Corticosteroid Start: 08-19-2024 End: 11-22-2024 Clobetasol 0.05 % solution Discontinued 1 APPLIC TOPICAL Daily at bedtime August 19, 2024 12:00am November 22, 2024 10:28pm clopidogrel 75 mg oral tablet (20 sources) P2Y12 Platelet Inhibitor Start: 12-20-2023 End: 12-19-2024 take 1 tablet by mouth once daily Clopidogrel (Plavix) 75 mg tablet Discontinued 75 MG PO Daily March 09, 2024 1:00am November 22, 2024 10:28pm famotidine 40 mg oral tablet (20 sources) [...] and HS for 10 days Mar, Active ketoconazole 20 mg/ml medicated shampoo (11 sources) Azole Antifungal Start: 08-19-2024 End: 11-22-2024 Ketoconazole 2 % shampoo Discontinued 1 APPLIC TOPICAL 3 Times a week 120 August 19, 2024 12:00am November 22, 2024 10:28pm losartan potassium 50 mg oral tablet (20 [...] PRN nausea for 5 days Apr, Active predniSONE 10 mg oral tablet (9 sources) Start: 11-04-2024 End: 11-22-2024 Prednisone 10 mg tablet Discontinued 10 MG PO As Directed 02 27November 04, 2024 12:00am November 22, 2024 10:28pm 1 tablet PO tid w/ food x 2 days then bid w/ food x 2 days then qd w/ food x 2 days 72 hr scopolamine 0.0139 mg/hr transdermal system (11 sources) Anticholinergic Start: 03-23-2024 End: 07-20-2024 Scopolamine [...] Discontinued 1 PATCH TRANSDERML Every 72 hours 06 29March 23, 2024 1:00am July 20, 2024 11:17am [...] before colonoscopy ticagrelor 90 mg oral tablet (20 sources) Start: 10-29-2023 End: 11-06-2024 take 1 tablet by mouth twice daily Ticagrelor (Brilinta) 90 mg Tablet Discontinued 90 MG PO Twice daily 180 90 October 29, 2023 12:00am March 09, 2024 5:37pm tiZANidine 2 mg oral tablet (9 sources) Central alpha-2 Adrenergic Agonist Start: 11-04-2024 End: 11-22-2024 take 0.5-1 tablets by mouth once daily at bedtime as needed Tizanidine 2 mg tablet Discontinued 0 PO Daily at bedtime as needed for muscle spasticity 10 November 04, 2024 12:00am November 22, 2024 10:28pm 1/2 - 1 tablet orally daily at bedtime PRN; Problems Active Problems Problem Classification Problem Date Documented Da te Episodic/Chronic Abdominal pain (20 sources) Left lower quadrant pain; Translations: [Left lower quadrant pain] Episodic Acute myocardial infarction (20 sources) Myocardial infarction; Translations: [ST elevation (STEMI) myocardial infarction involving other coronary artery of inferior wall] 10-27-2023 Chronic Cancer of colon (20 sources) Personal history of other malignant neoplasm of large intestine; Translations: [Personal history of malignant neoplasm of large intestine] 05-21-2023 Episodic Complications of surgical procedures or medical care (19 sources) Drug therapy finding; Translations: [Unspecified adverse effect of drug or medicament, initial encounter] 11-05-2023 Episodic Coronary atherosclerosis and other heart disease (20 sources) Coronary arteriosclerosis; Translations: [Atherosclerotic heart disease of [place] coronary artery without angina pectoris] Onset: 11-07-2023 [...] hypertension; Translations: [Essential hypertension] Onset: 05-21-2022 Chronic Fluid and electrolyte disorders (10 sources) Acute hypokalemia; Translations: [Hypokalemia] 11-22-2024 Episodic Genitourinary symptoms and ill-defined conditions (20 sources) [...] care home (current) drug therapy; Translations: [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 CURRENT DRUG THERAPY] Onset: 05-22-2022 Episodic Other [...] source) Pain in right arm Episodic Other fractures (20 sources) Compression fracture of lumbar spine; Translations: [Wedge compression fracture of unspecified lumbar vertebra, initial encounter for closed fracture] 11-16-2024 Episodic Other gastrointestinal disorders (20 sources) Irritable [...] unspecified; Translations: [Diarrhea] Episodic Other gastrointestinal disorders (20 sources) Altered bowel function; Translations: [Change in bowel habit] 05-21-2023 Episodic Other gastrointestinal disorders (3 sources) Change in bowel habit; Translations: [Other symptoms involving digestive system] 05-21-2023 Episodic Other gastrointestinal disorders (20 sources) Change in stool caliber; Translations: [Other fecal abnormalities] 06-20-2023 Episodic Other gastrointestinal disorders (16 sources) Diarrhea; Translations: [Diarrhea, unspecified] 12-12-2023 Episodic Other gastrointestinal disorders (14 sources) Urgent desire for stool; Translations: [Fecal urgency] 12-12-2023 Episodic Other gastrointestinal disorders (2 sources) Fecal urgency; Translations: [Fecal urgency] 12-12-2023 Episodic Other gastrointestinal disorders (13 sources) Swollen abdomen; Translations: [Abdominal distension (gaseous)] 11-16-2024 Episodic Other gastrointestinal disorders (10 sources) Constipation; Translations: [Constipation, unspecified] 11-22-2024 Episodic Other gastrointestinal disorders (1 source) Constipation, unspecified; Translations: [Constipation, unspecified] Onset: 11-22-2024 Episodic Other gastrointestinal disorders (4 sources) Constipation alternates with diarrhea; Translations: [Other specified symptoms and signs involving the digestive system and abdomen] 12-01-2024 Episodic Other inflammatory condition of skin (14 sources) Seborrheic dermatitis; Translations: [Seborrheic dermatitis, unspecified] [...] lung field] Episodic Other lower respiratory disease (19 sources) Lung mass; Translations: [Other nonspecific abnormal finding of lung field] 07-24-2023 Episodic Other lower respiratory disease (20 sources) Dyspnea; Translations: [Shortness of breath] Onset: 11-07-2023 11-05-2023 Episodic Other lower respiratory disease (13 sources) Imaging of lung abnormal ; Translations: [Other nonspecific abnormal finding of lung field] 03-12-2024 Episodic Other non-traumatic joint disorders (20 sources) Rotator cuff arthropathy of right shoulder; Translations: [Other specific arthropathies, not elsewhere classified, right shoulder] 05-21-2023 Chronic Other non-traumatic joint disorders (5 sources) Other specific arthropathies, not elsewhere classified, right shoulder; Translations: [Other specified arthropathy, shoulder region] 05-21-2023 Chronic Other non-traumatic joint disorders (16 sources) Derangement of right shoulder joint; Translations: [Other specific joint derangements of right shoulder, not elsewhere classified] 11-18-2024 Chronic Other non-traumatic joint disorders (5 sources) [...] [Localized swelling, mass and lump, trunk] Episodic Pathological fracture (8 sources) H/O: fragility fracture; Translations: [Personal history of (healed) other pathological fracture] 11-18-2024 Episodic Pleurisy; pneumothorax; pulmonary collapse (20 sources) [...] edema; Translations: [Localized edema] Onset: 11-03-2024 Episodic Residual codes; unclassified (7 sources) Postmenopausal state; Translations: [Asymptomatic menopausal state] 11-18-2024 Episodic Spondylosis; intervertebral disc disorders; other back problems (20 sources) Lumbar spondylosis; Translations: [Spondylosis without myelopathy or radiculopathy, lumbar region] Chronic Comment on above: MRI: C3-4 mod forami nal stenosis, C4-5 mod foraminal and canal stenosis, C5-6 severe right foraminal stenosis, C7-T1 moderate B/L foraminal narrowing - 10/2024 Spondylosis; intervertebral disc disorders; other back problems (20 sources) Neck pain; Translations: [Cervicalgia] 08-19-2024 Episodic Sprains and strains (20 sources) Shoulder strain; Translations: [Strain of unspecified muscle, fascia and tendon at shoulder and upper arm level, right arm, initial encounter] 11-18-2024 Episodic Substance-related disorders (20 sources) Tobacco user; Translations: [Nicotine dependence, cigarettes, 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 Please call tomorrow on 11/24/24 to schedule a post hospital follow up apt within the next seven days. Unclassified (4 sources) A [facility] screening has identified you as FRAIL or AT RISK FOR FRAILTY. This puts you at a higher risk for infection, illness, falls, and other injuries. Here are four ways to help you reduce your risk of frailty: 1. IDENTIFY EARLY SIGNS OF FRAILTY Discuss contributing factors and concerns with your doctor 2. BE ACTIVE Walking and light strengthening exercises will help reduce weakness 3. EAT WELL Aim for three healthy meals a day that are high in protein 4. THINK POSITIVE Keep your mind active by being sociable and continuing to learn References: Stay Strong: Four Ways to Beat the Frailty Risk [email or web address]-[email or web address]-loxmhmjs on/heip-czwmuk-ilmz- beei-pr-psfn-the-fra ilty-risk 11-23-2024 Past or Other Problems Problem Classification Problem Date Documented Da te Episodic/Chronic Coronary atherosclerosis and other heart disease (2 sources) Coronary angioplasty status; Translations: [Coronary angioplasty status] Onset: 11-07-2023 Episodic Esophageal disorders (14 sources) Esophageal disorders; Translations: [Gastroesophageal reflux disease with esophagitis without hemorrhage] Malaise and fatigue (12 sources) Other fatigue; Translations: [Fatigue] Onset: 12-20-2023 Episodic Other lower respiratory disease (2 sources) Shortness of breath; Translations: [Shortness of breath] Onset: 11-07-2023 11-12-2023 Episodic Residual codes; unclassified (6 sources) [...] Test Name Value Interpretation Reference Range Facility Alanine aminotransferase [En zymatic activity/volume] in Serum or PlasmaOrdered By: Trinity Obrien on 11-22-2024 ALT [Catalytic activity/Vol] 21 U/L 7-52 [facility] Comment on above: Performed By: #### H EPATIC, BMP, CBC, LIPASE #### [address] Albumin [Mass/volume] in Ser um or Plasma by Bromocresol green (BCG) dye binding methoOrdered By: Trinity Micah on 11-22-2024 Albumin BCG dye [Mass/Vol] 4.0 g/dL 3.5-5.7 [facility] Alkaline phosphatase [Enzyma tic activity/volume] in Serum or PlasmaOrdered By: Trinity Micah on 11-22-2024 ALP [Catalytic activity/Vol] 147 U/L High 34-104 [facility] Comment on above: Performed By: #### H EPATIC, BMP, CBC, LIPASE #### [address] Appearance of UrineOrdered B y: Trinity Gurrolageant on 11-22-2024 Appearance (U) Clear Clear [facility] Comment on above: Order Comment: Name Collection Type:: Clean-Voided Midstream Performed By: #### U A #### [facility] [address] [place] [address] Aspartate aminotransferase [ Enzymatic activity/volume] in Serum or PlasmaOrdered By: Trinity Micah on 11-22-2024 AST [Catalytic activity/Vol] 19 U/L 13-39 [facility] Comment on above: Performed By: #### H EPATIC, BMP, CBC, LIPASE #### [address] Basic Metabolic Panelon 10-25 Creatinine Clr Calc Pharmacy 40.32 Normal [facility] Comment on above: Performed By: #### H EPATIC, BMP, CBC, LIPASE #### [address] GFR/1.73 sq M.predicted MDRD (S/P/Bld) [Vol rate/Area] mL/min/{1.73_m2} Normal [facility] Comment on above: Performed By: #### H EPATIC, BMP, CBC, LIPASE #### [facility] [address] [place] [address] Basophils [#/volume] in Bloo d by Automated countOrdered By: Trinity Obrien on 11-22-2024 Basophils (Bld) [#/Vol] 0.1 10*3/uL 0.0-0.2 [facility] Comment on above: Result Comment: PERF ORMED BY: [place] [address] PATHOLOGIST REFERRAL AND INFORMATION AIDE CANDELARIA JALLOH M.D. Performed By: #### H EPATIC, BMP, CBC, LIPASE #### [address] Basophils/100 leukocytes in Blood by Automated countOrdered By: Trinity Obrien on 11-22-2024 Basophils/100 WBC (Bld) 1.1 % . [facility] Comment on above: Performed By: #### H EPATIC, BMP, CBC, LIPASE #### [address] Bilirubin Test strip Ql (U)O rdered By: Trinity Obrien on 11-22-2024 Bilirubin Ql (U) Negative Negative [facility] Bilirubin.direct [Mass/volum e] in Serum or PlasmaOrdered By: Trinity Obrien on 11-22-2024 Bilirubin.direct [Mass/Vol] 0.10 mg/dL 0.03-0.18 [facility] Bilirubin.total [Mass/volume ] in Serum or PlasmaOrdered By: Trinity Obrien on 11-22-2024 Bilirubin [Mass/Vol] 0.4 mg/dL 0.3-1.0 [facility] Comment on above: Performed By: #### H EPATIC, BMP, CBC, LIPASE #### [address] Calcium [Mass/volume] in Ser um or PlasmaOrdered By: Trinity Obrien on 11-22-2024 Calcium [Mass/Vol] 9.2 mg/dL 8.6-10.3 [facility] Comment on above: Performed By: #### H EPATIC, BMP, CBC, LIPASE #### [address] Carbon dioxide, total [Moles /volume] in Serum or PlasmaOrdered By: Trinity Obiren on 11-22-2024 CO2 [Moles/Vol] 24.3 mmol/L 21.0-31.0 [facility] Comment on above: Performed By: #### H EPATIC, BMP, CBC, LIPASE #### [address] Chloride [Moles/volume] in S carolyne or PlasmaOrdered By: Trinity Obrien on 11-22-2024 Chloride [Moles/Vol] 102 mmol/L 98-107 [facility] Comment on above: Performed By: #### H EPATIC, BMP, CBC, LIPASE #### [address] Color of Urine by AutoOrdere d By: Trinity Obrien on 11-22-2024 Color (U) Colorless Yellow [facility] Comment on above: Order Comment: Name Collection Type:: Clean-Voided Midstream Performed By: #### U A #### [address] Complete Blood Count Auto Di ffon 11-22-2024 Mean Corpuscular HGB Conc 34.6 g/dL Normal 32.0-35.0 [facility] Comment on above: Performed By: #### H EPATIC, BMP, CBC, LIPASE #### [place] [address] [place] Monocytes/100 WBC (Bld) 20.64 % High 0.00-20.00 [facility] Comment on above: Result Comment: For adults in ED, MDW > 20.0 may be associated with a higher risk of sepsis during the first 12 hrs of hospital admission Performed By: #### H EPATIC, BMP, CBC, LIPASE #### [address] NRBC% 0.1 /100{WBC} Normal 0-0.5 [facility] Comment on above: Performed By: #### H EPATIC, BMP, CBC, LIPASE #### [address] White Blood Count 7.5 [CFU]/mL Normal 3.8-11.6 [facility] Comment on above: Performed By: #### H EPATIC, BMP, CBC, LIPASE #### [address] Creatinine [Mass/volume] in Serum or PlasmaOrdered By: Trinity Obrien on 11-22-2024 Creatinine [Mass/Vol] 0.89 mg/dL 0.60-1.20 [facility] Comment on above: Performed By: #### H EPATIC, BMP, CBC, LIPASE #### [address] Eosinophils [#/volume] in Bl ood by Automated countOrdered By: Trinity Obrien on 11-22-2024 Eosinophils (Bld) [#/Vol] 0.1 10*3/uL 0.0-0.45 [facility] Comment on above: Performed By: #### H EPATIC, BMP, CBC, LIPASE #### [address] Eosinophils/100 leukocytes i n Blood by Automated countOrdered By: Trinity Obrien on 11-22-2024 Eosinophils/100 WBC (Bld) 0.9 % . [facility] Comment on above: Performed By: #### H EPATIC, BMP, CBC, LIPASE #### [address] Erythrocyte distribution wid th [Ratio] by Automated countOrdered By: Trinity Obrien on 11-22-2024 Erythrocyte distribution width (RBC) [Ratio] 13.5 % 11.9-15.3 [facility] Comment on above: Performed By: #### H EPATIC, BMP, CBC, LIPASE #### [address] Erythrocytes [#/volume] in B lood by Automated countOrdered By: Trinity Obrien on 11-22-2024 RBC (Bld) [#/Vol] 4.11 10*6/uL 3.60-5.00 [facility] Comment on above: Performed By: #### H EPATIC, BMP, CBC, LIPASE #### [facility] [address] Glomerular filtration rate [ Volume Rate/Area] in Serum, Plasma or Blood by CreatinineOrdered By: Trinity Obrien on 11-22-2024 Glomerular filtration rate [Volume Rate/Area] in Serum, Plasma or Blood by Creatinine > 60.0 mL/Min [facility] Glucose [Mass/volume] in Ser um or PlasmaOrdered By: Trinity Obrien on 11-22-2024 Glucose [Mass/Vol] 97 mg/dL 70-100 [facility] Comment on above: ADA recommended refe rence rangeRandom Glucose Reference Range is dependent on time and content of last meal. Glucose of more than 200 mg/dL in a nonstressed, ambulatory subject supports the diagnosis of Diabetes Mellitus. Result Comment: [place] om Glucose Reference Range is dependent on time and content of last meal. Glucose of more than 200 mg/dL in a nonstressed, ambulatory subject supports the diagnosis of Diabetes Mellitus. ADA recommended reference range Performed By: #### H EPATIC, BMP, CBC, LIPASE #### [facility] [address] Glucose [Mass/volume] in Uri ne by Test stripOrdered By: Trinity Obrien on 11-22-2024 Glucose Test strip (U) [Mass/Vol] Normal mg/dL Normal [facility] Hematocrit [Volume Fraction] of Blood by Automated countOrdered By: Trinity Obrien on 11-22-2024 Hematocrit (Bld) [Volume fraction] 39.0 % 34.0-46.4 [facility] Comment on above: Performed By: #### H EPATIC, BMP, CBC, LIPASE #### [facility] [address] Hemoglobin Test strip Ql (U) Ordered By: Trinity Obrien on 08-31-2025 Hemoglobin Ql (U) Negative Negative [facility] Hemoglobin [Mass/volume] in BloodOrdered By: Trinity Obrien on 11-22-2024 Hemoglobin (Bld) [Mass/Vol] 13.5 g/dL 11.8-15.4 [facility] Comment on above: Performed By: #### H EPATIC, BMP, CBC, LIPASE #### [address] Hepatic Panelon 11-22-2024 Albumin [Mass/Vol] 4.0 g/dL Normal 3.5-5.7 [facility] Comment on above: Performed By: #### H EPATIC, BMP, CBC, LIPASE #### [address] Bilirubin,Indirect 0.3 mg/dL Normal [facility] Comment on above: Performed By: #### H EPATIC, BMP, CBC, LIPASE #### [address] Bilirubin.indirect [Mass/Vol] 0.10 mg/dL Normal 0.03-0.18 [facility] Comment on above: Performed By: #### H EPATIC, BMP, CBC, LIPASE #### [address] Ketones [Presence] in Urine by Test stripOrdered By: Trinity Obrien on 11-22-2024 Ketones Ql (U) Negative Negative [facility] Comment on above: Order Comment: Name Collection Type:: Clean-Voided Midstream Performed By: #### U A #### [address] Leukocyte esterase [Presence ] in Urine by Test stripOrdered By: Trinity Obrien on 11-22-2024 Leukocyte esterase Test strip Ql (U) Negative Negative [facility] Comment on above: Order Comment: Name Collection Type:: Clean-Voided Midstream Performed By: #### U A #### [place] [address] [place] Leukocytes [#/volume] correc kristi for nucleated erythrocytes in Blood by Automated counOrdered By: Trinity Obrien on 11-22-2024 WBC corrected for nucl RBC Auto (Bld) [#/Vol] 7.5 10*3/uL 3.8-11.6 [facility] Leukocytes [#/volume] in Blo od by Automated countOrdered By: Trinity Obrien on 11-22-2024 WBC (Bld) [#/Vol] 7.5 10*3/uL 3.8-11.6 [facility] Comment on above: Performed By: #### H EPATIC, BMP, CBC, LIPASE #### [facility] [address] [place] [address] Lipase [Enzymatic activity/v olume] in Serum or PlasmaOrdered By: Trinity Obrien on 11-22-2024 Lipase [Catalytic activity/Vol] 169.0 U/L High 11.0-82.0 [facility] Comment on above: Result Comment: PERF ORMED BY: [place] [address] PATHOLOGIST REFERRAL AND INFORMATION AIDE CANDELARIA JALLOH M.D. Performed By: #### H EPATIC, BMP, CBC, LIPASE #### [place] [address] [place] Lymphocytes [#/volume] in Bl ood by Automated countOrdered By: Trinity Obrien on 11-22-2024 Lymphocytes (Bld) [#/Vol] 1.5 10*3/uL 1.00-4.8 [facility] Comment on above: Performed By: #### H EPATIC, BMP, CBC, LIPASE #### [facility] [address] [place] [address] [place] Lymphocytes/100 leukocytes i n Blood by Automated countOrdered By: Trinity Obrien on 11-22-2024 Lymphocytes/100 WBC (Bld) 20.6 % . [facility] Comment on above: Performed By: #### H EPATIC, BMP, CBC, LIPASE #### [facility] [address] [place] [address] [place] MCH [Entitic mass] by Automa kristi countOrdered By: Trinity Obrien on 11-22-2024 MCH (RBC) [Entitic mass] 32.8 pg 24.7-34.3 [facility] Comment on above: Performed By: #### H EPATIC, BMP, CBC, LIPASE #### [facility] [address] [place] [address] MCHC Auto (RBC) [Mass/Vol]Or dered By: Trinity Obrien on 11-22-2024 MCHC (RBC) [Mass/Vol] 34.6 g/dL 32.0-35.0 [facility] MCV [Entitic volume] by Auto mated countOrdered By: Trinity Obrien on 11-22-2024 MCV (RBC) [Entitic vol] 94.9 fL 80-100 [facility] Comment on above: Performed By: #### H EPATIC, BMP, CBC, LIPASE #### [facility] [address] [place] [address] Monocyte distribution width [Entitic volume] in Blood by AutomatedOrdered By: Trinity Orbien on 11-22-2024 Monocyte distribution width Auto (Bld) [Entitic vol] 20.64 % High 0.00-20.00 [facility] Comment on above: For adults in ED, MD W > 20.0 may be associated with a higher risk of sepsis during the first 12 hrs of hospital admission Monocytes [#/volume] in Bloo d by Automated countOrdered By: Trinity Obrien on 11-22-2024 Monocytes (Bld) [#/Vol] 1.0 10*3/uL High 0.0-0.8 [facility] Comment on above: Performed By: #### H EPATIC, BMP, CBC, LIPASE #### [facility] [address] [place] [address] Monocytes/100 leukocytes in Blood by Automated countOrdered By: Trinity Obrien on 11-22-2024 Monocytes/100 WBC (Bld) 13.9 % . [facility] Comment on above: Performed By: #### H EPATIC, BMP, CBC, LIPASE #### [facility] [address] [place] [address] Neutrophils [#/volume] in Bl ood by Automated countOrdered By: Trinity Obrien on 11-22-2024 Neutrophils (Bld) [#/Vol] 4.8 10*3/uL 1.8-7.7 [facility] Comment on above: Performed By: #### H EPATIC, BMP, CBC, LIPASE #### [facility] [address] [place] [address] [place] Neutrophils/100 leukocytes i n Blood by Automated countOrdered By: Trinity Obrien on 11-22-2024 Neutrophils/100 WBC (Bld) 63.5 % . [facility] Comment on above: Performed By: #### H EPATIC, BMP, CBC, LIPASE #### [facility] [address] Nitrite Test strip Ql (U)Ord ered By: Trinity Obrien on 11-22-2024 Nitrite Ql (U) Negative Negative [facility] No Panel InformationOrdered By: Trinity Obrien on 11-22-2024 Pharmacy Creatinine Clearance (Chem 40.32 [facility] Nucleated erythrocytes [Pres ence] in Blood by Automated countOrdered By: Trinity Obrien on 11-22-2024 Nucleated RBC Auto Ql (Bld) 0.1 /100{WBC} 0-0.5 [facility] Platelet mean volume [Entiti c volume] in Blood by Automated countOrdered By: Trinity Obrien on 11-22-2024 Platelet mean volume (Bld) [Entitic vol] 7.4 fL 6.3-10.7 [facility] Comment on above: Performed By: #### H EPATIC, BMP, CBC, LIPASE #### [facility] [address] [place] [address] [place] Platelets [#/volume] in Bloo d by Automated countOrdered By: Trinity Obrien on 11-22-2024 Platelets (Bld) [#/Vol] 290 10*3/uL 150-450 [facility] Comment on above: Performed By: #### H EPATIC, BMP, CBC, LIPASE #### [facility] [address] [place] [address] [place] Potassium [Moles/volume] in Serum or PlasmaOrdered By: Trinity Obrien on 11-22-2024 Potassium [Moles/Vol] 3.3 mmol/L Low 3.5-5.1 [facility] Comment on above: Performed By: #### H EPATIC, BMP, CBC, LIPASE #### [facility] [address] [place] [address] Protein Test strip (U) [Mass /Vol]Ordered By: Trinity Obrien on 11-22-2024 Protein (U) [Mass/Vol] Negative Negative [facility] Protein [Mass/volume] in Ser um or PlasmaOrdered By: Trinity Obrien on 11-22-2024 Protein [Mass/Vol] 6.7 g/dL 6.4-8.9 [facility] Comment on above: Performed By: #### H EPATIC, BMP, CBC, LIPASE #### [address] Serum globulin measurement b y calculation (mass/volume)Ordered By: Trinity Obrien on 11-22-2024 Globulin (S) [Mass/Vol] 2.7 g/dL [facility] Comment on above: Performed By: #### H EPATIC, BMP, CBC, LIPASE #### [address] Serum or plasma albumin/glob ulin mass ratioOrdered By: Trinity Obrien on 11-22-2024 Albumin/Globulin [Mass ratio] 1.5 {ratio} [facility] Comment on above: Performed By: #### H EPATIC, BMP, CBC, LIPASE #### [address] Serum or plasma anion gap de terminationOrdered By: Trinity Obrien on 11-22-2024 Anion gap [Moles/Vol] 11.0 mmol/L 6.0-15.0 [facility] Comment on above: Performed By: #### H EPATIC, BMP, CBC, LIPASE #### [facility] [address] [place] [address] Serum or plasma non-glucuron idated bilirubin measurement (mass/volume)Ordered By: Trinity Obrien on 11-22-2024 Bilirubin.indirect [Mass/Vol] 0.3 mg/dL [facility] Sodium [Moles/volume] in Ser um or PlasmaOrdered By: Trinity Obrien on 11-22-2024 Sodium [Moles/Vol] 134 mmol/L Low 136-145 [facility] Comment on above: Performed By: #### H EPATIC, BMP, CBC, LIPASE #### [facility] [address] Specific gravity Test strip (U) [Rel density]Ordered By: Trinity Obrien on 11-22-2024 Specific gravity (U) [Rel density] 1.005 1.001-1.03 0 [facility] Urea nitrogen [Mass/volume] in Serum or PlasmaOrdered By: Trinity Obrien on 11-22-2024 Urea nitrogen [Mass/Vol] 10 mg/dL 10-16 [facility] Comment on above: Performed By: #### H EPATIC, BMP, CBC, LIPASE #### [facility] [address] [place] [address] [place] Urinalysison 11-22-2024 Bilirubin,Urine Negative Normal Negative [facility] Comment on above: Order Comment: Name Collection Type:: Clean-Voided Midstream Performed By: #### U A #### [address] Glucose Ql (U) Normal Normal Normal [facility] Comment on above: Order Comment: Name Collection Type:: Clean-Voided Midstream Performed By: #### U A #### [place] [address] [place] Nitrite,Urine Negative Normal Negative [facility] Comment on above: Order Comment: Name Collection Type:: Clean-Voided Midstream Performed By: #### U A #### [address] Occult Blood,Urine Negative Normal Negative [facility] Comment on above: Order Comment: Name Collection Type:: Clean-Voided Midstream Result Comment: PERF ORMED BY: [place] [address] PATHOLOGIST REFERRAL AND INFORMATION AIDE CANDELARIA JALLOH M.D. Performed By: #### U A #### [address] Protein,Urine Negative Normal Negative [facility] Comment on above: Order Comment: Name Collection Type:: Clean-Voided Midstream Performed By: #### U A #### [address] Specificy [place],Urine 1.005 Normal 1.001-1.03 0 [facility] Comment on above: Order Comment: Name Collection Type:: Clean-Voided Midstream Performed By: #### U A #### [address] Urobilinogen,Urine Normal Normal Normal [facility] Comment on above: Order Comment: Name Collection Type:: Clean-Voided Midstream Performed By: #### U A #### [address] Urobilinogen Test strip (U) [Mass/Vol]Ordered By: Trinity Obrien on 11-22-2024 Urobilinogen (U) [Mass/Vol] Normal mg/dL Normal [facility] X-ray reportOrdered By: Endy Crowley on 11-22-2024 Study report [facility] [place] [address] XRay Report Signed Patient: Genny Barboza MR#: [id number] : 1940 Acct:[id number] Age/Sex: 84 / F ADM Date: 5 Loc: ER Room: Type: [facility] ER Attending Dr: Copies to: Trinity Obrien MD~ Ordering Provider: Trinity Obrien MD Date of Service: 11/22/24 XR/XR KUB: Abdominal Pain XR KUB 11/22/2024 6:55 PM SIGNS AND SYMPTOMS: Abdominal pain, abdominal distention, constipation PROTOCOL: Frontal radiographs of the abdomen and pelvis COMPARISON: None FINDINGS: There is a moderate to large amount stool throughout the colon. Stool and bowelgas reaching the rectum. Mildly prominent air-filled loops of small bowel are noted. The bony structures are intact with degenerative changes noted in the lower lumbar spine and sacroiliac joints. XR/XR KUB IMPRESSION: Mildly prominent air-filled loops of small bowel are noted. However, stool and bowel gas reaching. No definite radiographic evidence of bowel obstruction. There is a moderate to large amount of stool within the colon. This is consistent with the history of constipation. Impression dictated by: Endy Crowley M.D. 11/22/2024 7:06 PM Dictation Location: [id number]-17 Transcribed By: CODY 11/22/241905 Dictated By: Endy Crowley II, MD 11/22/241904 Signed By: 11/22/241905 [facility] Work Phone: XR KUBon 11-22-2024 XR KUB [facility] [place] [address] XRay Report Signed Patient: Genny Barboza MR#: [id number] : 1940 Acct:[id number] Age/Sex: 84 / F ADM Date: 11/22/24 Loc: ER Room: Type: [facility] ER Attending Dr: Copies to: Trinity Obrien MD Ordering Provider: Trinity Obrien MD Date of Service: 11/22/24 XR/XR KUB: Abdominal Pain XR KUB 11/22/2024 6:55 PM SIGNS AND SYMPTOMS: Abdominal pain, abdominal distention, constipation PROTOCOL: Frontal radiographs of the abdomen and pelvis COMPARISON: None FINDINGS: There is a moderate to large amount stool throughout the colon. Stool and bowel gas reaching the rectum. Mildly prominent air-filled loops of small bowel are noted. The bony structures are intact with degenerative changes noted in the lower lumbar spine and sacroiliac joints. XR/XR KUB IMPRESSION: Mildly prominent air-filled loops of small bowel are noted. However, stool and bowel gas reaching. No definite radiographic evidence of bowel obstruction. There is a moderate to large amount of stool within the colon. This is consistent with the history of constipation. Impression dictated by: Endy Crowley M.D. 11/22/2024 7:06 PM Dictation Location: [place] [address] Transcribed By: CODY 11/22/241905 Dictated By: Endy Crowley II, MD 11/22/241904 Signed By: 11/22/241905 Normal [facility] pH of Urine by Test stripOrd ered By: Trinity Obrien on 11-22-2024 pH (U) 5.5 [pH] 5.0-9.0 [facility] Comment on above: Order Comment: Name Collection Type:: Clean-Voided Midstream Performed By: #### U A #### [address] Activated partial thrombopla stin time (aPTT) in platelet poor plasma by coagulation aOrdered By: Manish Dejesus on 11-16-2024 aPTT Coag (PPP) [Time] 21.9 s Low 22.3-36.2 [facility] Basophils Auto (Bld) [#/Vol] Ordered By: Manish Dejesus on 11-16-2024 Basophils (Bld) [#/Vol] 0.0 10 3/uL 0.0-0.1 [facility] Basophils/100 WBC Auto (Bld) Ordered By: Manish Dejesus on 11-16-2024 Basophils/100 WBC (Bld) 0.2 % 0.2-2.0 [facility] Eosinophils/100 WBC Auto (Bl d)Ordered By: Manish Dejesus on 11-16-2024 Eosinophils/100 WBC (Bld) 0.1 % Low 0.9-7.0 [facility] Erythrocyte distribution wid th Auto (RBC) [Ratio]Ordered By: Manish Dejesus on 11-16-2024 Erythrocyte distribution width (RBC) [Ratio] 13.9 % 11.0-15.0 [facility] Globulin Calc (S) [Mass/Vol] Ordered By: Branden Du on 11-16-2024 Globulin (S) [Mass/Vol] 3.8 g/dL [facility] Glomerular filtration rate ( GFR) estimation in non- AmericanOrdered By: Branden Du on 11-16-2024 GFR/1.73 sq M.predicted among non-blacks MDRD (S/P/Bld) [Vol rate/Area] mL/min/{1.73_m2} >=60 mL/min/1.7 3m 2 [facility] Hematocrit Auto (Bld) [Volum e fraction]Ordered By: Manish Dejesus on 11-16-2024 Hematocrit (Bld) [Volume fraction] 41.7 % 36.0-48.0 [facility] Hemoglobin [Mass/volume] in BloodOrdered By: Manish Dejesus on 11-16-2024 Hemoglobin (Bld) [Mass/Vol] 13.8 g/dL 12.0-16.0 [facility] INR in Platelet poor plasma by Coagulation assayOrdered By: Manish Dejesus on 11-16-2024 INR Coag (PPP) [Relative time] 0.97 {INR} [facility] Comment on above: DESIRED INR:2.0-3.0 CONDITIONS NOT LISTED BELOW2.5-3.5 FOR PROSTHETIC HEART VALVE REPLACEMENT2.5-3.5 RECURRENT THROMBOSIS Laboratory - Chemistry and C hemistry - challengeOrdered By: Branden Du on 11-16-2024 Albumin [Mass/Vol] 3.6 g/dL 3.4-5.0 [facility] ALP [Catalytic activity/Vol] 133 U/L High 46-116 [facility] ALT [Catalytic activity/Vol] 41 U/L 14-59 [facility] AST [Catalytic activity/Vol] 22 U/L 15-37 [facility] Bilirubin [Mass/Vol] 0.5 mg/dL 0.2-1.0 [facility] Calcium [Mass/Vol] 9.6 mg/dL 8.5-10.1 [facility] Chloride [Moles/Vol] 103 mmol/L 98-107 [facility] CO2 [Moles/Vol] 26.7 mmol/L 21.0-32.0 [facility] Creatinine [Mass/Vol] 0.73 mg/dL 0.55-1.02 [facility] GFR/1.73 sq M.predicted MDRD (S/P/Bld) [Vol rate/Area] mL/min/{1.73_m2} >=60 mL/min/1.7 3m 2 [facility] Glucose [Mass/Vol] 118 mg/dL High 74-106 [facility] Potassium [Moles/Vol] 4.4 mmol/L 3.5-5.1 [facility] Protein [Mass/Vol] 7.4 g/dL 6.4-8.2 [facility] Sodium [Moles/Vol] 140 mmol/L 136-145 [facility] Urea nitrogen [Mass/Vol] 15.0 mg/dL 7.0-18.0 [facility] Urea nitrogen/Creatinine [Mass ratio] 20.5 mg/mg [facility] Laboratory - Chemistry and C hemistry - challengeOrdered By: Manish Dejesus on 11-16-2024 Lactate [Moles/Vol] 1.4 mmol/L 0.4-2.0 [facility] Magnesium [Mass/Vol] 2.2 mg/dL 1.8-2.4 [facility] Bilirubin Ql (U) Negative NEGATIVE [facility] Glucose (U) [Mass/Vol] Negative NEGATIVE [facility] Ketones Ql (U) Negative NEGATIVE [facility] pH (U) 6.0 [pH] 5.0-9.0 [facility] Specific gravity (U) [Rel density] 1.015 1.005-1.02 5 [facility] Urobilinogen Qn (U) 0.2 {Mio'U}/dL 0.2-1.0 [facility] Laboratory - Hematology and Cell countsOrdered By: Manish Dejesus on 11-16-2024 Immature granulocytes/100 WBC (Bld) 0.4 % 0.0-0.5 [facility] Laboratory - Specimen inform ationOrdered By: Manish Dejesus on 11-16-2024 Appearance (U) CLEAR CLEAR [facility] Color (U) LT. YELLOW YELLOW [facility] Laboratory - UrinalysisOrder ed By: Manish Dejesus on 11-16-2024 Leukocyte esterase Test strip Ql (U) Negative NEGATIVE [facility] Mucus Ql (Urine sed) NONE SEEN NONE SEEN [facility] Nitrite Ql (U) Negative NEGATIVE [facility] Protein Ql (U) Negative NEG/TRACE [facility] Leukocytes [#/volume] correc kristi for nucleated erythrocytes in Blood by Automated counOrdered By: Manish Dejesus on 11-16-2024 WBC corrected for nucl RBC Auto (Bld) [#/Vol] 9.3 10 3/uL 4.0-11.0 [facility] Lymphocytes Auto (Bld) [#/Vo l]Ordered By: Manish Dejesus on 11-16-2024 Lymphocytes (Bld) [#/Vol] 1.1 10 3/uL Low 1.2-3.8 [facility] Lymphocytes/100 WBC Auto (Bl d)Ordered By: Manish Dejesus on 11-16-2024 Lymphocytes/100 WBC (Bld) 11.2 % Low 20.5-60.0 [facility] MCH Auto (RBC) [Entitic mass ]Ordered By: Manish Dejesus on 11-16-2024 MCH (RBC) [Entitic mass] 32.4 pg 26.7-34.0 [facility] MCHC Auto (RBC) [Mass/Vol]Or dered By: Manish Dejesus on 11-16-2024 MCHC (RBC) [Mass/Vol] 33.1 g/dL 29.9-35.2 [facility] MCV Auto (RBC) [Entitic vol] Ordered By: Manish Dejesus on 11-16-2024 MCV (RBC) [Entitic vol] 97.9 fL 81.0-99.0 [facility] Monocytes Auto (Bld) [#/Vol] Ordered By: Manish Dejesus on 11-16-2024 Monocytes (Bld) [#/Vol] 0.6 10 3/uL 0.3-0.8 [facility] Monocytes/100 WBC Auto (Bld) Ordered By: Manish Dejesus on 11-16-2024 Monocytes/100 WBC (Bld) 6.7 % 1.7-12.0 [facility] Neutrophils Auto (Bld) [#/Vo l]Ordered By: Manish Dejesus on 11-16-2024 Neutrophils (Bld) [#/Vol] 7.6 10 3/uL High 1.4-6.5 [facility] Neutrophils/100 WBC Auto (Bl d)Ordered By: Manish Dejesus on 11-16-2024 Neutrophils/100 WBC (Bld) 81.4 % High 43.0-75.0 [facility] No Panel InformationOrdered By: Manish Dejesus on 11-16-2024 Eosinophils # (Auto) 0.0 10 3/uL 0.0-0.7 [facility] Immature Granulocyte # (Auto) 0.04 10 3/uL High 0.00-0.03 [facility] Troponin I High Sensitivity 5.7 pg/mL 4.0-51.3 [facility] Comment on above: CUT-OFF POINTS [...] IN CONJUNCTIONWITH OTHER DIAGNOSTIC AND CLINICAL INFORMATION. Urine Bacteria TRACE #/HPF Abnormal NONE SEEN [facility] Urine Occult Blood TRACE-I NEGATIVE [facility] Urine Other Casts NONE SEEN #/LPF NONE SEEN [facility] Urine Other Crystals None Seen #/HPF None Seen [facility] Urine RBC 2-5 #/HPF Abnormal 0-2 [facility] Urine Squamous Epithelial Cells RARE #/LPF NONE/RARE [facility] Urine WBC 0-2 #/HPF Abnormal NONE SEEN [facility] Platelet mean volume Auto (B ld) [Entitic vol]Ordered By: Manish Dejesus on 11-16-2024 Platelet mean volume (Bld) [Entitic vol] 9.2 fL Low 9.5-13.5 [facility] Platelets Auto (Bld) [#/Vol] Ordered By: Manish Dejesus on 11-16-2024 Platelets (Bld) [#/Vol] 277 10 3/uL 150-450 [facility] Prothrombin time (PT)Ordered By: Manish Dejesus on 08-25-2025 PT Coag (PPP) [Time] 10.3 s 9.0-11.6 [facility] RBC Auto (Bld) [#/Vol]Ordere d By: Manish Dejesus on 11-16-2024 RBC (Bld) [#/Vol] 4.26 10 6/uL 4.20-5.40 [facility] Serum or plasma albumin/glob ulin mass ratioOrdered By: Branden Du on 11-16-2024 Albumin/Globulin [Mass ratio] 0.9 {ratio} [facility] Serum or plasma anion gap de terminationOrdered By: Branden Du on 11-16-2024 Anion gap [Moles/Vol] 14.7 mmol/L [facility] Basophils Auto (Bld) [#/Vol] Ordered By: Laurie Mills on 10-03-2024 Basophils (Bld) [#/Vol] 0.0 10 3/uL 0.0-0.1 [facility] Basophils/100 WBC Auto (Bld) Ordered By: Laurie Mills on 10-03-2024 Basophils/100 WBC (Bld) 0.5 % 0.2-2.0 [facility] Eosinophils/100 WBC Auto (Bl d)Ordered By: Laurie Mills on 10-03-2024 Eosinophils/100 WBC (Bld) 1.1 % 0.9-7.0 [facility] Erythrocyte distribution wid th Auto (RBC) [Ratio]Ordered By: Laurie Mills on 10-03-2024 Erythrocyte distribution width (RBC) [Ratio] 13.3 % 11.0-15.0 [facility] Estimated glomerular filtrat ion rate (GFR) non- AmericanOrdered By: Laurie Mills on 10-03-2024 GFR/1.73 sq M.predicted among non-blacks MDRD (S/P/Bld) [Vol rate/Area] mL/min/{1.73_m2} >=60 mL/min/1.7 3m 2 [facility] Globulin Calc (S) [Mass/Vol] Ordered By: Laurie Mills on 10-03-2024 Globulin (S) [Mass/Vol] 3.2 g/dL [facility] Hematocrit Auto (Bld) [Volum e fraction]Ordered By: Laurie Mills on 10-03-2024 Hematocrit (Bld) [Volume fraction] 39.3 % 36.0-48.0 [facility] Hemoglobin [Mass/volume] in BloodOrdered By: Laurie Mills on 10-03-2024 Hemoglobin (Bld) [Mass/Vol] 13.3 g/dL 12.0-16.0 [facility] Laboratory - Chemistry and C hemistry - challengeOrdered By: Laurie Mills on 10-03-2024 Bilirubin Ql (U) Negative NEGATIVE [facility] Glucose (U) [Mass/Vol] Negative NEGATIVE [facility] Ketones Ql (U) Negative NEGATIVE [facility] pH (U) 6.0 [pH] 5.0-9.0 [facility] Specific gravity (U) [Rel density] <=1.005 Abnormal 1.005-1.02 5 [facility] Urobilinogen Qn (U) 0.2 {Mio'U}/dL 0.2-1.0 [facility] Albumin [Mass/Vol] 3.5 g/dL 3.4-5.0 [facility] ALP [Catalytic activity/Vol] 109 U/L 46-116 [facility] ALT [Catalytic activity/Vol] 30 U/L 14-59 [facility] AST [Catalytic activity/Vol] 15 U/L 15-37 [facility] Bilirubin [Mass/Vol] 0.4 mg/dL 0.2-1.0 [facility] Calcium [Mass/Vol] 9.5 mg/dL 8.5-10.1 [facility] Chloride [Moles/Vol] 104 mmol/L 98-107 [facility] CO2 [Moles/Vol] 26.7 mmol/L 21.0-32.0 [facility] Creatinine [Mass/Vol] 0.82 mg/dL 0.55-1.02 [facility] GFR/1.73 sq M.predicted MDRD (S/P/Bld) [Vol rate/Area] mL/min/{1.73_m2} >=60 mL/min/1.7 3m 2 [facility] Glucose [Mass/Vol] 112 mg/dL High 74-106 [facility] Potassium [Moles/Vol] 3.8 mmol/L 3.5-5.[address] [facility] Protein [Mass/Vol] 6.7 g/dL 6.4-8.2 [facility] Sodium [Moles/Vol] 140 mmol/L 136-145 [facility] Urea nitrogen [Mass/Vol] 25.0 mg/dL High 7.0-18.0 [facility] Urea nitrogen/Creatinine [Mass ratio] 30.5 mg/mg [facility] Laboratory - Hematology and Cell countsOrdered By: Laurie Mills on 10-03-2024 Immature granulocytes/100 WBC (Bld) 0.2 % 0.0-0.5 [facility] Laboratory - Specimen inform ationOrdered By: Laurie Mills on 10-03-2024 Appearance (U) CLEAR CLEAR [facility] Color (U) LT. YELLOW YELLOW [facility] Laboratory - UrinalysisOrder ed By: Laurie Mills on 10-03-2024 Leukocyte esterase Test strip Ql (U) SMALL Abnormal NEGATIVE [facility] Mucus Ql (Urine sed) NONE SEEN NONE SEEN [facility] Nitrite Ql (U) Negative NEGATIVE [facility] Protein Ql (U) Negative NEG/TRACE [facility] Leukocytes [#/volume] correc kristi for nucleated erythrocytes in Blood by Automated counOrdered By: Laurie Mills on 10-03-2024 WBC corrected for nucl RBC Auto (Bld) [#/Vol] 6.1 10 3/uL 4.0-11.0 [facility] Lymphocytes Auto (Bld) [#/Vo l]Ordered By: Laurie Mills on 10-03-2024 Lymphocytes (Bld) [#/Vol] 1.4 10 3/uL 1.2-3.8 [facility] Lymphocytes/100 WBC Auto (Bl d)Ordered By: Laurie Mills on 10-03-2024 Lymphocytes/100 WBC (Bld) 22.6 % 20.5-60.0 [facility] MCH Auto (RBC) [Entitic mass ]Ordered By: Laurie Mills on 10-03-2024 MCH (RBC) [Entitic mass] 32.9 pg 26.7-34.0 [facility] MCHC Auto (RBC) [Mass/Vol]Or dered By: Laurie Mills on 10-03-2024 MCHC (RBC) [Mass/Vol] 33.8 g/dL 29.9-35.2 [facility] MCV Auto (RBC) [Entitic vol] Ordered By: Laurie Mills on 10-03-2024 MCV (RBC) [Entitic vol] 97.3 fL 81.0-99.0 [facility] Monocytes Auto (Bld) [#/Vol] Ordered By: Laurie Mills on 10-03-2024 Monocytes (Bld) [#/Vol] 0.7 10 3/uL 0.3-0.8 [facility] Monocytes/100 WBC Auto (Bld) Ordered By: Laurie Mills on 10-03-2024 Monocytes/100 WBC (Bld) 12.1 % High 1.7-12.0 [facility] Neutrophils Auto (Bld) [#/Vo l]Ordered By: Laurie Mills on 10-03-2024 Neutrophils (Bld) [#/Vol] 3.9 10 3/uL 1.4-6.5 [facility] Neutrophils/100 WBC Auto (Bl d)Ordered By: Laurie Mills on 10-03-2024 Neutrophils/100 WBC (Bld) 63.5 % 43.0-75.0 [facility] No Panel InformationOrdered By: Laurie Mills on 10-03-2024 Urine Bacteria SMALL #/HPF Abnormal NONE SEEN [facility] Urine Culture Reflexed YES-[facility] Urine Microscopic Review YES [facility] Urine Occult Blood TRACE-L NEGATIVE [facility] Urine Other Casts NONE SEEN #/LPF NONE SEEN [facility] Urine Other Crystals None Seen #/HPF None Seen [facility] Urine RBC 2-5 #/HPF Abnormal 0-2 [facility] Urine Squamous Epithelial Cells RARE #/LPF NONE/RARE [facility] Urine WBC 5-10 #/HPF Abnormal NONE SEEN [facility] Eosinophils # (Auto) 0.1 10 3/uL 0.0-0.7 [facility] Immature Granulocyte # (Auto) 0.01 10 3/uL 0.00-0.03 [facility] Troponin I High Sensitivity 5.7 pg/mL 4.0-51.3 [facility] Comment on above: CUT-OFF POINTS [...] volume (Bld) [Entitic vol] 9.6 fL 9.5-13.5 [facility] Platelets Auto (Bld) [#/Vol] Ordered By: Laurie Mills on 10-03-2024 Platelets (Bld) [#/Vol] 250 10 3/uL 150-450 [facility] RBC Auto (Bld) [#/Vol]Ordere d By: Laurie Mills on 10-03-2024 RBC (Bld) [#/Vol] 4.04 10 6/uL Low 4.20-5.40 [facility] Serum or plasma albumin/glob ulin mass ratioOrdered By: Laurie Mills on 10-03-2024 Albumin/Globulin [Mass ratio] 1.1 {ratio} [facility] Serum or plasma anion gap de terminationOrdered By: Laurie Mills on 10-03-2024 Anion gap [Moles/Vol] 13.1 mmol/L [facility] Urine Cultureon 10-03-2024 Bacteria identified Cx Nom (U) ORGANISM: Escherichia coli (MDRO) (O:ESCCOLMDRO) Braggadocio Count >100,000 * This is a corrected [...] RESISTANT TO ALL B-LACTAM DRUGS. PERFORMED BY: [place] [address] PATHOLOGIST REFERRAL AND INFORMATION AIDE CANDELARIA JALLOH M.D. Normal [facility] Comment on above: Performed By: #### C UU #### [address] Urine cultureOrdered By: Anisa Mills on 10-03-2024 Bacteria identified Cx Nom (U) Escherichia coli (MDRO) Abnormal [facility] Basophils Auto (Bld) [#/Vol] on 08-05-2024 Basophils (Bld) [#/Vol] Automated basophil count 0.0-0.1 [facility] Basophils (Bld) [#/Vol] 0.0 10 3/uL 0.0-0.1 [facility] Basophils/100 WBC Auto (Bld) on 08-05-2024 Basophils/100 WBC (Bld) Automated basophil % 0.2-2.0 [facility] Basophils/100 WBC (Bld) 0.6 % 0.2-2.0 [facility] Eosinophils/100 WBC Auto (Bl d)on 08-05-2024 Eosinophils/100 WBC (Bld) Automated eosinophil % 0.9-7.0 [facility] Eosinophils/100 WBC (Bld) 0.9 % 0.9-7.0 [facility] Erythrocyte distribution wid th Auto (RBC) [Ratio]on 08-05-2024 Erythrocyte distribution width (RBC) [Ratio] Erythrocyte distribution width [Ratio] by Automated count 11.0-15.0 [facility] Erythrocyte distribution width (RBC) [Ratio] 13.9 % 11.0-15.0 [facility] Estimated glomerular filtrat ion rate (GFR) non- Americanon 08-05-2024 GFR/1.73 sq M.predicted among non-blacks MDRD (S/P/Bld) [Vol rate/Area] Estimated glomerular filtration rate (GFR) non- Low >=60 mL/min/1.7 3m 2 [facility] GFR/1.73 sq M.predicted among non-blacks MDRD (S/P/Bld) [Vol rate/Area] 58 mL/min/{1.73_m2} Low >=60 mL/min/1.7 3m 2 [facility] Hematocrit Auto (Bld) [Volum e fraction]on 08-05-2024 Hematocrit (Bld) [Volume fraction] Hematocrit [Volume Fraction] of Blood by Automated count 36.0-48.0 [facility] Hematocrit (Bld) [Volume fraction] 39.6 % 36.0-48.0 [facility] Hemoglobin [Mass/volume] in Bloodon 08-05-2024 Hemoglobin (Bld) [Mass/Vol] Hemoglobin [Mass/volume] in Blood 12.0-16.0 [facility] Hemoglobin (Bld) [Mass/Vol] 13.3 g/dL 12.0-16.0 [facility] Laboratory - Chemistry and C hemistry - challengeon 08-05-2024 Calcium [Mass/Vol] 9.7 mg/dL 8.5-10.1 [facility] Chloride [Moles/Vol] 107 mmol/L 98-107 [facility] CO2 [Moles/Vol] 24.2 mmol/L 21.0-32.0 [facility] Creatinine [Mass/Vol] 0.92 mg/dL 0.55-1.02 [facility] GFR/1.73 sq M.predicted MDRD (S/P/Bld) [Vol rate/Area] mL/min/{1.73_m2} >=60 mL/min/1.7 3m 2 [facility] Glucose [Mass/Vol] 86 mg/dL 74-106 [facility] Potassium [Moles/Vol] 3.6 mmol/L 3.5-5.1 [facility] Sodium [Moles/Vol] 140 mmol/L 136-145 [facility] TSH Qn 1.563 m[IU]/L 0.358-3.74 0 [facility] Urea nitrogen [Mass/Vol] 15.0 mg/dL 7.0-18.0 [facility] Urea nitrogen/Creatinine [Mass ratio] 16.3 mg/mg [facility] Laboratory - Hematology and Cell countson 08-05-2024 Immature granulocytes/100 WBC (Bld) 0.2 % 0.0-0.5 [facility] Leukocytes [#/volume] correc kristi for nucleated erythrocytes in Blood by Automated counon 08-05-2024 WBC corrected for nucl RBC Auto (Bld) [#/Vol] Leukocytes [#/volume] corrected for nucleated erythrocytes in Blood by Automated coun 4.0-11.0 [facility] WBC corrected for nucl RBC Auto (Bld) [#/Vol] 6.3 10 3/uL 4.0-11.0 [facility] Lymphocytes Auto (Bld) [#/Vo l]on 08-05-2024 Lymphocytes (Bld) [#/Vol] Lymphocytes [#/volume] in Blood by Automated count 1.2-3.8 [facility] Lymphocytes (Bld) [#/Vol] 1.8 10 3/uL 1.2-3.8 [facility] Lymphocytes/100 WBC Auto (Bl d)on 08-05-2024 Lymphocytes/100 WBC (Bld) Lymphocytes/100 leukocytes in Blood by Automated count 20.5-60.0 [facility] Lymphocytes/100 WBC (Bld) 28.0 % 20.5-60.0 [facility] MCH Auto (RBC) [Entitic mass ]on 08-05-2024 MCH (RBC) [Entitic mass] MCH [Entitic mass] by Automated count 26.7-34.0 [facility] MCH (RBC) [Entitic mass] 32.5 pg 26.7-34.0 [facility] MCHC Auto (RBC) [Mass/Vol]on 08-05-2024 MCHC (RBC) [Mass/Vol] MCHC [Mass/volume] by Automated count 29.9-35.2 [facility] MCHC (RBC) [Mass/Vol] 33.6 g/dL 29.9-35.2 [facility] MCV Auto (RBC) [Entitic vol] on 08-05-2024 MCV (RBC) [Entitic vol] MCV [Entitic volume] by Automated count 81.0-99.0 [facility] MCV (RBC) [Entitic vol] 96.8 fL 81.0-99.0 [facility] Monocytes Auto (Bld) [#/Vol] on 08-05-2024 Monocytes (Bld) [#/Vol] Automated blood monocyte count 0.3-0.8 [facility] Monocytes (Bld) [#/Vol] 0.6 10 3/uL 0.3-0.8 [facility] Monocytes/100 WBC Auto (Bld) on 08-05-2024 Monocytes/100 WBC (Bld) Automated monocyte % 1.7-12.0 [facility] Monocytes/100 WBC (Bld) 9.7 % 1.7-12.0 [facility] Neutrophils Auto (Bld) [#/Vo l]on 08-05-2024 Neutrophils (Bld) [#/Vol] Neutrophils [#/volume] in Blood by Automated count 1.4-6.5 [facility] Neutrophils (Bld) [#/Vol] 3.8 10 3/uL 1.4-6.5 [facility] Neutrophils/100 WBC Auto (Bl d)on 08-05-2024 Neutrophils/100 WBC (Bld) Automated neutrophil % 43.0-75.0 [facility] Neutrophils/100 WBC (Bld) 60.6 % 43.0-75.0 [facility] No Panel Informationon 08-05 Eosinophils # (Auto) 0.1 10 3/uL 0.0-0.7 [facility] Immature Granulocyte # (Auto) 0.01 10 3/uL 0.00-0.03 [facility] Platelet mean volume Auto (B ld) [Entitic vol]on 08-05-2024 Platelet mean volume (Bld) [Entitic vol] Platelet mean volume [Entitic volume] in Blood by Automated count 9.5-13.5 [facility] Platelet mean volume (Bld) [Entitic vol] 9.8 fL 9.5-13.5 [facility] Platelets Auto (Bld) [#/Vol] on 08-05-2024 Platelets (Bld) [#/Vol] Platelets [#/volume] in Blood by Automated count 150-450 [facility] Platelets (Bld) [#/Vol] 265 10 3/uL 150-450 [facility] RBC Auto (Bld) [#/Vol]on RBC (Bld) [#/Vol] Erythrocytes [#/volu me] in Blood by Automated count Low 4.20-5.40 [facility] RBC (Bld) [#/Vol] 4.09 10 6/uL Low 4.20-5.40 [facility] Serum or plasma anion gap de terminationon 08-05-2024 Anion gap [Moles/Vol] Serum or plasma an ion gap determination [facility] Anion gap [Moles/Vol] 12.4 mmol/L [facility] Basophils Auto (Bld) [#/Vol] on 04-28-2024 Basophils (Bld) [#/Vol] Automated basophil count 0.0-0.1 [facility] Basophils/100 WBC Auto (Bld) on 04-28-2024 Basophils/100 WBC (Bld) Automated basophil % 0.2-2.0 [facility] Eosinophils/100 WBC Auto (Bl d)on 04-28-2024 Eosinophils/100 WBC (Bld) Automated eosinophil % Low 0.9-7.0 [facility] Erythrocyte distribution wid th Auto (RBC) [Ratio]on 04-28-2024 Erythrocyte distribution width (RBC) [Ratio] Erythrocyte distribution width [Ratio] by Automated count 11.0-15.0 [facility] Hematocrit Auto (Bld) [Volum e fraction]on 04-28-2024 Hematocrit (Bld) [Volume fraction] Hematocrit [Volume Fraction] of Blood by Automated count 36.0-48.0 [facility] Hemoglobin [Mass/volume] in Bloodon 04-28-2024 Hemoglobin (Bld) [Mass/Vol] Hemoglobin [Mass/volume] in Blood 12.0-16.0 [facility] Laboratory - Chemistry and C hemistry - challengeon 04-28-2024 Cobalamin (Vitamin B12) [Mass/Vol] 811 pg/mL 232-1245 [facility] Comment on above: Performed at: [place] [id number] Director: Aime Fabian PhD, Phone: [phone] TSH Qn 2.025 m[IU]/L 0.358-3.74 0 [facility] Laboratory - Hematology and Cell countson 04-28-2024 Immature granulocytes/100 WBC (Bld) 0.1 % 0.0-0.5 [facility] Leukocytes [#/volume] correc kristi for nucleated erythrocytes in Blood by Automated counon 04-28-2024 WBC corrected for nucl RBC Auto (Bld) [#/Vol] Leukocytes [#/volume] corrected for nucleated erythrocytes in Blood by Automated coun 4.0-11.0 [facility] Lymphocytes Auto (Bld) [#/Vo l]on 04-28-2024 Lymphocytes (Bld) [#/Vol] Lymphocytes [#/volume] in Blood by Automated count 1.2-3.8 [facility] Lymphocytes/100 WBC Auto (Bl d)on 04-28-2024 Lymphocytes/100 WBC (Bld) Lymphocytes/100 leukocytes in Blood by Automated count 20.5-60.0 [facility] MCH Auto (RBC) [Entitic mass ]on 04-28-2024 MCH (RBC) [Entitic mass] MCH [Entitic mass] by Automated count 26.7-34.0 [facility] MCHC Auto (RBC) [Mass/Vol]on 04-28-2024 MCHC (RBC) [Mass/Vol] MCHC [Mass/volume] by Automated count 29.9-35.2 [facility] MCV Auto (RBC) [Entitic vol] on 04-28-2024 MCV (RBC) [Entitic vol] MCV [Entitic volume] by Automated count 81.0-99.0 [facility] Monocytes Auto (Bld) [#/Vol] on 04-28-2024 Monocytes (Bld) [#/Vol] Automated blood monocyte count 0.3-0.8 [facility] Monocytes/100 WBC Auto (Bld) on 04-28-2024 Monocytes/100 WBC (Bld) Automated monocyte % 1.7-12.0 [facility] Neutrophils Auto (Bld) [#/Vo l]on 04-28-2024 Neutrophils (Bld) [#/Vol] Neutrophils [#/volume] in Blood by Automated count 1.4-6.5 [facility] Neutrophils/100 WBC Auto (Bl d)on 04-28-2024 Neutrophils/100 WBC (Bld) Automated neutrophil % 43.0-75.0 [facility] No Panel Informationon 04-28 Eosinophils # (Auto) 0.1 10 3/uL 0.0-0.7 [facility] Immature Granulocyte # (Auto) 0.01 10 3/uL 0.00-0.03 [facility] Platelet mean volume Auto (B ld) [Entitic vol]on 04-28-2024 Platelet mean volume (Bld) [Entitic vol] Platelet mean volume [Entitic volume] in Blood by Automated count 9.5-13.5 [facility] Platelets Auto (Bld) [#/Vol] on 04-28-2024 Platelets (Bld) [#/Vol] Platelets [#/volume] in Blood by Automated count 150-450 [facility] RBC Auto (Bld) [#/Vol]on RBC (Bld) [#/Vol] Erythrocytes [#/volu me] in Blood by Automated count Low 4.20-5.40 [facility] Serum or plasma methylmalona te measurement (moles/volume)on 04-28-2024 Methylmalonate [Moles/Vol] Serum or plasma methylmalonate measurement (moles/volume) 0-378 [facility] Comment on above: This test was develo ped and its performance characteristicsdetermined by [employer]. It has not been cleared orapproved by the Food and Drug Administration.Performed at: [facility] [address] [id number] Director: Guanaco Russell MD, Phone: [phone] Basophils Auto (Bld) [#/Vol] on 03-12-2024 Basophils (Bld) [#/Vol] Automated basophil count 0.0-0.1 [facility] Basophils/100 WBC Auto (Bld) on 03-12-2024 Basophils/100 WBC (Bld) Automated basophil % 0.2-2.0 [facility] Cholesterol in LDL Calc [Mas s/Vol]on 03-12-2024 Cholesterol in LDL [Mass/Vol] Cholesterol in LDL [Mass/volume] in Serum or Plasma by calculation [facility] Comment on above: <100 mg/dl [id number] 0-129 mg/dl NEAR OR ABOVE [id number] mg/dl BORDERLINE [id number] mg/dl HIGH>190 mg/dl VERY HIGH Cholesterol in VLDL Calc [Ma ss/Vol]on 03-12-2024 Cholesterol in VLDL [Mass/Vol] Cholesterol in VLDL [Mass/volume] in Serum or Plasma by calculation [facility] Eosinophils/100 WBC Auto (Bl d)on 03-12-2024 Eosinophils/100 WBC (Bld) Automated eosinophil % Low 0.9-7.0 [facility] Erythrocyte distribution wid th Auto (RBC) [Ratio]on 03-12-2024 Erythrocyte distribution width (RBC) [Ratio] Erythrocyte distribution width [Ratio] by Automated count 11.0-15.0 [facility] Estimated glomerular filtrat ion rate (GFR) non- Americanon 03-12-2024 GFR/1.73 sq M.predicted among non-blacks MDRD (S/P/Bld) [Vol rate/Area] Estimated glomerular filtration rate (GFR) non- Low >=60 mL/min/1.7 3m 2 [facility] Globulin Calc (S) [Mass/Vol] on 03-12-2024 Globulin (S) [Mass/Vol] Serum globulin measurement by calculation (mass/volume) [facility] Hematocrit Auto (Bld) [Volum e fraction]on 03-12-2024 Hematocrit (Bld) [Volume fraction] Hematocrit [Volume Fraction] of Blood by Automated count 36.0-48.0 [facility] Hemoglobin [Mass/volume] in Bloodon 03-12-2024 Hemoglobin (Bld) [Mass/Vol] Hemoglobin [Mass/volume] in Blood 12.0-16.0 [facility] IgA [Mass/volume] in Serum o r Plasmaon 03-12-2024 IgA [Mass/Vol] IgA [Mass/volume] in Serum or Plasma 64-422 [facility] Comment on above: Performed at: [address] [id number] Director: Aime Fabian PhD, Phone: [phone] Laboratory - Chemistry and C hemistry - challengeon 03-12-2024 Albumin [Mass/Vol] 3.5 g/dL 3.4-5.0 [facility] ALP [Catalytic activity/Vol] 123 U/L High 46-116 [facility] ALT [Catalytic activity/Vol] 32 U/L 14-59 [facility] AST [Catalytic activity/Vol] 17 U/L 15-37 [facility] Bilirubin [Mass/Vol] 0.6 mg/dL 0.2-1.0 [facility] Calcium [Mass/Vol] 9.1 mg/dL 8.5-10.1 [facility] Chloride [Moles/Vol] 107 mmol/L 98-107 [facility] Cholesterol [Mass/Vol] 199 mg/dL <=200 [facility] Cholesterol in HDL [Mass/Vol] 128 mg/dL High 40-60 [facility] Comment on above: > or =60 mg/dl - LOW CARDIOVASCULAR RISK<40 mg/dl - HIGH CARDIOVASCULAR RISK CO2 [Moles/Vol] 25.5 mmol/L 21.0-32.0 [facility] Creatinine [Mass/Vol] 0.97 mg/dL 0.55-1.02 [facility] GFR/1.73 sq M.predicted MDRD (S/P/Bld) [Vol rate/Area] mL/min/{1.73_m2} >=60 mL/min/1.7 3m 2 [facility] Glucose [Mass/Vol] 91 mg/dL 74-106 [facility] Potassium [Moles/Vol] 3.7 mmol/L 3.5-5.1 [facility] Protein [Mass/Vol] 6.8 g/dL 6.4-8.2 [facility] Sodium [Moles/Vol] 143 mmol/L 136-145 [facility] Triglyceride [Mass/Vol] 65 mg/dL <=150 [facility] Urea nitrogen [Mass/Vol] 15.0 mg/dL 7.0-18.0 [facility] Urea nitrogen/Creatinine [Mass ratio] 15.5 mg/mg [facility] Laboratory - Hematology and Cell countson 03-12-2024 Immature granulocytes/100 WBC (Bld) 0.1 % 0.0-0.5 [facility] Leukocytes [#/volume] correc kristi for nucleated erythrocytes in Blood by Automated counon 03-12-2024 WBC corrected for nucl RBC Auto (Bld) [#/Vol] Leukocytes [#/volume] corrected for nucleated erythrocytes in Blood by Automated coun 4.0-11.0 [facility] Lymphocytes Auto (Bld) [#/Vo l]on 03-12-2024 Lymphocytes (Bld) [#/Vol] Lymphocytes [#/volume] in Blood by Automated count 1.2-3.8 [facility] Lymphocytes/100 WBC Auto (Bl d)on 03-12-2024 Lymphocytes/100 WBC (Bld) Lymphocytes/100 leukocytes in Blood by Automated count 20.5-60.0 [facility] MCH Auto (RBC) [Entitic mass ]on 03-12-2024 MCH (RBC) [Entitic mass] MCH [Entitic mass] by Automated count 26.7-34.0 [facility] MCHC Auto (RBC) [Mass/Vol]on 03-12-2024 MCHC (RBC) [Mass/Vol] MCHC [Mass/volume] by Automated count 29.9-35.2 [facility] MCV Auto (RBC) [Entitic vol] on 03-12-2024 MCV (RBC) [Entitic vol] MCV [Entitic volume] by Automated count 81.0-99.0 [facility] Monocytes Auto (Bld) [#/Vol] on 03-12-2024 Monocytes (Bld) [#/Vol] Automated blood monocyte count 0.3-0.8 [facility] Monocytes/100 WBC Auto (Bld) on 03-12-2024 Monocytes/100 WBC (Bld) Automated monocyte % 1.7-12.0 [facility] Neutrophils Auto (Bld) [#/Vo l]on 03-12-2024 Neutrophils (Bld) [#/Vol] Neutrophils [#/volume] in Blood by Automated count 1.4-6.5 [facility] Neutrophils/100 WBC Auto (Bl d)on 03-12-2024 Neutrophils/100 WBC (Bld) Automated neutrophil % 43.0-75.0 [facility] No Panel Informationon 03-12 Endomysial IgA Antibody Negative Negative [facility] Eosinophils # (Auto) 0.1 10 3/uL 0.0-0.7 [facility] Immature Granulocyte # (Auto) 0.01 10 3/uL 0.00-0.03 [facility] Platelet mean volume Auto (B ld) [Entitic vol]on 03-12-2024 Platelet mean volume (Bld) [Entitic vol] Platelet mean volume [Entitic volume] in Blood by Automated count 9.5-13.5 [facility] Platelets Auto (Bld) [#/Vol] on 03-12-2024 Platelets (Bld) [#/Vol] Platelets [#/volume] in Blood by Automated count 150-450 [facility] RBC Auto (Bld) [#/Vol]on RBC (Bld) [#/Vol] Erythrocytes [#/volu me] in Blood by Automated count Low 4.20-5.40 [facility] Serum gliadin peptide IgA an tibody assay (units/volume)on 03-12-2024 Gliadin peptide IgA Qn (S) Serum gliadin peptide IgA antibody assay (units/volume) 0 [facility] Comment on above: Negative 0 - 19 Weak Positive 20 - 30 Moderate to Strong Positive >30 Serum gliadin peptide IgG an tibody assay (units/volume)on 03-12-2024 Gliadin peptide IgG Qn (S) Serum gliadin peptide IgG antibody assay (units/volume) 0 [facility] Comment on above: Negative 0 - 19 Weak Positive 20 - 30 Moderate to Strong Positive >30 Serum or plasma albumin/glob ulin mass ratioon 03-12-2024 Albumin/Globulin [Mass ratio] Serum or plasma albumin/globulin mass ratio [facility] Serum or plasma anion gap de terminationon 03-12-2024 Anion gap [Moles/Vol] Serum or plasma an ion gap determination [facility] Serum or plasma total choles terol/high density lipoprotein (HDL) cholesterol mass henry 03-12-2024 Cholesterol.total/Cho lesterol in HDL [Mass ratio] Serum or plasma total cholesterol/high density lipoprotein (HDL) cholesterol mass rat [facility] Comment on above: 3.3 - 4.4 LOW RISK4. 4 - 7.1 AVERAGE RISK7.1 - 11.0 MODERATE RISK>11.0 HIGH RISK Serum tissue transglutaminas e (tTG) IgA antibody assay (units/volume)on 03-12-2024 tTG IgA Qn (S) Serum tissue transglutaminase (tTG) IgA antibody assay (units/volume) 0-3 [facility] Comment on above: Negative 0 [...] (tTG) IgG antibody assay (units/volume) Abnormal 0-5 [facility] Comment on above: Negative 0 - 5 Weak Positive 6 - 9 Positive >9 ECG 12 Leadon 12-20-2023 Normal sinus rhythm, leftward axis, low voltage, nonspecific ST-T wave abnormality, abnormal ECG [facility] Work Phone: Activated partial thrombopla stin time (aPTT) in platelet poor plasma by coagulation aOrdered By: PROVIDER TEMP on 11-05-2023 aPTT Coag (PPP) [Time] 30.2 s 25.1-36.5 [facility] Comment on above: A hematocrit value g reater than 55% may lead to inaccurate results in coagulation testing. Patients having hematocrit values >55% require a special collection tube for coagulation studies. Please contact the laboratory at [phone] for redraw instructions. Alanine aminotransferase [En zymatic activity/volume] in Serum or PlasmaOrdered By: PROVIDER TEMP on 11-05-2023 ALT [Catalytic activity/Vol] 27 U/L 7-52 [facility] Albumin [Mass/volume] in Ser um or Plasma by Bromocresol green (BCG) dye binding methoOrdered By: PROVIDER TEMP on 11-05-2023 Albumin BCG dye [Mass/Vol] 4.1 g/dL 3.5-5.7 [facility] Alkaline phosphatase [Enzyma tic activity/volume] in Serum or PlasmaOrdered By: PROVIDER TEMP on 11-05-2023 ALP [Catalytic activity/Vol] 99 U/L 34-104 [facility] Aspartate aminotransferase [ Enzymatic activity/volume] in Serum or PlasmaOrdered By: PROVIDER TEMP on 11-05-2023 AST [Catalytic activity/Vol] 19 U/L 13-39 [facility] Basophils Auto (Bld) [#/Vol] Ordered By: PROVIDER TEMP on 11-05-2023 Basophils (Bld) [#/Vol] 0.1 10*3/uL 0.0-0.2 [facility] Basophils/100 WBC Auto (Bld) Ordered By: PROVIDER TEMP on 11-05-2023 Basophils/100 WBC (Bld) 0.8 % . [facility] Bilirubin.total [Mass/volume ] in Serum or PlasmaOrdered By: PROVIDER TEMP on 11-05-2023 Bilirubin [Mass/Vol] 0.5 mg/dL 0.3-1.0 [facility] Calcium [Mass/volume] in Ser um or PlasmaOrdered By: PROVIDER TEMP on 11-05-2023 Calcium [Mass/Vol] 9.6 mg/dL 8.6-10.3 [facility] Carbon dioxide, total [Moles /volume] in Serum or PlasmaOrdered By: PROVIDER TEMP on 11-05-2023 CO2 [Moles/Vol] 22.2 mmol/L 21.0-31.0 [facility] Chloride [Moles/volume] in S carolyne or PlasmaOrdered By: PROVIDER TEMP on 11-05-2023 Chloride [Moles/Vol] 109 mmol/L High 98-107 [facility] Creatine kinase [Enzymatic a ctivity/volume] in Serum or PlasmaOrdered By: PROVIDER TEMP on 11-05-2023 CK [Catalytic activity/Vol] 66 U/L 30-223 [facility] Creatinine [Mass/volume] in Serum or PlasmaOrdered By: PROVIDER TEMP on 11-05-2023 Creatinine [Mass/Vol] 0.87 mg/dL 0.60-1.20 [facility] Eosinophils Auto (Bld) [#/Vo l]Ordered By: PROVIDER TEMP on 11-05-2023 Eosinophils (Bld) [#/Vol] 0.1 10*3/uL 0.0-0.45 [facility] Eosinophils/100 WBC Auto (Bl d)Ordered By: PROVIDER TEMP on 11-05-2023 Eosinophils/100 WBC (Bld) 0.8 % . [facility] Erythrocyte distribution wid th Auto (RBC) [Ratio]Ordered By: PROVIDER TEMP on 11-05-2023 Erythrocyte distribution width (RBC) [Ratio] 13.4 % 11.9-15.3 [facility] Globulin Calc (S) [Mass/Vol] Ordered By: PROVIDER TEMP on 11-05-2023 Globulin (S) [Mass/Vol] 2.7 g/dL [facility] Glucose [Mass/volume] in Ser um or PlasmaOrdered By: PROVIDER TEMP on 11-05-2023 Glucose [Mass/Vol] 104 mg/dL High 70-100 [facility] Comment on above: ADA recommended refe rence rangeRandom Glucose Reference Range is dependent on time and content of last meal. Glucose of more than 200 mg/dL in a nonstressed, ambulatory subject supports the diagnosis of Diabetes Mellitus. Hematocrit Auto (Bld) [Volum e fraction]Ordered By: PROVIDER TEMP on 11-05-2023 Hematocrit (Bld) [Volume fraction] 40.1 % 34.0-46.4 [facility] Hemoglobin [Mass/volume] in BloodOrdered By: PROVIDER TEMP on 11-05-2023 Hemoglobin (Bld) [Mass/Vol] 13.7 g/dL 11.8-15.4 [facility] INR in Platelet poor plasma by Coagulation assayOrdered By: PROVIDER TEMP on 11-05-2023 INR Coag (PPP) [Relative time] 0.9 {INR} [facility] Comment on above: INR Therapeutic [...] with mechanical heart valves: 3 - 4.5 Leukocytes [#/volume] correc kristi for nucleated erythrocytes in Blood by Automated counOrdered By: PROVIDER TEMP on 11-05-2023 WBC corrected for nucl RBC Auto (Bld) [#/Vol] 6.7 10*3/uL 3.8-11.6 [facility] Lymphocytes Auto (Bld) [#/Vo l]Ordered By: PROVIDER TEMP on 11-05-2023 Lymphocytes (Bld) [#/Vol] 1.0 10*3/uL 1.00-4.8 [facility] Lymphocytes/100 WBC Auto (Bl d)Ordered By: PROVIDER TEMP on 11-05-2023 Lymphocytes/100 WBC (Bld) 15.0 % . [facility] MCH Auto (RBC) [Entitic mass ]Ordered By: PROVIDER TEMP on 11-05-2023 MCH (RBC) [Entitic mass] 32.6 pg 24.7-34.3 [facility] MCHC Auto (RBC) [Mass/Vol]Or dered By: PROVIDER TEMP on 11-05-2023 MCHC (RBC) [Mass/Vol] 34.2 g/dL 32.0-35.0 [facility] MCV Auto (RBC) [Entitic vol] Ordered By: PROVIDER TEMP on 11-05-2023 MCV (RBC) [Entitic vol] 95.5 fL 80-100 [facility] Monocyte distribution width [Entitic volume] in Blood by AutomatedOrdered By: PROVIDER TEMP on 11-05-2023 Monocyte distribution width Auto (Bld) [Entitic vol] 20.41 % High 0.00-20.00 [facility] Comment on above: For adults in ED, MD W > 20.0 may be associated with a higher risk of sepsis during the first 12 hrs of hospital admission Monocytes Auto (Bld) [#/Vol] Ordered By: PROVIDER TEMP on 11-05-2023 Monocytes (Bld) [#/Vol] 0.6 10*3/uL 0.0-0.8 [facility] Monocytes/100 WBC Auto (Bld) Ordered By: PROVIDER TEMP on 11-05-2023 Monocytes/100 WBC (Bld) 9.6 % . [facility] Natriuretic peptide B [Mass/ Vol]Ordered By: PROVIDER TEMP on 11-05-2023 Natriuretic peptide B (Bld) [Mass/Vol] 293.0 pg/mL High 5-100 [facility] Neutrophils Auto (Bld) [#/Vo l]Ordered By: PROVIDER TEMP on 11-05-2023 Neutrophils (Bld) [#/Vol] 5.0 10*3/uL 1.8-7.7 [facility] Neutrophils/100 WBC Auto (Bl d)Ordered By: PROVIDER TEMP on 11-05-2023 Neutrophils/100 WBC (Bld) 73.8 % . [facility] No Panel InformationOrdered By: PROVIDER TEMP on 11-05-2023 Estimated GFR (CKD-EPI) > 60.0 mL/Min [facility] Creatinine Clearance (Chem 42.53 [facility] Nucleated erythrocytes [Pres ence] in Blood by Automated countOrdered By: PROVIDER TEMP on 11-05-2023 Nucleated RBC Auto Ql (Bld) 0.1 /100{WBC} 0-0.5 [facility] Platelet mean volume Auto (B ld) [Entitic vol]Ordered By: PROVIDER TEMP on 11-05-2023 Platelet mean volume (Bld) [Entitic vol] 8.0 fL 6.3-10.7 [facility] Platelets Auto (Bld) [#/Vol] Ordered By: PROVIDER TEMP on 11-05-2023 Platelets (Bld) [#/Vol] 314 10*3/uL 150-450 [facility] Potassium [Moles/volume] in Serum or PlasmaOrdered By: PROVIDER TEMP on 11-05-2023 Potassium [Moles/Vol] 4.3 mmol/L 3.5-5.1 [facility] Protein [Mass/volume] in Ser um or PlasmaOrdered By: PROVIDER TEMP on 11-05-2023 Protein [Mass/Vol] 6.8 g/dL 6.4-8.9 [facility] Prothrombin time (PT)Ordered By: PROVIDER TEMP on 11-05-2023 PT Coag (PPP) [Time] 11.0 s 9.0-12.9 [facility] Comment on above: A hematocrit value g reater than 55% may lead to inaccurate results in coagulation testing. Patients having hematocrit values >55% require a special collection tube for coagulation studies. Please contact the laboratory at [phone] for redraw instructions. RBC Auto (Bld) [#/Vol]Ordere d By: PROVIDER TEMP on 11-05-2023 RBC (Bld) [#/Vol] 4.19 10*6/uL 3.60-5.00 [facility] Serum or plasma albumin/glob ulin mass ratioOrdered By: PROVIDER TEMP on 11-05-2023 Albumin/Globulin [Mass ratio] 1.5 {ratio} [facility] Serum or plasma anion gap de terminationOrdered By: PROVIDER TEMP on 11-05-2023 Anion gap [Moles/Vol] 12.1 mmol/L 6.0-15.0 [facility] Sodium [Moles/volume] in Ser um or PlasmaOrdered By: PROVIDER TEMP on 11-05-2023 Sodium [Moles/Vol] 139 mmol/L 136-145 [facility] Troponin I.cardiac [Mass/vol ume] in Serum or Plasma by Detection limit <= 0.01 ng/Ordered By: Rona Andres on 11-05-2023 Troponin I.cardiac DL <= 0.01 ng/mL [Mass/Vol] 36.1 pg/mL High 0.0-15.0 [facility] Urea nitrogen [Mass/volume] in Serum or PlasmaOrdered By: PROVIDER TEMP on 11-05-2023 Urea nitrogen [Mass/Vol] 20 mg/dL 7-25 [facility] WBC Auto (Bld) [#/Vol]Ordere d By: PROVIDER TEMP on 11-05-2023 WBC (Bld) [#/Vol] 6.7 10*3/uL 3.8-11.6 [facility] Basophils Auto (Bld) [#/Vol] Ordered By: Reji Frausto on 10-29-2023 Basophils (Bld) [#/Vol] 0.1 10*3/uL 0.0-0.2 [facility] Basophils/100 WBC Auto (Bld) Ordered By: Reji Frausto on 10-29-2023 Basophils/100 WBC (Bld) 0.7 % . [facility] Calcium [Mass/volume] in Ser um or PlasmaOrdered By: Reji Frausto on 10-29-2023 Calcium [Mass/Vol] 9.3 mg/dL 8.6-10.3 [facility] Carbon dioxide, total [Moles /volume] in Serum or PlasmaOrdered By: Reji Frausto on 10-29-2023 CO2 [Moles/Vol] 24.3 mmol/L 21.0-31.0 [facility] Chloride [Moles/volume] in S carolyne or PlasmaOrdered By: Reji Frausto on 10-29-2023 Chloride [Moles/Vol] 109 mmol/L High 98-107 [facility] Creatinine [Mass/volume] in Serum or PlasmaOrdered By: Reji Frausto on 10-29-2023 Creatinine [Mass/Vol] 0.91 mg/dL 0.60-1.20 [facility] Eosinophils Auto (Bld) [#/Vo l]Ordered By: Reji Frausto on 10-29-2023 Eosinophils (Bld) [#/Vol] 0.0 10*3/uL 0.0-0.45 [facility] Eosinophils/100 WBC Auto (Bl d)Ordered By: Reji Frausto on 10-29-2023 Eosinophils/100 WBC (Bld) 0.6 % . [facility] Erythrocyte distribution wid th Auto (RBC) [Ratio]Ordered By: Reji Frausto on 10-29-2023 Erythrocyte distribution width (RBC) [Ratio] 13.8 % 11.9-15.3 [facility] Glucose [Mass/volume] in Ser um or PlasmaOrdered By: Reji Frausto on 10-29-2023 Glucose [Mass/Vol] 105 mg/dL High 70-100 [facility] Comment on above: ADA recommended refe rence rangeRandom Glucose Reference Range is dependent on time and content of last meal. Glucose of more than 200 mg/dL in a nonstressed, ambulatory subject supports the diagnosis of Diabetes Mellitus. Hematocrit Auto (Bld) [Volum e fraction]Ordered By: Reji Frausto on 10-29-2023 Hematocrit (Bld) [Volume fraction] 38.2 % 34.0-46.4 [facility] Hemoglobin [Mass/volume] in BloodOrdered By: Reji Frausto on 10-29-2023 Hemoglobin (Bld) [Mass/Vol] 12.9 g/dL 11.8-15.4 [facility] Leukocytes [#/volume] correc kristi for nucleated erythrocytes in Blood by Automated counOrdered By: Reji Frausto on 10-29-2023 WBC corrected for nucl RBC Auto (Bld) [#/Vol] 8.1 10*3/uL 3.8-11.6 [facility] Lymphocytes Auto (Bld) [#/Vo l]Ordered By: Reji Frausto on 10-29-2023 Lymphocytes (Bld) [#/Vol] 1.3 10*3/uL 1.00-4.8 [facility] Lymphocytes/100 WBC Auto (Bl d)Ordered By: Reji Frausto on 10-29-2023 Lymphocytes/100 WBC (Bld) 15.8 % . [facility] MCH Auto (RBC) [Entitic mass ]Ordered By: Reji Frausto on 10-29-2023 MCH (RBC) [Entitic mass] 32.7 pg 24.7-34.3 [facility] MCHC Auto (RBC) [Mass/Vol]Or dered By: Reji Frausto on 10-29-2023 MCHC (RBC) [Mass/Vol] 33.9 g/dL 32.0-35.0 [facility] MCV Auto (RBC) [Entitic vol] Ordered By: Reji Frausto on 10-29-2023 MCV (RBC) [Entitic vol] 96.5 fL 80-100 [facility] Monocytes Auto (Bld) [#/Vol] Ordered By: Reji Frausto on 10-29-2023 Monocytes (Bld) [#/Vol] 0.8 10*3/uL 0.0-0.8 [facility] Monocytes/100 WBC Auto (Bld) Ordered By: Reji Frausto on 10-29-2023 Monocytes/100 WBC (Bld) 9.4 % . [facility] Neutrophils Auto (Bld) [#/Vo l]Ordered By: Reji Frausto on 10-29-2023 Neutrophils (Bld) [#/Vol] 5.9 10*3/uL 1.8-7.7 [facility] Neutrophils/100 WBC Auto (Bl d)Ordered By: Reji Frausto on 10-29-2023 Neutrophils/100 WBC (Bld) 73.5 % . [facility] No Panel InformationOrdered By: Reji Frausto on 10-29-2023 Estimated GFR (CKD-EPI) > 60.0 mL/Min [facility] Creatinine Clearance (Chem 41.47 [facility] Nucleated erythrocytes [Pres ence] in Blood by Automated countOrdered By: Reji Frausto on 10-29-2023 Nucleated RBC Auto Ql (Bld) 0.1 /100{WBC} 0-0.5 [facility] Platelet mean volume Auto (B ld) [Entitic vol]Ordered By: Reji Frausto on 10-29-2023 Platelet mean volume (Bld) [Entitic vol] 8.0 fL 6.3-10.7 [facility] Platelets Auto (Bld) [#/Vol] Ordered By: Reji Frausto on 10-29-2023 Platelets (Bld) [#/Vol] 261 10*3/uL 150-450 [facility] Potassium [Moles/volume] in Serum or PlasmaOrdered By: eRji Frausto on 10-29-2023 Potassium [Moles/Vol] 4.0 mmol/L 3.5-5.1 [facility] RBC Auto (Bld) [#/Vol]Ordere d By: Reji Frausto on 10-29-2023 RBC (Bld) [#/Vol] 3.96 10*6/uL 3.60-5.00 [facility] Serum or plasma anion gap de terminationOrdered By: Reji Frausto on 10-29-2023 Anion gap [Moles/Vol] 8.7 mmol/L 6.0-15.0 [facility] Sodium [Moles/volume] in Ser um or PlasmaOrdered By: Reji Frausto on 10-29-2023 Sodium [Moles/Vol] 138 mmol/L 136-145 [facility] Urea nitrogen [Mass/volume] in Serum or PlasmaOrdered By: Reji Frausto on 10-29-2023 Urea nitrogen [Mass/Vol] 17 mg/dL 7-25 [facility] WBC Auto (Bld) [#/Vol]Ordere d By: Reji Frausto on 10-29-2023 WBC (Bld) [#/Vol] 8.1 10*3/uL 3.8-11.6 [facility] Cholesterol [Mass/volume] in Serum or PlasmaOrdered By: Reji Frausto on 10-28-2023 Cholesterol [Mass/Vol] 241 mg/dL High 140-200 [facility] Comment on above: Chol less than 200 m g/dl low riskChol 201-239 mg/dl borderline riskChol 240 mg/dl and greater high risk Cholesterol in LDL Calc [Mas s/Vol]Ordered By: Reji Frausto on 10-28-2023 Cholesterol in LDL [Mass/Vol] 108 mg/dL High 0-100 [facility] Comment on above: LDL ATP III CLASSIFI CATIONLDL less than 100 mg/dL OptimalLDL 100-129 mg/dL Near or above optimalLDL 130-159 mg/dL Borderline highLDL 160-189 mg/dL HighLDL greater than 189 mg/dL Very high Cholesterol in VLDL Calc [Ma ss/Vol]Ordered By: Reji Frausto on 10-28-2023 Cholesterol in VLDL [Mass/Vol] 20 mg/dL [facility] Serum or plasma high density lipoprotein (HDL) cholesterol measurementOrdered By: Reji Frausto on 10-28-2023 Cholesterol in HDL [Mass/Vol] 112 mg/dL High 23-92 [facility] Comment on above: HDL CHOL ATP-III CLA SSIFICATION Cardiovascular RiskHDL > or equal to 60 mg/dL LOWHDL < 40 mg/dL HIGH Serum or plasma total choles terol/high density lipoprotein (HDL) cholesterol mass ratOrdered By: Reji Frausto on 10-28-2023 Cholesterol.total/Cho lesterol in HDL [Mass ratio] 2.2 {ratio} <5.0 [facility] Triglyceride [Mass/volume] i n Serum or PlasmaOrdered By: Reji Frausto on 10-28-2023 Triglyceride [Mass/Vol] 103 mg/dL 0-149 [facility] Comment on above: TRIG ATP III CLASSIF ICATIONTRIG less than 150 mg/dL NormalTRIG 150-199 mg/dL Borderline highTRIG 200-500 mg/dL High TRIG greater than 500 mg/dL Very highStandard traceable to the Center for Disease Conrtrol and Prevention (CDC) test method. Troponin I.cardiac [Mass/vol ume] in Serum or Plasma by Detection limit <= 0.01 ng/Ordered By: Reji Frausto on 10-28-2023 Troponin I.cardiac DL <= 0.01 ng/mL [Mass/Vol] 40570.4 pg/mL High 0.0-15.0 [facility] Comment on above: Critical Result : Ca lled to and read back by: ELLA SCOTT at: 10/28/2023 05:06:20 by:[id number] Activated partial thrombopla stin time (aPTT) in platelet poor plasma by coagulation aOrdered By: Doe Álvarez on 10-27-2023 aPTT Coag (PPP) [Time] 23.1 s Low 25.1-36.5 [facility] Comment on above: A hematocrit value g reater than 55% may lead to inaccurate results in coagulation testing. Patients having hematocrit values >55% require a special collection tube for coagulation studies. Please contact the laboratory at [phone] for redraw instructions. Alanine aminotransferase [En zymatic activity/volume] in Serum or PlasmaOrdered By: Doe Álvarez on 10-27-2023 ALT [Catalytic activity/Vol] 36 U/L 7-52 [facility] Albumin [Mass/volume] in Ser um or Plasma by Bromocresol green (BCG) dye binding methoOrdered By: Doe Álvarez on 10-27-2023 Albumin BCG dye [Mass/Vol] 4.4 g/dL 3.5-5.7 [facility] Alkaline phosphatase [Enzyma tic activity/volume] in Serum or PlasmaOrdered By: Doe Álvarez on 10-27-2023 ALP [Catalytic activity/Vol] 86 U/L 34-104 [facility] Aspartate aminotransferase [ Enzymatic activity/volume] in Serum or PlasmaOrdered By: Doe Álvarez on 10-27-2023 AST [Catalytic activity/Vol] 60 U/L High 13-39 [facility] Basophils Auto (Bld) [#/Vol] Ordered By: Doe Álvarez on 10-27-2023 Basophils (Bld) [#/Vol] 0.1 10*3/uL 0.0-0.2 [facility] Basophils/100 WBC Auto (Bld) Ordered By: Doe Álvarez 10-27-2023 Basophils/100 WBC (Bld) 1.3 % . [facility] Bilirubin.total [Mass/volume ] in Serum or PlasmaOrdered By: Doe Álvarez on 10-27-2023 Bilirubin [Mass/Vol] 0.7 mg/dL 0.3-1.0 [facility] Calcium [Mass/volume] in Ser um or PlasmaOrdered By: Doe Álvarez 10-27-2023 Calcium [Mass/Vol] 10.0 mg/dL 8.6-10.3 [facility] Carbon dioxide, total [Moles /volume] in Serum or PlasmaOrdered By: Doe Álvarez 10-27-2023 CO2 [Moles/Vol] 21.0 mmol/L 21.0-31.0 [facility] Chloride [Moles/volume] in S carolyne or PlasmaOrdered By: Doe Álvarez on 10-27-2023 Chloride [Moles/Vol] 107 mmol/L 98-107 [facility] Creatine kinase [Enzymatic a ctivity/volume] in Serum or PlasmaOrdered By: Doe Álvarez on 10-27-2023 CK [Catalytic activity/Vol] 74 U/L 30-223 [facility] Creatinine [Mass/volume] in Serum or PlasmaOrdered By: Doe Álvarez on 10-27-2023 Creatinine [Mass/Vol] 1.06 mg/dL 0.60-1.20 [facility] Eosinophils Auto (Bld) [#/Vo l]Ordered By: Doe Álvarez on 10-27-2023 Eosinophils (Bld) [#/Vol] 0.1 10*3/uL 0.0-0.45 [facility] Eosinophils/100 WBC Auto (Bl d)Ordered By: Doe Álvarez on 10-27-2023 Eosinophils/100 WBC (Bld) 0.7 % . [facility] Erythrocyte distribution wid th Auto (RBC) [Ratio]Ordered By: Doe Álvarez on 10-27-2023 Erythrocyte distribution width (RBC) [Ratio] 14.0 % 11.9-15.3 [facility] Globulin Calc (S) [Mass/Vol] Ordered By: Doe Álvarez 10-27-2023 Globulin (S) [Mass/Vol] 2.7 g/dL [facility] Glucose [Mass/volume] in Ser um or PlasmaOrdered By: Doe Álvarez on 10-27-2023 Glucose [Mass/Vol] 166 mg/dL High 70-100 [facility] Comment on above: ADA recommended refe rence rangeRandom Glucose Reference Range is dependent on time and content of last meal. Glucose of more than 200 mg/dL in a nonstressed, ambulatory subject supports the diagnosis of Diabetes Mellitus. Hematocrit Auto (Bld) [Volum e fraction]Ordered By: Doe Álvarez on 10-27-2023 Hematocrit (Bld) [Volume fraction] 42.6 % 34.0-46.4 [facility] Hemoglobin [Mass/volume] in BloodOrdered By: Doe Álvarez on 10-27-2023 Hemoglobin (Bld) [Mass/Vol] 14.5 g/dL 11.8-15.4 [facility] INR in Platelet poor plasma by Coagulation assayOrdered By: Doe Álvarez on 10-27-2023 INR Coag (PPP) [Relative time] 0.9 {INR} [facility] Comment on above: INR Therapeutic [...] with mechanical heart valves: 3 - 4.5 Leukocytes [#/volume] correc kristi for nucleated erythrocytes in Blood by Automated counOrdered By: Doe Álvarez on 10-27-2023 WBC corrected for nucl RBC Auto (Bld) [#/Vol] 8.6 10*3/uL 3.8-11.6 [facility] Lymphocytes Auto (Bld) [#/Vo l]Ordered By: Doe Álvarez on 10-27-2023 Lymphocytes (Bld) [#/Vol] 2.2 10*3/uL 1.00-4.8 [facility] Lymphocytes/100 WBC Auto (Bl d)Ordered By: Doe Álvarez on 10-27-2023 Lymphocytes/100 WBC (Bld) 25.7 % . [facility] MCH Auto (RBC) [Entitic mass ]Ordered By: Doe Álvarez on 10-27-2023 MCH (RBC) [Entitic mass] 32.6 pg 24.7-34.3 [facility] MCHC Auto (RBC) [Mass/Vol]Or dered By: Doe Álvarez on 10-27-2023 MCHC (RBC) [Mass/Vol] 34.1 g/dL 32.0-35.0 [facility] MCV Auto (RBC) [Entitic vol] Ordered By: Doe Álvarez on 10-27-2023 MCV (RBC) [Entitic vol] 95.7 fL 80-100 [facility] Monocyte distribution width [Entitic volume] in Blood by AutomatedOrdered By: Doe Álvarez on 10-27-2023 Monocyte distribution width Auto (Bld) [Entitic vol] 20.20 % High 0.00-20.00 [facility] Comment on above: For adults in ED, MD W > 20.0 may be associated with a higher risk of sepsis during the first 12 hrs of hospital admission Monocytes Auto (Bld) [#/Vol] Ordered By: Doe Álvarez on 10-27-2023 Monocytes (Bld) [#/Vol] 0.7 10*3/uL 0.0-0.8 [facility] Monocytes/100 WBC Auto (Bld) Ordered By: Doe Álvarez on 10-27-2023 Monocytes/100 WBC (Bld) 8.7 % . [facility] Natriuretic peptide B [Mass/ Vol]Ordered By: Doe Álvarez on 10-27-2023 Natriuretic peptide B (Bld) [Mass/Vol] 124.0 pg/mL High 5-100 [facility] Neutrophils Auto (Bld) [#/Vo l]Ordered By: Doe Álvarez on 10-27-2023 Neutrophils (Bld) [#/Vol] 5.5 10*3/uL 1.8-7.7 [facility] Neutrophils/100 WBC Auto (Bl d)Ordered By: Doe Álvarez on 10-27-2023 Neutrophils/100 WBC (Bld) 63.6 % . [facility] No Panel InformationOrdered By: Doe Álvarez on 10-27-2023 Estimated GFR (CKD-EPI) 52.124 mL/Min [facility] Creatinine Clearance (Chem 35.04 [facility] Nucleated erythrocytes [Pres ence] in Blood by Automated countOrdered By: Doe Álvarez on 10-27-2023 Nucleated RBC Auto Ql (Bld) 0.1 /100{WBC} 0-0.5 [facility] Platelet mean volume Auto (B ld) [Entitic vol]Ordered By: Doe Álvarez on 10-27-2023 Platelet mean volume (Bld) [Entitic vol] 7.7 fL 6.3-10.7 [facility] Platelets Auto (Bld) [#/Vol] Ordered By: Doe Álvarez on 10-27-2023 Platelets (Bld) [#/Vol] 294 10*3/uL 150-450 [facility] Potassium [Moles/volume] in Serum or PlasmaOrdered By: Doe Álvarez on 10-27-2023 Potassium [Moles/Vol] 3.7 mmol/L 3.5-5.1 [facility] Protein [Mass/volume] in Ser um or PlasmaOrdered By: Doe Álvarez on 10-27-2023 Protein [Mass/Vol] 7.1 g/dL 6.4-8.9 [facility] Prothrombin time (PT)Ordered By: Doe Álvarez on 10-27-2023 PT Coag (PPP) [Time] 10.7 s 9.0-12.9 [facility] Comment on above: A hematocrit value g reater than 55% may lead to inaccurate results in coagulation testing. Patients having hematocrit values >55% require a special collection tube for coagulation studies. Please contact the laboratory at [phone] for redraw instructions. RBC Auto (Bld) [#/Vol]Ordere d By: Doe Álvarez on 10-27-2023 RBC (Bld) [#/Vol] 4.45 10*6/uL 3.60-5.00 [facility] Serum or plasma albumin/glob ulin mass ratioOrdered By: Doe Álvarez on 10-27-2023 Albumin/Globulin [Mass ratio] 1.6 {ratio} [facility] Serum or plasma anion gap de terminationOrdered By: Doe Álvarez on 10-27-2023 Anion gap [Moles/Vol] 13.7 mmol/L 6.0-15.0 [facility] Sodium [Moles/volume] in Ser um or PlasmaOrdered By: Doe Álvarez on 10-27-2023 Sodium [Moles/Vol] 138 mmol/L 136-145 [facility] Troponin I.cardiac [Mass/vol ume] in Serum or Plasma by Detection limit <= 0.01 ng/Ordered By: Doe Álvarez on 10-27-2023 Troponin I.cardiac DL <= 0.01 ng/mL [Mass/Vol] 10.2 pg/mL 0.0-15.0 [facility] Urea nitrogen [Mass/volume] in Serum or PlasmaOrdered By: Doe Álvarez on 10-27-2023 Urea nitrogen [Mass/Vol] 17 mg/dL 7-25 [facility] WBC Auto (Bld) [#/Vol]Ordere d By: Doe Álvarez on 10-27-2023 WBC (Bld) [#/Vol] 8.6 10*3/uL 3.8-11.6 [facility] [place] [facility] Glucose Glucometer (BldC) [M ass/Vol]Ordered By: Branden Du on 05-06-2023 Glucose [Mass/Vol] 93 mg/dL [facility] [place] [facility] Comment on above: Random Glucose Refer ence Range is dependent on time and content of last meal. Glucose of more than 200 mg/dL in a nonstressed, ambulatory subject supports the diagnosis of Diabetes Mellitus. Urinalysis - DIPSTICKon Appearance (U) clear [employer] Other Bilirubin Ql (U) Negative [employer] Other Color (U) light yellow [place] [employer] by [employer] Other Glucose Ql (U) Negative [employer] Other Hemoglobin Ql (U) Negative [employer] Other Ketones Ql (U) Negative [employer] Other Leukocyte esterase Test strip Ql (U) Negative [employer] Other Nitrite Ql (U) Negative [employer] Other pH (U) 5.0 [pH] [employer] Other Protein Ql (U) Negative [employer] Other Specific gravity (U) [Rel density] 1.005 [employer] Other Urobilinogen (U) [Mass/Vol] 0.5 mg/dL [employer] Other Urinalysis - DIPSTICK [employer] Other CBC AUTO DIFFon 05-21-2022 BASO # 0.0 103/ul Normal 0.0-0.1 [facility] Comment on above: Performed By: #### C BC #### [facility] [address] [place] [address] Dr. Arlyn Chan Basophils/100 WBC (Bld) 0.6 % Normal 0.2-2.0 [facility] Comment on above: Performed By: #### C BC #### [facility] [address] [place] [address] Dr. Arlyn Chan EO # 0.1 103/ul Normal 0.0-0.7 [facility] Comment on above: Performed By: #### C BC #### [facility] [address] [place] [address] Dr. Arlyn Chan Eosinophils/100 WBC (Bld) 1.1 % Normal 0.9-7.0 [facility] Comment on above: Performed By: #### C BC #### [facility] [address] [place] [address] Dr. Arlyn Chan Erythrocyte distribution width (RBC) [Ratio] 13.6 % Normal 11.0-15.0 [facility] Comment on above: Performed By: #### C BC #### [facility] [address] [place] [address] Dr. Arlyn Chan Hematocrit (Bld) [Volume fraction] 44.3 % Normal 36.0-48.0 [facility] Comment on above: Performed By: #### C BC #### [facility] [address] [place] [address] Dr. Arlyn Chan Hemoglobin (Bld) [Mass/Vol] 14.8 g/dL Normal 12.0-16.0 [facility] Comment on above: Performed By: #### C BC #### [facility] [address] [place] [address] Dr. Arlyn Chan IG # 0.00 10e3/ul Normal 0.00-0.03 [facility] Comment on above: Performed By: #### C BC #### [facility] [address] [place] [address] Dr. Arlyn Chan IG % 0.0 % Normal 0.0-0.5 [facility] Comment on above: Performed By: #### C BC #### [facility] [address] [place] [address] Dr. Arlyn Chan LYMPH # 1.7 103/ul Normal 1.2-3.8 [facility] Comment on above: Performed By: #### C BC #### [facility] [address] [place] [address] Dr. Arlyn Chan Lymphocytes/100 WBC (Bld) 31.1 % Normal 20.5-60.0 [facility] Comment on above: Performed By: #### C BC #### [facility] [address] [place] [address] Dr. Arlyn Chan MANUAL DIFF REQ NO Normal [facility] Comment on above: Performed By: #### C BC #### [facility] [address] [place] [address] Dr. Arlyn Chan MCH (RBC) [Entitic mass] 31.9 pg Normal 26.7-34.0 [facility] Comment on above: Performed By: #### C BC #### [facility] [address] [place] [address] Dr. Arlyn Chan MCHC (RBC) [Mass/Vol] 33.4 g/dL Normal 29.9-35.2 [facility] Comment on above: Performed By: #### C BC #### [facility] [address] [place] [address] Dr. Arlyn Chan MCV (RBC) [Entitic vol] 95.5 fL Normal 81.0-99.0 [facility] Comment on above: Performed By: #### C BC #### [facility] [address] [place] [address] Dr. Arlyn Chan MONO # 0.5 103/ul Normal 0.3-0.8 [facility] Comment on above: Performed By: #### C BC #### [facility] [address] [place] [address] Dr. Arlyn Chan Monocytes/100 WBC (Bld) 8.8 % Normal 1.7-12.0 [facility] Comment on above: Performed By: #### C BC #### [facility] [address] [address] [address] Arlyn Chan NEUT # 3.1 103/ul Normal 1.4-6.5 [facility] Comment on above: Performed By: #### C BC #### [facility] [address] [place] [address] Dr. Arlyn Chan Neutrophils/100 WBC (Bld) 58.4 % Normal 43.0-75.0 [facility] Comment on above: Performed By: #### C BC #### [facility] [address] [place] [address] Dr. Arlyn Chan Platelet mean volume (Bld) [Entitic vol] 10.0 fL Normal 9.5-13.5 [facility] Comment on above: Performed By: #### C BC #### [facility] [address] [place] [address] Dr. Arlyn Chan PLT 242 103/ul Normal 150-450 [facility] Comment on above: Performed By: #### C BC #### [facility] [address] [place] [address] Dr. Arlyn Chan RBC 4.64 106/ul Normal 4.20-5.40 [facility] Comment on above: Performed By: #### C BC #### [facility] [address] [place] [address] Dr. Arlyn Chan WBC 5.4 103/ul Normal 4.0-11.0 [facility] Comment on above: Performed By: #### C BC #### [facility] [address] [place] [address] Dr. Arlyn Chan PROF CHEM 8 (BAS METB)on Anion gap [Moles/Vol] 13.9 mmol/L Normal [facility] Comment on above: Performed By: #### H STROPN, BMP #### [facility] [address] [place] [address] Dr. Arlyn Chan Calcium [Mass/Vol] 9.4 mg/dL Normal 8.5-10.1 [facility] Comment on above: Performed By: #### H STROPN, BMP #### [facility] [address] [address] [address] Arlyn Chan Chloride [Moles/Vol] 105 mmol/L Normal 98-107 [facility] Comment on above: Performed By: #### H STROPN, BMP #### [facility] [address] [address] [address] Arlyn Chan CO2 [Moles/Vol] 24.3 mmol/L Normal 21.0-32.0 [facility] Comment on above: Performed By: #### H STROPN, BMP #### [facility] [address] [address] [address] Arlyn Chan Creatinine [Mass/Vol] 0.76 mg/dL Normal 0.55-1.02 [facility] Comment on above: Performed By: #### H STROPN, BMP #### [facility] [address] [address] [address] Arlyn Chan EGFR-AF MONTSERRATIAN >60 Normal >=60 [facility] Comment on above: Performed By: #### H STROPN, BMP #### [facility] [address] [address] [address] Arlyn Chan EGFR-NON AF MONTSERRATIAN >60 Normal >=60 [facility] Comment on above: Performed By: #### H STROPN, BMP #### [facility] [address] [address] [address] Arlyn Chan Glucose [Mass/Vol] 96 mg/dL Normal 74-106 [facility] Comment on above: Performed By: #### H STROPN, BMP #### [facility] [address] [address] [address] Arlyn Chan Potassium [Moles/Vol] 4.2 mmol/L Normal 3.5-5.1 [facility] Comment on above: Performed By: #### H STROPN, BMP #### [facility] [address] [address] [address] Arlyn Chan Sodium [Moles/Vol] 139 mmol/L Normal 136-145 [facility] Comment on above: Performed By: #### H STROPN, BMP #### [facility] [address] [place], [place] [address] Dr. Arlyn Chan Urea nitrogen [Mass/Vol] 21.0 mg/dL Critically high 7.0-18.0 [facility] Comment on above: Performed By: #### H STROPN, BMP #### [facility] [address] [place], [place] [address] Dr. Arlyn Chan Urea nitrogen/Creatinine [Mass ratio] 27.6 mg/mg Normal [facility] Comment on above: Performed By: #### H STROPN, BMP #### [facility] [address] [place], [place] [address] Dr. Arlyn Chan Progress Noteson 05-21-2022 Conservation Policy Analyst Authentication Interface Message Text EMERGENCY TRIAGE, TREAT AND TRANSPORT (ET3) DOCUMENTATION OF TELEHEALTH VISIT Date / Time: 05/21/2022944 Name: Genny Barboza : 1940 SSN: (Not on file) EMS Agency: [facility] [x] Verbal consent obtained [] [...] the typically is not available at a [place] primary care physician's office. Patient declined using ambulance go to the ER, and her daughter who was present on scene will drive her the 4 minutes will take to get to the [place] ER. I advised her to call 911 [...] Completed by: Sudheer Haro MD Normal [facility] TROPONIN, HIGH SENSITIVITYon 05-21-2022 HSTROP 5.9 pg/mL Normal 4.0-51.3 [facility] Comment on above: Result Comment: CUT- OFF POINTS HAVE BEEN ESTABLISHED BASED ON THE FOURTH UNIVERSAL DEFINITIONS OF MYOCARDIAL INFARCTION. THE UPPER REFERENCE LIMIT (URL) OF TROPONIN, DEFINED THE 99TH PERCENTILE OF cTnI DISTRIBUTION IN A REFERENCE POPULATION, HAS BEEN CONFIRMED THE DECISION THRESHOLD FOR [place] DIAGNOSIS. Performed By: #### H YURI, BMP #### [facility] [address] [address] [address] Arlyn Chan MG MAMM SCREEN 3D VINNY CADon 02-08-2022 MG MAMM SCREEN 3D VINNY CAD Patient: GENNY BARBOZA Exam Date: 02/08/2022 : 1940 Gender:F Ordering : DR BRANDEN DU D.O. Admission #: [id number] Family : Order #: [id number] CLICK HERE TO VIEW EXAM RADIOLOGY REPORT [...] bowel resection Family Cancers None LOCATION: [facility] BREAST COMPOSITION: Scattered areas fibroglandular density. [...] MD on 02/08/2022 at 14:06 Normal [facility] CT CHEST WO CONon 08-11-2021 CT [...] SOTO Date: 2021-08-11 17:29 Normal [facility] Vital Signs Date Time Vital Sign Value Performing Clinician Facility 12-03-2024 11:45-0400 Body height 154.94 cm Branden Ball DO Work Phone: [facility] 12-03-2024 11:45-0400 Body mass index (BMI) [Ratio] 26.4 kg/m2 Branden Ball DO Work Phone: [facility] 12-03-2024 11:45-0400 Body weight 63.55 kg Branden Ball DO Work Phone: [facility] 12-03-2024 11:45-0400 Diastolic blood pressure 78 mm[Hg] Branden Ball DO Work Phone: [facility] 12-03-2024 11:45-0400 Heart rate 61 /min Branden Ball DO Work Phone: [facility] 12-03-2024 11:45-0400 Respiratory rate 12 /min Branden Ball DO Work Phone: [facility] 12-03-2024 11:45-0400 Systolic blood pressure 129 mm[Hg] Branden Ball DO Work Phone: [facility] 12-01-2024 13:27-0400 Body height 154.94 cm Branden Ball DO Work Phone: [facility] 12-01-2024 13:27-0400 Body mass index (BMI) [Ratio] 26 kg/m2 Branden Ball DO Work Phone: [facility] 12-01-2024 13:27-0400 Body weight 62.59 kg Branden Ball DO Work Phone: [facility] 12-01-2024 13:27-0400 Diastolic blood pressure 72 mm[Hg] Branden Ball DO Work Phone: [facility] 12-01-2024 13:27-0400 Heart rate 64 /min Branden Ball DO Work Phone: [facility] 12-01-2024 13:27-0400 Systolic blood pressure 111 mm[Hg] Branden Ball DO Work Phone: [facility] 11-23-2024 12:00-0400 Diastolic blood pressure 78 mm[Hg] Branden Ball DO Work Phone: [facility] 11-23-2024 12:00-0400 Heart rate 71 /min Branden Ball DO Work Phone: [facility] 11-23-2024 12:00-0400 Respiratory rate 18 /min Branden Ball DO Work Phone: [facility] 11-23-2024 12:00-0400 SaO2% (BldA) [Mass fraction] 100 % Branden Ball DO Work Phone: [facility] 11-23-2024 12:00-0400 Systolic blood pressure 126 mm[Hg] Branden Ball DO Work Phone: [facility] 11-23-2024 09:00-0400 Body temperature 98 [degF] Branden Ball DO Work Phone: [facility] 11-23-2024 04:26-0400 Body weight 63.8 kg Branden Ball DO Work Phone: [facility] 11-22-2024 23:10-0400 Body height 154.94 cm Branden Ball DO Work Phone: [facility] 11-22-2024 23:10-0400 Body temperature 98 [degF] Branden Ball DO Work Phone: [facility] 11-22-2024 23:10-0400 Body weight 64.4 kg Branden Ball DO Work Phone: [facility] 11-22-2024 23:10-0400 Diastolic blood pressure 75 mm[Hg] Branden Ball DO Work Phone: [facility] 11-22-2024 23:10-0400 Heart rate 64 /min Branden Ball DO Work Phone: [facility] 11-22-2024 23:10-0400 Respiratory rate 18 /min Branden Ball DO Work Phone: [facility] 11-22-2024 23:10-0400 SaO2% (BldA) [Mass fraction] 98 % Branden Ball DO Work Phone: [facility] 11-22-2024 23:10-0400 Systolic blood pressure 138 mm[Hg] Branden Ball DO Work Phone: [facility] 11-19-2024 10:05-0400 Body height 154.94 cm Branden Ball DO Work Phone: [facility] 11-19-2024 10:05-0400 Body mass index (BMI) [Ratio] 26.7 kg/m2 Branden Ball DO Work Phone: [facility] 11-19-2024 10:05-0400 Body weight 64.2 kg Branden Ball DO Work Phone: [facility] 11-16-2024 15:15-0400 Body height 154.94 cm Branden Ball DO Work Phone: [facility] 11-16-2024 15:15-0400 Body mass index (BMI) [Ratio] 27 kg/m2 Branden Ball DO Work Phone: [facility] 11-16-2024 15:15-0400 Body weight 64.92 kg Branden Ball DO Work Phone: [facility] 11-16-2024 15:15-0400 Diastolic blood pressure 81 mm[Hg] Branden Ball DO Work Phone: [facility] 11-16-2024 15:15-0400 Heart rate 78 /min Branden Ball DO Work Phone: [facility] 11-16-2024 15:15-0400 Respiratory rate 12 /min Branden Ball DO Work Phone: [facility] 11-16-2024 15:15-0400 Systolic blood pressure 134 mm[Hg] Branden Ball DO Work Phone: [facility] 11-04-2024 14:04-0400 Body height 154.94 cm Branden Ball DO Work Phone: [facility] 11-04-2024 14:04-0400 Body mass index (BMI) [Ratio] 26.9 kg/m2 Branden Ball DO Work Phone: [facility] 11-04-2024 14:04-0400 Body weight 64.58 kg Branden Ball DO Work Phone: [facility] 11-04-2024 14:04-0400 Diastolic blood pressure 71 mm[Hg] Branden Ball DO Work Phone: [facility] 11-04-2024 14:04-0400 Heart rate 71 /min Branden Ball DO Work Phone: [facility] 11-04-2024 14:04-0400 Respiratory rate 12 /min Branden Ball DO Work Phone: [facility] 11-04-2024 14:04-0400 Systolic blood pressure 112 mm[Hg] Branden Ball DO Work Phone: [facility] 11-03-2024 14:04-0400 Body height 154.9 cm Vanessa Dave [employer]OCK TRACER[employer]MENT STEAMER Work Phone: [facility] 11-03-2024 14:04-0400 Body mass index (BMI) [Ratio] 27.21 kg/m2 Vanessa Dave [employer]OCK TR[employer]ER[employer]MENT [employer]ER Work Phone: [facility] 11-03-2024 14:04-0400 Body weight 65.32 kg Vanessa Dave STOCK TRACER[employer]MENT STEAMER Work Phone: [facility] 11-03-2024 14:04-0400 Diastolic blood pressure 60 mm[Hg] Vanessa Dave STOCK TRACER[employer]MENT STE[employer]ER Work Phone: [facility] 11-03-2024 14:04-0400 Heart rate 60 /min Vanessa Dave [employer]OCK TRACER[employer]MENT [employer]ER Work Phone: [facility] 11-03-2024 14:04-0400 Systolic blood pressure 102 mm[Hg] Vanessa Dave STOCK TRACER[employer]MENT STEAMER Work Phone: [facility] 09-29-2024 14:31-0400 Body height 154.9 cm Vanessa Dave STOCK TRACER[employer]MENT STEAMER Work Phone: [facility] 09-29-2024 14:31-0400 Body mass index (BMI) [Ratio] 26.72 kg/m2 Vanessa Dave [employer]OCK TRACER[employer]MENT [employer]ER Work Phone: [facility] 09-29-2024 14:31-0400 Body weight 64.14 kg Vanessa Dave STOCK TRACER[employer]MENT STEAMER Work Phone: [facility] 09-29-2024 14:31-0400 Diastolic blood pressure 80 mm[Hg] Vanessa Dave STOCK TRACER[employer]MENT STEAMER Work Phone: [facility] 09-29-2024 14:31-0400 Heart rate 64 /min Vanessa Dave STOCK TRACER[employer]MENT STE[employer]ER Work Phone: [facility] 09-29-2024 14:31-0400 Systolic blood pressure 140 mm[Hg] Vanessa Dave STOCK TRACER[employer]MENT STEAMER Work Phone: [facility] 09-29-2024 13:18-0400 Diastolic blood pressure 88 mm[Hg] Branden Ball DO Work Phone: [facility] 09-29-2024 13:18-0400 Systolic blood pressure 152 mm[Hg] Branden Ball DO Work Phone: [facility] 09-29-2024 13:15-0400 Body height 154.94 cm Branden Ball DO Work Phone: [facility] 09-29-2024 13:15-0400 Body mass index (BMI) [Ratio] 26.4 kg/m2 Branden Ball DO Work Phone: [facility] 09-29-2024 13:15-0400 Body weight 63.5 kg Branden Ball DO Work Phone: [facility] 09-29-2024 13:15-0400 Heart rate 60 /min Branden Ball DO Work Phone: [facility] 09-29-2024 13:15-0400 Respiratory rate 20 /min Branden Ball DO Work Phone: [facility] 09-29-2024 13:15-0400 SaO2% (BldA) [Mass fraction] 98 % Branden Ball DO Work Phone: [facility] 08-19-2024 13:31-0400 Body height 154.94 cm [facility] 08-19-2024 13:31-0400 Body mass index (BMI) [Ratio] 26.6 kg/m2 [facility] 08-19-2024 13:31-0400 Body weight 64.12 kg [facility] 08-19-2024 13:31-0400 Diastolic blood pressure 80 mm[Hg] [facility] 08-19-2024 13:31-0400 Heart rate 84 /min [facility] 08-19-2024 13:31-0400 Respiratory rate 12 /min [facility] 08-19-2024 13:31-0400 SaO2% (BldA) [Mass fraction] 99 % [facility] 08-19-2024 13:31-0400 Systolic blood pressure 127 mm[Hg] [facility] 08-05-2024 13:50-0400 Body height 154.9 cm Vanessa Dave STOCK TRACER[employer]MENT STEAMER Work Phone: [facility] 08-05-2024 13:50-0400 Body mass index (BMI) [Ratio] 27.4 kg/m2 Vanessa Dave STOCK TR[employer]ER[employer]MENT [employer]AMER Work Phone: [facility] 08-05-2024 13:50-0400 Body weight 65.77 kg Vanessa Dave STOCK TR[employer]ER[employer]MENT [employer]ER Work Phone: [facility] 08-05-2024 13:50-0400 Diastolic blood pressure 70 mm[Hg] Vanessa Dave STOCK TRACER[employer]ARMENT STEAMER Work Phone: [facility] 08-05-2024 13:50-0400 Heart rate 72 /min Vanessa Dave STOCK TR[employer]ER[employer]MENT [employer]ER Work Phone: [facility] 08-05-2024 13:50-0400 Systolic blood pressure 122 mm[Hg] Vanessa Dave STOCK TRACER[employer]ARMENT STEAMER Work Phone: [facility] 07-20-2024 11:18-0400 Body height 154.94 cm [facility] 07-20-2024 11:18-0400 Body mass index (BMI) [Ratio] 26.4 kg/m2 [facility] 07-20-2024 11:18-0400 Body weight 63.5 kg [facility] 07-20-2024 11:18-0400 Diastolic blood pressure 86 mm[Hg] [facility] 07-20-2024 11:18-0400 Heart rate 63 /min [facility] 07-20-2024 11:18-0400 Systolic blood pressure 138 mm[Hg] [facility] 05-27-2024 11:23-0500 Body height 154.9 cm Inderjit Frausto DO Work Phone: [facility] 05-27-2024 11:23-0500 Body mass index (BMI) [Ratio] 27.02 kg/m2 Inderjit Frausto DO Work Phone: [facility] 05-27-2024 11:23-0500 Body weight 64.86 kg Inderjit Frausto DO Work Phone: [facility] 05-27-2024 11:23-0500 Diastolic blood pressure 72 mm[Hg] Inderjit Frausto DO Work Phone: [facility] 05-27-2024 11:23-0500 Heart rate 60 /min Inderjit Frausto DO Work Phone: [facility] 05-27-2024 11:23-0500 Systolic blood pressure 110 mm[Hg] Inderjit Frausto DO Work Phone: [facility] 05-12-2024 13:38-0500 Body height 154.94 cm [facility] 05-12-2024 13:38-0500 Body mass index (BMI) [Ratio] 26.4 kg/m2 [facility] 05-12-2024 13:38-0500 Body weight 63.5 kg [facility] 05-12-2024 13:38-0500 Diastolic blood pressure 85 mm[Hg] [facility] 05-12-2024 13:38-0500 Heart rate 68 /min [facility] 05-12-2024 13:38-0500 Respiratory rate 12 /min [facility] 05-12-2024 13:38-0500 Systolic blood pressure 128 mm[Hg] [facility] 03-12-2024 10:45-0500 Body height 154.94 cm [facility] 03-12-2024 10:45-0500 Body mass index (BMI) [Ratio] 27 kg/m2 [facility] 03-12-2024 10:45-0500 Body weight 64.86 kg [facility] 03-12-2024 10:45-0500 Diastolic blood pressure 66 mm[Hg] [facility] 03-12-2024 10:45-0500 Heart rate 60 /min [facility] 03-12-2024 10:45-0500 Respiratory rate 20 /min [facility] 03-12-2024 10:45-0500 SaO2% (BldA) [Mass fraction] 98 % [facility] 03-12-2024 10:45-0500 Systolic blood pressure 156 mm[Hg] [facility] 03-11-2024 13:04-0500 Body height 154.94 cm [facility] 03-11-2024 13:04-0500 Body mass index (BMI) [Ratio] 27.8 kg/m2 [facility] 03-11-2024 13:04-0500 Body weight 66.9 kg [facility] 03-09-2024 16:23-0500 Body height 154.94 cm [facility] 03-09-2024 16:23-0500 Body mass index (BMI) [Ratio] 27.8 kg/m2 [facility] 03-09-2024 16:23-0500 Body weight 66.79 kg [facility] 03-09-2024 16:23-0500 Diastolic blood pressure 81 mm[Hg] [facility] 03-09-2024 16:23-0500 Heart rate 70 /min [facility] 03-09-2024 16:23-0500 Respiratory rate 12 /min [facility] 03-09-2024 16:23-0500 Systolic blood pressure 157 mm[Hg] [facility] 12-20-2023 10:40-0400 Body height 154.9 cm Inderjit Frausto DO Work Phone: [facility] 12-20-2023 10:40-0400 Body mass index (BMI) [Ratio] 27.02 kg/m2 Inderjit Frausto DO Work Phone: [facility] 12-20-2023 10:40-0400 Body weight 64.86 kg Inderjit Frausto DO Work Phone: [facility] 12-20-2023 10:40-0400 Diastolic blood pressure 86 mm[Hg] Inderjit Frausto DO Work Phone: [facility] 12-20-2023 10:40-0400 Heart rate 57 /min Inderjit Bacabetina SEGAL Work Phone: [facility] 12-20-2023 10:40-0400 Systolic blood pressure 120 mm[Hg] Inderjit Frausto DO Work Phone: [facility] 12-12-2023 13:21-0400 Body height 154.94 cm FLAKITA Álvarez Work Phone: [facility] 12-12-2023 13:21-0400 Body mass index (BMI) [Ratio] 26.6 kg/m2 FLAKITA Álvarez Work Phone: [facility] 12-12-2023 13:21-0400 Body weight 64 kg FLAKITA Álvarez Work Phone: [facility] 12-04-2023 15:49-0400 Body height 154.94 cm FLAKITA Álvarez Work Phone: [facility] 12-04-2023 15:49-0400 Body mass index (BMI) [Ratio] 26.9 kg/m2 PA-C Doe Álvarez Work Phone: [facility] 12-04-2023 15:49-0400 Body weight 64.58 kg PA-C Doe Álvarez Work Phone: [facility] 12-04-2023 15:49-0400 Diastolic blood pressure 83 mm[Hg] PA-C Doe Álvarez Work Phone: [facility] 12-04-2023 15:49-0400 Heart rate 71 /min PA-C Doe Álvarez Work Phone: [facility] 12-04-2023 15:49-0400 Respiratory rate 12 /min PA-C Doe Álvarez Work Phone: [facility] 12-04-2023 15:49-0400 Systolic blood pressure 151 mm[Hg] PA-C Doe Álvarez Work Phone: [facility] 11-12-2023 11:55-0400 Body height 154.94 cm PA-C Doe Álvarez Work Phone: [facility] 11-12-2023 11:55-0400 Body mass index (BMI) [Ratio] 27.3 kg/m2 PA-C Doe Álvarez Work Phone: [facility] 11-12-2023 11:55-0400 Body weight 65.48 kg PA-C Doe Álvarez Work Phone: [facility] 11-12-2023 11:55-0400 Diastolic blood pressure 84 mm[Hg] PA-C Doe Álvarez Work Phone: [facility] 11-12-2023 11:55-0400 Heart rate 57 /min PA-C Doe Álvarez Work Phone: [facility] 11-12-2023 11:55-0400 Respiratory rate 12 /min PA-C Doe Álvarez Work Phone: [facility] 11-12-2023 11:55-0400 Systolic blood pressure 144 mm[Hg] FLAKITA Álvarez Work Phone: [facility] 11-07-2023 10:05-0400 Body height 154.9 cm Inderjit Frausto DO Work Phone: [facility] 11-07-2023 10:05-0400 Body mass index (BMI) [Ratio] 26.83 kg/m2 Inderjit Frausto DO Work Phone: [facility] 11-07-2023 10:05-0400 Body weight 64.41 kg Inderjit Frausto DO Work Phone: [facility] 11-07-2023 10:05-0400 Diastolic blood pressure 68 mm[Hg] Inderjit Frausto DO Work Phone: [facility] 11-07-2023 10:05-0400 Heart rate 82 /min Inderjit Frausto Work Phone: [facility] 11-07-2023 10:05-0400 Systolic blood pressure 118 mm[Hg] Inderjit Frausto DO Work Phone: [facility] 11-05-2023 11:37-0400 Diastolic blood pressure 61 mm[Hg] FLAKITA Álvarez Work Phone: [facility] 11-05-2023 11:37-0400 Heart rate 63 /min FLAKITA Álvarez Work Phone: [facility] 11-05-2023 11:37-0400 Respiratory rate 20 /min FLAKITA Álvarez Work Phone: [facility] 11-05-2023 11:37-0400 SaO2% (BldA) [Mass fraction] 98 % FLAKITA Álvarez Work Phone: [facility] 11-05-2023 11:37-0400 Systolic blood pressure 143 mm[Hg] FLAKITA Álvarez Work Phone: [facility] 11-05-2023 09:10-0400 Body temperature 97.8 [degF] PA-C Doe Álvarez Work Phone: [facility] 11-05-2023 07:18-0400 Body height 154.94 cm PA-C Doe Álvarez Work Phone: [facility] 11-05-2023 07:18-0400 Body weight 65.77 kg PA-C Doe Álvarez Work Phone: [facility] 10-29-2023 16:00-0400 Body temperature 98.2 [degF] PA-C Doe Álvarez Work Phone: [facility] 10-29-2023 16:00-0400 Diastolic blood pressure 88 mm[Hg] PA-C Doe Álvarez Work Phone: [facility] 10-29-2023 16:00-0400 Heart rate 58 /min PA-C Doe Álvarez Work Phone: [facility] 10-29-2023 16:00-0400 Respiratory rate 16 /min PA-C Doe Álvarez Work Phone: [facility] 10-29-2023 16:00-0400 SaO2% (BldA) [Mass fraction] 96 % PA-C Doe Álvarez Work Phone: [facility] 10-29-2023 16:00-0400 Systolic blood pressure 140 mm[Hg] PA-C Doe Álvarez Work Phone: [facility] 10-29-2023 06:00-0400 Body weight 65.6 kg PA-C Doe Álvarez Work Phone: [facility] 10-29-2023 06:00-0400 Inhaled oxygen flow rate 2 L/min PA-C Doe Álvarez Work Phone: [facility] 10-27-2023 21:42-0400 Body height 154.94 cm PA-C Doe Álvarez Work Phone: [facility] 10-27-2023 19:05-0400 Diastolic blood pressure 64 mm[Hg] PA-C Doe Álvarez Work Phone: [facility] 10-27-2023 19:05-0400 Heart rate 75 /min PA-C Doe Álvarez Work Phone: [facility] 10-27-2023 19:05-0400 Respiratory rate 28 /min PA-C Doe Álvarez Work Phone: [facility] 10-27-2023 19:05-0400 SaO2% (BldA) [Mass fraction] 96 % PA-C Doe Álvarez Work Phone: [facility] 10-27-2023 19:05-0400 Systolic blood pressure 120 mm[Hg] PA-C Doe Álvarez Work Phone: [facility] 10-27-2023 17:31-0400 Body temperature 97.9 [degF] PA-C Doe Álvarez Work Phone: [facility] 10-27-2023 17:11-0400 Body height 154.94 cm PA-C Doe Álvarez Work Phone: [facility] 10-27-2023 17:11-0400 Body weight 66.3 kg PA-Heri Álvarez Work Phone: [facility] 06-20-2023 14:32-0400 Body height 165.1 cm DO Branden Ball Work Phone: [facility] 06-20-2023 14:32-0400 Body mass index (BMI) [Ratio] 24.4 kg/m2 DO Branden Ball Work Phone: [facility] 06-20-2023 14:32-0400 Body weight 66.67 kg DO Branden Ball Work Phone: [facility] 06-20-2023 14:32-0400 Diastolic blood pressure 77 mm[Hg] DO Branden Ball Work Phone: [facility] 06-20-2023 14:32-0400 Heart rate 83 /min DO Branden Ball Work Phone: [facility] 06-20-2023 14:32-0400 Systolic blood pressure 150 mm[Hg] DO Branden Ball Work Phone: [facility] 06-07-2023 09:28-0400 Body height 165.1 cm DO Branden Ball Work Phone: [facility] 06-07-2023 09:28-0400 Body mass index (BMI) [Ratio] 24.6 kg/m2 DO Branden Ball Work Phone: [facility] 06-07-2023 09:28-0400 Body weight 67.18 kg DO Branden Ball Work Phone: [facility] 06-07-2023 09:28-0400 Diastolic blood pressure 87 mm[Hg] DO Branden Ball Work Phone: [facility] 06-07-2023 09:28-0400 Heart rate 77 /min DO Branden Ball Work Phone: [facility] 06-07-2023 09:28-0400 Respiratory rate 12 /min DO Branden Ball Work Phone: [facility] 06-07-2023 09:28-0400 Systolic blood pressure 146 mm[Hg] DO Branden Ball Work Phone: [facility] 05-21-2023 10:24-0500 Body height 165.1 cm DO Branden Ball Work Phone: [facility] 05-21-2023 10:24-0500 Body mass index (BMI) [Ratio] 24.3 kg/m2 DO Branden Ball Work Phone: [facility] 05-21-2023 10:24-0500 Body weight 66.22 kg DO Branden Ball Work Phone: [facility] 05-21-2023 10:24-0500 Diastolic blood pressure 81 mm[Hg] DO Branden Ball Work Phone: [facility] 05-21-2023 10:24-0500 Heart rate 71 /min DO Branden Ball Work Phone: [facility] 05-21-2023 10:24-0500 Respiratory rate 16 /min DO Branden Ball Work Phone: [facility] 05-21-2023 10:24-0500 Systolic blood pressure 131 mm[Hg] DO Branden Ball Work Phone: [facility] 04-12-2023 11:30-0500 Body height 165.1 cm Branden Ball Other [facility] 04-12-2023 11:30-0500 Body mass index (BMI) [Ratio] 24.59 kg/m2 Branden Ball Other [facility] [employer] Other 04-12-2023 11:30-0500 Body weight 67.04 kg Branden Ball Other [facility] 04-12-2023 11:30-0500 Diastolic blood pressure 75 mm[Hg] Branden Ball Other [facility] 04-12-2023 11:30-0500 Respiratory rate 12 /min Branden Ball Other [facility] [employer] Other 04-12-2023 11:30-0500 Systolic blood pressure 122 mm[Hg] Branden Ball Other [facility] 03-26-2023 11:30-0500 Body height 165.1 cm Branden Ball Other [facility] 03-26-2023 11:30-0500 Body mass index (BMI) [Ratio] 24.89 kg/m2 Branden Ball Other [facility] [employer] Other 03-26-2023 11:30-0500 Body weight 67.86 kg Branden Ball Other [facility] [employer] Other 03-26-2023 11:30-0500 Body weight 67.85 kg DO Branden Ball Work Phone: [facility] 03-26-2023 11:30-0500 Diastolic blood pressure 82 mm[Hg] Branden Ball Other [facility] 03-26-2023 11:30-0500 Respiratory rate 12 /min Branden Ball Other [facility] [employer] Other 03-26-2023 11:30-0500 Systolic blood pressure 192 mm[Hg] Branden Ball Other [facility] 02-08-2023 13:30-0500 Body height 165.1 cm Branden Ball Other [facility] 02-08-2023 13:30-0500 Body mass index (BMI) [Ratio] 24.29 kg/m2 Branden Ball Other [facility] [employer] Other 02-08-2023 13:30-0500 Body weight 66.23 kg Branden Ball Other [facility] [employer] Other 02-08-2023 13:30-0500 Body weight 66.22 kg DO Branden Ball Work Phone: [facility] 02-08-2023 13:30-0500 Diastolic blood pressure 79 mm[Hg] Branden Ball Other [facility] 02-08-2023 13:30-0500 Respiratory rate 12 /min Branden Ball Other [facility] [employer] Other 02-08-2023 13:30-0500 Systolic blood pressure 128 mm[Hg] Branden Ball Other [facility] 08-27-2022 11:15-0400 Body height 165.1 cm Branden Ball Other [facility] [employer] Other 08-27-2022 11:15-0400 Body mass index (BMI) [Ratio] 24.06 kg/m2 Branden Ball Other [employer] Other 08-27-2022 11:15-0400 Body weight 65.59 kg Branden Ball Other [employer] Other 08-27-2022 11:15-0400 Diastolic blood pressure 83 mm[Hg] Branden Ball Other [employer] [employer] [facility] [employer] Other 08-27-2022 11:15-0400 Respiratory rate 12 /min Branden Ball Other [employer] [employer] Other 08-27-2022 11:15-0400 Systolic blood pressure 152 mm[Hg] Branden Ball Other [employer] [employer] Other 07-09-2022 15:00-0400 Body height 165.1 cm Branden Ball Other [employer] Other 07-09-2022 15:00-0400 Body mass index (BMI) [Ratio] 23.23 kg/m2 Branden Ball Other [employer] Other 07-09-2022 15:00-0400 Body weight 63.32 kg Branden Ball Other [employer] Other 07-09-2022 15:00-0400 Diastolic blood pressure 72 mm[Hg] Branden Ball Other [employer] Other 07-09-2022 15:00-0400 Respiratory rate 12 /min Branden Ball Other [employer] Other 07-09-2022 15:00-0400 Systolic blood pressure 134 mm[Hg] Branden Ball Other [employer] Other 02-27-2023 15:45-0500 Body height 165.1 cm Branden Ball Other [employer] Other 05-21-2022 15:45-0500 Body mass index (BMI) [Ratio] 24.56 kg/m2 Branden Ball Other [employer] Other 05-21-2022 15:45-0500 Body weight 66.95 kg Branden Ball Other [employer] Other 05-21-2022 15:45-0500 Diastolic blood pressure 82 mm[Hg] Branden Ball Other [employer] Other 05-21-2022 15:45-0500 Respiratory rate 12 /min Branden Ball Other [employer] Other 05-21-2022 15:45-0500 Systolic blood pressure 136 mm[Hg] Branden Ball Other [employer] Other 05-21-2022 09:45-0500 Diastolic blood pressure 92 mm[Hg] [employer] [facility] 05-21-2022 09:45-0500 Heart rate 72 /min [employer] 05-21-2022 09:45-0500 Respiratory rate 18 /min [employer] [facility] 05-21-2022 09:45-0500 SaO2% (BldA) [Mass fraction] 98 % [employer] 05-21-2022 09:45-0500 Systolic blood pressure 181 mm[Hg] [facility] Encounter Date Encounter Type Care Provider Facility Start: 12-14-2024 End: 12-14-2024 ambulatory Branden Du DO Work Phone: [facility] Work Phone: Start: 12-14-2024 End: 12-14-2024 Patient encounter procedure Justus Damon DO -[facility] Work Phone: Start: 12-03-2024 End: 12-03-2024 ambulatory Branden Ball DO Work Phone: [facility] Work Phone: Start: 12-03-2024 End: 12-03-2024 Patient encounter procedure Branden Du DO -[facility] Work Phone: Start: 12-01-2024 End: 12-01-2024 ambulatory Branden Ball DO Work Phone: [facility] Work Phone: Start: 12-01-2024 End: 12-01-2024 Patient encounter procedure Shmuel Rivas [facility] Work Phone: Start: 11-26-2024 Non-patient / Non-visit Maura Debi busch SPUD DRILLER -[facility] Work Phone: Start: 11-22-2024 End: 11-23-2024 ambulatory Benjamin Elias Facility:[facility] Start: 11-22-2024 End: 11-23-2024 Evaluation and management of inpatient Benjamin Elias MD -[facility] Work Phone: Start: 11-22-2024 End: 11-23-2024 observation encounter Branden Du DO Work Phone: [facility] Work Phone: Start: 11-19-2024 End: 11-19-2024 ambulatory Branden Ball DO Work Phone: [facility] Work Phone: Start: 11-19-2024 End: 11-19-2024 Patient encounter procedure Roxane Granda [facility] Work Phone: Start: 11-18-2024 End: 11-18-2024 ambulatory Branden Ball DO Work Phone: [facility] Work Phone: Start: 11-18-2024 End: 11-18-2024 Patient encounter procedure Justus Damon [facility] Work Phone: Start: 11-16-2024 End: 11-16-2024 ambulatory Branden Du DO Work Phone: [facility] Work Phone: Start: 11-16-2024 End: 11-16-2024 Patient encounter procedure Branden Du DO -[facility] Work Phone: Start: 11-09-2024 Non-patient / Non-visit Maura Carrera jo-ann [employer] DRILLER -[facility] Work Phone: Start: 11-04-2024 End: 11-04-2024 ambulatory Branden Ball DO Work Phone: [facility] Work Phone: Start: 11-04-2024 End: 11-04-2024 Patient encounter procedure Branden Du DO -[facility] Work Phone: Start: 11-03-2024 End: 11-03-2024 Office outpatient visit 10 minutes Vanessa Dave [employer]OCK [employer]ACER[employer] Work Phone: [facility] Comment on above: BMI 27.0-27.9,adult (Primary Dx); Essential hypertension; Localized edema Start: 11-03-2024 End: 11-03-2024 ambulatory [facility] Ambulatory Start: 10-03-2024 End: 10-03-2024 ambulatory Branden Du DO Work Phone: [facility] Work Phone: Start: 10-03-2024 End: 10-03-2024 Departed Referred Laurie Mills MD -[facility] Start: 10-03-2024 Non-patient / Non-visit Laurie cervantes MD -[facility] Work Phone: Start: 09-29-2024 End: 09-29-2024 Office outpatient visit 15 minutes Vanessa Dave STOCK TRACER-[employer]MENT [employer]ER Work Phone: [facility] Comment on above: Essential hypertensi on (Primary Dx); Fatigue, unspecified type; BMI 26.0-26.9,adult Start: 09-29-2024 End: 09-29-2024 ambulatory [facility] Start: 09-29-2024 End: 09-29-2024 ambulatory Branden Du DO Work Phone: [facility] Work Phone: Start: 09-29-2024 End: 09-29-2024 Patient encounter procedure Sobia Okeefe MD -[facility] Work Phone: Start: 08-19-2024 End: 08-19-2024 ambulatory [facility] Work Phone: Start: 08-19-2024 End: 08-19-2024 Patient encounter procedure [facility] Phys[facility] Work Phone: Start: 08-05-2024 Non-patient / Non-visit [facility] Phys[facility] Work Phone: Start: 08-05-2024 End: 08-05-2024 Office outpatient visit 25 minutes Vanessa Ahsan Dave STOCK TRACER-[employer]ARMENT STEAMER Work Phone: [facility] Comment on above: Hyperlipidemia, unsp ecified hyperlipidemia type (Primary Dx); Coronary artery disease, unspecified vessel or lesion type, unspecified whether angina present, unspecified whether iliamna or transplanted heart; History of ST elevation myocardial infarction (STEMI); Essential hypertension; BMI 27.0-27.9,adult; Fatigue, unspecified type; Shortness of breath Start: 08-05-2024 End: 08-05-2024 ambulatory [facility] Ambulatory Start: 07-20-2024 End: 07-20-2024 ambulatory [facility] Work Phone: Start: 07-20-2024 End: 07-20-2024 Patient encounter procedure [facility] Work Phone: Start: 05-27-2024 End: 05-27-2024 Office outpatient visit 15 minutes Inderjit Frausto DO Work Phone: [facility] Comment on above: Coronary artery dise ase, unspecified vessel or lesion type, unspecified whether angina present, unspecified whether iliamna or transplanted heart; History of ST elevation myocardial infarction (STEMI); History of PTCA; Hyperlipidemia, unspecified hyperlipidemia type; Essential hypertension; BMI 27.0-27.9,adult; Former smoker Start: 05-27-2024 End: 05-27-2024 ambulatory [facility] Start: 05-12-2024 End: 05-12-2024 ambulatory [facility] Work Phone: Start: 05-12-2024 End: 05-12-2024 Patient encounter procedure [facility] Phys[facility] Work Phone: Start: 04-28-2024 Non-patient / Non-visit [facility] Work Phone: Start: 03-12-2024 End: 03-12-2024 Patient encounter procedure [facility] Work Phone: Start: 03-11-2024 End: 03-11-2024 Patient encounter procedure [facility] Physician [facility] Work Phone: Start: 03-09-2024 End: 03-09-2024 Patient encounter procedure [facility] Work Phone: Start: 03-07-2024 Patient encounter procedure [facility] Start: 03-06-2024 Non-patient / Non-visit [facility] Phys[facility] Work Phone: Start: 12-20-2023 End: 12-20-2023 Office outpatient visit 25 minutes Inderjit Mitul Frausto Work Phone: [facility] Comment on above: Near syncope; Fatigue, unspecified type; History of PTCA; Essential hypertension; History of ST elevation myocardial infarction (STEMI); Shortness of breath; Coronary artery disease, unspecified vessel or lesion type, unspecified whether angina present, unspecified whether iliamna or transplanted heart; Former smoker; BMI 27.0-27.9,adult Start: 12-20-2023 End: 12-20-2023 ambulatory [facility] Start: 12-12-2023 End: 12-12-2023 ambulatory PA-Heri Álvarez Work Phone: [facility] Work Phone: Start: 12-12-2023 End: 12-12-2023 Patient encounter procedure IGNCAIA-Heri Álvarez Work Phone: [facility] Physician [facility] Work Phone: Start: 12-04-2023 End: 12-04-2023 ambulatory PA-Heri Álvarez Work Phone: [facility] Work Phone: Start: 12-04-2023 End: 12-04-2023 Patient encounter procedure FLAKITA Álvarez Work Phone: [facility] Physician [facility] Work Phone: Start: 11-12-2023 End: 11-12-2023 ambulatory IGNACIA-Heri Álvarez Work Phone: [facility] Work Phone: Start: 11-12-2023 End: 11-12-2023 Patient encounter procedure FLAKITA Álvarez Work Phone: [facility] Physician [facility] Work Phone: Start: 11-07-2023 End: 11-07-2023 Transitional care manage srvc 7 day discharge Inderjit Frausto DO Work Phone: [facility] Comment on above: Coronary artery dise ase, unspecified vessel or lesion type, unspecified whether angina present, unspecified whether iliamna or transplanted heart; History of PTCA; History of ST elevation myocardial infarction (STEMI); Shortness of breath; Former smoker; BMI 26.0-26.9,adult; Hyperlipidemia, unspecified hyperlipidemia type Start: 11-05-2023 Non-patient / Non-visit FLAKITA Álvarez Work Phone: [facility] Physician [facility] Work Phone: Start: 11-05-2023 End: 11-05-2023 Emergency department patient visit PA-C Doe Álvarez Work Phone: [facility]-Emergency Room Work Phone: Start: 10-28-2023 Non-patient / Non-visit PA-Heri Álvarez Work Phone: [facility] Pulmonary Disease Work Phone: Start: 10-27-2023 End: 10-29-2023 Evaluation and management of inpatient PA-C Doe Álvarez Work Phone: [facility] Work Phone: Start: 06-20-2023 End: 06-20-2023 ambulatory DO Branden Ball Work Phone: [facility] Work Phone: Start: 06-20-2023 End: 06-20-2023 Patient encounter procedure DO Branden Ball Work Phone: [facility] Physician [facility] Gastroenterology Work Phone: Start: 06-07-2023 End: 06-07-2023 ambulatory DO Branden Ball Work Phone: [facility] Work Phone: Start: 06-07-2023 End: 06-07-2023 Patient encounter procedure DO Branden Ball Work Phone: [facility] Work Phone: Start: 05-21-2023 End: 05-21-2023 Patient encounter procedure DO Branden Ball Work Phone: [facility] Work Phone: Start: 05-06-2023 End: 05-06-2023 ambulatory DO Branden Ball Work Phone: [facility] Work Phone: Start: 05-06-2023 End: 05-06-2023 Patient encounter procedure DO Branden Ball Work Phone: [facility] Work Phone: Start: 04-24-2023 End: 04-24-2023 ambulatory ELENA HASSAN Not Available Start: 04-23-2023 End: 04-23-2023 ambulatory Branden Du Other [employer] Other Start: 04-23-2023 Telephone encounter Branden Du [facility] Start: 04-22-2023 End: 04-22-2023 ambulatory Branden Du Other [employer] Other Start: 04-22-2023 Telephone encounter Branden Du [facility] Start: 04-17-2023 End: 04-17-2023 ambulatory Branden Du Other [employer] Other Start: 04-17-2023 Telephone encounter Branden Ball [facility] Start: 04-12-2023 End: 04-12-2023 ambulatory Branden Du Other [employer] Other Start: 04-12-2023 Office outpatient vi sit 15 minutes Branden Du [facility] Start: 04-12-2023 Telephone encounter Branden Du [facility] Start: 04-12-2023 End: 04-12-2023 Patient encounter procedure DO Branden Du Work Phone: [facility]- Start: 04-08-2023 End: 04-08-2023 ambulatory Branden Du Other [employer] Other Start: 04-08-2023 Telephone encounter Branden Ball [facility] Start: 04-01-2023 End: 04-01-2023 ambulatory Branden Ball Other [place] [facility] [employer] Other Start: 04-01-2023 Telephone encounter Branden Ball [facility] Start: 03-27-2023 End: 03-27-2023 ambulatory Branden Ball Other [place] [facility] [employer] Other Start: 03-27-2023 Telephone encounter Branden Ball [facility] Start: 03-26-2023 End: 03-26-2023 ambulatory Branden Ball Other [place] [facility] [employer] Other Start: 03-26-2023 Office outpatient vi sit 15 minutes Branden Ball [facility] Start: 03-26-2023 End: 03-26-2023 Patient encounter procedure DO Branden Ball Work Phone: [facility] Work Phone: Start: 03-14-2023 End: 03-14-2023 ambulatory Branden Ball Other [place] [facility] [employer] Other Start: 03-14-2023 Telephone encounter Branden Ball [facility] Start: 02-19-2023 End: 02-19-2023 ambulatory Branden Ball Other [place] [facility] [employer] Other Start: 02-19-2023 Telephone encounter Branden Ball [facility] Start: 02-08-2023 End: 02-08-2023 ambulatory Branden Ball Other [place] [facility] [employer] Other Start: 02-08-2023 Patient encounter procedure Branden Ball [facility] Start: 02-08-2023 End: 02-08-2023 Patient encounter procedure DO Branden Ball Work Phone: [facility] Work Phone: Start: 09-20-2022 End: 09-20-2022 ambulatory Branden Ball Other [place] [facility] [employer] Other Start: 09-20-2022 Telephone encounter Branden Ball [facility] Start: 08-27-2022 End: 08-27-2022 ambulatory Branden Ball Other [place] [facility] [employer] Other Start: 08-27-2022 Office outpatient vi sit 15 minutes Branden Ball [facility] Start: 08-24-2022 End: 08-24-2022 ambulatory Branden Du Other [place] [facility] by [employer] Other Start: 08-24-2022 Nursing evaluation o f patient and report Branden Du [facility] Start: 07-09-2022 End: 07-09-2022 ambulatory Branden Du Other [place] [facility] [employer] Other Start: 07-09-2022 Office outpatient vi sit 15 minutes Branden Du [facility] Start: 06-12-2022 End: 06-12-2022 ambulatory Branden Du Other [place] [facility] [employer] Other Start: 06-12-2022 Telephone encounter Branden ALAS [facility] Start: 06-11-2022 End: 06-11-2022 ambulatory Branden [facility] Other [place] [facility] [employer] Other Start: 06-11-2022 Telephone encounter Branden Du [facility] Start: 05-22-2022 End: 05-22-2022 ambulatory Branden Du Other [place] [facility] [employer] Other Start: 05-22-2022 Telephone encounter Branden ALAS [facility] Start: 05-21-2022 Office outpatient vi sit 15 minutes Branden Du [facility] Start: 05-21-2022 End: 05-23-[address] BRANDEN DU Facility:[facility]1 Start: 05-21-2022 End: 05-21-2022 ambulatory [facility] Start: 05-21-2022 End: 05-21-2022 Emergency department patient visit [facility] Triage, Treat and Transport Comment on above: Arrived Start: 05-04-2022 End: 05-04-2022 ambulatory Branden Du Other [place] [facility] [employer] Other Start: 05-04-2022 Telephone encounter Branden ALAS [facility] Start: 05-03-2022 End: 05-03-2022 ambulatory Branden Du Other [facility] [employer] Other Start: 05-03-2022 Telephone encounter [facility]en [facility] Start: 02-08-2022 End: 02-09-[address] BRANDEN DU Facility:[facility]1 Start: 08-11-2021 End: 08-12-[address] BRANDEN DU Facility:[facility]1 Procedures Date Procedure Procedure Detail Performing Clinician Start: 11-22-2024 Supine abdominal X-ray Branden Du DO Work Phone: Start: 10-03-2024 Urine culture Branden Du DO Work Phone: Start: 12-20-2023 Ecg routine ecg w/le ast 12 lds w/i&r Inderjit Frausto DO Work Phone: Start: 11-07-2023 History of percutane ous transluminal coronary angioplasty History of PTCA Inderjit Frausto DO Work Phone: Start: 11-05-2023 CT angiography of thorax PA-C Doe Álvarez Work Phone: Start: 11-05-2023 Plain chest X-ray PA-C Doe Álvarez Work Phone: Start: 10-27-2023 CL Closure Device Placement 0 PA-C Doe Álvarez Work Phone: Start: 10-27-2023 CL LHC & COR Angio PA-C Doe Álvarez Work Phone: Start: 10-27-2023 CL PCI AMI 1st Vesse l RCA SHAILA PA-C Doe Álvarez Work Phone: Start: 10-27-2023 Plain chest X-ray PA-C Doe Álvarez Work Phone: Start: 05-06-2023 Positron emission [...] procedure 01/27/2025 1:00 PM EST Office Visit [address] [place] [address] Vanessa Dave, STOCK TRACER-GARMENT STEAMER [address] [facility] [address] [place], [place] [id number] [facility] Start: 11-23-2024 Influenza vaccination Influenza Vacc ine (#1) [facility] Start: 11-23-2024 [facility] Start: 11-22-2024 Hospital admission [facility] Start: 11-22-2024 End: 11-22-2024 [facility] Start: 11-03-2024 End: 11-03-2024 Patient encounter procedure 11/03/2024 2:00 PM EDT Office Visit [address] [address] Vanessa Dave, STOCK TRACER-GARMENT STEAMER [address] [facility] [address], [facility] [address] [place], [place] [id number] [facility] Start: 11-03-2024 End: 11-03-2026 US.doppler Lower extremity vein - right Vascular US lower extremity venous duplex right Vascular Ultrasound STAT Localized edema Expected: 11/03/2024 (Approximate), Expires: 11/03/2026 [facility] Work Phone: Comment on above: Expected: 11/03/2024 (Approximate), Expires: 11/03/2026 Start: 10-03-2024 Urine culture [facility] Start: 10-03-2024 Bacteria identified in Urine by Culture Urine Culture [facility] Start: 09-08-2024 End: 09-08-2024 Patient encounter procedure 09/08/2024 1:00 PM EDT Office Visit [address] [place] [address] Vanessa Dave, STOCK TRACER-GARMENT STEAMER [address] [place] [address] [facility] Start: 08-05-2024 End: 08-05-2025 Basic metabolic 2000 panel - Serum or Plasma Basic Metabolic Panel Lab Routine Coronary artery disease, unspecified vessel or lesion type, unspecified whether angina present, unspecified whether iliamna or transplanted heart Essential hypertension Fatigue, unspecified type Expected: 08/05/2024 (Approximate), Expires: 08/05/2025 [facility] Work Phone: Comment on above: Expected: 08/05/2024 (Approximate), Expires: 08/05/2025 Start: 08-05-2024 End: 08-05-2025 CBC panel - Blood by Automated count CBC Lab Routine Coronary artery disease, unspecified vessel or lesion type, unspecified whether angina present, unspecified whether iliamna or transplanted heart Essential hypertension Fatigue, unspecified type Expected: 08/05/2024 (Approximate), Expires: 08/05/2025 [facility] Work Phone: Comment on above: Expected: 08/05/2024 (Approximate), Expires: 08/05/2025 Start: 08-05-2024 End: 08-05-2025 Thyrotropin [Units/volume] in Serum or Plasma Thyroid Stimulating Hormone Lab Routine Coronary artery disease, unspecified vessel or lesion type, unspecified whether angina present, unspecified whether iliamna or transplanted heart Essential hypertension Fatigue, unspecified type Expected: 08/05/2024 (Approximate), Expires: 08/05/2025 [facility] Work Phone: Comment on above: Expected: 08/05/2024 (Approximate), Expires: 08/05/2025 Start: 06-03-2024 COVID-19 Vaccine () COVID-19 Vaccine ( season) [facility] Start: 05-27-2024 End: 05-27-2024 Patient encounter procedure 05/27/2024 10:50 AM EST Office Visit [facility] [address] [place] [address] Inderjit Frausto, DO [address] [place] [address] [facility] Start: 03-11-2024 End: 03-11-2024 Patient encounter procedure 03/11/2024 10:40 AM EST Office Visit [facility] [address] [place] [id number] Inderjit Frausto, DO [address] [place] [address] [facility] Start: 11-24-2023 Influenza vaccination Influenza Vacc ine (#1) [facility] Start: 10-29-2023 [facility] Start: 10-27-2023 Consultation [facility] Start: 10-27-2023 Hospital admission [facility] Start: 10-27-2023 Referral to cardiac rehabilitation program [facility] Start: 10-27-2023 [facility] Start: 10-27-2023 End: 10-27-2023 [facility] Start: 10-27-2023 Dilation of Coronary Artery, One Artery with Drug-eluting Intraluminal Device, Percutaneous Approach Dilation of Coronary Artery, One Artery with Drug-eluting Intraluminal Device, Percutaneous Approach [facility] Start: 10-27-2023 Fluoroscopy of Left Heart using Low Osmolar Contrast Fluoroscopy of Left Heart using Low Osmolar Contrast [facility] Start: 10-27-2023 Fluoroscopy of Multi ple Coronary Arteries using Low Osmolar Contrast Fluoroscopy of Multiple Coronary Arteries using Low Osmolar Contrast [facility] Start: 10-27-2023 Measurement of Cardi ac Sampling and Pressure, Left Heart, Percutaneous Approach Measurement of Cardiac Sampling and Pressure, Left Heart, Percutaneous Approach [facility] Start: 05-21-2023 Patient referral [facility] Work Phone: Start: 04-29-2023 COVID-19 Vaccine ( season) COVID-19 Vaccine () [facility] Start: 12-23-2021 Influenza vaccination Influenza Vacc ine (#1) [facility] Start: 2005 Pneumococcal vaccination Pneum ococcal Vaccine(s) (65+ yrs) (1 - PCV) [facility] Start: 2005 Screening for osteoporosis [facility] Start: 1990 Shingles (RZV) Vacci ne (1 of 2) Shingles (RZV) Vaccine (1 of 2) [facility] Start: 1962 DTaP/Tdap/Td Vaccine s (1 - Tdap) DTaP/Tdap/Td Vaccines (1 - Tdap) [facility] Start: 1958 Tetanus + diphtheria + acellular pertussis vaccine (product) Tdap Booster [facility] Start: 04-24-1941 COVID-19 Vaccine (#1) COVID-19 Vacci ne (#1) [facility] Start: 1940 Basic metabolic 2000 panel - Serum or Plasma [facility] Start: 1940 Lipid panel Lipid Panel [facility] Start: 1940 Medicare Annual Well ness Visit Medicare Annual Wellness Visit (AWV) [facility] Start: 1940 Screening for osteoporosis Bone Density Scan [facility] Comprehensive metabo lic 2000 panel - Serum or Plasma [facility] CT Chest WO contrast [facility] WO contrast [facility] DXA Skeletal system.axial Views for bone density [facility] MG Breast - bilatera l Screening [facility] MR Lumbar spine WO a nd W contrast IV [facility] MR Shoulder - right WO contrast [facility] Patient Education [facility] Work Phone: Patient referral [facility] Work Phone: Supine abdominal X-ray [facility] XR Cervical spine Vi ews W flexion and W extension [facility] Immunizations Immunization Date Immunization Notes Care Provider Allie nash 12-03-2024 influenza, high dose seasonal, preservative-free Branden Du DO Work Phone: [facility] 12-05-2023 Moderna COVID-19 vaccine, 12 years and older (50mcg/0.5mL)(Spikevax ) Inderjit Frausto DO Work Phone: [facility] Work Phone: 12-04-2023 influenza, high dose seasonal, preservative-free FLAKITA Álvarez Work Phone: [facility] 12-04-2023 influenza virus vaccine, unspecified formulation Vanessa Dave STOCK TRACER-GARMENT STEAMER Work Phone: [facility] Work Phone: 05-06-2023 zoster vaccine recombinant Inderjit Frausto DO Work Phone: [facility] Work Phone: 12-27-2022 Influenza, Seasonal, Quadrivalent, Adjuvanted Vanessa Dave STOCK TRACER-GARMENT STEAMER Work Phone: [facility] Work Phone: 12-27-2022 Pfizer COVID-19 vaccine, 12 years and older, (30mcg/0.3mL) (Comirnaty) Inderjit Frausto DO Work Phone: [facility] Work Phone: 12-27-2022 RESPIRATORY SYNCYTIA L VIRUS (RSV), ELIGIBLE PTS, 0.5 ML (ABRYSVO) Inderjit Frausto DO Work Phone: [facility] Work Phone: 12-27-2022 influenza virus vaccine, unspecified formulation Inderjit Frausto DO Work Phone: [facility] Work Phone: 08-06-2022 Pneumococcal conjuga te vaccine, 20-valent (PREVNAR 20) Inderjit Frausto DO Work Phone: [facility] Work Phone: 08-06-2022 zoster vaccine recombinant Inderjit Frausto DO Work Phone: [facility] Work Phone: 12-27-2021 Moderna COVID-19 vaccine, bivalent, blue cap/grady label *Check age/dose* Inderjit Frausto DO Work Phone: [facility] 12-13-2021 influenza virus vaccine, split virus (incl. purified surface antigen) Branden Du Other [facility] [employer] Other 12-13-2021 influenza virus vaccine, unspecified formulation DO Branden Du Work Phone: [facility] 12-13-2021 Influenza, Seasonal, Quadrivalent, Adjuvanted Vanessa Dave STOCK TRACER-GARMENT STEAMER Work Phone: [facility] Work Phone: 12-14-2020 influenza virus vaccine, split virus (incl. purified surface antigen) Branden Du Other [facility] [employer] Other 12-14-2020 influenza virus vaccine, unspecified formulation DO Branden Du Work Phone: [facility] 12-14-2020 Seasonal trivalent influenza vaccine, adjuvanted, preservative free Vanessa Dave STOCK TRACER-GARMENT STEAMER Work Phone: [facility] Work Phone: 12-04-2019 influenza virus vaccine, split virus (incl. purified surface antigen) Branden Du Other [employer] [facility] [employer] Other 12-04-2019 influenza virus vaccine, unspecified formulation DO Branden Du Work Phone: [facility] 12-16-2018 influenza virus vaccine, split virus (incl. purified surface antigen) Branden Du Other [place] [facility] [employer] Other 12-16-2018 influenza virus vaccine, unspecified formulation DO Branden Du Work Phone: [facility] 01-15-2018 influenza virus vaccine, split virus (incl. purified surface antigen) Branden Du Other [place] [facility] [employer] Other 01-15-2018 influenza virus vaccine, unspecified formulation DO Branden Du Work Phone: [facility] 01-15-2018 influenza, injectabl e, quadrivalent, contains preservative Vanessa Dave STOCK TRACER-GARMENT STEAMER Work Phone: [facility] Work Phone: 01-12-2017 influenza virus vaccine, split virus (incl. purified surface antigen) Branden Du Other [facility] 01-12-2017 influenza virus vaccine, unspecified formulation DO Branden Du Work Phone: [facility] 12-27-2015 influenza virus vaccine, split virus (incl. purified surface antigen) Branden Du Other [facility] [employer] Other 12-27-2015 influenza virus vaccine, unspecified formulation DO Branden Du Work Phone: [facility] 12-27-2015 influenza, high dose seasonal, preservative-free Inderjit Frausto DO Work Phone: [facility] Work Phone: 01-28-2015 pneumococcal conjuga te vaccine, 13 valent Branden Du Other [facility] 12-16-2014 influenza, high dose seasonal, preservative-free Inderjit Frausto DO Work Phone: [facility] Work Phone: 05-26-2010 zoster vaccine, live Inderjit Frausto DO Work Phone: [facility] Work Phone: 03-08-2009 novel [id number], preservative-free, injectable Vanessa Dave STOCK TRACER-GARMENT STEAMER Work Phone: [facility] Work Phone: Payers Date Payer Category Payer Self-pay 2023 Unknown [id number] 2023 Medicare supplementa l policy (as second payer) [employer] [id number] 2022 Unknown [id number] 2022 Unknown [id number] 2005 Medicare [id number] 1959 Medicare [id number] 1959 Unknown [id number] 1940 Unknown [id number]. [id number] 1940 Unknown [id number]. 2.593 1940 Unknown [id number]. 2.593 1940 Unknown [id number]. 2.732 1940 Unknown [id number] [id number]. 2.1259 1940 Unknown [id number]. 2.1244 1940 Unknown [id number]. 2.1244 1940 Unknown [id number]. 2.1244 1940 Unknown [id number] [id number]. 2.1244 1940 Unknown [id number]. 2.1244 Medicare Medicare [id number] Unknown [id number]. 2.531 Unknown [id number]. 2.531 Social History Date Type Detail Facility Tobacco smoking status TXIS Tobacco smoking consumption unknown [facility] Start: 1940 Sex Assigned At [facility] Start: 12-20-2023 End: 11-03-2024 Sex Assigned At [facility] [employer] Other Start: 1940 Sex Assigned At Female F [facility] Start: 06-20-2023 End: 11-22-2024 Tobacco smoking status TXIS Never smoked tobacco (finding) [facility] Start: 10-27-2023 End: 11-23-2024 Tobacco smoking status TXIS Ex-smoker (finding) [facility] Start: 11-05-2023 Tobacco smoking status TXIS Current some day smoker [facility] Start: 03-25-1956 History of tobacco use Current smoker [facility] Work Phone: Start: 03-25-1956 History of tobacco use Cigarette Smoker [facility] Work Phone: Start: 11-07-2023 End: 11-03-2024 Tobacco use and exposure Smokeless tobacco non-user [facility] Work Phone: Start: 11-07-2023 End: 11-03-2024 Alcoholic beverage intake Current drinker of alcohol (finding) [facility] Work Phone: Start: 10-28-2023 End: 08-05-2024 Exposure to SARS-CoV-2 (event) Not sure [facility] Start: 12-20-2023 End: 11-03-2024 Alcoholic beverage intake [facility] Work Phone: Start: 05-12-2024 End: 08-19-2024 Sex Female (finding) [facility] Start: 02-17-2022 Sex Female [facility] Medical Equipment Procedure Code Equipment Code Equipment Origin al Text Equipment Identifier Dates CL STENT PEDRO FRONTIER 4.0 X 18 FDA Start: 10-27-2023 Femoral artery closure plug/patch, synthetic polymer ([id number] FDA Start: 10-27-2023 CL STENT PEDRO FRONTIER [...] /State Functional Status Date Assessment Result Facility 11-23-2024 Functional status Patient at Baseline [facility] Work Phone: 10-29-2023 Functional status Patient at Baseline [facility] Work Phone: Mental Status Date Assessment Result Facility 11-23-2024 Cognitive function Cognitive Sta tus Patient at Baseline [facility] Work Phone: 10-29-2023 Cognitive function Cognitive Sta tus Patient at Baseline [facility] Work Phone: Clinical Notes 05-04-2022 to 11-23-2024 Note Date & Type Note Facility 11-23-2024 Discharge summary [facility] 11-23-2024 History and physical note Note Date/Time November 23, 2024 1:05am [facility] [address] [place] [address] Hospitalist H&P Signed Patient: Genny Barboza MR#: [id number] : 1940 Acct:[id number] Age/Sex: 84 / F Adm Date: 5 Loc: Room: [address] [place] [address] Type: ADM INOo Attending Dr: Benjamin Elias MD Copies to: MD Branden Bai,~ HPI DATE OF EXAMINATION: 11/22/24 HISTORY OF PRESENT ILLNESS: Patient is a pleasant 84-year-old female, who comes to the Emergency Department with complaints of constipation. She had regular bowel movements for most of her life. In the past she did have resection for colon cancer but that that did not affect her bowel movements. Problem started about 1 year and a half ago. She was seen by GI, diagnosed withIBS and prescribed dicyclomine. About a week and a half ago she fell backwards while pulling weeds in her gardenand injured her back. Trauma workup identified a compression fracture of the lumbar spine, for which she was seen in the office by neurosurgery. Conservative management was advised. Since then, she has been having any more trouble with constipation. She was unable to pass a bowel movement in about a week and a half. She was prescribed MiraLAX, suppositories by [place] [facility] which she took with no result. Then she called Dr. Monk's office who asked her to take the whole bottle of MiraLAX which she did on Saturday. She passed some liquid in small amounts but no regular bowel movement. She eventually presented to the ED today with these complaints. She has no significant abdominal pain or discomfort. No nausea or vomiting. She has no genital area numbness or paresthesia after the fall. Power is good in bilateral lower extremities. Past medical history CAD post PTCA and stent RCA October 2023 Colon cancer resection Colonoscopy July 2023 most recent 10 point review of systems negative except as noted Physical exam Patient seen on the floor Patient appears comfortable, in no distress. Skin is normally colored, no icterus, cyanosis or edema noted. Capillary refill is normal. Joints are without any effusion. Abdomen is soft, benign, no rebound or rigidity. No organomegaly. Bowel sounds present. Rectal exam performed by ED physician showed no stool in the rectal vault. Specifically there was no impaction. Heart regular, no gallop, rub or JVD. Peripheral pulses present bilaterally. Lungs are clear to auscultation, no rales, ronchi or wheezes. HENT normal Neurological: Patient is awake. Cognition is normal. Cranial nerves are intact. Power is symmetric all extremities, with no focal motor deficit identified on a cursory exam. Psych: affect is normal. EKG labs imaging reviewed Assessment and plan 1. Severe constipation. Rectal exam showed no impaction. CT scan abdomen done in [place] about a week ago showed no other abdominal problems apart from severe constipation. Some enemas were given today in our ED with no result. I ordered Senokot oral 2 tablets, 1 Dulcolax suppositories, and 238 g of MiraLAX which she is currently drinking without any problems. Will administer further enemas if needed. Will reevaluate tomorrow, MiraLAX may take 12 to 24 hours to work. Continue treatment for chronic illnesses with home regimen CAD post PTCA and stent RCA October 2023 Colon cancer resection Colonoscopy July 2023 most recent [facility] Medical History Abdominal distention Compression fx, lumbar spine Abdominal pain Cervical spondylosis with radiculopathy Cervical spondylosis MRI: C3-4 mod foraminal stenosis, C4-5 mod foraminal and canal stenosis, C5-6 severe right foraminal stenosis, C7-T1 moderate B/L foraminal narrowing - 10/2024 Seborrheic dermatitis Neck pain Screening mammogram for breast cancer Medicare annual wellness visit, subsequent IBS (irritable bowel syndrome) Nicotine addiction Hypercholesterolemia ASHD (arteriosclerotic heart disease) ST elevation myocardial infarction (STEMI) of inferior wall Lung nodule CT: 1.7cm nodule RLL - 03/2023 PET/CT: no FDG avid nodules - 04/2023, CT: 1.9cm nodule RLL - 06/2023, CT: 2.6cm RLL mass - 02/2024, CT: 2cm RLL nodule - 08/2024 Lung mass Change in bowel habits Rotator cuff arthropathy of right shoulder Tinea corporis Secondary spontaneous pneumothorax Rectovaginal fistula Pulmonary nodule Primary hypertension Nicotine dependence, cigarettes, in remission Muscle mass Lumbar spondylosis Lipoma of right lower extremity History of small bowel obstruction Gastroesophageal reflux disease with esophagitis without hemorrhage Estrogen deficiency COVID Abdominal wall mass Surgical History H/O cardiac catheterization (~10/2023) PCI/stent RCA - 10/27/23 Hx of cataract surgery History of hysterectomy H/O exploratory laparotomy H/O cystoscopy History of colon resection colon cancer H/O colonoscopy (~07/2023) 1996, 2000, 2003, 2006, 2011, 2014, 07/2023 Family History Father Family/Other Legacy FamHx Relation: Migrated Family History Mother Social History Smoking Status: Former smoker Tobacco Type: cigarettes Substance Use Type: None Meds Medications and Allergies Allergies Penicillins Allergy (Unknown, Verified 11/22/24 17:52) Unknown Reaction Home Medications multivitamin 1 tab PO DAILY 06/20/23 [History Confirmed 11/22/24] aspirin 81 mg tablet,delayed release 81 mg PO DAILY 90 days #90 tabs 10/29/23 [Rx Confirmed 11/22/24] atorvastatin 80 mg tablet 80 mg PO QPM 90 days #90 tabs 10/29/23 [Rx Confirmed 11/22/24] nitroglycerin 0.4 mg sublingual tablet 0.4 mg sublingual Q5M PRN Chest Pain 30 days #25 tabs 10/29/23 [Rx Confirmed 11/22/24] losartan 50 mg tablet 50 mg PO BID 12/20/23 [History Confirmed 11/22/24] omeprazole 40 mg capsule,delayed release 40 mg PO DAILY PRN pain 90 days #90 ea 04/10/24 [Rx Confirmed 11/22/24] dicyclomine 20 mg tablet 20 mg PO BID 90 days #180 tabs 07/20/24 [Rx Confirmed 11/22/24] amlodipine 5 mg tablet See Rx Instructions .Route .COMPLEX #30 ea 08/06/24 [Rx Confirmed 11/22/24] carvedilol 6.25 mg tablet 6.25 mg PO BID #60 tabs 09/30/24 [Rx Confirmed 11/22/24] clopidogrel 75 mg tablet 75 mg PO DAILY 11/22/24 [History Confirmed 11/22/24] Exam Physical Exam Vital Signs: Temp Pulse Resp BP Pulse Ox O2 Del Method 98.0 F 64 18 138/75 98 Room Air 11/22/24 23:10 11/22/24 23:10 11/22/24 23:10 11/22/24 23:10 11/22/24 23:10 11/23/24 00:00 Results - Hospitalist H&P Lab Results Labs: Laboratory Last Values Corrected WBC 7.5 X10E3/uL (3.8-11.6) 11/22/24 18:22 Uncorrected WBC Count 7.5 x10E3/uL (3.8-11.6) 11/22/24 18:22 RBC 4.11 x10E6/uL (3.60-5.00) 11/22/24 18:22 Hgb 13.5 g/dL (11.8-15.4) 11/22/24 18:22 Hct 39.0 % (34.0-46.4) 11/22/24 18:22 MCV 94.9 fl (80-100) 11/22/24 18:22 MCH 32.8 pg (24.7-34.3) 11/22/24 18:22 MCHC 34.6 g/dL (32.0-35.0) 11/22/24 18:22 RDW 13.5 % (11.9-15.3) 11/22/24 18:22 Plt Count 290 x10E3/uL (150-450) 11/22/24 18:22 MPV 7.4 fl (6.3-10.7) 11/22/24 18:22 Neut % (Auto) 63.5 % (.) 11/22/24 18:22 Lymph % (Auto) 20.6 % (.) 11/22/24 18:22 Sabine % (Auto) 13.9 % (.) 11/22/24 18:22 Eos % (Auto) 0.9 % (.) 11/22/24 18:22 Baso % (Auto) 1.1 % (.) 11/22/24 18:22 Nucleat RBC Rel Count 0.1 /100 WBC (0-0.5) 11/22/24 18:22 Neut # (Auto) 4.8 x10E3/uL (1.8-7.7) 11/22/24 18:22 Lymph # (Auto) 1.5 x10E3/uL (1.00-4.8) 11/22/24 18:22 Sabine # (Auto) 1.0 x10E3/uL (0.0-0.8) H 11/22/24 18:22 Eos # (Auto) 0.1 x10E3/uL (0.0-0.45) 11/22/24 18:22 Baso # (Auto) 0.1 x10E3/uL (0.0-0.2) 11/22/24 18:22 Monocyte Dist Width 20.64 % (0.00-20.00) H 11/22/24 18:22 PHA Creatinine Clear 40.32 11/22/24 18:22 Sodium 134 mmol/L (136-145) L 11/22/24 18:22 Potassium 3.3 mmol/L (3.5-5.1) L 11/22/24 18:22 Chloride 102 mmol/L (98-107) 11/22/24 18:22 Carbon Dioxide 24.3 mmol/L (21.0-31.0) 11/22/24 18:22 Anion Gap 11.0 mEq/L (6.0-15.0) 11/22/24 18:22 BUN 10 mg/dL (7-25) 11/22/24 18:22 Creatinine 0.89 mg/dL (0.60-1.20) 11/22/24 18:22 Est GFR (CKD-EPI) > 60.0 mL/Min 11/22/24 18:22 Glucose 97 mg/dL (70-100) 11/22/24 18:22 Calcium 9.2 mg/dL (8.6-10.3) 11/22/24 18:22 Total Bilirubin 0.4 mg/dl (0.3-1.0) 11/22/24 18:22 Direct Bilirubin 0.10 mg/dL (0.03-0.18) 11/22/24 18:22 Indirect Bilirubin 0.3 mg/dL 11/22/24 18:22 AST 19 U/L (13-39) 11/22/24 18:22 ALT 21 U/L (7-52) 11/22/24 18:22 Alkaline Phosphatase 147 U/L (34-104) H 11/22/24 18:22 Total Protein 6.7 gm/dL (6.4-8.9) 11/22/24 18:22 Albumin 4.0 gm/dL (3.5-5.7) 11/22/24 18:22 Globulin 2.7 gm/dL 11/22/24 18:22 Albumin/Globulin Ratio 1.5 11/22/24 18:22 Lipase 169.0 U/L (11.0-82.0) H 11/22/24 18:22 Urine Color Colorless (Yellow) 11/22/24 20:09 Urine Appearance Clear (Clear) 11/22/24 20:09 Urine pH 5.5 (5.0-9.0) 11/22/24 20:09 Ur Specific [place] 1.005 (1.001-1.030) 11/22/24 20:09 Urine Protein Negative mg/dL (Negative) 11/22/24 20:09 Urine Glucose (UA) Normal mg/dL (Normal) 11/22/24 20:09 Urine Ketones Negative (Negative) 11/22/24 20:09 Urine Occult Blood Negative (Negative) 11/22/24 20:09 Urine Nitrite Negative (Negative) 11/22/24 20:09 Urine Bilirubin Negative (Negative) 11/22/24 20:09 Urine Urobilinogen Normal mg/dL (Normal) 11/22/24 20:09 Ur Leukocyte Esterase Negative (Negative) 11/22/24 20:09 Assessment & Plan Assessment/Plan (1) Constipation: Plan . IP vs OBS Justification Based on differential dx, clinical care plan, and risk of adverse events, if untreated, in my clinical judgement this patient requires an acute care setting as: OBSERVATION because of an expectation of an under 2 midnight stay. Estimated length of stay (# of days): 1 Documented By: Benjamin Elias MD 11/23/24 0058 Signed By: <Electronically signed by Benjamin Elias MD> 11/23/24 0105 [facility] Work Phone: 1([phone]) 734-534409-01-2025 [place] [address] Hospitalist H&P Signed Patient: Genny Barboza MR#: [id number] : 1940 Acct:[id number] Age/Sex: 84 / F Adm Date: 5 Loc: Room: [address] [place] [address] Type: ADM INOo Attending Dr: Benjamin Elias MD Copies to: MD Branden Bai,DO~ HPI DATE OF EXAMINATION: 11/22/24 HISTORY OF PRESENT ILLNESS: Patient is a pleasant 84-year-old female, who comes to the Emergency Department with complaints of constipation. She had regular bowel movements for most of her life. In the past she did have resection for colon cancer but that that did not affect her bowel movements. Problem started about 1 year and a half ago. She was seen by GI, diagnosed withIBS and prescribed dicyclomine. About a week and a half ago she fell backwards while pulling weeds in her gardenand injured her back. Trauma workup identified a compression fracture of the lumbar spine, for which she was seen in the office by neurosurgery. Conservative management was advised. Since then, she has been having any more trouble with constipation. She was unable to pass a bowel movement in about a week and a half. She was prescribed MiraLAX, suppositories by [facility] which she took with no result. Then she called Dr. Monk's office who asked her to take the whole bottle of MiraLAX which she did on Saturday. She passed some liquid in small amounts but no regular bowel movement. She eventually presented to the ED today with these complaints. She has no significant abdominal pain or discomfort. No nausea or vomiting. She has no genital areanumbness or paresthesia after the fall. Power is good in bilateral lower extremities. Past medical history CAD post PTCA and stent RCA October 2023 Colon cancer resection Colonoscopy July 2023 most recent 10 point review of systems negative except as noted Physical exam Patient seen on the floor Patient appears comfortable, in no distress. Skin is normally colored, no icterus, cyanosis or edema noted. Capillary refill is normal. Joints are without any effusion. Abdomen is soft, benign, no rebound or rigidity. No organomegaly. Bowel sounds present. Rectal examperformed by ED physician showed no stool in the rectal vault. Specifically there was no impaction. Heart regular, no gallop, rub or JVD. Peripheral pulses present bilaterally. Lungs are clear to auscultation, no rales, ronchi or wheezes. HENT normal Neurological: Patient is awake. Cognition is normal. Cranial nerves are intact. Power is symmetric all extremities, with no focal motor deficit identified on a cursory exam. Psych: affect is normal. EKG labs imaging reviewed Assessment and plan 1. Severe constipation. Rectal exam showed no impaction. CT scan abdomen done in [place] about a week ago showed no other abdominal problems apart from severe constipation. Some enemas were given today in our ED with no result. I ordered Senokot oral 2 tablets, 1 Dulcolax suppositories, and 238 g of MiraLAX which she is currently drinking without any problems. Will administer further enemas if needed. Will reevaluate tomorrow, MiraLAX may take 12 to 24 hours to work. Continue treatment for chronic illnesses with home regimen CAD post PTCA and stent RCA October 2023 Colon cancer resection Colonoscopy July 2023 most recent [facility] Medical History Abdominal distention Compression fx, lumbar spine Abdominal pain Cervical spondylosis with radiculopathy Cervical spondylosis MRI: C3-4 mod foraminal stenosis, C4-5 mod foraminal and canal stenosis, C5-6 severe right foraminal stenosis, C7-T1 moderate B/L foraminal narrowing - 10/2024 Seborrheic dermatitis Neck pain Screening mammogram for breast cancer Medicare annual wellness visit, subsequent IBS (irritable bowel syndrome) Nicotine addiction Hypercholesterolemia ASHD (arteriosclerotic heart disease) ST elevation myocardial infarction (STEMI) of inferior wall Lung nodule CT: 1.7cm nodule RLL - 03/2023 PET/CT: no FDG avid nodules - 04/2023, CT: 1.9cm nodule RLL - 06/2023, CT: 2.6cm RLL mass - 02/2024, CT: 2cm RLL nodule - 08/2024 Lung mass Change in bowel habits Rotator cuff arthropathy of right shoulder Tinea corporis Secondary spontaneous pneumothorax Rectovaginal fistula Pulmonary nodule Primary hypertension Nicotine dependence, cigarettes, in remission Muscle mass Lumbar spondylosis Lipoma of right lower extremity History of small bowel obstruction Gastroesophageal reflux disease with esophagitis without hemorrhage Estrogen deficiency COVID Abdominal wall mass Surgical History H/O cardiac catheterization (~10/2023) PCI/stent RCA - 10/27/23 Hx of cataract surgery History of hysterectomy H/O exploratory laparotomy H/O cystoscopy History of colon resection colon cancer H/O colonoscopy (~07/2023) 1996, 2000, 2003, 2006, 2011, 2014, 07/2023 Family History Father Family/Other Legacy FamHx Relation: Migrated Family History Mother Social History Smoking Status: Former smoker Tobacco Type: cigarettes Substance Use Type: None Meds Medications and Allergies Allergies Penicillins Allergy (Unknown, Verified 11/22/24 17:52) Unknown Reaction Home Medications multivitamin 1 tab PO DAILY 06/20/23 [History Confirmed 11/22/24] aspirin 81 mg tablet,delayed release 81 mg PO DAILY 90 days #90 tabs 10/29/23 [Rx Confirmed 11/22/24] atorvastatin 80 mg tablet 80 mg PO QPM 90 days #90 tabs 10/29/23 [Rx Confirmed 11/22/24] nitroglycerin 0.4 mg sublingual tablet 0.4 mg sublingual Q5M PRN Chest Pain 30 days #25 tabs 10/29/23 [Rx Confirmed 11/22/24] losartan 50 mg tablet 50 mg PO BID 12/20/23 [History Confirmed 11/22/24] omeprazole 40 mg capsule,delayed release 40 mg PO DAILY PRN pain 90 days #90 ea 04/10/24 [Rx Confirmed 11/22/24] dicyclomine 20 mg tablet 20 mg PO BID 90 days #180 tabs 07/20/24 [Rx Confirmed 11/22/24] amlodipine 5 mg tablet See Rx Instructions .Route .COMPLEX #30 ea 08/06/24 [Rx Confirmed 11/22/24] carvedilol 6.25 mg tablet 6.25 mg PO BID #60 tabs 09/30/24 [Rx Confirmed 11/22/24] clopidogrel 75 mg tablet 75 mg PO DAILY 11/22/24 [History Confirmed 11/22/24] Exam Physical Exam Vital Signs: Temp Pulse Resp BP Pulse Ox O2 Del Method 98.0 F 64 18 138/75 98 Room Air 11/22/24 23:10 11/22/24 23:10 11/22/24 23:10 11/22/24 23:10 11/22/24 23:10 11/23/24 00:00 Results - Hospitalist H&P Lab Results Labs: Laboratory Last Values Corrected WBC 7.5 X10E3/uL (3.8-11.6) 11/22/24 18:22 Uncorrected WBC Count 7.5 x10E3/uL (3.8-11.6) 11/22/24 18:22 RBC 4.11 x10E6/uL (3.60-5.00) 11/22/24 18:22 Hgb 13.5 g/dL (11.8-15.4) 11/22/24 18:22 Hct 39.0 % (34.0-46.4) 11/22/24 18:22 MCV 94.9 fl (80-100) 11/22/24 18:22 MCH 32.8 pg (24.7-34.3) 11/22/24 18:22 MCHC 34.6 g/dL (32.0-35.0) 11/22/24 18:22 RDW 13.5 % (11.9-15.3) 11/22/24 18:22 Plt Count 290 x10E3/uL (150-450) 11/22/24 18:22 MPV 7.4 fl (6.3-10.7) 11/22/24 18:22 Neut % (Auto) 63.5 % (.) 11/22/24 18:22 Lymph % (Auto) 20.6 % (.) 11/22/24 18:22 Sabine % (Auto) 13.9 % (.) 11/22/24 18:22 Eos % (Auto) 0.9 % (.) 11/22/24 18:22 Baso % (Auto) 1.1 % (.) 11/22/24 18:22 Nucleat RBC Rel Count 0.1 /100 WBC (0-0.5) 11/22/24 18:22 Neut # (Auto) 4.8 x10E3/uL (1.8-7.7) 11/22/24 18:22 Lymph # (Auto) 1.5 x10E3/uL (1.00-4.8) 11/22/24 18:22 [place] # (Auto) 1.0 x10E3/uL (0.0-0.8) H 11/22/24 18:22 Eos # (Auto) 0.1 x10E3/uL (0.0-0.45) 11/22/24 18:22 Baso # (Auto) 0.1 x10E3/uL (0.0-0.2) 11/22/24 18:22 Monocyte Dist Width 20.64 % (0.00-20.00) H 11/22/24 18:22 PHA Creatinine Clear 40.32 11/22/24 18:22 Sodium 134 mmol/L (136-145) L 11/22/24 18:22 Potassium 3.3 mmol/L (3.5-5.1) L 11/22/24 18:22 Chloride 102 mmol/L (98-107) 11/22/24 18:22 Carbon Dioxide 24.3 mmol/L (21.0-31.0) 11/22/24 18:22 Anion Gap 11.0 mEq/L (6.0-15.0) 11/22/24 18:22 BUN 10 mg/dL (7-25) 11/22/24 18:22 Creatinine 0.89 mg/dL (0.60-1.20) 11/22/24 18:22 Est GFR (CKD-EPI) > 60.0 mL/Min 11/22/24 18:22 Glucose 97 mg/dL (70-100) 11/22/24 18:22 Calcium 9.2 mg/dL (8.6-10.3) 11/22/24 18:22 Total Bilirubin 0.4 mg/dl (0.3-1.0) 11/22/24 18:22 Direct Bilirubin 0.10 mg/dL (0.03-0.18) 11/22/24 18:22 Indirect Bilirubin 0.3 mg/dL 11/22/24 18:22 AST 19 U/L (13-39) 11/22/24 18:22 ALT 21 U/L (7-52) 11/22/24 18:22 Alkaline Phosphatase 147 U/L (34-104) H 11/22/24 18:22 Total Protein 6.7 gm/dL (6.4-8.9) 11/22/24 18:22 Albumin 4.0 gm/dL (3.5-5.7) 11/22/24 18:22 Globulin 2.7 gm/dL 11/22/24 18:22 Albumin/Globulin Ratio 1.5 11/22/24 18:22 Lipase 169.0 U/L (11.0-82.0) H 11/22/24 18:22 Urine Color Colorless (Yellow) 11/22/24 20:09 Urine Appearance Clear (Clear) 11/22/24 20:09 Urine pH 5.5 (5.0-9.0) 11/22/24 20:09 Ur Specific [place] 1.005 (1.001-1.030) 11/22/24 20:09 Urine Protein Negative mg/dL (Negative) 11/22/24 20:09 Urine Glucose (UA) Normal mg/dL (Normal) 11/22/24 20:09 Urine Ketones Negative (Negative) 11/22/24 20:09 Urine Occult Blood Negative (Negative) 11/22/24 20:09 Urine Nitrite Negative (Negative) 11/22/24 20:09 Urine Bilirubin Negative (Negative) 11/22/24 20:09 Urine Urobilinogen Normal mg/dL (Normal) 11/22/24 20:09 Ur Leukocyte Esterase Negative (Negative) 11/22/24 20:09 Assessment & Plan Assessment/Plan (1) Constipation: Plan . IP vs OBS Justification Based on differential dx, clinical care plan, and risk of adverse events, if untreated, in my clinical judgement this patient requires an acute care setting as: OBSERVATION because of an expectation of an under 2 midnight stay. Estimated length of stay (# of days): 1 Documented By: Benjamin Elias MD 11/23/24 0058 Signed By: 11/23/24 0105 [facility]08-12-2025 Evaluation + Plan note* Assessment & Plan Note - ROLAND Becerril - 11/03/2024 2:22 PM EDTAssociated Problem(s): Localized edema After flight to [place] has noticed RLE pedal edema and calf pain. Will get USN to rule out DVT [facility] Work Phone: [phone] 568-645608-12-2025 Miscellaneous Notes* Assessment & Plan Note - ROLAND Becerril - 11/03/2024 2:22 PM EDTAssociated Problem(s): Localized edema After flight to [place] has noticed RLE pedal edema and calf pain. Will get USN to rule out DVT [facility] Work Phone: [phone]) [phone] History of Present illness Narrative* ROLAND Becerril - 11/03/2024 2:00 PM EDT [...] home. Otherwise, she just recently traveled to [place] and has noted some right pedal edema, [...] peripheral pulses. No open wounds.Recent travel to [place]. Plan: Through informed decision making process incorporating [...] contact the office if new symptoms arise. [employer]IC as scheduled Vanessa Dave MSN, STOCK TRACER-GARMENT STEAMER, PMHNP-[facility] [place], [place] Please excuse any errors in grammar or translation related to this dictation. Voice recognition software was utilized to prepare this document. documented in this [facility]Fair[facility] Work Phone: [phone]) 212-487908-12-2025 Instructions* Patient Instructions* ROLAND Becerril - 11/03/2024 2:00 [...] contact the office if new symptoms arise. DAIRY EQUIPMENT MECHANIC as scheduled [facility] Work Phone: 1([phone]) 527-552707-09-2025 Evaluation + Plan note* Assessment & Plan Note - ROLAND Becerril - 09/30/2024 8:26 AM EDTAssociated Problem(s): Fatigue July 2024 : presents to [...] we will transition Lopressor over to carvedilol. [facility] Work Phone: [phone] Miscellaneous Notes* Assessment & Plan Note - ROLAND Becerril - 09/30/2024 8:26 AM EDTAssociated Problem(s): Fatigue July 2024 : presents to [...] andtransitioned over to carvedilol. documented in this [facility] Work Phone: [phone]) [phone] Evaluation + Plan note* Assessment & Plan Note - ROLAND Becerril - 09/30/2024 8:25 AM EDTAssociated Problem(s): BMI 26.0-26.9,adult Reviewed the merits of healthy lifestyle choices on overall cardiovascular health. [facility] Work Phone: [phone]) [phone] Evaluation + Plan note* Assessment & Plan Note - ROLAND Becerril - 09/30/2024 8:25 AM EDTAssociated Problem(s): Essential hypertension Her dose of Lopressor was down titrated due to fatigability. Blood pressure is borderline in the office. She was noted to have improvement in fatigue with down titration of Lopressor, will discontinue andtransitioned over to carvedilol. [facility] Work Phone: [phone]) [phone] Evaluation note* Diagnosis Onset Date Resolution Status Admit Date Lung nodule acute September 29 1:13pm Cervical spondylosis with radiculopathy acute November 04 1:56pm Neck pain acute November 04, 2 025 1:56pm Abdominal distention acute 2024 2:40pm Abdominal pain acute October 2:40pm Compression fx, lumbar spine acute November 16, 2024 2:40pm Internal derangement of righ t shoulder acute November 18 11:26am Right shoulder strain acute Oct 11:26am [facility] Work Phone: [phone] 465-141307-08-2025 Evaluation note* Diagnosis Onset Date Resolution Status Admit Date Lung nodule acute September 29 1:13pm Cervical spondylosis with radiculopathy acute November 04 1:56pm Neck pain acute November 04, 2 025 1:56pm Abdominal distention acute 2024 2:40pm Abdominal pain acute October 2:40pm Compression fx, lumbar spine acute November 16, 2024 2:40pm Internal derangement of righ t shoulder acute November 18 11:26am Right shoulder strain acute Aug us2024 11:26am Cervical radiculopathy acute Au yas 2024 9:58am Compression fracture of L1 lumbar vertebra acute November 19 9:58am Right lumbar radiculopathy acute November 19, 2024 9:58am Right shoulder strain acute Aug ust 2024 9:58am [facility] Work Phone: 1([phone] 487-575907-08-2025 Evaluation note* Diagnosis Onset Date Resolution Status Admit Date Lung nodule acute September 29 1:13pm Cervical spondylosis with radiculopathy acute November 04 1:56pm Neck pain acute November 04, 2 025 1:56pm Abdominal distention acute 2024 2:40pm Abdominal pain acute October 2:40pm Compression fx, lumbar spine acute November 16, 2024 2:40pm Internal derangement of righ t shoulder acute November 18 11:26am Right shoulder strain acute Aug ust 2024 11:26am Cervical radiculopathy acute Au yas 2024 9:58am Compression fracture of L1 lumbar vertebra acute November 19 9:58am Right lumbar radiculopathy acute November 19, 2024 9:58am Right shoulder strain acute Aug ust 2024 9:58am Acute hypokalemia acute November 22, 2024 10:23pm Constipation acute November 22, 2024 10:23pm History of colon cancer acute A ugust 2024 10:23pm Primary hypertension acute Augu st 2024 10:23pm [facility] Work Phone: 1([phone]) [phone] Evaluation note* Diagnosis Onset Date Resolution Status Admit Date Lung nodule acute September 29 1:13pm Cervical spondylosis with radiculopathy acute November 04 1:56pm Neck pain acute November 04, 2 025 1:56pm Abdominal distention acute 2024 2:40pm Abdominal pain acute October 2:40pm Compression fx, lumbar spine deleted November 16, 2024 2:40pm Internal derangement of righ t shoulder acute November 18 11:26am Right shoulder strain acute Oct us2024 11:26am Compression fracture of L1 lumbar vertebra acute November 19 9:58am Right lumbar radiculopathy acute November 19, 2024 9:58am Right shoulder strain acute Oct us2024 9:58am Cervical radiculopathy deleted Au [facility] 2024 9:58am Primary hypertension acute 2024 10:23pm Acute hypokalemia resolved November 22, 2024 10:23pm Constipation resolved November 22, 2024 10:23pm History of colon cancer resolved A ugust 2024 10:23pm [facility] Work Phone: 1([phone] 440-209207-08-2025 Evaluation note* Diagnosis Onset Date Resolution Status Admit Date Lung nodule acute September 29 1:13pm Cervical spondylosis with radiculopathy acute November 04 1:56pm Neck pain acute November 04, 2 025 1:56pm Abdominal distention acute 2024 2:40pm Abdominal pain acute October 2:40pm Compression fx, lumbar spine deleted November 16, 2024 2:40pm Internal derangement of righ t shoulder acute November 18 11:26am Right shoulder strain acute Oct us2024 11:26am Compression fracture of L1 lumbar vertebra acute November 19 9:58am Right lumbar radiculopathy acute November 19, 2024 9:58am Right shoulder strain acute Oct us2024 9:58am Cervical radiculopathy deleted Au yas 2024 9:58am Primary hypertension acute Octu 2024 10:23pm Acute hypokalemia resolved November 22, 2024 10:23pm Constipation resolved November 22, 2024 10:23pm History of colon cancer resolved A ugust 2024 10:23pm Alternating constipation and diarrhea acute December 01 025 1:22pm Abdominal pain acute December 03, 2024 11:19am Cervical spondylosis acute Nov 11:19am Compression fracture of L1 lumbar vertebra acute December 03, 2024 11:19am [facility] Work Phone: [phone]) [phone] Evaluation note* Diagnosis Onset Date Resolution Status Admit Date Lung nodule acute September 29 1:13pm Cervical spondylosis with radiculopathy deleted November 04 1:56pm Neck pain deleted November 04 025 1:56pm Abdominal pain acute October 2:40pm Abdominal distention deleted 2024 2:40pm Compression fx, lumbar spine deleted November 16, 2024 2:40pm Internal derangement of righ t shoulder acute November 18 11:26am Right shoulder strain acute Oct us2024 11:26am Compression fracture of L1 lumbar vertebra acute November 19 9:58am Right lumbar radiculopathy acute November 19, 2024 9:58am Right shoulder strain acute Oct us2024 9:58am Cervical radiculopathy deleted [facility] 2024 9:58am Primary hypertension acute 2024 10:23pm Acute hypokalemia resolved November 22, 2024 10:23pm Constipation resolved November 22, 2024 10:23pm History of colon cancer resolved A ugust 2024 10:23pm Alternating constipation and diarrhea acute December 01 2 025 1:22pm Abdominal pain acute December 03, 2024 11:19am ASHD (arteriosclerotic heart disease) acute December 03, 2024 11:19am Cervical spondylosis acute Nov 11:19am Compression fracture of L1 lumbar vertebra acute December 03, 2024 11:19am History of fragility fracture acute December 03, 2024 11:19am IBS (irritable bowel syndrome) acute December 03, 2024 11:19am Internal derangement of righ t shoulder acute December 03, 2024 11:19am Lung nodule acute November 11:19am Primary hypertension acute Sept emb2024 11:19am Internal derangement of righ t shoulder acute December 14, 2024 11:16am Right shoulder strain acute Sep 2024 11:16am [facility] Work Phone: [phone] 109-918007-08-2025 History of Present illness Narrative* Vanessa Dave, STOCK TRACER-GARMENT STEAMER - 09/29/2024 2:30 PM EDT Chief Complaint [...] contact the office if new symptoms arise. 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 Vanessa Dave MSN, STOCK TRACER-GARMENT STEAMER, PMHNP-[facility] [place], [place] Please excuse any errors in grammar or translation related to this dictation. Voice recognition software was utilized to prepare this document. [facility] Work Phone: 1(245) 319-553607-08-2025 Instructions* Patient Instructions* ROLAND Becerril - 09/29/2024 2:30 [...] contact the office if new symptoms arise. 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 [facility] Work Phone: [phone] 419-934705-28-2025 Evaluation note* Diagnosis Onset Date Resolution Status Admit Date Cervical spondylosis acute August 19, 2024 1:30pm Neck pain acute August 19, 2024 1:30pm Seborrheic dermatitis acute August 19, 2024 1:30pm Lung nodule acute September 29 1:13pm Cervical spondylosis with radiculopathy acute November 04 1:56pm Neck pain acute November 04 025 1:56pm [facility] Work Phone: [phone] 459-436305-15-2025 Evaluation + Plan note* Assessment & Plan [...] in from the parking lot without concerns. [facility] Work Phone: [phone]) 880-761305-15-2025 Evaluation + Plan note* Assessment & Plan Note - ROLAND Becerril - 08/06/2024 9:41 AM EDTAssociated Problem(s): Fatigue Presents to the office today with complaints of ongoing fatigability and having no energy . Symptoms started close to 4 weeks ago. Her prior angina symptom was a strange chest sensation and she denies any reoccurrence. [facility] Work Phone: [phone] 154-246305-15-2025 Miscellaneous Notes* Assessment & Plan Note - [...] disease) Oct 26, 2024 Inferior STEMI pRCA PCI/[place] 4 x 18 mm mLAD mild intramyocardial bridging O/p Diag 75% small/moderate vessel OM none EF 60% documented in this [facility] Work Phone: 1(757) 771-773305-15-2025 Evaluation + Plan note* Assessment & Plan Note - ROLAND Becerril - 08/06/2024 9:40 AM EDTAssociated Problem(s): BMI 27.0-27.9,adult Reviewed the merits of healthy lifestyle choices on overall cardiovascular health. [facility] Work Phone: [phone] 201-262405-15-2025 Evaluation + Plan note* Assessment & Plan Note - ROLAND Becerril - 08/06/2024 9:40 AM EDTAssociated Problem(s): Essential hypertension Optimal in office [facility] Work Phone: [phone] Evaluation + Plan note* Assessment & Plan Note - ROLAND Becerril - 08/06/2024 9:40 AM EDTAssociated Problem(s): Hyperlipidemia High intensity statin [facility] Work Phone: [phone]) 202-617605-15-2025 Evaluation + Plan note* Assessment & Plan Note - ROLAND Becerril - 08/06/2024 9:40 AM EDTAssociated Problem(s): CAD (coronary artery disease) Oct 26, 2024 Inferior STEMI pRCA PCI/[place] 4 x 18 mm mLAD mild intramyocardial bridging O/p Diag 75% small/moderate vessel OM none EF 60% [facility] Work Phone: 1(616) 502-557605-14-2025 History of Present illness Narrative* ROLAND Becerril [...] her angina symptom on the day of [place] was just a strange sensation, denies any [...] disease) Oct 26, 2024 Inferior STEMI pRCA PCI/[place] 4 x 18 mm mLAD mild intramyocardial [...] contact the office if new symptoms arise. 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 Vanessa Dave MSN, TINGGARMENT STEAMER, PMHNP-[facility] [place], [place] Please excuse any errors in grammar or translation related to this dictation. Voice recognition software was utilized to prepare this document. documented in this [facility]Fair[facility] Work Phone: 1([phone]) 750-843305-14-2025 Instructions* Patient Instructions* ROLAND Becerril - 08/05/2024 [...] contact the office if new symptoms arise. 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 documented in [facility]Fair[facility] Work Phone: [phone]) [phone] Evaluation note* Diagnosis Onset Date Resolution Status Admit Date Diarrhea acute July 20 10:57am Gastroesophageal reflux dise ase with esophagitis without hemorrhage acute July 20, 2024 10:57am History of colon cancer acute A 2024 10:57am IBS (irritable bowel syndrome) acute July 20, 2024 10:57am Intermittent abdominal pain acute July 20, 2024 10:57am [facility] Work Phone: 1([phone] 181-622204-28-2025 Evaluation note* Diagnosis Onset Date Resolution Status [...] Seborrheic dermatitis acute August 19, 2024 1:30pm [facility] Work Phone: [phone] Evaluation note* Diagnosis Onset Date Resolution Status [...] 1:30pm Lung nodule acute September 29 1:13pm [facility] Work Phone: [phone] 493-989403-05-2025 History of Present illness Narrative* Inderjit Frausto, - 05/27/2024 10:50 AM EST Subjective Genny Barboza is a 83 y.o. female Chief Complaint Follow-up; Coronary Artery Disease 83-year-old female returns for follow-up she is doing very well, she has traveled to [place] in [place] and is getting in 12,000 steps daily. [...] type, unspecified whether angina present, unspecified whether iliamna or transplanted heart Follow Up In Cardiology [...] exam, discussion and plan. documented in this encounterFair[facility] Work Phone: [phone]) 136-421003-05-2025 Instructions* Patient Instructions* Jacque Quesada RN - [...] Provided instructions on exercise. documented in this [facility] Work Phone: [phone]) 439-382702-18-2025 Evaluation note* Diagnosis Onset Date Resolution Status [...] abdominal pain acute July 20, 2024 10:57am [facility] Work Phone: [phone]) 264-238612-16-2024 Evaluation note* Diagnosis Onset Date Resolution Status Admit Date ASHD (arteriosclerotic heart disease) acute March 09, 2 024 3:47pm Hypercholesterolemia acute Dece 2023 3:47pm IBS (irritable bowel syndrome) acute [...] shoulder pain noneactive Febru jaron 2024 1:24pm [facility] Work Phone: 1([phone]) [phone] History of Present illness Narrative* Inderjit Frausto, [...] type, unspecified whether angina present, unspecified whether iliamna or transplanted heart 8. Former smoker 9. [...] exam, discussion and plan. documented in this [facility] Work Phone: [phone]) 823-952309-27-2024 Instructions* Patient Instructions* Jacque Quesada RN - [...] pill each day after. documented in this [facility] Work Phone: 1([phone]) 504-459408-15-2024 History of Present illness Narrative* Inderjit Frausto, DO - 11/07/2023 9:40 AM EDT Subjective [...] type, unspecified whether angina present, unspecified whether iliamna or transplanted heart 2. History of PTCA 3. History of ST elevation myocardial infarction (STEMI) 4. Shortness of breath 5. Former smoker 6. BMI 26.0-26.9,adult 7. Hyperlipidemia, unspecified hyperlipidemia type Scribe Attestation By signing my name below, IKacy LPN, Scribe attest that this documentation has been [...] exam, discussion and plan. documented in this encounterFair[facility] Work Phone: 1(162) [phone] Instructions* Patient Instructions* Kacy Norris LPN - [...] instructions on dietary changes. documented in this [facility] Work Phone: 1(174) 556-332508-05-2024 Consult note Author Sobia Okeefe [facility] October 28, 2023 8:55pm Note Date/Time October 28, 2023 8:5 5pm [facility] [address] [place] [address] Pulmonology Consult Note Signed Patient: Genny Barboza MR#: [id number] 3012 : 1940 Acct:[id number] Age/Sex: 83 / F Adm Date: 4 Loc: Room: [address] [place] [address] Type: ADM IN Attending Dr: Reji Frausto DO Copies to: Branden Du,DO Reji Frausto, DO Sobia Okefee MD~ HPI Date/Time of Consultation: Date of Service: 10/28/2023 Time of Service: 20:50 Consulting Provider: Sobia Okeefe Requesting Provider: Reji Frausto Reason for Consult: ICU support History of Present Illness History of present illness: Ms. 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 Currently on RA, on ASA, Brilinta, BB, statin, ROBIN. Review of Systems Constitutional Constitutional: Reports as per HPI Cardiovascular Cardiovascular: Reports as per HPI and Reports chest pain at rest [facility] Medical History Lung nodule CT: 1.7cm nodule [...] <Electronically signed by Sobia Okeefe MD> 10/28/232054 [facility] Work Phone: 1([phone]) 276-959408-05-2024 Progress note Author Reji Frausto [facility] October 28, 2023 11:54am Note Date/Time October 28, 2023 11: 54am [facility] [address] [place] [address] Cardiology Progress Note Signed Patient: Genny Barboza MR#: [id number] : 1940 Acct:[id number] Age/Sex: 83 / F Adm Date: 4 Loc: Room: [address] [place] [address] Type: ADM IN Attending Dr: Reji Frausto [...] administered under my direction, patient arrived in [facility] at 1756 and underwent primary PCI at [...] critical care time were devoted to ER staff,Alignment Mechanic staff, nursing staff, patient and family both [...] % (Auto) 63.6 Lymph % (Auto) 25.7 Sabine % (Auto) 8.7 Eos % (Auto) 0.7 Baso % (Auto) 1.3 Nucleat RBC Rel Count 0.1 Neut # (Auto) 5.5 Lymph # (Auto) 2.2 Sabine # (Auto) 0.7 Eos # (Auto) 0.1 [...] Troponin I High Sens 10.2 6295.7 H* 07817.3 H* B-Natriuretic Peptide 124.0 H Total Protein [...] % (Auto) 68.0 Lymph % (Auto) 20.4 Sabine % (Auto) 10.2 Eos % (Auto) 0.5 Baso % (Auto) 0.9 Nucleat RBC Rel Count 0.1 Neut # (Auto) 5.7 Lymph # (Auto) 1.7 Sabine # (Auto) 0.9 H Eos # (Auto) [...] Total Creatine Kinase Troponin I High Sens 39935.9 H* 59059.0 H* 42141.4 H* B-Natriuretic Peptide Total Protein Albumin Globulin [...] signed by Reji Frausto DO> 10/28/23 1154 [facility] Work Phone: 1([phone]) 153-285408-04-2024 History and physical note Author Reji Frausto [facility] October 27, 2023 6:21pm Note Date/Time October 27, 2023 5:5 1pm [facility] [address] [place] [address] Cardiology H&P Signed Patient: Genny Barboza MR#: [id number] 3012 : 1940 Acct:[id number] Age/Sex: 83 / F Adm Date: 4 Loc: Room: Type: [facility] Attending Dr: Reji Frausto DO Copies to: [...] administered under my direction, patient arrived in [facility] at 1756 and underwent primary PCI at [...] critical care time were devoted to ER staff,Alignment Mechanic staff, nursing staff, patient and family both pre and post procedurally. Review of Systems Review of Systems All other systems reviewed & are negative unless noted below or in HPI Constitutional Constitutional: Reports as per HPI Cardiovascular Cardiovascular: Reports as per HPI and Reports chest pain at rest [facility] Medical History Lung nodule CT: 1.7cm nodule [...] x10E3/uL Lymph # (Auto) 2.2 (1.00-4.8) x10E3/uL Sabine # (Auto) 0.7 (0.0-0.8) x10E3/uL Eos # [...] results cardiology: sinus rhythm EKG shows: bradycardia [place], pacemaker, normal Myocardial infarction: inferior [place]Y (acute or recent) A&P - Cardiology (1) ST elevation myocardial infarction (STEMI) of inferior wall: Code(s): I21.19 - ST elevation (STEMI) myocardial infarction involving other coronary artery of inferior wall Plan Proceed with emergency cath and PCI Documented By: Reji Frausto DO 10/27/23 1750 Signed By: <Electronically signed by Reji Frausto DO> 10/27/23 1821 [facility] Work Phone: 1([phone]) 749-994408-04-2024 [facility] note[facility] Procedure note[facility]-2024 Procedure note [facility]01-30-2024 Evaluation note* Encounter Date Diagnosis Assessment Notes Treatment Notes Treatment Clinical Notes Mar, Primary hypertension (ICD-10 - I10) [facility] Other 01-29-2024 Evaluation note* Encounter Date Diagnosis Assessment Notes Treatment Notes Treatment Clinical Notes Mar, Lung nodule (ICD-10 - R91.1) [place] [facility] Other 01-24-2024 Evaluation note* Encounter Date Diagnosis Assessment Notes Treatment Notes Treatment Clinical Notes Mar, Lung mass (ICD-10 - R91.8) [place] [facility] Other 01-19-2024 Evaluation note* Encounter Date Diagnosis Assessment Notes Treatment Notes Treatment Clinical Notes Mar, Fall, initial encounter (ICD-10 - W19.XXXA) She denies CP, DASILVA, palpitations or lightheadedness Tripped over her shoe laces Fall precautions Mar, Right arm pain (ICD-10 - M79.601) Not sure how she landed. Ice, heat Mar, Contusion of right upper extremity, initial encounter (ICD-10 - S40.021A) [place] [facility] Other 01-15-2024 Evaluation note* Encounter Date Diagnosis Assessment Notes Treatment Notes Treatment Clinical Notes Mar, Left lower quadrant abdominal pain (ICD-10 - R10.32) Mar, Diarrhea, unspecified type (ICD-10 - R19.7) [place] [facility] Other 01-08-2024 Evaluation note* Encounter Date Diagnosis Assessment Notes Treatment Notes Treatment Clinical Notes Mar, Irritable bowel syndrome without diarrhea (ICD-10 - K58.9) [place] [facility] Other 01-02-2024 Evaluation note* Encounter Date Diagnosis [...] would refer for colonoscopy to exclude colitis [place] Other 12-21-2023 Evaluation note* Encounter Date Diagnosis Assessment Notes Treatment Notes Treatment Clinical Notes Feb, Gastroesophageal ref lux disease with esophagitis without hemorrhage (ICD-10 - K21.00) [place] Other 11-28-2023 Evaluation note* Encounter Date Diagnosis Assessment Notes Treatment Notes Treatment Clinical Notes Jan, Dysuria (ICD-10 - R30.0) [place] [facility] Other 11-17-2023 Evaluation note* Encounter Date Diagnosis [...] patient on monthly SBE and yearly mammograms. [facility] Other 06-29-2023 Evaluation note* Encounter Date Diagnosis Assessment Notes Treatment Notes Treatment Clinical Notes Aug, Primary hypertension (ICD-10 - I10) [place] [facility] Other 06-05-2023 Evaluation note* Encounter Date Diagnosis [...] best 2/3 readings w/ goal < 135-85 [place] [facility] Other 06-02-2023 Evaluation note* Encounter Date Diagnosis Assessment Notes Treatment Notes Treatment Clinical Notes Aug, Dysuria (ICD-10 - R30.0) [place] [facility] Other 04-17-2023 Evaluation note* Encounter Date Diagnosis Assessment Notes Treatment Notes Treatment Clinical Notes Jun, Primary hypertension (ICD-10 - I10) This patient is instructed to consume a healthy, low-fat, low-salt diet. They are also encouraged to continue exercise to achieve/maintain a normal BMI. Jun, Nicotine dependence, cigarettes, in remission (ICD-10 - F17.211) Continue abstinence [place] [facility] Other 03-21-2023 Evaluation note* Encounter Date Diagnosis Assessment Notes Treatment Notes Treatment Clinical Notes May, Primary hypertension (ICD-10 - I10) [place] [facility] Other 03-20-2023 Evaluation note* Encounter Date Diagnosis Assessment Notes Treatment Notes Treatment Clinical Notes May, Primary hypertension (ICD-10 - I10) [place] [facility] Other 02-28-2023 Evaluation note* Encounter Date Diagnosis Assessment Notes Treatment Notes Treatment Clinical Notes Apr, Primary hypertension (ICD-10 - I10) [place] [facility] Other 02-27-2023 Evaluation note* Encounter Date Diagnosis [...] - F17.211) Continue abstinence Apr, Other REo [facility] [facility] Other 02-27-2023 History of Present illness Narrative* Sudheer Haro MD - 05/21/2022 10:00 AM EST Images from the original note were not included. EMERGENCY TRIAGE, TREAT AND TRANSPORT (ET3) DOCUMENTATION OF TELEHEALTH VISIT Date / Time: 05/21/2022944 Name: Genny Barboza : 1940 SSN: (Not on file) EMS Agency: [facility] [x] Verbal consent obtained [] [...] the typically is not available at a [place] primary care physician's office.Patient declined using ambulance go to the ER, and her daughter who was present on scene will driveher the 4 minutes will take to get to the [place] ER. I advised her to call 911 [...] by: Sudheer Haro MD documented in this [id number] Evaluation note* Encounter Date Diagnosis Assessment Notes Treatment Notes Treatment Clinical Notes Apr, Nausea (ICD-10 - R11.0) [place] [facility] Other Discharge summary Author Reji Frausto [facility] October 29, 2023 3:50pm Note Date/Time October 29, 2023 3:4 8pm [facility] [address] [place] [address] Discharge Summary Signed Patient: Genny Barboza MR#: [id number] 3012 : 1940 Acct:[id number] Age/Sex: 83 / F Adm Date: 4 Loc: Room: [address] [place] [address]: Reji Frausto DO Copies to: [...] female presented with acute inferior ST elevation [place] on Friday, October 27, 2023 and underwent rapid revascularization of the proximal RCA with large 4 mm drug-eluting stent within 60 minutes. LV function is preserved. Shedoes have small vessel diagonal branch disease that is going to be treated conservatively. She had no postoperative for post [place] complications, arrhythmia,heart failure or recurrent angina. She will be discharged this afternoon, currently on aspirin 81 daily, [id number] twice daily, metoprolol 25 twice daily, losartan [...] LHC & COR Angio - W Celestino Frausto, p CL PCI AMI 1st Vessel RCA SHAILA - W Celestino Frausto, Complications Complications: None Discharge Plan Discharge Plan [...] doctor or pharmacist, without first calling the promotional model who implanted the stent. If you require [...] weight lifting, stair steppers, etc. until the promotional model approves these activities. Check with the promotional model on your first follow-up visit. CALL YOUR SUPPLIER DEVELOPMENT MANAGER: -If bleeding should occur from the catheter insertion site- apply pressure to the site then immediately call us. -Report any fever, redness, drainage, increased swelling, or firmness at the catheter insertion site. Some bruising or slight swelling may be present at thetime of discharge. -Should arm or leg become cold, numb, white, or blue, contact the promotional model immediately. -IF you should experience episodes of [...] Cardiopulmonary Rehabilitation program is recommended. The attending promotional model or a nurse clinician should provide you with specificinstructions regarding activity, diet, medications, and further follow up for you. Follow the medication instructions provided on your discharge. If the dosages and instructions on this sheet differ from the dosage and instructions on the bottle, follow the instructions on the bottle. [facility] is not responsible for incorrect [...] [id number] Location: Determined by Patient Ordered By: Reij Frausto Follow Up: Reji Frausto DO [Active [...] % (Auto) 73.5, Lymph % (Auto) 15.8, Sabine % (Auto) 9.4, Eos % (Auto) 0.6, Baso % (Auto) 0.7, Nucleat RBC Rel Count 0.1, Neut # (Auto) 5.9, Lymph # (Auto) 1.3, Sabine # (Auto) 0.8, Eos # (Auto) 0.0, Baso # (Auto) 0.1, PHA Creatinine Clear 41.47, Sodium 138, Potassium 4.0, Chloride 109 H, Carbon Dioxide 24.3, Anion Gap 8.7, BUN 17, Creatinine 0.91, Est GFR (CKD-EPI) > 60.0, Glucose 105 H, Calcium 9.3 Documented By: Reji Frausto DO 10/29/23 1543 Signed By: <Electronically signed by Reji Frausto DO> 10/29/23 1550 [facility] Work Phone: Discharge summary Author Mendez Lambert [facility] Note Date/Time November 23, 2024 1:27pm [facility] [address] [place] [address] Discharge Summary Signed Patient: Genny Barboza MR#: [id number] 3012 : 1940 Acct:[id number] Age/Sex: 84 / F Adm Date: 5 Loc: Room: [address] [place] [address]: Mendez Lambert MD Copies to: DO Mendez Soni MD~ Providers Date of Discharge: 11/23/24 Discharging Provider: Mendez Lambert Primary Care Provider: Branden Du Discharge Diagnosis (1) Constipation: Final Diagnosis Final Discharge Diagnosis: 1. Constipation 2. Irritable bowel syndrome who was on dicyclomine Summary Hospital Course Hospital course: Patient is 84-year-old female who had history of colon cancer came to the emergency department with abdominal pain and also constipation. She was in outside hospital with a similar reason and she was sent with magnesium citrate but did not get enough bowel movement that so she came in. She had abdomen and pelvis CT scan which did not show any acute pathology other than stool burden. X-ray KUB is also done which she has the similar findings. She was given MiraLAX, Senokot and docusate. Since then patient had about 5 or 6 bowel movement while she is in the hospital. She was having loose stool. Abdomen waspretty soft. She did not have nausea or vomiting or abdominal pain. She has been taking dicyclomine for her IBS routinely on a daily basis scheduled. She was advised to take the medicine as needed basis. Most likely her constipation was due to anticholinergic effect of dicyclomine. On the day of discharge patient was at baseline. Vital signs were stable. Physical exam was benign. The details of the hospital stay, hospital course, lab data, imaging studies, and consultants' recommendations can be found in the EHR of [facility]. The patient left hospital appropriately in stable condition. Patient has follow-up appointment with PCP in 7 days from the day of discharge. Condition Condition at Discharge: Stable Time Spent with Patient Time spent providing/coordinating discharge services (# min): 23 Discharge Plan Discharge Plan Patient Disposition: Home Activity: No Activity Restriction and Ambulate as Tolerated Diet: Low-Fat, Low-Sodium and Low-Cholesterol Comment: More fiber and fluids Instructions: Know your Meds Prescriptions: New polyethylene glycol 3350 [Miralax] 17 gram/dose powder 17 g PO DAILY PRN (Reason: constipation) Qty: 510 0RF Continued losartan 50 mg tablet 50 mg PO BID omeprazole 40 mg capsule,delayed release(DR/EC) 40 mg PO DAILY PRN (Reason: pain) 90 Days Qty: 90 3RF amlodipine 5 mg tablet See Rx Instructions .ROUTE .COMPLEX Qty: 30 11RF Dose Instruction: TAKE ONE TABLET BY MOUTH DAILY Rx Instructions: TAKE ONE TABLET BY MOUTH DAILY carvedilol 6.25 mg tablet 6.25 mg PO BID Qty: 60 0RF Rx Instructions: must administer with a meal/food clopidogrel 75 mg tablet 75 mg PO DAILY atorvastatin 80 mg Tablet 80 mg PO QPM 90 Days Qty: 90 3RF aspirin 81 mg Tablet,Delayed Release (Dr/Ec) 81 mg PO DAILY 90 Days Qty: 90 3RF nitroglycerin 0.4 mg Tablet, Sublingual 0.4 mg sublingual Q5M PRN (Reason: Chest Pain) 30 Days Qty: 25 3RF multivitamin Tablet 1 tab PO DAILY Discontinued dicyclomine 20 mg tablet 20 mg PO BID 90 Days Qty: 180 3RF Continuity of Care Document Health Concerns: A [facility] screening has identified you as FRAIL or AT RISK FOR FRAILTY. This puts you at a higher risk for infection, illness, falls, and other injuries. Here are four ways to help you reduce your risk of frailty: 1. IDENTIFY EARLY SIGNS OF FRAILTY ? Discuss contributing factors and concerns with your doctor 2. BE ACTIVE ? Walking and light strengthening exercises will help reduce weakness 3. EAT WELL ? Aim for three healthy meals a day that are high in protein 4. THINK POSITIVE ? Keep your mind active by being sociable and continuing to learn References: Stay Strong: Four Ways to Beat the Frailty Risk [email or web address]-[email or web address]- ways- zs-hwxo-snw-frailty-risk Exam Physical Exam Vital Signs: Temp Pulse Resp BP Pulse Ox O2 Del Method 98.0 F 71 18 118/76 100 Room Air 11/23/24 09:00 11/23/24 09:00 11/23/24 09:00 11/23/24 09:00 11/23/24 09:00 11/23/24 09:00 Diagnostic Studies Completed and Pending Studies Labs on day of discharge: 11/22/24 20:09: Urine Color Colorless, Urine Appearance Clear, Urine pH 5.5, Ur Specific [place] 1.005, Urine Protein Negative, Urine Glucose (UA) Normal, Urine Ketones Negative, Urine Occult Blood Negative, Urine Nitrite Negative, Urine Bilirubin Negative, Urine Urobilinogen Normal, Ur Leukocyte Esterase Negative 11/22/24 18:22: Corrected WBC 7.5, Uncorrected WBC Count 7.5, RBC 4.11, Hgb 13.5, Hct 39.0, MCV 94.9, MCH 32.8, MCHC 34.6, RDW 13.5, Plt Count 290, MPV 7.4, Neut % (Auto) 63.5, Lymph % (Auto) 20.6, Sabine % (Auto) 13.9, Eos % (Auto) 0.9, Baso % (Auto) 1.1, Nucleat RBC Rel Count 0.1, Neut # (Auto) 4.8, Lymph # (Auto) 1.5, Sabine # (Auto) 1.0 H, Eos # (Auto) 0.1, Baso # (Auto) 0.1, Monocyte Dist Width 20.64 H, PHA Creatinine Clear 40.32, Sodium 134 L, Potassium 3.3 L, Chloride 102, Carbon Dioxide 24.3, Anion Gap 11.0, BUN 10, Creatinine 0.89, Est GFR (CKD-EPI) > 60.0, Glucose 97, Calcium 9.2, Total Bilirubin 0.4, Direct Bilirubin 0.10, Indirect Bilirubin 0.3, AST 19, ALT 21, Alkaline Phosphatase 147 H, Total Protein 6.7, Albumin 4.0, Globulin 2.7, Albumin/Globulin Ratio 1.5, Lipase 169.0 H Documented By: Mendez Lambert MD 11/23/24 1324 Signed By: <Electronically signed by Mendez Lambert MD> 11/23/24 1327 [facility] Work Phone: Evaluation note* Diagnosis Hypertensive urgency- Primary [facility] InformationNort [employer] Other Evaluation noteNo assessment information available [facility] Work Phone: Evaluation note* Diagnosis Onset Date Resolution Status Change in bowel habits acute Primary hypertension acute Rotator cuff arthropathy of right shoulder acute Hx of malignant neoplasm of colon noneactive Pain in right shoulder nonea ctive [facility] Work Phone: Evaluation note* Diagnosis Onset Date Resolution Status Change in bowel habits acute Primary hypertension acute Rotator cuff arthropathy of right shoulder acute Hx of malignant neoplasm of colon noneactive Pain in right shoulder nonea ctive Primary hypertension acute Rotator cuff arthropathy of right shoulder acute Pain in right shoulder nonea ctive Change in bowel habits acute [facility] Work Phone: Evaluation note* Diagnosis Onset Date Resolution Status ST elevation myocardial infa rction (STEMI) of inferior wall acute [facility] Work Phone: Evaluation note* Diagnosis Onset Date Resolution Status ASHD (arteriosclerotic heart disease) acute Hypercholesterolemia acute Lung nodule acute Medication side effects acut e Nicotine addiction acute Primary hypertension acute Shortness of breath acute [facility] Work Phone: Evaluation note* Diagnosis Onset Date Resolution Status ASHD (arteriosclerotic heart disease) acute Hypercholesterolemia acute IBS (irritable bowel syndrome) acute Lung nodule acute Nicotine addiction acute Primary hypertension acute ASHD (arteriosclerotic heart disease) acute Hypercholesterolemia acute IBS (irritable bowel syndrome) acute Primary hypertension acute [facility] Work Phone: Evaluation note* Diagnosis Onset [...] bowel syndrome) acute Intermittent abdominal pain acute [facility] Work Phone: Evaluation note* Diagnosis Coronary artery disease, unspecified vessel or lesion type, unspecified whether angina present, unspecified whether iliamna or transplanted heart History of PTCA Postsurgical percutaneous transluminal coronary angioplasty status History of ST elevation myocardial infarction (STEMI) Shortness of breath Former smoker Personal history of tobacco use, presenting hazards to health BMI 26.0-26.9,adult Hyperlipidemia, unspecified hyperlipidemia type documented in this encounter [facility] Work Phone: Evaluation note* Diagnosis Near syncope Fatigue, unspecified type History of PTCA Postsurgical percutaneous transluminal coronary angioplasty status Essential hypertension Unspecified essential hypertension History of ST elevation myocardial infarction (STEMI) Shortness of breath Coronary artery disease, unspecified vessel or lesion type, unspecified whether angina present, unspecified whether iliamna or transplanted heart Former smoker Personal history of tobacco use, presenting hazards to health BMI 27.0-27.9,adult documented in this encounter [facility] Work Phone: Evaluation note* Diagnosis Coronary artery disease, unspecified vessel or lesion type, unspecified whether angina present, unspecified whether iliamna or transplanted heart History of ST elevation myocardial infarction (STEMI) History of PTCA Postsurgical percutaneous transluminal coronary angioplasty status Hyperlipidemia, unspecified hyperlipidemia type Essential hypertension Unspecified essential hypertension BMI 27.0-27.9,adult Former smoker Personal history of tobacco use, presenting hazards to health documented in this encounter [facility] Work Phone: Evaluation note* Diagnosis Hyperlipidemia, unspecified hyperlipidemia type- Primary Coronary artery disease, unspecified vessel or lesion type, unspecified whether angina present, unspecified whether iliamna or transplanted heart History of ST elevation myocardial infarction (STEMI) Essential hypertension Unspecified essential hypertension BMI 27.0-27.9,adult Fatigue, unspecified type Shortness of breath documented in this encounter [facility] Work Phone: Evaluation note* Diagnosis Hyperlipidemia, unspecified hyperlipidemia type- Primary Coronary artery disease, unspecified vessel or lesion type, unspecified whether angina present, unspecified whether iliamna or transplanted heart History of ST elevation myocardial infarction (STEMI) Essential hypertension Unspecified essential hypertension BMI 27.0-27.9,adult Fatigue, unspecified type Shortness of breath Essential hypertension- Primary Unspecified essential hypertension Fatigue, unspecified type BMI 26.0-26.9,adult documented in this encounter [facility] Work Phone: Evaluation note* Diagnosis Hyperlipidemia, unspecified hyperlipidemia type- Primary Coronary artery disease, unspecified vessel or lesion type, unspecified whether angina present, unspecified whether iliamna or transplanted heart History of ST elevation myocardial infarction (STEMI) Essential hypertension Unspecified essential hypertension BMI 27.0-27.9,adult Fatigue, unspecified type Shortness of breath Essential hypertension- Primary Unspecified essential hypertension Fatigue, unspecified type BMI 26.0-26.9,adult BMI 27.0-27.9,adult- Primary Essential hypertension Unspecified essential hypertension Localized edema Edema documented in this encounter [facility] Work Phone: History and physical note Author Reji Frausto [facility] October 27, 2023 6:21pm Note Date/Time October 27, 2023 5:5 1pm [facility] [address] [place] [address] Cardiology H&P Signed Patient: Genny Barboza MR#: [id number] : 1940 Acct:[id number] Age/Sex: 83 / F Adm Date: 4 Loc: CL Room: Type: [facility] Attending Dr: Reji Frausto DO Copies to: DO Reji Soni, ~ [...] administered under my direction, patient arrived in [facility] at 1756 and underwent primary PCI at [...] critical care time were devoted to ER staff,[facility] staff, nursing staff, patient and family both pre and post procedurally. Review of Systems Review of Systems All other systems reviewed & are negative unless noted below or in HPI Constitutional Constitutional: Reports as per HPI Cardiovascular Cardiovascular: Reports as per HPI and Reports chest pain at rest [facility] Medical History Lung nodule CT: 1.7cm nodule [...] x10E3/uL Lymph # (Auto) 2.2 (1.00-4.8) x10E3/uL Sabine # (Auto) 0.7 (0.0-0.8) x10E3/uL Eos # [...] results cardiology: sinus rhythm EKG shows: bradycardia [place], pacemaker, normal Myocardial infarction: inferior [place] (acute or recent) A&P - Cardiology (1) ST elevation myocardial infarction (STEMI) of inferior wall: Code(s): I21.19 - ST elevation (STEMI) myocardial infarction involving other coronary artery of inferior wall Plan Proceed with emergency cath and PCI Documented By: Reji Frausto DO 10/27/23 1750 Signed By: <Electronically signed by Reji Frausto DO> 10/27/23 1821 [facility] Work Phone: History general Narrative [...] History CYSTOSCOPY Hospitalization History SEE SURGICAL HX [facility] Discharge instructions Additional Instructions We evaluated you for your shortness of breath. We discussed this is most likely due to your Brilinta. Please see your promotional model this afternoon at your previously scheduled appointment. Please follow close with your primary care doctor as well. Please return to the emergency department if you develop any worsening or concerning symptoms.[facility] Work Phone: Reason for referral (narrative)* Consultation (Routine) - Authorized Specialty Diagnoses / Procedures Referred By Jamel murphy Referred To Contact Cardiology Diagnoses Coronary artery disease, unspecified vessel or lesion type, unspecified whether angina present, unspecified whether iliamna or transplanted heart Procedures Follow Up In Cardiology Inderjit Frausto DO [address] [place] [address], [address] [address] Inderjit Frausto DO [address] [place] [address], [address] [address] Referral ID Status Reason Start Date Expiration Date V isits Requested Visits Authorized [id number] Authorized 11/07/2023 11/06/2024 1 1 * Consultation (Routine) - Authorized Specialty Diagnoses / Procedures Referred By Contac t Referred To Contact Cardiac Rehabilitation Diagnoses Coronary artery disease, unspecified vessel or lesion type, unspecified whether angina present, unspecified whether iliamna or transplanted heart History of PTCA History of ST elevation myocardial infarction (STEMI) Inderjit Frausto DO [address] [facility] [address] [place] [address] Referral ID Status Reason Start Date Expiration Date Visits Requested Visits Authorized [id number] Authorized Specialty Services Required 11/07/2023 11/06/2024 1 1 Scheduling Instructions [facility] Work Phone: Reason for referral (narrative)No reason for [facility] Work [facility]: Summary Purpose Family History [...] Neck pain November 04, 2024 1: 56pm Chief Complaint Admit Date HIGH RISK-rash on scalp/neck pain August 192024 1:30pm CEA: 6 mo f/u Abn CT September 29, 2024 1:13 pm Unknown October 03, 2024 4:46 pm MRI results November 04, 2024 1: 56pm Amb Documentation November 09, 2024 11 :45am stomach extended November 16, 2024 2: 40pm Chief Complaint Admit Date CEA: 6 mo f/u Abn CT September 29, 2024 1:13 pm Unknown October 03, 2024 4:46 pm MRI results November 04, 2024 1: 56pm Amb Documentation November 09, 2024 11 :45am stomach extended November 16, 2024 2: 40pm ER [facility] RT SHOULDER INJURY WX October 11:26am Reason for Visit Admit Date Lung nodule September 29, 2024 1:13p m Cervical spondylosis with radiculopathy November 04, 2024 1:56pm Neck pain November 04, 2024 1: 56pm Abdominal distention November 16, 2024 2 :40pm Abdominal pain November 16, 2024 2: 40pm Compression fx, lumbar spine October 2:40pm Internal derangement of right shoulder A ugust 2024 11:26am Right shoulder strain November 18, 2024 11:26am Chief Complaint Admit Date CEA: 6 mo f/u Abn CT September 29, 2024 1:13 pm Unknown October 03, 2024 4:46 pm MRI results November 04, 2024 1: 56pm Amb Documentation November 09, 2024 11 :45am stomach extended November 16, 2024 2: 40pm ER [facility] RT SHOULDER INJURY WX October 11:26am [facility] er f/u had a fall November 19, 2024 9:58am Reason for Visit Admit Date Lung nodule September 29, 2024 1:13p m Cervical spondylosis with radiculopathy November 04, 2024 1:56pm Neck pain November 04, 2024 1: 56pm Abdominal distention November 16, 2024 2 :40pm Abdominal pain November 16, 2024 2: 40pm Compression fx, lumbar spine October 2:40pm Internal derangement of right shoulder A ugust 2024 11:26am Right shoulder strain November 18, 2024 11:26am Cervical radiculopathy November 19, 2024 9:58am Compression fracture of L1 lumbar verteb ra November 19, 2024 9:58am Right lumbar radiculopathy November 19, 2024 9:58am Right shoulder strain November 19, 2024 9:58am Chief Complaint Admit Date CEA: 6 mo f/u Abn CT September 29, 2024 1:13 pm Unknown October 03, 2024 4:46 pm MRI results November 04, 2024 1: 56pm Amb Documentation November 09, 2024 11 :45am stomach extended November 16, 2024 2: 40pm ER [facility] RT SHOULDER INJURY WX October 11:26am [facility] er f/u had a fall November 19, 2024 9:58am constipation November 22, 2024 10 :23pm Reason for Visit Admit Date Lung nodule September 29, 2024 1:13p m Cervical spondylosis with radiculopathy November 04, 2024 1:56pm Neck pain November 04, 2024 1: 56pm Abdominal distention November 16, 2024 2 :40pm Abdominal pain November 16, 2024 2: 40pm Compression fx, lumbar spine October 2:40pm Internal derangement of right shoulder A ugust 2024 11:26am Right shoulder strain November 18, 2024 11:26am Cervical radiculopathy November 19, 2024 9:58am Compression fracture of L1 lumbar verteb ra November 19, 2024 9:58am Right lumbar radiculopathy November 19, 2024 9:58am Right shoulder strain November 19, 2024 9:58am Acute hypokalemia November 22, 2024 10 :23pm Constipation November 22, 2024 10 :23pm History of colon cancer November 22 10:23pm Primary hypertension November 22, 2024 1 0:23pm Chief Complaint Admit Date CEA: 6 mo f/u Abn CT September 29, 2024 1:13 pm Unknown October 03, 2024 4:46 pm MRI results November 04, 2024 1: 56pm Amb Documentation November 09, 2024 11 :45am stomach extended November 16, 2024 2: 40pm ER TB[facility] RT SHOULDER INJURY WX October 11:26am [facility] er f/u had a fall November 19, 2024 9:58am constipation November 22, 2024 10 :23pm Amb Documentation November 26, 2024 10:33am Constipation December 01, 2024 1:22pm Reason for Visit Admit Date Lung nodule September 29, 2024 1:13p m Cervical spondylosis with radiculopathy November 04, 2024 1:56pm Neck pain November 04, 2024 1: 56pm Abdominal distention November 16, 2024 2 :40pm Abdominal pain November 16, 2024 2: 40pm Compression fx, lumbar spine October 2:40pm Internal derangement of right shoulder A ugust 2024 11:26am Right shoulder strain November 18, 2024 11:26am Compression fracture of L1 lumbar verteb ra November 19, 2024 9:58am Right lumbar radiculopathy November 19, 2024 9:58am Right shoulder strain November 19, 2024 9:58am Cervical radiculopathy November 19, 2024 9:58am Primary hypertension November 22, 2024 1 0:23pm Acute hypokalemia November 22, 2024 10 :23pm Constipation November 22, 2024 10 :23pm History of colon cancer November 22 10:23pm Chief Complaint Admit Date CEA: 6 mo f/u Abn CT September 29, 2024 1:13 pm Unknown October 03, 2024 4:46 pm MRI results November 04, 2024 1: 56pm Amb Documentation November 09, 2024 11 :45am stomach extended November 16, 2024 2: 40pm ER TB[facility] RT SHOULDER INJURY WX October 11:26am [facility] er f/u had a fall November 19, 2024 9:58am constipation November 22, 2024 10 :23pm Amb Documentation November 26, 2024 10:33am Constipation December 01, 2024 1:22pm [facility] f/u December 03, 2024 11:19am Reason for Visit Admit Date Lung nodule September 29, 2024 1:13p m Cervical spondylosis with radiculopathy November 04, 2024 1:56pm Neck pain November 04, 2024 1: 56pm Abdominal distention November 16, 2024 2 :40pm Abdominal pain November 16, 2024 2: 40pm Compression fx, lumbar spine October 2:40pm Internal derangement of right shoulder A ugust 2024 11:26am Right shoulder strain November 18, 2024 11:26am Compression fracture of L1 lumbar verteb ra November 19, 2024 9:58am Right lumbar radiculopathy November 19, 2024 9:58am Right shoulder strain November 19, 2024 9:58am Cervical radiculopathy November 19, 2024 9:58am Primary hypertension November 22, 2024 1 0:23pm Acute hypokalemia November 22, 2024 10 :23pm Constipation November 22, 2024 10 :23pm History of colon cancer November 22 10:23pm Alternating constipation and diarrhea Se ptember 2024 1:22pm Abdominal pain December 03, 2024 11:19am Cervical spondylosis December 03 11:19am Compression fracture of L1 lumbar verteb ra December 03, 2024 11:19am Chief Complaint Admit Date CEA: 6 mo f/u Abn CT September 29, 2024 1:13 pm Unknown October 03, 2024 4:46 pm MRI results November 04, 2024 1: 56pm Amb Documentation November 09, 2024 11 :45am stomach extended November 16, 2024 2: 40pm ER TBH RT SHOULDER INJURY WX October 11:26am TB er f/u had a fall November 19, 2024 9:58am constipation November 22, 2024 10 :23pm Amb Documentation November 26, 2024 10:33am Constipation December 01, 2024 1:22pm [facility] f/u December 03, 2024 11:19am [facility] 3 WEEKS December 14, 2024 11:16am Reason for Visit Admit Date Lung nodule September 29, 2024 1:13p m Cervical spondylosis with radiculopathy November 04, 2024 1:56pm Neck pain November 04, 2024 1: 56pm Abdominal pain November 16, 2024 2: 40pm Abdominal distention November 16, 2024 2 :40pm Compression fx, lumbar spine October 2:40pm Internal derangement of right shoulder A ugust 2024 11:26am Right shoulder strain November 18, 2024 11:26am Compression fracture of L1 lumbar verteb ra November 19, 2024 9:58am Right lumbar radiculopathy November 19, 2024 9:58am Right shoulder strain November 19, 2024 9:58am Cervical radiculopathy November 19, 2024 9:58am Primary hypertension November 22, 2024 1 0:23pm Acute hypokalemia November 22, 2024 10 :23pm Constipation November 22, 2024 10 :23pm History of colon cancer November 22 10:23pm Alternating constipation and diarrhea Se ptember 2024 1:22pm Abdominal pain December 03, 2024 11:19am ASHD (arteriosclerotic heart disease) Se ptember 2024 11:19am Cervical spondylosis December 03 11:19am Compression fracture of L1 lumbar verteb ra December 03, 2024 11:19am History of fragility fracture December 03, 2024 11:19am IBS (irritable bowel syndrome) December 03, 2024 11:19am Internal derangement of right shoulder S eptember 2024 11:19am Lung nodule December 03, 2024 11:19am Primary hypertension December 03 11:19am Internal derangement of right shoulder S eptember 2024 11:16am Right shoulder strain December 14 11:16am Reason for Referral Specialty Diagnoses / Procedures Referred By Contac t Referred To Contact Diagnoses Near syncope Fatigue, unspecified type Procedures ECG 12 Lead Inderjit Frausto, DO [address] [facility] [address] [place] [address] Referral ID Status Reason Start Date Expiration Date V isits Requested Visits Authorized [id number] Authorized 12/20/2023 12/19/2024 1 1 Additional Source Comments Reason for Visit (unrecogniz ed section and content) Reason Comments Headache Hypertension Reason Comments [place] 10[place] [facility] Reason Comments Follow-up Dyspnea, near syncop e, med concerns Specialty Diagnoses / Procedures Referred By Contac t Referred To Contact Diagnoses Near syncope Fatigue, unspecified type Procedures ECG 12 Lead Inderjit Frausto, DO [address] [facility] [address] [place] [address] Referral ID Status Reason Start Date Expiration Date V isits Requested Visits Authorized [id number] Authorized 12/20/2023 12/19/2024 1 1 Reason Comments Follow-up 6m Coronary Artery Disease Specialty Diagnoses / Procedures Referred By Contac t Referred To Contact Cardiology Diagnoses Coronary artery disease, unspecified vessel or lesion type, unspecified whether angina present, unspecified whether iliamna or transplanted heart Procedures Follow Up In Cardiology Inderjit Frausto, [place] [address], [place] [id number] Phone: tel: fax: Inderjit Frausto, [address], [place] [id number] Phone: tel: fax: Referral ID Status Reason Start Date Expiration Date V isits Requested Visits Authorized [id number] Pending Review 11/07/2023 11/06/2024 1 1 Reason Comments Follow-up Shortness of breath, fatigue Reason Comments Follow-up 1 months Coronary ar shira disease, unspecified vessel or lesion type, unspecified whether angina present, unspecified whether iliamna or transplanted heart Specialty Diagnoses / Procedures Referred By Contac t Referred To Contact Cardiology Diagnoses Fatigue, unspecified type Procedures Follow Up In Cardiology Vanessa Dave APRN-GARMENT STEAMER [address] [place] [address], [place] [id number] Phone: tel: fax: Referral ID Status Reason Start Date Expiration Date V isits Requested Visits Authorized [id number] Authorized 08/05/2024 08/05/2025 1 1 Reason Comments Follow-up 7 month Follow up fo r Hypertension Specialty Diagnoses / Procedures Referred By Contac t Referred To Contact Cardiology Diagnoses Essential hypertension Procedures Follow Up In Cardiology Vanessa Dave STOCK TRACER-GARMENT STEAMER [address] [place], [place] [id number] Phone: tel: fax: Referral ID Status Reason Start Date Expiration Date V isits Requested Visits Authorized [id number] Authorized 09/29/2024 09/29/2025 1 1 INFORMATION SOURCE (unrecogn ized section and content) DATE CREATED AUTHOR 05/23/2022 [facility] DATE CREATED AUTHOR AUTHOR'S ORGANIZ ATION 05/25/2022 [facility] DATE CREATED AUTHOR AUTHOR'S ORGANIZ ATION 04/25/2023 [facility] EPIC DATE CREATED AUTHOR AUTHOR'S ORGANIZ ATION 11/10/2024 [facility] DATE CREATED AUTHOR AUTHOR'S ORGANIZ ATION 11/28/2024 [facility] Care Teams (unrecognized sec [...] Status: Inactive Member Role Status Dates Branden uD DO Primary Care Provide r, Attending Provider [...] 2023 End: October 29, 2023 Reji Frausto , DO Admit Provider, Att ending Provider Active Start: October 27, 2023 End: October 29, 2023 Sobia Okeefe MD Other Provider Active Start: October 27, 2023 End: October 29, 2023 Team Status: Active Member Role Status Dates Doe Álvarez PA-C Emergency Provider Active Start: October 28, 2023 Branden Du DO Primary Care Provider Active Start: October 28, 2023 Reji Frausto , DO Admit Provider, Oth er Provider Active [...] December 12, 2023 End: December 12, 2023 Production Tester Relationship Specialty Start Date End Date Branden Du DO [address] [place] [address] PCP - General Internal Medicine 11/07/23 Maura Andres RN Care Pillowcase Cutter 10/30/23 Production Tester Relationship Specialty Start Date End Date Branden Du DO [address] [place] [address] PCP - General Internal Medicine 11/07/23 Maura Andres, production artistPillowcase Cutter 10/30/23 Production Tester Relationship Specialty Start Date End Date Branden Du DO [address] [place] [address] PCP - General Internal Medicine 11/07/23 Production Tester Relationship Specialty Start Date End Date Branden Du DO [address] [place] [address] PCP - General Internal Medicine 11/07/23 Team [...] September 29, 2024 End: September 29, 2024 Production Tester Relationship Specialty Start Date End Date Branden Du DO [address] [place] [address] PCP - General Internal Medicine 11/07/23 Team Status: Active Member Role Status Dates Branden Du DO Primary Care Provider Active Start: October 03, 2024 Laurie Mills MD Attending Provider Active Sta rt: October 03, 2024 Team Status: Inactive Member Role Status Dates Laurie Mills MD Attending Provider Active Sta rt: October 03, 2024 End: October 03, 2024 Production Tester Relationship Specialty Start Date End Date Branden Du DO [address] [place] [address] PCP - General Internal Medicine 11/07/23 Team Status: Inactive Member Role Status Dates Branden Du DO Primary Care Provider Active Start: November 04, 2024 End: November 04, 2024 Branden Du , Attending Provider Active Sta rt: November 04, 2024 End: November 04, 2024 Team Status: Active Member Role Status Dates Branden Du DO Primary Care Provider Active Start: November 09, 2024 Maura Perez CMA Attending Provider Active Start: November 09, 2024 Team Status: Inactive Member Role Status Dates Branden Du DO Primary Care Provider Active Start: November 16, 2024 End: November 16, 2024 Branden Du , Attending Provider Active Sta rt: November 16, 2024 End: November 16, 2024 Team Status: Inactive Member Role Status Dates Branden Du DO Primary Care Provider Active Start: November 18, 2024 End: November 18, 2024 Justus Damon DO Attending Provider Active S tart: November 18, 2024 End: November 18, 2024 Team Status: Inactive Member Role Status Dates Branden Du DO Primary Care Provider Active Start: November 19, 2024 End: November 19, 2024 Roxane Granda APRN Attending Provider Active Start: November 19, 2024 End: November 19, 2024 Team Status: Active Member Role Status Dates Branden Du DO Primary Care Provider Active Start: November 22, 2024 Trinity Obrien MD Emergency Provider Active S tart: November 22, 2024 Benjamin Elias MD Admit Provider Active Start: November 22, 2024 Benjamin Elias MD Attending Provider Active St art: November 22, 2024 Team Status: Inactive Member Role Status Dates Branden Du DO Primary Care Provider Active Start: November 22, 2024 End: November 23, 2024 Trinity Obrien MD Emergency Provider Active S tart: November 22, 2024 End: November 23, 2024 Benjamin Elias MD Admit Provider Active Start: November 22, 2024 End: November 23, 2024 Mendez Lambert MD Attending Provider Active S tart: November 22, 2024 End: November 23, 2024 Team Status: Active Member Role Status Dates Branden Du DO Primary Care Provider Active Start: November 26, 2024 Maura Perez CMA Attending Provider Active Start: November 26, 2024 Team Status: Inactive Member Role Status Dates Branden Du DO Primary Care Provider Active Start: December 01, 2024 End: December 01, 2024 Shmuel Martinez APRN Attending Provider Active Start: December 01, 2024 End: December 01, 2024 Team Status: Inactive Member Role Status Dates Branden Du DO Primary Care Provider Active Start: December 03, 2024 End: December 03, 2024 Branden Du , Attending Provider Active Sta rt: December 03, 2024 End: December 03, 2024 Team Status: Inactive Member Role Status Dates Branden Du DO Primary Care Provider Active Start: December 14, 2024 End: December 14, 2024 Justus Damon DO Attending Provider Active S tart: December 14, 2024 End: December 14, 2024 Goals (unrecognized section and content) Type Treatment Intervention Code Status: Full Code Goals may be documented in an alternate section FOR RECORDS PERTAINING TO PATIENTS [...] BE BASED ON THE PRIMARY CLINICAL RECORDS. [facility]. provides no warranty or guarantee of the accuracy or completeness of information in this document.
--- NOTE | 2024-12-18 12:36 | MR_ITS ---
The [address] [address] Patient Name: EVER BREWER MRN: [id number] date: 1940 Sex: F Assigned Patient Location: LAB Current Patient Location: LAB Accession/Order Number: [id number] Exam Date: 12/18/2024 12:45 Report Date: 12/18/2024 16:40 At the request of: YODIT WEST APRN Procedure: MR lumbar spine wo/w con MRI of the lumbar spine performed without with contrast INDICATION: Compression fracture of L1 vertebral body history of colon cancer comparison: CT abdomen pelvis 11/16/2024 FINDINGS: There are compression fractures at L1 and T11 with corresponding edema consistent with acute to subacute compression fractures. There is 30-40% loss of height at L1. There is less than 20% % loss of height at T11. Evidence of retropulsion into the canal both levels up to 3 mm at L1. Diffuse heterogeneous appearance of bone marrow possibly related to red marrow to yellow marrow conversion, please correlate with CBC. Otherwise the vertebral heights preserved. Grade 1 anterolisthesis L4-L5 measuring 6 mm likely caused by posterior element degeneration. The conus medullaris terminates normally at the inferior plate of L1. Paraspinal soft tissues are unremarkable. T12-L1: Facet arthropathy. There is mild canal narrowing due to the retropulsed fracture lucencies appearing plate fracture at L1. Otherwise mild foraminal narrowing. L1-L2: Disc desiccation with facet arthropathy. Canal neural foramina patent. L2-3: Broad-based disc bulge with moderate facet arthropathy. Mild left greater than right neural from narrowing. Canal is patent. L3-L4: Broad-based disc bulge with endplate osteophytosis and spurring and moderate facet arthropathy. There is mild central canal stenosis and mild neural from narrowing. L4-5: 6 mm of grade 1 anterolisthesis with uncovering the posterior disc. Moderate to severe facet arthropathy with bilateral facet joint effusions. These findings result in moderate to severe central canal stenosis and bilateral right greater left subarticular recess narrowing, correlate with possible right greater than left radiculopathy. Otherwise there is moderate severe right and moderate left neural from narrowing. L5-S1: Disc desiccation with moderate facet arthropathy and bilateral facet joint effusion. Right foramen is patent. There is minimal left foraminal narrowing. Canal is patent. MR/MR lumbar spine wo/w con IMPRESSION: Subacute compression fractures at T11 and L1 with mild central spinal canal stenosis notably at L1. Otherwise multilevel degenerative changes greatest at L4-5 predominantly caused by posterior element degeneration is level. There is moderate to central canal stenosis and subarticular recess narrowing at L4-5 level, correlate with possible bilateral L5 radiculopathy. Heterogeneous appearance of bone marrow possibly related to yellow marrow to red marrow conversion. Correlate with CBC. No definite evidence of metastatic disease. Impression dictated by: Calixto Johnson M.D. 12/18/2024 4:40 PM Dictation Location: [place] [id number] Electronically authenticated by: [id number] Y Date: 12/18/2024 16:40
[2024-12-18 12:44] LABS: Estimated GFR (African America >60 (>=60 mL/min/1.73m^2); Estimated GFR (Non-African Ame >60 (>=60 mL/min/1.73m^2)
== END 2024-12-18 12:23 | disposition home or self-care (01) ==
LOC: LAB 12:22
PROVIDERS: Pathology Anatomic Pathology & Clinical Pathology; PCP Internal Medicine; Visit Provider Nurse Practitioner Family
DX: S32.010A Wedge compression fracture of first lumbar vertebra, initial encounter for closed fracture (principal); S22.080A Wedge compression fracture of T11-T12 vertebra, initial encounter for closed fracture
CPT/HCPCS: 36415; 72158; 82565; A9575

== ENCOUNTER 2025-01-07 12:33 | Outpatient (OUT) | payer MEDICARE, SELFPAY ==
--- OUTSIDE RECORDS SUMMARY | 2025-01-07 12:35 | XMS_ITS | Encounter Summary ---
Author Organization [facility] Address [address] [place] [address] Phone Care Team Providers Care Director Manufacturing Engineering Name Role Phone Maura Andres RN Unavailable Unavailable Branden Du DO Primary Care Provider [phone] Encounter Details Date Type Department Care Team (Late st Contact Info) Description 10/28/2023 Scanned Document [facility] [address] [place] [phone] Scanning, Generic Provider Social History Tobacco Use [...] Description 01/27/2025 1:00 PM EST Office Visit [facility] [address] [phone] Jeannette Dave, SPORTS MEDICINE SPECIALIST-POLARITY TESTER [address] [employer] [address], [address] [place], [place] [id number] documented as of this encounter Procedures Procedure Name Priority Date/Time Associated Diagnosis Comments ECHOCARDIOGRAM 10/28/2023 documented in this encounter Results * Echocardiogram (10/28/2023) Narrative 10/28/2023 Ordered by an unspecified provider. us Generic Provider Scanning CV ECHO PROCEDURES Fin al Result documented in this encounter Visit Diagnoses Not on filedocumented in this encounter Care Teams Director Manufacturing Engineering Relationship Specialty Start Date End Date Branden Du DO [address] [place] [address] PCP - General Internal Medicine 11/07/23 Maura Andres, counterpersonSoftware Asset Manager 10/30/23 01/28/24 documented as of this encounter
--- OUTSIDE RECORDS SUMMARY | 2025-01-07 12:35 | XMS_ITS | Encounter Summary ---
Author Organization [facility] Address [address] [place] [address] Phone Care Team Providers Care Web Development Intern Name Role Phone Maura Andres RN Unavailable Unavailable Branden Du DO Primary Care Provider [phone] Encounter Details Date Type Department Care Team (Late st Contact Info) Description 10/27/2023 Scanned Document [facility] [address] [place] [phone] Scanning, Generic Provider Social History Tobacco Use [...] Office Visit [facility] [address] [phone] Jeannette Dave, TEACHER OF THE VISUALLY IMPAIRED-ACQUISITION EDITOR 703 [facility] [address], [address] [place] [address] documented as of this encounter Procedures Procedure [...] on filedocumented in this encounter Care Teams Web Development Intern Relationship Specialty Start Date End Date Branden Du DO [address] [place] [address] PCP - General Internal Medicine 11/07/23 Maura Andres, alley cleanerMachinist Class B 10/30/23 01/28/24 documented as of this encounter
--- OUTSIDE RECORDS SUMMARY | 2025-01-07 12:36 | XMS_ITS | Clinical Summary ---
Author Organization [facility] Address [address] [facility] [place] [address] Care Team Providers Care Graduating Machine Operator Name Role Phone Unavailable Primary Care Provider Unavailabl e Source Comments The following information is NOT included in Care Everywhere downloads:Psychiatric notes, ECG results, Cardiac Rehab notes, Pulmonary Function notes, data from SmartForms (includes but not limited toPregnancy data,audiograms, eye exams, pre-surgical evaluation notes, well-child exam data).[facility] Social History Tobacco Use Types Packs/Day Years Used Date Smoking Tobacco: Never Assessed Comments Unknown Sex and Gender Information Value Date Recorded Sex Assigned at Not on file Legal Sex Female 9:58 AM EST Gender Identity Not on file Sexual Orientation Not on file Last Filed Vital Signs Vital Sign Reading Time Taken Comments Blood Pressure 181/92 05/21/2022 9:45 AM EST Pulse 72 05/21/2022 9:45 AM EST Temperature - - Respiratory Rate 18 05/21/2022 9:45 AM EST Oxygen Saturation 98% 05/21/2022 9:45 AM EST Inhaled Oxygen Concentration - - Weight - - Height - - Body Mass Index - - Plan of Treatment Health Maintenance Due Date Last Done Comments Basic Metabolic Panel 1940 Tdap Booster 1958 Hepatitis A (HAV) Vaccine (optional start 19+ years) 0 10/23/1959 Pneumococcal Vaccine(s) (50+ yrs) (1 of 1 - PCV) 10/22 Shingles (RZV) Vaccine (1 of 2) 1990 Hepatitis B (HBV) Vaccine (optional start 60+ years) 0 2000 Bone Densitometry 2005 RSV vaccine (adult) (1 - 1-dose 75+ series) 10/23/2015 COVID-19 Vaccine (1 - 2023- season) 2024 Influenza Vaccine (#1) 2024 Pap Smear Discontinued Insurance DO NOT USE [facility]
--- OUTSIDE RECORDS SUMMARY | 2025-01-07 12:36 | XMS_ITS | Encounter Summary ---
Author Organization [facility] Address [address] [place] [address] Phone Care Team Providers Care Food Tester Name Role Phone Branden Du DO Primary Care Provider [phone] Encounter Details Date Type Department Care Team (Late st Contact Info) Description 11/07/2024 Scanned Document [facility] [address] [place] [phone] Scanning, Generic Provider Social History Tobacco Use [...] Description 01/27/2025 1:00 PM EST Office Visit [facility] 703 [facility] [address] [place] [address] Jeannette Dave, SUPERVISOR OF OPERATIONS-MERCHANDISE PLANNING MANAGER 703 [facility] [address], [address] [place] [address] documented as of this encounter Visit Diagnoses Not on filedocumented in this encounter Additional Health Concerns Assessment Noted Time A fall risk assessment has been complete d for the patient 11/03/2024 2:05 PM EDT documented as of this encounter Care Teams Food Tester Relationship Specialty Start Date End Date Branden Du DO [address] [place] [address] PCP - General Internal Medicine 11/07/23 documented as of this encounter
--- OUTSIDE RECORDS SUMMARY | 2025-01-07 12:36 | XMS_ITS | Encounter Summary ---
Author Organization [facility] Address [address] [place] [address] Phone Care Team Providers Care Grain Commodity Manager Name Role Phone Branden Du DO Primary Care Provider [phone] Encounter Details Date Type Department Care Team (Late st Contact Info) Description 10/03/2024 Scanned Document [facility] [address] [place] [phone] Scanning, Generic Provider Social History Tobacco Use [...] Description 01/27/2025 1:00 PM EST Office Visit [facility] 703 [facility] [address] [place] [address] Jeannette Dave, POLICE OFFICER BOOKING-MANAGER RELOCATION 703 [facility] [address], [address] [place], [place] [phone] documented as of this encounter Visit Diagnoses Not on filedocumented in this encounter Additional Health Concerns Assessment Noted Time A fall risk assessment has been complete d for the patient 08/05/2024 1:51 PM EDT documented as of this encounter Care Teams Grain Commodity Manager Relationship Specialty Start Date End Date Branden Du DO [address] [place] [address] PCP - General Internal Medicine 11/07/23 documented as of this encounter
--- OUTSIDE RECORDS SUMMARY | 2025-01-07 12:36 | XMS_ITS | Encounter Summary ---
Author Organization [facility] Address [address] [place] [address] Phone Care Team Providers Care Nursing Resident Name Role Phone Branden Du DO Primary Care Provider Encounter Details Date Type Department Care Team (Late st Contact Info) Description 04/28/2024 Scanned Document [facility] [address] [place] [phone] Scanning, Generic Provider Social History Tobacco Use [...] 1:00 PM EST Office Visit [facility] 703 [facility] [address] [place] [address] Jeannette Dave, BOX BUILDER-CLIENT ACCOUNT MANAGER [address] [facility] [address], [address] [place], [place] [phone] documented as of this encounter Visit Diagnoses Not on filedocumented in this encounter Additional Health Concerns Assessment Noted Time A fall risk assessment has been complete d for the patient 12/20/2023 10:41 AM EDT documented as of this encounter Care Teams Nursing Resident Relationship Specialty Start Date End Date Branden Du DO [address] [place] [address] PCP - General Internal Medicine 11/07/23 documented as of this encounter
--- OUTSIDE RECORDS SUMMARY | 2025-01-07 12:36 | XMS_ITS | Encounter Summary ---
Author Organization [facility] Address [address] [place] [address] Phone Care Team Providers Care Securities Settlement Processor Name Role Phone Maura Andres RN Unavailable Unavailable Branden Du DO Primary Care Provider [phone] Encounter Details Date Type Department Care Team (Late st Contact Info) Description 11/05/2023 Scanned Document [facility] [address] [place] [phone] Scanning, Generic Provider Social History Tobacco Use [...] AM EDT documented as of this encounter Functional Status * Question Answer Date of Assessment Author BP 118/68 11/07/2023 10:05 AM EDT Mariela Dubon LPN Pulse 82 11/07/2023 10:05 AM EDT Mariela Dubon LPN * Communicable Disease Screening Question Answer Date of Assessment Author Do you have any of the follo wing new or worsening symptoms? None of these 11/07/2023 9:38 AM EDT Annie Caldwell documented as of this encounter Plan of Treatment Upcoming Encounters Date Type Department Care Team (Late st Contact Info) Description 01/27/2025 1:00 PM EST Office Visit [place] [id number] [address] Jeannette Dave, NUT BLANKER OPERATOR-HEAD BANQUET WAITRESS 703 [facility] [address], [address] [place] [address] documented as of this encounter Procedures Procedure Name Priority Date/Time Associated Diagnosis Comments OUTSIDE IMAGING SCAN 11/05/2023 documented in this encounter Results * OUTSIDE IMAGING SCAN (11/05/2023) Anatomical Region Laterality Modality Other Narrative 11/05/2023 Ordered by an unspecified provider. us Generic Provider Scanning OUTSIDE SCAN Final Result documented in this encounter Visit Diagnoses Not on filedocumented in this encounter Care Teams Securities Settlement Processor Relationship Specialty Start Date End Date Branden Du DO [address] [place] [address] PCP - General Internal Medicine 11/07/23 Maura Andres, floor coverings installerProject Management 10/30/23 01/28/24 documented as of this encounter
--- OUTSIDE RECORDS SUMMARY | 2025-01-07 12:36 | XMS_ITS | Encounter Summary ---
Author Organization [facility] Address [address] [place] [address] Phone Care Team Providers Care Metal Numerical Control Programmer Name Role Phone Branden Du DO Primary Care Provider [phone] Encounter Details Date Type Department Care Team (Late st Contact Info) Description 08/05/2024 Scanned Document [facility] [address] [place] [phone] Scanning, Generic Provider Social History Tobacco Use [...] PM EDT documented as of this encounter Functional Status * BP Answer Date of Assessment Author 122/70 08/05/2024 1:50 PM EDT John Laureano CMA * Pulse Answer Date of Assessment Author 72 08/05/2024 1:50 PM EDT John Laureano CMA * Communicable Disease Screening Question Answer Date of Assessment Author Do you have any of the following new or worsening symptoms? None of these 08/05/2024 1:43 PM EDT Mahsa Salazar MA documented as of this encounter Plan of Treatment Upcoming Encounters Date Type Department Care Team (Late st Contact Info) Description 01/27/2025 1:00 PM EST Office Visit [place] [address] [facility] [address] [place] [phone] Jeannette Dave, CHEMIST INTERNSHIP-TRANSMISSION MECHANIC [address] [facility] [address], [address] [place] [address] documented as of this encounter Procedures Procedure [...] documented as of this encounter Care Teams Metal Numerical Control Programmer Relationship Specialty Start Date End Date Branden Du DO [address] [place] [address] PCP - General Internal Medicine 11/07/23 documented as of this encounter
--- OUTSIDE RECORDS SUMMARY | 2025-01-07 12:36 | XMS_ITS | Encounter Summary ---
Author Organization [facility] Address [address] [place] [address] Phone Care Team Providers Care Note Specialist Name Role Phone Branden Du DO Primary Care Provider [phone] Reason for Visit * Reason Comments Med Refill Encounter Details Date Type Department Care Team (Late st Contact Info) Description 12/24/[address] [address] Inderjit Farusto DO [address] [place] [address] [address], [address] [address] History of PTCA; History of ST elevation myocardial infarction (STEMI); Coronary artery disease, unspecified vessel or lesion type, unspecified whether angina present, unspecified whether match-e-be-nash-she-wish band or transplanted heart Social History Tobacco Use Types Packs/Day Years [...] Description 01/27/2025 1:00 PM EST Office Visit [address] [address] Jeannette Dave, QUALITY ASSISTANT-BASEBALL CLUB MANAGER 703 [facility] 2, [facility] [address] [place] [address] documented as of this encounter Visit Diagnoses Diagnosis History of PTCA Postsurgical percutaneous transluminal coronary angioplasty status History of ST elevation myocardial infarction (STEMI) Coronary artery disease, unspecified vessel or lesion type, unspecified whether angina present, unspecified whether match-e-be-nash-she-wish band or transplanted heart documented in this encounter Additional Health Concerns Assessment Noted Time A fall risk assessment has been complete d for the patient 11/03/2024 2:05 PM EDT documented as of this encounter Care Teams Note Specialist Relationship Specialty Start Date End Date Branden Du DO [address] [place] [address] PCP - General Internal Medicine 11/07/23 documented as of this encounter
--- OUTSIDE RECORDS SUMMARY | 2025-01-07 12:36 | XMS_ITS | Encounter Summary ---
Author Organization [facility] Address [address] [place] [address] Phone Care Team Providers Care Acoustic Warfare Analyst Name Role Phone Maura Andres RN Unavailable Unavailable Branden Du DO Primary Care Provider [phone] Encounter Details Date Type Department Care Team (Late st Contact Info) Description 10/29/2023 Scanned Document [facility] [address] [place] [phone] Scanning, Generic Provider Social History Tobacco Use [...] Description 01/27/2025 1:00 PM EST Office Visit [facility] 703 [facility] [address] [place] [address] Jeannette Dave, REFUSE AND RECYCLING WORKER-SILVER STEWARD 703 [facility] [address], [address] [place] [address] documented as of this encounter Visit Diagnoses Not on filedocumented in this encounter Care Teams Acoustic Warfare Analyst Relationship Specialty Start Date End Date Branden Du DO [address] [place] [address] PCP - General Internal Medicine 11/07/23 Maura Andres, transmission testerRussian History Professor 10/30/23 01/28/24 documented as of this encounter
--- OUTSIDE RECORDS SUMMARY | 2025-01-07 12:36 | XMS_ITS | Encounter Summary ---
Author Organization [facility] Address [address] [place] [address] Phone Care Team Providers Care Soils Analyst Name Role Phone Branden Du DO Primary Care Provider [phone] Encounter Details Date Type Department Care Team (Late st Contact Info) Description 11/03/2024 Scanned Document [facility] [address] [place] [phone] Scanning, Generic Provider Social History Tobacco Use [...] on file documented as of this encounter Functional Status * BP Answer Date of Assessment Author 102/60 11/03/2024 2:04 PM EDT John Laureano CMA * Pulse Answer Date of Assessment Author 60 11/03/2024 2:04 PM EDT John Laureano CMA * Communicable Disease Screening Question Answer Date of Assessment Author Do you have any of the follo wing new or worsening symptoms? None of these 11/03/2024 1:47 PM EDT Humza Isabel documented as of this encounter Plan of Treatment Upcoming Encounters Date Type Department Care Team (Late st Contact Info) Description 01/27/2025 1:00 PM EST Office Visit [facility] [address] [facility] [address] [place] [address] Jeannette Dave, RAGS LABORER-AERONAUTICAL ENGINEER [address] [place] [address] Scheduled Orders Name Type Priority Associated Diagnoses Orde r Schedule Ultrasound- OnBase Scan Imaging O rdered: 11/03/2024 documented as of this encounter Visit Diagnoses Not on filedocumented in this encounter Additional Health Concerns Assessment Noted Time A fall risk assessment has been complete d for the patient 11/03/2024 2:05 PM EDT documented as of this encounter Care Teams Soils Analyst Relationship Specialty Start Date End Date Branden Du DO [address] [place] [address] PCP - General Internal Medicine 11/07/23 documented as of this encounter
--- OUTSIDE RECORDS SUMMARY | 2025-01-07 12:36 | XMS_ITS | Clinical Summary ---
Author Organization [facility] Address [address] [place] [address] Care Team Providers Care Battery Builder Name Role Phone Branden Du Primary Care Provider [phone] Allergies No known active allergies Medications amLODIPine [...] Orientation Not on file Plan of Treatment Not on file Insurance MEDICARE [employer] Care Teams Battery Builder Relationship Specialty Start Date End Date Branden Du DO PCP - General Internal Medicine 04/24/23
--- OUTSIDE RECORDS SUMMARY | 2025-01-07 12:36 | XMS_ITS | Encounter Summary ---
Author Organization [facility] Address [address] [place] [address] Phone Care Team Providers Care Automotive Lot Attendant Name Role Phone Branden Du DO Primary Care Provider [phone] Encounter Details Date Type Department Care Team (Late st Contact Info) Description 05/26/2024 Scanned Document [facility] [address] [place] [id number] Scanning, Generic Provider Social History Tobacco Use [...] AM EST documented as of this encounter Functional Status * BP Answer Date of Assessment Author 110/72 05/27/2024 11:23 AM EST Yue Everett LPN * Pulse Answer Date of Assessment Author 60 05/27/2024 11:23 AM Yue Brian LPN * Communicable Disease Screening Question Answer Date of Assessment Author Do you have any of the following new or worsening symptoms? None of these 05/27/2024 10:42 AM EST Sarah Isabel documented as of this encounter Plan of Treatment Upcoming Encounters Date Type Department Care Team (Late st Contact Info) Description 01/27/2025 1:00 PM EST Office Visit [facility] [address] [place] [phone] Jeannette Dave, SUPERVISOR INSTRUMENT REPAIR-BOOTH CLEANER [address] [facility] [address] [place] [address] documented as of this encounter Visit Diagnoses Not on filedocumented in this encounter Additional Health Concerns Assessment Noted Time A fall risk assessment has been complete d for the patient 12/20/2023 10:41 AM EDT documented as of this encounter Care Teams Automotive Lot Attendant Relationship Specialty Start Date End Date Branden Du DO [address] [place] [address] PCP - General Internal Medicine 11/07/23 documented as of this encounter
--- OUTSIDE RECORDS SUMMARY | 2025-01-07 12:36 | XMS_ITS | Clinical Summary ---
Author Organization [facility] Address [address] 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 Active dicyclomine (Bentyl) 20 mg tablet Take 1 tablet (20 mg) by mouth every 12 hours. 07/28/19 25 Active atorvastatin (Lipitor) 80 mg tabletIndications :Hyperlipidemia, unspecified hyperlipidemia type TAKE 1 TABLET BY MOUTH EVERY DAY IN THE EVENING 90 tablet 3 10/01/19 25 Active losartan (Cozaar) 50 mg tabletIndications :Essential hypertension Take 1 tablet (50 mg) by mouth 2 times a day. 180 tablet 09/30/19 25 2025 Active carvedilol (Coreg) 6.25 mg tabletIndications :Essential hypertension Take 1 tablet (6.25 mg) by mouth 2 times daily (morning and late afternoon). 60 tablet 11 09/30/19 25 2025 Active clopidogrel (Plavix) 75 mg tabletIndications :History of PTCA,History of ST elevation myocardial infarction (STEMI),Coronary artery disease, unspecified vessel or lesion type, unspecified whether angina present, unspecified whether chipewwa or transplanted heart Take 1 tablet (75 mg) by mouth early in the morning.. 90 tablet 3 12/25/19 25 2025 Active clopidogrel (Plavix) 75 mg tabletIndications :History of PTCA,History of ST elevation myocardial infarction (STEMI),Coronary artery disease, unspecified vessel or lesion type, unspecified whether angina present, unspecified whether chipewwa or transplanted heart Take 1 tablet (75 mg) by mouth once daily. On the first day of starting the medication take 4 tablets by mouth. Then take 1 tablet by mouth each day after. 90 tablet 3 12/20/19 24 2024 Discontinued Active Problems Problem Noted Date Diagnosed Date Localized edema 11/03/2024 Assessment & Plan (11/03/2024 2:22 PM EDT): After flight to [place] has noticed [...] EDT): Oct 26, 2024 Inferior STEMI pRCA PCI/[facility] 4 x 18 mm mLAD mild intramyocardial [...] Family history of PTCA 11/07/202311/06 RCA occlusion 11/07/2023 11/07/2023 Encounters Date Type Department Care Team Description 12/24/2024 Refill [facility] [address] [facility] [address] [place] [address] Inderjit Frausto DO History of PTCA; History of ST elevation myocardial infarction (STEMI); Coronary artery disease, unspecified vessel or lesion type, unspecified whether angina present, unspecified whether chipewwa or transplanted heart 11/09/2024 Telephone [facility] [address] [place] [address] [address] [place] [address] Yue Everett, SURVEY COMPILER Results 11/07/2024 Scanned Document [facility] [address] [place] [address] Scanning, Generic Provider 11/04/2024 Telephone [facility] [address] [place] [phone] Jeannette Dave, SADDLE MAKER-WIRE FENCE BUILDER 11/03/2024 2:00 PM EDT Office Visit [facility] [address] [facility] [address] [place] [address] Jeannette Dave, SADDLE MAKER-WIRE FENCE BUILDER BMI 27.0-27.9,adult (Primary Dx); Essential hypertension; Localized edema Discharge Disposition: Home 11/03/2024 Scanned Document [facility] [address] [place] [address] Scanning, Generic Provider 11/03/2024 Travel from Last 3 Months Immunizations Immunization Administration [...] blue cap/grady label *Check age/dose* 12/27/2021 Novel [id number], preservative-free 03/08 Pfizer COVID-19 vaccine, 12 years [...] Office Visit [facility] [address] [facility] [address] [place] [address] Jeannette Dave, SADDLE MAKER-WIRE FENCE BUILDER [address] [facility] [address] [place] [address] Health Maintenance Due Date Last Done Comments Lipid Panel 1940 Medicare Annual Wellness Visit (AWV) 1940 DTaP/Tdap/Td Vaccines (1 - Tdap) 1962 Bone Density Scan 2005 Influenza Vaccine (#1) 2024 , 12/27/2022, 12/13/2021, Additional history exists COVID-19 Vaccine ( season) 2024 12/05/2023, 12/27/2022, [...] topic Insurance MEDICARE PART A AND B [facility] MEDICARE PART A AND B [facility] Care Teams Lithograph Press Operator Tinware Relationship Specialty Start Date End Date Brand[place] [address] PCP - General Internal Medicine 11/07/23
--- OUTSIDE RECORDS SUMMARY | 2025-01-07 12:39 | XMS_ITS | CCD ---
Author Organization [facility] Care Team Providers Care Information Assurance Specialist Name Role Phone Unavailable Primary Care Provider [...] Admit Provider DO Reji Frausto Attending Provider [phone] MD Sobia Okeefe Other Provider [phone] DO Rona Andres Emergency Provider [phone] Dmitry NATION, Maura Unavailable Unavailable Branden Du DO Primary Care Provider Branden Du DO Primary Care Provider Aleshia LOZANO, Sylvester Lozano Attending Provider Vanessa Dave APRN Attending Provider [phone] Branden Du DO Attending Provider Maldonado LOZANO, Sobia Stanley Attending Provider [phone] Laurie Mills MD Attending Provider Branden Du DO Primary Care Provider VANESSA DAVE Attending Unavailable DAVE, VANESSA K Referring Unavailable BALL, BRANDEN E Primary Care Unavailable LETTY, INDERJIT S Attending Unavailable BALL, BRANDEN E Primary Care Unavailable LETTY, INDERJIT S Attending Unavailable LETTY, INDERJIT S Referring Unavailable BALL, BRANDEN E Primary Care Unavailable DAVE, VANESSA K Attending Unavailable BALL, BRANDEN E Primary Care Unavailable DAVE, VANESSA K Attending Unavailable DAVE, VANESSA K Referring Unavailable BALL, BRANDEN E Primary Care Unavailable Maura Perez CMA Attending Provider Unavaila ble Branden Du DO Primary Care Provider Branden Du DO Attending Provider Justus Damon DO Attending Provider Roxane Granda APRN Attending Provider Trinity Obrien MD Emergency Provider [phone] Benjamin Elias MD Admit Provider Benjamin Elias MD Attending Provider [phone] Mendez Lambert MD Attending Provider Laurie Mills Attending Unavailable Laurie Mills Admitting Unavailable Benjamin Elias Admitting Unavailable Branden Du Primary Care Unavailable Mendez Lambert Attending Unavailable Shmuel Martinez APRN Attending Provider Branden Du DO Primary Care Provider Dustin LOZANO, Shannon Attending Provider Unavailab le Allergies Allergy Classification Reported Allergen(s) Allergy Type Date of Onset Reaction(s) Facility (2 sources) Penicillins; Translations: [PENICILLINS] Drug allergy (disorder) 4 [facility] Repository (12 sources) Substance with penicillin structure and antibacterial mechanism of action (substance) Drug allergy 4 Unknown [facility] Other (2 sources) Penicillins Propensity to adverse reactions 4 Unknown [facility] (3 sources) Penicillins Propensity to adverse reactions 4 Unknown [facility] (1 source) Penicillins Drug allergy (disorder) 5 [facility] Repository Medications Current Medications Medication Drug Class(es) Dates Sig (Normalized) Sig (Original) amLODIPine 5 mg oral tablet (20 sources) Dihydropyridine Calcium Channel Fariha Start: 12-23-2023 End: 12-29-2024 take 1 tablet by mouth once daily Amlodipine 5 mg tablet Active 0 .ROUTE .COMPLEX December 29, 2024 7:22am TAKE ONE TABLET BY MOUTH [...] Release (Dr/Ec) Active 81 MG PO Daily October 29, 2023 12:00am Complies with drug therapy atorvastatin 80 mg oral tablet (20 sources) HMG-CoA Reductase Inhibitor Start: 10-29-2023 take 1 tablet by mouth once daily in the evening Atorvastatin 80 mg Tablet Active 80 MG PO Every evening 90 October 29, 2023 12:00am Complies with drug therapy carvedilol 6.25 mg oral tablet (13 sources) alpha-Adrenergic Fariha, beta-Adrenergic Fariha Start: 09-29-2024 End: 09-29-2025 take 1 tablet by mouth twice daily at mealtime Carvedilol 6.25 mg tablet Active 6.25 MG PO Twice daily 60 September 30, 2024 12:00am must administer with a meal/food Complies with drug therapy cholecalciferol 0.05 mg chewable tablet (4 sources) Vitamin D Start: 12-01-2024 take 1 tablet by mouth once daily Cholecalciferol (Vitamin D3) 50 mcg (2,000 unit) tablet,chewable Active 50 MCG PO Daily December 01, 2024 12:00am Complies with drug therapy dicyclomine hydrochloride 20 [...] APPLIC TOPICAL 3 Times a week 120 30 August 19, 2024 12:00am multivit with minerals/lutein (MULTIVITAMIN 50 PLUS ORAL) (6 sources) Start: 06-20-2023 take 1 tablet by mouth once daily multivit with minerals/lutein (MULTIVITAMIN 50 PLUS ORAL) Take 1 tablet by mouth once daily. 06/20/2023 Active Multivitamin preparation (7 sources) Start: 06-20-2023 take 1 tablet by mouth once daily Multivitamin Active 1 TAB PO Daily June 20, 2023 12:00am Multivitamin tablet (15 sources) Start: 06-20-2023 take 1 tablet by [...] tablet (20 sources) Nitrate Vasodilator Start: 10-29-2023 Nitroglycerin 0.4 mg Tablet, Sublingual Active 0.4 MG SUBLINGUAL Q5M as needed for Chest Pain October 29, 2023 12:00am Complies with drug therapy polyethylene glycol 3350 44075 mg powder for oral solution (8 sources) Osmotic Laxative Start: 11-23-2024 Polyethylene Glycol 3350 (Miralax) 17 gram/dose powder Active 17 GM PO Daily December 01, 2024 12:00am Complies with drug therapy sulfamethoxazole 800 mg / trimethoprim 160 mg oral tablet (11 sources) Dihydrofolate Reductase Inhibitor Antibacterial, Sulfonamide Antimicrobial Start: 02-19-2023 take 1 tablet by mouth every twelve hours Sulfamethoxazole-T rimethoprim 800-160 MG 1 tablet Orally Twice a day for 5 days Jan, Active Completed/Discontinued Medications Medication Drug Class(es) Dates Sig (Normalized) Sig (Original) clobetasol propionate 0.5 mg/ml topical solution (12 sources) Corticosteroid Start: 08-19-2024 End: 11-22-2024 Clobetasol [...] Mar, Active ketoconazole 20 mg/ml medicated shampoo (12 sources) Azole Antifungal Start: 08-19-2024 End: 11-22-2024 [...] Apr, Active predniSONE 10 mg oral tablet (10 sources) Start: 11-04-2024 End: 11-22-2024 Prednisone 10 mg tablet Discontinued 10 MG PO As Directed 12 November 04, 2024 12:00am November 22, 2024 10:28pm 1 tablet PO tid w/ food x 2 days then bid w/ food x 2 days then qd w/ food x 2 days 72 hr scopolamine 0.0139 mg/hr transdermal system (12 sources) Anticholinergic Start: 03-23-2024 End: 07-20-2024 Scopolamine [...] 2024 5:37pm tiZANidine 2 mg oral tablet (10 sources) Central alpha-2 Adrenergic Agonist Start: 11-04-2024 End: 11-22-2024 take 0.5-1 tablets by mouth once daily at bedtime as needed Tizanidine 2 mg tablet Discontinued 0 PO Daily at bedtime as needed for muscle spasticity 01 01November 04, 2024 12:00am November 22, 2024 10:28pm [...] Complications of surgical procedures or medical care (20 sources) Drug therapy finding; Translations: [Unspecified adverse effect of drug or medicament, initial encounter] 11-05-2023 Episodic Coronary atherosclerosis and other heart disease (20 sources) Coronary arteriosclerosis; Translations: [Atherosclerotic heart disease of [place] coronary artery without angina pectoris] Onset: 11-07-2023 [...] Onset: 05-21-2022 Chronic Fluid and electrolyte disorders (12 sources) Acute hypokalemia; Translations: [Hypokalemia] 11-22-2024 Episodic [...] Nausea Episodic Other aftercare (1 source) Other chcf (current) drug therapy; Translations: [OTH JAIL CURRENT DRUG THERAPY] Onset: 05-22-2022 Episodic Other [...] encounter for closed fracture] 11-16-2024 Episodic Other fractures (2 sources) Compression fracture of thoracic spine; Translations: [Wedge compression fracture of T11-T12 vertebra, initial encounter for closed fracture] 12-29-2024 Episodic Other gastrointestinal disorders (20 sources) Irritable [...] distension (gaseous)] 11-16-2024 Episodic Other gastrointestinal disorders (12 sources) Constipation; Translations: [Constipation, unspecified] 11-22-2024 Episodic Other gastrointestinal disorders (1 source) Constipation, unspecified; Translations: [Constipation, unspecified] Onset: 11-22-2024 Episodic Other gastrointestinal disorders (6 sources) Constipation alternates with diarrhea; Translations: [Other specified symptoms and signs involving the digestive system and abdomen] 12-01-2024 Episodic Other gastrointestinal disorders (1 source) Abdominal distension ; Translations: [Abdominal distension (gaseous)] 11-16-2024 Episodic Other inflammatory condition of skin (14 [...] region] 05-21-2023 Chronic Other non-traumatic joint disorders (20 sources) Derangement of right shoulder joint; Translations: [...] mass and lump, trunk] Episodic Pathological fracture (10 sources) H/O: fragility fracture; Translations: [Personal history [...] source) Localized edema; Translations: [Localized edema] Onset: 08-12-2025 Episodic Residual codes; unclassified (8 sources) Postmenopausal state; Translations: [Asymptomatic menopausal state] 11-18-2024 Episodic Spondylosis; intervertebral disc disorders; other back problems (20 sources) Lumbar spondylosis; Translations: [Spondylosis without myelopathy or radiculopathy, lumbar region] Chronic Comment on above: MRI: C3-4 mod forami nal stenosis, C4-5 mod foraminal and canal stenosis, C5-6 severe right foraminal stenosis, C7-T1 moderate B/L foraminal narrowing - 10/2024 MRI: L4-5 severe can al stenosis w/ severe right/mod left foraminal stenosis, subacute fx T11, L1 - 11/2024 Spondylosis; intervertebral disc disorders; other back problems [...] right upper arm, initial encounter Episodic Unclassified (5 sources) Office is closed for the holiday. Please call tomorrow on 11/24/24 to schedule a post hospital follow up apt within the next seven days. Unclassified (5 sources) A [facility] screening has identified you as [...] Four Ways to Beat the Frailty Risk [email or web address]-the-fra ilty-[email or web address] 11-23-2024 Past or Other Problems Problem [...] Test Name Value Interpretation Reference Range Facility Glomerular filtration rate ( GFR) estimation in non- AmericanOrdered By: Shannon Chan on 12-18-2024 GFR/1.73 sq M.predicted among non-blacks MDRD (S/P/Bld) [Vol rate/Area] mL/min/{1.73_m2} >=60 mL/min/1.[address] [place] [address] Laboratory - Chemistry and C hemistry - challengeOrdered By: Shannon Chan on 12-18-2024 Creatinine [Mass/Vol] 0.81 mg/dL 0.55-1.02 [facility] GFR/1.73 sq M.predicted MDRD (S/P/Bld) [Vol rate/Area] mL/min/{1.73_m2} >=60 mL/min/1.7 3m 2 [facility] Alanine aminotransferase [En zymatic activity/volume] in Serum or PlasmaOrdered By: Trinity Gurrolageant on 11-22-2024 ALT [Catalytic activity/Vol] 21 U/L 7-52 [facility] Comment on above: Performed By: #### H EPATIC, BMP, CBC, LIPASE #### [facility] [address] Albumin [Mass/volume] in Ser um or Plasma by Bromocresol green (BCG) dye binding methoOrdered By: Trinity Obrien on 11-22-2024 Albumin BCG dye [Mass/Vol] 4.0 g/dL 3.5-5.7 [facility] Alkaline phosphatase [Enzyma tic activity/volume] in Serum or PlasmaOrdered By: Trinity Obrien on 11-22-2024 ALP [Catalytic activity/Vol] 147 U/L High 34-104 [facility] Comment on above: Performed By: #### H EPATIC, BMP, CBC, LIPASE #### [facility] [address] [place] [address] Appearance of UrineOrdered B y: Trinity Micah on 11-22-2024 Appearance (U) Clear Clear [facility] Comment on above: Order Comment: Name Collection Type:: Clean-Voided Midstream Performed By: #### U A #### [facility] [address] [place] [address] Aspartate aminotransferase [ Enzymatic activity/volume] in Serum or PlasmaOrdered By: Trinity Obrien on 11-22-2024 AST [Catalytic activity/Vol] 19 U/L 13-39 [facility] Comment on above: Performed By: #### H EPATIC, BMP, CBC, LIPASE #### [address] Basic Metabolic Panelon 083 Creatinine Clr Calc Pharmacy 40.32 Normal [facility] Comment on above: Performed By: #### H EPATIC, BMP, CBC, LIPASE #### [address] GFR/1.73 sq M.predicted MDRD (S/P/Bld) [Vol rate/Area] mL/min/{1.73_m2} Normal [facility] Comment on above: Performed By: #### H EPATIC, BMP, CBC, LIPASE #### [address] Basophils [#/volume] in Bloo d by Automated countOrdered By: Trinity Obrien on 11-22-2024 Basophils (Bld) [#/Vol] 0.1 10*3/uL 0.0-0.2 [facility] Comment on above: Result Comment: PERF ORMED BY: [place] [address] PATHOLOGIST ROBOT PROGRAMMER CANDELARIA JALLOH M.D. Performed By: #### H EPATIC, BMP, CBC, LIPASE #### [address] Basophils/100 leukocytes in Blood by Automated countOrdered By: Trinity Obrien on 11-22-2024 Basophils/100 WBC (Bld) 1.1 % . [facility] Comment on above: Performed By: #### H EPATIC, BMP, CBC, LIPASE #### [address] Bilirubin Test strip Ql (U)O rdered By: Trinity Obrien on 11-22-2024 Bilirubin Ql (U) Negative Negative [facility] Bilirubin.direct [Mass/volum e] in Serum or PlasmaOrdered By: Trinity Obrien on 11-22-2024 Bilirubin.direct [Mass/Vol] 0.10 mg/dL 0.03-0.18 [facility] Bilirubin.total [Mass/volume ] in Serum or PlasmaOrdered By: Trinity Obrien on 11-22-2024 Bilirubin [Mass/Vol] 0.4 mg/dL 0.3-1.0 [facility] Comment on above: Performed By: #### H EPATIC, BMP, CBC, LIPASE #### [address] Calcium [Mass/volume] in Ser um or PlasmaOrdered By: Trinity Obrien on 11-22-2024 Calcium [Mass/Vol] 9.2 mg/dL 8.6-10.3 [facility] Comment on above: Performed By: #### H EPATIC, BMP, CBC, LIPASE #### [address] Carbon dioxide, total [Moles /volume] in Serum or PlasmaOrdered By: Trinity Obrien on 11-22-2024 CO2 [Moles/Vol] 24.3 mmol/L 21.0-31.0 [facility] Comment on above: Performed By: #### H EPATIC, BMP, CBC, LIPASE #### [address] Chloride [Moles/volume] in S carolyne or PlasmaOrdered By: Trinity Obrien on 11-22-2024 Chloride [Moles/Vol] 102 mmol/L 98-107 [facility] Comment on above: Performed By: #### H EPATIC, BMP, CBC, LIPASE #### [address] Color of Urine by AutoOrdere d By: Trinity Obrien on 11-22-2024 Color (U) Colorless Yellow [facility] Comment on above: Order Comment: Name Collection Type:: Clean-Voided Midstream Performed By: #### U A #### [address] Complete Blood Count Auto Di ffon 11-22-2024 Mean Corpuscular HGB Conc 34.6 g/dL Normal 32.0-35.0 [facility] Comment on above: Performed By: #### H EPATIC, BMP, CBC, LIPASE #### [address] Monocytes/100 WBC (Bld) 20.64 % High 0.00-20.00 [facility] Comment on above: Result Comment: For adults in ED, MDW > 20.0 may be associated with a higher risk of sepsis during the first 12 hrs of hospital admission Performed By: #### H EPATIC, BMP, CBC, LIPASE #### [address] NRBC% 0.1 /100{WBC} Normal 0-0.5 [facility] Comment on above: Performed By: #### H EPATIC, BMP, CBC, LIPASE #### [address] White Blood Count 7.5 [CFU]/mL Normal 3.8-11.6 [facility] Comment on above: Performed By: #### H EPATIC, BMP, CBC, LIPASE #### [address] Creatinine [Mass/volume] in Serum or PlasmaOrdered By: Trinity Obrien on 11-22-2024 Creatinine [Mass/Vol] 0.89 mg/dL 0.60-1.20 [facility] Comment on above: Performed By: #### H EPATIC, BMP, CBC, LIPASE #### [address] Eosinophils [#/volume] in Bl ood by Automated countOrdered By: Trinity Obrien on 11-22-2024 Eosinophils (Bld) [#/Vol] 0.1 10*3/uL 0.0-0.45 [facility] Comment on above: Performed By: #### H EPATIC, BMP, CBC, LIPASE #### [place] [address] [place] Eosinophils/100 leukocytes i n Blood by Automated countOrdered By: Trinity Obrien on 11-22-2024 Eosinophils/100 WBC (Bld) 0.9 % . [facility] Comment on above: Performed By: #### H EPATIC, BMP, CBC, LIPASE #### [address] Erythrocyte distribution wid th [Ratio] by Automated countOrdered By: Trinity Obrien on 11-22-2024 Erythrocyte distribution width (RBC) [Ratio] 13.5 % 11.9-15.3 [facility] Comment on above: Performed By: #### H EPATIC, BMP, CBC, LIPASE #### [facility] [address] Erythrocytes [#/volume] in B lood by Automated countOrdered By: Trinity Obrien on 11-22-2024 RBC (Bld) [#/Vol] 4.11 10*6/uL 3.60-5.00 [facility] Comment on above: Performed By: #### H EPATIC, BMP, CBC, LIPASE #### [facility] [address] Glomerular filtration rate [ Volume Rate/Area] in Serum, Plasma or Blood by CreatinineOrdered By: Trinity Obrien on 11-22-2024 Glomerular filtration rate [Volume Rate/Area] in Serum, Plasma or Blood by Creatinine > 60.0 mL/Min [facility] Glucose [Mass/volume] in Ser um or PlasmaOrdered By: Trinity Obrien on 11-22-2024 Glucose [Mass/Vol] 97 mg/dL 70-100 [facility] Comment on above: ADA recommended refe rence rangeRandom Glucose Reference Range is dependent on time and content of last meal. Glucose of more than 200 mg/dL in a nonstressed, ambulatory subject supports the diagnosis of Diabetes Mellitus. Result Comment: [place] om Glucose Reference Range is dependent on time and content of last meal. Glucose of more than 200 mg/dL in a nonstressed, ambulatory subject supports the diagnosis of Diabetes Mellitus. ADA recommended reference range Performed By: #### H EPATIC, BMP, CBC, LIPASE #### [facility] [address] Glucose [Mass/volume] in Uri ne by Test stripOrdered By: Trinity Obrien on 11-22-2024 Glucose Test strip (U) [Mass/Vol] Normal mg/dL Normal [facility] Hematocrit [Volume Fraction] of Blood by Automated countOrdered By: Trinity Obrien on 11-22-2024 Hematocrit (Bld) [Volume fraction] 39.0 % 34.0-46.4 [facility] Comment on above: Performed By: #### H EPATIC, BMP, CBC, LIPASE #### [address] Hemoglobin Test strip Ql (U) Ordered By: Trinity Obrien on 11-22-2024 Hemoglobin Ql (U) Negative Negative [facility] Hemoglobin [Mass/volume] in BloodOrdered By: Trinity Obrien on 11-22-2024 Hemoglobin (Bld) [Mass/Vol] 13.5 g/dL 11.8-15.4 [facility] Comment on above: Performed By: #### H EPATIC, BMP, CBC, LIPASE #### [address] Hepatic Panelon 11-22-2024 Albumin [Mass/Vol] 4.0 g/dL Normal 3.5-5.7 [facility] Comment on above: Performed By: #### H EPATIC, BMP, CBC, LIPASE #### [address] Bilirubin,Indirect 0.3 mg/dL Normal [facility] Comment on above: Performed By: #### H EPATIC, BMP, CBC, LIPASE #### [address] Bilirubin.indirect [Mass/Vol] 0.10 mg/dL Normal 0.03-0.18 [facility] Comment on above: Performed By: #### H EPATIC, BMP, CBC, LIPASE #### [address] Ketones [Presence] in Urine by Test stripOrdered By: Trinity Obrien on 11-22-2024 Ketones Ql (U) Negative Negative [facility] Comment on above: Order Comment: Name Collection Type:: Clean-Voided Midstream Performed By: #### U A #### [address] Leukocyte esterase [Presence ] in Urine by Test stripOrdered By: Trinity Obrien on 11-22-2024 Leukocyte esterase Test strip Ql (U) Negative Negative [facility] Comment on above: Order Comment: Name Collection Type:: Clean-Voided Midstream Performed By: #### U A #### [facility] [address] [place] [address] Leukocytes [#/volume] correc kristi for nucleated erythrocytes in Blood by Automated counOrdered By: Trinity Obrien on 11-22-2024 WBC corrected for nucl RBC Auto (Bld) [#/Vol] 7.5 10*3/uL 3.8-11.6 [facility] Leukocytes [#/volume] in Blo od by Automated countOrdered By: Trinity Obrien on 11-22-2024 WBC (Bld) [#/Vol] 7.5 10*3/uL 3.8-11.6 [facility] Comment on above: Performed By: #### H EPATIC, BMP, CBC, LIPASE #### [facility] [address] [place] [address] Lipase [Enzymatic activity/v olume] in Serum or PlasmaOrdered By: Trinity Obrien on 11-22-2024 Lipase [Catalytic activity/Vol] 169.0 U/L High 11.0-82.0 [facility] Comment on above: Result Comment: PERF ORMED BY: [place] [address] PATHOLOGIST ROBOT PROGRAMMER CANDELARIA JALLOH M.D. Performed By: #### H EPATIC, BMP, CBC, LIPASE #### [facility] [address] [place] [address] [place] Lymphocytes [#/volume] in Bl ood by Automated countOrdered By: Trinity Obrien on 11-22-2024 Lymphocytes (Bld) [#/Vol] 1.5 10*3/uL 1.00-4.8 [facility] Comment on above: Performed By: #### H EPATIC, BMP, CBC, LIPASE #### [place] [address] [place] Lymphocytes/100 leukocytes i n Blood by Automated countOrdered By: Trinity Obrien on 11-22-2024 Lymphocytes/100 WBC (Bld) 20.6 % . [facility] Comment on above: Performed By: #### H EPATIC, BMP, CBC, LIPASE #### [facility] [address] [place] [address] MCH [Entitic mass] by Automa kristi countOrdered By: Trinity Obrien on 11-22-2024 MCH (RBC) [Entitic mass] 32.8 pg 24.7-34.3 [facility] Comment on above: Performed By: #### H EPATIC, BMP, CBC, LIPASE #### [address] MCHC Auto (RBC) [Mass/Vol]Or dered By: Trinity Obrien on 11-22-2024 MCHC (RBC) [Mass/Vol] 34.6 g/dL 32.0-35.0 [facility] MCV [Entitic volume] by Auto mated countOrdered By: Trinity Obrien on 11-22-2024 MCV (RBC) [Entitic vol] 94.9 fL 80-100 [facility] Comment on above: Performed By: #### H EPATIC, BMP, CBC, LIPASE #### [address] Monocyte distribution width [Entitic volume] in Blood by AutomatedOrdered By: Trinity Obrien on 11-22-2024 Monocyte distribution width Auto (Bld) [Entitic vol] 20.64 % High 0.00-20.00 [facility] Comment on above: For adults in ED, MD W > 20.0 may be associated with a higher risk of sepsis during the first 12 hrs of hospital admission Monocytes [#/volume] in Bloo d by Automated countOrdered By: Trinity Obrien on 11-22-2024 Monocytes (Bld) [#/Vol] 1.0 10*3/uL High 0.0-0.8 [facility] Comment on above: Performed By: #### H EPATIC, BMP, CBC, LIPASE #### [address] Monocytes/100 leukocytes in Blood by Automated countOrdered By: Trinity Obrien on 11-22-2024 Monocytes/100 WBC (Bld) 13.9 % . [facility] Comment on above: Performed By: #### H EPATIC, BMP, CBC, LIPASE #### [facility] [address] [place] [address] [place] Neutrophils [#/volume] in Bl ood by Automated countOrdered By: Trinity Obrien on 11-22-2024 Neutrophils (Bld) [#/Vol] 4.8 10*3/uL 1.8-7.7 [facility] Comment on above: Performed By: #### H EPATIC, BMP, CBC, LIPASE #### [facility] [address] [place] [address] [place] Neutrophils/100 leukocytes i n Blood by Automated countOrdered By: Trinity Obrien on 11-22-2024 Neutrophils/100 WBC (Bld) 63.5 % . [facility] Comment on above: Performed By: #### H EPATIC, BMP, CBC, LIPASE #### [facility] [address] [place] [address] Nitrite Test strip Ql (U)Ord ered By: Trinity Obrien on 11-22-2024 Nitrite Ql (U) Negative Negative [facility] No Panel InformationOrdered By: Trinity Obrien on 11-22-2024 Pharmacy Creatinine Clearance (Chem 40.32 [facility] Nucleated erythrocytes [Pres ence] in Blood by Automated countOrdered By: Trinity Obrien on 11-22-2024 Nucleated RBC Auto Ql (Bld) 0.1 /100{WBC} 0-0.5 [facility] Platelet mean volume [Entiti c volume] in Blood by Automated countOrdered By: Trinity Obrien on 11-22-2024 Platelet mean volume (Bld) [Entitic vol] 7.4 fL 6.3-10.7 [facility] Comment on above: Performed By: #### H EPATIC, BMP, CBC, LIPASE #### [facility] [address] [place] [address] [place] Platelets [#/volume] in Bloo d by Automated countOrdered By: Trinity Obrien on 11-22-2024 Platelets (Bld) [#/Vol] 290 10*3/uL 150-450 [facility] Comment on above: Performed By: #### H EPATIC, BMP, CBC, LIPASE #### [facility] [address] [place] [address] Potassium [Moles/volume] in Serum or PlasmaOrdered By: Trinity Obrien on 11-22-2024 Potassium [Moles/Vol] 3.3 mmol/L Low 3.5-5.1 [facility] Comment on above: Performed By: #### H EPATIC, BMP, CBC, LIPASE #### [facility] [address] [place] [address] Protein Test strip (U) [Mass /Vol]Ordered By: Trinity Obrien on 11-22-2024 Protein (U) [Mass/Vol] Negative Negative [facility] Protein [Mass/volume] in Ser um or PlasmaOrdered By: Trinity Obrien on 11-22-2024 Protein [Mass/Vol] 6.7 g/dL 6.4-8.9 [facility] Comment on above: Performed By: #### H EPATIC, BMP, CBC, LIPASE #### [facility] [address] [place] [address] Serum globulin measurement b y calculation (mass/volume)Ordered By: Trinity Obrien on 11-22-2024 Globulin (S) [Mass/Vol] 2.7 g/dL [facility] Comment on above: Performed By: #### H EPATIC, BMP, CBC, LIPASE #### [facility] [address] [place] [address] Serum or plasma albumin/glob ulin mass ratioOrdered By: Trinity Obrien on 11-22-2024 Albumin/Globulin [Mass ratio] 1.5 {ratio} [facility] Comment on above: Performed By: #### H EPATIC, BMP, CBC, LIPASE #### [address] Serum or plasma anion gap de terminationOrdered By: Trinity Obrien on 11-22-2024 Anion gap [Moles/Vol] 11.0 mmol/L 6.0-15.0 [facility] Comment on above: Performed By: #### H EPATIC, BMP, CBC, LIPASE #### [address] Serum or plasma non-glucuron idated bilirubin measurement (mass/volume)Ordered By: Trinity Obrien on 11-22-2024 Bilirubin.indirect [Mass/Vol] 0.3 mg/dL [facility] Sodium [Moles/volume] in Ser um or PlasmaOrdered By: Trinity Obrien on 11-22-2024 Sodium [Moles/Vol] 134 mmol/L Low 136-145 [facility] Comment on above: Performed By: #### H EPATIC, BMP, CBC, LIPASE #### [address] Specific gravity Test strip (U) [Rel density]Ordered By: Trinity Obrien on 11-22-2024 Specific gravity (U) [Rel density] 1.005 1.001-1.03 0 [facility] Urea nitrogen [Mass/volume] in Serum or PlasmaOrdered By: Trinity Obrien on 11-22-2024 Urea nitrogen [Mass/Vol] 10 mg/dL 10-16 [facility] Comment on above: Performed By: #### H EPATIC, BMP, CBC, LIPASE #### [address] Urinalysison 11-22-2024 Bilirubin,Urine Negative Normal Negative [facility] Comment on above: Order Comment: Name Collection Type:: Clean-Voided Midstream Performed By: #### U A #### [address] Glucose Ql (U) Normal Normal Normal [facility] Comment on above: Order Comment: Name Collection Type:: Clean-Voided Midstream Performed By: #### U A #### [address] Nitrite,Urine Negative Normal Negative [facility] Comment on above: Order Comment: Name Collection Type:: Clean-Voided Midstream Performed By: #### U A #### [address] Occult Blood,Urine Negative Normal Negative [facility] Comment on above: Order Comment: Name Collection Type:: Clean-Voided Midstream Result Comment: PERF ORMED BY: [place] [address] PATHOLOGIST ROBOT PROGRAMMER CANDELARIA JALLOH M.D. Performed By: #### U A #### [place] [address] [place] Protein,Urine Negative Normal Negative [facility] Comment on above: Order Comment: Name Collection Type:: Clean-Voided Midstream Performed By: #### U A #### [address] Specificy Luke,Urine 1.005 Normal 1.001-1.03 0 [facility] Comment on above: Order Comment: Name Collection Type:: Clean-Voided Midstream Performed By: #### U A #### [address] Urobilinogen,Urine Normal Normal Normal [facility] Comment on above: Order Comment: Name Collection Type:: Clean-Voided Midstream Performed By: #### U A #### [address] Urobilinogen Test strip (U) [Mass/Vol]Ordered By: Trinity Obrien on 11-22-2024 Urobilinogen (U) [Mass/Vol] Normal mg/dL Normal [facility] X-ray reportOrdered By: Endy Crowley on 11-22-2024 Study report [facility] [place] [address] XRay Report Signed Patient: Genny Barboza MR#: [id number] : 1940 Acct:[id number] Age/Sex: 84 / F ADM Date: 5 Loc: ER Room: Type: [facility] ER Attending Dr: Copies to: Trinity [...] Crowley M.D. 11/22/2024 7:06 PM Dictation Location: [facility]-- Transcribed By: [facility] 11/22/241905 Dictated By: Endy Crowley II, MD 11/22/241904 Signed By: 11/22/241905 [facility] Work Phone: XR KUBon 11-22-2024 XR KUB [facility] [place] [address] XRay Report Signed Patient: Genny Barboza MR#: [id number] : 1940 Acct:[id number] Age/Sex: 84 / F ADM Date: 11/22/24 Loc: ER Room: Type: [facility] ER Attending Dr: Copies to: Trinity [...] Crowley M.D. 11/22/2024 7:06 PM Dictation Location: [place] [address] Transcribed By: CODY 11/22/241905 Dictated By: Endy Crowley II, MD 11/22/241904 Signed By: 11/22/241905 Normal [facility] pH of Urine by Test stripOrd ered By: Trinity Obrien on 11-22-2024 pH (U) 5.5 [pH] 5.0-9.0 [facility] Comment on above: Order Comment: Name Collection Type:: Clean-Voided Midstream Performed By: #### U A #### [address] Activated partial thrombopla stin time (aPTT) in platelet poor plasma by coagulation aOrdered By: Manish Dejesus on 11-16-2024 aPTT Coag (PPP) [Time] 21.9 s Low 22.3-36.2 [facility] Basophils Auto (Bld) [#/Vol] Ordered By: Manish Dejesus on 11-16-2024 Basophils (Bld) [#/Vol] 0.0 10 3/uL 0.0-0.1 [facility] Basophils/100 WBC Auto (Bld) Ordered By: Manish Dejesus on 11-16-2024 Basophils/100 WBC (Bld) 0.2 % 0.2-2.0 [facility] Eosinophils/100 WBC Auto (Bl d)Ordered By: Manish Dejesus on 11-16-2024 Eosinophils/100 WBC (Bld) 0.1 % Low 0.9-7.0 [facility] Erythrocyte distribution wid th Auto (RBC) [Ratio]Ordered By: Manish Dejesus on 11-16-2024 Erythrocyte distribution width (RBC) [Ratio] 13.9 % 11.0-15.0 [facility] Globulin Calc (S) [Mass/Vol] Ordered By: Branden Du on 11-16-2024 Globulin (S) [Mass/Vol] 3.8 g/dL [facility] Glomerular filtration rate ( GFR) estimation in non- AmericanOrdered By: Branden Du on 11-16-2024 GFR/1.73 sq M.predicted among non-blacks MDRD (S/P/Bld) [Vol rate/Area] mL/min/{1.73_m2} >=60 mL/min/1.7 3m 2 [facility] Hematocrit Auto (Bld) [Volum e fraction]Ordered By: Manish Dejesus on 11-16-2024 Hematocrit (Bld) [Volume fraction] 41.7 % 36.0-48.0 [facility] Hemoglobin [Mass/volume] in BloodOrdered By: Manish Dejesus on 11-16-2024 Hemoglobin (Bld) [Mass/Vol] 13.8 g/dL 12.0-16.0 [facility] INR in Platelet poor plasma by Coagulation assayOrdered By: Manish Dejesus on 11-16-2024 INR Coag (PPP) [Relative time] 0.97 {INR} [facility] Comment on above: DESIRED INR:2.0-3.0 CONDITIONS NOT LISTED BELOW2.5-3.5 FOR PROSTHETIC HEART VALVE REPLACEMENT2.5-3.5 RECURRENT THROMBOSIS Laboratory - Chemistry and C hemistry - challengeOrdered By: Branden Du on 11-16-2024 Albumin [Mass/Vol] 3.6 g/dL 3.4-5.0 [facility] ALP [Catalytic activity/Vol] 133 U/L High 46-116 [facility] ALT [Catalytic activity/Vol] 41 U/L 14-59 [facility] AST [Catalytic activity/Vol] 22 U/L 15-37 [facility] Bilirubin [Mass/Vol] 0.5 mg/dL 0.2-1.0 [facility] Calcium [Mass/Vol] 9.6 mg/dL 8.5-10.1 [facility] Chloride [Moles/Vol] 103 mmol/L 98-107 [facility] CO2 [Moles/Vol] 26.7 mmol/L 21.0-32.0 [facility] Creatinine [Mass/Vol] 0.73 mg/dL 0.55-1.02 [facility] GFR/1.73 sq M.predicted MDRD (S/P/Bld) [Vol rate/Area] mL/min/{1.73_m2} >=60 mL/min/1.7 3m 2 [facility] Glucose [Mass/Vol] 118 mg/dL High 74-106 [facility] Potassium [Moles/Vol] 4.4 mmol/L 3.5-5.1 [facility] Protein [Mass/Vol] 7.4 g/dL 6.4-8.2 [facility] Sodium [Moles/Vol] 140 mmol/L 136-145 [facility] Urea nitrogen [Mass/Vol] 15.0 mg/dL 7.0-18.0 [facility] Urea nitrogen/Creatinine [Mass ratio] 20.5 mg/mg [facility] Laboratory - Chemistry and C hemistry - challengeOrdered By: Manish Dejesus on 11-16-2024 Lactate [Moles/Vol] 1.4 mmol/L 0.4-2.0 [facility] Magnesium [Mass/Vol] 2.2 mg/dL 1.8-2.4 [facility] Bilirubin Ql (U) Negative NEGATIVE [facility] Glucose (U) [Mass/Vol] Negative NEGATIVE [facility] Ketones Ql (U) Negative NEGATIVE [facility] pH (U) 6.0 [pH] 5.0-9.0 [facility] Specific gravity (U) [Rel density] 1.015 1.005-1.02 5 [facility] Urobilinogen Qn (U) 0.2 {Mio'U}/dL 0.2-1.0 [facility] Laboratory - Hematology and Cell countsOrdered By: Manish Dejesus on 11-16-2024 Immature granulocytes/100 WBC (Bld) 0.4 % 0.0-0.5 [facility] Laboratory - Specimen inform ationOrdered By: Manihs Dejesus on 11-16-2024 Appearance (U) CLEAR CLEAR [facility] Color (U) LT. YELLOW YELLOW [facility] Laboratory - UrinalysisOrder ed By: Manish Dejesus on 11-16-2024 Leukocyte esterase Test strip Ql (U) Negative NEGATIVE [facility] Mucus Ql (Urine sed) NONE SEEN NONE SEEN [facility] Nitrite Ql (U) Negative NEGATIVE [facility] Protein Ql (U) Negative NEG/TRACE [facility] Leukocytes [#/volume] correc kristi for nucleated erythrocytes in Blood by Automated counOrdered By: Manish Dejesus on 11-16-2024 WBC corrected for nucl RBC Auto (Bld) [#/Vol] 9.3 10 3/uL 4.0-11.0 [facility] Lymphocytes Auto (Bld) [#/Vo l]Ordered By: Manish Dejesus on 11-16-2024 Lymphocytes (Bld) [#/Vol] 1.1 10 3/uL Low 1.2-3.8 [facility] Lymphocytes/100 WBC Auto (Bl d)Ordered By: Manish Dejesus on 11-16-2024 Lymphocytes/100 WBC (Bld) 11.2 % Low 20.5-60.0 [facility] MCH Auto (RBC) [Entitic mass ]Ordered By: Manish Dejesus on 11-16-2024 MCH (RBC) [Entitic mass] 32.4 pg 26.7-34.0 [facility] MCHC Auto (RBC) [Mass/Vol]Or dered By: Manish Dejesus on 11-16-2024 MCHC (RBC) [Mass/Vol] 33.1 g/dL 29.9-35.2 [facility] MCV Auto (RBC) [Entitic vol] Ordered By: Manish Dejesus on 11-16-2024 MCV (RBC) [Entitic vol] 97.9 fL 81.0-99.0 [facility] Monocytes Auto (Bld) [#/Vol] Ordered By: Manish Dejesus on 11-16-2024 Monocytes (Bld) [#/Vol] 0.6 10 3/uL 0.3-0.8 [facility] Monocytes/100 WBC Auto (Bld) Ordered By: Manish Dejesus on 11-16-2024 Monocytes/100 WBC (Bld) 6.7 % 1.7-12.0 [facility] Neutrophils Auto (Bld) [#/Vo l]Ordered By: Manish Dejesus on 11-16-2024 Neutrophils (Bld) [#/Vol] 7.6 10 3/uL High 1.4-6.5 [facility] Neutrophils/100 WBC Auto (Bl d)Ordered By: Manish Dejesus on 11-16-2024 Neutrophils/100 WBC (Bld) 81.4 % High 43.0-75.0 [facility] No Panel InformationOrdered By: Manish Dejesus on 11-16-2024 Eosinophils # (Auto) 0.0 10 3/uL 0.0-0.7 [facility] Immature Granulocyte # (Auto) 0.04 10 3/uL High 0.00-0.03 [facility] Troponin I High Sensitivity 5.7 pg/mL 4.0-51.3 [facility] Comment on above: CUT-OFF POINTS [...] Urine Bacteria TRACE #/HPF Abnormal NONE SEEN [facility] Urine Occult Blood TRACE-I NEGATIVE [facility] Urine Other Casts NONE SEEN #/LPF NONE SEEN [facility] Urine Other Crystals None Seen #/HPF None Seen [facility] Urine RBC 2-5 #/HPF Abnormal 0-2 [facility] Urine Squamous Epithelial Cells RARE #/LPF NONE/RARE [facility] Urine WBC 0-2 #/HPF Abnormal NONE SEEN [facility] Platelet mean volume Auto (B ld) [Entitic vol]Ordered By: Manish Dejesus on 11-16-2024 Platelet mean volume (Bld) [Entitic vol] 9.2 fL Low 9.5-13.5 [facility] Platelets Auto (Bld) [#/Vol] Ordered By: Manish Dejesus on 11-16-2024 Platelets (Bld) [#/Vol] 277 10 3/uL 150-450 [facility] Prothrombin time (PT)Ordered By: Manish Dejesus on 11-16-2024 PT Coag (PPP) [Time] 10.3 s 9.0-11.6 [facility] RBC Auto (Bld) [#/Vol]Ordere d By: Manish Dejesus on 11-16-2024 RBC (Bld) [#/Vol] 4.26 10 6/uL 4.20-5.40 [facility] Serum or plasma albumin/glob ulin mass ratioOrdered By: Branden Du on 11-16-2024 Albumin/Globulin [Mass ratio] 0.9 {ratio} [facility] Serum or plasma anion gap de terminationOrdered By: Branden Du on 11-16-2024 Anion gap [Moles/Vol] 14.7 mmol/L [facility] Basophils Auto (Bld) [#/Vol] Ordered By: Laurie Mills on 10-03-2024 Basophils (Bld) [#/Vol] 0.0 10 3/uL 0.0-0.1 [facility] Basophils/100 WBC Auto (Bld) Ordered By: Laurie Mills on 10-03-2024 Basophils/100 WBC (Bld) 0.5 % 0.2-2.0 [facility] Eosinophils/100 WBC Auto (Bl d)Ordered By: Laurie Mills on 10-03-2024 Eosinophils/100 WBC (Bld) 1.1 % 0.9-7.0 [facility] Erythrocyte distribution wid th Auto (RBC) [Ratio]Ordered By: Laurie Mills on 10-03-2024 Erythrocyte distribution width (RBC) [Ratio] 13.3 % 11.0-15.0 [facility] Estimated glomerular filtrat ion rate (GFR) non- AmericanOrdered By: Laurie Mills on 10-03-2024 GFR/1.73 sq M.predicted among non-blacks MDRD (S/P/Bld) [Vol rate/Area] mL/min/{1.73_m2} >=60 mL/min/1.7 3m 2 [facility] Globulin Calc (S) [Mass/Vol] Ordered By: Laurie Lina on 10-03-2024 Globulin (S) [Mass/Vol] 3.2 g/dL [facility] Hematocrit Auto (Bld) [Volum e fraction]Ordered By: Laurie Lina on 10-03-2024 Hematocrit (Bld) [Volume fraction] 39.3 % 36.0-48.0 [facility] Hemoglobin [Mass/volume] in BloodOrdered By: Laurie Mills on 10-03-2024 Hemoglobin (Bld) [Mass/Vol] 13.3 g/dL 12.0-16.0 [facility] Laboratory - Chemistry and C hemistry - challengeOrdered By: [facility] on 10-03-2024 Bilirubin Ql (U) Negative NEGATIVE [facility] Glucose (U) [Mass/Vol] Negative NEGATIVE [facility] Ketones Ql (U) Negative NEGATIVE [facility] pH (U) 6.0 [pH] 5.0-9.0 [facility] Specific gravity (U) [Rel density] <=1.005 Abnormal 1.005-1.02 5 [facility] Urobilinogen Qn (U) 0.2 {Mio'U}/dL 0.2-1.0 [facility] Albumin [Mass/Vol] 3.5 g/dL 3.4-5.0 [facility] ALP [Catalytic activity/Vol] 109 U/L 46-116 [facility] ALT [Catalytic activity/Vol] 30 U/L 14-59 [facility] AST [Catalytic activity/Vol] 15 U/L 15-37 [facility] Bilirubin [Mass/Vol] 0.4 mg/dL 0.2-1.0 [facility] Calcium [Mass/Vol] 9.5 mg/dL 8.5-10.1 [facility] Chloride [Moles/Vol] 104 mmol/L 98-107 [facility] CO2 [Moles/Vol] 26.7 mmol/L 21.0-32.0 [facility] Creatinine [Mass/Vol] 0.82 mg/dL 0.55-1.02 [facility] GFR/1.73 sq M.predicted MDRD (S/P/Bld) [Vol rate/Area] mL/min/{1.73_m2} >=60 mL/min/1.7 3m 2 [facility] Glucose [Mass/Vol] 112 mg/dL High 74-106 [facility] Potassium [Moles/Vol] 3.8 mmol/L 3.5-5.1 [facility] Protein [Mass/Vol] 6.7 g/dL 6.4-8.2 [facility] Sodium [Moles/Vol] 140 mmol/L 136-145 [facility] Urea nitrogen [Mass/Vol] 25.0 mg/dL High 7.0-18.0 [facility] Urea nitrogen/Creatinine [Mass ratio] 30.5 mg/mg [facility] Laboratory - Hematology and Cell countsOrdered By: Laurie Mills on 10-03-2024 Immature granulocytes/100 WBC (Bld) 0.2 % 0.0-0.5 [facility] Laboratory - Specimen inform ationOrdered By: Laurie Mills on 10-03-2024 Appearance (U) CLEAR CLEAR [facility] Color (U) LT. YELLOW YELLOW [facility] Laboratory - UrinalysisOrder ed By: Laurie Mills on 10-03-2024 Leukocyte esterase Test strip Ql (U) SMALL Abnormal NEGATIVE [facility] Mucus Ql (Urine sed) NONE SEEN NONE SEEN [facility] Nitrite Ql (U) Negative NEGATIVE [facility] Protein Ql (U) Negative NEG/TRACE [facility] Leukocytes [#/volume] correc kristi for nucleated erythrocytes in Blood by Automated counOrdered By: Laurie Mills on 10-03-2024 WBC corrected for nucl RBC Auto (Bld) [#/Vol] 6.1 10 3/uL 4.0-11.0 [facility] Lymphocytes Auto (Bld) [#/Vo l]Ordered By: Laurie Mills on 10-03-2024 Lymphocytes (Bld) [#/Vol] 1.4 10 3/uL 1.2-3.8 [facility] Lymphocytes/100 WBC Auto (Bl d)Ordered By: Laurie Mills on 10-03-2024 Lymphocytes/100 WBC (Bld) 22.6 % 20.5-60.0 [facility] MCH Auto (RBC) [Entitic mass ]Ordered By: Laurie Mills on 10-03-2024 MCH (RBC) [Entitic mass] 32.9 pg 26.7-34.0 [facility] MCHC Auto (RBC) [Mass/Vol]Or dered By: Laurie Mills on 10-03-2024 MCHC (RBC) [Mass/Vol] 33.8 g/dL 29.9-35.2 [facility] MCV Auto (RBC) [Entitic vol] Ordered By: Laurie Mills on 10-03-2024 MCV (RBC) [Entitic vol] 97.3 fL 81.0-99.0 [facility] Monocytes Auto (Bld) [#/Vol] Ordered By: Laurie Mills on 10-03-2024 Monocytes (Bld) [#/Vol] 0.7 10 3/uL 0.3-0.8 [facility] Monocytes/100 WBC Auto (Bld) Ordered By: Laurie Mills on 10-03-2024 Monocytes/100 WBC (Bld) 12.1 % High 1.7-12.0 [facility] Neutrophils Auto (Bld) [#/Vo l]Ordered By: Laurie Mills on 10-03-2024 Neutrophils (Bld) [#/Vol] 3.9 10 3/uL 1.4-6.5 [facility] Neutrophils/100 WBC Auto (Bl d)Ordered By: Laurie Mills on 10-03-2024 Neutrophils/100 WBC (Bld) 63.5 % 43.0-75.0 [facility] No Panel InformationOrdered By: Laurie Mills on 10-03-2024 Urine Bacteria SMALL #/HPF Abnormal NONE SEEN [facility] Urine Culture Reflexed YES-[facility] Urine Microscopic Review YES [facility] Urine Occult Blood TRACE-L NEGATIVE [facility] Urine Other Casts NONE SEEN #/LPF NONE SEEN [facility] Urine Other Crystals None Seen #/HPF None Seen [facility] Urine RBC 2-5 #/HPF Abnormal 0-2 [facility] Urine Squamous Epithelial Cells RARE #/LPF NONE/RARE [facility] Urine WBC 5-10 #/HPF Abnormal NONE SEEN [facility] Eosinophils # (Auto) 0.1 10 3/uL 0.0-0.7 [facility] Immature Granulocyte # (Auto) 0.01 10 3/uL 0.00-0.03 [facility] Troponin I High Sensitivity 5.7 pg/mL 4.0-51.3 [facility] Comment on above: CUT-OFF POINTS [...] volume (Bld) [Entitic vol] 9.6 fL 9.5-13.5 [facility] Platelets Auto (Bld) [#/Vol] Ordered By: Laurie Mills on 10-03-2024 Platelets (Bld) [#/Vol] 250 10 3/uL 150-450 [facility] RBC Auto (Bld) [#/Vol]Ordere d By: Laurie Mills on 10-03-2024 RBC (Bld) [#/Vol] 4.04 10 6/uL Low 4.20-5.40 [facility] Serum or plasma albumin/glob ulin mass ratioOrdered By: Laurie Mills on 10-03-2024 Albumin/Globulin [Mass ratio] 1.1 {ratio} [facility] Serum or plasma anion gap de terminationOrdered By: Laurie Mills on 10-03-2024 Anion gap [Moles/Vol] 13.1 mmol/L [facility] Urine Cultureon 10-03-2024 Bacteria identified Cx Nom (U) ORGANISM: Escherichia coli (MDRO) (O:ESCCOLMDRO) [place] Count >100,000 * This is a corrected [...] RESISTANT TO ALL B-LACTAM DRUGS. PERFORMED BY: [place] [address] PATHOLOGIST ROBOT PROGRAMMER CANDELARIA JALLOH M.D. Normal [facility] Comment on above: Performed By: #### C UU #### [address] Urine cultureOrdered By: Anisa Mills on 10-03-2024 Bacteria identified Cx Nom (U) Escherichia coli (MDRO) Abnormal [facility] Basophils Auto (Bld) [#/Vol] on 08-05-2024 Basophils (Bld) [#/Vol] Automated basophil count 0.0-0.1 [facility] Basophils (Bld) [#/Vol] 0.0 10 3/uL 0.0-0.1 [facility] Basophils/100 WBC Auto (Bld) on 08-05-2024 Basophils/100 WBC (Bld) Automated basophil % 0.2-2.0 [facility] Basophils/100 WBC (Bld) 0.6 % 0.2-2.0 [facility] Eosinophils/100 WBC Auto (Bl d)on 08-05-2024 Eosinophils/100 WBC (Bld) Automated eosinophil % 0.9-7.0 [facility] Eosinophils/100 WBC (Bld) 0.9 % 0.9-7.0 [facility] Erythrocyte distribution wid th Auto (RBC) [Ratio]on 08-05-2024 Erythrocyte distribution width (RBC) [Ratio] Erythrocyte distribution width [Ratio] by Automated count 11.0-15.0 [facility] Erythrocyte distribution width (RBC) [Ratio] 13.9 % 11.0-15.0 [facility] Estimated glomerular filtrat ion rate (GFR) non- Americanon 08-05-2024 GFR/1.73 sq M.predicted among non-blacks MDRD (S/P/Bld) [Vol rate/Area] Estimated glomerular filtration rate (GFR) non- Low >=60 mL/min/1.7 3m 2 [facility] GFR/1.73 sq M.predicted among non-blacks MDRD (S/P/Bld) [Vol rate/Area] 58 mL/min/{1.73_m2} Low >=60 mL/min/1.7 3m 2 [facility] Hematocrit Auto (Bld) [Volum e fraction]on 08-05-2024 Hematocrit (Bld) [Volume fraction] Hematocrit [Volume Fraction] of Blood by Automated count 36.0-48.0 [facility] Hematocrit (Bld) [Volume fraction] 39.6 % 36.0-48.0 [facility] Hemoglobin [Mass/volume] in Bloodon 08-05-2024 Hemoglobin (Bld) [Mass/Vol] Hemoglobin [Mass/volume] in Blood 12.0-16.0 [facility] Hemoglobin (Bld) [Mass/Vol] 13.3 g/dL 12.0-16.0 [facility] Laboratory - Chemistry and C hemistry - challengeon 08-05-2024 Calcium [Mass/Vol] 9.7 mg/dL 8.5-10.1 [facility] Chloride [Moles/Vol] 107 mmol/L 98-107 [facility] CO2 [Moles/Vol] 24.2 mmol/L 21.0-32.0 [facility] Creatinine [Mass/Vol] 0.92 mg/dL 0.55-1.02 [facility] GFR/1.73 sq M.predicted MDRD (S/P/Bld) [Vol rate/Area] mL/min/{1.73_m2} >=60 mL/min/1.7 3m 2 [facility] Glucose [Mass/Vol] 86 mg/dL 74-106 [facility] Potassium [Moles/Vol] 3.6 mmol/L 3.5-5.1 [facility] Sodium [Moles/Vol] 140 mmol/L 136-145 [facility] TSH Qn 1.563 m[IU]/L 0.358-3.74 0 [facility] Urea nitrogen [Mass/Vol] 15.0 mg/dL 7.0-18.0 [facility] Urea nitrogen/Creatinine [Mass ratio] 16.3 mg/mg [facility] Laboratory - Hematology and Cell countson 08-05-2024 Immature granulocytes/100 WBC (Bld) 0.2 % 0.0-0.5 [facility] Leukocytes [#/volume] correc kristi for nucleated erythrocytes in Blood by Automated counon 08-05-2024 WBC corrected for nucl RBC Auto (Bld) [#/Vol] Leukocytes [#/volume] corrected for nucleated erythrocytes in Blood by Automated coun 4.0-11.0 [facility] WBC corrected for nucl RBC Auto (Bld) [#/Vol] 6.3 10 3/uL 4.0-11.0 [facility] Lymphocytes Auto (Bld) [#/Vo l]on 08-05-2024 Lymphocytes (Bld) [#/Vol] Lymphocytes [#/volume] in Blood by Automated count 1.2-3.8 [facility] Lymphocytes (Bld) [#/Vol] 1.8 10 3/uL 1.2-3.8 [facility] Lymphocytes/100 WBC Auto (Bl d)on 08-05-2024 Lymphocytes/100 WBC (Bld) Lymphocytes/100 leukocytes in Blood by Automated count 20.5-60.0 [facility] Lymphocytes/100 WBC (Bld) 28.0 % 20.5-60.0 [facility] MCH Auto (RBC) [Entitic mass ]on 08-05-2024 MCH (RBC) [Entitic mass] MCH [Entitic mass] by Automated count 26.7-34.0 [facility] MCH (RBC) [Entitic mass] 32.5 pg 26.7-34.0 [facility] MCHC Auto (RBC) [Mass/Vol]on 08-05-2024 MCHC (RBC) [Mass/Vol] MCHC [Mass/volume] by Automated count 29.9-35.2 [facility] MCHC (RBC) [Mass/Vol] 33.6 g/dL 29.9-35.2 [facility] MCV Auto (RBC) [Entitic vol] on 08-05-2024 MCV (RBC) [Entitic vol] MCV [Entitic volume] by Automated count 81.0-99.0 [facility] MCV (RBC) [Entitic vol] 96.8 fL 81.0-99.0 [facility] Monocytes Auto (Bld) [#/Vol] on 08-05-2024 Monocytes (Bld) [#/Vol] Automated blood monocyte count 0.3-0.8 [facility] Monocytes (Bld) [#/Vol] 0.6 10 3/uL 0.3-0.8 [facility] Monocytes/100 WBC Auto (Bld) on 08-05-2024 Monocytes/100 WBC (Bld) Automated monocyte % 1.7-12.0 [facility] Monocytes/100 WBC (Bld) 9.7 % 1.7-12.0 [facility] Neutrophils Auto (Bld) [#/Vo l]on 08-05-2024 Neutrophils (Bld) [#/Vol] Neutrophils [#/volume] in Blood by Automated count 1.4-6.5 [facility] Neutrophils (Bld) [#/Vol] 3.8 10 3/uL 1.4-6.5 [facility] Neutrophils/100 WBC Auto (Bl d)on 08-05-2024 Neutrophils/100 WBC (Bld) Automated neutrophil % 43.0-75.0 [facility] Neutrophils/100 WBC (Bld) 60.6 % 43.0-75.0 [facility] No Panel Informationon 08-05 Eosinophils # (Auto) 0.1 10 3/uL 0.0-0.7 [facility] Immature Granulocyte # (Auto) 0.01 10 3/uL 0.00-0.03 [facility] Platelet mean volume Auto (B ld) [Entitic vol]on 08-05-2024 Platelet mean volume (Bld) [Entitic vol] Platelet mean volume [Entitic volume] in Blood by Automated count 9.5-13.5 [facility] Platelet mean volume (Bld) [Entitic vol] 9.8 fL 9.5-13.5 [facility] Platelets Auto (Bld) [#/Vol] on 08-05-2024 Platelets (Bld) [#/Vol] Platelets [#/volume] in Blood by Automated count 150-450 [facility] Platelets (Bld) [#/Vol] 265 10 3/uL 150-450 [facility] RBC Auto (Bld) [#/Vol]on RBC (Bld) [#/Vol] Erythrocytes [#/volu me] in Blood by Automated count Low 4.20-5.40 [facility] RBC (Bld) [#/Vol] 4.09 10 6/uL Low 4.20-5.40 [facility] Serum or plasma anion gap de terminationon 08-05-2024 Anion gap [Moles/Vol] Serum or plasma an ion gap determination [facility] Anion gap [Moles/Vol] 12.4 mmol/L [facility] Basophils Auto (Bld) [#/Vol] on 04-28-2024 Basophils (Bld) [#/Vol] Automated basophil count 0.0-0.1 [facility] Basophils/100 WBC Auto (Bld) on 04-28-2024 Basophils/100 WBC (Bld) Automated basophil % 0.2-2.0 [facility] Eosinophils/100 WBC Auto (Bl d)on 04-28-2024 Eosinophils/100 WBC (Bld) Automated eosinophil % Low 0.9-7.0 [facility] Erythrocyte distribution wid th Auto (RBC) [Ratio]on 04-28-2024 Erythrocyte distribution width (RBC) [Ratio] Erythrocyte distribution width [Ratio] by Automated count 11.0-15.0 [facility] Hematocrit Auto (Bld) [Volum e fraction]on 04-28-2024 Hematocrit (Bld) [Volume fraction] Hematocrit [Volume Fraction] of Blood by Automated count 36.0-48.0 [facility] Hemoglobin [Mass/volume] in Bloodon 04-28-2024 Hemoglobin (Bld) [Mass/Vol] Hemoglobin [Mass/volume] in Blood 12.0-16.0 [facility] Laboratory - Chemistry and C hemistry - challengeon 04-28-2024 Cobalamin (Vitamin B12) [Mass/Vol] 811 pg/mL [id number] [facility] Comment on above: Performed at: [address] [id number] Director: Aime Fabian PhD, Phone: [phone] TSH Qn 2.025 m[IU]/L 0.358-3.74 0 [facility] Laboratory - Hematology and Cell countson 04-28-2024 Immature granulocytes/100 WBC (Bld) 0.1 % 0.0-0.5 [facility] Leukocytes [#/volume] correc kristi for nucleated erythrocytes in Blood by Automated counon 04-28-2024 WBC corrected for nucl RBC Auto (Bld) [#/Vol] Leukocytes [#/volume] corrected for nucleated erythrocytes in Blood by Automated coun 4.0-11.0 [facility] Lymphocytes Auto (Bld) [#/Vo l]on 04-28-2024 Lymphocytes (Bld) [#/Vol] Lymphocytes [#/volume] in Blood by Automated count 1.2-3.8 [facility] Lymphocytes/100 WBC Auto (Bl d)on 04-28-2024 Lymphocytes/100 WBC (Bld) Lymphocytes/100 leukocytes in Blood by Automated count 20.5-60.0 [facility] MCH Auto (RBC) [Entitic mass ]on 04-28-2024 MCH (RBC) [Entitic mass] MCH [Entitic mass] by Automated count 26.7-34.0 [facility] MCHC Auto (RBC) [Mass/Vol]on 04-28-2024 MCHC (RBC) [Mass/Vol] MCHC [Mass/volume] by Automated count 29.9-35.2 [facility] MCV Auto (RBC) [Entitic vol] on 04-28-2024 MCV (RBC) [Entitic vol] MCV [Entitic volume] by Automated count 81.0-99.0 [facility] Monocytes Auto (Bld) [#/Vol] on 04-28-2024 Monocytes (Bld) [#/Vol] Automated blood monocyte count 0.3-0.8 [facility] Monocytes/100 WBC Auto (Bld) on 04-28-2024 Monocytes/100 WBC (Bld) Automated monocyte % 1.7-12.0 [facility] Neutrophils Auto (Bld) [#/Vo l]on 04-28-2024 Neutrophils (Bld) [#/Vol] Neutrophils [#/volume] in Blood by Automated count 1.4-6.5 [facility] Neutrophils/100 WBC Auto (Bl d)on 04-28-2024 Neutrophils/100 WBC (Bld) Automated neutrophil % 43.0-75.0 [facility] No Panel Informationon 04-28 Eosinophils # (Auto) 0.1 10 3/uL 0.0-0.7 [facility] Immature Granulocyte # (Auto) 0.01 10 3/uL 0.00-0.03 [facility] Platelet mean volume Auto (B ld) [Entitic vol]on 04-28-2024 Platelet mean volume (Bld) [Entitic vol] Platelet mean volume [Entitic volume] in Blood by Automated count 9.5-13.5 [facility] Platelets Auto (Bld) [#/Vol] on 04-28-2024 Platelets (Bld) [#/Vol] Platelets [#/volume] in Blood by Automated count 150-450 [facility] RBC Auto (Bld) [#/Vol]on RBC (Bld) [#/Vol] Erythrocytes [#/volu me] in Blood by Automated count Low 4.20-5.40 [facility] Serum or plasma methylmalona te measurement (moles/volume)on 04-28-2024 Methylmalonate [Moles/Vol] Serum or plasma methylmalonate measurement (moles/volume) 0-378 [facility] Comment on above: This test was develo ped and its performance characteristicsdetermined by [employer]. It has not been cleared orapproved by the Food and Drug Administration.Performed at: [address] [id number] Director: Guanaco Russell MD, Phone: [phone] Basophils Auto (Bld) [#/Vol] on 03-12-2024 Basophils (Bld) [#/Vol] Automated basophil count 0.0-0.1 [facility] Basophils/100 WBC Auto (Bld) on 03-12-2024 Basophils/100 WBC (Bld) Automated basophil % 0.2-2.0 [facility] Cholesterol in LDL Calc [Mas s/Vol]on 03-12-2024 Cholesterol in LDL [Mass/Vol] Cholesterol in LDL [Mass/volume] in Serum or Plasma by calculation [facility] Comment on above: <100 mg/dl [id number] 0-129 mg/dl NEAR OR ABOVE [id number] mg/dl BORDERLINE [id number] mg/dl HIGH>190 mg/dl VERY HIGH Cholesterol in VLDL Calc [Ma ss/Vol]on 03-12-2024 Cholesterol in VLDL [Mass/Vol] Cholesterol in VLDL [Mass/volume] in Serum or Plasma by calculation [facility] Eosinophils/100 WBC Auto (Bl d)on 03-12-2024 Eosinophils/100 WBC (Bld) Automated eosinophil % Low 0.9-7.0 [facility] Erythrocyte distribution wid th Auto (RBC) [Ratio]on 03-12-2024 Erythrocyte distribution width (RBC) [Ratio] Erythrocyte distribution width [Ratio] by Automated count 11.0-15.0 [facility] Estimated glomerular filtrat ion rate (GFR) non- Americanon 03-12-2024 GFR/1.73 sq M.predicted among non-blacks MDRD (S/P/Bld) [Vol rate/Area] Estimated glomerular filtration rate (GFR) non- Low >=60 mL/min/1.7 3m 2 [facility] Globulin Calc (S) [Mass/Vol] on 03-12-2024 Globulin (S) [Mass/Vol] Serum globulin measurement by calculation (mass/volume) [facility] Hematocrit Auto (Bld) [Volum e fraction]on 03-12-2024 Hematocrit (Bld) [Volume fraction] Hematocrit [Volume Fraction] of Blood by Automated count 36.0-48.0 [facility] Hemoglobin [Mass/volume] in Bloodon 03-12-2024 Hemoglobin (Bld) [Mass/Vol] Hemoglobin [Mass/volume] in Blood 12.0-16.0 [facility] IgA [Mass/volume] in Serum o r Plasmaon 03-12-2024 IgA [Mass/Vol] IgA [Mass/volume] in Serum or Plasma 64-422 [facility] Comment on above: Performed at: [address] [id number] Director: Aime Fabian PhD, Phone: [phone] Laboratory - Chemistry and C hemistry - challengeon 03-12-2024 Albumin [Mass/Vol] 3.5 g/dL 3.4-5.0 [facility] ALP [Catalytic activity/Vol] 123 U/L High 46-116 [facility] ALT [Catalytic activity/Vol] 32 U/L 14-59 [facility] AST [Catalytic activity/Vol] 17 U/L 15-37 [facility] Bilirubin [Mass/Vol] 0.6 mg/dL 0.2-1.0 [facility] Calcium [Mass/Vol] 9.1 mg/dL 8.5-10.1 [facility] Chloride [Moles/Vol] 107 mmol/L 98-107 [facility] Cholesterol [Mass/Vol] 199 mg/dL <=200 [facility] Cholesterol in HDL [Mass/Vol] 128 mg/dL High 40-60 [facility] Comment on above: > or =60 mg/dl - LOW CARDIOVASCULAR RISK<40 mg/dl - HIGH CARDIOVASCULAR RISK CO2 [Moles/Vol] 25.5 mmol/L 21.0-32.0 [facility] Creatinine [Mass/Vol] 0.97 mg/dL 0.55-1.02 [facility] GFR/1.73 sq M.predicted MDRD (S/P/Bld) [Vol rate/Area] mL/min/{1.73_m2} >=60 mL/min/1.7 3m 2 [facility] Glucose [Mass/Vol] 91 mg/dL 74-106 [facility] Potassium [Moles/Vol] 3.7 mmol/L 3.5-5.1 [facility] Protein [Mass/Vol] 6.8 g/dL 6.4-8.2 [facility] Sodium [Moles/Vol] 143 mmol/L 136-145 [facility] Triglyceride [Mass/Vol] 65 mg/dL <=150 [facility] Urea nitrogen [Mass/Vol] 15.0 mg/dL 7.0-18.0 [facility] Urea nitrogen/Creatinine [Mass ratio] 15.5 mg/mg [facility] Laboratory - Hematology and Cell countson 03-12-2024 Immature granulocytes/100 WBC (Bld) 0.1 % 0.0-0.5 [facility] Leukocytes [#/volume] correc kristi for nucleated erythrocytes in Blood by Automated counon 03-12-2024 WBC corrected for nucl RBC Auto (Bld) [#/Vol] Leukocytes [#/volume] corrected for nucleated erythrocytes in Blood by Automated coun 4.0-11.0 [facility] Lymphocytes Auto (Bld) [#/Vo l]on 03-12-2024 Lymphocytes (Bld) [#/Vol] Lymphocytes [#/volume] in Blood by Automated count 1.2-3.8 [facility] Lymphocytes/100 WBC Auto (Bl d)on 03-12-2024 Lymphocytes/100 WBC (Bld) Lymphocytes/100 leukocytes in Blood by Automated count 20.5-60.0 [facility] MCH Auto (RBC) [Entitic mass ]on 03-12-2024 MCH (RBC) [Entitic mass] MCH [Entitic mass] by Automated count 26.7-34.0 [facility] MCHC Auto (RBC) [Mass/Vol]on 03-12-2024 MCHC (RBC) [Mass/Vol] MCHC [Mass/volume] by Automated count 29.9-35.2 [facility] MCV Auto (RBC) [Entitic vol] on 03-12-2024 MCV (RBC) [Entitic vol] MCV [Entitic volume] by Automated count 81.0-99.0 [facility] Monocytes Auto (Bld) [#/Vol] on 03-12-2024 Monocytes (Bld) [#/Vol] Automated blood monocyte count 0.3-0.8 [facility] Monocytes/100 WBC Auto (Bld) on 03-12-2024 Monocytes/100 WBC (Bld) Automated monocyte % 1.7-12.0 [facility] Neutrophils Auto (Bld) [#/Vo l]on 03-12-2024 Neutrophils (Bld) [#/Vol] Neutrophils [#/volume] in Blood by Automated count 1.4-6.5 [facility] Neutrophils/100 WBC Auto (Bl d)on 03-12-2024 Neutrophils/100 WBC (Bld) Automated neutrophil % 43.0-75.0 [facility] No Panel Informationon 03-12 Endomysial IgA Antibody Negative Negative [facility] Eosinophils # (Auto) 0.1 10 3/uL 0.0-0.7 [facility] Immature Granulocyte # (Auto) 0.01 10 3/uL 0.00-0.03 [facility] Platelet mean volume Auto (B ld) [Entitic vol]on 03-12-2024 Platelet mean volume (Bld) [Entitic vol] Platelet mean volume [Entitic volume] in Blood by Automated count 9.5-13.5 [facility] Platelets Auto (Bld) [#/Vol] on 03-12-2024 Platelets (Bld) [#/Vol] Platelets [#/volume] in Blood by Automated count 150-450 [facility] RBC Auto (Bld) [#/Vol]on RBC (Bld) [#/Vol] Erythrocytes [#/volu me] in Blood by Automated count Low 4.20-5.40 [facility] Serum gliadin peptide IgA an tibody assay (units/volume)on 03-12-2024 Gliadin peptide IgA Qn (S) Serum gliadin peptide IgA antibody assay (units/volume) [facility] Comment on above: Negative 0 - 19 Weak Positive 20 - 30 Moderate to Strong Positive >30 Serum gliadin peptide IgG an tibody assay (units/volume)on 03-12-2024 Gliadin peptide IgG Qn (S) Serum gliadin peptide IgG antibody assay (units/volume) [facility] Comment on above: Negative 0 - 19 Weak Positive 20 - 30 Moderate to Strong Positive >30 Serum or plasma albumin/glob ulin mass ratioon 03-12-2024 Albumin/Globulin [Mass ratio] Serum or plasma albumin/globulin mass ratio [facility] Serum or plasma anion gap de terminationon 03-12-2024 Anion gap [Moles/Vol] Serum or plasma an ion gap determination [facility] Serum or plasma total choles terol/high density lipoprotein (HDL) cholesterol mass henry 03-12-2024 Cholesterol.total/Cho lesterol in HDL [Mass ratio] Serum or plasma total cholesterol/high density lipoprotein (HDL) cholesterol mass rat [facility] Comment on above: 3.3 - 4.4 LOW RISK4. 4 - 7.1 AVERAGE RISK7.1 - 11.0 MODERATE RISK>11.0 HIGH RISK Serum tissue transglutaminas e (tTG) IgA antibody assay (units/volume)on 03-12-2024 tTG IgA Qn (S) Serum tissue transglutaminase (tTG) IgA antibody assay (units/volume) 0-3 [facility] Comment on above: Negative 0 [...] (tTG) IgG antibody assay (units/volume) Abnormal 0-5 [facility] Comment on above: Negative 0 - 5 Weak Positive 6 - 9 Positive >9 ECG 12 Leadon 12-20-2023 Normal sinus rhythm, leftward axis, low voltage, nonspecific ST-T wave abnormality, abnormal ECG [facility] Work Phone: Activated partial thrombopla stin time (aPTT) in platelet poor plasma by coagulation aOrdered By: PROVIDER TEMP on 11-05-2023 aPTT Coag (PPP) [Time] 30.2 s 25.1-36.5 [facility] Comment on above: A hematocrit value g reater than 55% may lead to inaccurate results in coagulation testing. Patients having hematocrit values >55% require a special collection tube for coagulation studies. Please contact the laboratory at [phone] for redraw instructions. Alanine aminotransferase [En zymatic activity/volume] in Serum or PlasmaOrdered By: PROVIDER TEMP on 11-05-2023 ALT [Catalytic activity/Vol] 27 U/L 7-52 [facility] Albumin [Mass/volume] in Ser um or Plasma by Bromocresol green (BCG) dye binding methoOrdered By: PROVIDER TEMP on 11-05-2023 Albumin BCG dye [Mass/Vol] 4.1 g/dL 3.5-5.7 [facility] Alkaline phosphatase [Enzyma tic activity/volume] in Serum or PlasmaOrdered By: PROVIDER TEMP on 11-05-2023 ALP [Catalytic activity/Vol] 99 U/L 34-104 [facility] Aspartate aminotransferase [ Enzymatic activity/volume] in Serum or PlasmaOrdered By: PROVIDER TEMP on 11-05-2023 AST [Catalytic activity/Vol] 19 U/L 13-39 [facility] Basophils Auto (Bld) [#/Vol] Ordered By: PROVIDER TEMP on 11-05-2023 Basophils (Bld) [#/Vol] 0.1 10*3/uL 0.0-0.2 [facility] Basophils/100 WBC Auto (Bld) Ordered By: PROVIDER TEMP on 11-05-2023 Basophils/100 WBC (Bld) 0.8 % . [facility] Bilirubin.total [Mass/volume ] in Serum or PlasmaOrdered By: PROVIDER TEMP on 11-05-2023 Bilirubin [Mass/Vol] 0.5 mg/dL 0.3-1.0 [facility] Calcium [Mass/volume] in Ser um or PlasmaOrdered By: PROVIDER TEMP on 11-05-2023 Calcium [Mass/Vol] 9.6 mg/dL 8.6-10.3 [facility] Carbon dioxide, total [Moles /volume] in Serum or PlasmaOrdered By: PROVIDER TEMP on 11-05-2023 CO2 [Moles/Vol] 22.2 mmol/L 21.0-31.0 [facility] Chloride [Moles/volume] in S carolyne or PlasmaOrdered By: PROVIDER TEMP on 11-05-2023 Chloride [Moles/Vol] 109 mmol/L High 98-107 [facility] Creatine kinase [Enzymatic a ctivity/volume] in Serum or PlasmaOrdered By: PROVIDER TEMP on 11-05-2023 CK [Catalytic activity/Vol] 66 U/L 30-223 [facility] Creatinine [Mass/volume] in Serum or PlasmaOrdered By: PROVIDER TEMP on 11-05-2023 Creatinine [Mass/Vol] 0.87 mg/dL 0.60-1.20 [facility] Eosinophils Auto (Bld) [#/Vo l]Ordered By: PROVIDER TEMP on 11-05-2023 Eosinophils (Bld) [#/Vol] 0.1 10*3/uL 0.0-0.45 [facility] Eosinophils/100 WBC Auto (Bl d)Ordered By: PROVIDER TEMP on 11-05-2023 Eosinophils/100 WBC (Bld) 0.8 % . [facility] Erythrocyte distribution wid th Auto (RBC) [Ratio]Ordered By: PROVIDER TEMP on 11-05-2023 Erythrocyte distribution width (RBC) [Ratio] 13.4 % 11.9-15.3 [facility] Globulin Calc (S) [Mass/Vol] Ordered By: PROVIDER TEMP on 11-05-2023 Globulin (S) [Mass/Vol] 2.7 g/dL [facility] Glucose [Mass/volume] in Ser um or PlasmaOrdered By: PROVIDER TEMP on 11-05-2023 Glucose [Mass/Vol] 104 mg/dL High 70-100 [facility] Comment on above: ADA recommended refe rence rangeRandom Glucose Reference Range is dependent on time and content of last meal. Glucose of more than 200 mg/dL in a nonstressed, ambulatory subject supports the diagnosis of Diabetes Mellitus. Hematocrit Auto (Bld) [Volum e fraction]Ordered By: PROVIDER TEMP on 11-05-2023 Hematocrit (Bld) [Volume fraction] 40.1 % 34.0-46.4 [facility] Hemoglobin [Mass/volume] in BloodOrdered By: PROVIDER TEMP on 11-05-2023 Hemoglobin (Bld) [Mass/Vol] 13.7 g/dL 11.8-15.4 [facility] INR in Platelet poor plasma by Coagulation assayOrdered By: PROVIDER TEMP on 11-05-2023 INR Coag (PPP) [Relative time] 0.9 {INR} [facility] Comment on above: INR Therapeutic [...] RBC Auto (Bld) [#/Vol] 6.7 10*3/uL 3.8-11.6 [facility] Lymphocytes Auto (Bld) [#/Vo l]Ordered By: PROVIDER TEMP on 11-05-2023 Lymphocytes (Bld) [#/Vol] 1.0 10*3/uL 1.00-4.8 [facility] Lymphocytes/100 WBC Auto (Bl d)Ordered By: PROVIDER TEMP on 11-05-2023 Lymphocytes/100 WBC (Bld) 15.0 % . [facility] MCH Auto (RBC) [Entitic mass ]Ordered By: PROVIDER TEMP on 11-05-2023 MCH (RBC) [Entitic mass] 32.6 pg 24.7-34.3 [facility] MCHC Auto (RBC) [Mass/Vol]Or dered By: PROVIDER TEMP on 11-05-2023 MCHC (RBC) [Mass/Vol] 34.2 g/dL 32.0-35.0 [facility] MCV Auto (RBC) [Entitic vol] Ordered By: PROVIDER TEMP on 11-05-2023 MCV (RBC) [Entitic vol] 95.5 fL 80-100 [facility] Monocyte distribution width [Entitic volume] in Blood by AutomatedOrdered By: PROVIDER TEMP on 11-05-2023 Monocyte distribution width Auto (Bld) [Entitic vol] 20.41 % High 0.00-20.00 [facility] Comment on above: For adults in ED, MD W > 20.0 may be associated with a higher risk of sepsis during the first 12 hrs of hospital admission Monocytes Auto (Bld) [#/Vol] Ordered By: PROVIDER TEMP on 11-05-2023 Monocytes (Bld) [#/Vol] 0.6 10*3/uL 0.0-0.8 [facility] Monocytes/100 WBC Auto (Bld) Ordered By: PROVIDER TEMP on 11-05-2023 Monocytes/100 WBC (Bld) 9.6 % . [facility] Natriuretic peptide B [Mass/ Vol]Ordered By: PROVIDER TEMP on 11-05-2023 Natriuretic peptide B (Bld) [Mass/Vol] 293.0 pg/mL High 5-100 [facility] Neutrophils Auto (Bld) [#/Vo l]Ordered By: PROVIDER TEMP on 11-05-2023 Neutrophils (Bld) [#/Vol] 5.0 10*3/uL 1.8-7.7 [facility] Neutrophils/100 WBC Auto (Bl d)Ordered By: PROVIDER TEMP on 11-05-2023 Neutrophils/100 WBC (Bld) 73.8 % . [facility] No Panel InformationOrdered By: PROVIDER TEMP on 11-05-2023 Estimated GFR (CKD-EPI) > 60.0 mL/Min [facility] Creatinine Clearance (Chem 42.53 [facility] Nucleated erythrocytes [Pres ence] in Blood by Automated countOrdered By: PROVIDER TEMP on 11-05-2023 Nucleated RBC Auto Ql (Bld) 0.1 /100{WBC} 0-0.5 [facility] Platelet mean volume Auto (B ld) [Entitic vol]Ordered By: PROVIDER TEMP on 11-05-2023 Platelet mean volume (Bld) [Entitic vol] 8.0 fL 6.3-10.7 [facility] Platelets Auto (Bld) [#/Vol] Ordered By: PROVIDER TEMP on 11-05-2023 Platelets (Bld) [#/Vol] 314 10*3/uL 150-450 [facility] Potassium [Moles/volume] in Serum or PlasmaOrdered By: PROVIDER TEMP on 11-05-2023 Potassium [Moles/Vol] 4.3 mmol/L 3.5-5.1 [facility] Protein [Mass/volume] in Ser um or PlasmaOrdered By: PROVIDER TEMP on 11-05-2023 Protein [Mass/Vol] 6.8 g/dL 6.4-8.9 [facility] Prothrombin time (PT)Ordered By: PROVIDER TEMP on 11-05-2023 PT Coag (PPP) [Time] 11.0 s 9.0-12.9 [facility] Comment on above: A hematocrit value g reater than 55% may lead to inaccurate results in coagulation testing. Patients having hematocrit values >55% require a special collection tube for coagulation studies. Please contact the laboratory at [phone] for redraw instructions. RBC Auto (Bld) [#/Vol]Ordere d By: PROVIDER TEMP on 11-05-2023 RBC (Bld) [#/Vol] 4.19 10*6/uL 3.60-5.00 [facility] Serum or plasma albumin/glob ulin mass ratioOrdered By: PROVIDER TEMP on 11-05-2023 Albumin/Globulin [Mass ratio] 1.5 {ratio} [facility] Serum or plasma anion gap de terminationOrdered By: PROVIDER TEMP on 11-05-2023 Anion gap [Moles/Vol] 12.1 mmol/L 6.0-15.0 [facility] Sodium [Moles/volume] in Ser um or PlasmaOrdered By: PROVIDER TEMP on 11-05-2023 Sodium [Moles/Vol] 139 mmol/L 136-145 [facility] Troponin I.cardiac [Mass/vol ume] in Serum or Plasma by Detection limit <= 0.01 ng/Ordered By: Rona Andres on 11-05-2023 Troponin I.cardiac DL <= 0.01 ng/mL [Mass/Vol] 36.1 pg/mL High 0.0-15.0 [facility] Urea nitrogen [Mass/volume] in Serum or PlasmaOrdered By: PROVIDER TEMP on 11-05-2023 Urea nitrogen [Mass/Vol] 20 mg/dL 7-25 [facility] WBC Auto (Bld) [#/Vol]Ordere d By: PROVIDER TEMP on 11-05-2023 WBC (Bld) [#/Vol] 6.7 10*3/uL 3.8-11.6 [facility] Basophils Auto (Bld) [#/Vol] Ordered By: Reji Frausto on 10-29-2023 Basophils (Bld) [#/Vol] 0.1 10*3/uL 0.0-0.2 [facility] Basophils/100 WBC Auto (Bld) Ordered By: Reji Frausto on 10-29-2023 Basophils/100 WBC (Bld) 0.7 % . [facility] Calcium [Mass/volume] in Ser um or PlasmaOrdered By: Reji Frausto on 10-29-2023 Calcium [Mass/Vol] 9.3 mg/dL 8.6-10.3 [facility] Carbon dioxide, total [Moles /volume] in Serum or PlasmaOrdered By: Reji Frausto on 10-29-2023 CO2 [Moles/Vol] 24.3 mmol/L 21.0-31.0 [facility] Chloride [Moles/volume] in S carolyne or PlasmaOrdered By: Reji Frausto on 10-29-2023 Chloride [Moles/Vol] 109 mmol/L High 98-107 [facility] Creatinine [Mass/volume] in Serum or PlasmaOrdered By: Reji Frausto on 10-29-2023 Creatinine [Mass/Vol] 0.91 mg/dL 0.60-1.20 [facility] Eosinophils Auto (Bld) [#/Vo l]Ordered By: Reji Frausto on 10-29-2023 Eosinophils (Bld) [#/Vol] 0.0 10*3/uL 0.0-0.45 [facility] Eosinophils/100 WBC Auto (Bl d)Ordered By: Reji Frausto on 10-29-2023 Eosinophils/100 WBC (Bld) 0.6 % . [facility] Erythrocyte distribution wid th Auto (RBC) [Ratio]Ordered By: Reji Frausto on 10-29-2023 Erythrocyte distribution width (RBC) [Ratio] 13.8 % 11.9-15.3 [facility] Glucose [Mass/volume] in Ser um or PlasmaOrdered By: Reji Frausto on 10-29-2023 Glucose [Mass/Vol] 105 mg/dL High 70-100 [facility] Comment on above: ADA recommended refe rence rangeRandom Glucose Reference Range is dependent on time and content of last meal. Glucose of more than 200 mg/dL in a nonstressed, ambulatory subject supports the diagnosis of Diabetes Mellitus. Hematocrit Auto (Bld) [Volum e fraction]Ordered By: Reji Frausto on 10-29-2023 Hematocrit (Bld) [Volume fraction] 38.2 % 34.0-46.4 [facility] Hemoglobin [Mass/volume] in BloodOrdered By: Reji Frausto on 10-29-2023 Hemoglobin (Bld) [Mass/Vol] 12.9 g/dL 11.8-15.4 [facility] Leukocytes [#/volume] correc kristi for nucleated erythrocytes in Blood by Automated counOrdered By: Reji Frausto on 10-29-2023 WBC corrected for nucl RBC Auto (Bld) [#/Vol] 8.1 10*3/uL 3.8-11.6 [facility] Lymphocytes Auto (Bld) [#/Vo l]Ordered By: Reji Frausto on 10-29-2023 Lymphocytes (Bld) [#/Vol] 1.3 10*3/uL 1.00-4.8 [facility] Lymphocytes/100 WBC Auto (Bl d)Ordered By: Reji Frausto on 10-29-2023 Lymphocytes/100 WBC (Bld) 15.8 % . [facility] MCH Auto (RBC) [Entitic mass ]Ordered By: Reji Frausto on 10-29-2023 MCH (RBC) [Entitic mass] 32.7 pg 24.7-34.3 [facility] MCHC Auto (RBC) [Mass/Vol]Or dered By: Reji Frausto on 10-29-2023 MCHC (RBC) [Mass/Vol] 33.9 g/dL 32.0-35.0 [facility] MCV Auto (RBC) [Entitic vol] Ordered By: Reji Frausto on 10-29-2023 MCV (RBC) [Entitic vol] 96.5 fL 80-100 [facility] Monocytes Auto (Bld) [#/Vol] Ordered By: Reji Frausto on 10-29-2023 Monocytes (Bld) [#/Vol] 0.8 10*3/uL 0.0-0.8 [facility] Monocytes/100 WBC Auto (Bld) Ordered By: Reji Frausto on 10-29-2023 Monocytes/100 WBC (Bld) 9.4 % . [facility] Neutrophils Auto (Bld) [#/Vo l]Ordered By: Reji Frausto on 10-29-2023 Neutrophils (Bld) [#/Vol] 5.9 10*3/uL 1.8-7.7 [facility] Neutrophils/100 WBC Auto (Bl d)Ordered By: Reji Frausto on 10-29-2023 Neutrophils/100 WBC (Bld) 73.5 % . [facility] No Panel InformationOrdered By: Reji Frausto on 10-29-2023 Estimated GFR (CKD-EPI) > 60.0 mL/Min [facility] Creatinine Clearance (Chem 41.47 [facility] Nucleated erythrocytes [Pres ence] in Blood by Automated countOrdered By: Reji Frausto on 10-29-2023 Nucleated RBC Auto Ql (Bld) 0.1 /100{WBC} 0-0.5 [facility] Platelet mean volume Auto (B ld) [Entitic vol]Ordered By: Reji Frausto on 10-29-2023 Platelet mean volume (Bld) [Entitic vol] 8.0 fL 6.3-10.7 [facility] Platelets Auto (Bld) [#/Vol] Ordered By: Reji Frausto on 10-29-2023 Platelets (Bld) [#/Vol] 261 10*3/uL 150-450 [facility] Potassium [Moles/volume] in Serum or PlasmaOrdered By: Reji Frausto on 10-29-2023 Potassium [Moles/Vol] 4.0 mmol/L 3.5-5.1 [facility] RBC Auto (Bld) [#/Vol]Ordere d By: Reji Frausto on 10-29-2023 RBC (Bld) [#/Vol] 3.96 10*6/uL 3.60-5.00 [facility] Serum or plasma anion gap de terminationOrdered By: Reji Frausto on 10-29-2023 Anion gap [Moles/Vol] 8.7 mmol/L 6.0-15.0 [facility] Sodium [Moles/volume] in Ser um or PlasmaOrdered By: Reji Frausto on 10-29-2023 Sodium [Moles/Vol] 138 mmol/L 136-145 [facility] Urea nitrogen [Mass/volume] in Serum or PlasmaOrdered By: Reji Frausto on 10-29-2023 Urea nitrogen [Mass/Vol] 17 mg/dL 7-25 [facility] WBC Auto (Bld) [#/Vol]Ordere d By: Reji Frausto on 10-29-2023 WBC (Bld) [#/Vol] 8.1 10*3/uL 3.8-11.6 [facility] Cholesterol [Mass/volume] in Serum or PlasmaOrdered By: Reji Frausto on 10-28-2023 Cholesterol [Mass/Vol] 241 mg/dL High 140-200 [facility] Comment on above: Chol less than 200 m g/dl low riskChol 201-239 mg/dl borderline riskChol 240 mg/dl and greater high risk Cholesterol in LDL Calc [Mas s/Vol]Ordered By: Reji Frausto on 10-28-2023 Cholesterol in LDL [Mass/Vol] 108 mg/dL High 0-100 [facility] Comment on above: LDL ATP III CLASSIFI CATIONLDL less than 100 mg/dL OptimalLDL 100-129 mg/dL Near or above optimalLDL 130-159 mg/dL Borderline highLDL 160-189 mg/dL HighLDL greater than 189 mg/dL Very high Cholesterol in VLDL Calc [Ma ss/Vol]Ordered By: Reji Frausto on 10-28-2023 Cholesterol in VLDL [Mass/Vol] 20 mg/dL [facility] Serum or plasma high density lipoprotein (HDL) cholesterol measurementOrdered By: Reji Frausto on 10-28-2023 Cholesterol in HDL [Mass/Vol] 112 mg/dL High 23-92 [facility] Comment on above: HDL CHOL ATP-III CLA SSIFICATION Cardiovascular RiskHDL > or equal to 60 mg/dL LOWHDL < 40 mg/dL HIGH Serum or plasma total choles terol/high density lipoprotein (HDL) cholesterol mass ratOrdered By: Reji Frausto on 10-28-2023 Cholesterol.total/Cho lesterol in HDL [Mass ratio] 2.2 {ratio} <5.0 [facility] Triglyceride [Mass/volume] i n Serum or PlasmaOrdered By: Reji Frausto on 10-28-2023 Triglyceride [Mass/Vol] 103 mg/dL 0-149 [facility] Comment on above: TRIG ATP [...] Troponin I.cardiac DL <= 0.01 ng/mL [Mass/Vol] 92503.4 pg/mL High 0.0-15.0 [facility] Comment on above: Critical Result : Ca lled to and read back by: ELLA SCOTT at: 10/28/2023 05:06:20 by:[id number] Activated partial thrombopla stin time (aPTT) in platelet poor plasma by coagulation aOrdered By: Doe Álvarez on 10-27-2023 aPTT Coag (PPP) [Time] 23.1 s Low 25.1-36.5 [facility] Comment on above: A hematocrit value g reater than 55% may lead to inaccurate results in coagulation testing. Patients having hematocrit values >55% require a special collection tube for coagulation studies. Please contact the laboratory at [phone] for redraw instructions. Alanine aminotransferase [En zymatic activity/volume] in Serum or PlasmaOrdered By: Doe Álvarez on 10-27-2023 ALT [Catalytic activity/Vol] 36 U/L 7-52 [facility] Albumin [Mass/volume] in Ser um or Plasma by Bromocresol green (BCG) dye binding methoOrdered By: Doe Álvarez on 10-27-2023 Albumin BCG dye [Mass/Vol] 4.4 g/dL 3.5-5.7 [facility] Alkaline phosphatase [Enzyma tic activity/volume] in Serum or PlasmaOrdered By: Doe Álvarez 10-27-2023 ALP [Catalytic activity/Vol] 86 U/L 34-104 [facility] Aspartate aminotransferase [ Enzymatic activity/volume] in Serum or PlasmaOrdered By: Doe Álvarez 10-27-2023 AST [Catalytic activity/Vol] 60 U/L High 13-39 [facility] Basophils Auto (Bld) [#/Vol] Ordered By: Doe Álvarez 10-27-2023 Basophils (Bld) [#/Vol] 0.1 10*3/uL 0.0-0.2 [facility] Basophils/100 WBC Auto (Bld) Ordered By: Doe Álvarez 10-27-2023 Basophils/100 WBC (Bld) 1.3 % . [facility] Bilirubin.total [Mass/volume ] in Serum or PlasmaOrdered By: Doe Álvarez 10-27-2023 Bilirubin [Mass/Vol] 0.7 mg/dL 0.3-1.0 [facility] Calcium [Mass/volume] in Ser um or PlasmaOrdered By: Doe Álvarez 10-27-2023 Calcium [Mass/Vol] 10.0 mg/dL 8.6-10.3 [facility] Carbon dioxide, total [Moles /volume] in Serum or PlasmaOrdered By: Doe Álvarez on 10-27-2023 CO2 [Moles/Vol] 21.0 mmol/L 21.0-31.0 [facility] Chloride [Moles/volume] in S carolyne or PlasmaOrdered By: Doe Álvarez on 10-27-2023 Chloride [Moles/Vol] 107 mmol/L 98-107 [facility] Creatine kinase [Enzymatic a ctivity/volume] in Serum or PlasmaOrdered By: Doe Álvarez on 10-27-2023 CK [Catalytic activity/Vol] 74 U/L 30-223 [facility] Creatinine [Mass/volume] in Serum or PlasmaOrdered By: Doe Álvarez on 10-27-2023 Creatinine [Mass/Vol] 1.06 mg/dL 0.60-1.20 [facility] Eosinophils Auto (Bld) [#/Vo l]Ordered By: Doe Álvarez on 10-27-2023 Eosinophils (Bld) [#/Vol] 0.1 10*3/uL 0.0-0.45 [facility] Eosinophils/100 WBC Auto (Bl d)Ordered By: Doe Álvarez on 10-27-2023 Eosinophils/100 WBC (Bld) 0.7 % . [facility] Erythrocyte distribution wid th Auto (RBC) [Ratio]Ordered By: Doe Álvarez 10-27-2023 Erythrocyte distribution width (RBC) [Ratio] 14.0 % 11.9-15.3 [facility] Globulin Calc (S) [Mass/Vol] Ordered By: Doe Álvarez on 10-27-2023 Globulin (S) [Mass/Vol] 2.7 g/dL [facility] Glucose [Mass/volume] in Ser um or PlasmaOrdered By: Doe Álvarez on 10-27-2023 Glucose [Mass/Vol] 166 mg/dL High 70-100 [facility] Comment on above: ADA recommended refe rence rangeRandom Glucose Reference Range is dependent on time and content of last meal. Glucose of more than 200 mg/dL in a nonstressed, ambulatory subject supports the diagnosis of Diabetes Mellitus. Hematocrit Auto (Bld) [Volum e fraction]Ordered By: Deo Álvarez on 10-27-2023 Hematocrit (Bld) [Volume fraction] 42.6 % 34.0-46.4 [facility] Hemoglobin [Mass/volume] in BloodOrdered By: Doe Álvarez on 10-27-2023 Hemoglobin (Bld) [Mass/Vol] 14.5 g/dL 11.8-15.4 [facility] INR in Platelet poor plasma by Coagulation assayOrdered By: Doe Álvarez on 10-27-2023 INR Coag (PPP) [Relative time] 0.9 {INR} [facility] Comment on above: INR Therapeutic [...] RBC Auto (Bld) [#/Vol] 8.6 10*3/uL 3.8-11.6 [facility] Lymphocytes Auto (Bld) [#/Vo l]Ordered By: Doe Álvarez on 10-27-2023 Lymphocytes (Bld) [#/Vol] 2.2 10*3/uL 1.00-4.8 [facility] Lymphocytes/100 WBC Auto (Bl d)Ordered By: Doe Álvarez on 10-27-2023 Lymphocytes/100 WBC (Bld) 25.7 % . [facility] MCH Auto (RBC) [Entitic mass ]Ordered By: Doe Álvarez on 10-27-2023 MCH (RBC) [Entitic mass] 32.6 pg 24.7-34.3 [facility] MCHC Auto (RBC) [Mass/Vol]Or dered By: Doe Álvarez on 10-27-2023 MCHC (RBC) [Mass/Vol] 34.1 g/dL 32.0-35.0 [facility] MCV Auto (RBC) [Entitic vol] Ordered By: oDe Álvarez on 10-27-2023 MCV (RBC) [Entitic vol] 95.7 fL 80-100 [facility] Monocyte distribution width [Entitic volume] in Blood by AutomatedOrdered By: Doe Álvarez on 10-27-2023 Monocyte distribution width Auto (Bld) [Entitic vol] 20.20 % High 0.00-20.00 [facility] Comment on above: For adults in ED, MD W > 20.0 may be associated with a higher risk of sepsis during the first 12 hrs of hospital admission Monocytes Auto (Bld) [#/Vol] Ordered By: Doe Álvarez on 10-27-2023 Monocytes (Bld) [#/Vol] 0.7 10*3/uL 0.0-0.8 [facility] Monocytes/100 WBC Auto (Bld) Ordered By: Doe Álvarez on 10-27-2023 Monocytes/100 WBC (Bld) 8.7 % . [facility] Natriuretic peptide B [Mass/ Vol]Ordered By: Doe Álvarez on 10-27-2023 Natriuretic peptide B (Bld) [Mass/Vol] 124.0 pg/mL High 5-100 [facility] Neutrophils Auto (Bld) [#/Vo l]Ordered By: Doe Álvarez on 10-27-2023 Neutrophils (Bld) [#/Vol] 5.5 10*3/uL 1.8-7.7 [facility] Neutrophils/100 WBC Auto (Bl d)Ordered By: Doe Álvarez on 10-27-2023 Neutrophils/100 WBC (Bld) 63.6 % . [facility] No Panel InformationOrdered By: Doe Álvarez on 10-27-2023 Estimated GFR (CKD-EPI) 52.124 mL/Min [facility] Creatinine Clearance (Chem 35.04 [facility] Nucleated erythrocytes [Pres ence] in Blood by Automated countOrdered By: Doe Álvarez on 10-27-2023 Nucleated RBC Auto Ql (Bld) 0.1 /100{WBC} 0-0.5 [facility] Platelet mean volume Auto (B ld) [Entitic vol]Ordered By: Doe Álvarez on 10-27-2023 Platelet mean volume (Bld) [Entitic vol] 7.7 fL 6.3-10.7 [facility] Platelets Auto (Bld) [#/Vol] Ordered By: Doe Álvarez on 10-27-2023 Platelets (Bld) [#/Vol] 294 10*3/uL 150-450 [facility] Potassium [Moles/volume] in Serum or PlasmaOrdered By: Doe Álvarez on 10-27-2023 Potassium [Moles/Vol] 3.7 mmol/L 3.5-5.1 [facility] Protein [Mass/volume] in Ser um or PlasmaOrdered By: Doe Álvarez on 10-27-2023 Protein [Mass/Vol] 7.1 g/dL 6.4-8.9 [facility] Prothrombin time (PT)Ordered By: Doe Ávlarez on 10-27-2023 PT Coag (PPP) [Time] 10.7 s 9.0-12.9 [facility] Comment on above: A hematocrit value g reater than 55% may lead to inaccurate results in coagulation testing. Patients having hematocrit values >55% require a special collection tube for coagulation studies. Please contact the laboratory at [phone] for redraw instructions. RBC Auto (Bld) [#/Vol]Ordere d By: Doe Álvarez on 10-27-2023 RBC (Bld) [#/Vol] 4.45 10*6/uL 3.60-5.00 [facility] Serum or plasma albumin/glob ulin mass ratioOrdered By: Doe Álvarez on 10-27-2023 Albumin/Globulin [Mass ratio] 1.6 {ratio} [facility] Serum or plasma anion gap de terminationOrdered By: Doe Álvarez on 10-27-2023 Anion gap [Moles/Vol] 13.7 mmol/L 6.0-15.0 [facility] Sodium [Moles/volume] in Ser um or PlasmaOrdered By: Doe Álvarez on 10-27-2023 Sodium [Moles/Vol] 138 mmol/L 136-145 [facility] Troponin I.cardiac [Mass/vol ume] in Serum or Plasma by Detection limit <= 0.01 ng/Ordered By: Doe Álvarez on 10-27-2023 Troponin I.cardiac DL <= 0.01 ng/mL [Mass/Vol] 10.2 pg/mL 0.0-15.0 [facility] Urea nitrogen [Mass/volume] in Serum or PlasmaOrdered By: Doe Álvarez on 10-27-2023 Urea nitrogen [Mass/Vol] 17 mg/dL 7-25 [facility] WBC Auto (Bld) [#/Vol]Ordere d By: Doe Álvarez on 10-27-2023 WBC (Bld) [#/Vol] 8.6 10*3/uL 3.8-11.6 [facility] Glucose Glucometer (BldC) [M ass/Vol]Ordered By: Branden Du on 05-06-2023 Glucose [Mass/Vol] 93 mg/dL [facility] Comment on above: Random Glucose Refer ence Range is dependent on time and content of last meal. Glucose of more than 200 mg/dL in a nonstressed, ambulatory subject supports the diagnosis of Diabetes Mellitus. Urinalysis - DIPSTICKon 06-0 Appearance (U) clear [employer] Other Bilirubin Ql (U) Negative [employer] Other Color (U) light yellow [employer] Other Glucose Ql (U) Negative [employer] Other Hemoglobin Ql (U) Negative [employer] Other Ketones Ql (U) Negative [employer] Other Leukocyte esterase Test strip Ql (U) Negative [employer] Other Nitrite Ql (U) Negative [employer] Other pH (U) 5.0 [pH] [employer] Other Protein Ql (U) Negative [employer] Other Specific gravity (U) [Rel density] 1.005 [employer] Other Urobilinogen (U) [Mass/Vol] 0.5 mg/dL [facility] [employer] Other Urinalysis - DIPSTICK [facility] [employer] Other CBC AUTO DIFFon 05-21-2022 BASO # 0.0 103/ul Normal 0.0-0.1 [facility] Comment on above: Performed By: #### C BC #### [facility] [address] [place] [address] Dr. Arlyn Chan Basophils/100 WBC (Bld) 0.6 % Normal 0.2-2.0 [facility] Comment on above: Performed By: #### C BC #### [facility] [address] [place] [address] Dr. Arlyn Chan EO # 0.1 103/ul Normal 0.0-0.7 [facility] Comment on above: Performed By: #### C BC #### [facility] [address] [place] [address] Dr. Arlyn Chan Eosinophils/100 WBC (Bld) 1.1 % Normal 0.9-7.0 [facility] Comment on above: Performed By: #### C BC #### [facility] [address] [place] [address] Dr. Arlyn Chan Erythrocyte distribution width (RBC) [Ratio] 13.6 % Normal 11.0-15.0 [facility] Comment on above: Performed By: #### C BC #### [facility] [address] [place] [address] Dr. Arlyn Chan Hematocrit (Bld) [Volume fraction] 44.3 % Normal 36.0-48.0 [facility] Comment on above: Performed By: #### C BC #### [facility] [address] [place] [address] Dr. Arlyn Chan Hemoglobin (Bld) [Mass/Vol] 14.8 g/dL Normal 12.0-16.0 [facility] Comment on above: Performed By: #### C BC #### [facility] [address] [place] [address] Dr. Arlyn Chan IG # 0.00 10e3/ul Normal 0.00-0.03 [facility] Comment on above: Performed By: #### C BC #### [facility] [address] [place] [address] Dr. Arlyn Chan IG % 0.0 % Normal 0.0-0.5 [facility] Comment on above: Performed By: #### C BC #### [facility] [address] [place] [address] Dr. Arlyn Chan LYMPH # 1.7 103/ul Normal 1.2-3.8 [facility] Comment on above: Performed By: #### C BC #### [facility] [address] [place] [address] Dr. Arlyn Chan Lymphocytes/100 WBC (Bld) 31.1 % Normal 20.5-60.0 [facility] Comment on above: Performed By: #### C BC #### [facility] [address] [place] [address] Dr. Arlyn Chan MANUAL DIFF REQ NO Normal [facility] Comment on above: Performed By: #### C BC #### [facility] [address] [place] [address] Dr. Arlyn Chan MCH (RBC) [Entitic mass] 31.9 pg Normal 26.7-34.0 [facility] Comment on above: Performed By: #### C BC #### [facility] [address] [place] [address] Dr. Arlyn Chan MCHC (RBC) [Mass/Vol] 33.4 g/dL Normal 29.9-35.2 [facility] Comment on above: Performed By: #### C BC #### [facility] [address] [place] [address] Dr. Arlyn Chan MCV (RBC) [Entitic vol] 95.5 fL Normal 81.0-99.0 [facility] Comment on above: Performed By: #### C BC #### [facility] [address] [place] [address] Dr. Arlyn Chan MONO # 0.5 103/ul Normal 0.3-0.8 [facility] Comment on above: Performed By: #### C BC #### [facility] [address] [place] [address] Dr. Arlyn Chan Monocytes/100 WBC (Bld) 8.8 % Normal 1.7-12.0 [facility] Comment on above: Performed By: #### C BC #### [facility] [address] [place] [address] Dr. Arlyn Chan NEUT # 3.1 103/ul Normal 1.4-6.5 [facility] Comment on above: Performed By: #### C BC #### [facility] [address] [place] [address] Dr. Arlyn Chan Neutrophils/100 WBC (Bld) 58.4 % Normal 43.0-75.0 [facility] Comment on above: Performed By: #### C BC #### [facility] [address] [place] [address] Dr. Arlyn Chan Platelet mean volume (Bld) [Entitic vol] 10.0 fL Normal 9.5-13.5 [facility] Comment on above: Performed By: #### C BC #### [facility] [address] [place] [address] Dr. Arlyn Chan PLT 242 103/ul Normal 150-450 [facility] Comment on above: Performed By: #### C BC #### [facility] [address] [place] [address] Dr. Arlyn Chan RBC 4.64 106/ul Normal 4.20-5.40 [facility] Comment on above: Performed By: #### C BC #### [facility] [address] [place] [address] Dr. Arlyn Chan WBC 5.4 103/ul Normal 4.0-11.0 [facility] Comment on above: Performed By: #### C BC #### [facility] [address] [place] [address] Dr. Arlyn Chan PROF CHEM 8 (BAS METB)on Anion gap [Moles/Vol] 13.9 mmol/L Normal [facility] Comment on above: Performed By: #### H STROPN, BMP #### [facility] [address] [address] [address] Arlyn Chan Calcium [Mass/Vol] 9.4 mg/dL Normal 8.5-10.1 [facility] Comment on above: Performed By: #### H STROPN, BMP #### [facility] [address] [address] [address] Arlyn Chan Chloride [Moles/Vol] 105 mmol/L Normal 98-107 [facility] Comment on above: Performed By: #### H STROPN, BMP #### [facility] [address] [address] [address] Arlyn Chan CO2 [Moles/Vol] 24.3 mmol/L Normal 21.0-32.[address] [facility] Comment on above: Performed By: #### H STROPN, BMP #### [facility] [address] [address] [address] Arlyn Chan Creatinine [Mass/Vol] 0.76 mg/dL Normal 0.55-1.02 [facility] Comment on above: Performed By: #### H STROPN, BMP #### [facility] [address] [address] [address] Arlyn Chan EGFR-AF BURMESE >60 Normal >=[address] [facility] [facility] Comment on above: Performed By: #### H STROPN, BMP #### [facility] [address] [address] [address] Arlyn Chan EGFR-NON AF BURMESE >60 Normal >=60 [facility] Comment on above: Performed By: #### H STROPN, BMP #### [facility] [address] [address] [address] Arlyn Chan Glucose [Mass/Vol] 96 mg/dL Normal 74-106 [facility] Comment on above: Performed By: #### H STROPN, BMP #### [facility] [address] [address] [address] Arlyn Chan Potassium [Moles/Vol] 4.2 mmol/L Normal 3.5-5.1 [facility] Comment on above: Performed By: #### H STROPN, BMP #### [facility] [address] [address] [address] Arlyn Chan Sodium [Moles/Vol] 139 mmol/L Normal 136-145 [facility] Comment on above: Performed By: #### H STROPN, BMP #### [facility] [address] [address] [address] Arlyn Chan Urea nitrogen [Mass/Vol] 21.0 mg/dL Critically high 7.0-18.0 [facility] Comment on above: Performed By: #### H STROPN, BMP #### [facility] [address] [address] [address] Arlyn Chan Urea nitrogen/Creatinine [Mass ratio] 27.6 mg/mg Normal [facility] Comment on above: Performed By: #### H STROPN, BMP #### [facility] [address] [address] [address] Arlyn Chan Progress Noteson 05-21-2022 Process Chemist Authentication Interface Message Text EMERGENCY TRIAGE, TREAT AND TRANSPORT (ET3) DOCUMENTATION OF TELEHEALTH VISIT Date / Time: 05/21/2022944 Name: Genny Barboza : 1940 SSN: (Not on file) EMS Agency: [facility] [x] Verbal consent obtained [] [...] the typically is not available at a [place] primary care physician's office. Patient declined using ambulance go to the ER, and her daughter who was present on scene will drive her the 4 minutes will take to get to the [place] [facility]. I advised her to call 911 [...] Completed by: Sudheer Haro MD Normal [facility] TROPONIN, HIGH SENSITIVITYon 05-21-2022 HSTROP 5.9 pg/mL Normal 4.0-51.3 [facility] Comment on above: Result Comment: CUT- OFF POINTS HAVE BEEN ESTABLISHED BASED ON THE FOURTH UNIVERSAL DEFINITIONS OF MYOCARDIAL INFARCTION. THE UPPER REFERENCE LIMIT (URL) OF TROPONIN, DEFINED THE 99TH PERCENTILE OF cTnI DISTRIBUTION IN A REFERENCE POPULATION, HAS BEEN CONFIRMED THE DECISION THRESHOLD FOR SD DIAGNOSIS. Performed By: #### H YURI, BMP #### [facility] [address] [place] [address] Dr. Arlyn Chan MG MAMM SCREEN 3D VINNY CADon 02-08-2022 MG MAMM SCREEN 3D VINNY CAD Patient: GENNY BARBOZA Exam Date: 02/08/2022 : 1940 Gender:F Ordering : DR BRANDEN DU D.O. Admission #: [id number] Family : Order #: [id number] CLICK HERE TO VIEW EXAM RADIOLOGY REPORT [...] bowel resection Family Cancers None LOCATION: [facility] BREAST COMPOSITION: Scattered areas fibroglandular density. [...] MD on 02/08/2022 at 14:06 Normal [facility] CT CHEST WO CONon 08-11-2021 CT [...] by: JOAQUIN SOTO Date: 2021-08-11 17:29 Normal [facility] Vital Signs Date Time Vital Sign Value Performing Clinician Facility 12-29-2024 11:27-0400 Body weight 65 kg Branden Ball DO Work Phone: [facility] 12-03-2024 11:45-0400 Body height 154.94 cm Branden Ball DO Work Phone: [phone] [place] [address] 12-03-2024 11:45-0400 Body mass index (BMI) [Ratio] 26.4 kg/m2 Branden Ball DO Work Phone: [facility] 12-03-2024 11:45-0400 Body weight 63.55 kg Branden Ball DO Work Phone: [facility] 12-03-2024 11:45-0400 Diastolic blood pressure 78 mm[Hg] Branden Ball DO Work Phone: [facility] 12-03-2024 11:45-0400 Heart rate 61 /min Branden Ball DO Work Phone: [facility] 12-03-2024 11:45-0400 Respiratory rate 12 /min Branden Ball DO Work Phone: [facility] 12-03-2024 11:45-0400 Systolic blood pressure 129 mm[Hg] Branden Ball DO Work Phone: [facility] 12-01-2024 13:27-0400 Body height 154.94 cm Branden Ball DO Work Phone: [facility] 12-01-2024 13:27-0400 Body mass index (BMI) [Ratio] 26 kg/m2 Branden Ball DO Work Phone: [facility] 12-01-2024 13:27-0400 Body weight 62.59 kg Branden Ball DO Work Phone: [facility] 12-01-2024 13:27-0400 Diastolic blood pressure 72 mm[Hg] Branden Ball DO Work Phone: [facility] 12-01-2024 13:27-0400 Heart rate 64 /min Branden Ball DO Work Phone: [facility] 12-01-2024 13:27-0400 Systolic blood pressure 111 mm[Hg] Branden Ball DO Work Phone: [facility] 11-23-2024 12:00-0400 Diastolic blood pressure 78 mm[Hg] Branden Ball DO Work Phone: [facility] 11-23-2024 12:00-0400 Heart rate 71 /min Branden Ball DO Work Phone: [facility] 11-23-2024 12:00-0400 Respiratory rate 18 /min Branden Ball DO Work Phone: [facility] 11-23-2024 12:00-0400 SaO2% (BldA) [Mass fraction] 100 % Branden Ball DO Work Phone: [facility] 11-23-2024 12:00-0400 Systolic blood pressure 126 mm[Hg] Branden Ball DO Work Phone: [facility] 11-23-2024 09:00-0400 Body temperature 98 [degF] Branden Ball DO Work Phone: [facility] 11-23-2024 04:26-0400 Body weight 63.8 kg Branden Ball DO Work Phone: [facility] 11-22-2024 23:10-0400 Body height 154.94 cm Branden Ball DO Work Phone: [facility] 11-22-2024 23:10-0400 Body temperature 98 [degF] Branden Ball DO Work Phone: [facility] 11-22-2024 23:10-0400 Body weight 64.4 kg Branden Ball DO Work Phone: [facility] 11-22-2024 23:10-0400 Diastolic blood pressure 75 mm[Hg] Branden Ball DO Work Phone: [facility] 11-22-2024 23:10-0400 Heart rate 64 /min Branden Ball DO Work Phone: [facility] 11-22-2024 23:10-0400 Respiratory rate 18 /min Branden Ball DO Work Phone: [facility] 11-22-2024 23:10-0400 SaO2% (BldA) [Mass fraction] 98 % Branden Ball DO Work Phone: [facility] 11-22-2024 23:10-0400 Systolic blood pressure 138 mm[Hg] Branden Ball DO Work Phone: [facility] 11-19-2024 10:05-0400 Body height 154.94 cm Branden Ball DO Work Phone: [facility] 11-19-2024 10:05-0400 Body mass index (BMI) [Ratio] 26.7 kg/m2 Branden Ball DO Work Phone: [facility] 11-19-2024 10:05-0400 Body weight 64.2 kg Branden Ball DO Work Phone: [facility] 11-16-2024 15:15-0400 Body height 154.94 cm Branden Ball DO Work Phone: [facility] 11-16-2024 15:15-0400 Body mass index (BMI) [Ratio] 27 kg/m2 Branden Ball DO Work Phone: [facility] 11-16-2024 15:15-0400 Body weight 64.92 kg Branden Ball DO Work Phone: [facility] 11-16-2024 15:15-0400 Diastolic blood pressure 81 mm[Hg] Branden Ball DO Work Phone: [facility] 11-16-2024 15:15-0400 Heart rate 78 /min Branden Ball DO Work Phone: [facility] 11-16-2024 15:15-0400 Respiratory rate 12 /min Branden Ball DO Work Phone: [facility] 11-16-2024 15:15-0400 Systolic blood pressure 134 mm[Hg] Branden Ball DO Work Phone: [facility] 11-04-2024 14:04-0400 Body height 154.94 cm Branden Ball DO Work Phone: [facility] 11-04-2024 14:04-0400 Body mass index (BMI) [Ratio] 26.9 kg/m2 Branden Ball DO Work Phone: [facility] 11-04-2024 14:04-0400 Body weight 64.58 kg Branden Ball DO Work Phone: [facility] 11-04-2024 14:04-0400 Diastolic blood pressure 71 mm[Hg] Branden Ball DO Work Phone: [facility] 11-04-2024 14:04-0400 Heart rate 71 /min Branden Ball DO Work Phone: [facility] 11-04-2024 14:04-0400 Respiratory rate 12 /min Branden Ball DO Work Phone: [facility] 11-04-2024 14:04-0400 Systolic blood pressure 112 mm[Hg] Branden Ball DO Work Phone: [facility] 11-03-2024 14:04-0400 Body height 154.9 cm Vanessa Dave BALANCE CLERK-RESEARCH ASSOCIATE [employer] Work Phone: [facility] 11-03-2024 14:04-0400 Body mass index (BMI) [Ratio] 27.21 kg/m2 Vanessa Dave BALANCE CLERK-RESEARCH ASSOCIATE [employer] Work Phone: [facility] 11-03-2024 14:04-0400 Body weight 65.32 kg Vanessa Dave BALANCE CLERK-RESEARCH ASSOCIATE [employer] Work Phone: [facility] 11-03-2024 14:04-0400 Diastolic blood pressure 60 mm[Hg] Vanessa Dave BALANCE CLERK-RESEARCH ASSOCIATE [employer] Work Phone: [facility] 11-03-2024 14:04-0400 Heart rate 60 /min Vanessa Dave BALANCE CLERK-RESEARCH ASSOCIATE [employer] Work Phone: [facility] 11-03-2024 14:04-0400 Systolic blood pressure 102 mm[Hg] Vanessa Dave BALANCE CLERK-RESEARCH ASSOCIATE [employer] Work Phone: [facility] 09-29-2024 14:31-0400 Body height 154.9 cm Vanessa Dave BALANCE CLERK-RESEARCH ASSOCIATE [employer] Work Phone: [facility] 09-29-2024 14:31-0400 Body mass index (BMI) [Ratio] 26.72 kg/m2 Vanessa Dave BALANCE CLERK-RESEARCH ASSOCIATE [employer] Work Phone: [facility] 09-29-2024 14:31-0400 Body weight 64.14 kg Vanessa Dave BALANCE CLERK-RESEARCH ASSOCIATE [employer] Work Phone: [facility] 09-29-2024 14:31-0400 Diastolic blood pressure 80 mm[Hg] Vanessa Dave BALANCE CLERK-RESEARCH ASSOCIATE [employer] Work Phone: [facility] 09-29-2024 14:31-0400 Heart rate 64 /min Vanessa Dave BALANCE CLERK-RESEARCH ASSOCIATE [employer] Work Phone: [facility] 09-29-2024 14:31-0400 Systolic blood pressure 140 mm[Hg] Vanessa Dave BALANCE CLERK-RESEARCH ASSOCIATE [employer] Work Phone: [facility] 09-29-2024 13:18-0400 Diastolic blood pressure 88 mm[Hg] Branden Ball DO Work Phone: [facility] 09-29-2024 13:18-0400 Systolic blood pressure 152 mm[Hg] Branden Ball DO Work Phone: [facility] 09-29-2024 13:15-0400 Body height 154.94 cm Branden Ball DO Work Phone: [facility] 09-29-2024 13:15-0400 Body mass index (BMI) [Ratio] 26.4 kg/m2 Branden Ball DO Work Phone: [facility] 09-29-2024 13:15-0400 Body weight 63.5 kg Branden Ball DO Work Phone: [facility] 09-29-2024 13:15-0400 Heart rate 60 /min Branden Ball DO Work Phone: [facility] 09-29-2024 13:15-0400 Respiratory rate 20 /min Branden Ball DO Work Phone: [facility] 09-29-2024 13:15-0400 SaO2% (BldA) [Mass fraction] 98 % Branden Ball DO Work Phone: [facility] 08-19-2024 13:31-0400 Body height 154.94 cm [facility] 08-19-2024 13:31-0400 Body mass index (BMI) [Ratio] 26.6 kg/m2 [facility] 08-19-2024 13:31-0400 Body weight 64.12 kg [facility] 08-19-2024 13:31-0400 Diastolic blood pressure 80 mm[Hg] [facility] 08-19-2024 13:31-0400 Heart rate 84 /min [facility] 08-19-2024 13:31-0400 Respiratory rate 12 /min [facility] 08-19-2024 13:31-0400 SaO2% (BldA) [Mass fraction] 99 % [facility] 08-19-2024 13:31-0400 Systolic blood pressure 127 mm[Hg] [facility] 08-05-2024 13:50-0400 Body height 154.9 cm Vanessa Dave APRN-RESEARCH ASSOCIATE [employer] Work Phone: [facility] 08-05-2024 13:50-0400 Body mass index (BMI) [Ratio] 27.4 kg/m2 Vanessa Dave BALANCE CLERK-RESEARCH ASSOCIATE [employer] Work Phone: [facility] 08-05-2024 13:50-0400 Body weight 65.77 kg Vanessa Dave BALANCE CLERK-RESEARCH ASSOCIATE [employer] Work Phone: [facility] 08-05-2024 13:50-0400 Diastolic blood pressure 70 mm[Hg] Vanessa Dave BALANCE CLERK-RESEARCH ASSOCIATE [employer] Work Phone: [facility] 08-05-2024 13:50-0400 Heart rate 72 /min Vanessa Dave BALANCE CLERK-RESEARCH ASSOCIATE [employer] Work Phone: [facility] 08-05-2024 13:50-0400 Systolic blood pressure 122 mm[Hg] Vanessa Dave BALANCE CLERK-RESEARCH ASSOCIATE [employer] Work Phone: [facility] 07-20-2024 11:18-0400 Body height 154.94 cm [facility] 07-20-2024 11:18-0400 Body mass index (BMI) [Ratio] 26.4 kg/m2 [facility] 07-20-2024 11:18-0400 Body weight 63.5 kg [facility] 07-20-2024 11:18-0400 Diastolic blood pressure 86 mm[Hg] [facility] 07-20-2024 11:18-0400 Heart rate 63 /min [facility] 07-20-2024 11:18-0400 Systolic blood pressure 138 mm[Hg] [facility] 05-27-2024 11:23-0500 Body height 154.9 cm Inderjit Frausto DO Work Phone: [facility] 05-27-2024 11:23-0500 Body mass index (BMI) [Ratio] 27.02 kg/m2 Inderjit Frausto DO Work Phone: [facility] 05-27-2024 11:23-0500 Body weight 64.86 kg Inderjit Frausto DO Work Phone: [facility] 05-27-2024 11:23-0500 Diastolic blood pressure 72 mm[Hg] Inderjit Frausto DO Work Phone: [facility] 05-27-2024 11:23-0500 Heart rate 60 /min Inderjit Frausto DO Work Phone: [facility] 05-27-2024 11:23-0500 Systolic blood pressure 110 mm[Hg] Inderjit Frausto DO Work Phone: [facility] 05-12-2024 13:38-0500 Body height 154.94 cm [facility] 05-12-2024 13:38-0500 Body mass index (BMI) [Ratio] 26.4 kg/m2 [facility] 05-12-2024 13:38-0500 Body weight 63.5 kg [facility] 05-12-2024 13:38-0500 Diastolic blood pressure 85 mm[Hg] [facility] 05-12-2024 13:38-0500 Heart rate 68 /min [facility] 05-12-2024 13:38-0500 Respiratory rate 12 /min [facility] 05-12-2024 13:38-0500 Systolic blood pressure 128 mm[Hg] [facility] 03-12-2024 10:45-0500 Body height 154.94 cm [facility] 03-12-2024 10:45-0500 Body mass index (BMI) [Ratio] 27 kg/m2 [facility] 03-12-2024 10:45-0500 Body weight 64.86 kg [facility] 03-12-2024 10:45-0500 Diastolic blood pressure 66 mm[Hg] [facility] 03-12-2024 10:45-0500 Heart rate 60 /min [facility] 03-12-2024 10:45-0500 Respiratory rate 20 /min [facility] 03-12-2024 10:45-0500 SaO2% (BldA) [Mass fraction] 98 % [facility] 03-12-2024 10:45-0500 Systolic blood pressure 156 mm[Hg] [facility] 03-11-2024 13:04-0500 Body height 154.94 cm [facility] 03-11-2024 13:04-0500 Body mass index (BMI) [Ratio] 27.8 kg/m2 [facility] 03-11-2024 13:04-0500 Body weight 66.9 kg [facility] 03-09-2024 16:23-0500 Body height 154.94 cm [facility] 03-09-2024 16:23-0500 Body mass index (BMI) [Ratio] 27.8 kg/m2 [facility] 03-09-2024 16:23-0500 Body weight 66.79 kg [facility] 03-09-2024 16:23-0500 Diastolic blood pressure 81 mm[Hg] [facility] 03-09-2024 16:23-0500 Heart rate 70 /min [facility] 03-09-2024 16:23-0500 Respiratory rate 12 /min [facility] 03-09-2024 16:23-0500 Systolic blood pressure 157 mm[Hg] [facility] 12-20-2023 10:40-0400 Body height 154.9 cm Inderjit Frausto DO Work Phone: [facility] 12-20-2023 10:40-0400 Body mass index (BMI) [Ratio] 27.02 kg/m2 Inderjit Frausto DO Work Phone: [facility] 12-20-2023 10:40-0400 Body weight 64.86 kg Inderjit Frausto DO Work Phone: [facility] 12-20-2023 10:40-0400 Diastolic blood pressure 86 mm[Hg] Inderjit Frausto DO Work Phone: [facility] 12-20-2023 10:40-0400 Heart rate 57 /min Inderjit Frausto DO Work Phone: [facility] 12-20-2023 10:40-0400 Systolic blood pressure 120 mm[Hg] Inderjit Frausto DO Work Phone: [facility] 12-12-2023 13:21-0400 Body height 154.94 cm FLAKITA Álvarez Work Phone: [facility] 12-12-2023 13:21-0400 Body mass index (BMI) [Ratio] 26.6 kg/m2 FLAKITA Álvarez Work Phone: [facility] 12-12-2023 13:21-0400 Body weight 64 kg PA-C Doe Álvarez Work Phone: [facility] 12-04-2023 15:49-0400 Body height 154.94 cm PA-C Doe Álvarez Work Phone: [facility] 12-04-2023 15:49-0400 Body mass index (BMI) [Ratio] 26.9 kg/m2 PA-C Doe Álvarez Work Phone: [facility] 12-04-2023 15:49-0400 Body weight 64.58 kg PA-C Doe Álvarez Work Phone: [facility] 12-04-2023 15:49-0400 Diastolic blood pressure 83 mm[Hg] PA-C Doe Álvarez Work Phone: [facility] 12-04-2023 15:49-0400 Heart rate 71 /min PA-C Doe Álvarez Work Phone: [facility] 12-04-2023 15:49-0400 Respiratory rate 12 /min PA-C Doe Álvarez Work Phone: [facility] 12-04-2023 15:49-0400 Systolic blood pressure 151 mm[Hg] PA-C Ode Álvarez Work Phone: [facility] 11-12-2023 11:55-0400 Body height 154.94 cm PA-C Doe Álvarez Work Phone: [facility] 11-12-2023 11:55-0400 Body mass index (BMI) [Ratio] 27.3 kg/m2 PA-C Doe Álvarez Work Phone: [facility] 11-12-2023 11:55-0400 Body weight 65.48 kg PA-C Doe Álvarez Work Phone: [facility] 11-12-2023 11:55-0400 Diastolic blood pressure 84 mm[Hg] PA-C Doe Álvarez Work Phone: [facility] 11-12-2023 11:55-0400 Heart rate 57 /min IGNACIA-C Doe Álvarez Work Phone: [facility] 11-12-2023 11:55-0400 Respiratory rate 12 /min PA-C Doe Álvarez Work Phone: [facility] 11-12-2023 11:55-0400 Systolic blood pressure 144 mm[Hg] PA-C Doe Álvarez Work Phone: [facility] 11-07-2023 10:05-0400 Body height 154.9 cm Inderjit Frausto DO Work Phone: [facility] 11-07-2023 10:05-0400 Body mass index (BMI) [Ratio] 26.83 kg/m2 Inderjit Frausto DO Work Phone: [facility] 11-07-2023 10:05-0400 Body weight 64.41 kg Inderjit Frausto DO Work Phone: [facility] 11-07-2023 10:05-0400 Diastolic blood pressure 68 mm[Hg] Inderjit Frausto DO Work Phone: [facility] 11-07-2023 10:05-0400 Heart rate 82 /min Inderjit Frausto DO Work Phone: [facility] 11-07-2023 10:05-0400 Systolic blood pressure 118 mm[Hg] Inderjit Frausto DO Work Phone: [facility] 11-05-2023 11:37-0400 Diastolic blood pressure 61 mm[Hg] IGNACIA-C Doe Álvarez Work Phone: [facility] 11-05-2023 11:37-0400 Heart rate 63 /min PA-C Doe Álvarez Work Phone: [facility] 11-05-2023 11:37-0400 Respiratory rate 20 /min PA-C Doe Álvarez Work Phone: [facility] 11-05-2023 11:37-0400 SaO2% (BldA) [Mass fraction] 98 % PA-C Doe Álvarez Work Phone: [facility] 11-05-2023 11:37-0400 Systolic blood pressure 143 mm[Hg] PA-C Doechanel Álvarez Work Phone: [facility] 11-05-2023 09:10-0400 Body temperature 97.8 [degF] PA-C Doe Álvarez Work Phone: [facility] 11-05-2023 07:18-0400 Body height 154.94 cm PA-C Doe Álvarez Work Phone: [facility] 11-05-2023 07:18-0400 Body weight 65.77 kg PA-C Doe Álvarez Work Phone: [facility] 10-29-2023 16:00-0400 Body temperature 98.2 [degF] PA-C Doe Álvarez Work Phone: [facility] 10-29-2023 16:00-0400 Diastolic blood pressure 88 mm[Hg] PA-C Doe Álvarez Work Phone: [facility] 10-29-2023 16:00-0400 Heart rate 58 /min PA-C Doe Álvarez Work Phone: [facility] 10-29-2023 16:00-0400 Respiratory rate 16 /min PA-C Doechanel Álvarez Work Phone: [facility] 10-29-2023 16:00-0400 SaO2% (BldA) [Mass fraction] 96 % PA-C Doechanel Álvarez Work Phone: [facility] 10-29-2023 16:00-0400 Systolic blood pressure 140 mm[Hg] PA-C Doechanel Álvarez Work Phone: [facility] 10-29-2023 06:00-0400 Body weight 65.6 kg PA-C Doe Álvarez Work Phone: [facility] 10-29-2023 06:00-0400 Inhaled oxygen flow rate 2 L/min PA-C Doe Álvarez Work Phone: [facility] 10-27-2023 21:42-0400 Body height 154.94 cm PA-C Doe Álvarez Work Phone: [facility] 10-27-2023 19:05-0400 Diastolic blood pressure 64 mm[Hg] PA-C Doe Álvarez Work Phone: [facility] 10-27-2023 19:05-0400 Heart rate 75 /min PA-C Doe Álvarez Work Phone: [facility] 10-27-2023 19:05-0400 Respiratory rate 28 /min PA-C Doe Álvarez Work Phone: [facility] 10-27-2023 19:05-0400 SaO2% (BldA) [Mass fraction] 96 % PA-C Doe Álvarez Work Phone: [facility] 10-27-2023 19:05-0400 Systolic blood pressure 120 mm[Hg] PA-C Doe Álvarez Work Phone: [facility] 10-27-2023 17:31-0400 Body temperature 97.9 [degF] PA-C Doe Álvarez Work Phone: [facility] 10-27-2023 17:11-0400 Body height 154.94 cm PA-C Doe Álvarez Work Phone: [facility] 10-27-2023 17:11-0400 Body weight 66.3 kg PA-C Doe Álvarez Work Phone: [facility] 06-20-2023 14:32-0400 Body height 165.1 cm DO Branden Ball Work Phone: [facility] 06-20-2023 14:32-0400 Body mass index (BMI) [Ratio] 24.4 kg/m2 DO Branden Ball Work Phone: [facility] 06-20-2023 14:32-0400 Body weight 66.67 kg DO Branden Ball Work Phone: [facility] 06-20-2023 14:32-0400 Diastolic blood pressure 77 mm[Hg] DO Branden Ball Work Phone: [facility] 06-20-2023 14:32-0400 Heart rate 83 /min DO Branden Ball Work Phone: [facility] 06-20-2023 14:32-0400 Systolic blood pressure 150 mm[Hg] DO Branden Ball Work Phone: [facility] 06-07-2023 09:28-0400 Body height 165.1 cm DO Branden Ball Work Phone: [facility] 06-07-2023 09:28-0400 Body mass index (BMI) [Ratio] 24.6 kg/m2 DO Branden Ball Work Phone: [facility] 06-07-2023 09:28-0400 Body weight 67.18 kg DO Branden Ball Work Phone: [facility] 06-07-2023 09:28-0400 Diastolic blood pressure 87 mm[Hg] DO Branden Ball Work Phone: [facility] 06-07-2023 09:28-0400 Heart rate 77 /min DO Branden Ball Work Phone: [facility] 06-07-2023 09:28-0400 Respiratory rate 12 /min DO Branden Ball Work Phone: [facility] 06-07-2023 09:28-0400 Systolic blood pressure 146 mm[Hg] DO Branden Ball Work Phone: [facility] 05-21-2023 10:24-0500 Body height 165.1 cm DO Branden Ball Work Phone: [facility] 05-21-2023 10:24-0500 Body mass index (BMI) [Ratio] 24.3 kg/m2 DO Branden Ball Work Phone: [facility] 05-21-2023 10:24-0500 Body weight 66.22 kg DO Branden Ball Work Phone: [facility] 05-21-2023 10:24-0500 Diastolic blood pressure 81 mm[Hg] DO Branden Ball Work Phone: [facility] 05-21-2023 10:24-0500 Heart rate 71 /min DO Branden Ball Work Phone: [facility] 05-21-2023 10:24-0500 Respiratory rate 16 /min DO Branden Ball Work Phone: [facility] 05-21-2023 10:24-0500 Systolic blood pressure 131 mm[Hg] DO Branden Ball Work Phone: [facility] 04-12-2023 11:30-0500 Body height 165.1 cm Branden Ball Other [facility] 04-12-2023 11:30-0500 Body mass index (BMI) [Ratio] 24.59 kg/m2 Branden Ball Other [facility] Other 04-12-2023 11:30-0500 Body weight 67.04 kg Branden Ball Other [facility] 04-12-2023 11:30-0500 Diastolic blood pressure 75 mm[Hg] Branden Ball Other [facility] 04-12-2023 11:30-0500 Respiratory rate 12 /min Branden Ball Other [facility] Other 04-12-2023 11:30-0500 Systolic blood pressure 122 mm[Hg] Branden Ball Other [facility] 03-26-2023 11:30-0500 Body height 165.1 cm Branden Ball Other [facility] 03-26-2023 11:30-0500 Body mass index (BMI) [Ratio] 24.89 kg/m2 Branden Ball Other [facility] Other 03-26-2023 11:30-0500 Body weight 67.86 kg Branden Ball Other [facility] Other 03-26-2023 11:30-0500 Body weight 67.85 kg DO Branden Ball Work Phone: [facility] 03-26-2023 11:30-0500 Diastolic blood pressure 82 mm[Hg] Branden Ball Other [facility] 03-26-2023 11:30-0500 Respiratory rate 12 /min Branden Ball Other [facility] Other 03-26-2023 11:30-0500 Systolic blood pressure 192 mm[Hg] Branden Ball Other [facility] 02-08-2023 13:30-0500 Body height 165.1 cm Branden Ball Other [facility] 02-08-2023 13:30-0500 Body mass index (BMI) [Ratio] 24.29 kg/m2 Branden Ball Other [facility] Other 02-08-2023 13:30-0500 Body weight 66.23 kg Branden Ball Other [facility] Other 02-08-2023 13:30-0500 Body weight 66.22 kg DO Branden Ball Work Phone: [facility] 02-08-2023 13:30-0500 Diastolic blood pressure 79 mm[Hg] Branden Ball Other [facility] 02-08-2023 13:30-0500 Respiratory rate 12 /min Branden Ball Other [facility] Other 02-08-2023 13:30-0500 Systolic blood pressure 128 mm[Hg] Branden Ball Other [facility] 08-27-2022 11:15-0400 Body height 165.1 cm Branden Ball Other [employer] Other 08-27-2022 11:15-0400 Body mass index (BMI) [Ratio] 24.06 kg/m2 Branden Ball Other [employer] Other 08-27-2022 11:15-0400 Body weight 65.59 kg Branden Ball Other [employer] Other 08-27-2022 11:15-0400 Diastolic blood pressure 83 mm[Hg] Branden Ball Other [employer] Other 08-27-2022 11:15-0400 Respiratory rate 12 /min Branden Ball Other [employer] Other 08-27-2022 11:15-0400 Systolic blood pressure 152 mm[Hg] Branden Ball Other [employer] Other 07-09-2022 15:00-0400 Body height 165.1 cm Branden Ball Other [employer] Other 07-09-2022 15:00-0400 Body mass index (BMI) [Ratio] 23.23 kg/m2 Branden Ball Other [employer] Other 07-09-2022 15:00-0400 Body weight 63.32 kg Branden Ball Other [employer] Other 07-09-2022 15:00-0400 Diastolic blood pressure 72 mm[Hg] Branden Ball Other [employer] Other 07-09-2022 15:00-0400 Respiratory rate 12 /min Branden Ball Other [employer] Other 07-09-2022 15:00-0400 Systolic blood pressure 134 mm[Hg] Branden Ball Other [employer] Other 05-21-2022 15:45-0500 Body height 165.1 cm Branden Ball Other [employer] Other 05-21-2022 15:45-0500 Body mass index (BMI) [Ratio] 24.56 kg/m2 Branden Ball Other [employer] Other 05-21-2022 15:45-0500 Body weight 66.95 kg Branden Ball Other [employer] Other 05-21-2022 15:45-0500 Diastolic blood pressure 82 mm[Hg] Branden Ball Other [employer] Other 05-21-2022 15:45-0500 Respiratory rate 12 /min Branden Ball Other [employer] Other 05-21-2022 15:45-0500 Systolic blood pressure 136 mm[Hg] Branden Ball Other [employer] Other 05-21-2022 09:45-0500 Diastolic blood pressure 92 mm[Hg] [facility] 05-21-2022 09:45-0500 Heart rate 72 /min [facility] 05-21-2022 09:45-0500 Respiratory rate 18 /min [facility] 05-21-2022 09:45-0500 SaO2% (BldA) [Mass fraction] 98 % [facility] 05-21-2022 09:45-0500 Systolic blood pressure 181 mm[Hg] [facility] Encounters Encounter Date Encounter Type Care Provider Facility Start: 12-29-2024 End: 12-29-2024 ambulatory Branden Ball DO Work Phone: [facility] Work Phone: Start: 12-29-2024 End: 12-29-2024 Patient encounter procedure Roxane Granda [facility] Neurosurgery Work Phone: Start: 12-18-2024 Non-patient / Non-visit Shannon thurman MD -[facility] Work Phone: Start: 12-14-2024 End: 12-14-2024 ambulatory Branden Ball DO Work Phone: [facility] Work Phone: Start: 12-14-2024 End: 12-14-2024 Patient encounter procedure Justus Damon DO -[facility] Work Phone: Start: 12-03-2024 End: 12-03-2024 ambulatory Branden Ball DO Work Phone: [facility] Work Phone: Start: 12-03-2024 End: 12-03-2024 Patient encounter procedure Branden Du DO -[facility] Work Phone: Start: 12-01-2024 End: 12-01-2024 ambulatory Branden Ball DO Work Phone: [facility] Work Phone: Start: 12-01-2024 End: 12-01-2024 Patient encounter procedure Shmuel A Michelle [facility] Gastro Work Phone: Start: 11-26-2024 Non-patient / Non-visit Maura Dixon MICA PATCHER -[facility] Work Phone: Start: 11-22-2024 End: 11-23-2024 ambulatory Benjamin Elias Facility:[facility] Start: 11-22-2024 End: 11-23-2024 Evaluation and management of inpatient Benjamin Elias MD -[facility] [place] [facility] Work Phone: Start: 11-22-2024 End: 11-23-2024 observation encounter Branden Ball DO Work Phone: [facility] Work Phone: Start: 11-19-2024 End: 11-19-2024 ambulatory Branden Ball DO Work Phone: [facility] Work Phone: Start: 11-19-2024 End: 11-19-2024 Patient encounter procedure Roxaneantwan Granda [facility] -[facility] Neurosurgery Work Phone: Start: 11-18-2024 End: 11-18-2024 ambulatory Branden Ball DO Work Phone: [facility] Work Phone: Start: 11-18-2024 End: 11-18-2024 Patient encounter procedure Justus Damon DO -[facility] Orthopedics Work Phone: Start: 11-16-2024 End: 11-16-2024 ambulatory Branden Ball DO Work Phone: [facility] Work Phone: Start: 11-16-2024 End: 11-16-2024 Patient encounter procedure Branden Ball DO -[facility] Work Phone: Start: 11-09-2024 Non-patient / Non-visit Maura Dixon MICA PATCHER -[facility] Work Phone: Start: 11-04-2024 End: 11-04-2024 ambulatory Branden Ball DO Work Phone: [facility] Work Phone: Start: 11-04-2024 End: 11-04-2024 Patient encounter procedure Branden Ball DO -[facility] Work Phone: Start: 11-03-2024 End: 11-03-2024 Office outpatient visit 10 minutes Vanessa Dave BALANCE CLERK-[facility] Work Phone: [facility] Comment on above: BMI 27.0-27.9,adult (Primary Dx); Essential hypertension; Localized edema Start: 11-03-2024 End: 11-03-2024 ambulatory [facility] Ambulatory Start: 10-03-2024 End: 10-03-2024 ambulatory Branden Ball DO Work Phone: [facility] Work Phone: Start: 10-03-2024 End: 10-03-2024 Departed Referred Laurie Mills MD -[facility] Start: 10-03-2024 Non-patient / Non-visit Laurie cervantes MD -[facility] Work Phone: Start: 09-29-2024 End: 09-29-2024 Office outpatient visit 15 minutes Vanessa Dave BALANCE CLERK-RESEARCH ASSOCIATE QUALITY CONTROL QC Work Phone: [facility] Comment on above: Essential hypertensi on (Primary Dx); Fatigue, unspecified type; BMI 26.0-26.9,adult Start: 09-29-2024 End: 09-29-2024 ambulatory [facility] Ambulatory Start: 09-29-2024 End: 09-29-2024 ambulatory Branden Ball DO Work Phone: [facility] Work Phone: Start: 09-29-2024 End: 09-29-2024 Patient encounter procedure Sobia Okeefe MD -[facility] Pulmonary Work Phone: Start: 08-19-2024 End: 08-19-2024 ambulatory [facility] Work Phone: Start: 08-19-2024 End: 08-19-2024 Patient encounter procedure [facility] Work Phone: Start: 08-05-2024 Non-patient / Non-visit [facility] Work Phone: Start: 08-05-2024 End: 08-05-2024 Office outpatient visit 25 minutes Vanessa Dave BALANCE CLERK-RESEARCH ASSOCIATE QUALITY CONTROL QC Work Phone: [facility] Comment on above: Hyperlipidemia, unsp ecified hyperlipidemia type (Primary Dx); Coronary artery disease, unspecified vessel or lesion type, unspecified whether angina present, unspecified whether big sandy or transplanted heart; History of ST elevation myocardial infarction (STEMI); Essential hypertension; BMI 27.0-27.9,adult; Fatigue, unspecified type; Shortness of breath Start: 08-05-2024 End: 08-05-2024 ambulatory [facility] Ambulatory Start: 07-20-2024 End: 07-20-2024 ambulatory [facility] Work Phone: Start: 07-20-2024 End: 07-20-2024 Patient encounter procedure [facility] Physician [facility] Gastro Work Phone: Start: 05-27-2024 End: 05-27-2024 Office outpatient visit 15 minutes Inderjit [facility] Work Phone: [facility] Comment on above: Coronary artery dise ase, unspecified vessel or lesion type, unspecified whether angina present, unspecified whether big sandy or transplanted heart; History of ST elevation myocardial infarction (STEMI); History of PTCA; Hyperlipidemia, unspecified hyperlipidemia type; Essential hypertension; BMI 27.0-27.9,adult; Former smoker Start: 05-27-2024 End: 05-27-2024 ambulatory [facility] Ambulatory Start: 05-12-2024 End: 05-12-2024 [facility] Work Phone: Start: 05-12-2024 End: 05-12-2024 Patient encounter procedure [facility] Physician [facility] Work Phone: Start: 04-28-2024 Non-patient / Non-visit [facility] Physician [facility] Work Phone: Start: 03-12-2024 End: 03-12-2024 Patient encounter procedure [facility] Physician [facility] Work Phone: Start: 03-11-2024 End: 03-11-2024 Patient encounter procedure [facility] Physician [facility] Gastro Work Phone: Start: 03-09-2024 End: 03-09-2024 Patient encounter procedure [facility] Physician [facility] Work Phone: Start: 03-07-2024 Patient encounter procedure [facility] Start: 03-06-2024 Non-patient / Non-visit [facility] Physician [facility] Work Phone: Start: 12-20-2023 End: 12-20-2023 Office outpatient visit 25 minutes Inderjit Mitul [facility] Work Phone: [facility] Comment on above: Near syncope; Fatigue, unspecified type; History of PTCA; Essential hypertension; History of ST elevation myocardial infarction (STEMI); Shortness of breath; Coronary artery disease, unspecified vessel or lesion type, unspecified whether angina present, unspecified whether big sandy or transplanted heart; Former smoker; BMI 27.0-27.9,adult Start: 12-20-2023 End: 12-20-2023 ambulatory [facility] Ambulatory Start: 12-12-2023 End: 12-12-2023 ambulatory IGNACIA-Heri Álvarez Work Phone: [facility] Work Phone: Start: 12-12-2023 End: 12-12-2023 Patient encounter procedure PA-Heri Álvarez Work Phone: [facility] Gastroenterology Work Phone: Start: 12-04-2023 End: 12-04-2023 ambulatory PA-Heri Álvarez Work Phone: [facility] Work Phone: Start: 12-04-2023 End: 12-04-2023 Patient encounter procedure FLAKITA Álvarez Work Phone: [facility] Physician [facility] Work Phone: Start: 11-12-2023 End: 11-12-2023 ambulatory PA-Heri Álvarez Work Phone: [facility] Work Phone: Start: 11-12-2023 End: 11-12-2023 Patient encounter procedure PA-C Doe Álvarez Work Phone: [facility] Physician [facility] Work Phone: Start: 11-07-2023 End: 11-07-2023 Transitional care manage srvc 7 day discharge Inderjit Frausto DO Work Phone: [facility] Comment on above: Coronary artery dise ase, unspecified vessel or lesion type, unspecified whether angina present, unspecified whether big sandy or transplanted heart; History of PTCA; History of ST elevation myocardial infarction (STEMI); Shortness of breath; Former smoker; BMI 26.0-26.9,adult; Hyperlipidemia, unspecified hyperlipidemia type Start: 11-05-2023 Non-patient / Non-visit IGNACIA-C Evelyn Álvarez Work Phone: [facility] Physician [facility] Work Phone: Start: 11-05-2023 End: 11-05-2023 Emergency department patient visit PA-Heri Álvarez Work Phone: [facility]-Emergency Room Work Phone: Start: 10-28-2023 Non-patient / Non-visit IGNACIA-Heri Álvarez Work Phone: [facility] Physician [facility] Pulmonary Disease Work Phone: Start: 10-27-2023 End: 10-29-2023 Evaluation and management of inpatient INGACIA-Heri Álvarez Work Phone: [facility] [place] [facility] Work Phone: Start: 06-20-2023 End: 06-20-2023 ambulatory DO Branden Du Work Phone: [facility] Work Phone: Start: 06-20-2023 End: 06-20-2023 Patient encounter procedure DO Branden Du Work Phone: [facility] Physician [facility] Gastroenterology Work Phone: Start: 06-07-2023 End: 06-07-2023 ambulatory DO Branden Ball Work Phone: [facility] Work Phone: Start: 06-07-2023 End: 06-07-2023 Patient encounter procedure DO Branden Ball Work Phone: [facility] Work Phone: Start: 05-21-2023 End: 05-21-2023 Patient encounter procedure DO Branden Ball Work Phone: [facility] Work Phone: Start: 05-06-2023 End: 05-06-2023 ambulatory DO Branden Ball Work Phone: [facility] Work Phone: Start: 05-06-2023 End: 05-06-2023 Patient encounter procedure DO Branden Ball Work Phone: [facility]-Pet Scan Work Phone: Start: 04-24-2023 End: 04-24-2023 ambulatory ELENA HASSAN Not Available Start: 04-23-2023 End: 04-23-2023 ambulatory Branden Ball Other [employer] Other Start: 04-23-2023 Telephone encounter Branden Ball [facility] Start: 04-22-2023 End: 04-22-2023 ambulatory Branden Ball Other [employer] Other Start: 04-22-2023 Telephone encounter Branden Ball [facility] Start: 04-17-2023 End: 04-17-2023 ambulatory Branden Ball Other [employer] Other Start: 04-17-2023 Telephone encounter Branden Ball [facility] Start: 04-12-2023 End: 04-12-2023 ambulatory Branden Ball Other [employer] Other Start: 04-12-2023 Office outpatient vi sit 15 minutes Branden Ball [facility] Start: 04-12-2023 Telephone encounter Branden Philly [facility] Start: 04-12-2023 End: 04-12-2023 Patient encounter procedure DO Branden Ball Work Phone: [facility]ician Group- Start: 04-08-2023 End: 04-08-2023 ambulatory Branden Ball Other [employer] Other Start: 04-08-2023 Telephone encounter Branden Ball [facility] Start: 04-01-2023 End: 04-01-2023 ambulatory Branden Ball Other [employer] Other Start: 04-01-2023 Telephone encounter Branden Ball [facility] Start: 03-27-2023 End: 03-27-2023 ambulatory Branden Ball Other [employer] Other Start: 03-27-2023 Telephone encounter Branden Ball [facility] Start: 03-26-2023 End: 03-26-2023 ambulatory Branden Ball Other [employer] Other Start: 03-26-2023 Office outpatient vi sit 15 minutes Branden Ball [facility] Start: 03-26-2023 End: 03-26-2023 Patient encounter procedure DO Branden Ball Work Phone: [facility]ician [facility] Work Phone: Start: 03-14-2023 End: 03-14-2023 ambulatory Branden Ball Other [employer] Other Start: 03-14-2023 Telephone encounter Branden Ball [facility] Start: 02-19-2023 End: 02-19-2023 ambulatory Branden Ball Other [employer] Other Start: 02-19-2023 Telephone encounter Branden Ball [facility] Start: 02-08-2023 End: 02-08-2023 ambulatory Branden Du Other [employer] Other Start: 02-08-2023 Patient encounter procedure Branden Du [facility] Start: 02-08-2023 End: 02-08-2023 Patient encounter procedure DO Branden Du Work Phone: [facility] Work Phone: Start: 09-20-2022 End: 09-20-2022 ambulatory Branden Du Other [employer] Other Start: 09-20-2022 Telephone encounter Branden Du [facility] Start: 08-27-2022 End: 08-27-2022 ambulatory Branden Du Other [employer] Other Start: 08-27-2022 Office outpatient vi sit 15 minutes Branden Ball [facility] Start: 08-24-2022 End: 08-24-2022 ambulatory Branden Du Other [employer] Other Start: 08-24-2022 Nursing evaluation o f patient and report Branden Du [facility] Start: 07-09-2022 End: 07-09-2022 ambulatory Branden Du Other [employer] Other Start: 07-09-2022 Office outpatient vi sit 15 minutes Branden Ball [facility] Start: 06-12-2022 End: 06-12-2022 ambulatory Branden Philly Other [employer] Other Start: 06-12-2022 Telephone encounter Branden Ball [facility] Start: 06-11-2022 End: 06-11-2022 ambulatory Branden Ball Other [employer] Other Start: 06-11-2022 Telephone encounter Branden Ball [facility] Start: 05-22-2022 End: 05-22-2022 ambulatory Branden Ball Other [employer] Other Start: 05-22-2022 Telephone encounter [facility] Start: 05-21-2022 Office outpatient vi sit 15 minutes Branden Du [facility] Start: 05-21-2022 End: 05-23-[address] BRANDEN DU Facility:[facility] Start: 05-21-2022 End: 05-21-2022 ambulatory [facility] Treat and Transport Start: 05-21-2022 End: 05-21-2022 Emergency department patient visit [facility] Emergency Triage, Treat and Transport Comment on above: Arrived Start: 05-04-2022 End: 05-04-2022 ambulatory Branden Du Other [employer] Other Start: 05-04-2022 Telephone encounter Branden Du [facility] Start: 05-03-2022 End: 05-03-2022 ambulatory Branden Du Other [employer] Other Start: 05-03-2022 Telephone encounter Branden Du [facility] Start: 02-08-2022 End: 02-09-[address] BRANDEN [...] procedure 01/27/2025 1:00 PM EST Office Visit [address] [facility] [address] [place] [address] Vanessa Dave, BALANCE CLERK-RESEARCH ASSOCIATE QUALITY CONTROL QC [address] [facility] [address] [place] [address] [facility] Start: 11-23-2024 Influenza vaccination Influenza Vacc ine (#1) [facility] Start: 11-23-2024 [facility] Start: 11-22-2024 Hospital admission [facility] Start: 11-22-2024 End: 11-22-2024 [facility] Start: 11-03-2024 End: 11-03-2024 Patient encounter procedure 11/03/2024 2:00 PM EDT Office Visit [place] [id number] [place] [address] Vanessa Dave, BALANCE CLERK-RESEARCH ASSOCIATE QUALITY CONTROL QC [address] [facility] [place] [address] [facility] Start: 11-03-2024 End: 11-03-2026 US.doppler Lower extremity vein - right Vascular US lower extremity venous duplex right Vascular Ultrasound STAT Localized edema Expected: 11/03/2024 (Approximate), Expires: 11/03/2026 [facility] Work Phone: Comment on above: Expected: 11/03/2024 (Approximate), Expires: 11/03/2026 Start: 10-03-2024 Urine culture [facility] Start: 10-03-2024 Bacteria identified in Urine by Culture Urine Culture [facility] Start: 09-08-2024 End: 09-08-2024 Patient encounter procedure 09/08/2024 1:00 PM EDT Office Visit [facility] [address] [facility] [address] [place] [id number] Vanessa Dave, BALANCE CLERK-RESEARCH ASSOCIATE QUALITY CONTROL QC [address] [facility] [address] [place] [address] [facility] Start: 08-05-2024 End: 08-05-2025 Basic metabolic 2000 panel - Serum or Plasma Basic Metabolic Panel Lab Routine Coronary artery disease, unspecified vessel or lesion type, unspecified whether angina present, unspecified whether big sandy or transplanted heart Essential hypertension Fatigue, unspecified type Expected: 08/05/2024 (Approximate), Expires: 08/05/2025 [facility] Work Phone: Comment on above: Expected: 08/05/2024 (Approximate), Expires: 08/05/2025 Start: 08-05-2024 End: 08-05-2025 CBC panel - Blood by Automated count CBC Lab Routine Coronary artery disease, unspecified vessel or lesion type, unspecified whether angina present, unspecified whether big sandy or transplanted heart Essential hypertension Fatigue, unspecified type Expected: 08/05/2024 (Approximate), Expires: 08/05/2025 [facility] Work Phone: Comment on above: Expected: 08/05/2024 (Approximate), Expires: 08/05/2025 Start: 08-05-2024 End: 08-05-2025 Thyrotropin [Units/volume] in Serum or Plasma Thyroid Stimulating Hormone Lab Routine Coronary artery disease, unspecified vessel or lesion type, unspecified whether angina present, unspecified whether big sandy or transplanted heart Essential hypertension Fatigue, unspecified type Expected: 08/05/2024 (Approximate), Expires: 08/05/2025 [facility] Work Phone: Comment on above: Expected: 08/05/2024 (Approximate), Expires: 08/05/2025 Start: 06-03-2024 COVID-19 Vaccine () COVID-19 Vaccine () [facility] Start: 05-27-2024 End: 05-27-2024 Patient encounter procedure 05/27/2024 10:50 AM EST Office Visit [place] [id number] [facility] [address] [place] [address] Inderjit Frausto, DO [address] [facility] [address] [place] [address] [facility] Start: 03-11-2024 End: 03-11-2024 Patient encounter procedure 03/11/2024 10:40 AM EST Office Visit [address] [facility] [address] [place] [address] Inderjit Frausto, DO [address] [facility] 2, [facility] [address] [place] [address] [facility] Start: 11-24-2023 Influenza vaccination Influenza Vacc ine (#1) [facility] Start: 10-29-2023 [facility] Start: 10-27-2023 Consultation [facility] Start: 10-27-2023 Hospital admission [facility] Start: 10-27-2023 Referral to cardiac rehabilitation program [facility] Start: 10-27-2023 [facility] Start: 10-27-2023 End: 10-27-2023 [facility] Start: 10-27-2023 Dilation of Coronary Artery, One Artery with Drug-eluting Intraluminal Device, Percutaneous Approach Dilation of Coronary Artery, One Artery with Drug-eluting Intraluminal Device, Percutaneous Approach [facility] Start: 10-27-2023 Fluoroscopy of Left Heart using Low Osmolar Contrast Fluoroscopy of Left Heart using Low Osmolar Contrast [facility] Start: 10-27-2023 Fluoroscopy of Multi ple Coronary Arteries using Low Osmolar Contrast Fluoroscopy of Multiple Coronary Arteries using Low Osmolar Contrast [facility] Start: 10-27-2023 Measurement of Cardi ac Sampling and Pressure, Left Heart, Percutaneous Approach Measurement of Cardiac Sampling and Pressure, Left Heart, Percutaneous Approach [facility] Start: 05-21-2023 Patient referral [facility] Work Phone: Start: 04-29-2023 COVID-19 Vaccine ( season) COVID-19 Vaccine () [facility] Start: 12-23-2021 Influenza vaccination Influenza Vacc ine (#1) [facility] Start: 2005 Pneumococcal vaccination Pneum ococcal Vaccine(s) (65+ yrs) (1 - PCV) [facility] Start: 2005 Screening for osteoporosis [facility] Start: 1990 Shingles (RZV) Vacci ne (1 of 2) Shingles (RZV) Vaccine (1 of 2) [facility] Start: 1962 DTaP/Tdap/Td Vaccine s (1 - Tdap) DTaP/Tdap/Td Vaccines (1 - Tdap) [facility] Start: 1958 Tetanus + diphtheria + acellular pertussis vaccine (product) Tdap Booster [facility] Start: 04-24-1941 COVID-19 Vaccine (#1) COVID-19 Vacci ne (#1) [facility] Start: 1940 Basic metabolic 2000 panel - Serum or Plasma Basic Metabolic Panel [facility] Start: 1940 Lipid panel Lipid Panel [facility] Start: 1940 Medicare Annual Well ness Visit Medicare Annual Wellness Visit (AWV) [facility] Start: 1940 Screening for osteoporosis Bone Density Scan [facility] Comprehensive metabo lic 2000 panel - Serum or Plasma [facility] CT Chest WO contrast [facility] Chest WO contrast [facility] DXA Skeletal system.axial Views for bone density [facility] MG Breast - bilatera l Screening [facility] MR Lumbar spine WO a nd W contrast IV [facility] MR Shoulder - right WO contrast [facility] Patient Education [facility] Work Phone: [facility] Work Phone: Supine abdominal X-ray [facility] XR Cervical spine Vi ews W flexion and W extension [facility] XR Thoracic spine 3 Views [facility] Immunizations Immunization Date Immunization Notes Care Provider Allie nash 12-03-2024 influenza, high dose seasonal, preservative-free Branden Du DO Work Phone: [facility] 12-05-2023 Moderna COVID-19 vaccine, 12 years and older (50mcg/0.5mL)(Spikevax ) Inderjit Frausto DO Work Phone: [facility] Work Phone: 12-04-2023 influenza, high dose seasonal, preservative-free FLAKITA Álvarez Work Phone: [facility] 12-04-2023 influenza virus vaccine, unspecified formulation Vanessa Dave BALANCE CLERK-RESEARCH ASSOCIATE QUALITY CONTROL QC Work Phone: [facility] Work Phone: 05-06-2023 zoster vaccine recombinant Inderjit Frausto DO Work Phone: [facility] Work Phone: 12-27-2022 Influenza, Seasonal, Quadrivalent, Adjuvanted Vanessa Dave BALANCE CLERK-RESEARCH ASSOCIATE QUALITY CONTROL QC Work Phone: [facility] Work Phone: 12-27-2022 Pfizer COVID-19 vaccine, 12 years and older, (30mcg/0.3mL) (Comirnaty) Inderjit Frausto DO Work Phone: [facility] Work Phone: 12-27-2022 RESPIRATORY SYNCYTIA L VIRUS (RSV), ELIGIBLE PTS, 0.5 ML (ABRYSVO) Inderjit Frausto DO Work Phone: [facility] Work Phone: 12-27-2022 influenza virus vaccine, unspecified formulation Inderjit Frausto DO Work Phone: [facility] Work Phone: 08-06-2022 Pneumococcal conjuga te vaccine, 20-valent (PREVNAR 20) Inderjit Frausto DO Work Phone: [facility] Work Phone: 08-06-2022 zoster vaccine recombinant Inderjit Frausto DO Work Phone: [facility] Work Phone: 12-27-2021 Moderna COVID-19 vaccine, bivalent, blue cap/grady label *Check age/dose* Inderjit Frausto DO Work Phone: [facility] 12-13-2021 influenza virus vaccine, split virus (incl. purified surface antigen) Branden Du Other [employer] Other 12-13-2021 influenza virus vaccine, unspecified formulation DO Branden Philly Work Phone: [facility] 12-13-2021 Influenza, Seasonal, Quadrivalent, Adjuvanted Vanessa Dave BALANCE CLERK-RESEARCH ASSOCIATE QUALITY CONTROL QC Work Phone: [facility] Work Phone: 12-14-2020 influenza virus vaccine, split virus (incl. purified surface antigen) Branden Du Other [employer] Other 12-14-2020 influenza virus vaccine, unspecified formulation DO Branden Du Work Phone: [facility] 12-14-2020 Seasonal trivalent influenza vaccine, adjuvanted, preservative free Vanessa Dave BALANCE CLERK-RESEARCH ASSOCIATE QUALITY CONTROL QC Work Phone: [facility] Work Phone: 12-04-2019 influenza virus vaccine, split virus (incl. purified surface antigen) Branden Du Other [facility] [employer] Other 12-04-2019 influenza virus vaccine, unspecified formulation DO Branden Du Work Phone: [facility] 12-16-2018 influenza virus vaccine, split virus (incl. purified surface antigen) Branden Du Other [facility] [employer] Other 12-16-2018 influenza virus vaccine, unspecified formulation DO Branden Du Work Phone: [facility] 01-15-2018 influenza virus vaccine, split virus (incl. purified surface antigen) Branden Du Other [facility] [employer] Other 01-15-2018 influenza virus vaccine, unspecified formulation DO Branden Du Work Phone: [facility] 01-15-2018 influenza, injectabl e, quadrivalent, contains preservative Vanessa Dave BALANCE CLERK-RESEARCH ASSOCIATE QUALITY CONTROL QC Work Phone: [facility] Work Phone: 01-12-2017 influenza virus vaccine, split virus (incl. purified surface antigen) Branden Du Other [facility] 01-12-2017 influenza virus vaccine, unspecified formulation DO Branden Du Work Phone: [facility] 12-27-2015 influenza virus vaccine, split virus (incl. purified surface antigen) Branden Du Other [facility] [employer] Other 12-27-2015 influenza virus vaccine, unspecified formulation DO Branden Du Work Phone: [facility] 12-27-2015 influenza, high dose seasonal, preservative-free Inderjit Frausto DO Work Phone: [facility] Work Phone: 01-28-2015 pneumococcal conjuga te vaccine, 13 valent Branden Du Other [facility] 12-16-2014 influenza, high dose seasonal, preservative-free Inderjit Frausto DO Work Phone: [facility] Work Phone: 05-26-2010 zoster vaccine, live Inderjit Frausto DO Work Phone: [facility] Work Phone: 03-08-2009 novel [id number], preservative-free, injectable Vanessa Dave BALANCE CLERK-RESEARCH ASSOCIATE QUALITY CONTROL QC Work Phone: [facility] Work Phone: Payers Date Payer Category Payer Self-pay 2023 Unknown [id number] 2023 Medicare supplementa l policy (as second payer) [employer] [id number] 2022 Unknown [id number] 2022 Unknown [id number] 2005 Medicare [id number] 1959 Medicare [id number] 1959 Unknown [id number] 1940 Unknown [id number] [id number]. 2.593 1940 Unknown [id number] 2.16.840.1.959540.3.579. 2.593 1940 Unknown [id number] [id number]. 2.593 1940 Unknown [id number] 2.16.840.1.544729.3.579. 2.732 1940 Unknown [id number] 2.16.840.1.794376.3.579. 2.1259 1940 Unknown [id number] 2.16.840.1.837067.3.579. 2.1244 1940 Unknown [id number] 2.16.840.1.329948.3.579. 2.1244 1940 Unknown [id number] 2.16.840.1.896311.3.579. 2.1244 1940 Unknown [id number] 2.16.840.1.475882.3.579. 2.1244 1940 Unknown [id number] 2.16.840.1.895734.3.579. 2.1244 Medicare Medicare [id number] Unknown [id number] [id number]. 2.531 Unknown [id number] [id number]. 2.531 Social History Date Type Detail Facility Tobacco smoking status NHIS Tobacco smoking consumption unknown [facility] Start: 1940 Sex Assigned At [facility] on file [facility] Start: 12-20-2023 End: 11-03-2024 Sex Assigned At [facility] [employer] Other Start: 1940 Sex Assigned At Female F [facility] Start: 06-20-2023 End: 11-22-2024 Tobacco smoking status NHIS Never smoked tobacco (finding) [facility] Start: 10-27-2023 End: 11-23-2024 Tobacco smoking status NHIS Ex-smoker (finding) [facility] Start: 11-05-2023 Tobacco smoking status NHIS Current some day smoker [facility] Start: 03-25-1956 History of tobacco use Current smoker [facility] Work Phone: Start: 03-25-1956 History of tobacco use Cigarette Smoker [facility] Work Phone: Start: 11-07-2023 End: 11-03-2024 Tobacco use and exposure Smokeless tobacco non-user [facility] Work Phone: Start: 11-07-2023 End: 11-03-2024 Alcoholic beverage intake Current drinker of alcohol (finding) [facility] Work Phone: Start: 10-28-2023 End: 08-05-2024 Exposure to SARS-CoV-2 (event) Not sure [facility] Start: 12-20-2023 End: 11-03-2024 Alcoholic beverage intake [facility] Work Phone: Start: 05-12-2024 End: 08-19-2024 Sex Female (finding) [facility] Start: 02-17-2022 Sex Female [facility] Medical Equipment Procedure Code Equipment Code Equipment Origin al Text Equipment Identifier Dates CL STENT PEDRO FRONTIER 4.0 X 18 FDA Start: 10-27-2023 Femoral artery closure plug/patch, synthetic polymer [id number] FDA Start: 10-27-2023 CL STENT PEDRO FRONTIER [...] Facility 11-23-2024 Functional status Patient at Baseline [facility] Work Phone: 10-29-2023 Functional status Patient at Baseline [facility] Work Phone: Mental Status Date Assessment Result Facility 11-23-2024 Cognitive function Cognitive Sta tus Patient at Baseline [facility] Work Phone: 10-29-2023 Cognitive function Cognitive Sta tus Patient at Baseline [facility] Work Phone: Clinical Notes 05-04-2022 to 11-23-2024 Note Date & Type Note Facility 11-23-2024 Discharge summary [facility] 11-23-2024 History and physical note Note Date/Time November 23, 2024 1:05am [facility] [address] [place] [address] Hospitalist H&P Signed Patient: Genny Barboza MR#: [id number] : 1940 Acct:[id number] Age/Sex: 84 / F Adm Date: 5 Loc: 3T Room: [address] [place] [address] Type: ADM INOo Attending Dr: Benjamin Elias MD Copies to: Benjamin Elias MD Branden Du,DO~ HPI DATE OF EXAMINATION: 11/22/24 HISTORY OF [...] half. She was prescribed MiraLAX, suppositories by [facility] which she took with no result. Then [...] no impaction. CT scan abdomen done in [place] about a week ago showed no other [...] cancer resection Colonoscopy July 2023 most recent [facility] Medical History Abdominal distention Compression fx, lumbar [...] % (Auto) 20.6 % (.) 11/22/24 18:22 [place] % (Auto) 13.9 % (.) 11/22/24 18:22 Eos % (Auto) 0.9 % (.) 11/22/24 18:22 Baso % (Auto) 1.1 % (.) 11/22/24 18:22 Nucleat RBC Rel Count 0.1 /100 WBC (0-0.5) 11/22/24 18:22 Neut # (Auto) 4.8 x10E3/uL (1.8-7.7) 11/22/24 18:22 Lymph # (Auto) 1.5 x10E3/uL (1.00-4.8) 11/22/24 18:22 [place] # (Auto) 1.0 x10E3/uL (0.0-0.8) H 11/22/24 [...] pH 5.5 (5.0-9.0) 11/22/24 20:09 Ur Specific Luke 1.005 (1.001-1.030) 11/22/24 20:09 Urine Protein Negative [...] days): 1 Documented By: Benjamin Elias MD 11/23/2457 Signed By: <Electronically signed by Benjamin Elias MD> 11/23/24104 [facility] Work Phone: 1(122) 811-530409-01-2025 [place] [address] Hospitalist H&P Signed Patient: Genny Barboza MR#: [id number] : 1940 Acct:[id number] Age/Sex: 84 / F Adm Date: 5 Loc: Room: [address] [place] [address] Type: ADM INOo Attending Dr: Benjamin Elias MD Copies to: Benjamin Elias MD Branden Du,~ HPI DATE OF EXAMINATION: 11/22/24 HISTORY OF [...] half. She was prescribed MiraLAX, suppositories by [facility] which she took with no result. Then [...] no impaction. CT scan abdomen done in [place] about a week ago showed no other [...] cancer resection Colonoscopy July 2023 most recent [facility] Medical History Abdominal distention Compression fx, lumbar [...] 11/22/24 18:22 MCH 32.8 pg (24.7-34.3) 11/22/24 18: MCHC 34.6 g/dL (32.0-35.0) 11/22/24 18:22 RDW 13.5 % (11.9-15.3) 11/22/24 18:22 Plt Count 290 x10E3/uL (150-450) 11/22/24 18:22 MPV 7.4 fl (6.3-10.7) 11/22/24 18:22 Neut % (Auto) 63.5 % (.) 11/22/24 18:22 Lymph % (Auto) 20.6 % (.) 11/22/24 18:22 [place] % (Auto) 13.9 % (.) 11/22/24 18:22 Eos % (Auto) 0.9 % (.) 11/22/24 18:22 Baso % (Auto) 1.1 % (.) 11/22/24 18:22 Nucleat RBC Rel Count 0.1 /100 WBC (0-0.5) 11/22/24 18:22 Neut # (Auto) 4.8 x10E3/uL (1.8-7.7) 11/22/24 18:22 Lymph # (Auto) 1.5 x10E3/uL (1.00-4.8) 11/22/24 18:22 [place] # (Auto) 1.0 x10E3/uL (0.0-0.8) H 11/22/24 [...] pH 5.5 (5.0-9.0) 11/22/24 20:09 Ur Specific Luke 1.005 (1.001-1.030) 11/22/24 20:09 Urine Protein Negative [...] MD 11/23/24 0058 Signed By: 11/23/24 0105 [facility]08-13-2025 Evaluation note* Diagnosis Onset Date Resolution Status Admit Date Cervical spondylosis with radiculopathy deleted November 04 1:56pm Neck pain deleted November 04, 025 1:56pm Abdominal pain acute October 2:40pm [...] strain acute Oct 9:58am Cervical radiculopathy deleted Au yas 2024 9:58am Primary hypertension acute Augu st 2024 10:23pm Acute hypokalemia resolved November 22, 2024 10:23pm Constipation resolved November 22, 2024 10:23pm History of colon cancer resolved A ugust 2024 10:23pm Alternating constipation and diarrhea acute December 01, 1:22pm Abdominal pain acute December 03, 2024 [...] of T11 vertebra acute December 29 11:25am [facility] Work Phone: [phone] 834-214608-12-2025 Evaluation + Plan note* Assessment & Plan Note - ROLAND Becerril - 11/03/2024 2:22 PM EDTAssociated Problem(s): Localized edema After flight to [place] has noticed RLE pedal edema and calf pain. Will get USN to rule out DVT [facility] Work Phone: [phone] 689-662808-12-2025 Miscellaneous Notes* Assessment & Plan Note - ROLAND Becerril - 11/03/2024 2:22 PM EDTAssociated Problem(s): Localized edema After flight to [place] has noticed RLE pedal edema and calf pain. Will get USN to rule out DVT documented in this [facility] Work Phone: [phone] 906-481908-12-2025 History of Present illness Narrative* ROLAND Becerril [...] home. Otherwise, she just recently traveled to [place] and has noted some right pedal edema, [...] peripheral pulses. No open wounds.Recent travel to [place]. Plan: Through informed decision making process incorporating [...] contact the office if new symptoms arise. PRODUCTION TROUBLESHOOTER as scheduled Vanessa Dave MSN, WOODY-RESEARCH ASSOCIATE QUALITY CONTROL QC, PMHNP-[facility] [place], [place] Please excuse any errors in grammar or translation related to this dictation. Voice recognition software was utilized to prepare this document. documented in this [facility] Work Phone: 1([phone]) 683-163308-12-2025 Instructions* Patient Instructions* ROLAND Becerril - 11/03/2024 [...] contact the office if new symptoms arise. PRODUCTION TROUBLESHOOTER as scheduled documented in this [facility] Work Phone: [phone]) 666-480707-09-2025 Evaluation + Plan note* Assessment & Plan [...] we will transition Lopressor over to carvedilol. [facility] Work Phone: [phone]) 780-499807-09-2025 Miscellaneous Notes* Assessment & Plan Note - [...] andtransitioned over to carvedilol. documented in this [facility] Work Phone: [phone]) 557-953707-09-2025 Evaluation + Plan note* Assessment & Plan Note - ROLAND Becerril - 09/30/2024 8:25 AM EDTAssociated Problem(s): BMI 26.0-26.9,adult Reviewed the merits of healthy lifestyle choices on overall cardiovascular health. [facility] Work Phone: 1([phone]) 630-716607-09-2025 Evaluation + Plan note* Assessment & Plan Note - ROLAND Becerril - 09/30/2024 8:25 AM EDTAssociated Problem(s): Essential hypertension Her dose of Lopressor was down titrated due to fatigability. Blood pressure is borderline in the office. She was noted to have improvement in fatigue with down titration of Lopressor, will discontinue andtransitioned over to carvedilol. [facility] Work Phone: [phone] 296-703407-08-2025 Evaluation note* Diagnosis Onset Date Resolution Status Admit Date Lung nodule acute September 29 1:13pm Cervical spondylosis with radiculopathy acute November 04 1:56pm Neck pain acute November 04, 2 025 1:56pm Abdominal distention acute Aug2024 2:40pm Abdominal pain acute October 2:40pm Compression fx, lumbar spine acute November 16, 2024 2:40pm Internal derangement of righ t shoulder acute November 18 11:26am Right shoulder strain acute Oct us2024 11:26am [facility] Work Phone: [phone]) 371-251007-08-2025 Evaluation note* Diagnosis Onset Date Resolution Status [...] Right shoulder strain acute Oct us2024 11:26am Cervical radiculopathy acute Au 2024 9:58am Compression fracture of L1 lumbar vertebra acute November 19 9:58am Right lumbar radiculopathy acute November 19, 2024 9:58am Right shoulder strain acute Oct us2024 9:58am [facility] Work Phone: 1([phone]) 937-882807-08-2025 Evaluation note* Diagnosis Onset Date Resolution Status [...] Right shoulder strain acute Oct us2024 11:26am Cervical radiculopathy acute yas 2024 9:58am Compression fracture of L1 lumbar vertebra acute November 19 9:58am Right lumbar radiculopathy acute November 19, 2024 9:58am Right shoulder strain acute Oct us2024 9:58am Acute hypokalemia acute November 22, 2024 10:23pm Constipation acute November 22, 2024 10:23pm History of colon cancer acute A ugust 2024 10:23pm Primary hypertension acute 2024 10:23pm [facility] Work Phone: [phone]) [phone] Evaluation note* Diagnosis Onset Date Resolution Status [...] acute Oct us2024 9:58am Cervical radiculopathy deleted 2024 9:58am Primary hypertension acute 2024 10:23pm Acute hypokalemia resolved November 22, 2024 10:23pm Constipation resolved November 22, 2024 10:23pm History of colon cancer resolved A ugust 2024 10:23pm [facility] Work Phone: 1([phone]) [phone] Evaluation note* Diagnosis Onset Date Resolution Status [...] acute Oct us2024 9:58am Cervical radiculopathy deleted [facility] 2024 9:58am Primary hypertension acute 2024 10:23pm Acute hypokalemia resolved November 22, 2024 10:23pm Constipation resolved November 22, 2024 10:23pm History of colon cancer resolved A ugust 2024 10:23pm Alternating constipation and diarrhea acute December 01, 2 025 1:22pm Abdominal pain acute December 03, 2024 11:19am Cervical spondylosis acute Nov 11:19am Compression fracture of L1 lumbar vertebra acute December 03, 2024 11:19am [facility] Work Phone: [phone] 190-836007-08-2025 Evaluation note* Diagnosis Onset Date Resolution Status [...] 2024 9:58am Right shoulder strain acute Oct ust 2024 9:58am Cervical radiculopathy deleted Au yas 2024 9:58am Primary hypertension acute Augu st 2024 10:23pm Acute hypokalemia resolved November 22, 2024 10:23pm Constipation resolved November 22, 2024 10:23pm History of colon cancer resolved A ugust 2024 10:23pm Alternating constipation and diarrhea acute December 01, 1:22pm Abdominal pain acute December 03, 2024 [...] 14, 2024 11:16am Right shoulder strain acute Nov 11:16am [facility] Work Phone: [phone] History of Present illness Narrative* Vanessa Dave, WOODY-RESEARCH ASSOCIATE QUALITY CONTROL QC - 09/29/2024 2:30 PM EDT Chief Complaint [...] contact the office if new symptoms arise. PRODUCTION TROUBLESHOOTER one month Vanessa Dave MSN, BALANCE CLERK-RESEARCH ASSOCIATE QUALITY CONTROL QC, PMHNP-[facility] [place], [place] Please excuse any errors in grammar or translation related to this dictation. Voice recognition software was utilized to prepare this document. documented in this [facility] Work Phone: 1([phone]) 542-792207-08-2025 Instructions* Patient Instructions* ROLAND Becerril - 09/29/2024 [...] contact the office if new symptoms arise. PRODUCTION TROUBLESHOOTER one month [facility]: [phone] Evaluation note* Diagnosis Onset Date Resolution Status Admit Date Cervical spondylosis acute August 19, 2024 1:30pm Neck pain acute August 19, 2024 1:30pm Seborrheic dermatitis acute August 19, 2024 1:30pm Lung nodule acute September 29 1:13pm Cervical spondylosis with radiculopathy acute November 04 1:56pm Neck pain acute November 04, 2 025 1:56pm [facility] Work Phone: [phone]) 117-454005-15-2025 Evaluation + Plan note* Assessment & Plan [...] in from the parking lot without concerns. [facility] Work Phone: [phone]) [phone] Evaluation + Plan note* Assessment & Plan Note - ROLAND Becerril - 08/06/2024 9:41 AM EDTAssociated Problem(s): Fatigue Presents to the office today with complaints of ongoing fatigability and having no energy . Symptoms started close to 4 weeks ago. Her prior angina symptom was a strange chest sensation and she denies any reoccurrence. [facility] Work Phone: 1([phone]) 333-955805-15-2025 Miscellaneous Notes* Assessment & Plan Note - [...] disease) Oct 26, 2024 Inferior STEMI pRCA PCI/[place] 4 x 18 mm mLAD mild intramyocardial bridging O/p Diag 75% small/moderate vessel OM none EF 60% [facility] Work Phone: 1([phone]) [phone] Evaluation + Plan note* Assessment & Plan Note - ROLAND Becerril - 08/06/2024 9:40 AM EDTAssociated Problem(s): BMI 27.0-27.9,adult Reviewed the merits of healthy lifestyle choices on overall cardiovascular health. [facility] Work Phone: [phone]) 119-234705-15-2025 Evaluation + Plan note* Assessment & Plan Note - ROLAND Becerril - 08/06/2024 9:40 AM EDTAssociated Problem(s): Essential hypertension Optimal in office [facility] Work Phone: [phone]) 319-292205-15-2025 Evaluation + Plan note* Assessment & Plan Note - ROLAND Becerril - 08/06/2024 9:40 AM EDTAssociated Problem(s): Hyperlipidemia High intensity statin [facility] Work Phone: 1([phone]) 627-954705-15-2025 Evaluation + Plan note* Assessment & Plan Note - ROLAND Becerril - 08/06/2024 9:40 AM EDTAssociated Problem(s): CAD (coronary artery disease) Oct 26, 2024 Inferior STEMI pRCA PCI/[place] 4 x 18 mm mLAD mild intramyocardial bridging O/p Diag 75% small/moderate vessel OM none EF 60% [facility] Work Phone: 1(447) 895-104205-14-2025 History of Present illness Narrative* ROLAND Becerril [...] her angina symptom on the day of SD was just a strange sensation, denies any [...] contact the office if new symptoms arise. PRODUCTION TROUBLESHOOTER one month Vanessa Dave MSN, BALANCE CLERK-RESEARCH ASSOCIATE QUALITY CONTROL QC, PMHNP-[facility] [place], [place] Please excuse any errors in grammar or translation related to this dictation. Voice recognition software was utilized to prepare this document. [facility] Work Phone: 1(262) 599-301805-14-2025 Instructions* Patient Instructions* ROLAND Becerril - 08/05/2024 [...] contact the office if new symptoms arise. PRODUCTION TROUBLESHOOTER one month documented in this [facility] Work Phone: 1([phone]) 109-203104-28-2025 Evaluation note* Diagnosis Onset Date Resolution Status Admit Date Diarrhea acute July 20 10:57am Gastroesophageal reflux dise ase with esophagitis without hemorrhage acute July 20, 2024 10:57am History of colon cancer acute A l 2024 10:57am IBS (irritable bowel syndrome) acute July 20, 2024 10:57am Intermittent abdominal pain acute July 20, 2024 10:57am [facility] Work Phone: 1([phone]) 720-128404-28-2025 Evaluation note* Diagnosis Onset Date Resolution Status [...] Seborrheic dermatitis acute August 19, 2024 1:30pm [facility] Work Phone: [phone] 158-181304-28-2025 Evaluation note* Diagnosis Onset Date Resolution Status [...] 1:30pm Lung nodule acute September 29 1:13pm [facility] Work Phone: [phone]) 576-383703-05-2025 History of Present illness Narrative* Inderjit Frausto, DO - 05/27/2024 10:50 AM EST Subjective Genny Barboza is a 83 y.o. female Chief Complaint Follow-up; Coronary Artery Disease 83-year-old female returns for follow-up she is doing very well, she has traveled to [place] in [place] and is getting in 12,000 steps daily. [...] type, unspecified whether angina present, unspecified whether big sandy or transplanted heart Follow Up In Cardiology [...] exam, discussion and plan. [facility] Work Phone: 1(751) 517-412503-05-2025 Instructions* Patient Instructions* Jacque Quesada RN - [...] Provided instructions on exercise. [facility] Work Phone: 1(346) 949-959202-18-2025 Evaluation note* Diagnosis Onset Date Resolution Status Admit Date Lung nodule acute April 1:24pm Rotator cuff arthropathy of right shoulder acute May 12 1:24pm Right shoulder pain noneactive Febru jaron 2024 1:24pm Diarrhea acute July 20 10:57am Gastroesophageal reflux disease with esophagitis without hemorrhage acute July 20 025 10:57am History of colon cancer acute A pril 2024 10:57am IBS (irritable bowel syndrome) acute July 20, 2024 10:57am Intermittent abdominal pain acute July 20, 2024 10:57am [facility] Work Phone: 1([phone]) 128-698512-16-2024 Evaluation note* Diagnosis Onset Date Resolution Status [...] shoulder pain noneactive Febru jaron 2024 1:24pm [facility] Work Phone: [phone]) 458-504709-27-2024 History of Present illness Narrative* Inderjit Frausto, [...] type, unspecified whether angina present, unspecified whether big sandy or transplanted heart 8. Former smoker 9. [...] exam, discussion and plan. [facility] in [facility] Work Phone: [phone]) 458-558509-27-2024 Instructions* Patient Instructions* Jacque Quesada RN - [...] pill each day after. documented in [facility] Work Phone: 1(532) [phone] History of Present illness Narrative* Inderjit Frausto DO - 11/07/2023 9:40 AM EDT Subjective [...] type, unspecified whether angina present, unspecified whether big sandy or transplanted heart 2. History of PTCA [...] exam, discussion and plan. documented in [facility] Work Phone: [phone]) 454-450208-15-2024 Instructions* Patient Instructions* Kacy Norris LPN - [...] instructions on dietary changes. documented in this [facility] Work Phone: 1(112) [phone] Consult note Author Sobia Okeefe [facility] October 28, 2023 8:55pm Note Date/Time October 28, 2023 8:5 5pm [facility] [address] [place] [address] Pulmonology Consult Note Signed Patient: Genny Barboza MR#: [id number] 3012 : 1940 Acct:[id number] Age/Sex: 83 / F Adm Date: 4 Loc: Room: [address] [place] [address] Type: ADM IN Attending Dr: Reji Frausto DO Copies to: Branden Du,DO Sobia Benedict MD~ HPI Date/Time of Consultation: Date of Service: 10/28/2023 Time of Service: 20:50 Consulting Provider: Sobia Okeefe Requesting Provider: Reji Frausto Reason for Consult: ICU support History of Present Illness History of present illness: Ms. Barboza is a 83 year old female admitted through the emergency room with new onset chest discomfort and found to have an inferior STEMI, emergently brought to the cath lab radiology technician and found to have RCA with 99% stenosis, s/p PCI, did well was transferred to ICU without needing intubation or hemodynamic support. Currently on RA, on ASA, Brilinta, BB, statin, ROBIN. Review of Systems Constitutional Constitutional: Reports as per HPI Cardiovascular Cardiovascular: Reports as per HPI and Reports chest pain at rest [facility] Medical History Lung nodule CT: 1.7cm [...] <Electronically signed by Sobia Okeefe MD> 10/28/232054 [facility] [place] Work Phone: 1(613) 607-324308-05-2024 Progress note Author Reji Frausto [facility] October 28, 2023 11:54am Note Date/Time October 28, 2023 11: 54am [facility] [address] [place] [address] Cardiology Progress Note Signed Patient: Genny Barboza MR#: [id number] : 1940 Acct:[id number] Age/Sex: 83 / F Adm Date: 4 Loc: Room: 6F2882-6 Type: ADM IN Attending Dr: Reji Frausto [...] administered under my direction, patient arrived in [facility] [facility] at 1756 and underwent primary PCI [...] critical care time were devoted to ER staff,[employer] staff, nursing staff, patient and family [...] % (Auto) 63.6 Lymph % (Auto) 25.7 [place] % (Auto) 8.7 Eos % (Auto) 0.7 Baso % (Auto) 1.3 Nucleat RBC Rel Count 0.1 Neut # (Auto) 5.5 Lymph # (Auto) 2.2 [place] # (Auto) 0.7 Eos # (Auto) 0.1 [...] Troponin I High Sens 10.2 6295.7 H* 02470.3 H* B-Natriuretic Peptide 124.0 H Total Protein [...] % (Auto) 68.0 Lymph % (Auto) 20.4 [place] % (Auto) 10.2 Eos % (Auto) 0.5 Baso % (Auto) 0.9 Nucleat RBC Rel Count 0.1 Neut # (Auto) 5.7 Lymph # (Auto) 1.7 [place] # (Auto) 0.9 H Eos # (Auto) [...] Total Creatine Kinase Troponin I High Sens 47680.9 H* 87228.0 H* 74058.4 H* B-Natriuretic Peptide Total Protein Albumin Globulin [...] <Electronically signed by Reji Frausto DO> 10/28/23 1157 [facility] Work Phone: 1([phone]) 907-300808-04-2024 History and physical note Author Reji Frausto [facility] October 27, 2023 6:21pm Note Date/Time October 27, 2023 5:5 1pm [facility] [address] [place] [address] Cardiology H&P Signed Patient: Genny Barboza MR#: [id number] 3012 : 1940 Acct:[id number] Age/Sex: 83 / F Adm Date: 4 Loc: Room: Type: [facility] Attending Dr: Reji Frausto DO Copies [...] administered under my direction, patient arrived in [facility] at 1756 and underwent primary PCI [...] critical care time were devoted to ER staff,[employer] staff, nursing staff, patient and family both pre and post procedurally. Review of Systems Review of Systems All other systems reviewed & are negative unless noted below or in HPI Constitutional Constitutional: Reports as per HPI Cardiovascular Cardiovascular: Reports as per HPI and Reports chest pain at rest [facility] Medical History Lung nodule CT: 1.7cm [...] x10E3/uL Lymph # (Auto) 2.2 (1.00-4.8) x10E3/uL [place] # (Auto) 0.7 (0.0-0.8) x10E3/uL Eos # [...] results cardiology: sinus rhythm EKG shows: bradycardia SD, pacemaker, normal Myocardial infarction: inferior SD (acute or recent) A&P - Cardiology (1) ST elevation myocardial infarction (STEMI) of inferior wall: Code(s): I21.19 - ST elevation (STEMI) myocardial infarction involving other coronary artery of inferior wall Plan Proceed with emergency cath and PCI Documented By: Reji Frausto DO 10/27/23 1750 Signed By: <Electronically signed by Reji Frausto DO> 10/27/23 1821 [facility] Work Phone: 1(175) 282-819108-04-2024 [facility]-2024 Procedure note [facility]01-30-2024 Evaluation note* Encounter Date Diagnosis Assessment Notes Treatment Notes Treatment Clinical Notes Mar, Primary hypertension (ICD-10 - I10) [employer] Other 01-29-2024 Evaluation note* Encounter Date Diagnosis Assessment Notes Treatment Notes Treatment Clinical Notes Mar, Lung nodule (ICD-10 - R91.1) [employer] Other 01-24-2024 Evaluation note* Encounter Date Diagnosis Assessment Notes Treatment Notes Treatment Clinical Notes Mar, Lung mass (ICD-10 - R91.8) [employer] Other 01-19-2024 Evaluation note* Encounter Date Diagnosis Assessment Notes Treatment Notes Treatment Clinical Notes Mar, Fall, initial encounter (ICD-10 - W19.XXXA) She denies CP, DASILVA, palpitations or lightheadedness Tripped over her shoe laces Fall precautions Mar, Right arm pain (ICD-10 - M79.601) Not sure how she landed. Ice, heat Mar, Contusion of right upper extremity, initial encounter (ICD-10 - S40.021A) [employer] Other 01-15-2024 Evaluation note* Encounter Date Diagnosis Assessment Notes Treatment Notes Treatment Clinical Notes Mar, Left lower quadrant abdominal pain (ICD-10 - R10.32) Mar, Diarrhea, unspecified type (ICD-10 - R19.7) [employer] Other 01-08-2024 Evaluation note* Encounter Date Diagnosis Assessment Notes Treatment Notes Treatment Clinical Notes Mar, Irritable bowel syndrome without diarrhea (ICD-10 - K58.9) [facility] Other 01-02-2024 Evaluation note* Encounter Date Diagnosis [...] would refer for colonoscopy to exclude colitis [employer] Other 12-21-2023 Evaluation note* Encounter Date Diagnosis Assessment Notes Treatment Notes Treatment Clinical Notes Feb, Gastroesophageal ref lux disease with esophagitis without hemorrhage (ICD-10 - K21.00) [employer] Other 11-28-2023 Evaluation note* Encounter Date Diagnosis Assessment Notes Treatment Notes Treatment Clinical Notes Jan, Dysuria (ICD-10 - R30.0) [employer] Other 11-17-2023 Evaluation note* Encounter Date Diagnosis [...] patient on monthly SBE and yearly mammograms. [employer] Other 06-29-2023 Evaluation note* Encounter Date Diagnosis Assessment Notes Treatment Notes Treatment Clinical Notes Aug, Primary hypertension (ICD-10 - I10) [employer] Other 06-05-2023 Evaluation note* Encounter Date Diagnosis [...] best 2/3 readings w/ goal < 135-85 [employer] Other 06-02-2023 Evaluation note* Encounter Date Diagnosis Assessment Notes Treatment Notes Treatment Clinical Notes Aug, Dysuria (ICD-10 - R30.0) [employer] Other 04-17-2023 Evaluation note* Encounter Date Diagnosis Assessment Notes Treatment Notes Treatment Clinical Notes Jun, Primary hypertension (ICD-10 - I10) This patient is instructed to consume a healthy, low-fat, low-salt diet. They are also encouraged to continue exercise to achieve/maintain a normal BMI. Jun, Nicotine dependence, cigarettes, in remission (ICD-10 - F17.211) Continue abstinence [employer] Other 03-21-2023 Evaluation note* Encounter Date Diagnosis Assessment Notes Treatment Notes Treatment Clinical Notes May, Primary hypertension (ICD-10 - I10) [employer] Other 03-20-2023 Evaluation note* Encounter Date Diagnosis Assessment Notes Treatment Notes Treatment Clinical Notes May, Primary hypertension (ICD-10 - I10) [employer] Other 02-28-2023 Evaluation note* Encounter Date Diagnosis Assessment Notes Treatment Notes Treatment Clinical Notes Apr, Primary hypertension (ICD-10 - I10) [employer] Other 02-27-2023 Evaluation note* Encounter Date Diagnosis [...] (ICD-10 - F17.211) Continue abstinence Apr, Other [employer] Other 02-27-2023 History of Present illness Narrative* Sudheer Haro MD - 05/21/2022 10:00 AM EST Images from the original note were not included. EMERGENCY TRIAGE, TREAT AND TRANSPORT (ET3) DOCUMENTATION OF TELEHEALTH VISIT Date / Time: 05/21/2022944 Name: Genny Barboza : 1940 SSN: (Not on file) EMS Agency: [facility] [x] Verbal consent obtained [] [...] the typically is not available at a [place] primary care physician's office.Patient declined using ambulance go to the ER, and her daughter who was present on scene will driveher the 4 minutes will take to get to the [place] ER. I advised her to call 911 [...] by: Sudheer Haro MD documented in this [id number] Evaluation note* Encounter Date Diagnosis Assessment Notes Treatment Notes Treatment Clinical Notes Apr, Nausea (ICD-10 - R11.0) [employer] Other Discharge summary Author Reji Frausto [facility] October 29, 2023 3:50pm Note Date/Time October 29, 2023 3:4 8pm [facility] [address] [place], [place] [id number] Discharge Summary Signed Patient: Genny Barboza MR#: [id number] : 1940 Acct:[id number] Age/Sex: 83 / F Adm Date: 4 Loc: Room: 4P3091-[address]: Reji Frausto DO Copies to: [...] female presented with acute inferior ST elevation SD on Saturday, October 27, 2023 and underwent rapid revascularization of the proximal RCA with large 4 mm drug-eluting stent within 60 minutes. LV function is preserved. Shedoes have small vessel diagonal branch disease that is going to be treated conservatively. She had no postoperative for post SD complications, arrhythmia,heart failure or recurrent angina. She will be discharged this afternoon, currently on aspirin 81 daily, [id number] twice daily, metoprolol 25 twice daily, losartan [...] doctor or pharmacist, without first calling the purchasing manager/sales who implanted the stent. If you require [...] weight lifting, stair steppers, etc. until the purchasing manager/sales approves these activities. Check with the purchasing manager/sales on your first follow-up visit. CALL YOUR LANDSCAPE DRAFTER: -If bleeding should occur from the catheter insertion site- apply pressure to the site then immediately call us. -Report any fever, redness, drainage, increased swelling, or firmness at the catheter insertion site. Some bruising or slight swelling may be present at thetime of discharge. -Should arm or leg become cold, numb, white, or blue, contact the purchasing manager/sales immediately. -IF you should experience episodes of [...] Cardiopulmonary Rehabilitation program is recommended. The attending purchasing manager/sales or a nurse clinician should provide you with specificinstructions regarding activity, diet, medications, and further follow up for you. Follow the medication instructions provided on your discharge. If the dosages and instructions on this sheet differ from the dosage and instructions on the bottle, follow the instructions on the bottle. [facility] is not responsible for incorrect [...] Air 2 10/29/23 12:00 10/29/23 15:00 10/29/23 15:10/29/23 15:10/29/23 15:10/29/23 15:10/29/23 06:00 Const General: cooperative, healthy appearing, [...] % (Auto) 73.5, Lymph % (Auto) 15.8, [place] % (Auto) 9.4, Eos % (Auto) 0.6, Baso % (Auto) 0.7, Nucleat RBC Rel Count 0.1, Neut # (Auto) 5.9, Lymph # (Auto) 1.3, [place] # (Auto) 0.8, Eos # (Auto) 0.0, Baso # (Auto) 0.1, PHA Creatinine Clear 41.47, Sodium 138, Potassium 4.0, Chloride 109 H, Carbon Dioxide 24.3, Anion Gap 8.7, BUN 17, Creatinine 0.91, Est GFR (CKD-EPI) > 60.0, Glucose 105 H, Calcium 9.3 Documented By: Reji Frausto DO 10/29/23 0888 Signed By: <Electronically signed by Reji Frausto DO> 10/29/23 1281 [facility] Work Phone: Discharge summary Author Mendez Lambert [facility] Note Date/Time November 23, 2024 1:27pm [facility] [address] [place], [place] [id number] Discharge Summary Signed Patient: Genny Barboza MR#: [id number] [id number] : 1940 Acct:[id number] Age/Sex: 84 / F Adm Date: 5 Loc: Room: [address] [place] [address]: Mendez Lambert MD Copies to: [...] can be found in the EHR of [facility]. The patient left hospital appropriately [...] Continuity of Care Document Health Concerns: A [facility] screening has identified you as [...] Four Ways to Beat the Frailty Risk [email or web address]-ijv-hsfubvjccd/buqo-wprssc-zbbm- ways- my-eswm-igb-frailty-risk Exam Physical Exam Vital Signs: Temp Pulse Resp BP Pulse Ox O2 Del Method 98.0 F 71 18 118/76 100 Room Air 11/23/24 09:00 11/23/24 09:00 11/23/24 09:00 11/23/24 09:00 11/23/24 09:00 11/23/24 09:00 Diagnostic Studies Completed and Pending Studies Labs on day of discharge: 11/22/24 20:09: Urine Color Colorless, Urine Appearance Clear, Urine pH 5.5, Ur Specific Luke 1.005, Urine Protein Negative, Urine Glucose (UA) [...] % (Auto) 63.5, Lymph % (Auto) 20.6, [place] % (Auto) 13.9, Eos % (Auto) 0.9, Baso % (Auto) 1.1, Nucleat RBC Rel Count 0.1, Neut # (Auto) 4.8, Lymph # (Auto) 1.5, [place] # (Auto) 1.0 H, Eos # (Auto) [...] signed by Mendez Lambert MD> 11/23/24 1327 [facility] Work Phone: Evaluation note* Diagnosis Hypertensive urgency- Primary documented [facility] encounter [facility] InformationN[facility] Other Evaluation noteNo assessment information available [facility] Work Phone: evaluation note* Diagnosis Onset Date Resolution Status Change in bowel habits acute Primary hypertension acute Rotator cuff arthropathy of right shoulder acute Hx of malignant neoplasm of colon noneactive Pain in right shoulder nonea ctive [facility] Work Phone: Evaluation note* Diagnosis Onset Date Resolution Status Change in bowel habits acute Primary hypertension acute Rotator cuff arthropathy of right shoulder acute Hx of malignant neoplasm of colon noneactive Pain in right shoulder nonea ctive Primary hypertension acute Rotator cuff arthropathy of right shoulder acute Pain in right shoulder nonea ctive Change in bowel habits acute [facility] Work Phone: evaluation note* Diagnosis Onset Date Resolution Status ST elevation myocardial infa rction (STEMI) of inferior wall acute [facility] Work Phone: evaluation note* Diagnosis Onset Date Resolution Status ASHD (arteriosclerotic heart disease) acute Hypercholesterolemia acute Lung nodule acute Medication side effects acut e Nicotine addiction acute Primary hypertension acute Shortness of breath acute [facility] Work Phone: evaluation note* Diagnosis Onset Date Resolution Status ASHD (arteriosclerotic heart disease) acute Hypercholesterolemia acute IBS (irritable bowel syndrome) acute Lung nodule acute Nicotine addiction acute Primary hypertension acute ASHD (arteriosclerotic heart disease) acute Hypercholesterolemia acute IBS (irritable bowel syndrome) acute Primary hypertension acute [facility] Work Phone: Evaluation note* Diagnosis [...] bowel syndrome) acute Intermittent abdominal pain acute [facility] Work Phone: Evaluation note* Diagnosis Coronary artery disease, unspecified vessel or lesion type, unspecified whether angina present, unspecified whether big sandy or transplanted heart History of PTCA Postsurgical percutaneous transluminal coronary angioplasty status History of ST elevation myocardial infarction (STEMI) Shortness of breath Former smoker Personal history of tobacco use, presenting hazards to health BMI 26.0-26.9,adult Hyperlipidemia, unspecified hyperlipidemia type documented in this encounter [facility] Work Phone: Evaluation note* Diagnosis Near syncope Fatigue, unspecified type History of PTCA Postsurgical percutaneous transluminal coronary angioplasty status Essential hypertension Unspecified essential hypertension History of ST elevation myocardial infarction (STEMI) Shortness of breath Coronary artery disease, unspecified vessel or lesion type, unspecified whether angina present, unspecified whether big sandy or transplanted heart Former smoker Personal history of tobacco use, presenting hazards to health BMI 27.0-27.9,adult documented in this encounter [facility] Work Phone: Evaluation note* Diagnosis Coronary artery disease, unspecified vessel or lesion type, unspecified whether angina present, unspecified whether big sandy or transplanted heart History of ST elevation myocardial infarction (STEMI) History of PTCA Postsurgical percutaneous transluminal coronary angioplasty status Hyperlipidemia, unspecified hyperlipidemia type Essential hypertension Unspecified essential hypertension BMI 27.0-27.9,adult Former smoker Personal history of tobacco use, presenting hazards to health documented in this encounter [facility] Work Phone: Evaluation note* Diagnosis Hyperlipidemia, unspecified hyperlipidemia type- Primary Coronary artery disease, unspecified vessel or lesion type, unspecified whether angina present, unspecified whether big sandy or transplanted heart History of ST elevation myocardial infarction (STEMI) Essential hypertension Unspecified essential hypertension BMI 27.0-27.9,adult Fatigue, unspecified type Shortness of breath documented in this encounter [facility] Work Phone: Evaluation note* Diagnosis Hyperlipidemia, unspecified hyperlipidemia type- Primary Coronary artery disease, unspecified vessel or lesion type, unspecified whether angina present, unspecified whether big sandy or transplanted heart History of ST elevation myocardial infarction (STEMI) Essential hypertension Unspecified essential hypertension BMI 27.0-27.9,adult Fatigue, unspecified type Shortness of breath Essential hypertension- Primary Unspecified essential hypertension Fatigue, unspecified type BMI 26.0-26.9,adult documented in this encounter [facility] Work Phone: Evaluation note* Diagnosis Hyperlipidemia, unspecified hyperlipidemia type- Primary Coronary artery disease, unspecified vessel or lesion type, unspecified whether angina present, unspecified whether big sandy or transplanted heart History of ST elevation myocardial infarction (STEMI) Essential hypertension Unspecified essential hypertension BMI 27.0-27.9,adult Fatigue, unspecified type Shortness of breath Essential hypertension- Primary Unspecified essential hypertension Fatigue, unspecified type BMI 26.0-26.9,adult BMI 27.0-27.9,adult- Primary Essential hypertension Unspecified essential hypertension Localized edema Edema documented in this encounter [facility] Work Phone: History and physical note Author Reji Frausto [facility] October 27, 2023 6:21pm Note Date/Time October 27, 2023 5:5 1pm [facility] [address] [place] [address] Cardiology H&P Signed Patient: Genny Barboza MR#: [id number] : 1940 Acct:[id number] Age/Sex: 83 / F Adm Date: 4 Loc: Room: Type: [facility] Attending Dr: Reji Frausto DO Copies [...] administered under my direction, patient arrived in [facility] at 1756 and underwent primary PCI [...] critical care time were devoted to ER staff,[employer] staff, nursing staff, patient and family both pre and post procedurally. Review of Systems Review of Systems All other systems reviewed & are negative unless noted below or in HPI Constitutional Constitutional: Reports as per HPI Cardiovascular Cardiovascular: Reports as per HPI and Reports chest pain at rest [facility] Medical History Lung nodule CT: 1.7cm [...] x10E3/uL Lymph # (Auto) 2.2 (1.00-4.8) x10E3/uL [place] # (Auto) 0.7 (0.0-0.8) x10E3/uL Eos # [...] results cardiology: sinus rhythm EKG shows: bradycardia SD, pacemaker, normal Myocardial infarction: inferior SD (acute or recent) A&P - Cardiology (1) ST elevation myocardial infarction (STEMI) of inferior wall: Code(s): I21.19 - ST elevation (STEMI) myocardial infarction involving other coronary artery of inferior wall Plan Proceed with emergency cath and PCI Documented By: Reji Frausto DO 10/27/23 1750 Signed By: <Electronically signed by Reji Frausto DO> 10/27/23 1821 [facility] Work Phone: History general Narrative [...] History CYSTOSCOPY Hospitalization History SEE SURGICAL HX [employer] Other Hospital Discharge instructions Additional Instructions We evaluated you for your shortness of breath. We discussed this is most likely due to your Brilinta. Please see your purchasing manager/sales this afternoon at your previously scheduled appointment. Please follow close with your primary care doctor as well. Please return to the emergency department if you develop any worsening or concerning symptoms.[facility] Work Phone: Reason for referral (narrative)* Consultation (Routine) - Authorized Specialty Diagnoses / Procedures Referred By Contac t Referred To Contact Cardiology Diagnoses Coronary artery disease, unspecified vessel or lesion type, unspecified whether angina present, unspecified whether big sandy or transplanted heart Procedures Follow Up In Cardiology Inderjit Frausto, [address] [place] [address] 2, [place] [phone] Inderjit Frausto, [address] [place] [address] 2, [place] [phone] Referral ID Status Reason Start Date Expiration Date V isits Requested Visits Authorized [id number] Authorized 11/07/2023 11/06/2024 1 1 * Consultation (Routine) - Authorized Specialty Diagnoses / Procedures Referred By Contac t Referred To Contact Cardiac Rehabilitation Diagnoses Coronary artery disease, unspecified vessel or lesion type, unspecified whether angina present, unspecified whether big sandy or transplanted heart History of PTCA History of ST elevation myocardial infarction (STEMI) Inderjit Frausto DO [address] [place] [address] 2, [place] [id number] Referral ID Status Reason Start Date Expiration Date Visits Requested Visits Authorized [id number] Authorized Specialty Services Required 11/07/2023 11/06/2024 1 1 Scheduling Instructions [facility] Work Phone: Reason for referral (narrative)No reason for referral information [facility] Work Phone: Summary Purpose Family [...] Advance Directives No July 18, 024 2:08pm Advance Directive Response Recorded Date/ [...] 09, 2024 3:47pm Medicare annual wellness visit, marcoe nt March 09, 2024 3:47pm Nicotine addiction [...] 1:22pm [facility] f/u December 03, 2024 11:19am Reason for [...] 1:22pm [facility] f/u December 03, 2024 11:19am [facility] 3 [...] 11:16am Right shoulder strain December 14 11:16am Chief Complaint Admit Date Unknown October 03, [...] 2024 10:33am Constipation December 01, 2024 1:22pm [facility] f/u December 03, 2024 11:19am [facility] 3 WEEKS December 14, 2024 11:16am MRI [...] 11:25am Compression fracture of T11 vertebra Oct payam2024 11:25am Reason for Referral Specialty Diagnoses / Procedures Referred By Contac t Referred To Contact Diagnoses Near syncope Fatigue, unspecified type Procedures ECG 12 Lead Inderjit Frausto, [address] [facility] 2, [address] [address] Referral ID Status Reason Start Date Expiration Date V isits Requested Visits Authorized [id number] Authorized 12/20/2023 12/19/2024 1 1 Additional Source Comments Reason for Visit (unrecogniz ed section and content) Reason Comments Headache Hypertension Reason Comments TCM SD on 10/27/23 at [facility] Reason Comments Follow-up Dyspnea, near syncop e, med concerns Specialty Diagnoses / Procedures Referred By Contac t Referred To Contact Diagnoses Near syncope Fatigue, unspecified type Procedures ECG 12 Lead Inderjit Frausto, DO [address] [facility] [address], [address] [address] Referral ID Status Reason Start Date Expiration Date V isits Requested Visits Authorized [id number] Authorized 12/20/2023 12/19/2024 1 1 Reason Comments Follow-up 6m Coronary Artery Disease Specialty Diagnoses / Procedures Referred By Contac t Referred To Contact Cardiology Diagnoses Coronary artery disease, unspecified vessel or lesion type, unspecified whether angina present, unspecified whether big sandy or transplanted heart Procedures Follow Up In Cardiology Inderjit Frausto, [address] [facility] 2, [address] [address] Phone: tel: fax: Inderjit Frausto DO [address] [facility] 2, [address] [address] Phone: tel: fax: Referral ID Status Reason Start Date Expiration Date V isits Requested Visits Authorized [id number] Pending Review 11/07/2023 11/06/2024 1 1 Reason Comments Follow-up Shortness of breath, fatigue Reason Comments Follow-up 1 months Coronary ar shira disease, unspecified vessel or lesion type, unspecified whether angina present, unspecified whether big sandy or transplanted heart Specialty Diagnoses / Procedures Referred By Contac t Referred To Contact Cardiology Diagnoses Fatigue, unspecified type Procedures Follow Up In Cardiology Vanessa Dave, BALANCE CLERK-RESEARCH ASSOCIATE [employer] [address] [facility] 2, [address] [address] Phone: tel: fax: Referral ID Status Reason Start Date Expiration Date V isits Requested Visits Authorized [id number] Authorized 08/05/2024 08/05/2025 1 1 Reason Comments Follow-up 7 month Follow up fo r Hypertension Specialty Diagnoses / Procedures Referred By Contac t Referred To Contact Cardiology Diagnoses Essential hypertension Procedures Follow Up In Cardiology Vanessa Dave, BALANCE CLERK-RESEARCH ASSOCIATE [employer] [address] [facility] 2, [address] [address] Phone: tel: fax: Referral ID Status Reason Start Date Expiration Date V isits Requested Visits Authorized [id number] Authorized 09/29/2024 09/29/2025 1 1 INFORMATION SOURCE (unrecogn ized section and content) DATE CREATED AUTHOR 05/23/2022 [facility] DATE CREATED AUTHOR AUTHOR'S ORGANIZ ATION 05/25/2022 [facility] DATE CREATED AUTHOR AUTHOR'S ORGANIZ ATION 04/25/2023 [facility] EPIC DATE CREATED AUTHOR AUTHOR'S ORGANIZ ATION 11/10/2024 [facility] DATE CREATED AUTHOR AUTHOR'S ORGANIZ ATION 11/28/2024 [facility] Care Teams (unrecognized sec tion and content) Team Status: Active Member Role Status Dates Branden Ball , DO Primary Care Provider Active Team Status: Active Member Role Status Dates Branden Du DO Primary Care Provider Active Start: October 03, 2024 Laurie Mills MD Attending Provider Active Sta rt: October 03, 2024 Team Status: Inactive Member Role Status Dates Laurie Mills MD Attending Provider Active Sta rt: October 03, 2024 End: October 03, 2024 Team Status: Inactive Member [...] 2024 End: November 16, 2024 Branden Du DO Attending Provider Active [...] 2024 End: November 19, 2024 Team Status: Inactive Member Role [...] December 14, 2024 End: December 14, 2024 Team Status: Active Member Role Status Renetta Du DO Primary Care Provider Active Start: December 18, 2024 Shannon Chan MD Attending Provider Active S tart: December 18, 2024 Team Status: Inactive Member Role Status Renetta Du DO Primary Care Provider Active Start: December 29, 2024 End: December 29, 2024 Roxane Granda APRN Attending Provider Active Start: December 29, 2024 End: December 29, 2024 Team Status: Active Member Role Status Renetta Du DO Primary Care Provider Active Team Status: Inactive Member Role Status Renetta [...] Team Status: Inactive Member Role Status Renetta uD DO Primary Care Provide r, Attending [...] 2023 Team Status: Active Member Role Status Renetta [...] December 12, 2023 End: December 12, 2023 Information Assurance Specialist Relationship Specialty Start Date End Date Branden Du DO [address] [place] [address] PCP - General Internal Medicine 11/07/23 Maura Andres RN Care Insurance Processing Clerk 10/30/23 Information Assurance Specialist Relationship Specialty Start Date End Date Branden Du DO [address] [place] [address] PCP - General Internal Medicine 11/07/23 Maura Andres RN Care Insurance Processing Clerk 10/30/23 Information Assurance Specialist Relationship Specialty Start Date End Date Branden Du DO [address] [place] [address] PCP - General Internal Medicine 11/07/23 Information Assurance Specialist Relationship Specialty Start Date End Date Branden Du DO [address] [place] [address] PCP - General Internal Medicine 11/07/23 Team [...] September 29, 2024 End: September 29, 2024 Information Assurance Specialist Relationship Specialty Start Date End Date Branden Du DO [address] [place] [address] PCP - General Internal Medicine 11/07/23 Team Status: Active Member Role Status Dates Branden Du DO Primary Care Provider Active Start: October 03, 2024 Laurie Mills MD Attending Provider Active Sta rt: October 03, 2024 Team Status: Inactive Member Role Status Dates Laurie Mills MD Attending Provider Active Sta rt: October 03, 2024 End: October 03, 2024 Information Assurance Specialist Relationship Specialty Start Date End Date Branden Du DO [address] [place] [address] PCP - General Internal Medicine 11/07/23 Team Status: Inactive Member Role Status Renetta [...] 2024 End: November 16, 2024 Branden Du DO Attending Provider Active [...] December 14, 2024 End: December 14, 2024 Team Status: Active Member Role Status Dates Branden Du DO Primary Care Provider Active Start: December 18, 2024 Shannon Chan MD Attending Provider Active S tart: December 18, 2024 Team Status: Inactive Member Role Status Dates Branden Du DO Primary Care Provider Active Start: December 29, 2024 End: December 29, 2024 Roxane Granda APRN Attending Provider Active Start: December 29, 2024 End: December 29, 2024 Goals (unrecognized section and content) Type [...] BE BASED ON THE PRIMARY CLINICAL RECORDS. [employer] [facility]. provides no warranty or guarantee of the accuracy or completeness of information in this document.
== END 2025-01-07 12:34 | disposition home or self-care (01) ==
LOC: RAD 12:33
PROVIDERS: PCP Internal Medicine; Visit Provider Orthopaedic Surgery Orthopaedic Trauma
DX: Z78.0 Asymptomatic menopausal state (principal); Z87.311 Personal history of (healed) other pathological fracture
CPT/HCPCS: 77080

== ENCOUNTER 2025-01-07 12:35 | Outpatient (OUT) | payer MEDICARE, SELFPAY ==
--- OUTSIDE RECORDS SUMMARY | 2024-12-29 08:14 | XMS_ITS | Continuity of Care Document ---
Author Organization [facility] Address [address] [place] [address] Phone Care Team Providers Care Director Of Product Development Name Role Phone Branden Du DO Primary Care Provider Laurie Mills MD Attending Provider Branden Du DO Attending Provider [phone] Maura Perez CMA Attending Provider Unavaila ble Justus Damon DO Attending Provider Roxane Granda APRN Attending Provider [phone] Trinity Obrien MD Emergency Provider Benjamin Elias MD Admit Provider Mendez Lambert MD Attending Provider Shmuel Martinez APRN Attending Provider Shannon Chan MD Attending Provider Unavailab le Care Teams Patient Care Team Team Status: Active Member Role Status Dates Branden Du DO Primary Care Provider Active Visit Care Team Team Status: Active Member Role Status Dates Branden Du DO Primary Care Provider Active Start: October 03, 2024 Laurie Mills MD Attending Provider Active Sta rt: October 03, 2024 Visit Care Team Team Status: Inactive Member Role Status Dates Laurie Mills MD Attending Provider Active Sta rt: October 03, 2024 End: October 03, 2024 Visit Care Team Team Status: Inactive Member Role Status Dates Branden Du DO Primary Care Provider Active Start: November 04, 2024 End: November 04, 2024 Branden Du , Attending Provider Active Sta rt: November 04, 2024 End: November 04, 2024 Visit Care Team Team Status: Active Member Role Status Dates Branden Du DO Primary Care Provider Active Start: November 09, 2024 Maura Perez CMA Attending Provider Active Start: November 09, 2024 Visit Care Team Team Status: Inactive Member Role Status Dates Branden Du , Primary Care Provider Active Start: November 16, 2024 End: November 16, 2024 Branden Du , DO Attending Provider Active Sta rt: November 16, 2024 End: November 16, 2024 Visit Care Team Team Status: Inactive Member Role Status Dates Branden Du DO Primary Care Provider Active Start: November 18, 2024 End: November 18, 2024 Justus Damon DO Attending Provider Active S tart: November 18, 2024 End: November 18, 2024 Visit Care Team Team Status: Inactive Member Role Status Dates Branden Du DO Primary Care Provider Active Start: November 19, 2024 End: November 19, 2024 Roxane Granda APRN Attending Provider Active Start: November 19, 2024 End: November 19, 2024 Visit Care Team Team Status: Inactive [...] November 22, 2024 End: November 23, 2024 Visit Care Team Team Status: Active Member Role Status Dates Branden Du DO Primary Care Provider Active Start: November 26, 2024 Maura Perez CMA Attending Provider Active Start: November 26, 2024 Visit Care Team Team Status: Inactive Member Role Status Dates Branden Du DO Primary Care Provider Active Start: December 01, 2024 End: December 01, 2024 Shmuel Martinez APRN Attending Provider Active Start: December 01, 2024 End: December 01, 2024 Visit Care Team Team Status: Inactive Member Role Status Dates Branden Du DO Primary Care Provider Active Start: December 03, 2024 End: December 03, 2024 Branden Du DO Attending Provider Active Sta rt: December 03, 2024 End: December 03, 2024 Visit Care Team Team Status: Inactive Member Role Status Dates Branden Du DO Primary Care Provider Active Start: December 14, 2024 End: December 14, 2024 Justus Damon DO Attending Provider Active S tart: December 14, 2024 End: December 14, 2024 Patient Care Team Team Status: Active Member Role Status Dates Branden Du DO Primary Care Provider Active Start: December 18, 2024 Shannon Chan MD Attending Provider Active S tart: December 18, 2024 Patient Care Team Team Status: Inactive Member Role Status Dates Branden Du DO Primary Care Provider Active Start: December 29, 2024 End: December 29, 2024 Roxane Granda APRN Attending Provider Active Start: December 29, 2024 End: December 29, 2024 Chief Complaint and Reason for Visit Chief Complaint Admit Date Unknown October 03, 2024 4:46 pm MRI results November 04, 2024 1: 56pm Amb Documentation November 09, 2024 11 :45am stomach extended November 16, 2024 2: 40pm ER TB RT SHOULDER INJURY WX October 11:26am [facility] er f/u had a fall November 19, 2024 9:58am constipation November 22, 2024 10 :23pm Amb Documentation November 26, 2024 10:33am Constipation December 01, 2024 1:22pm [facility] [place] December 03, 2024 11:19am TB 3 WEEKS December 14, 2024 11:16am MRI results December 29, 2024 11 :25am Reason for Visit Admit Date Cervical spondylosis with radiculopathy November 04, 2024 [...] 11:16am Right shoulder strain December 14 11:16am Compression fracture of L1 lumbar verteb ra December 29, 2024 11:25am Compression fracture of T11 vertebra Oct payam 2024 11:25am Reason for Referral Referring Provider Name Referring Provider Address Referring Provider Phone Referral Date Requested Appointment Date Referral Reason [facility] [address] [facility] [address] Work Phone: Office is closed for the holiday. Please call tomorrow on 11/24/24 to schedule a post hospital follow up apt within the next seven days. Health Concerns Concerns A [facility] screening has identified you as FRAIL or [...] Four Ways to Beat the Frailty Risk [email or web address] Allergies, Adverse Reactions, Alerts Allergen Type Severity Reaction Last Updated Verified Status Comments Penicillins Allergy Unknown Unknown Reaction December 29, 2024 11:38am Yes Active Onset Date: 09/07/2013 Social History Smoking Status Status Start Date End Date Date of Observa tion Ex-smoker (finding) Septembe r 2024 1:04am Observation Status Observation Response Date of Response Legal Sex Female (finding) Sex Assigned At Female 1940 Family History Relationship Condition Age at Onset Recorded Date/T megan father Unknown family member Unknown mother Unknown Problems Active Problems Medical Problem Onset Date Status Comments Alternating constipation and diarrhea Unknown Act leyla Rotator cuff arthropathy of right shoulder Unknown Active Compression fracture of L1 l umbar vertebra Unknown Active Compression fracture of T11 vertebra Unknown Acti ve Medicare annual wellness vis it, subsequent Unknown Active Gastroesophageal reflux dise ase with esophagitis without hemorrhage Unknown Active Nicotine addiction Unknown Active History of colon resection Unknown Active c olon cancer Screening mammogram for breast cancer Unknown Act leyla Internal derangement of right shoulder Unknown Ac tive Hypercholesterolemia Unknown Active Post-menopausal Unknown Active Lung nodule Unknown Active CT: 1.7cm nodul e RLL - ET/CT: no FDG avid nodules - 04/2023,CT: 1.9cm nodule RLL - 06/2023,CT: 2.6cm RLL mass - 02/2024,CT: 2cm RLL nodule - 08/2024 Change in stool caliber Unknown Active Cervical spondylosis Unknown Active MRI: C3 -4 mod foraminal stenosis, C4-5 mod foraminal and canal stenosis, C5-6 severe right foraminal stenosis, C7-T1 moderate B/L foraminal narrowing - 10/2024 Primary hypertension Unknown Active History of fragility fracture Unknown Active Right shoulder strain Unknown Active Right lumbar radiculopathy Unknown Active Abdominal pain Unknown Active IBS (irritable bowel syndrome) Unknown Active Lumbar spondylosis Unknown Active MRI: L4-5 severe canal stenosis w/ severe right/mod left foraminal stenosis, subacute fx T11, L1 - 11/2024 ASHD (arteriosclerotic heart disease) Unknown Act leyla Inactive/Resolved Problems Medical Problem Onset Date Status Comments Medication side effects Unknown Resolved History of colon cancer Unknown Resolved Shortness of breath Unknown Resolved ST elevation myocardial infa rction (STEMI) of inferior wall Unknown Resolved Constipation Unknown Resolved Acute hypokalemia Unknown Resolved Medications Medication Status Dose Units [...] .ROUTE .COMPLEX October 07, 2023 12:27p m 2023 5:26a m TAKE ONE CAPSULE BY [...] 5 MG PO Daily 2023 12:00a m [facility] 2023 12:35 pm Amlodipine 5 mg tablet Discont inued 0 .ROUTE .COMPLEX 2023 12:35p m August 06, 2024 1:26p m TAKE ONE TABLET BY MOUTH DAILY Scopolamine Base 1 mg over 3 days patch 3 day Discont inued 1 PATCH TRANSD ERML Every 72 hours 4 [facility] 1:[facility]am July 20, 2024 11:17 am Omeprazole 40 mg capsule,del ayed release(DR/ EC) Active 40 MG PO Daily as needed for pain 90 90 2024 3:07pm Complies with drug therapy Metoprolol Tartrate 25 mg tablet Discont inued 12.5 MG PO Twice daily August 06, 2024 1:25pm September 30, 2024 11:50 am Amlodipine 5 mg tablet Discont inued 0 .ROUTE .COMPLEX August 06, 2024 1:26pm Octob er 2024 7:22a m TAKE ONE TABLET BY MOUTH DAILY Carvedilol 6.25 mg tablet Active 6.25 MG PO Twice daily 60 September 30, 2024 12:00a m must administer with a meal/food Complies with drug therapy Amlodipine 5 mg tablet Active 0 .ROUTE .COMPLEX Octobe r 2024 7:22am TAKE ONE TABLET BY MOUTH DAILY Complies with drug therapy Clopidogrel 75 mg tablet Active 75 MG PO Daily November 22, 2024 12:00a m Complies with drug therapy Polyethylen e Glycol 3350 (Miralax) 17 gram/dose powder Active 17 GM PO Daily as needed for constipatio n 510 Sept2024 12:00a m Complies with drug therapy Amlodipine 5 mg tablet Discont inued 5 MG PO Daily October 27, 2023 12:00a m [facility] 2023 3:49p m Omeprazole 40 mg capsule,del ayed release(DR/ EC) Discont inued 40 MG PO Daily as needed for pain October 28, 2023 12:00a m Janua ry 2024 3:07p m Atorvastati n 80 mg Tablet Active 80 MG PO Every evening 90 October 29, 2023 12:00a m Complies [...] Discont inued 25 MG PO Every morning 30 30 October 29, 2023 12:00a m [facility] 2023 12:35 pm Omeprazole 40 mg capsule,del [...] Discont inued 100 MG PO Twice daily [facility] 2023 1:23pm [facility] 2023 6:05p m Dicyclomine 10 mg capsule Discont inued 10 MG PO Twice daily 60 30 [facility] 2023 12:00a m [facility] 2023 2:18p m Losartan 50 mg tablet Discont inued 50 MG PO Twice daily 60 30 [facility] 2023 7:48pm [facility] 2023 1:32p m Dicyclomine 20 mg tablet Discont inued 20 MG PO Twice daily 60 30 [facility] 2023 1:00am July 20, 2024 11:24 am Clopidogrel (Plavix) 75 mg tablet Discont inued 75 MG PO Daily [facility] 2023 1:00am [facility] 2024 10:28 pm Prednisone 10 mg tablet Discont inued 10 MG PO As Directed 02 27November 04, 2024 12:00a m [facility] 2024 10:28 pm 1 tablet PO tid w/ food x 2 days then bid w/ food x 2 days then qd w/ food x 2 days Tizanidine 2 mg tablet Discont inued 0 PO Daily at bedtime as needed for muscle spasticity 01 01November 04, 2024 12:00a m [facility] 2024 10:28 pm 1/2 - 1 tablet orally daily at bedtime PRN; Cholecalcif scott (Vitamin D3) 50 mcg (2,000 unit) tablet,chew able Active 50 MCG PO Daily 2024 12:00a m Complies with drug therapy Polyethylen e Glycol 3350 (Miralax) 17 gram/dose powder Active 17 GM PO Daily 119 2024 12:00a m Complies with drug therapy Amlodipine 5 mg tablet Discont inued 5 MG PO Daily 2023 1:00am June 20, 2023 2:35p m Famotidine 40 mg tablet Discont inued 40 MG PO Daily at bedtime 2023 1:00am June 20, 2023 2:35p m Hyoscyamine Sulfate (Levsin/Sl) 0.125 mg tablet, sublingual Discont inued 0.125 MG SUBLIN GUAL .COMPLEX 2023 1:00am July 24, 2023 1:19p m 0.125 mg sublingually before meals and at bedtime Losartan 50 mg tablet Discont inued 50 MG PO Daily 2023 1:00am Oct 2023 3:49p m Meloxicam 15 mg tablet Discont inued 15 MG PO Daily 2023 1:00am June 20, 2023 2:35p m Ondansetron 4 mg tablet,disi ntegrating Discont inued 4 MG PO Every 6 hours as needed 2023 1:00am June 20, 2023 2:35p m Losartan 25 mg tablet Discont inued 25 MG PO Twice daily November 12, 2023 12:19p m [facility] 2023 7:48p m Hyoscyamine Sulfate 0.125 mg tablet, sublingual Discont inued 0.125 MG SUBLIN GUAL 2-4 TIMES PER DAY as needed for abdominal pain, diarrhea November 12, 2023 12:00a m [facility] 2023 1:31p m Amlodipine 5 mg tablet Discont inued 5 MG PO Daily 30 November 114 12:00a m Septe mber 2023 1:30p m Metoprolol Tartrate 25 mg tablet Discont inued 25 MG PO Twice daily [facility] 2023 1:00am August 06, 2024 1:26p m Dicyclomine 20 mg tablet Discont inued 20 MG PO Twice daily 180 90 July 20, 2024 11:23a m [facility] 2024 1:23p m Ketoconazol e 2 % shampoo Discont inued 1 APPLIC TOPICA L 3 Times a week 120 August 19, 2024 12:00a m [facility] 2024 10:28 pm Clobetasol 0.05 % solution Discont inued 1 APPLIC TOPICA L Daily at bedtime August 19, 2024 12:00a m Aug[facility] t 2024 10:28 pm Immunizations Immunization Event Date Not Given Reason Dose Number Deputy Chief Counsel Lot Number Vaccine Information Statement (VIS) Detail Administration Location Fluzone TIV High-Dose 65YR+ December 04, 2023 [id number] [facility] Fluzone TIV High-Dose 65YR+ December 03, 2024 [id number] [facility] influenza, unspecified formulation December 27, 2015 [...] plug/patch, synthetic polymer October 27, 2023 KYM: [id number] Issuing Agency: [facility] Device Id: [id number] Lot Number: [id number] Procedures Procedure Date Performed Status Urine Culture October 03, 2024 completed XR KUB November 22, 2024 6:32pm complet ed Relevant Diagnostic Tests and/or Laboratory Data Laboratory Results Test Collection Date/Time Result Date/Time Result Interpretation Reference Range Result Comment Performing Site Troponin I High Sensitiv ity October 03, 2024 3:34pm October 03, 2024 3:34pm 5.7 pg/mL 4.0-51.3 CUT-OFF POINTS HAVE BEEN ESTABLISHE D BASED ON THE [facility] ERSAL DEFINITION OF MYOCARDIAL INFARCTION . THE UPPERREFER ENCE LIMIT (URL) OF TROPONIN, DEFINED THE 99THPERCEN TILE OF cTnI DISTRIBUTI ON IN A REFERENCE POPULATION ,HAS BEEN CONFIRMED THE DECISION THRESHOLD FOR MIDIAGNOSI S.99TH PERCENTILE = 51.4 PG/MLNOTE: HIGH-SENSI TIVITY TROPONIN ASSAY IS NOT INTENDED TO BEUSED IN ISOLATION BUT SHOULD BE INTERPRETE D IN [facility] OTHER DIAGNOSTIC AND CLINICAL INFORMATIO N. Anion Gap October 03, 2024 3:34pm October 03, 2024 3:34pm 13.1 Basophil s # (Auto) October 03, 2024 3:34pm October 03, 2024 3:34pm 0.0 10 3/uL 0.0-0.1 Urine Culture Reflexed October 03, 2024 4:46pm October 03, 2024 4:46pm [facility] Urine Microsco pic Review October 03, 2024 4:46pm YES Urine Other Casts November 16, 2024 5:00pm NONE SEEN #/LPF NONE SEEN Troponin I High Sensitiv ity November 16, 2024 5:14pm November 16, 2024 5:14pm 5.7 pg/mL 4.0-51.3 CUT-OFF POINTS HAVE BEEN ESTABLISHE D BASED ON THE [facility] ERSAL DEFINITION OF MYOCARDIAL INFARCTION . THE UPPERREFER ENCE LIMIT (URL) OF TROPONIN, DEFINED THE 99THPERCEN TILE OF cTnI DISTRIBUTI ON IN A REFERENCE POPULATION ,HAS BEEN CONFIRMED THE DECISION THRESHOLD FOR MIDIAGNOSI S.99TH PERCENTILE = 51.4 PG/MLNOTE: HIGH-SENSI TIVITY TROPONIN ASSAY IS NOT INTENDED TO BEUSED IN ISOLATION BUT SHOULD BE INTERPRETE D IN [facility] OTHER DIAGNOSTIC AND CLINICAL INFORMATIO N. Magnesiu m Level November 16, 2024 5:14pm November 16, 2024 5:14pm 2.2 mg/dL 1.8-2.4 Activate d Partial Thrombop last Time November 16, 2024 5:14pm November 16, 2024 5:14pm 21.9 sec Below low normal 22.3-36.2 Prothrom b Time Internat ional Ratio November 16, 2024 5:14pm November 16, 2024 5:14pm 0.97 DESIRED INR:2.0-3. 0 CONDITIONS NOT LISTED BELOW2.5-3 .5 FOR PROSTHETIC HEART VALVE REPLACEMEN T2.5-3.5 RECURRENT THROMBOSIS Lactic Acid Level November 16, 2024 5:14pm November 16, 2024 5:14pm 1.4 mmol/L 0.4-2.0 Anion Gap November 16, 2024 5:14pm November 16, 2024 5:14pm 14.7 Basophil s # (Auto) November 16, 2024 5:14pm November 16, 2024 5:14pm 0.0 10 3/uL 0.0-0.1 Creatini ne December 18, 2024 12:31pm December 18, 2024 12:31pm 0.81 mg/dL 0.55-1.02 Albumin/ Globulin Ratio October 03, 2024 3:34pm October 03, 2024 3:34pm 1.1 Basophil s (%) (Auto) October 03, 2024 3:34pm October 03, 2024 3:34pm 0.5 % 0.2-2.0 Urine Other Casts October 03, 2024 4:46pm October 03, 2024 4:46pm NONE SEEN #/LPF NONE SEEN Urine Bilirubi n October 03, 2024 4:46pm NEGATIVE NEGATIVE Urine Other Crystals November 16, 2024 5:00pm None Seen #/HPF None Seen Prothrom bin Time November 16, 2024 5:14pm November 16, 2024 5:14pm 10.3 sec 9.0-11.6 Albumin/ Globulin Ratio November 16, 2024 5:14pm November 16, 2024 5:14pm 0.9 Basophil s (%) (Auto) November 16, 2024 5:14pm November 16, 2024 5:14pm 0.2 % 0.2-2.0 Estimate d GFR ( ) December 18, 2024 12:31pm December 18, 2024 12:31pm >60 >=60 mL/min/1.7 3m 2 Albumin October 03, 2024 3:34pm October 03, 2024 3:34pm 3.5 g/dL 3.4-5.0 Eosinoph ils # (Auto) October 03, 2024 3:34pm October 03, 2024 3:34pm 0.1 10 3/uL 0.0-0.7 Urine Other Crystals October 03, 2024 4:46pm October 03, 2024 4:46pm None Seen #/HPF None Seen Urine Occult Blood October 03, 2024 4:46pm TRACE-L NEGATIVE Urine Bacteria November 16, 2024 5:00pm TRACE #/HPF Abnormal (applies to non-numeric results) NONE SEEN Albumin November 16, 2024 5:14pm November 16, 2024 5:14pm 3.6 g/dL 3.4-5.0 Eosinoph ils # (Auto) November 16, 2024 5:14pm November 16, 2024 5:14pm 0.0 10 3/uL 0.0-0.7 Estimate d GFR (Non-Afr ican Afghan December 18, 2024 12:31pm December 18, 2024 12:31pm >60 >=60 mL/min/1.7 3m 2 Alkaline Phosphat ase October 03, 2024 3:34pm October 03, 2024 3:34pm 109 U/L 46-116 Eosinoph ils (%) (Auto) October 03, 2024 3:34pm October 03, 2024 3:34pm 1.1 % 0.9-7.0 Urine Bacteria October 03, 2024 4:46pm October 03, 2024 4:46pm SMALL #/HPF Abnormal (applies to non-numeric results) NONE SEEN Urine Appearan ce October 03, 2024 4:46pm CLEAR CLEAR Urine Bilirubi n November 16, 2024 5:00pm NEGATIVE NEGATIVE Alkaline Phosphat ase November 16, 2024 5:14pm November 16, 2024 5:14pm 133 U/L Above high normal 46-116 Eosinoph ils (%) (Auto) November 16, 2024 5:14pm November 16, 2024 5:14pm 0.1 % Below low normal 0.9-7.0 Alanine Aminotra nsferase (ALT/SGP T) October 03, 2024 3:34pm October 03, 2024 3:34pm 30 U/L 14-59 Hematocr it October 03, 2024 3:34pm October 03, 2024 3:34pm 39.3 % 36.0-48.0 Urine Mucus October 03, 2024 4:46pm October 03, 2024 4:46pm NONE SEEN NONE SEEN Urine Color October 03, 2024 4:46pm LT. YELLOW YELLOW Urine Occult Blood November 16, 2024 5:00pm TRACE-I NEGATIVE Alanine Aminotra nsferase (ALT/SGP T) November 16, 2024 5:14pm November 16, 2024 5:14pm 41 U/L 14-59 Hematocr it November 16, 2024 5:14pm November 16, 2024 5:14pm 41.7 % 36.0-48.0 Aspartat e Amino Transf (AST/SGO T) October 03, 2024 3:34pm October 03, 2024 3:34pm 15 U/L 15-37 Hemoglob in October 03, 2024 3:34pm October 03, 2024 3:34pm 13.3 g/dL 12.0-16.0 Urine RBC October 03, 2024 4:46pm October 03, 2024 4:46pm 2-5 #/HPF Abnormal (applies to non-numeric results) 0-2 Urine Glucose (UA) October 03, 2024 4:46pm NEGATIVE mg/dL NEGATIVE Urine Appearan ce November 16, 2024 5:00pm CLEAR CLEAR Aspartat e Amino Transf (AST/SGO T) November 16, 2024 5:14pm November 16, 2024 5:14pm 22 U/L 15-37 Hemoglob in November 16, 2024 5:14pm November 16, 2024 5:14pm 13.8 g/dL 12.0-16.0 BUN/Crea tinine Ratio October 03, 2024 3:34pm October 03, 2024 3:34pm 30.5 Immature Granuloc yte # (Auto) October 03, 2024 3:34pm October 03, 2024 3:34pm 0.01 10 3/uL 0.00-0.03 Urine Squamous Epitheli al Cells October 03, 2024 4:46pm October 03, 2024 4:46pm RARE #/LPF NONE/RARE Urine Ketones October 03, 2024 4:46pm NEGATIVE mg/dL NEGATIVE Urine Color November 16, 2024 5:00pm LT. YELLOW YELLOW BUN/Crea tinine Ratio November 16, 2024 5:14pm November 16, 2024 5:14pm 20.5 Immature Granuloc yte # (Auto) November 16, 2024 5:14pm November 16, 2024 5:14pm 0.04 10 3/uL Above high normal 0.00-0.03 Blood Urea Nitrogen October 03, 2024 3:34pm October 03, 2024 3:34pm 25.0 mg/dL Above high normal 7.0-18.0 Immature Granuloc yte % (Auto) October 03, 2024 3:34pm October 03, 2024 3:34pm 0.2 % 0.0-0.5 Urine WBC October 03, 2024 4:46pm October 03, 2024 4:46pm 5-10 #/HPF Abnormal (applies to non-numeric results) NONE SEEN Urine Leukocyt e Esterase October 03, 2024 4:46pm SMALL Abnormal (applies to non-numeric results) NEGATIVE Urine Glucose (UA) November 16, 2024 5:00pm NEGATIVE mg/dL NEGATIVE Blood Urea Nitrogen November 16, 2024 5:14pm November 16, 2024 5:14pm 15.0 mg/dL 7.0-18.0 Immature Granuloc yte % (Auto) November 16, 2024 5:14pm November 16, 2024 5:14pm 0.4 % 0.0-0.5 Calcium Level October 03, 2024 3:34pm October 03, 2024 3:34pm 9.5 mg/dL 8.5-10.1 Lymphocy evon # (Auto) October 03, 2024 3:34pm October 03, 2024 3:34pm 1.4 10 3/uL 1.2-3.8 Urine Nitrite October 03, 2024 4:46pm NEGATIVE NEGATIVE Urine Ketones November 16, 2024 5:00pm NEGATIVE mg/dL NEGATIVE Calcium Level November 16, 2024 5:14pm November 16, 2024 5:14pm 9.6 mg/dL 8.5-10.1 Lymphocy evon # (Auto) November 16, 2024 5:14pm November 16, 2024 5:14pm 1.1 10 3/uL Below low normal 1.2-3.8 Chloride Level October 03, 2024 3:34pm October 03, 2024 3:34pm 104 mmol/L 98-107 Lymphocy evon (%) (Auto) October 03, 2024 3:34pm October 03, 2024 3:34pm 22.6 % 20.5-60.0 Urine pH October 03, 2024 4:46pm 6.0 5.0-9.0 Urine Leukocyt e Esterase November 16, 2024 5:00pm NEGATIVE NEGATIVE Chloride Level November 16, 2024 5:14pm November 16, 2024 5:14pm 103 mmol/L 98-107 Lymphocy evon (%) (Auto) November 16, 2024 5:14pm November 16, 2024 5:14pm 11.2 % Below low normal 20.5-60.0 Carbon Dioxide Level October 03, 2024 3:34pm October 03, 2024 3:34pm 26.7 mmol/L 21.0-32.0 Mean Corpuscu lar Hemoglob in October 03, 2024 3:34pm October 03, 2024 3:34pm 32.9 pg 26.7-34.0 Urine Protein October 03, 2024 4:46pm NEGATIVE mg/dL NEG/TRACE Urine Mucus November 16, 2024 5:00pm NONE SEEN NONE SEEN Carbon Dioxide Level November 16, 2024 5:14pm November 16, 2024 5:14pm 26.7 mmol/L 21.0-32.0 Mean Corpuscu lar Hemoglob in November 16, 2024 5:14pm November 16, 2024 5:14pm 32.4 pg 26.7-34.0 Creatini ne October 03, 2024 3:34pm October 03, 2024 3:34pm 0.82 mg/dL 0.55-1.02 Mean [facility]cu lar [facility], [facility] 3:34pm October 03, 2024 3:34pm 33.8 g/dL 29.9-35.2 Urine Specific [place] October 03, 2024 4:46pm <=1.005 Abnormal (applies to non-numeric results) 1.005-1.02 5 Urine Nitrite November 16, 2024 5:00pm NEGATIVE NEGATIVE Creatini ne November 16, 2024 5:14pm November 16, 2024 5:14pm 0.73 mg/dL 0.55-1.02 Mean Corpuscu lar Hemoglob in [place] November 16, 2024 5:14pm November 16, 2024 5:14pm 33.1 g/dL 29.9-35.2 Estimate d GFR ( ) October 03, 2024 3:34pm October 03, 2024 3:34pm >60 >=60 mL/min/1.7 3m 2 Mean Corpuscu lar Volume October 03, 2024 3:34pm October 03, 2024 3:34pm 97.3 fL 81.0-99.0 Urine Urobilin ogen October 03, 2024 4:46pm 0.2 EU/dL 0.2-1.0 Urine pH November 16, 2024 5:00pm 6.0 5.0-9.0 Estimate d GFR ( ) November 16, 2024 5:14pm November 16, 2024 5:14pm >60 >=60 mL/min/1.7 3m 2 Mean Corpuscu lar Volume November 16, 2024 5:14pm November 16, 2024 5:14pm 97.9 fL 81.0-99.0 Estimate d GFR (Non-Afr ican Afghan October 03, 2024 3:34pm October 03, 2024 3:34pm >60 >=60 mL/min/1.7 3m 2 Monocyte s # (Auto) October 03, 2024 3:34pm October 03, 2024 3:34pm 0.7 10 3/uL 0.3-0.8 Urine Protein November 16, 2024 5:00pm NEGATIVE mg/dL NEG/TRACE Estimate d GFR (Non-Afr ican Afghan November 16, 2024 5:14pm November 16, 2024 5:14pm >60 >=60 mL/min/1.7 3m 2 Monocyte s # (Auto) November 16, 2024 5:14pm November 16, 2024 5:14pm 0.6 10 3/uL 0.3-0.8 Globulin October 03, 2024 3:34pm October 03, 2024 3:34pm 3.2 g/dL Monocyte s (%) (Auto) October 03, 2024 3:34pm October 03, 2024 3:34pm 12.1 % Above high normal 1.7-12.0 Urine RBC November 16, 2024 5:00pm 2-5 #/HPF Abnormal (applies to non-numeric results) 0-2 Globulin November 16, 2024 5:14pm November 16, 2024 5:14pm 3.8 g/dL Monocyte s (%) (Auto) November 16, 2024 5:14pm November 16, 2024 5:14pm 6.7 % 1.7-12.0 Glucose Level October 03, 2024 3:34pm October 03, 2024 3:34pm 112 mg/dL Above high normal 74-106 Mean Platelet Volume October 03, 2024 3:34pm October 03, 2024 3:34pm 9.6 fL 9.5-13.5 Urine Specific [place] November 16, 2024 5:00pm 1.015 1.005-1.02 5 Glucose Level November 16, 2024 5:14pm November 16, 2024 5:14pm 118 mg/dL Above high normal 74-106 Mean Platelet Volume November 16, 2024 5:14pm November 16, 2024 5:14pm 9.2 fL Below low normal 9.5-13.5 [place] m Level October 03, 2024 3:34pm October 03, 2024 3:34pm 3.8 mmol/L 3.5-5.1 Neutroph ils # (Auto) October 03, 2024 3:34pm October 03, 2024 3:34pm 3.9 10 3/uL 1.4-6.5 Urine Squamous Epitheli al Cells November 16, 2024 5:00pm RARE #/LPF NONE/RARE [place] m Level November 16, 2024 5:14pm November 16, 2024 5:14pm 4.4 mmol/L 3.5-5.1 Neutroph ils # (Auto) November 16, 2024 5:14pm November 16, 2024 5:14pm 7.6 10 3/uL Above high normal 1.4-6.5 Sodium Level October 03, 2024 3:34pm October 03, 2024 3:34pm 140 mmol/L 136-145 Neutroph ils (%) (Auto) October 03, 2024 3:34pm October 03, 2024 3:34pm 63.5 % 43.0-75.0 Urine Urobilin ogen November 16, 2024 5:00pm 0.2 EU/dL 0.2-1.0 Sodium Level November 16, 2024 5:14pm November 16, 2024 5:14pm 140 mmol/L 136-145 Neutroph ils (%) (Auto) November 16, 2024 5:14pm November 16, 2024 5:14pm 81.4 % Above high normal 43.0-75.0 Total Bilirubi n October 03, 2024 3:34pm October 03, 2024 3:34pm 0.4 mg/dL 0.2-1.0 Platelet Count October 03, 2024 3:34pm October 03, 2024 3:34pm 250 10 3/uL 150-450 Urine WBC November 16, 2024 5:00pm 0-2 #/HPF Abnormal (applies to non-numeric results) NONE SEEN Total Bilirubi n November 16, 2024 5:14pm November 16, 2024 5:14pm 0.5 mg/dL 0.2-1.0 Platelet Count November 16, 2024 5:14pm November 16, 2024 5:14pm 277 10 3/uL 150-450 Total Protein October 03, 2024 3:34pm October 03, 2024 3:34pm 6.7 g/dL 6.4-8.2 Red Blood Count October 03, 2024 3:34pm October 03, 2024 3:34pm 4.04 10 6/uL Below low normal 4.20-5.40 Total Protein November 16, 2024 5:14pm November 16, 2024 5:14pm 7.4 g/dL 6.4-8.2 Red Blood Count November 16, 2024 5:14pm November 16, 2024 5:14pm 4.26 10 6/uL 4.20-5.40 Red Cell Distribu tion Width October 03, 2024 3:34pm October 03, 2024 3:34pm 13.3 % 11.0-15.0 Red Cell Distribu tion Width November 16, 2024 5:14pm November 16, 2024 5:14pm 13.9 % 11.0-15.0 Correcte d White Blood Count October 03, 2024 3:34pm October 03, 2024 3:34pm 6.1 10 3/uL 4.0-11.0 Correcte d White Blood Count November 16, 2024 5:14pm November 16, 2024 5:14pm 9.3 10 3/uL 4.0-11.0 Correcte d White Blood Count November 22, 2024 6:22pm November 22, 2024 6:37pm 7.5 10*3/uL 3.8-11.[address] [facility] [id number] [address] [place] [address]751 Uncorrec kristi WBC Count November 22, 2024 6:22pm November 22, 2024 6:37pm 7.5 10*3/uL 3.8-11.6 [facility] [id number] [address] [facility] [address]50 Red Blood Count November 22, 2024 6:22pm November 22, 2024 6:37pm 4.11 10*6/uL 3.60-5.00 [facility] [id number] [address] [place] [address] 93838 Hemoglob in November 22, 2024 6:22pm November 22, 2024 6:37pm 13.5 g/dL 11.8-15.4 [facility] [id number] [address] [facility] 53267 Hematocr it November 22, 2024 6:22pm November 22, 2024 6:37pm 39.0 % 34.0-46.4 [facility] [id number] [address] [facility] 97769 Mean Corpuscu lar Volume November 22, 2024 6:22pm November 22, 2024 6:37pm 94.9 fL 80-100 [facility] [id number] [address] [facility] 62741 Mean Corpuscu lar Hemoglob in November 22, 2024 6:22pm November 22, 2024 6:37pm 32.8 pg 24.7-34.3 [facility] [id number] [address] [facility] 62718 Mean Corpuscu lar Hemoglob in Concent November 22, 2024 6:22pm November 22, 2024 6:37pm 34.6 g/dL 32.0-35.0 [facility] [id number] [address] [facility] 93698 Red Cell Distribu tion Width November 22, 2024 6:22pm November 22, 2024 6:37pm 13.5 % 11.9-15.3 [facility] [id number] [address] [facility] 59378 Platelet Count November 22, 2024 6:22pm November 22, 2024 6:37pm 290 10*3/uL 150-450 [facility] [id number] [address] [place] [address] 69111 Mean Platelet Volume November 22, 2024 6:22pm November 22, 2024 6:37pm 7.4 fL 6.3-10.7 [facility] [id number] [address] [facility] 09842 Monocyte Distribu tion Width November 22, 2024 6:22pm November 22, 2024 6:37pm 20.64 % Above high normal 0.00-20.00 For adults in ED, MDW > 20.0 may be associated with a higher risk of sepsis during the first 12 hrs of hospital admission [facility] [id number] [address] [facility] 43842 Neutroph ils (%) (Auto) November 22, 2024 6:22pm November 22, 2024 6:37pm 63.5 % . [facility] [id number] [address] [place] [address] 83300 Lymphocy evon (%) (Auto) November 22, 2024 6:22pm November 22, 2024 6:37pm 20.6 % . [facility] [id number] [address] [facility] 21978 Monocyte s (%) (Auto) November 22, 2024 6:22pm November 22, 2024 6:37pm 13.9 % . [facility] [id number] [address] [place] [address] 47250 Eosinoph ils (%) (Auto) November 22, 2024 6:22pm November 22, 2024 6:37pm 0.9 % . [facility] [id number] [address] [place] [address] 63165 Basophil s (%) (Auto) November 22, 2024 6:22pm November 22, 2024 6:37pm 1.1 % . [facility] [id number] [address] [facility] 51292 Nucleate d RBC Relative Count (auto) November 22, 2024 6:22pm November 22, 2024 6:37pm 0.1 /100{WBC} 0-0.5 [facility] [id number] [address] [place] [address] 74042 Neutroph ils # (Auto) November 22, 2024 6:22pm November 22, 2024 6:37pm 4.8 10*3/uL 1.8-7.7 [facility] [id number] [address] [facility] 32452 Lymphocy evon # (Auto) November 22, 2024 6:22pm November 22, 2024 6:37pm 1.5 10*3/uL 1.00-4.8 [facility] [id number] [address] [place] [id number] Monocyte s # (Auto) November 22, 2024 6:22pm November 22, 2024 6:37pm 1.0 10*3/uL Above high normal 0.0-0.8 [facility] [id number] [address] [facility] 23396 Eosinoph ils # (Auto) November 22, 2024 6:22pm November 22, 2024 6:37pm 0.1 10*3/uL 0.0-0.45 [facility] [id number] [address] [facility] 96060 Basophil s # (Auto) November 22, 2024 6:22pm November 22, 2024 6:37pm 0.1 10*3/uL 0.0-0.2 [facility] [id number] [address] [facility] 49266 Urine Color November 22, 2024 8:09pm November 22, 2024 8:17pm Colorless Yellow [facility] [id number] [address] [facility] 29881 Urine Appearan ce November 22, 2024 8:09pm November 22, 2024 8:17pm Clear Clear [facility] [id number] [address] [facility] 64654 Urine Specific [place] November 22, 2024 8:09pm November 22, 2024 8:17pm 1.005 1.001-1.03 0 [facility] [id number] [address] [place] [address] 40663 Urine pH November 22, 2024 8:09pm November 22, 2024 8:17pm 5.5 5.0-9.0 [facility] [id number] [address] [place] [id number] Urine Leukocyt e Esterase November 22, 2024 8:09pm November 22, 2024 8:17pm Negative Negative [facility] [id number] [address] [facility] 06843 Urine Nitrite November 22, 2024 8:09pm November 22, 2024 8:17pm Negative Negative [facility] [id number] [address] [facility] 70281 Urine Protein November 22, 2024 8:09pm November 22, 2024 8:17pm Negative mg/dL Negative [facility] [id number] [address] [facility] 24245 Urine Glucose (UA) November 22, 2024 8:09pm November 22, 2024 8:17pm Normal mg/dL Normal [facility] [id number] [address] [facility] 75669 Urine Ketones November 22, 2024 8:09pm November 22, 2024 8:17pm Negative Negative [facility] [id number] [address] [facility] 67953 Urine Urobilin ogen November 22, 2024 8:09pm November 22, 2024 8:17pm Normal mg/dL Normal [facility] [id number] [address] [facility] 08817 Urine Bilirubi n November 22, 2024 8:09pm November 22, 2024 8:17pm Negative Negative [facility] [id number] [address] [facility] 56878 Urine Occult Blood November 22, 2024 8:09pm November 22, 2024 8:17pm Negative Negative [facility] [id number] [address] [facility] 17589 Glucose Level November 22, 2024 6:22pm November 22, 2024 7:02pm 97 mg/dL 70-100 ADA recommende d reference rangeRando m Glucose Reference Range is dependent on time and content of last meal. Glucose of more than 200 mg/dL in a nonstresse d, ambulatory subject supports the diagnosis of Diabetes Mellitus. [facility] [id number] [address] [facility] 15834 Blood Urea Nitrogen November 22, 2024 6:22pm November 22, 2024 7:02pm 10 mg/dL 7-25 [facility] [id number] [address] [facility] 65758 Creatini ne November 22, 2024 6:22pm November 22, 2024 7:02pm 0.89 mg/dL 0.60-1.20 [facility] [id number] [address] [facility] 36922 Estimate d GFR (CKD-EPI ) November 22, 2024 6:22pm November 22, 2024 7:02pm > 60.0 mL/Min [facility] [id number] [address] [facility] 13542 Sodium Level November 22, 2024 6:22pm November 22, 2024 7:02pm 134 mmol/L Below low normal 136-145 [facility] [id number] [address] [place] 9332370 Potassiu m Level November 22, 2024 6:22pm November 22, 2024 7:02pm 3.3 mmol/L Below low normal 3.5-5.1 [facility] [id number] [address] [place] 9332370 Chloride Level November 22, 2024 6:22pm November 22, 2024 7:02pm 102 mmol/L 98-107 [facility] [id number] [address] [place], [place] [address] Carbon Dioxide Level November 22, 2024 6:22pm November 22, 2024 7:02pm 24.3 mmol/L 21.0-31.0 [facility] [id number] [address] [facility] 90066 Anion Gap November 22, 2024 6:22pm November 22, 2024 7:02pm 11.0 mEq/L 6.0-15.0 [facility] [id number] [address] [place] [id number] Calcium Level November 22, 2024 6:22pm November 22, 2024 7:02pm 9.2 mg/dL 8.6-10.3 [facility] [id number] [address] [place], [place] [address] Total Protein November 22, 2024 6:22pm November 22, 2024 7:02pm 6.7 g/dL 6.4-8.9 [facility] [id number] [address] [place] [id number] Albumin November 22, 2024 6:22pm November 22, 2024 7:02pm 4.0 g/dL 3.5-5.7 [facility] [id number] [address] [facility] 53725 Globulin November 22, 2024 6:22pm November 22, 2024 7:02pm 2.7 g/dL [facility] [id number] [address] [place] [address] 60322 Albumin/ Globulin Ratio November 22, 2024 6:22pm November 22, 2024 7:02pm 1.5 [facility] [id number] [address] [place] [address] 04738 Total Bilirubi n November 22, 2024 6:22pm November 22, 2024 7:02pm 0.4 mg/dL 0.3-1.0 [facility] [id number] [address] [place] [address] 05848 Direct Bilirubi n November 22, 2024 6:22pm November 22, 2024 7:02pm 0.10 mg/dL 0.03-0.18 [facility] [id number] [address] [place] [address] 86326 Indirect Bilirubi n November 22, 2024 6:22pm November 22, 2024 7:02pm 0.3 mg/dL [facility] [id number] [address] [place] [address] 92393 Aspartat e Amino Transf (AST/SGO T) November 22, 2024 6:22pm November 22, 2024 7:02pm 19 U/L 13-39 [facility] [id number] [address] [place], [place] [address] Alanine Aminotra nsferase (ALT/SGP T) November 22, 2024 6:22pm November 22, 2024 7:02pm 21 U/L 7-52 [facility] [id number] [address] [place], [place] [address] Alkaline Phosphat ase November 22, 2024 6:22pm November 22, 2024 7:02pm 147 U/L Above high normal 34-104 [facility] [id number] [address] [place] [address] 60506 Lipase November 22, 2024 6:22pm November 22, 2024 7:02pm 169.0 U/L Above high normal 11.0-82.0 [facility] [id number] [address] [place], [place] [address] Pharmacy Creatini elle case (Chem November 22, 2024 6:22pm November 22, 2024 7:02pm 40.32 [facility] [id number] [address] [place] [address] 82106 Microbiology Results Procedure Source Result Collection Date/Time Result Date/Time Result Comment Performing Site Urine Culture Urine Escherichia coli (MDRO) October 03, 2024 4:46pm October 05, 2024 3:06pm [facility] [id number] [address] [place], [place] [address] Diagnostic Imaging Reports Author Endy Crowley [facility] Authored November 22, 2024 7: 05pm Report Dictated Date/Time Dictated By Status Radiology Report November 22, 2024 7:05pm Endy ashraf , II completed [facility] [place] [id number] XRay Report Signed Patient: Genny Barboza MR#: [id number] : 1940 Acct:[id number] Age/Sex: 84 / F ADM Date: 5 Loc: ER Room: Type: [facility] ER Attending Dr: Copies to: [facility] [...] Crowley M.D. 11/22/2024 7:06 PM Dictation Location: [facility]--17 Transcribed By: CODY 11/22/241905 Dictated By: Endy Crowley II, MD 11/22/241904 Signed By: <Electronically signed by Endy Crowley II, MD in [place]> 11/22/241905 Vital Signs Vital Reading Result Reference Range Collection Date/Time Height 61 [in_i] November 04 2:04pm Weight 64.58 kg November 04 2:04pm Heart Rate 71 /min 60-100 November 04 2:04pm Respiratory rate 12 /min -October 2:04pm BP Systolic 112 mm[Hg] 100-140 November 04 2:04pm BP Diastolic 71 mm[Hg] 60-100 November 04 2:04pm BMI (Body Mass Index) 26.9 kg/m2 November 04, 2024 2:04pm Height 61 [in_i] November 16 3:15pm Weight 64.92 kg November 16 3:15pm Heart Rate 78 /min 60-100 November 16 3:15pm Respiratory rate 12 /min -October 3:15pm BP Systolic 134 mm[Hg] 100-140 November 16 3:15pm BP Diastolic 81 mm[Hg] 60-100 November 16 3:15pm BMI (Body Mass Index) 27.0 kg/m2 November 16, 2024 3:15pm Height 61 [in_i] November 19 10:05am Weight 64.20 kg November 19 10:05am BMI (Body Mass Index) 26.7 kg/m2 November 19, 2024 10:05am Height 61 [in_i] November 22 11:10pm Weight 63.80 kg November 23, 2024 4:26am Body Temperature 98.0 [degF] 97.6-99.0 November 232024 9:00am Heart Rate 71 /min 60-100 November 23, 2024 12:00pm Respiratory rate 18 /min 12-November 232024 12:00pm Oxygen saturation by Pulse oximetry 100 % 95-100 November 23, 2024 12:00pm BP Systolic 126 mm[Hg] 100-140 November 23, 2024 12:00pm BP Diastolic 78 mm[Hg] 60-100 November 23, 2024 12:00pm Height 61 [in_i] December 01, 2024 1:27pm Weight 62.59 kg December 01, 2024 1:27pm Heart Rate 64 /min 60-100 December 01, 2024 1:27pm BP Systolic 111 mm[Hg] 100-140 December 01, 2024 1:27pm BP Diastolic 72 mm[Hg] 60-100 December 01, 2024 1:27pm BMI (Body Mass Index) 26.0 kg/m2 2024 1:27pm Height 61 [in_i] December 03, 2024 11:45am Weight 63.55 kg December 03, 2024 11:45am Heart Rate 61 /min 60-100 December 03, 2024 11:45am Respiratory rate 12 /min -November 232024 11:45am BP Systolic 129 mm[Hg] 100-140 December 03, 2024 11:45am BP Diastolic 78 mm[Hg] 60-100 December 03, 2024 11:45am BMI (Body Mass Index) 26.4 kg/m2 2024 11:45am Weight 65.00 kg December 29 11:27am Advance Directives Advance Directive Response Recorded Date/ Time Advance Directives No August 18 9:23am Insurance Providers Guarantor Genny Barboza Address [address] [place] [phone] Contact Info. Home Phone: Payer Policy Id Subscriber's Name Subscriber Id Effectiv e Date Expiration Date Medicare [id number] Genny Barboza [id number] [facility] Health Claims [id number] Genny Barboza [id number] Encounters Encounter Location(s) Arrival/Admit Date Discharge /Depart Date Provider(s) Non-patient / Non-visit -[facility] October 03, 2024 3:34pm Laurie Mills MD Departed Referred -[facility] October 03, 2024 4:46pm October 03, 2024 4:47pm Laurie Mills MD Departed Physician/Provi theo Office Visit -[facility] November 04, 2024 1:56pm November 04, 2024 2:44pm Branden Du DO Non-patient / Non-visit -[facility] November 09, 2024 11:45am Maura Perez CMA Departed Physician/Provi theo Office Visit -[facility] November 16, 2024 2:40pm November 16, 2024 3:42pm Branden Du DO Departed Physician/Provi theo Office Visit -[facility] November 18, 2024 11:26am November 18, 2024 12:16pm Justus Damon DO Departed Physician/Provi theo Office Visit -[facility] November 19, 2024 9:58am November 19, 2024 11:16am Roxane Granda APRN Discharged Inpatient -[facility] November 22, 2024 10:23pm November 23, 2024 2:59pm Mendez Lambert MD Non-patient / Non-visit -[facility] November 26, 2024 10:33am Maura Perez CMA Departed Physician/Provi theo Office Visit -[facility] December 01, 2024 1:22pm December 01, 2024 2:05pm Shmuel Martinez APRN Departed Physician/Provi theo Office Visit -[facility] December 03, 2024 11:19am December 03, 2024 12:47pm Branden Du DO Departed Physician/Provi theo Office Visit -[facility] [place] December 14, 2024 11:16am December 14, 2024 12:18pm Justus Damon DO Non-patient / Non-visit -[facility] December 18, 2024 12:31pm Shannon Chan MD Departed Physician/Provi theo Office Visit -[facility] December 29, 2024 11:25am December 29, 2024 12:13pm Roxane Granda APRN Recent Diagnosis Onset Date Admit Date Cervical spondylosis with radiculopathy Unknown November 04, 2024 1:56pm Neck pain Unknown November 04 1:56pm Abdominal pain Unknown November 16 2:40pm Abdominal distention Unknown October 2:40pm Compression fx, lumbar spine Unknown Oct 2:40pm Internal derangement of right shoulder Unknown November 18, 2024 11:26am Right shoulder strain Unknown October 11:26am Compression fracture of L1 lumbar vertebra Unkno wn November 19, 2024 9:58am Right lumbar radiculopathy Unknown 2024 9:58am Right shoulder strain Unknown October 9:58am Cervical radiculopathy Unknown November 192024 9:58am Primary hypertension Unknown October 10:23pm Acute hypokalemia Unknown November 22, 2 025 10:23pm Constipation Unknown November 22 10:23pm History of colon cancer Unknown October 252024 10:23pm Alternating constipation and diarrhea Unknown December 01, 2024 1:22pm Abdominal pain Unknown December 03, 2024 11:19am ASHD (arteriosclerotic heart disease) Unknown December 03, 2024 11:19am Cervical spondylosis Unknown November 232024 11:19am Compression fracture of L1 lumbar vertebra Unkno wn December 03, 2024 11:19am History of fragility fracture Unknown Se ptember 2024 11:19am IBS (irritable bowel syndrome) Unknown S epteer 2024 11:19am Internal derangement of right shoulder Unknown December 03, 2024 11:19am Lung nodule Unknown December 03, 2024 11:19am Primary hypertension Unknown November 232024 11:19am Internal derangement of right shoulder Unknown December 14, 2024 11:16am Right shoulder strain Unknown December 14, 2024 11:16am Compression fracture of L1 lumbar vertebra Unkno wn December 29, 2024 11:25am Compression fracture of T11 vertebra Unknown December 29, 2024 11:25am Functional Status Observation Response Date Recorded Dressing Patient at Baseline November 2:59pm Eating Patient at Baseline November 2:59pm Bathing Patient at Baseline November 2:59pm Disability Status Patient at Baseline November 23, 2024 2:59pm Mental Status Observation Response Date Recorded Cognitive Status Patient at Baseline November 232024 2:59pm Cognitive/Mental Status Assessments Assessments Diagnosis Onset Date Resolution Status Admit Date Cervical spondylosis with radiculopathy deleted November 04 1:56pm Neck pain deleted November 04, 2 025 1:56pm Abdominal pain acute October 2:40pm Abdominal distention deleted 2024 2:40pm Compression fx, lumbar spine deleted November 16, 2024 2:40pm Internal derangement of righ t shoulder acute November 18 11:26am Right shoulder strain acute Oct 11:26am Compression fracture of L1 lumbar vertebra acute November 19 9:58am Right lumbar radiculopathy acute November 19, 2024 9:58am Right shoulder strain acute Oct 9:58am Cervical radiculopathy deleted [facility] 2024 9:58am Primary hypertension acute 2024 10:23pm Acute hypokalemia resolved November 22, 2024 10:23pm Constipation resolved November 22, 2024 10:23pm History of colon cancer resolved A ugust 2024 10:23pm Alternating constipation and diarrhea acute December 01, 2 025 1:22pm Abdominal pain acute December [...] nodule acute November 11:19am Primary hypertension acute Nov 11:19am Internal derangement of righ t shoulder acute December 14, 2024 11:16am Right shoulder strain acute Sep 2024 11:16am Compression fracture of L1 lumbar vertebra acute December 29 11:25am Compression fracture of T11 vertebra acute December 29 11:25am Plan of Treatment Author Branden Du [facility] Authored November 04, 2024 2: 40pm ROM exercises, ice/heat and Tylenol Instructed to try Lidocaine crm or patches Heat/ice and Tylenol tid Initiate Prednisone and taper over 6 days Initiate Zanaflex q HS Refer to pT Discussed referral to pain management XR cervical spine: facet joint degenerative changes w/ 3mm subluxation of C4 on C5 along w/ moderate disc space narrowing C3-4 - 09/08/24 MRI cervical spine: C3-4 mod foraminal stenosis, C4-5 mod foraminal and canal stenosis, C5-6 severe right foraminal stenosis, C7-T1 moderate B/L foraminal narrowing - 10/2024 Refer to PT Author Roxane Granda [facility] Authored November 19, 2024 11 :01am Patient is a pleasant 84-yea r-old female presents today with several complaints. Apparently she sustained a fall backwards while gardening landing on her back. After her fall she started experiencing significant amount of discomfort in the right shoulder and lower back. She was seen in the emergency room and had a follow-up with orthopedic surgery Dr. Damon for bilateral shoulder pain. She did also undergo an MRI of the cervical spine to rule out radiculopathy that would be causing the right shoulder pain. I did independently review the imaging. She does have some arthritic/degenerative changes within the cervical spine, no high-grade central stenosis. Some foraminal narrowing C3-C6, more so on the left. I am not convinced that the shoulder pain is coming from her neck, especially given the fact that symptoms are much worse with range of motion; she also has pain to palpation of the entire right upper extremity. Will follow-up orthopedic surgery recommendations in regards to this. May may consider pain management down the line if necessary. In regards to her back, I did review the lumbar CT from earlier this month. This does demonstrate a superior endplate fracture at L1, with 15 to 20% height loss. She does have some right-sided radiculopathy fall. I did order a lumbar spine. Her symptoms. She needs a DEXA scan as well. Patient will be prescribed a TLSO brace to help with painful symptoms and to expedite the healing. I will see him back in the office when the imaging is completed. Author Branden Du [facility] Authored November 16, 2024 10 :33pm Diffuse abdominal pain, whic h is moderate to severe in intensity. Tender to light touch along w/ mild distention and decreased ability to eat. She denies N/V or hematemesis Due to recent trauma and severity of her abdominal pain, I have recommended referral to ER for urgen CT abdomen - r/o perforation, contusion/hemorrhage liver, renal or spleen, acute pancreatitis, diverticulitis or perforated bowel MDM required for urgent office visit for severe abdominal pain Examination completed w/ decision to refer to ER for urgent testing/imaging Informed of CT findings Palpable tenderness at site Instructed to use heat/ice and gentle stretching Monitor for now Referral for vertebroplasty? Concerned for peritonitis, ileus or constipation Due to severity of pain, recommend referral for CT abdomen Author Shmuel Martinez [facility] Authored December 01, 2024 2:41pm - Recommend MiraLAX titratio n to help facilitate 1 appropriate BM daily. - Recommend limiting toilet time to 5 to 10 minutes max. - Recommend avoidance of straining during defecation. -Recommend 6 to 812 ounce glasses of water a day to help facilitate adequate hydration. - Will order KUB for further evaluation of stool burden. - Follow-up office visit in 6 weeks for constipation. Author Justus Damon [facility] Authored December 14, 2024 12:51pm Genny returns with right shou lder injury after fall. At this juncture we have discussed the findings and diagnosis as well as personally reviewed appropriate imaging and performed interpretation of related testing and examination with the patient in office today. Prior medical notes from [facility] and history have been reviewed. She is enugt-dqbl-chmvxgdw had no prior right shoulder issues. On her exam today she does have some rotator cuff weakness more supra/infraspinatus. She did not do physical therapy due to lack of her back brace but she does have this now. I continue to recommend a course of physical therapy which she is agreeable to. Continue advancing activities as tolerated. If she continues to improve no further follow-up needed The patient has been involved in our cooperative treatment plan and agrees to move forward with treatment at this time. Patient given order for physical therapy. Encouraged patient to work on strength and motion. Patient can follow up as needed. Note scribed by TAMIR Jackson, reviewed and amended by myself Justus Damon D.O. Author Branden Du [facility] Authored December 03, 2024 1:18pm Diffuse abdominal pain, whic h is moderate to severe in intensity. Tender to light touch along w/ mild distention and decreased ability to eat. She denies N/V or hematemesis She was evaluated in the ER and has seen GI in consultation. CT w/o abnormal findings XR w/ increased stool burden Instructed to stop Dicyclomine and take Miralax daily Informed of CT findings Palpable tenderness at site Instructed to use heat/ice and gentle stretching Completed referral to Neurosurgery, ordered bracing. Reassured that she will heal and eventually have resolution of pain Needs DEXA - fragility fracture gives her Osteoporosis despite T score - Ca and Vit D supplementation w/ weight bearing exercises - will discuss bisphosphonate vs prolia treatment after DEXA ROM exercises, heat/ice and Tylenol She denies any radicular pain, N/T or weakness Instructed on shoulder exercises to increase ROM. Instructed to use ice/heat and Tylenol Referred by Orthopedics to PT Instructed on high fiber diet and push fluids. She is instructed to continue Miralax to have BM daily. f/u GI This patient is stable without activity related chest pain, dyspnea or lightheadedness. I instructed them to continue exercise at least 3x weekly and consume a low salt, low fat, high fiber diet. I instructed them to continue secondary prevention measures in reducing risks for recurrent events. Continue ASA and Atorvastatin without interruption Continue surveillance. She denies CP, unexplained dyspnea or hemoptysis CT: 1.7cm nodule RLL - 03/2023 PET/CT: no FDG avid nodules - 04/2023 CT: 1.9cm nodule RLL - 06/2023 CT: 2.6cm RLL mass - 02/2024 Referred to Pulmonary w/ decision to continue to monitor - low risk for malignancy I have instructed this patient to consume a healthy, low-fat, low-salt diet. I have also encouraged them to continue exercise with weight loss to achieve/maintain a BMI < 30. I have instructed this patient on the correct procedure for obtaining home BP measurements: - rest for 5 minutes w/o talking. - positioned w/ feet on floor and arms supported. - average best 2/3 readings w/ goal < 135/85. - update office w/ home readings in 2 weeks. Continue Losartan and Amlodipine without interruption L1 compression fracture Conservative treatment recommended. Author Justus Damon [facility] Authored November 18, 2024 12 :17pm Genny presents with right radha ulder injury after fall. At this juncture we have discussed the findings and diagnosis as well as personally reviewed appropriate imaging and performed interpretation of related testing and examination with the patient in office today. Prior medical notes from [facility] and history have been reviewed. She is lphoy-qefq-ipzneevb had no prior right shoulder issues. On her exam today she does have some rotator cuff weakness more supra/infraspinatus. Discussed conservative treatment for the time being. Will get her going in physical therapy continue Tylenol for pain. Will check back in 3 weeks to see how she is improving. Consider MRI for internal derangement if ongoing issues The patient has been involved in our cooperative treatment plan and agrees to move forward with treatment at this time. Radiographs reviewed in detail with patient. Based on exam, I have concern for a rotator cuff tear. We will order physical therapy in hopes condition will improve with conservative treatment. If no improvement with physical therapy, we will order an MRI to further assess for a possible cuff tear. Future Tests Future scheduled test information is unavailable Pending Tests Test Name Ordered Date Scheduled Date MR lumbar spine wo/w con November 19, 2024 10:49 am XR thoracic spine 3V* December 29, 2024 12:11pm XR dexa axial skeleton November 18, 2024 12:08pm Future Visits Future appointment information is unavailable Referrals to Other Providers Reason for Referral Referral Start Date Provider Provider Contact Information Provider Address Office is closed for the holiday. Please call tomorrow on 11/24/24 to schedule a post hospital follow up apt within the next seven days. Branden Du , DO Work Phone: [phone] [facility] [facility] [address] Future Procedures Procedure Name Ordered Date Scheduled Date Admit Status Order November 22, 2024 10:23pm Aug ust 2024 10:23pm Discharge Order November 23, 2024 1:23pm Septe mber 2024 1:23pm XR KUB December 01, 2024 2:05pm Future Medications Future medication information is unavailable Patient Instructions Instruction Admit Date Know your Meds November 22, 2024 10 :23pm Goals Acute Goals Author Authored Date Exhibit optimal tissue perfusion * Exhibits adequate oxygenation and ventilation * Exhibits adequate cardiac output * Regains stable cardiac rhythm * Maintains optimal activity level * Maintains balanced intake and output [facility] November 23, 2024 2:59pm Maintain/increase activity levels * Understands factors that may lead to activity intolerance * Helps perform self care activities * Maintains maximum range of motion * Increase/regain muscle mass and strength * Maintains VS WNL during activity * Maintain intact skin integrity Updated: 05/07/2022 [facility] November 23, 2024 2:59pm Preferences Type Detail Treatment Intervention Code Status: Full Code
--- NOTE | 2025-01-07 12:40 | CT_ITS ---
The [address] [address] Patient Name: EVER BREWER MRN: [id number] date: 1940 Sex: F Assigned Patient Location: CT Current Patient Location: [facility] Accession/Order Number: [id number] Exam Date: 01/07/2025 12:52 Report Date: 01/07/2025 16:00 At the request of: NON-STAFF PHYSICIAN Procedure: CT chest wo con CT CHEST WITHOUT IV CONTRAST: CLINICAL HISTORY: Lung Nodule COMPARISON: CT chest 09/08/2024 as well as others dating back to 08/11/2021 TECHNIQUE: Spiral images were obtained through the chest without IV contrast. This CT exam was performed using one or more following dose reduction techniques: Automated exposure control, adjustment of the mA and/or kV according to patient size, or use of iterative reconstruction technique. FINDINGS: Mediastinum:Thoracic aorta appears normal in caliber. Pulmonary trunk appears nondilated. No pleural effusion or lymphadenopathy. The esophagus is grossly unremarkable. Lungs:Emphysema. Consolidative changes involving the basilar segments of the right lower lobe which appears to represent the previously nodule on the most recent prior study. Bibasilar atelectasis/scarring. No pneumothorax or pleural effusion. Abd:Stable hypodense lesion involving the right lobe the liver when compared to the most recent prior study. Stable indeterminate lesion left kidney. This is too small for accurate characterization. Soft tissues/Bones: No acute findings. Osseous structures demonstrate degenerative change. Subacute to chronic appearing compression deformities involving T11 and L1. These are new since 2024. CT/CT chest wo con IMPRESSION: The previously identified nodule involving the right lower lobe appears to represent an area of consolidation on today's study possibly sequela of aspiration/infectious process. Continued CT follow-up is suggested to ensure resolution. Subacute to chronic appearing compression deformities involving T11 and L1 new since 09/08/2024. If acuity needs to be assessed, MRI is suggested. Impression dictated by: Reginaldo Rivas Jr., D.O. 01/07/2025 4:00 PM Dictation Location: [place] [address] Electronically authenticated by: [id number] Y Date: 01/07/2025 16:00
--- OUTSIDE RECORDS SUMMARY | 2025-01-07 12:43 | XMS_ITS | CCD ---
Author Organization [facility] Care Team Providers Care Research Analyst Name Role Phone Unavailable Primary Care Provider [...] Unavailable ELENA HASSAN Attending Unavailable DO Branden uD Primary Care Provider DO Branden Du Attending [...] Attending Provider Vanessa Dave APRN Attending Provider [phone] Branden Du DO Attending Provider Maldonado LOZANO, Sobia Stanley Attending Provider Laurie Mills MD Attending Provider [phone] Branden Du DO Primary Care Provider VANESSA [...] Care Provider Branden Du DO Attending Provider [phone] Justus Damon DO Attending Provider [phone] Roxane Granda APRN Attending Provider Trinity Obrien MD Emergency Provider Benjamin Elias MD Admit Provider Benjamin Elias MD Attending Provider Mendez Lambert MD Attending Provider [phone] Laurie Mills Attending Unavailable Laurie Mills Admitting Unavailable Benjamin Elias Admitting Unavailable Branden Du Primary Care Unavailable Mendez Lambert Attending Unavailable Shmuel Martinez APRN Attending Provider Branden Du DO Primary Care Provider [phone] Dustin LOZANO, Shannon Attending Provider Unavailab le Allergies Allergy Classification Reported Allergen(s) Allergy Type Date of Onset Reaction(s) Facility (2 sources) Penicillins; Translations: [PENICILLINS] Drug allergy (disorder) 4 [facility] Repository (12 sources) Substance with penicillin structure and antibacterial mechanism of action (substance) Drug allergy 4 Unknown [facility] Other (2 sources) Penicillins Propensity to adverse reactions 4 Unknown [facility] (3 sources) Penicillins Propensity to adverse reactions 4 Unknown [facility] (1 source) Penicillins Drug allergy (disorder) 5 [facility] Repository Medications Current Medications Medication [...] Complies with drug therapy polyethylene glycol 3350 [id number] mg powder for oral solution (8 sources) [...] Coronary arteriosclerosis; Translations: [Atherosclerotic heart disease of [place] coronary artery without angina pectoris] Onset: 11-07-2023 [...] Nausea Episodic Other aftercare (1 source) Other assisted (current) drug therapy; Translations: [OTH [facility] CURRENT DRUG THERAPY] Onset: 05-22-2022 Episodic Other [...] next seven days. Unclassified (5 sources) A [facility] screening has identified you as [...] Four Ways to Beat the Frailty Risk [email or web address]-[email or web address]-gwsxdzkk on/lykq-axjbql-pmrc- gqpk-up-zwwt-the-fra ilty-risk 11-23-2024 Past or Other Problems Problem [...] MDRD (S/P/Bld) [Vol rate/Area] mL/min/{1.73_m2} >=60 mL/min/1.[address] [place] [address] Laboratory - Chemistry and C hemistry - challengeOrdered By: Shannon Chan on 12-18-2024 Creatinine [Mass/Vol] 0.81 mg/dL 0.55-1.02 [facility] GFR/1.73 sq M.predicted MDRD (S/P/Bld) [Vol rate/Area] mL/min/{1.73_m2} >=60 mL/min/1.7 3m 2 [facility] Alanine aminotransferase [En zymatic activity/volume] in Serum or PlasmaOrdered By: Trinity Gurrolageant on 11-22-2024 ALT [Catalytic activity/Vol] 21 U/L 7-52 [facility] Comment on above: Performed By: #### H EPATIC, BMP, CBC, LIPASE #### [facility] [address] Albumin [Mass/volume] in Ser um or Plasma by Bromocresol green (BCG) dye binding methoOrdered By: Trinity Obrien on 11-22-2024 Albumin BCG dye [Mass/Vol] 4.0 g/dL 3.5-5.7 [facility] Alkaline phosphatase [Enzyma tic activity/volume] in Serum or PlasmaOrdered By: Trinity Obrien on 11-22-2024 ALP [Catalytic activity/Vol] 147 U/L High 34-104 [facility] Comment on above: Performed By: #### H EPATIC, BMP, CBC, LIPASE #### [facility] [address] [place] [address] Appearance of UrineOrdered B y: Trinity Micah on 11-22-2024 Appearance (U) Clear Clear [facility] Comment on above: Order Comment: Name Collection Type:: Clean-Voided Midstream Performed By: #### U A #### [facility] [address] [place] [address] Aspartate aminotransferase [ Enzymatic activity/volume] in Serum or PlasmaOrdered By: Trinity Obrien on 11-22-2024 AST [Catalytic activity/Vol] 19 U/L 13-39 [facility] Comment on above: Performed By: #### H EPATIC, BMP, CBC, LIPASE #### [address] Basic Metabolic Panelon 083 Creatinine Clr Calc Pharmacy 40.32 Normal [facility] Comment on above: Performed By: #### H EPATIC, BMP, CBC, LIPASE #### [address] GFR/1.73 sq M.predicted MDRD (S/P/Bld) [Vol rate/Area] mL/min/{1.73_m2} Normal [facility] Comment on above: Performed By: #### H EPATIC, BMP, CBC, LIPASE #### [address] Basophils [#/volume] in Bloo d by Automated countOrdered By: Trinity Obrien on 11-22-2024 Basophils (Bld) [#/Vol] 0.1 10*3/uL 0.0-0.2 [facility] Comment on above: Result Comment: PERF ORMED BY: [place] [address] PATHOLOGIST PROCUREMENT SERVICES MANAGER CANDELARIA JALLOH M.D. Performed By: #### H EPATIC, BMP, CBC, LIPASE #### [address] Basophils/100 leukocytes in Blood by Automated countOrdered By: Trinity Obrien on 11-22-2024 Basophils/100 WBC (Bld) 1.1 % . [facility] Comment on above: Performed By: #### H EPATIC, BMP, CBC, LIPASE #### [address] Bilirubin Test strip Ql (U)O rdered By: Trinity Obrien on 11-22-2024 Bilirubin Ql (U) Negative Negative [facility] Bilirubin.direct [Mass/volum e] in Serum or PlasmaOrdered By: Trinity Obrien on 11-22-2024 Bilirubin.direct [Mass/Vol] 0.10 mg/dL 0.03-0.18 [facility] Bilirubin.total [Mass/volume ] in Serum or PlasmaOrdered By: Trinity Obrien on 11-22-2024 Bilirubin [Mass/Vol] 0.4 mg/dL 0.3-1.0 [facility] Comment on above: Performed By: #### H EPATIC, BMP, CBC, LIPASE #### [address] Calcium [Mass/volume] in Ser um or PlasmaOrdered By: Trinity Obrien on 11-22-2024 Calcium [Mass/Vol] 9.2 mg/dL 8.6-10.3 [facility] Comment on above: Performed By: #### H EPATIC, BMP, CBC, LIPASE #### [address] Carbon dioxide, total [Moles /volume] in Serum or PlasmaOrdered By: Trinity Obrien on 11-22-2024 CO2 [Moles/Vol] 24.3 mmol/L 21.0-31.0 [facility] Comment on above: Performed By: #### H EPATIC, BMP, CBC, LIPASE #### [address] Chloride [Moles/volume] in S carolyne or PlasmaOrdered By: Trinity Obrien on 11-22-2024 Chloride [Moles/Vol] 102 mmol/L 98-107 [facility] Comment on above: Performed By: #### H EPATIC, BMP, CBC, LIPASE #### [address] Color of Urine by AutoOrdere d By: Trinity Obrien on 11-22-2024 Color (U) Colorless Yellow [facility] Comment on above: Order Comment: Name Collection Type:: Clean-Voided Midstream Performed By: #### U A #### [address] Complete Blood Count Auto Di ffon 11-22-2024 Mean Corpuscular HGB Conc 34.6 g/dL Normal 32.0-35.0 [facility] Comment on above: Performed By: #### H EPATIC, BMP, CBC, LIPASE #### [address] Monocytes/100 WBC (Bld) 20.64 % High 0.00-20.00 [facility] Comment on above: Result Comment: For adults in ED, MDW > 20.0 may be associated with a higher risk of sepsis during the first 12 hrs of hospital admission Performed By: #### H EPATIC, BMP, CBC, LIPASE #### [address] NRBC% 0.1 /100{WBC} Normal 0-0.5 [facility] Comment on above: Performed By: #### H EPATIC, BMP, CBC, LIPASE #### [address] White Blood Count 7.5 [CFU]/mL Normal 3.8-11.6 [facility] Comment on above: Performed By: #### H EPATIC, BMP, CBC, LIPASE #### [address] Creatinine [Mass/volume] in Serum or PlasmaOrdered By: Trinity Obrien on 11-22-2024 Creatinine [Mass/Vol] 0.89 mg/dL 0.60-1.20 [facility] Comment on above: Performed By: #### H EPATIC, BMP, CBC, LIPASE #### [address] Eosinophils [#/volume] in Bl ood by Automated countOrdered By: Trinity Obrien on 11-22-2024 Eosinophils (Bld) [#/Vol] 0.1 10*3/uL 0.0-0.45 [facility] Comment on above: Performed By: #### H EPATIC, BMP, CBC, LIPASE #### [place] [address] [place] Eosinophils/100 leukocytes i n Blood by Automated countOrdered By: Trinity Obrien on 11-22-2024 Eosinophils/100 WBC (Bld) 0.9 % . [facility] Comment on above: Performed By: #### H EPATIC, BMP, CBC, LIPASE #### [address] Erythrocyte distribution wid th [Ratio] by Automated countOrdered By: Trinity Obrien on 11-22-2024 Erythrocyte distribution width (RBC) [Ratio] 13.5 % 11.9-15.3 [facility] Comment on above: Performed By: #### H EPATIC, BMP, CBC, LIPASE #### [facility] [address] Erythrocytes [#/volume] in B lood by Automated countOrdered By: Trinity Obrien on 11-22-2024 RBC (Bld) [#/Vol] 4.11 10*6/uL 3.60-5.00 [facility] Comment on above: Performed By: #### H EPATIC, BMP, CBC, LIPASE #### [facility] [address] Glomerular filtration rate [ Volume Rate/Area] in Serum, Plasma or Blood by CreatinineOrdered By: Trinity Obrien on 11-22-2024 Glomerular filtration rate [Volume Rate/Area] in Serum, Plasma or Blood by Creatinine > 60.0 mL/Min [facility] Glucose [Mass/volume] in Ser um or PlasmaOrdered By: Trinity Obrien on 11-22-2024 Glucose [Mass/Vol] 97 mg/dL 70-100 [facility] Comment on above: ADA recommended refe rence rangeRandom Glucose Reference Range is dependent on time and content of last meal. Glucose of more than 200 mg/dL in a nonstressed, ambulatory subject supports the diagnosis of Diabetes Mellitus. Result Comment: [place] om Glucose Reference Range is dependent on time and content of last meal. Glucose of more than 200 mg/dL in a nonstressed, ambulatory subject supports the diagnosis of Diabetes Mellitus. ADA recommended reference range Performed By: #### H EPATIC, BMP, CBC, LIPASE #### [facility] [address] Glucose [Mass/volume] in Uri ne by Test stripOrdered By: Trinity Obrien on 11-22-2024 Glucose Test strip (U) [Mass/Vol] Normal mg/dL Normal [facility] Hematocrit [Volume Fraction] of Blood by Automated countOrdered By: Trinity Obrien on 11-22-2024 Hematocrit (Bld) [Volume fraction] 39.0 % 34.0-46.4 [facility] Comment on above: Performed By: #### H EPATIC, BMP, CBC, LIPASE #### [address] Hemoglobin Test strip Ql (U) Ordered By: Trinity Obrien on 11-22-2024 Hemoglobin Ql (U) Negative Negative [facility] Hemoglobin [Mass/volume] in BloodOrdered By: Trinity Obrien on 11-22-2024 Hemoglobin (Bld) [Mass/Vol] 13.5 g/dL 11.8-15.4 [facility] Comment on above: Performed By: #### H EPATIC, BMP, CBC, LIPASE #### [address] Hepatic Panelon 11-22-2024 Albumin [Mass/Vol] 4.0 g/dL Normal 3.5-5.7 [facility] Comment on above: Performed By: #### H EPATIC, BMP, CBC, LIPASE #### [address] Bilirubin,Indirect 0.3 mg/dL Normal [facility] Comment on above: Performed By: #### H EPATIC, BMP, CBC, LIPASE #### [address] Bilirubin.indirect [Mass/Vol] 0.10 mg/dL Normal 0.03-0.18 [facility] Comment on above: Performed By: #### H EPATIC, BMP, CBC, LIPASE #### [address] Ketones [Presence] in Urine by Test stripOrdered By: Trinity Obrien on 11-22-2024 Ketones Ql (U) Negative Negative [facility] Comment on above: Order Comment: Name Collection Type:: Clean-Voided Midstream Performed By: #### U A #### [address] Leukocyte esterase [Presence ] in Urine by Test stripOrdered By: Trinity Obrien on 11-22-2024 Leukocyte esterase Test strip Ql (U) Negative Negative [facility] Comment on above: Order Comment: Name Collection Type:: Clean-Voided Midstream Performed By: #### U A #### [facility] [address] [place] [address] Leukocytes [#/volume] correc kristi for nucleated erythrocytes in Blood by Automated counOrdered By: Trinity bOrien on 11-22-2024 WBC corrected for nucl RBC Auto (Bld) [#/Vol] 7.5 10*3/uL 3.8-11.6 [facility] Leukocytes [#/volume] in Blo od by Automated countOrdered By: Trinity Obrien on 11-22-2024 WBC (Bld) [#/Vol] 7.5 10*3/uL 3.8-11.6 [facility] Comment on above: Performed By: #### H EPATIC, BMP, CBC, LIPASE #### [facility] [address] [place] [address] Lipase [Enzymatic activity/v olume] in Serum or PlasmaOrdered By: Trinity Obrien on 11-22-2024 Lipase [Catalytic activity/Vol] 169.0 U/L High 11.0-82.0 [facility] Comment on above: Result Comment: PERF ORMED BY: [place] [address] PATHOLOGIST PROCUREMENT SERVICES MANAGER CANDELARIA JALLOH M.D. Performed By: #### H EPATIC, BMP, CBC, LIPASE #### [facility] [address] [place] [address] [place] Lymphocytes [#/volume] in Bl ood by Automated countOrdered By: Trinity Obrien on 11-22-2024 Lymphocytes (Bld) [#/Vol] 1.5 10*3/uL 1.00-4.8 [facility] Comment on above: Performed By: #### H EPATIC, BMP, CBC, LIPASE #### [place] [address] [place] Lymphocytes/100 leukocytes i n Blood by Automated countOrdered By: Trinity Obrien on 11-22-2024 Lymphocytes/100 WBC (Bld) 20.6 % . [facility] Comment on above: Performed By: #### H EPATIC, BMP, CBC, LIPASE #### [facility] [address] [place] [address] MCH [Entitic mass] by Automa kristi countOrdered By: Trinity Obrien on 11-22-2024 MCH (RBC) [Entitic mass] 32.8 pg 24.7-34.3 [facility] Comment on above: Performed By: #### H EPATIC, BMP, CBC, LIPASE #### [address] MCHC Auto (RBC) [Mass/Vol]Or dered By: Trinity Obrien on 11-22-2024 MCHC (RBC) [Mass/Vol] 34.6 g/dL 32.0-35.0 [facility] MCV [Entitic volume] by Auto mated countOrdered By: Trinity Obrien on 11-22-2024 MCV (RBC) [Entitic vol] 94.9 fL 80-100 [facility] Comment on above: Performed By: #### H EPATIC, BMP, CBC, LIPASE #### [address] Monocyte distribution width [Entitic volume] in Blood by AutomatedOrdered By: Triinty Obrien on 11-22-2024 Monocyte distribution width Auto (Bld) [Entitic vol] 20.64 % High 0.00-20.00 [facility] Comment on above: For adults in ED, MD W > 20.0 may be associated with a higher risk of sepsis during the first 12 hrs of hospital admission Monocytes [#/volume] in Bloo d by Automated countOrdered By: Trinity Obrien on 11-22-2024 Monocytes (Bld) [#/Vol] 1.0 10*3/uL High 0.0-0.8 [facility] Comment on above: Performed By: #### H EPATIC, BMP, CBC, LIPASE #### [address] Monocytes/100 leukocytes in Blood by Automated countOrdered By: Trinity Obrien on 11-22-2024 Monocytes/100 WBC (Bld) 13.9 % . [facility] Comment on above: Performed By: #### H EPATIC, BMP, CBC, LIPASE #### [facility] [address] [place] [address] [place] Neutrophils [#/volume] in Bl ood by Automated countOrdered By: Trinity Obrien on 11-22-2024 Neutrophils (Bld) [#/Vol] 4.8 10*3/uL 1.8-7.7 [facility] Comment on above: Performed By: #### H EPATIC, BMP, CBC, LIPASE #### [facility] [address] [place] [address] [place] Neutrophils/100 leukocytes i n Blood by Automated countOrdered By: Trinity Obrien on 11-22-2024 Neutrophils/100 WBC (Bld) 63.5 % . [facility] Comment on above: Performed By: #### H EPATIC, BMP, CBC, LIPASE #### [facility] [address] [place] [address] Nitrite Test strip Ql (U)Ord ered By: Trinity Obrien on 11-22-2024 Nitrite Ql (U) Negative Negative [facility] No Panel InformationOrdered By: Trinity Obrien on 11-22-2024 Pharmacy Creatinine Clearance (Chem 40.32 [facility] Nucleated erythrocytes [Pres ence] in Blood by Automated countOrdered By: Trinity Obrien on 11-22-2024 Nucleated RBC Auto Ql (Bld) 0.1 /100{WBC} 0-0.5 [facility] Platelet mean volume [Entiti c volume] in Blood by Automated countOrdered By: Trinity Obrien on 11-22-2024 Platelet mean volume (Bld) [Entitic vol] 7.4 fL 6.3-10.7 [facility] Comment on above: Performed By: #### H EPATIC, BMP, CBC, LIPASE #### [facility] [address] [place] [address] [place] Platelets [#/volume] in Bloo d by Automated countOrdered By: Trinity Obrien on 11-22-2024 Platelets (Bld) [#/Vol] 290 10*3/uL 150-450 [facility] Comment on above: Performed By: #### H EPATIC, BMP, CBC, LIPASE #### [facility] [address] [place] [address] Potassium [Moles/volume] in Serum or PlasmaOrdered By: Trinity Obrien on 11-22-2024 Potassium [Moles/Vol] 3.3 mmol/L Low 3.5-5.1 [facility] Comment on above: Performed By: #### H EPATIC, BMP, CBC, LIPASE #### [facility] [address] [place] [address] Protein Test strip (U) [Mass /Vol]Ordered By: Trinity Obrien on 11-22-2024 Protein (U) [Mass/Vol] Negative Negative [facility] Protein [Mass/volume] in Ser um or PlasmaOrdered By: Trinity Obrien on 11-22-2024 Protein [Mass/Vol] 6.7 g/dL 6.4-8.9 [facility] Comment on above: Performed By: #### H EPATIC, BMP, CBC, LIPASE #### [facility] [address] [place] [address] Serum globulin measurement b y calculation (mass/volume)Ordered By: Trinity Obrien on 11-22-2024 Globulin (S) [Mass/Vol] 2.7 g/dL [facility] Comment on above: Performed By: #### H EPATIC, BMP, CBC, LIPASE #### [facility] [address] [place] [address] Serum or plasma albumin/glob ulin mass ratioOrdered By: Trinity Obrien on 11-22-2024 Albumin/Globulin [Mass ratio] 1.5 {ratio} [facility] Comment on above: Performed By: #### H EPATIC, BMP, CBC, LIPASE #### [address] Serum or plasma anion gap de terminationOrdered By: Trinity Obrien on 11-22-2024 Anion gap [Moles/Vol] 11.0 mmol/L 6.0-15.0 [facility] Comment on above: Performed By: #### H EPATIC, BMP, CBC, LIPASE #### [address] Serum or plasma non-glucuron idated bilirubin measurement (mass/volume)Ordered By: Trinity Obrien on 11-22-2024 Bilirubin.indirect [Mass/Vol] 0.3 mg/dL [facility] Sodium [Moles/volume] in Ser um or PlasmaOrdered By: Trinity Obrien on 11-22-2024 Sodium [Moles/Vol] 134 mmol/L Low 136-145 [facility] Comment on above: Performed By: #### H EPATIC, BMP, CBC, LIPASE #### [address] Specific gravity Test strip (U) [Rel density]Ordered By: Trinity Obrien on 11-22-2024 Specific gravity (U) [Rel density] 1.005 1.001-1.03 0 [facility] Urea nitrogen [Mass/volume] in Serum or PlasmaOrdered By: Trinity Obrien on 11-22-2024 Urea nitrogen [Mass/Vol] 10 mg/dL 10-16 [facility] Comment on above: Performed By: #### H EPATIC, BMP, CBC, LIPASE #### [address] Urinalysison 11-22-2024 Bilirubin,Urine Negative Normal Negative [facility] Comment on above: Order Comment: Name Collection Type:: Clean-Voided Midstream Performed By: #### U A #### [address] Glucose Ql (U) Normal Normal Normal [facility] Comment on above: Order Comment: Name Collection Type:: Clean-Voided Midstream Performed By: #### U A #### [address] Nitrite,Urine Negative Normal Negative [facility] Comment on above: Order Comment: Name Collection Type:: Clean-Voided Midstream Performed By: #### U A #### [address] Occult Blood,Urine Negative Normal Negative [facility] Comment on above: Order Comment: Name Collection Type:: Clean-Voided Midstream Result Comment: PERF ORMED BY: [place] [address] PATHOLOGIST PROCUREMENT SERVICES MANAGER CANDELARIA JALLOH M.D. Performed By: #### U A #### [place] [address] [place] Protein,Urine Negative Normal Negative [facility] Comment on above: Order Comment: Name Collection Type:: Clean-Voided Midstream Performed By: #### U A #### [address] Specificy [place],Urine 1.005 Normal 1.001-1.03 0 [facility] Comment on above: Order Comment: Name Collection Type:: Clean-Voided Midstream Performed By: #### U A #### [address] Urobilinogen,Urine Normal Normal Normal [facility] Comment on above: Order Comment: Name Collection Type:: Clean-Voided Midstream Performed By: #### U A #### [address] Urobilinogen Test strip (U) [Mass/Vol]Ordered By: Trinity Obrien on 11-22-2024 Urobilinogen (U) [Mass/Vol] Normal mg/dL Normal [facility] X-ray reportOrdered By: Endy Crowley on 11-22-2024 Study report [facility] [place] [address] XRay Report Signed Patient: Genny Barboza MR#: [id number] : 1940 Acct:[id number] Age/Sex: 84 / F ADM Date: 5 Loc: ER Room: Type: [facility] ER Attending Dr: Copies to: Trinity Obrien [...] Crowley M.D. 11/22/2024 7:06 PM Dictation Location: [facility]-- Transcribed By: [facility] 11/22/241905 Dictated By: Endy Crowley II, MD 11/22/241904 Signed By: 11/22/241905 [facility] Work Phone: XR KUBon 11-22-2024 XR KUB [facility] [place] [address] XRay Report Signed Patient: Genny Barboza MR#: [id number] : 1940 Acct:[id number] Age/Sex: 84 / F ADM Date: 11/22/24 Loc: ER Room: Type: [facility] ER Attending Dr: Copies to: Trinity Obrien [...] Crowley M.D. 11/22/2024 7:06 PM Dictation Location: [place] [address] Transcribed By: CODY 11/22/241905 Dictated By: Endy Crowley II, MD 11/22/241904 Signed By: 11/22/241905 Normal [facility] pH of Urine by Test stripOrd ered By: Trinity Obrien on 11-22-2024 pH (U) 5.5 [pH] 5.0-9.0 [facility] Comment on above: Order Comment: Name Collection Type:: Clean-Voided Midstream Performed By: #### U A #### [address] Activated partial thrombopla stin time (aPTT) in platelet poor plasma by coagulation aOrdered By: Manish Dejesus on 11-16-2024 aPTT Coag (PPP) [Time] 21.9 s Low 22.3-36.2 [facility] Basophils Auto (Bld) [#/Vol] Ordered By: Manish Dejesus on 11-16-2024 Basophils (Bld) [#/Vol] 0.0 10 3/uL 0.0-0.1 [facility] Basophils/100 WBC Auto (Bld) Ordered By: Manish Dejesus on 11-16-2024 Basophils/100 WBC (Bld) 0.2 % 0.2-2.0 [facility] Eosinophils/100 WBC Auto (Bl d)Ordered By: Manish Dejesus on 11-16-2024 Eosinophils/100 WBC (Bld) 0.1 % Low 0.9-7.0 [facility] Erythrocyte distribution wid th Auto (RBC) [Ratio]Ordered By: Manish Dejesus on 11-16-2024 Erythrocyte distribution width (RBC) [Ratio] 13.9 % 11.0-15.0 [facility] Globulin Calc (S) [Mass/Vol] Ordered By: Branden Du on 11-16-2024 Globulin (S) [Mass/Vol] 3.8 g/dL [facility] Glomerular filtration rate ( GFR) estimation in non- AmericanOrdered By: Branden Du on 11-16-2024 GFR/1.73 sq M.predicted among non-blacks MDRD (S/P/Bld) [Vol rate/Area] mL/min/{1.73_m2} >=60 mL/min/1.7 3m 2 [facility] Hematocrit Auto (Bld) [Volum e fraction]Ordered By: Manish Dejesus on 11-16-2024 Hematocrit (Bld) [Volume fraction] 41.7 % 36.0-48.0 [facility] [facility] Hem[facility] [Mass/volume] in BloodOrdered By: Manish Dejesus on 11-16-2024 Hemoglobin (Bld) [Mass/Vol] 13.8 g/dL 12.0-16.0 [facility] INR in Platelet poor plasma by Coagulation assayOrdered By: Manish Dejesus on 11-16-2024 INR Coag (PPP) [Relative time] 0.97 {INR} [facility] Comment on above: DESIRED INR:2.0-3.0 CONDITIONS NOT LISTED BELOW2.5-3.5 FOR PROSTHETIC HEART VALVE REPLACEMENT2.5-3.5 RECURRENT THROMBOSIS Laboratory - Chemistry and C hemistry - challengeOrdered By: Branden Du on 11-16-2024 Albumin [Mass/Vol] 3.6 g/dL 3.4-5.0 [facility] ALP [Catalytic activity/Vol] 133 U/L High 46-116 [facility] ALT [Catalytic activity/Vol] 41 U/L 14-59 [facility] AST [Catalytic activity/Vol] 22 U/L 15-37 [facility] Bilirubin [Mass/Vol] 0.5 mg/dL 0.2-1.0 [facility] Calcium [Mass/Vol] 9.6 mg/dL 8.5-10.1 [facility] Chloride [Moles/Vol] 103 mmol/L 98-107 [facility] CO2 [Moles/Vol] 26.7 mmol/L 21.0-32.0 [facility] Creatinine [Mass/Vol] 0.73 mg/dL 0.55-1.02 [facility] GFR/1.73 sq M.predicted MDRD (S/P/Bld) [Vol rate/Area] mL/min/{1.73_m2} >=60 mL/min/1.7 3m 2 [facility] Glucose [Mass/Vol] 118 mg/dL High 74-106 [facility] Potassium [Moles/Vol] 4.4 mmol/L 3.5-5.1 [facility] Protein [Mass/Vol] 7.4 g/dL 6.4-8.2 [facility] Sodium [Moles/Vol] 140 mmol/L 136-145 [facility] Urea nitrogen [Mass/Vol] 15.0 mg/dL 7.0-18.0 [facility] Urea nitrogen/Creatinine [Mass ratio] 20.5 mg/mg [facility] Laboratory - Chemistry and C hemistry - challengeOrdered By: Manish Dejesus on 11-16-2024 Lactate [Moles/Vol] 1.4 mmol/L 0.4-2.0 [facility] Magnesium [Mass/Vol] 2.2 mg/dL 1.8-2.4 [facility] Bilirubin Ql (U) Negative NEGATIVE [facility] Glucose (U) [Mass/Vol] Negative NEGATIVE [facility] Ketones Ql (U) Negative NEGATIVE [facility] pH (U) 6.0 [pH] 5.0-9.0 [facility] Specific gravity (U) [Rel density] 1.015 1.005-1.02 5 [facility] Urobilinogen Qn (U) 0.2 {Mio'U}/dL 0.2-1.0 [facility] Laboratory - Hematology and Cell countsOrdered By: Manish Dejesus on 11-16-2024 Immature granulocytes/100 WBC (Bld) 0.4 % 0.0-0.5 [facility] Laboratory - Specimen inform ationOrdered By: Manish Dejesus on 11-16-2024 Appearance (U) CLEAR CLEAR [facility] Color (U) LT. YELLOW YELLOW [facility] Laboratory - UrinalysisOrder ed By: Manish Dejesus on 11-16-2024 Leukocyte esterase Test strip Ql (U) Negative NEGATIVE [facility] Mucus Ql (Urine sed) NONE SEEN NONE SEEN [facility] Nitrite Ql (U) Negative NEGATIVE [facility] Protein Ql (U) Negative NEG/TRACE [facility] Leukocytes [#/volume] correc kristi for nucleated erythrocytes in Blood by Automated counOrdered By: Manish Dejesus on 11-16-2024 WBC corrected for nucl RBC Auto (Bld) [#/Vol] 9.3 10 3/uL 4.0-11.0 [facility] Lymphocytes Auto (Bld) [#/Vo l]Ordered By: Manish Dejesus on 11-16-2024 Lymphocytes (Bld) [#/Vol] 1.1 10 3/uL Low 1.2-3.8 [facility] Lymphocytes/100 WBC Auto (Bl d)Ordered By: Manish Dejesus on 11-16-2024 Lymphocytes/100 WBC (Bld) 11.2 % Low 20.5-60.0 [facility] MCH Auto (RBC) [Entitic mass ]Ordered By: Manish Dejesus on 11-16-2024 MCH (RBC) [Entitic mass] 32.4 pg 26.7-34.0 [facility] MCHC Auto (RBC) [Mass/Vol]Or dered By: Manish Dejesus on 11-16-2024 MCHC (RBC) [Mass/Vol] 33.1 g/dL 29.9-35.2 [facility] MCV Auto (RBC) [Entitic vol] Ordered By: Manish Dejesus on 11-16-2024 MCV (RBC) [Entitic vol] 97.9 fL 81.0-99.0 [facility] Monocytes Auto (Bld) [#/Vol] Ordered By: Manish Dejesus on 11-16-2024 Monocytes (Bld) [#/Vol] 0.6 10 3/uL 0.3-0.8 [facility] Monocytes/100 WBC Auto (Bld) Ordered By: Manish Dejesus on 11-16-2024 Monocytes/100 WBC (Bld) 6.7 % 1.7-12.0 [facility] Neutrophils Auto (Bld) [#/Vo l]Ordered By: Manish Dejesus on 11-16-2024 Neutrophils (Bld) [#/Vol] 7.6 10 3/uL High 1.4-6.5 [facility] Neutrophils/100 WBC Auto (Bl d)Ordered By: Manish Dejesus on 11-16-2024 Neutrophils/100 WBC (Bld) 81.4 % High 43.0-75.0 [facility] No Panel InformationOrdered By: Manish Dejesus on 11-16-2024 Eosinophils # (Auto) 0.0 10 3/uL 0.0-0.7 [facility] Immature Granulocyte # (Auto) 0.04 10 3/uL High 0.00-0.03 [facility] Troponin I High Sensitivity 5.7 pg/mL 4.0-51.3 [facility] Comment on above: CUT-OFF POINTS [...] Urine Bacteria TRACE #/HPF Abnormal NONE SEEN [facility] Urine Occult Blood TRACE-I NEGATIVE [facility] Urine Other Casts NONE SEEN #/LPF NONE SEEN [facility] Urine Other Crystals None Seen #/HPF None Seen [facility] Urine RBC 2-5 #/HPF Abnormal 0-2 [facility] Urine Squamous Epithelial Cells RARE #/LPF NONE/RARE [facility] Urine WBC 0-2 #/HPF Abnormal NONE SEEN [facility] Platelet mean volume Auto (B ld) [Entitic vol]Ordered By: Manish Dejesus on 11-16-2024 Platelet mean volume (Bld) [Entitic vol] 9.2 fL Low 9.5-13.5 [facility] Platelets Auto (Bld) [#/Vol] Ordered By: Manish Dejesus on 11-16-2024 Platelets (Bld) [#/Vol] 277 10 3/uL 150-450 [facility] Prothrombin time (PT)Ordered By: Manish Dejesus on 11-16-2024 PT Coag (PPP) [Time] 10.3 s 9.0-11.6 [facility] RBC Auto (Bld) [#/Vol]Ordere d By: Manish Dejesus on 11-16-2024 RBC (Bld) [#/Vol] 4.26 10 6/uL 4.20-5.40 [facility] Serum or plasma albumin/glob ulin mass ratioOrdered By: Branden Du on 11-16-2024 Albumin/Globulin [Mass ratio] 0.9 {ratio} [facility] Serum or plasma anion gap de terminationOrdered By: Branden Du on 11-16-2024 Anion gap [Moles/Vol] 14.7 mmol/L [facility] Basophils Auto (Bld) [#/Vol] Ordered By: Laurie Mills on 10-03-2024 Basophils (Bld) [#/Vol] 0.0 10 3/uL 0.0-0.1 [facility] Basophils/100 WBC Auto (Bld) Ordered By: Laurie Mills on 10-03-2024 Basophils/100 WBC (Bld) 0.5 % 0.2-2.0 [facility] Eosinophils/100 WBC Auto (Bl d)Ordered By: Laurie Mills on 10-03-2024 Eosinophils/100 WBC (Bld) 1.1 % 0.9-7.0 [facility] Erythrocyte distribution wid th Auto (RBC) [Ratio]Ordered By: Laurie Mills on 10-03-2024 Erythrocyte distribution width (RBC) [Ratio] 13.3 % 11.0-15.0 [facility] Estimated glomerular filtrat ion rate (GFR) non- AmericanOrdered By: Laurie Mills on 10-03-2024 GFR/1.73 sq M.predicted among non-blacks MDRD (S/P/Bld) [Vol rate/Area] mL/min/{1.73_m2} >=60 mL/min/1.7 3m 2 [facility] Globulin Calc (S) [Mass/Vol] Ordered By: Laurie Lina on 10-03-2024 Globulin (S) [Mass/Vol] 3.2 g/dL [facility] Hematocrit Auto (Bld) [Volum e fraction]Ordered By: Laurie Lina on 10-03-2024 Hematocrit (Bld) [Volume fraction] 39.3 % 36.0-48.0 [facility] Hemoglobin [Mass/volume] in BloodOrdered By: Laurie Mills on 10-03-2024 Hemoglobin (Bld) [Mass/Vol] 13.3 g/dL 12.0-16.0 [facility] Laboratory - Chemistry and C hemistry - challengeOrdered By: [facility] on 10-03-2024 Bilirubin Ql (U) Negative NEGATIVE [facility] Glucose (U) [Mass/Vol] Negative NEGATIVE [facility] Ketones Ql (U) Negative NEGATIVE [facility] pH (U) 6.0 [pH] 5.0-9.0 [facility] Specific gravity (U) [Rel density] <=1.005 Abnormal 1.005-1.02 5 [facility] Urobilinogen Qn (U) 0.2 {Mio'U}/dL 0.2-1.0 [facility] Albumin [Mass/Vol] 3.5 g/dL 3.4-5.0 [facility] ALP [Catalytic activity/Vol] 109 U/L 46-116 [facility] ALT [Catalytic activity/Vol] 30 U/L 14-59 [facility] AST [Catalytic activity/Vol] 15 U/L 15-37 [facility] Bilirubin [Mass/Vol] 0.4 mg/dL 0.2-1.0 [facility] Calcium [Mass/Vol] 9.5 mg/dL 8.5-10.1 [facility] Chloride [Moles/Vol] 104 mmol/L 98-107 [facility] CO2 [Moles/Vol] 26.7 mmol/L 21.0-32.0 [facility] Creatinine [Mass/Vol] 0.82 mg/dL 0.55-1.02 [facility] GFR/1.73 sq M.predicted MDRD (S/P/Bld) [Vol rate/Area] mL/min/{1.73_m2} >=60 mL/min/1.7 3m 2 [facility] Glucose [Mass/Vol] 112 mg/dL High 74-106 [facility] Potassium [Moles/Vol] 3.8 mmol/L 3.5-5.1 [facility] Protein [Mass/Vol] 6.7 g/dL 6.4-8.2 [facility] Sodium [Moles/Vol] 140 mmol/L 136-145 [facility] Urea nitrogen [Mass/Vol] 25.0 mg/dL High 7.0-18.0 [facility] Urea nitrogen/Creatinine [Mass ratio] 30.5 mg/mg [facility] Laboratory - Hematology and Cell countsOrdered By: Laurie Mills on 10-03-2024 Immature granulocytes/100 WBC (Bld) 0.2 % 0.0-0.5 [facility] Laboratory - Specimen inform ationOrdered By: Laurie Mills on 10-03-2024 Appearance (U) CLEAR CLEAR [facility] Color (U) LT. YELLOW YELLOW [facility] Laboratory - UrinalysisOrder ed By: Laurie Mills on 10-03-2024 Leukocyte esterase Test strip Ql (U) SMALL Abnormal NEGATIVE [facility] Mucus Ql (Urine sed) NONE SEEN NONE SEEN [facility] Nitrite Ql (U) Negative NEGATIVE [facility] Protein Ql (U) Negative NEG/TRACE [facility] Leukocytes [#/volume] correc kristi for nucleated erythrocytes in Blood by Automated counOrdered By: Laurie Mills on 10-03-2024 WBC corrected for nucl RBC Auto (Bld) [#/Vol] 6.1 10 3/uL 4.0-11.0 [facility] Lymphocytes Auto (Bld) [#/Vo l]Ordered By: Laurie Mills on 10-03-2024 Lymphocytes (Bld) [#/Vol] 1.4 10 3/uL 1.2-3.8 [facility] Lymphocytes/100 WBC Auto (Bl d)Ordered By: Laurie Mills on 10-03-2024 Lymphocytes/100 WBC (Bld) 22.6 % 20.5-60.0 [facility] MCH Auto (RBC) [Entitic mass ]Ordered By: Laurie Mills on 10-03-2024 MCH (RBC) [Entitic mass] 32.9 pg 26.7-34.0 [facility] MCHC Auto (RBC) [Mass/Vol]Or dered By: Laurie Mills on 10-03-2024 MCHC (RBC) [Mass/Vol] 33.8 g/dL 29.9-35.2 [facility] MCV Auto (RBC) [Entitic vol] Ordered By: Laurie Mills on 10-03-2024 MCV (RBC) [Entitic vol] 97.3 fL 81.0-99.0 [facility] Monocytes Auto (Bld) [#/Vol] Ordered By: Laurie Mills on 10-03-2024 Monocytes (Bld) [#/Vol] 0.7 10 3/uL 0.3-0.8 [facility] Monocytes/100 WBC Auto (Bld) Ordered By: Laurie Mills on 10-03-2024 Monocytes/100 WBC (Bld) 12.1 % High 1.7-12.0 [facility] Neutrophils Auto (Bld) [#/Vo l]Ordered By: Laurie Mills on 10-03-2024 Neutrophils (Bld) [#/Vol] 3.9 10 3/uL 1.4-6.5 [facility] Neutrophils/100 WBC Auto (Bl d)Ordered By: Laurie Mills on 10-03-2024 Neutrophils/100 WBC (Bld) 63.5 % 43.0-75.0 [facility] No Panel InformationOrdered By: Laurie Mills on 10-03-2024 Urine Bacteria SMALL #/HPF Abnormal NONE SEEN [facility] Urine Culture Reflexed YES-[facility] Urine Microscopic Review YES [facility] Urine Occult Blood TRACE-L NEGATIVE [facility] Urine Other Casts NONE SEEN #/LPF NONE SEEN [facility] Urine Other Crystals None Seen #/HPF None Seen [facility] Urine RBC 2-5 #/HPF Abnormal 0-2 [facility] Urine Squamous Epithelial Cells RARE #/LPF NONE/RARE [facility] Urine WBC 5-10 #/HPF Abnormal NONE SEEN [facility] Eosinophils # (Auto) 0.1 10 3/uL 0.0-0.7 [facility] Immature Granulocyte # (Auto) 0.01 10 3/uL 0.00-0.03 [facility] Troponin I High Sensitivity 5.7 pg/mL 4.0-51.3 [facility] Comment on above: CUT-OFF POINTS [...] volume (Bld) [Entitic vol] 9.6 fL 9.5-13.5 [facility] Platelets Auto (Bld) [#/Vol] Ordered By: Laurie Mills on 10-03-2024 Platelets (Bld) [#/Vol] 250 10 3/uL 150-450 [facility] RBC Auto (Bld) [#/Vol]Ordere d By: Laurie Mills on 10-03-2024 RBC (Bld) [#/Vol] 4.04 10 6/uL Low 4.20-5.40 [facility] Serum or plasma albumin/glob ulin mass ratioOrdered By: Laurie Mills on 10-03-2024 Albumin/Globulin [Mass ratio] 1.1 {ratio} [facility] Serum or plasma anion gap de terminationOrdered By: Laurie Mills on 10-03-2024 Anion gap [Moles/Vol] 13.1 mmol/L [facility] Urine Cultureon 10-03-2024 Bacteria identified Cx Nom (U) ORGANISM: Escherichia coli (MDRO) (O:ESCCOLMDRO) [place] Count >100,000 * This is a corrected [...] RESISTANT TO ALL B-LACTAM DRUGS. PERFORMED BY: [place] [address] PATHOLOGIST PROCUREMENT SERVICES MANAGER CANDELARIA JALLOH M.D. Normal [facility] Comment on above: Performed By: #### C UU #### [address] Urine cultureOrdered By: Anisa Mills on 10-03-2024 Bacteria identified Cx Nom (U) Escherichia coli (MDRO) Abnormal [facility] Basophils Auto (Bld) [#/Vol] on 08-05-2024 Basophils (Bld) [#/Vol] Automated basophil count 0.0-0.1 [facility] Basophils (Bld) [#/Vol] 0.0 10 3/uL 0.0-0.1 [facility] Basophils/100 WBC Auto (Bld) on 08-05-2024 Basophils/100 WBC (Bld) Automated basophil % 0.2-2.0 [facility] Basophils/100 WBC (Bld) 0.6 % 0.2-2.0 [facility] Eosinophils/100 WBC Auto (Bl d)on 08-05-2024 Eosinophils/100 WBC (Bld) Automated eosinophil % 0.9-7.0 [facility] Eosinophils/100 WBC (Bld) 0.9 % 0.9-7.0 [facility] Erythrocyte distribution wid th Auto (RBC) [Ratio]on 08-05-2024 Erythrocyte distribution width (RBC) [Ratio] Erythrocyte distribution width [Ratio] by Automated count 11.0-15.0 [facility] Erythrocyte distribution width (RBC) [Ratio] 13.9 % 11.0-15.0 [facility] Estimated glomerular filtrat ion rate (GFR) non- Americanon 08-05-2024 GFR/1.73 sq M.predicted among non-blacks MDRD (S/P/Bld) [Vol rate/Area] Estimated glomerular filtration rate (GFR) non- Low >=60 mL/min/1.7 3m 2 [facility] GFR/1.73 sq M.predicted among non-blacks MDRD (S/P/Bld) [Vol rate/Area] 58 mL/min/{1.73_m2} Low >=60 mL/min/1.7 3m 2 [facility] Hematocrit Auto (Bld) [Volum e fraction]on 08-05-2024 Hematocrit (Bld) [Volume fraction] Hematocrit [Volume Fraction] of Blood by Automated count 36.0-48.0 [facility] Hematocrit (Bld) [Volume fraction] 39.6 % 36.0-48.0 [facility] Hemoglobin [Mass/volume] in Bloodon 08-05-2024 Hemoglobin (Bld) [Mass/Vol] Hemoglobin [Mass/volume] in Blood 12.0-16.0 [facility] Hemoglobin (Bld) [Mass/Vol] 13.3 g/dL 12.0-16.0 [facility] Laboratory - Chemistry and C hemistry - challengeon 08-05-2024 Calcium [Mass/Vol] 9.7 mg/dL 8.5-10.1 [facility] Chloride [Moles/Vol] 107 mmol/L 98-107 [facility] CO2 [Moles/Vol] 24.2 mmol/L 21.0-32.0 [facility] Creatinine [Mass/Vol] 0.92 mg/dL 0.55-1.02 [facility] GFR/1.73 sq M.predicted MDRD (S/P/Bld) [Vol rate/Area] mL/min/{1.73_m2} >=60 mL/min/1.7 3m 2 [facility] Glucose [Mass/Vol] 86 mg/dL 74-106 [facility] Potassium [Moles/Vol] 3.6 mmol/L 3.5-5.1 [facility] Sodium [Moles/Vol] 140 mmol/L 136-145 [facility] TSH Qn 1.563 m[IU]/L 0.358-3.74 0 [facility] Urea nitrogen [Mass/Vol] 15.0 mg/dL 7.0-18.0 [facility] Urea nitrogen/Creatinine [Mass ratio] 16.3 mg/mg [facility] Laboratory - Hematology and Cell countson 08-05-2024 Immature granulocytes/100 WBC (Bld) 0.2 % 0.0-0.5 [facility] Leukocytes [#/volume] correc kristi for nucleated erythrocytes in Blood by Automated counon 08-05-2024 WBC corrected for nucl RBC Auto (Bld) [#/Vol] Leukocytes [#/volume] corrected for nucleated erythrocytes in Blood by Automated coun 4.0-11.0 [facility] WBC corrected for nucl RBC Auto (Bld) [#/Vol] 6.3 10 3/uL 4.0-11.0 [facility] Lymphocytes Auto (Bld) [#/Vo l]on 08-05-2024 Lymphocytes (Bld) [#/Vol] Lymphocytes [#/volume] in Blood by Automated count 1.2-3.8 [facility] Lymphocytes (Bld) [#/Vol] 1.8 10 3/uL 1.2-3.8 [facility] Lymphocytes/100 WBC Auto (Bl d)on 08-05-2024 Lymphocytes/100 WBC (Bld) Lymphocytes/100 leukocytes in Blood by Automated count 20.5-60.0 [facility] Lymphocytes/100 WBC (Bld) 28.0 % 20.5-60.0 [facility] MCH Auto (RBC) [Entitic mass ]on 08-05-2024 MCH (RBC) [Entitic mass] MCH [Entitic mass] by Automated count 26.7-34.0 [facility] MCH (RBC) [Entitic mass] 32.5 pg 26.7-34.0 [facility] MCHC Auto (RBC) [Mass/Vol]on 08-05-2024 MCHC (RBC) [Mass/Vol] MCHC [Mass/volume] by Automated count 29.9-35.2 [facility] MCHC (RBC) [Mass/Vol] 33.6 g/dL 29.9-35.2 [facility] MCV Auto (RBC) [Entitic vol] on 08-05-2024 MCV (RBC) [Entitic vol] MCV [Entitic volume] by Automated count 81.0-99.0 [facility] MCV (RBC) [Entitic vol] 96.8 fL 81.0-99.0 [facility] Monocytes Auto (Bld) [#/Vol] on 08-05-2024 Monocytes (Bld) [#/Vol] Automated blood monocyte count 0.3-0.8 [facility] Monocytes (Bld) [#/Vol] 0.6 10 3/uL 0.3-0.8 [facility] Monocytes/100 WBC Auto (Bld) on 08-05-2024 Monocytes/100 WBC (Bld) Automated monocyte % 1.7-12.0 [facility] Monocytes/100 WBC (Bld) 9.7 % 1.7-12.0 [facility] Neutrophils Auto (Bld) [#/Vo l]on 08-05-2024 Neutrophils (Bld) [#/Vol] Neutrophils [#/volume] in Blood by Automated count 1.4-6.5 [facility] Neutrophils (Bld) [#/Vol] 3.8 10 3/uL 1.4-6.5 [facility] Neutrophils/100 WBC Auto (Bl d)on 08-05-2024 Neutrophils/100 WBC (Bld) Automated neutrophil % 43.0-75.0 [facility] Neutrophils/100 WBC (Bld) 60.6 % 43.0-75.0 [facility] No Panel Informationon 08-05 Eosinophils # (Auto) 0.1 10 3/uL 0.0-0.7 [facility] Immature Granulocyte # (Auto) 0.01 10 3/uL 0.00-0.03 [facility] Platelet mean volume Auto (B ld) [Entitic vol]on 08-05-2024 Platelet mean volume (Bld) [Entitic vol] Platelet mean volume [Entitic volume] in Blood by Automated count 9.5-13.5 [facility] Platelet mean volume (Bld) [Entitic vol] 9.8 fL 9.5-13.5 [facility] Platelets Auto (Bld) [#/Vol] on 08-05-2024 Platelets (Bld) [#/Vol] Platelets [#/volume] in Blood by Automated count 150-450 [facility] Platelets (Bld) [#/Vol] 265 10 3/uL 150-450 [facility] RBC Auto (Bld) [#/Vol]on RBC (Bld) [#/Vol] Erythrocytes [#/volu me] in Blood by Automated count Low 4.20-5.40 [facility] RBC (Bld) [#/Vol] 4.09 10 6/uL Low 4.20-5.40 [facility] Serum or plasma anion gap de terminationon 08-05-2024 Anion gap [Moles/Vol] Serum or plasma an ion gap determination [facility] Anion gap [Moles/Vol] 12.4 mmol/L [facility] Basophils Auto (Bld) [#/Vol] on 04-28-2024 Basophils (Bld) [#/Vol] Automated basophil count 0.0-0.1 [facility] Basophils/100 WBC Auto (Bld) on 04-28-2024 Basophils/100 WBC (Bld) Automated basophil % 0.2-2.0 [facility] Eosinophils/100 WBC Auto (Bl d)on 04-28-2024 Eosinophils/100 WBC (Bld) Automated eosinophil % Low 0.9-7.0 [facility] Erythrocyte distribution wid th Auto (RBC) [Ratio]on 04-28-2024 Erythrocyte distribution width (RBC) [Ratio] Erythrocyte distribution width [Ratio] by Automated count 11.0-15.0 [facility] Hematocrit Auto (Bld) [Volum e fraction]on 04-28-2024 Hematocrit (Bld) [Volume fraction] Hematocrit [Volume Fraction] of Blood by Automated count 36.0-48.0 [facility] Hemoglobin [Mass/volume] in Bloodon 04-28-2024 Hemoglobin (Bld) [Mass/Vol] Hemoglobin [Mass/volume] in Blood 12.0-16.0 [facility] Laboratory - Chemistry and C hemistry - challengeon 04-28-2024 Cobalamin (Vitamin B12) [Mass/Vol] 811 pg/mL 232-1245 [facility] Comment on above: Performed at: [address] [id number] Director: Aime Fabian PhD, Phone: [phone] TSH Qn 2.025 m[IU]/L 0.358-3.74 0 [facility] Laboratory - Hematology and Cell countson 04-28-2024 Immature granulocytes/100 WBC (Bld) 0.1 % 0.0-0.5 [facility] Leukocytes [#/volume] correc kristi for nucleated erythrocytes in Blood by Automated counon 04-28-2024 WBC corrected for nucl RBC Auto (Bld) [#/Vol] Leukocytes [#/volume] corrected for nucleated erythrocytes in Blood by Automated coun 4.0-11.0 [facility] Lymphocytes Auto (Bld) [#/Vo l]on 04-28-2024 Lymphocytes (Bld) [#/Vol] Lymphocytes [#/volume] in Blood by Automated count 1.2-3.8 [facility] Lymphocytes/100 WBC Auto (Bl d)on 04-28-2024 Lymphocytes/100 WBC (Bld) Lymphocytes/100 leukocytes in Blood by Automated count 20.5-60.0 [facility] MCH Auto (RBC) [Entitic mass ]on 04-28-2024 MCH (RBC) [Entitic mass] MCH [Entitic mass] by Automated count 26.7-34.0 [facility] MCHC Auto (RBC) [Mass/Vol]on 04-28-2024 MCHC (RBC) [Mass/Vol] MCHC [Mass/volume] by Automated count 29.9-35.2 [facility] MCV Auto (RBC) [Entitic vol] on 04-28-2024 MCV (RBC) [Entitic vol] MCV [Entitic volume] by Automated count 81.0-99.0 [facility] Monocytes Auto (Bld) [#/Vol] on 04-28-2024 Monocytes (Bld) [#/Vol] Automated blood monocyte count 0.3-0.8 [facility] Monocytes/100 WBC Auto (Bld) on 04-28-2024 Monocytes/100 WBC (Bld) Automated monocyte % 1.7-12.0 [facility] Neutrophils Auto (Bld) [#/Vo l]on 04-28-2024 Neutrophils (Bld) [#/Vol] Neutrophils [#/volume] in Blood by Automated count 1.4-6.5 [facility] Neutrophils/100 WBC Auto (Bl d)on 04-28-2024 Neutrophils/100 WBC (Bld) Automated neutrophil % 43.0-75.0 [facility] No Panel Informationon 04-28 Eosinophils # (Auto) 0.1 10 3/uL 0.0-0.7 [facility] Immature Granulocyte # (Auto) 0.01 10 3/uL 0.00-0.03 [facility] Platelet mean volume Auto (B ld) [Entitic vol]on 04-28-2024 Platelet mean volume (Bld) [Entitic vol] Platelet mean volume [Entitic volume] in Blood by Automated count 9.5-13.5 [facility] Platelets Auto (Bld) [#/Vol] on 04-28-2024 Platelets (Bld) [#/Vol] Platelets [#/volume] in Blood by Automated count 150-450 [facility] RBC Auto (Bld) [#/Vol]on RBC (Bld) [#/Vol] Erythrocytes [#/volu me] in Blood by Automated count Low 4.20-5.40 [facility] Serum or plasma methylmalona te measurement (moles/volume)on 04-28-2024 Methylmalonate [Moles/Vol] Serum or plasma methylmalonate measurement (moles/volume) 0-378 [facility] Comment on above: This test was develo ped and its performance characteristicsdetermined by [employer]. It has not been cleared orapproved by the Food and Drug Administration.Performed at: [address] [id number] Director: Guanaco Russell MD, Phone: [phone] Basophils Auto (Bld) [#/Vol] on 03-12-2024 Basophils (Bld) [#/Vol] Automated basophil count 0.0-0.1 [facility] Basophils/100 WBC Auto (Bld) on 03-12-2024 Basophils/100 WBC (Bld) Automated basophil % 0.2-2.0 [facility] Cholesterol in LDL Calc [Mas s/Vol]on 03-12-2024 Cholesterol in LDL [Mass/Vol] Cholesterol in LDL [Mass/volume] in Serum or Plasma by calculation [facility] Comment on above: <100 mg/dl [id number] 0-129 mg/dl NEAR OR ABOVE [id number] mg/dl BORDERLINE [id number] mg/dl HIGH>190 mg/dl VERY HIGH Cholesterol in VLDL Calc [Ma ss/Vol]on 03-12-2024 Cholesterol in VLDL [Mass/Vol] Cholesterol in VLDL [Mass/volume] in Serum or Plasma by calculation [facility] Eosinophils/100 WBC Auto (Bl d)on 03-12-2024 Eosinophils/100 WBC (Bld) Automated eosinophil % Low 0.9-7.0 [facility] Erythrocyte distribution wid th Auto (RBC) [Ratio]on 03-12-2024 Erythrocyte distribution width (RBC) [Ratio] Erythrocyte distribution width [Ratio] by Automated count 11.0-15.0 [facility] Estimated glomerular filtrat ion rate (GFR) non- Americanon 03-12-2024 GFR/1.73 sq M.predicted among non-blacks MDRD (S/P/Bld) [Vol rate/Area] Estimated glomerular filtration rate (GFR) non- Low >=60 mL/min/1.7 3m 2 [facility] Globulin Calc (S) [Mass/Vol] on 03-12-2024 Globulin (S) [Mass/Vol] Serum globulin measurement by calculation (mass/volume) [facility] Hematocrit Auto (Bld) [Volum e fraction]on 03-12-2024 Hematocrit (Bld) [Volume fraction] Hematocrit [Volume Fraction] of Blood by Automated count 36.0-48.0 [facility] Hemoglobin [Mass/volume] in Bloodon 03-12-2024 Hemoglobin (Bld) [Mass/Vol] Hemoglobin [Mass/volume] in Blood 12.0-16.0 [facility] IgA [Mass/volume] in Serum o r Plasmaon 03-12-2024 IgA [Mass/Vol] IgA [Mass/volume] in Serum or Plasma 64-422 [facility] Comment on above: Performed at: [address] [id number] Director: Aime Fabian PhD, Phone: [phone] Laboratory - Chemistry and C hemistry - challengeon 03-12-2024 Albumin [Mass/Vol] 3.5 g/dL 3.4-5.0 [facility] ALP [Catalytic activity/Vol] 123 U/L High 46-116 [facility] ALT [Catalytic activity/Vol] 32 U/L 14-59 [facility] AST [Catalytic activity/Vol] 17 U/L 15-37 [facility] Bilirubin [Mass/Vol] 0.6 mg/dL 0.2-1.0 [facility] Calcium [Mass/Vol] 9.1 mg/dL 8.5-10.1 [facility] Chloride [Moles/Vol] 107 mmol/L 98-107 [facility] Cholesterol [Mass/Vol] 199 mg/dL <=200 [facility] Cholesterol in HDL [Mass/Vol] 128 mg/dL High 40-60 [facility] Comment on above: > or =60 mg/dl - LOW CARDIOVASCULAR RISK<40 mg/dl - HIGH CARDIOVASCULAR RISK CO2 [Moles/Vol] 25.5 mmol/L 21.0-32.0 [facility] Creatinine [Mass/Vol] 0.97 mg/dL 0.55-1.02 [facility] GFR/1.73 sq M.predicted MDRD (S/P/Bld) [Vol rate/Area] mL/min/{1.73_m2} >=60 mL/min/1.7 3m 2 [facility] Glucose [Mass/Vol] 91 mg/dL 74-106 [facility] Potassium [Moles/Vol] 3.7 mmol/L 3.5-5.1 [facility] Protein [Mass/Vol] 6.8 g/dL 6.4-8.2 [facility] Sodium [Moles/Vol] 143 mmol/L 136-145 [facility] Triglyceride [Mass/Vol] 65 mg/dL <=150 [facility] Urea nitrogen [Mass/Vol] 15.0 mg/dL 7.0-18.0 [facility] Urea nitrogen/Creatinine [Mass ratio] 15.5 mg/mg [facility] Laboratory - Hematology and Cell countson 03-12-2024 Immature granulocytes/100 WBC (Bld) 0.1 % 0.0-0.5 [facility] Leukocytes [#/volume] correc kristi for nucleated erythrocytes in Blood by Automated counon 03-12-2024 WBC corrected for nucl RBC Auto (Bld) [#/Vol] Leukocytes [#/volume] corrected for nucleated erythrocytes in Blood by Automated coun 4.0-11.0 [facility] Lymphocytes Auto (Bld) [#/Vo l]on 03-12-2024 Lymphocytes (Bld) [#/Vol] Lymphocytes [#/volume] in Blood by Automated count 1.2-3.8 [facility] Lymphocytes/100 WBC Auto (Bl d)on 03-12-2024 Lymphocytes/100 WBC (Bld) Lymphocytes/100 leukocytes in Blood by Automated count 20.5-60.0 [facility] MCH Auto (RBC) [Entitic mass ]on 03-12-2024 MCH (RBC) [Entitic mass] MCH [Entitic mass] by Automated count 26.7-34.0 [facility] MCHC Auto (RBC) [Mass/Vol]on 03-12-2024 MCHC (RBC) [Mass/Vol] MCHC [Mass/volume] by Automated count 29.9-35.2 [facility] MCV Auto (RBC) [Entitic vol] on 03-12-2024 MCV (RBC) [Entitic vol] MCV [Entitic volume] by Automated count 81.0-99.0 [facility] Monocytes Auto (Bld) [#/Vol] on 03-12-2024 Monocytes (Bld) [#/Vol] Automated blood monocyte count 0.3-0.8 [facility] Monocytes/100 WBC Auto (Bld) on 03-12-2024 Monocytes/100 WBC (Bld) Automated monocyte % 1.7-12.0 [facility] Neutrophils Auto (Bld) [#/Vo l]on 03-12-2024 Neutrophils (Bld) [#/Vol] Neutrophils [#/volume] in Blood by Automated count 1.4-6.5 [facility] Neutrophils/100 WBC Auto (Bl d)on 03-12-2024 Neutrophils/100 WBC (Bld) Automated neutrophil % 43.0-75.0 [facility] No Panel Informationon 03-12 Endomysial IgA Antibody Negative Negative [facility] Eosinophils # (Auto) 0.1 10 3/uL 0.0-0.7 [facility] Immature Granulocyte # (Auto) 0.01 10 3/uL 0.00-0.03 [facility] Platelet mean volume Auto (B ld) [Entitic vol]on 03-12-2024 Platelet mean volume (Bld) [Entitic vol] Platelet mean volume [Entitic volume] in Blood by Automated count 9.5-13.5 [facility] Platelets Auto (Bld) [#/Vol] on 03-12-2024 Platelets (Bld) [#/Vol] Platelets [#/volume] in Blood by Automated count 150-450 [facility] RBC Auto (Bld) [#/Vol]on RBC (Bld) [#/Vol] Erythrocytes [#/volu me] in Blood by Automated count Low 4.20-5.40 [facility] Serum gliadin peptide IgA an tibody assay (units/volume)on 03-12-2024 Gliadin peptide IgA Qn (S) Serum gliadin peptide IgA antibody assay (units/volume) [facility] Comment on above: Negative 0 - 19 Weak Positive 20 - 30 Moderate to Strong Positive >30 Serum gliadin peptide IgG an tibody assay (units/volume)on 03-12-2024 Gliadin peptide IgG Qn (S) Serum gliadin peptide IgG antibody assay (units/volume) [facility] Comment on above: Negative 0 - 19 Weak Positive 20 - 30 Moderate to Strong Positive >30 Serum or plasma albumin/glob ulin mass ratioon 03-12-2024 Albumin/Globulin [Mass ratio] Serum or plasma albumin/globulin mass ratio [facility] Serum or plasma anion gap de terminationon 03-12-2024 Anion gap [Moles/Vol] Serum or plasma an ion gap determination [facility] Serum or plasma total choles terol/high density lipoprotein (HDL) cholesterol mass henry 03-12-2024 Cholesterol.total/Cho lesterol in HDL [Mass ratio] Serum or plasma total cholesterol/high density lipoprotein (HDL) cholesterol mass rat [facility] Comment on above: 3.3 - 4.4 LOW RISK4. 4 - 7.1 AVERAGE RISK7.1 - 11.0 MODERATE RISK>11.0 HIGH RISK Serum tissue transglutaminas e (tTG) IgA antibody assay (units/volume)on 03-12-2024 tTG IgA Qn (S) Serum tissue transglutaminase (tTG) IgA antibody assay (units/volume) 0-3 [facility] Comment on above: Negative 0 [...] (tTG) IgG antibody assay (units/volume) Abnormal 0-5 [facility] Comment on above: Negative 0 - 5 Weak Positive 6 - 9 Positive >9 ECG 12 Leadon 12-20-2023 Normal sinus rhythm, leftward axis, low voltage, nonspecific ST-T wave abnormality, abnormal ECG [facility] Work Phone: Activated partial thrombopla stin time (aPTT) in platelet poor plasma by coagulation aOrdered By: PROVIDER TEMP on 11-05-2023 aPTT Coag (PPP) [Time] 30.2 s 25.1-36.5 [facility] Comment on above: A hematocrit value g reater than 55% may lead to inaccurate results in coagulation testing. Patients having hematocrit values >55% require a special collection tube for coagulation studies. Please contact the laboratory at [phone] for redraw instructions. Alanine aminotransferase [En zymatic activity/volume] in Serum or PlasmaOrdered By: PROVIDER TEMP on 11-05-2023 ALT [Catalytic activity/Vol] 27 U/L 7-52 [facility] Albumin [Mass/volume] in Ser um or Plasma by Bromocresol green (BCG) dye binding methoOrdered By: PROVIDER TEMP on 11-05-2023 Albumin BCG dye [Mass/Vol] 4.1 g/dL 3.5-5.7 [facility] Alkaline phosphatase [Enzyma tic activity/volume] in Serum or PlasmaOrdered By: PROVIDER TEMP on 11-05-2023 ALP [Catalytic activity/Vol] 99 U/L 34-104 [facility] Aspartate aminotransferase [ Enzymatic activity/volume] in Serum or PlasmaOrdered By: PROVIDER TEMP on 11-05-2023 AST [Catalytic activity/Vol] 19 U/L 13-39 [facility] Basophils Auto (Bld) [#/Vol] Ordered By: PROVIDER TEMP on 11-05-2023 Basophils (Bld) [#/Vol] 0.1 10*3/uL 0.0-0.2 [facility] Basophils/100 WBC Auto (Bld) Ordered By: PROVIDER TEMP on 11-05-2023 Basophils/100 WBC (Bld) 0.8 % . [facility] Bilirubin.total [Mass/volume ] in Serum or PlasmaOrdered By: PROVIDER TEMP on 11-05-2023 Bilirubin [Mass/Vol] 0.5 mg/dL 0.3-1.0 [facility] Calcium [Mass/volume] in Ser um or PlasmaOrdered By: PROVIDER TEMP on 11-05-2023 Calcium [Mass/Vol] 9.6 mg/dL 8.6-10.3 [facility] Carbon dioxide, total [Moles /volume] in Serum or PlasmaOrdered By: PROVIDER TEMP on 11-05-2023 CO2 [Moles/Vol] 22.2 mmol/L 21.0-31.0 [facility] Chloride [Moles/volume] in S carolyne or PlasmaOrdered By: PROVIDER TEMP on 11-05-2023 Chloride [Moles/Vol] 109 mmol/L High 98-107 [facility] Creatine kinase [Enzymatic a ctivity/volume] in Serum or PlasmaOrdered By: PROVIDER TEMP on 11-05-2023 CK [Catalytic activity/Vol] 66 U/L 30-223 [facility] Creatinine [Mass/volume] in Serum or PlasmaOrdered By: PROVIDER TEMP on 11-05-2023 Creatinine [Mass/Vol] 0.87 mg/dL 0.60-1.20 [facility] Eosinophils Auto (Bld) [#/Vo l]Ordered By: PROVIDER TEMP on 11-05-2023 Eosinophils (Bld) [#/Vol] 0.1 10*3/uL 0.0-0.45 [facility] Eosinophils/100 WBC Auto (Bl d)Ordered By: PROVIDER TEMP on 11-05-2023 Eosinophils/100 WBC (Bld) 0.8 % . [facility] Erythrocyte distribution wid th Auto (RBC) [Ratio]Ordered By: PROVIDER TEMP on 11-05-2023 Erythrocyte distribution width (RBC) [Ratio] 13.4 % 11.9-15.3 [facility] Globulin Calc (S) [Mass/Vol] Ordered By: PROVIDER TEMP on 11-05-2023 Globulin (S) [Mass/Vol] 2.7 g/dL [facility] Glucose [Mass/volume] in Ser um or PlasmaOrdered By: PROVIDER TEMP on 11-05-2023 Glucose [Mass/Vol] 104 mg/dL High 70-100 [facility] Comment on above: ADA recommended refe rence rangeRandom Glucose Reference Range is dependent on time and content of last meal. Glucose of more than 200 mg/dL in a nonstressed, ambulatory subject supports the diagnosis of Diabetes Mellitus. Hematocrit Auto (Bld) [Volum e fraction]Ordered By: PROVIDER TEMP on 11-05-2023 Hematocrit (Bld) [Volume fraction] 40.1 % 34.0-46.4 [facility] Hemoglobin [Mass/volume] in BloodOrdered By: PROVIDER TEMP on 11-05-2023 Hemoglobin (Bld) [Mass/Vol] 13.7 g/dL 11.8-15.4 [facility] INR in Platelet poor plasma by Coagulation assayOrdered By: PROVIDER TEMP on 11-05-2023 INR Coag (PPP) [Relative time] 0.9 {INR} [facility] Comment on above: INR Therapeutic [...] RBC Auto (Bld) [#/Vol] 6.7 10*3/uL 3.8-11.6 [facility] Lymphocytes Auto (Bld) [#/Vo l]Ordered By: PROVIDER TEMP on 11-05-2023 Lymphocytes (Bld) [#/Vol] 1.0 10*3/uL 1.00-4.8 [facility] Lymphocytes/100 WBC Auto (Bl d)Ordered By: PROVIDER TEMP on 11-05-2023 Lymphocytes/100 WBC (Bld) 15.0 % . [facility] MCH Auto (RBC) [Entitic mass ]Ordered By: PROVIDER TEMP on 11-05-2023 MCH (RBC) [Entitic mass] 32.6 pg 24.7-34.3 [facility] MCHC Auto (RBC) [Mass/Vol]Or dered By: PROVIDER TEMP on 11-05-2023 MCHC (RBC) [Mass/Vol] 34.2 g/dL 32.0-35.0 [facility] MCV Auto (RBC) [Entitic vol] Ordered By: PROVIDER TEMP on 11-05-2023 MCV (RBC) [Entitic vol] 95.5 fL 80-100 [facility] Monocyte distribution width [Entitic volume] in Blood by AutomatedOrdered By: PROVIDER TEMP on 11-05-2023 Monocyte distribution width Auto (Bld) [Entitic vol] 20.41 % High 0.00-20.00 [facility] Comment on above: For adults in ED, MD W > 20.0 may be associated with a higher risk of sepsis during the first 12 hrs of hospital admission Monocytes Auto (Bld) [#/Vol] Ordered By: PROVIDER TEMP on 11-05-2023 Monocytes (Bld) [#/Vol] 0.6 10*3/uL 0.0-0.8 [facility] Monocytes/100 WBC Auto (Bld) Ordered By: PROVIDER TEMP on 11-05-2023 Monocytes/100 WBC (Bld) 9.6 % . [facility] Natriuretic peptide B [Mass/ Vol]Ordered By: PROVIDER TEMP on 11-05-2023 Natriuretic peptide B (Bld) [Mass/Vol] 293.0 pg/mL High 5-100 [facility] Neutrophils Auto (Bld) [#/Vo l]Ordered By: PROVIDER TEMP on 11-05-2023 Neutrophils (Bld) [#/Vol] 5.0 10*3/uL 1.8-7.7 [facility] Neutrophils/100 WBC Auto (Bl d)Ordered By: PROVIDER TEMP on 11-05-2023 Neutrophils/100 WBC (Bld) 73.8 % . [facility] No Panel InformationOrdered By: PROVIDER TEMP on 11-05-2023 Estimated GFR (CKD-EPI) > 60.0 mL/Min [facility] Creatinine Clearance (Chem 42.53 [facility] Nucleated erythrocytes [Pres ence] in Blood by Automated countOrdered By: PROVIDER TEMP on 11-05-2023 Nucleated RBC Auto Ql (Bld) 0.1 /100{WBC} 0-0.5 [facility] Platelet mean volume Auto (B ld) [Entitic vol]Ordered By: PROVIDER TEMP on 11-05-2023 Platelet mean volume (Bld) [Entitic vol] 8.0 fL 6.3-10.7 [facility] Platelets Auto (Bld) [#/Vol] Ordered By: PROVIDER TEMP on 11-05-2023 Platelets (Bld) [#/Vol] 314 10*3/uL 150-450 [facility] Potassium [Moles/volume] in Serum or PlasmaOrdered By: PROVIDER TEMP on 11-05-2023 Potassium [Moles/Vol] 4.3 mmol/L 3.5-5.1 [facility] Protein [Mass/volume] in Ser um or PlasmaOrdered By: PROVIDER TEMP on 11-05-2023 Protein [Mass/Vol] 6.8 g/dL 6.4-8.9 [facility] Prothrombin time (PT)Ordered By: PROVIDER TEMP on 11-05-2023 PT Coag (PPP) [Time] 11.0 s 9.0-12.9 [facility] Comment on above: A hematocrit value g reater than 55% may lead to inaccurate results in coagulation testing. Patients having hematocrit values >55% require a special collection tube for coagulation studies. Please contact the laboratory at [phone] for redraw instructions. RBC Auto (Bld) [#/Vol]Ordere d By: PROVIDER TEMP on 11-05-2023 RBC (Bld) [#/Vol] 4.19 10*6/uL 3.60-5.00 [facility] Serum or plasma albumin/glob ulin mass ratioOrdered By: PROVIDER TEMP on 11-05-2023 Albumin/Globulin [Mass ratio] 1.5 {ratio} [facility] Serum or plasma anion gap de terminationOrdered By: PROVIDER TEMP on 11-05-2023 Anion gap [Moles/Vol] 12.1 mmol/L 6.0-15.0 [facility] Sodium [Moles/volume] in Ser um or PlasmaOrdered By: PROVIDER TEMP on 11-05-2023 Sodium [Moles/Vol] 139 mmol/L 136-145 [facility] Troponin I.cardiac [Mass/vol ume] in Serum or Plasma by Detection limit <= 0.01 ng/Ordered By: Rona Andres on 11-05-2023 Troponin I.cardiac DL <= 0.01 ng/mL [Mass/Vol] 36.1 pg/mL High 0.0-15.0 [facility] Urea nitrogen [Mass/volume] in Serum or PlasmaOrdered By: PROVIDER TEMP on 11-05-2023 Urea nitrogen [Mass/Vol] 20 mg/dL 7-25 [facility] WBC Auto (Bld) [#/Vol]Ordere d By: PROVIDER TEMP on 11-05-2023 WBC (Bld) [#/Vol] 6.7 10*3/uL 3.8-11.6 [facility] Basophils Auto (Bld) [#/Vol] Ordered By: Reji Frausto on 10-29-2023 Basophils (Bld) [#/Vol] 0.1 10*3/uL 0.0-0.2 [facility] Basophils/100 WBC Auto (Bld) Ordered By: Reji Frausto on 10-29-2023 Basophils/100 WBC (Bld) 0.7 % . [facility] Calcium [Mass/volume] in Ser um or PlasmaOrdered By: Reji Frausto on 10-29-2023 Calcium [Mass/Vol] 9.3 mg/dL 8.6-10.3 [facility] Carbon dioxide, total [Moles /volume] in Serum or PlasmaOrdered By: Reji Frausto on 10-29-2023 CO2 [Moles/Vol] 24.3 mmol/L 21.0-31.0 [facility] Chloride [Moles/volume] in S carolyne or PlasmaOrdered By: Reji Frausto on 10-29-2023 Chloride [Moles/Vol] 109 mmol/L High 98-107 [facility] Creatinine [Mass/volume] in Serum or PlasmaOrdered By: Reji Frausto on 10-29-2023 Creatinine [Mass/Vol] 0.91 mg/dL 0.60-1.20 [facility] Eosinophils Auto (Bld) [#/Vo l]Ordered By: Reji Frausto on 10-29-2023 Eosinophils (Bld) [#/Vol] 0.0 10*3/uL 0.0-0.45 [facility] Eosinophils/100 WBC Auto (Bl d)Ordered By: Reji Frausto on 10-29-2023 Eosinophils/100 WBC (Bld) 0.6 % . [facility] Erythrocyte distribution wid th Auto (RBC) [Ratio]Ordered By: Reji Frausto on 10-29-2023 Erythrocyte distribution width (RBC) [Ratio] 13.8 % 11.9-15.3 [facility] Glucose [Mass/volume] in Ser um or PlasmaOrdered By: Reji Frausto on 10-29-2023 Glucose [Mass/Vol] 105 mg/dL High 70-100 [facility] Comment on above: ADA recommended refe rence rangeRandom Glucose Reference Range is dependent on time and content of last meal. Glucose of more than 200 mg/dL in a nonstressed, ambulatory subject supports the diagnosis of Diabetes Mellitus. Hematocrit Auto (Bld) [Volum e fraction]Ordered By: Reji Frausto on 10-29-2023 Hematocrit (Bld) [Volume fraction] 38.2 % 34.0-46.4 [facility] Hemoglobin [Mass/volume] in BloodOrdered By: Reji Frausto on 10-29-2023 Hemoglobin (Bld) [Mass/Vol] 12.9 g/dL 11.8-15.4 [facility] Leukocytes [#/volume] correc kristi for nucleated erythrocytes in Blood by Automated counOrdered By: Reji Frausto on 10-29-2023 WBC corrected for nucl RBC Auto (Bld) [#/Vol] 8.1 10*3/uL 3.8-11.6 [facility] Lymphocytes Auto (Bld) [#/Vo l]Ordered By: Reji Frausto on 10-29-2023 Lymphocytes (Bld) [#/Vol] 1.3 10*3/uL 1.00-4.8 [facility] Lymphocytes/100 WBC Auto (Bl d)Ordered By: Reji Frausto on 10-29-2023 Lymphocytes/100 WBC (Bld) 15.8 % . [facility] MCH Auto (RBC) [Entitic mass ]Ordered By: Reji Frausto on 10-29-2023 MCH (RBC) [Entitic mass] 32.7 pg 24.7-34.3 [facility] MCHC Auto (RBC) [Mass/Vol]Or dered By: Reji Frausto on 10-29-2023 MCHC (RBC) [Mass/Vol] 33.9 g/dL 32.0-35.0 [facility] MCV Auto (RBC) [Entitic vol] Ordered By: Reji Frausto on 10-29-2023 MCV (RBC) [Entitic vol] 96.5 fL 80-100 [facility] Monocytes Auto (Bld) [#/Vol] Ordered By: Reji Frausto on 10-29-2023 Monocytes (Bld) [#/Vol] 0.8 10*3/uL 0.0-0.8 [facility] Monocytes/100 WBC Auto (Bld) Ordered By: Reji Frausto on 10-29-2023 Monocytes/100 WBC (Bld) 9.4 % . [facility] Neutrophils Auto (Bld) [#/Vo l]Ordered By: Reji Frausto on 10-29-2023 Neutrophils (Bld) [#/Vol] 5.9 10*3/uL 1.8-7.7 [facility] Neutrophils/100 WBC Auto (Bl d)Ordered By: Reji Frausto on 10-29-2023 Neutrophils/100 WBC (Bld) 73.5 % . [facility] No Panel InformationOrdered By: Reji Frausto on 10-29-2023 Estimated GFR (CKD-EPI) > 60.0 mL/Min [facility] Creatinine Clearance (Chem 41.47 [facility] Nucleated erythrocytes [Pres ence] in Blood by Automated countOrdered By: Reji Frausto on 10-29-2023 Nucleated RBC Auto Ql (Bld) 0.1 /100{WBC} 0-0.5 [facility] Platelet mean volume Auto (B ld) [Entitic vol]Ordered By: Reji Frausto on 10-29-2023 Platelet mean volume (Bld) [Entitic vol] 8.0 fL 6.3-10.7 [facility] Platelets Auto (Bld) [#/Vol] Ordered By: Reji Frausto on 10-29-2023 Platelets (Bld) [#/Vol] 261 10*3/uL 150-450 [facility] Potassium [Moles/volume] in Serum or PlasmaOrdered By: Reji Frausto on 10-29-2023 Potassium [Moles/Vol] 4.0 mmol/L 3.5-5.1 [facility] RBC Auto (Bld) [#/Vol]Ordere d By: Reji Frausto on 10-29-2023 RBC (Bld) [#/Vol] 3.96 10*6/uL 3.60-5.00 [facility] Serum or plasma anion gap de terminationOrdered By: Reji Frausto on 10-29-2023 Anion gap [Moles/Vol] 8.7 mmol/L 6.0-15.0 [facility] Sodium [Moles/volume] in Ser um or PlasmaOrdered By: Reji Frausto on 10-29-2023 Sodium [Moles/Vol] 138 mmol/L 136-145 [facility] Urea nitrogen [Mass/volume] in Serum or PlasmaOrdered By: Reji Frausto on 10-29-2023 Urea nitrogen [Mass/Vol] 17 mg/dL 7-25 [facility] WBC Auto (Bld) [#/Vol]Ordere d By: Reji Frausto on 10-29-2023 WBC (Bld) [#/Vol] 8.1 10*3/uL 3.8-11.6 [facility] Cholesterol [Mass/volume] in Serum or PlasmaOrdered By: Reji Frausto on 10-28-2023 Cholesterol [Mass/Vol] 241 mg/dL High 140-200 [facility] Comment on above: Chol less than 200 m g/dl low riskChol 201-239 mg/dl borderline riskChol 240 mg/dl and greater high risk Cholesterol in LDL Calc [Mas s/Vol]Ordered By: Reji Frausto on 10-28-2023 Cholesterol in LDL [Mass/Vol] 108 mg/dL High 0-100 [facility] Comment on above: LDL ATP III CLASSIFI CATIONLDL less than 100 mg/dL OptimalLDL 100-129 mg/dL Near or above optimalLDL 130-159 mg/dL Borderline highLDL 160-189 mg/dL HighLDL greater than 189 mg/dL Very high Cholesterol in VLDL Calc [Ma ss/Vol]Ordered By: Reji Frausto on 10-28-2023 Cholesterol in VLDL [Mass/Vol] 20 mg/dL [facility] Serum or plasma high density lipoprotein (HDL) cholesterol measurementOrdered By: Reji Frausto on 10-28-2023 Cholesterol in HDL [Mass/Vol] 112 mg/dL High 23-92 [facility] Comment on above: HDL CHOL ATP-III CLA SSIFICATION Cardiovascular RiskHDL > or equal to 60 mg/dL LOWHDL < 40 mg/dL HIGH Serum or plasma total choles terol/high density lipoprotein (HDL) cholesterol mass ratOrdered By: Reji Frausto on 10-28-2023 Cholesterol.total/Cho lesterol in HDL [Mass ratio] 2.2 {ratio} <5.0 [facility] Triglyceride [Mass/volume] i n Serum or PlasmaOrdered By: Reji Frausto on 10-28-2023 Triglyceride [Mass/Vol] 103 mg/dL 0-149 [facility] Comment on above: TRIG ATP III CLASSIF ICATIONTRIG less than 150 mg/dL NormalTRIG 150-199 mg/dL Borderline highTRIG 200-500 mg/dL High TRIG greater than 500 mg/dL Very highStandard traceable to the Center for Disease Conrtrol and Prevention (CDC) test method. Troponin I.cardiac [Mass/vol ume] in Serum or Plasma by Detection limit <= 0.01 ng/Ordered By: Reij Frausto on 10-28-2023 Troponin I.cardiac DL <= 0.01 ng/mL [Mass/Vol] 45726.4 pg/mL High 0.0-15.0 [facility] Comment on above: Critical Result : Ca lled to and read back by: ELLA SCOTT at: 10/28/2023 05:06:20 by:[id number] Activated partial thrombopla stin time (aPTT) in platelet poor plasma by coagulation aOrdered By: Doe Álvarez on 10-27-2023 aPTT Coag (PPP) [Time] 23.1 s Low 25.1-36.5 [facility] Comment on above: A hematocrit value g reater than 55% may lead to inaccurate results in coagulation testing. Patients having hematocrit values >55% require a special collection tube for coagulation studies. Please contact the laboratory at [phone] for redraw instructions. Alanine aminotransferase [En zymatic activity/volume] in Serum or PlasmaOrdered By: Doe Álvarez on 10-27-2023 ALT [Catalytic activity/Vol] 36 U/L 7-52 [facility] Albumin [Mass/volume] in Ser um or Plasma by Bromocresol green (BCG) dye binding methoOrdered By: Doe Álvarez on 10-27-2023 Albumin BCG dye [Mass/Vol] 4.4 g/dL 3.5-5.7 [facility] Alkaline phosphatase [Enzyma tic activity/volume] in Serum or PlasmaOrdered By: Doe Álvarez 10-27-2023 ALP [Catalytic activity/Vol] 86 U/L 34-104 [facility] Aspartate aminotransferase [ Enzymatic activity/volume] in Serum or PlasmaOrdered By: Doe Álvarez 10-27-2023 AST [Catalytic activity/Vol] 60 U/L High 13-39 [facility] Basophils Auto (Bld) [#/Vol] Ordered By: Doe Álvarez 10-27-2023 Basophils (Bld) [#/Vol] 0.1 10*3/uL 0.0-0.2 [facility] Basophils/100 WBC Auto (Bld) Ordered By: Doe Álvarez 10-27-2023 Basophils/100 WBC (Bld) 1.3 % . [facility] Bilirubin.total [Mass/volume ] in Serum or PlasmaOrdered By: Doe Álvarez 10-27-2023 Bilirubin [Mass/Vol] 0.7 mg/dL 0.3-1.0 [facility] Calcium [Mass/volume] in Ser um or PlasmaOrdered By: Doe Álvarez 10-27-2023 Calcium [Mass/Vol] 10.0 mg/dL 8.6-10.3 [facility] Carbon dioxide, total [Moles /volume] in Serum or PlasmaOrdered By: Doe Álvarez on 10-27-2023 CO2 [Moles/Vol] 21.0 mmol/L 21.0-31.0 [facility] Chloride [Moles/volume] in S carolyne or PlasmaOrdered By: Doe Álvarez on 10-27-2023 Chloride [Moles/Vol] 107 mmol/L 98-107 [facility] Creatine kinase [Enzymatic a ctivity/volume] in Serum or PlasmaOrdered By: Doe Álvarez on 10-27-2023 CK [Catalytic activity/Vol] 74 U/L 30-223 [facility] Creatinine [Mass/volume] in Serum or PlasmaOrdered By: Doe Álvarez on 10-27-2023 Creatinine [Mass/Vol] 1.06 mg/dL 0.60-1.20 [facility] Eosinophils Auto (Bld) [#/Vo l]Ordered By: Doe Álvarez on 10-27-2023 Eosinophils (Bld) [#/Vol] 0.1 10*3/uL 0.0-0.45 [facility] Eosinophils/100 WBC Auto (Bl d)Ordered By: Doe Álvarez on 10-27-2023 Eosinophils/100 WBC (Bld) 0.7 % . [facility] Erythrocyte distribution wid th Auto (RBC) [Ratio]Ordered By: Doe Álvarez 10-27-2023 Erythrocyte distribution width (RBC) [Ratio] 14.0 % 11.9-15.3 [facility] Globulin Calc (S) [Mass/Vol] Ordered By: Doe Álvarez on 10-27-2023 Globulin (S) [Mass/Vol] 2.7 g/dL [facility] Glucose [Mass/volume] in Ser um or PlasmaOrdered By: Doe Álvarez on 10-27-2023 Glucose [Mass/Vol] 166 mg/dL High 70-100 [facility] Comment on above: ADA recommended refe rence rangeRandom Glucose Reference Range is dependent on time and content of last meal. Glucose of more than 200 mg/dL in a nonstressed, ambulatory subject supports the diagnosis of Diabetes Mellitus. Hematocrit Auto (Bld) [Volum e fraction]Ordered By: Doe Álvarez on 10-27-2023 Hematocrit (Bld) [Volume fraction] 42.6 % 34.0-46.4 [facility] Hemoglobin [Mass/volume] in BloodOrdered By: Doe Álvarez on 10-27-2023 Hemoglobin (Bld) [Mass/Vol] 14.5 g/dL 11.8-15.4 [facility] INR in Platelet poor plasma by Coagulation assayOrdered By: Doe Álvarez on 10-27-2023 INR Coag (PPP) [Relative time] 0.9 {INR} [facility] Comment on above: INR Therapeutic [...] RBC Auto (Bld) [#/Vol] 8.6 10*3/uL 3.8-11.6 [facility] Lymphocytes Auto (Bld) [#/Vo l]Ordered By: Doe Álvarez on 10-27-2023 Lymphocytes (Bld) [#/Vol] 2.2 10*3/uL 1.00-4.8 [facility] Lymphocytes/100 WBC Auto (Bl d)Ordered By: Doe Álvarez on 10-27-2023 Lymphocytes/100 WBC (Bld) 25.7 % . [facility] MCH Auto (RBC) [Entitic mass ]Ordered By: Doe Álvarez on 10-27-2023 MCH (RBC) [Entitic mass] 32.6 pg 24.7-34.3 [facility] MCHC Auto (RBC) [Mass/Vol]Or dered By: Doe Álvarez on 10-27-2023 MCHC (RBC) [Mass/Vol] 34.1 g/dL 32.0-35.0 [facility] MCV Auto (RBC) [Entitic vol] Ordered By: Doe Álvarez on 10-27-2023 MCV (RBC) [Entitic vol] 95.7 fL 80-100 [facility] Monocyte distribution width [Entitic volume] in Blood by AutomatedOrdered By: Doe Álvarez on 10-27-2023 Monocyte distribution width Auto (Bld) [Entitic vol] 20.20 % High 0.00-20.00 [facility] Comment on above: For adults in ED, MD W > 20.0 may be associated with a higher risk of sepsis during the first 12 hrs of hospital admission Monocytes Auto (Bld) [#/Vol] Ordered By: Doe Álvarez on 10-27-2023 Monocytes (Bld) [#/Vol] 0.7 10*3/uL 0.0-0.8 [facility] Monocytes/100 WBC Auto (Bld) Ordered By: Doe Álvarez on 10-27-2023 Monocytes/100 WBC (Bld) 8.7 % . [facility] Natriuretic peptide B [Mass/ Vol]Ordered By: Doe Álvarez on 10-27-2023 Natriuretic peptide B (Bld) [Mass/Vol] 124.0 pg/mL High 5-100 [facility] Neutrophils Auto (Bld) [#/Vo l]Ordered By: Doe Álvarez on 10-27-2023 Neutrophils (Bld) [#/Vol] 5.5 10*3/uL 1.8-7.7 [facility] Neutrophils/100 WBC Auto (Bl d)Ordered By: Doe Álvarez on 10-27-2023 Neutrophils/100 WBC (Bld) 63.6 % . [facility] No Panel InformationOrdered By: Doe Álvarez on 10-27-2023 Estimated GFR (CKD-EPI) 52.124 mL/Min [facility] Creatinine Clearance (Chem 35.04 [facility] Nucleated erythrocytes [Pres ence] in Blood by Automated countOrdered By: Doe Álvarez on 10-27-2023 Nucleated RBC Auto Ql (Bld) 0.1 /100{WBC} 0-0.5 [facility] Platelet mean volume Auto (B ld) [Entitic vol]Ordered By: Doe Álvarez on 10-27-2023 Platelet mean volume (Bld) [Entitic vol] 7.7 fL 6.3-10.7 [facility] Platelets Auto (Bld) [#/Vol] Ordered By: Doe Álvarez on 10-27-2023 Platelets (Bld) [#/Vol] 294 10*3/uL 150-450 [facility] Potassium [Moles/volume] in Serum or PlasmaOrdered By: Doe Álvarez on 10-27-2023 Potassium [Moles/Vol] 3.7 mmol/L 3.5-5.1 [facility] Protein [Mass/volume] in Ser um or PlasmaOrdered By: Doe Álvarez on 10-27-2023 Protein [Mass/Vol] 7.1 g/dL 6.4-8.9 [facility] Prothrombin time (PT)Ordered By: Doe Álvarez on 10-27-2023 PT Coag (PPP) [Time] 10.7 s 9.0-12.9 [facility] Comment on above: A hematocrit value g reater than 55% may lead to inaccurate results in coagulation testing. Patients having hematocrit values >55% require a special collection tube for coagulation studies. Please contact the laboratory at [phone] for redraw instructions. RBC Auto (Bld) [#/Vol]Ordere d By: Doe Álvarez on 10-27-2023 RBC (Bld) [#/Vol] 4.45 10*6/uL 3.60-5.00 [facility] Serum or plasma albumin/glob ulin mass ratioOrdered By: Doe Álvarez on 10-27-2023 Albumin/Globulin [Mass ratio] 1.6 {ratio} [facility] Serum or plasma anion gap de terminationOrdered By: Doe Álvarez on 10-27-2023 Anion gap [Moles/Vol] 13.7 mmol/L 6.0-15.0 [facility] Sodium [Moles/volume] in Ser um or PlasmaOrdered By: Doe Álvarez on 10-27-2023 Sodium [Moles/Vol] 138 mmol/L 136-145 [facility] Troponin I.cardiac [Mass/vol ume] in Serum or Plasma by Detection limit <= 0.01 ng/Ordered By: Doe Álvarez on 10-27-2023 Troponin I.cardiac DL <= 0.01 ng/mL [Mass/Vol] 10.2 pg/mL 0.0-15.0 [facility] Urea nitrogen [Mass/volume] in Serum or PlasmaOrdered By: Doe Álvarez on 10-27-2023 Urea nitrogen [Mass/Vol] 17 mg/dL 7-25 [facility] WBC Auto (Bld) [#/Vol]Ordere d By: Doe Álvarez on 10-27-2023 WBC (Bld) [#/Vol] 8.6 10*3/uL 3.8-11.6 [facility] Glucose Glucometer (BldC) [M ass/Vol]Ordered By: Branden Du on 05-06-2023 Glucose [Mass/Vol] 93 mg/dL [facility] Comment on above: Random Glucose Refer ence Range is dependent on time and content of last meal. Glucose of more than 200 mg/dL in a nonstressed, ambulatory subject supports the diagnosis of Diabetes Mellitus. Urinalysis - DIPSTICKon 06-0 Appearance (U) clear [employer] Other Bilirubin Ql (U) Negative [employer] Other Color (U) light yellow [employer] Other Glucose Ql (U) Negative [employer] Other Hemoglobin Ql (U) Negative [employer] Other Ketones Ql (U) Negative [employer] Other Leukocyte esterase Test strip Ql (U) Negative [employer] Other Nitrite Ql (U) Negative [employer] Other pH (U) 5.0 [pH] [employer] Other Protein Ql (U) Negative [employer] Other Specific gravity (U) [Rel density] 1.005 [employer] Other Urobilinogen (U) [Mass/Vol] 0.5 mg/dL [facility] [employer] Other Urinalysis - DIPSTICK [facility] [employer] Other CBC AUTO DIFFon 05-21-2022 BASO # 0.0 103/ul Normal 0.0-0.1 [facility] Comment on above: Performed By: #### C BC #### [facility] [address] [place] [address] Dr. Arlyn Chan Basophils/100 WBC (Bld) 0.6 % Normal 0.2-2.0 [facility] Comment on above: Performed By: #### C BC #### [facility] [address] [place] [address] Dr. Arlyn Chan EO # 0.1 103/ul Normal 0.0-0.7 [facility] Comment on above: Performed By: #### C BC #### [facility] [address] [place] [address] Dr. Arlyn Chan Eosinophils/100 WBC (Bld) 1.1 % Normal 0.9-7.0 [facility] Comment on above: Performed By: #### C BC #### [facility] [address] [place] [address] Dr. Arlyn Chan Erythrocyte distribution width (RBC) [Ratio] 13.6 % Normal 11.0-15.0 [facility] Comment on above: Performed By: #### C BC #### [facility] [address] [place] [address] Dr. Arlyn Chan Hematocrit (Bld) [Volume fraction] 44.3 % Normal 36.0-48.0 [facility] Comment on above: Performed By: #### C BC #### [facility] [address] [place] [address] Dr. Arlyn Chan Hemoglobin (Bld) [Mass/Vol] 14.8 g/dL Normal 12.0-16.0 [facility] Comment on above: Performed By: #### C BC #### [facility] [address] [place] [address] Dr. Arlyn Chan IG # 0.00 10e3/ul Normal 0.00-0.03 [facility] Comment on above: Performed By: #### C BC #### [facility] [address] [place] [address] Dr. Arlyn Chan IG % 0.0 % Normal 0.0-0.5 [facility] Comment on above: Performed By: #### C BC #### [facility] [address] [place] [address] Dr. Arlyn Chan LYMPH # 1.7 103/ul Normal 1.2-3.8 [facility] Comment on above: Performed By: #### C BC #### [facility] [address] [place] [address] Dr. Arlyn Chan Lymphocytes/100 WBC (Bld) 31.1 % Normal 20.5-60.0 [facility] Comment on above: Performed By: #### C BC #### [facility] [address] [place] [address] Dr. Arlyn Chan MANUAL DIFF REQ NO Normal [facility] Comment on above: Performed By: #### C BC #### [facility] [address] [place] [address] Dr. Arlyn Chan MCH (RBC) [Entitic mass] 31.9 pg Normal 26.7-34.0 [facility] Comment on above: Performed By: #### C BC #### [facility] [address] [place] [address] Dr. Arlyn Chan MCHC (RBC) [Mass/Vol] 33.4 g/dL Normal 29.9-35.2 [facility] Comment on above: Performed By: #### C BC #### [facility] [address] [place] [address] Dr. Arlny Chan MCV (RBC) [Entitic vol] 95.5 fL Normal 81.0-99.0 [facility] Comment on above: Performed By: #### C BC #### [facility] [address] [place] [address] Dr. Arlyn Chan MONO # 0.5 103/ul Normal 0.3-0.8 [facility] Comment on above: Performed By: #### C BC #### [facility] [address] [place] [address] Dr. Arlyn Chan Monocytes/100 WBC (Bld) 8.8 % Normal 1.7-12.0 [facility] Comment on above: Performed By: #### C BC #### [facility] [address] [place] [address] Dr. Arlyn Chan NEUT # 3.1 103/ul Normal 1.4-6.5 [facility] Comment on above: Performed By: #### C BC #### [facility] [address] [place] [address] Dr. Arlyn Chan Neutrophils/100 WBC (Bld) 58.4 % Normal 43.0-75.0 [facility] Comment on above: Performed By: #### C BC #### [facility] [address] [place] [address] Dr. Arlyn Chan Platelet mean volume (Bld) [Entitic vol] 10.0 fL Normal 9.5-13.5 [facility] Comment on above: Performed By: #### C BC #### [facility] [address] [place] [address] Dr. Arlyn Chan PLT 242 103/ul Normal 150-450 [facility] Comment on above: Performed By: #### C BC #### [facility] [address] [place] [address] Dr. Arlyn Chan RBC 4.64 106/ul Normal 4.20-5.40 [facility] Comment on above: Performed By: #### C BC #### [facility] [address] [place] [address] Dr. Arlyn Chan WBC 5.4 103/ul Normal 4.0-11.0 [facility] Comment on above: Performed By: #### C BC #### [facility] [address] [place] [address] Dr. Arlyn Chan PROF CHEM 8 (BAS METB)on Anion gap [Moles/Vol] 13.9 mmol/L Normal [facility] Comment on above: Performed By: #### H STROPN, BMP #### [facility] [address] [address] [address] Arlyn Chan Calcium [Mass/Vol] 9.4 mg/dL Normal 8.5-10.1 [facility] Comment on above: Performed By: #### H STROPN, BMP #### [facility] [address] [address] [address] Arlyn Chan Chloride [Moles/Vol] 105 mmol/L Normal 98-107 [facility] Comment on above: Performed By: #### H STROPN, BMP #### [facility] [address] [address] [address] Arlyn Chan CO2 [Moles/Vol] 24.3 mmol/L Normal 21.0-32.0 [facility] Comment on above: Performed By: #### H STROPN, BMP #### [facility] [address] [address] [address] Arlyn Chan Creatinine [Mass/Vol] 0.76 mg/dL Normal 0.55-1.02 [facility] Comment on above: Performed By: #### H STROPN, BMP #### [facility] [address] [address] [address] Arlyn Chan EGFR-AF WELSH >60 Normal >=60 [facility] Comment on above: Performed By: #### H STROPN, BMP #### [facility] [address] [address] [address] Arlyn Chan EGFR-NON AF WELSH >60 Normal >=60 [facility] Comment on above: Performed By: #### H STROPN, BMP #### [facility] [address] [address] [address] Arlyn Chan Glucose [Mass/Vol] 96 mg/dL Normal 74-106 [facility] Comment on above: Performed By: #### H STROPN, BMP #### [facility] [address] [address] [address] Arlyn Chan Potassium [Moles/Vol] 4.2 mmol/L Normal 3.5-5.1 [facility] Comment on above: Performed By: #### H STROPN, BMP #### [facility] [address] [address] [address] Arlyn Chan Sodium [Moles/Vol] 139 mmol/L Normal 136-145 [facility] Comment on above: Performed By: #### H STROPN, BMP #### [facility] [address] [address] [address] Arlyn Chan Urea nitrogen [Mass/Vol] 21.0 mg/dL Critically high 7.0-18.0 [facility] Comment on above: Performed By: #### H STROPN, BMP #### [facility] [address] [address] [address] Arlyn Chan Urea nitrogen/Creatinine [Mass ratio] 27.6 mg/mg Normal [facility] Comment on above: Performed By: #### H STROPN, BMP #### [facility] [address] [address] [address] Arlyn Chan Progress Noteson 05-21-2022 Sheet [employer] Authentication Interface Message Text EMERGENCY TRIAGE, TREAT AND TRANSPORT (ET3) DOCUMENTATION OF TELEHEALTH VISIT Date / Time: 05/21/2022944 Name: Genny Barboza : 1940 SSN: (Not on file) EMS Agency: [facility] [x] Verbal consent obtained [] [...] the typically is not available at a [place] primary care physician's office. Patient declined using ambulance go to the ER, and her daughter who was present on scene will drive her the 4 minutes will take to get to the [facility]. I advised her to call 911 [...] Completed by: Sudheer Haro MD Normal [facility] TROPONIN, HIGH SENSITIVITYon 05-21-2022 HSTROP 5.9 pg/mL Normal 4.0-51.3 [facility] Comment on above: Result Comment: CUT- OFF POINTS HAVE BEEN ESTABLISHED BASED ON THE FOURTH UNIVERSAL DEFINITIONS OF MYOCARDIAL INFARCTION. THE UPPER REFERENCE LIMIT (URL) OF TROPONIN, DEFINED THE 99TH PERCENTILE OF cTnI DISTRIBUTION IN A REFERENCE POPULATION, HAS BEEN CONFIRMED THE DECISION THRESHOLD FOR OR DIAGNOSIS. Performed By: #### H YURI, BMP #### [facility] [address] [place] [address] Dr. Arlyn Chan MG MAMM SCREEN 3D VINNY CADon 02-08-2022 MG MAMM SCREEN 3D VINNY CAD Patient: GENNY BARBOZA Exam Date: 02/08/2022 : 1940 Gender:F Ordering : DR BRANDEN DU D.O. Admission #: [id number] Family : Order #: [id number] CLICK HERE TO VIEW EXAM RADIOLOGY REPORT [...] bowel resection Family Cancers None LOCATION: [facility] BREAST COMPOSITION: Scattered areas fibroglandular density. [...] MD on 02/08/2022 at 14:06 Normal [facility] CT CHEST WO CONon 08-11-2021 CT [...] by: JOAQUIN SOTO Date: 2021-08-11 17:29 Normal [facility] Vital Signs Date Time Vital Sign Value Performing Clinician Facility 12-29-2024 11:27-0400 Body weight 65 kg Branden Ball DO Work Phone: [facility] 12-03-2024 11:45-0400 Body height 154.94 cm Branden Ball DO Work Phone: [phone] [place] [address] 12-03-2024 11:45-0400 Body mass index (BMI) [Ratio] 26.4 kg/m2 Branden Ball DO Work Phone: [facility] 12-03-2024 11:45-0400 Body weight 63.55 kg Branden Ball DO Work Phone: [facility] 12-03-2024 11:45-0400 Diastolic blood pressure 78 mm[Hg] Branden Ball DO Work Phone: [facility] 12-03-2024 11:45-0400 Heart rate 61 /min Branden Ball DO Work Phone: [facility] 12-03-2024 11:45-0400 Respiratory rate 12 /min Branden Ball DO Work Phone: [facility] 12-03-2024 11:45-0400 Systolic blood pressure 129 mm[Hg] Branden Ball DO Work Phone: [facility] 12-01-2024 13:27-0400 Body height 154.94 cm Branden Ball DO Work Phone: [facility] 12-01-2024 13:27-0400 Body mass index (BMI) [Ratio] 26 kg/m2 Branden Ball DO Work Phone: [facility] 12-01-2024 13:27-0400 Body weight 62.59 kg Branden Ball DO Work Phone: [facility] 12-01-2024 13:27-0400 Diastolic blood pressure 72 mm[Hg] Branden Ball DO Work Phone: [facility] 12-01-2024 13:27-0400 Heart rate 64 /min Branden Ball DO Work Phone: [facility] 12-01-2024 13:27-0400 Systolic blood pressure 111 mm[Hg] Branden Ball DO Work Phone: [facility] 11-23-2024 12:00-0400 Diastolic blood pressure 78 mm[Hg] Branden Ball DO Work Phone: [facility] 11-23-2024 12:00-0400 Heart rate 71 /min Branden Ball DO Work Phone: [facility] 11-23-2024 12:00-0400 Respiratory rate 18 /min Branden Ball DO Work Phone: [facility] 11-23-2024 12:00-0400 SaO2% (BldA) [Mass fraction] 100 % Branden Ball DO Work Phone: [facility] 11-23-2024 12:00-0400 Systolic blood pressure 126 mm[Hg] Branden Ball DO Work Phone: [facility] 11-23-2024 09:00-0400 Body temperature 98 [degF] Branden Ball DO Work Phone: [facility] 11-23-2024 04:26-0400 Body weight 63.8 kg Branden Ball DO Work Phone: [facility] 11-22-2024 23:10-0400 Body height 154.94 cm Branden Ball DO Work Phone: [facility] 11-22-2024 23:10-0400 Body temperature 98 [degF] Branden Ball DO Work Phone: [facility] 11-22-2024 23:10-0400 Body weight 64.4 kg Branden Ball DO Work Phone: [facility] 11-22-2024 23:10-0400 Diastolic blood pressure 75 mm[Hg] Branden Ball DO Work Phone: [facility] 11-22-2024 23:10-0400 Heart rate 64 /min Branden Ball DO Work Phone: [facility] 11-22-2024 23:10-0400 Respiratory rate 18 /min Branden Ball DO Work Phone: [facility] 11-22-2024 23:10-0400 SaO2% (BldA) [Mass fraction] 98 % Branden Ball DO Work Phone: [facility] 11-22-2024 23:10-0400 Systolic blood pressure 138 mm[Hg] Branden Ball DO Work Phone: [facility] 11-19-2024 10:05-0400 Body height 154.94 cm Branden Ball DO Work Phone: [facility] 11-19-2024 10:05-0400 Body mass index (BMI) [Ratio] 26.7 kg/m2 Branden Ball DO Work Phone: [facility] 11-19-2024 10:05-0400 Body weight 64.2 kg Branden Ball DO Work Phone: [facility] 11-16-2024 15:15-0400 Body height 154.94 cm Branden Ball DO Work Phone: [facility] 11-16-2024 15:15-0400 Body mass index (BMI) [Ratio] 27 kg/m2 Branden Ball DO Work Phone: [facility] 11-16-2024 15:15-0400 Body weight 64.92 kg Branden Ball DO Work Phone: [facility] 11-16-2024 15:15-0400 Diastolic blood pressure 81 mm[Hg] Branden Ball DO Work Phone: [facility] 11-16-2024 15:15-0400 Heart rate 78 /min Branden Ball DO Work Phone: [facility] 11-16-2024 15:15-0400 Respiratory rate 12 /min Branden Ball DO Work Phone: [facility] 11-16-2024 15:15-0400 Systolic blood pressure 134 mm[Hg] Branden Ball DO Work Phone: [facility] 11-04-2024 14:04-0400 Body height 154.94 cm Branden Ball DO Work Phone: [facility] 11-04-2024 14:04-0400 Body mass index (BMI) [Ratio] 26.9 kg/m2 Branden Ball DO Work Phone: [facility] 11-04-2024 14:04-0400 Body weight 64.58 kg Branden Ball DO Work Phone: [facility] 11-04-2024 14:04-0400 Diastolic blood pressure 71 mm[Hg] Branden Ball DO Work Phone: [facility] 11-04-2024 14:04-0400 Heart rate 71 /min Branden Ball DO Work Phone: [facility] 11-04-2024 14:04-0400 Respiratory rate 12 /min Branden Ball DO Work Phone: [facility] 11-04-2024 14:04-0400 Systolic blood pressure 112 mm[Hg] Branden Ball DO Work Phone: [facility] 11-03-2024 14:04-0400 Body height 154.9 cm Vanessa Dave [employer] Work Phone: [facility] 11-03-2024 14:04-0400 Body mass index (BMI) [Ratio] 27.21 kg/m2 Vanessa Dave TICK SEWER-TERRITORY SALES CONSULTANT Work Phone: [facility] 11-03-2024 14:04-0400 Body weight 65.32 kg Vanessa Dave TICK SEWER-TERRITORY SALES CONSULTANT Work Phone: [facility] 11-03-2024 14:04-0400 Diastolic blood pressure 60 mm[Hg] Vanessa Dave TICK SEWER-TERRITORY SALES CONSULTANT Work Phone: [facility] 11-03-2024 14:04-0400 Heart rate 60 /min Vanessa Dave TICK SEWER-TERRITORY SALES CONSULTANT Work Phone: [facility] 11-03-2024 14:04-0400 Systolic blood pressure 102 mm[Hg] Vanessa Dave TICK SEWER-TERRITORY SALES CONSULTANT Work Phone: [facility] 09-29-2024 14:31-0400 Body height 154.9 cm Vanessa Dave TICK SEWER-TERRITORY SALES CONSULTANT Work Phone: [facility] 09-29-2024 14:31-0400 Body mass index (BMI) [Ratio] 26.72 kg/m2 Vanessa Dave TICK SEWER-TERRITORY SALES CONSULTANT Work Phone: [facility] 09-29-2024 14:31-0400 Body weight 64.14 kg Vanessa Dave TICK SEWER-TERRITORY SALES CONSULTANT Work Phone: [facility] 09-29-2024 14:31-0400 Diastolic blood pressure 80 mm[Hg] Vanessa Dave TICK SEWER-TERRITORY SALES CONSULTANT Work Phone: [facility] 09-29-2024 14:31-0400 Heart rate 64 /min Vanessa Dave TICK SEWER-TERRITORY SALES CONSULTANT Work Phone: [facility] 09-29-2024 14:31-0400 Systolic blood pressure 140 mm[Hg] Vanessa Dave TICK SEWER-TERRITORY SALES CONSULTANT Work Phone: [facility] 09-29-2024 13:18-0400 Diastolic blood pressure 88 mm[Hg] Branden Ball DO Work Phone: [facility] 09-29-2024 13:18-0400 Systolic blood pressure 152 mm[Hg] Branden Ball DO Work Phone: [facility] 09-29-2024 13:15-0400 Body height 154.94 cm Branden Ball DO Work Phone: [facility] 09-29-2024 13:15-0400 Body mass index (BMI) [Ratio] 26.4 kg/m2 Branden Ball DO Work Phone: [facility] 09-29-2024 13:15-0400 Body weight 63.5 kg Branden Ball DO Work Phone: [facility] 09-29-2024 13:15-0400 Heart rate 60 /min Branden Ball DO Work Phone: [facility] 09-29-2024 13:15-0400 Respiratory rate 20 /min Branden Ball DO Work Phone: [facility] 09-29-2024 13:15-0400 SaO2% (BldA) [Mass fraction] 98 % Branden Ball DO Work Phone: [facility] 08-19-2024 13:31-0400 Body height 154.94 cm [facility] 08-19-2024 13:31-0400 Body mass index (BMI) [Ratio] 26.6 kg/m2 [facility] 08-19-2024 13:31-0400 Body weight 64.12 kg [facility] 08-19-2024 13:31-0400 Diastolic blood pressure 80 mm[Hg] [facility] 08-19-2024 13:31-0400 Heart rate 84 /min [facility] 08-19-2024 13:31-0400 Respiratory rate 12 /min [facility] 08-19-2024 13:31-0400 SaO2% (BldA) [Mass fraction] 99 % [facility] 08-19-2024 13:31-0400 Systolic blood pressure 127 mm[Hg] [facility] 08-05-2024 13:50-0400 Body height 154.9 cm Vanessa Dave APRN-TERRITORY SALES CONSULTANT Work Phone: [facility] 08-05-2024 13:50-0400 Body mass index (BMI) [Ratio] 27.4 kg/m2 Vanessa Dave TICK SEWER-TERRITORY SALES CONSULTANT Work Phone: [facility] 08-05-2024 13:50-0400 Body weight 65.77 kg Vanessa Dave TICK SEWER-TERRITORY SALES CONSULTANT Work Phone: [facility] 08-05-2024 13:50-0400 Diastolic blood pressure 70 mm[Hg] Vanessa Dave TICK SEWER-TERRITORY SALES CONSULTANT Work Phone: [facility] 08-05-2024 13:50-0400 Heart rate 72 /min Vanessa Dave TICK SEWER-TERRITORY SALES CONSULTANT Work Phone: [facility] 08-05-2024 13:50-0400 Systolic blood pressure 122 mm[Hg] Vanessa Dave TICK SEWER-TERRITORY SALES CONSULTANT Work Phone: [facility] 07-20-2024 11:18-0400 Body height 154.94 cm [facility] 07-20-2024 11:18-0400 Body mass index (BMI) [Ratio] 26.4 kg/m2 [facility] 07-20-2024 11:18-0400 Body weight 63.5 kg [facility] 07-20-2024 11:18-0400 Diastolic blood pressure 86 mm[Hg] [facility] 07-20-2024 11:18-0400 Heart rate 63 /min [facility] 07-20-2024 11:18-0400 Systolic blood pressure 138 mm[Hg] [facility] 05-27-2024 11:23-0500 Body height 154.9 cm Inderjit Frausto DO Work Phone: [facility] 05-27-2024 11:23-0500 Body mass index (BMI) [Ratio] 27.02 kg/m2 Inderjit Frausto DO Work Phone: [facility] 05-27-2024 11:23-0500 Body weight 64.86 kg Inderjit Frausto DO Work Phone: [facility] 05-27-2024 11:23-0500 Diastolic blood pressure 72 mm[Hg] Inderjit Frausto DO Work Phone: [facility] 05-27-2024 11:23-0500 Heart rate 60 /min Inderjit Frausto DO Work Phone: [facility] 05-27-2024 11:23-0500 Systolic blood pressure 110 mm[Hg] Inderjit Frausto DO Work Phone: [facility] 05-12-2024 13:38-0500 Body height 154.94 cm [facility] 05-12-2024 13:38-0500 Body mass index (BMI) [Ratio] 26.4 kg/m2 [facility] 05-12-2024 13:38-0500 Body weight 63.5 kg [facility] 05-12-2024 13:38-0500 Diastolic blood pressure 85 mm[Hg] [facility] 05-12-2024 13:38-0500 Heart rate 68 /min [facility] 05-12-2024 13:38-0500 Respiratory rate 12 /min [facility] 05-12-2024 13:38-0500 Systolic blood pressure 128 mm[Hg] [facility] 03-12-2024 10:45-0500 Body height 154.94 cm [facility] 03-12-2024 10:45-0500 Body mass index (BMI) [Ratio] 27 kg/m2 [facility] 03-12-2024 10:45-0500 Body weight 64.86 kg [facility] 03-12-2024 10:45-0500 Diastolic blood pressure 66 mm[Hg] [facility] 03-12-2024 10:45-0500 Heart rate 60 /min [facility] 03-12-2024 10:45-0500 Respiratory rate 20 /min [facility] 03-12-2024 10:45-0500 SaO2% (BldA) [Mass fraction] 98 % [facility] 03-12-2024 10:45-0500 Systolic blood pressure 156 mm[Hg] [facility] 03-11-2024 13:04-0500 Body height 154.94 cm [facility] 03-11-2024 13:04-0500 Body mass index (BMI) [Ratio] 27.8 kg/m2 [facility] 03-11-2024 13:04-0500 Body weight 66.9 kg [facility] 03-09-2024 16:23-0500 Body height 154.94 cm [facility] 03-09-2024 16:23-0500 Body mass index (BMI) [Ratio] 27.8 kg/m2 [facility] 03-09-2024 16:23-0500 Body weight 66.79 kg [facility] 03-09-2024 16:23-0500 Diastolic blood pressure 81 mm[Hg] [facility] 03-09-2024 16:23-0500 Heart rate 70 /min [facility] 03-09-2024 16:23-0500 Respiratory rate 12 /min [facility] 03-09-2024 16:23-0500 Systolic blood pressure 157 mm[Hg] [facility] 12-20-2023 10:40-0400 Body height 154.9 cm Inderjit Frausto DO Work Phone: [facility] 12-20-2023 10:40-0400 Body mass index (BMI) [Ratio] 27.02 kg/m2 Inderjit Frausto DO Work Phone: [facility] 12-20-2023 10:40-0400 Body weight 64.86 kg Inderjit Frausto DO Work Phone: [facility] 12-20-2023 10:40-0400 Diastolic blood pressure 86 mm[Hg] Inderjit Frausto DO Work Phone: [facility] 12-20-2023 10:40-0400 Heart rate 57 /min Inderjit Frausto DO Work Phone: [facility] 12-20-2023 10:40-0400 Systolic blood pressure 120 mm[Hg] Inderjit Frausto DO Work Phone: [facility] 12-12-2023 13:21-0400 Body height 154.94 cm FALKITA Álvarez Work Phone: [facility] 12-12-2023 13:21-0400 Body mass index (BMI) [Ratio] 26.6 kg/m2 FLAKITA Álvarez Work Phone: [facility] 12-12-2023 13:21-0400 Body weight 64 kg PA-C Doe Álvarez Work Phone: [facility] 12-04-2023 15:49-0400 Body height 154.94 cm PA-C Doe Álvarez Work Phone: [facility] 12-04-2023 15:49-0400 Body mass index (BMI) [Ratio] 26.9 kg/m2 PA-C Doe Álvarez Work Phone: [facility] 12-04-2023 15:49-0400 Body weight 64.58 kg PA-C Doe Álvarez Work Phone: [facility] 12-04-2023 15:49-0400 Diastolic blood pressure 83 mm[Hg] PA-C Doe Álvarez Work Phone: [facility] 12-04-2023 15:49-0400 Heart rate 71 /min PA-C Doe Álvarez Work Phone: [facility] 12-04-2023 15:49-0400 Respiratory rate 12 /min PA-C Doe Álvarez Work Phone: [facility] 12-04-2023 15:49-0400 Systolic blood pressure 151 mm[Hg] PA-C Doe Álvarez Work Phone: [facility] 11-12-2023 11:55-0400 Body height 154.94 cm PA-C Doe Álvarez Work Phone: [facility] 11-12-2023 11:55-0400 Body mass index (BMI) [Ratio] 27.3 kg/m2 PA-C Doe Álvarez Work Phone: [facility] 11-12-2023 11:55-0400 Body weight 65.48 kg PA-C Doe Álvarez Work Phone: [facility] 11-12-2023 11:55-0400 Diastolic blood pressure 84 mm[Hg] PA-C Doe Álvarez Work Phone: [facility] 11-12-2023 11:55-0400 Heart rate 57 /min IGNACAI-C Doe Álvarez Work Phone: [facility] 11-12-2023 11:55-0400 Respiratory rate 12 /min PA-C Doe Álvarez Work Phone: [facility] 11-12-2023 11:55-0400 Systolic blood pressure 144 mm[Hg] PA-C Doe Álvarez Work Phone: [facility] 11-07-2023 10:05-0400 Body height 154.9 cm Inderjit Frausto DO Work Phone: [facility] 11-07-2023 10:05-0400 Body mass index (BMI) [Ratio] 26.83 kg/m2 Inderjit Frausto DO Work Phone: [facility] 11-07-2023 10:05-0400 Body weight 64.41 kg Inderjit Frausto DO Work Phone: [facility] 11-07-2023 10:05-0400 Diastolic blood pressure 68 mm[Hg] Inderjit Frausto DO Work Phone: [facility] 11-07-2023 10:05-0400 Heart rate 82 /min Inderjit Frausto DO Work Phone: [facility] 11-07-2023 10:05-0400 Systolic blood pressure 118 mm[Hg] Inderjit Frausto DO Work Phone: [facility] 11-05-2023 11:37-0400 Diastolic blood pressure 61 mm[Hg] IGNACIA-C Doe Álvarez Work Phone: [facility] 11-05-2023 11:37-0400 Heart rate 63 /min PA-C Doe Álvarez Work Phone: [facility] 11-05-2023 11:37-0400 Respiratory rate 20 /min PA-C Doe Álvarez Work Phone: [facility] 11-05-2023 11:37-0400 SaO2% (BldA) [Mass fraction] 98 % PA-C Doe Álvarez Work Phone: [facility] 11-05-2023 11:37-0400 Systolic blood pressure 143 mm[Hg] PA-C Doechanel Álvarez Work Phone: [facility] 11-05-2023 09:10-0400 Body temperature 97.8 [degF] PA-C Doe Álvarez Work Phone: [facility] 11-05-2023 07:18-0400 Body height 154.94 cm PA-C Doe Álvarez Work Phone: [facility] 11-05-2023 07:18-0400 Body weight 65.77 kg PA-C Doe Álvarez Work Phone: [facility] 10-29-2023 16:00-0400 Body temperature 98.2 [degF] PA-C Doe Álvarez Work Phone: [facility] 10-29-2023 16:00-0400 Diastolic blood pressure 88 mm[Hg] PA-C Doe Álvarez Work Phone: [facility] 10-29-2023 16:00-0400 Heart rate 58 /min PA-C Doe Álvarez Work Phone: [facility] 10-29-2023 16:00-0400 Respiratory rate 16 /min PA-C Doechanel Álvarez Work Phone: [facility] 10-29-2023 16:00-0400 SaO2% (BldA) [Mass fraction] 96 % PA-C Doechanel Álvarez Work Phone: [facility] 10-29-2023 16:00-0400 Systolic blood pressure 140 mm[Hg] PA-C Doechanel Álvarez Work Phone: [facility] 10-29-2023 06:00-0400 Body weight 65.6 kg PA-C Doe Álvarez Work Phone: [facility] 10-29-2023 06:00-0400 Inhaled oxygen flow rate 2 L/min PA-C Doe Álvarez Work Phone: [facility] 10-27-2023 21:42-0400 Body height 154.94 cm PA-C Doe Álvarez Work Phone: [facility] 10-27-2023 19:05-0400 Diastolic blood pressure 64 mm[Hg] PA-C Doe Álvarez Work Phone: [facility] 10-27-2023 19:05-0400 Heart rate 75 /min PA-C Doe Álvarez Work Phone: [facility] 10-27-2023 19:05-0400 Respiratory rate 28 /min PA-C Doe Álvarez Work Phone: [facility] 10-27-2023 19:05-0400 SaO2% (BldA) [Mass fraction] 96 % PA-C Doe Álvarez Work Phone: [facility] 10-27-2023 19:05-0400 Systolic blood pressure 120 mm[Hg] PA-C Doe Álvarez Work Phone: [facility] 10-27-2023 17:31-0400 Body temperature 97.9 [degF] PA-C Doe Álvarez Work Phone: [facility] 10-27-2023 17:11-0400 Body height 154.94 cm PA-C Doe Álvarez Work Phone: [facility] 10-27-2023 17:11-0400 Body weight 66.3 kg PA-C Doe Álvarez Work Phone: [facility] 06-20-2023 14:32-0400 Body height 165.1 cm DO Branden Ball Work Phone: [facility] 06-20-2023 14:32-0400 Body mass index (BMI) [Ratio] 24.4 kg/m2 DO Branden Ball Work Phone: [facility] 06-20-2023 14:32-0400 Body weight 66.67 kg DO Branden Ball Work Phone: [facility] 06-20-2023 14:32-0400 Diastolic blood pressure 77 mm[Hg] DO Branden Ball Work Phone: [facility] 06-20-2023 14:32-0400 Heart rate 83 /min DO Branden Ball Work Phone: [facility] 06-20-2023 14:32-0400 Systolic blood pressure 150 mm[Hg] DO Branden Ball Work Phone: [facility] 06-07-2023 09:28-0400 Body height 165.1 cm DO Branden Ball Work Phone: [facility] 06-07-2023 09:28-0400 Body mass index (BMI) [Ratio] 24.6 kg/m2 DO Branden Ball Work Phone: [facility] 06-07-2023 09:28-0400 Body weight 67.18 kg DO Branden Ball Work Phone: [facility] 06-07-2023 09:28-0400 Diastolic blood pressure 87 mm[Hg] DO Branden Ball Work Phone: [facility] 06-07-2023 09:28-0400 Heart rate 77 /min DO Branden Ball Work Phone: [facility] 06-07-2023 09:28-0400 Respiratory rate 12 /min DO Branden Ball Work Phone: [facility] 06-07-2023 09:28-0400 Systolic blood pressure 146 mm[Hg] DO Branden Ball Work Phone: [facility] 05-21-2023 10:24-0500 Body height 165.1 cm DO Branden Ball Work Phone: [facility] 05-21-2023 10:24-0500 Body mass index (BMI) [Ratio] 24.3 kg/m2 DO Branden Ball Work Phone: [facility] 05-21-2023 10:24-0500 Body weight 66.22 kg DO Branden Ball Work Phone: [facility] 05-21-2023 10:24-0500 Diastolic blood pressure 81 mm[Hg] DO Branden Ball Work Phone: [facility] 05-21-2023 10:24-0500 Heart rate 71 /min DO Branden Ball Work Phone: [facility] 05-21-2023 10:24-0500 Respiratory rate 16 /min DO Branden Ball Work Phone: [facility] 05-21-2023 10:24-0500 Systolic blood pressure 131 mm[Hg] DO Branden Ball Work Phone: [facility] 04-12-2023 11:30-0500 Body height 165.1 cm Branden Ball Other [facility] 04-12-2023 11:30-0500 Body mass index (BMI) [Ratio] 24.59 kg/m2 Branden Ball Other [facility] [employer] Other 04-12-2023 11:30-0500 Body weight 67.04 kg Branden Ball Other [facility] 04-12-2023 11:30-0500 Diastolic blood pressure 75 mm[Hg] Branden Ball Other [facility] 04-12-2023 11:30-0500 Respiratory rate 12 /min Branden Ball Other [facility] [employer] Other 04-12-2023 11:30-0500 Systolic blood pressure 122 mm[Hg] Branden Ball Other [facility] 03-26-2023 11:30-0500 Body height 165.1 cm Branden Ball Other [facility] 03-26-2023 11:30-0500 Body mass index (BMI) [Ratio] 24.89 kg/m2 Branden Ball Other [facility] [employer] Other 03-26-2023 11:30-0500 Body weight 67.86 kg Branden Ball Other [facility] [employer] Other 03-26-2023 11:30-0500 Body weight 67.85 kg DO Branden Ball Work Phone: [facility] 03-26-2023 11:30-0500 Diastolic blood pressure 82 mm[Hg] Branden Ball Other [facility] 03-26-2023 11:30-0500 Respiratory rate 12 /min Branden Ball Other [facility] [employer] Other 03-26-2023 11:30-0500 Systolic blood pressure 192 mm[Hg] Branden Ball Other [facility] 02-08-2023 13:30-0500 Body height 165.1 cm Branden Ball Other [facility] 02-08-2023 13:30-0500 Body mass index (BMI) [Ratio] 24.29 kg/m2 Branden Ball Other [facility] [employer] Other 02-08-2023 13:30-0500 Body weight 66.23 kg Branden Ball Other [facility] [employer] Other 02-08-2023 13:30-0500 Body weight 66.22 kg DO Branden Ball Work Phone: [facility] 02-08-2023 13:30-0500 Diastolic blood pressure 79 mm[Hg] Branden Ball Other [facility] 02-08-2023 13:30-0500 Respiratory rate 12 /min Branden Ball Other [facility] [employer] Other 02-08-2023 13:30-0500 Systolic blood pressure 128 mm[Hg] Branden Ball Other [facility] 08-27-2022 11:15-0400 Body height 165.1 cm Branden Ball Other [employer] Other 08-27-2022 11:15-0400 Body mass index (BMI) [Ratio] 24.06 kg/m2 Branden Ball Other [employer] Other 08-27-2022 11:15-0400 Body weight 65.59 kg Branden Ball Other [employer] Other 08-27-2022 11:15-0400 Diastolic blood pressure 83 mm[Hg] Branden Ball Other [employer] Other 08-27-2022 11:15-0400 Respiratory rate 12 /min Branden Ball Other [employer] Other 08-27-2022 11:15-0400 Systolic blood pressure 152 mm[Hg] Branden Ball Other [employer] Other 07-09-2022 15:00-0400 Body height 165.1 cm Branden Ball Other [employer] Other 07-09-2022 15:00-0400 Body mass index (BMI) [Ratio] 23.23 kg/m2 Branden Ball Other [employer] Other 07-09-2022 15:00-0400 Body weight 63.32 kg Branden Ball Other [employer] Other 07-09-2022 15:00-0400 Diastolic blood pressure 72 mm[Hg] Branden Ball Other [employer] Other 07-09-2022 15:00-0400 Respiratory rate 12 /min Branden Ball Other [employer] Other 07-09-2022 15:00-0400 Systolic blood pressure 134 mm[Hg] Branden Ball Other [employer] Other 05-21-2022 15:45-0500 Body height 165.1 cm Branden Ball Other [employer] Other 05-21-2022 15:45-0500 Body mass index (BMI) [Ratio] 24.56 kg/m2 Branden Ball Other [employer] Other 05-21-2022 15:45-0500 Body weight 66.95 kg Branden Ball Other [employer] Other 05-21-2022 15:45-0500 Diastolic blood pressure 82 mm[Hg] Branden Ball Other [employer] Other 05-21-2022 15:45-0500 Respiratory rate 12 /min Branden Ball Other [employer] Other 05-21-2022 15:45-0500 Systolic blood pressure 136 mm[Hg] Branden Ball Other [employer] Other 05-21-2022 09:45-0500 Diastolic blood pressure 92 mm[Hg] [employer] 05-21-2022 09:45-0500 Heart rate 72 /min [employer] 05-21-2022 09:45-0500 Respiratory rate 18 /min [employer] 05-21-2022 09:45-0500 SaO2% (BldA) [Mass fraction] 98 % [employer] 05-21-2022 09:45-0500 Systolic blood pressure 181 mm[Hg] [employer] Encounters Encounter Date Encounter Type Care Provider Facility Start: 12-29-2024 End: 12-29-2024 ambulatory Branden Ball DO Work Phone: [facility] Work Phone: Start: 12-29-2024 End: 12-29-2024 Patient encounter procedure Roxane Granda [facility] Work Phone: Start: 12-18-2024 Non-patient / Non-visit Shannon thurman MD -[facility] Work Phone: Start: 12-14-2024 End: 12-14-2024 ambulatory Branden Ball DO Work Phone: [facility] Work Phone: Start: 12-14-2024 End: 12-14-2024 Patient encounter procedure Justus Damon DO -[facility] Work Phone: Start: 12-03-2024 End: 12-03-2024 ambulatory Branden Ball DO Work Phone: [facility] Work Phone: Start: 12-03-2024 End: 12-03-2024 Patient encounter procedure Branden Du DO -[facility] Work Phone: Start: 12-01-2024 End: 12-01-2024 ambulatory Branden Ball DO Work Phone: [facility] Work Phone: Start: 12-01-2024 End: 12-01-2024 Patient encounter procedure Shmuel A Michelle [facility] Work Phone: Start: 11-26-2024 Non-patient / Non-visit Maura Dixon UTILIZATION SUPERVISOR -[facility] Work Phone: Start: 11-22-2024 End: 11-23-2024 ambulatory Benjamin Elias Facility:[facility] Start: 11-22-2024 End: 11-23-2024 Evaluation and management of inpatient Benjamin Elias MD -[facility] Work Phone: Start: 11-22-2024 End: 11-23-2024 observation encounter Branden Ball DO Work Phone: [facility] Work Phone: Start: 11-19-2024 End: 11-19-2024 ambulatory Branden Ball DO Work Phone: [facility] Work Phone: Start: 11-19-2024 End: 11-19-2024 Patient encounter procedure Roxaneantawn Granda [facility] Work Phone: Start: 11-18-2024 End: 11-18-2024 ambulatory Branden Ball DO Work Phone: [facility] Work Phone: Start: 11-18-2024 End: 11-18-2024 Patient encounter procedure Justus Damon DO -[facility] Work Phone: Start: 11-16-2024 End: 11-16-2024 ambulatory Branden Ball DO Work Phone: [facility] Work Phone: Start: 11-16-2024 End: 11-16-2024 Patient encounter procedure Branden Ball DO -[facility] Work Phone: Start: 11-09-2024 Non-patient / Non-visit Maura Dixon UTILIZATION SUPERVISOR -[facility] Work Phone: Start: 11-04-2024 End: 11-04-2024 ambulatory Branden Ball DO Work Phone: [facility] Work Phone: Start: 11-04-2024 End: 11-04-2024 Patient encounter procedure Branden Ball DO -[facility] Work Phone: Start: 11-03-2024 End: 11-03-2024 Office outpatient visit 10 minutes Vanessa Dave TICK SEWER-[facility] Work Phone: [facility] Comment on above: BMI 27.0-27.9,adult (Primary Dx); Essential hypertension; Localized edema Start: 11-03-2024 End: 11-03-2024 ambulatory [facility] Start: 10-03-2024 End: 10-03-2024 ambulatory Branden Ball DO Work Phone: [facility] Work Phone: Start: 10-03-2024 End: 10-03-2024 Departed Referred Laurie Mills MD -[facility] Start: 10-03-2024 Non-patient / Non-visit Laurie cervantes MD -[facility] Work Phone: Start: 09-29-2024 End: 09-29-2024 Office outpatient visit 15 minutes Vanessa Dave TICK SEWER-TERRITORY SALES CONSULTANT Work Phone: [facility] Comment on above: Essential hypertensi on (Primary Dx); Fatigue, unspecified type; BMI 26.0-26.9,adult Start: 09-29-2024 End: 09-29-2024 ambulatory [facility] Start: 09-29-2024 End: 09-29-2024 ambulatory Branden Ball DO Work Phone: [facility] Work Phone: Start: 09-29-2024 End: 09-29-2024 Patient encounter procedure Sobia Okeefe MD -[facility] Work Phone: Start: 08-19-2024 End: 08-19-2024 ambulatory [facility] Work Phone: Start: 08-19-2024 End: 08-19-2024 Patient encounter procedure [facility]ly [facility] Work Phone: Start: 08-05-2024 Non-patient / Non-visit [facility] Work Phone: Start: 08-05-2024 End: 08-05-2024 Office outpatient visit 25 minutes Vanessa Dave TICK SEWER-TERRITORY SALES CONSULTANT Work Phone: [facility] Comment on above: Hyperlipidemia, unsp ecified hyperlipidemia type (Primary Dx); Coronary artery disease, unspecified vessel or lesion type, unspecified whether angina present, unspecified whether [place] or transplanted heart; History of ST elevation myocardial infarction (STEMI); Essential hypertension; BMI 27.0-27.9,adult; Fatigue, unspecified type; Shortness of breath Start: 08-05-2024 End: 08-05-2024 ambulatory [facility] Start: 07-20-2024 End: 07-20-2024 ambulatory [facility] Work Phone: Start: 07-20-2024 End: 07-20-2024 Patient encounter procedure [facility] Work Phone: Start: 05-27-2024 End: 05-27-2024 Office outpatient visit 15 minutes Inderjit [facility] Work Phone: [facility] Comment on above: Coronary artery dise ase, unspecified vessel or lesion type, unspecified whether angina present, unspecified whether [place] or transplanted heart; History of ST elevation myocardial infarction (STEMI); History of PTCA; Hyperlipidemia, unspecified hyperlipidemia type; Essential hypertension; BMI 27.0-27.9,adult; Former smoker Start: 05-27-2024 End: 05-27-2024 ambulatory [facility] Start: 05-12-2024 End: 05-12-2024 [facility] Work Phone: Start: 05-12-2024 End: 05-12-2024 Patient encounter procedure [facility] Work Phone: Start: 04-28-2024 Non-patient / Non-visit [facility] Work Phone: Start: 03-12-2024 End: 03-12-2024 Patient encounter procedure [facility] Work Phone: Start: 03-11-2024 End: 03-11-2024 Patient encounter procedure [facility] Work Phone: Start: 03-09-2024 End: 03-09-2024 Patient encounter procedure [facility] Work Phone: Start: 03-07-2024 Patient encounter procedure [facility] Start: 03-06-2024 Non-patient / Non-visit [facility] Work Phone: Start: 12-20-2023 End: 12-20-2023 Office outpatient visit 25 minutes Inderjit Mitul [facility] Work Phone: [facility] Comment on above: Near syncope; Fatigue, unspecified type; History of PTCA; Essential hypertension; History of ST elevation myocardial infarction (STEMI); Shortness of breath; Coronary artery disease, unspecified vessel or lesion type, unspecified whether angina present, unspecified whether [place] or transplanted heart; Former smoker; BMI 27.0-27.9,adult Start: 12-20-2023 End: 12-20-2023 ambulatory [facility] Start: 12-12-2023 End: 12-12-2023 ambulatory IGNACIA-Heri Álvarez Work Phone: [facility] Work Phone: Start: 12-12-2023 End: 12-12-2023 Patient encounter procedure PA-Heri Álvarez Work Phone: [facility] Work Phone: Start: 12-04-2023 End: 12-04-2023 ambulatory PA-Heri Álvarez Work Phone: [facility] Work Phone: Start: 12-04-2023 End: 12-04-2023 Patient encounter procedure FLAKITA Álvarez Work Phone: [facility] Work Phone: Start: 11-12-2023 End: 11-12-2023 ambulatory PA-Heri Álvarez Work Phone: [facility] Work Phone: Start: 11-12-2023 End: 11-12-2023 Patient encounter procedure PA-C Doe Álvarez Work Phone: [facility] Work Phone: Start: 11-07-2023 End: 11-07-2023 Transitional care manage srvc 7 day discharge Inderjit Frausto DO Work Phone: [facility] Comment on above: Coronary artery dise ase, unspecified vessel or lesion type, unspecified whether angina present, unspecified whether [place] or transplanted heart; History of PTCA; History of ST elevation myocardial infarction (STEMI); Shortness of breath; Former smoker; BMI 26.0-26.9,adult; Hyperlipidemia, unspecified hyperlipidemia type Start: 11-05-2023 Non-patient / Non-visit IGNACIA-C Evelyn Álvarez Work Phone: [facility] Work Phone: Start: 11-05-2023 End: 11-05-2023 Emergency department patient visit PA-Heri Álvarez Work Phone: [facility] Work Phone: Start: 10-28-2023 Non-patient / Non-visit IGNACIA-Heri Álvarez Work Phone: [facility] Pulmonary Disease Work Phone: Start: 10-27-2023 End: 10-29-2023 Evaluation and management of inpatient IGNACIA-Heri Álvarez Work Phone: [facility] Work Phone: Start: 06-20-2023 End: 06-20-2023 ambulatory DO Branden uD Work Phone: [facility] Work Phone: Start: 06-20-2023 End: 06-20-2023 Patient encounter procedure DO Branden Du Work Phone: [facility] Gastroenter[facility] Work Phone: Start: 06-07-2023 End: 06-07-2023 ambulatory DO Branden Ball Work Phone: [facility] Work Phone: Start: 06-07-2023 End: 06-07-2023 Patient encounter procedure DO Branden Ball Work Phone: [facility] Work Phone: Start: 05-21-2023 End: 05-21-2023 Patient encounter procedure DO Branden Ball Work Phone: [facility] Work Phone: Start: 05-06-2023 End: 05-06-2023 ambulatory DO Branden Ball Work Phone: [facility] Work Phone: Start: 05-06-2023 End: 05-06-2023 Patient encounter procedure DO Branden Ball Work Phone: [facility]Pet Scan Work Phone: Start: 04-24-2023 End: 04-24-2023 ambulatory ELENA HASSAN Not Available Start: 04-23-2023 End: 04-23-2023 ambulatory Branden Ball Other [employer] Other Start: 04-23-2023 Telephone encounter Branden Ball [facility] Start: 04-22-2023 End: 04-22-2023 ambulatory Branden Ball Other [employer] Other Start: 04-22-2023 Telephone encounter Branden Ball [facility] Start: 04-17-2023 End: 04-17-2023 ambulatory Branden Ball Other [employer] Other Start: 04-17-2023 Telephone encounter Branden Ball [facility] Start: 04-12-2023 End: 04-12-2023 ambulatory Branden Ball Other [employer] Other Start: 04-12-2023 Office outpatient vi sit 15 minutes Branden Ball [facility] Start: 04-12-2023 Telephone encounter Branden Philly [facility] Start: 04-12-2023 End: 04-12-2023 Patient encounter procedure DO Branden Ball Work Phone: [facility]- Start: 04-08-2023 End: 04-08-2023 ambulatory Branden Ball Other [employer] Other Start: 04-08-2023 Telephone encounter Branden Ball [facility] Start: 04-01-2023 End: 04-01-2023 ambulatory Branden Ball Other [employer] Other Start: 04-01-2023 Telephone encounter Branden Ball [facility] Start: 03-27-2023 End: 03-27-2023 ambulatory Branden Ball Other [employer] Other Start: 03-27-2023 Telephone encounter Branden Ball [facility] Start: 03-26-2023 End: 03-26-2023 ambulatory Branden Ball Other [employer] Other Start: 03-26-2023 Office outpatient vi sit 15 minutes Branden Ball [facility] Start: 03-26-2023 End: 03-26-2023 Patient encounter procedure DO Branden Ball Work Phone: [facility] Work Phone: Start: 03-14-2023 End: 03-14-2023 ambulatory Branden Ball Other [employer] Other Start: 03-14-2023 Telephone encounter Branden Ball [facility] Start: 02-19-2023 End: 02-19-2023 ambulatory Branden Ball Other [employer] Other Start: 02-19-2023 Telephone encounter Branden Ball [facility] Start: 02-08-2023 End: 02-08-2023 ambulatory Branden Du Other [employer] Other Start: 02-08-2023 Patient encounter procedure Branden Du [facility] Start: 02-08-2023 End: 02-08-2023 Patient encounter procedure DO Branden Du Work Phone: [facility] Work Phone: Start: 09-20-2022 End: 09-20-2022 ambulatory Branden Du Other [employer] Other Start: 09-20-2022 Telephone encounter Branden Du [facility] Start: 08-27-2022 End: 08-27-2022 ambulatory Branden Du Other [employer] Other Start: 08-27-2022 Office outpatient vi sit 15 minutes Branden Ball [facility] Start: 08-24-2022 End: 08-24-2022 ambulatory Branden Du Other [employer] Other Start: 08-24-2022 Nursing evaluation o f patient and report Branden Du [facility] Start: 07-09-2022 End: 07-09-2022 ambulatory Branden Du Other [employer] Other Start: 07-09-2022 Office outpatient vi sit 15 minutes Branden Ball [facility] Start: 06-12-2022 End: 06-12-2022 ambulatory Branden Philly Other [employer] Other Start: 06-12-2022 Telephone encounter Branden Ball [facility] Start: 06-11-2022 End: 06-11-2022 ambulatory Branden Ball Other [employer] Other Start: 06-11-2022 Telephone encounter Branden Ball [facility] Start: 05-22-2022 End: 05-22-2022 ambulatory Branden Ball Other [employer] Other Start: 05-22-2022 Telephone encounter [facility]en Du [facility] Start: 05-21-2022 Office outpatient vi sit 15 minutes Branden Du [facility] Start: 05-21-2022 End: 05-23-[address] BRANDEN DU Facility:[facility] Start: 05-21-2022 End: 05-21-2022 ambulatory [facility] Transport Start: 05-21-2022 End: 05-21-2022 Emergency department patient visit [facility] Emergency Triage, Treat and Transport Comment on above: Arrived Start: 05-04-2022 End: 05-04-2022 ambulatory Branden Du Other [employer] Other Start: 05-04-2022 Telephone encounter Branden Du [facility] Start: 05-03-2022 End: 05-03-2022 ambulatory Branden Du Other [employer] Other Start: 05-03-2022 Telephone encounter Branden Du [facility] Start: 02-08-2022 End: 02-09-2022 ambulatory [...] procedure 01/27/2025 1:00 PM EST Office Visit [address] [facility] [address] [place] [address] Vanessa Dave, TICK SEWER-TERRITORY SALES CONSULTANT [address] [facility] [address] [place] [address] [facility] Start: 11-23-2024 Influenza vaccination Influenza Vacc ine (#1) [facility] Start: 11-23-2024 [facility] Start: 11-22-2024 Hospital admission [facility] Start: 11-22-2024 End: 11-22-2024 [facility] Start: 11-03-2024 End: 11-03-2024 Patient encounter procedure 11/03/2024 2:00 PM EDT Office Visit [place] [id number] [place] [address] Vanessa Dave, TICK SEWER-TERRITORY SALES CONSULTANT [address] [facility] [address] [place] [address] [facility] Start: 11-03-2024 End: 11-03-2026 US.doppler Lower extremity vein - right Vascular US lower extremity venous duplex right Vascular Ultrasound STAT Localized edema Expected: 11/03/2024 (Approximate), Expires: 11/03/2026 [facility] Work Phone: Comment on above: Expected: 11/03/2024 (Approximate), Expires: 11/03/2026 Start: 10-03-2024 Urine culture [facility] Start: 10-03-2024 Bacteria identified in Urine by Culture Urine Culture [facility] Start: 09-08-2024 End: 09-08-2024 Patient encounter procedure 09/08/2024 1:00 PM EDT Office Visit [facility] [address] [facility] [address] [place] [id number] Vanessa Dave, TICK SEWER-TERRITORY SALES CONSULTANT [address] [facility] [address] [place] [address] [facility] Start: 08-05-2024 End: 08-05-2025 Basic metabolic 2000 panel - Serum or Plasma Basic Metabolic Panel Lab Routine Coronary artery disease, unspecified vessel or lesion type, unspecified whether angina present, unspecified whether [place] or transplanted heart Essential hypertension Fatigue, unspecified type Expected: 08/05/2024 (Approximate), Expires: 08/05/2025 [facility] Work Phone: Comment on above: Expected: 08/05/2024 (Approximate), Expires: 08/05/2025 Start: 08-05-2024 End: 08-05-2025 CBC panel - Blood by Automated count CBC Lab Routine Coronary artery disease, unspecified vessel or lesion type, unspecified whether angina present, unspecified whether [place] or transplanted heart Essential hypertension Fatigue, unspecified type Expected: 08/05/2024 (Approximate), Expires: 08/05/2025 [facility] Work Phone: Comment on above: Expected: 08/05/2024 (Approximate), Expires: 08/05/2025 Start: 08-05-2024 End: 08-05-2025 Thyrotropin [Units/volume] in Serum or Plasma Thyroid Stimulating Hormone Lab Routine Coronary artery disease, unspecified vessel or lesion type, unspecified whether angina present, unspecified whether [place] or transplanted heart Essential hypertension Fatigue, unspecified type Expected: 08/05/2024 (Approximate), Expires: 08/05/2025 [facility] Work Phone: Comment on above: Expected: 08/05/2024 (Approximate), Expires: 08/05/2025 Start: 06-03-2024 COVID-19 Vaccine () COVID-19 Vaccine () [facility] Start: 05-27-2024 End: 05-27-2024 Patient encounter procedure 05/27/2024 10:50 AM EST Office Visit [place] [id number] [facility] [address] [place] [address] Inderjit Frausto, DO [address] [facility] [address] [place] [address] [facility] Start: 03-11-2024 End: 03-11-2024 Patient encounter procedure 03/11/2024 10:40 AM EST Office Visit [address] [facility] [address] [place] [address] Inderjit Frausto, DO [address] [facility] [address], [facility] [address] [place] [address] [facility] Start: 11-24-2023 Influenza vaccination Influenza Vacc ine (#1) [facility] Start: 10-29-2023 [facility] Start: 10-27-2023 Consultation [facility] Start: 10-27-2023 Hospital admission [facility] Start: 10-27-2023 Referral to cardiac rehabilitation program [facility] Start: 10-27-2023 [facility] Start: 10-27-2023 End: 10-27-2023 [facility] Start: 10-27-2023 Dilation of Coronary Artery, One Artery with Drug-eluting Intraluminal Device, Percutaneous Approach Dilation of Coronary Artery, One Artery with Drug-eluting Intraluminal Device, Percutaneous Approach [facility] Start: 10-27-2023 Fluoroscopy of Left Heart using Low Osmolar Contrast Fluoroscopy of Left Heart using Low Osmolar Contrast [facility] Start: 10-27-2023 Fluoroscopy of Multi ple Coronary Arteries using Low Osmolar Contrast Fluoroscopy of Multiple Coronary Arteries using Low Osmolar Contrast [facility] Start: 10-27-2023 Measurement of Cardi ac Sampling and Pressure, Left Heart, Percutaneous Approach Measurement of Cardiac Sampling and Pressure, Left Heart, Percutaneous Approach [facility] Start: 05-21-2023 Patient referral [facility] Work Phone: Start: 04-29-2023 COVID-19 Vaccine ( season) COVID-19 Vaccine () [facility] Start: 12-23-2021 Influenza vaccination Influenza Vacc ine (#1) [facility] Start: 2005 Pneumococcal vaccination Pneum ococcal Vaccine(s) (65+ yrs) (1 - PCV) [facility] Start: 2005 Screening for osteoporosis [facility] Start: 1990 Shingles (RZV) Vacci ne (1 of 2) Shingles (RZV) Vaccine (1 of 2) [facility] Start: 1962 DTaP/Tdap/Td Vaccine s (1 - Tdap) DTaP/Tdap/Td Vaccines (1 - Tdap) [facility] Start: 1958 Tetanus + diphtheria + acellular pertussis vaccine (product) Tdap Booster [facility] Start: 04-24-1941 COVID-19 Vaccine (#1) COVID-19 Vacci ne (#1) [facility] Start: 1940 Basic metabolic 2000 panel - Serum or Plasma Basic Metabolic Panel [facility] Start: 1940 Lipid panel Lipid Panel [facility] Start: 1940 Medicare Annual Well ness Visit Medicare Annual Wellness Visit (AWV) [facility] Start: 1940 Screening for osteoporosis Bone Density Scan [facility] Comprehensive metabo lic 2000 panel - Serum or Plasma [facility] DXA Skeletal system.axial Views for bone density [facility] MG Breast - bilatera l Screening [facility] MR Lumbar spine WO a nd W contrast IV [facility] MR Shoulder - right WO contrast [facility] Patient Education [facility] Work Phone: Patient referral [facility] Work Phone: Supine abdominal X-ray [facility] XR Cervical spine Vi ews W flexion and W extension [facility] XR Thoracic spine 3 Views [facility] Immunizations Immunization Date Immunization Notes Care Provider Allie nash 12-03-2024 influenza, high dose seasonal, preservative-free Branden Du DO Work Phone: [facility] 12-05-2023 Moderna COVID-19 vaccine, 12 years and older (50mcg/0.5mL)(Spikevax ) Inderjit Frausto DO Work Phone: [facility] Work Phone: 12-04-2023 influenza, high dose seasonal, preservative-free FLAKITA Álvarez Work Phone: [facility] 12-04-2023 influenza virus vaccine, unspecified formulation Vanessa Dave TICK SEWER-TERRITORY SALES CONSULTANT Work Phone: [facility] Work Phone: 05-06-2023 zoster vaccine recombinant Inderjit Frausto DO Work Phone: [facility] Work Phone: 12-27-2022 Influenza, Seasonal, Quadrivalent, Adjuvanted Vanessa Dave TICK SEWER-TERRITORY SALES CONSULTANT Work Phone: [facility] Work Phone: 12-27-2022 Pfizer COVID-19 vaccine, 12 years and older, (30mcg/0.3mL) (Comirnaty) Inderjit Frausto DO Work Phone: [facility] Work Phone: 12-27-2022 RESPIRATORY SYNCYTIA L VIRUS (RSV), ELIGIBLE PTS, 0.5 ML (ABRYSVO) Inderjit Frausto DO Work Phone: [facility] Work Phone: 12-27-2022 influenza virus vaccine, unspecified formulation Inderjit Frausto DO Work Phone: [facility] Work Phone: 08-06-2022 Pneumococcal conjuga te vaccine, 20-valent (PREVNAR 20) Inderjit Frausto DO Work Phone: [facility] Work Phone: 08-06-2022 zoster vaccine recombinant Inderjit Frausto DO Work Phone: [facility] Work Phone: 12-27-2021 Moderna COVID-19 vaccine, bivalent, blue cap/grady label *Check age/dose* Inderjit Frausto DO Work Phone: [facility] 12-13-2021 influenza virus vaccine, split virus (incl. purified surface antigen) Branden Du Other [employer] Other 12-13-2021 influenza virus vaccine, unspecified formulation DO Branden Philly Work Phone: [facility] 12-13-2021 Influenza, Seasonal, Quadrivalent, Adjuvanted Vanessa Dave TICK SEWER-TERRITORY SALES CONSULTANT Work Phone: [facility] Work Phone: 12-14-2020 influenza virus vaccine, split virus (incl. purified surface antigen) Branden Du Other [employer] Other 12-14-2020 influenza virus vaccine, unspecified formulation DO Branden Du Work Phone: [facility] 12-14-2020 Seasonal trivalent influenza vaccine, adjuvanted, preservative free Vanessa Dave TICK SEWER-TERRITORY SALES CONSULTANT Work Phone: [facility] Work Phone: 12-04-2019 influenza virus vaccine, split virus (incl. purified surface antigen) Branden Du Other [facility] [employer] Other 12-04-2019 influenza virus vaccine, unspecified formulation DO Branden Du Work Phone: [facility] 12-16-2018 influenza virus vaccine, split virus (incl. purified surface antigen) Branden Du Other [facility] [employer] Other 12-16-2018 influenza virus vaccine, unspecified formulation DO Branden Du Work Phone: [facility] 01-15-2018 influenza virus vaccine, split virus (incl. purified surface antigen) Branden Du Other [facility] [employer] Other 01-15-2018 influenza virus vaccine, unspecified formulation DO Branden Du Work Phone: [facility] 01-15-2018 influenza, injectabl e, quadrivalent, contains preservative Vanessa Dave TICK SEWER-TERRITORY SALES CONSULTANT Work Phone: [facility] Work Phone: 01-12-2017 influenza virus vaccine, split virus (incl. purified surface antigen) Branden uD Other [facility] 01-12-2017 influenza virus vaccine, unspecified formulation DO Branden Du Work Phone: [facility] 12-27-2015 influenza virus vaccine, split virus (incl. purified surface antigen) Branden Du Other [facility] [employer] Other 12-27-2015 influenza virus vaccine, unspecified formulation DO Branden Du Work Phone: [facility] 12-27-2015 influenza, high dose seasonal, preservative-free Inderjit Frausto DO Work Phone: [facility] Work Phone: 01-28-2015 pneumococcal conjuga te vaccine, 13 valent Branden Du Other [facility] 12-16-2014 influenza, high dose seasonal, preservative-free Inderjit Frausto DO Work Phone: [facility] Work Phone: 05-26-2010 zoster vaccine, live Inderjit Frausto DO Work Phone: [facility] Work Phone: 03-08-2009 novel [id number], preservative-free, injectable Vanessa Dave TICK SEWER-TERRITORY SALES CONSULTANT Work Phone: [facility] Work Phone: Payers Date Payer Category Payer Self-pay 2023 Unknown [id number] 2023 Medicare supplementa l policy (as second payer) [employer] [id number] 2022 Unknown [id number] 2022 Unknown [id number] 2005 Medicare [id number] 1959 Medicare [id number] 1959 Unknown [id number] 1940 Unknown [id number]. [id number] 1940 Unknown [id number] [id number]. 2.593 1940 Unknown [id number] [id number]. 2.593 1940 Unknown [id number] [id number]. 2.732 1940 Unknown [id number] [id number]. 2.1259 1940 Unknown [id number] [id number]. 2.1244 1940 Unknown [id number] [id number]. 2.1244 1940 Unknown [id number] [id number]. 2.1244 1940 Unknown [id number]. 2.1244 1940 Unknown [id number] Medicare Medicare [id number] Unknown [id number] Unknown [id number] Social History Date Type Detail Facility Tobacco smoking status NHIS Tobacco smoking consumption unknown [facility] Start: 1940 Sex Assigned At Not on file [facility] Start: 12-20-2023 End: 11-03-2024 Sex Assigned At [facility] [employer] Other Start: 1940 Sex Assigned At Female [facility] Start: 06-20-2023 End: 11-22-2024 Tobacco smoking status NHIS Never smoked tobacco (finding) [facility] Start: 10-27-2023 End: 11-23-2024 Tobacco smoking status NHIS Ex-smoker (finding) [facility] Start: 11-05-2023 Tobacco smoking status NHIS Current some day smoker [facility] Start: 03-25-1956 History of tobacco use Current smoker [facility] Work Phone: Start: 03-25-1956 History of tobacco use Cigarette Smoker [facility] Work Phone: Start: 11-07-2023 End: 11-03-2024 Tobacco use and exposure Smokeless tobacco non-user [facility] Work Phone: Start: 11-07-2023 End: 11-03-2024 Alcoholic beverage intake Current drinker of alcohol (finding) [facility] Work Phone: Start: 10-28-2023 End: 08-05-2024 Exposure to SARS-CoV-2 (event) Not sure [facility] Start: 12-20-2023 End: 11-03-2024 Alcoholic beverage intake [facility] Work Phone: Start: 05-12-2024 End: 08-19-2024 Sex Female (finding) [facility] Start: 02-17-2022 Sex Female [facility] Medical Equipment Procedure Code Equipment Code Equipment Origin al Text Equipment Identifier Dates CL STENT PEDRO FRONTIER 4.0 X 18 FDA Start: 10-27-2023 Femoral artery closure plug/patch, synthetic polymer [id number] FDA Start: 10-27-2023 CL STENT PEDRO FRONTIER [...] Facility 11-23-2024 Functional status Patient at [facility] Work Phone: 10-29-2023 Functional status Patient at [facility] Work Phone: Mental Status Date Assessment Result Facility 11-23-2024 Cognitive function Cognitive Sta tus Patient at [facility] Work Phone: 10-29-2023 Cognitive function Cognitive Sta tus Patient at [facility] Work Phone: Clinical Notes 05-04-2022 to 11-23-2024 Note Date & Type Note Facility 11-23-2024 Discharge summary [facility] 11-23-2024 History and physical note Note Date/Time November 23, 2024 1:05am [facility] [address] [place] [address] Hospitalist H&P Signed Patient: Genny Barboza MR#: [id number] 3012 : 1940 Acct:[id number] Age/Sex: 84 / F Adm Date: 5 Loc: 3T Room: [address] [place] [address] Type: ADM INOo Attending Dr: Benjamin Elias [...] half. She was prescribed MiraLAX, suppositories by [facility] which she took with no result. [...] no impaction. CT scan abdomen done in [place] about a week ago showed no other [...] cancer resection Colonoscopy July 2023 [facility] Medical History Abdominal distention Compression fx, [...] % (Auto) 20.6 % (.) 11/22/24 18:22 Mills % (Auto) 13.9 % (.) 11/22/24 18:22 Eos % (Auto) 0.9 % (.) 11/22/24 18:22 Baso % (Auto) 1.1 % (.) 11/22/24 18:22 Nucleat RBC Rel Count 0.1 /100 WBC (0-0.5) 11/22/24 18:22 Neut # (Auto) 4.8 x10E3/uL (1.8-7.7) 11/22/24 18:22 Lymph # (Auto) 1.5 x10E3/uL (1.00-4.8) 11/22/24 18:22 Mills # (Auto) 1.0 x10E3/uL (0.0-0.8) H 11/22/24 [...] pH 5.5 (5.0-9.0) 11/22/24 20:09 Ur Specific [place] 1.005 (1.001-1.030) 11/22/24 20:09 Urine Protein Negative [...] <Electronically signed by Benjamin Elias MD> 11/23/24104 [facility] Work Phone: 1([phone]) 890-702809-01-2025 [place] [address] Hospitalist H&P Signed Patient: Genny Barboza MR#: [id number] 3012 : 1940 Acct:[id number] Age/Sex: 84 / F Adm Date: 5 Loc: Room: [address] [place] [address] Type: ADM INOo Attending Dr: Benjamin Elias [...] half. She was prescribed MiraLAX, suppositories by [facility] which she took with no result. [...] no impaction. CT scan abdomen done in [place] about a week ago showed no other [...] cancer resection Colonoscopy July 2023 [facility] Medical History Abdominal distention Compression fx, [...] % (Auto) 20.6 % (.) 11/22/24 18:22 Mills % (Auto) 13.9 % (.) 11/22/24 18:22 Eos % (Auto) 0.9 % (.) 11/22/24 18:22 Baso % (Auto) 1.1 % (.) 11/22/24 18:22 Nucleat RBC Rel Count 0.1 /100 WBC (0-0.5) 11/22/24 18:22 Neut # (Auto) 4.8 x10E3/uL (1.8-7.7) 11/22/24 18:22 Lymph # (Auto) 1.5 x10E3/uL (1.00-4.8) 11/22/24 18:22 Mills # (Auto) 1.0 x10E3/uL (0.0-0.8) H 11/22/24 [...] pH 5.5 (5.0-9.0) 11/22/24 20:09 Ur Specific [place] 1.005 (1.001-1.030) 11/22/24 20:09 Urine Protein Negative [...] MD 11/23/24 0058 Signed By: 11/23/24 0105 [facility]08-13-2025 Evaluation note* Diagnosis Onset Date [...] of T11 vertebra acute December 29 11:25am [facility] Work Phone: [phone] Evaluation + Plan note* Assessment & Plan Note - ROLAND Becerril - 11/03/2024 2:22 PM EDTAssociated Problem(s): Localized edema After flight to [place] has noticed RLE pedal edema and calf pain. Will get USN to rule out DVT [facility] Work Phone: [phone] 520-634708-12-2025 Miscellaneous Notes* Assessment & Plan Note - ROLAND Becerril - 11/03/2024 2:22 PM EDTAssociated Problem(s): Localized edema After flight to [place] has noticed RLE pedal edema and calf pain. Will get USN to rule out DVT documented in this [facility] Work Phone: [phone] 190-954508-12-2025 History of Present illness Narrative* ROLAND Becerril [...] home. Otherwise, she just recently traveled to [place] and has noted some right pedal edema, [...] peripheral pulses. No open wounds.Recent travel to [place]. Plan: Through informed decision making process incorporating [...] contact the office if new symptoms arise. BACK UP SCAN COORDINATOR as scheduled Vanessa Dave MSN, WOODY-TERRITORY SALES CONSULTANT, PMHNP-[facility] [place], [place] Please excuse any errors in grammar or translation related to this dictation. Voice recognition software was utilized to prepare this document. documented in this [facility] Work Phone: [phone]) 743-404508-12-2025 Instructions* Patient Instructions* ROLAND Becerril - 11/03/2024 [...] contact the office if new symptoms arise. BACK UP SCAN COORDINATOR as scheduled documented in this [facility] Work Phone: [phone] 352-416307-09-2025 Evaluation + Plan note* Assessment & Plan [...] we will transition Lopressor over to carvedilol. [facility] Work Phone: [phone] 309-832507-09-2025 Miscellaneous Notes* Assessment & Plan Note - [...] andtransitioned over to carvedilol. documented in this [facility] Work Phone: [phone]) 910-258707-09-2025 Evaluation + Plan note* Assessment & Plan Note - ROLAND Becerril - 09/30/2024 8:25 AM EDTAssociated Problem(s): BMI 26.0-26.9,adult Reviewed the merits of healthy lifestyle choices on overall cardiovascular health. [facility] Work Phone: [phone]) [phone] Evaluation + Plan note* Assessment & Plan Note - ROLAND Becerril - 09/30/2024 8:25 AM EDTAssociated Problem(s): Essential hypertension Her dose of Lopressor was down titrated due to fatigability. Blood pressure is borderline in the office. She was noted to have improvement in fatigue with down titration of Lopressor, will discontinue andtransitioned over to carvedilol. [facility] Work Phone: [phone] 997-427407-08-2025 Evaluation note* Diagnosis Onset Date Resolution Status [...] Right shoulder strain acute Oct us2024 11:26am [facility] Work Phone: [phone] Evaluation note* Diagnosis Onset Date Resolution Status [...] Right shoulder strain acute Oct us2024 9:58am [facility] Work Phone: [phone] Evaluation note* Diagnosis Onset Date Resolution Status [...] 2024 10:23pm Primary hypertension acute 2024 10:23pm [facility] Work Phone: [phone]) 850-796807-08-2025 Evaluation note* Diagnosis Onset Date Resolution Status [...] colon cancer resolved A ugust 2024 10:23pm [facility] Work Phone: [phone] Evaluation note* Diagnosis Onset Date Resolution Status [...] acute Oct us2024 9:58am Cervical radiculopathy deleted [facility] 2024 9:58am Primary hypertension acute 2024 10:23pm Acute hypokalemia resolved November 22, 2024 10:23pm Constipation resolved November 22, 2024 10:23pm History of colon cancer resolved A ugust 2024 10:23pm Alternating constipation and diarrhea acute December 01, 2 025 1:22pm Abdominal pain acute December 03, 2024 11:19am Cervical spondylosis acute Nov 11:19am Compression fracture of L1 lumbar vertebra acute December 03, 2024 11:19am [facility] Work Phone: [phone] 227-827407-08-2025 Evaluation note* Diagnosis Onset Date Resolution Status [...] 11:16am Right shoulder strain acute Nov 11:16am [facility] Work Phone: [phone] 103-766807-08-2025 History of Present illness Narrative* Vanessa Dave, WOODY-TERRITORY SALES CONSULTANT - 09/29/2024 2:30 PM EDT Chief Complaint [...] contact the office if new symptoms arise. BACK UP SCAN COORDINATOR one month Vanessa Dave MSN, TICK SEWER-TERRITORY SALES CONSULTANT, PMHNP-[facility] [place], [place] Please excuse any errors in grammar or translation related to this dictation. Voice recognition software was utilized to prepare this document. documented in this [facility] Work Phone: [phone] 173-912307-08-2025 Instructions* Patient Instructions* ROLAND Becerril - 09/29/2024 [...] contact the office if new symptoms arise. BACK UP SCAN COORDINATOR one month documented [facility] Work Phone: [phone]) 239-948205-28-2025 Evaluation note* Diagnosis Onset Date Resolution Status Admit Date Cervical spondylosis acute August 19, 2024 1:30pm Neck pain acute August 19, 2024 1:30pm Seborrheic dermatitis acute August 19, 2024 1:30pm Lung nodule acute September 29 1:13pm Cervical spondylosis with radiculopathy acute November 04 1:56pm Neck pain acute November 04, 2 025 1:56pm [facility] Work Phone: [phone] Evaluation + Plan note* Assessment & Plan [...] in from the parking lot without concerns. [facility] Work Phone: [phone] Evaluation + Plan note* Assessment & Plan Note - ROLAND Becerril - 08/06/2024 9:41 AM EDTAssociated Problem(s): Fatigue Presents to the office today with complaints of ongoing fatigability and having no energy . Symptoms started close to 4 weeks ago. Her prior angina symptom was a strange chest sensation and she denies any reoccurrence. [facility] Work Phone: [phone]) 959-837105-15-2025 Miscellaneous Notes* Assessment & Plan Note - [...] disease) Oct 26, 2024 Inferior STEMI pRCA PCI/Alba 4 x 18 mm mLAD mild intramyocardial bridging O/p Diag 75% small/moderate vessel OM none EF 60% documented in this [facility] Work Phone: [phone] 229-156405-15-2025 Evaluation + Plan note* Assessment & Plan Note - ROLAND Becerril - 08/06/2024 9:40 AM EDTAssociated Problem(s): BMI 27.0-27.9,adult Reviewed the merits of healthy lifestyle choices on overall cardiovascular health. [facility] Work Phone: [phone]) 385-726705-15-2025 Evaluation + Plan note* Assessment & Plan Note - ROLAND Becerril - 08/06/2024 9:40 AM EDTAssociated Problem(s): Essential hypertension Optimal in office [facility] Work Phone: [phone] 225-833905-15-2025 Evaluation + Plan note* Assessment & Plan Note - ROLAND Becerril - 08/06/2024 9:40 AM EDTAssociated Problem(s): Hyperlipidemia High intensity statin t. [facility] Work Phone: [phone] Evaluation + Plan note* Assessment & Plan Note - ROLAND Becerril - 08/06/2024 9:40 AM EDTAssociated Problem(s): CAD (coronary artery disease) Oct 26, 2024 Inferior STEMI pRCA PCI/Alba 4 x 18 mm mLAD mild intramyocardial bridging O/p Diag 75% small/moderate vessel OM none EF 60% [facility] Work Phone: [phone] 116-747805-14-2025 History of Present illness Narrative* ROLAND Becerril [...] her angina symptom on the day of [place] was just a strange sensation, denies any [...] contact the office if new symptoms arise. BACK UP SCAN COORDINATOR one month Vanessa Dave MSN, TICK SEWER-TERRITORY SALES CONSULTANT, PMHNP-[facility] [place], [place] Please excuse any errors in grammar or translation related to this dictation. Voice recognition software was utilized to prepare this document. documented in this [facility]Mer[facility] Work Phone: [phone]) 280-679605-14-2025 Instructions* Patient Instructions* ROLAND Becerril - 08/05/2024 [...] contact the office if new symptoms arise. BACK UP SCAN COORDINATOR one month documented in this [facility] Work Phone: [phone] Evaluation note* Diagnosis Onset Date Resolution Status Admit Date Diarrhea acute July 20 10:57am Gastroesophageal reflux dise ase with esophagitis without hemorrhage acute July 20, 2024 10:57am History of colon cancer acute A l 2024 10:57am IBS (irritable bowel syndrome) acute July 20, 2024 10:57am Intermittent abdominal pain acute July 20, 2024 10:57am [facility] Work Phone: [phone] Evaluation note* Diagnosis Onset Date Resolution Status [...] Seborrheic dermatitis acute August 19, 2024 1:30pm [facility] Work Phone: [phone] 364-338304-28-2025 Evaluation note* Diagnosis Onset Date Resolution Status [...] 1:30pm Lung nodule acute September 29 1:13pm [facility] Work Phone: [phone] 527-837903-05-2025 History of Present illness Narrative* Inderjit Frausto, DO - 05/27/2024 10:50 AM EST Subjective Genny Barboza is a 83 y.o. female Chief Complaint Follow-up; Coronary Artery Disease 83-year-old female returns for follow-up she is doing very well, she has traveled to [place] in [place] and is getting in 12,000 steps daily. [...] type, unspecified whether angina present, unspecified whether [place] or transplanted heart Follow Up In Cardiology [...] exam, discussion and plan. documented in [facility] Work Phone: [phone] 164-273503-05-2025 Instructions* Patient Instructions* Jacque Quesada RN - [...] Provided instructions on exercise. documented in this [facility]Mer[facility] Work Phone: [phone] Evaluation note* Diagnosis Onset Date Resolution Status [...] abdominal pain acute July 20, 2024 10:57am [facility] Work Phone: [phone] 244-772812-16-2024 Evaluation note* Diagnosis Onset Date Resolution Status [...] shoulder pain noneactive Febru jaron 2024 1:24pm [facility] Work Phone: [phone] History of Present illness Narrative* Inderjit Frausto, [...] type, unspecified whether angina present, unspecified whether [place] or transplanted heart 8. Former smoker 9. [...] exam, discussion and plan. documented in this [facility]Mer[facility] Work Phone: 1([phone]) [phone] Instructions* Patient Instructions* Jacque Quesada RN - [...] pill each day after. documented in this [facility]Mer[facility] Work Phone: [phone] 264-412408-15-2024 History of Present illness Narrative* Inderjit Frausto [...] type, unspecified whether angina present, unspecified whether [place] or transplanted heart 2. History of PTCA [...] exam, discussion and plan. documented in this [facility]Mer[facility] Work Phone: [phone] 186-958308-15-2024 Instructions* Patient Instructions* Kacy Norris LPN - [...] instructions on dietary changes. 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 Currently on RA, on ASA, Brilinta, BB, statin, ROBIN. Review of Systems Constitutional Constitutional: Reports as per HPI Cardiovascular Cardiovascular: Reports as per HPI and Reports chest pain at rest [facility] Medical History Lung nodule CT: 1.7cm [...] <Electronically signed by Sobia Okeefe MD> 10/28/232054 [facility] Work Phone: [phone] Progress note Author Reji Frausto [facility] October 28, 2023 11:54am Note Date/Time October 28, 2023 11: 54am [facility] [address] [place] [address] Cardiology Progress Note Signed Patient: Genny Barboza MR#: [id number] 3012 : 1940 Acct:[id number] Age/Sex: 83 / F Adm Date: 4 Loc: Room: 3D5591-6 Type: ADM IN Attending Dr: Reji Frausto [...] administered under my direction, patient arrived in [employer] at 1756 and underwent primary PCI at [...] critical care time were devoted to ER staff,[employer] staff, nursing staff, patient and family both [...] % (Auto) 63.6 Lymph % (Auto) 25.7 Mills % (Auto) 8.7 Eos % (Auto) 0.7 Baso % (Auto) 1.3 Nucleat RBC Rel Count 0.1 Neut # (Auto) 5.5 Lymph # (Auto) 2.2 Mills # (Auto) 0.7 Eos # (Auto) 0.1 [...] Troponin I High Sens 10.2 6295.7 H* 56441.3 H* B-Natriuretic Peptide 124.0 H Total Protein [...] % (Auto) 68.0 Lymph % (Auto) 20.4 Mills % (Auto) 10.2 Eos % (Auto) 0.5 Baso % (Auto) 0.9 Nucleat RBC Rel Count 0.1 Neut # (Auto) 5.7 Lymph # (Auto) 1.7 Mills # (Auto) 0.9 H Eos # (Auto) [...] Total Creatine Kinase Troponin I High Sens 55801.9 H* 23113.0 H* 19472.4 H* B-Natriuretic Peptide Total Protein Albumin Globulin [...] <Electronically signed by Reji Frausto DO> 10/28/23 1150 [facility] Work Phone: [phone] History and physical note Author Reji Frausto [facility] October 27, 2023 6:21pm Note Date/Time October 27, 2023 5:5 1pm [facility] [address] [place] [address] Cardiology H&P Signed Patient: Genny Barboza MR#: [id number] 3012 : 1940 Acct:[id number] Age/Sex: 83 / F Adm Date: 4 Loc: Room: Type: [facility] Attending Dr: Reji Frausto DO Copies to: [...] administered under my direction, patient arrived in [employer] at 1756 and underwent primary PCI at [...] critical care time were devoted to ER staff,[employer] staff, nursing staff, patient and family both pre and post procedurally. Review of Systems Review of Systems All other systems reviewed & are negative unless noted below or in HPI Constitutional Constitutional: Reports as per HPI Cardiovascular Cardiovascular: Reports as per HPI and Reports chest pain at rest [facility] Medical History Lung nodule CT: 1.7cm [...] x10E3/uL Lymph # (Auto) 2.2 (1.00-4.8) x10E3/uL Mills # (Auto) 0.7 (0.0-0.8) x10E3/uL Eos # [...] results cardiology: sinus rhythm EKG shows: bradycardia OR, pacemaker, normal Myocardial infarction: inferior OR (acute or recent) A&P - Cardiology (1) ST elevation myocardial infarction (STEMI) of inferior wall: Code(s): I21.19 - ST elevation (STEMI) myocardial infarction involving other coronary artery of inferior wall Plan Proceed with emergency cath and PCI Documented By: Reji Frausto DO 10/27/23 1750 Signed By: <Electronically signed by Reji Frausto DO> 10/27/23 1821 [facility] Work Phone: 1([phone]) 545-661008-04-2024 [facility]08-[facility]-2024 [facility]08-[facility]-2024 Procedure note [facility]01-30-2024 Evaluation note* Encounter Date Diagnosis Assessment Notes Treatment Notes Treatment Clinical Notes Mar, Primary hypertension (ICD-10 - I10) [facility] Other 01-29-2024 Evaluation note* Encounter Date Diagnosis Assessment Notes Treatment Notes Treatment Clinical Notes Mar, Lung nodule (ICD-10 - R91.1) [facility] Other 01-24-2024 Evaluation note* Encounter Date Diagnosis Assessment Notes Treatment Notes Treatment Clinical Notes Mar, Lung mass (ICD-10 - R91.8) [facility] Other 01-19-2024 Evaluation note* Encounter Date Diagnosis Assessment Notes Treatment Notes Treatment Clinical Notes Mar, Fall, initial encounter (ICD-10 - W19.XXXA) She denies CP, DASILVA, palpitations or lightheadedness Tripped over her shoe laces Fall precautions Mar, Right arm pain (ICD-10 - M79.601) Not sure how she landed. Ice, heat Mar, Contusion of right upper extremity, initial encounter (ICD-10 - S40.021A) [facility] Other 01-15-2024 Evaluation note* Encounter Date Diagnosis Assessment Notes Treatment Notes Treatment Clinical Notes Mar, Left lower quadrant abdominal pain (ICD-10 - R10.32) Mar, Diarrhea, unspecified type (ICD-10 - R19.7) [facility] Other 01-08-2024 Evaluation note* Encounter Date Diagnosis Assessment Notes Treatment Notes Treatment Clinical Notes Mar, Irritable bowel syndrome without diarrhea (ICD-10 - K58.9) [facility] Other 01-02-2024 Evaluation note* Encounter Date Diagnosis [...] would refer for colonoscopy to exclude colitis [facility] Other 12-21-2023 Evaluation note* Encounter Date Diagnosis Assessment Notes Treatment Notes Treatment Clinical Notes Feb, Gastroesophageal ref lux disease with esophagitis without hemorrhage (ICD-10 - K21.00) [facility] Other 11-28-2023 Evaluation note* Encounter Date Diagnosis Assessment Notes Treatment Notes Treatment Clinical Notes Jan, Dysuria (ICD-10 - R30.0) [facility] Other 11-17-2023 Evaluation note* Encounter Date Diagnosis [...] patient on monthly SBE and yearly mammograms. [facility] Other 06-29-2023 Evaluation note* Encounter Date Diagnosis Assessment Notes Treatment Notes Treatment Clinical Notes Aug, Primary hypertension (ICD-10 - I10) [facility] Other 06-05-2023 Evaluation note* Encounter Date Diagnosis [...] best 2/3 readings w/ goal < 135-85 [facility] Other 06-02-2023 Evaluation note* Encounter Date Diagnosis Assessment Notes Treatment Notes Treatment Clinical Notes Aug, Dysuria (ICD-10 - R30.0) [facility] Other 04-17-2023 Evaluation note* Encounter Date Diagnosis Assessment Notes Treatment Notes Treatment Clinical Notes Jun, Primary hypertension (ICD-10 - I10) This patient is instructed to consume a healthy, low-fat, low-salt diet. They are also encouraged to continue exercise to achieve/maintain a normal BMI. Jun, Nicotine dependence, cigarettes, in remission (ICD-10 - F17.211) Continue abstinence [facility] Other 03-21-2023 Evaluation note* Encounter Date Diagnosis Assessment Notes Treatment Notes Treatment Clinical Notes May, Primary hypertension (ICD-10 - I10) [facility] Other 03-20-2023 Evaluation note* Encounter Date Diagnosis Assessment Notes Treatment Notes Treatment Clinical Notes May, Primary hypertension (ICD-10 - I10) [facility] Other 02-28-2023 Evaluation note* Encounter Date Diagnosis Assessment Notes Treatment Notes Treatment Clinical Notes Apr, Primary hypertension (ICD-10 - I10) [facility] Other 02-27-2023 Evaluation note* Encounter Date Diagnosis [...] (ICD-10 - F17.211) Continue abstinence Apr, Other [facility] Other 02-27-2023 History of Present illness Narrative* Sudheer Haro MD - 05/21/2022 10:00 AM EST Images from the original note were not included. EMERGENCY TRIAGE, TREAT AND TRANSPORT (ET3) DOCUMENTATION OF TELEHEALTH VISIT Date / Time: 05/21/2022944 Name: Genny Barboza : 1940 SSN: (Not on file) EMS Agency: [facility] [x] Verbal consent obtained [] [...] the typically is not available at a [place] primary care physician's office.Patient declined using ambulance go to the ER, and her daughter who was present on scene will driveher the 4 minutes will take to get to the [facility]. I advised her to call 911 [...] by: Sudheer Haro MD documented in this [id number] Evaluation note* Encounter Date Diagnosis Assessment Notes Treatment Notes Treatment Clinical Notes Apr, Nausea (ICD-10 - R11.0) [facility] Other Discharge summary Author Reji Frausto [facility] October 29, 2023 3:50pm Note Date/Time October 29, 2023 3:4 8pm [facility] [address] [place], [place] [id number] Discharge Summary Signed Patient: Genny Barboza MR#: [id number] : 1940 Acct:[id number] Age/Sex: 83 / F Adm Date: 4 Loc: Room: 3Q3282-[address]: Reji Frausto DO Copies to: [...] female presented with acute inferior ST elevation OR on Saturday, October 27, 2023 and underwent rapid revascularization of the proximal RCA with large 4 mm drug-eluting stent within 60 minutes. LV function is preserved. Shedoes have small vessel diagonal branch disease that is going to be treated conservatively. She had no postoperative for post OR complications, arrhythmia,heart failure or recurrent angina. She will be discharged this afternoon, currently on aspirin 81 daily, [id number] twice daily, metoprolol 25 twice daily, losartan [...] doctor or pharmacist, without first calling the stone cutter who implanted the stent. If you require [...] weight lifting, stair steppers, etc. until the stone cutter approves these activities. Check with the stone cutter on your first follow-up visit. CALL YOUR WOOD BUCKER: -If bleeding should occur from the catheter insertion site- apply pressure to the site then immediately call us. -Report any fever, redness, drainage, increased swelling, or firmness at the catheter insertion site. Some bruising or slight swelling may be present at thetime of discharge. -Should arm or leg become cold, numb, white, or blue, contact the stone cutter immediately. -IF you should experience episodes of [...] Cardiopulmonary Rehabilitation program is recommended. The attending stone cutter or a nurse clinician should provide you with specificinstructions regarding activity, diet, medications, and further follow up for you. Follow the medication instructions provided on your discharge. If the dosages and instructions on this sheet differ from the dosage and instructions on the bottle, follow the instructions on the bottle. [facility] is not responsible for incorrect [...] % (Auto) 73.5, Lymph % (Auto) 15.8, Mills % (Auto) 9.4, Eos % (Auto) 0.6, Baso % (Auto) 0.7, Nucleat RBC Rel Count 0.1, Neut # (Auto) 5.9, Lymph # (Auto) 1.3, Mills # (Auto) 0.8, Eos # (Auto) 0.0, Baso # (Auto) 0.1, PHA Creatinine Clear 41.47, Sodium 138, Potassium 4.0, Chloride 109 H, Carbon Dioxide 24.3, Anion Gap 8.7, BUN 17, Creatinine 0.91, Est GFR (CKD-EPI) > 60.0, Glucose 105 H, Calcium 9.3 Documented By: Reji Frausto DO 10/29/23 3399 Signed By: <Electronically signed by Reji Frausto DO> 10/29/23 2337 [facility] Work Phone: Discharge summary Author Mendez Lambert [facility] Note Date/Time November 23, 2024 1:27pm [facility] [address] [place], [place] [id number] Discharge Summary Signed Patient: Genny Barboza MR#: [id number] : 1940 Acct:[id number] Age/Sex: 84 / F Adm Date: 5 Loc: Room: [address] [place] [address]: Mendez Lambert MD Copies to: [...] can be found in the EHR of [facility]. The patient left hospital appropriately [...] Continuity of Care Document Health Concerns: A [facility] screening has identified you as [...] Four Ways to Beat the Frailty Risk [email or web address]- hc-wsel-pmd-frailty-risk Exam Physical Exam Vital Signs: Temp Pulse Resp BP Pulse Ox O2 Del Method 98.0 F 71 18 118/76 100 Room Air 11/23/24 09:00 11/23/24 09:00 11/23/24 09:00 11/23/24 09:00 11/23/24 09:00 11/23/24 09:00 Diagnostic Studies Completed and Pending Studies Labs on day of discharge: 11/22/24 20:09: Urine Color Colorless, Urine Appearance Clear, Urine pH 5.5, Ur Specific [place] 1.005, Urine Protein Negative, Urine Glucose (UA) [...] % (Auto) 63.5, Lymph % (Auto) 20.6, Mills % (Auto) 13.9, Eos % (Auto) 0.9, Baso % (Auto) 1.1, Nucleat RBC Rel Count 0.1, Neut # (Auto) 4.8, Lymph # (Auto) 1.5, Mills # (Auto) 1.0 H, Eos # (Auto) [...] signed by Mendez Lambert MD> 11/23/24 1327 [facility] Work Phone: Evaluation note* Diagnosis Hypertensive urgency- Primary [facility] InformationNort [employer] Other Evaluation noteNo assessment information available [facility] Work Phone: evaluation note* Diagnosis Onset Date Resolution Status Change in bowel habits acute Primary hypertension acute Rotator cuff arthropathy of right shoulder acute Hx of malignant neoplasm of colon noneactive Pain in right shoulder nonea ctive [facility] Work Phone: Evaluation note* Diagnosis Onset Date Resolution Status Change in bowel habits acute Primary hypertension acute Rotator cuff arthropathy of right shoulder acute Hx of malignant neoplasm of colon noneactive Pain in right shoulder nonea ctive Primary hypertension acute Rotator cuff arthropathy of right shoulder acute Pain in right shoulder nonea ctive Change in bowel habits acute [facility] Work Phone: evaluation note* Diagnosis Onset Date Resolution Status ST elevation myocardial infa rction (STEMI) of inferior wall acute [facility] Work Phone: evaluation note* Diagnosis Onset Date Resolution Status ASHD (arteriosclerotic heart disease) acute Hypercholesterolemia acute Lung nodule acute Medication side effects acut e Nicotine addiction acute Primary hypertension acute Shortness of breath acute [facility] Work Phone: evaluation note* Diagnosis Onset Date Resolution Status ASHD (arteriosclerotic heart disease) acute Hypercholesterolemia acute IBS (irritable bowel syndrome) acute Lung nodule acute Nicotine addiction acute Primary hypertension acute ASHD (arteriosclerotic heart disease) acute Hypercholesterolemia acute IBS (irritable bowel syndrome) acute Primary hypertension acute [facility] Work Phone: Evaluation note* Diagnosis Onset Date [...] bowel syndrome) acute Intermittent abdominal pain acute [facility] Work Phone: Evaluation note* Diagnosis Coronary artery disease, unspecified vessel or lesion type, unspecified whether angina present, unspecified whether [place] or transplanted heart History of PTCA Postsurgical percutaneous transluminal coronary angioplasty status History of ST elevation myocardial infarction (STEMI) Shortness of breath Former smoker Personal history of tobacco use, presenting hazards to health BMI 26.0-26.9,adult Hyperlipidemia, unspecified hyperlipidemia type documented in this encounter [facility] Work Phone: Evaluation note* Diagnosis Near syncope Fatigue, unspecified type History of PTCA Postsurgical percutaneous transluminal coronary angioplasty status Essential hypertension Unspecified essential hypertension History of ST elevation myocardial infarction (STEMI) Shortness of breath Coronary artery disease, unspecified vessel or lesion type, unspecified whether angina present, unspecified whether [place] or transplanted heart Former smoker Personal history of tobacco use, presenting hazards to health BMI 27.0-27.9,adult documented in this encounter [facility] Work Phone: Evaluation note* Diagnosis Coronary artery disease, unspecified vessel or lesion type, unspecified whether angina present, unspecified whether [place] or transplanted heart History of ST elevation myocardial infarction (STEMI) History of PTCA Postsurgical percutaneous transluminal coronary angioplasty status Hyperlipidemia, unspecified hyperlipidemia type Essential hypertension Unspecified essential hypertension BMI 27.0-27.9,adult Former smoker Personal history of tobacco use, presenting hazards to health documented in this encounter [facility] Work Phone: Evaluation note* Diagnosis Hyperlipidemia, unspecified hyperlipidemia type- Primary Coronary artery disease, unspecified vessel or lesion type, unspecified whether angina present, unspecified whether [place] or transplanted heart History of ST elevation myocardial infarction (STEMI) Essential hypertension Unspecified essential hypertension BMI 27.0-27.9,adult Fatigue, unspecified type Shortness of breath documented in this encounter [facility] Work Phone: Evaluation note* Diagnosis Hyperlipidemia, unspecified hyperlipidemia type- Primary Coronary artery disease, unspecified vessel or lesion type, unspecified whether angina present, unspecified whether [place] or transplanted heart History of ST elevation myocardial infarction (STEMI) Essential hypertension Unspecified essential hypertension BMI 27.0-27.9,adult Fatigue, unspecified type Shortness of breath Essential hypertension- Primary Unspecified essential hypertension Fatigue, unspecified type BMI 26.0-26.9,adult documented in this encounter [facility] Work Phone: Evaluation note* Diagnosis Hyperlipidemia, unspecified hyperlipidemia type- Primary Coronary artery disease, unspecified vessel or lesion type, unspecified whether angina present, unspecified whether [place] or transplanted heart History of ST elevation myocardial infarction (STEMI) Essential hypertension Unspecified essential hypertension BMI 27.0-27.9,adult Fatigue, unspecified type Shortness of breath Essential hypertension- Primary Unspecified essential hypertension Fatigue, unspecified type BMI 26.0-26.9,adult BMI 27.0-27.9,adult- Primary Essential hypertension Unspecified essential hypertension Localized edema Edema documented in this encounter [facility] Work Phone: History and physical note Author Reji Frausto [facility] October 27, 2023 6:21pm Note Date/Time October 27, 2023 5:5 1pm [facility] [address] [place] [address] Cardiology H&P Signed Patient: Genny Barboza MR#: [id number] : 1940 Acct:[id number] Age/Sex: 83 / F Adm Date: 4 Loc: Room: Type: [facility] Attending Dr: Reji Frausto DO Copies to: [...] administered under my direction, patient arrived in [employer] at 1756 and underwent primary PCI at [...] critical care time were devoted to ER staff,[employer] staff, nursing staff, patient and family both pre and post procedurally. Review of Systems Review of Systems All other systems reviewed & are negative unless noted below or in HPI Constitutional Constitutional: Reports as per HPI Cardiovascular Cardiovascular: Reports as per HPI and Reports chest pain at rest [facility] Medical History Lung nodule CT: 1.7cm [...] x10E3/uL Lymph # (Auto) 2.2 (1.00-4.8) x10E3/uL Mills # (Auto) 0.7 (0.0-0.8) x10E3/uL Eos # [...] results cardiology: sinus rhythm EKG shows: bradycardia OR, pacemaker, normal Myocardial infarction: inferior OR (acute or recent) A&P - Cardiology (1) ST elevation myocardial infarction (STEMI) of inferior wall: Code(s): I21.19 - ST elevation (STEMI) myocardial infarction involving other coronary artery of inferior wall Plan Proceed with emergency cath and PCI Documented By: Reji Frausto DO 10/27/23 1750 Signed By: <Electronically signed by Reji Frausto DO> 10/27/23 1821 [facility] Work Phone: History general [...] History CYSTOSCOPY Hospitalization History SEE SURGICAL HX [facility] Other Hospital Discharge instructions Additional Instructions We evaluated you for your shortness of breath. We discussed this is most likely due to your Brilinta. Please see your stone cutter this afternoon at your previously scheduled appointment. Please follow close with your primary care doctor as well. Please return to the emergency department if you develop any worsening or concerning symptoms.[facility] Work Phone: Reason for referral (narrative)* Consultation (Routine) - Authorized Specialty Diagnoses / Procedures Referred By Contac t Referred To Contact Cardiology Diagnoses Coronary artery disease, unspecified vessel or lesion type, unspecified whether angina present, unspecified whether [place] or transplanted heart Procedures Follow Up In Cardiology Inderjit Frausto, [address] [place] [address] 2, [place] [id number] Inderjit Frausto, [address] [place] [address] 2, [place] [phone] Referral ID Status Reason Start Date Expiration Date V isits Requested Visits Authorized [id number] Authorized 11/07/2023 11/06/2024 1 1 * Consultation (Routine) - Authorized Specialty Diagnoses / Procedures Referred By Contac t Referred To Contact Cardiac Rehabilitation Diagnoses Coronary artery disease, unspecified vessel or lesion type, unspecified whether angina present, unspecified whether [place] or transplanted heart History of PTCA History of ST elevation myocardial infarction (STEMI) Inderjit Frausto DO [address] [place] [address] 2, [place] [id number] Referral ID Status Reason Start Date Expiration Date Visits Requested Visits Authorized [id number] Authorized Specialty Services Required 11/07/2023 11/06/2024 1 1 Scheduling Instructions [facility] Work Phone: Reason for referral (narrative)No reason for referral information [facility] Work Phone: Summary Purpose Family History Relationship [...] Procedures ECG 12 Lead Inderjit Frausto, [address] [facility] 2, [address] [address] Referral ID Status Reason Start Date Expiration Date V isits Requested Visits Authorized [id number] Authorized 12/20/2023 12/19/2024 1 1 Additional Source Comments Reason for Visit (unrecogniz ed section and content) Reason Comments Headache Hypertension Reason Comments TCM OR on 10/27/23 at [facility] Reason Comments Follow-up Dyspnea, near syncop e, med concerns Specialty Diagnoses / Procedures Referred By Contac t Referred To Contact Diagnoses Near syncope Fatigue, unspecified type Procedures ECG 12 Lead Inderjit Frausto, DO [address] [facility] [address], [address] [address] Referral ID Status Reason Start Date Expiration Date V isits Requested Visits Authorized [id number] Authorized 12/20/2023 12/19/2024 1 1 Reason Comments Follow-up 6m Coronary Artery Disease Specialty Diagnoses / Procedures Referred By Contac t Referred To Contact Cardiology Diagnoses Coronary artery disease, unspecified vessel or lesion type, unspecified whether angina present, unspecified whether [place] or transplanted heart Procedures Follow Up In Cardiology Inderjit Frausto, [address] [facility] 2, [address] [address] Phone: tel: fax: Inderjit Frausto DO [address] [facility] 2, [address] [address] Phone: tel: fax: Referral ID Status Reason Start Date Expiration Date V isits Requested Visits Authorized [id number] Pending Review 11/07/2023 11/06/2024 1 1 Reason Comments Follow-up Shortness of breath, fatigue Reason Comments Follow-up 1 months Coronary ar shira disease, unspecified vessel or lesion type, unspecified whether angina present, unspecified whether [place] or transplanted heart Specialty Diagnoses / Procedures Referred By Contac t Referred To Contact Cardiology Diagnoses Fatigue, unspecified type Procedures Follow Up In Cardiology Vanessa Dave, [employer]IT[employer] SALES CONSULTANT [address] [facility] 2, [address] [address] Phone: tel: fax: Referral ID Status Reason Start Date Expiration Date V isits Requested Visits Authorized [id number] Authorized 08/05/2024 08/05/2025 1 1 Reason Comments Follow-up 7 month Follow up fo r Hypertension Specialty Diagnoses / Procedures Referred By Contac t Referred To Contact Cardiology Diagnoses Essential hypertension Procedures Follow Up In Cardiology Vanessa Dave, TICK SEWER-TERRITORY SALES CONSULTANT [address] [facility] 2, [address] [address] Phone: tel: fax: Referral ID Status Reason Start Date Expiration Date V isits Requested Visits Authorized [id number] Authorized 09/29/2024 09/29/2025 1 1 INFORMATION SOURCE (unrecogn ized section and content) DATE CREATED AUTHOR 05/23/2022 [facility] DATE CREATED AUTHOR AUTHOR'S ORGANIZ ATION 05/25/2022 [facility] DATE CREATED AUTHOR AUTHOR'S ORGANIZ ATION 04/25/2023 [facility] EPIC DATE CREATED AUTHOR AUTHOR'S ORGANIZ ATION 11/10/2024 [facility] DATE CREATED AUTHOR AUTHOR'S ORGANIZ ATION 11/28/2024 [facility] y[facility] Care Teams (unrecognized sec tion [...] Team Status: Active Member Role Status Renetta uD DO Primary Care Provider Active Team Status: [...] December 12, 2023 End: December 12, 2023 Research Analyst Relationship Specialty Start Date End Date Branden Du DO [address] [place] [address] PCP - General Internal Medicine 11/07/23 Maura Andres RN Care Visual Merchandising Specialist 10/30/23 Research Analyst Relationship Specialty Start Date End Date Branden Du DO [address] [place] [address] PCP - General Internal Medicine 11/07/23 Maura Andres RN Care Visual Merchandising Specialist 10/30/23 Research Analyst Relationship Specialty Start Date End Date Branden Du DO [address] [place] [address] PCP - General Internal Medicine 11/07/23 Research Analyst Relationship Specialty Start Date End Date Branden Du DO [address] [place] [address] PCP - General Internal Medicine 11/07/23 Team [...] September 29, 2024 End: September 29, 2024 Research Analyst Relationship Specialty Start Date End Date Branden Du DO [address] [place] [address] PCP - General Internal Medicine 11/07/23 Team Status: Active Member Role Status Dates Branden Du DO Primary Care Provider Active Start: October 03, 2024 Laurie Mills MD Attending Provider Active Sta rt: October 03, 2024 Team Status: Inactive Member Role Status Dates Laurie Mills MD Attending Provider Active Sta rt: October 03, 2024 End: October 03, 2024 Research Analyst Relationship Specialty Start Date End Date Branden Du DO [address] [place] [address] PCP - General Internal Medicine 11/07/23 Team [...] BE BASED ON THE PRIMARY CLINICAL RECORDS. [email or web address] [facility]. provides no warranty or guarantee of the accuracy or completeness of information in this document.
== END 2025-01-07 12:36 | disposition home or self-care (01) ==
LOC: CT 12:35
PROVIDERS: PCP Internal Medicine
DX: R91.1 Solitary pulmonary nodule (principal); Z78.0 Asymptomatic menopausal state; Z87.311 Personal history of (healed) other pathological fracture; M85.88 Other specified disorders of bone density and structure, other site
CPT/HCPCS: 71250; 77080

== ENCOUNTER 2025-01-28 12:23 | Outpatient (OUT) | payer MEDICARE, SELFPAY ==
--- OUTSIDE RECORDS SUMMARY | 2025-01-27 05:48 | XMS_ITS | Continuity of Care Document ---
Author Organization [facility] Address [address] [place] [address] Phone Care Team Providers Care Senior Commissary Agent Name Role Phone Branden Du DO Primary Care Provider Branden Du DO Attending Provider [phone] Maura Perez CMA Attending Provider Unavaila Justus Lopes DO Attending Provider Roxane Granda APRN Attending Provider Trinity Obrien MD Emergency Provider [phone] Benjamin Elias MD Admit Provider [phone] Mendez Lambert MD Attending Provider [phone] Shmuel Martinez APRN Attending Provider Shannon Chan MD Attending Provider Unavailab le Care Teams Patient Care Team Team Status: Active Member Role/Relationship Status Dates Branden Du DO Primary Care Provider Active Visit Care Team Team Status: Inactive Member Role/Relationship Status Dates Branden Du DO Primary Care Provider Active Start: November 04, 2024 End: November 04luanne Du DOAttending ProviderActiveStart: November 04, 2024 End: November 04, 2024 Visit Care Team Team Status: Active Member Role/Relationship Status Dates Branden Du DO Primary Care Provider Active Start: November 09, 2024 Maura Perez CMAAttending ProviderActiveStart: November 09, 2024 Visit Care Team Team Status: Inactive Member Role/Relationship Status Dates Branden Du DO Primary Care Provider Active Start: November 16, 2024 End: November 16enmary ann Du DOAttending ProviderActiveStart: November 16, 2024 End: November 16, 2024 Visit Care Team Team Status: Inactive Member Role/Relationship Status Dates Branden Du DO Primary Care Provider Active Start: November 18, 2024 End: November 18, 2024Jusantiago Damon DOAttending ProviderActiveStart: November 18, 2024 End: November 18, 2024 Visit Care Team Team Status: Inactive Member Role/Relationship Status Dates Branden Du DO Primary Care Provider Active Start: November 19, 2024 End: November 19, 2024Roxane Granda APRNAttenmonique ProviderActiveStart: November 19, 2024 End: November 19, 2024 Visit Care Team Team Status: Inactive Member Role/Relationship Status Dates Branden Du DO Primary Care Provider Active Start: November 22, 2024 End: November 23, 2024Delfino Castellano ProviderActiveStart: November 22, 2024 End: November 23ndLara Olsen ProviderActiveStart: November 22, 2024 End: November 23, 2024Musadarsh Lambert MDAttending ProviderActiveStart: November 22, 2024 End: November 23, 2024 Visit Care Team Team Status: Active Member Role/Relationship Status Dates Branden Du DO Primary Care Provider Active Start: November 26, 2024 Maura Perez CMAAttending ProviderActiveStart: November 26, 2024 Visit Care Team Team Status: Inactive Member Role/Relationship Status Dates Barnden Du DO Primary Care Provider Active Start: December 01, 2024 End: December 01, 2024Charlotte Chilel ProviderActiveStart: December 01, 2024 End: December 01, 2024 Visit Care Team Team Status: Inactive Member Role/Relationship Status Dates Branden Du DO Primary Care Provider Active Start: December 03, 2024 End: December 03enmary ann Du DOAttending ProviderActiveStart: December 03, 2024 End: December 03, 2024 Visit Care Team Team Status: Inactive Member Role/Relationship Status Dates Branden Du DO Primary Care Provider Active Start: December 14, 2024 End: December 14, 2024JuKo Gilliland ProviderActiveStart: December 14, 2024 End: December 14, 2024 Visit Care Team Team Status: Active Member Role/Relationship Status Dates Branden Du DO Primary Care Provider Active Start: December 18, 2024 NirGianfranco Palmer Chan ProviderActiveStart: December 18, 2024 Visit Care Team Team Status: Inactive Member Role/Relationship Status Dates Branden Du DO Primary Care Provider Active Start: December 29, 2024 End: December 29, 2024Charlotte Kraus ProviderActiveStart: December 29, 2024 End: December 29, 2024 Visit Care Team Team Status: Inactive Member Role/Relationship Status Dates Branden Du DO Primary Care Provider Active Start: January 12, 2025 End: January 12, 2025Charlotte Chilel ProviderActiveStart: January 12, 2025 End: January 12, 2025 Patient Care Team Team Status: Inactive Member Role/Relationship Status Dates Branden Du DO Primary Care Provider Active Start: January 27, 2025 End: January 27, 2025Charlotte Chilel ProviderActiveStart: January 27, 2025 End: January 27, 2025 Chief Complaint and Reason for Visit Chief Complaint Admit Date MRI results November 04, 2024 1: 56pm Amb Documentation November 09, 2024 11 :45am stomach extended November 16, 2024 2: 40pm ER TB RT SHOULDER INJURY WX October 11:26am [facility] er f/u had a fall November 19, 2024 9:58am constipation November 22, 2024 10 :23pm Amb Documentation November 26, 2024 10:33am Constipation December 01, 2024 1:22pm [facility] f/u December 03, 2024 11:19am [facility] 3 WEEKS December 14, 2024 11:16am MRI results December 29, 2024 11 :25am 6 week follow up/constipation January 122024 11:18am 2 week follow up-constipation January 272024 9:58am Reason for Visit Admit Date Cervical spondylosis [...] of T11 vertebra Oct payam 2024 11:25am Irritable bowel syndrome with constipati on January 12, 2025 11:18am Reason for Referral Type Reason(s) Provider Provider Contact Information P martín Address Start Date Office is closed for the holiday. Please call tomorrow on 11/24/24 to schedule a post hospital follow up apt within the next seven days.Branden Du Keena Phone: [phone] [facility] [address] Health Concerns Concerns Start Date A [facility] screening has identified you as FRAIL or AT RISK FOR FRAILTY. This puts you at a higher risk for infection, illness, falls, and other injuries. Here are four ways to help you reduce your risk of frailty: 1. IDENTIFY EARLY SIGNS OF FRAILTY ??? Discuss contributing factors and concerns with your doctor 2. BE ACTIVE ??? Walking and light strengthening exercises will help reduce weakness 3. EAT WELL ??? Aim for three healthy meals a day that are high in protein 4. THINK POSITIVE ??? Keep your mind active by being sociable and continuing to learn References: Stay Strong: Four Ways to Beat the Frailty Risk [email or web address]://[email or web address]/[email or web address]-[email or web address]/crna-ypnehs-kdnt- hqlb-yd-bzwv-the-fra ilty-risk Allergies, Adverse Reactions, Alerts Allergen Type Severity Reaction Last Updated Verified Status Comments Penicillins Allergy Unknown Unknown Reaction January 12, 2025 10:23am Yes Active Onset Date: 09/07/2013 Social History Smoking Status Status Start Date End Date Date of Observa tion Ex-smoker (finding) November 23, 2024 1:04am Observation Status Observation Response Date of Response Legal Sex Female (finding) Sex Assigned At BirthFemaleJuly 1940 Family History Relationship Condition Age at Onset Recorded Date/T megan father Unknown family memberDeceasedUnknownmotherDeceasedUnknown Problems Active Problems Problem Diagnosis/Recorded Date Onset Date Status C omments Alternating constipation and diarrhea December 01, 2024 1:37pm Unknown Active Rotator cuff arthropathy of right shoulderFebruary 2023 11:30amUnknown ActiveCompression fracture of L1 lumbar vertebraAugust 2024 9:50amUnknown ActiveCompression fracture of T11 vertebraOctober 2024 11:12amUnknownActive Medicare annual wellness visit, subsequentDecember 2023 3:14pmUnknown ActiveGastroesophageal reflux disease with esophagitis without hemorrhage May 17, 2023 1:19pmUnknownActiveNicotine addictionAugust 2023 10:49amUnknownActiveHistory of colon resectionFebruary 2023 1:19pmUnknown Activecolon cancerScreening mammogram for breast cancerDecember 2023 3:16pmUnknownActiveInternal derangement of right shoulderAugust 2024 11:05amUnknownActiveHypercholesterolemiaAugust 2023 10:49amUnknownActive Post-menopausalAugust 2024 11:09amUnknownActiveLung noduleMay 2023 7:28pmUnknownActiveCT: 1.7cm nodule RLL - ET/CT: no FDG avid nodules - 04/2023,CT: 1.9cm nodule RLL - 06/2023,CT:2.6cm RLL mass - 02/2024,CT: 2cm RLL nodule - 08/2024,CT: right basilar consolidation - hange in stool caliber June 20, 2023 2:13pmUnknownActiveCervical spondylosisMay 2024 9:34pm UnknownActiveMRI: C3-4 mod foraminal stenosis, C4-5 mod foraminal and canal stenosis, C5-6 severe right foraminal stenosis, C7-T1 moderate B/L foraminal narrowing - 10/2024Primary hypertensionFebruary 2023 1:19pmUnknownActive History of fragility fractureAugust 2024 11:09amUnknownActiveRight shoulder strainAugust 2024 11:06amUnknownActiveRight lumbar radiculopathy November 19, 2024 9:59amUnknownActiveAbdominal painAugust 2024 2:48pm UnknownActiveIrritable bowel syndrome with constipationOctober 2024 11:33amUnknownActiveConstipationOctober 2024 10:22amUnknownActiveIBS (irritable bowel syndrome)November 12, 2023 11:35amUnknownActiveLumbar spondylosisFebruary 2023 1:19pmUnknownActiveMRI: L4-5 severe canal stenosis w/ severe right/mod left foraminal stenosis, subacute fx T11, L1 - 9 /5ASHD (arteriosclerotic heart disease)November 10, 2023 10:48amUnknownActive Inactive/Resolved Problems Problem Diagnosis/Recorded Date Onset Date Status C omments Medication side effects November 05, 2023 10:32am Unknown Resolved History of colon cancerMarch 2023 2:13pmUnknownResolvedShortness of breath November 05, 2023 10:32amUnknownResolvedST elevation myocardial infarction (STEMI) of inferior wallAugust 2023 4:18pmUnknownResolvedConstipationAugust 2024 7:18pmUnknownResolvedAcute hypokalemiaAugust 2024 7:18pmUnknown Resolved Medications Medication Status Dose Units Route Directions Qty Days Refills S tart Date Stop Date End Date Reason(s) Instructions Adherence Sod Picosulf-Mag Ox-Citric Ac (Clenpiq) 10 mg-3.5 gram- 12 gram/175 mL solution Discontinued 175 ML PO Daily 350 0 0 Ap ril 2023 7:42am October 27, 2023 8:40pmBowel Preptake first dose at 3PM evening before colonoscopy; 2nd dose at 9pm the night before colonoscopyOmeprazole 40 mg capsule,delayed release(DR/EC)Discontinued0.ROUTE.UNIQYRV603Xnol 2023 11:27amAugust 2023 4:26amTAKE ONE CAPSULE BY MOUTH ONCE DAILY IN THE MORNING, 30 MINUTES BEFORE MEALMetoprolol Tartrate 50 mg znrlmeVmilngrpilex47FT POTwice paato072547Mqjoocqbn 2023 2:23pmDecember 2023 10:21amLosartan 50 mg jbkfndYareot06JIXJCphpc dailySeptember 2023 5:04pmComplies with drug therapyAmlodipine 5 mg eaqtfrOgjacoyoecrj0DHLMMdibj652399Hrvwzprkj 2023 11:00pmSeptember 2023 11:35amAmlodipine 5 mg tabletDiscontinued0.ROUTE .YUJQRXF0828Dwdziwswp 2023 11:35amMay 2024 12:26pmTAKE ONE TABLET BY MOUTH DAILYScopolamine Base 1 mg over 3 days patch 3 dylGfmlfxwvdezr7ZWLQW TRANSDERMLEvery 72 okhah410Tltsjidp 2023 12:00amApril 2024 10:17am Omeprazole 40 mg capsule,delayed release(DR/EC)Tqfhup04AEFWFfmdq as needed for jyje70994Zzfyylr 2024 2:07pmComplies with drug therapyMetoprolol Tartrate 25 mg ikprjtSvyptgtznpna35.5MGPOTwice dailyMay 2024 12:25pmJuly 2024 10:50amAmlodipine 5 mg tabletDiscontinued0.ROUTE.EAJBLSV0438Aja 2024 12:26pmOctober 2024 6:22amTAKE ONE TABLET BY MOUTH DAILYCarvedilol 6.25 mg tabletActive6.25MGPOTwice rycpb228Choe 2024 11:00pmmust administer with a meal/foodComplies with drug therapyAmlodipine 5 mg tabletActive0.ROUTE.AGTHNOE52 11October 2024 6:22amTAKE ONE TABLET BY MOUTH DAILYComplies with drug therapyClopidogrel 75 mg ntufpsXndbxl12HLNGZhjrgFauvfu 2024 11:00pm Complies with drug therapyPolyethylene Glycol 3350 (Miralax) 17 gram/dose powder Qengqhjhnowd13LIURInwjr as needed for szavdxmdeyvp6842Ttmxle 2024 11:00pm January 12, 2025 10:24amAmlodipine 5 mg tjdiclBxvahndopnup4HBJIZjwozPkqsyw 2023 11:00pmAugust 2023 2:49pmOmeprazole 40 mg capsule,delayed release(DR/EC)Hqffuehweclz48IKUTHlkrz as needed for painAugust 2023 11:00pm April 10, 2024 2:07pmAtorvastatin 80 mg AmpekcMappka44OAEMIvoax dtofmdi67287 October 28, 2023 11:00pmComplies with drug therapyAspirin 81 mg Tablet,Delayed Release (Dr/Ec)Eyvirb60TIOGGukcw07543Xiewgi 5th, 2024 11:00pmComplies with drug therapyNitroglycerin 0.4 mg Tablet, SublingualActive0.4GZCMRFATSHZQK7U as needed for Chest Fvmw49584Wzkllv2023 11:00pmComplies with drug therapyMetoprolol Tartrate 25 mg UuywwuNanpkfcbdfpy73LIWBAzlsn vuecx817542Ruhaxy2023 11:00pm November 29, 2023 2:23pmTicagrelor (Brilinta) 90 mg RvecumEghaasacuead03GUTD Twice xdrzp170948Oopkbl2023 11:00pmDece2023 4:37pmLosartan 25 mg JgdyldSehifojxqcle38NGMWYajbn vmfvwkm025856Pzjkne2023 11:00pmAugust 2023 11:35amOmeprazole 40 mg capsule,delayed release(DR/EC)Dkhwjcsbntsm80 MGPODaily as needed for acid refluxMar 2023 11:00pmJuly 2023 11:27amMultivitamin qctonlRspztr5CXSRDNdbhnUpvne 2023 11:00pmComplies with drug therapySod Picosulf-Mag Ox-Citric Ac (Clenpiq) 10 mg-3.5 gram- 12 gram/175 mL mpuusqsiLggeamfihfns612EMVVSzyms40759Zkktb 2023 11:00pmApril 2023 7:43amBowel Preptake first dose at 3PM evening before colonoscopy; 2nd dose at 9pm the night before colonoscopyLosartan 50 mg dsqcxqUfwymewgjjda562NBANMdmgk dailySept2023 12:23pmSeptember 2023 5:05pmDicyclomine 10 mg dbhingaWycgbqfnrqbf38QBLCKtrkg tsflb451317Qqifividi2023 11:00pmDecember 2023 1:18pmLosartan 50 mg vpfdfcAtfpcgakhltb91APAYKdfur ftnvw426453 December 01, 2023 6:48pmSept2023 12:32pmDicyclomine 20 mg tablet Neonimiylyzx45NBSJOkeqh qlmpf533751Hqewfybc 18th, 2024 12:00amApril 2024 10:24amClopidogrel (Plavix) 75 mg dknzevFrvuzqiycdnm96KJHOJdpzaBxjihcrr 2023 12:00amAugust 2024 9:28pmPrednisone 10 mg calejaGyunvagqysaf75ZBEGEw Gfvhiqyb8055Enqndp 2024 11:00pmAugust 2024 9:28pm1 tablet PO tid w/ food x 2 days then bid w/ food x 2 days then qd w/ food x 2 daysTizanidine 2 mg nfmaemTseiivpvvxbi0JELmgls at bedtime as needed for muscle esgynbfxoo37784Anlbfj 2024 11:00pmAugust 2024 9:28pm1/2 - 1 tablet orally daily at bedtime PRN;Cholecalciferol (Vitamin D3) 50 mcg (2,000 unit) tablet,vxwuafzzLppiyi19LRK PODailySeptember 2024 11:00pmComplies with drug therapyPolyethylene Glycol 3350 (Miralax) 17 gram/dose liwabiDmcqij67ZNOFEleeb6380Qjyaunuxt 2024 11:00pmComplies with drug therapycalcium acetateActivePONovember 2024 12:00amComplies with drug therapyAmlodipine 5 mg ghnubkVolrbhylirff3ROYXHqrnk May 17, 2023 12:00amMarch 2023 1:35pmFamotidine 40 mg tablet Henrdjawldsf84RMCURjotj at bedtimeFebruary 2023 12:00amMarch 2023 1:35pmHyoscyamine Sulfate (Levsin/Sl) 0.125 mg tablet, sublingualDiscontinued 0.125MGSUBLINGUAL.COMPLEXFebruary 2023 12:00amMay 2023 12:19pm0.125 mg sublingually before meals and at bedtimeLosartan 50 mg ixdblwPpopdysokzfm18DD PODailyFebruary 2023 12:00amAugust 2023 2:49pmMeloxicam 15 mg tablet Gayajflovbjg92MHAMKqamiDwddbcox 2023 12:00amMarch 2023 1:35pm Ondansetron 4 mg tablet,xozrctdopmbxalYnhfurqqiymv4PQRVLzdnk 6 hours as needed May 17, 2023 12:00amMarch 2023 1:35pmLosartan 25 mg tablet Lwwhhwdbzpid12QUGKBlnii uzrmd130965Qtsyce 2023 11:19amSeptember 2023 6:48pmHyoscyamine Sulfate 0.125 mg tablet, sublingualDiscontinued0.125MG SUBLINGUAL2-4 TIMES PER DAY as needed for abdominal pain, vtkalulc666Mchkqu 2023 11:00pmSeptember 2023 12:31pmAmlodipine 5 mg tabletDiscontinued 1CDLLKheny16876Nmszgz 2023 11:00pmSeptember 2023 12:30pmMetoprolol Tartrate 25 mg cbthgeRggphhzkjipy89ZZMGJmbwq dailyDeceer 2023 12:00amMay 2024 12:26pmDicyclomine 20 mg ipqjofYzsbrftyhvaq43PXGQUgjia ijpyz011203 July 20, 2024 10:23amSeptember 2024 12:23pmKetoconazole 2 % shampoo Niamhldjywah1XRIRBIQFETAXL2 Times a ooho460298AywAugust 18, 2024 11:00pmAugust 2024 9:28pmClobetasol 0.05 % fnuzskxtXidcjbaocfxe8OOAJSHXQDUPDSRmqma at bedtime 90719PylAugust 18, 2024 11:00pmAugust 2024 9:28pm Immunizations Immunization Event Date Not Given Reason Dose Number [employer] Lot Number Reason(s) Given Vaccine Information Statement (VIS) Detail Administration Location Fluzone TIV High-Dose 65YR+ December 04, [id number] [facility]-Dose 65YR+December 03, [id number] [facility]influenza, unspecified formulationOctober 2015influenza, unspecified formulationOctober 2016influenza, unspecified formulationOctober 2017influenza, unspecified formulationSeptember 2018influenza, unspecified formulationSeptember 2019influenza, unspecified formulationSeptember 2020influenza, unspecified formulationSeptember neumococcal Conjugate Vaccine, 13 valentNovember 2014 Medical Equipment Device Date Implanted Device Details CL STENT TOMER FRONTIER 4.0 X 18 October 27, 2023 Femoral artery closure plug/patch, synthetic polymerAugust 2023UDI: [id number] Issuing Agency: [facility] Device Id: [id number] Lot Number: [id number] Procedures Procedure Date Performed Status XR KUB November 22, 2024 5:32pm complet ed Relevant Diagnostic Tests and/or Laboratory Data Laboratory Results Test Collection Date/Time Result Date/Time Result Interpretation Reference Range Result Comment Performing Site Urine Other Casts November 16, 2024 4:00pm NONE SEEN #/LPFNONE SEENTroponin I High SensitivityAugust 2024 4:14pm November 16, 2024 4:14pm5.7 pg/mL4.0-51.3CUT-OFF POINTS HAVE BEEN ESTABLISHED BASED ON THE FOURTHUNIVERS DEFINITION OF MYOCARDIAL INFARCTION. THE UPPERREFERENCE LIMIT (URL) OF TROPONIN, DEFINED THE 99THPERCENTILE OF cTnI DISTRIBUTION IN A REFERENCE POPULATION,HAS BEEN CONFIRMED THE DECISION THRESHOLD FOR MIDIAGNOSIS.99TH PERCENTILE = 51.4 PG/MLNOTE: HIGH-SENSITIVITY TROPONIN ASSAY IS NOT INTENDED TO BEUSED IN ISOLATION BUT SHOULD BE INTERPRETED IN CONJUNCTIONWITH OTHER DIAGNOSTIC AND CLINICAL INFORMATION.Magnesium Level November 16, 2024 4:14pmAugust 2024 4:14pm2.2 mg/dL1.8-2.4Activated Partial Thromboplast TimeAugust 2024 4:14pmAugust 2024 4:14pm21.9 secBelow low .3-36.2Prothromb Time International RatioAugust 2024 4:14pmAugust 2024 4:14pm0.97DESIRED INR:2.0-3.0 CONDITIONS NOT LISTED BELOW2.5-3.5 FOR PROSTHETIC HEART VALVE REPLACEMENT2.5-3.5 RECURRENT THROMBOSIS Lactic Acid LevelAugust 2024 4:14pmAugust 2024 4:14pm1.4 mmol/L 0.4-2.0Anion GapAugust 2024 4:14pmAugust 2024 4:14pm14.7Basophils # (Auto)November 16, 2024 4:14pmAugust 2024 4:14pm0.0 10 3/uL0.0-0.1 CreatinineSeptember 2024 11:31amSeptember 2024 11:31am0.81 mg/dL 0.55-1.02Urine Other CrystalsAugust 2024 4:00pmNone Seen #/HPFNone Seen Prothrombin TimeAugust 2024 4:14pmAugust 2024 4:14pm10.3 sec9.0-11.6 Albumin/Globulin RatioAugust 2024 4:14pmAugust 2024 4:14pm0.9 Basophils (%) (Auto)November 16, 2024 4:14pmAugust 2024 4:14pm0.2 %0.2-2.0 Estimated GFR ()December 18, 2024 11:31amSept2024 11:31am>60>=60 mL/min/1.73m 2Urine BacteriaAugus2024 4:00pmTRACE #/HPF Abnormal (applies to non-numeric results)NONE SEENAlbuminAugust 2024 4:14pmAugust 2024 4:14pm3.6 g/dL3.4-5.0Eosinophils # (Auto)November 16, 2024 4:14pmAugust 2024 4:14pm0.0 10 3/uL0.0-0.7Estimated GFR (Non- AmericanSept2024 11:31amSeptember 2024 11:31am>60>=60 mL/min/1.73m 2Urine BilirubinAugus2024 4:00pmNEGATIVENEGATIVEAlkaline PhosphataseAugus2024 4:14pmAugust 2024 4:39bf993 U/LAbove high yjxqam94-219Reridvhoxwk (%) (Auto)November 16, 2024 4:14pmAugust , 2024 4:14pm0.1 %Below low normal0.9-7.0Urine Occult BloodAugust , 2024 4:00pm TRACE-INEGATIVEAlanine Aminotransferase (ALT/SGPT)November 16, 2024 4:14pmAugust 2024 4:14pm41 U/Y47-39JvproggqimBtfwsd 2024 4:14pmAugust , 2024 4:14pm41.7 %36.0-48.0Urine AppearanceAugust 2024 4:00pmCLEARCLEARAspartate Amino Transf (AST/SGOT)November 16, 2024 4:14pmAugust , 2024 4:14pm22 U/L 15-37HemoglobinAugust 2024 4:14pmAugust , 2024 4:14pm13.8 g/dL 12.0-16.0Urine ColorAugust 2024 4:00pmLT. YELLOWYELLOWBUN/Creatinine Ratio November 16, 2024 4:14pmAugust 2024 4:14pm20.5Immature Granulocyte # (Auto)November 16, 2024 4:14pmAugust , 2024 4:14pm0.04 10 3/uLAbove high normal0.00-0.03Urine Glucose (UA)November 16, 2024 4:00pmNEGATIVE mg/dLNEGATIVE Blood Urea NitrogenAugust 2024 4:14pmAugust , 2024 4:14pm15.0 mg/dL 7.0-18.0Immature Granulocyte % (Auto)November 16, 2024 4:14pmAugust 2024 4:14pm0.4 %0.0-0.5Urine KetonesAugu2024 4:00pmNEGATIVE mg/dLNEGATIVE Calcium LevelAugus2024 4:14pmAugust , 2024 4:14pm9.6 mg/dL8.5-10.1 Lymphocytes # (Auto)November 16, 2024 4:14pmAugust 2024 4:14pm1.1 10 3/uL Below low normal1.2-3.8Urine Leukocyte EsteraseAugust 2024 4:00pmNEGATIVE NEGATIVEChloride LevelAugust 2024 4:14pmAugust , 2024 4:39jv396 mmol/L 98-107Lymphocytes (%) (Auto)November 16, 2024 4:14pmAugust 2024 4:14pm11.2 %Below low hypzqh12.5-60.0Urine MucusAugust 2024 4:00pmNONE SEENNONE SEEN Carbon Dioxide LevelAugust 2024 4:14pmAugust 2024 4:14pm26.7 mmol/L 21.0-32.0Mean Corpuscular HemoglobinAugust , 2024 4:14pmAugust 2024 4:14pm32.4 pg26.7-34.0Urine NitriteAugust 2024 4:00pmNEGATIVENEGATIVE CreatinineAugust 2024 4:14pmAugust 2024 4:14pm0.73 mg/dL0.55-1.02 Mean Corpuscular Hemoglobin ConcentAugust 2024 4:14pmAugust 2024 4:14pm33.1 g/dL29.9-35.2Urine pHAugust 2024 4:00pm6.05.0-9.0Estimated GFR ()November 16, 2024 4:14pmAugust 2024 4:14pm>60>=60 mL/min/1.73m 2Mean Corpuscular VolumeAugust 2024 4:14pmAugust 2024 4:14pm97.9 fL81.0-99.0Urine ProteinAugust 2024 4:00pmNEGATIVE mg/dL NEG/TRACEEstimated GFR (Non- AmericanAugus2024 4:14pmAugust 2024 4:14pm>60>=60 mL/min/1.73m 2Monocytes # (Auto)November 16, 2024 4:14pm November 16, 2024 4:14pm0.6 10 3/uL0.3-0.8Urine RBCAugust 2024 4:77eu3-3 #/HPFAbnormal (applies to non-numeric results)0-2GlobulinAugust 2024 4:14pmAugust , 2024 4:14pm3.8 g/dLMonocytes (%) (Auto)November 16, 2024 4:14pmAugust 2024 4:14pm6.7 %1.7-12.0Urine Specific GravityAugust , 2024 4:00pm1.0151.005-1.025Glucose LevelAugust 2024 4:14pmAugust , 2024 4:98qc447 mg/dLAbove high eriwtz33-737Ncby Platelet VolumeAugust , 2024 4:14pmAugust , 2024 4:14pm9.2 fLBelow low normal9.5-13.5Urine Squamous Epithelial CellsAugust 2024 4:00pmRARE #/LPFNONE/RAREPotassium LevelAugust 2024 4:14pmAugust 2024 4:14pm4.4 mmol/L3.5-5.1Neutrophils # (Auto) November 16, 2024 4:14pmAugust , 2024 4:14pm7.6 10 3/uLAbove high normal 1.4-6.5Urine UrobilinogenAugust 2024 4:00pm0.2 EU/dL0.2-1.0Sodium Level November 16, 2024 4:14pmAugust , 2024 4:71id826 mmol/H235-091Nunhlelmpjg (%) (Auto)November 16, 2024 4:14pmAugust 2024 4:14pm81.4 %Above high normal 43.0-75.0Urine WBCAugust 2024 4:67cv1-0 #/HPFAbnormal (applies to non- numeric results)NONE SEENTotal BilirubinAugust 2024 4:14pmAugust , 2024 4:14pm0.5 mg/dL0.2-1.0Platelet CountAugust 2024 4:14pmAugust 2024 4:95wq119 10 3/gD760-848Gnqhk ProteinAugust 2024 4:14pmAugust 2024 4:14pm7.4 g/dL6.4-8.2Red Blood CountAugust 2024 4:14pmAugust 2024 4:14pm4.26 10 6/uL4.20-5.40Red Cell Distribution WidthAugust 2024 4:14pmAugust 2024 4:14pm13.9 %11.0-15.0Corrected White Blood CountAugust 2024 4:14pmAugust 2024 4:14pm9.3 10 3/uL4.0-11.0Corrected White Blood CountAugust 2024 5:22pmAugust 2024 5:37pm7.5 10*3/uL3.8-11.6 [facility] [id number] [address] [facility] [address]Vnvhxnuvlmj WBC CountAugust 2024 5:22pmAugust 2024 5:37pm7.5 10*3/uL3.8-11.6[facility] [id number] [address] [facility] [address]Zto Blood CountAugust 2024 5:22pmAugust 2024 5:37pm 4.11 10*6/uL3.60-5.00[facility] [id number] [address] [facility] [id number] 2024 5:22pmAugust 2024 5:37pm13.5 g/dL11.8-15.4FOhio[facility] [id number] [address] [facility] [address]CaacwyfwnaVgshop 2024 5:22pmAugust 2024 5:37pm39.0 %34.0-46.4FOhio[facility] [id number] [address] [facility] [address]Auqp Corpuscular VolumeAugust 2024 5:22pmAugust 2024 5:37pm94.9 pF38-362SorcvmlbmFisher-[facility] [id number] [address] [place] [address]Vimo Corpuscular HemoglobinAugust 2024 5:22pmAugust 2024 5:37pm32.8 pg24.7-34.3FOhioHealth [facility] [id number] [address] [place] [address]39[address]Iiud Corpuscular Hemoglobin ConcentAugust 2024 5:22pm November 22, 2024 5:37pm34.6 g/dL32.0-35.0[facility] [id number] [address] [place] [address]76[address]Fhn Cell Distribution WidthAugust 2024 5:22pmAugust 2024 5:37pm13.5 %11.9-15.3FOhioHealth [facility] [id number] [address] [place] [address] 150[address]Aygrtfrf CountAugust 2024 5:22pmAugust 2024 5:37pm 290 10*3/yR625-171VihzpwjmwFisher-[facility] [id number] [address] [place] [address] 17321Jlgy Platelet VolumeAugust 2024 5:22pmAugust 2024 5:37pm7.4 fL6.3-10.7FOhioHealth [facility] [id number] [address] [place] [address] 23110Egernjzu Distribution WidthAugust 2024 5:22pmAugust 2024 5:37pm20.64 %Above high normal0.00-20.00For adults in ED, MDW > 20.0 may be associated with a higher risk of sepsis during the first 12 hrs of hospital admissionFisher[facility] [id number] [address] [place] [address] 05497Vmvovlwrmsd (%) (Auto)November 22, 2024 5:22pmAugust 2024 5:37pm63.5 %.[facility] [id number] [address] [facility] 73351Zcnrtywpvbw (%) (Auto)November 22, 2024 5:22pmAugust 2024 5:37pm20.6 %.[facility] [id number] [address] [facility] 45459Fqiamuckm (%) (Auto)November 22, 2024 5:22pmAugust 2024 5:37pm13.9 %.[facility] [id number] [address] [facility] 76057Yzywqslwcfn (%) (Auto)November 22, 2024 5:22pmAugust 2024 5:37pm0.9 %.[facility] [id number] [address] [facility] 59589Xmsirgpra (%) (Auto)November 22, 2024 5:22pmAugust 2024 5:37pm1.1 %.[facility] [id number] [address] [facility] 51140Wofhdcczs RBC Relative Count (auto)November 22, 2024 5:22pm November 22, 2024 5:37pm0.1 /100{WBC}0-0.5FOhioHealth Doctors Hospital [facility] [id number] [address] [place] [address] 64127Vwnqxuycuvp # (Auto)November 22, 2024 5:22pmAugust 2024 5:37pm4.8 10*3/uL1.8-7.7FOhioHealth Doctors Hospital [facility] [id number] [address] [facility] 89645Trcfszgxqrj # (Auto)November 22, 2024 5:22pmAugust 2024 5:37pm1.5 10*3/uL1.00-4.8[facility] [id number] [address] [facility] 31342Fupwxlcvr # (Auto)November 22, 2024 5:22pmAugust 2024 5:37pm1.0 10*3/uLAbove high normal0.0-0.8[facility] [id number] [address] [facility] 31383Atwmimjpliy # (Auto)November 22, 2024 5:22pmAugust 2024 5:37pm0.1 10*3/uL0.0-0.45[facility] [id number] [address] [place] [id number] # (Auto)November 22, 2024 5:22pmAugust 2024 5:37pm0.1 10*3/uL0.0-0.2FOhioHealth Doctors Hospital [facility] [id number] [address] [facility] 22150Hocqq ColorAugust 2024 7:09pmAugust 2024 7:17pm ColorlessYellowFisher-Titus Medical Center Ctr [id number] [address] [place] [id number] AppearanceAugust 2024 7:09pmAugust 2024 7:17pmClearClearFisher-Titus Medical Center [facility] [id number] [address] [place] [id number] Specific GravityAugust 2024 7:09pmAugust 2024 7:17pm1.0051.001-1.030[facility] [id number] [address] [place] [id number] pHAugust 2024 7:09pmAugust 2024 7:17pm5.5 5.0-9.0[facility] [id number] [address] [place] [id number] Leukocyte EsteraseAugust 2024 7:09pmAugust 2024 7:17pmNegativeNegativeFisher-Titus [facility] [id number] [address] [facility] 37545Dziuq NitriteAugust 2024 7:09pmAugust 2024 7:17pm NegativeNegativeFisher-Titus Medical Center [facility] [id number] [address] [place] [id number] ProteinAugust 2024 7:09pmAugust 2024 7:17pm Negative mg/dLNegMagruder Memorial Hospital [facility] [id number] [address] [place] [id number] Glucose (UA)November 22, 2024 7:09pmAugust 2024 7:17pmNormal mg/dLNormalFisher-[facility] [id number] [address] [facility] 00151Jjxjb KetonesAugust 2024 7:09pmAugust 2024 7:17pm NegativeNegativeFisher-Titus [facility] [id number] [address] [facility] 82379Kyeob UrobilinogenAugust 2024 7:09pmAugust 2024 7:17pmNormal mg/dLNormalFisher-Titus [facility] [id number] [address] [facility] 20896Ipgxg BilirubinAugust 2024 7:09pmAugust 2024 7:17pm NegativeNegativeFisher-Titus [facility] [id number] [address] [facility] 08467Adwbp Occult BloodAugust 2024 7:09pmAugust 2024 7:17pmNegativeNegativeFisher-Titus [facility] [id number] [address] [facility] 18893Hmeobgj LevelAugust 2024 5:22pmAugust 2024 6:02pm97 mg/zK79-854VZP recommended reference rangeRandom Glucose Reference Range is dependent on time and content of last meal. Glucose of more than 200 mg/dL in a nonstressed, ambulatory subject supports the diagnosisof Diabetes Mellitus. [facility] [id number] [address] [facility] 87385Zgomz Urea NitrogenAugust 2024 5:22pmAugust 2024 6:02pm10 mg/dL7-25[facility] [id number] [address] [facility] 44020HqincbblncLsrnnh 2024 5:22pmAugust 2024 6:02pm0.89 mg/dL0.60-1.20[facility] [id number] [address] [facility] 89944Mzigoehku GFR (CKD-EPI)November 22, 2024 5:22pmAugust 2024 6:02pm> 60.0 mL/MinFisher-Titus Medical Center Ctr [id number] [address] [facility] 19653Oiaruw LevelAugust 2024 5:22pmAugust 2024 6:13ze025 mmol/LBelow low iwnfis635-131ZiyhaqotkFisher-Titus Medical Center [facility]tr [id number] [address] [facility] 76846Difnyumcl LevelAugust 2024 5:22pmAugust 2024 6:02pm 3.3 mmol/LBelow low normal3.5-5.1FOhioHealth Doctors Hospital [facility] [id number] [address] [facility] 08064Khkpbnqs LevelAugust 2024 5:22pmAugust 2024 6:02pm 102 mmol/Z11-429HvsnpavlvFisher-Titus Medical Center [facility] [id number] [address] [facility] 63327Pnezsi Dioxide LevelAugust 2024 5:22pmAugust 2024 6:02pm24.3 mmol/L21.0-31.0[facility] [id number] [address] [facility] 02427Xbute GapAugust 2024 5:22pmAugust 2024 6:02pm11.0 mEq/L6.0-15.0[facility] [id number] [address] [facility] 34776Hlxkjhe LevelAugust 2024 5:22pmAugust 2024 6:02pm 9.2 mg/dL8.6-10.3FOhioHealth Doctors Hospital [facility] [id number] [address] [facility] 63525Xiuzy ProteinAugust 2024 5:22pmAugust 2024 6:02pm 6.7 g/dL6.4-8.9[facility] [id number] [address] [facility] 24378HqnbbpwJgxtof 2024 5:22pmAugust 2024 6:02pm4.0 g/dL 3.5-5.7FOhioHealth Doctors Hospital [facility] [id number] [address] [facility] 59909HngtbxpmWvlcdb 2024 5:22pmAugust 2024 6:02pm2.7 g/dLFisher-Titus Medical Center Ctr [id number] [address] [facility] 52327Vknxwhc/Globulin RatioAugust 2024 5:22pmAugust 2024 6:02pm1.5FOhioHealth Doctors Hospital [facility] [id number] [address] [facility] 04376Iucrd BilirubinAugust 2024 5:22pmAugust 2024 6:02pm 0.4 mg/dL0.3-1.0[facility] [id number] [address] [facility] 30195Rdilud BilirubinAugust 2024 5:22pmAugust 2024 6:02pm0.10 mg/dL0.03-0.18FOhioHealth Doctors Hospital [facility] [id number] [address] [facility] 35017Xaskkuve BilirubinAugust 2024 5:22pmAugust 2024 6:02pm0.3 mg/dLFisher-Titus Medical Center [facility]tr [id number] [address] [facility] 01270Qgyvecpnb Amino Transf (AST/SGOT)November 22, 2024 5:22pmAugust 2024 6:02pm19 U/I33-44QkeugnrusFisher-Titus Medical Center [facility]tr [id number] [address] [facility] 69351Ggvgxgd Aminotransferase (ALT/SGPT)November 22, 2024 5:22pm November 22, 2024 6:02pm21 U/L7-52[facility] [id number] [address] [place] [address] 37387Wvturhkh PhosphataseAugust 2024 5:22pmAugust 2024 6:38sb034 U/LAbove high ahmpml69-328EyliwbeqwFisher-Titus Medical Center [facility]tr [id number] [address] [facility] 16879NocbvuZwfqct 2024 5:22pmAugust 2024 6:75is859.0 U/L Above high bdgobw43.0-82.0[facility] [id number] [address] [place] [address] 32287Hhwjnpus Creatinine Clearance (ChemAugust 2024 5:22pm November 22, 2024 6:02pm40.32[facility] [id number] [address] [place] [address] 74660 Diagnostic Imaging Reports Author Endy Crowley [facility] HospitalAuthoredAugust 2024 7:05pmReportDictated Date/TimeDictated ByStatusRadiology ReportAugust 2024 7:05pmEndy Crowley II MDcompChildren[facility] [place] [address] [place] [address] XRay Report Signed Patient: Genny Barboza MR#: [id number] : 1940 Acct:[id number] Age/Sex: 84 / F ADM Date: 5 Loc: ER Room: Type: [facility] ER Attending Dr: Copies to: [facility] [...] Crowley M.D. 11/22/2024 7:06 PM Dictation Location: [place] [address] Transcribed By: [facility] 11/22/24 190 Dictated By: Endy Crowley II, MD 11/22/241904 Signed By: <Electronically signed by Endy Crowley II, MD in [place]> 11/22/241905 Vital Signs Vital Reading Result Reference Range Collection Date/Time Height 61 [in_i] November 04, 2024 1:91crBpvkbf21.58 kgAugust 2024 1:04pmHeart Rate71 /min 60-100August 2024 1:04pmRespiratory rate12 /pcs58-15Iudmeq 2024 1:04pmBP Emiynmqy639 mm[Hg]100-140August 2024 1:04pmBP Nlzmmvcyr62 mm[Hg] 60-100August 2024 1:04pmBMI (Body Mass Index)26.9 kg/e7Cczypr 2024 1:80clZrxgip64 [in_i]November 16, 2024 2:27tlUilzwz08.92 kgAugust 2024 2:15pmHeart Rate78 /qrb48-747Acagoh 2024 2:15pmRespiratory rate12 /min 12-24August 2024 2:15pmBP Uevcqqjl700 mm[Hg]100-140August 2024 2:15pmBP Prkvmvwao49 mm[Hg]60-100August 2024 2:15pmBMI (Body Mass Index) 27.0 kg/x1Rkojrb 2024 2:12nwSnoiyj62 [in_i]November 19, 2024 9:05amWeight 64.20 kgAugust 2024 9:05amBMI (Body Mass Index)26.7 kg/g2Qhqpwg 2024 9:29zbBlcrrs60 [in_i]November 22, 2024 10:41usVpogls79.80 kgSeptember 2024 3:26amBody Mwkdukphhxd53.0 [degF]97.6-99.0September 2024 8:00amHeart Rate 71 /swo09-861Lgvkwhzow 2024 11:00amRespiratory rate18 /fhe31-33Grtqmywta 2024 11:00amOxygen saturation by Pulse fyulbquy028 %95-100September 2024 11:00amBP Wmmwwxoa545 mm[Hg]100-140September 2024 11:00amBP Diastolic 78 mm[Hg]60-100September 2024 11:55inQncxgz62 [in_i]December 01, 2024 12:67pvRnkeez31.59 kgSeptember 2024 12:27pmHeart Rate64 /czi12-035Epgabrmou 9th, 2025 12:27pmBP Aqeeclvh977 mm[Hg]100-140September 2024 12:27pmBP Egykerhdt91 mm[Hg]60-100September 2024 12:27pmBMI (Body Mass Index)26.0 kg/o7Xcfipaepx 2024 12:67bhXmzjpj65 [in_i]December 03, 2024 10:45am Dapjbe64.55 kgSeptember 2024 10:45amHeart Rate61 /zom63-710Epporjxjl 11th, 2025 10:45amRespiratory rate12 /zhw84-69Ptltkyqvt 2024 10:45amBP Systolic 129 mm[Hg]100-140pt2024 10:45amBP Pkisbbrob71 mm[Hg]60-December 03, 2024 10:45amBMI (Body Mass Index)26.4 kg/l2Lyjrxqtvi 2024 10:98toZjofku74.00 kgOctober 2024 10:61ipCovzhu98 [in_i]January 12, 2025 10:52xsUweyac70.50 kgOctober 2024 10:22amBMI (Body Mass Index)26.4 kg/m2 January 12, 2025 10:01hjFuqacx10 [in_i]January 27, 2025 10:95elZilsem57.50 kgNovember 2024 10:12amHeart Rate66 /xwc41-209Blrtqmld 5th, 2025 10:12amBP Iyiktrxk042 mm[Hg]100-140Nov2024 10:12amBP Cmxkibudz15 mm[Hg]60-100 January 27, 2025 10:12amBMI (Body Mass Index)26.4 kg/c6Bcgvchxy2024 10:12am Advance Directives Advance Directive Response Recorded Date/ Time Advance Directives No August 18 8:23am Insurance Providers Guarantor Genny Barboza Address [address] [place] [id number] Info.Home Phone: Payer Group Member ID Coverage Type Subscriber Relationship to Subscriber Effective Date Expiration Date Medicare [id number] E Vogel Id: [id number] [address] [facility] [address] Home Phone: Email: [email or web address] Claims [id number] E Vogel Id: [id number] [address] [facility] [address] Home Phone: Email: [email or web address] Encounters Encounter Location(s) Arrival/Admit Date Discharge/Departure Date Discharge/Departure Disposition Provider(s) Departed Physician/ Provider Office Visit -[facility] November 04, 2024 1:56pm November 04, 2024 2:44pm Discharged to home care or self care (routine discharge) Branden Du DO Non-patient / Non-visit -[facility] 2024 11:45am Judith Mastersonparted Physician/Provider [facility] 20[facility] 2:40pmAugust 2024 3:42pmDischarged to home care or self care (routine discharge)Nataliia Soni Physician/Provider Office Visit-[facility] OrthopedicsAugu2024 11:26amA2024 12:16pmDischarged to home care or self care (routine discharge)Nataliia Tobias Physician/Provider Office Visit-[facility]20[facility] 9:58amAugu2024 11:16amDischarged to home care or self care (routine discharge)Roxane Granda , APRNDischarged Inpatient -3 [facility] SurgBraulio 2024 10:23pmSeptember 2024 2:59pmDischarged to home care or self care (routine discharge)Neli Martins-patient / Djx-huibz-[facility]UKet[facility] Daytoneptember 2024 10:33amCatmike Perez CMADeparted Physician/Provider Office Visit-[facility] GastroSeptember 2024 1:22pmSeptember 2024 2:05pmDischarged to home care or self care (routine discharge)Shmuel Martinez APRNDeparted Physician/Provider [facility] 11:19amSeptember 2024 12:47pmDischarged to home care or self care (routine discharge)ZEINA Sonieparted Physician/Provider Office Visit-[facility]ue[facility] 2024 11:16amSeptember 2024 12:18pmDischarged to home care or self care (routine discharge)Cynthia Tobias-patient / Mgf-fbder-[employer] 2024 12:31pmChin-Gianfranco Chan , MDDeparted Physician/Provider Office Visit-[facility] NeurosurgeryOctober 2024 11:25amOctober 2024 12:13pmDischarged to home care or self care (routine discharge)Roxane Granda APRNDeparted Physician/Provider Office Visit- [facility] GastroOctober 2024 11:18amOctober 2024 12:00pm Discharged to home care or self care (routine discharge)Shmuel Martinez APRN Departed Physician/Provider Office Visit-[facility] GastroNovember 2024 9:58amNovember 2024 10:45amDischarged to home care or self care (routine discharge)Shmuel Martinez APRN Recent Diagnosis Onset Date Admit Date [...] T11 vertebra Unknown December 29, 2024 11:25am Irritable bowel syndrome with constipation Unkno wn January 12, 2025 11:18am Functional Status Observation Response Date Recorded Dressing Patient at Baseline November 1:59pm Eating Patient at Baseline November 1:59pm Bathing Patient at Baseline November 1:59pm Disability Status Patient at Baseline November 23, 2024 1:59pm Mental Status Observation Response Date Recorded Cognitive Status Patient at Baseline November 232024 1:59pm Cognitive/Mental Status Assessments Assessments Diagnosis Onset Date Resolution Status Admit Date Cervical spondylosis with radiculopathy deletedAugust 2024 1:56pmNeck paindeletedAugust 2024 1:56pmAbdominal painacuteAugust 2024 2:40pmAbdominal distentiondeletedAugust 2024 2:40pmCompression fx, lumbar spinedeletedAugust 2024 2:40pmInternal derangement of right shoulderacuteAugust 2024 11:26amRight shoulder strain acuteAugust 2024 11:26amCompression fracture of L1 lumbar vertebraacute November 19, 2024 9:58amRight lumbar radiculopathyacuteAugust 2024 9:58am Right shoulder strainacuteAugust 2024 9:58amCervical radiculopathydeleted November 19, 2024 9:58amPrimary hypertensionacuteAugust 2024 10:23pmAcute hypokalemiaresolvedAugust 2024 10:23pmConstipationresolvedAugust 2024 10:23pmHistory of colon cancerresolvedAugust 2024 10:23pmAlternating constipation and diarrheaacuteSeptember 2024 1:22pmAbdominal painacute December 03, 2024 11:19amASHD (arteriosclerotic heart disease)acuteSeptember 2024 11:19amCervical spondylosisacuteSeptember 2024 11:19am Compression fracture of L1 lumbar vertebraacuteSeptember 2024 11:19am History of fragility fractureacuteSeptember 2024 11:19amIBS (irritable bowel syndrome)acuteSeptember 2024 11:19amInternal derangement of right shoulderacuteSeptember 2024 11:19amLung noduleacuteSeptember 2024 11:19amPrimary hypertensionacuteSeptember 2024 11:19amInternal derangement of right shoulderacuteSeptember 2024 11:16amRight shoulder strainacute December 14, 2024 11:16amCompression fracture of L1 lumbar vertebraacute December 29, 2024 11:25amCompression fracture of T11 vertebraacuteOct2024 11:25amIrritable bowel syndrome with constipationacuteOct2024 11:18am Plan of Treatment Author Branden Du [facility] 2024 1:40pmROM exercises, ice/heat and Tylenol Instructed to try [...] 10/2024 Refer to PT Author Roxane Granda [facility] 2024 10:01amPatiankit is a pleasant 84-year-old female presents today with several complaints. Apparently [...] when the imaging is completed. Author Branden Florian [facility] HospitalAuthoredAuyas 2024 9:33pmDiffuse abdominal pain, which is moderate to severe in intensity. Tender [...] referral for CT abdomen Author Shmuel Martinez [facility] HospitalAuthoredSeptember 2024 1:41pm- Recommend MiraLAX titration to help facilitate 1 appropriate BM daily. - Recommend limiting toilet time to 5 to 10 minutes max. - Recommend avoidance of straining during defecation. -Recommend 6 to 812 ounce glasses of water a day to help facilitate adequate hydration. - Will order KUB for further evaluation of stool burden. - Follow-up office visit in 6 weeks for constipation. Author Justus Damon [facility] 20[facility] 11:51amMary returns with right shoulder injury after fall. At this juncture we have discussed the findings and diagnosis as well as personally reviewed appropriate imaging and performed interpretation of related testing and examination with the patient in office today. Prior medical notes from [facility] and history have been reviewed. She is ptxmk-xyhw-pmqxuaxj had no prior right shoulder issues. On [...] by myself Justus Damon D.O. Author Branden Florian [facility] HospitalAuthoredSeptember 2024 12:18pmDiffuse abdominal pain, which is moderate to severe in intensity. Tender [...] the correct procedure for obtaining home BP measurements:? - rest for 5 minutes w/o talking. - positioned w/ feet on floor and arms supported. - average best 2/3 readings w/ goal < 135/85. - update office w/ home readings in 2 weeks. Continue Losartan and Amlodipine without interruption L1 compression fracture Conservative treatment recommended. Author Roxane Granda [facility] HospitalAuthoredOctober 2024 11:20yd16-pkcm-lxw female who presents today for follow-up and imaging review. She sustained a fall backwards which resulted in a fracture of the lumbar spine. She was seen in our office a few weeks ago for the initial evaluation. At that time she has had multiple complaints including back pain with bilateral hip radiation as well as right upper extremity pain. I did want the patient to be seen by orthopedic surgery as the shoulder pain in my opinion was not related to her cervical spine. Patient was also prescribed a TLSO brace with which she is intermittently compliant according to her. Today, she arrives to the office without her brace stating that she cannot drive with it on as it is cumbersome and restricts her. Overall she tells me that the pain is improving but definitely not 100% gone. She still having some mid back pain but most of the discomfort is located in the lower spine and bilateral hips. She is only mildly tender to palpation of the lower thoracic and upper lumbar spine. I did review the MRI of the lumbar spine from 12/18 which redemonstrates L1 compression deformity, slightly worse compared to prior imaging. There is also a compression deformity of the T11 vertebral body with about 20% height loss. Imaging findings were relayed to the patient. I encouraged compliance with the brace as it helps with the healing of the fracture. She understands. Will obtain updated x-rays in about a month. Author Justus Damon [facility] CenterredBraulio 2024 11:17amMary presents with right shoulder injury after fall. At this juncture we have discussed the findings and diagnosis as well as personally reviewed appropriate imaging and performed interpretation of related testing and examination with the patient in office today. Prior medical notes from [facility] and history have been reviewed. She is gwzji-mgav-heyhxnnv had no prior right shoulder issues. On [...] further assess for a possible cuff tear. Author Shmuel [facility] CenterAuthoredOctober 2024 11:42am- Recommend patient to continue daily MiraLAX titration to help facilitate 1 appropriate bowel movement daily. - Recommend for patient to utilize Dulcolax laxative pills x 2 on 01/13/2025 and 01/14/2025 in concert with MiraLAX titration to help facilitate bowel evacuation. Plan to call patient on 01/15/2025 to see if the previously mentioned regimen has helped facilitate appropriate bowel evacuation. -Also recommend patient to slowly increase oral hydration for treatment of baseline constipation. -Recommend limiting toilet time to 5 to 10 minutes maximum. -Recommend abstaining from straining during defecation. - Follow-up office visit in 2 weeks for constipation. Future Tests Future scheduled test information is unavailable Pending Tests Test Name Ordered Date Scheduled Date MR lumbar spine wo/w con November 19, 2024 9:49a m XR thoracic spine 3V*December 29, 2024 11:11amXR dexa axial skeletonAugust 2024 11:08am Future Visits Future appointment information is unavailable Future Procedures Procedure Name Ordered Date Scheduled Date Admit Status Order November 22, 2024 9:23pm Augu st 2024 9:23pm Discharge Order November 23, 2024 12:23pm Sept emb2024 12:23pm XR KUB December 01, 2024 1:05pm Future Medications Future medication information is unavailable Patient Instructions Instruction Admit Date Know your Meds November 22, 2024 10 :23pm Goals Acute Goals Author Authored Date Exhibit optimal tissue perfu maryuri * Exhibits adequate oxygenation and ventilation * Exhibits adequate cardiac output * Regains stable cardiac rhythm * Maintains optimal activity level * Maintains balanced intake and outputClVan Wert County Hospitaleptember 2024 1:59pmMaintain/increase activity levels * Understands factors that may lead to activity intolerance * Helps perform self care activities * Maintains maximum range of motion * Increase/regain muscle mass and strength * Maintains VS WNL during activity * Maintain intact skin integrity Updated: 3[facility] Hospitaleptember 2024 1:59pm Preferences Type Detail Treatment Intervention Code Status: Full Code
--- OUTSIDE RECORDS SUMMARY | 2025-01-27 11:30 | XMS_ITS | Encounter Summary ---
Author Organization [facility] Address [address] [place] [address] Phone Care Team Providers Care Profile Shaper Operator Name Role Phone FlorianBranden Primary Care Provider [phone] Reason for Referral * Consultation (Routine) - AuthorizedSpecialtyDiagnoses / ProceduresReferred By ContactReferred To ContactCardiology Diagnoses Coronary artery disease, unspecified vessel or lesion type, unspecified whether angina present, unspecified whether [place] or transplanted heart Procedures Follow Up In Cardiology Jeannette Dave APRN-CNP [address] [place] [address] [address], [address] [address] Phone: tel: fax: Inderjit Frausot DO [address] [place] [address] 2, [place] [id number] Phone: tel: fax: Referral IDStatusReasonStart DateExpiration DateVisits RequestedVisits [id number]/5/202511/5/202611 Reason for Visit * ReasonCommentsFollow-up8 month Follow up for Hypertension * Consultation (Routine) - AuthorizedSpecialtyDiagnoses / ProceduresReferred By ContactReferred To ContactCardiology Diagnoses Coronary artery disease, unspecified vessel or lesion type, unspecified whether angina present, unspecified whether [place] or transplanted heart Procedures Follow Up In Cardiology Inderjit Frausto DO [address] [facility] 2, [address] [address] Phone: tel: fax: Jeannette Dave, LOCOMOTIVE ENGINEER-SOFTBALL COACH [address] [facility] [address], [address] [address] Phone: tel: fax: Referral IDStatusReasonStart DateExpiration DateVisits RequestedVisits [id number]/5/20253/ Encounter Details DateTypeDepartmentCare Team (Latest Contact Info)Kijtsbhsskg83/05/2025 11:30 AM ESTOffice Visit [facility] [address] [phone] Jeannette Dave, LOCOMOTIVE ENGINEER-SOFTBALL COACH [address] [facility] 2, [address] elevation myocardial infarction (STEMI) (Primary Dx); Coronary artery disease, unspecified vessel or lesion type, unspecified whether angina present, unspecified whether [place] or transplanted heart; Hyperlipidemia, unspecified hyperlipidemia type; Essential hypertension; BMI 27.0-27.9,adult Discharge Disposition: Home Social History Tobacco UseTypesPacks/DayYears UsedDateSmoking Tobacco: FormerCigarettes0.538 Started: 1956Smokeless Tobacco: NeverAlcohol UseStandard Drinks/WeekCommentsYes7 (1 standard drink = 0.6 oz pure alcohol)CommentsUnknownSex and Gender InformationValueDate RecordedSex Assigned at BirthNot on fileLegal SexFemale 02/17/2022 4:05 AM ESTGender IdentityNot on fileSexual OrientationNot on file documented as of this encounter Last Filed Vital Signs Vital SignReadingTime TakenCommentsBlood Lznctnrl051/6001/27/2025 11:08 AM EST Utjzo400001/27/2025 11:08 AM ESTTemperature--Respiratory Rate--Oxygen Saturation-- Inhaled Oxygen Concentration--Dmwhos37.9 kg (143 lb)01/27/2025 11:08 AM EST Jtccxh841.9 cm (5' 1 )01/27/2025 11:08 AM ESTBody Mass Index27.02103/29/2024 11:08 AM ESTdocumented in this encounter Functional Status * BPAnswerDate of IgoxlvgygyBahmoj923/6001/27/2025 11:08 AM Haven Santana CMA * PulseAnswerDate of YxfnjjnzfzRsyhnf0782/05/2025 11:08 AM Haven Santana CMA * Communicable Disease ScreeningQuestionAnswerDate of AssessmentAuthorDo you have any of the following new or worsening symptoms?None of these01/27/2025 10:50 AM Susan Olguin documented as of this encounter Patient Instructions * Patient Instructions* ROLAND Becerril - 01/27/2025 11:30 AM EST Please bring all medicines, vitamins, [...] warranted and to continue withfollowing modifications: - Stop amlodipine/norvasc (see if helps with constipation) 2. Please keep a check on your blood pressure: 2 hours after morning medications. Goal is top number below 140 and bottom number below 90. Call me if you are not consistently at goal. 3. Labs (lipids/ast/alt) with next lab draw 4. Return for follow-up; in the interim, contact the office if new symptoms arise. Dr. Frausto 6 months * Attachments The following attachments cannot be sent through Care Everywhere. * Preventing Falls ED (Syriac) documented in this encounter Progress Notes * Jeannette Dave APRN-SOFTBALL COACH - 01/27/2025 11:30 AM EST Chief Complaint Heart matt I am doing good Reason for Visit Routine 6-month follow-up Patient presents to the office today for outpatient follow-up for coronary artery disease and secondary prevention. Last evaluated in clinic by myself October 2024. At that time I had transition Lopressor over to carvedilol due to fatigability, following travel to [place] she had some lower extremity edema and discomfort with subsequent ultrasound showing no evidence of DVT. With transition off of Lopressor her fatigability has significantly improved. Presents today ambulatory with steady gait. Accompanied by her daughter. Patient denies any hospitalizations or significant changes to interval medical history since last office follow-up. She reports an accidental fall in the garden with right arm injury and injury to her back. History of Present Illness Patient is a pleasant 84-year-old female who presents to the office with no voiced cardiovascular complaints. She remains aerobically active out doing yard work, recently due to injury she has been fairly sedentary. She also complains of significant constipation is actually being evaluated by GI. She feels that she has returned to her regular strength and energy level off of Lopressor. Discussed that calcium channel blockers could contribute to constipation, she will discontinue and continue tofollow her blood pressure at home. Patient reports that overall has no complaint(s) of chest pain, chest pressure/discomfort, claudication, dyspnea, exertional chest pressure/discomfort, fatigue, irregular heart beat, and lower extremity edema Daily activity: > 4 METs Denies any change in exercise capacity or functional tolerance since last office visit. The importance of secondary prevention reviewed: HTN: Optimal HLD: Treated, due for labs DM: Denies Smoker: Denies BMI: Reviewed the merits of healthy lifestyle choices on overall cardiovascular health. Discussed the dynamic nature of coronary artery disease and the importance of seeking medical attention if new symptoms arise. Review of Systems Cardiovascular: Negative for chest pain, dyspnea on exertion, irregular heartbeat, leg swelling, near-syncope, orthopnea, palpitations, paroxysmal nocturnal dyspnea and syncope. Visit Vitals BP 118/60 (BP Location: Right arm, Patient Position: Sitting) Pulse 60 Ht 1.549 m (5' 1 ) Wt 64.9 kg (143 lb) BMI 27.02 kg/m?? Smoking Status Former BSA 1.67 m?? Physical Exam Vitals and nursing note [...] ALLERGIES: Penicillins Current Outpatient Medications Medication Instructions aspirin 81 mg, Daily atorvastatin (LIPITOR) 80 mg, oral, Every evening calcium carbonate (CALCIUM 600 ORAL) 1 tablet, Daily carvedilol (COREG) 6.25 mg, oral, 2 times daily (morning and late afternoon) cholecalciferol (vitamin D3) 2,000 Units, Daily clopidogrel (PLAVIX) 75 mg, oral, Daily (30) losartan (COZAAR) 50 mg, oral, 2 times daily multivit with minerals/lutein (MULTIVITAMIN 50 PLUS ORAL) 1 tablet, Daily nitroglycerin (NITROSTAT) 0.4 mg, Every 5 min PRN omeprazole (PRILOSEC) 40 mg, Daily before breakfast polyethylene glycol (Glycolax, Miralax) 17 gram/dose powder MIX 17 GM IN DRINK AND TAKE DAILY NEEDED FOR CONSTIPATION Assessment: CAD (coronary artery disease) Oct 26, 2024 Inferior STEMI pRCA PCI/[place] 4 x 18 mm mLAD mild intramyocardial bridging O/p Diag 75% small/moderate vessel OM none EF 60% Hyperlipidemia High intensity statin Due for labs this month Essential hypertension optimal in office BMI 27.0-27.9,adult Reviewed the merits of healthy lifestyle choices on overall cardiovascular health. Plan: Through informed decision making process incorporating patients unique circumstances, the followingtreatment plan will be initiated: 1. Prescription drug management of cardiovascular medication for efficacy, adherence to treatment, side effect assessment and polypharmacy. Current treatment clinically warranted and to continue withfollowing modifications: - Stop amlodipine/norvasc (see if helps with constipation) 2. Please keep a check on your blood pressure: 2 hours after morning medications. Goal is top number below 140 and bottom number below 90. Call me if you are not consistently at goal. 3. Labs (lipids/ast/alt) with next lab draw 4. Return for follow-up; in the interim, contact the office if new symptoms arise. Dr. Frausto 6 months Jeannette Dave MSN, WOODY-SOFTBALL COACH, PMHNP-[facility] [place], [place] Please excuse any errors in grammar or translation related to this dictation. Voice recognition software was utilized to prepare this document. documented in this encounter Miscellaneous Notes * Assessment & Plan Note - ROLAND Becerril - 01/28/2025 12:17 PM EST Associated Problem(s): BMI 27.0-27.9,adult Reviewed the merits of healthy lifestyle choices on overall cardiovascular health. * Assessment & Plan Note - ROLAND Becerril - 01/28/2025 12:16 PM EST Associated Problem(s): Essential hypertension optimal in office * Assessment & Plan Note - ROLAND Becerril - 01/28/2025 12:16 PM EST Associated Problem(s): Hyperlipidemia High intensity statin Due for labs this month * Assessment & Plan Note - ROLAND Becerril - 01/28/2025 12:16 PM EST Associated Problem(s): CAD (coronary artery disease) Oct 26, 2024 Inferior STEMI pRCA PCI/[place] 4 x 18 mm mLAD mild intramyocardial bridging O/p Diag 75% small/moderate vessel OM none EF 60% documented in this encounter Plan of Treatment DateTypeDepartmentCare Team (Latest Contact Info)Xvrrsqivclc38/06/2026 10:20 AM EDTOffice Visit [facility] [address] [facility] [address] [place] [address] Inderjit Frausto DO [address] [facility] [address] [place] [address] NameTypePriorityAssociated DiagnosesOrder ScheduleAlanine AminotransferaseLab Routine Coronary artery disease, unspecified vessel or lesion type, unspecified whether angina present, unspecified whether [place] or transplanted heart Hyperlipidemia, unspecified hyperlipidemia type Expected: 01/27/2025 (Approximate), Expires: 01/27/2026spartate AminotransferaseLabRoutine Coronary artery disease, unspecified vessel or lesion type, unspecified whether angina present, unspecified whether [place] or transplanted heart Hyperlipidemia, unspecified hyperlipidemia type Expected: 01/27/2025 (Approximate), Expires: 01/27/2026Lipid PanelLabRoutine Coronary artery disease, unspecified vessel or lesion type, unspecified whether angina present, unspecified whether [place] or transplanted heart Hyperlipidemia, unspecified hyperlipidemia type Expected: 01/27/2025 (Approximate), Expires: 01/27/2026documented as of this encounter Visit Diagnoses Diagnosis History of ST elevation myocardial infarction (STEMI)- Primary Coronary artery disease, unspecified vessel or lesion type, unspecified whether angina present, unspecified whether [place] or transplanted heart Hyperlipidemia, unspecified hyperlipidemia type Essential hypertension Unspecified essential hypertension BMI 27.0-27.9,adult documented in this encounter Additional Health Concerns AssessmentNoted TimeA fall risk assessment has been completed for the patient 01/27/2025 11:09 AM ESTdocumented as of this encounter Care Teams Team MemberRelationshipSpecialtyStart DateEnd Date Branden Du DO [address] [place] [address] PCP - GeneralInternal Medicine11/07/23documented as of this encounter
--- OUTSIDE RECORDS SUMMARY | 2025-01-28 12:29 | XMS_ITS | Clinical Summary ---
Author Organization [facility] Address [address] [facility] [address] Care Team Providers Care Budget Record Clerk Name Role Phone Unavailable Primary Care Provider Unavailabl e Source Comments The following information is NOT included in Care Everywhere downloads:Psychiatric notes, ECG results, Cardiac Rehab notes, Pulmonary Function notes, data from SmartForms (includes but not limited toPregnancy data,audiograms, eye exams, pre-surgical evaluation notes, well-child exam data).[facility] Social History Tobacco UseTypesPacks/DayYears UsedDateSmoking Tobacco: Never Assessed CommentsUnknownSex and Gender InformationValueDate RecordedSex Assigned at Not on fileLegal WexXonrlc31/27/2023 9:58 AM ESTGender IdentityNot on fileSexual OrientationNot on file Last Filed Vital Signs Vital SignReadingTime TakenCommentsBlood Rvjqybgy160/9205/21/2022 9:45 AM EST Uflmo3218/27/2023 9:45 AM ESTTemperature--Respiratory Nggu145405/21/2022 9:45 AM ESTOxygen Mmntfokyxe67%05/21/2022 9:45 AM ESTInhaled Oxygen Concentration-- Weight--Height--Body Mass Index-- Plan of Treatment Health MaintenanceDue DateLast DoneCommentsBasic Metabolic Panel1940Tdap Xurmmof6610/22/1958Hepatitis A (HAV) Vaccine (optional start 19+ years)10/23/1959 Pneumococcal Vaccine(s) (50+ yrs) (1 of 1 - PCV)1990Shingles (RZV) Vaccine (1 of 2)1990Hepatitis B (HBV) Vaccine (optional start 60+ years)2000 Bone Tvnctuvkzaog86/31/2006RSV vaccine (adult) (1 - 1-dose 75+ series)10/23/2015 COVID-19 Vaccine (1 - 2024- season)2024Influenza Vaccine (#1)2024 Pap SmearDiscontinued Insurance
--- OUTSIDE RECORDS SUMMARY | 2025-01-28 12:29 | XMS_ITS | Encounter Summary ---
Author Organization [facility] Address [address] [place] [address] Phone Care Team Providers Care Piecer Up Name Role Phone Branden Du Primary Care Provider [phone] Encounter Details DateTypeDepartmentCare Team (Latest Contact Info)Pbaqgplqdqu44/05/2025Travel Social History Tobacco UseTypesPacks/DayYears UsedDateSmoking Tobacco: FormerCigarettes0.538 Started: 1956Smokeless Tobacco: NeverAlcohol UseStandard Drinks/WeekCommentsYes7 (1 standard drink = 0.6 oz pure alcohol)CommentsUnknownSex and Gender InformationValueDate RecordedSex Assigned at BirthNot on fileLegal SexFemale 02/17/2022 4:05 AM ESTGender IdentityNot on fileSexual OrientationNot on file documented as of this encounter Functional Status * BPAnswerDate of GumthrucwgAaqdwz604/6001/27/2025 11:08 AM Haven Santana CMA * PulseAnswerDate of HpwxeyvjxuVlxuhg6927/05/2025 11:08 AM Haven Santana CMA * Communicable Disease ScreeningQuestionAnswerDate of AssessmentAuthorDo you have any of the following new or worsening symptoms?None of these01/27/2025 10:50 AM Susan Olguin documented as of this encounter Plan of Treatment DateTypeDepartmentCare Team (Latest Contact Info)Htbyhxjvyqr15/06/2026 10:20 AM EDTOffice Visit [facility] [address] [phone] Inderjit Frausto DO [address]03 [facility] [address] [place] [address] documented as of this encounter Visit Diagnoses Not on filedocumented in this encounter Additional Health Concerns AssessmentNoted TimeA fall risk assessment has been completed for the patient 01/27/2025 11:09 AM ESTdocumented as of this encounter Care Teams Team MemberRelationshipSpecialtyStart DateEnd Date Branden Du DO [address] [place] [address] PCP - GeneralInternal Medicine11/07/23documented as of this encounter
--- OUTSIDE RECORDS SUMMARY | 2025-01-28 12:29 | XMS_ITS | Clinical Summary ---
Author Organization [facility] Address [address] [place] [address] Phone Care Team Providers Care Service Line Coordinator Name Role Phone Branden Du Primary Care Provider [phone] Allergies Active AllergyReactionsCriticalityNoted ZpdnChjzlhnvMmzadudrzutCwqaiuo32/15/2024 Medications MedicationSigDispense QuantityRefillsLast FilledStart DateEnd DateStatus multivit with minerals/lutein (MULTIVITAMIN 50 PLUS ORAL) Take 1 tablet by mouth once daily.06/20/2023ctive aspirin 81 mg EC tablet Take 1 tablet (81 mg) by mouth once daily.10/29/2023ctive nitroglycerin (Nitrostat) 0.[address] 1 tablet (0.4 mg) under the tongue every 5 minutes if needed for chest pain.10/29/2023ctive omeprazole (PriLOSEC) [address] capsule Take 1 capsule (40 mg) by mouth once daily in the morning. Take before meals. 02/08/2023ctive atorvastatin (Lipitor) 80 mg tablet Indications:Hyperlipidemia, unspecified hyperlipidemia typeTAKE 1 TABLET BY MOUTH EVERY DAY IN THE EVENING 90 tablet 5Active losartan (Cozaar) 50 mg tablet Indications:Essential hypertensionTake 1 tablet (50 mg) by mouth 2 times a day. 180 tablet ctive carvedilol (Coreg) 6.25 mg tablet Indications:Essential hypertensionTake 1 tablet (6.25 mg) by mouth 2 times daily (morning and late afternoon). 60 tablet 110ctive clopidogrel (Plavix) 75 mg tablet Indications:History of PTCA,History of ST elevation myocardial infarction (STEMI),Coronary artery disease, unspecified vessel or lesion type, unspecified whether angina present, unspecified whether salamatof or transplanted heartTake 1 tablet (75 mg) by mouth early in the morning.. 90 tablet ctive cholecalciferol, vitamin D3, 50 mcg (2,000 unit) tablet,chewable 2,000 Units once daily.5Active polyethylene glycol (Glycolax, Miralax) 17 gram/dose powder MIX 17 GM IN DRINK AND TAKE DAILY NEEDED FOR XJEBKMBMPNNO94/05/2025Active calcium carbonate (CALCIUM 600 ORAL) Take 1 tablet by mouth once daily.Active amLODIPine (Norvasc) 5 mg tablet Take 1 tablet (5 mg) by mouth once daily.01/27/2025Discontinued(Side effects) dicyclomine (Bentyl) 20 mg tablet Take 1 tablet (20 mg) by mouth every 12 hours.Discontinued (Therapy completed) Active Problems ProblemNoted DateDiagnosed DateLocalized edema11/03/2024 Assessment & Plan (11/03/2024 2:22 PM EDT): After flight to [place] has noticed RLE pedal edema and calf pain. Will get USN to rule out DVT Hjumrqr4012/20/2023 Assessment & Plan (09/30/2024 8:26 AM EDT): [...] sensation and she denies any reoccurrence. Near wjvezdn5312/20/2023Essential oevxqkyintuc37/27/2024 Assessment & Plan (01/28/2025 12:17 PM EST): optimal in office Assessment & Plan (09/30/2024 8:25 AM EDT): Her dose of Lopressor was down titrated due to fatigability. Blood pressure is borderline in the office. She was noted to have improvement in fatigue with down titration of Lopressor, will discontinue andtransitioned over to carvedilol. Assessment & Plan (08/06/2024 9:40 AM EDT): Optimal in office CAD (coronary artery disease)11/07/2023 Assessment & Plan (01/28/2025 12:16 PM EST): Oct 26, 2024 Inferior STEMI pRCA PCI/Glorieta 4 x 18 mm mLAD mild intramyocardial bridging O/p Diag 75% small/moderate vessel OM none EF 60% Assessment & Plan (08/06/2024 9:40 AM EDT): Oct 26, 2024 Inferior STEMI pRCA PCI/Glorieta 4 x 18 mm mLAD mild intramyocardial bridging O/p Diag 75% small/moderate vessel OM none EF 60% History of ST elevation myocardial infarction (STEMI)11/07/2023Shortness of nqvvcz6911/07/2023 Assessment & Plan (08/06/2024 9:41 AM EDT): [...] from the parking lot without concerns. Former vhqoif9511/07/2023MI 27.0-27.9,adult11/07/2023 Assessment & Plan (01/28/2025 12:17 PM EST): Reviewed the merits of healthy lifestyle choices on overall cardiovascular health. Assessment & Plan (09/30/2024 8:25 AM EDT): Reviewed the merits of healthy lifestyle choices on overall cardiovascular health. Assessment & Plan (08/06/2024 9:40 AM EDT): Reviewed the merits of healthy lifestyle choices on overall cardiovascular health. History of PTCA11/07/20235246Udazkafhjyuzjr10/15/2024 Assessment & Plan (01/28/2025 12:16 PM EST): High intensity statin Due for labs this month Assessment & Plan (08/06/2024 9:40 AM EDT): High intensity statin Resolved Problems ProblemNoted DateDiagnosed DateResolved DateFamily history of PTCA11/07/2023 11/07/2023CA jqntwzyyp92 Encounters DateTypeDepartmentCare SyofYiygrqrjruw65/05/2025 11:30 AM ESTOffice Visit [address] [address] Jeannette Dave, OUTSIDE SALES-INTERIOR [employer]SEMBLIES DEVELOPER [employer] History of ST elevation myocardial infarction (STEMI) (Primary Dx); Coronary artery disease, unspecified vessel or lesion type, unspecified whether angina present, unspecified whether salamatof or transplanted heart; Hyperlipidemia, unspecified hyperlipidemia type; Essential hypertension; BMI 27.0-27.9,adult Discharge Disposition: Home01/27/20258089Vnjyvl59/02/2025Refill [address] [place] [address] Inderjit Frausto DO History of PTCA; History of ST elevation myocardial infarction (STEMI); Coronary artery disease, unspecified vessel or lesion type, unspecified whether angina present, unspecified whether salamatof or transplanted heart11/22/2024 Scanned [facility] [address] [place] [address] Scanning, Generic Provider 11/09/2024Telephone [address] [place] [phone] Yue Everett LPN Lnniptt0611/07/2024Scanned Document [facility] [address] [place] [phone] Scanning, Generic Provider 11/04/2024Telephone [facility] [address] [place] [address] Jeannette Dave, OUTSIDE SALES-INTERIOR [employer]SEM[employer]IES DEVELOPER [employer] 11/03/2024 2:00 PM EDTOffice Visit [facility] [address] [facility] [address] [place] [phone] Jeannette Dave, OUTSIDE SALES-INTERIOR [employer]SEM[employer]IES DEVELOPER [employer] BMI 27.0-27.9,adult (Primary Dx); Essential hypertension; Localized edema Discharge Disposition: Home11/03/2024Scanned Document [facility] [address] [place] [phone] Scanning, Generic Provider 11/03/2024Travelfrom Last 3 Months Immunizations ImmunizationAdministration DatesNext DueFlu vaccine, trivalent, preservative free, HIGH-DOSE, age 65y+ (Fluzone)12/03/2024,12/04/2023,12/27/2015,12/16/2014 Influenza, Seasonal, Quadrivalent, Jpnvdmcwzg16/05/2023,12/13/2021Influenza, Split (incl. purified surface antigen)01/12/2017Influenza, Elihujutmev45/11/2020 ,12/16/2018Influenza, injectable, nslxsjayxptz49/24/2018Influenza, trivalent, shcoaxotqt13/22/2021Moderna COVID-19 vaccine, 12 years and older (50mcg/0.5mL)(Spikevax)12/05/2023Moderna COVID-19 vaccine, bivalent, blue cap/grady label *Check age/dose*12/27/2021Novel xbcmrorgw-C9H5-66, preservative-free03/08/2009Pfizer COVID-19 vaccine, 12 years and older, (30mcg/0.3mL) (Comirnaty)12/27/2022neumococcal conjugate vaccine, 13-valent (PREVNAR 13)01/28/2015Pneumococcal conjugate vaccine, 20-valent (PREVNAR 20) 08/06/2022RESPIRATORY SYNCYTIAL VIRUS (RSV), ELIGIBLE PTS, 0.5 ML (ABRYSVO)12/27/2022Tdap vaccine, age 7 year and older (BOOSTRIX, ADACEL) 12/11/2024Zoster vaccine, recombinant, adult (SHINGRIX)05/06/2023,08/06/2022 Zoster, live05/26/2010 Family History Medical HistoryRelationNameCommentsHeart diseaseBrotherHeart diseaseFatherHeart diseaseMotherBreast cancerSisterRheum arthritisSisterRelationNameStatusComments BrotherFatherMotherSister Social History Tobacco UseTypesPacks/DayYears UsedDateSmoking Tobacco: FormerCigarettes0.538 Started: 1956Smokeless Tobacco: Never Tobacco Cessation:Counseling Given: Not Answered Alcohol UseStandard Drinks/WeekCommentsYes7 (1 standard drink = 0.6 oz pure alcohol)CommentsUnknownSex and Gender InformationValueDate RecordedSex Assigned at BirthNot on fileLegal LtbJiexcs10/26/2022 4:05 AM ESTGender Identity Not on fileSexual OrientationNot on file Last Filed Vital Signs Vital SignReadingTime TakenCommentsBlood Oijazklc389/6011 11:08 AM EST Xqyiz754401/27/2025 11:08 AM ESTTemperature--Respiratory Rate--Oxygen Saturation-- Inhaled Oxygen Concentration--Rlgokn62.9 kg (143 lb)01/27/2025 11:08 AM EST Lkgxbi079.9 cm (5' 1 )01/27/2025 11:08 AM ESTBody Mass Index27.02103/29/2024 11:08 AM EST Plan of Treatment DateTypeDepartmentCare Team (Latest Contact Info)Yldyhggzjgo69/06/2026 10:20 AM EDTOffice Visit [place] [address] [address] Inderjit Frausto, DO [address] [facility] [address] [place] [address] Health MaintenanceDue DateLast DoneCommentsLipid Panel1940Medicare Annual Wellness Visit (AWV)1940one Density Scan2005COVID-19 Vaccine ( season)/, 12/05/2023, 12/27/2022, Additional history existsDTaP/Tdap/Td Vaccines (2 - Td or Tdap)5012/11/2024Pneumococcal SvfeyhsZamydyqox65/15/2023, 01/28/2015RSV High Risk: (Elderly (60+) or Population)Ybbglsayl72/05/2023Zoster OeudxqljRlpbuusnz05/12/2024, 08/06/2022, 05/26/2010Influenza CxszljoOnmvhmuqm72/11/2025, 12/04/2023, 12/27/2022, Additional history existsHIB VaccinesAged OutNo longer eligible based on patient's age to complete this topicHPV VaccinesAged OutNo longer eligible based on patient's age to complete this topicHepatitis A VaccinesAged OutNo longer eligible based on patient's age to complete this topicHepatitis B VaccinesAged OutNo longer eligible based on patient's age to complete this topicIPV Vaccines Aged OutNo longer eligible based on patient's age to complete this topic Meningococcal VaccineAged OutNo longer eligible based on patient's age to complete this topicRotavirus VaccinesAged OutNo longer eligible based on patient's age to complete this topic Insurance Care Teams Team MemberRelationshipSpecialtyStart DateEnd Date [place] [address] PCP - GeneralInternal Medicine11/07/23
--- OUTSIDE RECORDS SUMMARY | 2025-01-28 12:29 | XMS_ITS | Clinical Summary ---
Author Organization [facility] Address [address] [place] [address] Care Team Providers Care Stitching Machine Feeder Or Offbearer Name Role Phone Branden Du Primary Care Provider [phone] Allergies No known active allergies Medications MedicationSigDispense QuantityRefillsLast FilledStart DateEnd DateStatus amLODIPine (Norvasc) 5 MG tablet 04/23/2023ctive famotidine (Pepcid) 40 MG tablet Take 40 mg by mouth at wykbvwk5003/14/2023ctive hyoscyamine (Levsin) 0.[address] ONE TABLET UNDER TONGUE AND ALLOW TO DISSOLVE BEFORE MEALS AND AT BEDTIME NEEDED FOR 10 DAYS04/01/2023ctive losartan (Cozaar) 50 MG tablet Take 50 mg by mouth in the morning and 50 mg before bedtime.03/14/2023ctive omeprazole (PriLOSEC) [address] capsule TAKE ONE CAPSULE BY MOUTH ONCE DAILY IN THE MORNING, 30 MINUTES BEFORE MEAL 02/08/2023ctive Social History Tobacco UseTypesPacks/DayYears UsedDateSmoking Tobacco: FormerCigarettes Smokeless Tobacco: Never Tobacco Cessation:Counseling Given: Not Answered CommentsUnknownSex and Gender InformationValueDate RecordedSex Assigned at BirthNot on fileLegal RbiBbheez04/01/2023 8:35 PM EDTGender IdentityNot on fileSexual OrientationNot on file Plan of Treatment DateTypeDepartmentCare Team (Latest Contact Info)Lwxkmnxnchf05/17/2025 1:00 PM ESTOffice Visit [facility] [address] [place] [phone] Vivian Marcelino MD [address] [place] [address] Health MaintenanceDue DateLast DoneCommentsCOVID-19 Vaccine (2024- season) 509/, 12/27/2022, 12/27/2021, Additional history exists Pneumococcal Vaccine: 65+ EygraTyayaktnc50/15/2023, 01/28/2015Influenza Vaccine Ehuuossqm00/11/2025, 12/04/2023, 12/27/2022, Additional history exists Insurance Care Teams Team MemberRelationshipSpecialtyStart DateEnd Date Branden Du DO PCP - GeneralInternal Medicine04/24/23
[2025-01-28 13:03] LABS: Alanine Aminotransferase 33 U/L (14-59); Aspartate Amino Transferase 18 U/L (15-37); Cholesterol 227 mg/dL (<=200); HDL Cholesterol 122 mg/dL (40-60); Triglycerides 94 mg/dL (<=150); VLDL CHOLESTEROL 18.8 mg/dL
== END 2025-01-28 12:24 | disposition home or self-care (01) ==
LOC: LAB 12:25
PROVIDERS: PCP Internal Medicine; Visit Provider Nurse Practitioner
DX: I25.10 Atherosclerotic heart disease of native coronary artery without angina pectoris (principal); E78.5 Hyperlipidemia, unspecified
CPT/HCPCS: 36415; 80061; 84450; 84460

== ENCOUNTER 2025-03-04 12:31 | Outpatient (OUT) | payer MEDICARE, SELFPAY ==
--- OUTSIDE RECORDS SUMMARY | 2025-03-04 07:22 | XMS_ITS | Continuity of Care Document ---
Author Organization [facility] Address [address] [place] [address] Phone Care Team Providers Care Sprinkler Fitter Helper Name Role Phone Branden Du DO Primary Care Provider Justus Damon DO Attending Provider Shannon Chan MD Attending Provider Unavailab Roxane Rolon APRN Attending Provider Shmuel Martinez CONTINUOUS IMPROVEMENT DIRECTOR Attending Provider Jeannette Dave CONTINUOUS IMPROVEMENT DIRECTOR Attending Provider Marito Brambila MD Attending Provider Branden Du DO Attending Provider [phone] Care Teams Patient Care Team Team Status: Active Member Role/Relationship Status Dates Branden Du DO Primary Care Provider Active Visit Care Team Team Status: Inactive Member Role/Relationship Status Dates Branden Du DO Primary Care Provider Active Start: December 14, 2024 End: December 14, 2024Ko Tobias ProviderActiveStart: December 14, 2024 End: December 14, 2024 Visit Care Team Team Status: Active Member Role/Relationship Status Dates Branden Du DO Primary Care Provider Active Start: December 18, 2024 Palmer Gurrola ProviderActiveStart: December 18, 2024 Visit Care Team Team Status: Inactive Member Role/Relationship Status Dates Branden Du DO Primary Care Provider Active Start: December 29, 2024 End: December 29, 2024Charlotte Kraus ProviderActiveStart: December 29, 2024 End: December 29, 2024 Visit Care Team Team Status: Inactive Member Role/Relationship Status Dates Branden Du DO Primary Care Provider Active Start: January 12, 2025 End: January 12, 2025DerCharlotte Estrada ProviderActiveStart: January 12, 2025 End: January 12, 2025 Visit Care Team Team Status: Inactive Member Role/Relationship Status Dates Branden Du DO Primary Care Provider Active Start: January 27, 2025 End: January 27, 2025Charlotte Chilel ProviderActiveStart: January 27, 2025 End: January 27, 2025 Visit Care Team Team Status: Active Member Role/Relationship Status Dates Branden Du DO Primary Care Provider Active Start: January 28, 2025 Charlotte Becerril ProviderActiveStart: January 28, 2025 Visit Care Team Team Status: Inactive Member Role/Relationship Status Dates Branden Du DO Primary Care Provider Active Start: February 04, 2025 End: February 04finn Brambila MDAttending ProviderActive Start: February 04, 2025 End: February 04, 2025 Visit Care Team Team Status: Inactive Member Role/Relationship Status Dates Branden Du DO Primary Care Provider Active Start: February 04, 2025 End: February 04, 2025Charlotte Kraus ProviderActiveStart: February 04, 2025 End: February 04, 2025 Patient Care Team Team Status: Inactive Member Role/Relationship Status Dates Branden Du DO Primary Care Provider Active Start: March 04, 2025 End: March 04luanne Du DOAttkirti ProviderActiveStart: March 04, 2025 End: March 04, 2025 Chief Complaint and Reason for Visit Chief Complaint Admit Date TBH 3 WEEKS December 14, 2024 11:16am MRI results December 29, 2024 11 :25am 6 week follow up/constipation January 122024 11:18am 2 week follow up-constipation January 272024 9:58am YKL: 4 month f/u Abn CT February 04, 2 025 11:35am 1 mo f/u fracture February 04, 2025 12:54pm 3 month f/u March 04, 2025 11:29am Reason for Visit Admit Date Internal derangement of right shoulder S eptember 2024 11:16am Right shoulder strain December 14 11:16am Compression fracture of L1 lumbar verteb ra December 29, 2024 11:25am Compression fracture of T11 vertebra Oct payam 2024 11:25am Irritable bowel syndrome with constipati on January 12, 2025 11:18am Abdominal bloating January 27, 2025 9 :58am Irritable bowel syndrome with constipati on January 27, 2025 9:58am Lung nodule February 04, 2025 11:35am Compression fracture of L1 lumbar verteb ra February 04, 2025 12:54pm Compression fracture of T11 vertebra Nov ember 2024 12:54pm Abdominal pain March 04, 2025 11:29am ASHD (arteriosclerotic heart disease) 2024 11:29am Cervical spondylosis March 04, 2025 11:29am Compression fracture of L1 lumbar verteb ra March 04, 2025 11:29am History of fragility fracture February 222024 11:29am Hypercholesterolemia March 04, 2025 11:29am IBS (irritable bowel syndrome) March 04, 2025 11:29am Internal derangement of right shoulder D ecember 2024 11:29am Lung nodule March 04, 2025 11:29am Medicare annual wellness visit, subseque nt March 04, 2025 11:29am Nicotine addiction March 04, 2025 11:29am Osteopenia March 04, 2025 11:29am Primary hypertension March 04, 2025 11:29am Screening mammogram for breast cancer 2024 11:29am Allergies, Adverse Reactions, Alerts Allergen Type Severity Reaction Last Updated Verified Status Comments Penicillins Allergy Unknown Unknown Reaction March 04, 2025 11:37am Yes Active Onset Date: 09/07/2013 Social History [...] vertebraOctober 2024 11:12amUnknownActive Medicare annual wellness visit, subsequentDe2023 3:14pmUnknown ActiveGastroesophageal reflux disease with esophagitis without hemorrhage May 17, 2023 1:19pmUnknownActiveNicotine addictionAugust 2023 10:49amUnknownActiveHistory of colon resectionFebruary 2023 1:19pmUnknown Activecolon cancerScreening mammogram for breast cancerDe2023 3:16pmUnknownActiveInternal derangement of right shoulderAugust 2024 11:05amUnknownActiveHypercholesterolemiaAugust [...] stenosis, C7-T1 moderate B/L foraminal narrowing - 10/2024OsteopeniaDecember 2024 12:18pmUnknownActivePrimary hypertensionFebruary 2023 1:19pmUnknownActiveAbdominal bloatingNovember 2024 11:19amUnknownActiveHistory of fragility fractureAugust 2024 11:09amUnknownActiveRight shoulder strainAugust 2024 11:06amUnknownActive Right lumbar radiculopathyAugust 2024 9:59amUnknownActiveAbdominal pain November 16, 2024 2:48pmUnknownActiveIrritable bowel syndrome with constipation January 12, 2025 11:33amUnknownActiveConstipationOctober 2024 10:22am UnknownActiveIBS (irritable bowel syndrome)November 12, 2023 11:35amUnknown ActiveLumbar spondylosisFebruary 2023 1:19pmUnknownActiveMRI: L4-5 severe canal stenosis w/ severe right/mod left foraminal stenosis, subacute fx T11, L1 - 9/SHD (arteriosclerotic heart disease)November 10, 2023 10:48amUnknown ActivePCI/stent RCA - 10/27/23Inactive/Resolved Problems Problem Diagnosis/Recorded Date Onset Date Status [...] the night before colonoscopyOmeprazole 40 mg capsule,delayed release(DR/EC)Discontinued0.ROUTE.GAFTRAM954Sdsa 2023 11:27amAugust 2023 4:26amTAKE ONE CAPSULE BY MOUTH ONCE DAILY IN THE MORNING, 30 MINUTES BEFORE MEALMetoprolol Tartrate 50 mg nmqmokBcdvrehvvstk25SI POTwice zphec349497Blmeubzpz 2023 2:23pmDecember 2023 10:21amLosartan 50 mg zerydrNhvpzv80HQJFExgtw dailySeptember 2023 5:04pmComplies with drug therapyAmlodipine 5 mg wkvcyqZpugchjeatux9OSVLNuakt690020Beqhsitcn 2023 11:00pmSeptember 2023 11:35amAmlodipine 5 mg tabletDiscontinued0.ROUTE .NTGOEOT7788Ovtqjswpl 2023 11:35amMay 2024 12:26pmTAKE ONE TABLET BY MOUTH DAILYScopolamine Base 1 mg over 3 days patch 3 xetFmascspasnzs1LZPGS TRANSDERMLEvery 72 xumel631Dwcpnzpq 2023 12:00amApril 2024 10:17am Omeprazole 40 mg capsule,delayed release(DR/EC)Bdtgwa98CTEIJtmfo as needed for eqtp39375Qmpaxtb 2024 2:07pmComplies with drug therapyMetoprolol Tartrate 25 mg iqzisvBphfzmcsvmhh35.5MGPOTwice dailyMay 2024 12:25pmJuly 2024 10:50amAmlodipine 5 mg tabletDiscontinued0.ROUTE.NGLWLFN7088Tnd 2024 12:26pmOctober 2024 6:22amTAKE ONE TABLET BY MOUTH DAILYCarvedilol 6.25 mg tabletActive6.25MGPOTwice zqgie179Wils 2024 11:00pmmust administer with a meal/foodComplies with drug therapyAmlodipine 5 mg tabletDiscontinued0.ROUTE .LDMTZHT1915Saojdlb 2024 6:22amNovember 2024 12:29pmTAKE ONE TABLET BY MOUTH DAILYClopidogrel 75 mg wiiwyoQhiaek38VKULGaatjYgksme 2024 11:00pm Complies with drug therapyPolyethylene Glycol 3350 (Miralax) 17 gram/dose powder Mxxzlxhduxqf97KUEGOmapt as needed for ebqvdizsrlcf5359Iefhmi 31st, 2025 11:00pm January 12, 2025 10:24amAmlodipine 5 mg yimfjuPuvjfndcokty8PXHLSjaviLtciuc 3rd, 2024 11:00pmAugus2023 2:49pmOmeprazole 40 mg capsule,delayed release(DR/EC)Iomqiixsxyfx44DCNRGioyl as needed for painAugust 2023 11:00pm April 10, 2024 2:07pmAtorvastatin 80 mg HddmopAgymve16QFCEBjmdo ikrcmir29035 October 28, 2023 11:00pmComplies with drug therapyAspirin 81 mg Tablet,Delayed Release (Dr/Ec)Jehcxn86UHPBGxsjj24242Fnfcou 5th, 2024 11:00pmComplies with drug therapyNitroglycerin 0.4 mg Tablet, SublingualActive0.4NAJRGXCVNLASJ4N as needed for Chest Nnzc45088UqnrodOctober 28, 2023 11:00pmComplies with drug therapyMetoprolol Tartrate 25 mg PujnhhVqpgkiwemxra50AHWGPxmhb bittc264654Zltsmr2023 11:00pm November 29, 2023 2:23pmTicagrelor (Brilinta) 90 mg VzcdafXkkxsbzsztcc59TBXN Twice mpdyx813066Saegjo2023 11:00pmDecember 2023 4:37pmLosartan 25 mg RerbqkCozgttiekcih17HAAQDedhy carlirl760027Wpvize2023 11:00pmAugust 2023 11:35amOmeprazole 40 mg capsule,delayed release(DR/EC)Bmnojulteqbk81 MGPODaily as needed for acid refluxMarch 2023 11:00pmJuly 2023 11:27amMultivitamin rnzzeqMufylp3WMJDVGvwahCopfo 2023 11:00pmComplies with drug therapySod Picosulf-Mag Ox-Citric Ac (Clenpiq) 10 mg-3.5 gram- 12 gram/175 mL ycbqeipzXrzchhidoffn347HAOFGgtkt76255Tlcse 2023 11:00pmApril 2023 7:43amBowel Preptake first dose at 3PM evening before colonoscopy; 2nd dose at 9pm the night before colonoscopyLosartan 50 mg eptquyRbqibvovbldr339MUCHOdqop dailySeptember 2023 12:23pmSeptember 2023 5:05pmDicyclomine 10 mg xfhwfclWsjyieyqmanp24RJHNDcuzd ltcbh351771Jlsioxrma 18th, 2024 11:00pmDecember 2023 1:18pmLosartan 50 mg upvjmqJhjybowujnsw98ZMSRSxzru pxhvt294216 December 01, 2023 6:48pmSeptember 2023 12:32pmDicyclomine 20 mg tablet Ejzolkdtngpw79ZFIXTctpa vuxnm215444Syyqnfoc 18th, 2024 12:00amApril 2024 10:24amClopidogrel (Plavix) 75 mg jcsxxtGqwirdlikapq24HXFTMjjrpDxflwbhf 2023 12:00amAugust 2024 9:28pmPrednisone 10 mg siyhtnIqlggxhqtxwl34LPFKFd Dildcgbq8718Ohbtvl 2024 11:00pmAugust 2024 9:28pm1 tablet PO tid w/ food x 2 days then bid w/ food x 2 days then qd w/ food x 2 daysTizanidine 2 mg kfuszdRfforrimgxsr0XOLhlqr at bedtime as needed for muscle pvxsylorev76127Vjwtrv 12th, 2025 11:00pmAugust 2024 9:28pm1/2 - 1 tablet orally daily at bedtime PRN;Cholecalciferol (Vitamin D3) 50 mcg (2,000 unit) tablet,pyuqibsbVbbtnq05IRE PODailySept2024 11:00pmComplies with drug therapyPolyethylene Glycol 3350 (Miralax) 17 gram/dose znzxfbUbgvfv61UBBOOhiem6407Rmqymasni 2024 11:00pmComplies with drug therapycalcium acetateActivePONoveer 2024 12:00amComplies with drug therapyAmlodipine 5 mg pdfectDrvvpkmpwezk4EECRGvjlo May 17, 2023 12:00amMarch 2023 1:35pmFamotidine 40 mg tablet Lgvlsgdbcflm40CQPBXzrfm at bedtimeFebruary 2023 12:00amMarch 2023 1:35pmHyoscyamine Sulfate (Levsin/Sl) 0.125 mg tablet, sublingualDiscontinued 0.125MGSUBLINGUAL.COMPLEXFebruary 2023 12:00amMay 2023 12:19pm0.125 mg sublingually before meals and at bedtimeLosartan 50 mg twmhgwBvqsknqxkqie37JN PODailyFebruary 2023 12:00amAugust 2023 2:49pmMeloxicam 15 mg tablet Ewvllyvyguth15CKXMYddeuYoonniai 2023 12:00amMarch 2023 1:35pm Ondansetron 4 mg tablet,jydzughpoxchnlCdydrijosahv9LTANRbksp 6 hours as needed May 17, 2023 12:00amMarch 2023 1:35pmLosartan 25 mg tablet Edaotacwehri40GBWPJasaz merlv356475Wlsbgf 20th, 2024 11:19amSeptember 2023 6:48pmHyoscyamine Sulfate 0.125 mg tablet, sublingualDiscontinued0.125MG SUBLINGUAL2-4 TIMES PER DAY as needed for abdominal pain, xqdmlxsp424Srzxmf 2023 11:00pmSeptember 2023 12:31pmAmlodipine 5 mg tabletDiscontinued 3TKBRCohem05658Ecyqzn 2023 11:00pmSeptember 2023 12:30pmMetoprolol Tartrate 25 mg vbellfUegywphbxjmg44UTEQRvqde dailyDeceer 2023 12:00amMay 2024 12:26pmDicyclomine 20 mg eiwvmdXpmiskhmwaqh60ZICKIness boxbg023502 July 20, 2024 10:23amSeptember 2024 12:23pmKetoconazole 2 % shampoo Nxdtslxpommd5JSGYPKALQDFOP3 Times a wlgs166221LwiAugust 18, 2024 11:00pmAugust 2024 9:28pmClobetasol 0.05 % vojqxbfbEbuqubaqskbu8DFGBJRKAYJYQSIgwju at bedtime 26068WnuAugust 18, 2024 11:00pmAugust 2024 9:28pm Immunizations Immunization Event Date Not Given Reason Dose Number 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 Lot Number Reason(s) Given Vaccine Information Statement (VIS) Detail Administration Location Fluzone TIV High-Dose 65YR+ December 04, 2023 [id number] 65YR+December 03, 2024 [id number] [facility]influ[facility], unspecified formulationOctober , 2015influenza, unspecified formulationOctober , 2016influenza, unspecified formulationOctober , 2017influenza, unspecified formulationSeptember , 2018influenza, unspecified formulationSeptember , 2019influenza, unspecified formulationSeptember , 2020influenza, unspecified formulationSeptember , neumococcal Conjugate Vaccine, 13 valentNovember 2014 Medical Equipment Device Date Implanted Device Details CL STENT TOMER FRONTIER 4.0 X 18 October 27, 2023 Femoral artery closure plug/patch, synthetic polymerAugust 2023UDI: [id number] Issuing Agency: [employer] Device Id: [id number] Lot Number: [id number] Relevant Diagnostic Tests and/or Laboratory Data Laboratory Results Test Collection Date/Time Result Date/Time Result Interpretation Reference Range Result Comment Performing Site Creatinine December 18, 2024 11:31am December 18 11:31am 0.81 mg/dL 0.55-1.02Cholesterol/HDL RatioNovember 2024 12:33pmNovember 2024 12:33pm1.93.3 - 4.4 LOW RISK4.4 - 7.1 AVERAGE RISK7.1 - 11.0 MODERATE RISK>11.0 HIGH RISKAlanine Aminotransferase (ALT/SGPT)January 28, 2025 12:33pmNov2024 12:33pm33 U/K76-14Fludekhxa Amino Transf (AST/SGOT)January 28, 2025 12:33pmNov2024 12:33pm18 U/F26-51Epgpvhkmn GFR () December 18, 2024 11:31amSept2024 11:31am>60>=60 mL/min/1.73m 2 Cholesterol LevelNov2024 12:33pmNov2024 12:83gm561 mg/dL Above high normal<=200Estimated GFR (Non- AmericanSept2024 11:31amSeptember 2024 11:31am>60>=60 mL/min/1.73m 2HDL CholesterolNovember 2024 12:33pmNov2024 12:45lk920 mg/dLAbove high qouhud67-26> or =60 mg/dl - LOW CARDIOVASCULAR RISK<40 mg/dl - HIGH CARDIOVASCULAR RISKLDL Cholesterol, CalculatedNov2024 12:33pmNov2024 12:33pm87.0 mg/dL<100 mg/dl IURGQMU183-794 mg/dl NEAR OR ABOVE LMUZWQL267-520 mg/dl BORDERLINE ZARA785-607 mg/dl HIGH>190 mg/dl VERY HIGHTriglycerides LevelNovember 2024 12:33pmNov2024 12:33pm94 mg/dL<=150VLDL CholesterolNov2024 12:33pmNov2024 12:33pm18.8 mg/dL Vital Signs Vital Reading Result Reference Range Collection Date/Time Weight 65.00 kg December 29, 2024 10:99nmRuijdu26 [in_i]January 12, 2025 10:58cbDqtvvp36.50 kg January 12, 2025 10:22amBMI (Body Mass Index)26.4 kg/z9Hquyanz2024 10:79eeKxoush23 [in_i]January 27, 2025 10:24ixUdotne01.50 kgNov2024 10:12amHeart Rate66 /ivx25-959Rujorqnd 5th, 2025 10:12amBP Nlpwtcat735 mm[Hg] 100-140Nov2024 10:12amBP Qxuehszkw01 mm[Hg]60-100Nov2024 10:12amBMI (Body Mass Index)26.4 kg/e4CnyqemebJanuary 27, 2025 10:97kvGueqyl90 [in_i] February 04, 2025 12:36bnIzcclg54.50 kgFebruary 04, 2025 12:31pmHeart Rate64 /dqx54-647EcogodorFebruary 04, 2025 12:31pmOxygen saturation by Pulse ixaiezzg73 % 95-100February 04, 2025 12:31pmBP Ufrafhbx545 mm[Hg]100-140February 04, 2025 12:31pmBP Xafxzvbrj58 mm[Hg]60-100Nov2024 12:31pmBMI (Body Mass Index)26.4 kg/t5JqxxwdlwFebruary 04, 2025 12:15mdAbdgcy72 [in_i]February 04, 2025 12:55ugZggnvx52.20 kgNov2024 12:55pmBMI (Body Mass Index)26.7 kg/m2 February 04, 2025 12:32ubGixdse48 [in_i]March 04, 2025 11:62nxKoeawo18.43 kgDecember 2024 11:44amHeart Rate67 /mqx90-393Jogkrbip 2024 11:44am Respiratory rate12 /scr24-38Iykzrzok 2024 11:44amBP Ahpujirq444 mm[Hg] 100-140December 2024 11:44amBP Wmjltblcq56 mm[Hg]60-100December 2024 11:44amBMI (Body Mass Index)27.2 kg/k5Ikekvwum 2024 11:44am Advance Directives Advance Directive Response Recorded Date/ Time Advance Directives No August 18 8:23am Insurance Providers Guarantor Genny Barboza Address [address] [place] [id number] Info[employer]Home Phone: Coverage Status Update:2025 Payer Group Member ID Coverage Type Subscriber Relationship to Subscriber Effective Date Expiration Date Medicare [id number] E Vogel Id: [id number] [address] [facility] [id number] Home Phone: Email: [email or web address] Claims [id number] E Vogel Id: [id number] [address] [facility] [phone] Home Phone: Email: [email or web address] Encounter Location(s) Arrival/Admit Date Discharge/Departure Date Discharge/Departure Disposition Provider(s) Departed Physician/ Provider Office Visit -[facility] [place] December 14, 2024 11:16am December 14, 2024 12:18pm Discharged to home care or self care (routine discharge) Justus Damon DO Non-patient / Non-visit -[facility] December 18, 2024 12:31pm Shannon Chan MDDeparted Physician/Provider Office Visit-[facility] 2024 11:25amOctober 2024 12:13pmDischarged to home care or self care (routine discharge)Roxane Granda APRNDeparted Physician/Provider Office Visit-[facility] GastroOctober 2024 11:18amOctober 2024 12:00pmDischarged to home care or self care (routine discharge)JUAN Chileleparted Physician/Provider Office Visit- [facility] GastroNovember 2024 9:58amNovember 2024 10:45am Discharged to home care or self care (routine discharge)Shmuel Martinez APRN Non-patient / [facility]ud[facility]bwumz[facility] 2024 12:33pm Jeannette Dave APRNDeparted Physician/[facility] 11:35amNovember 2024 12:54pmDischarged to home care or self care (routine discharge)Marito Brambila , MDDeparted Physician/Provider Office Visit-[facility] NeurosurgeryNovember 2024 12:54pmNovember 2024 1:09pmDischarged to home care or self care (routine discharge)Roxane Granda , APRNDeparted Physician/Provider Office Visit-[facility] Florian [facility] 2024 11:29amDecewhite [facility] 2024 12:21pm Discharged to home care or self care (routine discharge)Branden Du , DO Recent Diagnosis Onset Date Admit Date Internal derangement of right shoulder Unknown December 14, 2024 11:16am Right shoulder strain Unknown December 14, 2024 11:16am Compression fracture of L1 lumbar vertebra Unkno wn December 29, 2024 11:25am Compression fracture of T11 vertebra Unknown December 29, 2024 11:25am Irritable bowel syndrome with constipation Unkno wn January 12, 2025 11:18am Abdominal bloating Unknown January 27, 2025 9:58am Irritable bowel syndrome with constipation Unkno wn January 27, 2025 9:58am Lung nodule Unknown February 04, 2 025 11:35am Compression fracture of L1 lumbar vertebra Unkno wn February 04, 2025 12:54pm Compression fracture of T11 vertebra Unknown February 04, 2025 12:54pm Abdominal pain Unknown March 04, 2 025 11:29am ASHD (arteriosclerotic heart disease) Unknown March 04, 2025 11:29am Cervical spondylosis Unknown March 042024 11:29am Compression fracture of L1 lumbar vertebra Unkno wn March 04, 2025 11:29am History of fragility fracture Unknown De cember 2024 11:29am Hypercholesterolemia Unknown March 042024 11:29am IBS (irritable bowel syndrome) Unknown D ecember 2024 11:29am Internal derangement of right shoulder Unknown March 04, 2025 11:29am Lung nodule Unknown March 04, 2 025 11:29am Medicare annual wellness visit, subsequent Unkno wn March 04, 2025 11:29am Nicotine addiction Unknown February 11:29am Osteopenia Unknown March 04, 2 025 11:29am Primary hypertension Unknown March 042024 11:29am Screening mammogram for breast cancer Unknown March 04, 2025 11:29am Assessments Diagnosis Onset Date Resolution Status Admit Date Internal derangement of right shoulder acuteSeptember 2024 11:16amRight shoulder strainacuteSeptember 2024 11:16amCompression fracture of L1 lumbar vertebraacuteOctober 2024 11:25am Compression fracture of T11 vertebraacuteOctober 2024 11:25amIrritable bowel syndrome with constipationacuteOctober 2024 11:18amAbdominal bloatingacuteNovember 2024 9:58amIrritable bowel syndrome with constipation acuteNovember 2024 9:58amLung noduleacuteNovember 2024 11:35am Compression fracture of L1 lumbar vertebraacuteNovember 2024 12:54pm Compression fracture of T11 vertebraacuteNovember 2024 12:54pmAbdominal painacuteDecember 2024 11:29amASHD (arteriosclerotic heart disease)acute March 04, 2025 11:29amCervical spondylosisacuteDecember 2024 11:29am Compression fracture of L1 lumbar vertebraacuteDecember 2024 11:29am History of fragility fractureacuteDecember 2024 11:29am HypercholesterolemiaacuteDecember 2024 11:29amIBS (irritable bowel syndrome)acuteDecember 2024 11:29amInternal derangement of right shoulder acuteDecember 2024 11:29amLung noduleacuteDecember 2024 11:29am Medicare annual wellness visit, subsequentacuteDecember 2024 11:29am Nicotine addictionacuteDecember 2024 11:29amOsteopeniaacuteDecember 2024 11:29amPrimary hypertensionacuteDecember 2024 11:29amScreening mammogram for breast canceracuteDecember 2024 11:29am Plan of Treatment Author Justus Damon [facility]ored[facility]24 11:51amMary returns with right shoulder injury after fall. At this juncture we have discussed the findings and diagnosis as well as personally reviewed appropriate imaging and performed interpretation of related testing and examination with the patient in office today. Prior medical notes from [facility] and history have been reviewed. She is rtzmj-omyk-jqabuprt had no prior right shoulder issues. On [...] amended by myself Justus Damon D.O. Author Roxane Granda [facility] HospitalAuthoredOctober 2024 11:16fo09-mddc-egw female who presents today for follow-up and [...] updated x-rays in about a month. Author Shmuel [facility] 2024 11:23am- Patient to continue daily MiraLAX titration for treatment of IBS-C. - Recommend patient to consider daily probiotic therapy to help facilitate introduction of appropriate gut elliot. - Patient also advised to consider utilization of as needed simethicone for treatment of her intermittent abdominal bloating. - Recommend limiting toilet time to 5 to 10 minutes maximum. - Recommend abstaining from straining during defecation. - Recommend incorporating fiber into her daily diet. - Recommend consuming 6-8 12 oz glasses of water a day to help facilitate adequate hydration. - Follow-up office visit in 1 year for IBS-C. Author Marito Brambila [facility] 2024 12:55pmCT scan of the thorax from December 2024 has not changed considerably compared to August 2024. This is more likely inflammatory with the possibility of a small air-fluid level and fluid-filled cavity and is less likely to be malignant. Patient is otherwise asymptomatic. Even if this were possibly to be a malignancy it is relatively slow-growing and aggressive biopsy and treatment may be more deleterious to the patient's overall health and quality of life than observation. This is also on a bad area for biopsy. It was all discussed at length with patient and we both agreed to continue with surveillance with repeat CT scan in 6 months. All questions were answered. The patient was advised to call us if there are any new respiratory issues or concerns. Author Shmuel [facility] 2024 11:42am- Recommend patient to continue daily [...] office visit in 2 weeks for constipation. Author Branden Du [facility] HospitalredDecejanina 2024 12:20pmInformed [address] CT findings Palpable tenderness at site Instructed to use heat/ice and gentle stretching Completed referral to Neurosurgery, ordered bracing. Reassured that she will heal and eventually have resolution of pain Needs DEXA - fragility fracture gives her Osteoporosis despite T score - Ca and Vit D supplementation w/ weight bearing exercises - will discuss bisphosphonate vs prolia treatment after DEXA Diffuse abdominal pain, which is moderate to severe in intensity. Tender to light touch along w/ mild distention and decreased ability to eat. She denies N/V or hematemesis She was evaluated in the ER and has seen GI in consultation. CT w/o abnormal findings XR w/ increased stool burden Instructed to stop Dicyclomine and take Miralax daily ROM exercises, heat/ice and Tylenol She denies [...] measures in reducing risks for recurrent events. PCI/stent RCA - 10/27/23 Continue ASA and Atorvastatin without interruption Continue surveillance. She denies CP, unexplained dyspnea or hemoptysis CT: 1.7cm nodule RLL - 03/2023 PET/CT: no FDG avid nodules - 04/2023 CT: 1.9cm nodule RLL - 06/2023 CT: 2.6cm RLL mass - 02/2024 CT: 2cm RLL nodule - 08/2024, CT: right basilar consolidation - 12/2024 Referred to Pulmonary w/ decision to continue [...] interruption L1 compression fracture Conservative treatment recommended. I have instructed this patient on the recommended lifestyle changes, which includes a low fat, high fiber diet along with a regular exercise routine. I have also reviewed the recommended age-appropriate preventive testing for this patient. I have also reviewed the recommended vaccines for their age and risk factors. I have instructed this patient on a low fat, high fiber diet and exercise. I have discussed the primary and secondary prevention benefits attributed to lowering LDL cholesterol. I have also discussed the medical treatment of elevated cholesterol, which is based on the 10 year ASCVD risk. Continue Atorvastatin without interruption Continue abstinence. They are aware of the hazards associated with tobacco use, including but not limited to respiratory infections, vascular disease and cancers. Scheduled for yearly LDCT chest for lung cancer screening is recommended. I have instructed this patient on monthly SBE and recommended yearly mammograms. Instructed to continue calcium and vitamin D supplements. Instructed on weight bearing exercises. Monitor w/ DEXA qoy. Discussed treatment options and side effects. She is recovering from a recent vertebral fx and will allow healing before initiating therapy Author Roxane Granda [facility] 1:12pmPatient is a 89-year-old female who presents today for follow-up after sustaining L1 and T11 compression deformities back in October. She tells me that she is feeling much better, her pain is nearly gone. She still being cautious on how she does things, but overall is back to her average functional level. She has been intermittently compliant with her TLSO, and lately have only been wearing it once in a while. No back pain today. No complaints of leg radiculopathy. No bowel or bladder concerns. No radiating rib or abdominal pain. She once again forgot to obtain a follow-up x-ray off the thoracic spine, however she had recently underwent a chest CT as a surveillance for a lung nodule. I was able to visualize the fractured vertebrae's which appear stable. There is no acute bony injury/pathology. I do not need any further imaging down the line. She can get rid of the brace at this point. Follow-up on an as needed basis. Future Tests Future scheduled test information is unavailable Pending Tests Test Name Ordered Date Scheduled Date XR thoracic spine 3V* December 29, 2024 11:11am [facility] 12:47pm6 MonthsComprehensive Metabolic Panel March 04, 2025 12:15pm Future Visits Future appointment information is unavailable Future Procedures Procedure Name Ordered Date Scheduled Date Complete Blood Count Auto Diff March 04 12:15pm Vitamin D 25 Hydroxy TotalDecemb2024 12:16pm Future Medications Future medication information is unavailable Patient Instructions Patient instructions are unavailable
--- OUTSIDE RECORDS SUMMARY | 2025-03-04 12:40 | XMS_ITS | CCD ---
Author Organization [facility] Care Team Providers Care Resident Caregiver Name Role Phone Unavailable Primary Care Provider Peter FRAGA, DR OROZCO Primary Care Unavailable CHRIS ., ALBERTO Admitting Unavailable CHRIS ., ALBERTO Attending Unavailable CHRIS ., ALBERTO Consulting Unavailable PHILLY, DR OROZCO Admitting Unavailable PHILLY, DR OROZCO Attending Unavailable PHILLY, DR OROZCO Consulting Unavailable PHILLY, DR OROZCO Primary Care Unavailable CHARLES, DR JOAQUIN Canales Consulting Unavailable PHILLY, DR OROZCO Admitting Unavailable PHILLY, DR OROZCO Attending Unavailable BALL, DR OROZCO Consulting Unavailable BALL, DR OROZCO Primary Care Unavailable RACIEL, DR KALPANA Phelps Consulting Unavailable PROVIDER, UNKNOWN Attending Unavailable PROVIDER, UNKNOWN Admitting Unavailable Branden Fraga Unavailable ELENA HASASN Attending Unavailable DO Branden Fraga Primary Care Provider DO Branden Fraga Attending Provider DO Branden Fraga Primary Care Provider DO Branden Fraga Attending Provider FLAKITA Álvarez Emergency Provider DO Branden Fraga Primary Care Provider DO Reji Frausto Admit Provider DO Reji Frausto Attending Provider MD Sobia Okeefe Other Provider DO Rona Andres Emergency Provider Dmitry NATION, Maura Unavailable Unavailable Branden Farga DO Primary Care Provider Branden Fraga DO Primary Care Provider Sylvester Monk MD Attending Provider Vanessa Dave APRN Attending Provider Ball DO, Branden Attending Provider Maldonado LOZANO, Sobia Stanley Attending Provider Laurie Mills MD Attending Provider Ball DO, Branden Primary Care Provider Maura Perez CMA Attending Provider Unavaila ble Ball DO, Branden Primary Care Provider Ball DO, Branden Attending Provider Justus Damon DO Attending Provider Kalee PATIENT COORDINATOR, Roxane Attending Provider Micah LOZANO, Trinity Foreman Emergency Provider [phone] Curt LOZANO, Benjamin Admit Provider Benjamin Elias MD Attending Provider Mendez Lambert MD Attending Provider [phone] Laurie Mills Attending Unavailable Laurie Mills Admitting Unavailable Benjamin Elias Admitting Unavailable Philly, Branden Primary Care Unavailable Mendez Lambert Attending Unavailable Michelle MCKAY Shmuel A Attending Provider Philly DO, Branden Primary Care Provider Shannon Chan MD Attending Provider Unavailab le Ball DO, Branden Primary Care Provider Ball DO, Branden Primary Care Provider Ball DO, Branden Attending Provider Maura Perez CMA Attending Provider Unavaila ble Marisol DO Justus A Attending Provider Kalee MCKAY, Roxane Attending Provider Micah LOZANO, Trinity Foreman Emergency Provider Curt LOZANO, Benjamin Admit Provider Mendez Lambert MD Attending Provider [phone] Michelle MCKAY Shmuel A Attending Provider Shannon Chan MD Attending Provider Unavailab le Ball DO, Branden E Primary Care Provider VANESAS DAVE Attending Unavailable VANESSA DAVE Referring Unavailable BRANDEN FRAGA Primary Care Unavailable VANESSA DAVE Attending Unavailable INDERJIT FRAUSTO Referring Unavailable BRANDEN FRAGA Primary Care Unavailable INDERJIT FRAUSTO Attending Unavailable INDERJIT FRAUSTO Referring Unavailable BRANDEN FRAGA Primary Care Unavailable VANESSA DAVE Attending Unavailable BRANDEN FRAGA Primary Care Unavailable VANESSA DAVE Attending Unavailable VANESSA DAVE Referring Unavailable BRANDEN FRAGA Primary Care Unavailable Allergies Allergy ClassificationReported Allergen(s)Allergy TypeDate of OnsetReaction(s) Facility (2 sources)Penicillins; Translations: [PENICILLINS]Drug allergy (disorder) 25-64-7193[facility] (12 sources)Substance with penicillin structure and antibacterial mechanism of action (substance)Drug esoucyo36-73-3805MjalovxBxecx Qwilt Other (2 sources)PenicillinsPropensity to adverse vvxlimyqv44-66-9776HizybauTfjuwwifowOhio [facility] Hospital (4 sources)PenicillinsPropensity to adverse pvtgatbna54-85-5307GaxahsxKjbhtkixizOhio Valley Surgical Hospital (1 source)PenicillinsDrug allergy (disorder)10-39-2408[facility]nvzubjbzPrem[facility] Medications Current Medications MedicationDrug Class(es)DatesSig (Normalized)Sig (Original)aspirin 81 mg delayed release oral tablet (20 sources)Platelet Aggregation Inhibitor, Nonsteroidal Anti-inflammatory Drug Start: 74-24-5137rwbv 1 tablet by mouth once dailyaspirin 81 mg EC tablet Take 1 tablet (81 mg) by mouth once daily. 10/29/2023 Activeatorvastatin 80 mg oral tablet (20 sources)HMG-CoA Reductase InhibitorStart: 16-39-5155vdju 1 tablet by mouth once daily in the eveningatorvastatin (Lipitor) 80 mg tablet Indications: Hyperlipidemia, unspecified hyperlipidemia type TAKE 1 TABLET BY MOUTH EVERY DAY IN THE EVENING 90 tablet 3 09/30/2024 Activecalcium acetate (1 source)Start: 09-54-0027nxkxlfv acetate Active PO January 27, 2025 12:00am Complies with drug therapyCalcium Carbonate (1 source)take 1 tablet by mouth once dailycalcium carbonate (CALCIUM 600 ORAL) Take 1 tablet by mouth once daily. Activecarvedilol 6.25 mg oral tablet (16 sources)alpha-Adrenergic Fariha, beta-Adrenergic BlockerStart: 09-29-2024 End: 49-31-9836xipr 1 tablet by mouth twice dailycarvedilol (Coreg) 6.25 mg tablet Indications: Essential hypertension Take 1 tablet (6.25 mg) by mouth 2 times daily (morning and late afternoon). 60 tablet 11 09/29/2024 09/29/2025 Activecholecalciferol 0.05 mg chewable tablet (7 sources)Vitamin DStart: 18-26-4417yoilhlxvwwbxgcs, vitamin D3, 50 mcg (2,000 unit) tablet,chewable 2,000 Units once daily. 12/01/2024tiveStart: 12-01-2024 take 1 tablet by mouth once dailyCholecalciferol (Vitamin D3) 50 mcg (2,000 unit) tablet,chewable Active 50 MCG PO Daily November 30, 2024 11:00pm Complies with drug therapyclopidogrel 75 mg oral tablet (20 sources)P2Y12 Platelet InhibitorStart: 12-24-2024 End: 09-62-1571yfjh 1 tablet by mouth in the morningclopidogrel (Plavix) 75 mg tablet Indications: History of PTCA , History of ST elevation myocardial infarction (STEMI) , Coronary artery disease, unspecified vessel or lesion type, unspecified whether angina present, unspecified whether [place] or transplanted heart Take 1 tablet (75 mg) by mouth early in the morning.. 90 tablet 3 12/24/2024 12/24/2025 ActiveStart: 12-20-2023 End: 74-22-4083nhnd 1 tablet by mouth once dailyClopidogrel (Plavix) 75 mg tablet Discontinued 75 MG PO Daily March 09, 2024 12:00am November 22, 2024 9:28pmKetoconazole 2 % shampoo (1 source)Start: 34-67-6416Mgttfludqhem 2 % shampoo Active 1 APPLIC TOPICAL 3 Times a week 120 August 19, 2024 12:00amlosartan potassium 50 mg oral tablet (20 sources)Angiotensin 2 Receptor BlockerStart: 12-12-2023 End: 90-69-4447fuxf 2 tablets by mouth twice dailyLosartan 50 mg tablet Discontinued 100 MG PO Twice daily December 12, 2023 12:23pm December 20, 2023 5:05pmStart: 55-13-1223neyw 100 mg by mouth twice dailyLosartan Active 100 MG PO Twice daily December 12, 2023 1:23pmStart: 11-20-2023 End: 05-10-9856xduz 1 tablet by mouth twice dailylosartan (Cozaar) 50 mg tablet Indications: Essential hypertension Take 1 tablet (50 mg) by mouth 2times a day. 180 tablet 3 09/29/2024 09/29/2025 ActiveStart: 11-12-2023 End: 90-29-8005atmn 1 tablet by mouth twice dailyLosartan 25 mg tablet Discontinued 25 MG PO Twice daily 60 30 12 November 12, 2023 11:19am December 01, 2023 6:48pmStart: 10-29-2023 End: 62-67-1132vyew 1 tablet by mouth once daily in the morningLosartan 25 mg Tablet Discontinued 25 MG PO Every morning 30 30 12 October 28, 2023 11:00pm November 12, 2023 11:35amStart: 05-17-2023 End: 58-64-6973fsfv 1 tablet by mouth once dailyLosartan 50 mg tablet Discontinued 50 MG PO Daily May 17, 2023 12:00am October 29, 2023 2:49pm Start: 67-20-6065rdqp 50 mg by mouth twice dailyLosartan Active 50 MG PO Twice daily May 17, 2023 1:00amStart: 59-35-5602kgmi 1 tablet by mouth twice dailyLosartan Potassium 50 MG 1 tablet Orally twice daily for 30 days Apr, ActiveStart: 85-74-7720btlg 1 tablet by mouth every twenty-four hours Losartan Potassium 50 MG 1 tablet Orally qd Apr, ActiveStart: 05-22-2022 take 1 tablet by mouth twice dailyLosartan Potassium 25 MG 1 tablet Orally twice daily Apr, ActiveStart: 37-75-9278htrr 1 tablet by mouth every twenty- four hoursLosartan Potassium 25 MG 1 tablet Orally Once a day for 30 days Apr, Activemultivit with minerals/lutein (MULTIVITAMIN 50 PLUS ORAL) (7 sources)Start: 00-09-9513aere 1 tablet by mouth once dailymultivit with minerals/lutein (MULTIVITAMIN 50 PLUS ORAL) Take 1 tablet by mouth once daily. 06/20/2023 ActiveMultivitamin preparation (7 sources)Start: 22-96-5961eqev 1 tablet by mouth once dailyMultivitamin Active 1 TAB PO Daily June 20, 2023 12:00amMultivitamin tablet (17 sources)Start: 40-24-6669ztst 1 tablet by mouth once dailyMultivitamin tablet Active 1 TAB PO Daily June 19, 2023 11:00pm Complies with drug therapy Start: 03-03-3425hlzl 1 tablet by mouth once dailyStart: 73-56-3064bpih 1 tablet by mouth once dailyMultivitamin tablet Active 1 TAB PO Daily June 20, 2023 12:00am Complies with drug therapyStart: 33-51-2492dzst 1 tablet by mouth once dailyMultivitamin tablet Active 1 TAB PO Daily June 20, 2023 12:00amStart: 64-30-0070cixs 1 tablet by mouth once dailyMultivitamin tablet Active 1 TAB PO Daily June 19, 2023 11:00pmnitroglycerin 0.4 mg sublingual tablet (20 sources)Nitrate VasodilatorStart: 37-91-5667tdohebxgpjdtk (Nitrostat) 0.[address] 1 tablet (0.4 mg) under the tongue every 5 minutesif needed for chest pain. 10/29/2023 Activepolyethylene glycol 3350 59913 mg powder for oral solution (13 sources)Osmotic LaxativeStart: 11-23-2024 End: 21-09-8646oycpbzlcpmno glycol (Glycolax, Miralax) 17 gram/dose powder MIX 17 GM IN DRINK AND TAKE DAILY NEEDED FOR CONSTIPATION 12/27/2024 Active sulfamethoxazole 800 mg / trimethoprim 160 mg oral tablet (11 sources)Dihydrofolate Reductase Inhibitor Antibacterial, Sulfonamide AntimicrobialStart: 79-47-9508iugk 1 tablet by mouth every twelve hours Sulfamethoxazole-Trimethoprim 800-160 MG 1 tablet Orally Twice a day for 5 days Jan, Active Completed/Discontinued Medications MedicationDrug Class(es)DatesSig (Normalized)Sig (Original)amLODIPine 5 mg oral tablet (20 sources)Dihydropyridine Calcium Channel BlockerStart: 12-23-2023 End: 63-48-5898wica 1 tablet by mouth once dailyAmlodipine 5 mg tablet Discontinued 0 .ROUTE .COMPLEX 30 August 06, 2024 12:26pm December 29, 2024 6:22am TAKE ONE TABLET BY MOUTH DAILYStart: 12-20-2023 End: 80-05-3511yzdk 1 tablet by mouth once dailyAmlodipine 5 mg tablet Discontinued 5 MG PO Daily December 19, 2023 11:00pm December 23, 2023 11:35amStart: 11-12-2023 End: 14-25-0464xlnp 1 tablet by mouth once dailyAmlodipine 5 mg tablet Discontinued 5 MG PO Daily November 11, 2023 11:00pm November 12:30pmStart: 10-27-2023 End: 98-08-8388gtpp 1 tablet by mouth once dailyAmlodipine 5 mg tablet Discontinued 5 MG PO Daily October 26, 2023 11:00pm October 29, 2023 2:49pm Start: 04-23-2023 End: 25-65-6264hwpv 1 tablet by mouth once dailyAmlodipine 5 mg tablet Discontinued 5 MG PO Daily May 17, 2023 12:00am June 20, 2023 1:35pm clobetasol propionate 0.5 mg/ml topical solution (14 sources)CorticosteroidStart: 08-19-2024 End: 57-99-1376Jfkbrtkkwi 0.05 % solution Discontinued 1 APPLIC TOPICAL Daily at bedtime August 18, 2024 11:00pm November 22, 2024 9:28pmdicyclomine hydrochloride 20 mg oral tablet (20 sources)AnticholinergicStart: 07-27-2024 End: 37-67-9890xnco 1 tablet by mouth every twelve hoursdicyclomine (Bentyl) 20 mg tablet Take 1 tablet (20 mg) by mouth every 12 hours. 07/27/2024 01/27/2025 Discontinued (Therapy completed)Start: 03-11-2024 End: 07-26-1749bzaw 1 tablet by mouth twice dailyDicyclomine 20 mg tablet Discontinued 20 MG PO Twice daily 180 90 3 July 20, 2024 10:23am November 23, 2024 12:23pmStart: 12-12-2023 End: 12-54-7577xclv 1 capsule by mouth twice dailyDicyclomine 10 mg capsule Discontinued 10 MG PO Twice daily 60 30 11 December 11, 2023 11:00pm March 11, 2024 1:18pmfamotidine 40 mg oral tablet (20 sources)Histamine-2 Receptor AntagonistStart: 05-17-2023 End: 77-58-2627lsch 1 tablet by mouth once daily at bedtimeFamotidine 40 mg tablet Discontinued 40 MG PO Daily at bedtime May 17, 2023 12:00am June 20, 2023 1:35pmStart: 26-12-2432ggxg 1 tablet by mouth every twenty-four hours Famotidine 40 MG 1 tablet at bedtime Orally Once a day for 30 days Feb, Activehyoscyamine sulfate 0.125 mg sublingual tablet (20 sources)Start: 11-12-2023 End: 53-26-3805Uvulgwfaufs Sulfate 0.125 mg tablet, sublingual Discontinued 0.125 MG SUBLINGUAL 2-4 TIMES PER DAY as needed for abdominal pain, diarrhea 14 1 November 11, 2023 11:00pm December 12, 2023 12:31pmStart: 05-17-2023 End: 36-71-7268daom 1 tablet under the tongue at bedtimeHyoscyamine Sulfate (Levsin/Sl) 0.125 mg tablet, sublingual Discontinued 0.125 MG SUBLINGUAL .COMPLE X May 17, 2023 12:00am July 24, 2023 12:19pm 0.125 mg sublingually before meals and at bedtimeStart: 52-61-6614Dtjumg/SL 0.125 MG 1 tablet under the tongue and allow to dissolve as needed Sublingual before meals and HS for 10 days Mar, Activeketoconazole 20 mg/ml medicated shampoo (14 sources)Azole AntifungalStart: 08-19-2024 End: 32-89-3878Msxiyxumdzpj 2 % shampoo Discontinued 1 APPLIC TOPICAL 3 Times a week 120 30 3 August 18, 2024 11:00pm November 22, 2024 9:28pmmeloxicam 15 mg oral tablet (20 sources)Nonsteroidal Anti-inflammatory DrugStart: 05-17-2023 End: 97-87-5880ydtv 1 tablet by mouth once dailyMeloxicam 15 mg tablet Discontinued 15 MG PO Daily May 17, 2023 12:00am June 20, 2023 1:35pm Start: 76-18-1529jrgz 1 tablet by mouth every twenty-four hoursMeloxicam 15 MG 1 tablet Orally Once a day Aug, Activemetoprolol tartrate 25 mg oral tablet (20 sources)beta-Adrenergic BlockerStart: 08-06-2024 End: 48-89-8705Gqjbxazkxd Tartrate 25 mg tablet Discontinued 12.5 MG PO Twice daily August 06, 2024 12:25pm September 30, 2024 10:50amStart: 08-05-2024 End: 22-67-2792hpyv 0.5 tablet by mouth twice dailymetoprolol tartrate (Lopressor) 25 mg tablet Indications: Essential hypertension Take 0.5 tablets (1 2.5 mg) by mouth 2 times a day. 08/05/2024 09/29/2024 Discontinued (Side effects)Start: 11-29-2023 End: 25-98-5079xbfz 1 tablet by mouth twice dailyMetoprolol Tartrate 50 mg tablet Discontinued 50 MG PO Twice daily 180 90 3 November 29, 2023 2:23pm March 12, 2024 10:21amStart: 10-29-2023 End: 36-69-0560zvht 1 tablet by mouth twice dailyMetoprolol Tartrate 25 mg tablet Discontinued 25 MG PO Twice daily March 12, 2024 12:00am August 06, 2024 12:26pmomeprazole 40 mg delayed release oral capsule (20 sources)Proton Pump InhibitorStart: 10-07-2023 End: 18-61-1061enir 1 capsule by mouth once daily before mealtimeOmeprazole 40 mg capsule,delayed release(DR/EC) Discontinued 0 .ROUTE .COMPLEX 30 2 October 061:27am October 28, 2023 4:26am TAKE ONE CAPSULE BY MOUTH ONCE DAILY IN THE MORNING, 30 MINUTES BEFORE MEALStart: 02-08-2023 End: 12-13-0478mpuy 1 capsule by mouth once daily before mealtimeomeprazole (PriLOSEC) [address] capsule Take 1 capsule (40 mg) by mouth once daily in the morning. Take before meals. 02/08/2023 Activeondansetron 4 mg disintegrating oral tablet (20 sources)Serotonin-3 Receptor AntagonistStart: 05-17-2023 End: 55-02-2584uoof 1 tablet by mouth every six hours as neededOndansetron 4 mg tablet,disintegrating Discontinued 4 MG PO Every 6 hours as needed May 17, 2023 12:00am June 20, 2023 1:35pmStart: 73-55-9053fnpu 1 tablet by mouth every six hours as needed for nauseaOndansetron 4 MG 1Tablet Orally Every 6 hours PRN nausea for 5 days Apr, ActivepredniSONE 10 mg oral tablet (12 sources)Start: 11-04-2024 End: 42-44-9182Eqhxhgzczo 10 mg tablet Discontinued 10 MG PO As Directed 12 6 0 November 03, 2024 11:00pm November 22, 2024 9:28pm 1 tablet PO tid w/ food x 2 days then bid w/ food x 2 days then qd w/ food x 2 days72 hr scopolamine 0.0139 mg/hr transdermal system (14 sources)AnticholinergicStart: 03-23-2024 End: 17-46-7418Aodjfnxkwsj Base 1 mg over 3 days patch 3 day Discontinued 1 PATCH TRANSDERML Every 72 hours 4 7 March 23, 2024 12:00am July 20, 2024 10:17amScopolamine Base 1 mg over 3 days patch 3 day (3 sources)Start: 03-23-2024 End: 94-35-3517Gjrnhiddkfd Base 1 mg over 3 days patch 3 day Discontinued 1 PATCH TRANSDERML Every 72 hours 4 March 23, 2024 1:00am July 20, 2024 11:17amStart: 47-88-8492Lavgmrochoq Base 1 mg over 3 days patch 3 day Active 1 PATCH TRANSDERML Every 72 hours 4 2023 12:00amSod Picosulf-Mag Ox-Citric Ac (20 sources)Start: 07-05-2023 End: 17-39-8244aneb 1 dose by mouth once dailySod Picosulf-Mag Ox-Citric Ac (Clenpiq) 10 mg-3.5 gram- 12 gram/175 mL solution Discontinued 175 MLPO Daily 350 0 0 July 05, 2023 7:42am October 27, 2023 8:40pm Bowel Prep take first dose at 3PM evening before colonoscopy; 2nd dose at 9pm the night before colonoscopyStart: 07-05-2023 End: 98-17-0770kjbl 1 dose by mouth once dailySod Picosulf-Mag Ox-Citric Ac (Clenpiq) 10 mg-3.5 gram- 12 gram/175 mL solution Discontinued 175 MLPO Daily 350 0 0 July 05, 2023 8:42am October 27, 2023 9:40pm Bowel Prep take first dose at 3PM evening before colonoscopy; 2nd dose at 9pm the night before colonoscopyStart: 07-05-2023 End: 61-88-8089pgti 1 dose by mouth once dailySod Picosulf-Mag Ox-Citric Ac (Clenpiq) 10 mg-3.5 gram- 12 gram/175 mL solution Discontinued 175 MLPO Daily 350 0 July 05, 2023 7:42am October 27, 2023 8:40pm take first dose at 3PM evening before colonoscopy; 2nd dose at 9pm the night before colonoscopyStart: 07-05-2023 End: 26-97-8853juik 1 dose by mouth once dailySod Picosulf-Mag Ox-Citric Ac (Clenpiq) 10 mg-3.5 gram- 12 gram/175 mL solution Discontinued 175 MLPO Daily 350 0 July 05, 2023 8:42am October 27, 2023 9:40pm take first dose at 3PM evening before colonoscopy; 2nd dose at 9pm the night before colonoscopyStart: 39-38-0067xczf 1 dose by mouth once dailySod Picosulf-Mag Ox-Citric Ac (Clenpiq) 10 mg-3.5 gram- 12 gram/175 mL solution Active 175 ML PO Daily 350 0 July 05, 2023 8:42am take first dose at 3PM evening before colonoscopy; 2nd dose at 9pmthe night before colonoscopyStart: 06-20-2023 End: 71-47-1371ilsk 1 dose by mouth once dailySod Picosulf-Mag Ox-Citric Ac (Clenpiq) 10 mg-3.5 gram- 12 gram/175 mL solution Discontinued 175 MLPO Daily 350 0 0 June 19, 2023 11:00pm July 05, 2023 7:43am Bowel Prep take first dose at 3PMevening before colonoscopy; 2nd dose at 9pm the night before colonoscopyStart: 06-20-2023 End: 18-85-6944tylx 1 dose by mouth once dailySod Picosulf-Mag Ox-Citric Ac (Clenpiq) 10 mg-3.5 gram- 12 gram/175 mL solution Discontinued 175 MLPO Daily 350 0 0 June 20, 2023 12:00am July 05, 2023 8:43am Bowel Prep take first dose at 3PMevening before colonoscopy; 2nd dose at 9pm the night before colonoscopyStart: 06-20-2023 End: 59-12-7779gdji 1 dose by mouth once dailySod Picosulf-Mag Ox-Citric Ac (Clenpiq) 10 mg-3.5 gram- 12 gram/175 mL solution Discontinued 175 MLPO Daily 350 0 June 19, 2023 11:00pm July 05, 2023 7:43am take first dose at 3PM evening before colonoscopy; 2nd dose at 9pm the night before colonoscopyStart: 06-20-2023 End: 34-02-8598cvdg 1 dose by mouth once dailySod Picosulf-Mag Ox-Citric Ac (Clenpiq) 10 mg-3.5 gram- 12 gram/175 mL solution Discontinued 175 MLPO Daily 350 0 June 20, 2023 12:00am July 05, 2023 8:43am take first dose at 3PM evening before colonoscopy; 2nd dose at 9pm the night before colonoscopyStart: 14-68-4235ruar 1 dose by mouth once dailySod Picosulf-Mag Ox-Citric Ac (Clenpiq) 10 mg-3.5 gram- 12 gram/175 mL solution Active 175 ML PO Daily 350 0 June 20, 2023 12:00am take first dose at 3PM evening before colonoscopy; 2nd dose at 9pm the night before colonoscopyticagrelor 90 mg oral tablet (20 sources)Start: 10-29-2023 End: 11-56-6212bwof 1 tablet by mouth twice dailyTicagrelor (Brilinta) 90 mg Tablet Discontinued 90 MG PO Twice daily 180 90 3 October 28, 2023 11:00pm March 09, 2024 4:37pmtiZANidine 2 mg oral tablet (12 sources)Central alpha-2 Adrenergic AgonistStart: 11-04-2024 End: 52-34-8946lcjw 0.5-1 tablets by mouth once daily at bedtime as needed Tizanidine 2 mg tablet Discontinued 0 PO Daily at bedtime as needed for muscle spasticity 10 10 1 November 03, 2024 11:00pm November 22, 2024 9:28pm 1/2 - 1 tablet orally daily at bedtime PRN; Problems Active Problems Problem ClassificationProblemDateDocumented DateEpisodic/ChronicAbdominal pain (20 sources)Left lower quadrant pain; Translations: [Left lower quadrant pain] EpisodicAcute myocardial infarction (20 sources)Myocardial infarction; Translations: [ST elevation (STEMI) myocardial infarction involving other coronary artery of inferior wall] 51-29-9588HwdpjrkAhxqmx of colon (20 sources)Personal history of other malignant neoplasm of large intestine; Translations: [Personal history ofmalignant neoplasm of large intestine] 02-23-7662RkvetopsErmmqlapoybjr of surgical procedures or medical care (20 sources)Drug therapy finding; Translations: [Unspecified adverse effect of drug or medicament, initial encounter]12-66-1267ErchjqscPgpgekda atherosclerosis and other heart disease (20 sources)Coronary arteriosclerosis; Translations: [Atherosclerotic heart disease of [place] coronary artery without angina pectoris]Onset: 11-07-2023 Resolved: 360854-11-2843SztfaauGeubrzjje of lipid metabolism (20 sources)Hypercholesterolemia; Translations: [Pure hypercholesterolemia, unspecified]Onset: 110617-25-4422InqfswcA Codes: Fall (1 source)Unspecified fall, initial encounterEpisodicEsophageal disorders (20 sources)Gastro-esophageal reflux disease with esophagitis; Translations: [Gastroesophageal reflux disease with esophagitis without hemorrhage]05-17-2023 ChronicEssential hypertension (20 sources)Essential (primary) hypertension; Translations: [Essential hypertension]Onset: 44-64-0013JpvucdeNilco and electrolyte disorders (16 sources)Acute hypokalemia; Translations: [Hypokalemia]76-88-0705Mexqwvak Genitourinary symptoms and ill-defined conditions (20 sources)Dysuria; Translations: [Dysuria]EpisodicHypertension with complications and secondary hypertension (1 source)Hypertensive urgency ; Translations: [Hypertensive urgency]Chronic Menopausal disorders (20 sources)Decreased estrogen level; Translations: [Other primary ovarian failure]ChronicMycoses (20 sources)Tinea corporis; Translations: [Tinea corporis]EpisodicNausea and vomiting (1 source)NauseaEpisodicOther aftercare (1 source)Other shelter (current) drug therapy; Translations: [OTH CORRECTION CURRENT DRUG THERAPY]Onset: 24-37-3088OvkqzlasWjecf and unspecified benign neoplasm (20 sources)Lipoma of lower limb; Translations: [Benign lipomatous neoplasm of skin and subcutaneous tissue of right leg]EpisodicOther and unspecified benign neoplasm (1 source)Benign lipomatous neoplasm of skin and subcutaneous tissue of right leg; Translations: [Lipoma of right lower extremity]EpisodicOther connective tissue disease (1 source)Pain in right armEpisodicOther fractures (20 sources)Compression fracture of lumbar spine; Translations: [Wedge compression fracture of unspecified lumbar vertebra, initial encounter for closed fracture]06-61-7771NgsesqbvJcqpl fractures (6 sources)Compression fracture of thoracic spine; Translations: [Wedge compression fracture of T11-T12 vertebra, initial encounter for closed fracture] 87-49-5650PnwchzyuHpuxl gastrointestinal disorders (20 sources)Irritable bowel syndrome; Translations: [Irritable bowel syndrome without diarrhea]67-25-8692MwxryaaQnmmf gastrointestinal disorders (10 sources)Irritable bowel syndrome without diarrhea; Translations: [Irritable bowel syndrome]ChronicOther gastrointestinal disorders (2 sources)Irritable bowel syndrome characterized by constipation; Translations: [Irritable bowel syndrome with constipation]91-69-7394McfttfyLtlqh gastrointestinal disorders (20 sources)Personal history of other diseases of the digestive system; Translations: [History of small bowel obstruction]EpisodicOther gastrointestinal disorders (6 sources)Diarrhea, unspecified; Translations: [Diarrhea]EpisodicOther gastrointestinal disorders (20 sources)Altered bowel function; Translations: [Change in bowel habit] 96-25-5437NfocetdnTmzrg gastrointestinal disorders (3 sources)Change in bowel habit; Translations: [Other symptoms involving digestive system]31-10-8832HiqulhwgCqars gastrointestinal disorders (20 sources)Change in stool caliber; Translations: [Other fecal abnormalities] 77-77-8549LdtrqbwzJogze gastrointestinal disorders (16 sources)Diarrhea; Translations: [Diarrhea, unspecified]12-50-2879Sozxlzgp Other gastrointestinal disorders (14 sources)Urgent desire for stool; Translations: [Fecal urgency]12-12-2023 EpisodicOther gastrointestinal disorders (2 sources)Fecal urgency; Translations: [Fecal urgency]26-74-3734FcnmjgevOuntt gastrointestinal disorders (13 sources)Swollen abdomen; Translations: [Abdominal distension (gaseous)] 70-13-8130QwnadxgyVbszg gastrointestinal disorders (19 sources)Constipation; Translations: [Constipation, unspecified]11-22-2024 EpisodicOther gastrointestinal disorders (1 source)Constipation, unspecified; Translations: [Constipation, unspecified] Onset: 05-72-0204VyqptejjFmphg gastrointestinal disorders (10 sources)Constipation alternates with diarrhea; Translations: [Other specified symptoms and signs involving the digestive system and abdomen] 85-76-7175QaryyjbfGiuyv gastrointestinal disorders (3 sources)Abdominal distension ; Translations: [Abdominal distension (gaseous)] 16-02-0254PlqnnguhZmykj inflammatory condition of skin (14 sources)Seborrheic dermatitis; Translations: [Seborrheic dermatitis, unspecified]74-12-7002GetaydpdDkfpy lower respiratory disease (14 sources)Solitary pulmonary nodule; Translations: [Solitary pulmonary nodule] Onset: 41-05-2305LmovrmkaIhkfw lower respiratory disease (20 sources)Nodule of lung; Translations: [Solitary pulmonary nodule]07-30-2023 EpisodicComment on above:CT: 1.7cm nodule RLL - ET/CT: no FDG avid nodules - T: 1.9cm nodule RLL - T: 2.6cm RLL mass - T: 1.7cm nodule RLL - ET/CT: no FDG avid nodules - 04/2023,CT: 1.9cm nodule RLL - 06/2023,CT:2.6cm RLL mass - 02/2024,CT: 2cm RLL nodule - 5CT: 1.7cm nodule RLL - ET/CT: no FDG avid nodules - 04/2023,CT: 1.9cm nodule RLL - 06/2023,CT:2.6cm RLL mass - 02/2024,CT: 2cm RLL nodule - 08/2024,CT: right basilar consolidation - 12/2024Other lower respiratory disease (2 sources)Other nonspecific abnormal finding of lung field; Translations: [Other nonspecific abnormal findingof lung field]EpisodicOther lower respiratory disease (19 sources)Lung mass; Translations: [Other nonspecific abnormal finding of lung field]95-17-5051DzrivspcGzyot lower respiratory disease (1 source)Shortness of breath; Translations: [Shortness of breath]11-12-2023 EpisodicOther lower respiratory disease (13 sources)Imaging of lung abnormal ; Translations: [Other nonspecific abnormal finding of lung field]69-69-5014UnvyixmbDyqmj non-traumatic joint disorders (20 sources)Rotator cuff arthropathy of right shoulder; Translations: [Other specific arthropathies, not elsewhere classified, right shoulder]05-21-2023 ChronicOther non-traumatic joint disorders (5 sources)Other specific arthropathies, not elsewhere classified, right shoulder; Translations: [Other specified arthropathy, shoulder region]05-21-2023 ChronicOther non-traumatic joint disorders (20 sources)Derangement of right shoulder joint; Translations: [Other specific joint derangements of right shoulder, not elsewhere classified]18-77-5321Zhybcnk Other non-traumatic joint disorders (5 sources)Pain in right shoulder; Translations: [Pain in joint, shoulder region]98-96-1578HwpmunjxPimlp nutritional; endocrine; and metabolic disorders (14 sources)Overweight in adulthood with body mass index of 25 or more but less than 30; Translations: [Body mass index (BMI) 26.0-26.9, adult]Onset: 11-07-2023 23-92-3770XigitcaqRptou nutritional; endocrine; and metabolic disorders (2 sources)Body mass index (BMI) 27.0-27.9, adult; Translations: [Body mass index (BMI) 27.0-27.9, adult]Onset: 41-44-9919OssyptvsGomtu screening for suspected conditions (not mental disorders or infectious disease) (20 sources)Encounter for screening mammogram for malignant neoplasm of breast; Translations: [Screening status]Onset: 99-72-2722QgcdrbpnWyins skin disorders (20 sources)Abdominal mass; Translations: [Localized swelling, mass and lump, trunk]EpisodicPathological fracture (14 sources)H/O: fragility fracture; Translations: [Personal history of (healed) other pathological fracture]01-87-7679EamfbjheHgwipuxl; pneumothorax; pulmonary collapse (20 sources)Secondary spontaneous pneumothorax; Translations: [Secondary spontaneous pneumothorax]EpisodicResidual codes; unclassified (20 sources)History of colectomy; Translations: [Acquired absence of other specified parts of digestive tract]13-02-7218ZhrsexoaOsdbvkc on above:colon cancerResidual codes; unclassified (2 sources)Acquired absence of other specified parts of digestive tract; Translations: [Other postprocedural status]EpisodicResidual codes; unclassified (5 sources)Localized edema; Translations: [Localized edema]Onset: 11-03-2024 92-89-5904CocefhtlSwurjpgu codes; unclassified (10 sources)Postmenopausal state; Translations: [Asymptomatic menopausal state] 27-11-7938PfzfkimtPuxepmkv codes; unclassified (1 source)Localized edema; Translations: [Localized edema]Onset: 11-03-2024 EpisodicSpondylosis; intervertebral disc disorders; other back problems (20 sources)Lumbar spondylosis; Translations: [Spondylosis without myelopathy or radiculopathy, lumbar region]ChronicComment on above:MRI: C3-4 mod foraminal stenosis, C4-5 mod foraminal and canal stenosis, C5-6 severe right foraminal stenosis, C7-T1 moderate B/L foraminal narrowing - 10/2024MRI: L4-5 severe canal stenosis w/ severe right/mod left foraminal stenosis, subacute fx T11, L1 - 9 /2024Spondylosis; intervertebral disc disorders; other back problems (20 sources)Neck pain; Translations: [Cervicalgia]36-98-3339JoqecarwQyazais and strains (20 sources)Shoulder strain; Translations: [Strain of unspecified muscle, fascia and tendon at shoulder and upper arm level, right arm, initial encounter] 07-87-1759PwwgvilbUmvddcbpp-related disorders (20 sources)Tobacco user; Translations: [Nicotine dependence, cigarettes, in remission]ChronicSuperficial injury; contusion (1 source)Contusion of right upper arm, initial encounterEpisodicUnclassified (7 sources)Office is closed for the holiday. Please call tomorrow on 11/24/24 to schedule a post hospital follow up apt within the next seven days.Unclassified (7 sources)A [facility] screening has identified you as FRAIL or [...] Four Ways to Beat the Frailty Risk [email or web address]-[email or web address]- engh-rr-hejd-the-fra [email or web address] Past or Other Problems Problem ClassificationProblemDateDocumented DateEpisodic/ChronicCoronary atherosclerosis and other heart disease (2 sources)Coronary angioplasty status; Translations: [Coronary angioplasty status]Onset: 03-73-2680KihvmhdjKypojbtfxp disorders (14 sources)Esophageal disorders; Translations: [Gastroesophageal reflux disease with esophagitis without hemorrhage]Malaise and fatigue (13 sources)Other fatigue; Translations: [Fatigue]Onset: 90-30-2004IpzhhveuUvoms lower respiratory disease (20 sources)Dyspnea; Translations: [Shortness of breath]Onset: 11-07-2023 38-09-6128WddxvgjoCbvbq nutritional; endocrine; and metabolic disorders (2 sources)Body mass index (BMI) 26.0-26.9, adult; Translations: [Body mass index (BMI) 26.0-26.9, adult]Onset: 14-78-2603NtwijnpyBfiygbfh codes; unclassified (6 sources)Family history of disorder; Translations: [Family history of ischemic heart disease and other diseases of the circulatory system]Onset: 11-07-2023 Resolved: 23-40-709427416091-39-1255VdvwwhdfLdkiwerg codes; unclassified (1 source)Family history of procedure; Translations: [Family history of ischemic heart disease and other diseases of the circulatory system]Onset: 11-07-2023 Resolved: 161308-35-6518JiateqnmNlytmugoi and history of mental health and substance abuse codes (13 sources)Personal history of nicotine dependence; Translations: [Ex-smoker] Onset: 977679-70-4098RosfckazPvdfebc (7 sources)Near syncope; Translations: [Syncope and collapse]Onset: 12-20-2023 00-65-5025DyrqjcjrEnlkezmzaiwq (20 sources)Acute bilateral low back pain without sciatica; Translations: [Acute bilateral low back pain without sciatica]Unclassified (1 source)Acute right-sided low back pain without sciatica M54.50Unclassified (7 sources)Onset: 11-07-2023 Resolved: Viral infection (20 sources)Disease caused by 2019-nCoV; Translations: [COVID-19] Results Test NameValueInterpretationReference RangeFacilityGlomerular filtration rate (GFR) estimation in non- AmericanOrdered By: Shannon Chan on 12-12-2642UJK/1.73 sq M.predicted among non-blacks MDRD (S/P/Bld) [Vol rate/Area]mL/min/{1.73_m2}>=60 mL/min/1.73m [address] [place] [address] Laboratory - Chemistry and Chemistry - challengeOrdered By: Shannon Chan on 92-05-5664Tigwxoghzq [Mass/Vol]0.81 mg/dL0.55-1.02Prem[facility] HealthGFR/1.73 sq M.predicted MDRD (S/P/Bld) [Vol rate/Area]mL/min/{1.73_m2}>=60 mL/min/1.73m [address] [place], [place] [address]Alanine aminotransferase [Enzymatic activity/volume] in Serum or PlasmaOrdered By: Trinity Obrien on 49-41-8557HYT [Catalytic activity/Vol]21 U/L7-52Premier HealthComment on above:Performed By: #### HEPATIC, BMP, CBC, LIPASE #### [facility] [address] [place] [address] USAAlbumin [Mass/volume] in Serum or Plasma by Bromocresol green (BCG) dye binding methoOrdered By: Trinity Obrien on 67-52-6396Mpzrgfx BCG dye [Mass/Vol]4.0 g/dL3.5-5.7FMetroHealth Main Campus Medical CenterAlkaline phosphatase [Enzymatic activity/volume] in Serum or PlasmaOrdered By: Trinity Obrien on 59-24-3915FJD [Catalytic activity/Vol]147 U/GLdse50-269EaakddlvrPremier HealthComment on above:Performed By: #### HEPATIC, BMP, CBC, LIPASE #### [place] [address] USAAppearance of UrineOrdered By: Trinity Obrien on 11-22-2024 Appearance (U)ClearCleWadsworth-Rittman HospitalComment on above:Order Comment: Name Collection Type:: Clean-Voided MidstreamPerformed By: #### UA #### [place] [address] USAAspartate aminotransferase [Enzymatic activity/volume] in Serum or PlasmaOrdered By: Trinity Obrien on 80-82-4624DKE [Catalytic activity/Vol]19 U/W53-56FzakosnlvPremier HealthComment on above: Performed By: #### HEPATIC, BMP, CBC, LIPASE #### [facility] [address] [place] [address] USABasic Metabolic Panelon 43-94-9187Zedxpkpuay Clr Calc Icrtcitn28.32NoFormerly [facility] Physician GroupComment on above:Performed By: #### HEPATIC, BMP, CBC, LIPASE #### [facility] [address] [place] [address] USAGFR/1.73 sq M.predicted MDRD (S/P/Bld) [Vol rate/Area] mL/min/{1.73_m2}NormalThe [facility] Physician GroupComment on above:Performed By: #### HEPATIC, BMP, CBC, LIPASE #### [facility] [address] [place] [address] USABasophils [#/volume] in Blood by Automated countOrdered By: Trinity Obrien on 99-85-4151Wgiouyuqp (Bld) [#/Vol]0.1 10*3/uL0.0-0.2 [facility] HealthComment on above:Result Comment: PERFORMED BY: [place] [address] PATHOLOGIST CRIMINAL RESEARCH SPECIALIST CANDELARIA JALLOH M.D.Performed By: #### HEPATIC, BMP, CBC, LIPASE #### [place] [address] USABasophils/100 leukocytes in Blood by Automated count Ordered By: Trinity Obrien on 33-34-6782Vpkldrvrg/100 WBC (Bld)1.1 %.Premier HealthComment on above:Performed By: #### HEPATIC, BMP, CBC, LIPASE #### [place] [address] USABilirubin Test strip Ql (U)Ordered By: Trinity Obrien on 61-20-4762Wyntpgkfu Ql (U)NegativeNegativePremier Health Bilirubin.direct [Mass/volume] in Serum or PlasmaOrdered By: Trinity Obrien on 11-42-0152Kzvbbtlqx.direct [Mass/Vol]0.10 mg/dL0.03-0.18FMetroHealth Main Campus Medical CenterBilirubin.total [Mass/volume] in Serum or PlasmaOrdered By: Trinity Obrien on 64-01-3580Avccoownd [Mass/Vol]0.4 mg/dL0.3-1.0Premier HealthComment on above:Performed By: #### HEPATIC, BMP, CBC, LIPASE #### [place] [address] USACalcium [Mass/volume] in Serum or PlasmaOrdered By: Trinity Obrien on 40-63-4839Zxshkag [Mass/Vol]9.2 mg/dL8.6-10.3FMetroHealth Main Campus Medical CenterComment on above:Performed By: #### HEPATIC, BMP, CBC, LIPASE #### [place] [address] USACarbon dioxide, total [Moles/volume] in Serum or Plasma Ordered By: Trinity Obrien on 21-83-9704RG0 [Moles/Vol]24.3 mmol/L21.0-31.0 [facility] HealthComment on above:Performed By: #### HEPATIC, BMP, CBC, LIPASE #### [place] [address] USAChloride [Moles/volume] in Serum or PlasmaOrdered By: Trinity Obrien on 82-47-6335Vvvuzish [Moles/Vol]102 mmol/R62-789HcelhhvwoPremier HealthComment on above:Performed By: #### HEPATIC, BMP, CBC, LIPASE #### [place] [address] USAColor of Urine by AutoOrdered By: rTinity Obrien on 44-65-2078Ywphn (U)ColorlessYellowPremier HealthComment on above:Order Comment: Name Collection Type:: Clean-Voided MidstreamPerformed By: #### UA #### [place] [address] USAComplete Blood Count Auto Diffon 32-01-5600Oioi Corpuscular HGB Conc34.6 g/xOVmlwjq04.0-35.0The [facility] Physician GroupComment on above:Performed By: #### HEPATIC, BMP, CBC, LIPASE #### [place] [address] USAMonocytes/100 WBC (Bld)20.64 %High0.00-20.00The [facility] Hospital Physician GroupComment on above:Result Comment: For adults in ED, MDW > 20.0 may be associated with a higher risk of sepsis during the first 12 hrs of hospital admissionPerformed By: #### HEPATIC, BMP, CBC, LIPASE #### [place] [address] USANRBC%0.1 /100{WBC}Normal0-0.5The [facility]ician Group Comment on above:Performed By: #### HEPATIC, BMP, CBC, LIPASE #### [facility] [address] [place] [address] USAWhite Blood Count7.5 [CFU]/mLNormal3.8-11.6The [facility] Physician GroupComment on above:Performed By: #### HEPATIC, BMP, CBC, LIPASE #### [facility] [address] [place] [address] USACreatinine [Mass/volume] in Serum or PlasmaOrdered By: Trinity Obrien on 01-36-4904Fqrzxhutzw [Mass/Vol]0.89 mg/dL0.60-1.20Premier HealthComment on above:Performed By: #### HEPATIC, BMP, CBC, LIPASE #### [facility] [address] [place] [address] USAEosinophils [#/volume] in Blood by Automated countOrdered By: Trinity Obrien on 98-23-5156Upghfpovjkh (Bld) [#/Vol]0.1 10*3/uL0.0-0.45 [facility] HealthComment on above:Performed By: #### HEPATIC, BMP, CBC, LIPASE #### [facility] [address] [place] [address] USAEosinophils/100 leukocytes in Blood by Automated count Ordered By: Trinity Obrien on 33-14-4724Hednyawhuva/100 WBC (Bld)0.9 %.[facility] HealthComment on above:Performed By: #### HEPATIC, BMP, CBC, LIPASE #### [facility] [address] [place] [address] USAErythrocyte distribution width [Ratio] by Automated count Ordered By: Trinity Obrien on 55-47-3357Xyktppdlxmg distribution width (RBC) [Ratio]13.5 %11.9-15.3FMetroHealth Main Campus Medical CenterComment on above: Performed By: #### HEPATIC, BMP, CBC, LIPASE #### [place] [address] USAErythrocytes [#/volume] in Blood by Automated countOrdered By: Trinity Obrien on 65-32-8250YNQ (Bld) [#/Vol]4.11 10*6/uL3.60-5.00Prem[facility] HealthComment on above:Performed By: #### HEPATIC, BMP, CBC, LIPASE #### [facility] [address] [place] [address] USAGlomerular filtration rate [Volume Rate/Area] in Serum, Plasma or Blood by CreatinineOrdered By: Trinity Obrien on 09-72-4308Yvmwefchie filtration rate [Volume Rate/Area] in Serum, Plasma or Blood by Creatinine> 60.0 mL/MinPremier HealthGlucose [Mass/volume] in Serum or Plasma Ordered By: Trinity Obrien on 36-12-2864Knrkoiu [Mass/Vol]97 mg/lK89-272EykqmntaiPremier HealthComment on above:ADA recommended reference rangeRandom Glucose Reference Range is dependent on time and content of last meal. Glucose of more than 200 mg/dL in a nonstressed, ambulatory subject supports the diagnosisof Diabetes Mellitus.Result Comment: Random Glucose Reference Range is dependent on time and content of last meal. Glucose of more than 200 mg/dL in a nonstressed, ambulatory subject supports the diagnosis of Diabetes Mellitus. ADA recommended reference rangePerformed By: #### HEPATIC, BMP, CBC, LIPASE #### [facility] [address] [place] [id number] USAGlucose [Mass/volume] in Urine by Test stripOrdered By: Trinity Obrien on 56-21-5615Xyuzidd Test strip (U) [Mass/Vol]Normal mg/dLNormal Premier HealthHematocrit [Volume Fraction] of Blood by Automated countOrdered By: Trinity Obrien on 01-13-7778Vnfsdrxyvk (Bld) [Volume fraction]39.0 %34.0-46.4FMetroHealth Main Campus Medical CenterComment on above: Performed By: #### HEPATIC, BMP, CBC, LIPASE #### [facility] [address] [place] [address] USAHemoglobin Test strip Ql (U)Ordered By: Trinity Obrien on 88-85-0349Cfemlmdtvv Ql (U)NegativeAshtabula General Hospital Hemoglobin [Mass/volume] in BloodOrdered By: Trinity Obrien on 11-22-2024 Hemoglobin (Bld) [Mass/Vol]13.5 g/dL11.8-15.4FMetroHealth Main Campus Medical Center Comment on above:Performed By: #### HEPATIC, BMP, CBC, LIPASE #### [place] [address] USAHepatic Panelon 13-27-1368Uorvjbn [Mass/Vol]4.0 g/dLNormal 3.5-5.7The [facility] Physician GroupComment on above:Performed By: #### HEPATIC, BMP, CBC, LIPASE #### [place] [address] USABilirubin,Indirect0.3 mg/dLNormalThe [facility] Physician GroupComment on above:Performed By: #### HEPATIC, BMP, CBC, LIPASE #### [place] [address] USABilirubin.indirect [Mass/Vol]0.10 mg/dLNormal0.03-0.18The [facility] Physician GroupComment on above:Performed By: #### HEPATIC, BMP, CBC, LIPASE #### [place] [address] USAKetones [Presence] in Urine by Test stripOrdered By: Trinity Obrien on 67-68-3915Ksnqtws Ql (U)NegativeAshtabula General HospitalComment on above:Order Comment: Name Collection Type:: Clean-Voided MidstreamPerformed By: #### UA #### [place] [address] USALeukocyte esterase [Presence] in Urine by Test strip Ordered By: Trinity Obrien on 06-87-0382Hbefxovwl esterase Test strip Ql (U) NegativeNegMercy Health West HospitalComment on above:Order Comment: Name Collection Type:: Clean-Voided MidstreamPerformed By: #### UA #### [place] [address] USALeukocytes [#/volume] corrected for nucleated erythrocytes in Blood by Automated counOrdered By: Trinity Obrien on 24-99-8314UTW corrected for nucl RBC Auto (Bld) [#/Vol]7.5 10*3/uL3.8-11.6FMetroHealth Main Campus Medical CenterLeukocytes [#/volume] in Blood by Automated countOrdered By: Trinity Obrien on 74-74-4186MVD (Bld) [#/Vol]7.5 10*3/uL3.8-11.6FMetroHealth Main Campus Medical CenterComment on above:Performed By: #### HEPATIC, BMP, CBC, LIPASE #### [place] [address] USALipase [Enzymatic activity/volume] in Serum or Plasma Ordered By: Trinity Obrien on 34-49-3508Yrygmk [Catalytic activity/Vol]169.0 U/L High11.0-82.0Premier HealthComment on above:Result Comment: PERFORMED BY: [place] [address] PATHOLOGIST CRIMINAL RESEARCH SPECIALIST CANDELARIA JALLOH M.D.Performed By: #### HEPATIC, BMP, CBC, LIPASE #### [place] [address] USALymphocytes [#/volume] in Blood by Automated countOrdered By: Trinity Obrien on 51-52-3238Vyojbjrqxgc (Bld) [#/Vol]1.5 10*3/uL1.00-4.8 [facility] HealthComment on above:Performed By: #### HEPATIC, BMP, CBC, LIPASE #### [facility] [address] [place], [place] [id number] USALymphocytes/100 leukocytes in Blood by Automated count Ordered By: Trinity Obrien on 93-46-1427Qpewktqcqhn/100 WBC (Bld)20.6 %.[facility] HealthComment on above:Performed By: #### HEPATIC, BMP, CBC, LIPASE #### [facility] [address] [place] [address] USAMCH [Entitic mass] by Automated countOrdered By: Trinity Obrien on 74-50-8971XXO (RBC) [Entitic mass]32.8 pg24.7-34.3FMetroHealth Main Campus Medical CenterComment on above:Performed By: #### HEPATIC, BMP, CBC, LIPASE #### [facility] [address] [place] [address] USAHC Auto (RBC) [Mass/Vol]Ordered By: Trinity Obrien on 40-85-6727DIWD (RBC) [Mass/Vol]34.6 g/dL32.0-35.0Premier HealthMCV [Entitic volume] by Automated countOrdered By: Trinity Obrien on 40-51-3386PRJ (RBC) [Entitic vol]94.9 iZ65-572EjwjliubxPremier Health Comment on above:Performed By: #### HEPATIC, BMP, CBC, LIPASE #### [facility] [address] [place] [address] USAMonocyte distribution width [Entitic volume] in Blood by AutomatedOrdered By: Trinity Obrien on 68-23-0930Zynpvszh distribution width Auto (Bld) [Entitic vol]20.64 %High0.00-20.00Premier HealthComment on above:For adults in ED, MDW > 20.0 may be associated with a higher risk of sepsis during the first 12 hrs of hospital admissionMonocytes [#/volume] in Blood by Automated countOrdered By: Trinity Obrien on 08-92-1973Wbxyhnmds (Bld) [#/Vol]1.0 10*3/uLHigh0.0-0.8Premier HealthComment on above: Performed By: #### HEPATIC, BMP, CBC, LIPASE #### [facility] [address] [place] [address] USAMonocytes/100 leukocytes in Blood by Automated count Ordered By: Trinity Obrien on 47-21-7932Lkdkxauta/100 WBC (Bld)13.9 %.[facility] HealthComment on above:Performed By: #### HEPATIC, BMP, CBC, LIPASE #### [facility] [address] [place] [address] USANeutrophils [#/volume] in Blood by Automated countOrdered By: Trinity Obrien on 07-34-4473Qwovrpgxugv (Bld) [#/Vol]4.8 10*3/uL1.8-7.7 [facility] HealthComment on above:Performed By: #### HEPATIC, BMP, CBC, LIPASE #### [facility] [address] [place] [address] USANeutrophils/100 leukocytes in Blood by Automated count Ordered By: Trinity Obrien on 61-34-7908Addktgfjbnz/100 WBC (Bld)63.5 %.[facility] HealthComment on above:Performed By: #### HEPATIC, BMP, CBC, LIPASE #### [facility] [address] [place] [address] USANitrite Test strip Ql (U)Ordered By: Trinity Obrien on 19-26-2365Xapuvou Ql (U)NegativeNegativePremier HealthNo Panel InformationOrdered By: Trinity Obrien on 77-24-3458Ljxzzccm Creatinine Clearance (Chem40.32Premier HealthNucleated erythrocytes [Presence] in Blood by Automated countOrdered By: Trinity Obrien on 11-22-2024 Nucleated RBC Auto Ql (Bld)0.1 /100{WBC}0-0.5FMetroHealth Main Campus Medical Center Platelet mean volume [Entitic volume] in Blood by Automated countOrdered By: Trinity Obrien on 76-27-4588Dwjwqmgz mean volume (Bld) [Entitic vol]7.4 fL 6.3-10.7FMetroHealth Main Campus Medical CenterComment on above:Performed By: #### HEPATIC, BMP, CBC, LIPASE #### [facility] [address] [place] [address] USAPlatelets [#/volume] in Blood by Automated countOrdered By: Trinity Obrien on 75-08-9150Myfvwlovj (Bld) [#/Vol]290 10*3/dS045-567 [facility] HealthComment on above:Performed By: #### HEPATIC, BMP, CBC, LIPASE #### [facility] [address] [place] [address] USAPotassium [Moles/volume] in Serum or PlasmaOrdered By: Trinity Obrien on 10-09-4083Cxsglvlwk [Moles/Vol]3.3 mmol/LLow3.5-5.1FMetroHealth Main Campus Medical CenterComment on above:Performed By: #### HEPATIC, BMP, CBC, LIPASE #### [place] [address] USAProtein Test strip (U) [Mass/Vol]Ordered By: Trinity Obrien on 94-74-9235Wjdpdjh (U) [Mass/Vol]NegativeNegativePremier HealthProtein [Mass/volume] in Serum or PlasmaOrdered By: Trinity Obrien on 49-36-5385Kynggdh [Mass/Vol]6.7 g/dL6.4-8.9[facility] Comment on above:Performed By: #### HEPATIC, BMP, CBC, LIPASE #### [place] [address] USASerum globulin measurement by calculation (mass/volume) Ordered By: Trinity Obrien on 09-63-4677Krdwqtkl (S) [Mass/Vol]2.7 g/dLPremier HealthComment on above:Performed By: #### HEPATIC, BMP, CBC, LIPASE #### [place] [address] USASerum or plasma albumin/globulin mass ratioOrdered By: Trinity Obrien on 04-22-3116Tfsrqoe/Globulin [Mass ratio]1.5 {ratio}Premier HealthComment on above:Performed By: #### HEPATIC, BMP, CBC, LIPASE #### [place] [address] USASerum or plasma anion gap determinationOrdered By: Trinity Obrien on 74-15-5684Oxmpt gap [Moles/Vol]11.0 mmol/L6.0-15.0Premier HealthComment on above:Performed By: #### HEPATIC, BMP, CBC, LIPASE #### [place] [id number] USASerum or plasma non-glucuronidated bilirubin measurement (mass/volume)Ordered By: Trinity Obrien on 89-83-6931Hvlkuuyql.indirect [Mass/Vol]0.3 mg/dLKettering Health Troyodium [Moles/volume] in Serum or PlasmaOrdered By: Trinity Obrien on 59-08-7667Mtmdma [Moles/Vol]134 mmol/LWrf121-673IjcssimbrPremier HealthComment on above:Performed By: #### HEPATIC, BMP, CBC, LIPASE #### [facility] [address] [place] [address] USASpecific gravity Test strip (U) [Rel density]Ordered By: Trinity Obrien on 92-52-7062Dfgwcxzs gravity (U) [Rel density]1.0051.001-1.030 Premier HealthUrea nitrogen [Mass/volume] in Serum or Plasma Ordered By: Trinity Obrien on 20-58-4677Lbll nitrogen [Mass/Vol]10 mg/dL7-25 Premier HealthComment on above:Performed By: #### HEPATIC, BMP, CBC, LIPASE #### [place] [address] USAUrinalysison 10-75-8733Yxhtzemof,UrineNegativeNormal NegativeThe [facility] Physician GroupComment on above:Order Comment: Name Collection Type:: Clean-Voided MidstreamPerformed By: #### UA #### [place] [address] USAGlucose Ql (U)NormalNormalNormalThe [facility] Physician GroupComment on above:Order Comment: Name Collection Type:: Clean-Voided MidstreamPerformed By: #### UA #### [place] [address] USANitrite,UrineNegativeNormalNegativeThe [facility] Physician GroupComment on above:Order Comment: Name Collection Type:: Clean-Voided MidstreamPerformed By: #### UA #### [place] [address] USAOccult Blood,UrineNegativeNormalNegativeThe [facility] Physician GroupComment on above:Order Comment: Name Collection Type:: Clean- Voided MidstreamResult Comment: PERFORMED BY: [place] [address] PATHOLOGIST CRIMINAL RESEARCH SPECIALIST CANDELARIA JALLOH M.D.Performed By: #### UA #### [place] [address] USAProtein,UrineNegativeNormalNegativeThe [facility] Physician GroupComment on above:Order Comment: Name Collection Type:: Clean-Voided MidstreamPerformed By: #### UA #### [place] [address] USASpecificy [place],Urine1.705Grecsj3.001-1.030The [facility] Physician GroupComment on above:Order Comment: Name Collection Type:: Clean- Voided MidstreamPerformed By: #### UA #### [place] [address] USAUrobilinogen,UrineNormalNormalNormalThe [facility] Physician GroupComment on above:Order Comment: Name Collection Type:: Clean- Voided MidstreamPerformed By: #### UA #### [place] [address] USAUrobilinogen Test strip (U) [Mass/Vol]Ordered By: Trinity Obrien on 98-96-1919Ordunggaujgp (U) [Mass/Vol]Normal mg/dLNormalPremier HealthX-ray reportOrdered By: Endy Crowley on 04-18-8918Bbwnm reportKINDRED [place] [address] XRay Report Signed Patient: Genny Barboza MR#: [id number] : 1940 Acct:[id number] Age/Sex: 84 / F ADM Date: 5 Loc: ER Room: Type: [facility] ER Attending Dr: Copies to: Trinity [...] are noted. The bony structures are intact withdegenerative changes noted in the lower lumbar spine [...] Crowley M.D. 11/22/2024 7:06 PM Dictation Location: [place] [address] Transcribed By: [facility] 11/22/241905 Dictated By: Endy Crowley II, MD 11/22/241904 Signed By: 11/22/241905 [facility] Work Phone: XR [facility] [phone] [facility] [place] [address] XRay Report Signed Patient: Genny Barboza MR#: [id number] : 1940 Acct:[id number] Age/Sex: 84 / F ADM Date: 11/22/24 Loc: ER Room: Type: [facility] ER Attending Dr: Copies to: Trinity [...] Crowley M.D. 11/22/2024 7:06 PM Dictation Location: [place] [address] Transcribed By: CODY 11/22/241905 Dictated By: Endy Crowley II, MD 11/22/241904 Signed By: 11/22/241905[facility] GrouppH of Urine by Test stripOrdered By: Trinity Obrien on 38-74-6722gP (U)5.5 [pH]5.0-9.0Premier HealthComment on above:Order Comment: Name Collection Type:: Clean-Voided MidstreamPerformed By: #### UA #### [address]Activated partial thromboplastin time (aPTT) in platelet poor plasma by coagulation aOrdered By: Manish Dejesus on 01-33-6960dFCQ Coag (PPP) [Time]21.9 sLow22.3-36.2FMetroHealth Main Campus Medical CenterBasophils Auto (Bld) [#/Vol]Ordered By: Manish Dejesus on 32-49-7890Pyluarppb (Bld) [#/Vol]0.0 10 3/uL 0.0-0.1FMetroHealth Main Campus Medical CenterBasophils/100 WBC Auto (Bld)Ordered By: Manish Dejesus on 11-80-0575Itspkdzey/100 WBC (Bld)0.2 %0.2-2.0Premier HealthEosinophils/100 WBC Auto (Bld)Ordered By: Manish Dejesus on 44-72-2840Lfyegzuzrxc/100 WBC (Bld)0.1 %Low0.9-7.0Premier HealthErythrocyte distribution width Auto (RBC) [Ratio]Ordered By: Manish Dejesus on 63-23-3967Junldbwpbfs distribution width (RBC) [Ratio]13.9 %11.0-15.0 Premier HealthGlobulin Calc (S) [Mass/Vol]Ordered By: Branden Fraga on 07-26-3338Zslnibqx (S) [Mass/Vol]3.8 g/dLPremier HealthGlomerular filtration rate (GFR) estimation in non- AmericanOrdered By: Branden Fraga on 06-24-5348ACN/1.73 sq M.predicted among non-blacks MDRD (S/P/Bld) [Vol rate/Area]mL/min/{1.73_m2}>=60 mL/min/1.73m 2 Premier HealthHematocrit Auto (Bld) [Volume fraction]Ordered By: Manish Dejesus on 18-16-8015Nrzqpyozqh (Bld) [Volume fraction]41.7 %36.0-48.0 Premier HealthHemoglobin [Mass/volume] in BloodOrdered By: Manish Dejesus on 90-84-4580Rrbszmogqp (Bld) [Mass/Vol]13.8 g/dL12.0-16.0Premier HealthINR in Platelet poor plasma by Coagulation assayOrdered By: Manish Dejesus on 67-00-2353ZAU Coag (PPP) [Relative time]0.97 {INR}Premier HealthComment on above:DESIRED INR:2.0-3.0 CONDITIONS NOT LISTED BELOW2.5-3.5 FOR PROSTHETIC HEART VALVE REPLACEMENT2.5-3.5 RECURRENT THROMBOSISLaboratory - Chemistry and Chemistry - challengeOrdered By: Branden Fraga on 57-25-7151Iuwpkgd [Mass/Vol]3.6 g/dL3.4-5.0Premier HealthALP [Catalytic activity/Vol]133 U/BUtyp24-145WgbuehhvoPremier HealthALT [Catalytic activity/Vol]41 U/T96-00HjfbuxeoePremier Health AST [Catalytic activity/Vol]22 U/I16-17ZktaauoviPremier Health Bilirubin [Mass/Vol]0.5 mg/dL0.2-1.0Premier HealthCalcium [Mass/Vol]9.6 mg/dL8.5-10.1FMetroHealth Main Campus Medical CenterChloride [Moles/Vol] 103 mmol/B88-143IyqlfmsdaPremier HealthCO2 [Moles/Vol]26.7 mmol/L 21.0-32.0Premier HealthCreatinine [Mass/Vol]0.73 mg/dL 0.55-1.02Premier HealthGFR/1.73 sq M.predicted MDRD (S/P/Bld) [Vol rate/Area]mL/min/{1.73_m2}>=60 mL/min/1.73m 2FMetroHealth Main Campus Medical CenterGlucose [Mass/Vol]118 mg/pRDxoi36-144AijiytfbsPremier Health Potassium [Moles/Vol]4.4 mmol/L3.5-5.1FMetroHealth Main Campus Medical CenterProtein [Mass/Vol]7.4 g/dL6.4-8.2FSumma Health Barberton Campusodium [Moles/Vol]140 mmol/I622-219ZdwtzsjvbPremier HealthUrea nitrogen [Mass/Vol]15.0 mg/dL 7.0-18.0Premier HealthUrea nitrogen/Creatinine [Mass ratio] 20.5 mg/mgPremier HealthLaboratory - Chemistry and Chemistry - challengeOrdered By: Manish Dejesus on 61-65-5713Kjnexon [Moles/Vol]1.4 mmol/L 0.4-2.0Premier HealthMagnesium [Mass/Vol]2.2 mg/dL1.8-2.4 Premier HealthBilirubin Ql (U)NegativeNEGATIVEPremier HealthGlucose (U) [Mass/Vol]NegativeNEGATIVEPremier HealthKetones Ql (U)NegativeNEGATIVEPremier HealthpH (U)6.0 [pH]5.0-9.0[facility] Troypecific gravity (U) [Rel density]1.0151.005-1.025Premier HealthUrobilinogen Qn (U)0.2 {Mio'U}/dL0.2-1.0Premier HealthLaboratory - Hematology and Cell countsOrdered By: Manish Dejesus on 29-95-0919Nvndbzmo granulocytes/100 WBC (Bld)0.4 %0.0-0.5FMetroHealth Main Campus Medical CenterLaboratory - Specimen informationOrdered By: Manish Dejesus on 86-98-3231Gkjjqrjupv (U)CLEARCLEAR Premier HealthColor (U)LT. YELLOWYELLOWPremier HealthLaboratory - UrinalysisOrdered By: Manish Dejesus on 11-16-2024 Leukocyte esterase Test strip Ql (U)NegativeNEGThe University of Toledo Medical CenterMucus Ql (Urine sed)NONE SEENNONE SEENPremier Health Nitrite Ql (U)NegativeNEGATIVEPremier HealthProtein Ql (U) NegativeNEG/TRACEPremier HealthLeukocytes [#/volume] corrected for nucleated erythrocytes in Blood by Automated counOrdered By: Manish Dejesus on 34-69-1208MEQ corrected for nucl RBC Auto (Bld) [#/Vol]9.3 10 3/uL 4.0-11.0Premier HealthLymphocytes Auto (Bld) [#/Vol]Ordered By: Manish Dejesus on 82-10-3843Peapskffnyf (Bld) [#/Vol]1.1 10 3/uLLow1.2-3.8 Premier HealthLymphocytes/100 WBC Auto (Bld)Ordered By: Manish Dejesus on 39-15-1770Skuktgeqead/100 WBC (Bld)11.2 %Low20.5-60.0[facility]ermont HospitalH Auto (RBC) [Entitic mass]Ordered By: Manish Dejesus on 13-36-3179YBZ (RBC) [Entitic mass]32.4 pg26.7-34.0Premier HealthMCHC Auto (RBC) [Mass/Vol]Ordered By: Manish Dejesus on 14-94-8870RIRF (RBC) [Mass/Vol]33.1 g/dL29.9-35.2FMetroHealth Main Campus Medical CenterMCV Auto (RBC) [Entitic vol]Ordered By: Manish Dejesus on 62-75-3704MRU (RBC) [Entitic vol]97.9 fL 81.0-99.0Premier HealthMonocytes Auto (Bld) [#/Vol]Ordered By: Manish Anjelica on 83-68-2670Clyqfwvsj (Bld) [#/Vol]0.6 10 3/uL0.3-0.8Premier HealthMonocytes/100 WBC Auto (Bld)Ordered By: Manish Dejesus on 64-29-7246Verpkcinn/100 WBC (Bld)6.7 %1.7-12.0[facility] Neutrophils Auto (Bld) [#/Vol]Ordered By: Manish Dejesus on 67-25-4999Ayqqdvwbjwd (Bld) [#/Vol]7.6 10 3/uLHigh1.4-6.5FMetroHealth Main Campus Medical Center Neutrophils/100 WBC Auto (Bld)Ordered By: Manish Dejesus on 11-16-2024 Neutrophils/100 WBC (Bld)81.4 %High43.0-75.0Premier HealthNo Panel InformationOrdered By: Manish Dejesus on 46-40-3024Dsevsluvfdc # (Auto)0.0 10 3/uL0.0-0.7FMetroHealth Main Campus Medical CenterImmature Granulocyte # (Auto)0.04 10 3/uLHigh0.00-0.03Premier HealthTroponin I High Sensitivity 5.7 pg/mL4.0-51.3FMetroHealth Main Campus Medical CenterComment on above:CUT-OFF POINTS HAVE BEEN ESTABLISHED BASED ON THE FOURTHUNIVERSAL DEFINITION OF MYOCARDIAL INFARCTION. THE UPPERREFERENCE LIMIT (URL) OF TROPONIN, DEFINED THE 99THPERCENTILE OF cTnI DISTRIBUTION IN A REFERENCE POPULATION,HAS BEEN CONFIRMED THE DECISION THRESHOLD FOR MIDIAGNOSIS.99TH PERCENTILE = 51.4 PG/MLNOTE: HIGH-SENSITIVITY TROPONIN ASSAY IS NOT INTENDED TO BEUSED IN ISOLATION BUT SHOULD BE INTERPRETED IN CONJUNCTIONWITH OTHER DIAGNOSTIC AND CLINICAL INFORMATION.Urine BacteriaTRACE #/HPFAbnormalNONE [facility] CenterUrine Occult BloodTRACE-INEGATIVEPremier HealthUrine Other CastsNONE SEEN #/LPFNONE [facility] CenterUrine Other CrystalsNone Seen #/HPFNone [facility] HospitalUrine RBC2-5 #/HPFAbnormal0-2FMetroHealth Main Campus Medical Center Urine Squamous Epithelial CellsRARE #/LPFNONE/RAREPremier HealthUrine WBC0-2 #/HPFAbnormalNONE SEENPremier Health Platelet mean volume Auto (Bld) [Entitic vol]Ordered By: Manish Dejesus on 88-44-1879Tmtmifnh mean volume (Bld) [Entitic vol]9.2 fLLow9.5-13.5FMetroHealth Main Campus Medical CenterPlatelets Auto (Bld) [#/Vol]Ordered By: Manish Dejesus on 49-48-6833Oxbfznsak (Bld) [#/Vol]277 10 3/rC077-128RafuplxinPremier HealthProthrombin time (PT)Ordered By: Manish Dejesus on 15-76-5484CX Coag (PPP) [Time]10.3 s9.0-11.6FMetroHealth Main Campus Medical CenterRBC Auto (Bld) [#/Vol] Ordered By: Manish Dejesus on 51-30-8180VLB (Bld) [#/Vol]4.26 10 6/uL4.20-5.40 [facility] Troyerum or plasma albumin/globulin mass ratio Ordered By: Branden Fraga on 03-07-8067Hkafnik/Globulin [Mass ratio]0.9 {ratio} [facility] Troyerum or plasma anion gap determinationOrdered By: Branden Fraga on 88-29-6806Gmxbh gap [Moles/Vol]14.7 mmol/LFMetroHealth Main Campus Medical CenterBasophils Auto (Bld) [#/Vol]Ordered By: Laurie Mills on 77-65-6885Amjmyirzf (Bld) [#/Vol]0.0 10 3/uL0.0-0.1FMetroHealth Main Campus Medical CenterBasophils/100 WBC Auto (Bld)Ordered By: Laurie Mills on 10-03-2024 Basophils/100 WBC (Bld)0.5 %0.2-2.0[facility] Eosinophils/100 WBC Auto (Bld)Ordered By: Laurie Mills on 10-03-2024 Eosinophils/100 WBC (Bld)1.1 %0.9-7.0[facility] Erythrocyte distribution width Auto (RBC) [Ratio]Ordered By: [facility] on 33-08-5129Qokalaurmnf distribution width (RBC) [Ratio]13.3 %11.0-15.0Premier HealthEstimated glomerular filtration rate (GFR) non- AmericanOrdered By: Laurie Lina on 70-35-0150YWZ/1.73 sq M.predicted among non- blacks MDRD (S/P/Bld) [Vol rate/Area]mL/min/{1.73_m2}>=60 mL/min/1.73m 2 Premier HealthGlobulin Calc (S) [Mass/Vol]Ordered By: [facility] on 88-34-5357Keykejug (S) [Mass/Vol]3.2 g/dLPremier HealthHematocrit Auto (Bld) [Volume fraction]Ordered By: [facility] on 31-44-0420Pmqnynkbma (Bld) [Volume fraction]39.3 %36.0-48.0Premier HealthHemoglobin [Mass/volume] in BloodOrdered By: [facility] on 34-33-8519Zxuqatcgap (Bld) [Mass/Vol]13.3 g/dL12.0-16.0Premier HealthLaboratory - Chemistry and Chemistry - challengeOrdered By: [facility] on 29-42-0623Zkldumjda Ql (U)NegativeNEGATIVEPremier HealthGlucose (U) [Mass/Vol]NegativeNEGATIVEPremier Health Ketones Ql (U)NegativeNEGATIVEPremier HealthpH (U)6.0 [pH] 5.0-9.0[facility] Troypecific gravity (U) [Rel density] <=1.973Nokjqwlz7.005-1.025Premier HealthUrobilinogen Qn (U) 0.2 {Mio'U}/dL0.2-1.0Premier HealthAlbumin [Mass/Vol]3.5 g/dL3.4-5.0Premier HealthALP [Catalytic activity/Vol]109 U/L 46-116Premier HealthALT [Catalytic activity/Vol]30 U/L14-59 [facility] HealthAST [Catalytic activity/Vol]15 U/L15-37 Premier HealthBilirubin [Mass/Vol]0.4 mg/dL0.2-1.0Premier HealthCalcium [Mass/Vol]9.5 mg/dL8.5-10.1FMetroHealth Main Campus Medical CenterChloride [Moles/Vol]104 mmol/M08-517MewtazclyPremier HealthCO2 [Moles/Vol]26.7 mmol/L21.0-32.0[facility] Creatinine [Mass/Vol]0.82 mg/dL0.55-1.02[facility] GFR/1.73 sq M.predicted MDRD (S/P/Bld) [Vol rate/Area]mL/min/{1.73_m2}>=60 mL/min/1.73m 2FMetroHealth Main Campus Medical CenterGlucose [Mass/Vol]112 mg/dLHigh 74-106Premier HealthPotassium [Moles/Vol]3.8 mmol/L3.5-5.1 [facility] HealthProtein [Mass/Vol]6.7 g/dL6.4-8.2FSumma Health Barberton Campusodium [Moles/Vol]140 mmol/C604-643CmsbsoknsPremier HealthUrea nitrogen [Mass/Vol]25.0 mg/dLHigh7.0-18.0Premier HealthUrea nitrogen/Creatinine [Mass ratio]30.5 mg/mgPremier HealthLaboratory - Hematology and Cell countsOrdered By: Laurie Mills on 82-64-7014Gzjbwpck granulocytes/100 WBC (Bld)0.2 %0.0-0.5FMetroHealth Main Campus Medical CenterLaboratory - Specimen informationOrdered By: Laurie Mills on 73-45-8587Cggxfxumfs (U)CLEARCLEARFMetroHealth Main Campus Medical CenterColor (U)LT. YELLOWYELLOWPremier HealthLaboratory - UrinalysisOrdered By: Laurie Mills on 87-05-8716Xozamehle esterase Test strip Ql (U)SMALLAbnormal NEGATIVEPremier HealthMucus Ql (Urine sed)NONE SEENNONE SEEN [facility] CenterNitrite Ql (U)NegativeNEGATIVEPremier HealthProtein Ql (U)NegativeNEG/TRACEPremier HealthLeukocytes [#/volume] corrected for nucleated erythrocytes in Blood by Automated counOrdered By: Laurie Mills on 49-27-6167KAF corrected for nucl RBC Auto (Bld) [#/Vol]6.1 10 3/uL4.0-11.0[facility] Lymphocytes Auto (Bld) [#/Vol]Ordered By: Laurie Mills on 44-24-6119Iyiszkmykpy (Bld) [#/Vol]1.4 10 3/uL1.2-3.8Premier HealthLymphocytes/100 WBC Auto (Bld)Ordered By: Laurie Mills on 68-97-9875Cbkjqkhrxnh/100 WBC (Bld)22.6 %20.5-60.0[facility] Auto (RBC) [Entitic mass]Ordered By: Laurie Mills on 00-23-6453DAK (RBC) [Entitic mass]32.9 pg26.7-34.0Premier HealthMCHC Auto (RBC) [Mass/Vol]Ordered By: Laurie Mills on 34-28-4117ZCWW (RBC) [Mass/Vol]33.8 g/dL29.9-35.2FMetroHealth Main Campus Medical CenterMCV Auto (RBC) [Entitic vol]Ordered By: Laurie Mills on 38-65-4896OKT (RBC) [Entitic vol]97.3 fL81.0-99.0Premier HealthMonocytes Auto (Bld) [#/Vol]Ordered By: Laurie Mills on 49-95-0019Ymiyrjtkr (Bld) [#/Vol]0.7 10 3/uL0.3-0.8Premier HealthMonocytes/100 WBC Auto (Bld)Ordered By: Laurie Mills on 15-47-5852Aycloyfab/100 WBC (Bld)12.1 %High1.7-12.0Premier HealthNeutrophils Auto (Bld) [#/Vol]Ordered By: Laurie Mills on 45-17-8929Npygqpjlsdk (Bld) [#/Vol]3.9 10 3/uL1.4-6.5FMetroHealth Main Campus Medical CenterNeutrophils/100 WBC Auto (Bld)Ordered By: Laurie Mills on 10-03-2024 Neutrophils/100 WBC (Bld)63.5 %43.0-75.0Premier HealthNo Panel InformationOrdered By: Laurie Mills on 52-86-1145Zcaib BacteriaSMALL #/HPF AbnormalNONE [facility] CenterUrine Culture ReflexedYES-Regional Medical CenterUrine Microscopic ReviewCleveland Clinic Medina HospitalUrine Occult BloodTRACE-LNEGATIVEPremier Health Urine Other CastsNONE SEEN #/LPFNONE [facility] CenterUrine Other CrystalsNone Seen #/HPFNone [facility] HospitalUrine RBC 2-5 #/HPFAbnormal0-2FMetroHealth Main Campus Medical CenterUrine Squamous Epithelial CellsRARE #/LPFNONE/RAREPremier HealthUrine WBC5-10 #/HPF AbnormalNONE [facility] CenterEosinophils # (Auto)0.1 10 3/uL0.0-0.7FMetroHealth Main Campus Medical CenterImmature Granulocyte # (Auto)0.01 10 3/uL0.00-0.03Premier HealthTroponin I High Sensitivity5.7 pg/mL4.0-51.3FMetroHealth Main Campus Medical CenterComment on above:CUT-OFF POINTS HAVE BEEN ESTABLISHED BASED ON THE FOURTHUNIVERSAL DEFINITION OF MYOCARDIAL INFARCTION. THE UPPERREFERENCE LIMIT (URL) OF TROPONIN, DEFINED THE 99THPERCENTILE OF cTnI DISTRIBUTION IN A REFERENCE POPULATION,HAS BEEN CONFIRMED THE DECISION THRESHOLD FOR MIDIAGNOSIS.99TH PERCENTILE = 51.4 PG/MLNOTE: HIGH-SENSITIVITY TROPONIN ASSAY IS NOT INTENDED TO BEUSED IN ISOLATION BUT SHOULD BE INTERPRETED IN CONJUNCTIONWITH OTHER DIAGNOSTIC AND CLINICAL INFORMATION.Platelet mean volume Auto (Bld) [Entitic vol]Ordered By: Laurie Mills on 85-47-3064Znbakdff mean volume (Bld) [Entitic vol]9.6 fL9.5-13.5FMetroHealth Main Campus Medical CenterPlatelets Auto (Bld) [#/Vol]Ordered By: Laurie Mills on 47-11-4149Adbwkxror (Bld) [#/Vol]250 10 3/lW540-919PwciqwzkdPremier HealthRBC Auto (Bld) [#/Vol]Ordered By: Laurie Mills on 25-33-7447HPL (Bld) [#/Vol]4.04 10 6/uLLow4.20-5.40[facility] Health Troyerum or plasma albumin/globulin mass ratioOrdered By: Laurie Mills on 15-68-4252Rowvmhb/Globulin [Mass ratio]1.1 {ratio}[facility] Troyerum or plasma anion gap determinationOrdered By: Laurie Mills on 56-81-6446Hrska gap [Moles/Vol]13.1 mmol/LFMetroHealth Main Campus Medical CenterUrine Cultureon 06-60-5453Mctqvcmw identified Cx Nom (U)ORGANISM: Escherichia coli (MDRO) (O:ESCCOLMDRO) [place] Count >100,000 * This is a corrected [...] >8 Tigecycline S <2 Tobramycin S 4 Trimethoprim/Sulfamethoxazole R >2 S = SUSCEPTIBLE I = [...] ALL B-LACTAM DRUGS. PERFORMED BY: [facility] [address] [place] [address] PATHOLOGIST CRIMINAL RESEARCH SPECIALIST CANDELARIA JALLOH M.D.NormalAdventhealth Deltona Er Physician GroupComment on above: Performed By: #### CUU #### [place] [address] USAUrine cultureOrdered By: Laurie Mills on 06-21-5857Xgkcozom identified Cx Nom (U)Escherichia coli (MDRO)AbnormalPremier HealthBasophils Auto (Bld) [#/Vol]on 36-77-2268Jjwnshnhq (Bld) [#/Vol]Automated basophil count0.0-0.1FMetroHealth Main Campus Medical CenterBasophils (Bld) [#/Vol]0.0 10 3/uL0.0-0.1FMetroHealth Main Campus Medical CenterBasophils/100 WBC Auto (Bld)on 47-43-4111Bdpciagci/100 WBC (Bld)Automated basophil %0.2-2.0Premier HealthBasophils/100 WBC (Bld)0.6 %0.2-2.0Premier HealthEosinophils/100 WBC Auto (Bld)on 00-72-7187Ljqruqlfmbu/100 WBC (Bld) Automated eosinophil %0.9-7.0Premier HealthEosinophils/100 WBC (Bld)0.9 %0.9-7.0Premier HealthErythrocyte distribution width Auto (RBC) [Ratio]on 85-68-8134Wqvtxmywrqi distribution width (RBC) [Ratio]Erythrocyte distribution width [Ratio] by Automated count11.0-15.0 Premier HealthErythrocyte distribution width (RBC) [Ratio] 13.9 %11.0-15.0Premier HealthEstimated glomerular filtration rate (GFR) non- Americanon 08-06-1346SBU/1.73 sq M.predicted among non- blacks MDRD (S/P/Bld) [Vol rate/Area]Estimated glomerular filtration rate (GFR) non- AmericanLow>=60 mL/min/1.73m 2FMetroHealth Main Campus Medical Center GFR/1.73 sq M.predicted among non-blacks MDRD (S/P/Bld) [Vol rate/Area]58 mL/min/{1.73_m2}Low>=60 mL/min/1.73m 2FMetroHealth Main Campus Medical Center Hematocrit Auto (Bld) [Volume fraction]on 35-07-3746Acndinkpgm (Bld) [Volume fraction]Hematocrit [Volume Fraction] of Blood by Automated count36.0-48.0 Premier HealthHematocrit (Bld) [Volume fraction]39.6 % 36.0-48.0Premier HealthHemoglobin [Mass/volume] in Bloodon 40-36-9512Xijjdnphsm (Bld) [Mass/Vol]Hemoglobin [Mass/volume] in Blood12.0-16.0 Premier HealthHemoglobin (Bld) [Mass/Vol]13.3 g/dL12.0-16.0 Premier HealthLaboratory - Chemistry and Chemistry - challengeon 66-92-8381Opuglle [Mass/Vol]9.7 mg/dL8.5-10.1FMetroHealth Main Campus Medical CenterChloride [Moles/Vol]107 mmol/Q96-589RxjihneyhPremier HealthCO2 [Moles/Vol]24.2 mmol/L21.0-32.0[facility] Creatinine [Mass/Vol]0.92 mg/dL0.55-1.02[facility] GFR/1.73 sq M.predicted MDRD (S/P/Bld) [Vol rate/Area]mL/min/{1.73_m2}>=60 mL/min/1.73m 2FMetroHealth Main Campus Medical CenterGlucose [Mass/Vol]86 mg/dG80-659 Premier HealthPotassium [Moles/Vol]3.6 mmol/L3.5-5.1FSumma Health Barberton Campusodium [Moles/Vol]140 mmol/Y078-419WpsyhbciwPremier HealthTSH Qn1.563 m[IU]/L0.358-3.740Prem[facility] Urea nitrogen [Mass/Vol]15.0 mg/dL7.0-18.0Premier HealthUrea nitrogen/Creatinine [Mass ratio]16.3 mg/mgPremier Health Laboratory - Hematology and Cell countson 53-62-2882Zleqqaii granulocytes/100 WBC (Bld)0.2 %0.0-0.5FMetroHealth Main Campus Medical CenterLeukocytes [#/volume] corrected for nucleated erythrocytes in Blood by Automated counon 69-11-9169TXM corrected for nucl RBC Auto (Bld) [#/Vol]Leukocytes [#/volume] corrected for nucleated erythrocytes in Blood by Automated coun4.0-11.0Premier HealthWBC corrected for nucl RBC Auto (Bld) [#/Vol]6.3 10 3/uL4.0-11.0 Premier HealthLymphocytes Auto (Bld) [#/Vol]on 08-05-2024 Lymphocytes (Bld) [#/Vol]Lymphocytes [#/volume] in Blood by Automated count 1.2-3.8Premier HealthLymphocytes (Bld) [#/Vol]1.8 10 3/uL 1.2-3.8[facility] HealthLymphocytes/100 WBC Auto (Bld)on 92-34-7708Twwyxntgskm/100 WBC (Bld)Lymphocytes/100 leukocytes in Blood by Automated count20.5-60.0[facility] HealthLymphocytes/100 WBC (Bld)28.0 %20.5-60.0[facility] HealthMCH Auto (RBC) [Entitic mass]on 00-75-1318IRS (RBC) [Entitic mass]MCH [Entitic mass] by Automated count 26.7-34.0[facility] ([facility]BC) [Entitic mass]32.5 pg 26.7-34.0[facility] HospitalHC Auto (RBC) [Mass/Vol]on 06-92-4205ZCFD (RBC) [Mass/Vol]MCHC [Mass/volume] by Automated count29.9-35.2 [facility]HC (RBC) [Mass/Vol]33.6 g/dL29.9-35.2 [facility] HospitalV Auto (RBC) [Entitic vol]on 66-75-2954EHU (RBC) [Entitic vol]MCV [Entitic volume] by Automated count81.0-99.0[facility] HospitalV (RBC) [Entitic vol]96.8 fL81.0-99.0[facility] HealthMonocytes Auto (Bld) [#/Vol]on 39-89-8148Wluiokidp (Bld) [#/Vol] Automated blood monocyte count0.3-0.8[facility] HealthMonocytes (Bld) [#/Vol]0.6 10 3/uL0.3-0.8[facility] HealthMonocytes/100 WBC Auto (Bld)on 51-56-3530Bzvmxqryt/100 WBC (Bld)Automated monocyte %1.7-12.0 [facility] HealthMonocytes/100 WBC (Bld)9.7 %1.7-12.0[facility] HealthNeutrophils Auto (Bld) [#/Vol]on 99-13-2439Fchwquuohsg (Bld) [#/Vol]Neutrophils [#/volume] in Blood by Automated count1.4-6.5FMet[facility] CenterNeutrophils (Bld) [#/Vol]3.8 10 3/uL1.4-6.5FMetroHealth Main Campus Medical CenterNeutrophils/100 WBC Auto (Bld)on 08-05-2024 Neutrophils/100 WBC (Bld)Automated neutrophil %43.0-75.0[facility] HealthNeutrophils/100 WBC (Bld)60.6 %43.0-75.0[facility] HealthNo Panel Informationon 64-22-8168Ckujuqfynqm # (Auto)0.1 10 3/uL0.0-0.7 [facility] HealthImmature Granulocyte # (Auto)0.01 10 3/uL 0.00-0.03[facility] HealthPlatelet mean volume Auto (Bld) [Entitic vol]on 09-09-2488Hgoolnrv mean volume (Bld) [Entitic vol]Platelet mean volume [Entitic volume] in Blood by Automated count9.5-13.5FMet[facility] [facility] CenterPlatelet mean volume (Bld) [Entitic vol]9.8 fL9.5-13.5FMetroHealth Main Campus Medical CenterPlatelets Auto (Bld) [#/Vol]on 21-07-8503Mftdhfrog (Bld) [#/Vol]Platelets [#/volume] in Blood by Automated luysf490-801IychcfoddPremier HealthPlatelets (Bld) [#/Vol]265 10 3/gS055-664ThxdtegyyPremier HealthRBC Auto (Bld) [#/Vol]on 93-46-1240HDP (Bld) [#/Vol]Erythrocytes [#/volume] in Blood by Automated countLow4.20-5.40Premier HealthRBC (Bld) [#/Vol]4.09 10 6/uLLow4.20-5.40[facility] Serum or plasma anion gap determinationon 64-64-3655Goerm gap [Moles/Vol]Serum or plasma anion gap determinationPremier HealthAnion gap [Moles/Vol]12.4 mmol/LFMetroHealth Main Campus Medical CenterBasophils Auto (Bld) [#/Vol]on 31-17-9617Ariqkjwyq (Bld) [#/Vol]Automated basophil count0.0-0.1 Premier HealthBasophils/100 WBC Auto (Bld)on 04-28-2024 Basophils/100 WBC (Bld)Automated basophil %0.2-2.0Premier HealthEosinophils/100 WBC Auto (Bld)on 96-80-2239Fiwfdhfsxed/100 WBC (Bld) Automated eosinophil %Low0.9-7.0Premier HealthErythrocyte distribution width Auto (RBC) [Ratio]on 71-71-9546Omzohzquqxv distribution width (RBC) [Ratio]Erythrocyte distribution width [Ratio] by Automated count11.0-15.0 [facility] HealthHematocrit Auto (Bld) [Volume fraction]on 58-89-7281Vgtdslkosm (Bld) [Volume fraction]Hematocrit [Volume Fraction] of Blood by Automated count36.0-48.0Premier HealthHemoglobin [Mass/volume] in Bloodon 66-62-8526Xhjtnhtedj (Bld) [Mass/Vol]Hemoglobin [Mass/volume] in Blood12.0-16.0Premier HealthLaboratory - Chemistry and Chemistry - challengeon 60-62-6007Pmgefjshf (Vitamin B12) [Mass/Vol]811 pg/zC519-2062GefmztyraPremier HealthComment on above: Performed at: [email or web address] - [facility] [id number] Director: Aime Fabian PhD, Phone: [phone] Qn2.025 m[IU]/L0.358-3.620 [facility] HealthLaboratory - Hematology and Cell countson 03-39-4495Kniceabu granulocytes/100 WBC (Bld)0.1 %0.0-0.5FMetroHealth Main Campus Medical CenterLeukocytes [#/volume] corrected for nucleated erythrocytes in Blood by Automated counon 72-09-9838HKM corrected for nucl RBC Auto (Bld) [#/Vol]Leukocytes [#/volume] corrected for nucleated erythrocytes in Blood by Automated coun4.0-11.0Premier HealthLymphocytes Auto (Bld) [#/Vol]on 70-96-6775Bvoiljshwsp (Bld) [#/Vol]Lymphocytes [#/volume] in Blood by Automated count1.2-3.8Premier HealthLymphocytes/100 WBC Auto (Bld)on 35-05-4182Bnbiqoqolvm/100 WBC (Bld)Lymphocytes/100 leukocytes in Blood by Automated count20.5-60.0[facility] HospitalH Auto (RBC) [Entitic mass]on 47-91-1509TLA (RBC) [Entitic mass]MCH [Entitic mass] by Automated count26.7-34.0[facility] HospitalHC Auto (RBC) [Mass/Vol]on 34-37-8403YWBI (RBC) [Mass/Vol]MCHC [Mass/volume] by Automated count29.9-35.2FMetroHealth Main Campus Medical CenterMCV Auto (RBC) [Entitic vol]on 89-36-1102AUA (RBC) [Entitic vol]MCV [Entitic volume] by Automated count 81.0-99.0Premier HealthMonocytes Auto (Bld) [#/Vol]on 23-12-8747Inqktrexm (Bld) [#/Vol]Automated blood monocyte count0.3-0.8Premier HealthMonocytes/100 WBC Auto (Bld)on 32-63-2490Btstruuor/100 WBC (Bld)Automated monocyte %1.7-12.0[facility] Neutrophils Auto (Bld) [#/Vol]on 14-72-9616Omowucnrazv (Bld) [#/Vol]Neutrophils [#/volume] in Blood by Automated count1.4-6.5FMetroHealth Main Campus Medical Center Neutrophils/100 WBC Auto (Bld)on 02-99-4876Koloruzyscr/100 WBC (Bld)Automated neutrophil %43.0-75.0Premier HealthNo Panel Informationon 32-70-1698Fuublvlgrty # (Auto)0.1 10 3/uL0.0-0.7FMetroHealth Main Campus Medical CenterImmature Granulocyte # (Auto)0.01 10 3/uL0.00-0.03Premier HealthPlatelet mean volume Auto (Bld) [Entitic vol]on 91-33-3389Yvfeqaqp mean volume (Bld) [Entitic vol]Platelet mean volume [Entitic volume] in Blood by Automated count9.5-13.5FMetroHealth Main Campus Medical CenterPlatelets Auto (Bld) [#/Vol]on 38-13-0097Ljglpycjo (Bld) [#/Vol]Platelets [#/volume] in Blood by Automated cwfra463-689QdlzobzxcPremier HealthRBC Auto (Bld) [#/Vol]on 06-87-5089NOQ (Bld) [#/Vol]Erythrocytes [#/volume] in Blood by Automated count Low4.20-5.40[facility] Troyerum or plasma methylmalonate measurement (moles/volume)on 13-55-6775Ranlphkbfmltgm [Moles/Vol]Serum or plasma methylmalonate measurement (moles/volume)0-378[facility] Comment on above:This test was developed and its performance characteristicsdetermined by [employer]. It has not been cleared orapproved by the Food and Drug Administration.Performed at: [address] [id number] Director: Guanaco Russell MD, Phone: [phone] Auto (Bld) [#/Vol]on 71-68-4122Fsclujybj (Bld) [#/Vol] Automated basophil count0.0-0.1FMetroHealth Main Campus Medical CenterBasophils/100 WBC Auto (Bld)on 72-04-4931Mghtgoqfn/100 WBC (Bld)Automated basophil %0.2-2.0 [facility] HealthCholesterol in LDL Calc [Mass/Vol]on 03-12-2024 Cholesterol in LDL [Mass/Vol]Cholesterol in LDL [Mass/volume] in Serum or Plasma by calculationPremier HealthComment on above:<100 mg/dl QPIAXMJ984-068 mg/dl NEAR OR ABOVE XJFGCFU317-608 mg/dl BORDERLINE MSIF093-736 mg/dl HIGH>190 mg/dl VERY HIGHCholesterol in VLDL Calc [Mass/Vol]on 03-12-2024 Cholesterol in VLDL [Mass/Vol]Cholesterol in VLDL [Mass/volume] in Serum or Plasma by calculationPremier HealthEosinophils/100 WBC Auto (Bld)on 82-89-9937Misgijdurph/100 WBC (Bld)Automated eosinophil %Low0.9-7.0 Premier HealthErythrocyte distribution width Auto (RBC) [Ratio]on 09-75-5823Xhyjfgstjku distribution width (RBC) [Ratio]Erythrocyte distribution width [Ratio] by Automated count11.0-15.0Premier HealthEstimated glomerular filtration rate (GFR) non- Americanon 76-14-6023SGZ/1.73 sq M.predicted among non-blacks MDRD (S/P/Bld) [Vol rate/Area]Estimated glomerular filtration rate (GFR) non- AmericanLow>=60 mL/min/1.73m 2FMetroHealth Main Campus Medical CenterGlobulin Calc (S) [Mass/Vol]on 21-80-0769Ispekyhs (S) [Mass/Vol]Serum globulin measurement by calculation (mass/volume)Premier HealthHematocrit Auto (Bld) [Volume fraction]on 50-26-6493Trkuxapovd (Bld) [Volume fraction]Hematocrit [Volume Fraction] of Blood by Automated count36.0-48.0[facility] Hemoglobin [Mass/volume] in Bloodon 95-50-5221Mbxeahdjrl (Bld) [Mass/Vol] Hemoglobin [Mass/volume] in Blood12.0-16.0Premier HealthIgA [Mass/volume] in Serum or Plasmaon 90-85-5994IpF [Mass/Vol]IgA [Mass/volume] in Serum or Ygzhmn94-258ZpwpvvgaxPremier HealthComment on above:Performed at: [email or web address] - [facility] [id number] Director: Aime Fabian PhD, Phone: [phone] - Chemistry and Chemistry - challengeon 60-89-8462Avbduge [Mass/Vol]3.5 g/dL3.4-5.0Premier HealthALP [Catalytic activity/Vol]123 U/SRqic80-206XzvnupynhPremier HealthALT [Catalytic activity/Vol]32 U/J20-86GshqnooqnPremier HealthAST [Catalytic activity/Vol]17 U/J37-74DpunraxzpPremier Health Bilirubin [Mass/Vol]0.6 mg/dL0.2-1.0Premier HealthCalcium [Mass/Vol]9.1 mg/dL8.5-10.1FMetroHealth Main Campus Medical CenterChloride [Moles/Vol] 107 mmol/P80-819MzxbevquvPremier HealthCholesterol [Mass/Vol]199 mg/dL <=200Premier HealthCholesterol in HDL [Mass/Vol]128 mg/dLHigh 40-60Premier HealthComment on above:> or =60 mg/dl - LOW CARDIOVASCULAR RISK<40 mg/dl - HIGH CARDIOVASCULAR RISKCO2 [Moles/Vol]25.5 mmol/L21.0-32.0Premier HealthCreatinine [Mass/Vol]0.97 mg/dL 0.55-1.02Premier HealthGFR/1.73 sq M.predicted MDRD (S/P/Bld) [Vol rate/Area]mL/min/{1.73_m2}>=60 mL/min/1.73m 2FMetroHealth Main Campus Medical CenterGlucose [Mass/Vol]91 mg/tV62-924PynqrjkjqPremier HealthPotassium [Moles/Vol]3.7 mmol/L3.5-5.1FMetroHealth Main Campus Medical CenterProtein [Mass/Vol] 6.8 g/dL6.4-8.2FSumma Health Barberton Campusodium [Moles/Vol]143 mmol/L 136-145Premier HealthTriglyceride [Mass/Vol]65 mg/dL<=150 Premier HealthUrea nitrogen [Mass/Vol]15.0 mg/dL7.0-18.0 Premier HealthUrea nitrogen/Creatinine [Mass ratio]15.5 mg/mg Premier HealthLaboratory - Hematology and Cell countson 37-50-8249Rlimagbx granulocytes/100 WBC (Bld)0.1 %0.0-0.5FMetroHealth Main Campus Medical CenterLeukocytes [#/volume] corrected for nucleated erythrocytes in Blood by Automated counon 76-02-6777OML corrected for nucl RBC Auto (Bld) [#/Vol]Leukocytes [#/volume] corrected for nucleated erythrocytes in Blood by Automated coun4.0-11.0Premier HealthLymphocytes Auto (Bld) [#/Vol]on 46-62-8666Ijtarvjgdsb (Bld) [#/Vol]Lymphocytes [#/volume] in Blood by Automated count1.2-3.8Premier HealthLymphocytes/100 WBC Auto (Bld)on 50-65-1929Hjcfulrohpm/100 WBC (Bld)Lymphocytes/100 leukocytes in Blood by Automated count20.5-60.0[facility] HospitalH Auto (RBC) [Entitic mass]on 23-32-0627NSR (RBC) [Entitic mass]MCH [Entitic mass] by Automated count26.7-34.0Premier HealthMCHC Auto (RBC) [Mass/Vol]on 46-97-1007BQZJ (RBC) [Mass/Vol]MCHC [Mass/volume] by Automated count29.9-35.2FMetroHealth Main Campus Medical CenterMCV Auto (RBC) [Entitic vol]on 15-69-1245WOR (RBC) [Entitic vol]MCV [Entitic volume] by Automated count 81.0-99.0Premier HealthMonocytes Auto (Bld) [#/Vol]on 94-36-5825Ikhlvsgsr (Bld) [#/Vol]Automated blood monocyte count0.3-0.8Premier HealthMonocytes/100 WBC Auto (Bld)on 68-35-7723Yljsebbuy/100 WBC (Bld)Automated monocyte %1.7-12.0[facility] Neutrophils Auto (Bld) [#/Vol]on 29-06-0931Tfsatgvlsza (Bld) [#/Vol]Neutrophils [#/volume] in Blood by Automated count1.4-6.5FMetroHealth Main Campus Medical Center Neutrophils/100 WBC Auto (Bld)on 86-46-9823Ubjaebkiwum/100 WBC (Bld)Automated neutrophil %43.0-75.0Premier HealthNo Panel Informationon 36-42-7860Rlqxjulebl IgA AntibodyNegativeNegativePremier HealthEosinophils # (Auto)0.1 10 3/uL0.0-0.7FMetroHealth Main Campus [facility] Center Immature Granulocyte # (Auto)0.01 10 3/uL0.00-0.03Premier HealthPlatelet mean volume Auto (Bld) [Entitic vol]on 88-45-9310Utxmcwje mean volume (Bld) [Entitic vol]Platelet mean volume [Entitic volume] in Blood by Automated count9.5-13.5FMetroHealth Main Campus Medical CenterPlatelets Auto (Bld) [#/Vol]on 78-40-5809Wxllviooj (Bld) [#/Vol]Platelets [#/volume] in Blood by Automated pqezm491-649TuduqmewdPremier HealthRBC Auto (Bld) [#/Vol]on 49-77-3361IME (Bld) [#/Vol]Erythrocytes [#/volume] in Blood by Automated count Low4.20-5.40[facility] Troyerum gliadin peptide IgA antibody assay (units/volume)on 79-02-6510Komgqxh peptide IgA Qn (S)Serum gliadin peptide IgA antibody assay (units/volume)0-Premier HealthComment on above:Negative 0 - 19 Weak Positive 20 - 30 Moderate to Strong Positive >30 Serum gliadin peptide IgG antibody assay (units/volume)on 11-32-1043Vlhpxrf peptide IgG Qn (S)Serum gliadin peptide IgG antibody assay (units/volume)0 Premier HealthComment on above:Negative 0 - 19 Weak Positive 20 - 30 Moderate to Strong Positive >30Serum or plasma albumin/globulin mass ratioon 39-16-7508Oegqqij/Globulin [Mass ratio]Serum or plasma albumin/globulin mass ratioKettering Health Troyerum or plasma anion gap determinationon 75-03-1692Uvnty gap [Moles/Vol]Serum or plasma anion gap determinationKettering Health Troyerum or plasma total cholesterol/high density lipoprotein (HDL) cholesterol mass henry 03-12-2024 Cholesterol.total/Cholesterol in HDL [Mass ratio]Serum or plasma total cholesterol/high density lipoprotein (HDL) cholesterol mass ratPremier HealthComment on above:3.3 - 4.4 LOW RISK4.4 - 7.1 AVERAGE RISK7.1 - 11.0 MODERATE RISK>11.0 HIGH RISKSerum tissue transglutaminase (tTG) IgA antibody assay (units/volume)on 19-52-8356cDG IgA Qn (S)Serum tissue transglutaminase (tTG) IgA antibody assay (units/volume)0Met[facility] Medical CenterComment on above:Negative 0 - 3 Weak Positive 4 - 10 Positive >10 Tissue Transglutaminase (tTG) has been identified as the endomysial antigen. Studies have demonstr- ated that endomysial IgA antibodies have over 99% specificity for gluten sensitive enteropathy.Serum tissue transglutaminase (tTG) IgG antibody assay (units/volume)on 35-28-3589tWM IgG Qn (S)Serum tissue transglutaminase (tTG) IgG antibody assay (units/volume)Abnormal0-5FMetroHealth Main Campus Medical CenterComment on above:Negative 0 - 5 Weak Positive 6 - 9 Positive >9ECG 12 Leadon 26-61-5565Htjyla sinus rhythm, leftward axis, low voltage, nonspecific ST-T wave abnormality, abnormal ECGCPACSDelaware County Hospital Work Phone: activated partial thromboplastin time (aPTT) in platelet poor plasma by coagulation aOrdered By: PROVIDER TEMP on 15-14-4350nQST Coag (PPP) [Time]30.2 s25.1-36.5FMetroHealth Main Campus Medical CenterComment on above:A hematocrit value greater than 55% may lead to inaccurate results in coagulation testing. Patientshaving hematocrit values >55% require a special collection tube for coagulation studies. Please contact the laboratory at [phone] for redraw instructions.Alanine aminotransferase [Enzymatic activity/volume] in Serum or PlasmaOrdered By: PROVIDER TEMP on 83-56-8396PDL [Catalytic activity/Vol]27 U/L7-52Premier HealthAlbumin [Mass/volume] in Serum or Plasma by Bromocresol green (BCG) dye binding metho Ordered By: PROVIDER TEMP on 40-75-4425Tuezhti BCG dye [Mass/Vol]4.1 g/dL3.5-5.7 Premier HealthAlkaline phosphatase [Enzymatic activity/volume] in Serum or PlasmaOrdered By: PROVIDER TEMP on 97-20-0766HQA [Catalytic activity/Vol]99 U/L63-804CdwxgnvxoPremier HealthAspartate aminotransferase [Enzymatic activity/volume] in Serum or PlasmaOrdered By: PROVIDER TEMP on 73-45-7666EWY [Catalytic activity/Vol]19 U/Q04-16UfldxvmkuPremier HealthBasophils Auto (Bld) [#/Vol]Ordered By: PROVIDER TEMP on 45-01-9683Nyfbmvacz (Bld) [#/Vol]0.1 10*3/uL0.0-0.2FMetroHealth Main Campus Medical CenterBasophils/100 WBC Auto (Bld)Ordered By: PROVIDER TEMP on 11-05-2023 Basophils/100 WBC (Bld)0.8 %.Premier HealthBilirubin.total [Mass/volume] in Serum or PlasmaOrdered By: PROVIDER TEMP on 00-40-6406Ytayptszz [Mass/Vol]0.5 mg/dL0.3-1.0Premier HealthCalcium [Mass/volume] in Serum or PlasmaOrdered By: PROVIDER TEMP on 85-78-5463Gxftgav [Mass/Vol]9.6 mg/dL8.6-10.3FMetroHealth Main Campus Medical CenterCarbon dioxide, total [Moles/volume] in Serum or PlasmaOrdered By: PROVIDER TEMP on 11-05-2023 CO2 [Moles/Vol]22.2 mmol/L21.0-31.0Premier HealthChloride [Moles/volume] in Serum or PlasmaOrdered By: PROVIDER TEMP on 47-71-0482Ibixzouf [Moles/Vol]109 mmol/CXjwr59-426DiipjxdgoPremier HealthCreatine kinase [Enzymatic activity/volume] in Serum or PlasmaOrdered By: PROVIDER TEMP on 84-19-9861SF [Catalytic activity/Vol]66 U/R29-651MqhkyryvePremier HealthCreatinine [Mass/volume] in Serum or PlasmaOrdered By: PROVIDER TEMP on 36-16-2359Icgtzxjyzc [Mass/Vol]0.87 mg/dL0.60-1.20Premier HealthEosinophils Auto (Bld) [#/Vol]Ordered By: PROVIDER TEMP on 11-05-2023 Eosinophils (Bld) [#/Vol]0.1 10*3/uL0.0-0.45[facility] Eosinophils/100 WBC Auto (Bld)Ordered By: PROVIDER TEMP on 11-05-2023 Eosinophils/100 WBC (Bld)0.8 %.Premier HealthErythrocyte distribution width Auto (RBC) [Ratio]Ordered By: PROVIDER TEMP on 11-05-2023 Erythrocyte distribution width (RBC) [Ratio]13.4 %11.9-15.3FMetroHealth Main Campus Medical CenterGlobulin Calc (S) [Mass/Vol]Ordered By: PROVIDER TEMP on 73-61-1436Njlmpazv (S) [Mass/Vol]2.7 g/dLPremier Health Glucose [Mass/volume] in Serum or PlasmaOrdered By: PROVIDER TEMP on 11-05-2023 Glucose [Mass/Vol]104 mg/nNJoqn19-313FffxioavoPremier HealthComment on above:ADA recommended reference rangeRandom Glucose Reference Range is dependent on time and content of last meal. Glucose of more than 200 mg/dL in a nonstressed, ambulatory subject supports the diagnosisof Diabetes Mellitus. Hematocrit Auto (Bld) [Volume fraction]Ordered By: PROVIDER TEM on 11-05-2023 Hematocrit (Bld) [Volume fraction]40.1 %34.0-46.4FMetroHealth Main Campus Medical CenterHemoglobin [Mass/volume] in BloodOrdered By: PROVIDER TEM on 11-05-2023 Hemoglobin (Bld) [Mass/Vol]13.7 g/dL11.8-15.4FMetroHealth Main Campus Medical Center INR in Platelet poor plasma by Coagulation assayOrdered By: PROVIDER [facility] on 70-22-2895PRJ Coag (PPP) [Relative time]0.9 {INR}Premier HealthComment on above:INR Therapeutic Range A) Pre- and Peroperative OAT started two weeks before surgery. NOT HIP SURGERY: 1.5 - 2.5 HIP SURGERY: 2 - 3B) Primary and secondary prevention of venous THROMBOSIS: 2 - 3C) Active venous thrombosis, pulmonary embolismand prevention of recurrent venous thrombosis: 2 - 3D) Prevention of arterial thromboembolismincluding patients with mechanical heart valves: 3 - 4.5Leukocytes [#/volume] corrected for nucleated erythrocytes in Blood by Automated counOrdered By: PROVIDER TEM on 68-68-4842OZE corrected for nucl RBC Auto (Bld) [#/Vol]6.7 10*3/uL3.8-11.6FMetroHealth Main Campus Medical CenterLymphocytes Auto (Bld) [#/Vol]Ordered By: PROVIDER TEMP on 11-05-2023 Lymphocytes (Bld) [#/Vol]1.0 10*3/uL1.00-4.8[facility] Lymphocytes/100 WBC Auto (Bld)Ordered By: PROVIDER TEMP on 11-05-2023 Lymphocytes/100 WBC (Bld)15.0 %.[facility] HospitalH Auto (RBC) [Entitic mass]Ordered By: PROVIDER TEMP on 26-22-0352PTE (RBC) [Entitic mass] 32.6 pg24.7-34.3FMetroHealth Main Campus Medical CenterMCHC Auto (RBC) [Mass/Vol] Ordered By: PROVIDER TEMP on 53-87-3468YBYB (RBC) [Mass/Vol]34.2 g/dL32.0-35.0 Premier HealthMCV Auto (RBC) [Entitic vol]Ordered By: PROVIDER TEMP on 94-31-2775RGK (RBC) [Entitic vol]95.5 jL82-219LgblzmjxbPremier HealthMonocyte distribution width [Entitic volume] in Blood by AutomatedOrdered By: PROVIDER TEMP on 76-57-4404Gfhueyos distribution width Auto (Bld) [Entitic vol]20.41 %High0.00-20.00Premier HealthComment on above:For adults in ED, MDW > 20.0 may be associated with a higher risk of sepsis during the first 12 hrs of hospital admissionMonocytes Auto (Bld) [#/Vol] Ordered By: PROVIDER TEMP on 98-68-7705Ybnkvttra (Bld) [#/Vol]0.6 10*3/uL0.0-0.8 Premier HealthMonocytes/100 WBC Auto (Bld)Ordered By: PROVIDER TEMP on 10-38-5195Wcdwtsdfa/100 WBC (Bld)9.6 %.Premier HealthNatriuretic peptide B [Mass/Vol]Ordered By: PROVIDER TEMP on 62-40-5052Cvajztbmpfl peptide B (Bld) [Mass/Vol]293.0 pg/mLHigh5-100Premier HealthNeutrophils Auto (Bld) [#/Vol]Ordered By: PROVIDER TEMP on 74-85-7019Ydggubvhlon (Bld) [#/Vol]5.0 10*3/uL1.8-7.7FMetroHealth Main Campus Medical CenterNeutrophils/100 WBC Auto (Bld)Ordered By: PROVIDER TEMP on 16-61-3324Wyjcpgjnmwb/100 WBC (Bld)73.8 %.Premier HealthNo Panel InformationOrdered By: PROVIDER TEMP on 50-07-2479Xhrwpnnzp GFR (CKD-EPI)> 60.0 mL/MinPremier HealthPharmacy Creatinine Clearance (Chem 42.53Premier HealthNucleated erythrocytes [Presence] in Blood by Automated countOrdered By: PROVIDER TEMP on 99-59-7010Xybnzmyrv RBC Auto Ql (Bld)0.1 /100{WBC}0-0.5FMetroHealth Main Campus Medical CenterPlatelet mean volume Auto (Bld) [Entitic vol]Ordered By: PROVIDER TEMP on 86-50-2052Bbxowjxs mean volume (Bld) [Entitic vol]8.0 fL6.3-10.7FMetroHealth Main Campus Medical Center Platelets Auto (Bld) [#/Vol]Ordered By: PROVIDER TEMP on 07-67-4023Swphqwbdh (Bld) [#/Vol]314 10*3/gB583-839UaibgtczuPremier HealthPotassium [Moles/volume] in Serum or PlasmaOrdered By: PROVIDER TEMP on 11-05-2023 Potassium [Moles/Vol]4.3 mmol/L3.5-5.1FMetroHealth Main Campus Medical CenterProtein [Mass/volume] in Serum or PlasmaOrdered By: PROVIDER TEMP on 50-22-1639Loawxhy [Mass/Vol]6.8 g/dL6.4-8.9Premier HealthProthrombin time (PT) Ordered By: PROVIDER TEMP on 40-93-9271IM Coag (PPP) [Time]11.0 s9.0-12.9 Premier HealthComment on above:A hematocrit value greater than 55% may lead to inaccurate results in coagulation testing. Patientshaving hematocrit values >55% require a special collection tube for coagulation studies. Please contact the laboratory at [phone] for redraw instructions. RBC Auto (Bld) [#/Vol]Ordered By: PROVIDER TEMP on 65-55-4482NSG (Bld) [#/Vol] 4.19 10*6/uL3.60-5.00[facility] Troyerum or plasma albumin/globulin mass ratioOrdered By: PROVIDER TEMP on 11-05-2023 Albumin/Globulin [Mass ratio]1.5 {ratio}[facility] Troyerum or plasma anion gap determinationOrdered By: PROVIDER TEMP on 36-44-8968Vzatu gap [Moles/Vol]12.1 mmol/L6.0-15.0[facility] Troyodium [Moles/volume] in Serum or PlasmaOrdered By: PROVIDER TEMP on 91-58-1489Qwcgpp [Moles/Vol]139 mmol/A524-225MssjwuaxbPremier HealthTroponin I.cardiac [Mass/volume] in Serum or Plasma by Detection limit <= 0.01 ng/Ordered By: Rona Andres on 24-29-3435Uxwekwhs I.cardiac DL <= 0.01 ng/mL [Mass/Vol]36.1 pg/mLHigh0.0-15.0Premier HealthUrea nitrogen [Mass/volume] in Serum or PlasmaOrdered By: PROVIDER TEMP on 99-01-7580Jcbn nitrogen [Mass/Vol] 20 mg/dL7-25Premier HealthWBC Auto (Bld) [#/Vol]Ordered By: PROVIDER TEMP on 06-14-4414FWY (Bld) [#/Vol]6.7 10*3/uL3.8-11.6FMetroHealth Main Campus Medical CenterBasophils Auto (Bld) [#/Vol]Ordered By: Reji Frausto on 52-26-3423Egfpmbwen (Bld) [#/Vol]0.1 10*3/uL0.0-0.2FMetroHealth Main Campus Medical CenterBasophils/100 WBC Auto (Bld)Ordered By: Reji Frausto on 10-29-2023 Basophils/100 WBC (Bld)0.7 %.Premier HealthCalcium [Mass/volume] in Serum or PlasmaOrdered By: Reji Frausto on 51-98-7432Fodqpep [Mass/Vol]9.3 mg/dL8.6-10.3FMetroHealth Main Campus Medical CenterCarbon dioxide, total [Moles/volume] in Serum or PlasmaOrdered By: Reji Frausto on 53-89-8168QB2 [Moles/Vol]24.3 mmol/L21.0-31.0Premier HealthChloride [Moles/volume] in Serum or PlasmaOrdered By: Reji Frausto on 57-01-8348Sqmqwmlx [Moles/Vol]109 mmol/XTaic55-895GjarrxfmfPremier HealthCreatinine [Mass/volume] in Serum or PlasmaOrdered By: Reji Frausto on 21-62-2779Fglkhfsjcr [Mass/Vol]0.91 mg/dL0.60-1.20Premier HealthEosinophils Auto (Bld) [#/Vol]Ordered By: Reji Frausto on 56-99-7776Mpbinscyypb (Bld) [#/Vol]0.0 10*3/uL0.0-0.45Premier HealthEosinophils/100 WBC Auto (Bld) Ordered By: Reji Frausto on 31-77-2740Iocoysnnyim/100 WBC (Bld)0.6 %.Premier HealthErythrocyte distribution width Auto (RBC) [Ratio]Ordered By: Reji Frausto on 47-01-3828Qbowgqabysu distribution width (RBC) [Ratio]13.8 % 11.9-15.3FMetroHealth Main Campus Medical CenterGlucose [Mass/volume] in Serum or PlasmaOrdered By: Reji Frausto on 84-34-3406Iogtvnb [Mass/Vol]105 mg/xFUqqs30-101 Premier HealthComment on above:ADA recommended reference rangeRandom Glucose Reference Range is dependent on time and content of last meal. Glucose of more than 200 mg/dL in a nonstressed, ambulatory subject supports the diagnosisof Diabetes Mellitus.Hematocrit Auto (Bld) [Volume fraction]Ordered By: Reji Frausto on 21-21-2963Pfojiapytq (Bld) [Volume fraction] 38.2 %34.0-46.4FMetroHealth Main Campus Medical CenterHemoglobin [Mass/volume] in BloodOrdered By: Reji Frausto on 47-34-5902Ixmuotwomf (Bld) [Mass/Vol]12.9 g/dL 11.8-15.4FMetroHealth Main Campus Medical CenterLeukocytes [#/volume] corrected for nucleated erythrocytes in Blood by Automated counOrdered By: Reji Frausto on 72-69-3170FMC corrected for nucl RBC Auto (Bld) [#/Vol]8.1 10*3/uL3.8-11.6 Premier HealthLymphocytes Auto (Bld) [#/Vol]Ordered By: Reji Frausto on 29-09-9293Nqfmiuyoqgn (Bld) [#/Vol]1.3 10*3/uL1.00-4.8[facility] HealthLymphocytes/100 WBC Auto (Bld)Ordered By: Reji Frausto on 37-44-8971Ebuuwutojyf/100 WBC (Bld)15.8 %.[facility] Auto (RBC) [Entitic mass]Ordered By: Reji Frausto on 18-33-0423DOL (RBC) [Entitic mass]32.7 pg24.7-34.3FMetroHealth Main Campus Medical CenterMCHC Auto (RBC) [Mass/Vol] Ordered By: Reji Frausto on 42-67-8069PAET (RBC) [Mass/Vol]33.9 g/dL32.0-35.0 [facility] HealthMCV Auto (RBC) [Entitic vol]Ordered By: Reji Frausto on 24-68-2364UKE (RBC) [Entitic vol]96.5 lF99-794NlweisxpqPremier HealthMonocytes Auto (Bld) [#/Vol]Ordered By: Reji Frausto on 10-29-2023 Monocytes (Bld) [#/Vol]0.8 10*3/uL0.0-0.8[facility] Monocytes/100 WBC Auto (Bld)Ordered By: Reji Frausto on 30-60-5839Vbbxcgokq/100 WBC (Bld)9.4 %.[facility] HealthNeutrophils Auto (Bld) [#/Vol] Ordered By: Reji Frausto on 37-97-4450Zbtrgfdkicc (Bld) [#/Vol]5.9 10*3/uL1.8-7.7 [facility] HealthNeutrophils/100 WBC Auto (Bld)Ordered By: Rjei Frausto on 63-51-2189Xyvwghubczp/100 WBC (Bld)73.5 %.[facility] HealthNo Panel InformationOrdered By: Reji Frausto on 00-81-1087Gsfpahjtt GFR (CKD-EPI)> 60.0 mL/MinPremier HealthPharmacy Creatinine Clearance (Chem41.47Premier HealthNucleated erythrocytes [Presence] in Blood by Automated countOrdered By: Reji Frausto on 10-29-2023 Nucleated RBC Auto Ql (Bld)0.1 /100{WBC}0-0.5FMetroHealth [facility] Platelet mean volume Auto (Bld) [Entitic vol]Ordered By: Reji Frausto on 10-29-2023 Platelet mean volume (Bld) [Entitic vol]8.0 fL6.3-10.7FMetroHealth Main Campus Medical CenterPlatelets Auto (Bld) [#/Vol]Ordered By: Reji Frausto on 90-83-3687Yofmvpgvb (Bld) [#/Vol]261 10*3/bD177-569MnodeibgxPremier HealthPotassium [Moles/volume] in Serum or PlasmaOrdered By: Reji Frausto on 26-18-5388Oomoawahn [Moles/Vol]4.0 mmol/L3.5-5.1FMetroHealth Main Campus Medical CenterRBC Auto (Bld) [#/Vol]Ordered By: Reji Frausto on 87-95-7776URY (Bld) [#/Vol]3.96 10*6/uL3.60-5.00 [facility] Troyerum or plasma anion gap determinationOrdered By: Reji Frausto on 29-76-4073Akjvy gap [Moles/Vol]8.7 mmol/L6.0-15.0[facility] Troyodium [Moles/volume] in Serum or PlasmaOrdered By: Reji Frausto on 51-26-2540Pdjomy [Moles/Vol]138 mmol/B064-241AocelsmkxPremier HealthUrea nitrogen [Mass/volume] in Serum or PlasmaOrdered By: Reji Frausto on 40-01-7796Eknz nitrogen [Mass/Vol]17 mg/dL7-25Premier HealthWBC Auto (Bld) [#/Vol]Ordered By: Reji Frausto on 92-21-8305TFL (Bld) [#/Vol]8.1 10*3/uL3.8-11.6FMetroHealth Main Campus Medical CenterCholesterol [Mass/volume] in Serum or PlasmaOrdered By: Reji Frausto on 85-89-0096Qhvilxrdpuc [Mass/Vol]241 mg/dEXscv178-758WwyeajazxPremier HealthComment on above: Chol less than 200 mg/dl low riskChol 201-239 mg/dl borderline riskChol 240 mg/dl and greater high riskCholesterol in LDL Calc [Mass/Vol]Ordered By: Reji Frausto on 32-82-5809Uufkgkdayso in LDL [Mass/Vol]108 mg/dLHigh0-100Premier HealthComment on above:LDL ATP III CLASSIFICATIONLDL less than 100 mg/dL OptimalLDL 100-129 mg/dL Near or above flzmcixUNA576-840 mg/dL Borderline highLDL 160-189 mg/dL HighLDL greater than 189 mg/dL Very high Cholesterol in VLDL Calc [Mass/Vol]Ordered By: Reji Frausto on 10-28-2023 Cholesterol in VLDL [Mass/Vol]20 mg/dLKettering Health Troyerum or plasma high density lipoprotein (HDL) cholesterol measurementOrdered By: Reji Frausto on 22-33-5306Fclqhjjyzef in HDL [Mass/Vol]112 mg/bHHvwu58-01ShrswonqmPremier HealthComment on above:HDL CHOL ATP-III CLASSIFICATION Cardiovascular RiskHDL > or equal to 60 mg/dL LOWHDL < 40 mg/dL HIGHSerum or plasma total cholesterol/high density lipoprotein (HDL) cholesterol mass rat Ordered By: Reji Frausto on 58-59-6287Mwpgankcuub.total/Cholesterol in HDL [Mass ratio]2.2 {ratio}<5.0Premier HealthTriglyceride [Mass/volume] in Serum or PlasmaOrdered By: Reji Frausto on 30-06-7823Eobmemwzdmvt [Mass/Vol]103 mg/dL0-149Premier HealthComment on above:TRIG ATP III CLASSIFICATIONTRIG less than 150 mg/dL NormalTRIG 150-199 mg/dL Borderline highTRIG 200-500 mg/dL High TRIG greater than 500 mg/dL Very highStandard traceable to the Center for Disease Conrtrol and Prevention (CDC) test method. Troponin I.cardiac [Mass/volume] in Serum or Plasma by Detection limit <= 0.01 ng/Ordered By: Reji Frausto on 91-48-5901Oimfvrcj I.cardiac DL <= 0.01 ng/mL [Mass/Vol]38549.4 pg/mLHigh0.0-15.0Premier HealthComment on above:Critical Result : Called to and read back by: ELLA SCOTT at: 10/28/2023 05:06:20 by:[id number] partial thromboplastin time (aPTT) in platelet poor plasma by coagulation aOrdered By: Doe Álvarez on 62-26-6183vTFA Coag (PPP) [Time]23.1 sLow25.1-36.5FMetroHealth Main Campus Medical CenterComment on above:A hematocrit value greater than 55% may lead to inaccurate results in coagulation testing. Patientshaving hematocrit values >55% require a special collection tube for coagulation studies. Please contact the laboratory at [phone] for redraw instructions.Alanine aminotransferase [Enzymatic activity/volume] in Serum or PlasmaOrdered By: Doe Álvarez on 80-55-7687LZW [Catalytic activity/Vol]36 U/L7-52Premier HealthAlbumin [Mass/volume] in Serum or Plasma by Bromocresol green (BCG) dye binding metho Ordered By: Doe Álvarez on 57-26-9504Wkhoyzv BCG dye [Mass/Vol]4.4 g/dL3.5-5.7 Premier HealthAlkaline phosphatase [Enzymatic activity/volume] in Serum or PlasmaOrdered By: Doe Álvarez on 59-56-3349DQM [Catalytic activity/Vol]86 U/W43-889EarprvvkvPremier HealthAspartate aminotransferase [Enzymatic activity/volume] in Serum or PlasmaOrdered By: Doe Álvarez on 90-90-6989SLL [Catalytic activity/Vol]60 U/YRgan79-61WmdncfziyPremier HealthBasophils Auto (Bld) [#/Vol]Ordered By: Doe Álvarez on 32-25-3192Zhszckmnd (Bld) [#/Vol]0.1 10*3/uL0.0-0.2FMetroHealth Main Campus Medical CenterBasophils/100 WBC Auto (Bld)Ordered By: Doe Álvarez on 10-27-2023 Basophils/100 WBC (Bld)1.3 %.Premier HealthBilirubin.total [Mass/volume] in Serum or PlasmaOrdered By: Doe Álvarez on 65-24-5705Egkfpqljq [Mass/Vol]0.7 mg/dL0.3-1.0Premier HealthCalcium [Mass/volume] in Serum or PlasmaOrdered By: Doe Álvarez on 68-73-7993Vjjpecj [Mass/Vol]10.0 mg/dL8.6-10.3FMetroHealth Main Campus Medical CenterCarbon dioxide, total [Moles/volume] in Serum or PlasmaOrdered By: Doe Álvarez on 14-64-2470SS9 [Moles/Vol]21.0 mmol/L21.0-31.0Premier HealthChloride [Moles/volume] in Serum or PlasmaOrdered By: Doe Álvarez on 07-31-1800Zxewzzfh [Moles/Vol]107 mmol/H05-952OmivojxzePremier HealthCreatine kinase [Enzymatic activity/volume] in Serum or PlasmaOrdered By: Doe Álvarez on 21-71-0880DA [Catalytic activity/Vol]74 U/K03-873JvzdnrvxbPremier HealthCreatinine [Mass/volume] in Serum or PlasmaOrdered By: Doe Álvarez on 96-18-3105Nnjfcopiyh [Mass/Vol]1.06 mg/dL0.60-1.20Premier HealthEosinophils Auto (Bld) [#/Vol]Ordered By: Doe Álvarez on 10-27-2023 Eosinophils (Bld) [#/Vol]0.1 10*3/uL0.0-0.45Premier Health Eosinophils/100 WBC Auto (Bld)Ordered By: Doe Álvarez on 10-27-2023 Eosinophils/100 WBC (Bld)0.7 %.Premier HealthErythrocyte distribution width Auto (RBC) [Ratio]Ordered By: Doe Álvarez on 10-27-2023 Erythrocyte distribution width (RBC) [Ratio]14.0 %11.9-15.3FMetroHealth Main Campus Medical CenterGlobulin Calc (S) [Mass/Vol]Ordered By: Doe Álvarez on 10-27-2023 Globulin (S) [Mass/Vol]2.7 g/dLPremier HealthGlucose [Mass/volume] in Serum or PlasmaOrdered By: Doe Álvarez on 57-69-5684Ghfrnpy [Mass/Vol]166 mg/aNTocl54-289DlnhlmdjbPremier HealthComment on above: ADA recommended reference rangeRandom Glucose Reference Range is dependent on time and content of last meal. Glucose of more than 200 mg/dL in a nonstressed, ambulatory subject supports the diagnosisof Diabetes Mellitus.Hematocrit Auto (Bld) [Volume fraction]Ordered By: Doe Álvarez on 84-53-7953Uoebglphqs (Bld) [Volume fraction]42.6 %34.0-46.4FMetroHealth Main Campus Medical CenterHemoglobin [Mass/volume] in BloodOrdered By: Doe Álvarez on 03-75-3088Knsbggrgjh (Bld) [Mass/Vol]14.5 g/dL11.8-15.4FMetroHealth Main Campus Medical CenterINR in Platelet poor plasma by Coagulation assayOrdered By: Doe Álvarez on 62-73-0579DWP Coag (PPP) [Relative time]0.9 {INR}Premier HealthComment on above: INR Therapeutic Range A) Pre- and Peroperative OAT started two weeks before surgery. NOT HIP SURGERY: 1.5 - 2.5 HIP SURGERY: 2 - 3B) Primary and secondary prevention of venous THROMBOSIS: 2 - 3C) Active venous thrombosis, pulmonary embolismand prevention of recurrent venous thrombosis: 2 - 3D) Prevention of arterial thromboembolismincluding patients with mechanical heart valves: 3 - 4.5 Leukocytes [#/volume] corrected for nucleated erythrocytes in Blood by Automated counOrdered By: Doe Álvarez on 26-96-3382TRX corrected for nucl RBC Auto (Bld) [#/Vol]8.6 10*3/uL3.8-11.6FMetroHealth Main Campus Medical CenterLymphocytes Auto (Bld) [#/Vol]Ordered By: Doe Álvarez on 83-63-4703Nbhsurjyvzq (Bld) [#/Vol]2.2 10*3/uL1.00-4.8Premier HealthLymphocytes/100 WBC Auto (Bld) Ordered By: Doe Álvarez on 46-43-4021Qkymwfrewts/100 WBC (Bld)25.7 %.[facility] HospitalH Auto (RBC) [Entitic mass]Ordered By: Doe Álvarez on 19-70-4515MTP (RBC) [Entitic mass]32.6 pg24.7-34.3FMetroHealth Main Campus Medical CenterMCHC Auto (RBC) [Mass/Vol]Ordered By: Doe Álvarez on 56-61-7089HINR (RBC) [Mass/Vol]34.1 g/dL32.0-35.0Premier HealthMCV Auto (RBC) [Entitic vol]Ordered By: Doe Álvarez on 16-66-5873WJS (RBC) [Entitic vol]95.7 yR04-817YyhysvvzqPremier HealthMonocyte distribution width [Entitic volume] in Blood by AutomatedOrdered By: Doe Álvarez on 16-82-6743Ihszddbs distribution width Auto (Bld) [Entitic vol]20.20 %High0.00-20.00Premier HealthComment on above:For adults in ED, MDW > 20.0 may be associated with a higher risk of sepsis during the first 12 hrs of hospital admissionMonocytes Auto (Bld) [#/Vol]Ordered By: Doe Álvarez on 10-27-2023 Monocytes (Bld) [#/Vol]0.7 10*3/uL0.0-0.8Prem[facility] Health Monocytes/100 WBC Auto (Bld)Ordered By: Doe Álvarez on 31-90-7308Hpozimfrs/100 WBC (Bld)8.7 %.Premier HealthNatriuretic peptide B [Mass/Vol] Ordered By: Doe Álvarez on 20-40-1826Lynokwbiqdy peptide B (Bld) [Mass/Vol] 124.0 pg/mLHigh5-100Premier HealthNeutrophils Auto (Bld) [#/Vol]Ordered By: Doe Álvarez on 95-44-2533Ssbltvukfyv (Bld) [#/Vol]5.5 10*3/uL1.8-7.7FMetroHealth Main Campus Medical CenterNeutrophils/100 WBC Auto (Bld) Ordered By: Doe Álvarez on 87-77-3783Pvymouiblsm/100 WBC (Bld)63.6 %.Premier HealthNo Panel InformationOrdered By: Doe Álvarez on 80-86-1155Hjsunmazo GFR (CKD-EPI)52.124 mL/MinPremier Health Pharmacy Creatinine Clearance (Chem35.04[facility] Nucleated erythrocytes [Presence] in Blood by Automated countOrdered By: Doe Álvarez on 85-33-8979Dopyjzosd RBC Auto Ql (Bld)0.1 /100{WBC}0-0.5FMetroHealth Main Campus Medical CenterPlatelet mean volume Auto (Bld) [Entitic vol]Ordered By: Doe Álvarez on 95-69-0891Gkgowiml mean volume (Bld) [Entitic vol]7.7 fL6.3-10.7 Premier HealthPlatelets Auto (Bld) [#/Vol]Ordered By: Doe Álvarez on 90-32-5177Foifnqaej (Bld) [#/Vol]294 10*3/oI527-885VhaeqsoahPremier HealthPotassium [Moles/volume] in Serum or PlasmaOrdered By: Doe Álvarez on 95-09-3693Wgxduleiv [Moles/Vol]3.7 mmol/L3.5-5.1FMetroHealth Main Campus Medical CenterProtein [Mass/volume] in Serum or PlasmaOrdered By: Doe Álvarez on 10-09-6784Vqpzqre [Mass/Vol]7.1 g/dL6.4-8.9[facility] Prothrombin time (PT)Ordered By: Doe Álvarez on 80-56-4005MP Coag (PPP) [Time] 10.7 s9.0-12.9Premier HealthComment on above:A hematocrit value greater than 55% may lead to inaccurate results in coagulation testing. Patientshaving hematocrit values >55% require a special collection tube for coagulation studies. Please contact the laboratory at [phone] for redraw instructions.RBC Auto (Bld) [#/Vol]Ordered By: Doe Álvarez on 10-21-3110MKO (Bld) [#/Vol]4.45 10*6/uL3.60-5.00[facility] Troyerum or plasma albumin/globulin mass ratioOrdered By: Doe Álvarez on 10-27-2023 Albumin/Globulin [Mass ratio]1.6 {ratio}[facility]erum or plasma anion gap determinationOrdered By: Doe Álvarez on 69-36-1102Gsnhx gap [Moles/Vol]13.7 mmol/L6.0-15.0[facility] Troyodium [Moles/volume] in Serum or PlasmaOrdered By: Doe Álvarez on 16-08-2458Opwmwi [Moles/Vol]138 mmol/J815-914TzxnqzwolPremier HealthTroponin I.cardiac [Mass/volume] in Serum or Plasma by Detection limit <= 0.01 ng/Ordered By: Doe Álvarez on 33-01-1831Eeqjfsde I.cardiac DL <= 0.01 ng/mL [Mass/Vol]10.2 pg/mL0.0-15.0Premier HealthUrea nitrogen [Mass/volume] in Serum or PlasmaOrdered By: Doe Álvarez on 37-48-8782Cgqv nitrogen [Mass/Vol]17 mg/dL7-25Premier HealthWBC Auto (Bld) [#/Vol]Ordered By: Doe Álvarez on 39-37-3482DPV (Bld) [#/Vol]8.6 10*3/uL3.8-11.6FMetroHealth Main Campus Medical CenterGlucose Glucometer (BldC) [Mass/Vol]Ordered By: Branden Fraga on 57-09-7148Rymrkln [Mass/Vol]93 mg/dLPremier HealthComment on above:Random Glucose Reference Range is dependent on time and content of last meal. Glucose of more than 200 mg/dL in a nonstressed, ambulatory subject supports the diagnosis of Diabetes Mellitus.Urinalysis - DIPSTICKon 08-24-2022 Appearance (U)clearInnaVirVax Other Bilirubin Ql (U)NegativeInnaVirVax Other Color (U)light yellowNosaint louis university health [facility] Qwilt Other Glucose Ql (U)[facility] Qwilt Other Hemoglobin Ql (U)[facility] Qwilt Other Ketones Ql (U)[facility] Qwilt Other Leukocyte esterase Test strip Ql (U)[facility] Qwilt Other Nitrite Ql (U)[facility] Qwilt Other pH (U)5.0 [pH][place] Qwilt Other Protein Ql (U)[facility]SalemN[facility]ino Qwilt Other Specific gravity (U) [Rel density]1.005Nosaint louis university [facility] Qwilt Other Urobilinogen (U) [Mass/Vol]0.5 mg/dLRichmond Qwilt Other Urinalysis - DIPSTICKRichmond Qwilt Other CBC AUTO DIFFon 94-12-0005XXPC #0.0 103/ulNormal 0.0-0.1The [facility] TroyComment on above:Performed By: #### CBC #### [facility] [address] [address] [address] Arlyn ChanBasophils/100 WBC (Bld)0.6 %Normal0.2-2.0The [facility] Comment on above:Performed By: #### CBC #### [facility] [address] [address] [address] Arlyn Fletcher #0.1 103/ulNormal0.0-0.7The [facility] TroyComment on above: Performed By: #### CBC #### [facility] [address] [address] [address] Arlyn Mauriceosinophils/100 WBC (Bld)1.1 %Normal0.9-7.0The [facility] Comment on above:Performed By: #### CBC #### [facility] [address] [place] [address] Dr. Arlyn Mauricerythrocyte distribution width (RBC) [Ratio]13.6 %Dhtjmw00.0-15.0 [facility] Medical CenterComment on above:Performed By: #### CBC #### [facility] [address] [place] [address] Dr. Arlyn ChanHematocrit (Bld) [Volume fraction]44.3 %Hdluoo49.0-48.0The [facility] TroyComment on above:Performed By: #### CBC #### [facility] [address] [place] [address] Dr. Arlyn ChanHemoglobin (Bld) [Mass/Vol]14.8 g/oWKuvcqk21.0-16.0The [facility] TroyComment on above:Performed By: #### CBC #### [facility] [address] [place] [address] Dr. Arlyn Adhikari #0.00 10e3/ulNormal0.00-0.03The [facility] TroyComment on above:Performed By: #### CBC #### [facility] [address] [place] [address] Dr. Arlyn Adhikari %0.0 %Normal0.0-0.5The [facility] TroyComment on above: Performed By: #### CBC #### [facility] [address] [place] [address] Dr. Arlyn Marinelli #1.7 103/ulNormal1.2-3.8The [facility] TroyComment on above:Performed By: #### CBC #### [facility] [address] [place] [address] Dr. Arlyn Rileyhocytes/100 WBC (Bld)31.1 %Wqlhxv52.5-60.0[facility] Medical CenterComment on above:Performed By: #### CBC #### [facility] [address] [place] [address] Dr. Yilan ChangMANUAL DIFF REQNONormalThe [facility] TroyComment on above: Performed By: #### CBC #### [facility] [address] [place] [address] Dr. Arlyn Jack (RBC) [Entitic mass]31.9 zfBolqya46.7-34.0The [facility] TroyComment on above:Performed By: #### CBC #### [facility] [address] [place] [address] Dr. Arlyn Jack (RBC) [Mass/Vol]33.4 g/bITbpqfb89.9-35.2The [facility] HospitalComment on above:Performed By: #### CBC #### [facility] [address] [place] [address] Dr. Arlyn Jack (RBC) [Entitic vol]95.5 cLHliiru15.0-99.0The [facility] TroyComment on above:Performed By: #### CBC #### [facility] [address] [place] [address] Dr. Arlyn Garvey #0.5 103/ulNormal0.3-0.8The [facility] TroyComment on above:Performed By: #### CBC #### [facility] [address] [place] [address] Dr. Arlyn Medinaocytes/100 WBC (Bld)8.8 %Normal1.7-12.0The [facility] Comment on above:Performed By: #### CBC #### [facility] [address] [place] [address] Dr. Arlyn Acosta #3.1 103/ulNormal1.4-6.5The [facility] TroyComment on above:Performed By: #### CBC #### [facility] [address] [place] [address] Dr. Arlyn Cervantesutrophils/100 WBC (Bld)58.4 %Skdzsm86.0-75.0The [facility] TroyComment on above:Performed By: #### CBC #### [facility] [address] [place] [address] Dr. Yilan ChangPlatelet mean volume (Bld) [Entitic vol]10.0 fLNormal9.5-13.5The [facility] TroyComment on above:Performed By: #### CBC #### [facility] [address] [place] [address] Dr. Arlyn ChanPLT242 103/okMtowfv982-189Gxr [facility] TroyComment on above: Performed By: #### CBC #### [facility] [address] [place] [address] Dr. Arlyn ChanRBC4.64 106/ulNormal4.20-5.40The [facility] TroyComment on above:Performed By: #### CBC #### [facility] [address] [place] [address] Dr. Arlyn ChanWBC5.4 103/ulNormal4.0-11.0The [facility] TroyComment on above: Performed By: #### CBC #### [facility] [address] [place] [address] Dr. Arlyn ChanPROF CHEM 8 (BAS METB)on 44-37-4975Fpqja gap [Moles/Vol]13.9 mmol/LNormalThe [facility] TroyComment on above:Performed By: #### HSTROPAfshin, BMP #### [facility] [address] [place] [address] Dr. Arlyn ChanCalcium [Mass/Vol]9.4 mg/dLNormal8.5-10.1The [facility] Comment on above:Performed By: #### HSTROPN, BMP #### [facility] [address] [place] [address] Dr. Arlyn ChanChloride [Moles/Vol]105 mmol/KHlrvgz29-201Qzc [facility] Comment on above:Performed By: #### HSTROPN, BMP #### [facility] [address] [place] [address] Dr. Arlyn ChanCO2 [Moles/Vol]24.3 mmol/HWtrxqp80.0-32.0The [facility] Comment on above:Performed By: #### HSTROPN, BMP #### [facility] [address] [address] [address] Arlyn ChanCreatinine [Mass/Vol]0.76 mg/dLNormal0.55-1.02The [facility] TroyComment on above:Performed By: #### HSTROPN, BMP #### [facility] [address] [address] [address] Arlyn MauriceGFR-AF BHUTANESE>60Normal>=60The [facility] TroyComment on above:Performed By: #### HSTROPN, BMP #### [facility] [address] [address] [address] Arlyn MauriceGFR-NON AF BHUTANESE>60Normal>=60The [facility] TroyComment on above:Performed By: #### HSTROPN, BMP #### [facility] [address] [place] [address] Dr. Arlyn ChanGlucose [Mass/Vol]96 mg/qNCdosma86-412Lpv [facility] Comment on above:Performed By: #### HSTROPN, BMP #### [facility] [address] [address] [address] Arlyn ChanPotassium [Moles/Vol]4.2 mmol/LNormal3.5-5.1The [facility] Comment on above:Performed By: #### HSTROPN, BMP #### [facility] [address] [address] [address] Arlyn ChanSodium [Moles/Vol]139 mmol/ZGzcvan533-338Apx [facility] Comment on above:Performed By: #### HSTROPN, BMP #### [facility] [address] [address] [address] Arlyn ChanUrea nitrogen [Mass/Vol]21.0 mg/dLCritically high7.0-18.0The [facility] TroyComment on above:Performed By: #### HSTROPN, BMP #### [facility] [address] [address] [address] Arlyn ChanUrea nitrogen/Creatinine [Mass ratio]27.6 mg/mgNormalThe Julius HospitalComment on above:Performed By: #### HSTROPN, BMP #### [facility] [address] [address] [address] Arlyn Booth Noteson 01-58-3705Fehgnosrdwwnc Authentication Interface Message TextEMERGENCY TRIAGE, TREAT AND TRANSPORT (ET3) DOCUMENTATION OF TELEHEALTH VISIT Date / Time: 05/21/2022944 Name: Genny Barboza : 1940 SSN: (Not on file) EMS Agency: [facility] [x] Verbal consent obtained [] [...] the typically is not available at a [place] primary care physician's office. Patient declined using ambulance go to the ER, and her daughter who was present on scene will drive her the 4 minutes will take to get to the [place] [facility]. I advised her to call 911 [...] Disposition Reported: Same ET3 Encounter Completed by: Andrew Carreon [facility] TROPONIN, HIGH SENSITIVITYon 94-10-8222JZSHPD1.9 pg/mLNormal4.0-51.3The [facility] TroyComment on above:Result Comment: CUT-OFF POINTS HAVE BEEN ESTABLISHED BASED ON THE FOURTH UNIVERSAL DEFINITIONS OF MYOCARDIAL INFARCTION. THE UPPER REFERENCE LIMIT (URL) OF TROPONIN, DEFINED THE 99TH PERCENTILE OF cTnI DISTRIBUTION IN A REFERENCE POPULATION, HAS BEEN CONFIRMED THE DECISION THRESHOLD FOR GA DIAGNOSIS.Performed By: #### HSTROPN, BMP #### [facility] [address] [address] [address] Arlyn ChanMG MAMM SCREEN 3D VINNY CADon 54-36-1338FL MAMM SCREEN 3D VINNY CAD Patient: GENNY BARBOZA Exam Date: 02/08/2022 : 1940 Gender:F Ordering : DR BRANDEN FRAGA D.O. Admission #: [id number] Family : Order #: [id number] CLICK HERE TO VIEW EXAM RADIOLOGY REPORT [...] bowel resection Family Cancers None LOCATION: [facility] BREAST COMPOSITION: Scattered areas fibroglandular density. FINDINGS: [...] by: Kalpana Addison MD on 02/08/2022 at 14:06[facility]CT [facility] WO CONon [id number] CHEST WO CONEXAMINATION: CT CHEST WO CON HISTORY: Solitary nodule [...] Electronically authenticated by: JOAQUIN SOTO Date: 2021-08-11 17:29[facility] Vital Signs Date TimeVital SignValuePerforming RnppxtoslIvddjhyl87-48-3498 11:08-0500Body yppcbd035.9 cmVanessa Dave APRN-HAMILTON Work Phone: [facility]11-05-2025 11:08-0500 Body mass index (BMI) [Ratio]27.02 kg/p5Pzygg Dave PATIENT COORDINATOR-[employer] Work Phone: [facility]11-05-2025 11:08-0500 Body audrsf84.86 kgVanessa Dave PATIENT COORDINATOR-[employer] Work Phone: [facility]11-05-2025 11:08-0500 Diastolic blood vvbyuzyd89 mm[Hg]Vanessa Dave PATIENT COORDINATOR-[employer] Work Phone: [facility]11-05-2025 11:08-0500 Heart rate60 /Kenneth Dave PATIENT COORDINATOR-[employer] Work Phone: [facility]11-05-2025 11:08-0500 Systolic blood czuceush743 mm[Hg]Vanessa Dave PATIENT COORDINATOR-[employer] Work Phone: [facility]11-05-2025 10:12-0500 Body yrvxah977.94 cmBenjamin Ball DO Work Phone: [phone]11-05-2025 10:12-0500 Body mass index (BMI) [Ratio]26.4 kg/i2Xpuwzjmv Ball DO Work Phone: [phone] [place], [place] 5807911-05-2025 10:12-0500 Body ikewph82.5 kgBenjamin Ball DO Work Phone: [phone]11-05-2025 10:12-0500 Diastolic blood xiwfypow97 mm[Hg]Branden Ball DO Work Phone: [phone]11-05-2025 10:12-0500 Heart rate66 /minBenjamin Ball DO Work Phone: [phone]11-05-2025 10:12-0500 Systolic blood axmxlcty497 mm[Hg]Branden Ball DO Work Phone: [phone] [place], [place] 5807910-21-2025 11:22-0400 Body skipyf366.94 cmBenjamin Ball DO Work Phone: [phone]10-21-2025 11:22-0400 Body mass index (BMI) [Ratio]26.4 kg/l1Loujqdly Ball DO Work Phone: [phone] [place], [place] 0264310-21-2025 11:22-0400 Body afyoxz61.5 kgBenjamin Ball DO Work Phone: [phone] [place], [place] 0264310-07-2025 11:27-0400 Body zfuuju34 kgBenjamin Ball DO Work Phone: [phone] [place], [place] 0264309-11-2025 11:45-0400 Body .94 cmBenjamin Ball DO Work Phone: [phone] [place], [place] 0264309-11-2025 11:45-0400 Body mass index (BMI) [Ratio]26.4 kg/q5Bfglkafz Ball DO Work Phone: [phone] [place], [place] 0264309-11-2025 11:45-0400 Body sutfzi27.55 kgBenjamin Ball DO Work Phone: [phone] [place], [place] 0264309-11-2025 11:45-0400 Diastolic blood dpegvotg12 mm[Hg]Branden Ball DO Work Phone: [phone] [place], [place] 0264309-11-2025 11:45-0400 Heart rate61 /minBenjamin Ball DO Work Phone: [phone] [place], [place] 0264309-11-2025 11:45-0400 Respiratory rate12 /minBenjamin Ball DO Work Phone: [phone] [place], [place] 0264309-11-2025 11:45-0400 Systolic blood vqnojpmm810 mm[Hg]Branden Ball DO Work Phone: [phone] [place], [place] 0264309-09-2025 13:27-0400 Body yhuhni094.94 cmBenjamin Ball DO Work Phone: [phone] [place], [place] 0264309-09-2025 13:27-0400 Body mass index (BMI) [Ratio]26 kg/b4Qapnisyd Ball DO Work Phone: 1(419)[address] [place], [place] 0264309-09-2025 13:27-0400 Body .59 kgBenjamin Ball DO Work Phone: [phone])[address]09-09-2025 13:27-0400 Diastolic blood hwfddweu37 mm[Hg]Branden Ball DO Work Phone: [address] [place], [place] 0264309-09-2025 13:27-0400 Heart rate64 /minBenjamin Ball DO Work Phone: 1419)[address] [place], [place] 0264309-09-2025 13:27-0400 Systolic blood qzfwbrry563 mm[Hg]Branden Ball DO Work Phone: [address] [place], [place] 0264309-01-2025 12:00-0400 Diastolic blood mm[Hg]Branden Ball DO Work Phone: 1(392)[address] [place], [place] 0264309-01-2025 12:00-0400 Heart rate71 /minBenjamin Ball DO Work Phone: 1419)[address] [place], [place] 0264309-01-2025 12:00-0400 Respiratory rate18 /minBenjamin Ball DO Work Phone: 1(597)[address] [place], [place] 0264309-01-2025 12:00-0400 SaO2% (BldA) [Mass fraction]100 %Branden Ball DO Work Phone: 1(872)[address] [place], [place] 0264309-01-2025 12:00-0400 Systolic blood ouxmndlv422 mm[Hg]Branden Ball DO Work Phone: 1(186)[address] [place], [place] 0264309-01-2025 09:00-0400 Body zcvtilrscqo56 [degF]Branden Ball DO Work Phone: [address] [place], [place] 0264309-01-2025 04:26-0400 Body dsrqor22.8 kgBenjamin Ball DO Work Phone: 1419)[address] [place], [place] 0264308-31-2025 23:10-0400 Body ulyrtb539.94 cmBenjamin Ball DO Work Phone: [address] [place], [place] 0264308-31-2025 23:10-0400 Body [degF]Branden Ball DO Work Phone: 1(419)[address] [place], [place] 0264308-31-2025 23:10-0400 Body .4 kgBenjamin Ball DO Work Phone: 1419)[address] [place], [place] 0264308-31-2025 23:10-0400 Diastolic blood lewvsgxn06 mm[Hg]Branden Ball DO Work Phone: 1(419)[address] [place], [place] 0264308-31-2025 23:10-0400 Heart rate64 /minBenjamin Ball DO Work Phone: 1(419)[address] [place], [place] 0264308-31-2025 23:10-0400 Respiratory rate18 /minBenjamin Ball DO Work Phone: 1419)[address] [place], [place] 0264308-31-2025 23:10-0400 SaO2% (BldA) [Mass fraction]98 %Branden Ball DO Work Phone: 1(419)[address] [place], [place] 0264308-31-2025 23:10-0400 Systolic blood xdcrpkxe675 mm[Hg]Branden Ball DO Work Phone: 1(419)[address] [place], [place] 0264308-28-2025 10:05-0400 Body gnvimh669.94 cmBenjamin Ball DO Work Phone: 1(419)[address] [place], [place] 0264308-28-2025 10:05-0400 Body mass index (BMI) [Ratio]26.7 kg/g8Pggwarzq Ball DO Work Phone: 1(419)[address] [place], [place] 0264308-28-2025 10:05-0400 Body hiqktn96.2 kgBenjamin Ball DO Work Phone: 1(419)[address] [place], [place] 0264308-25-2025 15:15-0400 Body cjobkg396.94 cmBenjamin Ball DO Work Phone: 1(419)[address] [place], [place] 0264308-25-2025 15:15-0400 Body mass index (BMI) [Ratio]27 kg/r6Gejvddda Ball DO Work Phone: 1(419)[address] [place], [place] 0264308-25-2025 15:15-0400 Body bmatha73.92 kgBenjamin Ball DO Work Phone: 1419)[address] [place], [place] 0264308-25-2025 15:15-0400 Diastolic blood jogzxxbj01 mm[Hg]Branden Ball DO Work Phone: 1(419)474-[address] [place], [place] 5807908-25-2025 15:15-0400 Heart rate78 /minBenjamin Ball DO Work Phone: 1(419)[address] [place], [place] 0264308-25-2025 15:15-0400 Respiratory rate12 /minBenjamin Ball DO Work Phone: 1(419)[address] [place], [place] 0264308-25-2025 15:15-0400 Systolic blood raofmocx332 mm[Hg]Branden Ball DO Work Phone: 1(419)[address] [place], [place] 0264308-13-2025 14:04-0400 Body .94 cmBenjamin Ball DO Work Phone: 1419)[address] [place], [place] 0264308-13-2025 14:04-0400 Body mass index (BMI) [Ratio]26.9 kg/q1Msgmtocq Ball DO Work Phone: 1419)[address] [place], [place] 0264308-13-2025 14:04-0400 Body vvvmik65.58 kgBenjamin Ball DO Work Phone: 1(419)[address] [place], [place] 0264308-13-2025 14:04-0400 Diastolic blood esdyseli65 mm[Hg]Branden Ball DO Work Phone: 1(419)[address] [place], [place] 0264308-13-2025 14:04-0400 Heart rate71 /minBenjamin Ball DO Work Phone: 1(419)[address] [place], [place] 0264308-13-2025 14:04-0400 Respiratory rate12 /minBenjamin Ball DO Work Phone: 1(419)[address] [place], [place] 0264308-13-2025 14:04-0400 Systolic blood yrxocsmt900 mm[Hg]Branden Ball DO Work Phone: 1(419)[address] [place], [place] 0264308-12-2025 14:04-0400 Body wjibgb841.9 cmVanessa Dave PATIENT COORDINATOR[employer] Work Phone: 1(648)265-[address] [place], [place] 5973008-12-2025 14:04-0400 Body mass index (BMI) [Ratio]27.21 kg/o0WybuoVanessa Dave PATIENT COORDINATOR[employer] Work Phone: 1(522)383-[address] [place], [place] 5973008-12-2025 14:04-0400 Body evntdc39.32 kgAramantwan Dave PATIENT COORDINATOR[employer] Work Phone: 1(147)[address]08-12-2025 14:04-0400 Diastolic blood pmvqrrev41 mm[Hg]Vanessa Dave PATIENT COORDINATOR[employer] Work Phone: 1(161)[address]08-12-2025 14:04-0400 Heart rate60 /Bessieyaraevelyn Tenzin PATIENT COORDINATOR[employer] Work Phone: 1(332)[address]08-12-2025 14:04-0400 Systolic blood uaioxvxp580 mm[Hg]Vanessa Dave PATIENT COORDINATOR[employer] Work Phone: 1(169)[address]07-08-2025 14:31-0400 Body rjcnty617.9 cmVanessa Dave PATIENT COORDINATOR[employer] Work Phone: 1(490)[address]07-08-2025 14:31-0400 Body mass index (BMI) [Ratio]26.72 kg/p0EtcorVanessa Dave PATIENT COORDINATOR[employer] Work Phone: 4(731)230-[address] [place], [place] 5973007-08-2025 14:31-0400 Body uesebg91.14 kgVanessa Dave PATIENT CO[employer]INATOR[employer] Work Phone: 1(844)731-[address] [place], [place] 5973007-08-2025 14:31-0400 Diastolic blood edxajzzm22 mm[Hg]Vanessa Dave PATIENT COORDINATOR[employer] Work Phone: 9(232)081-[address] [place], [place] 5973007-08-2025 14:31-0400 Heart rate64 /Kenneth Dave PATIENT COORDINATOR[employer] Work Phone: 1(829)172-[address] [place], [place] 5973007-08-2025 14:31-0400 Systolic blood wlewsxjg509 mm[Hg]Vanessa Dave PATIENT COORDINATOR[employer] Work Phone: [facility]07-08-2025 13:18-0400 Diastolic blood gctxnacl48 mm[Hg]Branden Ball DO Work Phone: 1(205)827-21[facility]07-08-2025 13:18-0400 Systolic blood xaeuskvh929 mm[Hg]Branden Ball DO Work Phone: 1(487)937-[address] [place], [place] 5807907-08-2025 13:15-0400 Body .94 cmBenjamin Ball DO Work Phone: 1(985)574-[address] [place], [place] 5807907-08-2025 13:15-0400 Body mass index (BMI) [Ratio]26.4 kg/i7Zrqwksek Ball DO Work Phone: 1(403)825-[facility]07-08-2025 13:15-0400 Body onrhgk31.5 kgBenjamin Ball DO Work Phone: 1(144)269-[address] [place], [place] 5807907-08-2025 13:15-0400 Heart rate60 /minBenjamin Ball DO Work Phone: 1(990)494-[address] [place], [place] 5807907-08-2025 13:15-0400 Respiratory rate20 /minBenjamin Ball DO Work Phone: 1(492)932-[address] [place], [place] 5807907-08-2025 13:15-0400 SaO2% (BldA) [Mass fraction]98 %Branden Ball DO Work Phone: 1(694)382-[address] [place], [place] 5807905-28-2025 13:31-0400 Body loifwm262.94 cm[facility]05-28-2025 13:31-0400Body mass index (BMI) [Ratio]26.6 kg/b3TagkgqpwvPremier Health05-28-2025 13:31-0400Body pubjav13.12 kgPrem[facility]05-28-2025 13:31-0400Diastolic blood aaubuloc25 mm[Hg][facility] 08-19-2024 13:31-0400Heart rate84 /[facility] 08-19-2024 13:31-0400Respiratory rate12 /[facility] 08-19-2024 13:31-1719FqI1% (BldA) [Mass fraction]99 %[facility]05-28-2025 13:31-0400Systolic blood fbhuvito548 mm[Hg][facility]05-14-2025 13:50-0400Body ntoysf945.9 cmVanessa Dave PATIENT COORDINATOR[employer] Work Phone: [address] [place], [place] 6841305-14-2025 13:50-0400 Body mass index (BMI) [Ratio]27.4 kg/p7WtzxoVanessa Dave PATIENT COORDINATOR[employer] Work Phone: 1(772)[address]05-14-2025 13:50-0400 Body zchwjy54.77 kgVanessa Dave PATIENT COORDINATOR[employer] Work Phone: 1(160)[address]05-14-2025 13:50-0400 Diastolic blood xidcxhyn13 mm[Hg]Vanessa Dave PATIENT COORDINATOR[employer] Work Phone: 1(672)[address]05-14-2025 13:50-0400 Heart rate72 /Kenneth Dave PATIENT COORDINATOR[employer] Work Phone: 1(121)[address]05-14-2025 13:50-0400 Systolic blood mzjdtyzb984 mm[Hg]Vanessa Dave PATIENT COORDINATOR[employer] Work Phone: 1(296)[address]04-28-2025 11:18-0400 Body kfvejj369.94 cm[facility]04-28-2025 11:18-0400Body mass index (BMI) [Ratio]26.4 kg/i4LxmsxfxjcPremier Health04-28-2025 11:18-0400Body nvwies44.5 kg[facility]04-28-2025 11:18-0400Diastolic blood jpfrimxo30 mm[Hg][facility] 07-20-2024 11:18-0400Heart rate63 /[facility] 07-20-2024 11:18-0400Systolic blood mm[Hg][facility]03-05-2025 11:23-0500Body kfkcra712.9 cmWilliam Jtet DO Work Phone: [facility]03-05-2025 11:23-0500 Body mass index (BMI) [Ratio]27.02 kg/k5ComkqkvInderjit Frausto DO Work Phone: [facility]03-05-2025 11:23-0500 Body wgwobp11.86 kgInderjit Frausto DO Work Phone: [facility]03-05-2025 11:23-0500 Diastolic blood nunztodn98 mm[Hg]Inderjit Frausto DO Work Phone: [facility]03-05-2025 11:23-0500 Heart rate60 /Carlotta Frausto DO Work Phone: [facility]03-05-2025 11:23-0500 Systolic blood mm[Hg]Inderjit Frausto DO Work Phone: [facility]02-18-2025 13:38-0500 Body .94 cm[facility]02-18-2025 13:38-0500Body mass index (BMI) [Ratio]26.4 kg/g5YtiyhohtzPremier Health02-18-2025 13:38-0500Body nsjkia17.5 [facility]02-18-2025 13:38-0500Diastolic blood wviqbhxo31 mm[Hg][facility] 05-12-2024 13:38-0500Heart rate68 /[facility] 05-12-2024 13:38-0500Respiratory rate12 /[facility] 05-12-2024 13:38-0500Systolic blood mm[Hg][facility]12-19-2024 10:45-0500Body duiqgl541.94 cm[facility]12-19-2024 10:45-0500Body mass index (BMI) [Ratio]27 kg/h7JjyvavqzlPremier Health12-19-2024 10:45-0500Body .86 [facility]12-19-2024 10:45-0500Diastolic blood orlqzhfm74 mm[Hg] [facility]12-19-2024 10:45-0500Heart rate60 /[facility]12-19-2024 10:45-0500Respiratory rate20 /[facility]12-19-2024 10:45-0045QcL2% (BldA) [Mass fraction]98 % [facility]12-19-2024 10:45-0500Systolic blood zpshvfwy166 mm[Hg][facility]12-18-2024 13:04-0500Body zmvsig392.94 cm [facility]12-18-2024 13:04-0500Body mass index (BMI) [Ratio]27.8 kg/i5MpvdztijePremier Health12-18-2024 13:04-0500Body kaxyil81.9 [facility]12-16-2024 16:23-0500Body height 154.94 cmPrem[facility]12-16-2024 16:23-0500Body mass index (BMI) [Ratio]27.8 kg/o9JfiuquvihPremier Health12-16-2024 16:23-0500 Body jeybis83.79 [facility]12-16-2024 16:23-0500 Diastolic blood zfkohbrl99 mm[Hg][facility]12-16-2024 16:23-0500Heart rate70 /[facility]12-16-2024 16:23-0500Respiratory rate12 [facility]12-16-2024 16:23-0500Systolic blood hcxrbzua225 mm[Hg][facility] 12-20-2023 10:40-0400Body imflea077.9 cmInderjit Frausto DO Work Phone: [facility]09-27-2024 10:40-0400 Body mass index (BMI) [Ratio]27.02 kg/l3OnqqfijInderjit Frausto DO Work Phone: [facility]09-27-2024 10:40-0400 Body nlwyjc44.86 kgWiryanne Frausto DO Work Phone: [facility]09-27-2024 10:40-0400 Diastolic blood cuxplcto28 mm[Hg]Inderjit Frausto DO Work Phone: [facility]09-27-2024 10:40-0400 Heart rate57 /minInderjit Frausto DO Work Phone: [facility]09-27-2024 10:40-0400 Systolic blood vojunapw916 mm[Hg]Inderjit Frausto DO Work Phone: [facility]09-19-2024 13:21-0400 Body ilguer658.94 cmPA-C Doe Álvarez Work Phone: [facility]09-19-2024 13:21-0400 Body mass index (BMI) [Ratio]26.6 kg/m2PA-C Doe Álvarez Work Phone: [facility]09-19-2024 13:21-0400 Body lrleav93 kgPA-C Doe Álvarez Work Phone: [facility]09-11-2024 15:49-0400 Body xetpxs558.94 cmPA-C Doe Álvarez Work Phone: [facility]09-11-2024 15:49-0400 Body mass index (BMI) [Ratio]26.9 kg/m2PA-C Doe Álvarez Work Phone: [facility]09-11-2024 15:49-0400 Body ocumza27.58 kgPA-C Doe Álvarez Work Phone: [facility]09-11-2024 15:49-0400 Diastolic blood yiccqwwb97 mm[Hg]PA-C Doechanel Álvarez Work Phone: [facility]09-11-2024 15:49-0400 Heart rate71 /minPA-C Doe Álvarez Work Phone: 1(419)[address]09-11-2024 15:49-0400 Respiratory rate12 /minPA-C Doechanel Álvarez Work Phone: 1(925)[address] [place], [place] 1361609-11-2024 15:49-0400 Systolic blood erympybw854 mm[Hg]PA-C Doechanel Álvarez Work Phone: 1(897)[address] [place], [place] 1361608-20-2024 11:55-0400 Body okmukf615.94 cmPA-C Doe Álvarez Work Phone: 1(970)[address]08-20-2024 11:55-0400 Body mass index (BMI) [Ratio]27.3 kg/m2PA-C Doe Álvarez Work Phone: 1(159)[address] [place], [place] 5941708-20-2024 11:55-0400 Body .48 kgPA-C Doe Álvarez Work Phone: 1(945)[address] [place], [place] 1361608-20-2024 11:55-0400 Diastolic blood aiwlubra03 mm[Hg]PA-C Doe Álvarez Work Phone: 1(774)[address] [place], [place] 1361608-20-2024 11:55-0400 Heart rate57 /minPA-C Doe Álvarez Work Phone: 1(842)[address]08-20-2024 11:55-0400 Respiratory rate12 /minPA-C Doe Álvarez Work Phone: 1(133)[address]08-20-2024 11:55-0400 Systolic blood fktwbacm341 mm[Hg]PA-C Doe Álvarez Work Phone: 1(598)[address]08-15-2024 10:05-0400 Body nxyddy109.9 cmInderjit Frausto Work Phone: [facility]08-15-2024 10:05-0400 Body mass index (BMI) [Ratio]26.83 kg/e6KcqjxcuInderjit Frausto DO Work Phone: [facility]08-15-2024 10:05-0400 Body .41 kgWiryanne Frausto DO Work Phone: [facility]08-15-2024 10:05-0400 Diastolic blood mqnuidmf44 mm[Hg]Inderjit Frausto DO Work Phone: [facility]08-15-2024 10:05-0400 Heart rate82 /minInderjit Frausto DO Work Phone: [facility]08-15-2024 10:05-0400 Systolic blood mm[Hg]Inderjit Frausto DO Work Phone: [facility]08-13-2024 11:37-0400 Diastolic blood ukacfynt86 mm[Hg]PA-C Doe Álvarez Work Phone: 1(909)[address]08-13-2024 11:37-0400 Heart rate63 /minIGNACIA-C Doe Álvarez Work Phone: 1(554)[address]08-13-2024 11:37-0400 Respiratory rate20 /minIGNACIA-C Doe Álvarez Work Phone: 1(290)077-[address] [place], [place] 2482208-13-2024 11:37-0400 SaO2% (BldA) [Mass fraction]98 %PA-C Doe Álvarez Work Phone: [phone])833-78[facility]08-13-2024 11:37-0400 Systolic blood mm[Hg]PA-C Doe Álvarez Work Phone: 1(424)065-66[facility]08-13-2024 09:10-0400 Body esbpfxzctif73.8 [degF]PA-C Doe Álvarez Work Phone: 6(584)829-03[facility]08-13-2024 07:18-0400 Body kfqsyb100.94 cmPA-C Doe Álvarez Work Phone: 1(476)896-91[facility]08-13-2024 07:18-0400 Body .77 kgPA-C Doe Álvarez Work Phone: 1(419)[address] [place], [place] 5941708-06-2024 16:00-0400 Body pxbyfuvafux45.2 [degF]PA-C Doechanel Álvarez Work Phone: 1(288)107-[address] [place], [place] 2482208-06-2024 16:00-0400 Diastolic blood bacnsjyb67 mm[Hg]PA-C Doe Álvarez Work Phone: 1(923)[address]08-06-2024 16:00-0400 Heart rate58 /minPA-C Doechanel Álvarez Work Phone: 1(962)[address]08-06-2024 16:00-0400 Respiratory rate16 /minPA-C Doechanel Álvarez Work Phone: 1(712)[address]08-06-2024 16:00-0400 SaO2% (BldA) [Mass fraction]96 %PA-C Doe Álvarez Work Phone: 1(115)[address]08-06-2024 16:00-0400 Systolic blood wkefbgwm079 mm[Hg]PA-C Doe Álvarez Work Phone: 1(365)[address] [place], [place] 1361608-06-2024 06:00-0400 Body twoojj73.6 kgPA-C Doe Álvarez Work Phone: 1(263)[address]08-06-2024 06:00-0400 Inhaled oxygen flow rate2 L/minPA-C Doe Álvarez Work Phone: 1(721)746-[address] [place], [place] 2482208-04-2024 21:42-0400 Body andanq530.94 cmPA-C Doe Álvarez Work Phone: 1(001)766-[address] [place], [place] 2482208-04-2024 19:05-0400 Diastolic blood pvuqmjgj52 mm[Hg]PA-C Doe Álvarez Work Phone: 1(869)448-[address] [place], [place] 2482208-04-2024 19:05-0400 Heart rate75 /minPA-C Doe Álvarez Work Phone: 1(485)904-[address] [place], [place] 2482208-04-2024 19:05-0400 Respiratory rate28 /minPA-C Doe Álvarez Work Phone: [facility]08-04-2024 19:05-0400 SaO2% (BldA) [Mass fraction]96 %PA-C Doe Álvarez Work Phone: [facility]08-04-2024 19:05-0400 Systolic blood mm[Hg]PA-C Doe Álvarez Work Phone: 1(237)[phone]08-04-2024 17:31-0400 Body qubkhabnnfb35.9 [degF]PA-Heri Álvarez Work Phone: 1(211)396-[address] [place], [place] 2482208-04-2024 17:11-0400 Body rknmju206.94 cmPA-C Doe Álvarez Work Phone: 1(989)075-07[facility]08-04-2024 17:11-0400 Body gyuqmu64.3 kgPA-Heri Álvarez Work Phone: [facility]03-28-2024 14:32-0400 Body hiuxzv672.1 cmDO Branden Fraga Work Phone: 1(944)913-95[facility]03-28-2024 14:32-0400 Body mass index (BMI) [Ratio]24.4 kg/m2DO Branden Philly Work Phone: [facility]03-28-2024 14:32-0400 Body qseeac07.67 kgDO Branden Ball Work Phone: [facility]03-28-2024 14:32-0400 Diastolic blood wfeonvzy65 mm[Hg]DO Branden Ball Work Phone: [facility]03-28-2024 14:32-0400 Heart rate83 /minDO Branden [employer] Work Phone: [facility]03-28-2024 14:32-0400 Systolic blood mm[Hg]DO Branden Ball Work Phone: [facility]03-15-2024 09:28-0400 Body jfkiod860.1 cmDO Branden Ball Work Phone: 1(181)[address]03-15-2024 09:28-0400 Body mass index (BMI) [Ratio]24.6 kg/m2DO Branden Ball Work Phone: 1(179)[address]03-15-2024 09:28-0400 Body quooux99.18 kgDO Branden Ball Work Phone: 1(032)907[address]03-15-2024 09:28-0400 Diastolic blood momzazph09 mm[Hg]DO Branden Ball Work Phone: 1(151)[address] [place], [place] 0264303-15-2024 09:28-0400 Heart rate77 /minDO Branden Ball Work Phone: 1(457)[address] [place], [place] 0264303-15-2024 09:28-0400 Respiratory rate12 /minDO Branden Ball Work Phone: 1(680)[address] [place], [place] 0264303-15-2024 09:28-0400 Systolic blood oijxdexv122 mm[Hg]DO Branden Ball Work Phone: 1(832)[address] [place], [place] 0264302-27-2024 10:24-0500 Body dulepc471.1 cmDO Branden Ball Work Phone: 1(898)[address] [place], [place] 0264302-27-2024 10:24-0500 Body mass index (BMI) [Ratio]24.3 kg/m2DO Branden Ball Work Phone: 1(246)[address] [place], [place] 0264302-27-2024 10:24-0500 Body qmdwcy52.22 kgDO Branden Ball Work Phone: 1(619)239[address]02-27-2024 10:24-0500 Diastolic blood mm[Hg]DO Branden Ball Work Phone: 1(320)[address] [place], [place] 0264302-27-2024 10:24-0500 Heart rate71 /minDO Branden Ball Work Phone: 1(892)[address] [place], [place] 0264302-27-2024 10:24-0500 Respiratory rate16 /minDO Branden Ball Work Phone: 1(331)[facility] [place], [place] 5807902-27-2024 10:24-0500 Systolic blood cikteolg374 mm[Hg]DO Branden Ball Work Phone: 1(857)849-63[facility]01-19-2024 11:30-0500 Body arblzl870.1 cmBenjamin Ball Other [facility]01-19-2024 11:30-0500 Body mass index (BMI) [Ratio]24.59 kg/q3Hkbfniww Ball Other [employer] Other 01-19-2024 11:30-0500Body jktapu85.04 kgBenjamin Ball Other [facility]01-19-2024 11:30-0500 Diastolic blood mm[Hg]Branden Ball Other [facility]01-19-2024 11:30-0500 Respiratory rate12 /minBenjamin Ball Other [employer] Other 01-19-2024 11:30-0500Systolic blood otjnhbtv496 mm[Hg] Branden Ball Other [facility]01-02-2024 11:30-0500 Body afuhat794.1 cmBenjamin Ball Other [facility]01-02-2024 11:30-0500 Body mass index (BMI) [Ratio]24.89 kg/c2Lqzpfofa Ball Other [employer] Other 01-02-2024 11:30-0500Body hnyewq67.86 kgBenjamin Ball Other [employer] Other 01-02-2024 11:30-0500Body kiwptu11.85 kgDO Branden Ball Work Phone: [phone]01-02-2024 11:30-0500 Diastolic blood mm[Hg]Branden Ball Other [facility]01-02-2024 11:30-0500 Respiratory rate12 /minBenjamin Ball Other [employer] Other 01-02-2024 11:30-0500Systolic blood mm[Hg] Branden Ball Other [facility]11-17-2023 13:30-0500 Body ravkkn003.1 cmBenjamin Ball Other [facility]11-17-2023 13:30-0500 Body mass index (BMI) [Ratio]24.29 kg/b2Rqbdgltz Ball Other [employer] Other [id number] 13:30-0500Body ovgfde60.23 kgBenjamin Ball Other [employer] Other [id number] 13:30-0500Body bsamqm73.22 kgDO Branden Ball Work Phone: [facility]11-17-2023 13:30-0500 Diastolic blood ootuwpup37 mm[Hg]Branden Ball Other [facility]11-17-2023 13:30-0500 Respiratory rate12 /minBenjamin Ball Other [employer] Other 11-17-2023 13:30-0500Systolic blood ropwkrxx083 mm[Hg] Branden Ball Other [facility]06-05-2023 11:15-0400 Body .1 cmBenjamin Ball Other [employer] Other 06-05-2023 11:15-0400Body mass index (BMI) [Ratio] 24.06 kg/f3Eyhwxkgz Ball Other [employer] Other 06-05-2023 11:15-0400Body .59 kgBenjamin Ball Other [employer] Other 06-05-2023 11:15-0400Diastolic blood mm[Hg] Branden Ball Other [employer] Other 06-05-2023 11:15-0400Respiratory rate12 /minBenjamin Ball Other [employer] Other 06-05-2023 11:15-0400Systolic blood qqikjbyq178 mm[Hg] Branden Ball Other [employer] Other 04-17-2023 15:00-0400Body xauxtj564.1 cmBenjamin Ball Other [employer] Other 04-17-2023 15:00-0400Body mass index (BMI) [Ratio] 23.23 kg/f0Vagbvhfu Ball Other [employer] Other 04-17-2023 15:00-0400Body bbnbmu94.32 kgBenjamin Ball Other [employer] Other 04-17-2023 15:00-0400Diastolic blood nltdeasp24 mm[Hg] Branden Ball Other [employer] Other 04-17-2023 15:00-0400Respiratory rate12 /minBenjamin Ball Other [employer] Other 04-17-2023 15:00-0400Systolic blood maayavih211 mm[Hg] Branden Ball Other [employer] Other 02-27-2023 15:45-0500Body zivdxs267.1 cmBenmary ann Fraga Other [employer] Other 02-27-2023 15:45-0500Body mass index (BMI) [Ratio] 24.56 kg/d6Pvfmbvld Ball Other [employer] Other 02-27-2023 15:45-0500Body .95 kgBenmary ann Fraga Other [employer] Other 02-27-2023 15:45-0500Diastolic blood gloglikj51 mm[Hg] Branden Fraga Other [employer] Other 02-27-2023 15:45-0500Respiratory rate12 /minBenmary ann Fraga Other [employer] Other 02-27-2023 15:45-0500Systolic blood zhdwnldo726 mm[Hg] Branden Fraga Other [employer] Other 02-27-2023 09:45-0500Diastolic blood aputzlal54 mm[Hg] Et3 ZmilljnwLdistBcbery01-60-9737 09:45-0500Heart rate72 /minEt3 Resource CjfezLthnpq00-17-4923 09:45-0500Respiratory rate18 /minEt3 [facility] 05-21-2022 09:45-5243AyP9% (BldA) [Mass fraction]98 %Et3 [facility] 05-21-2022 09:45-0500Systolic blood wozpgfvq821 mm[Hg]Et3 [facility] Encounters Encounter DateEncounter [facility] ProviderFacilityStart: 01-27-2025 End: 71-98-4536Cdndrs outpatient visit 25 minutesVanessa Dave [facility] Work Phone: [facility]Comment on above:History of ST elevation myocardial infarction (STEMI) (Primary Dx); Coronary artery disease, unspecified vessel or lesion type, unspecified whether angina present, unspecified whether [place] or transplanted heart; Hyperlipidemia, unspecified hyperlipidemia type; Essential hypertension; BMI 27.0-27.9,adultStart: 01-27-2025 End: 71-36-2034wzqzkewgidFvtcqzme Ball DO Work Phone: [phone]-Psbvodmeu Health GastroStart: 01-27-2025 End: 95-53-2393Mdiuzvt encounter procedureAmericoaarti Martinez [facility] Work Phone: Start: 01-12-2025 End: 50-71-9288edqgjgsfhhJpyfevmf Ball DO Work Phone: [phone]-Rqcmghthy Health GastroStart: 01-12-2025 End: 39-44-2579Ujpvzbv encounter procedureAmericoaarti Martinez [facility] Work Phone: Start: 12-29-2024 End: 48-39-0694lplvjijgomBcoeaxwg Ball DO Work Phone: [facility] Work Phone: Start: 12-29-2024 End: 99-61-8298Ovrnhqv encounter Eileen Granda [facility] Neurosurgery Work Phone: start: 13-94-8642Mlk-patient / Juj-rbslyVafh-Ioow Chang MD-[facility] Work Phone: Start: 12-14-2024 End: 69-57-4695yxlrakaypkCyasjqqi Ball DO Work Phone: [facility] Work Phone: Start: 12-14-2024 End: 56-75-5098Owtfyrd encounter procedureJustus Damon DO-[facility] [place] Work Phone: Start: 12-03-2024 End: 82-85-1275jlzjzperugSyhuupwg Ball DO Work Phone: [facility] Work Phone: Start: 12-03-2024 End: 50-26-2019Bjayamb encounter procedureBenjamin Ball DO-[facility] Work Phone: Start: 12-01-2024 End: 82-47-9809drmmfegmmuYttudtrb Ball DO Work Phone: [facility] Work Phone: Start: 12-01-2024 End: 76-69-1507Jvziujt encounter procedureShmuel Martinez [facility] Gastro Work Phone: Start: 10-95-9978Gjm-patient / Non-visitCatherine Chris 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-[facility] Work Phone: Start: 11-22-2024 End: 90-27-5557zjdgdoimnkZzbmst CurtFacility:[facility]: 11-22-2024 End: 99-10-9576Uhgqujvlnj and management of inpatientAndscarlett Elias MD-[facility] [place] [facility] Work Phone: Start: 11-22-2024 End: 10-99-9659fsramtypwta encounterBenjamin Ball DO Work Phone: [facility] Work Phone: Start: 11-19-2024 End: 79-50-8004marigbboodYqqffykg Ball DO Work Phone: [facility] Work Phone: Start: 11-19-2024 End: 96-42-5362Aaycchr encounter procedureRoxane Granda [facility] Neurosurgery Work Phone: start: 11-18-2024 End: 59-82-9693rdzlgstmiaQfibrwpr Ball DO Work Phone: [facility] Work Phone: Start: 11-18-2024 End: 75-91-0307Sftrrtc encounter procedureJustus Evelyn Marisol DO-[facility] Work Phone: Start: 11-16-2024 End: 06-75-9874dyunethdqlQtxocanr Ball DO Work Phone: [facility] Work Phone: Start: 11-16-2024 End: 57-97-8379Lfgcmam encounter procedureBenjaherbert Fraga DO-[facility] Work Phone: Start: 01-34-1231Nrd-patient / Non-visitCatherine Chris 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-[facility] Work Phone: Start: 11-04-2024 End: 12-61-8898zvtakspsngByyjpvac Ball DO Work Phone: [facility] Work Phone: Start: 11-04-2024 End: 34-03-3658Lnljwkn encounter procedureBenmary ann Fraga DO-[facility] Work Phone: Start: 11-03-2024 End: 79-31-7275Enyzow outpatient visit 10 Carmen Dave PATIENT COORDINATOR-[facility] Work Phone: uh [facility] HospitalComment on above:BMI 27.0-27.9,adult (Primary Dx); Essential hypertension; Localized edemaStart: 11-03-2024 End: 95-28-0657uqvdrfbedpWNWDP K [facility] AmbulatoryStart: 10-03-2024 End: 82-92-6266slyydevquoGenqusjc Ball DO Work Phone: [facility] Work Phone: Start: 10-03-2024 End: 73-69-3054Evxqieeb ReferredLaurie Mills MD-[facility] [place] [facility] Start: 10-00-7723Ozn-patient / Non-visitLaurie Mills MD-[facility] Work Phone: Start: 09-29-2024 End: 66-24-7695Pjhvpa outpatient visit 15 minutesVanessa Dave APRN-[employer] Work Phone: [facility] on above:Essential hypertension (Primary Dx); Fatigue, unspecified type; BMI 26.0-26.9,adultStart: 09-29-2024 End: 56-46-6238jpgpmrbnpoBTMIUPhoebe Putney [facility] Hospital AmbulatoryStart: 09-29-2024 End: 72-90-1794fpunxowpwwXwtkvdxf [employer] DO Work Phone: [facility] Work Phone: Start: 09-29-2024 End: 78-28-9032Fwpkepo encounter procedureSobia Okeefe MD-[facility] Work Phone: Start: 08-19-2024 End: 38-62-8369muhacydosdQixchuogeSelect [facility] Work Phone: Start: 08-19-2024 End: 23-45-0554Leyppix encounter procedureC[facility] Work Phone: Start: 06-19-2528Txb-patient / Non-visitF[facility] Work Phone: Start: 08-05-2024 End: 11-76-2692Nqfkrd outpatient visit 25 minutesVanessa Dave APRN-[employer] Work Phone: uh [facility] on above:Hyperlipidemia, unspecified hyperlipidemia type (Primary Dx); Coronary artery disease, unspecified vessel or lesion type, unspecified whether angina present, unspecified whether peoria or transplanted heart; History of ST elevation myocardial infarction (STEMI); Essential hypertension; BMI 27.0-27.9,adult; Fatigue, unspecified type; Shortness of breathStart: 08-05-2024 End: 62-27-5083jcicdrfpyzUGWDZPhoebe [facility]ney [facility] Hospital AmbulatoryStart: 07-20-2024 End: 16-96-4951edlcvuyjjlOssiykyosSelect Medical [facility]ty [facility] Work Phone: Start: 07-20-2024 End: 86-26-4179Fvvfynd encounter procedureC[facility] Physician GroupAt[facility] Work Phone: Start: 05-27-2024 End: 29-38-3785Gxziuo outpatient visit 15 [facility] DO Work Phone: uh [facility] on above:Coronary artery disease, unspecified vessel or lesion type, unspecified whether angina present, unsp ecified whether peoria or transplanted heart; History of ST elevation myocardial infarction (STEMI); History of PTCA; Hyperlipidemia, unspecified hyperlipidemia type; Essential hypertension; BMI 27.0-27.9,adult; Former smokerStart: 05-27-2024 End: 78-80-6894wskqcavaxfVMOWBOBPhoebe Worth Medical Center AmbulatoryStart: 05-12-2024 End: 83-29-7279jhlsnozfkgCpwmaymapSelect [facility] Work Phone: Start: 05-12-2024 End: 27-90-5294Xwazoqf encounter procedureC[facility] Physician GroupA[facility] Work Phone: Start: 05-81-6534Ljn-patient / Non-visitC[facility] Health [facility] Phys[facility] GroupColumb[facility] Professional [facility] Work Phone: Start: 03-12-2024 End: 57-30-7057Gzliglc encounter procedureC[facility] Health [facility] Hospital Physician GroupAtrium [facility] Pulmonary Work Phone: Start: 03-11-2024 End: 48-28-4261Xlefasm encounter procedureC[facility] Health [facility] Hospital Physician GroupAt[facility] Gastro Work Phone: Start: 03-09-2024 End: 22-93-8851Uonuref encounter procedureCone Health [facility] Hospital Physician GroupAbra[facility] Work Phone: Start: 39-49-2145Kqopcnf encounter procedureKettering Health [facility]: 49-14-6451Alc-patient / Non-visitC[facility] Health [facility] Hospital Physician GroupAbra[facility] Work Phone: Start: 12-20-2023 End: 69-88-5094Nkavoz outpatient visit 25 minutesWiryanne Frausto DO Work Phone: [facility] on above:Near syncope; Fatigue, unspecified type; History of PTCA; Essential hypertension; History of ST elevation myocardial infarction (STEMI); Shortness of breath; Coronary artery disease, unspecified vessel or lesion type, unspecified whether angina present, unspecified whether peoria or transplanted heart; Former smoker; BMI 27.0-27.9,adultStart: 12-12-2023 End: 78-57-3329uwiknythibDZCortney Álvarez Work Phone: [facility] Work Phone: Start: 12-12-2023 End: 73-33-2023Bzxunwt encounter procedureFLAKITA Álvarez Work Phone: [facility] Work Phone: Start: 12-04-2023 End: 43-29-1559nnccfvichbKOCortney Álvarez Work Phone: [facility] Work Phone: Start: 12-04-2023 End: 99-73-6783Qnqlhpd encounter procedureFLAKITA Álvarez Work Phone: [facility] Physician Group-[facility] Work Phone: Start: 11-12-2023 End: 50-06-1618yinopxqtkuHQCortney Álvarez Work Phone: [facility] Work Phone: Start: 11-12-2023 End: 13-43-3769Ulgxizh encounter procedureFLAKITA Álvarez Work Phone: [facility] Work Phone: Start: 11-07-2023 End: 00-76-5265Eokgqilqvudr care manage srvc 7 day dischargeLiamryanne Frausto DO Work Phone: uh [facility] on above:Coronary artery disease, unspecified vessel or lesion type, unspecified whether angina present, unsp ecified whether peoria or transplanted heart; History of PTCA; History of ST elevation myocardial infarction (STEMI); Shortness of breath; Former smoker; BMI 26.0-26.9,adult; Hyperlipidemia, unspecified hyperlipidemia typeStart: 52-29-4352Yrh-patient / Rhr-uzxqrXP-PHeri Álvarez Work Phone: [facility] Group-[facility] Work Phone: Start: 11-05-2023 End: 61-27-7730Upxdwxsfu department patient visitFLAKITA Álvarez Work Phone: [facility]-Emergency Room Work Phone: Start: 93-97-4753Dlj-patient / Cxn-fxhybNU-XPrieto Álvarez Work Phone: [facility] Work Phone: Start: 10-27-2023 End: 74-04-5053Gkoduzkmdx and management of inpatientRIPrieto Álvarez Work Phone: [facility] [place] [facility] Work Phone: Start: 06-20-2023 End: 39-96-8815cyjbjftnqiRH Branden SkillSlate Work Phone: [facility] Work Phone: Start: 06-20-2023 End: 61-69-9322Noytmbc encounter procedureDO Branden SkillSlate Work Phone: [facility] Work Phone: Start: 06-07-2023 End: 44-30-4143mjaesiasiyIG Branden SkillSlate Work Phone: [facility] Work Phone: Start: 06-07-2023 End: 15-54-5124Dhfjapm encounter procedureDO Branden Fraga Work Phone: [facility] Work Phone: Start: 05-21-2023 End: 99-48-9090Deomzdh encounter procedureDO Branden Fraga Work Phone: [facility] Phys[facility] Work Phone: Start: 05-06-2023 End: 76-67-7305gijumrasueAL Branden Fraga Work Phone: [facility] Work Phone: Start: 05-06-2023 End: 78-58-0680Gjpbods encounter procedureDO Branden Fraga Work Phone: [facility]-Pet Scan Work Phone: Start: 04-24-2023 End: 34-47-0271lfmifyxjqeCPPZX M ALLENNot AvailableStart: 04-23-2023 End: 77-32-3783wljisqaiirRsszsmul Ball Other no[employer] Other Start: 45-93-0943Pbbugbsit encounterBenjamin BallFP[facility] ClinicStart: 04-22-2023 End: 45-46-6214ippzhhdrgfFumasjfe Ball Other [employer] Other Start: 92-11-7006Wqogflwkr encounterBenjamin BallFP[facility] ClinicStart: 04-17-2023 End: 96-74-5742sbjhzgjfkrAiwtfnxe Ball Other [employer] Other Start: 14-18-5319Twprntsvf encounterBenjamin BallFP[facility] ClinicStart: 04-12-2023 End: 24-14-8414sprnfmabdiPiurlfks Ball Other [employer] Other Start: 13-31-0442Huwqru outpatient visit 15 minutes Branden BallFP[facility] ClinicStart: 82-34-5067Uzcovxitc encounterBenjamin BallFP[facility] ClinicStart: 04-12-2023 End: 05-78-8429Jzwlvvs encounter procedureDO Branden Fraga Work Phone: [facility]-Start: 04-08-2023 End: 50-02-6470peaxctiddoXkonaciq Ball Other [facility] [employer] Other Start: 40-31-9100Dzovfqesy encounterBenjamin BallFP[facility] ClinicStart: 04-01-2023 End: 11-19-8980odtsqdhubyRcfbmlxh Ball Other [facility] [employer] Other Start: 39-83-1597Ahgevnhdg encounterBenjamin BallFP[facility] ClinicStart: 03-27-2023 End: 92-00-7583ipersolyxtTmtjzjgd Ball Other noNutrino [employer] Other Start: 50-63-7695Ibyvqkgpy encounterBenjamin BallFP[facility] ClinicStart: 03-26-2023 End: 39-13-7215vbiaralviaZowphega Ball Other noNutrino [employer] Other Start: 70-66-3623Bbmjra outpatient visit 15 minutes Branden BallFP[facility] ClinicStart: 03-26-2023 End: 42-04-3343Ozvvnkc encounter procedureDO Branden Fraga Work Phone: [facility] Physician [facility] Work Phone: Start: 03-14-2023 End: 12-74-2435fijpprbbxcIwfctnkr Ball Other [employer] Other Start: 09-44-2425Wflouyyxj encounterBenjamin BallFP[facility] ClinicStart: 02-19-2023 End: 41-48-6975hgqcmxficoDfvdmkhp Ball Other [facility] [employer] Other Start: 46-33-6541Dzumllaie encounterBenjamin Afia Fraga Medical ClinicStart: 02-08-2023 End: 87-87-4831wffymyxhggMsgxxnzo Ball Other [facility] [employer] Other Start: 42-82-4840Sabkivm encounter procedureBenmary ann [facility] Medical ClinicStart: 02-08-2023 End: 69-66-6318Cvulywd encounter procedureDO Branden Philly Work Phone: [facility] Work Phone: Start: 09-20-2022 End: 53-89-1418lwitqsmhbbCsumkhkx Ball Other [facility] [employer] Other Start: 28-37-1934Ioifxohka encounterBenmary ann [facility] Medical ClinicStart: 08-27-2022 End: 14-31-5917cxqmqzbjlhXyqggvea Ball Other [facility] [employer] Other Start: 15-79-0579Dewwte outpatient visit 15 minutes Branden Fr[facility] Medical ClinicStart: 08-24-2022 End: 60-13-0252jvmnjbwbcwKducqswo Ball Other [facility] [employer] Other Start: 31-76-9896Srtkhdk evaluation of patient and reportBenmary ann LooG [facility] ClinicStart: 07-09-2022 End: 61-70-6070tnkihbkgvnDnmgfxxw Ball Other noLeukoDx Other Start: 74-89-6025Jcyypc outpatient visit 15 minutes Branden LooG [facility] ClinicStart: 06-12-2022 End: 26-86-2396kjadlkzzbeGvacrkug Ball Other [employer] Other Start: 13-82-0333Npykogifz encounterBenjamin BallFP[facility] ClinicStart: 06-11-2022 End: 94-24-4087xuqkskjubaIoohstkj Ball Other [employer] Other Start: 56-10-6513Fceovnntt encounterBenjamin BallFP[facility] ClinicStart: 05-22-2022 End: 20-22-7528ydumegisiiVgdkwbeq Ball Other [employer] Other Start: 78-50-5927Heokhrewe encounterBenjamin BallFP[facility] ClinicStart: 92-93-9014Pmfsut outpatient visit 15 minutesBenjamin BallFP[facility] ClinicStart: 05-21-2022 End: 26-18-5589eotebqnzvaSU BRANDEN BALLFacility:V4Qekzw: 05-21-2022 End: 49-72-4333oezvyjbnklHb3 ResourceMetroOhio[facility] Emergency Triage, Treat and TransportStart: 05-21-2022 End: 35-84-7182Lzgyrnonk department patient visitEt3 ResourceMetroOhiohealth [facility] Emergency Triage, Treat and TransportComment on above:ArrivedStart: 05-04-2022 End: 01-01-8835zpstcoxyenXrqfzqwg Ball Other [employer] Other Start: 42-40-9648Fhdojkydp encounterBenjamin BallFP[facility] ClinicStart: 05-03-2022 End: 93-83-3317lkvuxcvzzoSrjmofng Ball Other noInt[employer] Other Start: 16-57-7563Hoslcgvew encounterBenjamin BallFP[facility] ClinicStart: 02-08-2022 End: 48-20-4021ifrfoqbggfHK BRANDEN BALLFacility:K9Xmdwf: 08-11-2021 End: 01-11-9395kvtqpslbgpYH BRANDEN FRAGAFacility:H1 Procedures DateProcedureProcedure DetailPerforming ClinicianStart: 86-64-5379Bdltrv abdominal X-rayBenmary ann Fraga DO Work Phone: Start: 88-49-5365Utoze cultureBenmary ann Fraga DO Work Phone: Start: 64-52-1764Rrj routine ecg w/least 12 lds w/i&r Inderjit S Jett DO Work Phone: Start: 92-23-5757Lpqbsat of percutaneous transluminal coronary angioplastyHistory of PTCÁngellliam S Jett DO Work Phone: Start: 25-21-8254JW angiography of thoraxPA-C Doe Álvarez Work Phone: Start: 22-18-5437Qdacm chest X-rayPA-C Doe Álvarez Work Phone: Start: 60-40-7722DS Closure Device Placement 0PA-C Doe Álvarez Work Phone: Start: 42-59-0969GA LHC & COR AngioPA-C Doe Álvarez Work Phone: Start: 09-28-8765PW PCI AMI 1st Vessel RCA DESPA-C Doe Álvarez Work Phone: Start: 58-29-6225Gpgww chest X-rayPA-C Doe Álvarez Work Phone: Start: 24-90-7076Psdiyggy emission tomography with computed tomographyDO Branden Fraga Work Phone: History of percutaneous transluminal coronary angioplastyHistory of PTCÁngellliam S Jett DO Work Phone: History of percutaneous transluminal coronary angioplastyHistory of PTCAWilliam S Jett DO Work Phone: Plan of Treatment DateCare ActivityDetailAuthorStart: 36-75-7163HVsH/Tdap/Td Vaccines (2 - Td or Tdap)DTaP/Tdap/Td Vaccines (2 - Td or Tdap)[facility] Start: 07-28-2025 End: 25-21-3300Gxbmrqa encounter /06/2026 10:20 AM EDT Office Visit [facility] [address] [facility] [address] [place] [id number] Inderjit Frausto DO [address] [facility] [address] [place] [address] [facility]: 98-12-9409TYRUD-19 Vaccine ( season)COVID-19 Vaccine ( season)[facility]: 01-27-2025 End: 06-28-8925Dtpbdby aminotransferase [Enzymatic activity/volume] in Serum or Plasma by With P-5'-PAlanine Aminotransferase Lab Routine Coronary artery disease, unspecified vessel or lesion type, unspecified whether angina present, unspecified whether peoria or transplanted heart Hyperlipidemia, unspecified hyperlipidemia type Expected: 01/27/2025 (Approximate), Expires: 01/27/2026[facility] Work Phone: Comment on above:Expected: 01/27/2025 (Approximate), Expires: 01/27/2026Start: 01-27-2025 End: 06-97-2943Urudwmtuc aminotransferase [Enzymatic activity/volume] in Serum or Plasma by With P-5'-PAspartate Aminotransferase Lab Routine Coronary artery disease, unspecified vessel or lesion type, unspecified whether angina present, unspecified whether peoria or transplanted heart Hyperlipidemia,unspecified hyperlipidemia type Expected: 01/27/2025 (Approximate), Expires: 01/27/2026 [facility] Work Phone: Comment on above:Expected: 01/27/2025 (Approximate), Expires: 01/27/2026Start: 01-27-2025 End: 99-91-5947Jgfks 1996 panel - Serum or PlasmaLipid Panel Lab Routine Coronary artery disease, unspecified vessel or lesion type, unspecified whether angina present, unspecified whether peoria or transplanted heart Hyperlipidemia, unspecified hyperlipidemia type Expected: 01/27/2025 (Approximate), Expires: 01/27/2026[facility] Work Phone: Comment on above:Expected: 01/27/2025 (Approximate), Expires: 01/27/2026Start: 01-27-2025 End: 78-23-3812Djejzze encounter sksnzcjaz85/05/2025 1:00 PM EST Office Visit [address] [place] [address] Vanessa Dave, PATIENT COORDINATOR-[employer] [address] [facility] [address] [place] [address] [facility] 46-63-3152Tpsrybbrt vaccinationInfluenza Vaccine (#1)[facility] HospitalStart: 70-53-5188IcfpmdwwqKettering Health [facility]: 62-82-8556Qebbuazt admissionK[facility]tering Health [facility]: 11-22-2024 End: 07-16-9304BcmuwyqduKettering Health [facility]: 11-03-2024 End: 81-07-3115Yvspzvg encounter iomkrpfsr28/12/2025 2:00 PM EDT Office Visit [address] [place] [address] Vnaessa Dave, PATIENT COORDINATOR-[employer] [address] [facility] [address] [place] [address] [facility]: 11-03-2024 End: 71-59-9413AL.doppler Lower extremity vein - rightVascular US lower extremity venous duplex right Vascular Ultrasound STAT Localized edema Expected: 11/03/2024 (Approximate), Expires: 11/03/2026[facility] Work Phone: Comment on above:Expected: 11/03/2024 (Approximate), Expires: 11/03/2026Start: 39-99-4526Xtxtw cultureKettering Health Troytart: 98-07-1301Isvirerl identified in Urine by CultureUrine Culture [facility] CenterStart: 09-08-2024 End: 15-14-7937Jcwmfbz encounter kepivrhnq42/17/2025 1:00 PM EDT Office Visit [facility] [address] [facility] [address] [place] [address] DaveAramantwan Foreman, PATIENT COORDINATOR-[employer] [address] [place] [address] [facility]: 08-05-2024 End: 36-61-0729Hvuhu metabolic 2000 panel - Serum or PlasmaBasic Metabolic Panel Lab Routine Coronary artery disease, unspecified vessel or lesion type, unspec ified whether angina present, unspecified whether peoria or transplanted heart Essential hypertension Fatigue, unspecified type Expected: 08/05/2024 (Approximate), Expires: 08/05/2025[facility] Work Phone: Comment on above:Expected: 08/05/2024 (Approximate), Expires: 08/05/2025Start: 08-05-2024 End: 28-91-1074ETG panel - Blood by Automated countCBC Lab Routine Coronary artery disease, unspecified vessel or lesion type, unspecified whether angina present, unspecified whether peoria or transplanted heart Essential hypertension Fatigue, unspecified type Expected: 08/05/2024 (Approximate), Expires: 08/05/2025[facility] Work Phone: Comment on above:Expected: 08/05/2024 (Approximate), Expires: 08/05/2025Start: 08-05-2024 End: 41-52-1560Hkpimqtfcwd [Units/volume] in Serum or PlasmaThyroid Stimulating Hormone Lab Routine Coronary artery disease, unspecified vessel or lesion type, unspecified whether angina present, unspecified whether peoria or transplanted heart Essential hypertension Fatigue, unspecified type Expected: 08/05/2024 (Approximate), Expires: 08/05/2025[facility] Work Phone: Comment on above:Expected: 08/05/2024 (Approximate), Expires: 08/05/2025Start: 83-24-8502OXLXL-19 Vaccine ( season)COVID- 19 Vaccine ( season)[facility]: 05-27-2024 End: 43-54-4186Adxrzkq encounter /05/2025 10:50 AM EST Office Visit [facility] [address] [place] [address] Inderjit Frausto, DO [address] [place] [address] [facility]: 03-11-2024 End: 80-42-0786Majdeat encounter qwuydefbj96/18/2024 10:40 AM EST Office Visit [facility] [address] [place] [address] Inderjit Frausto, DO [address] [facility] [address] [place] [address] [facility]: 45-96-9318Ebhamjlip vaccination Influenza Vaccine (#1)[facility]: 10-29-2023 [facility]: 48-89-7979VaytpocxkpnlNrtcvbldeK[facility] Health [facility]: 97-28-1844Hxrilxqa admissionK[facility]tering Health [facility]: 89-48-1120Xfxdysvv to cardiac rehabilitation programK[facility] Health [facility]: 97-42-1397KvshxmkumK[facility] Health [facility]: 10-27-2023 End: 25-30-3119EqdhwgsmgKettering Health [facility]: 22-61-4886Sfzydtwe of Coronary Artery, One Artery with Drug-eluting Intraluminal Device, Percutaneous ApproachDilation of Coronary Artery, One Artery with Drug-eluting Intraluminal Device, Percutaneous ApproachKettering Health [facility]: 10-27-2023 Fluoroscopy of Left Heart using Low Osmolar ContrastFluoroscopy of Left Heart using Low Osmolar ContrastKettering Health [facility]: 10-27-2023 Fluoroscopy of Multiple Coronary Arteries using Low Osmolar ContrastFluoroscopy of Multiple Coronary Arteries using Low Osmolar ContrastKettering Health [facility]: 21-25-3317Jhgtgqteztv of Cardiac Sampling and Pressure, Left Heart, Percutaneous ApproachMeasurement of Cardiac Sampling and Pressure, Left Heart, Percutaneous ApproachKettering Health [facility]ytart: 36-31-5045Gglaxsp referralProm[facility]ica [facility] Work Phone: Start: 90-55-0051FUZHU-19 Vaccine ( season) COVID-19 Vaccine ( season)[facility]: 85-32-2091Gvjimsujw vaccinationInfluenza Vaccine (#1)[facility]HealthStart: 90-94-0950Csaektyfyiqo vaccinationPneumococcal Vaccine(s) (65+ yrs) (1 - PCV) [facility]HealthStart: 43-33-3490Powyyoqhr for osteoporosisMetroHealthStart: 84-87-3424Ceufrfgf (RZV) Vaccine (1 of 2)Shingles (RZV) Vaccine (1 of 2) [facility]: 34-33-6093URuF/Tdap/Td Vaccines (1 - Tdap)DTaP/Tdap/Td Vaccines (1 - Tdap)[facility]: 64-88-2559Vkpqaoq + diphtheria + acellular pertussis vaccine (product)Tdap BoosterMetroHealthStart: 80-81-7892OEBCW-19 Vaccine (#1)COVID-19 Vaccine (#1)[facility]HealthStart: 1940 Basic metabolic 1999 panel - Serum or PlasmaBasic Metabolic PanelMetroHealth Start: 14-80-8766Ehqkj panelLipid PanelUnMercy Hospital: 07-31-1941Medicare Annual Wellness VisitMedicare Annual Wellness Visit (AWV) [facility]: 58-40-7761Eahfwfevs for osteoporosisBone Density ScanDelaware County HospitalComprehensive metabolic 2000 panel - Serum or PlasmaPremier HealthCT Chest WO contrastPremier HealthCT Chest WO [facility] CenterDXA Skeletal system.axial Views for bone densityPremier HealthMG Breast - bilateral ScreeningPremier HealthMR Lumbar spine WO and W contrast [facility]MR Shoulder - right WO contrastPremier HealthPatient EducationKettering Health [facility] Memorial Work Phone: Patient referralPromedica Toledo Hospital Work Phone: Supine abdominal X-rayPremier HealthXR Cervical spine Views W flexion and W extensionPremier HealthXR Thoracic spine 3 ViewsPremier Health Immunizations Immunization DateImmunizationNotesCare KtlmbrdnIbckadhr92-58-4489rtcmhwh toxoid, reduced diphtheria toxoid, and acellular pertussis vaccine, adsorbedVanessa Dave PATIENT COORDINATOR-[employer]LL VALET Work Phone: [facility] Work Phone: [phone]ppbom, high dose seasonal, preservative-freeBenjamin Philly DO Work Phone: [facility]09-12-2024Moderna COVID-19 vaccine, 12 years and older (50mcg/0.5mL)(Spikevax)Inderjit Jett DO Work Phone: [facility] Work Phone: [phone], high dose seasonal, oohnuyywbqkd-uvafVF-F Doe Álvarez Work Phone: [facility]09-11-2024influenza virus vaccine, unspecified formulationVanessa Dave PATIENT COORDINATOR-[employer] Work Phone: [facility] Work Phone: [phone] vaccine Adal Jett DO Work Phone: [facility] Work Phone: [phone]v, Seasonal, Quadrivalent, AdjuvantedDnikolas Dave PATIENT COORDINATOR-[employer] Work Phone: [facility] Work Phone: [phone] COVID-19 vaccine, 12 years and older, (30mcg/0.3mL) (Comirnaty)Inderjit Frausto DO Work Phone: [facility] Work Phone: [phone]XSYYM SYNCYTIAL VIRUS (RSV), ELIGIBLE PTS, 0.5 ML (ABRYSVO)Inderjit Frausto DO Work Phone: [facility] Work Phone: [phone] virus vaccine, unspecified formulationWilliam Jett DO Work Phone: [facility] Work Phone: [phone]kkvuwgybdi conjugate vaccine, 20-valent (PREVNAR 20)Inderjit Frausto DO Work Phone: [facility] Work Phone: [phone] vaccine recombinantWilliam Jett DO Work Phone: [facility] Work Phone: [phone]fx COVID-19 vaccine, bivalent, blue cap/grady label *Check age/dose*Inderjit Frausto DO Work Phone: [facility]09-21-2022influenza virus vaccine, split virus (incl. purified surface antigen)Branden Fraga Other [employer] Other [id number] virus vaccine, unspecified formulationDO Branden Fraga Work Phone: [facility]09-21-2022Influenza, Seasonal, Quadrivalent, AdjuvantedDyaraa Dave PATIENT COORDINATOR-[employer] Work Phone: [facility] Work Phone: [phone] virus vaccine, split virus (incl. purified surface antigen)Branden Fraga Other [place] [employer] Other [id number] virus vaccine, unspecified formulationDO Branden Fraga Work Phone: [facility]09-22-2021Seasonal trivalent influenza vaccine, adjuvanted, preservative Luigi Dave PATIENT COORDINATOR-[employer] Work Phone: [facility] Work Phone: [phone]syvusx virus vaccine, split virus (incl. purified surface antigen)Branden Fraga Other [place] [employer] Other [id number] virus vaccine, unspecified formulationDO Branden Fraga Work Phone: [facility]09-24-2019influenza virus vaccine, split virus (incl. purified surface antigen)Branden Fraga Other [place] [employer] Other [id number] virus vaccine, unspecified formulationDO Branden Fraga Work Phone: [facility]10-24-2018influenza virus vaccine, split virus (incl. purified surface antigen)Branden Fraga Other [place] [employer] Other [id number] virus vaccine, unspecified formulationDO Branden Fraga Work Phone: [facility]10-24-2018influenza, injectable, quadrivalent, contains preservativeVanessa Dave PATIENT COORDINATOR-[employer] Work Phone: [facility] Work Phone: [phone]m virus vaccine, split virus (incl. purified surface antigen)Branden Fraga Other [facility]10-21-2017influenza virus vaccine, unspecified formulationDO Branden Fraga Work Phone: [facility]10-04-2016influenza virus vaccine, split virus (incl. purified surface antigen)Branden Fraga Other [facility] Other 619198-36-8534ftohudlsw virus vaccine, unspecified formulationDO Branden Fraga Work Phone: [facility]10-04-2016influenza, high dose seasonal, preservative-freeWilliam Jett DO Work Phone: [facility] Work Phone: [phone]slpcgpgpr conjugate vaccine, 13 valent Branden Fraga Other [facility]09-24-2015influenza, high dose seasonal, preservative-freeWilliam Jett DO Work Phone: [facility] Work Phone: [phone]kjj vaccine, liveWilliam Jett DO Work Phone: [facility] Work Phone: [phone] ribamajzm-N9C1-83, preservative-free, injectableDonna Dave PATIENT COORDINATOR-[employer] Work Phone: [facility] Work Phone: Payers DatePayer CategoryPayerPolicy [id number]-pay2024Medicare supplemental policy (as second payer)[employer] Member Subscriber Plan / Payer (Effective 2023-Present) Name: Genny Barboza Relation to Subscriber: Self Name: Genny Barboza Payer ID: [place] file Group ID: Not on file Type: Not on file Address: [id number] [place] [id number] 03-71-2203Qypvsjr9.2.840.651494.1.13.56.2.7.3.860[id number] [id number] 1960Medicare [id number] 2.16840.1.868669.3.57[id number] 2.0.1.835804.3.57[id number] 2.0.1.168669.3.57[id number] 2.0.1.267609.3.57[id number] 2.0.1.106090.3.57[id number] 2.0.1.322669.3.57[id number] 2.0.1.130821.3.57[id number] 2.0.1.238495.3.57[id number] 2.0.1.024323.3.57[id number] 2.0.1.047608.3.57[id number] Health [id number] 2.16.840.1.7[id number] 2.16.840.1.594384.3.579.2.531 Social History DateTypeDetailFacilityTobacco smoking status NHISTobacco smoking consumption unknownMetroHealthStart: 03-48-5064Lko Assigned At BirthNot on fileMetroHealth Start: 12-20-2023 End: 76-69-0225Dio [facility]Nos[facility] Other Start: 74-36-0653Myu Assigned At [facility] HospitalFeSelect Medical [facility] Shawtart: 06-20-2023 End: 38-29-2149Qmrxyto smoking status NHISNever smoked tobacco (finding) [facility]: 10-27-2023 End: 74-36-2324Sxzcklo smoking status NHISEx-smoker (finding)[facility]: 43-37-5183Xmbhwwt smoking status NHISCurrent some day smokerKettering Health Troytart: 49-37-8046Xdrmcic of tobacco use Current smokerUnAdams County Regional Medical Center Work Phone: Start: 07-03-7068Xuxbthv of tobacco useCigarette SmokerUnAdams County Regional Medical Center Work Phone: Start: 11-07-2023 End: 68-73-8796Ehuvlet use and exposureSmokeless tobacco non-userUnAdams County Regional Medical Center Work Phone: Start: 11-07-2023 End: 86-12-6349Rokxxhjwh beverage intakeCurrent drinker of alcohol (finding) [facility] Work Phone: Start: 10-28-2023 End: 81-81-4869Lgrpxhmk to SARS-CoV-2 (event)Not sureUnAdams County Regional Medical CenterStart: 12-20-2023 End: 11-76-3539UccizazehAllianceHealth [facility] [place] [place] Work Phone: Start: 02-17-2022 End: 27-61-8630TkkKihioh (finding)[facility]: 34-81-6056YtvVhnjfoCfpbnpgujvCleveland Clinic [facility] Medical Equipment Procedure CodeEquipment CodeEquipment Original TextEquipment IdentifierDatesCL STENT PEDRO FRONTIER 4.0 X 18FDAStart: 07-51-3777Oxogxgg artery closure plug/patch, synthetic [id number] FDAStart: 10-27-2023 CL STENT PEDRO FRONTIER 4.0 X 18FDAStart: 54-24-5394AH STENT PEDRO FRONTIER 4.0 X 18FDAStart: 46-13-1809WT STENT PEDRO FRONTIER 4.0 X 18FDAStart: 90-70-4665MR STENT PERDO FRONTIER 4.0 X 18FDAStart: 87-38-1987JK STENT PEDRO FRONTIER 4.0 X 18 FDAStart: 99-55-0420HA STENT PEDRO FRONTIER 4.0 X 18FDAStart: 07-04-6360EH STENT PEDRO FRONTIER 4.0 X 18FDAStart: 33-25-4954HK STENT PEDRO FRONTIER 4.0 X 18FDA Start: 52-32-2715TO STENT PEDRO FRONTIER 4.0 X 18FDAStart: 11-29-3933SS STENT PEDRO FRONTIER 4.0 X 18FDAStart: 73-48-1101KX STENT PEDRO FRONTIER 4.0 X 18FDA Start: 77-80-7453BR STENT PEDRO FRONTIER 4.0 X 18FDAStart: 77-46-1428SI STENT PEDRO FRONTIER 4.0 X 18FDAStart: 18-37-9628CB STENT PEDRO FRONTIER 4.0 X 18FDA Start: 62-90-3971PF STENT PEDRO FRONTIER 4.0 X 18FDAStart: 77-95-1039KJ STENT PEDRO FRONTIER 4.0 X 18FDAStart: 76-87-4091JI STENT PEDRO FRONTIER 4.0 X 18FDA Start: 48-87-4408RW STENT PEDRO FRONTIER 4.0 X 18FDAStart: 70-85-9283GS STENT PEDRO FRONTIER 4.0 X 18FDAStart: 17-73-8917LW STENT PEDRO FRONTIER 4.0 X 18FDA Start: 77-68-8728UR STENT PEDRO FRONTIER 4.0 X 18FDAStart: 10-27-2023 Goals DatePatient GoalDesired Activity/State Functional Status UnouOhvsxdhlqtPwhfeaNiessujd39-46-2722Aovmzfzygs zdbpki587/60UnAdams County Regional Medical Center Work Phone: [phone]Iikiy signs60 01/27/2025 11:08 AM EST Haven Laureano, [facility] Work Phone: [phone]dgegjwxDelaware County Hospital Work Phone: [phone]luftakw statusPatient at Baseline [facility] Work Phone: [phone] 196-271308883197-28-4250Wseapwlwwf statusPatient at Baseline [facility] Work Phone: Mental Status YdyxPfvsoslxmgGzdzuqGegfayeh47-71-1014Jstzrsajf functionCognitive Status Patient at BaselineKettering Health [facility] Memorial Work Phone: [phone]Yemjgbtdo functionCognitive Status Patient at BaselineKettering Health Greene Memorial Work Phone: Clinical Notes 05-04-2022 to 01-28-2025 Note Date & CbkqRddaSqrvuhus10-07-7872 Evaluation + Plan note* Assessment & Plan Note - ROLAND Becerril - 01/28/2025 12:17 PM ESTAssociated Problem(s): BMI 27.0-27.9,adult Reviewed the merits of healthy lifestyle choices on overall cardiovascular health. [facility] Work Phone: [phone] 767-333711-06-2025 Miscellaneous Notes* Assessment & Plan Note - ROLAND Becerril - 01/28/2025 12:17 PM ESTAssociated Problem(s): BMI 27.0-27.9,adult Reviewed the merits of [...] OM none EF 60% documented in this [facility] Work Phone: [phone] 614-301711-06-2025 Evaluation + Plan note* Assessment & Plan Note - ROLAND Becerril - 01/28/2025 12:16 PM ESTAssociated Problem(s): Essential hypertension optimal in office [facility] Work Phone: [phone] 711-436211-06-2025 Evaluation + Plan note* Assessment & Plan Note - ROLAND Becerril - 01/28/2025 12:16 PM ESTAssociated Problem(s): Hyperlipidemia High intensity statin Due for labs this month [facility] Work Phone: [phone] 386-921911-06-2025 Evaluation + Plan note* Assessment & Plan Note - ROLAND Becerril - 01/28/2025 12:16 PM ESTAssociated Problem(s): CAD (coronary artery disease) Oct 26, 2024 Inferior STEMI pRCA PCI/Pedro 4 x 18 mm mLAD mild intramyocardial bridging O/p Diag 75% small/moderate vessel OM none EF 60% [facility] Work Phone: [phone] 452-614811-05-2025 History of Present illness Narrative* ROLAND Becerril - 01/27/2025 11:30 AM EST Chief Complaint Heart matt I am doing good Reason for Visit Routine 6-month follow-up Patient presents to the office today for outpatient follow-up for coronary artery disease and secondary prevention. Last evaluated in clinic by myself October 2024. At that time I had transition Lopressor over to carvedilol due to fatigability, following travel to [place] she had some lower extremity edema and [...] Wt 64.9 kg (143 lb) BMI 27.02 kg/m Smoking Status Former BSA 1.67 m Physical Exam Vitals and nursing note [...] Daily clopidogrel (PLAVIX) 75 mg, oral, Daily (0630) losartan (COZAAR) 50 mg, oral, 2 times daily multivit with minerals/lutein (MULTIVITAMIN 50 PLUS ORAL) 1 tablet, Daily nitroglycerin (NITROSTAT) 0.4 mg, Every 5 min PRN omeprazole (PRILOSEC) 40 mg, Daily before breakfast polyethylene glycol (Glycolax, Miralax) 17 gram/dose powder MIX 17 GM IN DRINK AND TAKE DAILY NEEDED FOR CONSTIPATION Assessment: CAD (coronary artery disease) Oct 26, 2024 Inferior STEMI pRCA PCI/[place]illon 4 x 18 mm mLAD mild intramyocardial [...] new symptoms arise. Dr. Frausto 6 months Vanessa Dave MSN, PATIENT COORDINATOR-BELL VALET, PMHNP-[facility] [place], [place] Please excuse any errors in grammar or translation related to this dictation. Voice recognition software was utilized to prepare this document. documented in this [facility] Work Phone: [phone] 584-633311-05-2025 Instructions* Patient Instructions* ROLAND Becerril - 01/27/2025 11:30 [...] through Care Everywhere. * Preventing Falls ED (Italian) documented in this encounterDelaware County Hospital Work Phone: 1([phone]) 246-275109-01-2025 Discharge [place] [id number] Discharge Summary Signed Patient: Genny Barboza MR#: [id number] : 1940 Acct:[id number] Age/Sex: 84 / F Adm Date: 5 Loc: Room: [address] [place] [address]: Mendez Lambert MD Copies to: DO Mendez Soni MD~ Providers Date of Discharge: 11/23/24 Discharging Provider: Mendez Lambert Primary Care Provider: Branden Fraga Discharge Diagnosis (1) Constipation: Final Diagnosis Final Discharge Diagnosis: 1. Constipation 2. Irritable bowel syndrome who was on dicyclomine Summary Hospital Course Hospital course: Patient is 84-year-old female who had history of colon cancer came to the emergency department withabdominal pain and also constipation. She was in outside hospital with a similar reason and she wassent with magnesium citrate but did not get [...] She was advised to take the medicine asneeded basis. Most likely her constipation was due to anticholinergic effect of dicyclomine. On the day of discharge patient was at baseline. Vital signs were stable. Physical exam was benign.The details of the hospital stay, hospital course, lab data, imaging studies, and consultants' recommendations can be found in the EHR of [facility]. The patient left hospital appropriately in stable condition. Patient has follow-up appointment with PCP in 7 days from the dayof discharge. Condition Condition at Discharge: Stable Time [...] Continuity of Care Document Health Concerns: A [facility] screening has identified you as FRAIL or [...] Four Ways to Beat the Frailty Risk https://www.[facility] [place]/health/lduumspx-hig-ilnjzyvkpd/s dbn-eluoqa-cymi-ywmf-we-ukrd-tiq-avqbume-iaqx Exam Physical Exam Vital Signs: Temp Pulse Resp BP Pulse Ox O2 Del Method 98.0 F 71 18 118/76 100 Room Air 11/23/24 09:00 11/23/24 09:00 11/23/24 09:00 11/23/24 09:00 11/23/24 09:00 11/23/24 09:00 Diagnostic Studies Completed and Pending Studies Labs on day of discharge: 11/22/24 20:09: Urine Color Colorless, Urine Appearance Clear, Urine pH 5.5, Ur Specific [place] 1.005, Urine Protein Negative, Urine Glucose (UA) [...] % (Auto) 63.5, Lymph % (Auto) 20.6, [place] % (Auto) 13.9, Eos % (Auto) 0.9, Baso % (Auto) 1.1, Nucleat RBC Rel Count 0.1, Neut # (Auto) 4.8, Lymph # (Auto) 1.5, [place] # (Auto) 1.0 H, Eos # (Auto) [...] Mendez Lambert MD 11/23/24 1324 Signed By: 11/23/24 1327 [facility]09-01-2025 History and physical note Author Benjamin Elias [facility] HealthNote Date/TimeSeptember 2024 1:05am [place] [address] Hospitalist H&P Signed Patient: Genny Barboaz MR#: [id number] : 1940 Acct:[id number] Age/Sex: 84 / F Adm Date: 5 Loc: Room: [address] [place] [address] Type: ADM INOo Attending Dr: Benjamin Elias MD Copies to: MD Branden Bai DO~ HPI DATE OF EXAMINATION: 11/22/24 HISTORY OF [...] half. She was prescribed MiraLAX, suppositories by [facility] which she took with no [...] no impaction. CT scan abdomen done in [place] about a week ago showed no other [...] cancer resection Colonoscopy July 2023 most recent [facility] Medical History Abdominal distention Compression fx, lumbar [...] colon cancer H/O colonoscopy (~07/2023) 1996, 2000, 2004, 2006, 2011, 2014, 07/2023 Family History Father [...] % (Auto) 20.6 % (.) 11/22/24 18:22 [place] % (Auto) 13.9 % (.) 11/22/24 18:22 Eos % (Auto) 0.9 % (.) 11/22/24 18:22 Baso % (Auto) 1.1 % (.) 11/22/24 18:22 Nucleat RBC Rel Count 0.1 /100 WBC (0-0.5) 11/22/24 18:22 Neut # (Auto) 4.8 x10E3/uL (1.8-7.7) 11/22/24 18:22 Lymph # (Auto) 1.5 x10E3/uL (1.00-4.8) 11/22/24 18:22 [place] # (Auto) 1.0 x10E3/uL (0.0-0.8) H 11/22/24 [...] pH 5.5 (5.0-9.0) 11/22/24 20:09 Ur Specific [place] 1.005 (1.001-1.030) 11/22/24 20:09 Urine Protein Negative [...] 1 Documented By: Benjamin Elias MD 11/23/24 005 Signed By: <Electronically signed by Benjamin Elias MD> 11/23/24104 [facility] Work Phone: 1(907) 926-998809-01-2025 [place] [address] Hospitalist H&P Signed Patient: Genny Barboza MR#: [id number] : 1940 Acct:[id number] Age/Sex: 84 / F Adm Date: 5 Loc: Room: [address] [place] [address] Type: ADM INOo Attending Dr: Benjamin Elias [...] half. She was prescribed MiraLAX, suppositories by [place] [facility] which she took with no result. [...] no impaction. CT scan abdomen done in [place] about a week ago showed no other [...] cancer resection Colonoscopy July 2023 most recent [facility] Medical History Abdominal distention Compression fx, lumbar [...] % (Auto) 20.6 % (.) 11/22/24 18:22 [place] % (Auto) 13.9 % (.) 11/22/24 18:22 Eos % (Auto) 0.9 % (.) 11/22/24 18:22 Baso % (Auto) 1.1 % (.) 11/22/24 18:22 Nucleat RBC Rel Count 0.1 /100 WBC (0-0.5) 11/22/24 18:22 Neut # (Auto) 4.8 x10E3/uL (1.8-7.7) 11/22/24 18:22 Lymph # (Auto) 1.5 x10E3/uL (1.00-4.8) 11/22/24 18:22 [place] # (Auto) 1.0 x10E3/uL (0.0-0.8) H 11/22/24 [...] pH 5.5 (5.0-9.0) 11/22/24 20:09 Ur Specific [place] 1.005 (1.001-1.030) 11/22/24 20:09 Urine Protein Negative [...] By: Benjamin Elias MD 11/23/2457 Signed By: 11/23/24 010 [facility]08-13-2025 Evaluation note* Diagnosis Onset Date Resolution Status [...] 29, 2024 11:25amCompression fracture of T11 vertebraacuteOct2024 11:25am [facility] Work Phone: 1([phone]) 766-471408-13-2025 Evaluation note* Diagnosis Onset Date Resolution Status [...] December 29, 2024 11:25amCompression fracture of T11 vertebraacuteOctober 2024 11:25amConstipationacuteOctober 2024 11:18am [facility] Work Phone: 1([phone] 605-940308-13-2025 Evaluation note* Diagnosis Onset Date Resolution Status [...] December 29, 2024 11:25amCompression fracture of T11 vertebraacuteOctober 2024 11:25amIrritable bowel syndrome with constipationacuteOctober 2024 11:18am [facility] Work Phone: [phone] 616-187208-12-2025 Evaluation + Plan note* Assessment & Plan Note - ROLAND Becerril - 11/03/2024 2:22 PM EDTAssociated Problem(s): Localized edema After flight to [place] has noticed RLE pedal edema and calf pain. Will get USN to rule out DVT [facility] Work Phone: [phone]) 719-776208-12-2025 Miscellaneous Notes* Assessment & Plan Note - ROLAND Becerril - 11/03/2024 2:22 PM EDTAssociated Problem(s): Localized edema After flight to [place] has noticed RLE pedal edema and calf pain. Will get USN to rule out DVT documented in this [facility] Work Phone: [phone]) 206-115508-12-2025 History of Present illness Narrative* ROLAND Becerril [...] home. Otherwise, she just recently traveled to [place] and has noted some right pedal edema, [...] peripheral pulses. No open wounds.Recent travel to [place]. Plan: Through informed decision making process incorporating [...] contact the office if new symptoms arise. CUSTOMER ACCOUNT MANAGER as scheduled Vanessa Dave MSN, PATIENT COORDINATOR-[employer], PMHNP-[facility] [place], [place] Please excuse any errors in grammar or translation related to this dictation. Voice recognition software was utilized to prepare this document. documented in this [facility] Work Phone: 1(768) 128-488608-12-2025 Instructions* Patient Instructions* ROLAND Becerril - 11/03/2024 [...] contact the office if new symptoms arise. CUSTOMER ACCOUNT MANAGER as scheduled documented in this [facility] Work Phone: [phone]) 842-921007-09-2025 Evaluation + Plan note* Assessment & Plan [...] we will transition Lopressor over to carvedilol. [facility] Work Phone: [phone]) 845-309107-09-2025 Miscellaneous Notes* Assessment & Plan Note - [...] andtransitioned over to carvedilol. documented in this encounterDelaware County Hospital Work Phone: 1([phone]) 960-739107-09-2025 Evaluation + Plan note* Assessment & Plan Note - ROLAND Becerril - 09/30/2024 8:25 AM EDTAssociated Problem(s): BMI 26.0-26.9,adult Reviewed the merits of healthy lifestyle choices on overall cardiovascular health. [facility] Work Phone: 1([phone]) 338-485407-09-2025 Evaluation + Plan note* Assessment & Plan Note - ROLAND Becerril - 09/30/2024 8:25 AM EDTAssociated Problem(s): Essential hypertension Her dose of Lopressor was down titrated due to fatigability. Blood pressure is borderline in the office. She was noted to have improvement in fatigue with down titration of Lopressor, will discontinue andtransitioned over to carvedilol. [facility] Work Phone: 1([phone]) 931-956607-08-2025 Evaluation note* Diagnosis Onset Date Resolution Status Admit Date Lung nodule acuteJuly 2024 1:13pmCervical spondylosis with radiculopathyacuteAugust 2024 1:56pmNeck painacuteAugust 2024 1:56pmAbdominal distentionacute November 16, 2024 2:40pmAbdominal painacuteAugust 2024 2:40pmCompression fx, lumbar spineacuteAugust 2024 2:40pmInternal derangement of right shoulderacuteAugust 2024 11:26amRight shoulder strainacuteAugust 2024 11:26am [facility] Work Phone: 1([phone]) [phone] Evaluation note* Diagnosis Onset Date Resolution Status Admit Date Lung nodule acuteJuly 2024 1:13pmCervical spondylosis with radiculopathyacuteAugust 2024 1:56pmNeck painacuteAugust 2024 1:56pmAbdominal distentionacute November 16, 2024 2:40pmAbdominal painacuteAugust 2024 2:40pmCompression fx, lumbar spineacuteAugust 2024 2:40pmInternal derangement of right shoulderacuteAugust 2024 11:26amRight shoulder strainacuteAugust 2024 11:26amCervical radiculopathyacuteAugust 2024 9:58amCompression fracture of L1 lumbar vertebraacuteAugust 2024 9:58amRight lumbar radiculopathyacuteAugust 2024 9:58amRight shoulder strainacuteAugust 2024 9:58am [facility] Work Phone: 1([phone]) 633-269707-08-2025 Evaluation note* Diagnosis Onset Date Resolution Status Admit Date Lung nodule acuteJuly 2024 1:13pmCervical spondylosis with radiculopathyacuteAugust 2024 1:56pmNeck painacuteAugust 2024 1:56pmAbdominal distentionacute November 16, 2024 2:40pmAbdominal painacuteAugust 2024 2:40pmCompression fx, lumbar spineacuteAugust 2024 2:40pmInternal derangement of right shoulderacuteAugust 2024 11:26amRight shoulder strainacuteAugust 2024 11:26amCervical radiculopathyacuteAugust 2024 9:58amCompression fracture of L1 lumbar vertebraacuteAugust 2024 9:58amRight lumbar radiculopathyacuteAugust 2024 9:58amRight shoulder strainacuteAugust 2024 9:58amAcute hypokalemiaacuteAugust 2024 10:23pmConstipationacute November 22, 2024 10:23pmHistory of colon canceracuteAugust 2024 10:23pm Primary hypertensionacuteAugust 2024 10:23pm [facility] Work Phone: 1(442) 901-113307-08-2025 Evaluation note* Diagnosis Onset Date Resolution Status Admit Date Lung nodule acuteJuly 2024 1:13pmCervical spondylosis with radiculopathyacuteAugust 2024 1:56pmNeck painacuteAugust 2024 1:56pmAbdominal distentionacute November 16, 2024 2:40pmAbdominal painacuteAugust 2024 2:40pmCompression fx, lumbar spinedeletedAugust 2024 2:40pmInternal derangement of right shoulderacuteAugust 2024 11:26amRight shoulder strainacuteAugust 2024 11:26amCompression fracture of L1 lumbar vertebraacuteAugust 2024 9:58amRight lumbar radiculopathyacuteAugust 2024 9:58amRight shoulder strainacuteAugust 2024 9:58amCervical radiculopathydeletedAugust 2024 9:58amPrimary hypertensionacuteAugust 2024 10:23pmAcute hypokalemia resolvedAugust 2024 10:23pmConstipationresolvedAugust 2024 10:23pm History of colon cancerresolvedAugust 2024 10:23pm [facility] Work Phone: 1(838) 266-463307-08-2025 Evaluation note* Diagnosis Onset Date Resolution Status Admit Date Lung nodule acuteJuly 2024 1:13pmCervical spondylosis with radiculopathyacuteAugust 2024 1:56pmNeck painacuteAugust 2024 1:56pmAbdominal distentionacute November 16, 2024 2:40pmAbdominal painacuteAugust 2024 2:40pmCompression fx, lumbar spinedeletedAugust 2024 2:40pmInternal derangement of right shoulderacuteAugust 2024 11:26amRight shoulder strainacuteAugust 2024 11:26amCompression fracture of L1 lumbar vertebraacuteAugust 2024 9:58amRight lumbar radiculopathyacuteAugust 2024 9:58amRight shoulder strainacuteAugust 2024 9:58amCervical radiculopathydeletedAugust 2024 9:58amPrimary hypertensionacuteAugust 2024 10:23pmAcute hypokalemia resolvedAugust 2024 10:23pmConstipationresolvedAugust 2024 10:23pm History of colon cancerresolvedAugust 2024 10:23pmAlternating constipation and diarrheaacuteSeptember 2024 1:22pmAbdominal painacuteSeptember 2024 11:19amCervical spondylosisacuteSeptember 2024 11:19amCompression fracture of L1 lumbar vertebraacuteSeptember 2024 11:19am [facility] Work Phone: 1(253) 570-427707-08-2025 Evaluation note* Diagnosis Onset Date Resolution Status Admit Date Lung nodule acuteJuly 2024 1:13pmCervical spondylosis with radiculopathydeletedAugust 2024 1:56pmNeck paindeletedAugust 2024 1:56pmAbdominal painacute November 16, 2024 2:40pmAbdominal distentiondeletedAugust 2024 2:40pm Compression fx, lumbar spinedeletedAugust 2024 2:40pmInternal derangement of right shoulderacuteAugust 2024 11:26amRight shoulder strainacuteAugust 2024 11:26amCompression fracture of L1 lumbar vertebraacuteAugust 2024 9:58amRight lumbar radiculopathyacuteAugust 2024 9:58amRight shoulder strainacuteAugust 2024 9:58amCervical radiculopathydeletedAugust 2024 9:58amPrimary hypertensionacuteAugust 2024 10:23pmAcute hypokalemia resolvedAugust 2024 10:23pmConstipationresolvedAugust 2024 10:23pm History of colon cancerresolvedAugust 2024 10:23pmAlternating constipation and diarrheaacuteSeptember 2024 1:22pmAbdominal painacuteSeptember 2024 11:19amASHD (arteriosclerotic heart disease)acuteSeptember 2024 11:19amCervical spondylosisacuteSeptember 2024 11:19amCompression fracture of L1 lumbar vertebraacuteSeptember 2024 11:19amHistory of fragility fractureacuteSeptember 2024 11:19amIBS (irritable bowel syndrome)acute December 03, 2024 11:19amInternal derangement of right shoulderacuteSeptember 2024 11:19amLung noduleacuteSeptember 2024 11:19amPrimary hypertensionacuteSeptember 2024 11:19amInternal derangement of right shoulderacuteSeptember 2024 11:16amRight shoulder strainacuteSeptember 2024 11:16am [facility] Work Phone: 1(128) 406-287407-08-2025 History of Present illness Narrative* Vanessa Foreman Dave, PATIENT COORDINATOR-[employer] - 09/29/2024 2:30 PM EDT Chief Complaint [...] contact the office if new symptoms arise. CUSTOMER ACCOUNT MANAGER one month Vanessa Dave MSN, PATIENT COORDINATOR-[employer], PMHNP-[facility] [place], [place] Please excuse any errors in grammar or translation related to this dictation. Voice recognition software was utilized to prepare this document. [facility] Work Phone: 1(249) 887-733907-08-2025 Instructions* Patient Instructions* ROLAND Becerril - 09/29/2024 [...] contact the office if new symptoms arise. CUSTOMER ACCOUNT MANAGER one month documented in this [facility]UnAd[facility] Work Phone: 1(875) 572-367605-28-2025 Evaluation note* Diagnosis Onset Date Resolution Status Admit Date Cervical spondylosis acuteMay 2024 1:30pmNeck painacuteMay 2024 1:30pmSeborrheic dermatitisacuteMay 2024 1:30pmLung noduleacuteJuly 2024 1:13pm Cervical spondylosis with radiculopathyacuteAugust 2024 1:56pmNeck pain acuteAugust 2024 1:56pm [facility] Work Phone: 1(398) 298-588905-15-2025 Evaluation + Plan note* Assessment & Plan [...] in from the parking lot without concerns. [facility] Work Phone: 1(160) 935-640605-15-2025 Evaluation + Plan note* Assessment & Plan Note - ROLAND Becerril - 08/06/2024 9:41 AM EDTAssociated Problem(s): Fatigue Presents to the office today with complaints of ongoing fatigability and having no energy . Symptoms started close to 4 weeks ago. Her prior angina symptom was a strange chest sensation and she denies any reoccurrence. [facility] Work Phone: 1(219) 135-564605-15-2025 Miscellaneous Notes* Assessment & Plan Note - [...] OM none EF 60% documented in this [facility] Work Phone: 1(592) 663-412905-15-2025 Evaluation + Plan note* Assessment & Plan Note - ROLAND Becerril - 08/06/2024 9:40 AM EDTAssociated Problem(s): BMI 27.0-27.9,adult Reviewed the merits of healthy lifestyle choices on overall cardiovascular health. [facility] Work Phone: 1(251) 775-213405-15-2025 Evaluation + Plan note* Assessment & Plan Note - ROLAND Becerril - 08/06/2024 9:40 AM EDTAssociated Problem(s): Essential hypertension Optimal in office [facility] Work Phone: 1(179) 864-177205-15-2025 Evaluation + Plan note* Assessment & Plan Note - ROLAND Becerril - 08/06/2024 9:40 AM EDTAssociated Problem(s): Hyperlipidemia High intensity statin [facility] Work Phone: 1(322) 457-520405-15-2025 Evaluation + Plan note* Assessment & Plan Note - ROLAND Becerril - 08/06/2024 9:40 AM EDTAssociated Problem(s): CAD (coronary artery disease) Oct 26, 2024 Inferior STEMI pRCA PCI/Pedro 4 x 18 mm mLAD mild intramyocardial bridging O/p Diag 75% small/moderate vessel OM none EF 60% [facility] Work Phone: 1(518) 306-958605-14-2025 History of Present illness Narrative* Vanessa Dave PATIENT COORDINATOR-[employer] - 08/05/2024 2:00 PM EDT Chief Complaint [...] her angina symptom on the day of GA was just a strange sensation, denies any [...] contact the office if new symptoms arise. CUSTOMER ACCOUNT MANAGER one month Vanessa Dave MSN, PATIENT COORDINATOR-[employer], PMHNP-[facility] [place], [place] Please excuse any errors in grammar or translation related to this dictation. Voice recognition software was utilized to prepare this document. [facility] Work Phone: 1(762) 758-491505-14-2025 Instructions* Patient Instructions* ROLAND Becerril - 08/05/2024 [...] contact the office if new symptoms arise. CUSTOMER ACCOUNT MANAGER one month documented [facility]Del[facility] Work Phone: 1(990) 505-999004-28-2025 Evaluation note* Diagnosis Onset Date Resolution Status Admit Date Diarrhea acuteApril 2024 10:57amGastroesophageal reflux disease with esophagitis without hemorrhageacuteApril 2024 10:57amHistory of colon canceracuteApril 2024 10:57amIBS (irritable bowel syndrome)acuteApril 2024 10:57am Intermittent abdominal painacuteApril 2024 10:57am [facility] Work Phone: 1(369) [phone] Evaluation note* Diagnosis Onset Date Resolution Status Admit Date Diarrhea acuteApril 2024 10:57amGastroesophageal reflux disease with esophagitis without hemorrhageacuteApril 2024 10:57amHistory of colon canceracuteApril 2024 10:57amIBS (irritable bowel syndrome)acuteApril 2024 10:57am Intermittent abdominal painacuteApril 2024 10:57amCervical spondylosis acuteMay 2024 1:30pmNeck painacuteMay 2024 1:30pmSeborrheic dermatitisacuteMay 2024 1:30pm [facility] Work Phone: 1([phone]) 210-497004-28-2025 Evaluation note* Diagnosis Onset Date Resolution Status Admit Date Diarrhea acuteApril 2024 10:57amGastroesophageal reflux disease with esophagitis without hemorrhageacuteApril 2024 10:57amHistory of colon canceracuteApril 2024 10:57amIBS (irritable bowel syndrome)acuteApril 2024 10:57am Intermittent abdominal painacuteApril 2024 10:57amCervical spondylosis acuteMay 2024 1:30pmNeck painacuteMay 2024 1:30pmSeborrheic dermatitisacuteMay 2024 1:30pmLung noduleacuteJuly 2024 1:13pm [facility] Work Phone: 1(864) 392-345303-05-2025 History of Present illness Narrative* Inderjit Frausto, - 05/27/2024 10:50 AM EST Subjective Genny Barboza is a 83 y.o. female Chief Complaint Follow-up; Coronary Artery Disease 83-year-old female returns for follow-up she is doing very well, she has traveled to [place] in [place] and is getting in 12,000 steps daily. [...] type, unspecified whether angina present, unspecified whether [place] or transplanted heart Follow Up In Cardiology [...] exam, discussion and plan. documented in this [facility] Work Phone: 1(152) 486-957003-05-2025 Instructions* Patient Instructions* Jacque Quesada RN - [...] Provided instructions on exercise. documented in this [facility] Work Phone: 1(258) 177-228202-18-2025 Evaluation note* Diagnosis Onset Date Resolution Status Admit Date Lung nodule acuteFebruary 2024 1:24pmRotator cuff arthropathy of right shoulderacute May 12, 2024 1:24pmRight shoulder painnoneactiveFebruary 2024 1:24pmDiarrheaacuteApril 2024 10:57amGastroesophageal reflux disease with esophagitis without hemorrhageacuteApril 2024 10:57amHistory of colon canceracuteApril 2024 10:57amIBS (irritable bowel syndrome)acuteApril 2024 10:57amIntermittent abdominal painacuteApril 2024 10:57am [facility] Work Phone: 1(169) 902-297812-16-2024 Evaluation note* Diagnosis Onset Date Resolution Status Admit Date ASHD (arteriosclerotic heart disease) acuteDecember 2023 3:47pmHypercholesterolemiaacuteDecember 2023 3:47pmIBS (irritable bowel syndrome)acuteDecemb2023 3:47pmLung nodule acuteDecember 2023 3:47pmMedicare annual wellness visit, subsequentacute March 09, 2024 3:47pmNicotine addictionacuteDecember 2023 3:47pm Primary hypertensionacuteDemb2023 3:47pmScreening mammogram for breast canceracuteDecember 2023 3:47pmDiarrheaacuteDecember 2023 1:00pmFecal urgencyacuteDecember 2023 1:00pmGastroesophageal reflux disease with esophagitis without hemorrhageacuteDecember 2023 1:00pm History of colon canceracuteDecember 2023 1:00pmHistory of colon resection acuteDecember 2023 1:00pmIBS (irritable bowel syndrome)acuteDecember 2023 1:00pmIntermittent abdominal painacuteDecember 2023 1:00[address] CT scan of lungacuteDecember 2023 10:33amLung noduleacuteFebruary 2024 1:24pmRotator cuff arthropathy of right shoulderacuteFebruary 2024 1:24pm Right shoulder painnoneactiveFebruary 2024 1:24pm [facility] Work Phone: 1(397) [phone] History of Present illness Narrative* Inderjit Frausto, [...] type, unspecified whether angina present, unspecified whether [place] or transplanted heart 8. Former smoker 9. [...] exam, discussion and plan. documented in this [facility] Work Phone: 1(950) 110-205509-27-2024 Instructions* Patient Instructions* Jacque Quesada RN - [...] pill each day after. documented in this [facility] Work Phone: 1(825) 378-564908-15-2024 History of Present illness Narrative* Inderjit Frausto, [...] type, unspecified whether angina present, unspecified whether [place] or transplanted heart 2. History of PTCA [...] exam, discussion and plan. [facility] Work Phone: 1(399) 227-538808-15-2024 Instructions* Patient Instructions* Kacy Norris LPN - [...] instructions on dietary changes. 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 Currently on RA, on ASA, Brilinta, BB, statin, ROBIN. Review of Systems Constitutional Constitutional: Reports as per HPI Cardiovascular Cardiovascular: Reports as per HPI and Reports chest pain at rest [facility] Medical History Lung nodule CT: [...] <Electronically signed by Sobia Okeefe MD> 10/28/232054 [facility] Work Phone: 1(989) [phone] Progress note Author W Jett [facility] October 28, 2023 11:54amNote Date/TimeAugust 2023 11:[address] [address] Cardiology Progress Note Signed Patient: Genny Barboza MR#: [id number] : 1940 Acct:[id number] Age/Sex: 83 / F Adm Date: 4 Loc: Room: 3L2052-6 Type: ADM IN Attending Dr: Reji Frausto [...] nurse practitioner; appropriateupstream antiplatelet and Antithrombin therapies administeredunder my direction, patient arrived in Child Psychologist at 1756 and underwent primary PCI at [...] critical care time were devoted to ER staff,Child Psychologist staff, nursing staff, patient and family both pre and post procedurally. Interim evaluation 10/28/2023: Patient is stable, awake, alert and oriented without distress, maintaining sinus rhythm and hemodynamically stable. Echo at bedside reveals preserved left ventricular function. Right groin site is well- healed no evidence of hematoma; troponin 23,338 this [...] 24 129/58 L 95 Room Air 10/28/23 09:10/28/23 10:10/28/23 10:10/28/23 10:10/28/23 10:10/28/23 10:00 Const General: [...] % (Auto) 63.6 Lymph % (Auto) 25.7 [place] % (Auto) 8.7 Eos % (Auto) 0.7 Baso % (Auto) 1.3 Nucleat RBC Rel Count 0.1 Neut # (Auto) 5.5 Lymph # (Auto) 2.2 [place] # (Auto) 0.7 Eos # (Auto) 0.1 [...] Troponin I High Sens 10.2 6295.7 H* 09547.3 H* B-Natriuretic Peptide 124.0 H Total Protein [...] % (Auto) 68.0 Lymph % (Auto) 20.4 [place] % (Auto) 10.2 Eos % (Auto) 0.5 Baso % (Auto) 0.9 Nucleat RBC Rel Count 0.1 Neut # (Auto) 5.7 Lymph # (Auto) 1.7 [place] # (Auto) 0.9 H Eos # (Auto) [...] Total Creatine Kinase Troponin I High Sens 80443.9 H* 82212.0 H* 60627.4 H* B-Natriuretic Peptide Total Protein Albumin Globulin [...] signed by Reji Frausto DO> 10/28/23 1154 [facility] Work Phone: 1([phone]) 278-424708-04-2024 History and physical note Author Reji Frausto [facility] October 27, 2023 6:21pmNote Date/TimeAugust 2023 5:51pm[place] [address] Cardiology H&P Signed Patient: Genny Barboza MR#: [id number] : 1940 Acct:[id number] Age/Sex: 83 / F Adm Date: 4 Loc: CL Room: Type: [facility] Attending Dr: Reji Frausto DO Copies to: [...] nurse practitioner; appropriateupstream antiplatelet and Antithrombin therapies administeredunder my direction, patient arrived in Child Psychologist at 1756 and underwent primary PCI at [...] critical care time were devoted to ER staff,Child Psychologist staff, nursing staff, patient and family both pre and post procedurally. Review of Systems Review of Systems All other systems reviewed & are negative unless noted below or in HPI Constitutional Constitutional: Reports as per HPI Cardiovascular Cardiovascular: Reports as per HPI and Reports chest pain at rest [facility] Medical History Lung nodule CT: [...] (sod picosulf-mag ox-citric ac) 175 ml PO DAILYBowel Prep 2 doses #350 mL 07/05/23 [Rx] [...] x10E3/uL Lymph # (Auto) 2.2 (1.00-4.8) x10E3/uL [place] # (Auto) 0.7 (0.0-0.8) x10E3/uL Eos # [...] results cardiology: sinus rhythm EKG shows: bradycardia GA, pacemaker, normal Myocardial infarction: inferior GA (acute or recent) A&P - Cardiology (1) ST elevation myocardial infarction (STEMI) of inferior wall: Code(s): I21.19 - ST elevation (STEMI) myocardial infarction involving other coronary artery of inferior wall Plan Proceed with emergency cath and PCI Documented By: Reji Frausto DO 10/27/23 0979 Signed By: <Electronically signed by Reji Frausto DO> 10/27/23 3557 [facility] Work Phone: 1(492) 545-493308-04-2024 [facility]2024 [facility]-2024 Procedure note [facility]01-30-2024 Evaluation note* Encounter Date Diagnosis Assessment Notes Treatment Notes Treatment Clinical Notes Mar, Primary hypertension (ICD-10 - I 10) [facility] Other 01-29-2024 Evaluation note* Encounter Date Diagnosis Assessment Notes Treatment Notes Treatment Clinical Notes Mar, Lung nodule (ICD-10 - R91.1) [facility] Other 01-24-2024 Evaluation note* Encounter Date Diagnosis Assessment Notes Treatment Notes Treatment Clinical Notes Mar, Lung mass (ICD-10 - R91.8) [facility] Other 01-19-2024 Evaluation note* Encounter Date Diagnosis Assessment Notes Treatment Notes Treatment Clinical Notes Mar, Fall, initial encounter (ICD-10 - W19.XXXA) She denies CP, DASILVA, palpitations or lightheadedness Tripped over her shoe laces Fall precautions Mar,ight arm pain (ICD-10 - M79.601)Not sure how she landed. Ice, heat Mar,ontusion of right upper extremity, initial encounter (ICD-10 - S40.021A) [facility] Other 01-15-2024 Evaluation note* Encounter Date Diagnosis Assessment Notes Treatment Notes Treatment Clinical Notes Mar, Left lower quadrant abdominal pa in (ICD-10 - R10.32) Mar,iarrhea, unspecified type (ICD-10 - R19.7) [facility] Other 01-08-2024 Evaluation note* Encounter Date Diagnosis Assessment Notes Treatment Notes Treatment Clinical Notes Mar, Irritable bowel syndrome without diarrhea (ICD-10 - K58.9) [facility] Other 01-02-2024 Evaluation note* Encounter Date Diagnosis Assessment Notes Treatment Notes Treatment Clinical Notes Mar, Diarrhea, unspecified type (ICD- 10 - R19.7) Diet instructions. Avoid dairy products and juice drinks. Increase dietary fiber Initiate artificial fiber substitute: Metamucil or gummy fiber Mar,rimary hypertension (ICD-10 - I10)This patient is instructed to consume a healthy, low-fat, low-salt diet. They are also encouraged to continue exercise to achieve/maintain a normal BMI. 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 Unlikely represents recurrence but if bowel habits don't resolve, would refer for colonoscopy to exclude colitis [facility] Other 12-21-2023 Evaluation note* Encounter Date Diagnosis Assessment Notes Treatment Notes Treatment Clinical Notes Feb, Gastroesophageal ref lux disease with esophagitis without hemorrhage (ICD-10 - K21.00) [facility] Other 11-28-2023 Evaluation note* Encounter Date Diagnosis Assessment Notes Treatment Notes Treatment Clinical Notes Jan, Dysuria (ICD-10 - R30.0) [facility] Other 11-17-2023 Evaluation note* Encounter Date Diagnosis [...] reviewed and amended by provider signed below. Jan,rimary hypertension (ICD-10 - I10)This patient is instructed to consume a healthy, low-fat, low-salt diet. They are also encouraged to continue exercise to achieve/maintain a normal BMI. Jan,Lumbar spondylosis (ICD-10 - M47.816)The patient is instructed to avoid bending, twisting or lifting. They are to use intermittent heat and ice as needed. They may schedule a massage or gentle manipulation. They may safely use Tylenol as needed. Jan,ulmonary nodule (ICD-10 - R91.1)Resolved after several scans No further scans necessary Jan,astroesophageal reflux disease with esophagitis without hemorrhage (ICD-10 - K21.00)Diet instructions: Smaller portions, avoid eating and laying flat, avoid eating or drinking prior to bedtime. Weight loss. INitiate PPI and take for 3mo after which can change to Pepcid Jan,Nicotine dependence, cigarettes, in remission (ICD-10 - F17.211) Contionued abstinence Jan,Screening mammogram for breast cancer (ICD-10 - Z12.31)Instructed patient on monthly SBE and yearly mammograms. [facility] Other 06-29-2023 Evaluation note* Encounter Date Diagnosis Assessment Notes Treatment Notes Treatment Clinical Notes Aug, Primary hypertension (ICD-10 - I 10) [facility] Other 06-05-2023 Evaluation note* Encounter Date Diagnosis [...] N/V, change in bowel/bladder function or fever Aug,Lumbar spondylosis (ICD-10 - M47.816)Stretching daily, avoid lifting, bending or twisting. Aug,rimary hypertension (ICD-10 - I10)This patient is instructed to consume a healthy, low-fat, low-salt diet. They are also encouraged to continue exercise to achieve/maintain a normal BMI. Patient is instructed on home BP measurements: - rest for 5 minutes w/o talking- positioned w/ feeton floor and arm supported- average best 2/3 readings w/ goal < 135-85 [facility] Other 06-02-2023 Evaluation note* Encounter Date Diagnosis Assessment Notes Treatment Notes Treatment Clinical Notes Aug, Dysuria (ICD-10 - R30.0) [facility] Other 04-17-2023 Evaluation note* Encounter Date Diagnosis Assessment Notes Treatment Notes Treatment Clinical Notes Jun, Primary hypertension (ICD-10 - I 10) This patient is instructed to consume a healthy, low-fat, low-salt diet. They are also encouraged to continue exercise to achieve/maintain a normal BMI. Jun,Nicotine dependence, cigarettes, in remission (ICD-10 - F17.211) Continue abstinence [facility] Other 03-21-2023 Evaluation note* Encounter Date Diagnosis Assessment Notes Treatment Notes Treatment Clinical Notes May, Primary hypertension (ICD-10 - I 10) [facility] Other 03-20-2023 Evaluation note* Encounter Date Diagnosis Assessment Notes Treatment Notes Treatment Clinical Notes May, Primary hypertension (ICD-10 - I 10) [facility] Other 02-28-2023 Evaluation note* Encounter Date Diagnosis Assessment Notes Treatment Notes Treatment Clinical Notes Apr, Primary hypertension (ICD-10 - I 10) [facility] Other 02-27-2023 Evaluation note* Encounter Date Diagnosis Assessment Notes Treatment Notes Treatment Clinical Notes Apr, Primary hypertension (ICD-10 - I 10) This patient is instructed to consume a healthy, low-fat, low-salt diet. They are also encouraged to continue exercise to achieve/maintain a normal BMI. Monitor at home and update office in couple days Apr,astroesophageal reflux disease with esophagitis without hemorrhage (ICD-10 - K21.00)Diet instructions: Smaller portions, avoid eating and laying flat, avoid eating or drinking prior to bedtime. Weight loss. Apr,Nicotine dependence, cigarettes, in remission (ICD-10 - F17.211) Continue abstinence Apr,OtherREo [facility] Other 02-27-2023 History of Present illness Narrative* Sudheer Haro MD - 05/21/2022 10:00 AM EST Images from the original note were not included. EMERGENCY TRIAGE, TREAT AND TRANSPORT (ET3) DOCUMENTATION OF TELEHEALTH VISIT Date / Time: 05/21/2022944 Name: Genny Barboza : 1940 SSN: (Not on file) EMS Agency: [facility] [x] Verbal consent obtained [] [...] the typically is not available at a [place] primary care physician's office.Patient declined using ambulance go to the ER, and her daughter who was present on scene will driveher the 4 minutes will take to get to the [place] [facility]. I advised her to call 911 [...] by: Sudheer Haro MD documented in this [id number] Evaluation note* Encounter Date Diagnosis Assessment Notes Treatment Notes Treatment Clinical Notes Apr, Nausea (ICD-10 - R11.0) InnaVirVax Other Discharge summary Author Reji Jett [facility] October 29, 2023 3:50pmNote Date/TimeAugust 2023 3:48pm[place] [address] Discharge Summary Signed Patient: Genny Barboza MR#: [id number] : 1940 Acct:[id number] Age/Sex: 83 / F Adm Date: 4 Loc: Room: [address] [place] [address]: Reji Frausto DO Copies to: DO Reji Soni DO~ Providers Date of Discharge: 10/29/23 Discharging Provider: Reji Frausto Primary Care Provider: Branden Fraga Consults: 10/27/23 19:53 Consult to Pulmonology Routine [...] female presented with acute inferior ST elevation GA on Friday, October 27, 2023 and underwent rapid revascularization of the proximal RCA with large 4 mm drug-eluting stent within 60 minutes. LV function is preserved. Shedoes have small vessel diagonal branch disease that is going to be treated conservatively. She had no postoperative for post GA complications, arrhythmia,heart failureor recurrent angina. She will be discharged this afternoon, currently on aspirin 81 daily, [id number] twice daily, metoprolol 25 twice daily, losartan [...] stent occurs in the first 2-3 weeks afterimplantation, you will need to take anticoagulants for at least 12-18 months. ANTICOAGULATION MEDICATION Aspirin 81mg once a day, Ticagrelor (Brilinta) 90mg twice a day STATIN MEDICATION Atorvastatin (Lipitor) 80 mg Drug-Eluting Stent (SHAILA) DO NOT discontinue Brilinta/Aspirin during the first few months regardless of what you are advised by your family doctor or pharmacist, without first calling the copra processor who implanted the stent. If you require [...] weight lifting, stair steppers, etc. until the copra processor approves these activities. Check with the copra processor on your first follow-up visit. CALL YOUR SKIVER SOCK LININGS: -If bleeding should occur from the catheter insertion site- apply pressure to the site then immediately call us. -Report any fever, redness, drainage, increased swelling, or firmness at the catheter insertion site. Some bruising or slight swelling may be present at thetime of discharge. -Should arm or leg become cold, numb, white, or blue, contact the copra processor immediately. -IF you should experience episodes of angina, e.g. chest discomfort, heaviness, tightness, pressureburning with or without radiation to the neck, jaw, arms or back- use 1 Nitrostat tablet under yourtongue every 5-10 minutes and up to three tablets. IF NO RELIEF, CALL 911 or GO TO THE NEAREST EMERGENCY ROOM. -Please notify our office if you have recurrent angina. -Cardiac Rehab Education Provided. Participation in the Cardiopulmonary Rehabilitation program is recommended. The attending copra processor or a nurse clinician should provide you with specificinstructions regarding activity, diet, medications, and further follow up for you. Follow the medication instructions provided on your discharge. If the dosages and instructions on this sheet differ from the dosage and instructions on the bottle, follow the instructions on the bottle. [facility] is not responsible for incorrect prescription information provided by thepatient during their visit. Do not stop your medications without consulting your health care provider. Please take the list with you to your next doctor's appointment. Instructions: Coronary Angioplasty (DC), Coronary Stenting (DC), Angina (DC), Chest Pain (DC), DrugEluting Stents, Know your Meds Prescriptions: New atorvastatin [...] DO [Active Staff - D.O.] - Branden Fraga DO [Primary Care Provider] - 3-5 Days Exam Physical Exam Vital Signs: Temp Pulse Resp BP Pulse Ox O2 Del Method O2 Flow Rate 98.1 F 60 28 H 145/77 H 97 Room Air 2 10/29/23 12:00 10/29/23 15:00 10/29/23 15:00 10/29/23 15:00 10/29/23 15:10/29/23 15:10/29/23 06:00 Const General: cooperative, healthy [...] % (Auto) 73.5, Lymph % (Auto) 15.8, [place] % (Auto) 9.4, Eos % (Auto) 0.6, Baso % (Auto) 0.7, Nucleat RBC Rel Count 0.1, Neut # (Auto) 5.9,Lymph # (Auto) 1.3, [place] # (Auto) 0.8, Eos # (Auto) 0.0, Baso # (Auto) 0.1, PHA Creatinine Clear 41.47, Sodium 138, Potassium 4.0, Chloride 109 H, Carbon Dioxide 24.3, Anion Gap 8.7, BUN 17, Creatinine 0.91, Est GFR (CKD-EPI) > 60.0, Glucose 105 H, Calcium 9.3 Documented By: Reji Frausto DO 10/29/23 1541 Signed By: <Electronically signed by Reji Frausto DO> 10/29/23 8929 [facility] Work Phone: Discharge summary Author Mendez Lambert [facility] Date/TimeSeptember 2024 1:27pm [place] [address] Discharge Summary Signed Patient: Genny Barboza MR#: [id number] : 1940 Acct:[id number] Age/Sex: 84 / F Adm Date: 5 Loc: Room: [address] [place] [address]: Mendez Lambert MD Copies to: DO Mendez Soni MD~ Providers Date of Discharge: 11/23/24 Discharging Provider: Mendez Lambert Primary Care Provider: Branden Fraga Discharge Diagnosis (1) Constipation: Final Diagnosis Final Discharge Diagnosis: 1. Constipation 2. Irritable bowel syndrome who was on dicyclomine Summary Hospital Course Hospital course: Patient is 84-year-old female who had history of colon cancer came to the emergency department withabdominal pain and also constipation. She was in outside hospital with a similar reason and she wassent with magnesium citrate but did not get [...] She was advised to take the medicine asneeded basis. Most likely her constipation was due to anticholinergic effect of dicyclomine. On the day of discharge patient was at baseline. Vital signs were stable. Physical exam was benign.The details of the hospital stay, hospital course, lab data, imaging studies, and consultants' recommendations can be found in the EHR of [facility]. The patient left hospital appropriately in stable condition. Patient has follow-up appointment with PCP in 7 days from the dayof discharge. Condition Condition at Discharge: Stable Time [...] Continuity of Care Document Health Concerns: A [facility] screening has identified you as FRAIL or [...] Four Ways to Beat the Frailty Risk [email or web address] Exam Physical Exam Vital Signs: Temp Pulse Resp BP Pulse Ox O2 Del Method 98.0 F 71 18 118/76 100 Room Air 11/23/24 09:00 11/23/24 09:00 11/23/24 09:00 11/23/24 09:00 11/23/24 09:00 11/23/24 09:00 Diagnostic Studies Completed and Pending Studies Labs on day of discharge: 11/22/24 20:09: Urine Color Colorless, Urine Appearance Clear, Urine pH 5.5, Ur Specific [place] 1.005, Urine Protein Negative, Urine Glucose (UA) [...] % (Auto) 63.5, Lymph % (Auto) 20.6, [place] % (Auto) 13.9, Eos % (Auto) 0.9, Baso % (Auto) 1.1, Nucleat RBC Rel Count 0.1, Neut # (Auto) 4.8, Lymph # (Auto) 1.5, [place] # (Auto) 1.0 H, Eos # (Auto) [...] Mendez Lambert MD> 11/23/24 1327 [facility] Work Phone: Evaluation note* Diagnosis Hypertensive urgency- Primary documented [facility] encounter [facility] note[facility] InformationNort Qwilt Other Evaluation noteNo assessment information available [facility] Work Phone: Evaluation note* Diagnosis Onset Date Resolution Status Change in bowel habits acutePrimary hypertensionacuteRotator cuff arthropathy of right shoulderacuteHx of malignant neoplasm of colonnoneactivePain in right shouldernoneactive [facility] Work Phone: evaluation note* Diagnosis Onset Date Resolution Status Change in bowel habits acutePrimary hypertensionacuteRotator cuff arthropathy of right shoulderacuteHx of malignant neoplasm of colonnoneactivePain in right shouldernoneactivePrimary hypertensionacuteRotator cuff arthropathy of right shoulderacutePain in right shouldernoneactiveChange in bowel habitsacute [facility] Work Phone: Evaluation note* Diagnosis Onset Date Resolution Status ST elevation myocardial infarction (STEM I) of inferior wall acute [facility] Work Phone: Evaluation note* Diagnosis Onset Date Resolution Status ASHD (arteriosclerotic heart disease) acuteHypercholesterolemiaacuteLung noduleacuteMedication side effectsacute Nicotine addictionacutePrimary hypertensionacuteShortness of breathacute [facility] Work Phone: Evaluation note* Diagnosis Onset Date Resolution Status ASHD (arteriosclerotic heart disease) acuteHypercholesterolemiaacuteIBS (irritable bowel syndrome)acuteLung nodule acuteNicotine addictionacutePrimary hypertensionacuteASHD (arteriosclerotic heart disease)acuteHypercholesterolemiaacuteIBS (irritable bowel syndrome)acute Primary hypertensionacute [facility] Work Phone: Evaluation note* Diagnosis Onset Date Resolution Status ASHD (arteriosclerotic heart disease) acuteHypercholesterolemiaacuteIBS (irritable bowel syndrome)acuteLung nodule acuteNicotine addictionacutePrimary hypertensionacuteASHD (arteriosclerotic heart disease)acuteHypercholesterolemiaacuteIBS (irritable bowel syndrome)acute Primary hypertensionacuteDiarrheaacuteFecal urgencyacuteHistory of colon cancer acuteIBS (irritable bowel syndrome)acuteIntermittent abdominal painacute [facility] Work Phone: Evaluation note* Diagnosis Coronary artery disease, unspecified vessel or lesion type, unspecified whether angina present, unspecified whether [place] or transplanted heart History of PTCA Postsurgical percutaneous transluminal coronary angioplasty status History of ST elevation myocardial infarction (STEMI) Shortness of breath Former smoker Personal history of tobacco use, presenting hazards to health BMI 26.0-26.9,adult Hyperlipidemia, unspecified hyperlipidemia type documented in this encounter [facility] Work Phone: Evaluation note* Diagnosis Near syncope Fatigue, unspecified type History of PTCA Postsurgical percutaneous transluminal coronary angioplasty status Essential hypertension Unspecified essential hypertension History of ST elevation myocardial infarction (STEMI) Shortness of breath Coronary artery disease, unspecified vessel or lesion type, unspecified whether angina present, unspecified whether [place] or transplanted heart Former smoker Personal history of tobacco use, presenting hazards to health BMI 27.0-27.9,adult documented in this encounter [facility] Work Phone: Evaluation note* Diagnosis Coronary artery disease, unspecified vessel or lesion type, unspecified whether angina present, unspecified whether [place] or transplanted heart History of ST elevation myocardial infarction (STEMI) History of PTCA Postsurgical percutaneous transluminal coronary angioplasty status Hyperlipidemia, unspecified hyperlipidemia type Essential hypertension Unspecified essential hypertension BMI 27.0-27.9,adult Former smoker Personal history of tobacco use, presenting hazards to health documented in this encounter [facility] Work Phone: Evaluation note* Diagnosis Hyperlipidemia, unspecified hyperlipidemia type- Primary Coronary artery disease, unspecified vessel or lesion type, unspecified whether angina present, unspecified whether [place] or transplanted heart History of ST elevation myocardial infarction (STEMI) Essential hypertension Unspecified essential hypertension BMI 27.0-27.9,adult Fatigue, unspecified type Shortness of breath documented in this encounter [facility] Work Phone: Evaluation note* Diagnosis Hyperlipidemia, unspecified hyperlipidemia type- Primary Coronary artery disease, unspecified vessel or lesion type, unspecified whether angina present, unspecified whether [place] or transplanted heart History of ST elevation myocardial infarction (STEMI) Essential hypertension Unspecified essential hypertension BMI 27.0-27.9,adult Fatigue, unspecified type Shortness of breath Essential hypertension- Primary Unspecified essential hypertension Fatigue, unspecified type BMI 26.0-26.9,adult documented in this encounter [facility] Work Phone: Evaluation note* Diagnosis Hyperlipidemia, unspecified hyperlipidemia type- Primary Coronary artery disease, unspecified vessel or lesion type, unspecified whether angina present, unspecified whether [place] or transplanted heart History of ST elevation myocardial infarction (STEMI) Essential hypertension Unspecified essential hypertension BMI 27.0-27.9,adult Fatigue, unspecified type Shortness of breath Essential hypertension- Primary Unspecified essential hypertension Fatigue, unspecified type BMI 26.0-26.9,adult BMI 27.0-27.9,adult- Primary Essential hypertension Unspecified essential hypertension Localized edema Edema documented in this encounter [facility] Work Phone: Evaluation note* Diagnosis Hyperlipidemia, unspecified hyperlipidemia type- Primary Coronary artery disease, unspecified vessel or lesion type, unspecified whether angina present, unspecified whether [place] or transplanted heart History of ST elevation myocardial infarction (STEMI) Essential hypertension Unspecified essential hypertension BMI 27.0-27.9,adult Fatigue, unspecified type Shortness of breath Essential hypertension- Primary Unspecified essential hypertension Fatigue, unspecified type BMI 26.0-26.9,adult BMI 27.0-27.9,adult- Primary Essential hypertension Unspecified essential hypertension Localized edema Edema History of ST elevation myocardial infarction (STEMI)- Primary Coronary artery disease, unspecified vessel or lesion type, unspecified whether angina present, unspecified whether [place] or transplanted heart Hyperlipidemia, unspecified hyperlipidemia type Essential hypertension Unspecified essential hypertension BMI 27.0-27.9,adult documented in this encounter [facility] Work Phone: History and physical note Author Reji Frausto [facility] October 27, 2023 6:21pmNote Date/TimeAugust 2023 5:51pm[place] [address] Cardiology H&P Signed Patient: Genny Barboza MR#: [id number] : 1940 Acct:[id number] Age/Sex: 83 / F Adm Date: 4 Loc: Room: Type: [facility] Attending Dr: Reji Frausto DO Copies to: [...] nurse practitioner; appropriateupstream antiplatelet and Antithrombin therapies administeredunder my direction, patient arrived in [facility] at 1756 and underwent primary PCI at [...] critical care time were devoted to ER staff,Child Psychologist staff, nursing staff, patient and family both pre and post procedurally. Review of Systems Review of Systems All other systems reviewed & are negative unless noted below or in HPI Constitutional Constitutional: Reports as per HPI Cardiovascular Cardiovascular: Reports as per HPI and Reports chest pain at rest [facility] Medical History Lung nodule CT: [...] (sod picosulf-mag ox-citric ac) 175 ml PO DAILYBowel Prep 2 doses #350 mL 07/05/23 [Rx] [...] x10E3/uL Lymph # (Auto) 2.2 (1.00-4.8) x10E3/uL [place] # (Auto) 0.7 (0.0-0.8) x10E3/uL Eos # [...] results cardiology: sinus rhythm EKG shows: bradycardia GA, pacemaker, normal Myocardial infarction: inferior GA (acute or recent) A&P - Cardiology (1) ST elevation myocardial infarction (STEMI) of inferior wall: Code(s): I21.19 - ST elevation (STEMI) myocardial infarction involving other coronary artery of inferior wall Plan Proceed with emergency cath and PCI Documented By: Reji Frausto DO 10/27/23 2688 Signed By: <Electronically signed by Reji Frausto DO> 10/27/23 1550 [facility] Work Phone: History general Narrative - Reported* Type Description Date Medical History Dysuria Medical HistoryLipoma of right lower extremityMedical HistorySecondary spontaneous pneumothoraxMedical HistoryNicotine dependence, cigarettes, in remissionMedical HistoryAbdominal wall massMedical HistoryGastroesophageal reflux disease with esophagitis without hemorrhageMedical HistoryAbdominal pain, left lower quadrantMedical HistoryAcute bilateral low back pain without sciaticaMedical HistoryHistory of small bowel obstructionMedical History Pulmonary noduleMedical HistoryEstrogen deficiencyMedical HistoryTinea corporis Medical HistoryCOVIDMedical HistoryMUSCLE MASSSurgical HistoryCOLONOSCOPY 1996,2000,2003,2006,2012Surgical HistoryEXPLORATORY LAP, LYSIS OF ADHESIONS Surgical HistoryRECTOVAGINAL FISTULA REPIARSurgical HistoryTAHSurgical History COLON RESECTIONSurgical HistoryCYSTOSCOPYHospitalization HistorySEE SURGICAL HX InnaVirVax Other Hospital Discharge instructions Additional Instructions We evaluated you for your shortness of breath. We discussed this is most likely due to your Brilinta. Please see your copra processor this afternoon at your previously scheduled appointment. Please follow close with your primary care doctor as well. Please return to the emergency department if you develop any worsening or concerning symptoms.[facility] Work Phone: Reason for referral (narrative)* Consultation (Routine) - AuthorizedSpecialtyDiagnoses / ProceduresReferred By Contact Referred To ContactCardiology Diagnoses Coronary artery disease, unspecified vessel or lesion type, unspecified whether angina present, unspecified whether [place] or transplanted heart Procedures Follow Up In Cardiology Inderjit Frausto DO [address] [place] [address] Inderjit Frausto DO [address] [address], [address] [address] Referral IDStatusReasonStart DateExpiration DateVisits RequestedVisits [id number]/15/20248/ * Consultation (Routine) - AuthorizedSpecialtyDiagnoses / ProceduresReferred By ContactReferred To ContactCardiac Rehabilitation Diagnoses Coronary artery disease, unspecified vessel or lesion type, unspecified whether angina present, unspecified whether [place] or transplanted heart History of PTCA History of ST elevation myocardial infarction (STEMI) Inderjit Frausto DO [address] [facility] [address] [place] [address] Referral IDStatusReasonStart DateExpiration DateVisits RequestedVisits [id number] Specialty Services Required / Scheduling Instructions Julius [facility] Work Phone: Reason for referral (narrative)No reason for referral information availablePromedica [facility] Work Phone: Summary Purpose Family History No Family History Records Found Relationship Condition Age at Onset Recorded Date/T megan father Unknown family memberDeceasedUnknownNot SpecifiedDeceasedUnknown Relationship Condition Age at Onset Recorded Date/T megan father Unknown family memberDeceasedUnknownmotherDeceasedUnknown Advance Directives No Advanced Directives Records Found [...] Time Advance Directives No August 18 9:23am Advance Directive Response Recorded Date/ Time Advance Directives No August 18 8:23am Chief Complaint and Reason for Visit Chief Complaint Wellness Ibs Shoulder Pain R91.1 Chief Complaint Ibs Shoulder Pain R91.1 2 week follow up Shoulder InjectionReason for VisitChange in bowel habits Primary hypertension Rotator cuff arthropathy of right shoulder Hx of malignant neoplasm of colon Pain in right shoulder Chief Complaint Ibs Shoulder Pain R91.1 2 week follow up Shoulder Injection REF BY DR. FRAGA HX OF COLON CA/BOWEL HABIT CHANGESReason for VisitChange in bowel habits Primary hypertension Rotator cuff arthropathy of right shoulder Hx of malignant neoplasm of colon Pain in right shoulder Primary hypertension Rotator cuff arthropathy of right shoulder Pain in right shoulder Change in bowel habits Chief Complaint Chest pain Reason for Visit ST elevation myocard ial infarction (STEMI) of inferior wall Chief Complaint Chest pain Chest painReason for VisitST elevation myocardial infarction (STEMI) of inferior wall Chief Complaint Chest pain Chest pain sob, poss hbpReason for VisitST elevation myocardial infarction (STEMI) of inferior wall Chief Complaint Chest pain Chest pain sob, poss hbp Amb Documentation hospital follow upReason for VisitASHD (arteriosclerotic heart disease) Hypercholesterolemia Lung nodule Medication side effects Nicotine addiction Primary hypertension Shortness of breath Chief Complaint Chest pain Chest pain sob, poss hbp Amb Documentation hospital follow up BP concerns/flu shotReason for VisitASHD (arteriosclerotic heart disease) Hypercholesterolemia IBS (irritable bowel syndrome) Lung nodule Nicotine addiction Primary hypertension ASHD (arteriosclerotic heart disease) Hypercholesterolemia IBS (irritable bowel syndrome) Primary hypertension Chief Complaint Chest pain Chest pain sob, poss hbp Amb Documentation hospital follow up BP concerns/flu shot 4 month follow up post ColonReason for VisitASHD (arteriosclerotic heart disease) Hypercholesterolemia IBS (irritable bowel [...] up March 11, 2024 1:00pm Ref: Dr. Fraga, Lung Mass March 12, 2024 10:33am right shoulder injection May 12, 2024 1:24pm Reason for Visit Admit Date ASHD (arteriosclerotic heart disease) De yosvanyber 2023 3:47pm Hypercholesterolemia March 09, 2024 3:47pm IBS (irritable bowel syndrome) March 09, 2024 3:47pm Lung nodule March 09, 2024 3:47pm Medicare annual wellness visit, subseque nt March 09, 2024 3:47pm Nicotine addiction March 09, 2024 3:47pm Primary hypertension March 09, 2024 3:47pm Screening mammogram for breast cancer De selena 2023 3:47pm Diarrhea March 11, 2024 1:00pm [...] of T11 vertebra Oct payam 2024 11:25am Chief Complaint Admit Date MRI results November 04, 2024 1: 56pm Amb Documentation November 09, 2024 11 :45am stomach extended November 16, 2024 2: 40pm ER [facility] RT SHOULDER INJURY WX October 11:26am [facility] er f/u had a fall November 19, 2024 9:58am constipation November 22, 2024 10 :23pm Amb Documentation November 26, 2024 10:33am Constipation December 01, 2024 1:22pm [facility] [place] December 03, 2024 11:19am [facility] 3 WEEKS December 14, 2024 11:16am MRI results December 29, 2024 11 :25am 6 week follow up/constipation January 122024 11:18am Reason for Visit Admit Date Cervical spondylosis [...] of T11 vertebra Oct payam 2024 11:25am Constipation January 12, 2025 1 1:18am Chief Complaint Admit Date MRI results November [...] January 12, 2025 11:18am Reason for Referral SpecialtyDiagnoses / ProceduresReferred By ContactReferred To Contact Diagnoses Near syncope Fatigue, unspecified type Procedures ECG 12 Lead Inderjit Frausto, DO [address] [facility] 2, [place] [id number] Referral IDStatusReMountain [facility] Hospital DateExpiration DateVisits RequestedVisits [id number]/[id number]/[id number] Additional Source Comments Reason for Visit (unrecogniz ed section and content) ReasonCommentsHeadacheHypertensionReasonCommentsTCMMI on 10/27/23 at [facility] CommentsFollow-upDyspnea, near syncope, med concernsSpecialtyDiagnoses / ProceduresReferred By ContactReferred To Contact Diagnoses Near syncope Fatigue, unspecified type Procedures ECG 12 Lead Inderjit Frausto, DO [address] [facility] [address], [place] [id number] Referral IDStatusReasonStleland DateExpiration DateVisits RequestedVisits [id number]/27/[id number]/[id number] Artery DiseaseSpecialtyDiagnoses / ProceduresReferred By ContactReferred To ContactCardiology Diagnoses Coronary artery disease, unspecified vessel or lesion type, unspecified whether angina present, unspecified whether [place] or transplanted heart Procedures Follow Up In Cardiology Inderjit Frausto, [address] [place] [address] 2, [place] [address] Phone: tel: fax: Inderjit Frausto, DO [address] [facility] 2, [place] [address] Phone: tel: fax: Referral IDStatusReasonStart DateExpiration DateVisits RequestedVisits [id number] [id number] Shortness of breath, fatigueReasonCommentsFollow-up1 months Coronary artery disease, unspecified vessel or lesion type, unspecified whether angina present, unspecified whether [place] or transplanted heartSpecialtyDiagnoses / Procedures Referred By ContactReferred To ContactCardiology Diagnoses Fatigue, unspecified type Procedures Follow Up In Cardiology Vanessa Dave, PATIENT COORDINATOR-BELL [employer]ET [address] [facility] [address], [place] [address] Phone: tel: fax: Referral IDStatusReasonStart DateExpiration DateVisits RequestedVisits [id number] month Follow up for HypertensionSpecialtyDiagnoses / ProceduresReferred By Contact Referred To ContactCardiology Diagnoses Essential hypertension Procedures Follow Up In Cardiology Vanessa Dave, PATIENT COORDINATOR-BELL VALET [address] [facility] [address], [place] [address] Phone: tel: fax: Referral IDStatusReasonStart DateExpiration DateVisits RequestedVisits [id number] month Follow up for HypertensionSpecialtyDiagnoses / ProceduresReferred By Contact Referred To ContactCardiology Diagnoses Coronary artery disease, unspecified vessel or lesion type, unspecified whether angina present, unspecified whether [place] or transplanted heart Procedures Follow Up In Cardiology Inderjit Frausto, [address] [facility], [address] [address] Phone: tel: fax: Vanessa Dave, PATIENT COORDINATOR-BELL VALET [address] [facility], [facility] [address] [place] [address] Phone: tel: fax: Referral IDStatusReasonStart DateExpiration DateVisits RequestedVisits [id number] INFORMATION SOURCE (unrecogn ized section and content) DATE CREATED AUTHOR 05/23/2022 [facility] DATE CREATED AUTHOR AUTHOR'S ORGANIZ ATION [facility]/25/2022 [facility] DATE CREATED AUTHOR AUTHOR'S ORGANIZ ATION 04/25/2023 [facility] EPIC DATE CREATED AUTHOR AUTHOR'S ORGANIZ ATION 11/28/2024 [facility] DATE CREATED AUTHOR AUTHOR'S ORGANIZ ATION 01/29/2025 [facility] [employer] Teams (unrecognized sec tion and content) Team Status: Active Member Role Status Dates Branden Fraga DO Primary Care Provider Active Team Status: Active Member Role Status Dates Branden Fraga DO Primary Care Provider Active Start: October 03, 2024 Laurie Mills MDAttkirti ProviderActiveStart: October 03, 2024 Team Status: Inactive Member Role Status Dates Laurie Mills MD Attending Provider Active Sta rt: October 03, 2024 End: October 03, 2024 Team Status: Inactive Member Role Status Dates Branden Fraga DO Primary Care Provider Active Start: November 04, 2024 End: November 04Ko Bennett ProviderActiveStart: November 04, 2024 End: November 04, 2024 Team Status: Active Member Role Status Dates Branden Fraga DO Primary Care Provider Active Start: November 09, 2024 Elli Masterson ProviderActiveStart: November 09, 2024 Team Status: Inactive Member Role Status Dates Branden Fraga DO Primary Care Provider Active Start: November 16, 2024 End: November 16enmary ann Fraga DOAttending ProviderActiveStart: November 16, 2024 End: November 16, 2024 Team Status: Inactive Member Role Status Dates Branden Fraag DO Primary Care Provider Active Start: November 18, 2024 End: November 18, 2024Jusantiago Damon DOAttending ProviderActiveStart: November 18, 2024 End: November 18, 2024 Team Status: Inactive Member Role Status Dates Branden Fraga DO Primary Care Provider Active Start: November 19, 2024 End: November 19, 2024Roxane Granda APRNAttending ProviderActiveStart: November 19, 2024 End: November 19, 2024 Team Status: Inactive Member Role Status Dates Branden Fraga DO Primary Care Provider Active Start: November 22, 2024 End: November 23, 2024Delfino Castellano ProviderActiveStart: November 22, 2024 End: November 23ndremaximilian Elias MDAdmit ProviderActiveStart: November 22, 2024 End: November 23, 2024Musadarsh Lambert , MDAttending ProviderActiveStart: November 22, 2024 End: November 23, 2024 Team Status: Active Member Role Status Dates Branden Fraga DO Primary Care Provider Active Start: November 26, 2024 Maura Perez CMAAttending ProviderActiveStart: November 26, 2024 Team Status: Inactive Member Role Status Dates Branden Fraga DO Primary Care Provider Active Start: December 01, 2024 End: December 01, 2024Shmuel Martinez APRNAttenmonique ProviderActiveStart: December 01, 2024 End: December 01, 2024 Team Status: Inactive Member Role Status Dates Branden Fraga DO Primary Care Provider Active Start: December 03, 2024 End: December 03enmary ann Fraga DOAttending ProviderActiveStart: December 03, 2024 End: December 03, 2024 Team Status: Inactive Member Role Status Dates Branden Fraga DO Primary Care Provider Active Start: December 14, 2024 End: December 14, 2024Justus Damon DOAttending ProviderActiveStart: December 14, 2024 End: December 14, 2024 Team Status: Active Member Role Status Dates Branden Fraga DO Primary Care Provider Active Start: December 18, 2024 ClydeYandy Chan Marielleending ProviderActiveStart: December 18, 2024 Team Status: Inactive Member Role Status Dates Branden Fraga DO Primary Care Provider Active Start: December 29, 2024 End: December 29, 2024Roxane Granda APRNAttenmonique ProviderActiveStart: December 29, 2024 End: December 29, 2024 Team Status: Inactive Member Role Status Dates Branden Fraga DO Primary Care Provider Active Start: July 20, 2024 End: July 20Marielle Simmonsending ProviderActiveStart: July 20, 2024 End: July 20, 2024 Team Status: Active Member Role Status Renetta Fraga DO Primary Care Provider Active Start: August 05, 2024 Charlotte Becerril ProviderActiveStart: August 05, 2024 Team Status: Inactive Member Role Status Renetta Fraga DO Primary Care Provide r, Attending Provider Active Start: August 19, 2024 End: August 19, 2024 Team Status: Active Member Role Status Renetta Fraga DO Primary Care Provide r, Attending Provider Active Start: March 06, 2024 Team Status: Inactive Member Role Status Renetta Fraga DO Primary Care Provide r, Attending Provider Active Start: March 09, 2024 End: March 09, 2024 Team Status: Inactive Member Role Status Renetta Fraga DO Primary Care Provider Active Start: March 11, 2024 End: March 11Marielle Simmonsending ProviderActiveStart: March 11, 2024 End: March 11, 2024 Team Status: Inactive Member Role Status Renetta Fraga DO Primary Care Provider Active Start: March 12, 2024 End: March 12finn Brambila MDAttending ProviderActive Start: March 12, 2024 End: March 12, 2024 Team Status: Active Member Role Status Renetta Fraga DO Primary Care Provide r, Attending Provider Active Start: April 28, 2024 Team Status: Inactive Member Role Status Renetta Fraga DO Primary Care Provide r, Attending Provider Active Start: May 12, 2024 End: May 12, 2024 Team Status: Inactive Member Role Status Dates Doe Álvarez PA-C Emergency Provider Active Start: October 27, 2023 End: October 28luanne Fraga , DOPrimary Care ProviderActiveStart: October 27, 2023 End: October 29, 2023W Celestino Frausto , DOAdmit Provider, Attending Provider ActiveStart: October 27, 2023 End: October 29, 2023Sobia Okeefe [facility] ProviderActiveStart: October 27, 2023 End: October 29, 2023 Team Status: Active Member Role Status Dates Doe Álvarez PA-C Emergency Provider Active Start: October 28, 2023 Branden Fraga , DOPrimary Care ProviderActiveStart: October 28, 2023 W Celestino Frausto DOAdmit Provider, Other ProviderActiveStart: October 28, 2023 Sobia Okeefe MDAttending Provider, Other ProviderActiveStart: October 28, 2023 Team Status: Active Member Role Status Dates Doe Álvarez PA-C Emergency Provider Active Start: October 27, 2023 Branden Fraga , DOPrimary Care ProviderActiveStart: October 27, 2023 W Celestino Frausto , DOAdmit Provider, Attending ProviderActiveStart: October 27, 2023 Team Status: Inactive Member Role Status Dates Branden Fraga DO Attending Provider Active Sta rt: February 08, 2023 End: February 08, 2023 Team Status: Inactive Member Role Status Renetta Fraga DO Attending Provider Active Sta rt: March 26, 2023 End: March 26, 2023 Team Status: Inactive Member Role Status Dates Branden Fraga DO Attending Provider Active Sta rt: April [...] Branden Fraga DO Primary Care Provider Active Start: June 20, 2023 End: June 19Palmer Simmons ProviderActiveStart: June 20, 2023 End: June 20, 2023 Team Status: Active Member Role Status Dates Doe Álvarez PA-C Emergency Provider Active Start: October 28, 2023 Quita Soni Care ProviderActiveStart: October 28, 2023 Reji Frausto , DOAdmit Provider, Other ProviderActiveStart: October 28, 2023 Sobia Okeefe , MDAttending Provider, Other ProviderActiveStart: October 28, 2023 Marito Brambila , MDActiveStart: October 28, 2023 Team Status: Inactive Member Role Status Dates Branden Fraga DO Primary Care Provider Active Start: November 05, 2023 End: November 04Gorge Galdamez ProviderActiveStart: November 05, 2023 End: November 05, 2023 Team Status: Active Member Role Status Dates Branden Fraga DO Primary Care Provider Active Start: November 05, 2023 Diane Avendano ProviderActiveStart: November 05, 2023 Team Status: Inactive Member Role Status Dates Branden Fraga DO Primary Care Provide r, Attending Provider Active Start: November 12, 2023 End: November 12, 2023 Team Status: Inactive Member Role Status Renetta Fraga DO Primary Care Provide r, Attending Provider Active Start: December 04, 2023 End: December 04, 2023 Team Status: Inactive Member Role Status Dates Branden Fraga DO Primary Care Provider Active Start: December 12, 2023 End: December 11Palmer Simmons ProviderActiveStart: December 12, 2023 End: December 12, 2023Team MemberRelationshipSpecialtyStart DateEnd Date Branden Fraga DO [address] [place] [address] PCP - GeneralInternal Medicine11/07/23 Maura Andres, RN Care ManagerCase Management10/30/23Team MemberRelationshipSpecialtyStart DateEnd Date Branden Fraga DO [address] [place] [address] PCP - GeneralInternal Medicine11/07/23 Maura Andres, RIOS Care ManagerCase Management10/30/23Team MemberRelationshipSpecialtyStart DateEnd Date Branden Fraga DO [address] [place] [address] [facility] - [facility] [place]11/07/23Team MemberRelationshipSpecialtyStart Date End Date Branden Fraga DO [address] [place] [address] PCP - [facility]11/07/23 Team Status: Inactive Member Role Status Dates Branden Fraga DO Primary Care Provider Active Start: August 19, 2024 End: August 19luanne Fraga DOAttkirti ProviderActiveStart: August 19, 2024 End: August 19, 2024 Team Status: Inactive Member Role Status Dates Branden Fraga DO Primary Care Provider Active Start: September 29, 2024 End: September 29[facility] Palmer Mclaughlin ProviderActiveStart: September 29, 2024 End: September 29, 2024Team MemberRelationshipSpecialtyStart DateEnd Date Branden Fraga DO [address] [place] [place] [address] [facility] - [facility]11/07/23Team MemberRelationshipSpecialtyStart Date End Date Branden Fraga DO [address] [place] [address] PCP - [facility] Hospitalnal Medicine11/07/23 Team Status: Active Member Role Status Dates Branden Fraga DO Primary Care Provider Active Start: November 22, 2024 Delfino Castellano ProviderActiveStart: November 22, 2024 Benjamin Elias MDAdmit ProviderActiveStart: November 22, 2024 Benjamin Elias MDAttending ProviderActiveStart: November 22, 2024 Team Status: Active Member Role/Relationship Status Dates Branden Fraga DO Primary Care Provider Active Team Status: Inactive Member Role/Relationship Status Dates Branden Fraga DO Primary Care Provider Active Start: November 04, 2024 End: November 04enmary ann Fraga DOAttending ProviderActiveStart: November 04, 2024 End: November 04, 2024 Team Status: Active Member Role/Relationship Status Dates Branden Fraga DO Primary Care Provider Active Start: November 09, 2024 Maura Perez CMAAttending ProviderActiveStart: November 09, 2024 Team Status: Inactive Member Role/Relationship Status Dates Branden Fraga DO Primary Care Provider Active Start: November 16, 2024 End: November 16enmary ann Fraga DOAttending ProviderActiveStart: November 16, 2024 End: November 16, 2024 Team Status: Inactive Member Role/Relationship Status Dates Branden Fraga DO Primary Care Provider Active Start: November 18, 2024 End: November 18, 2024Jusantiago Damon DOAttending ProviderActiveStart: November 18, 2024 End: November 18, 2024 Team Status: Inactive Member Role/Relationship Status Dates Branden Fraga DO Primary Care Provider Active Start: November 19, 2024 End: November 19, 2024Charlotte Kraus ProviderActiveStart: November 19, 2024 End: November 19, 2024 Team Status: Inactive Member Role/Relationship Status Dates Branden Fraga DO Primary Care Provider Active Start: November 22, 2024 End: November 23, 2024Delfino Castellano ProviderActiveStart: November 22, 2024 End: November 23ndscarlett Elias MDAdmit ProviderActiveStart: November 22, 2024 End: November 23, 2024Mendez Lambert MDAttending ProviderActiveStart: November 22, 2024 End: November 23, 2024 Team Status: Active Member Role/Relationship Status Dates Branden Fraga DO Primary Care Provider Active Start: November 26, 2024 Maura Perez CMAAttending ProviderActiveStart: November 26, 2024 Team Status: Inactive Member Role/Relationship Status Dates Branden Fraga DO Primary Care Provider Active Start: December 01, 2024 End: December 01, 2024Charlotte Chilel ProviderActiveStart: December 01, 2024 End: December 01, 2024 Team Status: Inactive Member Role/Relationship Status Dates Branden Fraga DO Primary Care Provider Active Start: December 03, 2024 End: December 03enmary ann Fraga DOAttending ProviderActiveStart: December 03, 2024 End: December 03, 2024 Team Status: Inactive Member Role/Relationship Status Dates Branden Fraga DO Primary Care Provider Active Start: December 14, 2024 End: December 14, 2024Justus Damon DOAttending ProviderActiveStart: December 14, 2024 End: December 14, 2024 Team Status: Active Member Role/Relationship Status Dates Branden Fraga DO Primary Care Provider Active Start: December 18, 2024 Shannon Chan MDAttending ProviderActiveStart: December 18, 2024 Team Status: Inactive Member Role/Relationship Status Dates Branden Fraga DO Primary Care Provider Active Start: December 29, 2024 End: December 29, 2024Farhat Kraustenmonique ProviderActiveStart: December 29, 2024 End: December 29, 2024 Team Status: Inactive Member Role/Relationship Status Dates Branden Fraga DO Primary Care Provider Active Start: January 12, 2025 End: January 12, 2025Charlotte Chilel ProviderActiveStart: January 12, 2025 End: January 12, 2025 Team Status: Inactive Member Role/Relationship Status Dates Branden Fraga DO Primary Care Provider Active Start: January 27, 2025 End: January 27, 2025Charlotte Chilel ProviderActiveStart: January 27, 2025 End: January 27, 2025Team MemberRelationshipSpecialtyStart DateEnd Date Brand[place] [address] PCP - GeneralInternal Medicine11/07/23 Goals (unrecognized section and content) Type Treatment [...] BE BASED ON THE PRIMARY CLINICAL RECORDS. [facility] [employer] [facility]. provides no warranty or guarantee of the accuracy or completeness of information in this document.
[2025-03-04 13:02] LABS: Hematocrit 40.3 % (36.0-48.0); Hemoglobin 13.1 g/dL (12.0-16.0); Immature Granulocytes Abs Auto 0.00 10^3/uL (0.00-0.03); Immature Granulocytes Pct Auto 0.0 % (0.0-0.5); Lymphocytes Absolute Auto 1.5 10^3/uL (1.2-3.8); Mean Corpuscular HGB Conc 32.5 g/dL (29.9-35.2); Mean Corpuscular Hemoglobin 32.3 pg (26.7-34.0); Mean Corpuscular Volume 99.3 fL (81.0-99.0); Platelet Count 245 10^3/uL (150-450); Red Blood Count 4.06 10^6/uL (4.20-5.40); White Blood Count 5.7 10^3/uL (4.0-11.0)
[2025-03-04 15:19] LABS: Alanine Aminotransferase 31 U/L (14-59); Albumin Globulin Ratio 1.1; Albumin Level 3.6 g/dL (3.4-5.0); Alkaline Phosphatase 99 U/L (46-116); Anion Gap 11.1; Aspartate Amino Transferase 20 U/L (15-37); Blood Urea Nitrogen 16.0 mg/dL (7.0-18.0); Calcium 9.4 mg/dL (8.5-10.1); Carbon Dioxide 27.7 mmol/L (21.0-32.0); Chloride 104 mmol/L (98-107); Estimated GFR (African America >60 (>=60 mL/min/1.73m^2); Estimated GFR (Non-African Ame >60 (>=60 mL/min/1.73m^2); Globulin 3.2 g/dL; Glucose 95 mg/dL (74-106); Potassium 3.8 mmol/L (3.5-5.1); Sodium 139 mmol/L (136-145); Total Protein 6.8 g/dL (6.4-8.2)
== END 2025-03-04 12:32 | disposition home or self-care (01) ==
LOC: LAB 12:33
PROVIDERS: PCP Internal Medicine; Visit Provider Internal Medicine
DX: I25.10 Atherosclerotic heart disease of native coronary artery without angina pectoris (principal); I10 Essential (primary) hypertension; E55.9 Vitamin D deficiency, unspecified
CPT/HCPCS: 36415; 80053; 82306; 85025